=== PATIENT | female | born 1940 | race Caucasian/White ===

== ENCOUNTER → 2017-11-23 13:00 | Outpatient (CLI) | payer MEDICARE, SELFPAY ==
[2017-11-23 12:45] VITALS: BP 120/86; BMI 35.2
--- NOTE | 2017-11-23 13:03 | RAD_ITS ---
STUDY: X-RAY CHEST REASON FOR EXAM: Female, 77 years old. Cough TECHNIQUE: PA and lateral views of the chest. COMPARISON: Chest x-ray on November 05, 2015. FINDINGS: The lungs are clear and expanded. There is no demonstrated pleural abnormality. There is mild cardiac enlargement. Normal mediastinum and twila. Normal visualized pulmonary arteries. There is atherosclerotic calcification of the aortic arch with tortuosity. Normal visualized thoracic spine. Normal visualized ribs, clavicles, and shoulders. There is no demonstrated abnormality of the visualized soft tissue structures of the upper abdomen. RAD/Chest PA and Lateral IMPRESSION: Mild cardiomegaly. No signs of acute disease. Improved pulmonary vascular congestion since the last examination Electronically Signed: Jonh Vidales MD, FACR at 13:24 EST , Service support ,
== END ==
PROVIDERS: Family Provider Family Medicine Geriatric Medicine; PCP Family Medicine Geriatric Medicine; Visit Provider Physician Assistant
DX: R05 Cough (principal)
CPT/HCPCS: 71046

== ENCOUNTER → 2017-12-17 12:31 | Outpatient (CLI) | payer MEDICARE, SELFPAY ==
--- NOTE | 2017-12-17 12:33 | RAD_ITS ---
STUDY: X-RAY - ACUTE ABDOMINAL SERIES REASON FOR EXAM: Female, 77 years old. Lower abdominal pelvic pain and diarrhea. TECHNIQUE: Single view of the chest. Supine, and erect view(s) of the abdomen were obtained. COMPARISON: None. FINDINGS: Elevation of the right hemidiaphragm. There is an abundance of fecal material throughout the colon. Calcified splenic artery. Normal visualized osseous structures. Atherosclerotic calcification. RAD/Abd Inc Decub and/or Erect IMPRESSION: Large amount of fecal material is seen in the colon. Electronically Signed: Crow Avalos MD at 13:21 EST Tel [phone], Service support ,
== END ==
PROVIDERS: Family Provider Family Medicine Geriatric Medicine; PCP Family Medicine Geriatric Medicine; Visit Provider Family Medicine Geriatric Medicine
DX: R10.9 Unspecified abdominal pain (principal); R19.7 Diarrhea, unspecified
CPT/HCPCS: 74019

== ENCOUNTER → 2017-12-17 13:35 | Outpatient (CLI) | payer MEDICARE, SELFPAY ==
[2017-12-17 15:27] LABS: Absolute Lymphocyte Count 2.29 X10^3/ul (0.83-4.51); Absolute Neutrophil Count 5.5 X10^3/uL (2.0-7.7); Basophil# 0.04 X10^3/uL; Basophil% 0.4 % (0-1); Eosinophil# 0.74 X10^3/uL; Eosinophils% 7.9 % (0-5); Hematocrit 29.4 % (37-47); Hemoglobin 8.7 g/dl (12.0-15.0); Lymphocyte # 2.29 X10^3/ul (4.0); Lymphocyte % 24.4 % (19-41); Mean Corp Hgb Conc 29.6 g/gl (32-36); Mean Corpuscular Hgb 24.6 pg (27.0-32.0); Mean Corpuscular Volume 83.3 fL (81-99); Mean Platelet Vol. 12.4 fl (6.2-12.0); Monocyte# 0.84 X10^3/uL; Monocyte% 8.9 % (0-10); Neutrophil # 5.46 X10^3/uL (2.7-7.7); Neutrophil % 58.1 % (47-70); POSITIVE COUNT NO; POSITIVE DIFFERENTIAL NO; POSITIVE MORPHOLOGY NO; Platelet Count 214 K/mm3 (150-450); RBC Distribution Width CV 17.2 % (11.6-14.6); RBC Distribution Width SD 49.7 fl (35.1-43.9); Red Blood Count 3.53 M/mm3 (4.2-5.4); White Blood Count 9.4 K/mm3 (4.4-11.0)
[2017-12-17 15:48] LABS: ALB/GLOB Ratio 0.9 RATIO (0.9-2.4); AST(SGOT) 14 U/L (15-37); Alanine Aminotransfer ALT/SGPT 21 U/L (13-56); Albumin, Serum 2.9 g/dL (3.2-5.0); Alkaline Phosphatase 84 U/L (45-117); Anion Gap 12 (5-15); BUN 12 mg/dL (7-18); BUN/Creat Ratio 13.8 RATIO (10-20); Calcium,Total 7.9 mg/dL (8.5-10.1); Chloride 101 mmol/L (98-107); Creatinine, Serum 0.87 mg/dL (0.55-1.02); EST Glomerular Filtration Rate 67 mL/min (>60); Est Glom Filt Rate - Afr Amer 81 mL/min (>60); Globulin 3.3 g/dL (2.2-4.2); Glucose 388 mg/dL (74-106); Potassium 3.6 mmol/L (3.5-5.1); Protein, Total 6.2 g/dL (6.4-8.2); Sodium Level 137 mmol/L (136-145); Thyroid Stim Hormone (TSH) 0.36 uIU/mL (0.358-3.74)
== END ==
PROVIDERS: Family Provider Family Medicine Geriatric Medicine; PCP Family Medicine Geriatric Medicine; Visit Provider Family Medicine Geriatric Medicine
DX: R19.7 Diarrhea, unspecified (principal); R53.83 Other fatigue
CPT/HCPCS: 36415; 74019; 80053; 84443; 85025; 87086; 87088

== ENCOUNTER → 2017-12-18 09:51 | Outpatient (CLI) | payer MEDICARE, SELFPAY | PROVIDERS: Family Provider Family Medicine Geriatric Medicine; PCP Family Medicine Geriatric Medicine; Visit Provider Family Medicine Geriatric Medicine | DX: R19.7 Diarrhea, unspecified (principal); R53.83 Other fatigue | CPT/HCPCS: 82274; 83630; 87177; 87209; 87493; 87506 ==

== ENCOUNTER → 2018-01-07 12:18 | Outpatient (CLI) | payer MEDICARE, SELFPAY ==
[2018-01-07 13:22] LABS: Absolute Lymphocyte Count 2.15 X10^3/ul (0.83-4.51); Absolute Neutrophil Count 7.1 X10^3/uL (2.0-7.7); Basophil# 0.04 X10^3/uL; Basophil% 0.4 % (0-1); Hematocrit 33.4 % (37-47); Hemoglobin 10.1 g/dl (12.0-15.0); Lymphocyte # 2.15 X10^3/ul (4.0); Mean Corp Hgb Conc 30.2 g/gl (32-36); Mean Corpuscular Hgb 24.4 pg (27.0-32.0); Mean Corpuscular Volume 80.7 fL (81-99); Mean Platelet Vol. 12.1 fl (6.2-12.0); Monocyte% 6.8 % (0-10); Neutrophil # 7.13 X10^3/uL (2.7-7.7); Neutrophil % 69.5 % (47-70); Platelet Count 271 K/mm3 (150-450); RBC Distribution Width CV 16.9 % (11.6-14.6); RBC Distribution Width SD 49.5 fl (35.1-43.9); Red Blood Count 4.14 M/mm3 (4.2-5.4); White Blood Count 10.3 K/mm3 (4.4-11.0)
[2018-01-07 13:23] LABS: POSITIVE COUNT NO; POSITIVE DIFFERENTIAL NO; POSITIVE MORPHOLOGY NO
[2018-01-07 13:41] LABS: ALB/GLOB Ratio 1.1 RATIO (0.9-2.4); AST(SGOT) 12 U/L (15-37); Alanine Aminotransfer ALT/SGPT 20 U/L (13-56); Albumin, Serum 3.5 g/dL (3.2-5.0); Alkaline Phosphatase 102 U/L (45-117); Anion Gap 9 (5-15); BUN 19 mg/dL (7-18); BUN/Creat Ratio 22.7 RATIO (10-20); Calcium,Total 8.7 mg/dL (8.5-10.1); Chloride 99 mmol/L (98-107); Creatinine, Serum 0.84 mg/dL (0.55-1.02); EST Glomerular Filtration Rate 70 mL/min (>60); Est Glom Filt Rate - Afr Amer 85 mL/min (>60); Globulin 3.2 g/dL (2.2-4.2); Glucose 311 mg/dL (74-106); Potassium 4.3 mmol/L (3.5-5.1); Protein, Total 6.7 g/dL (6.4-8.2); Sodium Level 135 mmol/L (136-145)
[2018-01-08 09:40] LABS: Vitamin D,25 Hydroxy 12.1 ng/mL (29.95-100.01)
== END ==
PROVIDERS: Family Provider Family Medicine Geriatric Medicine; PCP Family Medicine Geriatric Medicine; Visit Provider Family Medicine Geriatric Medicine
DX: E11.9 Type 2 diabetes mellitus without complications (principal); I10 Essential (primary) hypertension; E55.9 Vitamin D deficiency, unspecified
CPT/HCPCS: 36415; 80053; 82306; 84443; 85025

== ENCOUNTER → 2018-01-20 16:19 | Outpatient (CLI) | payer MEDICARE, SELFPAY ==
--- NOTE | 2018-01-20 16:21 | RAD_ITS ---
STUDY: X-RAY - ABDOMEN/PELVIS REASON FOR EXAM: Female, 78 years old. Abdominal pain and diarrhea TECHNIQUE: Supine and upright views of the abdomen and pelvis were obtained. COMPARISON: December 17, 2017 FINDINGS: The lung bases were not imaged. There is an unremarkable bowel gas pattern. There is no demonstrated free abdominal air. There is no demonstrated abnormality of the major organs. There are diffuse vascular calcifications. The soft tissues are unremarkable. There are mild degenerative changes in the visualized spine. RAD/Abd Inc Decub and/or Erect IMPRESSION: No acute abnormalities are seen in the abdomen or pelvis. There is moderate stool in the colon. Electronically Signed: Nighat Del Rio MD at 16:08 EDT Tel Direct: [phone], Service support ,
== END ==
PROVIDERS: Family Provider Family Medicine Geriatric Medicine; PCP Family Medicine Geriatric Medicine; Visit Provider Family Medicine Geriatric Medicine
DX: R10.9 Unspecified abdominal pain (principal); R19.7 Diarrhea, unspecified
CPT/HCPCS: 74019

== ENCOUNTER → 2018-03-10 09:40 | Outpatient (CLI) | payer MEDICARE, SELFPAY ==
[2018-03-10 12:41] LABS: Absolute Neutrophil Count 9.2 X10^3/uL (2.0-7.7); Basophil# 0.05 X10^3/uL; Basophil% 0.4 % (0-1); Eosinophil# 0.31 X10^3/uL; Eosinophils% 2.4 % (0-5); Hematocrit 31.3 % (37-47); Lymphocyte % 18.1 % (19-41); Mean Corp Hgb Conc 28.8 g/gl (32-36); Mean Corpuscular Volume 80.1 fL (81-99); Monocyte# 0.77 X10^3/uL; Neutrophil # 9.24 X10^3/uL (2.7-7.7); Neutrophil % 72.6 % (47-70); Platelet Count 267 K/mm3 (150-450); RBC Distribution Width CV 17.6 % (11.6-14.6); RBC Distribution Width SD 49.3 fl (35.1-43.9); Red Blood Count 3.91 M/mm3 (4.2-5.4); White Blood Count 12.7 K/mm3 (4.4-11.0)
[2018-03-10 12:47] LABS: POSITIVE COUNT NO; POSITIVE DIFFERENTIAL NO; POSITIVE MORPHOLOGY NO
[2018-03-10 13:00] LABS: ALB/GLOB Ratio 0.8 RATIO (0.9-2.4); AST(SGOT) 14 U/L (15-37); Alanine Aminotransfer ALT/SGPT 23 U/L (13-56); Albumin, Serum 3.1 g/dL (3.2-5.0); Alkaline Phosphatase 95 U/L (45-117); Anion Gap 9 (5-15); BUN 15 mg/dL (7-18); BUN/Creat Ratio 18.9 RATIO (10-20); Calcium,Total 8.5 mg/dL (8.5-10.1); Chloride 102 mmol/L (98-107); Creatinine, Serum 0.79 mg/dL (0.55-1.02); EST Glomerular Filtration Rate 74 mL/min (>60); Est Glom Filt Rate - Afr Amer 90 mL/min (>60); Globulin 3.8 g/dL (2.2-4.2); Glucose 272 mg/dL (74-106); Potassium 4.7 mmol/L (3.5-5.1); Protein, Total 6.9 g/dL (6.4-8.2); Sodium Level 138 mmol/L (136-145); Thyroid Stim Hormone (TSH) 0.13 uIU/mL (0.358-3.74)
[2018-03-10 13:01] LABS: Vitamin D,25 Hydroxy 36.5 ng/mL (29.95-100.01)
[2018-03-12 09:22] LABS: T3 Uptake 38 % (30-39); T4 Free Direct 1.05 ng/dL (0.76-1.46)
== END ==
PROVIDERS: Family Provider Family Medicine Geriatric Medicine; PCP Family Medicine Geriatric Medicine; Visit Provider Family Medicine Geriatric Medicine
DX: E05.90 Thyrotoxicosis, unspecified without thyrotoxic crisis or storm (principal); I10 Essential (primary) hypertension; E11.9 Type 2 diabetes mellitus without complications; E55.9 Vitamin D deficiency, unspecified
CPT/HCPCS: 36415; 80053; 82306; 84439; 84443; 84479; 85025

== ENCOUNTER → 2018-04-09 12:50 | Outpatient (CLI) | payer MEDICARE, SELFPAY ==
--- NOTE | 2018-04-09 12:51 | ECHOD_ITS ---
Reason For Study: dyspnea/SOB Procedure This was a 2D Doppler, Color Flow transthoracic echocardiogram. The exam was of poor technical quality due to body habitus. The study was technically difficult. Exam performed in department. Left Ventricle Normal LV size. Segmental dysfunction with preserved ejection fraction (see wall motion). The estimated ejection fraction is 55 %. There is evidence of diastolic dysfunction. Basal inferoseptal: Hypokinetic. Basal anteroseptal: Hypokinetic. Mid-inferoseptal : Hypokinetic. Mid- anteroseptal : Hypokinetic. Septal [place] : Hypokinetic. Right Ventricle Normal RV size. Normal systolic function. Atria The left atrium is moderately enlarged. Normal right atrium. No doppler evidence for ASD. Mitral Valve There is mild mitral annular calcification. Mild focal mitral valve calcification of the anterior leaflet. Mild (1+) mitral valve insufficiency. Tricuspid Valve Normal tricuspid valve. Mild tricuspid valve insufficiency. Right ventricular systolic pressure estimated to be 35 mmHg. Aortic Valve Trisinus/trileaflet aortic valve. Mild focal aortic valve calcification. Pulmonic Valve The pulmonic valve is not well visualized. Trivial pulmonic valve insufficiency. Great Vessels Normal sized aortic root. Pericardium/Pleural No pericardial effusion. MMode/2D Measurements & Calculations LVIDd: 4.7 cm IVSd: 1.3 cm Ao root diam: 3.1 cm LVIDs: 3.6 cm LVPWd: 1.2 cm LA dimension: 4.6 cm RVDd: 3.1 cm FS: 23.1 % LAV(MOD-bp): 80.9 ml LA A4 area: 22.5 cm2 RA A4 area: 10.0 cm2 LAV(MOD-bp) Indexed: 45.6 ml/m2 LAV(MOD-sp2): 77.1 ml LAV(MOD-sp4): 77.2 ml Doppler Measurements & Calculations MV E max robel: 105.1 cm/sec Lat Peak E' Robel: 6.8 cm/sec Med Peak E' Robel: 3.8 cm/sec MV A max robel: 110.2 cm/sec E/E' lat: 15.5 E/E' med: 27.5 MV E/A: 0.95 Ao V2 max: 144.3 cm/sec LV V1 max: 91.4 cm/sec MR max robel: 607.0 cm/sec Ao max P.3 mmHg LV V1 max P.3 mmHg MR max P.4 mmHg PA V2 max: 80.6 cm/sec TR max robel: 280.8 cm/sec TR max P.9 mmHg Interpretation Summary The study was technically difficult. Segmental dysfunction with preserved ejection fraction (see wall motion). The estimated ejection fraction is 55 %. The left atrium is moderately enlarged. There is mild mitral annular calcification. Mild focal mitral valve calcification of the anterior leaflet. Mild (1+) mitral valve insufficiency. Mild tricuspid valve insufficiency. Mild focal aortic valve calcification. Trivial pulmonic valve insufficiency. Right ventricular systolic pressure estimated to be 35 mmHg. There is evidence of diastolic dysfunction. Ordering Physician: Alejandro Lanza Referring Physician: Riley Roca Chi Performed By: Mariah Mcconnell RDCS, RVT
--- NOTE | 2018-04-09 12:51 | CDU_ITS ---
Reason For Study: Carotid stenosis Rt. Velocities/BP Lt. Velocities/BP Prox CCA 70.9/11.7 cm/sec. Prox CCA 93.2/16.4 cm/sec. Mid CCA 69.8/12.3 cm/sec. Mid CCA 75.6/16.4 cm/sec. Dist CCA 58.6/11.1 cm/sec. Dist CCA 80.3/11.7 cm/sec. Prox ICA 137.0/23.6 cm/sec. Prox ICA 171.0/36.3 cm/sec. Mid ICA 115.0/21.7 cm/sec. Mid ICA 96.2/23.5 cm/sec. Dist ICA 102.0/21.9 cm/sec. Dist ICA 83.6/23.3 cm/sec. Rt. ICA/CCA = 2.0. Lt. ICA/CCA = 2.3. Prox ECA 150.0/0.0 cm/sec. Prox ECA 137.0/0.0 cm/sec. Rt. Vert. 56.9/15.2 cm/sec. Lt. Vert. 41.6/7.6 cm/sec. Right Extracranial There is intimal thickening but no significant atherosclerotic plaque noted in the right common carotid artery. There is heterogeneous, irregular atherosclerotic plaque noted in the right internal carotid artery. There is heterogeneous, irregular atherosclerotic plaque noted in the right external carotid artery. Antegrade flow is noted in the right vertebral artery. Left Extracranial There is heterogeneous, irregular atherosclerotic plaque noted in the left common carotid artery. There is heterogeneous, irregular atherosclerotic plaque noted in the left internal carotid artery. There is heterogeneous, irregular atherosclerotic plaque noted in the left external carotid artery. Antegrade flow is noted in the left vertebral artery. Procedure Carotid Duplex 24414. Exam performed in department. Interpretation Summary Moderate (50-69%) stenosis right extracranial internal carotid. Moderate (50-69%) stenosis left extracranial internal carotid. Flow within the vertebral arteries is antegrade bilaterally. Ordering Physician: Alejandro Lanza Referring Physician: Guicho Billy Chi Performed By: Alda Sigala RVT
--- NOTE | 2018-04-14 11:37 | LEAS ---
Arterial Study - Arterial Study Arterial Study: Date of scan 04/09/[address] House History patient presents with claudication Interpretation: Right lower extremity duplex showing a probable biphasic but a decreased waveform flow of the posterior tibial with an ALESSANDRO 0.92 in more of a biphasic peak waveform in the dorsalis pedis with an ALESSANDRO 1.40. Digit brachial index 0.42. Next Left lower extremity with a almost a triphasic waveform in the PT with an ALESSANDRO 1.1 and a more of a peak biphasic to almost triphasic of the dorsalis pedis with an ALESSANDRO of its noncompressible. Digit brachial index 0.59. Impression: 1. Right lower extremity with some evidence of occlusive disease with the ALESSANDRO 1.4 appears probably falsely elevated and not sure the accuracy of the 0.92. May wish further means with a further imaging of the leg. 2. Appears more of a better waveform noted on the left slightly but again has noncompressibility of the DP and ALESSANDRO may be false at the 1.1. Further imaging is needed next #3. Bilateral small vessel disease with TBI 0.42 on the right 0.59 on the left
--- NOTE | 2018-04-14 11:40 | LEAS_ITS ---
Arterial Study - Arterial Study Arterial Study: Date of scan 04/09/[address] House History patient presents with claudication Interpretation: Right lower extremity duplex showing a probable biphasic but a decreased waveform flow of the posterior tibial with an ALESSANDRO 0.92 in more of a biphasic peak waveform in the dorsalis pedis with an ALESSANDRO 1.40. Digit brachial index 0.42. Next Left lower extremity with a almost a triphasic waveform in the PT with an ALESSANDRO 1.1 and a more of a peak biphasic to almost triphasic of the dorsalis pedis with an ALESSANDRO of its noncompressible. Digit brachial index 0.59. Impression: 1. Right lower extremity with some evidence of occlusive disease with the ALESSANDRO 1.4 appears probably falsely elevated and not sure the accuracy of the 0.92. May wish further means with a further imaging of the leg. 2. Appears more of a better waveform noted on the left slightly but again has noncompressibility of the DP and ALESSANDRO may be false at the 1.1. Further imaging is needed next #3. Bilateral small vessel disease with TBI 0.42 on the right 0.59 on the left
== END ==
PROVIDERS: Family Provider Family Medicine Geriatric Medicine; PCP Family Medicine Geriatric Medicine; Visit Provider Internal Medicine Cardiovascular Disease
DX: R06.09 Other forms of dyspnea (principal); I44.7 Left bundle-branch block, unspecified; E78.5 Hyperlipidemia, unspecified; I25.10 Atherosclerotic heart disease of native coronary artery without angina pectoris; I73.9 Peripheral vascular disease, unspecified; I25.5 Ischemic cardiomyopathy; I65.23 Occlusion and stenosis of bilateral carotid arteries
CPT/HCPCS: 93306; 93880; 93922

== ENCOUNTER → 2018-05-03 16:44 | Outpatient (CLI) | payer MEDICARE, SELFPAY ==
[2018-05-03 17:43] LABS: Absolute Neutrophil Count 6.9 X10^3/uL (2.0-7.7); Basophil# 0.04 X10^3/uL; Basophil% 0.4 % (0-1); Eosinophil# 0.22 X10^3/uL; Hematocrit 29.1 % (37-47); Hemoglobin 8.5 g/dl (12.0-15.0); Lymphocyte % 25.9 % (19-41); Mean Corp Hgb Conc 29.2 g/gl (32-36); Mean Corpuscular Hgb 22.5 pg (27.0-32.0); Mean Corpuscular Volume 77.2 fL (81-99); Mean Platelet Vol. 11.6 fl (6.2-12.0); Monocyte# 0.85 X10^3/uL; Monocyte% 7.9 % (0-10); Neutrophil # 6.86 X10^3/uL (2.7-7.7); Neutrophil % 63.5 % (47-70); Platelet Count 268 K/mm3 (150-450); RBC Distribution Width CV 17.7 % (11.6-14.6); Red Blood Count 3.77 M/mm3 (4.2-5.4); White Blood Count 10.8 K/mm3 (4.4-11.0)
[2018-05-03 17:52] LABS: POSITIVE COUNT NO; POSITIVE DIFFERENTIAL NO; POSITIVE MORPHOLOGY NO
[2018-05-03 18:13] LABS: ALB/GLOB Ratio 0.8 RATIO (0.9-2.4); AST(SGOT) 13 U/L (15-37); Alanine Aminotransfer ALT/SGPT 19 U/L (13-56); Albumin, Serum 3.2 g/dL (3.2-5.0); Alkaline Phosphatase 93 U/L (45-117); Anion Gap 7 (5-15); BUN 13 mg/dL (7-18); Calcium,Total 8.7 mg/dL (8.5-10.1); Chloride 101 mmol/L (98-107); Creatinine, Serum 0.72 mg/dL (0.55-1.02); EST Glomerular Filtration Rate 83 mL/min (>60); Est Glom Filt Rate - Afr Amer 100 mL/min (>60); Ferritin 13 ng/mL (8-252); Glucose 181 mg/dL (74-106); Iron Binding Capacity,Total 393 ug/dL (250-450); Potassium 4.1 mmol/L (3.5-5.1); Protein, Total 7.2 g/dL (6.4-8.2); Sodium Level 135 mmol/L (136-145)
[2018-05-04 09:56] LABS: Iron 18 ug/dL (50-170)
== END ==
PROVIDERS: Family Provider Family Medicine Geriatric Medicine; PCP Family Medicine Geriatric Medicine; Visit Provider Family Medicine Geriatric Medicine
DX: D50.9 Iron deficiency anemia, unspecified (principal); I10 Essential (primary) hypertension
CPT/HCPCS: 36415; 80053; 82728; 83540; 83550; 83880; 84443; 85025

== ENCOUNTER → 2018-05-21 15:22 | Outpatient (CLI) | payer MEDICARE, SELFPAY ==
[2018-05-21 16:56] LABS: Absolute Lymphocyte Count 2.26 X10^3/ul (0.83-4.51); Absolute Neutrophil Count 8.3 X10^3/uL (2.0-7.7); Basophil# 0.03 X10^3/uL; Basophil% 0.3 % (0-1); Eosinophil# 0.13 X10^3/uL; Eosinophils% 1.1 % (0-5); Hematocrit 34.5 % (37-47); Hemoglobin 9.8 g/dl (12.0-15.0); Lymphocyte # 2.26 X10^3/ul (4.0); Lymphocyte % 19.8 % (19-41); Mean Corp Hgb Conc 28.4 g/gl (32-36); Mean Corpuscular Hgb 23.8 pg (27.0-32.0); Mean Corpuscular Volume 83.7 fL (81-99); Mean Platelet Vol. 11.5 fl (6.2-12.0); Monocyte# 0.65 X10^3/uL; Monocyte% 5.7 % (0-10); Neutrophil # 8.33 X10^3/uL (2.7-7.7); Neutrophil % 72.8 % (47-70); Platelet Count 312 K/mm3 (150-450); RBC Distribution Width CV 22.6 % (11.6-14.6); RBC Distribution Width SD 68.8 fl (35.1-43.9); Red Blood Count 4.12 M/mm3 (4.2-5.4); White Blood Count 11.4 K/mm3 (4.4-11.0)
[2018-05-21 17:09] LABS: ALB/GLOB Ratio 0.9 RATIO (0.9-2.4); AST(SGOT) 13 U/L (15-37); Alanine Aminotransfer ALT/SGPT 20 U/L (13-56); Albumin, Serum 3.3 g/dL (3.2-5.0); Alkaline Phosphatase 84 U/L (45-117); Anion Gap 8 (5-15); BUN 15 mg/dL (7-18); BUN/Creat Ratio 19.9 RATIO (10-20); Calcium,Total 9.2 mg/dL (8.5-10.1); Chloride 104 mmol/L (98-107); Creatinine, Serum 0.75 mg/dL (0.55-1.02); Differential Indicated SCAN CRITERIA MET; EST Glomerular Filtration Rate 79 mL/min (>60); Est Glom Filt Rate - Afr Amer 96 mL/min (>60); Ferritin 271 ng/mL (8-252); Globulin 3.6 g/dL (2.2-4.2); Glucose 159 mg/dL (74-106); Iron 39 ug/dL (50-170); Iron Binding Capacity,Total 314 ug/dL (250-450); PERCENT IRON SATURATION 12.4 % (15.0-55.0); POSITIVE COUNT NO; POSITIVE DIFFERENTIAL NO; POSITIVE MORPHOLOGY YES; Potassium 4.2 mmol/L (3.5-5.1); Protein, Total 6.9 g/dL (6.4-8.2); Sodium Level 141 mmol/L (136-145); Thyroid Stim Hormone (TSH) 0.13 uIU/mL (0.358-3.74)
[2018-05-21 17:35] LABS: Anisocytosis 1+; Differential Comment SCANNED; Microcytosis RARE; Ovalocyte RARE; Platelet Morphology LARGE
[2018-05-24 17:06] LABS: T3 Uptake 33 % (30-39); T4 Free Direct 0.93 ng/dL (0.76-1.46)
[2018-05-24 17:12] LABS: T7 / Free Thyroxin Index 0.3 (1.4-4.5)
== END ==
PROVIDERS: Family Provider Family Medicine Geriatric Medicine; PCP Family Medicine Geriatric Medicine; Visit Provider Family Medicine Geriatric Medicine
DX: D50.9 Iron deficiency anemia, unspecified (principal); E05.90 Thyrotoxicosis, unspecified without thyrotoxic crisis or storm
CPT/HCPCS: 36415; 80053; 82728; 83540; 83550; 84439; 84443; 84479; 85025

== ENCOUNTER → 2018-06-17 15:44 | Outpatient (CLI) | payer MEDICARE, SELFPAY ==
[2018-06-17 17:51] LABS: ALB/GLOB Ratio 0.9 RATIO (0.9-2.4); AST(SGOT) 17 U/L (15-37); Alanine Aminotransfer ALT/SGPT 23 U/L (13-56); Albumin, Serum 3.3 g/dL (3.2-5.0); Alkaline Phosphatase 90 U/L (45-117); Anion Gap 10 (5-15); BUN 17 mg/dL (7-18); BUN/Creat Ratio 20.7 RATIO (10-20); Calcium,Total 8.9 mg/dL (8.5-10.1); Chloride 102 mmol/L (98-107); Creatinine, Serum 0.82 mg/dL (0.55-1.02); EST Glomerular Filtration Rate 71 mL/min (>60); Est Glom Filt Rate - Afr Amer 86 mL/min (>60); Globulin 3.8 g/dL (2.2-4.2); Glucose 115 mg/dL (74-106); Potassium 4.3 mmol/L (3.5-5.1); Protein, Total 7.1 g/dL (6.4-8.2); Sodium Level 138 mmol/L (136-145)
[2018-06-17 18:00] LABS: Absolute Lymphocyte Count 2.78 X10^3/ul (0.83-4.51); Absolute Neutrophil Count 7.6 X10^3/uL (2.0-7.7); Basophil# 0.04 X10^3/uL; Basophil% 0.3 % (0-1); Eosinophil# 0.36 X10^3/uL; Eosinophils% 3.1 % (0-5); Hematocrit 36.5 % (37-47); Hemoglobin 10.7 g/dl (12.0-15.0); Lymphocyte # 2.78 X10^3/ul (4.0); Lymphocyte % 23.9 % (19-41); Mean Corp Hgb Conc 29.3 g/gl (32-36); Mean Corpuscular Hgb 24.8 pg (27.0-32.0); Mean Corpuscular Volume 84.7 fL (81-99); Mean Platelet Vol. 10.7 fl (6.2-12.0); Monocyte# 0.79 X10^3/uL; Monocyte% 6.8 % (0-10); Neutrophil # 7.63 X10^3/uL (2.7-7.7); Neutrophil % 65.6 % (47-70); Platelet Count 309 K/mm3 (150-450); RBC Distribution Width CV 20.1 % (11.6-14.6); RBC Distribution Width SD 62.8 fl (35.1-43.9); Red Blood Count 4.31 M/mm3 (4.2-5.4); White Blood Count 11.6 K/mm3 (4.4-11.0)
[2018-06-17 18:01] LABS: Differential Indicated SCAN CRITERIA MET; POSITIVE COUNT NO; POSITIVE DIFFERENTIAL NO; POSITIVE MORPHOLOGY YES
[2018-06-17 18:17] LABS: Anisocytosis RARE; Macrocytosis RARE; Ovalocyte RARE; Platelet Estimate ADEQUATE (ADEQ)
[2018-06-18 09:08] LABS: Vitamin D,25 Hydroxy 27.6 ng/mL (29.95-100.01)
== END ==
PROVIDERS: Family Provider Family Medicine Geriatric Medicine; PCP Family Medicine Geriatric Medicine; Visit Provider Family Medicine Geriatric Medicine
DX: E11.9 Type 2 diabetes mellitus without complications (principal); I10 Essential (primary) hypertension; E55.9 Vitamin D deficiency, unspecified
CPT/HCPCS: 36415; 80053; 82306; 84443; 85025

== ENCOUNTER → 2018-07-12 12:34 | Outpatient (CLI) | payer MEDICARE, SELFPAY ==
[2018-07-12 12:53] VITALS: BP 138/72; PULSE 66; RESP 18; TEMP 36.3; O2SAT 94; BMI 33.2
== END ==
PROVIDERS: Family Provider Family Medicine Geriatric Medicine; PCP Family Medicine Geriatric Medicine; Visit Provider Family Medicine Geriatric Medicine
DX: D50.9 Iron deficiency anemia, unspecified (principal); T45.4X5A Adverse effect of iron and its compounds, initial encounter
CPT/HCPCS: 96365; J1756; J7050; A4216

== ENCOUNTER → 2018-07-14 12:51 | Outpatient (CLI) | payer MEDICARE, SELFPAY ==
[2018-07-14 13:20] VITALS: BP 164/67; PULSE 73; RESP 16; TEMP 36.5; O2SAT 95; BMI 33.2
== END ==
PROVIDERS: Family Provider Family Medicine Geriatric Medicine; PCP Family Medicine Geriatric Medicine; Visit Provider Family Medicine Geriatric Medicine
DX: D50.9 Iron deficiency anemia, unspecified (principal); T45.4X5A Adverse effect of iron and its compounds, initial encounter
CPT/HCPCS: 96365; J1756; J7050; A4216

== ENCOUNTER → 2018-07-16 10:27 | Outpatient (CLI) | payer MEDICARE, SELFPAY ==
[2018-07-16 12:55] VITALS: BP 151/74; PULSE 59; RESP 16; TEMP 37.1; O2SAT 95; BMI 33.2
== END ==
PROVIDERS: Family Provider Family Medicine Geriatric Medicine; PCP Family Medicine Geriatric Medicine; Visit Provider Family Medicine Geriatric Medicine
DX: D50.9 Iron deficiency anemia, unspecified (principal); T45.4X5A Adverse effect of iron and its compounds, initial encounter
CPT/HCPCS: 96365; J1756; J7050; A4216

== ENCOUNTER → 2018-07-19 13:06 | Outpatient (CLI) | payer MEDICARE, SELFPAY ==
[2018-07-19 13:17] VITALS: BP 149/72; PULSE 75; RESP 18; TEMP 36.8; O2SAT 96; BMI 33.2
== END ==
PROVIDERS: Family Provider Family Medicine Geriatric Medicine; PCP Family Medicine Geriatric Medicine; Visit Provider Family Medicine Geriatric Medicine
DX: D50.9 Iron deficiency anemia, unspecified (principal); T45.4X5A Adverse effect of iron and its compounds, initial encounter
CPT/HCPCS: 96365; J1756; J7050; A4216

== ENCOUNTER → 2018-07-21 13:00 | Outpatient (CLI) | payer MEDICARE, SELFPAY ==
[2018-07-21 13:10] VITALS: BP 157/79; PULSE 62; RESP 16; TEMP 36.9; O2SAT 97; BMI 33.2
== END ==
PROVIDERS: Family Provider Family Medicine Geriatric Medicine; PCP Family Medicine Geriatric Medicine; Visit Provider Family Medicine Geriatric Medicine
DX: D50.9 Iron deficiency anemia, unspecified (principal); T45.4X5A Adverse effect of iron and its compounds, initial encounter
CPT/HCPCS: 96365; J1756; J7050; A4216

== ENCOUNTER → 2018-07-28 15:59 | Outpatient (CLI) | payer MEDICARE, SELFPAY ==
[2018-07-28 17:43] LABS: Iron 63 ug/dL (50-170); Iron Binding Capacity,Total 270 ug/dL (250-450)
[2018-07-28 17:44] LABS: Absolute Neutrophil Count 6.6 X10^3/uL (2.0-7.7); Basophil# 0.03 X10^3/uL; Basophil% 0.3 % (0-1); Eosinophil# 0.16 X10^3/uL; Eosinophils% 1.7 % (0-5); Hematocrit 38.3 % (37-47); Hemoglobin 11.3 g/dl (12.0-15.0); Lymphocyte % 18.3 % (19-41); Mean Corp Hgb Conc 29.5 g/gl (32-36); Mean Corpuscular Hgb 26.3 pg (27.0-32.0); Mean Corpuscular Volume 89.1 fL (81-99); Mean Platelet Vol. 11.7 fl (6.2-12.0); Monocyte# 0.72 X10^3/uL; Monocyte% 7.8 % (0-10); Neutrophil # 6.64 X10^3/uL (2.7-7.7); Neutrophil % 71.6 % (47-70); Platelet Count 268 K/mm3 (150-450); RBC Distribution Width CV 19.4 % (11.6-14.6); RBC Distribution Width SD 63.6 fl (35.1-43.9); White Blood Count 9.3 K/mm3 (4.4-11.0)
[2018-07-28 17:45] LABS: POSITIVE COUNT NO; POSITIVE DIFFERENTIAL NO; POSITIVE MORPHOLOGY NO
== END ==
PROVIDERS: Family Provider Family Medicine Geriatric Medicine; PCP Family Medicine Geriatric Medicine; Visit Provider Family Medicine Geriatric Medicine
DX: T45.4X5A Adverse effect of iron and its compounds, initial encounter (principal)
CPT/HCPCS: 36415; 83540; 83550; 85025

== ENCOUNTER 2018-07-31 17:01 | Emergency (ER) | payer MEDICARE, SELFPAY ==
[2018-07-31 17:02] VITALS: BP 122/88; PULSE 70; RESP 18; TEMP 36.9; O2SAT 99; BMI 33.3
[2018-07-31 18:03] LABS: D-Dimer Quantitative (DVT/PE) 0.43 FEU/ug/m (0.27-0.49)
--- NOTE | 2018-07-31 18:24 | ED.DCSUM_ITS ---
- ER Visit Summary Date of Service: 07/31/18 Chief Complaint: [Right leg pain] History of Present Illness: The patient is a 78 F [presents the emergency department with complaint of right-sided leg pain that started yesterday. Patient denies any trauma. She initially thought it might be a little bit swoll en or hot. Patient denies any chest pain or increasing shortness of breath. Patient states she always has a little bit of shortness of breath. Patient denies recent travel or surgery. Patient denies any pain in her back.] Physical Examination: [HEENT-PERRLA, EOMI. Cranial nerves II through XII grossly intact. TMs clear. Mucous membranes moist. No adenopathy. Cardiovascular-regular rate and rhythm without murmur or ectopy Lungs-clear to auscultation, chest wall stable without crepitus or subcu emphysema Abdomen-normoactive bowel sounds, soft, nontender, no rebound or rigidity, no peritoneal signs. Back exam-patient has no tenderness over the thoracic or lumbar spine. Deep tendon reflexes are plus out of 4 bilaterally at the patella and Achilles. Patient has normal L5 extension. Patient has normal sensation to light touch. Extremities-intact ?4, normal range of motion, normal pulses, atraumatic]. Right leg-patient has tenderness palpation over the lateral right calf. Patient has normal pulses dorsal pedal, posterior tibial, popliteal. No ropes or cords palpated. Negative Homans sign. Test Results: [D-dimer performed was normal at 0.43. Emergency Department Course and Treatment: [She was given 1 [place] p.o.] Treatment Plan: [Follow-up with primary care physician in 3-5 days.] Disposition: [Discharged home in stable condition Impression: [Right calf pain suspect strain] This note was generated with [employer] dictation software. It may contain incorrect words, spelling, and punctuation that were not noted in review of the chart prior to signing ED Disposition - Plan for ED Patient: Chief Complaint: Cellulitis Referrals: Riley Roca Chi, MD [Primary Care Provider] -
--- NOTE | 2018-07-31 18:25 | DCINST.ED_ITS ---
ED Disposition - Plan for ED Patient: Chief Complaint: Cellulitis Instructions: ED Strain Muscle Ext Prescriptions: Hydrocodone Bitart/Apap 5-325 [[place] 5MG-325MG] 1 tab PO Q4H PRN PRN 2 Days #10 tab PRN Reason: Pain Referrals: Riley Roca Chi, MD [Primary Care Provider] - 3-5 Days
[2018-07-31 18:31] VITALS: BP 127/83; PULSE 82; RESP 16; O2SAT 98
== END 2018-07-31 18:32 | disposition home or self-care (01) ==
LOC: ED 17:36
PROVIDERS: Emergency Provider Emergency Medicine; Family Provider Family Medicine Geriatric Medicine; PCP Family Medicine Geriatric Medicine
DX: M79.604 Pain in right leg (principal); R06.00 Dyspnea, unspecified; E78.00 Pure hypercholesterolemia, unspecified; I25.10 Atherosclerotic heart disease of native coronary artery without angina pectoris; E11.9 Type 2 diabetes mellitus without complications; I10 Essential (primary) hypertension; Z95.5 Presence of coronary angioplasty implant and graft; Z79.4 Long term (current) use of insulin
CPT/HCPCS: 85379; 99282

== ENCOUNTER → 2018-08-23 14:11 | Outpatient (CLI) | payer MEDICARE, SELFPAY ==
--- NOTE | 2018-08-23 14:15 | RAD_ITS ---
STUDY: X-RAY - UNILATERAL RIBS ( RIGHT ) WITH CHEST REASON FOR EXAM: Female, 78 years old. Continued right sided mid-level lateral rib pain status post fall 2 weeks ago TECHNIQUE - RIBS: 4 view(s) of the ribs. TECHNIQUE - CHEST: Single PA view of the chest. COMPARISON: 11/23/2017 chest x-ray FINDINGS - RIBS: There are recent appearing rib fractures right rib 4, 5 , 6 and 7. FINDINGS - CHEST: There is no visualized pneumothorax. There is slight elevation of the right hemidiaphragm which is similar to the prior study. There is still trace thickening of the right minor fissure also stable since prior study. There is no demonstrated pleural abnormality. There is mild cardiac enlargement. Normal mediastinum and twila. Normal visualized pulmonary arteries. There is atherosclerotic calcification of the aortic arch with tortuosity. There are diffuse degenerative changes of the visualized thoracic spine. Normal visualized ribs, clavicles, and shoulders. There is no demonstrated abnormality of the visualized soft tissue structures of the upper abdomen. RAD/Ribs Uni Min 3V w/PA Chest IMPRESSION: RIBS: Subacute fractures of right rib 4, 5, 6, and 7. No visualized pneumothorax. CHEST: No evidence of acute focal infiltrate. Mild cardiomegaly. Electronically Signed: Lauren Linder MD at 15:23 EST Tel , Service support ,
--- NOTE | 2018-08-23 14:30 | RAD_ITS ---
STUDY: X-RAY - ABDOMEN/PELVIS REASON FOR EXAM: Female, 78 years old. Diarrhea TECHNIQUE: Single AP view of the abdomen / pelvis. COMPARISON: January 20, 2018 KUB FINDINGS: Lung bases roughly the [id number]. There are nondistended appearing loops of large bowel with air-fluid levels. There are vascular calcifications in the left upper quadrant. There is no demonstrated free abdominal air. The liver splenic kidneys are mostly obscured. Normal soft tissue structures. There are diffuse degenerative changes of the visualized lumbar spine. RAD/Abdomen Single View IMPRESSION: Nondistended fluid-filled loops of large bowel compatible with the clinical history of diarrhea. This can be seen in gastroenteritis. Electronically Signed: Lauren Linder MD at 22:15 EST Tel , Service support ,
== END ==
PROVIDERS: Family Provider Family Medicine Geriatric Medicine; PCP Family Medicine Geriatric Medicine; Referring Provider Family Medicine Geriatric Medicine; Visit Provider Family Medicine Geriatric Medicine
DX: R07.89 Other chest pain (principal); R19.7 Diarrhea, unspecified
CPT/HCPCS: 71101; 74018

== ENCOUNTER → 2018-09-21 14:56 | Outpatient (CLI) | payer MEDICARE, SELFPAY ==
[2018-09-21 14:56] VITALS: BMI 35.2
[2018-09-21 16:44] LABS: Absolute Lymphocyte Count 1.58 X10^3/ul (0.83-4.51); Absolute Neutrophil Count 7.4 X10^3/uL (2.0-7.7); Basophil# 0.03 X10^3/uL; Basophil% 0.3 % (0-1); Eosinophil# 0.25 X10^3/uL; Eosinophils% 2.5 % (0-5); Hemoglobin 11.4 g/dl (12.0-15.0); Lymphocyte # 1.58 X10^3/ul (4.0); Lymphocyte % 15.7 % (19-41); Mean Corp Hgb Conc 30.8 g/gl (32-36); Mean Corpuscular Hgb 27.3 pg (27.0-32.0); Mean Corpuscular Volume 88.7 fL (81-99); Monocyte# 0.77 X10^3/uL; Monocyte% 7.7 % (0-10); Neutrophil # 7.37 X10^3/uL (2.7-7.7); Neutrophil % 73.4 % (47-70); Platelet Count 240 K/mm3 (150-450); RBC Distribution Width CV 15.9 % (11.6-14.6); RBC Distribution Width SD 51.3 fl (35.1-43.9); Red Blood Count 4.17 M/mm3 (4.2-5.4)
[2018-09-21 16:59] LABS: POSITIVE COUNT NO; POSITIVE DIFFERENTIAL NO; POSITIVE MORPHOLOGY NO
[2018-09-21 17:12] LABS: Vitamin D,25 Hydroxy 30.2 ng/mL (29.95-100.01)
[2018-09-21 17:17] LABS: AST(SGOT) 16 U/L (15-37); Alanine Aminotransfer ALT/SGPT 25 U/L (13-56); Albumin, Serum 3.4 g/dL (3.2-5.0); Alkaline Phosphatase 97 U/L (45-117); Anion Gap 9 (5-15); BUN 12 mg/dL (7-18); BUN/Creat Ratio 15.1 RATIO (10-20); Calcium,Total 8.6 mg/dL (8.5-10.1); Chloride 101 mmol/L (98-107); Creatinine, Serum 0.79 mg/dL (0.55-1.02); EST Glomerular Filtration Rate 74 mL/min (>60); Est Glom Filt Rate - Afr Amer 90 mL/min (>60); Globulin 3.4 g/dL (2.2-4.2); Glucose 200 mg/dL (74-106); Potassium 4.5 mmol/L (3.5-5.1); Protein, Total 6.8 g/dL (6.4-8.2); Sodium Level 138 mmol/L (136-145); Thyroid Stim Hormone (TSH) 0.17 uIU/mL (0.358-3.74); Uric Acid 5.1 mg/dL (2.6-6.0)
[2018-09-22 10:12] LABS: T3 Uptake 34 % (30-39); T4 Free Direct 0.97 ng/dL (0.76-1.46)
== END ==
PROVIDERS: Family Provider Family Medicine Geriatric Medicine; PCP Family Medicine Geriatric Medicine; Visit Provider Family Medicine Geriatric Medicine
DX: E11.9 Type 2 diabetes mellitus without complications (principal); E55.9 Vitamin D deficiency, unspecified; M10.9 Gout, unspecified; I10 Essential (primary) hypertension
CPT/HCPCS: 36415; 80053; 82306; 84439; 84443; 84479; 84550; 85025

== ENCOUNTER → 2018-10-13 16:07 | Outpatient (CLI) | payer MEDICARE, SELFPAY ==
[2018-09-21 14:56] VITALS: BMI 35.2
== END ==
PROVIDERS: Family Provider Family Medicine Geriatric Medicine; PCP Family Medicine Geriatric Medicine; Visit Provider Family Medicine Geriatric Medicine
DX: N39.0 Urinary tract infection, site not specified (principal)
CPT/HCPCS: 87086

== ENCOUNTER → 2018-10-13 16:10 | Outpatient (CLI) | payer MEDICARE, SELFPAY ==
[2018-09-21 14:56] VITALS: BMI 35.2
--- NOTE | 2018-10-13 16:22 | RAD_ITS ---
STUDY: X-RAY - UNILATERAL RIBS ( RIGHT ) WITH CHEST REASON FOR EXAM: Female, 78 years old. Anterior right rib pain after falling. TECHNIQUE - RIBS: 4 view(s) of the ribs. TECHNIQUE - CHEST: 1 view COMPARISON: Prior exam of August 23, 2018 FINDINGS - RIBS: Healed prior fractures of the fourth, fifth, sixth and seventh ribs. Negative for acute rib fracture. FINDINGS - CHEST: The lungs are clear and expanded. There is no demonstrated pleural abnormality. Normal size heart. Normal mediastinum and twila. Normal visualized pulmonary arteries. Normal visualized aortic arch and descending thoracic aorta. Normal visualized thoracic spine. Normal visualized ribs, clavicles, and shoulders. There is no demonstrated abnormality of the visualized soft tissue structures of the upper abdomen. RAD/Ribs Uni Min 3V w/PA Chest IMPRESSION: RIBS: Negative for acute rib fracture. CHEST: No acute cardiopulmonary findings or changes. Electronically Signed: Aurelia Oswald MD at 17:00 EST , Service support ,
--- NOTE | 2018-10-13 16:23 | CT_ITS ---
STUDY: CT BRAIN WITHOUT CONTRAST REASON FOR EXAM: Female, 78 years old. Fall. Altered mental status RADIATION DOSAGE (If Supplied By Facility): CTDIvol = ( 44.99 ) mGy, DLP = ( 796.11 ) mGycm TECHNIQUE: Transaxial CT imaging of the brain was performed without administration of intravenous contrast material. Individualized dose optimization techniques were used for this CT. COMPARISON: None. FINDINGS: Normal soft tissue structures. There is hyperostosis frontalis internus. Normal size ventricles and extra-axial spaces for the patient's age. There are mild areas of decreased attenuation within the white matter tracts of the supratentorial brain, consistent with microvascular disease changes. Normal basal ganglia and thalami. Normal brainstem. Normal cerebellum. There is no intracranial hemorrhage. There are no findings of an acute ischemic infarction. There are atherosclerotic calcifications. Normal visualized paranasal sinuses. CT/Brain/Head without Contrast IMPRESSION: Chronic involutional changes of the brain. No hemorrhage. Electronically Signed: Caleb Verde MD at 17:22 EST , Service support ,
[2018-10-13 17:55] LABS: Absolute Lymphocyte Count 2.97 X10^3/ul (0.83-4.51); Absolute Neutrophil Count 8.2 X10^3/uL (2.0-7.7); Basophil# 0.05 X10^3/uL; Basophil% 0.4 % (0-1); Eosinophil# 0.38 X10^3/uL; Eosinophils% 3.1 % (0-5); Hematocrit 39.7 % (37-47); Lymphocyte # 2.97 X10^3/ul (4.0); Mean Corp Hgb Conc 30.2 g/gl (32-36); Mean Corpuscular Volume 89.2 fL (81-99); Mean Platelet Vol. 11.6 fl (6.2-12.0); Monocyte# 0.72 X10^3/uL; Monocyte% 5.8 % (0-10); Neutrophil # 8.19 X10^3/uL (2.7-7.7); Neutrophil % 66.4 % (47-70); Platelet Count 343 K/mm3 (150-450); RBC Distribution Width CV 15.1 % (11.6-14.6); Red Blood Count 4.45 M/mm3 (4.2-5.4); White Blood Count 12.4 K/mm3 (4.4-11.0)
[2018-10-13 17:58] LABS: POSITIVE COUNT NO; POSITIVE DIFFERENTIAL NO; POSITIVE MORPHOLOGY NO
[2018-10-13 18:08] LABS: Anion Gap 8 (5-15); BUN 15 mg/dL (7-18); BUN/Creat Ratio 20.6 RATIO (10-20); Calcium,Total 9.4 mg/dL (8.5-10.1); Chloride 100 mmol/L (98-107); Creatinine, Serum 0.73 mg/dL (0.55-1.02); EST Glomerular Filtration Rate 82 mL/min (>60); Est Glom Filt Rate - Afr Amer 99 mL/min (>60); Glucose 172 mg/dL (74-106); Potassium 4.6 mmol/L (3.5-5.1); Sodium Level 139 mmol/L (136-145)
[2018-10-13 18:45] LABS: Erythrocyte Sedimentation Rate 45 mm/hr (0-30)
== END ==
PROVIDERS: Family Provider Family Medicine Geriatric Medicine; PCP Family Medicine Geriatric Medicine; Referring Provider Family Medicine Geriatric Medicine; Visit Provider Family Medicine Geriatric Medicine
DX: M31.6 Other giant cell arteritis (principal); R41.82 Altered mental status, unspecified
CPT/HCPCS: 36415; 70450; 71101; 80048; 85025; 85652; 86140; 87086; 87088

== ENCOUNTER → 2018-10-27 08:06 | Outpatient (CLI) | payer MEDICARE, SELFPAY ==
[2018-09-21 14:56] VITALS: BMI 35.2
--- NOTE | 2018-10-27 08:12 | NM_ITS ---
CLINICAL: 78 year old female with history of subclinical hypothyroidism. I-123 THYROID UPTAKE and SCAN COMPARISON: Thyroid scan and uptake report 05/12/2011 FINDINGS: The patient was administered a 306 uCi I-123 capsule by mouth. The 4-hour I-123 radioactive iodine thyroidal uptake was calculated to be 7.0 % (normal 5 to 25 %). The 24-hour I-123 radioactive iodine thyroidal uptake was calculated to be 16.7 % (normal 5 to 40 %). The I-123 thyroid scan demonstrates homogeneous radiopharmaceutical concentration throughout both lobes of a U-shaped thyroid gland. There are no colloidal parenchymal hypofunctioning cold nodules noted in either lobe of the thyroid gland. NM/Thyroid Uptake Single or Mult IMPRESSION: 1. NORMAL 4- and 24-hour I-123 radioactive iodine thyroidal uptakes. 2. 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 (Lilliana et al, J Nucl Med 32: 1455, 1990). 3. No hypofunctioning-cold nodules are identified. Electronically Signed: Yann Obando DO at 22:30 EST Tel , Service support ,
== END ==
PROVIDERS: Family Provider Family Medicine Geriatric Medicine; PCP Family Medicine Geriatric Medicine; Referring Provider Family Medicine Geriatric Medicine; Visit Provider Family Medicine Geriatric Medicine
DX: E03.9 Hypothyroidism, unspecified (principal)
CPT/HCPCS: 78012; A9516

== ENCOUNTER → 2018-11-05 11:56 | Outpatient (CLI) | payer MEDICARE, SELFPAY ==
[2018-09-21 14:56] VITALS: BMI 35.2
--- OUTSIDE RECORDS SUMMARY | 2019-01-09 23:48 | XMS RPT_ITS ---
:1940 Author Organization [place] Support Name Relationship Address Phone SHANIA, DEWAYNE Unavailable [address] + [place] [address] R Unavailable Unavailable Unavailable STACK, MARCIA Unavailable [address] [place] [address] STACK, MARCIA Unavailable Unavailable + SHANIA, DEWAYNE Unavailable [address] + [place] [address] R Unavailable Unavailable Unavailable STACK, MARCIA Unavailable [address] + [address] [place] [address] SHANIA, DEWAYNE Unavailable [address] + [place] [address] R Unavailable Unavailable Unavailable STACK, MARCIA Unavailable [address] + [address] [place] [address] SHANIA, DEWAYNE Unavailable [address] + [place] [address] R Unavailable Unavailable Unavailable STACK, MARCIA Unavailable [address] + [address] [place] [address] SHANIA, DEWAYNE Unavailable [address] + [place] [address] R Unavailable Unavailable Unavailable STACK, MARCIA Unavailable [address] + [address] [place] [address] SHANIA, DEWAYNE Unavailable [address] + [place] [address] R Unavailable Unavailable Unavailable STACK, MARCIA Unavailable [address] + [address] [place] [address] SHANIA, DEWAYNE Unavailable [address] + [place] [address] R Unavailable Unavailable Unavailable STACK, MARCIA Unavailable [address] [place] [address] SHANIA, DEWAYNE Unavailable [address] + [place] [address] R Unavailable Unavailable Unavailable STACK, MARCIA Unavailable [address] [place] [address] SHANIA, DEWAYNE Unavailable [address] + [place] [address] R Unavailable Unavailable Unavailable STACK, MARCIA Unavailable [address] + [address] [place] [address] SHANIA, DEWAYNE Unavailable [address] + [place] [address] R Unavailable Unavailable Unavailable STACK, MARCIA Unavailable [address] + [address] [place] [address] SHANIA, DEWAYNE Unavailable [address] + [place] [address] R Unavailable Unavailable Unavailable STACK, MARCIA Unavailable [address] [place] [address] SHANIA, DEWAYNE Unavailable [address] + [place] [address] R Unavailable Unavailable Unavailable STACK, MARCIA Unavailable [address] + [address] [place] [address] SHANIA, DEWAYNE Unavailable [address] + [place] [address] R Unavailable Unavailable Unavailable STACK, MARCIA Unavailable [address] + [address] [place] [address] SHANIA, DEWAYNE Unavailable [address] + [place] [address] R Unavailable Unavailable Unavailable STACK, MARCIA Unavailable [address] + [address] [place] [address] SHANIA, DEWAYNE Unavailable [address] + [place] [address] R Unavailable Unavailable Unavailable STACK, MARCIA Unavailable [address] [place] [address] SHANIA, DEWAYNE Unavailable [address] + [facility] [place] [address] R Unavailable Unavailable Unavailable STACK, MARCIA Unavailable [address] [place] [address] SHANIA, DEWAYNE Unavailable [address] [phone] [place] [address] R Unavailable Unavailable Unavailable STACK, MARCIA Unavailable [address] [phone] [address] [place] [address] SHANIA, DEWAYNE Unavailable [address] + [place] [address] R Unavailable Unavailable Unavailable STACK, MARCIA Unavailable [address] + [address] [place] [address] SHANIA, DEWAYNE Unavailable [address] + [place] [address] R Unavailable Unavailable Unavailable STACK, MARCIA Unavailable [address] [place] [address] SHANIA, DEWAYNE Unavailable [address] + [facility] [place] [place] [address] R Unavailable Unavailable Unavailable STACK, MARCIA Unavailable [address] [place] [address] SHANIA, DEWAYNE Unavailable [address] + [place] [address] R Unavailable Unavailable Unavailable STACK, MARCIA Unavailable [address] + [address] [place] [address] SHANIA, DEWAYNE Unavailable [address] [phone] [place] [address] R Unavailable Unavailable Unavailable STACK, MARCIA Unavailable [address] [phone] [address] [place] [address] SHANIA, DEWAYNE Unavailable [address] [phone] [place] [address] R Unavailable Unavailable Unavailable STACK, MARCIA Unavailable [address] [phone] [address] [place] [address] SHANIA, DEWAYNE Unavailable [address] [phone] [address] R Unavailable Unavailable Unavailable STACK, MARCIA Unavailable [address] [phone] [address] [place] [address] SHANIA, DEWAYNE Unavailable [address] [phone] [place] [address] R Unavailable Unavailable Unavailable STACK, MARCIA Unavailable [address] [phone] [address] [place] [address] SHANIA, DEWAYNE Unavailable [address] [phone] [place] [address] R Unavailable Unavailable Unavailable STACK, MARCIA Unavailable [address] [phone] [address] [place] [address] SHANIA, DEWAYNE Unavailable [address] [phone] [place] [address] R Unavailable Unavailable Unavailable STACK, MARCIA Unavailable [address] [phone] [address] [place] [address] SHANIA, DEWAYNE Unavailable [address] [phone] [place] [address] R Unavailable Unavailable Unavailable STACK, MARCIA Unavailable [address] [phone] [address] [place] [address] SHANIA, DEWAYNE Unavailable [address] [phone] [place] [address] R Unavailable Unavailable Unavailable STACK, MARCIA Unavailable [address] [phone] [address] [place] [address] SHANIA, DEWAYNE Unavailable [address] [phone] [place] [address] R Unavailable Unavailable Unavailable STACK, MARCIA Unavailable [address] [phone] [address] [place] [address] SHANIA, DEWAYNE Unavailable [address] [phone] [place] [address] R Unavailable Unavailable Unavailable STACK, MARCIA Unavailable [address] [phone] [address] [place] [address] SHANIA, DEWAYNE Unavailable [address] [phone] [place] [address] R Unavailable Unavailable Unavailable STACK, MARCIA Unavailable [address] [phone] [address] [place] [address] SHANIA, DEWAYNE Unavailable [address] [phone] [place] [address] R Unavailable Unavailable Unavailable STACK, MARCIA Unavailable [address] [phone] [address] [place] [address] SHANIA, DEWAYNE Unavailable [address] [phone] [place] [address] R Unavailable Unavailable Unavailable STACK, MARCIA Unavailable [address] [phone] [address] [place] [address] Care Team Providers Name Role Phone Wu House Attending Unavailable Abelino, Riley-Chi Primary Care Unavailable Abelino, Riley Chi Attending Unavailable Abelino, Riley Chi Referring Unavailable Abelino, Riley Chi Primary Care Unavailable Abelino, Riley Chi Attending Unavailable Abelino, Riley Chi Primary Care Unavailable Neto Roman Attending Unavailable Abelino, Riley Chi Referring Unavailable Abelino, Riley Chi Primary Care Unavailable Abelino, Riley Chi Attending Unavailable Abelino, Riley Chi Primary Care Unavailable Abelino, Riley Chi Attending Unavailable Abelino, Riley Chi Primary Care Unavailable Alejandro Lanza Attending Unavailable Abelino, Riley Chi Attending Unavailable Abelino, Riley Chi Primary Care Unavailable Tricia Rodríguez Attending Unavailable Abelino, Riley Chi Attending Unavailable Abelino, Riley Chi Primary Care Unavailable Abelino, Irley Chi Attending Unavailable Abelino, Riley Chi Referring Unavailable Abelino, Riley Chi Primary Care Unavailable Abelino, Riley Chi Attending Unavailable Abelino, Riley Chi Primary Care Unavailable Neto Roman Attending Unavailable Abelino, Riley Chi Primary Care Unavailable Guicho Billy Attending Unavailable Abelino, Riley Chi Referring Unavailable Abelino, Riley Chi Attending Unavailable Abelino, Riley Chi Referring Unavailable Abelino, Riley Chi Primary Care Unavailable Abelino, Riley Chi Attending Unavailable Abelino, Riley Chi Primary Care Unavailable Abelino, Riely Chi Referring Unavailable Abelino, Riley Chi Attending Unavailable Abelino, Riley Chi Primary Care Unavailable Alejandro Lanza Attending Unavailable Abelino, Riley Chi Referring Unavailable Abelino, Riley Chi Attending Unavailable Abelino, Riley Chi Referring Unavailable Abelino, Riley Chi Primary Care Unavailable Bibi Carlos Attending Unavailable Abelino, Riley Chi Attending Unavailable Abelino, Riley Chi Primary Care Unavailable Guciho Billy Attending Unavailable Moodispaw, Guicho Referring Unavailable Abelino, Riley Chi Primary Care Unavailable Roof, Alejandro H Attending Unavailable Abelino, Riley Chi Referring Unavailable Abelino, Riley Chi Attending Unavailable Abelino, Riley Chi Primary Care Unavailable Abelino, Riley Chi Attending Unavailable Abelino, Riley Chi Primary Care Unavailable Abelino, Riley Chi Attending Unavailable Abelino, Riley Chi Referring Unavailable Abelino, Riley Chi Primary Care Unavailable Abelino, Riley Chi Primary Care Unavailable Ungur, Remus Attending Unavailable Abelino, Riley Chi Attending Unavailable Abelino, Riley Chi Referring Unavailable Abelino, Riley Chi Primary Care Unavailable Abelino, Riley Chi Attending Unavailable Abelino, Riley Chi Referring Unavailable Abelino, Riley Chi Primary Care Unavailable Abelino, Riley Chi Attending Unavailable Abelino, Riley Chi Referring Unavailable Abelino, Riley Chi Primary Care Unavailable Abelino, Riley Chi Attending Unavailable Abelino, Riley Chi Referring Unavailable Abelino, Riley Chi Primary Care Unavailable Roof, Alejandro H Attending Unavailable Abelino, Riley Chi Referring Unavailable Abelino, Riley Chi Primary Care Unavailable Abelino, Riley Chi Attending Unavailable Abelino, Riley Chi Referring Unavailable Ableino, Riley Chi Primary Care Unavailable [place]ich[place] Billy Attending Unavailable Abelino, Riley Chi Attending Unavailable Abelino, Riley Chi Primary Care Unavailable PROBLEMS PROBLEMS DATE TYPE CONDITION / CODE ATTENDING STATUS SOURCE 11/05/2018 Unknown N39.0 - Urinary Abelino, Riley Chi Active [facility] tract infection, Community site not specified / Hospital N39.0(ICD-10) Repository 10/29/2018 Admitting Unknown / Wu House Active [facility] Medical diagnosis UNK(Unknown) A. 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 / Community M31.6(ICD-10) Hospital Repository 08/23/2018 Unknown R19.7 - Diarrhea, Abelino, Riley Chi Active [facility] unspecified / Community R19.7(ICD-10) Hospital Repository 08/23/2018 Unknown R07.89 - Other chest Abelino, Riley Chi Active [facility] pain / Community R07.89(ICD-10) Hospital Repository 07/31/2018 Unknown M79.606 - Pain in Ungur, Remus Active [place] leg, unspecified / Community M79.606(ICD-10) Hospital Repository 07/28/2018 Unknown D64.9 - Anemia, Abelino, Riley Chi Active [place] unspecified / Community D64.9(ICD-10) Hospital Repository 07/19/2018 Unknown D50.9 - Iron Abelino, Riley Chi Active [place] deficiency anemia, Community unspecified / Hospital D50.9(ICD-10) Repository 04/20/2018 Unknown R06.09 - Other forms Moodispaw, Active [place] of dyspnea / [facility] R06.09(ICD-10) Hospital Repository 04/20/2018 Unknown I73.9 - Peripheral Mood[place], Active [place] vascular disease, [facility] unspecified / Hospital I73.9(ICD-10) Repository 03/31/2018 Unknown I44.7 - Left Roof, Alejandro H Active [facility] bundle-branch block, Community unspecified / Hospital I44.7(ICD-10) Repository 03/31/2018 Unknown R06.00 - Dyspnea, Roof, Alejandro Lacy Active [facility] unspecified / Community R06.00(ICD-10) Hospital Repository 03/31/2018 Unknown E78.5 - Roof, Alejandro Lacy Active [facility] Hyperlipidemia, Community unspecified / Hospital E78.5(ICD-10) Repository 03/31/2018 Unknown 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, 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 / Community I25.5(ICD-10) Hospital Repository 03/31/2018 Unknown 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, 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 / I25.10(ICD-10) 03/31/2018 Unknown I65.23 - Occlusion Roof, Alejandro Lacy Active [facility] and stenosis of [facility] bilateral carotid Hospital arteries / Repository I65.23(ICD-10) 01/07/2018 Unknown E11.9 - Type 2 Abelino, Riley Chi Active [place] diabetes mellitus Community without Hospital complications / Repository E11.9(ICD-10) 01/07/2018 Unknown E55.9 - Vitamin D Abelino, Riley Chi Active [place] deficiency, Community unspecified / Hospital E55.9(ICD-10) Repository 01/07/2018 Unknown I10 - Essential Abelino, Riley Chi Active [facility] (primary) Community hypertension / Hospital I10(ICD-10) Repository 12/17/2017 Unknown R53.83 - Other Abelino, Riley Chi Active [place] fatigue / Community R53.83(ICD-10) Hospital Repository 12/17/2017 Unknown R10.9 - Unspecified Riley iLang Chi Active [facility] abdominal pain / Community R10.9(ICD-10) Hospital Repository 11/23/2017 Unknown R05 - Cough / Neto Roman Active [place] R05(ICD-10) [facility] Hospital Repository 11/23/2017 Unknown J40 - Bronchitis, Neto Roman Active [place] not specified as Community acute or chronic / Hospital J40(ICD-10) Repository PROCEDURES PROCEDURES No Procedure Records FoundRESULTS RESULTS Observed: 11/05/2018 Status: F Source: [place] CULTURE, UR[place] 11:57 [place] [facility] [place] U[place] Culture Below infection level. ORGANISM 1: Mixed Gram Positive Organisms Holt Count 1000-10,000 Performed By: #### M100.0650 #### [facility] [address] [place], [address] SURG Observed: 10/29/2018 Status: F Source: [facility] 12:34 PM [facility] REPOSITORY Patient: LARRY MALDONADO SPECIMEN: [id number] Collection Date: 10/29/181233 Received: 10/29/18 Status: ISSAC Zeng Dr.: Wu House MD Ph# Othr. : Mulu Liang Material for Examination: A RIGHT TEMPORAL ARTERY BIOPSY, R/O GIANT CELL ARTERITIS B LEFT TEMPORAL ARTERY BIOPSY, R/O GIANT CELL ARTERITIS PRE-OP DIAGNOSIS: HEADACHES POST-OP DIAGNOSIS: SAME SURGICAL PROCEDURE: BILATERAL TEMPORAL ARTERY BIOPSIES DIAGNOSIS A. Right temporal artery biopsy (rule out giant cell arteritis): Segment of artery with atherosclerosis and medial calcification. No significant inflammation or giant cells identified. B. Left temporal artery biopsy (rule out giant cell arteritis): Segment of artery with atherosclerosis and medial calcification. No significant inflammation or giant cells identified. COMMENT Multiple sections of the arteries have been examined. A total of 50 sections of specimen A and 60 sections of specimen B have been examined. No significant inflammation or giant cells are identified in the sections. Due to focal nature of the disease negative biopsy does not rule out the disease. Clinical correlation is recommended. GROSS DESCRIPTION A. The specimen is received in formalin and labeled with the patient's name, ID and designated right temporal artery biopsy, rule out giant cell arteritis. The specimen consists of a lassiter-red thin portion of tissue, 1.6 x 0.1 x 0.1 cm. Due to the thin nature of the specimen, a definite lumen cannot be grossly identified. Entirely submitted in cassette A1. A VVG stain is ordered. B. The specimen is received in formalin and labeled with the patient's name, ID and designated left temporal artery biopsy, rule out giant cell arteritis, is a lassiter-red thin portion of tissue, 2.0 x 0.1 x 0.1 cm. Due to the thin nature of the specimen, a definite lumen cannot be identified. Entirely submitted in cassette B1. A VVG stain is ordered. MICROSCOPIC DESCRIPTION 10 Neo and 2 elastic stained sections examined. Elastic stained sections show intact internal elastic lamina. [facility] NAME: LARRY MALDONADO Pathology and Laboratory Medicine UNIT#: [id number] LOC: [facility] Garbage Worker: Lorenza Cross M.D. [facility]#: [id number] [facility]ED[facility] : 40 AGE/SEX: 78/F ORD.Wu Bhardwaj MD CONTINUED ON NEXT PAGE Patient: LARRY MALDONADO Unit#: [id number] (continued) SPECIMEN: [id number] COPIES TO: Wu House MD, Tai-Chi Signed Verified/Reviewed by JUDY BAHENA M.D. 11/01/18 This dictation was created using voice recognition software. Phonetic and/or minor grammatical errors may exist. [facility] NAME: LARRY MALDONADO Pathology and Laboratory Medicine UNIT#: [id number] LOC: [facility] Garbage Worker: Lorenza Cross M.D. [facility] [id number] ROOM/BED: [facility] : 40 AGE/SEX: 78/F ORD.Wu Bhardwaj MD END OF REPORT GLUCOSE METER Collected: 10/29/2018 Status: F Source: [facility] 11:12 AM [facility] REPOSITORY TYPE CODE TESTS RESULT OUT OF RANGE REFERENCE UNITS LAB L500.43090 85-125 MG/DL Normal GLUCOSE METER 96 OR Observed: 10/29/2018 Status: UNK Source: [facility] 9:50 AM [facility] REPOSITORY DATE OF SERVICE: 10/29/2018 PREOPERATIVE DIAGNOSIS: Headaches with elevated CRP and sed rate with concern for giant cell arteritis. POSTOPERATIVE DIAGNOSIS: Headaches with elevated CRP and sed rate with concern for giant cell arteritis. OPERATION: Bilateral temporal artery biopsy. SURGEON: Wu House MD INDICATIONS: The patient with some increasing headaches and workup for this found sed rate and CRP were elevated, was given some steroids and improved with this, was referred for temporal artery biopsy and comes in for this. The risks, benefits, alternatives discussed. She agreed to proceed. OPERATION IN DETAIL: The patient brought to the operating room, underwent the appropriate time-out consent, underwent sedation. Was prepped and draped in a sterile fashion and we first on the right side, you could feel the temporal artery through there. We anesthetized at the skin. We then dissected down and through the layer of the fascia, then down onto the temporal artery. We freed this up over the appropriate length, we ligated branches between either the Bovie, the smaller ones, or between a 3-0 silk tie. When we had a good segment, we ligated distally and proximally with 3-0 silk ties, divided out the vein, sent it for pathology. There was good hemostasis. We closed with interrupted 3-0 Vicryl, 4-0 Monocryl and Dermabond. We then went to the left side again, you could feel the strong pulse throughout there, we marked out the skin and then anesthetized there. We then made an incision, dissected down, again through that outer fascia, and then onto the temporal artery. We again freed it up over, a little over a 2 cm length, ligated branches between 3-0 silk ties. We then ligated proximally distally and we then removed out the specimen again, sent that for pathology. There was good hemostasis. We closed with interrupted 3-0 Vicryl, 4-0 Monocryl. Dermabond was placed. She was brought to recovery in stable condition. SEDATION: This 78-year-old female underwent moderate sedation given by Dr. Wu House. She was monitored with EKG, blood pressure and pulse oximetry for over the 30 minutes of the procedure. She was given fentanyl and Versed. She tolerated this well. She was monitored with EKG, blood pressure, and pulse oximetry. See the EMR for the complete record. [facility] PATIENT NAME: LARRY MALDONADO Dr. Angelo MEDICAL REC #: [id number] [place] [address] ADMIT DATE: DISCHARGE DATE: OPERATIVE REPORT ATTENDING PHY: Wu House MD Wu House MD [id number] SSI File#: [id number] Verified/Reviewed by 11/01/[address] [facility] PATIENT NAME: LARRY MALDONADO Dr. Angelo MEDICAL REC #: [id number] [place] [address] ADMIT DATE: DISCHARGE DATE: OPERATIVE REPORT ATTENDING PHY: Wu House MD THYROID UPTAKE Observed: 10/27/2018 Status: F Source: [place] SINGLE OR MULT 8:13 AM [facility] [place] [facility] Imaging Services [address] [place] [address] Thyroid Uptake Single or Mult MR#: [id number] Acct: [id number] Name: LARRY MALDONADO Rep #: [id number] : 1940 F 78 From: Yann Obando DO PCP: Abelino PEARSON,Riley Stevenson Status: REG CLI Study: Thyroid Uptake Single or Mult Date of Exam: 10/27/18 Exam# [id number] Ordering Dr: Riley Liang MD CLINICAL: 78 year old female with history of subclinical hypothyroidism. I-123 THYROID UPTAKE and SCAN COMPARISON: Thyroid scan and uptake report 05/12/2011 FINDINGS: The patient was administered a 306 uCi I-123 capsule by mouth. The 4-hour I-123 radioactive iodine thyroidal uptake was calculated to be 7.0 % (normal 5 to 25 %). The 24-hour I-123 radioactive iodine thyroidal uptake was calculated to be 16.7 % (normal 5 to 40 %). The I-123 thyroid scan demonstrates homogeneous radiopharmaceutical concentration throughout both lobes of a U-shaped thyroid gland. There are no colloidal parenchymal hypofunctioning cold nodules noted in either lobe of the thyroid gland. NM/Thyroid Uptake Single or Mult IMPRESSION: 1. NORMAL 4- and 24-hour I-123 radioactive iodine thyroidal uptakes. 2. 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 (Lilliana et al, J Nucl Med 32: 1455, 1990). 3. No hypofunctioning-cold nodules are identified. Electronically Signed: Yann Obando DO at 22:30 EST Tel , Service support , CC: Riley Liang MD Judicial Reporter: Signed Observed: 10/13/2018 Status: F Source: [place] CULTURE, URINE 4:48 PM [facility] [place] Urine Culture ORGANISM 1: Mixed Gram Positive Organisms Holt Count >100,000 MIX CULTURE Mixed contaminants. Submit a new specimen if indicated. Performed By: #### M100.0650 #### [facility] [address] [facility] [place], [address] BRAIN/HEAD WITHOUT Observed: 10/13/2018 Status: F Source: [place] CONTRAST 4:24 PM [facility] REPOSITORY [facility] Imaging Services [address] [place] [address] Brain/Head without Contrast MR#: [id number] Acct: [id number] Name: LARRY MALDONADO Rep #: [id number] : 1940 F 78 From: Caleb Verde MD PCP: Riley Liang MD, Chi Status: REG CLI Study: Brain/Head without Contrast Date of Exam: 10/13/18 Exam# [id number] Ordering Dr: Riley Liang MD STUDY: CT BRAIN WITHOUT CONTRAST REASON FOR EXAM: Female, 78 years old. Fall. Altered mental status RADIATION DOSAGE (If Supplied By Facility): CTDIvol = ( 44.99 ) mGy, DLP = ( 796.11 ) mGycm TECHNIQUE: Transaxial CT imaging of the brain was performed without administration of intravenous contrast material. Individualized dose optimization techniques were used for this CT. COMPARISON: None. FINDINGS: Normal soft tissue structures. There is hyperostosis frontalis internus. Normal size ventricles and extra-axial spaces for the patient's age. There are mild areas of decreased attenuation within the white matter tracts of the supratentorial brain, consistent with microvascular disease changes. Normal basal ganglia and thalami. Normal brainstem. Normal cerebellum. There is no intracranial hemorrhage. There are no findings of an acute ischemic infarction. There are atherosclerotic calcifications. Normal visualized paranasal sinuses. CT/Brain/Head without Contrast IMPRESSION: Chronic involutional changes of the brain. No hemorrhage. Electronically Signed: Caleb Verde MD at 17:22 EST , Service support , CC: Riley Liang MD Judicial Reporter: Signed RIBS UNI MIN 3V Observed: 10/13/2018 Status: F Source: [place] W/PA CHEST 4:22 PM [facility] [place] [facility] Imaging Services [address] [place] [address] Ribs Uni Min 3V w/PA Chest MR#: [id number] Acct: [id number] Name: LARRY MALDONADO Rep #: [id number] : 1940 F 78 From: Aurelia Oswald MD PCP: Riley Liang MD, Chi Status: REG CLI Study: Ribs Uni Min 3V w/PA Chest Date of Exam: 10/13/18 Exam# [id number] Ordering Dr: Riley Liang MD STUDY: X-RAY - UNILATERAL RIBS ( RIGHT ) WITH CHEST REASON FOR EXAM: Female, 78 years old. Anterior right rib pain after falling. TECHNIQUE - RIBS: 4 view(s) of the ribs. TECHNIQUE - CHEST: 1 view COMPARISON: Prior exam of August 23, 2018 FINDINGS - RIBS: Healed prior fractures of the fourth, fifth, sixth and seventh ribs. Negative for acute rib fracture. FINDINGS - CHEST: The lungs are clear and expanded. There is no demonstrated pleural abnormality. Normal size heart. Normal mediastinum and twila. Normal visualized pulmonary arteries. Normal visualized aortic arch and descending thoracic aorta. Normal visualized thoracic spine. Normal visualized ribs, clavicles, and shoulders. There is no demonstrated abnormality of the visualized soft tissue structures of the upper abdomen. RAD/Ribs Uni Min 3V w/PA Chest IMPRESSION: RIBS: Negative for acute rib fracture. CHEST: No acute cardiopulmonary findings or changes. Electronically Signed: Aurelia Oswald MD at 17:00 EST , Service support , CC: Riley Liang MD Judicial Reporter: Signed CBC W/DIFF, AUTOMATED Collected: 10/13/2018 Status: F Source: [place] 4:11 PM [facility] [place] TYPE CODE TESTS RESULT OUT OF RANGE REFERENCE UNITS LAB L100.1000 4.4-11.0 K/mm3 High WBC 12.4 LAB L100.1200 4.2-5.4 M/mm3 Normal RBC 4.45 LAB L100.1300 12.0-15.0 g/dl Normal HGB 12.0 LAB L100.1400 37-47 % Normal HCT 39.7 LAB L100.1500 81-99 fL Normal MCV 89.2 LAB L100.1600 27.0-32.0 pg Normal MCH 27.0 LAB L100.1700 32-36 g/gl Low MCHC 30.2 LAB L100.1810 11.6-14.6 % High RDW CV 15.1 LAB L100.1820 35.1-43.9 fl High RDW SD 49.0 LAB L100.1900 150-450 K/mm3 Normal PLT 343 LAB L100.2000 6.2-12.0 fl Normal MPV 11.6 LAB L100.2100 47-70 % Normal NEUT% 66.4 LAB L100.2200 19-41 % Normal LY% 24.0 LAB L100.2300 0-10 % Normal MONO% 5.8 LAB L100.2400 0-5 % Normal EO% 3.1 LAB L100.2500 0-1 % Normal BASO% 0.4 LAB L100.2550 0.0-0.9 % Normal IM GRAN % 0.300 Result Comment: IG% - Immature Granulocytes (promyelocytes, myelocytes and metamyelocytes) > 1% indicates that a LEFT SHIFT is Present. LAB L100.2620 2.0-7.7 X10 3/uL High Absolute Neut 8.2 LAB L100.2720 0.83-4.51 X10 3/ul Normal Absolute Lymph 2.97 Performed By: #### L100.0100, L101.9900 #### [facility] [address] [place], [place], [id number] ERYTHROCYTE SED RATE Collected: 10/13/2018 Status: F Source: [place] 4:11 PM [facility] [place] TYPE CODE TESTS RESULT OUT OF RANGE REFERENCE UNITS LAB L102.0000 0-30 mm/hr High SED RATE 45 Performed By: #### L100.0100, L101.9900 #### [facility] [address] [place], [place], [id number] BASIC METABOLIC Collected: 10/13/2018 Status: F Source: CHAVO PROFILE (BMP) 4:11 PM [facility] [place] TYPE CODE TESTS RESULT OUT OF RANGE REFERENCE UNITS LAB L501.0100 74-106 mg/dL High GLU 172 Result Comment: Fasting Glucose result greater than or equal to 126 mg/dL suggests DIABETES MELLITUS per A.D.A. criteria. Please note revised GLUCOSE reference range effective 2017. LAB L501.1000 7-18 mg/dL Normal BUN 15 LAB L501.1100 0.55-1.02 mg/dL Normal CREAT,SERUM 0.73 Result Comment: The validity of the calculated GFR AND GFRAA in patients over 70 years has not been determined. Clinical correlation is essential. LAB L501.1110 >60 mL/min Normal EST GFR 82 Result Comment: Non- GFR Calc LAB L501.1115 >60 mL/min Normal EST GFR - AA 99 Result Comment: GFR Calc LAB L501.1300 10-20 RATIO High BUN/CRE 20.6 LAB L501.2200 8.5-10.1 mg/dL CA Normal 9.4 LAB L501.5300 136-145 mmol/L NA Normal 139 LAB L501.5600 3.5-5.1 mmol/L K Normal 4.6 LAB L501.5900 98-107 mmol/L CL Normal 100 LAB L501.6100 21.0-32.0 mmol/L Normal CO2 31.0 LAB L501.6200 5-15 Normal GAP 8 Performed By: #### L500.2500, L501.6710 #### [facility] [address] [place], [place], [id number] CRP Collected: 10/13/2018 Status: F Source: [place] 4:11 PM [facility] [place] CODE TESTS RESULT OUT OF RANGE REFERENCE UNITS LAB L501.6710 0.0-3.0 mg/L High 13.20 C-REACTIVE PROT Result Comment: C-Reactive Protein (CRP) provides useful information for the diagnosis, therapy and monitoring of inflammatory processes and associated diseases. For the evaluation of Relative Risk for Cardiovascular Disease, a High Sensitivity CRP (HSCRP) should be ordered. Performed By: #### L500.2500, L501.6710 #### [facility] [address] [place], [address] CBC W/DIFF, AUTOMATED Collected: 09/21/2018 Status: F Source: [place] 2:57 PM [facility] [place] TYPE CODE TESTS RESULT OUT OF RANGE REFERENCE UNITS LAB L100.1000 4.4-11.0 K/mm3 Normal WBC 10.0 LAB L100.1200 4.2-5.4 M/mm3 Low RBC 4.17 LAB L100.1300 12.0-15.0 g/dl Low HGB 11.4 LAB L100.1400 37-47 % Normal HCT 37.0 LAB L100.1500 81-99 fL Normal MCV 88.7 LAB L100.1600 27.0-32.0 pg Normal MCH 27.3 LAB L100.1700 32-36 g/gl Low MCHC 30.8 LAB L100.1810 11.6-14.6 % High RDW CV 15.9 LAB L100.1820 35.1-43.9 fl High RDW SD 51.3 LAB L100.1900 150-450 K/mm3 Normal PLT 240 LAB L100.2000 6.2-12.0 fl Normal MPV 11.0 LAB L100.2100 47-70 % High NEUT% 73.4 LAB L100.2200 19-41 % Low LY% 15.7 LAB L100.2300 0-10 % Normal MONO% 7.7 LAB L100.2400 0-5 % Normal EO% 2.5 LAB L100.2500 0-1 % Normal BASO% 0.3 LAB L100.2550 0.0-0.9 % Normal IM GRAN % 0.400 Result Comment: IG% - Immature Granulocytes (promyelocytes, myelocytes and metamyelocytes) > 1% indicates that a LEFT SHIFT is Present. LAB L100.2620 2.0-7.7 X10 3/uL Normal Absolute Neut 7.4 LAB L100.2720 0.83-4.51 X10 3/ul Normal Absolute Lymph 1.58 Performed By: #### L100.0100 #### [facility] [address] [place], [place], [id number] VITAMIN D,25 HYDROXY Collected: 09/21/2018 Status: F Source: [place]O 2:57 PM [facility] [place] CODE TESTS RESULT OUT OF RANGE REFERENCE UNITS LAB L506.1000 29.95-100.01 ng/mL Normal Vitamin D 30.2 25-OH Result Comment: Vitamin D 25(OH) Status Range Deficiency <20 ng/mL (50nmol/L) Insuffciency 20 - 30 ng/mL (50 - 75 nmol/L) Sufficiency 30 - 100 ng/mL (75 - 250 nmol/L) Toxicity >100 ng/mL (>250 nmol/L) Performed By: #### L506.1000 #### [facility] [address] [place], [address] COMPREHENSIVE METABOLIC Collected: 09/21/2018 Status: F Source: [place]O PROFIL 2:57 PM [facility] [place] Order Comment: DR LIANG ADDED [id number] FT4 TYPE CODE TESTS RESULT OUT OF RANGE REFERENCE UNITS LAB L501.0100 74-106 mg/dL High GLU 200 Result Comment: Glucose result greater than or equal to 200 mg/dL suggests DIABETES MELLITUS per A.D.A. criteria. Please note revised GLUCOSE reference range effective 2017. LAB L501.1000 7-18 mg/dL Normal BUN 12 LAB L501.1100 0.55-1.02 mg/dL Normal CREAT,SERUM 0.79 Result Comment: The validity of the calculated GFR AND GFRAA in patients over 70 years has not been determined. Clinical correlation is essential. LAB L501.1110 >60 mL/min Normal EST GFR 74 Result Comment: Non- GFR Calc LAB L501.1115 >60 mL/min Normal EST GFR - AA 90 Result Comment: GFR Calc LAB L501.1300 10-20 RATIO Normal BUN/CRE 15.1 LAB L501.1500 6.4-8.2 g/dL T Normal PROT 6.8 LAB L501.1800 3.2-5.0 g/dL Normal ALB 3.4 LAB L501.1950 2.2-4.2 g/dL Normal GLOB 3.4 LAB L501.2000 0.9-2.4 RATIO Normal A/G 1.0 LAB L501.2200 8.5-10.1 mg/dL CA Normal 8.6 LAB L501.4100 15-37 U/L Normal AST 16 LAB L501.4305 45-117 U/L Normal ALK P 97 LAB L501.4405 13-56 U/L Normal ALT 25 LAB L501.4600 0.20-1.00 mg/dL High T BILI 1.20 LAB L501.5300 136-145 mmol/L NA Normal 138 LAB L501.5600 3.5-5.1 mmol/L K Normal 4.5 LAB L501.5900 98-107 mmol/L CL Normal 101 LAB L501.6100 21.0-32.0 mmol/L Normal CO2 28.0 LAB L501.6200 5-15 Normal GAP 9 Performed By: #### L500.4050, L501.1400, L501.9520, L501.9195, L506.0400 #### [facility] [address] [place], [address] URIC ACID Collected: 09/21/2018 Status: F Source: [place] 2:57 PM [facility] [place] Order Comment: DR LIANG ADDED [id number] FT4 TYPE CODE TESTS RESULT OUT OF RANGE REFERENCE UNITS LAB L501.1400 2.6-6.0 mg/dL Normal URIC 5.1 Result Comment: The drugs N-Acetylcysteine and Metamizole may falsely depress this assay. Performed By: #### L500.4050, L501.1400, L501.9520, L501.9195, L506.0400 #### [facility] [address] [facility] [place], [place], [address] THYROID STIM HORMONE Collected: 09/21/2018 Status: F Source: [place] (TSH) 2:57 PM [facility] [place] Order Comment: DR LIANG ADDED [id number] FT4 TYPE CODE TESTS RESULT OUT OF RANGE REFERENCE UNITS LAB L501.9520 0.358-3.74 uIU/mL Low TSH 0.17 Performed By: #### L500.4050, L501.1400, L501.9520, L501.9195, L506.0400 #### [facility] [address] [place], [place], [id number] T3 UPTAKE Collected: 09/21/2018 Status: F Source: [place] 2:57 PM [facility] [place] Order Comment: DR LIANG ADDED [id number] FT4 TYPE CODE TESTS RESULT OUT OF RANGE REFERENCE UNITS LAB L501.9410 1.4-4.5 Test Normal T7 (FTI) not performed LAB L501.9210 30-39 % 34 Normal T3 UPTAKE Performed By: #### L500.4050, L501.1400, L501.9520, L501.9195, L506.0400 #### [facility] [address] [facility] [place], [address] T4 FREE DIRECT Collected: 09/21/2018 Status: F Source: [place] 2:57 PM [facility] [place] Order Comment: DR LIANG ADDED [id number] FT4 TYPE CODE TESTS RESULT OUT OF RANGE REFERENCE UNITS LAB L506.0400 0.76-1.46 ng/dL Normal T4 FREE 0.97 DIRECT Performed By: #### L500.4050, L501.1400, L501.9520, L501.9195, L506.0400 #### [facility] [address] [facility] [place], [address] RIBS UNI MIN 3V Observed: 08/23/2018 Status: F Source: [place]RE[place]S W/PA CHEST 2:14 PM [facility] [place] [facility] Imaging Services [address] [place] [address] Ribs Uni Min 3V w/PA Chest MR#: [id number] Acct: [id number] Name: LARRY MALDONADO Rep #: [id number] : 1940 F 78 From: Lauren Linder MD PCP: Abelino PEARSON,Riley [place] Status: REG CLI Study: Ribs Uni Min 3V w/PA Chest Date of Exam: 08/23/18 Exam# [id number] Ordering Dr: Riley Liang MD STUDY: X-RAY - UNILATERAL RIBS ( RIGHT ) WITH CHEST REASON FOR EXAM: Female, 78 years old. Continued right sided mid-level lateral rib pain status post fall 2 weeks ago TECHNIQUE - RIBS: 4 view(s) of the ribs. TECHNIQUE - CHEST: Single PA view of the chest. COMPARISON: 11/23/2017 chest x-ray FINDINGS - RIBS: There are recent appearing rib fractures right rib 4, 5 , 6 and 7. FINDINGS - CHEST: There is no visualized pneumothorax. There is slight elevation of the right hemidiaphragm which is similar to the prior study. There is still trace thickening of the right minor fissure also stable since prior study. There is no demonstrated pleural abnormality. There is mild cardiac enlargement. Normal mediastinum and twila. Normal visualized pulmonary arteries. There is atherosclerotic calcification of the aortic arch with tortuosity. There are diffuse degenerative changes of the visualized thoracic spine. Normal visualized ribs, clavicles, and shoulders. There is no demonstrated abnormality of the visualized soft tissue structures of the upper abdomen. RAD/Ribs Uni Min 3V w/PA Chest IMPRESSION: RIBS: Subacute fractures of right rib 4, 5, 6, and 7. No visualized pneumothorax. CHEST: No evidence of acute focal infiltrate. Mild cardiomegaly. Electronically Signed: Lauren Linder MD at 15:23 EST Tel , Service support , CC: Riley Liang MD Judicial Reporter: Signed ABDOMEN SINGLE VIEW Observed: 08/23/2018 Status: F Source: [place] 2:14 PM [facility] [place] [facility] Imaging Services [address] [place] [address] Abdomen Single View MR#: [id number] Acct: [id number] Name: LARRY MALDONADO Rep #: [id number] : 1940 F 78 From: Lauren Linder MD PCP: Riley Liang MD, Chi Status: REG CLI Study: Abdomen Single View Date of Exam: 08/23/18 Exam# [id number] Ordering Dr: Riley Liang MD STUDY: X-RAY - ABDOMEN/PELVIS REASON FOR EXAM: Female, 78 years old. Diarrhea TECHNIQUE: Single AP view of the abdomen / pelvis. COMPARISON: January 20, 2018 KUB FINDINGS: Lung bases roughly the [id number]. There are nondistended appearing loops of large bowel with air-fluid levels. There are vascular calcifications in the left upper quadrant. There is no demonstrated free abdominal air. The liver splenic kidneys are mostly obscured. Normal soft tissue structures. There are diffuse degenerative changes of the visualized lumbar spine. RAD/Abdomen Single View IMPRESSION: Nondistended fluid-filled loops of large bowel compatible with the clinical history of diarrhea. This can be seen in gastroenteritis. Electronically Signed: Lauren Linder MD at 22:15 EST Tel , Service support , CC: Riley Liang MD Judicial Reporter: Signed DISCHARGE INSTRUCTION Observed: 07/31/2018 Status: F Source: [place] 6:25 PM [facility] [place] [facility] Medical Records Department [address] [place] [address] Discharge Instruction 07/31/181823 MR#: [id number] Acct: [id number] Name: LARRY MALDONADO Rep #: [id number] : 1940 78 From: Duncan Bustamante DO PCP: Riley Liang MD, Chi Status: REG ER ED Disposition - Plan for ED Patient: Chief Complaint: Cellulitis Instructions: ED Strain Muscle Ext Prescriptions: Hydrocodone Bitart/Apap 5-325 [[place] 5MG-325MG] 1 tab PO Q4H PRN PRN 2 Days #10 tab PRN Reason: Pain Referrals: Riley Liang Chi, MD [Primary Care Provider] - 3-5 Days What to do if you have Problems For any increased pain, shortness of breath, bleeding, nausea or vomiting, chest pain, or any unexpected problems, contact your Primary Care Provider. Call [facility] ([phone]) or report to the closest Emergency Room. Call 911 if necessary. 07/31/181824 <Electronically signed by Duncan Bustamante DO> Date Duncan Bustamante Cosigner Signature (If Indicated): Date CC: Riley Liang MD EMERGENCY DEPARTMENT Observed: 07/31/2018 Status: F Source: [place] SUMMARY 6:24 PM [facility] [place] [facility] Medical Records Department [address] [place] [address] Emergency Department Summary 07/31/18 1821 MR#: [id number] Acct: [id number] Name: LARRY MALDONADO Rep #: [id number] : 1940 78 From: Duncan Bustamante DO PCP: Riley Liang MD, Chi Status: REG ER - ER Visit Summary Date of Service: 07/31/18 Chief Complaint: [Right leg pain] History of Present Illness: The patient is a 78 F [presents the emergency department with complaint of right-sided leg pain that started yesterday. Patient denies any trauma. She initially thought it might be a little bit swollen or hot. Patient denies any chest pain or increasing shortness of breath. Patient states she always has a little bit of shortness of breath. Patient denies recent travel or surgery. Patient denies any pain in her back.] Physical Examination: [HEENT-PERRLA, EOMI. Cranial nerves II through XII grossly intact. TMs clear. Mucous membranes moist. No adenopathy. Cardiovascular-regular rate and rhythm without murmur or ectopy Lungs-clear to auscultation, chest wall stable without crepitus or subcu emphysema Abdomen-normoactive bowel sounds, soft, nontender, no rebound or rigidity, no peritoneal signs. Back exam-patient has no tenderness over the thoracic or lumbar spine. Deep tendon reflexes are plus out of 4 bilaterally at the patella and Achilles. Patient has normal L5 extension. Patient has normal sensation to light touch. Extremities-intact 4, normal range of motion, normal pulses, atraumatic]. Right leg-patient has tenderness palpation over the lateral right calf. Patient has normal pulses dorsal pedal, posterior tibial, popliteal. No ropes or cords palpated. Negative Homans sign. Test Results: [D-dimer performed was normal at 0.43. Emergency Department Course and Treatment: [She was given 1 [place] p.o.] Treatment Plan: [Follow-up with primary care physician in 3-5 days.] Disposition: [Discharged home in stable condition Impression: [Right calf pain suspect strain] This note was generated with [employer] software. It may contain incorrect words, spelling, and punctuation that were not noted in review of the chart prior to signing ED Disposition - Plan for ED Patient: Chief Complaint: Cellulitis Referrals: Riley Liang Chi, MD [Primary Care Provider] - What to do if you have Problems For any increased pain, shortness of breath, bleeding, nausea or vomiting, chest pain, or any unexpected problems, contact your Primary Care Provider. Call [facility] ([phone]) or report to the closest Emergency Room. Call 911 if necessary. 07/31/18 1824 <Electronically signed by Duncan Bustamante DO> Date Duncan Bustamante DO Cosigner Signature (If Indicated): Date CC: Riley Liang MD D-DIMER QUANTITATIVE Collected: 07/31/2018 Status: F Source: CHAVO (DVT/PE) 5:30 PM [facility] [place] TYPE CODE TESTS RESULT OUT OF RANGE REFERENCE UNITS LAB L300.8000 0.27-0.49 FEU/ug/m Normal D-DIMER 0.43 QUANT Result Comment: NORMAL D-Dimer level (<0.50) indicates no DVT or PE. Performed By: #### L300.8000 #### [facility] [place], [address] IRON BINDING Collected: 07/28/2018 Status: F Source: CHAVO [facility] 4:00 PM [facility] [place] TYPE CODE TESTS RESULT OUT OF RANGE REFERENCE UNITS LAB L503.6075 250-450 ug/dL Normal TIBC 270 Performed By: #### L503.6075, L503.6150 #### [facility] [address] [place], [place], [address] IRON Collected: 07/28/2018 Status: F Source: [place] 4:00 PM [facility] [place] TYPE CODE TESTS RESULT OUT OF RANGE REFERENCE UNITS LAB L503.6150 50-170 ug/dL Normal IRON 63 Performed By: #### L503.6075, L503.6150 #### [facility] [address] [place], [place], [address] CBC W/DIFF, AUTOMATED Collected: 07/28/2018 Status: F Source: [place] 4:00 PM [facility] [place] TYPE CODE TESTS RESULT OUT OF RANGE REFERENCE UNITS LAB L100.1000 4.4-11.0 K/mm3 Normal WBC 9.3 LAB L100.1200 4.2-5.4 M/mm3 Normal RBC 4.30 LAB L100.1300 12.0-15.0 g/dl Low HGB 11.3 LAB L100.1400 37-47 % Normal HCT 38.3 LAB L100.1500 81-99 fL Normal MCV 89.1 LAB L100.1600 27.0-32.0 pg Low MCH 26.3 LAB L100.1700 32-36 g/gl Low MCHC 29.5 LAB L100.1810 11.6-14.6 % High RDW CV 19.4 LAB L100.1820 35.1-43.9 fl High RDW SD 63.6 LAB L100.1900 150-450 K/mm3 Normal PLT 268 LAB L100.2000 6.2-12.0 fl Normal MPV 11.7 LAB L100.2100 47-70 % High NEUT% 71.6 LAB L100.2200 19-41 % Low LY% 18.3 LAB L100.2300 0-10 % Normal MONO% 7.8 LAB L100.2400 0-5 % Normal EO% 1.7 LAB L100.2500 0-1 % Normal BASO% 0.3 LAB L100.2550 0.0-0.9 % Normal IM GRAN % 0.300 Result Comment: IG% - Immature Granulocytes (promyelocytes, myelocytes and metamyelocytes) > 1% indicates that a LEFT SHIFT is Present. LAB L100.2620 2.0-7.7 X10 3/uL Normal Absolute Neut 6.6 LAB L100.2720 0.83-4.51 X10 3/ul Normal Absolute Lymph 1.70 Performed By: #### L100.0100 #### [facility] [place], [address] COMPREHENSIVE METABOLIC Collected: 06/17/2018 Status: F Source: CHAVO BARROS 3:46 PM [facility] [place] TYPE CODE TESTS RESULT OUT OF RANGE REFERENCE UNITS LAB L501.0100 74-106 mg/dL High GLU 115 Result Comment: Fasting Glucose result from 100 to 125 mg/dL suggests IMPAIRED HOMEOSTASIS per A.D.A. criteria. Please note revised GLUCOSE reference range effective 2017. LAB L501.1000 7-18 mg/dL Normal BUN 17 LAB L501.1100 0.55-1.02 mg/dL Normal CREAT,SERUM 0.82 Result Comment: The validity of the calculated GFR AND GFRAA in patients over 70 years has not been determined. Clinical correlation is essential. LAB L501.1110 >60 mL/min Normal EST GFR 71 Result Comment: Non- GFR Calc LAB L501.1115 >60 mL/min Normal EST GFR - AA 86 Result Comment: GFR Calc LAB L501.1300 10-20 RATIO High BUN/CRE 20.7 LAB L501.1500 6.4-8.2 g/dL T Normal PROT 7.1 LAB L501.1800 3.2-5.0 g/dL Normal ALB 3.3 LAB L501.1950 2.2-4.2 g/dL Normal GLOB 3.8 LAB L501.2000 0.9-2.4 RATIO Normal A/G 0.9 LAB L501.2200 8.5-10.1 mg/dL CA Normal 8.9 LAB L501.4100 15-37 U/L Normal AST 17 LAB L501.4305 45-117 U/L Normal ALK P 90 LAB L501.4405 13-56 U/L Normal ALT 23 LAB L501.4600 0.20-1.00 mg/dL T Normal BILI 0.50 LAB L501.5300 136-145 mmol/L NA Normal 138 LAB L501.5600 3.5-5.1 mmol/L K Normal 4.3 LAB L501.5900 98-107 mmol/L CL Normal 102 LAB L501.6100 21.0-32.0 mmol/L Normal CO2 26.0 LAB L501.6200 5-15 Normal GAP 10 Performed By: #### L500.4050, L501.9520 #### [facility] [address] [place], [place], [address] THYROID STIM HORMONE Collected: 06/17/2018 Status: F Source: [place] (TSH) 3:46 PM [facility] [place] TYPE CODE TESTS RESULT OUT OF RANGE REFERENCE UNITS LAB L501.9520 0.358-3.74 uIU/mL Low TSH 0.10 Performed By: #### L500.4050, L501.9520 #### [facility] [address] [place], [address] CBC W/DIFF, AUTOMATED Collected: 06/17/2018 Status: F Source: [place] 3:46 PM [facility] [place] TYPE CODE TESTS RESULT OUT OF RANGE REFERENCE UNITS LAB L100.1000 4.4-11.0 K/mm3 High WBC 11.6 LAB L100.1200 4.2-5.4 M/mm3 Normal RBC 4.31 LAB L100.1300 12.0-15.0 g/dl Low HGB 10.7 LAB L100.1400 37-47 % Low HCT 36.5 LAB L100.1500 81-99 fL Normal MCV 84.7 LAB L100.1600 27.0-32.0 pg Low MCH 24.8 LAB L100.1700 32-36 g/gl Low MCHC 29.3 LAB L100.1810 11.6-14.6 % High RDW CV 20.1 LAB L100.1820 35.1-43.9 fl High RDW SD 62.8 LAB L100.1900 150-450 K/mm3 Normal PLT 309 LAB L100.2000 6.2-12.0 fl Normal MPV 10.7 LAB L100.2100 47-70 % Normal NEUT% 65.6 LAB L100.2200 19-41 % Normal LY% 23.9 LAB L100.2300 0-10 % Normal MONO% 6.8 LAB L100.2400 0-5 % Normal EO% 3.1 LAB L100.2500 0-1 % Normal BASO% 0.3 LAB L100.2550 0.0-0.9 % Normal IM GRAN % 0.300 Result Comment: IG% - Immature Granulocytes (promyelocytes, myelocytes and metamyelocytes) > 1% indicates that a LEFT SHIFT is Present. LAB L100.2620 2.0-7.7 X10 3/uL Normal Absolute Neut 7.6 LAB L100.2720 0.83-4.51 X10 3/ul Normal Absolute Lymph 2.78 LAB L100.5500 ADEQ PLT Normal EST ADEQUATE LAB L100.7300 ANISO Normal RARE LAB L100.7800 Normal MACROCYTE RARE LAB L100.8200 Normal OVALOCYTE RARE Performed By: #### L100.0100 #### [facility] [address] [place], [address] VITAMIN D,25 HYDROXY Collected: 06/17/2018 Status: F Source: HCAVO 3:46 PM [facility] [place] TYPE CODE TESTS RESULT OUT OF REFERENCE UNITS RANGE LAB L506.1000 29.95-100.01 ng/mL Low Vitamin D 27.6 25-OH Result Comment: Vitamin D 25(OH) Status Range Deficiency <20 ng/mL (50nmol/L) Insuffciency 20 - 30 ng/mL (50 - 75 nmol/L) Sufficiency 30 - 100 ng/mL (75 - 250 nmol/L) Toxicity >100 ng/mL (>250 nmol/L) Performed By: #### L506.1000 #### [facility] [address] [place], [place], [address] CARDIOLOGY VISIT Observed: 06/09/2018 Status: F Source: CHAVO REPORT 3:16 PM [facility] [place] [facility] [place] [address] OFFICE VISIT Date of Service: 06/09/18 MR#: [id number] Acct: [id number] Name: LARRY MALDONADO Rep #: [id number] : 1940 Provider: UCHE Lanza Age/Sex: 78/F Location: [facility] Status: Signed HPI HPI Details: LARRY MALDONADO, is a 78 F who presents to the office today for a cardiovascular outpatient follow-up. She has history of coronary artery disease status post angioplasty and stenting, ischemic cardiomyopathy, hypertension, hyperlipidemia, and peripheral arterial disease. Pt. denies chest, arm, jaw, or neck discomfort. Her exercise tolerance is stable via walking, but limited on distance d/t leg pain. Pt. denies symptoms of palpitations, lightheadedness, dizziness, near syncope, or syncopal episodes. Pt. denies PND, fever, chills, blood in urine, blood in stool, or myalgia. She states a loss of balance at times. She states bilateral lower extremity edema with left greater than right. She continues to have claudication symptoms. She states sleeping with 2 pillows nightly. She continues to have low energy, but this has not worsened since last office visit. She continues to have dyspnea on exertion. Intake Vital Signs06/09/18 Height 5 ft 06/09/18 Weight: 181 lb 06/09/18 Body Mass Index (BMI) 35.3 06/09/18 Blood Pressure 132/78 06/09/18 Blood Pressure Location Lt brachial Intake Visit Reasons: 2 M FU (pt missed 8-) Senior Account Manager Required: No Accompanied by: none Is patient in pain?: No Allergies rosuvastatin [From Crestor] Adverse Reaction (Severe, Verified 06/09/18 14:00) Myalgias Medications Albuterol Sulfate [Proair Hfa] 2 puff INHALATION BID 12/23/13 [History Confirmed 06/09/18] Insulin Lispro [Humalog KwikPen] 30 unit SC TIDCM 12/23/13 [History Confirmed 06/09/18] Acetaminophen [Tylenol] 325 mg PO PRN PRN 01/25/15 [History Confirmed 06/09/18] Loperamide [Imodium] 2 mg PO Q2H PRN PRN 01/25/15 [History Confirmed 06/09/18] Nitroglycerin [Nitrostat] 0.4 mg SUBLINGUAL PRN PRN 01/25/15 [History Confirmed 06/09/18] Insulin Glargine,Hum.rec.anlog [Hernandocosmo Aritajamie] 80 unit SQ DAILY 11/05/15 [History Confirmed 06/09/18] Isosorbide Mononitrate [Imdur] 30 mg PO DAILY #30 tab 11/07/15 [Rx Confirmed 06/09/18] Duloxetine Hcl [Cymbalta] 30 mg PO DAILY 10/01/16 [History Confirmed 06/09/18] Iron Carbonyl [Feosol] 65 mg PO QODAY 05/07/17 [History Confirmed 06/09/18] Iron Carbonyl [Feosol] 130 mg PO QODAY 05/07/17 [History Confirmed 06/09/18] aspirin 81 mg tablet,delayed release 162 mg PO QDAY tab 03/31/18 [History Confirmed 06/09/18] atenolol 50 mg tablet 50 mg PO QDAY 03/31/18 [History Confirmed 06/09/18] atorvastatin 20 mg tablet 20 mg PO QDAY 03/31/18 [History Confirmed 06/09/18] ergocalciferol (vitamin D2) 50,000 unit capsule 50,000 unit PO QMONTH cap 03/31/18 [History Confirmed 06/09/18] gabapentin 300 mg capsule 300 mg PO QHS cap 03/31/18 [History Confirmed 06/09/18] lisinopril 40 mg tablet 40 mg PO QDAY #30 tab 03/31/18 [Rx Confirmed 06/09/18] furosemide 20 mg tablet 20 mg PO .every other day tab 06/09/18 [History] PFS Medical History PAD (peripheral artery disease) (Acute) Atherosclerotic heart disease of tangirnaq coronary artery without angina pectoris (Chronic) Left bundle branch block (Chronic) nursing home use of drug (Acute) Ischemic cardiomyopathy (Chronic) Old myocardial infarction (Acute) Acute on chronic combined systolic and diastolic CHF (congestive heart failure) (Acute) Bronchitis (Acute) Cough (Acute) Anemia due to chronic blood loss (Chronic) Benign hypertension (Chronic) CAD (coronary artery disease) (Chronic) History of depression (Chronic) Type II diabetes mellitus (Chronic) Dyspnea (Chronic) HLD (hyperlipidemia) (Chronic) History of pulmonary embolus (PE) (Chronic) NSTEMI (non-ST elevated myocardial infarction) (Acute) Acute on chronic diastolic heart failure (Chronic) Anemia (Acute) Arthritis (Acute) Cancer (Acute) Chest pain (Acute) Diabetes (Acute) Edema (Acute) Heart disease (Acute) Intermittent claudication (Acute) Migraine (Acute) SOB (shortness of breath) (Acute) HTN (hypertension) (Chronic) Surgical History History of carpal tunnel release (Resolved) Hx of knee surgery (Resolved) H/O: hysterectomy (Resolved) Hx of cholecystectomy (Resolved) Presence of other cardiac implants and grafts (Resolved) History of coronary artery stent placement (Chronic) Family History Father CVA (cerebral vascular accident) Mother Heart disease CAD (coronary artery disease) Sister CAD (coronary artery disease) Daughter CAD (coronary artery disease) Myocardial infarction Daughter Diabetes Social History Smoking Status: Never smoker alcohol intake: never ROS Const Const: Positive for fatigue; negative for weakness, body ache, fever(s) or chills ENT ENT: Negative for dizziness Cardio Chest Pain: No Palpitations: No Edema: None Muscle aches with walking: None Resp Respiratory: Positive for SOB with activity; negative for SOB at rest, SOB orthopnea\SOB lying down or paroxysmal nocturnal dyspnea GI GI: Negative nausea, black,tarry stools, bright, red blood in stools or vomiting blood/hematemesis : Negative for hematuria or frequent nighttime urination/ nocturia Musc Musc: Positive for muscle aches/ myalgia Skin Skin: Negative non-healing lesions or rash Neuro Neuro: Negative for weakness or dizziness Endo Endo: Positive for fatigue Allergy Allergy/Immunology: Negative for rash Cardiology Exam Const Appearance: cooperative, healthy appearing, comfortable and no acute distress Orientation: alert, awake and oriented x3 Head Head: normal to inspection Ears: hearing grossly normal bilaterally Nose: external nose normal Face and Sinus: face symmetric Mouth: oral mucosae normal Eyes General: appearance normal, both eyes and all related structures Eyelids: eyelids normal Neck Neck: no JVD and normal visual inspection Carotids: normal carotid upstroke Chest Chest inspection: normal inspection of the chest and normal respiratory effort; negative cough Auscultation: Bilateral: Clear to Auscultation Cardio Rate: regular rate Rhythm: regular rhythm Heart sounds: S1 normal and S2 normal; negative rub, gallop or murmur GI GI: normal to inspection Neuro General: alert, awake, oriented x3 and CN's II-XI intact bilaterally Skin Skin: no rashes or lesions noted Extremities Pulses: Normal: Right Posterior Tibial Pulse, Left Posterior Tibial Pulse, Right Radial Pulse, Left Radial Pulse Lower Extremity Edema: None: Bilateral Psych Psychological: normal affect Supplemental Info Heart catheterization from October 2015 showed an ejection fraction 45%, left main coronary artery angiographically normal, LAD with proximal mild calcification, post diagonal branch and post septal physician's aide with 25% concentric appearing stenosis with minimal luminal irregularities, diagonal branch stent as patent, LCx with 10-25% proximal stenosis, angiographically normal RCA, and moderate mitral valve regurgitation. Stress test from November 2016 showed peak abnormal EKG with left bundle branch block with no obvious ECG changes and nuclear images revelead previous myocardial injury/infarction in portions of the distal anteroseptal segment cannot necessarily be excluded, there is no myocardial perfusions changes considered diagnostic for associated stress-induced myocardial ischemia and ejection fraction was 67%. Echocardiogram from March 2018 showed ejection fraction 55%, moderately enlarged left atrium, mild mitral annular calcification, mild focal mitral valve calcification of the anterior leaflet, mild mitral valve insufficiency, mild tricuspid valve deficiency, mild focal aortic valve complication, trivial pulmonic valve insufficiency, RVSP of 35 mmHg, and evidence of diastolic dysfunction. Carotid duplex ultrasound from March 2018 showed moderate, 50 69%, stenosis of both right and left extracranial internal carotids. Flow within the vertebral arteries is antegrade bilaterally. ALESSANDRO from March 2018 showed possibly elevated ALESSANDRO values. Further testing was recommended. Because of this, she is referred to vascular surgeon, Dr. House. Assessment AND Plan 1. Atherosclerosis of tangirnaq coronary artery of tangirnaq heart without angina pectoris I25.10 PTCA/stent to mid first Diagonal 12/21/03; PTCA/stent to mid Diagonal 07/02/07 Plan Heart catheterization from October 2015 showed ejection fraction 45% and minimal, non-obstructive coronary artery disease. Stress test in November 2016 was negative for stress-induced myocardial ischemia. Echocardiogram in March 2018 showed ejection fraction 55%. Patient denies any chest pain, arm pain, jaw pain, neck pain, shortness of breath, or fatigue suggestive of angina at this time. We will continue to monitor this. We will not make any medication regimen changes and will continue risk factor modification. 2. History of coronary artery stent placement Z95.5 PTCA/stent to mid first Diagonal 12/21/03; PTCA/stent to mid Diagonal 07/02/07 Plan She will continue current treatment plan as outlined above. 3. Ischemic cardiomyopathy I25.5 Plan Her most recent echocardiogram showed ejection fraction 55%. She does continue to have shortness of breath on exertion. This may be related to her chronic anemia and/or decreased overall functional capacity. At this time she will continue current medications which include beta-natividad, CEDRICK inhibitor, and diuretic. We will continue to monitor through history, exam, and repeat echocardiogram. 4. PAD (peripheral artery disease) I73.9 Plan Her most recent ALESSANDRO in March 2018 showed possibly elevated ABIs. She was referred to Dr. House for further testing/evaluation. She states waiting for a phone call from Dr. House's office to schedule. Dr. House's office was contacted after office visit and patient missed appointment on June 02. A voicemail was left with patient to contact [facility] to reschedule this appointment. Hopefully her claudication/leg pain can improved and then she may be able to better increase her overall activity. 5. Pure hypercholesterolemia E78.00 Plan Patient's most recent lipid panel from October 2015 showed cholesterol: 106, HDL: 45, LDL: 44, and triglycerides: 83. She will continue with current statin medication and follow-up with primary care physician. 6. Benign hypertension I10 Plan Patient's blood pressure is well-controlled today in the office. We will continue to monitor this. We will not make any medication regimen changes. Plan Detail Additional Comments Thank you for allowing us to participate in the patient's plan of care, if you have any questions please do not hesitate to call. This note was generated using a voice recognition system and there may be incorrect words, spelling, or punctuation that were not noted upon reviewing the office note prior to saving. Coding Level of Care Code Off vis,est,level 3 Diagnoses Atherosclerosis of tangirnaq coronary artery of tangirnaq heart without angina pectoris I25.10 Lime vs. transplanted heart: tangirnaq heart History of coronary artery stent placement Z95.5 Ischemic cardiomyopathy I25.5 PAD (peripheral artery disease) I73.9 Pure hypercholesterolemia E78.00 Hyperlipidemia type: pure hypercholesterolemia Benign hypertension I10 Coding Level of Care Code Off vis,est,level 3 Diagnoses Atherosclerosis of tangirnaq coronary artery of tangirnaq heart without angina pectoris I25.10 Lime vs. transplanted heart: tangirnaq heart History of coronary artery stent placement Z95.5 Ischemic cardiomyopathy I25.5 PAD (peripheral artery disease) I73.9 Pure hypercholesterolemia E78.00 Hyperlipidemia type: pure hypercholesterolemia Benign hypertension I10 06/09/18 1516 <Electronically signed by Alejandro Lanza FERTILIZER PROCESSING SUPERVISOR-C> Date Alejandro Lanza FERTILIZER PROCESSING SUPERVISOR-C Cosigner Signature: Date (if applicable) CC: Riley Liang MD CBC W/DIFF, AUTOMATED Collected: 05/21/2018 Status: F Source: [facility] 3:[place] [facility] [place] CODE TESTS RESULT OUT OF RANGE REFERENCE UNITS LAB L100.1000 4.4-11.0 K/mm3 High WBC 11.4 LAB L100.1200 4.2-5.4 M/mm3 Low RBC 4.12 LAB L100.1300 12.0-15.0 g/dl Low HGB 9.8 LAB L100.1400 37-47 % Low HCT 34.5 LAB L100.1500 81-99 fL Normal MCV 83.7 LAB L100.1600 27.0-32.0 pg Low MCH 23.8 LAB L100.1700 32-36 g/gl Low MCHC 28.4 LAB L100.1810 11.6-14.6 % High RDW CV 22.6 LAB L100.1820 35.1-43.9 fl High RDW SD 68.8 LAB L100.1900 150-450 K/mm3 Normal PLT 312 LAB L100.2000 6.2-12.0 fl Normal MPV 11.5 LAB L100.2100 47-70 % High NEUT% 72.8 LAB L100.2200 19-41 % Normal LY% 19.8 LAB L100.2300 0-10 % Normal MONO% 5.7 LAB L100.2400 0-5 % Normal EO% 1.1 LAB L100.2500 0-1 % Normal BASO% 0.3 LAB L100.2550 0.0-0.9 % Normal IM GRAN % 0.300 Result Comment: IG% - Immature Granulocytes (promyelocytes, myelocytes and metamyelocytes) > 1% indicates that a LEFT SHIFT is Present. LAB L100.2620 2.0-7.7 X10 3/uL Absolute High Neut 8.3 LAB L100.2720 0.83-4.51 X10 3/ul Absolute Normal Lymph 2.26 LAB L100.4500 SMEAR Normal COMMENT SCANNED LAB L100.5650 PLT Normal MORPH LARGE LAB L100.7300 ANISO Normal 1+ LAB L100.7700 Normal MICROCYTES RARE LAB L100.8200 Normal OVALOCYTE RARE Performed By: #### L100.0100 #### [facility] [address] [place], [address] COMPREHENSIVE METABOLIC Collected: 05/21/2018 Status: F Source: [facility] 3:36 PM [facility] [place] TYPE CODE TESTS RESULT OUT OF RANGE REFERENCE UNITS LAB L501.0100 74-106 mg/dL High GLU 159 Result Comment: Fasting Glucose result greater than or equal to 126 mg/dL suggests DIABETES MELLITUS per A.D.A. criteria. Please note revised GLUCOSE reference range effective 2017. LAB L501.1000 7-18 mg/dL Normal BUN 15 LAB L501.1100 0.55-1.02 mg/dL Normal CREAT,SERUM 0.75 Result Comment: The validity of the calculated GFR AND GFRAA in patients over 70 years has not been determined. Clinical correlation is essential. LAB L501.1110 >60 mL/min Normal EST GFR 79 Result Comment: Non- GFR Calc LAB L501.1115 >60 mL/min Normal EST GFR - AA 96 Result Comment: GFR Calc LAB L501.1300 10-20 RATIO Normal BUN/CRE 19.9 LAB L501.1500 6.4-8.2 g/dL T Normal PROT 6.9 LAB L501.1800 3.2-5.0 g/dL Normal ALB 3.3 LAB L501.1950 2.2-4.2 g/dL Normal GLOB 3.6 LAB L501.2000 0.9-2.4 RATIO Normal A/G 0.9 LAB L501.2200 8.5-10.1 mg/dL CA Normal 9.2 LAB L501.4100 15-37 U/L Low AST 13 LAB L501.4305 45-117 U/L Normal ALK P 84 LAB L501.4405 13-56 U/L Normal ALT 20 LAB L501.4600 0.20-1.00 mg/dL T Normal BILI 0.70 LAB L501.5300 136-145 mmol/L NA Normal 141 LAB L501.5600 3.5-5.1 mmol/L K Normal 4.2 LAB L501.5900 98-107 mmol/L CL Normal 104 LAB L501.6100 21.0-32.0 mmol/L Normal CO2 29.0 LAB L501.6200 5-15 Normal GAP 8 Performed By: #### L500.4050, L501.9520, L503.6030, L503.6550 #### [facility] [address] [facility] [place], [place], [id number] THYROID STIM HORMONE Collected: 05/21/2018 Status: F Source: [facility] (T[facility]) 3:36 PM [facility] [place] TYPE CODE TESTS RESULT OUT OF RANGE REFERENCE UNITS LAB L501.9520 0.358-3.74 uIU/mL Low TSH 0.13 Performed By: #### L500.4050, L501.9520, L503.6030, L503.6550 #### [facility] [address] [facility] [place], [place], [id number] IRON+IRON BINDING Collected: 05/21/2018 Status: F Source: [facility] CAPACITY 3:36 PM [facility] [place] TYPE CODE TESTS RESULT OUT OF RANGE REFERENCE UNITS LAB L503.6075 250-450 ug/dL TIBC Normal 314 LAB L503.6150 50-170 ug/dL Low IRON 39 LAB L503.6250 15.0-55.0 % Low IRON SATURATION 12.4 Performed By: #### L500.4050, L501.9520, L503.6030, L503.6550 #### [facility] [address] [facility] [place], [place], [id number] FERRITIN Collected: 05/21/2018 Status: F Source: [facility] 3:36 PM [facility] [place] TYPE CODE TESTS RESULT OUT OF REFERENCE UNITS RANGE LAB L503.6550 8-252 ng/mL High FERRITIN 271 Performed By: #### L500.4050, L501.9520, L503.6030, L503.6550 #### [facility] [address] [facility] [place], [address] T3 UPTAKE Collected: 05/21/2018 Status: F Source: [facility] 3:36 PM [facility] [place] Order Comment: NO VRO CHARGE. ADD ON TO SPECIMEN IN LAB. LOCATION: F TYPE CODE TESTS RESULT OUT OF RANGE REFERENCE UNITS LAB L501.9210 30-39 % Normal T3 UPTAKE 33 LAB L501.9410 1.4-4.5 Low T7 (FTI) 0.3 Performed By: #### L501.9195, L506.0400 #### [facility] [place], [address] T4 FREE DIRECT Collected: 05/21/2018 Status: F Source: [facility] 3:36 PM [facility] [place] Order Comment: NO VRO CHARGE. ADD ON TO SPECIMEN IN LAB. LOCATION: F TYPE CODE TESTS RESULT OUT OF RANGE REFERENCE UNITS LAB L506.0400 0.76-1.46 ng/dL Normal T4 FREE 0.93 DIRECT Performed By: #### L501.9195, L506.0400 #### [facility] [address] [place] [address], [address] CBC W/DIFF, AUTOMATED Collected: 05/03/2018 Status: F Source: [facility] 4:46 PM [facility] [place] TYPE CODE TESTS RESULT OUT OF RANGE REFERENCE UNITS LAB L100.1000 4.4-11.0 K/mm3 Normal WBC 10.8 LAB L100.1200 4.2-5.4 M/mm3 Low RBC 3.77 LAB L100.1300 12.0-15.0 g/dl Low HGB 8.5 LAB L100.1400 37-47 % Low HCT 29.1 LAB L100.1500 81-99 fL Low MCV 77.2 LAB L100.1600 27.0-32.0 pg Low MCH 22.5 LAB L100.1700 32-36 g/gl Low MCHC 29.2 LAB L100.1810 11.6-14.6 % High RDW CV 17.7 LAB L100.1820 35.1-43.9 fl High RDW SD 48.0 LAB L100.1900 150-450 K/mm3 Normal PLT 268 LAB L100.2000 6.2-12.0 fl Normal MPV 11.6 LAB L100.2100 47-70 % Normal NEUT% 63.5 LAB L100.2200 19-41 % Normal LY% 25.9 LAB L100.2300 0-10 % Normal MONO% 7.9 LAB L100.2400 0-5 % Normal EO% 2.0 LAB L100.2500 0-1 % Normal BASO% 0.4 LAB L100.2550 0.0-0.9 % Normal IM GRAN % 0.300 Result Comment: IG% - Immature Granulocytes (promyelocytes, myelocytes and metamyelocytes) > 1% indicates that a LEFT SHIFT is Present. LAB L100.2620 2.0-7.7 X10 3/uL Normal Absolute Neut 6.9 LAB L100.2720 0.83-4.51 X10 3/ul Normal Absolute Lymph 2.80 Performed By: #### L100.0100 #### [facility] [address] [facility]. [place], [place], [address] BNP,B-TYPE NATRIURETIC Collected: 05/03/2018 Status: F Source: [facility] PEPT[place] 4:46 PM [facility] [place] TYPE CODE TESTS RESULT OUT OF RANGE REFERENCE UNITS LAB L503.6620 0-100 pg/mL Normal B-TYPE 97.0 JANINA PEP Performed By: #### L503.6620 #### [facility] [address] [place], [address] COMPREHENSIVE METABOLIC Collected: 05/03/2018 Status: F Source: [facility] [place]IL 4:46 PM [facility] [place] Order Comment: ADD STAT FE BY DR LIANG TYPE CODE TESTS RESULT OUT OF RANGE REFERENCE UNITS LAB L501.0100 74-106 mg/dL High GLU 181 Result Comment: Fasting Glucose result greater than or equal to 126 mg/dL suggests DIABETES MELLITUS per A.D.A. criteria. Please note revised GLUCOSE reference range effective 2017. LAB L501.1000 7-18 mg/dL Normal BUN 13 LAB L501.1100 0.55-1.02 mg/dL Normal CREAT,SERUM 0.72 Result Comment: The validity of the calculated GFR AND GFRAA in patients over 70 years has not been determined. Clinical correlation is essential. LAB L501.1110 >60 mL/min Normal EST GFR 83 Result Comment: Non- GFR Calc LAB L501.1115 >60 mL/min Normal EST GFR - AA 100 Result Comment: GFR Calc LAB L501.1300 10-20 RATIO Normal BUN/CRE 18.0 LAB L501.1500 6.4-8.2 g/dL T Normal PROT 7.2 LAB L501.1800 3.2-5.0 g/dL Normal ALB 3.2 LAB L501.1950 2.2-4.2 g/dL Normal GLOB 4.0 LAB L501.2000 0.9-2.4 RATIO Low A/G 0.8 LAB L501.2200 8.5-10.1 mg/dL CA Normal 8.7 LAB L501.4100 15-37 U/L Low AST 13 LAB L501.4305 45-117 U/L Normal ALK P 93 LAB L501.4405 13-56 U/L Normal ALT 19 LAB L501.4600 0.20-1.00 mg/dL T Normal BILI 0.70 LAB L501.5300 136-145 mmol/L Low NA 135 LAB L501.5600 3.5-5.1 mmol/L K Normal 4.1 LAB L501.5900 98-107 mmol/L CL Normal 101 LAB L501.6100 21.0-32.0 mmol/L Normal CO2 27.0 LAB L501.6200 5-15 Normal GAP 7 Performed By: #### L500.4050, L501.9520, L503.6075, L503.6550, L503.6150 #### [facility] [address] [place], [place], [address] THYROID STIM HORMONE Collected: 05/03/2018 Status: F Source: [facility] ([facility]) 4:46 PM [facility] [place] Order Comment: ADD STAT FE BY DR LIANG TYPE CODE TESTS RESULT OUT OF RANGE REFERENCE UNITS LAB L501.9520 0.358-3.74 uIU/mL Low TSH 0.30 Performed By: #### L500.4050, L501.9520, L503.6075, L503.6550, L503.6150 #### [facility] [address] [place], [place], [address] IRON BINDING Collected: 05/03/2018 Status: F Source: [facility] CAPACITY,TOTAL 4:46 PM [facility] [place] Order Comment: ADD STAT FE BY DR LIANG TYPE CODE TESTS RESULT OUT OF RANGE REFERENCE UNITS LAB L503.6075 250-450 ug/dL Normal TIBC 393 Performed By: #### L500.4050, L501.9520, L503.6075, L503.6550, L503.6150 #### [facility] [facility] [address] [place], [place], [address] FERRITIN Collected: 05/03/2018 Status: F Source: [facility] 4:46 PM [facility] [place] Order Comment: ADD STAT FE BY DR LIANG TYPE CODE TESTS RESULT OUT OF RANGE REFERENCE UNITS LAB L503.6550 8-252 ng/mL Normal FERRITIN 13 Performed By: #### L500.4050, L501.9520, L503.6075, L503.6550, L503.6150 #### [facility] [facility] [address] [place], [place], [id number] (175) IRON Collected: 05/03/2018 Status: F Source: [facility] 4:46 PM [facility] [place] Order Comment: ADD STAT FE BY DR LIANG TYPE CODE TESTS RESULT OUT OF RANGE REFERENCE UNITS LAB L503.6150 50-170 ug/dL Low IRON 18 Performed By: #### L500.4050, L501.9520, L503.6075, L503.6550, L503.6150 #### [facility] [facility] [address] [place], [place], [address] CAROTID DUPLEX Observed: 04/14/2018 Status: F Source: [facility] ULTRASOUND 11:46 AM [facility] [place] [facility] [address] [place] [address] Carotid Duplex Ultrasound 04/09/18 1253 MR#: [id number] Acct: [id number] Name: LARRY MALDONADO Rep #: [id number] : 1940 78 From: Wu House MD Attending Dr: Guicho Billy MD Status: REG CLI Ordering Dr: Alejandro Lanza Date: 04/09/18 Location: [facility] Sex: F C Admitted: Reason For Study: Carotid stenosis Rt. Velocities/BP Lt. Velocities/BP Prox CCA 70.9/11.7 cm/sec. Prox CCA 93.2/16.4 cm/sec. Mid CCA 69.8/12.3 cm/sec. Mid CCA 75.6/16.4 cm/sec. Dist CCA 58.6/11.1 cm/sec. Dist CCA 80.3/11.7 cm/sec. Prox ICA 137.0/23.6 cm/sec. Prox ICA 171.0/36.3 cm/sec. Mid ICA 115.0/21.7 cm/sec. Mid ICA 96.2/23.5 cm/sec. Dist ICA 102.0/21.9 cm/sec. Dist ICA 83.6/23.3 cm/sec. Rt. ICA/CCA = 2.0. Lt. ICA/CCA = 2.3. Prox ECA 150.0/0.0 cm/sec. Prox ECA 137.0/0.0 cm/sec. Rt. Vert. 56.9/15.2 cm/sec. Lt. Vert. 41.6/7.6 cm/sec. Right Extracranial There is intimal thickening but no significant atherosclerotic plaque noted in the right common carotid artery. There is heterogeneous, irregular atherosclerotic plaque noted in the right internal carotid artery. There is heterogeneous, irregular atherosclerotic plaque noted in the right external carotid artery. Antegrade flow is noted in the right vertebral artery. Left Extracranial There is heterogeneous, irregular atherosclerotic plaque noted in the left common carotid artery. There is heterogeneous, irregular atherosclerotic plaque noted in the left internal carotid artery. There is heterogeneous, irregular atherosclerotic plaque noted in the left external carotid artery. Antegrade flow is noted in the left vertebral artery. Procedure Carotid Duplex [id number]. Exam performed in department. Interpretation Summary Moderate (50-69%) stenosis right extracranial internal carotid. Moderate (50-69%) stenosis left extracranial internal carotid. Flow within the vertebral arteries is antegrade bilaterally. Ordering Physician: Alejandro Lanza Referring Physician: Guicho Billy Chi Performed By: Alda Sigala RVT 04/14/18 1146 Date Wu House MD CC: UCHE Lanza; Guicho Billy MD; Riley Liang MD Date Dictated: 04/09/18 1253 Date Transcribed: 04/14/18 1146 Judicial Reporter: Signed LOWER EXT ARTERIAL Observed: 04/14/2018 Status: F Source: [place] [facility] 11:40 AM [facility] [place] [facility] Cardiovascular Services [facility] [place] [address] 04/14/18 1137 MR#: [id number] Acct: [id number] Name: LARRY MALDONADO Rep #: [id number] : 1940 78 From: Wu House MD Attending Dr: Guicho Billy MD Status: REG CLI Ordering Dr: Date: 04/14/18 Location: [facility] Sex: F C Admitted: Arterial Study - Arterial Study Arterial Study: Date of scan 04/09/[address] House History patient presents with claudication Interpretation: Right lower extremity duplex showing a probable biphasic but a decreased waveform flow of the posterior tibial with an ALESSANDRO 0.92 in more of a biphasic peak waveform in the dorsalis pedis with an ALESSANDRO 1.40. Digit brachial index 0.42. Next Left lower extremity with a almost a triphasic waveform in the PT with an ALESSANDRO 1.1 and a more of a peak biphasic to almost triphasic of the dorsalis pedis with an ALESSANDRO of its noncompressible. Digit brachial index 0.59. Impression: 1. Right lower extremity with some evidence of occlusive disease with the ALESSANDRO 1.4 appears probably falsely elevated and not sure the accuracy of the 0.92. May wish further means with a further imaging of the leg. 2. Appears more of a better waveform noted on the left slightly but again has noncompressibility of the DP and ALESSANDRO may be false at the 1.1. Further imaging is needed next #3. Bilateral small vessel disease with TBI 0.42 on the right 0.59 on the left 04/14/18 1140 <Electronically signed by Wu House MD> Date Wu House MD CC: Guicho Billy MD; Riley Liang MD Date Dictated: 04/14/18 1137 Date Transcribed: 04/14/18 113 Judicial Reporter: DIMITRI Signed ECHOCARDIOGRAM COMPLETE Observed: 04/12/2018 Status: F Source: [place] 10:06 AM [facility] [place] [facility] Cardiovascular Services [address] [place] [id number] Echo Complete 04/09/18 1359 MR#: [id number] Acct: [id number] Name: LARRY MALDONADO Rep #: [id number] : 1940 78 From: Guicho Billy MD Attending Dr: Guicho Billy MD Status: REG CLI Ordering Dr: Alejandro Lanza FERTILIZER PROCESSING SUPERVISOR-C Date: 04/09/18 Location: [facility] Sex: F C Admitted: Reason For Study: dyspnea/SOB Procedure This was a 2D Doppler, Color Flow transthoracic echocardiogram. The exam was of poor technical quality due to body habitus. The study was technically difficult. Exam performed in department. Left Ventricle Normal LV size. Segmental dysfunction with preserved ejection fraction (see wall motion). The estimated ejection fraction is 55 %. There is evidence of diastolic dysfunction. Basal inferoseptal: Hypokinetic. Basal anteroseptal: Hypokinetic. Mid-inferoseptal : Hypokinetic. Mid- anteroseptal : Hypokinetic. Septal [place] : Hypokinetic. Right Ventricle Normal RV size. Normal systolic function. Atria The left atrium is moderately enlarged. Normal right atrium. No doppler evidence for ASD. Mitral Valve There is mild mitral annular calcification. Mild focal mitral valve calcification of the anterior leaflet. Mild (1+) mitral valve insufficiency. Tricuspid Valve Normal tricuspid valve. Mild tricuspid valve insufficiency. Right ventricular systolic pressure estimated to be 35 mmHg. Aortic Valve Trisinus/trileaflet aortic valve. Mild focal aortic valve calcification. Pulmonic Valve The pulmonic valve is not well visualized. Trivial pulmonic valve insufficiency. Great Vessels Normal sized aortic root. Pericardium/Pleural No pericardial effusion. MMode/2D Measurements AND Calculations LVIDd: 4.7 cm IVSd: 1.3 cm Ao root diam: 3.1 cm LVIDs: 3.6 cm LVPWd: 1.2 cm LA dimension: 4.6 cm RVDd: 3.1 cm FS: 23.1 % LAV(MOD-bp): 80.9 ml LA A4 area: 22.5 cm2 RA A4 area: 10.0 cm2 LAV(MOD-bp) Indexed: 45.6 ml/m2 LAV(MOD-sp2): 77.1 ml LAV(MOD-sp4): 77.2 ml Doppler Measurements AND Calculations MV E max robel: 105.1 cm/sec Lat Peak E' Robel: 6.8 cm/sec Med Peak E' Robel: 3.8 cm/sec MV A max robel: 110.2 cm/sec E/E' lat: 15.5 E/E' med: 27.5 MV E/A: 0.95 Ao V2 max: 144.3 cm/sec LV V1 max: 91.4 cm/sec MR max robel: 607.0 cm/sec Ao max P.3 mmHg LV V1 max P.3 mmHg MR max P.4 mmHg PA V2 max: 80.6 cm/sec TR max robel: 280.8 cm/sec TR max P.9 mmHg Interpretation Summary The study was technically difficult. Segmental dysfunction with preserved ejection fraction (see wall motion). The estimated ejection fraction is 55 %. The left atrium is moderately enlarged. There is mild mitral annular calcification. Mild focal mitral valve calcification of the anterior leaflet. Mild (1+) mitral valve insufficiency. Mild tricuspid valve insufficiency. Mild focal aortic valve calcification. Trivial pulmonic valve insufficiency. Right ventricular systolic pressure estimated to be 35 mmHg. There is evidence of diastolic dysfunction. Ordering Physician: Alejandro Lanza Referring Physician: Riley Liang Chi Performed By: Mariah Mcconnell, SAULCS, RVT 04/12/18 1005 Date Guicho Billy MD CC: UCHE Lanza; Guicho Billy MD; Riley Liang MD Date Dictated: 04/09/18 1359 Date Transcribed: 04/12/18 1005 Judicial Reporter: Signed CARDIOLOGY VISIT Observed: 03/31/2018 Status: F Source: [place] RE[place] 5:26 PM [facility] [place] [facility] [address] [place] [address] OFFICE VISIT Date of Service: 03/31/18 MR#: [id number] Acct: [id number] Name: LARRY MALDNOADO Rep #: [id number] : 1940 Provider: UCHE Lanza Age/Sex: 78/F Location: [facility] Status: Signed HPI HPI Details: LARRY MALDONADO, is a 78 F who presents to the office today for a cardiovascular outpatient follow-up. She has history of coronary artery disease status post angioplasty and ischemic cardiomyopathy. Pt. denies chest, arm, jaw, or neck discomfort. Her exercise tolerance is stable. Pt. denies symptoms of palpitations, lightheadedness, dizziness, near syncope, or syncopal episodes. Pt. denies PND, fever, chills, blood in urine, blood in stool, or myalgia. She states a loss of balance at times. She states bilateral lower extremity edema. She continues to have claudication symptoms. She states sleeping with 2 pillows nightly. She states having zero energy. She states potentially worsening dyspnea on exertion. 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 Is patient in pain?: No Allergies rosuvastatin [From Crestor] Adverse Reaction (Severe, Verified 03/31/18 15:31) Myalgias Medications Albuterol Sulfate [Proair Hfa] 2 puff INHALATION BID 12/23/13 [History Confirmed 03/31/18] Insulin Lispro [Humalog KwikPen] 30 unit SC TIDCM 12/23/13 [History Confirmed 03/31/18] Acetaminophen [Tylenol] 325 mg PO PRN PRN 01/25/15 [History Confirmed 03/31/18] Loperamide [Imodium] 2 mg PO Q2H PRN PRN 01/25/15 [History Confirmed 03/31/18] Nitroglycerin [Nitrostat] 0.4 mg SUBLINGUAL PRN PRN 01/25/15 [History Confirmed 03/31/18] Insulin Glargine,Hum.rec.anlog [Lonnie Aritajamie] 80 unit SQ DAILY 11/05/15 [History Confirmed 03/31/18] Isosorbide Mononitrate [Imdur] 30 mg PO DAILY #30 tab 11/07/15 [Rx Confirmed 03/31/18] Duloxetine Hcl [Cymbalta] 30 mg PO DAILY 10/01/16 [History Confirmed 03/31/18] Iron Carbonyl [Feosol] 65 mg PO QODAY 05/07/17 [History Confirmed 03/31/18] Iron Carbonyl [Feosol] 130 mg PO QODAY 05/07/17 [History Confirmed 03/31/18] aspirin 81 mg tablet,delayed release 162 mg PO QDAY tab 03/31/18 [History Confirmed 03/31/18] atenolol 50 mg tablet 50 mg PO QDAY 03/31/18 [History Confirmed 03/31/18] atorvastatin 20 mg tablet 20 mg PO QDAY 03/31/18 [History Confirmed 03/31/18] ergocalciferol (vitamin D2) 50,000 unit capsule 50,000 unit PO QMONTH cap 03/31/18 [History Confirmed 03/31/18] furosemide 20 mg tablet 20 mg PO BID #60 tab 03/31/18 [Rx Confirmed 03/31/18] gabapentin 300 mg capsule 300 mg PO QHS cap 03/31/18 [History Confirmed 03/31/18] lisinopril 40 mg tablet 40 mg PO QDAY #30 tab 03/31/18 [Rx Confirmed 03/31/18] PFSH Medical History Atherosclerotic heart disease of tangirnaq coronary artery without angina pectoris (Chronic) Left bundle branch block (Chronic) 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) Ischemic cardiomyopathy (Chronic) Old myocardial infarction (Acute) Acute on chronic combined systolic and diastolic CHF (congestive heart failure) (Acute) Bronchitis (Acute) Cough (Acute) Anemia due to chronic blood loss (Chronic) Benign hypertension (Chronic) CAD (coronary artery disease) (Chronic) History of depression (Chronic) Type II diabetes mellitus (Chronic) Dyspnea (Chronic) HLD (hyperlipidemia) (Chronic) History of pulmonary embolus (PE) (Chronic) NSTEMI (non-ST elevated myocardial infarction) (Acute) Acute on chronic diastolic heart failure (Chronic) Anemia (Acute) Arthritis (Acute) Cancer (Acute) Chest pain (Acute) Diabetes (Acute) Edema (Acute) Heart disease (Acute) Intermittent claudication (Acute) Migraine (Acute) SOB (shortness of breath) (Acute) HTN (hypertension) (Chronic) Surgical History History of carpal tunnel release (Resolved) Hx of knee surgery (Resolved) H/O: hysterectomy (Resolved) Hx of cholecystectomy (Resolved) Presence of other cardiac implants and grafts (Resolved) History of coronary artery stent placement (Chronic) Family History Father CVA (cerebral vascular accident) Mother Heart disease CAD (coronary artery disease) Sister CAD (coronary artery disease) Daughter CAD (coronary artery disease) Myocardial infarction Daughter Diabetes Social History Smoking Status: Never smoker alcohol intake: never ROS Const Const: Negative for fatigue, weakness, body ache, fever(s) or chills ENT ENT: Negative for dizziness Cardio Chest Pain: No Palpitations: No Edema: None Muscle aches with walking: None Resp Respiratory: Negative for SOB with activity, SOB at rest, SOB orthopnea\SOB lying down or paroxysmal nocturnal dyspnea GI GI: Negative nausea, black,tarry stools, bright, red blood in stools or vomiting blood/hematemesis : Negative for hematuria or frequent nighttime urination/ nocturia Musc Musc: Negative for muscle aches/ myalgia Skin Skin: Negative non-healing lesions or rash Neuro Neuro: Negative for weakness, dizziness, lightheadedness, near syncope, syncope or orthostatic symptoms Endo Endo: Negative for fatigue Allergy Allergy/Immunology: Negative for rash Cardiology Exam Const Appearance: cooperative, healthy appearing, comfortable and no acute distress Orientation: alert, awake and oriented x3 Head Head: normal to inspection Ears: hearing grossly normal bilaterally Nose: external nose normal Face and Sinus: face symmetric Mouth: oral mucosae normal Eyes General: appearance normal, both eyes and all related structures Eyelids: eyelids normal Neck Neck: no JVD and normal visual inspection Carotids: normal carotid upstroke Chest Chest inspection: normal inspection of the chest and normal respiratory effort; negative cough Auscultation: Bilateral: Clear to Auscultation Cardio Rate: regular rate Rhythm: regular rhythm Heart sounds: S1 normal and S2 normal; negative rub or gallop GI GI: normal to inspection Neuro General: alert, awake, oriented x3 and CN's II-XI intact bilaterally Skin Skin: no rashes or lesions noted Extremities Pulses: Normal: Right Posterior Tibial Pulse, Left Posterior Tibial Pulse, Right Radial Pulse, Left Radial Pulse Lower Extremity Edema: None: Bilateral Psych Psychological: normal affect Supplemental Info Heart catheterization from October 2015 showed an ejection fraction 45%, left main coronary artery angiographically normal, LAD with proximal mild calcification, post diagonal branch and post septal physician's aide with 25% concentric appearing stenosis with minimal luminal irregularities, diagonal branch stent as patent, LCx with 10-25% proximal stenosis, angiographically normal RCA, and moderate mitral valve regurgitation. Stress test from November 2016 showed peak abnormal EKG with left bundle branch block with no obvious ECG changes and nuclear images revelead previous myocardial injury/infarction in portions of the distal anteroseptal segment cannot necessarily be excluded, there is no myocardial perfusions changes considered diagnostic for associated stress-induced myocardial ischemia and ejection fraction was 67%. Echocardiogram from September 2015 showed an estimated ejection fraction of 55%, mildly enlarged left atrium, mild mitral calcification, mild to moderate eccentric mitral valve insufficiency, trivial mitral valve insufficiency, mild focal aortic valve calcification, trivial pulmonic valve insufficiency, and an RVSP of 30 mmHg. Assessment AND Plan 1. Atherosclerosis of tangirnaq coronary artery of tangirnaq heart without angina pectoris I25.10 S/P remote diagonal branch stenting; Plan Patient denies any chest pain, arm pain, jaw pain, neck pain, or fatigue suggestive of angina at this time. We will continue to monitor this. We will not make any medication regimen changes and will continue risk factor modification. Orders Orders: 2. Ischemic cardiomyopathy I25.5 Plan Patient does state dyspnea on exertion that may be worse since last office visit. She does acknowledge periods of worsening lower extremity bilateral pedal edema. She also mentions having sleep on 2 pillows each night. She will undergo repeat echocardiogram for further evaluation. She will continue current medications which beta- natividad, CEDRICK inhibitor, and diuretic. Depending on results further recommendation will be made. Her previous echocardiogram in September 2015 showed ejection fraction 55%. Her heart catheterization in October 2015 showed ejection fraction 45% and her stress test in November 2016 showed preserved ejection fraction. Orders Orders: 3. Bilateral carotid artery stenosis I65.23 Plan Patient's carotid duplex ultrasound from December 2016 showed moderate, 50-69%, stenosis of right extracranial internal carotid and moderate, 50-69%, stenosis of left extracranial internal carotid. She no longer desires to follow-up with vascular surgeon. A yearly carotid duplex ultrasound will be done for further evaluation. She will continue lifestyle modification and cholesterol control. Depending on results further recommendation will be made. Orders Orders: 4. 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 Her last ALESSANDRO was in February 2017 which showed no stenosis. She continues to have claudication bilaterally and states that this is very limiting and is unable to walk any length. She was able to go from parking lot to our office without discomfort. She states multiple times not able to shop with family due to the pain. She will undergo repeat ALESSANDRO for evaluation and comparison. Pain results further recommendation will be made. She does describe extensive back pain/back issues that may be contributing to this. She was asked to follow-up with primary care physician regarding back concerns. Orders Orders: 5. Benign hypertension I10 Plan Patient's blood pressure is well-controlled today in the office. We will continue to monitor this. We will not make any medication regimen changes. 6. Pure hypercholesterolemia E78.00; E78.0 Plan Patient's most recent lipid panel from October 2015 showed cholesterol: 106, HDL: 45, LDL: 44, and triglycerides: 83. She will continue with current statin medication and follow-up with primary care physician. Plan Detail Other Orders Orders: Other Medications New: Discontinued: Additional Comments Thank you for allowing us to participate in the patients plan of care, if you have any questions please do not hesitate to call. This note was generated using a voice recognition system and there may be incorrect words, spelling or punctuation that were not noted when reviewing the office note prior to saving. Follow Up 2 Months (JHR) 12 Months (PFM) Coding Level of Care Code Off vis,est,level 4 Diagnoses Atherosclerosis of tangirnaq coronary artery of tangirnaq heart without angina pectoris I25.10 Lime vs. transplanted heart: tangirnaq heart Ischemic cardiomyopathy I25.5 Bilateral carotid artery stenosis I65.23 Claudication of both lower extremities I73.9 Benign hypertension I10 Pure hypercholesterolemia E78.00; E78.0 Hyperlipidemia type: pure hypercholesterolemia Coding Level of Care Code Off vis,est,level 4 Diagnoses Atherosclerosis of tangirnaq coronary artery of tangirnaq heart without angina pectoris I25.10 Lime vs. transplanted heart: tangirnaq heart Ischemic cardiomyopathy I25.5 Bilateral carotid artery stenosis I65.23 Claudication of both lower extremities I73.9 Benign hypertension I10 Pure hypercholesterolemia E78.00; E78.0 Hyperlipidemia type: pure hypercholesterolemia 03/31/18 1726 <Electronically signed by Alejandro RECINOSC> Date Alejandro Lanza FERTILIZER PROCESSING SUPERVISOR-C Cosigner Signature: Date (if applicable) CC: Riley Liang MD CBC W/DIFF, AUTOMATED Collected: 03/10/2018 Status: F Source: [place] 9:42 AM [facility] [place] TYPE CODE TESTS RESULT OUT OF RANGE REFERENCE UNITS LAB L100.1000 4.4-11.0 K/mm3 High WBC 12.7 LAB L100.1200 4.2-5.4 M/mm3 Low RBC 3.91 LAB L100.1300 12.0-15.0 g/dl Low HGB 9.0 LAB L100.1400 37-47 % Low HCT 31.3 LAB L100.1500 81-99 fL Low MCV 80.1 LAB L100.1600 27.0-32.0 pg Low MCH 23.0 LAB L100.1700 32-36 g/gl Low MCHC 28.8 LAB L100.1810 11.6-14.6 % High RDW CV 17.6 LAB L100.1820 35.1-43.9 fl High RDW SD 49.3 LAB L100.1900 150-450 K/mm3 Normal PLT 267 LAB L100.2000 6.2-12.0 fl Normal MPV 12.0 LAB L100.2100 47-70 % High NEUT% 72.6 LAB L100.2200 19-41 % Low LY% 18.1 LAB L100.2300 0-10 % Normal MONO% 6.0 LAB L100.2400 0-5 % Normal EO% 2.4 LAB L100.2500 0-1 % Normal BASO% 0.4 LAB L100.2550 0.0-0.9 % Normal IM GRAN % 0.500 Result Comment: IG% - Immature Granulocytes (promyelocytes, myelocytes and metamyelocytes) > 1% indicates that a LEFT SHIFT is Present. LAB L100.2620 2.0-7.7 X10 3/uL High Absolute Neut 9.2 LAB L100.2720 0.83-4.51 X10 3/ul Normal Absolute Lymph 2.30 Performed By: #### L100.0100 #### [facility] [address] [place], [address] COMPREHENSIVE METABOLIC Collected: 03/10/2018 Status: F Source: [facility] 9:42 AM [facility] [place] TYPE CODE TESTS RESULT OUT OF RANGE REFERENCE UNITS LAB L501.0100 74-106 mg/dL High GLU 272 Result Comment: Glucose result greater than or equal to 200 mg/dL suggests DIABETES MELLITUS per A.D.A. criteria. Please note revised GLUCOSE reference range effective 2017. LAB L501.1000 7-18 mg/dL Normal BUN 15 LAB L501.1100 0.55-1.02 mg/dL Normal CREAT,SERUM 0.79 Result Comment: The validity of the calculated GFR AND GFRAA in patients over 70 years has not been determined. Clinical correlation is essential. LAB L501.1110 >60 mL/min Normal EST GFR 74 Result Comment: Non- GFR Calc LAB L501.1115 >60 mL/min Normal EST GFR - AA 90 Result Comment: GFR Calc LAB L501.1300 10-20 RATIO Normal BUN/CRE 18.9 LAB L501.1500 6.4-8.2 g/dL T Normal PROT 6.9 LAB L501.1800 3.2-5.0 g/dL Low ALB 3.1 LAB L501.1950 2.2-4.2 g/dL Normal GLOB 3.8 LAB L501.2000 0.9-2.4 RATIO Low A/G 0.8 LAB L501.2200 8.5-10.1 mg/dL CA Normal 8.5 LAB L501.4100 15-37 U/L Low AST 14 Result Comment: Slight Hemolysis, Result may be falsely increased. LAB L501.4305 45-117 U/L Normal ALK P 95 LAB L501.4405 13-56 U/L Normal ALT 23 LAB L501.4600 0.20-1.00 mg/dL Normal T BILI 0.70 LAB L501.5300 136-145 mmol/L Normal NA 138 LAB L501.5600 3.5-5.1 mmol/L Normal K 4.7 Result Comment: Slight Hemolysis, Result may be falsely increased. LAB L501.5900 98-107 mmol/L Normal CL 102 LAB L501.6100 21.0-32.0 mmol/L Normal CO2 27.0 LAB L501.6200 5-15 Normal 9 GAP Performed By: #### L500.4050, L501.9520 #### [facility] [address] [place], [place], [address] THYROID STIM HORMONE Collected: 03/10/2018 Status: F Source: [place] (T[facility]) 9:42 AM [facility] [place] TYPE CODE TESTS RESULT OUT OF RANGE REFERENCE UNITS LAB L501.9520 0.358-3.74 uIU/mL Low TSH 0.13 Performed By: #### L500.4050, L501.9520 #### [facility] [address] [place], [place], [address] VITAMIN D,25 HYDROXY Collected: 03/10/2018 Status: F Source: [place] 9:42 AM [facility] [place] TYPE CODE TESTS RESULT OUT OF RANGE REFERENCE UNITS LAB L506.1000 29.95-100.01 ng/mL Normal Vitamin D 36.5 25-OH Result Comment: Vitamin D 25(OH) Status Range Deficiency <20 ng/mL (50nmol/L) Insuffciency 20 - 30 ng/mL (50 - 75 nmol/L) Sufficiency 30 - 100 ng/mL (75 - 250 nmol/L) Toxicity >100 ng/mL (>250 nmol/L) Performed By: #### L506.1000 #### [facility] [address] [place], [place], [address] T3 UPTAKE Collected: 03/10/2018 Status: F Source: [place] 9:23 AM [facility] [place] TYPE CODE TESTS RESULT OUT OF RANGE REFERENCE UNITS LAB L501.9210 30-39 % 38 Normal T3 UPTAKE LAB L501.9410 1.4-4.5 Test Normal T7 (FTI) not performed Performed By: #### L501.9195, L506.0400 #### [facility] [address] [place], [address] T4 FREE DIRECT Collected: 03/10/2018 Status: F Source: [place] 9:23 AM [facility] [place] TYPE CODE TESTS RESULT OUT OF RANGE REFERENCE UNITS LAB L506.0400 0.76-1.46 ng/dL Normal T4 FREE 1.05 DIRECT Performed By: #### L501.9195, L506.0400 #### [facility] [address] [place], [address] ABD INC DECUB Observed: 01/20/2018 Status: F Source: [place] AND/OR ERECT 4:21 PM [facility] [place] [facility] Imaging Services [address] [place] [address] Abd Inc Decub and/or Erect MR#: [id number] Acct: [id number] Name: LARRY MALDONADO Rep #: [id number] : 1940 F 78 From: Nighat Del Rio MD PCP: Riley Liang MD, Chi Status: REG CLI Study: Abd Inc Decub and/or Erect Date of Exam: 01/20/18 Exam# [id number] Ordering Dr: Riley Liang MD STUDY: X-RAY - ABDOMEN/PELVIS REASON FOR EXAM: Female, 78 years old. Abdominal pain and diarrhea TECHNIQUE: Supine and upright views of the abdomen and pelvis were obtained. COMPARISON: December 17, 2017 FINDINGS: The lung bases were not imaged. There is an unremarkable bowel gas pattern. There is no demonstrated free abdominal air. There is no demonstrated abnormality of the major organs. There are diffuse vascular calcifications. The soft tissues are unremarkable. There are mild degenerative changes in the visualized spine. RAD/Abd Inc Decub and/or Erect IMPRESSION: No acute abnormalities are seen in the abdomen or pelvis. There is moderate stool in the colon. Electronically Signed: Nighat Del Rio MD at 16:08 EDT Tel Direct: [phone], Service support , CC: Riley Liang MD Judicial Reporter: Signed CBC W/DIFF, AUTOMATED Collected: 01/07/2018 Status: F Source: [place] 12:19 PM [facility] [place] TYPE CODE TESTS RESULT OUT OF RANGE REFERENCE UNITS LAB L100.1000 4.4-11.0 K/mm3 Normal WBC 10.3 LAB L100.1200 4.2-5.4 M/mm3 Low RBC 4.14 LAB L100.1300 12.0-15.0 g/dl Low HGB 10.1 LAB L100.1400 37-47 % Low HCT 33.4 LAB L100.1500 81-99 fL Low MCV 80.7 LAB L100.1600 27.0-32.0 pg Low MCH 24.4 LAB L100.1700 32-36 g/gl Low MCHC 30.2 LAB L100.1810 11.6-14.6 % High RDW CV 16.9 LAB L100.1820 35.1-43.9 fl High RDW SD 49.5 LAB L100.1900 150-450 K/mm3 Normal PLT 271 LAB L100.2000 6.2-12.0 fl High MPV 12.1 LAB L100.2100 47-70 % Normal NEUT% 69.5 LAB L100.2200 19-41 % Normal LY% 21.0 LAB L100.2300 0-10 % Normal MONO% 6.8 LAB L100.2400 0-5 % Normal EO% 2.0 LAB L100.2500 0-1 % Normal BASO% 0.4 LAB L100.2550 0.0-0.9 % Normal IM GRAN % 0.300 Result Comment: IG% - Immature Granulocytes (promyelocytes, myelocytes and metamyelocytes) > 1% indicates that a LEFT SHIFT is Present. LAB L100.2620 2.0-7.7 X10 3/uL Normal Absolute Neut 7.1 LAB L100.2720 0.83-4.51 X10 3/ul Normal Absolute Lymph 2.15 Performed By: #### L100.0100 #### [facility] [address] [place], [address] COMPREHENSIVE METABOLIC Collected: 01/07/2018 Status: F Source: [place] 12:19 PM [facility] [place] TYPE CODE TESTS RESULT OUT OF RANGE REFERENCE UNITS LAB L501.0100 74-106 mg/dL High GLU 311 Result Comment: Glucose result greater than or equal to 200 mg/dL suggests DIABETES MELLITUS per A.D.A. criteria. Please note revised GLUCOSE reference range effective 2017. LAB L501.1000 7-18 mg/dL High BUN 19 LAB L501.1100 0.55-1.02 mg/dL Normal CREAT,SERUM 0.84 Result Comment: The validity of the calculated GFR AND GFRAA in patients over 70 years has not been determined. Clinical correlation is essential. LAB L501.1110 >60 mL/min Normal EST GFR 70 Result Comment: Non- GFR Calc LAB L501.1115 >60 mL/min Normal EST GFR - AA 85 Result Comment: GFR Calc LAB L501.1300 10-20 RATIO High BUN/CRE 22.7 LAB L501.1500 6.4-8.2 g/dL T Normal PROT 6.7 LAB L501.1800 3.2-5.0 g/dL Normal ALB 3.5 LAB L501.1950 2.2-4.2 g/dL Normal GLOB 3.2 LAB L501.2000 0.9-2.4 RATIO Normal A/G 1.1 LAB L501.2200 8.5-10.1 mg/dL CA Normal 8.7 LAB L501.4100 15-37 U/L Low AST 12 LAB L501.4305 45-117 U/L Normal ALK P 102 LAB L501.4405 13-56 U/L Normal ALT 20 Result Comment: Please note revised ALT reference range effective 2017. LAB L501.4600 0.20-1.00 mg/dL Normal T BILI 0.70 LAB L501.5300 136-145 mmol/L Low NA 135 LAB L501.5600 3.5-5.1 mmol/L Normal K 4.3 LAB L501.5900 98-107 mmol/L Normal CL 99 LAB L501.6100 21.0-32.0 mmol/L Normal CO2 27.0 LAB L501.6200 5-15 Normal GAP 9 Performed By: #### L500.4050, L501.9520 #### [facility] [address] [place], [address] THYROID STIM HORMONE Collected: 01/07/2018 Status: F Source: [place] (TSH) 12:19 PM [facility] [place] TYPE CODE TESTS RESULT OUT OF RANGE REFERENCE UNITS LAB L501.9520 0.358-3.74 uIU/mL Low TSH 0.30 Performed By: #### L500.4050, L501.9520 #### [facility] [address] [place], [address] VITAMIN D,25 HYDROXY Collected: 01/07/2018 Status: F Source: [place] 12:19 PM [facility] TYPE CODE TESTS RESULT OUT OF REFERENCE UNITS RANGE LAB L506.1000 29.95-100.01 ng/mL Low Vitamin D 12.1 25-OH Result Comment: Vitamin D 25(OH) Status Range Deficiency <20 ng/mL (50nmol/L) Insuffciency 20 - 30 ng/mL (50 - 75 nmol/L) Sufficiency 30 - 100 ng/mL (75 - 250 nmol/L) Toxicity >100 ng/mL (>250 nmol/L) Performed By: #### L506.1000 #### [facility] [address] [place], [address] STOOL Observed: 12/18/2017 Status: F Source: [place] LACTOFERRIN/WBC 7:00 AM [facility] [place] Stool Lacto/WBC Normal Reference Range = Negative Fecal WBC Lactoferrin Negative: No Fecal WBC Lactoferrin present Performed By: #### M100.0605, M100.7900, M100.6796, M100.637 #### [facility] [address] [place], [address] Observed: 12/18/2017 Status: F Source: [facility] STOOL OCCULT BLOOD 7:00 AM [facility] [place] STOB iFOB Occult Blood Negative Performed By: #### M100.0605, M100.7900, M100.6796, M100.637 #### [facility] [address] [place], [address] Observed: 12/18/2017 Status: F Source: [place] CDIFF (MOLECULAR) 7:00 AM [facility] [place] Cdiff-Molecular Normal Reference Range = Negative C. Diff DNA Negative- No toxigenic C. Diff DNA Detected NAAT METHOD Testing was performed using nucleic acid amplification Performed By: #### M100.0605, M100.7900, M100.6796, M100.637 #### [facility] [address] [place], [address] Observed: 12/18/2017 Status: F Source: [place] ENTERIC PATHOGEN 7:00 AM [facility] PANEL STO[place] REPOSITORY EP PANEL STOOL Normal Reference Range = Not Detected Not detected for Campylobacter group, Salmonella species, Shigella species, Vibrio Group, Yersinia enterocolitica, EHEC (Shiga Toxin 1, Shiga Toxin 2), Norovirus Gl/Gll, and Rotavirus A. Other common stool pathogens are not detected on this panel include: Aeromonas/Plesiomonas or parasites. Order testing for these organisms separately if suspected. This is an amplified DNA test which makes it both specific and sensitive. CAMPYLOBACTER Not Detected Salmonella Not Detected Shigella sp. Not Detected Shiga Toxin Not Detected Yersinia Not Detected VIBRIO Not Detected Norovirus Not Detected Rotavirus Not Detected Performed By: #### M100.0605, M100.7900, M100.6796, M100.637 #### [facility] [address] [place], [address] Observed: 12/18/2017 Status: F Source: [place] OVA AND PARASITES 8623 7:00 AM [facility] O + P 8623 OVA AND PARASITES EXAM, ROUTINE These results were obtained using wet preparation(s) and trichrome stained smear. This test does not include testing for Crytosporidium parvum, Cyclospora, or Microsporidia. TESTING PERFORMED AT [facility]. ORIGINAL REPORT ON FILE IN LAB CONTAINS ADDITIONAL TEST SITE INFORMATION. Ova/Parasite Exam NO OVA, CYSTS, OR PARASITES FOUND. Performed By: #### M600.5000 #### [facility] [address] [place], [address] Observed: 12/17/2017 Status: F Source: [place] CULTURE, URINE 2:59 PM [facility] [place] Urine Culture Probable skin contaminants. ORGANISM 1: Mixed Gram Positive Organisms Holt Count 80,000-100,000 Performed By: #### M100.0650 #### [facility] [address] [place], [address] CBC W/DIFF, AUTOMATED Collected: 12/17/2017 Status: F Source: [place] 1:37 PM [facility] [place] TYPE CODE TESTS RESULT OUT OF RANGE REFERENCE UNITS LAB L100.1000 4.4-11.0 K/mm3 Normal WBC 9.4 LAB L100.1200 4.2-5.4 M/mm3 Low RBC 3.53 LAB L100.1300 12.0-15.0 g/dl Low HGB 8.7 LAB L100.1400 37-47 % Low HCT 29.4 LAB L100.1500 81-99 fL Normal MCV 83.3 LAB L100.1600 27.0-32.0 pg Low MCH 24.6 LAB L100.1700 32-36 g/gl Low MCHC 29.6 LAB L100.1810 11.6-14.6 % High RDW CV 17.2 LAB L100.1820 35.1-43.9 fl High RDW SD 49.7 LAB L100.1900 150-450 K/mm3 Normal PLT 214 LAB L100.2000 6.2-12.0 fl High MPV 12.4 LAB L100.2100 47-70 % Normal NEUT% 58.1 LAB L100.2200 19-41 % Normal LY% 24.4 LAB L100.2300 0-10 % Normal MONO% 8.9 LAB L100.2400 0-5 % High EO% 7.9 LAB L100.2500 0-1 % Normal BASO% 0.4 LAB L100.2550 0.0-0.9 % Normal IM GRAN % 0.300 Result Comment: IG% - Immature Granulocytes (promyelocytes, myelocytes and metamyelocytes) > 1% indicates that a LEFT SHIFT is Present. LAB L100.2620 2.0-7.7 X10 3/uL Normal Absolute Neut 5.5 LAB L100.2720 0.83-4.51 X10 3/ul Normal Absolute Lymph 2.29 Performed By: #### L100.0100 #### [facility] [address] [place], [address] COMPREHENSIVE METABOLIC Collected: 12/17/2017 Status: F Source: [facility] 1:37 PM [facility] [place] TYPE CODE TESTS RESULT OUT OF RANGE REFERENCE UNITS LAB L501.0100 74-106 mg/dL High GLU 388 Result Comment: Glucose result greater than or equal to 200 mg/dL suggests DIABETES MELLITUS per A.D.A. criteria. Please note revised GLUCOSE reference range effective 2017. LAB L501.1000 7-18 mg/dL Normal BUN 12 LAB L501.1100 0.55-1.02 mg/dL Normal CREAT,SERUM 0.87 Result Comment: The validity of the calculated GFR AND GFRAA in patients over 70 years has not been determined. Clinical correlation is essential. LAB L501.1110 >60 mL/min Normal EST GFR 67 Result Comment: Non- GFR Calc LAB L501.1115 >60 mL/min Normal EST GFR - AA 81 Result Comment: GFR Calc LAB L501.1300 10-20 RATIO Normal BUN/CRE 13.8 LAB L501.1500 6.4-8.2 g/dL Low T PROT 6.2 LAB L501.1800 3.2-5.0 g/dL Low ALB 2.9 LAB L501.1950 2.2-4.2 g/dL Normal GLOB 3.3 LAB L501.2000 0.9-2.4 RATIO Normal A/G 0.9 LAB L501.2200 8.5-10.1 mg/dL Low CA 7.9 LAB L501.4100 15-37 U/L Low AST 14 LAB L501.4305 45-117 U/L Normal ALK P 84 LAB L501.4405 13-56 U/L Normal ALT 21 Result Comment: Please note revised ALT reference range effective 2017. LAB L501.4600 0.20-1.00 mg/dL Normal T BILI 0.40 LAB L501.5300 136-145 mmol/L Normal NA 137 LAB L501.5600 3.5-5.1 mmol/L Normal K 3.6 LAB L501.5900 98-107 mmol/L Normal CL 101 LAB L501.6100 21.0-32.0 mmol/L Normal CO2 24.0 LAB L501.6200 5-15 Normal GAP 12 Performed By: #### L500.4050, L501.9520 #### [facility] [address] [place], [address] THYROID STIM HORMONE Collected: 12/17/2017 Status: F Source: [place] (TSH) 1:37 PM [facility] [place] TYPE CODE TESTS RESULT OUT OF RANGE REFERENCE UNITS LAB L501.9520 0.358-3.74 uIU/mL Normal TSH 0.36 Performed By: #### L500.4050, L501.9520 #### [facility] [address] [place], [address] ABD INC DECUB Observed: 12/17/2017 Status: F Source: [place] AND/OR ERECT 12:33 PM [facility] [place] [facility] Imaging Services [address] [place] [address] Abd Inc Decub and/or Erect MR#: [id number] Acct: [id number] Name: LARRY MALDONADO Rep #: [id number] : 1940 F 77 From: Crow Avalos MD PCP: Riley Liang MD, Chi Status: REG CLI Study: Abd Inc Decub and/or Erect Date of Exam: 12/17/17 Exam# [id number] Ordering Dr: Riley Liang MD STUDY: X-RAY - ACUTE ABDOMINAL SERIES REASON FOR EXAM: Female, 77 years old. Lower abdominal pelvic pain and diarrhea. TECHNIQUE: Single view of the chest. Supine, and erect view(s) of the abdomen were obtained. COMPARISON: None. FINDINGS: Elevation of the right hemidiaphragm. There is an abundance of fecal material throughout the colon. Calcified splenic artery. Normal visualized osseous structures. Atherosclerotic calcification. RAD/Abd Inc Decub and/or Erect IMPRESSION: Large amount of fecal material is seen in the colon. Electronically Signed: Crow Avalos MD at 13:21 EST Tel [phone], Service support , CC: Riley Liang MD Judicial Reporter: Signed URGENT CARE VISIT Observed: 11/23/2017 Status: F Source: [place] REPORT 2:09 PM [facility] [address] [place] [address] OFFICE VISIT Date of Service: 11/23/17 MR#: [id number] Acct: [id number] Name: LARRY MALDONADO Rep #: [id number] : 1940 Provider: Neto WADDELL Age/Sex: 77/F Location[facility] Status: Signed Intake Vital Signs11/23/17 Height 5 ft Intake Visit Reasons: COLD, COUGH, CONGESTION Chief Complaint: cough Allergies No Known Allergies Allergy (Verified 11/23/17 12:45) Medications Albuterol Sulfate [Proair Hfa] 2 puff INHALATION BID 12/23/13 [History Confirmed 05/07/17] Gabapentin 600 cap PO QHS 12/23/13 [History Confirmed 05/07/17] Insulin Lispro [Humalog KwikPen] 30 unit SC TIDCM 12/23/13 [History Confirmed 05/14/17] Aspirin [Ecotrin] 2 tab PO DAILY 12/29/13 [History Confirmed 05/07/17] Acetaminophen [Tylenol] 325 mg PO PRN PRN 01/25/15 [History Confirmed 05/07/17] Loperamide [Imodium] 2 mg PO Q2H PRN PRN 01/25/15 [History Confirmed 05/07/17] Nitroglycerin [Nitrostat] 0.4 mg SUBLINGUAL PRN PRN 01/25/15 [History Confirmed 05/07/17] Atorvastatin Calcium [Lipitor] 40 mg PO QHS 11/05/15 [History Confirmed 05/07/17] Insulin Glargine,Hum.rec.anlog [Toujeo Solostar] 80 unit SQ DAILY 11/05/15 [History Confirmed 05/07/17] Atenolol [Tenormin (beta natividad)] 25 mg PO BID #60 tab 11/07/15 [Rx Confirmed 05/07/17] Isosorbide Mononitrate [Imdur] 30 mg PO DAILY #30 tab 11/07/15 [Rx Confirmed 05/07/17] Lisinopril [Zestril] 20 mg PO BID #60 tab 11/07/15 [Rx Confirmed 05/07/17] Duloxetine Hcl [Cymbalta] 30 mg PO DAILY 10/01/16 [History Confirmed 05/07/17] Furosemide [Lasix] 20 mg PO BIDLX 02/10/17 [History Confirmed 05/07/17] Iron Carbonyl [Feosol] 65 mg PO QODAY 05/07/17 [History Confirmed 05/07/17] Iron Carbonyl [Feosol] 130 mg PO QODAY 05/07/17 [History Confirmed 05/07/17] levofloxacin 500 mg tablet 500 mg PO Q24H 7 Days #7 tab 11/23/17 [Rx Confirmed 11/23/17] PFSH Medical History Anemia (Acute) Arthritis (Acute) Cancer (Acute) Chest pain (Acute) Diabetes (Acute) Heart disease (Acute) Migraine (Acute) SOB (shortness of breath) (Acute) HTN (hypertension) (Chronic) Social History Smoking Status: Never smoker alcohol intake: never HPI HPI Chief Complaint: cough Details: LARRY MALDONADO, is a 77 F who presents to the office today for initial evaluation approximately 2 week history of progressively worsening cough and fatigue. Patient notes her cough and fatigue and progressively worsened steadily over the course of the last 2 weeks, stating she is sleeping anywhere from 16-20 hours a day. She notes prior to getting sick that she notes that sleep on average 6-7 hours a night. She also was having had chest pressure over the last 2 days using [id number] nitroglycerin to assist with her symptoms; she has noted no complaints of chest pressure or shortness of breath today and has not utilized sublingual nitroglycerin today. Initially she notes occasional chills cough is productive purulent. She notes no other complaints at this time. ROS Const Constitutional: Positive for chills; no excessive sweating, abnormal sleep pattern, fever(s), night sweats or body ache Eyes Eyes: No change in vision ENT ENT: No abnormal hearing, ear pain, ear discharge, ear pressure, hearing loss, post nasal drip or sinus pressure Resp Respiratory: Positive for cough; no chest congestion Cardio Cardiology: No excessive sweating, chest pain at rest, chest pain with exertion, shortness of breath, dyspnea on exertion, irregular heart rhythm, generalized swelling or leg pain with exertion Gastro GI: No abdominal pain, change in stool character or change in bowel habits Musc Musculoskeletal: No joint pain, back pain or limited range of motion Skin Skin: No change in hair or sores Neuro Neurology: No abnormal hearing, abnormal speech or abnormal movements Psych Psychiatric: No abnormal sleep pattern Endo Endocrine: No excessive sweating, change in body appearance, cold intolerance or heat intolerance Aller/Imm Allergy/Immunologic: No food intolerance Alan/Lymp Hematologic/Lymphatic: No easy bruising Exam Const General: cooperative, healthy appearing, no acute distress Nutritional Appearance: average body habitus, overweight Orientation: alert, awake, oriented x3 HENMT Head: normal to inspection Ears: hearing grossly normal bilaterally, external ears normal, TM's normal bilaterally, EAC's normal Nose: external nose normal, nares normal, septum normal, no nasal discharge Eyes General: appearance normal, both eyes and all related structures Neck Neck: normal visual inspection, full ROM, no lymphadenopathy, no meningeal signs, supple Neck mass: No Thyroid: thyroid normal Lymphatic: no lymphadenopathy noted Chest Chest palpation AND inspection: normal inspection of the chest Resp Effort AND Inspection: normal respiratory effort, able to speak in complete sentences, symmetric chest movement, cough Quality of cough: wet, other (2v CXR today = No acute changes per radiologist) Auscultation: Bilateral: Clear to Auscultation Cardio Palpation: normal PMI Rate: regular rate Rhythm: regular rhythm Heart Sounds: S1 normal, S2 normal, no gallops, no murmurs, no rubs Pulses: radial pulses present GI Inspection: normal to inspection Palpation: soft, no hepatosplenomegaly Skin General: no rashes or lesions noted Neuro General: alert, awake, oriented x3, gait normal Cognition: normal cognition Speech: speech normal Gait: normal gait Motor: muscle tone normal throughout Sensory Exam: no sensory deficits noted Extrem General: normal to inspection Psych Appearance: grossly normal Mental Status: mental status grossly normal Mood: congruent mood Affect: normal affect Speech and Movement: speech and movement normal Attitude: cooperative Thought Process: normal Thought Content: normal Judgment: judgment good Assessment AND Plan Problems 1. Bronchitis J40 Plan Levaquin as prescribed today. Clear fluids, rest, Tylenol as needed for symptomatic relief. Patient informed that she must notify her protective officer today regarding her recent chest pressure symptoms as noted in HPI above. Follow-up with PCP in the next 3-5 days should symptoms not improve, emergency room sooner should symptoms worsen or other concerns develop. Patient and daughter state acknowledging understanding all the above. This note was generated with [employer] dictation software. It may contain incorrect words, spelling, and punctuation that were not noted in checking the note before signing. Orders Orders: Medications New: Coding Level of Care Code Off vis,est,level 4 Diagnoses Bronchitis J40 11/23/17 1409 <Electronically signed by Neto WADDELL> Date Neto WADDELL Cosigner Signature: Date (if applicable) CC: CHEST PA AND LATERAL Observed: 11/23/2017 Status: F Source: [facility] 1:03 PM [facility] REPOSITORY [facility] Imaging Services [address] [place] [address] Chest PA and Lateral MR#: [id number] Acct: [id number] Name: LARRY MALDONADO Rep #: [id number] : 1940 F 77 From: John Vidales MD PCP: Riley Liang MD, Chi Status: REG CLI Study: Chest PA and Lateral Date of Exam: 11/23/17 Exam# [id number] Ordering Dr: Neto Roman STUDY: X-RAY CHEST REASON FOR EXAM: Female, 77 years old. Cough TECHNIQUE: PA and lateral views of the chest. COMPARISON: Chest x-ray on November 05, 2015. FINDINGS: The lungs are clear and expanded. There is no demonstrated pleural abnormality. There is mild cardiac enlargement. Normal mediastinum and twila. Normal visualized pulmonary arteries. There is atherosclerotic calcification of the aortic arch with tortuosity. Normal visualized thoracic spine. Normal visualized ribs, clavicles, and shoulders. There is no demonstrated abnormality of the visualized soft tissue structures of the upper abdomen. RAD/Chest PA and Lateral IMPRESSION: Mild cardiomegaly. No signs of acute disease. Improved pulmonary vascular congestion since the last examination Electronically Signed: John Vidales MD, FACR at 13:24 EST , Service support , CC: Neto WADDELL; Riley Liang MD Judicial Reporter: Signed ALLERGIES ALLERGIES DATE TYPE / CODE NAME / CODE REACTION SEVERITY SOURCE 07/31/2018 Drug rosuvastatin/ MYALGIAS MO [facility] Allergy/4160 [id number](RX Hospital 56079(SNOMED NORM) Repository CT) 11/23/2017 Drug No Known Unknown [facility] Allergy/4160 Allergies/F00 Hospital 32827(SNOMED 9388058(RXNOR Repository CT) M) ENCOUNTERS ENCOUNTERS ADMIT/DISCHARGE ACCOUNT ADMITTING ENCOUNTER LOCATION SOURCE NUMBER CLASS 11/05/2018 [id number] Ambulatory [place] [facility] ing:POLAB3 Repository 10/29/[id number] [facility] 7 Encounter [facility] [place] g:H.SD Repository 10/27/2018 [id number] Ambulatory [place] [facility] 6 [facility] Hospital ing:NM Repository 10/25/2018 [id number] Ambulatory [place] [facility] 8 [facility] ing:NM Repository 10/13/2018 [id number] Ambulatory [place] 9 [facility] ing:CT Repository 10/13/2018 [id number] Ambulatory [place] 2 [facility] ing:POLAB3 Repository 09/21/2018 [id number] Ambulatory [place] 2 [facility] ing:POLAB3 Repository 08/23/2018 [id number] Ambulatory [place] 7 [facility] ing:RAD Repository 07/31/2018/ [id number] Emergency [facility] 7 [facility] ing:ED Repository 07/28/2018 [id number] Ambulatory [place] 1 [facility] ing:POLAB3 Repository 07/21/2018 [id number] Ambulatory [place] [facility] Repository 07/19/2018 [id number] Ambulatory [place] [facility] ing:MED[facility] Repository 07/16/2018 [id number] Ambulatory [place] [facility] 0 [facility] ing:MED[facility]P Repository 07/14/2018 [id number] Ambulatory [place] [facility] 9 [facility] ing:MED[facility]P Repository 07/12/2018 [id number] Ambulatory [place] 7 [facility] ing:MED[facility]P Repository 06/17/2018 [id number] [facility] [place] [facility] ing:POLAB3 Repository 06/09/2018/ [id number] Ambulatory [facility]:B [facility] Repository 06/07/2018 [id number] Ambulatory [facility]:B [place] [facility] Repository 05/21/2018 [id number] [facility]ulatory [place] [facility] ing:LAB Repository 05/03/2018 [id number] [facility] [place] [facility] ing:POLAB3 Repository 04/09/2018 [id number] Ambulatory [place] [facility] ing[facility] Repository 04/09/2018 [id number] Ambulatory BMSBuilding:W [place] 8 [facility] Repository 03/31/2018/ [id number] Ambulatory BMSBuilding:B [place] 8 5 [facility] Repository 03/11/2018 [id number] Ambulatory BMSBuilding:B [place] 2 [facility] Repository 03/10/2018 [id number] Ambulatory [facility] [place] [facility] ing:POLAB3 Repository 03/02/2018 [id number] Ambulatory [facility] 5 [facility] Repository 01/20/2018 [id number] Ambulatory [place] [facility] ing:RAD Repository 01/07/2018 [id number] Ambulatory [facility] ing:POLAB3 Repository 12/28/2017 [id number] Ambulatory BMSBuilding:B [place] 9 [facility] Repository 12/23/2017 [id number] Ambulatory BMSBuilding:B [place] [facility] Repository 12/18/2017 [id number] Ambulatory [place] [facility] ing:[facility] Repository 12/17/2017 [id number] Ambulatory [facility] ing:POLAB3 Repository 12/17/2017 [id number] Ambulatory [facility] [place] 9 [facility] ing:RAD Repository 11/23/2017 [id number] Ambulatory [facility] ing:HPRAD Repository 11/23/2017/ [id number] Ambulatory BMSBuilding:B [place] [address] [facility] Repository PAYERS PAYERS ENCOUNTER GUARANTOR PAYER SUBSCRIBER SOURCE 11/05/2018 LARRY Mayorga [id number] Primary LARRY L CROFTDOB: [place] [address] Insurance:[facility] [id number] [place] [address] [facility] [id number]: [phone] ADVANTAPolicy Number: Repository [phone] () [id number] Date:6630-83-08CM [id number] [place] [address]DT: 11/05/2018 Secondary NOT GIVENUNK [place] Insurance:SELF PAY [facility] Number: Effective Repository Date:2018-11-05 10/29/2018 LARRY Mayorga [id number] Primary [facility]K [facility] [address] Insurance:[facility] [place] [address] ALL ADV Repository [address]Cnq: [phone] PLANSPolicy Number: [id number] () [id number] Date:4615-99-76VR [id number] [place] [address]LN: 10/27/2018 LARRY L [id number] Primary LARRY L CROFTDOB: [place] [address] Insurance:[facility] [id number] [place] [address] [facility] [address]Qln: [phone] ADVANTAPolicy Number: Repository [phone] () [id number] Date:2656-47-99GO [id number] [place] [address]QD: 10/27/2018 Secondary NOT GIVENUNK [facility] Insurance:SELF PAY [facility] Number: Effective Repository Date:2018-10-25 10/25/2018 LARRY L [id number] Primary LARRY L CROFTDOB: Chavo [address] Insurance:[facility] [id number] [place] [address] [facility] [address]: (234) ADVANTAPolicy Number: Repository [phone] () [id number] Date:4096-75-14GQ [address] [place] [address] 80655RS: 10/25/2018 Secondary NOT GIVENUNK Gem Insurance:SELF PAY [facility] Number: Effective Repository Date:2018-10-13 10/13/2018 LARRY L [id number] Primary LARRY L CROFTDOB: Chavo [address] Insurance:[employer] [id number] [place] [address] [facility] [address]Tel: (234) ADVANTAPolicy Number: Repository [phone] () [id number] Date:9110-88-36JE [address] [place] [address] 83960CK: 10/13/2018 Secondary NOT GIVENUNK Gem Insurance:SELF PAY [facility] Number: Effective Repository Date:2018-10-13 10/13/2018 LARRY L [id number] Primary LARRY L CROFTDOB: Chavo [address] Insurance:[employer] [id number] [place] [address] [facility] [address]Obc: (234) [employer]ANTAPolicy Number: Repository [phone] () [id number] Date:0161-43-21AG [address] [place] [address] 40582MH: 10/13/2018 Secondary NOT GIVENUNK Chavo Insurance:SELF PAY [facility] Number: Effective Repository Date:2018-10-13 09/21/2018 LARRY L [id number] Primary LARRY L CROFTDOB: Chavo [address] Insurance:[employer] [id number] [place] [address] [facility] [address]Gwb: (234) [employer]ANT[employer]olicy Number: Repository [phone] () [id number] Date:9380-79-06GI [address] [place] [address] 23080SW: 09/21/2018 Secondary NOT GIVENUNK Chavo Insurance:SELF PAY [facility] Number: Effective Repository Date:2018-09-21 08/23/2018 LARRY L [id number] Primary LARRY L CROFTDOB: Gem [address] Insurance:ANTH [id number] [place] [address] [facility] [address]Tel: (234) [employer]ANT[facility]olicy Number: Repository [phone] () [id number] Date:2720-43-97CM [address] [place] [address] 61252IU: 08/23/2018 Secondary NOT GIVENUNK Gem Insurance:SELF PAY [facility] Number: Effective Repository Date:2018-08-23 07/31/2018 LARRY L [id number] Primary LARRY L CROFTDOB: Gem [address] Insurance:[facility] [id number] [place] [address] [facility] [address]Tel: (234) [employer]ANT[facility]olicy Number: Repository [phone] () [id number] Date:8618-13-47XM [address] [place] [address] 94208WB: 07/31/2018 Secondary NOT GIVENUNK Chavo Insurance:SELF PAY [facility] Number: Effective Repository Date:2018-07-31 07/28/2018 LARRY L [id number] Primary LARRY L CROFTDOB: Gem [address] Insurance:[facility] [id number] [place] [address] [facility] [address]Tel: (234) [employer]ANT[employer]olicy Number: Repository [phone] () [id number] Date:9160-28-50YS [address] [place] [address] 95278DP: 07/28/2018 Secondary NOT GIVENUNK Gem Insurance:SELF PAY [facility] Number: Effective Repository Date:2018-07-22 07/21/2018 LARRY L [id number] Primary LARRY L CROFTDOB: Chavo [address] Insurance:[facility] [id number] [place] [address] [facility] [address]Tel: (234) ADVANTAPolicy Number: Repository [phone] () [id number] Date:9783-95-13DB [address] [place] [address] 65092AP: 07/21/2018 Secondary NOT GIVENUNK Chavo Insurance:SELF PAY [facility] Number: Effective Repository Date:2018-07-09 07/19/2018 LARRY L [id number] Primary LARRY L CROFTDOB: Chavo [address] Insurance:[employer] [id number] [place] [address] [facility] [address]Tel: (234) ADVANTAPolicy Number: Repository [phone] () [id number] Date:9129-48-31GB [address] [place] [address] 78533PM: 07/19/2018 Secondary NOT GIVENUNK Chavo Insurance:SELF PAY [facility] Number: Effective Repository Date:2018-07-09 07/16/2018 LARRY L [id number] Primary LARRY L CROFTDOB: Chavo [address] Insurance:[employer] [id number] [place] [address] [facility] [address]Tel: (234) ADVANTAPolicy Number: Repository [phone] () [id number] Date:7410-15-22YH [address] [place] [address] 92086XE: 07/16/2018 Secondary NOT GIVENUNK Chavo Insurance:SELF PAY [facility] Number: Effective Repository Date:2018-07-09 07/14/2018 LARRY L [id number] Primary LARRY L CROFTDOB: Chavo [address] Insurance:[employer] [id number] [place] [address] [facility] [address]Tel: (234) ADVANTAPolicy Number: Repository [phone] () [id number] Date:3196-66-83LX [address] [place] [address] 96221UH: 07/14/2018 Secondary NOT GIVENUNK Gem Insurance:SELF PAY [facility] Number: Effective Repository Date:2018-07-09 07/12/2018 LARRY L [id number] Primary LARRY L CROFTDOB: Chavo [address] Insurance:[employer] [id number] [place] [address] [facility] [address]Tel: (234) ADVANTAPolicy Number: Repository [phone] () [id number] Date:6593-05-00YO [address] [place] [address] 24514AR: 07/12/2018 Secondary NOT GIVENUNK Gem Insurance:SELF PAY [facility] Number: Effective Repository Date:2018-07-09 06/17/2018 LARRY L [id number] Primary LARRY L CROFTDOB: Chavo [address] Insurance:ANTH [id number] [place] [address] [facility] [address]Tel: (234) ADVANTAPolicy Number: Repository [phone] () [id number] Date:3325-62-12LI [address] [place] [address] 46199OA: 06/17/2018 Secondary NOT GIVENUNK Chavo Insurance:SELF PAY [facility] Number: Effective Repository Date:2018-06-17 06/09/2018 LARRY L [id number] Primary LARRY L CROFTDOB: Gem [address] Insurance:ANTH [id number] [place] [address] [facility] [address]Tel: (234) ADVANTAPolicy Number: Repository [phone] () [id number] Date:3174-08-26ZV [address] [place] [address] 70942SL: 06/09/2018 Secondary NOT GIVENUNK Gem Insurance:SELF PAY [facility] Number: Effective Repository Date:2018-06-09 06/07/2018 LARRY L [id number] Primary LARRY L CROFTDOB: Chavo [address] Insurance:ANTH [id number] [place] [address] [facility] [address]Tel: (234) ADVANTAPolicy Number: Repository [phone] () [id number] Date:6955-01-45KL [address] [place] [address] 77157VK: 06/07/2018 Secondary NOT GIVENUNK Gem Insurance:SELF PAY [facility] Number: Effective Repository Date:2017-12-24 05/21/2018 LARRY L [id number] Primary LARRY L CROFTDOB: Chavo [address] Insurance:[employer] [id number] [place] [address] [facility] [address]Tel: (234) ADVANTAPolicy Number: Repository [phone] () [id number] Date:8958-41-38KC [address] [place] [address] 10345AZ: 05/21/2018 Secondary NOT GIVENUNK Chavo Insurance:SELF PAY [facility] Number: Effective Repository Date:2018-05-21 05/03/2018 LARRY L [id number] Primary LARRY L CROFTDOB: Chavo [address] Insurance:[employer] [id number] [place] [address] [facility] [address]Tel: (234) ADVANTAPolicy Number: Repository [phone] () [id number] Date:0014-30-76YH [address] [place] [address] 83279LU: 05/03/2018 Secondary NOT GIVENUNK Gem Insurance:SELF PAY [facility] Number: Effective Repository Date:2018-03-19 04/09/2018 LARRY L [id number] Primary LARRY L CROFTDOB: Chavo [address] Insurance:[employer] [id number] [place] [address] [facility] [address]Tel: (234) ADVANTAPolicy Number: Repository [phone] () [id number] Date:4230-93-68BW [address] [place] [address] 56075JB: 04/09/2018 Secondary NOT GIVENUNK Chavo Insurance:SELF PAY [facility] Number: Effective Repository Date:2018-03-31 04/09/2018 LARRY L [id number] Primary LARRY L CROFTDOB: Chavo [address] Insurance:[employer] [id number] [place] [address] [facility] [address]Tel: (234) ADVANTAPolicy Number: Repository [phone] () [id number] Date:7052-34-16IO[address] 68319LY: 04/09/2018 Secondary NOT GIVENUNK Gem Insurance:SELF PAY [facility] Number: Effective Repository Date:2018-04-09 03/31/2018 LARRY L [id number] Primary LARRY L CROFTDOB: Chavo [address] Insurance:[employer] [id number] [place] [address] [facility] [address]Tel: (234) ADVANTAPolicy Number: Repository [phone] () [id number] Date:5941-80-71GQ [address] [place] [address] 73370EZ: 03/31/2018 Secondary NOT GIVENUNK Chavo Insurance:SELF PAY [facility] Number: Effective Repository Date:2018-03-31 03/11/2018 LARRY L [id number] Primary LARRY L CROFTDOB: Gem [address] Insurance:[employer] [id number] [place] [address] [facility] [address]Tel: (234) ADVANTAPolicy Number: Repository [phone] () [id number] Date:1081-56-63TO [address] [place] [address] 12893EU: 03/11/2018 Secondary NOT GIVENUNK Gem Insurance:SELF PAY [facility] Number: Effective Repository Date:2018-03-11 03/10/2018 LARRY L [id number] Primary LARRY L CROFTDOB: Chavo [address] Insurance:[employer] [id number] [place] [address] [facility] [address]Tel: (234) ADVANTAPolicy Number: Repository [phone] () [id number] Date:5144-54-16MC [address] [place] [address]SH: 03/10/2018 Secondary NOT GIVENUNK Chavo Insurance:SELF PAY [facility] Number: Effective Repository Date:2018-01-26 03/02/2018 LARRY L [id number] Primary LARRY L CROFTDOB: Gem [address] Insurance:ANTH [id number] [place] [address] [facility] [address]Tel: (234) ADVANTAPolicy Number: Repository [phone] () [id number] Date:5315-64-33LW [address] [place] [address] 08275TJ: 03/02/2018 Secondary NOT GIVENUNK Gem Insurance:SELF PAY [facility] Number: Effective Repository Date:2018-03-02 01/20/2018 LARRY L [id number] Primary LARRY L CROFTDOB: Chavo [address] Insurance:ANTH [id number] [place] [address] [facility] [address]Tel: (234) ADVANTAPolicy Number: Repository [phone] () [id number] Date:2120-63-13AW [address] [place] [address] 54306YJ: 01/20/2018 Secondary NOT GIVENUNK Gem Insurance:SELF PAY [facility] Number: Effective Repository Date:2018-01-20 01/07/2018 LARRY L [id number] Primary LARRY L CROFTDOB: Chavo [address] Insurance:ANTH [id number] [place] [address] [facility] [address]Tel: (234) ADVANTAPolicy Number: Repository [phone] () [id number] Date:6685-97-97RL [address] [place] [address]YH: 01/07/2018 Secondary NOT GIVENUNK Gem Insurance:SELF PAY [facility] Number: Effective Repository Date:2018-01-07 12/28/2017 LARRY L [id number] Primary LARRY L CROFTDOB: Gem [address] Insurance:[employer] [id number] [place] [address] [facility] [address]Dsp: (408) ADVANTAPolicy Number: Repository [phone] () [id number] Date:9741-06-79BT [id number] [place] [address] 17509JK: 12/28/2017 Secondary NOT GIVENUNK Gem Insurance:SELF PAY [facility] Number: Effective Repository Date:2017-11-16 12/23/2017 LARRY L [id number] Primary Insurance:MMO LARRY L CROFTDOB: Chavo [address] MEDICAREPolicy [id number] Number: Hospital [address]Hlr: (073) [id number] Repository [phone] () Date:1236-05-06QM [address] [place] [address]SX: 12/23/2017 Secondary NOT GIVENUNK Gem Insurance:SELF PAY [facility] Number: Effective Repository Date:2017-09-30 12/18/2017 LARRY L [id number] Primary LARRY L CROFTDOB: Chavo [address] Insurance:[employer] [id number] [place] [address] [facility] 15[address]Vbp: (041) ADVANTAPolicy Number: Repository [phone] () [id number] Date:0649-35-86BE [id number] [place] [address] 06496CV: 12/18/2017 Secondary NOT GIVENUNK Chavo Insurance:SELF PAY [facility] Number: Effective Repository Date:2017-12-18 12/17/2017 LARRY L [id number] Primary LARRY L CROFTDOB: Gem [address] Insurance:[employer]M [id number] [place] [address] [facility] [address]Gmo: (031) ADVANTAPolicy Number: Repository [phone] () [id number] Date:8665-35-28YC [address] [place] [address] 51275KS: 12/17/2017 Secondary NOT GIVENUNK Chavo Insurance:SELF PAY [facility] Number: Effective Repository Date:2017-12-17 12/17/2017 LARRY L [id number] Primary LARRY L CROFTDOB: Gem [address] Insurance:ANTH [id number] [place] [address] [facility] [address]Tel: (234) ADVANTAPolicy Number: Repository [phone] () [id number] Date:9770-35-33IV [address] [place] [address] 98398GQ: 12/17/2017 Secondary NOT GIVENUNK Gem Insurance:SELF PAY [facility] Number: Effective Repository Date:2017-12-17 11/23/2017 LARRY L [id number] Primary LARRY L CROFTDOB: Gem [address] Insurance:[facility] [id number] [place] [address] [facility] [address]Tel: (234) ADVANTAPolicy Number: Repository [phone] () [id number] Date:5763-19-35OS [address] [place] [address] 48081KF: 11/23/2017 Secondary NOT GIVENUNK Gem Insurance:SELF PAY [facility] Number: Effective Repository Date:2017-11-23 11/23/2017 LARRY L [id number] Primary LARRY L CROFTDOB: Gem [address] Insurance:[facility] [id number] [place] [address] [facility] [address]Tel: (234) ADVANTAPolicy Number: Repository [phone] () [id number] Date:9598-25-21UF [address] [place] [address] 74939GL: 11/23/2017 Secondary NOT GIVENUNK Chavo Insurance:SELF PAY [facility] Number: Effective Repository Date:2017-11-23
== END ==
PROVIDERS: Family Provider Family Medicine Geriatric Medicine; PCP Family Medicine Geriatric Medicine; Visit Provider Family Medicine Geriatric Medicine
DX: N39.0 Urinary tract infection, site not specified (principal)
CPT/HCPCS: 87086; 87088

== ENCOUNTER → 2019-02-09 15:47 | Outpatient (CLI) | payer MEDICARE, SELFPAY ==
[2018-09-21 14:56] VITALS: BMI 35.2
[2019-02-09 16:42] LABS: Absolute Lymphocyte Count 2.27 X10^3/ul (0.83-4.51); Absolute Neutrophil Count 9.1 X10^3/uL (2.0-7.7); Basophil# 0.04 X10^3/uL; Basophil% 0.3 % (0-1); Eosinophil# 0.33 X10^3/uL; Eosinophils% 2.6 % (0-5); Hemoglobin 10.5 g/dl (12.0-15.0); Lymphocyte # 2.27 X10^3/ul (4.0); Lymphocyte % 17.9 % (19-41); Mean Corpuscular Hgb 26.5 pg (27.0-32.0); Mean Corpuscular Volume 88.4 fL (81-99); Mean Platelet Vol. 11.1 fl (6.2-12.0); Monocyte# 0.88 X10^3/uL; Platelet Count 318 K/mm3 (150-450); RBC Distribution Width CV 15.5 % (11.6-14.6); RBC Distribution Width SD 50.3 fl (35.1-43.9); Red Blood Count 3.96 M/mm3 (4.2-5.4); White Blood Count 12.7 K/mm3 (4.4-11.0)
[2019-02-09 16:43] LABS: POSITIVE COUNT NO; POSITIVE DIFFERENTIAL NO; POSITIVE MORPHOLOGY NO
[2019-02-09 17:00] LABS: Vitamin D,25 Hydroxy 10.5 ng/mL (29.95-100.01)
[2019-02-09 17:12] LABS: AST(SGOT) 15 U/L (15-37); Alanine Aminotransfer ALT/SGPT 24 U/L (13-56); Albumin, Serum 3.5 g/dL (3.2-5.0); Alkaline Phosphatase 70 U/L (45-117); Anion Gap 10 (5-15); BUN 13 mg/dL (7-18); BUN/Creat Ratio 14.8 RATIO (10-20); Chloride 104 mmol/L (98-107); Creatinine, Serum 0.88 mg/dL (0.55-1.02); EST Glomerular Filtration Rate 66 mL/min (>60); Est Glom Filt Rate - Afr Amer 80 mL/min (>60); Globulin 3.6 g/dL (2.2-4.2); Glucose 218 mg/dL (74-106); Potassium 4.7 mmol/L (3.5-5.1); Protein, Total 7.1 g/dL (6.4-8.2); Sodium Level 139 mmol/L (136-145); Thyroid Stim Hormone (TSH) 0.65 uIU/mL (0.358-3.74); Uric Acid 5.9 mg/dL (2.6-6.0)
== END ==
PROVIDERS: Family Provider Family Medicine Geriatric Medicine; PCP Family Medicine Geriatric Medicine; Visit Provider Family Medicine Geriatric Medicine
DX: E55.9 Vitamin D deficiency, unspecified (principal); I10 Essential (primary) hypertension; E11.9 Type 2 diabetes mellitus without complications; M10.9 Gout, unspecified
CPT/HCPCS: 36415; 80053; 82306; 84443; 84550; 85025

== ENCOUNTER 2019-02-26 11:15 | Emergency (ER) | payer MEDICARE, SELFPAY ==
[2018-09-21 14:56] VITALS: BMI 35.2
[2019-02-26 11:16] VITALS: BP 124/63; PULSE 57; RESP 18; TEMP 36.4; O2SAT 99; BMI 33.2
--- NOTE | 2019-02-26 11:31 | CT_ITS ---
STUDY: CT BRAIN WITHOUT CONTRAST REASON FOR EXAM: Female, 79 years old. Patient fell 2 days ago. Bilateral eye swelling. RADIATION DOSAGE (If Supplied By Facility): CTDIvol = ( 44.99 ) mGy, DLP = ( 812.98 ) mGycm TECHNIQUE: Transaxial CT imaging of the brain was performed without administration of intravenous contrast material. Individualized dose optimization techniques were used for this CT. COMPARISON: 10/13/2018. FINDINGS: There is bilateral frontal scalp and periorbital soft tissue swelling. There is hyperostosis frontalis internus. There is no evidence of calvarial fracture. Normal size ventricles and extra-axial spaces for the patient's age. There are areas of decreased attenuation within the white matter tracts of the supratentorial brain, consistent with microvascular disease changes. There may be an old infarct in the posterior right parietal region. Normal basal ganglia and thalami. Normal brainstem. Normal cerebellum. There is no intracranial hemorrhage. There are no findings of an acute ischemic infarction. Normal visualized paranasal sinuses. CT/Brain/Head without Contrast IMPRESSION: 1. No acute intracranial process. 2. Frontal scalp and periorbital soft tissue swelling and edema. Electronically Signed: Elliott Mcgregor MD at 12:08 EDT Tel , Service support ,
--- NOTE | 2019-02-26 11:33 | ED.VIS.GEN ---
History of Present Illness Chief Complaint: Fall Informant: Patient, Family Onset: Days - Patient fell evening getting into the bathtub. Context: Sudden Onset Timing: Waxes and wanes Quality: Pain left side of head and nausea Location: Left forehead and bilateral caryn-orbital ecchymosis Current Severity: Mild Maximum Severity: Moderate Worsened by: Nothing Relieved by: Nothing Associated Symptoms: LOC of unknown duration, head pain and nausea Narrative: Patient is an elderly woman who slipped getting into the bathtub. She hit her head on the bathtub. There was reported loss of conscious. Patient does complain of head pain that she localizes over the left forehead. She does report nausea without vomiting. She denies neck pain presently. She believes her neck was stiff time of injury. She denies paresthesia, anesthesia motor weakness presently or time of injury. She denies cardiac or respiratory symptoms. She denies urologic symptoms. She is on no anticoagulant. Only platelet medication is aspirin. There is no prior history of traumatic intracranial bleed or skull fracture. - Past Medical History (1) Acute on chronic combined systolic and diastolic CHF (congestive heart failure) Status: Acute (2) NSTEMI (non-ST elevated myocardial infarction) Status: Acute (3) PAD (peripheral artery disease) Status: Acute (4) Anemia due to chronic blood loss Status: Chronic (5) Benign hypertension Status: Chronic (6) HLD (hyperlipidemia) Status: Chronic (7) History of depression Status: Chronic (8) History of pulmonary embolus (PE) Status: Chronic (9) Ischemic cardiomyopathy Status: Chronic (10) Type II diabetes mellitus Status: Chronic Past Medical History - Allergies and Home Meds Allergies/Adverse Reactions: Allergies rosuvastatin [From Crestor] Adverse Reaction (Intermediate, Verified 02/26/19 11:19) Myalgias Primary Care Physician: Riley Roca Chi, MD [Primary Care Provider] - Prior records reviewed: Yes Surgical History: no surgical history, noncontributory Lives: Alone Smoking Status: Never smoker Alcohol: None Drugs: None - Family History Maternal Family History: Family History (Last Reviewed 03/31/18 @ 15:28 by Mary Jo Ashby) Father CVA (cerebral vascular accident) Mother Heart disease CAD (coronary artery disease) Sister CAD (coronary artery disease) Daughter CAD (coronary artery disease) Myocardial infarction Daughter Diabetes Family History: Reports: No pertinent history Review of Systems General: Denies: Chills, Fever, Malaise, Sweats Eyes: Denies: Visual changes - bilaterally, Blurred Vision - bilaterally, Diplopia ENT: Reports: - - Negative suresh sign.. Denies: Bilateral ear pain, Rhinorrhea, Sore throat Cardiovascular: Denies: Chest pain, Palpitations Respiratory: Denies: Dyspnea, Cough, Dyspnea on exertion Gastrointestinal: Denies: Abdominal pain, Nausea, Vomiting, Diarrhea, Melena, Hematochezia Genitourinary: Denies: Dysuria, Hematuria, Frequency Musculoskeletal: Denies: Back pain, Extremity Pain Skin: Reports: Abrasions, - - Periorbital ecchymosis bilaterally. Denies: Rash, Wounds Neurological: Reports: Headache. Denies: Weakness, Parasthesia, Numbness Hematologic: Denies: Easy bruising, Easy bleeding Allergy: Denies: Uticaria Physical Exam Vital Signs/Narrative: Vital Signs Temp Pulse Resp BP Pulse Ox 02/26/19 11:16 97.6 F L 57 L 18 124/63 H 99 Inital Vital Signs reviewed: Yes General: Well nourished, Well developed, No Acute Distress Head: Normocephalic, Trauma, Tenderness - Left forehead. Healing incision secondary to temporal artery biopsy. No palpable depression. Negative suresh sign. Eyes: Perrl, EOMI, Pale conjunctiva, Scleral icterus, - - No subconjunctival hemorrhage. No entrapment or diplopia. No hyperesthesia the infra orbital nerve. No step-off with palpation the infra orbital rim. ENT: Moist mucous membranes, No rhinorrhea, TM's clear, - - No septal deviation hematoma. Neck: Supple, Nontender, No lymphadenopathy, No JVD, - - C-spine cleared per Nexus criteria Cardiovascular: Regular rate, Regular rhythm, No murmurs Respiratory: No distress, CTA bilaterally, Chest nontender Abdomen: Soft, Nontender, Nondistended, Normal bowel sounds, No masses Back: Nontender, Normal Inspection. Negative for: CVA tenderness, Spinal tenderness Extremities: Nontender, No edema, - - Bruise noted mid lateral right arm, which occurred prior to most recent fall. Skin: Normal color, No rash Neurological: Alert, Oriented x3, Cranial nerves II-XII grossly intact, Normal Strength, Normal Sensation, Normal DTR - No clonus or Babinski sign., - - Cerebellar testing is normal. Psychological: Normal affect, Normal Mood Diagnostic/Tx/Re-eval CT of the head was reviewed by me at 1156. There is no evidence of traumatic subarachnoid hemorrhage, subdural, epidural or intraparenchymal bleed. There is no evidence of fracture. Awaiting formal read by radiologist. Impressions Brain CT 02/26/19 11:31 IMPRESSION: 1. No acute intracranial process. 2. Frontal scalp and periorbital soft tissue swelling and edema. Electronically Signed: Elliott Mcgregor MD at 12:08 EDT Tel , Service support , 02/26/19 11:31 Brain/Head without Contrast [CT] Stat - Medical Decision Making With complaint of headache, loss of conscious, nausea and bilateral periorbital ecchymosis will obtain CT of the head to rule out epidural, subdural, traumatic subarachnoid, intraparenchymal bleed and basilar skull fracture. Patient was made n.p.o. ED Disposition - Plan for ED Patient: Disposition: Home or Assisted Living Diagnosis: Concussion with brief LOC Instructions: ED Concussion Referrals: Riley Roca Chi, MD [Primary Care Provider] - As Needed
== END 2019-02-26 12:58 | disposition home or self-care (01) ==
PROVIDERS: Emergency Provider Emergency Medicine; Family Provider Family Medicine Geriatric Medicine; PCP Family Medicine Geriatric Medicine
DX: S06.0X1A Concussion with loss of consciousness of 30 minutes or less, initial encounter (principal); W18.2XXA Fall in (into) shower or empty bathtub, initial encounter; Y93.9 Activity, unspecified; Y92.89 Other specified places as the place of occurrence of the external cause; Y99.9 Unspecified external cause status; E11.9 Type 2 diabetes mellitus without complications; E78.5 Hyperlipidemia, unspecified; F32.9 Major depressive disorder, single episode, unspecified; I11.0 Hypertensive heart disease with heart failure; I25.2 Old myocardial infarction; I25.5 Ischemic cardiomyopathy; I50.42 Chronic combined systolic (congestive) and diastolic (congestive) heart failure; Z82.3 Family history of stroke; Z86.711 Personal history of pulmonary embolism
CPT/HCPCS: 70450; 99282

== ENCOUNTER 2019-02-27 23:35 | Inpatient (IN) | payer MEDICARE, SELFPAY ==
[2019-02-26 11:16] VITALS: BMI 33.2
[2019-02-27 23:38] VITALS: BP 206/79; PULSE 90; RESP 32; TEMP 37.6; O2SAT 91; BMI 38.1
--- NOTE | 2019-02-27 23:40 | ED.RN ---
CALLED FOR EKG PER RN REQUEST, PULLED OLD EKGS FOR
--- NOTE | 2019-02-27 23:50 | RAD_ITS ---
HISTORY: SHORTNESS OF BREATH EXAM:XR Chest 1 View COMPARISON: PA chest 10/13/2018 FINDINGS: EKG leads in place. Interval worsening. Mild cardiomegaly with vascular congestion and interstitial pulmonary edema, worse within the right lung. No pleural effusion. No pneumothorax. Atherosclerotic thoracic aorta. RAD/Chest 1 View (Portable) IMPRESSION: Mild CHF with interstitial pulmonary edema, worse on the right. at 0038 Reported and signed by: Louie Carrasquillo MD Electronically Signed: Louie Carrasquillo, at 0:37 EDT Tel , Service support ,
--- NOTE | 2019-02-27 23:50 | EKG12_ITS ---
Test Reason : SHORTNESS OF BREATH Blood Pressure : / mmHG Vent. Rate : 090 BPM Atrial Rate : 090 BPM P-R Int : 168 ms QRS Dur : 140 ms QT Int : 400 ms P-R-T Axes : 055 -23 124 degrees QTc Int : 489 ms Normal sinus rhythm Left bundle branch block Abnormal ECG Confirmed by JOSSY PEARSON, SADIE ([id number]), food expeditor JENIFER WALLACE ([id number]) on 03/02/2019 1:39:42 PM Referred By: JERMAIN Confirmed By:SADIE FENTON MD
[2019-02-27 23:51] VITALS: BP 209/82; PULSE 107; RESP 23; O2SAT 98
[2019-02-27 23:54] VITALS: O2SAT 98
[2019-02-28] VITALS (18 sets, daily range): BP systolic 136–205; BP diastolic 42–90; PULSE 56–90; RESP 16–30; TEMP 36.4–37.7; O2SAT 94–100; BMI 37.3
[2019-02-28] MEDS: Ipratropium/Albuterol Sulfate 3 ML AMPUL.NEB INHALATION ×4 (00:03→20:20)
[2019-02-28 00:06] LABS: Absolute Lymphocyte Count 2.05 X10^3/ul (0.83-4.51); Absolute Neutrophil Count 13.8 X10^3/uL (2.0-7.7); Basophil# 0.04 X10^3/uL; Basophil% 0.2 % (0-1); Eosinophil# 0.15 X10^3/uL; Eosinophils% 0.9 % (0-5); Hematocrit 35.5 % (37-47); Lymphocyte # 2.05 X10^3/ul (4.0); Lymphocyte % 11.9 % (19-41); Mean Corpuscular Hgb 27.1 pg (27.0-32.0); Mean Corpuscular Volume 87.4 fL (81-99); Monocyte% 6.4 % (0-10); Neutrophil # 13.77 X10^3/uL (2.7-7.7); Neutrophil % 80.2 % (47-70); Platelet Count 268 K/mm3 (150-450); RBC Distribution Width CV 15.5 % (11.6-14.6); RBC Distribution Width SD 48.9 fl (35.1-43.9); Red Blood Count 4.06 M/mm3 (4.2-5.4); White Blood Count 17.2 K/mm3 (4.4-11.0)
[2019-02-28 00:08] LABS: POSITIVE COUNT NO; POSITIVE DIFFERENTIAL NO; POSITIVE MORPHOLOGY NO
[2019-02-28 00:20] LABS: Anion Gap 7 (5-15); BUN 14 mg/dL (7-18); BUN/Creat Ratio 17.3 RATIO (10-20); Calcium,Total 8.9 mg/dL (8.5-10.1); Chloride 101 mmol/L (98-107); Creatinine, Serum 0.81 mg/dL (0.55-1.02); EST Glomerular Filtration Rate 73 mL/min (>60); Est Glom Filt Rate - Afr Amer 88 mL/min (>60); Estimated Creatinine Clearance 40.45 ml/min; Glucose 229 mg/dL (74-106); Potassium 3.9 mmol/L (3.5-5.1); Sodium Level 137 mmol/L (136-145)
[2019-02-28 00:21] LABS: Allen Test POS; Base Excess 0 mmol/L (-2 to +2); Bicarbonate 24.5 mmol/L (22-26); Blood Gas Specimen Type ART; O2 Delivery Device Nasal Can; PO2 84 mmHG (75-100); SITE L Radial; SO2 97 % (95-99); Time Given 8; Total Carbon Dioxide 26 mmol/L; pCO2 35.6 mmHg (35-45); pH 7.45 (7.35-7.45)
--- NOTE | 2019-02-28 00:53 | ED.VISSUMM ---
- ER Visit Summary Date of Service: 02/28/19 Chief Complaint: Shortness of breath History of Present Illness: The patient is a 79 F who presents with shortness of breath. This began about 5 hours ago acutely. She has had some rhinorrhea but is a chronic issue and not new. She denies any chest pain fevers nausea vomiting. She did have a mechanical fall 2 days ago when she slipped getting off of the commode and fell into the bathtub. She had a normal head CT at that time. She does not believe she hit her chest. Physical Examination: Blood pressure 206/79, temperature 99.7, respiratory rate 32, pulse ox 91% on room air Patient has facial bruising, raccoon eyes Moist mucous membranes Heart regular rate and rhythm Patient is tachypneic with increased work of breathing she has some scattered wheezes but good air exchange I do not appreciate rales or rhonchi Abdomen soft Alert Test Results: EKG shows sinus rhythm at a rate of 90 with a left bundle branch block unchanged from prior. Chest x-ray showed is consistent with CHF. Labs are notable for white count of 17.2, glucose 229, troponin is negative, BNP 509. ABG normal. Emergency Department Course and Treatment: Work-up as above is most consistent with congestive heart failure exacerbation. Her chest x-ray has more of a pulmonary edema pattern and her BNP is elevated. Although she does have a leukocytosis she is not febrile or tachycardic she does not have infectious symptoms such as cough or congestion. I do not believe this is pneumonia. She was given IV Lasix. She was discussed with hospitalist and will be admitted. Treatment Plan: [] Disposition: Admit Impression: Congestive heart failure exacerbation This note was generated with [employer] dictation software. It may contain incorrect words, spelling, and punctuation that were not noted in review of the chart prior to signing ED Disposition - Plan for ED Patient: Referrals: Riley Roca Chi, MD [Primary Care Provider] -
--- NOTE | 2019-02-28 00:55 | PCM.HP.STD ---
Problem List (1) Acute on chronic diastolic heart failure Status: Acute (2) Pneumonia Status: Acute Qualifiers: Pneumonia type: due to unspecified organism Laterality: unspecified laterality Lung location: unspecified part of lung Qualified Code(s): J18.9 - Pneumonia, unspecified organism (3) Obesity (BMI 30-39.9) Status: Chronic (4) Anxiety and depression Status: Chronic (5) PAD (peripheral artery disease) Status: Chronic (6) Ischemic cardiomyopathy Status: Chronic (7) Benign hypertension Status: Chronic (8) CAD (coronary artery disease) Status: Chronic Qualifiers: Coronary Disease-Associated Artery/Lesion type: unspecified vessel or lesion type [place] vs. 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 Diabetes mellitus complication status: with unspecified complications Qualified Code(s): E11.8 - Type 2 diabetes mellitus with unspecified complications; Z79.4 - terminal worker (current) use of insulin (10) HLD (hyperlipidemia) Status: Chronic Qualifiers: Hyperlipidemia type: pure hypercholesterolemia Qualified Code(s): E78.00 - Pure hypercholesterolemia, unspecified (11) History of pulmonary embolus (PE) Status: Chronic (12) History of coronary artery stent placement Status: Chronic Comment: PTCA/stent to mid first Diagonal 12/21/03; PTCA/stent to mid Diagonal 07/02/07 (13) NSTEMI (non-ST elevated myocardial infarction) Status: Chronic History of Present Illness Date of Admission: 02/28/19 Chief Complaint: Dyspnea The patient is a 79 y/o F w/ PMHx: Obesity, CAD, Ischemic Cardiomyopathy, Chronic Systolic and Diastolic CHF, Hx PE, PAD, Diabetes mellitus type II, Chronic Anemia, Anxiety and Depression who presents to the [facility] ED on with history of recent fall ~ 2-3 days ago, fell after getting off the toilet, landed in the tub with ED visit at that time unremarkable w/ CT head unremarkable, who now re-presents with sudden onset dyspnea, ~ 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 Patient does not regularly check her weight but denies any market worsened edema and thinks she has been at a stable weight. Work-up in the ED included T 99.7, heart rate 107, BP initially 206/79, respiratory rate 32, 91% on room air, CBC with WBC 7.2, hemoglobin 11, platelet 268 with left shift, ABG not severe or marked appearing, BMP notable only for glucose 229, troponin less than 0.015, BNP 509, chest x-ray with mild CHF with interstitial pulmonary edema, greater on the right. In the ED patient ministered Lasix 40 mg IV x1 as well as DuoNeb. Past Medical History Past Medical History (Chronic Problems): Chronic Problems (Last Updated 04/19/18 @ 16:25 by Penelope Hughes) Obesity (BMI 30-39.9) (Chronic) Anxiety and depression (Chronic) PAD (peripheral artery disease) (Chronic) Atherosclerotic heart disease of [place] coronary artery without angina pectoris (Chronic) PTCA/stent to mid first Diagonal 12/21/03; PTCA/stent to mid Diagonal 07/02/07 Left bundle branch block (Chronic) Ischemic cardiomyopathy (Chronic) Anemia due to chronic blood loss (Chronic) Benign hypertension (Chronic) CAD (coronary artery disease) (Chronic) History of depression (Chronic) Type II diabetes mellitus (Chronic) Dyspnea (Chronic) HLD (hyperlipidemia) (Chronic) History of pulmonary embolus (PE) (Chronic) History of coronary artery stent placement (Chronic) PTCA/stent to mid first Diagonal 12/21/03; PTCA/stent to mid Diagonal 07/02/07 NSTEMI (non-ST elevated myocardial infarction) (Chronic) Medical History: Medical History (Last Updated 04/19/18 @ 16:25 by Penelope Hughes) PAD (peripheral artery disease) (Chronic) I73.9 H/O: hysterectomy (Resolved) Z90.710 Atherosclerotic heart disease of [place] coronary artery without angina pectoris (Chronic) I25.10 PTCA/stent to mid first Diagonal 12/21/03; PTCA/stent to mid Diagonal 07/02/07 Left bundle branch block (Chronic) I44.7 USP use of drug (Acute) Z79.899 Ischemic cardiomyopathy (Chronic) I25.5 Old myocardial infarction (Acute) I25.2 Acute on chronic combined systolic and diastolic CHF (congestive heart failure) (Acute) I50.43 Bronchitis (Acute) J40 Cough (Acute) R05 Anemia due to chronic blood loss (Chronic) D50.0 Benign hypertension (Chronic) I10 CAD (coronary artery disease) (Chronic) I25.10 History of depression (Chronic) Z86.59 Type II diabetes mellitus (Chronic) E11.9 Dyspnea (Chronic) R06.00 HLD (hyperlipidemia) (Chronic) E78.5 History of pulmonary embolus (PE) (Chronic) Z86.711 NSTEMI (non-ST elevated myocardial infarction) (Chronic) I21.4 Acute on chronic diastolic heart failure (Acute) I50.33 Anemia D64.9 Arthritis M19.90 Cancer C80.1 Chest pain R07.9 Diabetes E11.9 Edema R60.9 Heart disease I51.9 Intermittent claudication I73.9 Migraine G43.909 SOB (shortness of breath) R06.02 HTN (hypertension) I10 Allergies latex Allergy (Verified 02/27/19 23:37) Rash Home Medications: Ambulatory Orders Medication Instructions Recorded Albuterol Sulfate [Proair Hfa] 2 puff INHALATION BID 12/23/13 Insulin Lispro [Humalog KwikPen] 10 unit SC TIDCM 12/23/13 Acetaminophen [Tylenol] 325 mg PO PRN PRN 01/25/15 Nitroglycerin (INPATIENT USE) 0.4 mg SUBLINGUAL PRN PRN 01/25/15 [Nitrostat] Insulin Glargine,Hum.rec.anlog 80 unit SQ DAILY 11/05/15 [Lonnie Knutson] aspirin 81 mg tablet,delayed 162 mg PO QDAY tab 03/31/18 release atenolol 50 mg tablet 50 mg PO QDAY 03/31/18 ergocalciferol (vitamin D2) 50,000 1,000 unit PO QWEEK cap 03/31/18 unit capsule lisinopril 40 mg tablet 40 mg PO QDAY #90 tab 07/26/18 atorvastatin 20 mg tablet 20 mg PO QDAY #30 tab 09/22/18 Furosemide [Lasix] 20 mg PO DAILY PRN PRN 02/26/19 Sertraline HCl 100 mg PO DAILY 02/26/19 Surgical History: Surgical History (Last Reviewed 03/31/18 @ 15:28 by Mary Jo Ashby) History of carpal tunnel release (Resolved) Z98.890 Hx of knee surgery (Resolved) Z98.890 Hx of cholecystectomy (Resolved) Z90.49 Presence of other cardiac implants and grafts (Resolved) Z95.818 PTCA/stent to mid first Diagonal 12/21/03; PTCA/stent to mid Diagonal 07/02/07 History of coronary artery stent placement (Chronic) Z95.5 PTCA/stent to mid first Diagonal 12/21/03; PTCA/stent to mid Diagonal 07/02/07 Surgical History: - - Carpal tunnel surgery, PCI, cholecystectomy, knee surgery, hysterectomy. 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 Lives: Alone Smoking Status: Never smoker Tobacco Use: Non-smoker Alcohol: Rare Drugs: None - *Family History Maternal Family History: Family History (Last Reviewed 03/31/18 @ 15:28 by Mary Jo Ashby) Father CVA (cerebral vascular accident) Mother Heart disease CAD (coronary artery disease) Sister CAD (coronary artery disease) Daughter CAD (coronary artery disease) Myocardial infarction Daughter Diabetes History Items: High Cholesterol, Heart Disease, Hypertension Paternal Family History: Family History (Last Reviewed 03/31/18 @ 15:28 by Mary Jo Ashby) Father CVA (cerebral vascular accident) Mother Heart disease CAD (coronary artery disease) Sister CAD (coronary artery disease) Daughter CAD (coronary artery disease) Myocardial infarction Daughter Diabetes History Items: Stroke Review of Systems Constitutional: Reports: Malaise, Weakness, Fatigue. Denies: Chills, Fever, Weight Change HEENT: Reports: Head Aches, Nasal Congestion, Post Nasal Drip, Sinus Congestion, Sinus Drainage Cardiovascular: Denies: Chest Pain, Palpitations Respiratory: Reports: Shortness of Breath, Shortness of breath at rest, Shortness of breath upon exertion. Denies: Cough, Sputum production Gastrointestinal: Denies: Abdominal Pain, Nausea, Vomiting Genitourinary: Denies: Dysuria Musculoskeletal: Reports: Joint Pain. Denies: Joint Tenderness Skin: Reports: Skin Changes. Denies: Rash, Wounds Neurological: Denies: Numbness, Tingling, Focal weakness Psychiatric: Reports: Anxiety, Depression. Denies: Homicidal Ideations, Suicidal Ideations Hematologic/ Lymphatic: Reports: Anemia, Easy Bruising, Easy Bleeding VTE Information - Inpt Only VTE Present on Admission: No VTE Mechan Device Prophylaxis: SCD's VTE Pharm Prophylaxis ordered?: Yes Patient Problems: Active and Suspected Problems (Last Updated 04/19/18 @ 16:25 by Penelope Hughes) Pneumonia (Acute) Subjective: Seated upright in the bed, fatigued appearance, notes feeling mildly improved since initial presentation, IV Lasix currently being administered and does not appear in overt respiratory distress. Objective: Physical Examination: General: awake, alert, oriented x 3 and cooperative, seated upright in the ED bed, no acute distress, notes less dyspnea with supplementation, IV Lasix currently being administered. Skin: normal color, turgor, no icterus, cyanosis except notable staged ecchymoses to the face, status post recent fall.. HEENT: AT/NC, EOMI, PERRLA, MMM, no carotid bruits or JVD noted; her, thickened neck makes examination difficult. Lungs: Diminished breath sounds bilaterally, greater right base than left, rales bilaterally at bases, right greater than left, no wheezing or rhonchi. Heart: Regular rate and rhythm; no gallop, rub audible. Abdomen: soft, obese, NTTP, ND, normal BS, no HSM. Extremities: no cyanosis, clubbing, or edema. Neurological: patient awake, alert, oriented x 3; cognitive function intact; pupils equally reactive to light and accomodation; cranial nerves II-XII grossly normal, moving all 4 extremities, no focal deficits, strength moderately to severely global decrease secondary to acute presentation. Psychiatric: affect appears mildly fatigued, no acute evidence of depressive or anxiety feelings. - Physical Exam Vital Signs Temp Pulse Resp BP Pulse Ox 99.7 F H 85 30 H 209/82 H 98 02/27/19 23:38 02/28/19 00:04 02/28/19 00:04 02/27/19 23:51 02/27/19 23:51 Oxygen Flow Rate (L/min) 2 Oxygen Delivery Method Nasal Cannula Weight: 195 lb 5.273 oz Body Mass Index (BMI) 38.1 Laboratory Tests Past 24 Hrs 02/27/19 02/27/19 02/27/19 23:36 23:36 23:36 WBC 17.2 H RBC 4.06 L Hgb 11.0 L Hct 35.5 L MCV 87.4 MCH 27.1 MCHC 31.0 L RDW 15.5 H RDW Differential 48.9 H Plt Count 268 MPV 11.0 Immature Gran % (Auto) 0.400 Neut % (Auto) 80.2 H Lymph % (Auto) 11.9 L [place] % (Auto) 6.4 Eos % (Auto) 0.9 Baso % (Auto) 0.2 Absolute Neuts (auto) 13.8 H Absolute Lymphs (auto) 2.05 Total Counted Not Reportable Specimen Type Sample Site pH Bicarbonate Actual POC Total CO2 Base Excess O2 Saturation ABG pCO2 ABG pO2 Harshad Test O2 Delivery Device Liter Flow Blood Gas Notified Whom Blood Gas Notified Time Sodium 137 Potassium 3.9 Chloride 101 Carbon Dioxide 29.0 Anion Gap 7 BUN 14 Creatinine 0.81 Estim Creat Clear Calc 40.45 Est GFR (MDRD) Af Amer 88 Est GFR (MDRD) Non-Af 73 BUN/Creatinine Ratio 17.3 Glucose 229 H Calcium 8.9 Troponin I < 0.015 B-Natriuretic Peptide 509.0 H 02/28/19 00:16 WBC RBC Hgb Hct MCV MCH MCHC RDW RDW Differential Plt Count MPV Immature Gran % (Auto) Neut % (Auto) Lymph % (Auto) [place] % (Auto) Eos % (Auto) Baso % (Auto) Absolute Neuts (auto) Absolute Lymphs (auto) Total Counted Specimen Type ART Sample Site L Radial pH 7.45 Bicarbonate Actual 24.5 POC Total CO2 26 Base Excess 0 O2 Saturation 97 ABG pCO2 35.6 ABG pO2 84 Harshad Test POS O2 Delivery Device Nasal Can Liter Flow 2.0 Blood Gas Notified Whom ED MD Blood Gas Notified Time 8 Sodium Potassium Chloride Carbon Dioxide Anion Gap BUN Creatinine Estim Creat Clear Calc Est GFR (MDRD) Af Amer Est GFR (MDRD) Non-Af BUN/Creatinine Ratio Glucose Calcium Troponin I B-Natriuretic Peptide Assessment/Plan All Active Problems (Last Updated 04/19/18 @ 16:25 by Penelope Hughes) Pneumonia (Acute) History of carpal tunnel release (Resolved) Hx of knee surgery (Resolved) H/O: hysterectomy (Resolved) Hx of cholecystectomy (Resolved) Presence of other cardiac implants and grafts (Resolved) terminal worker use of drug (Acute) Old myocardial infarction (Acute) Acute on chronic combined systolic and diastolic CHF (congestive heart failure) (Acute) Bronchitis (Acute) Cough (Acute) Acute on chronic diastolic heart failure (Acute) The patient is a 79 y/o F w/ PMHx: Obesity, CAD, Ischemic Cardiomyopathy, Chronic Systolic and Diastolic CHF, Hx PE, PAD, Diabetes mellitus type II, Chronic Anemia, Anxiety and Depression who presents to the [facility] ED on with history of recent fall ~ 2-3 days ago, fell after getting off the toilet, landed in the tub with ED visit at that time unremarkable w/ CT head unremarkable, who now re-presents with sudden onset dyspnea, ~ 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 (1) Acute Decompensated ? Diastolic CHF, Prior Hx noted Systolic CHF, concurrent Hx Ischemic Cardiomyopathy: Work-up in the ED included T 99.7, heart rate 107, BP initially 206/79, respiratory rate 32, 91% on room air, CBC with WBC 7.2, hemoglobin 11, platelet 268 with left shift, ABG not severe or marked appearing, BMP notable only for glucose 229, troponin less than 0.015, BNP 509, chest x-ray with mild CHF with interstitial pulmonary edema, greater on the right. Patient administered IV lasix in the ED, will admit to PCU, maintain on cardiac telemetry obtain cardiac enzyme series, obtain serial EKGs, continue IV lasix diuresis, monitor I/Os, maintain on intake restriction, continue medical therapy w/ asa, statin, BB, ACEI, aldosterone antagonists. Will obtain TSH and magnesium level. Most recent ECHO noted 04/09/18 w/ segmental dysfunction with preserved EF, EF 55%, mild MVI, mild TVI, trivial PVI, RVSP 35 mmHg, evidence of diastolic dysfunction. Cardiology consulted, pending. PRN morphine to decrease afterload, continue oxygen supplementation, if necessary will position w/ upright position with legs off bed to decrease preload. (2) ? Community Acquired Pneumonia: Given presentation with low-grade temperature, WBC elevation with left shift as well as worsened right-sided appearance on chest x-ray must consider also possible pneumonia despite no marked symptoms prior, but to be cautious will treat pending repeat CXR in AM PA and Lateral following diuresis, maintain on oxygen with wean as tolerated to room air, continue ATC duonebs, PRN albuterol, maintained on IV Rocephin and Azithromycin, HOB, IS parameters w/ pending sputum cultures and urine antigens. If unremarkable repeat CXR may consider discontinuation of antibiotic therapy. (3) CAD, PAD: Status post PCI, continue home regimen aspirin, statin, beta-natividad, CEDRICK inhibitor. (4) Diabetes mellitus type II: Hold oral home regimen, continue home insulin regimen, ADA diet, accu checks w/ ISS. (5) Chronic normocytic anemia: Patient hemoglobin 11, baseline appears 9-11, stable, trend. (6) Hypertension: Continue home regimen including IV Lasix, atenolol, lisinopril, PRN hydralazine. (7) Hyperlipidemia: Continue home statin regimen. AM FLP. (8) Obesity: Weight loss and lifestyle changes encouraged. (9) Anxiety and depression: Continue home sertraline regimen. (10) DVT prophylaxis: SCDs, Lovenox. Code Visit Inpatient E&M: 07916 Init Hosp L3
--- NOTE | 2019-02-28 01:06 | HP.PCM_ITS ---
Problem List (1) Acute on chronic diastolic heart failure Status: Acute (2) Pneumonia Status: Acute Qualifiers: Pneumonia type: due to unspecified organism Laterality: unspecified laterality Lung location: unspecified part of lung Qualified Code(s): J18.9 - Pneumonia, unspecified organism (3) Obesity (BMI 30-39.9) Status: Chronic (4) Anxiety and depression Status: Chronic (5) PAD (peripheral artery disease) Status: Chronic (6) Ischemic cardiomyopathy Status: Chronic (7) Benign hypertension Status: Chronic (8) CAD (coronary artery disease) Status: Chronic Qualifiers: Coronary Disease-Associated Artery/Lesion type: unspecified vessel or lesion type [place] vs. transplanted heart: unspecified whether [place] or transplanted heart Associated angina: angina presence unspecified Qualified Code(s): I25.10 - Atherosclerotic heart disease of [place] coronary artery without angina pectoris (9) Type II diabetes mellitus Status: Chronic Qualifiers: Diabetes mellitus intermediate insulin use: with watermelon inspector use Diabetes mellitus complication status: with unspecified complications Qualified Code(s): E11.8 - Type 2 diabetes mellitus with unspecified complications; Z79.4 - termite treater helper (current) use of insulin (10) HLD (hyperlipidemia) Status: Chronic Qualifiers: Hyperlipidemia type: pure hypercholesterolemia Qualified Code(s): E78.00 - Pure hypercholesterolemia, unspecified (11) History of pulmonary embolus (PE) Status: Chronic (12) History of coronary artery stent placement Status: Chronic Comment: PTCA/stent to mid first Diagonal 12/21/03; PTCA/stent to mid Diagonal 07/02/07 (13) NSTEMI (non-ST elevated myocardial infarction) Status: Chronic History of Present Illness Date of Admission: 02/28/19 Chief Complaint: Dyspnea The patient is a 79 y/o F w/ PMHx: Obesity, CAD, Ischemic Cardiomyopathy, Chronic Systolic and Diastolic CHF, Hx PE, PAD, Diabetes mellitus type II, Chronic Anemia, Anxiety and Depression who presents to the 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 Patient does not regularly check her weight but denies any market worsened edema and thinks she has been at a stable weight. Work-up in the ED included T 99.7, heart rate 107, BP initially 206/79, respiratory rate 32, 91% on room air, CBC with WBC 7.2, hemoglobin 11, platelet 268 with left shift, ABG not severe or marked appearing, BMP notable only for glucose 229, troponin less than 0.015, BNP 509, chest x-ray with mild CHF with interstitial pulmonary edema, greater on the right. In the ED patient ministered Lasix 40 mg IV x1 as well as DuoNeb. Past Medical History Past Medical History (Chronic Problems): Chronic Problems (Last Updated 04/19/18 @ 16:25 by Penelope Hughes) Obesity (BMI 30-39.9) (Chronic) Anxiety and depression (Chronic) PAD (peripheral artery disease) (Chronic) Atherosclerotic heart disease of [place] coronary artery without angina pectoris (Chronic) PTCA/stent to mid first Diagonal 12/21/03; PTCA/stent to mid Diagonal 07/02/07 Left bundle branch block (Chronic) Ischemic cardiomyopathy (Chronic) Anemia due to chronic blood loss (Chronic) Benign hypertension (Chronic) CAD (coronary artery disease) (Chronic) History of depression (Chronic) Type II diabetes mellitus (Chronic) Dyspnea (Chronic) HLD (hyperlipidemia) (Chronic) History of pulmonary embolus (PE) (Chronic) History of coronary artery stent placement (Chronic) PTCA/stent to mid first Diagonal 12/21/03; PTCA/stent to mid Diagonal 07/02/07 NSTEMI (non-ST elevated myocardial infarction) (Chronic) Medical History: Medical History (Last Updated 04/19/18 @ 16:25 by Penelope Hughes) PAD (peripheral artery disease) (Chronic) I73.9 H/O: hysterectomy (Resolved) Z90.710 Atherosclerotic heart disease of [place] coronary artery without angina pectoris (Chronic) I25.10 PTCA/stent to mid first Diagonal 12/21/03; PTCA/stent to mid Diagonal 07/02/07 Left bundle branch block (Chronic) I44.7 longterm use of drug (Acute) Z79.899 Ischemic cardiomyopathy (Chronic) I25.5 Old myocardial infarction (Acute) I25.2 Acute on chronic combined systolic and diastolic CHF (congestive heart failure) (Acute) I50.43 Bronchitis (Acute) J40 Cough (Acute) R05 Anemia due to chronic blood loss (Chronic) D50.0 Benign hypertension (Chronic) I10 CAD (coronary artery disease) (Chronic) I25.10 History of depression (Chronic) Z86.59 Type II diabetes mellitus (Chronic) E11.9 Dyspnea (Chronic) R06.00 HLD (hyperlipidemia) (Chronic) E78.5 History of pulmonary embolus (PE) (Chronic) Z86.711 NSTEMI (non-ST elevated myocardial infarction) (Chronic) I21.4 Acute on chronic diastolic heart failure (Acute) I50.33 Anemia D64.9 Arthritis M19.90 Cancer C80.1 Chest pain R07.9 Diabetes E11.9 Edema R60.9 Heart disease I51.9 Intermittent claudication I73.9 Migraine G43.909 SOB (shortness of breath) R06.02 HTN (hypertension) I10 Allergies latex Allergy (Verified 02/27/19 23:37) Rash Home Medications: Ambulatory Orders Medication Instructions Recorded Albuterol Sulfate [Proair Hfa] 2 puff INHALATION BID 12/23/13 Insulin Lispro [Humalog KwikPen] 10 unit SC TIDCM 12/23/13 Acetaminophen [Tylenol] 325 mg PO PRN PRN 01/25/15 Nitroglycerin (INPATIENT USE) 0.4 mg SUBLINGUAL PRN PRN 01/25/15 [Nitrostat] Insulin Glargine,Hum.rec.anlog 80 unit SQ DAILY 11/05/15 [Lonnie Knutson] aspirin 81 mg tablet,delayed 162 mg PO QDAY tab 03/31/18 release atenolol 50 mg tablet 50 mg PO QDAY 03/31/18 ergocalciferol (vitamin D2) 50,000 1,000 unit PO QWEEK cap 03/31/18 unit capsule lisinopril 40 mg tablet 40 mg PO QDAY #90 tab 07/26/18 atorvastatin 20 mg tablet 20 mg PO QDAY #30 tab 09/22/18 Furosemide [Lasix] 20 mg PO DAILY PRN PRN 02/26/19 Sertraline HCl 100 mg PO DAILY 02/26/19 Surgical History: Surgical History (Last Reviewed 03/31/18 @ 15:28 by Mary Jo Ashby) History of carpal tunnel release (Resolved) Z98.890 Hx of knee surgery (Resolved) Z98.890 Hx of cholecystectomy (Resolved) Z90.49 Presence of other cardiac implants and grafts (Resolved) Z95.818 PTCA/stent to mid first Diagonal 12/21/03; PTCA/stent to mid Diagonal 07/02/07 History of coronary artery stent placement (Chronic) Z95.5 PTCA/stent to mid first Diagonal 12/21/03; PTCA/stent to mid Diagonal 07/02/07 Surgical History: - - Carpal tunnel surgery, PCI, cholecystectomy, knee surgery, hysterectomy. 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 Lives: Alone Smoking Status: Never smoker Tobacco Use: Non-smoker Alcohol: Rare Drugs: None - *Family History Maternal Family History: Family History (Last Reviewed 03/31/18 @ 15:28 by Mary Jo Ashby) Father CVA (cerebral vascular accident) Mother Heart disease CAD (coronary artery disease) Sister CAD (coronary artery disease) Daughter CAD (coronary artery disease) Myocardial infarction Daughter Diabetes History Items: High Cholesterol, Heart Disease, Hypertension Paternal Family History: Family History (Last Reviewed 03/31/18 @ 15:28 by Mary Jo Ashby) Father CVA (cerebral vascular accident) Mother Heart disease CAD (coronary artery disease) Sister CAD (coronary artery disease) Daughter CAD (coronary artery disease) Myocardial infarction Daughter Diabetes History Items: Stroke Review of Systems Constitutional: Reports: Malaise, Weakness, Fatigue. Denies: Chills, Fever, Weight Change HEENT: Reports: Head Aches, Nasal Congestion, Post Nasal Drip, Sinus Congestion, Sinus Drainage Cardiovascular: Denies: Chest Pain, Palpitations Respiratory: Reports: Shortness of Breath, Shortness of breath at rest, Shortness of breath upon exertion. Denies: Cough, Sputum production Gastrointestinal: Denies: Abdominal Pain, Nausea, Vomiting Genitourinary: Denies: Dysuria Musculoskeletal: Reports: Joint Pain. Denies: Joint Tenderness Skin: Reports: Skin Changes. Denies: Rash, Wounds Neurological: Denies: Numbness, Tingling, Focal weakness Psychiatric: Reports: Anxiety, Depression. Denies: Homicidal Ideations, Suicidal Ideations Hematologic/ Lymphatic: Reports: Anemia, Easy Bruising, Easy Bleeding VTE Information - Inpt Only VTE Present on Admission: No VTE Mechan Device Prophylaxis: SCD's VTE Pharm Prophylaxis ordered?: Yes Patient Problems: Active and Suspected Problems (Last Updated 04/19/18 @ 16:25 by Penelope Hughes) Pneumonia (Acute) Subjective: Seated upright in the bed, fatigued appearance, notes feeling mildly improved since initial presentation, IV Lasix currently being administered and does not appear in overt respiratory distress. Objective: Physical Examination: General: awake, alert, oriented x 3 and cooperative, seated upright in the ED bed, no acute distress, notes less dyspnea with supplementation, IV Lasix currently being administered. Skin: normal color, turgor, no icterus, cyanosis except notable staged ecchymoses to the face, status post recent fall.. HEENT: AT/NC, EOMI, PERRLA, MMM, no carotid bruits or JVD noted; her, thickened neck makes examination difficult. Lungs: Diminished breath sounds bilaterally, greater right base than left, rales bilaterally at bases, right greater than left, no wheezing or rhonchi. Heart: Regular rate and rhythm; no gallop, rub audible. Abdomen: soft, obese, NTTP, ND, normal BS, no HSM. Extremities: no cyanosis, clubbing, or edema. Neurological: patient awake, alert, oriented x 3; cognitive function intact; pupils equally reactive to light and accomodation; cranial nerves II-XII grossly normal, moving all 4 extremities, no focal deficits, strength moderately to severely global decrease secondary to acute presentation. Psychiatric: affect appears mildly fatigued, no acute evidence of depressive or anxiety feelings. - Physical Exam Vital Signs Temp Pulse Resp BP Pulse Ox 99.7 F H 85 30 H 209/82 H 98 02/27/19 23:38 02/28/19 00:04 02/28/19 00:04 02/27/19 23:51 02/27/19 23:51 Oxygen Flow Rate (L/min) 2 Oxygen Delivery Method Nasal Cannula Weight: 195 lb 5.273 oz Body Mass Index (BMI) 38.1 Laboratory Tests Past 24 Hrs 02/27/19 02/27/19 02/27/19 23:36 23:36 23:36 WBC 17.2 H RBC 4.06 L Hgb 11.0 L Hct 35.5 L MCV 87.4 MCH 27.1 MCHC 31.0 L RDW 15.5 H RDW Differential 48.9 H Plt Count 268 MPV 11.0 Immature Gran % (Auto) 0.400 Neut % (Auto) 80.2 H Lymph % (Auto) 11.9 L Mcduffie % (Auto) 6.4 Eos % (Auto) 0.9 Baso % (Auto) 0.2 Absolute Neuts (auto) 13.8 H Absolute Lymphs (auto) 2.05 Total Counted Not Reportable Specimen Type Sample Site pH Bicarbonate Actual POC Total CO2 Base Excess O2 Saturation ABG pCO2 ABG pO2 Harshad Test O2 Delivery Device Liter Flow Blood Gas Notified Whom Blood Gas Notified Time Sodium 137 Potassium 3.9 Chloride 101 Carbon Dioxide 29.0 Anion Gap 7 BUN 14 Creatinine 0.81 Estim Creat Clear Calc 40.45 Est GFR (MDRD) Af Amer 88 Est GFR (MDRD) Non-Af 73 BUN/Creatinine Ratio 17.3 Glucose 229 H Calcium 8.9 Troponin I < 0.015 B-Natriuretic Peptide 509.0 H 02/28/19 00:16 WBC RBC Hgb Hct MCV MCH MCHC RDW RDW Differential Plt Count MPV Immature Gran % (Auto) Neut % (Auto) Lymph % (Auto) Mcduffie % (Auto) Eos % (Auto) Baso % (Auto) Absolute Neuts (auto) Absolute Lymphs (auto) Total Counted Specimen Type ART Sample Site L Radial pH 7.45 Bicarbonate Actual 24.5 POC Total CO2 26 Base Excess 0 O2 Saturation 97 ABG pCO2 35.6 ABG pO2 84 Harshad Test POS O2 Delivery Device Nasal Can Liter Flow 2.0 Blood Gas Notified Whom ED MD Blood Gas Notified Time 8 Sodium Potassium Chloride Carbon Dioxide Anion Gap BUN Creatinine Estim Creat Clear Calc Est GFR (MDRD) Af Amer Est GFR (MDRD) Non-Af BUN/Creatinine Ratio Glucose Calcium Troponin I B-Natriuretic Peptide Assessment/Plan All Active Problems (Last Updated 04/19/18 @ 16:25 by Penelope Hughes) Pneumonia (Acute) History of carpal tunnel release (Resolved) Hx of knee surgery (Resolved) H/O: hysterectomy (Resolved) Hx of cholecystectomy (Resolved) Presence of other cardiac implants and grafts (Resolved) termite treater helper use of drug (Acute) Old myocardial infarction (Acute) Acute on chronic combined systolic and diastolic CHF (congestive heart failure) (Acute) Bronchitis (Acute) Cough (Acute) Acute on chronic diastolic heart failure (Acute) The patient is a 79 y/o F w/ PMHx: Obesity, CAD, Ischemic Cardiomyopathy, Chronic Systolic and Diastolic CHF, Hx PE, PAD, Diabetes mellitus type II, Chronic Anemia, Anxiety and Depression who presents to the 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 (1) Acute Decompensated ? Diastolic CHF, Prior Hx noted Systolic CHF, concurrent Hx Ischemic Cardiomyopathy: Work-up in the ED included T 99.7, heart rate 107, BP initially 206/79, respiratory rate 32, 91% on room air, CBC with WBC 7.2, hemoglobin 11, platelet 268 with left shift, ABG not severe or marked appearing, BMP notable only for glucose 229, troponin less than 0.015, BNP 509, chest x- ray with mild CHF with interstitial pulmonary edema, greater on the right. Patient administered IV lasix in the ED, will admit to PCU, maintain on cardiac telemetry obtain cardiac enzyme series, obtain serial EKGs, continue IV lasix diuresis, monitor I/Os, maintain on intake restriction, continue medical therapy w/ asa, statin, BB, ACEI, aldosterone antagonists. Will obtain TSH and magnesium level. Most recent ECHO noted 04/09/18 w/ segmental dysfunction with preserved EF, EF 55%, mild MVI, mild TVI, trivial PVI, RVSP 35 mmHg, evidence of diastolic dysfunction. Cardiology consulted, pending. PRN morphine to decrease afterload, continue oxygen supplementation, if necessary will position w/ upright position with legs off bed to decrease preload. (2) ? Community Acquired Pneumonia: Given presentation with low-grade temperature, WBC elevation with left shift as well as worsened right-sided appearance on chest x-ray must consider also possible pneumonia despite no marked symptoms prior, but to be cautious will treat pending repeat CXR in AM PA and Lateral following diuresis, maintain on oxygen with wean as tolerated to room air, continue ATC duonebs, PRN albuterol, maintained on IV Rocephin and Azithromycin, HOB, IS parameters w/ pending sputum cultures and urine antigens. If unremarkable repeat CXR may consider discontinuation of antibiotic therapy. (3) CAD, PAD: Status post PCI, continue home regimen aspirin, statin, beta-natividad, CEDRICK inhibitor. (4) Diabetes mellitus type II: Hold oral home regimen, continue home insulin regimen, ADA diet, accu checks w/ ISS. (5) Chronic normocytic anemia: Patient hemoglobin 11, baseline appears 9-11, stable, trend. (6) Hypertension: Continue home regimen including IV Lasix, atenolol, lisinopril, PRN hydralazine. (7) Hyperlipidemia: Continue home statin regimen. AM FLP. (8) Obesity: Weight loss and lifestyle changes encouraged. (9) Anxiety and depression: Continue home sertraline regimen. (10) DVT prophylaxis: SCDs, Lovenox. Code Visit Inpatient E&M: 88352 Init Hosp L3
[2019-02-28] MEDS: Furosemide 40 MG/4 ML Vial IV ×3 (01:18→17:34)
[2019-02-28 03:03] LABS: Magnesium 1.7 mg/dL (1.6-2.6); Thyroid Stim Hormone (TSH) 0.28 uIU/mL (0.358-3.74)
[2019-02-28] MEDS: Acetaminophen 325 MG Tablet 650 MG PO (03:18)
[2019-02-28] MEDS: Ceftriaxone 1 GM/50 ML BAG IV (03:18)
[2019-02-28] MEDS: 0.9% NaCl Peripheral Flush Adult/Peds IV ×2 (03:18→12:08)
--- NOTE | 2019-02-28 05:55 | EKG12_ITS ---
Test Reason : AM EKG Blood Pressure : / mmHG Vent. Rate : 070 BPM Atrial Rate : 070 BPM P-R Int : 172 ms QRS Dur : 146 ms QT Int : 456 ms P-R-T Axes : 057 -36 137 degrees QTc Int : 492 ms Normal sinus rhythm Left axis deviation Left bundle branch block Abnormal ECG Confirmed by JOSSY PEARSON, SADIE ([id number]), fan mail editor JENIFER WALLACE ([id number]) on 03/02/2019 1:56:22 PM Referred By: RADHA Confirmed By:SADIE FENTON MD
--- NOTE | 2019-02-28 05:55 | ECHOD_ITS ---
Reason For Study: CHF Procedure This was a 2D Doppler, Color Flow transthoracic echocardiogram. Exam performed portable in patient room. Left Ventricle Normal LV size. Mild concentric left ventricular hypertrophy. The estimated ejection fraction is 55 %. Stage 2 diastolic dysfunction. Septal motion consistent with IVCD. No regional wall motion abnormalities noted. Right Ventricle Normal RV size. Normal systolic function. Atria The left atrium is mildly enlarged. Normal right atrium. Mitral Valve There is mild mitral annular calcification. Mild (1+) eccentric mitral valve insufficiency. Tricuspid Valve Normal tricuspid valve. Mild (1+) tricuspid valve insufficiency. Aortic Valve Trisinus/trileaflet aortic valve. Pulmonic Valve Normal pulmonic valve. Great Vessels Normal aortic root. The pulmonary artery is normal size. Normal inferior vena cava. Pericardium/Pleural No pericardial effusion. MMode/2D Measurements & Calculations LVIDd: 4.9 cm IVSd: 1.2 cm Ao root diam: 3.1 cm LVIDs: 3.2 cm LVPWd: 1.2 cm RVDd: 3.7 cm FS: 35.7 % LAV(MOD-bp): 70.2 ml LA A4 area: 21.7 cm2 LA dimension(2D): 4.0 cm LAV(MOD-bp) Indexed: 39.0 ml/m2 LAV(MOD-sp2): 72.3 ml LAV(MOD-sp4): 66.7 ml RA A4 area: 12.4 cm2 Time Measurements MV dec time: 0.21 sec Doppler Measurements & Calculations MV E max robel: 107.9 cm/sec Lat Peak E' Robel: 7.2 cm/sec Med Peak E' Robel: 4.5 cm/sec MV A max robel: 119.6 cm/sec E/E' lat: 15.1 E/E' med: 24.2 MV E/A: 0.90 Ao V2 max: 148.6 cm/sec LV V1 max: 111.1 cm/sec PA V2 max: 110.0 cm/sec Ao max P.8 mmHg LV V1 max P.9 mmHg TR max robel: 319.3 cm/sec TR max P.0 mmHg Interpretation Summary Normal LV size. Mild concentric left ventricular hypertrophy. The estimated ejection fraction is 55 %. Stage 2 diastolic dysfunction. No regional wall motion abnormalities noted. The left atrium is mildly enlarged. Mild (1+) eccentric mitral valve insufficiency. Septal motion consistent with IVCD. Mild (1+) tricuspid valve insufficiency. Ordering Physician: Ysabel Ruiz Referring Physician: Riley Roca Chi Performed By: Mariah Mcconnell RDCS, RVT
[2019-02-28 06:23] LABS: Absolute Lymphocyte Count 1.25 X10^3/ul (0.83-4.51); Absolute Neutrophil Count 14.4 X10^3/uL (2.0-7.7); Basophil# 0.03 X10^3/uL; Basophil% 0.2 % (0-1); Eosinophil# 0.03 X10^3/uL; Eosinophils% 0.2 % (0-5); Hematocrit 32.5 % (37-47); Hemoglobin 10.2 g/dl (12.0-15.0); Lymphocyte # 1.25 X10^3/ul (4.0); Lymphocyte % 7.3 % (19-41); Mean Corp Hgb Conc 31.4 g/gl (32-36); Mean Corpuscular Hgb 26.8 pg (27.0-32.0); Mean Corpuscular Volume 85.5 fL (81-99); Mean Platelet Vol. 10.7 fl (6.2-12.0); Monocyte% 8.1 % (0-10); Neutrophil # 14.43 X10^3/uL (2.7-7.7); Neutrophil % 83.8 % (47-70); Platelet Count 222 K/mm3 (150-450); RBC Distribution Width CV 15.7 % (11.6-14.6); RBC Distribution Width SD 49.4 fl (35.1-43.9); White Blood Count 17.2 K/mm3 (4.4-11.0)
[2019-02-28 06:44] LABS: POSITIVE COUNT NO; POSITIVE DIFFERENTIAL NO; POSITIVE MORPHOLOGY NO
[2019-02-28 06:49] LABS: Anion Gap 9 (5-15); BUN 13 mg/dL (7-18); BUN/Creat Ratio 15.5 RATIO (10-20); Chloride 98 mmol/L (98-107); Cholesterol 121 mg/dL (200); Creatinine, Serum 0.84 mg/dL (0.55-1.02); EST Glomerular Filtration Rate 70 mL/min (>60); Est Glom Filt Rate - Afr Amer 84 mL/min (>60); Estimated Creatinine Clearance 71.76 ml/min; Glucose 214 mg/dL (74-106); High Density Lipoprotein 51 mg/dL; Potassium 3.8 mmol/L (3.5-5.1); Sodium Level 135 mmol/L (136-145); Triglycerides 59 mg/dL; Very Low Density Lipoprotein 12 mg/dL (5-40)
--- NOTE | 2019-02-28 07:00 | RAD_ITS ---
STUDY: X-RAY CHEST REASON FOR EXAM: Female, 79 years old. Dyspnea and shortness of breath. TECHNIQUE: PA and lateral views of the chest. COMPARISON: Comparison is made with prior study dated February 27, 2019. FINDINGS: EKG electrodes are seen. The vascular congestion has improved. Minimal changes persist. There is no demonstrated pleural abnormality. There is borderline cardiomegaly. Normal mediastinum and twila. Normal visualized pulmonary arteries. There is atherosclerotic calcification of the aortic arch with tortuosity. Normal visualized thoracic spine. Normal visualized ribs, clavicles, and shoulders. There is no demonstrated abnormality of the visualized soft tissue structures of the upper abdomen. RAD/Chest PA and Lateral IMPRESSION: The CHF has improved as compared to prior study. Minimal residual changes persist. Electronically Signed: Crow Avalos, at 8:59 EDT , Service support ,
[2019-02-28 07:11] LABS: Bedside Glucose 181 mg/dL (70-110)
--- NOTE | 2019-02-28 08:16 | PCM.CONS.C ---
Reason for Consult Date of Consultation: 02/28/19 Reason for Consultation: Shortness of breath and evaluation of cardiac status. History of Present Illness: The patient is a 79 year old F with a history of coronary artery disease, ischemic cardiomyopathy with resolved ejection fraction, history of pulmonary embolism, peripheral vascular disease, diabetes mellitus, chronic anemia who presented to the emergency room because of a recent fall. She slipped and fell hitting her head and now presents with dyspnea. It was noted at rest. She was seen in the emergency room her blood pressure was noted to be markedly elevated and her natruretic peptide was also elevated. She had minimally elevated troponin enzymes. Her chest x-ray was suggestive of interstitial pulmonary edema. She was administered Lasix with some improvement. Cardiology was asked to see her today because of her overall cardiac status. She has no cardiac complaints at the moment. She denies any chest pain or shortness of breath or paroxysmal nocturnal dyspnea or pedal edema. [] Past Medical History Allergies/Adverse Reactions: Allergies latex Allergy (Verified 02/27/19 23:37) Rash Home Medications: Ambulatory Orders Medication Instructions Recorded Albuterol Sulfate [Proair Hfa] 2 puff INHALATION BID 12/23/13 Insulin Lispro [Humalog KwikPen] 10 unit SC TIDCM 12/23/13 Acetaminophen [Tylenol] 325 mg PO PRN PRN 01/25/15 Nitroglycerin (INPATIENT USE) 0.4 mg SUBLINGUAL PRN PRN 01/25/15 [Nitrostat] Insulin Glargine,Hum.rec.anlog 80 unit SQ DAILY 11/05/15 [Lonnie Knutson] aspirin 81 mg tablet,delayed 162 mg PO QDAY tab 03/31/18 release atenolol 50 mg tablet 50 mg PO QDAY 03/31/18 ergocalciferol (vitamin D2) 50,000 1,000 unit PO QWEEK cap 03/31/18 unit capsule lisinopril 40 mg tablet 40 mg PO QDAY #90 tab 07/26/18 atorvastatin 20 mg tablet 20 mg PO QDAY #30 tab 09/22/18 Furosemide [Lasix] 20 mg PO DAILY PRN PRN 02/26/19 Sertraline HCl 100 mg PO DAILY 02/26/19 Past Medical History (Chronic Problems): Chronic Problems (Last Updated 04/19/18 @ 16:25 by Penelope Hughes) Obesity (BMI 30-39.9) (Chronic) Anxiety and depression (Chronic) PAD (peripheral artery disease) (Chronic) Atherosclerotic heart disease of [place] coronary artery without angina pectoris (Chronic) PTCA/stent to mid first Diagonal 12/21/03; PTCA/stent to mid Diagonal 07/02/07 Left bundle branch block (Chronic) Ischemic cardiomyopathy (Chronic) Anemia due to chronic blood loss (Chronic) Benign hypertension (Chronic) CAD (coronary artery disease) (Chronic) History of depression (Chronic) Type II diabetes mellitus (Chronic) Dyspnea (Chronic) HLD (hyperlipidemia) (Chronic) History of pulmonary embolus (PE) (Chronic) History of coronary artery stent placement (Chronic) PTCA/stent to mid first Diagonal 12/21/03; PTCA/stent to mid Diagonal 07/02/07 NSTEMI (non-ST elevated myocardial infarction) (Chronic) Surgical History: - - Carpal tunnel surgery, PCI, cholecystectomy, knee surgery, hysterectomy. 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 - *Family History Maternal Family History: Family History (Last Reviewed 03/31/18 @ 15:28 by Mary Jo Ashby) Father CVA (cerebral vascular accident) Mother Heart disease CAD (coronary artery disease) Sister CAD (coronary artery disease) Daughter CAD (coronary artery disease) Myocardial infarction Daughter Diabetes History Items: High Cholesterol, Heart Disease, Hypertension Paternal Family History: Family History (Last Reviewed 03/31/18 @ 15:28 by Mary Jo Ashby) Father CVA (cerebral vascular accident) Mother Heart disease CAD (coronary artery disease) Sister CAD (coronary artery disease) Daughter CAD (coronary artery disease) Myocardial infarction Daughter Diabetes History Items: Stroke Lives: Alone Smoking Status: Never smoker Tobacco Use: Non-smoker Alcohol: Rare Drugs: None Review of Systems - Review of Systems General: Denies: Fever, Night Sweats, Fatigue HEENT: Denies: Vision Change Cardiovascular: Denies: Chest Discomfort, Shortness of Breath, Orthopnea, PND, Peripheral Edema, Palpitations, Lightheadedness, Dizziness, Near Syncope, Syncope Respiratory: Denies: Cough, Sputum Production, Hemoptysis Gastrointestinal: Denies: Hematemesis, Hematochezia, Melena Genitourinary: Denies: Dysuria, Hematuria Muscoloskeletal: Denies: Myalgias Skin: Denies: Rash Neurological: Denies: Dizziness Psychiatric: Reports: Anxiety Endocrine: Denies: Unexplained Weight Loss Hematologic/ Lymphatic: Reports: Anemia Subjectve: Pleasant lady in no apparent distress Objective: Vital Signs Temp Pulse Resp BP Pulse Ox 99.3 F H 60 16 136/42 H 98 02/28/19 03:24 02/28/19 07:37 02/28/19 07:37 02/28/19 03:24 02/28/19 07:37 Oxygen Flow Rate (L/min) 2.5 Oxygen Delivery Method Nasal Cannula Weight: 184 lb 8.43 oz Body Mass Index (BMI) 37.3 Intake and Output for Last 24 Hours 02/26/19 02/27/19 02/28/19 23:59 23:59 23:59 Intake Total 295 / 295 Output Total 900 / 900 Balance -605 / -605 General: Awake, Alert, Oriented x 3 HEENT: PERRL, EOMI, Sclera Non Icteric, - - Raccoon eyes. Neck: Supple, Good ROM, No Lymph Node Enlargement Lungs: Clear to auscultation Cardiovascular: Regular Rhythm, Normal S1, Normal S2, No Murmurs, No Rubs, No Gallops Vascular: No Carotid Bruits, Normal Femoral Pulses, Normal Radial Pulses, Normal Dorsalis Pedal Pulse, Normal Posterior Tibial Pulses Abdomen: Bowel Sounds Present, Soft, Non Tender, No HSM, No Organomegaly Extremities: No Cyanosis, No Clubbing, No edema Musculoskeletal: No Erythema Skin: No Rashes Lymphatic: No Lymph Node Enlargement Neurological: No Focal Motor or Sensory Deficit Psych/Mental Status: Appropriate 02/27/19 23:36: WBC 17.2 H, RBC 4.06 L, Hgb 11.0 L, Hct 35.5 L, MCV 87.4, MCH 27.1, MCHC 31.0 L, RDW 15.5 H, RDW Differential 48.9 H, Plt Count 268, MPV 11.0, Immature Gran % (Auto) 0.400, Neut % (Auto) 80.2 H, Lymph % (Auto) 11.9 L, [place] % (Auto) 6.4, Eos % (Auto) 0.9, Baso % (Auto) 0.2, Absolute Neuts (auto) 13.8 H, Total Counted Not Reportable 02/27/19 23:36: Sodium 137, Potassium 3.9, Chloride 101, Carbon Dioxide 29.0, Anion Gap 7, BUN 14, Creatinine 0.81, Est GFR (MDRD) Af Amer 88, Est GFR (MDRD) Non-Af 73, BUN/Creatinine Ratio 17.3, Glucose 229 H, Calcium 8.9, Troponin I < 0.015 02/27/19 23:36: B-Natriuretic Peptide 509.0 H 02/27/19 23:36: Magnesium 1.7 02/28/19 00:16: pH 7.45, Bicarbonate Actual 24.5, POC Total CO2 26, Base Excess 0, O2 Saturation 97, ABG pCO2 35.6, ABG pO2 84, Harshad Test POS 02/28/19 02:25: Troponin I 0.053 H 02/28/19 05:55: WBC 17.2 H, RBC 3.80 L, Hgb 10.2 L, Hct 32.5 L, MCV 85.5, MCH 26.8 L, MCHC 31.4 L, RDW 15.7 H, RDW Differential 49.4 H, Plt Count 222, MPV 10.7, Immature Gran % (Auto) 0.400, Neut % (Auto) 83.8 H, Lymph % (Auto) 7.3 L, [place] % (Auto) 8.1, Eos % (Auto) 0.2, Baso % (Auto) 0.2, Absolute Neuts (auto) 14.4 H, Total Counted Not Reportable 02/28/19 05:55: Sodium 135 L, Potassium 3.8, Chloride 98, Carbon Dioxide 28.0, Anion Gap 9, BUN 13, Creatinine 0.84, Est GFR (MDRD) Af Amer 84, Est GFR (MDRD) Non-Af 70, BUN/Creatinine Ratio 15.5, Glucose 214 H, Calcium 9.0, Troponin I 0.087 H, Triglycerides 59, Cholesterol 121, LDL Cholesterol 58, VLDL Cholesterol 12, HDL Cholesterol 51 : Heart catheterization from October 2015 showed an ejection fraction 45%, left main coronary artery angiographically normal, LAD with proximal mild calcification, 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 Stress test from November 2016 showed peak abnormal EKG with left bundle branch block with no obvious ECG changes and nuclear images revelead previous myocardial injury/infarction in portions of the distal anteroseptal segment cannot necessarily be excluded, there is no myocardial perfusions changes considered diagnostic for associated stress-induced myocardial ischemia and ejection fraction was 67%. Echocardiogram from March 2018 showed ejection fraction 55%, moderately enlarged left atrium, mild mitral annular calcification, mild focal mitral valve calcification of the anterior leaflet, mild mitral valve insufficiency, mild tricuspid valve deficiency, mild focal aortic valve complication, trivial pulmonic valve insufficiency, RVSP of 35 mmHg, and evidence of diastolic dysfunction. 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 Flow within the vertebral arteries is antegrade bilaterally. ALESSANDRO from March 2018 showed possibly elevated ALESSANDRO values. Further testing was recommended. CXR: Today is unremarkable EKG done today demonstrates normal sinus rhythm with a left bundle branch block and no acute changes Assessment/Plan 1. Mildly abnormal cardiac enzymes. Heart catheterization from October 2015 showed ejection fraction 45% and minimal, non-obstructive coronary artery disease. Stress test in November 2016 was negative for stress-induced myocardial ischemia. Echocardiogram in March 2018 showed ejection fraction 55%. Patient denies any chest pain, arm pain, jaw pain, neck pain, shortness of breath, or fatigue suggestive of angina at this time. We will continue to monitor this. We will not make any medication regimen changes and will continue risk factor modification. May recommend a pharmacologic myocardial perfusion stress test. 2. History of coronary artery stent placement Z95.5 PTCA/stent to mid first Diagonal 12/21/03; PTCA/stent to mid Diagonal 07/02/07 She will continue current treatment plan as outlined above. 3. Ischemic cardiomyopathy I25.5 Plan Her most recent echocardiogram showed ejection fraction 55%. She does continue to have shortness of breath on exertion. This may be related to her chronic anemia and/or decreased overall functional capacity. She appears to have mild congestive heart failure based on her natruretic peptide levels. At this time she will continue current medications which include beta-natividad, CEDRICK inhibitor, and diuretic. 4. PAD (peripheral artery disease) I73.9 Plan Her most recent ALESSANDRO in March 2018 showed possibly elevated ABIs. She was referred to Dr. House for further testing/evaluation. 5. Pure hypercholesterolemia E78.00 Plan Patient's most recent lipid panel from this admission demonstrated a total cholesterol 121, LDL of 58, and HDL of 51. Patient will continue current lipid-lowering medications. 6. Benign hypertension I10 Plan Patient's blood pressure is elevated. I suspect this was the cause of the elevated natruretic peptide level as well as the mild elevation in cardiac enzymes from diastolic dysfunction. We will continue to aggressively treat her blood pressures.. I do not think that her fall was related to any cardiac issues. As noted from the history she did trip and fall. We will continue to monitor this.
--- NOTE | 2019-02-28 08:21 | CON.PCM_ITS ---
Reason for Consult Date of Consultation: 02/28/19 Reason for Consultation: Shortness of breath and evaluation of cardiac status. History of Present Illness: The patient is a 79 year old F with a history of coronary artery disease, ischemic cardiomyopathy with resolved ejection fraction, history of pulmonary embolism, peripheral vascular disease, diabetes mellitus, chronic anemia who presented to the emergency room because of a recent fall. She slipped and fell hitting her head and now presents with dyspnea. It was noted at rest. She was seen in the emergency room her blood pressure was noted to be markedly elevated and her natruretic peptide was also elevated. She had minimally elevated troponin enzymes. Her chest x-ray was suggestive of interstitial pulmonary edema. She was administered Lasix with some improvement. Cardiology was asked to see her today because of her overall cardiac status. She has no cardiac complaints at the moment. She denies any chest pain or shortness of breath or paroxysmal nocturnal dyspnea or pedal edema. [] Past Medical History Allergies/Adverse Reactions: Allergies latex Allergy (Verified 02/27/19 23:37) Rash Home Medications: Ambulatory Orders Medication Instructions Recorded Albuterol Sulfate [Proair Hfa] 2 puff INHALATION BID 12/23/13 Insulin Lispro [Humalog KwikPen] 10 unit SC TIDCM 12/23/13 Acetaminophen [Tylenol] 325 mg PO PRN PRN 01/25/15 Nitroglycerin (INPATIENT USE) 0.4 mg SUBLINGUAL PRN PRN 01/25/15 [Nitrostat] Insulin Glargine,Hum.rec.anlog 80 unit SQ DAILY 11/05/15 [Lonnie Knutson] aspirin 81 mg tablet,delayed 162 mg PO QDAY tab 03/31/18 release atenolol 50 mg tablet 50 mg PO QDAY 03/31/18 ergocalciferol (vitamin D2) 50,000 1,000 unit PO QWEEK cap 03/31/18 unit capsule lisinopril 40 mg tablet 40 mg PO QDAY #90 tab 07/26/18 atorvastatin 20 mg tablet 20 mg PO QDAY #30 tab 09/22/18 Furosemide [Lasix] 20 mg PO DAILY PRN PRN 02/26/19 Sertraline HCl 100 mg PO DAILY 02/26/19 Past Medical History (Chronic Problems): Chronic Problems (Last Updated 04/19/18 @ 16:25 by Penelope Hughes) Obesity (BMI 30-39.9) (Chronic) Anxiety and depression (Chronic) PAD (peripheral artery disease) (Chronic) Atherosclerotic heart disease of [place] coronary artery without angina pectoris (Chronic) PTCA/stent to mid first Diagonal 12/21/03; PTCA/stent to mid Diagonal 07/02/07 Left bundle branch block (Chronic) Ischemic cardiomyopathy (Chronic) Anemia due to chronic blood loss (Chronic) Benign hypertension (Chronic) CAD (coronary artery disease) (Chronic) History of depression (Chronic) Type II diabetes mellitus (Chronic) Dyspnea (Chronic) HLD (hyperlipidemia) (Chronic) History of pulmonary embolus (PE) (Chronic) History of coronary artery stent placement (Chronic) PTCA/stent to mid first Diagonal 12/21/03; PTCA/stent to mid Diagonal 07/02/07 NSTEMI (non-ST elevated myocardial infarction) (Chronic) Surgical History: - - Carpal tunnel surgery, PCI, cholecystectomy, knee surgery, hysterectomy. 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 - *Family History Maternal Family History: Family History (Last Reviewed 03/31/18 @ 15:28 by Mary Jo Ashby) Father CVA (cerebral vascular accident) Mother Heart disease CAD (coronary artery disease) Sister CAD (coronary artery disease) Daughter CAD (coronary artery disease) Myocardial infarction Daughter Diabetes History Items: High Cholesterol, Heart Disease, Hypertension Paternal Family History: Family History (Last Reviewed 03/31/18 @ 15:28 by Mary Jo Ashby) Father CVA (cerebral vascular accident) Mother Heart disease CAD (coronary artery disease) Sister CAD (coronary artery disease) Daughter CAD (coronary artery disease) Myocardial infarction Daughter Diabetes History Items: Stroke Lives: Alone Smoking Status: Never smoker Tobacco Use: Non-smoker Alcohol: Rare Drugs: None Review of Systems - Review of Systems General: Denies: Fever, Night Sweats, Fatigue HEENT: Denies: Vision Change Cardiovascular: Denies: Chest Discomfort, Shortness of Breath, Orthopnea, PND, Peripheral Edema, Palpitations, Lightheadedness, Dizziness, Near Syncope, Syncope Respiratory: Denies: Cough, Sputum Production, Hemoptysis Gastrointestinal: Denies: Hematemesis, Hematochezia, Melena Genitourinary: Denies: Dysuria, Hematuria Muscoloskeletal: Denies: Myalgias Skin: Denies: Rash Neurological: Denies: Dizziness Psychiatric: Reports: Anxiety Endocrine: Denies: Unexplained Weight Loss Hematologic/ Lymphatic: Reports: Anemia Subjectve: Pleasant lady in no apparent distress Objective: Vital Signs Temp Pulse Resp BP Pulse Ox 99.3 F H 60 16 136/42 H 98 02/28/19 03:24 02/28/19 07:37 02/28/19 07:37 02/28/19 03:24 02/28/19 07:37 Oxygen Flow Rate (L/min) 2.5 Oxygen Delivery Method Nasal Cannula Weight: 184 lb 8.43 oz Body Mass Index (BMI) 37.3 Intake and Output for Last 24 Hours 02/26/19 02/27/19 02/28/19 23:59 23:59 23:59 Intake Total 295 / 295 Output Total 900 / 900 Balance -605 / -605 General: Awake, Alert, Oriented x 3 HEENT: PERRL, EOMI, Sclera Non Icteric, - - Raccoon eyes. Neck: Supple, Good ROM, No Lymph Node Enlargement Lungs: Clear to auscultation Cardiovascular: Regular Rhythm, Normal S1, Normal S2, No Murmurs, No Rubs, No Gallops Vascular: No Carotid Bruits, Normal Femoral Pulses, Normal Radial Pulses, Normal Dorsalis Pedal Pulse, Normal Posterior Tibial Pulses Abdomen: Bowel Sounds Present, Soft, Non Tender, No HSM, No Organomegaly Extremities: No Cyanosis, No Clubbing, No edema Musculoskeletal: No Erythema Skin: No Rashes Lymphatic: No Lymph Node Enlargement Neurological: No Focal Motor or Sensory Deficit Psych/Mental Status: Appropriate 02/27/19 23:36: WBC 17.2 H, RBC 4.06 L, Hgb 11.0 L, Hct 35.5 L, MCV 87.4, MCH 27.1, MCHC 31.0 L, RDW 15.5 H, RDW Differential 48.9 H, Plt Count 268, MPV 11.0, Immature Gran % (Auto) 0.400, Neut % (Auto) 80.2 H, Lymph % (Auto) 11.9 L, [place] % (Auto) 6.4, Eos % (Auto) 0.9, Baso % (Auto) 0.2, Absolute Neuts (auto) 13.8 H , Total Counted Not Reportable 02/27/19 23:36: Sodium 137, Potassium 3.9, Chloride 101, Carbon Dioxide 29.0, Anion Gap 7, BUN 14, Creatinine 0.81, Est GFR (MDRD) Af Amer 88, Est GFR (MDRD) Non-Af 73, BUN/Creatinine Ratio 17.3, Glucose 229 H, Calcium 8.9, Troponin I < 0.015 02/27/19 23:36: B-Natriuretic Peptide 509.0 H 02/27/19 23:36: Magnesium 1.7 02/28/19 00:16: pH 7.45, Bicarbonate Actual 24.5, POC Total CO2 26, Base Excess 0, O2 Saturation 97, ABG pCO2 35.6, ABG pO2 84, Harshad Test POS 02/28/19 02:25: Troponin I 0.053 H 02/28/19 05:55: WBC 17.2 H, RBC 3.80 L, Hgb 10.2 L, Hct 32.5 L, MCV 85.5, MCH 26.8 L, MCHC 31.4 L, RDW 15.7 H, RDW Differential 49.4 H, Plt Count 222, MPV 10.7, Immature Gran % (Auto) 0.400, Neut % (Auto) 83.8 H, Lymph % (Auto) 7.3 L, [place] % (Auto) 8.1, Eos % (Auto) 0.2, Baso % (Auto) 0.2, Absolute Neuts (auto) 14.4 H, Total Counted Not Reportable 02/28/19 05:55: Sodium 135 L, Potassium 3.8, Chloride 98, Carbon Dioxide 28.0, Anion Gap 9, BUN 13, Creatinine 0.84, Est GFR (MDRD) Af Amer 84, Est GFR (MDRD) Non-Af 70, BUN/Creatinine Ratio 15.5, Glucose 214 H, Calcium 9.0, Troponin I 0.087 H, Triglycerides 59, Cholesterol 121, LDL Cholesterol 58, VLDL Cholesterol 12, HDL Cholesterol 51 : Heart catheterization from October 2015 showed an ejection fraction 45%, left main coronary artery angiographically normal, LAD with proximal mild calcification, 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 Stress test from November 2016 showed peak abnormal EKG with left bundle branch block with no obvious ECG changes and nuclear images revelead previous myocardial injury/infarction in portions of the distal anteroseptal segment cannot necessarily be excluded, there is no myocardial perfusions changes considered diagnostic for associated stress-induced myocardial ischemia and ejection fraction was 67%. Echocardiogram from March 2018 showed ejection fraction 55%, moderately enlarged left atrium, mild mitral annular calcification, mild focal mitral valve calcification of the anterior leaflet, mild mitral valve insufficiency, mild tricuspid valve deficiency, mild focal aortic valve complication, trivial pulmonic valve insufficiency, RVSP of 35 mmHg, and evidence of diastolic dysfunction. 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 Flow within the vertebral arteries is antegrade bilaterally. ALESSANDRO from March 2018 showed possibly elevated ALESSANDRO values. Further testing was recommended. CXR: Today is unremarkable EKG done today demonstrates normal sinus rhythm with a left bundle branch block and no acute changes Assessment/Plan 1. Mildly abnormal cardiac enzymes. Heart catheterization from October 2015 showed ejection fraction 45% and minimal, non-obstructive coronary artery disease. Stress test in November 2016 was negative for stress-induced myocardial ischemia. Echocardiogram in March 20 showed ejection fraction 55%. Patient denies any chest pain, arm pain, jaw pain, neck pain, shortness of breath, or fatigue suggestive of angina at this time. We will continue to monitor this. We will not make any medication regimen changes and will continue risk factor modification. May recommend a pharmacologic myocardial perfusion stress test. 2. History of coronary artery stent placement Z95.5 PTCA/stent to mid first Diagonal 12/21/03; PTCA/stent to mid Diagonal 07/02/07 She will continue current treatment plan as outlined above. 3. Ischemic cardiomyopathy I25.5 Plan Her most recent echocardiogram showed ejection fraction 55%. She does continue to have shortness of breath on exertion. This may be related to her chronic anemia and/or decreased overall functional capacity. She appears to have mild congestive heart failure based on her natruretic peptide levels. At this time she will continue current medications which include beta-natividad, CEDRICK inhibitor, and diuretic. 4. PAD (peripheral artery disease) I73.9 Plan Her most recent ALESSANDRO in March 2018 showed possibly elevated ABIs. She was referred to Dr. House for further testing/evaluation. 5. Pure hypercholesterolemia E78.00 Plan Patient's most recent lipid panel from this admission demonstrated a total cholesterol 121, LDL of 58, and HDL of 51. Patient will continue current lipid- lowering medications. 6. Benign hypertension I10 Plan Patient's blood pressure is elevated. I suspect this was the cause of the elevated natruretic peptide level as well as the mild elevation in cardiac enzymes from diastolic dysfunction. We will continue to aggressively treat her blood pressures.. I do not think that her fall was related to any cardiac issues. As noted from the history she did trip and fall. We will continue to monitor this.
[2019-02-28] MEDS: Aspirin E.C. 81 MG Tablet 162 MG PO (08:51)
[2019-02-28] MEDS: Lisinopril 40 MG Tablet PO (08:52)
--- NOTE | 2019-02-28 09:58 | CASEMGMT ---
Patient has a Healthcare POA and Healthcare LW on file at [facility]. Shirlene RAMIREZ EDUCATIONAL PSYCHOLOGY PROFESSOR
--- NOTE | 2019-02-28 11:13 | STRESSREP ---
Stress Test Report Pharmacologic myocardial perfusion stress test. 79-year-old lady with a history of abnormal troponin. Stress protocol: Resting EKG demonstrates sinus rhythm with a rate of 62 bpm normal intervals are noted resting blood pressures 142/70 mmHg. The patient has a left bundle branch block pattern. 0.4 mg of regadenoson was infused per usual protocol followed by rapid intravenous saline flush injection continuous EKG monitoring was performed. The patient maintained sinus rhythm throughout the recording. At rest there were no ST or T wave changes noted suggest abnormal flow reserve the patient maintained left bundle branch block throughout. The resting blood pressure was 142/70 mmHg final blood pressure was 132/62 mmHg. Myocardial perfusion protocol: 14.0 mCi of technetium 99m sestamibi was injected at rest. 0.4 mg of regadenoson was infused per usual protocol peak infusion 43.8 mCi of technetium 99m sestamibi was injected stress images were obtained stress and rest images were reconstructed and compared in the short axis vertical and horizontal long axis. Gated images were also obtained next Perfusion SPECT analysis: Review of the stress images demonstrate a normal cardiac silhouettes. There is mildly reduced perfusion noted in the anterior septal wall which is present on the stress and resting images to a similar extent. The above appears to be suggestive of the left bundle branch block perfusion abnormalities that are noted. No obvious reversible changes are noted to suggest ischemia. Gated SPECT analysis: The gated ejection fraction is noted to be 43% with dyssynchrony noted. Conclusion: Myocardial perfusion stress test with evidence of left ventricular dyssynchrony No obvious ischemia noted Mild reduction of left ventricular function
[2019-02-28 12:01] LABS: Bedside Glucose 203 mg/dL (70-110)
[2019-02-28] MEDS: Enoxaparin 40 MG/0.4 ML Syringe SC (12:08)
[2019-02-28] MEDS: Sertraline 100 MG Tablet PO (12:08)
[2019-02-28] MEDS: Atenolol 50 MG Tablet PO (12:08)
--- NOTE | 2019-02-28 12:30 | PN_ITS ---
<Brianna Mckeon - Last Filed: 02/28/19 12:30> Patient Problems: Active and Suspected Problems (Last Updated 04/19/18 @ 16:25 by Penelope Hughes) Pneumonia (Acute) Subjective: Patient seen and examined. Shortness of breath improved. Underwent stress test this morning which was negative for ischemia. - Physical Exam General: Alert, Oriented x3, Cooperative HEENT: Atraumatic, PERRLA, EOMI, Normocephalic Neck: Supple, No JVD, Negative Carotid Bruits Lungs: Diminished, Rales Cardiovascular: Regular rate, Regular Rhythm, Normal S1, Normal S2, No murmurs Abdomen: Bowel Sounds Present, Soft, Non Tender, Non-Distended Extremities: No clubbing, No cyanosis, No edema, Capillary Refill Less than 3 Seconds Skin: No rashes, No breakdown, - - Extensive ecchymosis face secondary to recent fall. Musculoskeletal: No Tenderness to Palpation of Joints or Extremities Neurological: Cranial nerves II-XII grossly intact, Neuro grossly intact Psych/Mental Status: Normal Affect, Appropriate Vital Signs Temp Pulse Resp BP Pulse Ox 98.3 F 66 18 138/49 H 99 02/28/19 09:00 02/28/19 09:00 02/28/19 09:00 02/28/19 09:00 02/28/19 09:00 Oxygen Flow Rate (L/min) 2 Oxygen Delivery Method Nasal Cannula Weight: 184 lb 8.43 oz Body Mass Index (BMI) 37.3 Intake and Output for Last 24 Hours 02/26/19 02/27/19 02/28/19 23:59 23:59 23:59 Intake Total 295 / 295 Output Total 900 / 900 Balance -605 / -605 Microbiology Past 72 Hours 02/28/19 02:22 Streptococcus pneumoniae Antigen (M - Final Urine, Clean Catch 02/28/19 02:22 Legionella Antigen - Final Urine, Clean Catch Laboratory Tests Past 24 Hrs 02/27/19 02/27/19 02/27/19 23:36 23:36 23:36 WBC 17.2 H RBC 4.06 L Hgb 11.0 L Hct 35.5 L MCV 87.4 MCH 27.1 MCHC 31.0 L RDW 15.5 H RDW Differential 48.9 H Plt Count 268 MPV 11.0 Immature Gran % (Auto) 0.400 Neut % (Auto) 80.2 H Lymph % (Auto) 11.9 L [place] % (Auto) 6.4 Eos % (Auto) 0.9 Baso % (Auto) 0.2 Absolute Neuts (auto) 13.8 H Absolute Lymphs (auto) 2.05 Total Counted Not Reportable Specimen Type Sample Site pH Bicarbonate Actual POC Total CO2 Base Excess O2 Saturation ABG pCO2 ABG pO2 Harshad Test O2 Delivery Device Liter Flow Blood Gas Notified Whom Blood Gas Notified Time Sodium 137 Potassium 3.9 Chloride 101 Carbon Dioxide 29.0 Anion Gap 7 BUN 14 Creatinine 0.81 Estim Creat Clear Calc 40.45 Est GFR (MDRD) Af Amer 88 Est GFR (MDRD) Non-Af 73 BUN/Creatinine Ratio 17.3 Glucose 229 H Calcium 8.9 Magnesium Troponin I < 0.015 B-Natriuretic Peptide 509.0 H Triglycerides Cholesterol LDL Cholesterol VLDL Cholesterol HDL Cholesterol TSH 02/27/19 02/28/19 02/28/19 23:36 00:16 02:25 WBC RBC Hgb Hct MCV MCH MCHC RDW RDW Differential Plt Count MPV Immature Gran % (Auto) Neut % (Auto) Lymph % (Auto) [place] % (Auto) Eos % (Auto) Baso % (Auto) Absolute Neuts (auto) Absolute Lymphs (auto) Total Counted Specimen Type ART Sample Site L Radial pH 7.45 Bicarbonate Actual 24.5 POC Total CO2 26 Base Excess 0 O2 Saturation 97 ABG pCO2 35.6 ABG pO2 84 Harshad Test POS O2 Delivery Device Nasal Can Liter Flow 2.0 Blood Gas Notified Whom ED MD Blood Gas Notified Time 8 Sodium Potassium Chloride Carbon Dioxide Anion Gap BUN Creatinine Estim Creat Clear Calc Est GFR (MDRD) Af Amer Est GFR (MDRD) Non-Af BUN/Creatinine Ratio Glucose Calcium Magnesium 1.7 Troponin I 0.053 H B-Natriuretic Peptide Triglycerides Cholesterol LDL Cholesterol VLDL Cholesterol HDL Cholesterol TSH 0.28 L 02/28/19 02/28/19 05:55 05:55 WBC 17.2 H RBC 3.80 L Hgb 10.2 L Hct 32.5 L MCV 85.5 MCH 26.8 L MCHC 31.4 L RDW 15.7 H RDW Differential 49.4 H Plt Count 222 MPV 10.7 Immature Gran % (Auto) 0.400 Neut % (Auto) 83.8 H Lymph % (Auto) 7.3 L [place] % (Auto) 8.1 Eos % (Auto) 0.2 Baso % (Auto) 0.2 Absolute Neuts (auto) 14.4 H Absolute Lymphs (auto) 1.25 Total Counted Not Reportable Specimen Type Sample Site pH Bicarbonate Actual POC Total CO2 Base Excess O2 Saturation ABG pCO2 ABG pO2 Harshad Test O2 Delivery Device Liter Flow Blood Gas Notified Whom Blood Gas Notified Time Sodium 135 L Potassium 3.8 Chloride 98 Carbon Dioxide 28.0 Anion Gap 9 BUN 13 Creatinine 0.84 Estim Creat Clear Calc 71.76 Est GFR (MDRD) Af Amer 84 Est GFR (MDRD) Non-Af 70 BUN/Creatinine Ratio 15.5 Glucose 214 H Calcium 9.0 Magnesium Troponin I 0.087 H B-Natriuretic Peptide Triglycerides 59 Cholesterol 121 LDL Cholesterol 58 VLDL Cholesterol 12 HDL Cholesterol 51 TSH POC Glucose 02/28/19 02/28/19 11:54 06:53 POC Glucose 203 H 181 H Medical Necessity - Tobacco Use Smoking Status: Never smoker Tobacco Use: Non-smoker Assessment/Plan All Active Problems (Last Updated 04/19/18 @ 16:25 by Penelope Hughes) Pneumonia (Acute) History of carpal tunnel release (Resolved) Hx of knee surgery (Resolved) H/O: hysterectomy (Resolved) Hx of cholecystectomy (Resolved) Presence of other cardiac implants and grafts (Resolved) 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 Acute diastolic CHF/prior history of systolic CHF/ischemic cardiomyopathy- echocardiogram March 2018 with EF 55%. Repeat echocardiogram pending. Cardiology following. Patient follows with Dr. Billy as outpatient. BNP 509. Chest x-ray on admission with interstitial pulmonary edema. Repeat chest x-ray shows improvement of CHF. No documented hypoxia. Wean oxygen as tolerated to maintain O2 at or above 90%. Continue IV Lasix. Pneumonia initially suspected on admission given leukocytosis and low-grade temp however repeat chest x-ray without infiltrate. Urine negative for strep and Legionella. DC antibiotics. Check urinalysis. 2. CAD with history of stent placement-patient underwent stress test which was negative for ischemia. Continue aspirin, statin, beta-natividad. 3. PAD-follows with Dr. House. Continue aspirin, statin. 4. Hypertension-stable, continue home atenolol, lisinopril regimen. 5. Hyperlipidemia-continue statin. 6. Type 2 diabetes mellitus-hold oral regimen. Accu-Cheks AC at bedtime with sliding scale insulin. 7. Anxiety/depression-continue home sertraline regimen. 8. Obesity-encouraged diet and lifestyle modifications. 9. Recent fall with facial ecchymosis-reports she was seen following this at urgent care. PT/OT. 10. Chronic normocytic anemia-stable. DVT prophylaxis-Lovenox subcu This patient was seen by DAINA Gamble under the supervision of Dr. Aragon. <Quinton Aragon - Last Filed: 02/28/19 12:45> Subjective: Breathing better. - Physical Exam General: Alert, Cooperative HEENT: Normocephalic Neck: No Nodes, Thyroid Normal Size and Texture Lungs: Diminished, Rales Cardiovascular: Regular rate, Regular Rhythm, Normal S1, Normal S2, No murmurs Abdomen: Bowel Sounds Present, Soft, Non Tender, Non-Distended Extremities: No edema, No Calf Tenderness Skin: No rashes, No breakdown, - - Extensive ecchymosis face secondary to recent fall. Brusing on face over eyes bilaterally. Musculoskeletal: No Tenderness to Palpation of Joints or Extremities, No Muscle Wasting Psych/Mental Status: Normal Affect, Appropriate Vital Signs Temp Pulse Resp BP Pulse Ox 36.8 C 66 18 138/49 H 99 02/28/19 09:00 02/28/19 09:00 02/28/19 09:00 02/28/19 09:00 02/28/19 09:00 Oxygen Flow Rate (L/min) 2 Oxygen Delivery Method Nasal Cannula Weight: 83.7 kg Body Mass Index (BMI) 37.3 Intake and Output for Last 24 Hours 02/26/19 02/27/19 02/28/19 23:59 23:59 23:59 Intake Total 535 / 535 Output Total 1400 / 1400 Balance -865 / -865 Microbiology Past 72 Hours 02/28/19 02:22 Streptococcus pneumoniae Antigen (M - Final Urine, Clean Catch 02/28/19 02:22 Legionella Antigen - Final Urine, Clean Catch Laboratory Tests Past 24 Hrs 02/27/19 02/27/19 02/27/19 23:36 23:36 23:36 WBC 17.2 H RBC 4.06 L Hgb 11.0 L Hct 35.5 L MCV 87.4 MCH 27.1 MCHC 31.0 L RDW 15.5 H RDW Differential 48.9 H Plt Count 268 MPV 11.0 Immature Gran % (Auto) 0.400 Neut % (Auto) 80.2 H Lymph % (Auto) 11.9 L [place] % (Auto) 6.4 Eos % (Auto) 0.9 Baso % (Auto) 0.2 Absolute Neuts (auto) 13.8 H Absolute Lymphs (auto) 2.05 Total Counted Not Reportable Specimen Type Sample Site pH Bicarbonate Actual POC Total CO2 Base Excess O2 Saturation ABG pCO2 ABG pO2 Harshad Test O2 Delivery Device Liter Flow Blood Gas Notified Whom Blood Gas Notified Time Sodium 137 Potassium 3.9 Chloride 101 Carbon Dioxide 29.0 Anion Gap 7 BUN 14 Creatinine 0.81 Estim Creat Clear Calc 40.45 Est GFR (MDRD) Af Amer 88 Est GFR (MDRD) Non-Af 73 BUN/Creatinine Ratio 17.3 Glucose 229 H Calcium 8.9 Magnesium Troponin I < 0.015 B-Natriuretic Peptide 509.0 H Triglycerides Cholesterol LDL Cholesterol VLDL Cholesterol HDL Cholesterol TSH 02/27/19 02/28/19 02/28/19 23:36 00:16 02:25 WBC RBC Hgb Hct MCV MCH MCHC RDW RDW Differential Plt Count MPV Immature Gran % (Auto) Neut % (Auto) Lymph % (Auto) [place] % (Auto) Eos % (Auto) Baso % (Auto) Absolute Neuts (auto) Absolute Lymphs (auto) Total Counted Specimen Type ART Sample Site L Radial pH 7.45 Bicarbonate Actual 24.5 POC Total CO2 26 Base Excess 0 O2 Saturation 97 ABG pCO2 35.6 ABG pO2 84 Harshad Test POS O2 Delivery Device Nasal Can Liter Flow 2.0 Blood Gas Notified Whom ED MD Blood Gas Notified Time 8 Sodium Potassium Chloride Carbon Dioxide Anion Gap BUN Creatinine Estim Creat Clear Calc Est GFR (MDRD) Af Amer Est GFR (MDRD) Non-Af BUN/Creatinine Ratio Glucose Calcium Magnesium 1.7 Troponin I 0.053 H B-Natriuretic Peptide Triglycerides Cholesterol LDL Cholesterol VLDL Cholesterol HDL Cholesterol TSH 0.28 L 02/28/19 02/28/19 05:55 05:55 WBC 17.2 H RBC 3.80 L Hgb 10.2 L Hct 32.5 L MCV 85.5 MCH 26.8 L MCHC 31.4 L RDW 15.7 H RDW Differential 49.4 H Plt Count 222 MPV 10.7 Immature Gran % (Auto) 0.400 Neut % (Auto) 83.8 H Lymph % (Auto) 7.3 L [place] % (Auto) 8.1 Eos % (Auto) 0.2 Baso % (Auto) 0.2 Absolute Neuts (auto) 14.4 H Absolute Lymphs (auto) 1.25 Total Counted Not Reportable Specimen Type Sample Site pH Bicarbonate Actual POC Total CO2 Base Excess O2 Saturation ABG pCO2 ABG pO2 Harshad Test O2 Delivery Device Liter Flow Blood Gas Notified Whom Blood Gas Notified Time Sodium 135 L Potassium 3.8 Chloride 98 Carbon Dioxide 28.0 Anion Gap 9 BUN 13 Creatinine 0.84 Estim Creat Clear Calc 71.76 Est GFR (MDRD) Af Amer 84 Est GFR (MDRD) Non-Af 70 BUN/Creatinine Ratio 15.5 Glucose 214 H Calcium 9.0 Magnesium Troponin I 0.087 H B-Natriuretic Peptide Triglycerides 59 Cholesterol 121 LDL Cholesterol 58 VLDL Cholesterol 12 HDL Cholesterol 51 TSH POC Glucose 02/28/19 02/28/19 11:54 06:53 POC Glucose 203 H 181 H Assessment/Plan Patient seen and examined independently. Data reviewed. I agree with the above note by the nurse practitioner. 1. Acute HFpEF * EF 55% from March 2018. * Continue IV lasix. 2. CAD: stress negative. Continue ASA, statin and BB. Code Visit Inpatient E&M: 68259 Subs Hosp L2
[2019-02-28] MEDS: Insulin Lispro 100 UNIT/ML INSULN.PEN SQ (12:43)
[2019-02-28] MEDS: Insulin Lispro 100 UNIT/ML INSULN.PEN 10 UNIT SC (12:44)
--- NOTE | 2019-02-28 14:02 | CASEMGMT ---
Addendum entered by Mina Rosales 02/28/19 14:20: Request for 4 prong cane. Script faxed to [facility] [employer]. If this is not covered by insurance, cost is $20. Original Note: RN CM Assessment Presentation: CHF, Pneumonia, Hx of recent fall with bilateral orbital ecchymosis. Intro role of CM and purpose of RN CM assessment to patient and family in room. Pt is awake, alert and able to participate in assessment. Demographics, PCP and Pharmacy verified. Pt states prior to this past fall, she was independent living at home and plans to return home on dc. PCP: Dr. Roca Specialists: Dr. Lu Preferred Pharmacy: [facility] Insurance: [employer]. Prescription Benefit: yes LNOK: Daughter Living Arrangements: apartment. Pt lives alone, states she is independent in ADL. Uses cane or walker around home intermittently. Has medical alert, but admits to not wearing consistently. Pt does own cooking, shopping. Recent fall in tub and hx of recent falls. Pt attributes to not paying attention and not using my cane or walker. Pt states she is having a walk in tub being placed in near future. Transportation: drives, but family can assist DME: walker, cane. Medical Alert, No oxygen use. Blood glucose monitor- pt states she uses once a day if I remember. Encouraged to speak with her physician re: recommended BG monitoring for home. HHC: Pt states has had [facility] in past and is agreeable to have on dc. [place]. If PT/OT is recommended @ home, can be added. JUDSON ANDERSON called to Penelope with [facility] and they are able to accept pt. Patient DC goals: Home DC PLAN: Home with [facility] for R[place]. Can add PT/OT if recommended. Yessica TERESA RN ACM
[2019-02-28 16:55] LABS: Bedside Glucose 60 mg/dL (70-110)
[2019-02-28 17:03] LABS: Mucous, Urine 0 SEEN /hpf (<or=2+)
[2019-02-28 17:09] LABS: Color, Urine Yellow (Yellow); Glucose, Dipstick Normal (Normal); Ketone-Dipstick Negative (Negative); Leukocyte Esterase-Dipstick 500 /ul (Negative); Nitrite-Dipstick Negative (Negative); Occult Blood-Urine 10 /ul (Negative); Protein-Dipstick Negative (Negative); Specific Gravity, Urine 1.005 (1.002-1.030); Urine Bilirubin Dipstick Negative (Negative); Urine Clarity Sl. Cloudy (Clear); Urine Urobilinogen Normal (Normal)
[2019-02-28 17:23] LABS: Bacteria RARE /hpf (None Seen); Red Blood Cells-Urine 0-5 SEEN /hpf (0-5); Squamous Epithelial Cells - UA 5-10 SEEN /hpf (5-10); White Blood Cells 10-25 SEEN /hpf (0-5)
[2019-02-28 17:40] LABS: Bedside Glucose 127 mg/dL (70-110)
[2019-02-28] MEDS: Atorvastatin Calcium 20 MG Tablet PO (21:32)
[2019-02-28 22:10] LABS: Bedside Glucose 68 mg/dL (70-110)
[2019-02-28 22:10] LABS: Bedside Glucose 106 mg/dL (70-110)
[2019-03-01] VITALS (8 sets, daily range): BP systolic 143–161; BP diastolic 52–57; PULSE 54–67; RESP 16–18; TEMP 36.3–37.1; O2SAT 91–99
[2019-03-01 02:56] LABS: Bedside Glucose 71 mg/dL (70-110)
[2019-03-01 06:39] LABS: Hematocrit 34.9 % (37-47); Hemoglobin 10.5 g/dl (12.0-15.0); Mean Corp Hgb Conc 30.1 g/gl (32-36); Mean Corpuscular Hgb 25.9 pg (27.0-32.0); Mean Corpuscular Volume 86.2 fL (81-99); Mean Platelet Vol. 11.3 fl (6.2-12.0); Platelet Count 240 K/mm3 (150-450); RBC Distribution Width CV 15.9 % (11.6-14.6); RBC Distribution Width SD 49.3 fl (35.1-43.9); Red Blood Count 4.05 M/mm3 (4.2-5.4); White Blood Count 11.5 K/mm3 (4.4-11.0)
[2019-03-01 06:44] LABS: Scan Indicated on CBC? Y/N NO
[2019-03-01 06:45] LABS: Bedside Glucose 111 mg/dL (70-110)
[2019-03-01 06:55] LABS: Anion Gap 9 (5-15); BUN 17 mg/dL (7-18); BUN/Creat Ratio 22.1 RATIO (10-20); Calcium,Total 9.2 mg/dL (8.5-10.1); Chloride 102 mmol/L (98-107); Creatinine, Serum 0.77 mg/dL (0.55-1.02); EST Glomerular Filtration Rate 77 mL/min (>60); Est Glom Filt Rate - Afr Amer 93 mL/min (>60); Estimated Creatinine Clearance 58.48 ml/min; Glucose 118 mg/dL (74-106); Potassium 3.3 mmol/L (3.5-5.1); Sodium Level 141 mmol/L (136-145)
[2019-03-01] MEDS: Ipratropium/Albuterol Sulfate 3 ML AMPUL.NEB INHALATION ×2 (07:00→13:34)
[2019-03-01] MEDS: Furosemide 40 MG/4 ML Vial IV (09:05)
[2019-03-01] MEDS: Aspirin E.C. 81 MG Tablet 162 MG PO (09:05)
[2019-03-01] MEDS: 0.9% NaCl Peripheral Flush Adult/Peds IV (09:05)
[2019-03-01] MEDS: Atenolol 50 MG Tablet PO (09:06)
[2019-03-01] MEDS: Enoxaparin 40 MG/0.4 ML Syringe SC (09:06)
[2019-03-01] MEDS: Lisinopril 40 MG Tablet PO (09:06)
[2019-03-01] MEDS: Sertraline 100 MG Tablet PO (09:06)
[2019-03-01 11:30] LABS: Bedside Glucose 186 mg/dL (70-110)
[2019-03-01] MEDS: Isosorbide Mononitrate 30 MG Tablet PO (11:32)
--- NOTE | 2019-03-01 11:37 | PN.CARD_ITS ---
Subjectve: She states she feels better today. She believes her breathing is better today. She denies any ongoing chest discomfort. Objective: Vital Signs Temp Pulse Resp BP Pulse Ox 98.8 F 63 18 161/54 H 92 03/01/19 08:45 03/01/19 08:45 03/01/19 08:45 03/01/19 08:45 03/01/19 08:45 Oxygen Flow Rate (L/min) 2 Oxygen Delivery Method Room Air Weight: 179 lb 0.246 oz Body Mass Index (BMI) 37.3 Intake and Output for Last 24 Hours 02/27/19 02/28/19 03/01/19 23:59 23:59 23:59 Intake Total 1195 / 1195 600 / 600 Output Total 2450 / 2450 220 / 220 Balance -1255 / -1255 380 / 380 General: Awake, Alert, Oriented x 3, Cooperative, No Acute Distress HEENT: - - Positive diffuse ecchymoses Oral: Moist Mucosa Neck: Supple, Good ROM, No JVD Lungs: Diminished Fernando Bases - Minimal Cardiovascular: Regular Rhythm, Normal S1, Normal S2 Abdomen: Bowel Sounds Present, Soft, Non Tender Extremities: No edema Skin: - - Face: Positive ecchymoses Psych/Mental Status: Appropriate 02/28/19 : Urine Color Yellow, Urine Clarity Sl. Cloudy, Urine pH 7.0, Ur Specific [place] 1.005, Urine Protein Negative, Urine Glucose (UA) Normal, Urine Ketones Negative, Urine Occult Blood 10 H, Urine Nitrite Negative, Urine Bilirubin Negative, Urine Urobilinogen Normal, Ur Leukocyte Esterase 500 H, Urine RBC 0-5 SEEN, Urine WBC 10-25 SEEN 03/01/19 06:10: WBC 11.5 H, RBC 4.05 L, Hgb 10.5 L, Hct 34.9 L, MCV 86.2, MCH 25.9 L, MCHC 30.1 L, RDW 15.9 H, RDW Differential 49.3 H, Plt Count 240, MPV 11.3 03/01/19 06:10: Sodium 141, Potassium 3.3 L, Chloride 102, Carbon Dioxide 30.0, Anion Gap 9, BUN 17, Creatinine 0.77, Est GFR (MDRD) Af Amer 93, Est GFR (MDRD) Non-Af 77, BUN/Creatinine Ratio 22.1 H, Glucose 118 H, Calcium 9.2 Rhythm: Sinus rhythm ECHO: Interpretation Summary Normal LV size. Mild concentric left ventricular hypertrophy. The estimated ejection fraction is 55 %. Stage 2 diastolic dysfunction. No regional wall motion abnormalities noted. The left atrium is mildly enlarged. Mild (1+) eccentric mitral valve insufficiency. Septal motion consistent with IVCD. Mild (1+) tricuspid valve insufficiency. Stress Test: Pharmacologic myocardial perfusion stress test. 79-year-old lady with a history of abnormal troponin. Stress protocol: Resting EKG demonstrates sinus rhythm with a rate of 62 bpm normal intervals are noted resting blood pressures 142/70 mmHg. The patient has a left bundle branch block pattern. 0.4 mg of regadenoson was infused per usual protocol followed by rapid intravenous saline flush injection continuous EKG monitoring was performed. The patient maintained sinus rhythm throughout the recording. At rest there were no ST or T wave changes noted suggest abnormal flow reserve the patient maintained left bundle branch block throughout. The resting blood pressure was 142/70 mmHg final blood pressure was 132/62 mmHg. Myocardial perfusion protocol: 14.0 mCi of technetium 99m sestamibi was injected at rest. 0.4 mg of regadenoson was infused per usual protocol peak infusion 43.8 mCi of technetium 99m sestamibi was injected stress images were obtained stress and rest images were reconstructed and compared in the short axis vertical and horizontal long axis. Gated images were also obtained next Perfusion SPECT analysis: Review of the stress images demonstrate a normal cardiac silhouettes. There is mildly reduced perfusion noted in the anterior septal wall which is present on the stress and resting images to a similar extent. The above appears to be suggestive of the left bundle branch block perfusion abnormalities that are noted. No obvious reversible changes are noted to suggest ischemia. Gated SPECT analysis: The gated ejection fraction is noted to be 43% with dyssynchrony noted. Conclusion: Myocardial perfusion stress test with evidence of left ventricular dyssynchrony No obvious ischemia noted Mild reduction of left ventricular function Medical Necessity - Tobacco Use Smoking Status: Never smoker Tobacco Use: Non-smoker Assessment/Plan 1. Abnormal cardiac enzymes The patient did have abnormal cardiac enzymes. She has gone through noninvasive evaluation with the results as noted above. At the present time her enzymes may be secondary to a type II supply demand mismatch event. She will continue medical management. There are no immediate plans for further catheter based evaluation at this time. 2. CAD status post PCI-remote Again the patient has undergone noninvasive evaluation as described above. At the present time she will continue medical management. 3. Ischemic mediated cardiomyopathy Her overall LV systolic function has been reassessed. Findings are as noted above. She will continue medical management at this time. 4. CHF: Acute diastolic She did have findings compatible with volume overload. She has been treated medically. She has had symptomatic improvement. Her medications will be optimized. She will continue with inpatient and outpatient follow-up. 5. Hyperlipidemia She will continue medical management as deemed appropriate. 6. Hypertension Her blood pressures will be followed. Her medications will be adjusted as needed. 7. Fall She had an accidental fall per her report and the [facility] medical staff report. This resulted in facial ecchymoses. She is recuperating from her injuries. Overall, from a cardiac standpoint, she will continue medical management. Her medications will be optimized. She will need continued follow-up as an inpatient as well as an outpatient with respect to her cardiovascular course. There are no immediate plans for further invasive evaluation or care at this time. Comment: The above was discussed with the [facility] staff. This note was generated using a voice recognition system and there may be incorrect words, spelling or punctuation that were not noted when reviewing the office note prior to saving.
--- NOTE | 2019-03-01 11:37 | PCM.DC ---
- Discharge Diagnoses Current Active Problems: Current Active and Chronic Problems (Last Updated 04/19/18 @ 16:25 by Penelope Hughes) CHF You will use the following diet at home:: Calorie/Carbohydrate Controlled (specify 1200, 1400, etc), Cardiac Discharge Activity: Return to Normal Activity Call your doctor if you observe: Shortness of breath, Dizziness, Fainting spells, Chest pain Allergies/Adverse Reactions: Allergies latex Allergy (Verified 02/27/19 23:37) Rash Medications to take at Discharge Albuterol Sulfate [Proair Hfa] 2 puff INHALATION BID 12/23/13 Insulin Lispro [Humalog KwikPen] 10 unit SC TIDCM 12/23/13 Acetaminophen [Tylenol] 325 mg PO PRN PRN 01/25/15 Nitroglycerin (INPATIENT USE) [Nitrostat] 0.4 mg SUBLINGUAL PRN PRN 01/25/15 Insulin Glargine,Hum.rec.anlog [Toujeo Solostar] 80 unit SQ DAILY 11/05/15 aspirin 81 mg tablet,delayed release 162 mg PO QDAY tab 03/31/18 atenolol 50 mg tablet 50 mg PO QDAY 03/31/18 ergocalciferol (vitamin D2) 50,000 unit capsule 1,000 unit PO QWEEK cap 03/31/18 lisinopril 40 mg tablet 40 mg PO QDAY #90 tab 07/26/18 atorvastatin 20 mg tablet 20 mg PO QDAY #30 tab 09/22/18 Sertraline HCl 100 mg PO DAILY 02/26/19 Furosemide [Lasix] 40 mg PO BID@1000,1800 #60 tablet 03/01/19 Isosorbide Mononitrate [Imdur] 30 mg PO DAILY #30 tablet 03/01/19 The following prescriptions were given: Furosemide [Lasix] 40 mg PO BID@1000,1800 #60 tablet Isosorbide Mononitrate [Imdur] 30 mg PO DAILY #30 tablet Primary Care Physician: Riley Roca Chi, MD [Primary Care Provider] - Please follow up with your Primary Care Physician in: 1 Week Test Results: Test results from this visit will be discussed in further detail at your follow-up appointment, if applicable. Please Follow Up With: Guicho Billy MD - May see ARCHIVAL RECORDS CLERK/PA When: 1-2 Weeks Proposed Discharge Date: 03/01/19
--- NOTE | 2019-03-01 11:40 | PCM.DC.SUM ---
<Brianna Mckeon - Last Filed: 03/01/19 11:57> Discharge Date and Diagnosis Date of Admission: 02/28/19 Date of Discharge: 03/01/19 - Primary Discharge Diagnosis Active and Suspected Problems (Last Updated 04/19/18 @ 16:25 by Penelope Hughes) 1. Acute diastolic CHF/prior history of systolic CHF/ischemic cardiomyopathy 2. CAD with history of stent placement, ACS ruled out 3. PAD 4. Hypertension 5. Hyperlipidemia 6. Type 2 diabetes mellitus 7. Anxiety/depression 8. Obesity 9. Recent fall with facial ecchymosis 10. Chronic normocytic anemia - Secondary Discharge Diagnosis Chronic Problems (Last Updated 04/19/18 @ 16:25 by Penelope Hughes) Obesity (BMI 30-39.9) (Chronic) Anxiety and depression (Chronic) PAD (peripheral artery disease) (Chronic) Atherosclerotic heart disease of [place] coronary artery without angina pectoris (Chronic) PTCA/stent to mid first Diagonal 12/21/03; PTCA/stent to mid Diagonal 07/02/07 Left bundle branch block (Chronic) Ischemic cardiomyopathy (Chronic) Anemia due to chronic blood loss (Chronic) Benign hypertension (Chronic) CAD (coronary artery disease) (Chronic) History of depression (Chronic) Type II diabetes mellitus (Chronic) Dyspnea (Chronic) HLD (hyperlipidemia) (Chronic) History of pulmonary embolus (PE) (Chronic) History of coronary artery stent placement (Chronic) PTCA/stent to mid first Diagonal 12/21/03; PTCA/stent to mid Diagonal 07/02/07 NSTEMI (non-ST elevated myocardial infarction) (Chronic) Hospital Course and Treatment Imaging Results: Diagnostic Data Chest X-Ray 02/28/19 07:00 IMPRESSION: The CHF has improved as compared to prior study. Minimal residual changes persist. Electronically Signed: Crow Avalos, at 8:59 EDT , Service support , Dr. Billy/Dr. Lu- Cardiology Operations: None Procedures: 2-D Echocardiogram, Stress test Summary of Care Provided: The patient is a 79 year old F admitted 02/28/2019 due to dyspnea. 1. Acute diastolic CHF/prior history of systolic CHF/ischemic cardiomyopathy-echocardiogram March 2018 with EF 55%. Repeat echocardiogram showed an EF of 55%, stage II diastolic dysfunction, mild mitral valve insufficiency, septal motion consistent with IVCD, mild tricuspid valve insufficiency. Cardiology following. Patient follows with Dr. Billy as outpatient. BNP 509. Chest x-ray on admission with interstitial pulmonary edema. Repeat chest x-ray shows improvement of CHF. Oxygen now stable on room air. Patient received IV Lasix during admission, discharged on oral Lasix 40 mg twice daily. Additionally started on Imdur 30 mg daily per cardiology. Pneumonia initially suspected on admission given leukocytosis and low-grade temp however repeat chest x-ray without infiltrate. Urine negative for strep and Legionella. Further antibiotics discontinued. Urinalysis with 10-25 WBC, 500 leukocyte. Patient asymptomatic. Culture was sent and will follow. Follow-up with primary care physician in 1 week. Follow-up with cardiology in 1 to 2 weeks. 2. CAD with history of stent placement-patient underwent stress test which was negative for ischemia. Continue aspirin, statin, beta-natividad, Imdur added. 3. PAD-follows with Dr. House. Continue aspirin, statin. 4. Hypertension-stable, continue home atenolol, lisinopril regimen. 5. Hyperlipidemia-continue statin. 6. Type 2 diabetes mellitus-continue home oral/insulin regimen. 7. Anxiety/depression-continue home sertraline regimen. 8. Obesity-encouraged diet and lifestyle modifications. 9. Recent fall with facial ecchymosis-reports she was seen following this at urgent care. Home health services at discharge. 10. Chronic normocytic anemia-stable. General: Alert, Oriented x3, Cooperative HEENT: Atraumatic, PERRLA, EOMI, Normocephalic Neck: Supple, No JVD, Negative Carotid Bruits Lungs: Diminished, clear to auscultation Cardiovascular: Regular rate, Regular Rhythm, Normal S1, Normal S2, No murmurs Abdomen: Bowel Sounds Present, Soft, Non Tender, Non-Distended Extremities: No clubbing, No cyanosis, No edema, Capillary Refill Less than 3 Seconds Skin: No rashes, No breakdown, - - Extensive ecchymosis face secondary to recent fall. Musculoskeletal: No Tenderness to Palpation of Joints or Extremities Neurological: Cranial nerves II-XII grossly intact, Neuro grossly intact Psych/Mental Status: Normal Affect, Appropriate Patient seen and examined prior to discharge. Physical assessment as noted above. Patient is stable for discharge with follow up recommendations as noted above. This patient was seen by DAINA Gamble under the supervision of Dr. Aragon. - Physical Exam Vital Signs Temp Pulse Resp BP Pulse Ox 98.8 F 63 18 161/54 H 92 03/01/19 08:45 03/01/19 08:45 03/01/19 08:45 03/01/19 08:45 03/01/19 08:45 Oxygen Flow Rate (L/min) 2 Oxygen Delivery Method Room Air Weight: 179 lb 0.246 oz Body Mass Index (BMI) 37.3 Intake and Output for Last 24 Hours 02/27/19 02/28/19 03/01/19 23:59 23:59 23:59 Intake Total 1195 / 1195 600 / 600 Output Total 2450 / 2450 220 / 220 Balance -1255 / -1255 380 / 380 Microbiology Past 72 Hours 02/28/19 02:22 Streptococcus pneumoniae Antigen (M - Final Urine, Clean Catch 02/28/19 02:22 Legionella Antigen - Final Urine, Clean Catch Laboratory Tests Past 24 Hrs 02/28/19 03/01/19 03/01/19 Unknown 06:10 06:10 WBC 11.5 H RBC 4.05 L Hgb 10.5 L Hct 34.9 L MCV 86.2 MCH 25.9 L MCHC 30.1 L RDW 15.9 H RDW Differential 49.3 H Plt Count 240 MPV 11.3 Sodium 141 Potassium 3.3 L Chloride 102 Carbon Dioxide 30.0 Anion Gap 9 BUN 17 Creatinine 0.77 Estim Creat Clear Calc 58.48 Est GFR (MDRD) Af Amer 93 Est GFR (MDRD) Non-Af 77 BUN/Creatinine Ratio 22.1 H Glucose 118 H Calcium 9.2 Urine Color Yellow Urine Clarity Sl. Cloudy Urine pH 7.0 Ur Specific [place] 1.005 Urine Protein Negative Urine Glucose (UA) Normal Urine Ketones Negative Urine Occult Blood 10 H Urine Nitrite Negative Urine Bilirubin Negative Urine Urobilinogen Normal Ur Leukocyte Esterase 500 H Urine RBC 0-5 SEEN Urine WBC 10-25 SEEN Ur Squamous Epith Cells 5-10 SEEN Urine Bacteria RARE Urine Mucus 0 SEEN POC Glucose 03/01/19 03/01/19 03/01/19 11:25 06:39 02:40 POC Glucose 186 H 111 H 71 02/28/19 02/28/19 02/28/19 22:06 21:30 17:32 POC Glucose 106 68 L 127 H 02/28/19 02/28/19 16:50 11:54 POC Glucose 60 L 203 H Discharge Diet: Low fat/ Low Cholesterol, Carb Control Diet Discharge Activity: Return to Normal Activity Call your doctor if you observe: Shortness of breath, Dizziness, Fainting spells, Chest pain Home Medications: Medications to take at Discharge Albuterol Sulfate [Proair Hfa] 2 puff INHALATION BID 12/23/13 Insulin Lispro [Humalog KwikPen] 10 unit SC TIDCM 12/23/13 Acetaminophen [Tylenol] 325 mg PO PRN PRN 01/25/15 Nitroglycerin (INPATIENT USE) [Nitrostat] 0.4 mg SUBLINGUAL PRN PRN 01/25/15 Insulin Glargine,Hum.rec.anlog [T[place]jeo Solostar] 80 unit SQ DAILY 11/05/15 aspirin 81 mg tablet,delayed release 162 mg PO QDAY tab 03/31/18 atenolol 50 mg tablet 50 mg PO QDAY 03/31/18 ergocalciferol (vitamin D2) 50,000 unit capsule 1,000 unit PO QWEEK cap 03/31/18 lisinopril 40 mg tablet 40 mg PO QDAY #90 tab 07/26/18 atorvastatin 20 mg tablet 20 mg PO QDAY #30 tab 09/22/18 Sertraline HCl 100 mg PO DAILY 02/26/19 Furosemide [Lasix] 40 mg PO BID@1000,1800 #60 tablet 03/01/19 Isosorbide Mononitrate [Imdur] 30 mg PO DAILY #30 tablet 03/01/19 Potassium Chloride [K-Dur] 40 meq PO DAILY #60 tablet 03/01/19 Following Prescrptions Were Given to Patient: Furosemide [Lasix] 40 mg PO BID@1000,1800 #60 tablet Isosorbide Mononitrate [Imdur] 30 mg PO DAILY #30 tablet Potassium Chloride [K-Dur] 40 meq PO DAILY #60 tablet Primary Care Physician: Riley Roca Chi, MD [Primary Care Provider] - Please follow up with your Primary Care Physician in: 1 Week Please Follow Up With: Guicho Billy MD - May see ACCOUNTANT COST/PA When: 1-2 Weeks Disposition: Home with Home Health Minutes spent on discharge:: 35 Patient Condition:: Stable Medical Necessity - Tobacco Use Smoking Status: Never smoker Tobacco Use: Non-smoker Meaningful Use Info Meaningful Use Diagnoses (Choose all that apply): CHF - CHF CEDRICK/ARB ordered at discharge?: Yes Documented LVEF (%): 55 <Quinton Aragon - Last Filed: 03/01/19 15:25> Discharge Date and Diagnosis - Secondary Discharge Diagnosis Chronic Problems (Last Updated 04/19/18 @ 16:25 by Penelope Hughes) Obesity (BMI 30-39.9) (Chronic) Anxiety and depression (Chronic) PAD (peripheral artery disease) (Chronic) Atherosclerotic heart disease of [place] coronary artery without angina pectoris (Chronic) PTCA/stent to mid first Diagonal 12/21/03; PTCA/stent to mid Diagonal 07/02/07 Left bundle branch block (Chronic) Ischemic cardiomyopathy (Chronic) Anemia due to chronic blood loss (Chronic) Benign hypertension (Chronic) CAD (coronary artery disease) (Chronic) History of depression (Chronic) Type II diabetes mellitus (Chronic) Dyspnea (Chronic) HLD (hyperlipidemia) (Chronic) History of pulmonary embolus (PE) (Chronic) History of coronary artery stent placement (Chronic) PTCA/stent to mid first Diagonal 12/21/03; PTCA/stent to mid Diagonal 07/02/07 NSTEMI (non-ST elevated myocardial infarction) (Chronic) Hospital Course and Treatment Operations: None Procedures: 2-D Echocardiogram, Stress test Summary of Care Provided: Patient seen and examined independently. Data reviewed. I agree with the above note by the nurse practitioner. The patient is a 79 year old F presents with dyspnea. Patient was found to be in acute heart failure with a BNP of 501 and CHF noted on chest x-ray. Patient received IV Lasix is also transition over to oral Lasix and has done well. Patient did receive Imdur as well. Patient follow-up with cardiology as outpatient. Patient did undergo stress testing because of chest pain and that was unremarkable. [] - Physical Exam General: Alert, No apparent distress Neck: No Nodes, Thyroid Normal Size and Texture Lungs: Clear to auscultation, Normal air movement, No rhonchi, No wheeze Cardiovascular: Regular rate, Regular Rhythm, Normal S1, Normal S2, No murmurs Abdomen: Bowel Sounds Present, Soft, Non Tender, Non-Distended, No Hepato-splenomegaly Extremities: No edema, No Calf Tenderness Skin: No rashes, No breakdown Vital Signs Temp Pulse Resp BP Pulse Ox 37.1 C 67 16 161/54 H 91 03/01/19 08:45 03/01/19 13:34 03/01/19 13:34 03/01/19 08:45 03/01/19 12:23 Oxygen Flow Rate (L/min) 2 Oxygen Delivery Method Room Air Weight: 81.2 kg Body Mass Index (BMI) 37.3 Intake and Output for Last 24 Hours 02/27/19 02/28/19 03/01/19 23:59 23:59 23:59 Intake Total 1195 / 1195 600 / 600 Output Total 2450 / 2450 220 / 220 Balance -1255 / -1255 380 / 380 Microbiology Past 72 Hours 02/28/19 02:22 Streptococcus pneumoniae Antigen (M - Final Urine, Clean Catch 02/28/19 02:22 Legionella Antigen - Final Urine, Clean Catch Laboratory Tests Past 24 Hrs 02/28/19 03/01/19 03/01/19 Unknown 06:10 06:10 WBC 11.5 H RBC 4.05 L Hgb 10.5 L Hct 34.9 L MCV 86.2 MCH 25.9 L MCHC 30.1 L RDW 15.9 H RDW Differential 49.3 H Plt Count 240 MPV 11.3 Sodium 141 Potassium 3.3 L Chloride 102 Carbon Dioxide 30.0 Anion Gap 9 BUN 17 Creatinine 0.77 Estim Creat Clear Calc 58.48 Est GFR (MDRD) Af Amer 93 Est GFR (MDRD) Non-Af 77 BUN/Creatinine Ratio 22.1 H Glucose 118 H Calcium 9.2 Urine Color Yellow Urine Clarity Sl. Cloudy Urine pH 7.0 Ur Specific [place] 1.005 Urine Protein Negative Urine Glucose (UA) Normal Urine Ketones Negative Urine Occult Blood 10 H Urine Nitrite Negative Urine Bilirubin Negative Urine Urobilinogen Normal Ur Leukocyte Esterase 500 H Urine RBC 0-5 SEEN Urine WBC 10-25 SEEN Ur Squamous Epith Cells 5-10 SEEN Urine Bacteria RARE Urine Mucus 0 SEEN POC Glucose 03/01/19 03/01/19 03/01/19 11:25 06:39 02:40 POC Glucose 186 H 111 H 71 0502/28/19 02/28/19 22:06 21:30 17:32 POC Glucose 106 68 L 127 H 02/28/19 16:50 POC Glucose 60 L Discharge Diet: Low fat/ Low Cholesterol, Carb Control Diet Discharge Activity: Return to Normal Activity Call your doctor if you observe: Shortness of breath, Dizziness, Fainting spells, Chest pain Disposition: Home with Home Health Patient Condition:: Stable Medical Necessity - Tobacco Use Smoking Status: Never smoker Tobacco Use: Non-smoker Meaningful Use Info Meaningful Use Diagnoses (Choose all that apply): CHF - CHF CEDRICK/ARB ordered at discharge?: Yes Documented LVEF (%): 55 Code Visit Inpatient E&M: 80942 Disch Hosp
--- NOTE | 2019-03-01 11:46 | DS.PCM_ITS ---
Addendum entered and electronically signed by DAINA Gamble 03/01/19 11:59: Code Visit Patient had episode of hypoglycemia in the 60s X1. Patient reports she ate poorly yesterday following administration of long-acting insulin. Discharged on prior home insulin regimen, recommend patient continue close monitoring of glucose at home. Her insulin regimen may need adjusted by primary care provider if she has further episodes of hypoglycemia. Blood glucose at discharge 186. Original Note: <Brianna Mckeon - Last Filed: 03/01/19 11:57> Discharge Date and Diagnosis Date of Admission: 02/28/19 Date of Discharge: 03/01/19 - Primary Discharge Diagnosis Active and Suspected Problems (Last Updated 04/19/18 @ 16:25 by Penelope Hughes) 1. Acute diastolic CHF/prior history of systolic CHF/ischemic cardiomyopathy 2. CAD with history of stent placement, ACS ruled out 3. PAD 4. Hypertension 5. Hyperlipidemia 6. Type 2 diabetes mellitus 7. Anxiety/depression 8. Obesity 9. Recent fall with facial ecchymosis 10. Chronic normocytic anemia - Secondary Discharge Diagnosis Chronic Problems (Last Updated 04/19/18 @ 16:25 by Penelope Hughes) Obesity (BMI 30-39.9) (Chronic) Anxiety and depression (Chronic) PAD (peripheral artery disease) (Chronic) Atherosclerotic heart disease of [place] coronary artery without angina pectoris (Chronic) PTCA/stent to mid first Diagonal 12/21/03; PTCA/stent to mid Diagonal 07/02/07 Left bundle branch block (Chronic) Ischemic cardiomyopathy (Chronic) Anemia due to chronic blood loss (Chronic) Benign hypertension (Chronic) CAD (coronary artery disease) (Chronic) History of depression (Chronic) Type II diabetes mellitus (Chronic) Dyspnea (Chronic) HLD (hyperlipidemia) (Chronic) History of pulmonary embolus (PE) (Chronic) History of coronary artery stent placement (Chronic) PTCA/stent to mid first Diagonal 12/21/03; PTCA/stent to mid Diagonal 07/02/07 NSTEMI (non-ST elevated myocardial infarction) (Chronic) Hospital Course and Treatment Imaging Results: Diagnostic Data Chest X-Ray 02/28/19 07:00 IMPRESSION: The CHF has improved as compared to prior study. Minimal residual changes persist. Electronically Signed: Crow Avalos, at 8:59 EDT , Service support , Dr. Billy/Dr. Lu- Cardiology Operations: None Procedures: 2-D Echocardiogram, Stress test Summary of Care Provided: The patient is a 79 year old F admitted 02/28/2019 due to dyspnea. 1. Acute diastolic CHF/prior history of systolic CHF/ischemic cardiomyopathy- echocardiogram March 2018 with EF 55%. Repeat echocardiogram showed an EF of 55%, stage II diastolic dysfunction, mild mitral valve insufficiency, septal motion consistent with IVCD, mild tricuspid valve insufficiency. Cardiology following. Patient follows with Dr. Billy as outpatient. BNP 509. Chest x-ray on admission with interstitial pulmonary edema. Repeat chest x-ray shows improvement of CHF. Oxygen now stable on room air. Patient received IV Lasix during admission, discharged on oral Lasix 40 mg twice daily. Additionally started on Imdur 30 mg daily per cardiology. Pneumonia initially suspected on admission given leukocytosis and low-grade temp however repeat chest x-ray without infiltrate. Urine negative for strep and Legionella. Further antibiotics discontinued. Urinalysis with 10-25 WBC, 500 leukocyte. Patient asymptomatic. Culture was sent and will follow. Follow-up with primary care physician in 1 week. Follow-up with cardiology in 1 to 2 weeks. 2. CAD with history of stent placement-patient underwent stress test which was negative for ischemia. Continue aspirin, statin, beta-natividad, Imdur added. 3. PAD-follows with Dr. House. Continue aspirin, statin. 4. Hypertension-stable, continue home atenolol, lisinopril regimen. 5. Hyperlipidemia-continue statin. 6. Type 2 diabetes mellitus-continue home oral/insulin regimen. 7. Anxiety/depression-continue home sertraline regimen. 8. Obesity-encouraged diet and lifestyle modifications. 9. Recent fall with facial ecchymosis-reports she was seen following this at urgent care. Home health services at discharge. 10. Chronic normocytic anemia-stable. General: Alert, Oriented x3, Cooperative HEENT: Atraumatic, PERRLA, EOMI, Normocephalic Neck: Supple, No JVD, Negative Carotid Bruits Lungs: Diminished, clear to auscultation Cardiovascular: Regular rate, Regular Rhythm, Normal S1, Normal S2, No murmurs Abdomen: Bowel Sounds Present, Soft, Non Tender, Non-Distended Extremities: No clubbing, No cyanosis, No edema, Capillary Refill Less than 3 Seconds Skin: No rashes, No breakdown, - - Extensive ecchymosis face secondary to recent fall. Musculoskeletal: No Tenderness to Palpation of Joints or Extremities Neurological: Cranial nerves II-XII grossly intact, Neuro grossly intact Psych/Mental Status: Normal Affect, Appropriate Patient seen and examined prior to discharge. Physical assessment as noted above. Patient is stable for discharge with follow up recommendations as noted above. This patient was seen by DAINA Gamble under the supervision of Dr. Aragon. - Physical Exam Vital Signs Temp Pulse Resp BP Pulse Ox 98.8 F 63 18 161/54 H 92 03/01/19 08:45 03/01/19 08:45 03/01/19 08:45 03/01/19 08:45 03/01/19 08:45 Oxygen Flow Rate (L/min) 2 Oxygen Delivery Method Room Air Weight: 179 lb 0.246 oz Body Mass Index (BMI) 37.3 Intake and Output for Last 24 Hours 02/27/19 02/28/19 03/01/19 23:59 23:59 23:59 Intake Total 1195 / 1195 600 / 600 Output Total 2450 / 2450 220 / 220 Balance -1255 / -1255 380 / 380 Microbiology Past 72 Hours 02/28/19 02:22 Streptococcus pneumoniae Antigen (M - Final Urine, Clean Catch 02/28/19 02:22 Legionella Antigen - Final Urine, Clean Catch Laboratory Tests Past 24 Hrs 02/28/19 03/01/19 03/01/19 Unknown 06:10 06:10 WBC 11.5 H RBC 4.05 L Hgb 10.5 L Hct 34.9 L MCV 86.2 MCH 25.9 L MCHC 30.1 L RDW 15.9 H RDW Differential 49.3 H Plt Count 240 MPV 11.3 Sodium 141 Potassium 3.3 L Chloride 102 Carbon Dioxide 30.0 Anion Gap 9 BUN 17 Creatinine 0.77 Estim Creat Clear Calc 58.48 Est GFR (MDRD) Af Amer 93 Est GFR (MDRD) Non-Af 77 BUN/Creatinine Ratio 22.1 H Glucose 118 H Calcium 9.2 Urine Color Yellow Urine Clarity Sl. Cloudy Urine pH 7.0 Ur Specific [place] 1.005 Urine Protein Negative Urine Glucose (UA) Normal Urine Ketones Negative Urine Occult Blood 10 H Urine Nitrite Negative Urine Bilirubin Negative Urine Urobilinogen Normal Ur Leukocyte Esterase 500 H Urine RBC 0-5 SEEN Urine WBC 10-25 SEEN Ur Squamous Epith Cells 5-10 SEEN Urine Bacteria RARE Urine Mucus 0 SEEN POC Glucose 03/01/19 03/01/19 03/01/19 11:25 06:39 02:40 POC Glucose 186 H 111 H 71 02/28/19 02/28/19 02/28/19 22:06 21:30 17:32 POC Glucose 106 68 L 127 H 02/28/19 02/28/19 16:50 11:54 POC Glucose 60 L 203 H Discharge Diet: Low fat/ Low Cholesterol, Carb Control Diet Discharge Activity: Return to Normal Activity Call your doctor if you observe: Shortness of breath, Dizziness, Fainting spells, Chest pain Home Medications: Medications to take at Discharge Albuterol Sulfate [Proair Hfa] 2 puff INHALATION BID 12/23/13 Insulin Lispro [Humalog KwikPen] 10 unit SC TIDCM 12/23/13 Acetaminophen [Tylenol] 325 mg PO PRN PRN 01/25/15 Nitroglycerin (INPATIENT USE) [Nitrostat] 0.4 mg SUBLINGUAL PRN PRN 01/25/15 Insulin Glargine,Hum.rec.anlog [Toujeo Solostar] 80 unit SQ DAILY 11/05/15 aspirin 81 mg tablet,delayed release 162 mg PO QDAY tab 03/31/18 atenolol 50 mg tablet 50 mg PO QDAY 03/31/18 ergocalciferol (vitamin D2) 50,000 unit capsule 1,000 unit PO QWEEK cap 03/31/18 lisinopril 40 mg tablet 40 mg PO QDAY #90 tab 07/26/18 atorvastatin 20 mg tablet 20 mg PO QDAY #30 tab 09/22/18 Sertraline HCl 100 mg PO DAILY 02/26/19 Furosemide [Lasix] 40 mg PO BID@1000,1800 #60 tablet 03/01/19 Isosorbide Mononitrate [Imdur] 30 mg PO DAILY #30 tablet 03/01/19 Potassium Chloride [K-Dur] 40 meq PO DAILY #60 tablet 03/01/19 Following Prescrptions Were Given to Patient: Furosemide [Lasix] 40 mg PO BID@1000,1800 #60 tablet Isosorbide Mononitrate [Imdur] 30 mg PO DAILY #30 tablet Potassium Chloride [K-Dur] 40 meq PO DAILY #60 tablet Primary Care Physician: Riley Roca Chi, MD [Primary Care Provider] - Please follow up with your Primary Care Physician in: 1 Week Please Follow Up With: Guicho Billy MD - May see [employer]/PA When: 1-2 Weeks Disposition: Home with Home Health Minutes spent on discharge:: 35 Patient Condition:: Stable Medical Necessity - Tobacco Use Smoking Status: Never smoker Tobacco Use: Non-smoker Meaningful Use Info Meaningful Use Diagnoses (Choose all that apply): CHF - CHF CEDRICK/ARB ordered at discharge?: Yes Documented LVEF (%): 55 <Quinton Aragon - Last Filed: 03/01/19 15:25> Discharge Date and Diagnosis - Secondary Discharge Diagnosis Chronic Problems (Last Updated 04/19/18 @ 16:25 by Penelope Hughes) Obesity (BMI 30-39.9) (Chronic) Anxiety and depression (Chronic) PAD (peripheral artery disease) (Chronic) Atherosclerotic heart disease of [place] coronary artery without angina pectoris (Chronic) PTCA/stent to mid first Diagonal 12/21/03; PTCA/stent to mid Diagonal 07/02/07 Left bundle branch block (Chronic) Ischemic cardiomyopathy (Chronic) Anemia due to chronic blood loss (Chronic) Benign hypertension (Chronic) CAD (coronary artery disease) (Chronic) History of depression (Chronic) Type II diabetes mellitus (Chronic) Dyspnea (Chronic) HLD (hyperlipidemia) (Chronic) History of pulmonary embolus (PE) (Chronic) History of coronary artery stent placement (Chronic) PTCA/stent to mid first Diagonal 12/21/03; PTCA/stent to mid Diagonal 07/02/07 NSTEMI (non-ST elevated myocardial infarction) (Chronic) Hospital Course and Treatment Operations: None Procedures: 2-D Echocardiogram, Stress test Summary of Care Provided: Patient seen and examined independently. Data reviewed. I agree with the above note by the nurse practitioner. The patient is a 79 year old F presents with dyspnea. Patient was found to be in acute heart failure with a BNP of 501 and CHF noted on chest x-ray. Patient received IV Lasix is also transition over to oral Lasix and has done well. Patient did receive Imdur as well. Patient follow-up with cardiology as outpatient. Patient did undergo stress testing because of chest pain and that was unremarkable. [] - Physical Exam General: Alert, No apparent distress Neck: No Nodes, Thyroid Normal Size and Texture Lungs: Clear to auscultation, Normal air movement, No rhonchi, No wheeze Cardiovascular: Regular rate, Regular Rhythm, Normal S1, Normal S2, No murmurs Abdomen: Bowel Sounds Present, Soft, Non Tender, Non-Distended, No Hepato- splenomegaly Extremities: No edema, No Calf Tenderness Skin: No rashes, No breakdown Vital Signs Temp Pulse Resp BP Pulse Ox 37.1 C 67 16 161/54 H 91 03/01/19 08:45 03/01/19 13:34 03/01/19 13:34 03/01/19 08:45 03/01/19 12:23 Oxygen Flow Rate (L/min) 2 Oxygen Delivery Method Room Air Weight: 81.2 kg Body Mass Index (BMI) 37.3 Intake and Output for Last 24 Hours 02/27/19 02/28/19 03/01/19 23:59 23:59 23:59 Intake Total 1195 / 1195 600 / 600 Output Total 2450 / 2450 220 / 220 Balance -1255 / -1255 380 / 380 Microbiology Past 72 Hours 02/28/19 02:22 Streptococcus pneumoniae Antigen (M - Final Urine, Clean Catch 02/28/19 02:22 Legionella Antigen - Final Urine, Clean Catch Laboratory Tests Past 24 Hrs 02/28/19 03/01/19 03/01/19 Unknown 06:10 06:10 WBC 11.5 H RBC 4.05 L Hgb 10.5 L Hct 34.9 L MCV 86.2 MCH 25.9 L MCHC 30.1 L RDW 15.9 H RDW Differential 49.3 H Plt Count 240 MPV 11.3 Sodium 141 Potassium 3.3 L Chloride 102 Carbon Dioxide 30.0 Anion Gap 9 BUN 17 Creatinine 0.77 Estim Creat Clear Calc 58.48 Est GFR (MDRD) Af Amer 93 Est GFR (MDRD) Non-Af 77 BUN/Creatinine Ratio 22.1 H Glucose 118 H Calcium 9.2 Urine Color Yellow Urine Clarity Sl. Cloudy Urine pH 7.0 Ur Specific [place] 1.005 Urine Protein Negative Urine Glucose (UA) Normal Urine Ketones Negative Urine Occult Blood 10 H Urine Nitrite Negative Urine Bilirubin Negative Urine Urobilinogen Normal Ur Leukocyte Esterase 500 H Urine RBC 0-5 SEEN Urine WBC 10-25 SEEN Ur Squamous Epith Cells 5-10 SEEN Urine Bacteria RARE Urine Mucus 0 SEEN POC Glucose 03/01/19 03/01/19 03/01/19 11:25 06:39 02:40 POC Glucose 186 H 111 H 71 02/28/19 02/28/19 02/28/19 22:06 21:30 17:32 POC Glucose 106 68 L 127 H 02/28/19 16:50 POC Glucose 60 L Discharge Diet: Low fat/ Low Cholesterol, Carb Control Diet Discharge Activity: Return to Normal Activity Call your doctor if you observe: Shortness of breath, Dizziness, Fainting spells, Chest pain Disposition: Home with Home Health Patient Condition:: Stable Medical Necessity - Tobacco Use Smoking Status: Never smoker Tobacco Use: Non-smoker Meaningful Use Info Meaningful Use Diagnoses (Choose all that apply): CHF - CHF CEDRICK/ARB ordered at discharge?: Yes Documented LVEF (%): 55 Code Visit Inpatient E&M: [id number] Disch Hosp
--- NOTE | 2019-03-02 12:46 | CASEMGMT ---
JUDSON ANDERSON DC PHONE CALL DC DATE: 02/28/19 DC Disposition: Home LACE/STRATA: 07/21 Call to patient at home. Pt remembered speaking with CM in hospital on 02/28/19. Pt states she is doing well, has her medical alert button on and her cell phone in her pocket. Pt also states she had her daughter pick up attendant the 4 prong cane from [employer] and it was covered under her insurance. Pt states she does not have questions re: prescriptions or instructions. Family will provide transportation to f/u appointments. No care improvement suggestions given. Yessica JORDANN RN ACM
== END 2019-03-01 16:40 | disposition home or self-care (01) | DRG 291 ==
LOC: ED 02-28 00:47 → PCU 02-28 01:29
PROVIDERS: Nurse Practitioner Family; Admitting Provider Family Medicine; Emergency Provider Emergency Medicine; Family Provider Family Medicine Geriatric Medicine; PCP Family Medicine Geriatric Medicine
DX: I11.0 Hypertensive heart disease with heart failure (principal); I50.31 Acute diastolic (congestive) heart failure; E78.5 Hyperlipidemia, unspecified; I25.10 Atherosclerotic heart disease of native coronary artery without angina pectoris; E66.9 Obesity, unspecified; E11.51 Type 2 diabetes mellitus with diabetic peripheral angiopathy without gangrene; Z68.37 Body mass index [BMI] 37.0-37.9, adult; I25.5 Ischemic cardiomyopathy; F32.9 Major depressive disorder, single episode, unspecified; F41.9 Anxiety disorder, unspecified; W19.XXXD Unspecified fall, subsequent encounter; Z79.4 Long term (current) use of insulin; Z86.711 Personal history of pulmonary embolism; I25.2 Old myocardial infarction; Z95.5 Presence of coronary angioplasty implant and graft; S00.83XD Contusion of other part of head, subsequent encounter; I44.7 Left bundle-branch block, unspecified; Z79.899 Other long term (current) drug therapy; D64.9 Anemia, unspecified
CPT/HCPCS: 36415; 36600; 70450; 71045; 71046; 78452; 80048; 80061; 81001; 82803; 82962; 83735; 83880; 84443; 84484; 85025; 85027; 87086; 87449; 93005; 93017; 93306; 94640; 94667; 97161; 97166; 97530; 97535; 99282; 99285; A9500; J7040; Q9957; A4216; J1940; J2785

== ENCOUNTER → 2019-03-02 17:04 | Outpatient (CLI) | payer MEDICARE, SELFPAY ==
[2019-02-28 02:10] VITALS: BMI 37.3
[2019-03-02 17:47] LABS: Absolute Lymphocyte Count 1.91 X10^3/ul (0.83-4.51); Absolute Neutrophil Count 10.5 X10^3/uL (2.0-7.7); Basophil# 0.04 X10^3/uL; Basophil% 0.3 % (0-1); Eosinophil# 0.33 X10^3/uL; Eosinophils% 2.4 % (0-5); Hematocrit 34.3 % (37-47); Hemoglobin 10.5 g/dl (12.0-15.0); Lymphocyte # 1.91 X10^3/ul (4.0); Mean Corp Hgb Conc 30.6 g/gl (32-36); Mean Corpuscular Hgb 26.6 pg (27.0-32.0); Mean Corpuscular Volume 86.8 fL (81-99); Mean Platelet Vol. 11.2 fl (6.2-12.0); Monocyte# 0.84 X10^3/uL; Monocyte% 6.2 % (0-10); Neutrophil # 10.49 X10^3/uL (2.7-7.7); Neutrophil % 76.8 % (47-70); Platelet Count 319 K/mm3 (150-450); RBC Distribution Width CV 15.8 % (11.6-14.6); RBC Distribution Width SD 50.8 fl (35.1-43.9); Red Blood Count 3.95 M/mm3 (4.2-5.4); White Blood Count 13.7 K/mm3 (4.4-11.0)
[2019-03-02 17:48] LABS: POSITIVE COUNT NO; POSITIVE DIFFERENTIAL NO; POSITIVE MORPHOLOGY NO
[2019-03-02 18:05] LABS: BNP,B-Type NATRIURETIC PEPTIDE 129.7 pg/mL (0-100)
[2019-03-02 18:08] LABS: ALB/GLOB Ratio 0.9 RATIO (0.9-2.4); AST(SGOT) 14 U/L (15-37); Alanine Aminotransfer ALT/SGPT 16 U/L (13-56); Albumin, Serum 3.4 g/dL (3.2-5.0); Alkaline Phosphatase 67 U/L (45-117); Anion Gap 7 (5-15); BUN 29 mg/dL (7-18); BUN/Creat Ratio 28.2 RATIO (10-20); Calcium,Total 8.7 mg/dL (8.5-10.1); Chloride 102 mmol/L (98-107); Creatinine, Serum 1.03 mg/dL (0.55-1.02); EST Glomerular Filtration Rate 55 mL/min (>60); Est Glom Filt Rate - Afr Amer 66 mL/min (>60); Globulin 3.7 g/dL (2.2-4.2); Glucose 326 mg/dL (74-106); Potassium 4.7 mmol/L (3.5-5.1); Protein, Total 7.1 g/dL (6.4-8.2); Sodium Level 135 mmol/L (136-145)
== END ==
PROVIDERS: Family Provider Family Medicine Geriatric Medicine; PCP Family Medicine Geriatric Medicine; Referring Provider Family Medicine Geriatric Medicine; Visit Provider Family Medicine Geriatric Medicine
DX: R06.02 Shortness of breath (principal)
CPT/HCPCS: 36415; 80053; 83880; 85025

== ENCOUNTER → 2019-03-15 13:40 | Outpatient (CLI) | payer MEDICARE, SELFPAY ==
[2019-03-11 09:46] VITALS: BMI 35.5
[2019-03-15 17:23] LABS: Absolute Lymphocyte Count 1.85 X10^3/ul (0.83-4.51); Absolute Neutrophil Count 7.6 X10^3/uL (2.0-7.7); Basophil# 0.03 X10^3/uL; Basophil% 0.3 % (0-1); Eosinophil# 0.27 X10^3/uL; Eosinophils% 2.6 % (0-5); Hemoglobin 9.9 g/dl (12.0-15.0); Lymphocyte # 1.85 X10^3/ul (4.0); Lymphocyte % 17.8 % (19-41); Mean Corpuscular Volume 86.6 fL (81-99); Mean Platelet Vol. 11.5 fl (6.2-12.0); Monocyte# 0.63 X10^3/uL; Monocyte% 6.1 % (0-10); Neutrophil # 7.56 X10^3/uL (2.7-7.7); Neutrophil % 72.7 % (47-70); Platelet Count 281 K/mm3 (150-450); RBC Distribution Width CV 15.8 % (11.6-14.6); RBC Distribution Width SD 48.8 fl (35.1-43.9); Red Blood Count 3.81 M/mm3 (4.2-5.4); White Blood Count 10.4 K/mm3 (4.4-11.0)
[2019-03-15 17:29] LABS: POSITIVE COUNT NO; POSITIVE DIFFERENTIAL NO; POSITIVE MORPHOLOGY NO
[2019-03-15 17:59] LABS: AST(SGOT) 19 U/L (15-37); Alanine Aminotransfer ALT/SGPT 24 U/L (13-56); Albumin, Serum 3.4 g/dL (3.2-5.0); Alkaline Phosphatase 67 U/L (45-117); Anion Gap 8 (5-15); BUN 14 mg/dL (7-18); BUN/Creat Ratio 18.7 RATIO (10-20); Calcium,Total 8.7 mg/dL (8.5-10.1); Chloride 106 mmol/L (98-107); Creatinine, Serum 0.75 mg/dL (0.55-1.02); EST Glomerular Filtration Rate 80 mL/min (>60); Est Glom Filt Rate - Afr Amer 96 mL/min (>60); Globulin 3.4 g/dL (2.2-4.2); Glucose 112 mg/dL (74-106); Potassium 4.3 mmol/L (3.5-5.1); Protein, Total 6.8 g/dL (6.4-8.2); Sodium Level 140 mmol/L (136-145); Uric Acid 7.9 mg/dL (2.6-6.0)
[2019-03-15 21:44] LABS: Vitamin D,25 Hydroxy 21.1 ng/mL (29.95-100.01)
== END ==
PROVIDERS: Family Provider Family Medicine Geriatric Medicine; PCP Family Medicine Geriatric Medicine; Visit Provider Family Medicine Geriatric Medicine
DX: E55.9 Vitamin D deficiency, unspecified (principal); E11.9 Type 2 diabetes mellitus without complications; I10 Essential (primary) hypertension; M10.9 Gout, unspecified
CPT/HCPCS: 36415; 80053; 82306; 84443; 84550; 85025

== ENCOUNTER 2019-04-19 05:55 | Inpatient (IN) | payer MEDICARE, SELFPAY ==
[2019-03-11 09:46] VITALS: BMI 35.5
[2019-04-19] VITALS (12 sets, daily range): BP systolic 133–200; BP diastolic 40–76; PULSE 50–122; RESP 12–20; TEMP 36.1–36.6; O2SAT 96–98; BMI 38.2; BMI 35.6
--- NOTE | 2019-04-19 06:22 | EKG12_ITS ---
Test Reason : SOB Blood Pressure : / mmHG Vent. Rate : 064 BPM Atrial Rate : 064 BPM P-R Int : 176 ms QRS Dur : 142 ms QT Int : 488 ms P-R-T Axes : 064 -36 113 degrees QTc Int : 503 ms Normal sinus rhythm Left axis deviation Left bundle branch block Abnormal ECG Confirmed by JOSSY PEARSON, SADIE ([id number]), editor book MANUELA DORADO ([id number]) on 04/20/2019 12:26:23 PM Referred By: GIA Confirmed By:SADIE FENTON MD
--- NOTE | 2019-04-19 06:22 | RAD_ITS ---
STUDY: X-RAY CHEST REASON FOR EXAM: Female, 79 years old. Shortness of breath. History of hypertension, DE, and placement of 2 stents. TECHNIQUE: Frontal and lateral views of the chest. COMPARISON: 02/28/2019. FINDINGS: There is interstitial prominence in the lung dawson, suggesting mild CHF. There is no demonstrated pleural abnormality. There is mild cardiac enlargement. Normal mediastinum and twila. Normal visualized pulmonary arteries. There is atherosclerotic calcification of the aortic arch with tortuosity. There are degenerative changes of the visualized thoracic spine. There are no visualized acute osseous abnormalities. There is no demonstrated abnormality of the visualized soft tissue structures of the upper abdomen. RAD/Chest PA and Lateral IMPRESSION: Mild cardiomegaly, with mild CHF. Electronically Signed: John Costa MD at 7:39 EDT , Service support ,
[2019-04-19] MEDS: hydrALAZINE 20 MG/ML Vial IV (06:29)
[2019-04-19] MEDS: Acetaminophen 325 MG Tablet 650 MG PO ×2 (06:29→17:54)
[2019-04-19 07:02] LABS: Absolute Lymphocyte Count 2.05 X10^3/ul (0.83-4.51); Absolute Neutrophil Count 5.8 X10^3/uL (2.0-7.7); Basophil# 0.03 X10^3/uL; Basophil% 0.3 % (0-1); Eosinophil# 0.51 X10^3/uL; Eosinophils% 5.6 % (0-5); Hematocrit 32.1 % (37-47); Hemoglobin 9.7 g/dl (12.0-15.0); Lymphocyte # 2.05 X10^3/ul (4.0); Lymphocyte % 22.4 % (19-41); Mean Corp Hgb Conc 30.2 g/gl (32-36); Mean Corpuscular Hgb 25.8 pg (27.0-32.0); Mean Corpuscular Volume 85.4 fL (81-99); Mean Platelet Vol. 11.4 fl (6.2-12.0); Monocyte# 0.69 X10^3/uL; Monocyte% 7.5 % (0-10); Neutrophil # 5.84 X10^3/uL (2.7-7.7); Neutrophil % 63.8 % (47-70); Platelet Count 240 K/mm3 (150-450); RBC Distribution Width CV 16.5 % (11.6-14.6); RBC Distribution Width SD 50.1 fl (35.1-43.9); Red Blood Count 3.76 M/mm3 (4.2-5.4); White Blood Count 9.2 K/mm3 (4.4-11.0)
[2019-04-19 07:06] LABS: POSITIVE COUNT NO; POSITIVE DIFFERENTIAL NO; POSITIVE MORPHOLOGY NO
[2019-04-19 07:10] LABS: Anion Gap 7 (5-15); BUN 19 mg/dL (7-18); BUN/Creat Ratio 25.4 RATIO (10-20); Calcium,Total 8.8 mg/dL (8.5-10.1); Chloride 105 mmol/L (98-107); Creatinine, Serum 0.75 mg/dL (0.55-1.02); EST Glomerular Filtration Rate 80 mL/min (>60); Est Glom Filt Rate - Afr Amer 96 mL/min (>60); Estimated Creatinine Clearance 32.77 ml/min; Glucose 152 mg/dL (74-106); Sodium Level 141 mmol/L (136-145)
[2019-04-19 07:51] LABS: Bedside Glucose 181 mg/dL (70-110)
--- NOTE | 2019-04-19 07:53 | ED.DCSUM_ITS ---
- ER Visit Summary Date of Service: 04/19/19 Chief Complaint: Headache and shortness of breath History of Present Illness: The patient is a 79 F who went to bed last night feeling short of breath and dizzy. She woke this morning with a headache worsening shortness of breath and more dizzy. States she took a nitroglycerin without relief. Previous medical history includes diabetes hypertension high cholesterol coronary artery disease prior pulmonary embolism and peripheral artery disease. Has not had any of her morning medications. She has a history of diastolic heart failure. Physical Examination: Blood pressure 206/73 otherwise vital signs are stable Gen: Well-nourished well-developed Head: Normocephalic atraumatic Eyes: Perrl EOMI ENT: TMs clear no rhinorrhea moist mucous membranes Neck: Supple no lymphadenopathy no JVD nontender CVS: Regular rate rhythm no murmurs normal S1-S2 Respiratory: No distress clear to auscultation bilaterally chest nontender Abdomen: Soft nontender nondistended normal bowel sounds no masses Back: Nontender Extremity: Nontender no edema Skin: Normal color no rash Neuro: alert orientated ?3 CN II-XII intact normal strength sensation Psych: Normal affect normal mood Test Results: EKG is a sinus rhythm with a left bundle branch block that is old. Basic labs are negative. Chest x-ray shows mild heart failure. Emergency Department Course and Treatment: Patient received hydralazine and her blood pressure is decreasing I am going to order her morning medications of atenolol isosorbide and lisinopril as well as Lasix. Formal head CT will be obtained and will be checked by daytime physician. Our plan is admission to the hospital. Hospitalist has been contacted. Impression: 1. Hypertensive urgency 2. Congestive heart failure This note was generated with [employer] dictation software. It may contain incorrect words, spelling, and punctuation that were not noted in review of the chart prior to signing ED Disposition - Plan for ED Patient: Referrals: Riley Roca Chi, MD [Primary Care Provider] -
--- NOTE | 2019-04-19 07:53 | CT_ITS ---
STUDY: CT BRAIN WITHOUT CONTRAST REASON FOR EXAM: Female, 79 years old. Headaches. Dizziness. Weakness. RADIATION DOSAGE (If Supplied By Facility): CTDIvol = ( 44.99 ) mGy, DLP = ( 796.11 ) mGycm TECHNIQUE: Transaxial CT imaging of the brain was performed without administration of intravenous contrast material. Individualized dose optimization techniques were used for this CT. COMPARISON: Comparison is made with prior study dated February 26, 2019. FINDINGS: Normal soft tissue structures. There is hyperostosis frontalis internus. Normal size ventricles and extra-axial spaces for the patient's age. Normal white matter tracts of the cerebral hemispheres. Normal basal ganglia and thalami. Normal brainstem. Normal cerebellum. There is no intracranial hemorrhage. There are no findings of an acute ischemic infarction. Atherosclerotic calcification of the vertebral arteries and cavernous portions of the internal carotid arteries bilaterally. Normal visualized paranasal sinuses. CT/Brain/Head without Contrast IMPRESSION: No acute abnormality is seen. Stable examination. Electronically Signed: Crow Avalos, at 8:24 EDT , Service support ,
[2019-04-19 08:37] LABS: BNP,B-Type NATRIURETIC PEPTIDE 282.3 pg/mL (0-100)
[2019-04-19] MEDS: Atenolol 50 MG Tablet PO ×2 (09:13→12:41)
[2019-04-19] MEDS: Lisinopril 40 MG Tablet PO ×2 (09:13→12:41)
[2019-04-19] MEDS: Isosorbide Mononitrate 30 MG Tablet PO ×2 (09:13→12:38)
[2019-04-19] MEDS: Furosemide 100 MG/10 ML Vial 60 MG IV (09:13)
--- NOTE | 2019-04-19 10:05 | HP.PCM_ITS ---
Problem List (1) Acute CHF (congestive heart failure) Status: Acute Qualifiers: Heart failure type: diastolic Qualified Code(s): I50.31 - Acute diastolic (congestive) heart failure (2) Obesity (BMI 30-39.9) Status: Chronic (3) Anxiety and depression Status: Chronic (4) Pneumonia Status: Resolved Qualifiers: (5) PAD (peripheral artery disease) Status: Chronic (6) History of carpal tunnel release Status: Resolved (7) Hx of knee surgery Status: Resolved (8) H/O: hysterectomy Status: Resolved (9) Hx of cholecystectomy Status: Resolved (10) Atherosclerotic heart disease of [place] coronary artery without angina pectoris Status: Chronic Qualifiers: Comment: PTCA/stent to mid first Diagonal 12/21/03; PTCA/stent to mid Diagonal 07/02/07 (11) Left bundle branch block Status: Chronic (12) care home use of drug Status: Chronic (13) Ischemic cardiomyopathy Status: Chronic Comment: EF in February 2019 is 55% with stage II diastolic dysfunction. (14) Anemia due to chronic blood loss Status: Chronic (15) CAD (coronary artery disease) Status: Chronic Qualifiers: Coronary Disease-Associated Artery/Lesion type: [place] artery (16) Type II diabetes mellitus Status: Chronic (17) HLD (hyperlipidemia) Status: Chronic Qualifiers: (18) History of pulmonary embolus (PE) Status: Chronic (19) History of coronary artery stent placement Status: Chronic Comment: PTCA/stent to mid first Diagonal 12/21/03; PTCA/stent to mid Diagonal 07/02/07 (20) NSTEMI (non-ST elevated myocardial infarction) Status: Chronic (21) Hypertensive emergency Status: Acute Comment: With acute diastolic congestive heart failure (22) Grade II diastolic dysfunction Status: Chronic History of Present Illness Date of Admission: 04/19/19 Chief Complaint: SOB, STATON and lightheadedness The patient is a 79 year old F with a past medical history of hypertension, hyperlipidemia, diabetes mellitus type 2, coronary artery disease with history of PTCA/CASA in the past, chronic renal failure stage II, chronic anemia, obesity, stage II diastolic dysfunction, peripheral vascular disease, left bundle branch block and history of pulmonary embolus who presented to the ED at [facility] on 04/19/2019 complaining of sudden onset of shortness of breath, headache and lightheadedness when going to bed the preceding evening. She denied chest pain, pressure or heaviness. She denied palpitations. She denied missing any of her medications recently and stated there have been no recent additions to her drug formulary. She is complaining of swelling in her right leg recently and pain in the calf. Vital signs at presentation to the emergency department are temperature 97, pulse rate 72, blood pressure 200/70, respiratory rate 20 and she was 96 to 97% saturated on room air. White blood cell count and differential are unremarkable. Hemoglobin is 9.7 which is within her baseline. MCV is 85.4 and the RDW is increased at 16.5. Platelets are within normal limits. BMP was unremarkable with the exception of an elevated BUN at 19 with a creatinine of 0.75 and a BUN/creatinine ratio of 25.4. Random blood sugar was 152. LFTs are unremarkable. Troponin was less than 0.015. TSH is normal at 0.45. Chest x-ray was consistent with pulmonary edema. A noncontrasted CT brain was negative. EKG shows normal sinus rhythm with left bundle branch block. She was admitted to [facility] in February of 2019 for acute diastolic CHF and at that time admitted to not taking Lasix as instructed. She was admitted to a monitored bed on PCU and restarted on her home medications. PRN hydralazine was ordered for blood pressure control. She was started on intravenous Lasix 40 mg IV twice daily. Serial cardiac enzymes were ordered. Stress test in February 2019 was negative. Echocardiogram in February 2019 showed stage I I diastolic dysfunction with a left ventricular ejection fraction of 55%. The left atrium was mildly enlarged. Septal motion was consistent with intraventricular conduction delay. There was no significant valvular heart disease. There was mild left ventricular hypertrophy. Past Medical History Past Medical History (Chronic Problems): Chronic Problems (Last Updated 03/11/19 @ 11:25 by NADIRA Daniels) Grade II diastolic dysfunction (Chronic) Obesity (BMI 30-39.9) (Chronic) Anxiety and depression (Chronic) PAD (peripheral artery disease) (Chronic) Atherosclerotic heart disease of [place] coronary artery without angina pectoris (Chronic) PTCA/stent to mid first Diagonal 12/21/03; PTCA/stent to mid Diagonal 07/02/07 Left bundle branch block (Chronic) community midwife use of drug (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 Anemia due to chronic blood loss (Chronic) CAD (coronary artery disease) (Chronic) Type II diabetes mellitus (Chronic) HLD (hyperlipidemia) (Chronic) History of pulmonary embolus (PE) (Chronic) History of coronary artery stent placement (Chronic) PTCA/stent to mid first Diagonal 12/21/03; PTCA/stent to mid Diagonal 07/02/07 NSTEMI (non-ST elevated myocardial infarction) (Chronic) Medical History: Medical History (Last Reviewed 04/19/19 @ 10:27 by Bharati Eldridge DO) PAD (peripheral artery disease) (Chronic) I73.9 Atherosclerotic heart disease of [place] coronary artery without angina pectoris (Chronic) I25.10 PTCA/stent to mid first Diagonal 12/21/03; PTCA/stent to mid Diagonal 07/02/07 Left bundle branch block (Chronic) I44.7 community midwife use of drug (Chronic) Z79.899 Ischemic cardiomyopathy (Chronic) I25.5 EF in February 2019 is 55% with stage II diastolic dysfunction. Anemia due to chronic blood loss (Chronic) D50.0 CAD (coronary artery disease) (Chronic) I25.10 Type II diabetes mellitus (Chronic) E11.9 HLD (hyperlipidemia) (Chronic) E78.5 History of pulmonary embolus (PE) (Chronic) Z86.711 NSTEMI (non-ST elevated myocardial infarction) (Chronic) I21.4 Anemia D64.9 Arthritis M19.90 Cancer C80.1 Diabetes E11.9 Intermittent claudication I73.9 Migraine G43.909 HTN (hypertension) I10 Acute on chronic combined systolic and diastolic CHF (congestive heart failure) (Resolved) I50.43 Acute on chronic diastolic heart failure (Resolved) I50.33 Bronchitis (Resolved) J40 Chest pain R07.9 Cough (Resolved) R05 Edema R60.9 H/O: hysterectomy (Resolved) Z90.710 SOB (shortness of breath) R06.02 Heart disease I51.9 Allergies latex Allergy (Verified 04/19/19 05:57) Rash Home Medications: Ambulatory Orders Medication Instructions Recorded Albuterol Sulfate [Proair Hfa] 2 puff INHALATION BID 12/23/13 Insulin Lispro [Humalog KwikPen] 10 unit SC TIDCM 12/23/13 Nitroglycerin (INPATIENT USE) 0.4 mg SUBLINGUAL PRN PRN 01/25/15 [Nitrostat] Insulin Glargine,Hum.rec.anlog 80 unit SQ DAILY 11/05/15 [Toivanna Knutson] aspirin 81 mg tablet,delayed 162 mg PO QDAY tab 03/31/18 release lisinopril 40 mg tablet 40 mg PO QDAY #90 tab 07/26/18 atorvastatin 20 mg tablet 20 mg PO QDAY #30 tab 09/22/18 Sertraline HCl 100 mg PO DAILY 02/26/19 Potassium Chloride [K-Dur] 40 meq PO DAILY #60 tab 03/01/19 atenolol 50 mg tablet 50 mg PO QDAY #90 tab 03/11/19 furosemide 40 mg tablet 40 mg PO DAILY #90 tab 03/11/19 isosorbide mononitrate ER 30 mg 30 mg PO DAILY #90 tab 03/11/19 tablet,extended release 24 hr Surgical History: Surgical History (Last Reviewed 04/19/19 @ 10:27 by Bharati Eldridge DO) History of coronary artery stent placement (Chronic) Z95.5 PTCA/stent to mid first Diagonal 12/21/03; PTCA/stent to mid Diagonal 07/02/07 History of carpal tunnel release (Resolved) Z98.890 Hx of cholecystectomy (Resolved) Z90.49 Hx of knee surgery (Resolved) Z98.890 Surgical History: - - Carpal tunnel surgery, PCI, cholecystectomy, knee surgery, hysterectomy. 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 Lives: Alone Smoking Status: Never smoker Tobacco Use: Non-smoker Alcohol: None Drugs: None - *Family History Maternal Family History: Family History (Last Reviewed 04/19/19 @ 10:27 by Bharati Eldridge DO) Father CVA (cerebral vascular accident) Mother Heart disease CAD (coronary artery disease) Sister CAD (coronary artery disease) Daughter CAD (coronary artery disease) Myocardial infarction Daughter Diabetes History Items: High Cholesterol, Heart Disease, Hypertension Paternal Family History: Family History (Last Reviewed 04/19/19 @ 10:27 by Bharati Eldridge DO) Father CVA (cerebral vascular accident) Mother Heart disease CAD (coronary artery disease) Sister CAD (coronary artery disease) Daughter CAD (coronary artery disease) Myocardial infarction Daughter Diabetes History Items: Stroke Review of Systems Constitutional: Denies: Chills, Fever, Weight Change HEENT: Denies: Head Aches, Sinus Congestion, Sinus Drainage Cardiovascular: Reports: Light Headedness, Orthopnea. Denies: Chest Pain, Palpitations Respiratory: Reports: Shortness of Breath, Shortness of breath upon exertion, Wheezing. Denies: Cough, Shortness of breath at rest, Sputum production Gastrointestinal: Denies: Abdominal Pain, Nausea, Vomiting Genitourinary: Denies: Dysuria Musculoskeletal: Reports: Leg Pain - Right calf. Denies: Joint Pain, Joint Tenderness Skin: Denies: Rash, Wounds Neurological: Reports: Headaches. Denies: Focal weakness, Numbness, Tingling Psychiatric: Denies: Anxiety, Depression, Homicidal Ideations, Suicidal Ideations Hematologic/ Lymphatic: Reports: Hx of blood clot. Denies: Easy Bruising, Easy Bleeding VTE Information - Inpt Only VTE Present on Admission: No VTE Mechan Device Prophylaxis: SCD's, Knee High KARL Hose VTE Pharm Prophylaxis ordered?: Yes Patient Problems: Active and Suspected Problems (Last Updated 03/11/19 @ 11:25 by NADIRA Daniels) Acute CHF (congestive heart failure) (Acute) Hypertensive emergency (Acute) With acute diastolic congestive heart failure - Physical Exam General: Alert, Oriented x3, Cooperative, No apparent distress, Well developed, Well nourished HEENT: PERRLA, EOMI, Normocephalic, - - She has ptosis of the left upper lid Oral: No Gingival or Mucosal Lesions/ Ulcerations, Dry Mucosa Neck: No JVD, Negative Carotid Bruits, No Nodes, Trachea Midline Lungs: Rales, - - No conversational dyspnea, no accessory muscle use, not tachypneic at rest Cardiovascular: Regular rate, Regular Rhythm, Normal S1, Normal S2, Murmur - 2/6 second right intercostal space systolic, No rub noted, No Gallop Abdomen: Bowel Sounds Present, Soft, Non Tender, Non-Distended, Obese Extremities: No clubbing, No cyanosis, Edema - Of the ankles bilaterally, Peripheral Pulses Normal, - - Positive Homans sign and Rafi sign on the right distal lower extremity Skin: No rashes, No breakdown Musculoskeletal: No Muscle Wasting Neurological: Cranial nerves II-XII grossly intact, Neuro grossly intact Psych/Mental Status: Normal Affect, Appropriate Vital Signs Temp Pulse Resp BP Pulse Ox 97.0 F L 61 12 198/76 H 97 04/19/19 05:58 04/19/19 09:49 04/19/19 09:18 04/19/19 09:18 04/19/19 09:18 Oxygen Delivery Method Room Air Weight: 195 lb 8.8 oz Body Mass Index (BMI) 38.2 Finger Stick Blood Glucose 181 Laboratory Tests Past 24 Hrs 04/19/19 04/19/19 04/19/19 06:10 06:10 06:10 WBC 9.2 RBC 3.76 L Hgb 9.7 L Hct 32.1 L MCV 85.4 MCH 25.8 L MCHC 30.2 L RDW 16.5 H RDW Differential 50.1 H Plt Count 240 MPV 11.4 Immature Gran % (Auto) 0.400 Neut % (Auto) 63.8 Lymph % (Auto) 22.4 [place] % (Auto) 7.5 Eos % (Auto) 5.6 H Baso % (Auto) 0.3 Absolute Neuts (auto) 5.8 Absolute Lymphs (auto) 2.05 Total Counted Not Reportable Sodium 141 Potassium 4.0 Chloride 105 Carbon Dioxide 29.0 Anion Gap 7 BUN 19 H Creatinine 0.75 Estim Creat Clear Calc 32.77 Est GFR (MDRD) Af Amer 96 Est GFR (MDRD) Non-Af 80 BUN/Creatinine Ratio 25.4 H Glucose 152 H Calcium 8.8 Phosphorus Magnesium Total Bilirubin Direct Bilirubin AST ALT Alkaline Phosphatase Troponin I < 0.015 B-Natriuretic Peptide 282.3 H Total Protein Albumin [facility] 04/19/19 06:10 WBC RBC Hgb Hct MCV MCH MCHC RDW RDW Differential Plt Count MPV Immature Gran % (Auto) Neut % (Auto) Lymph % (Auto) [place] % (Auto) Eos % (Auto) Baso % (Auto) Absolute Neuts (auto) Absolute Lymphs (auto) Total Counted Sodium Potassium Chloride Carbon Dioxide Anion Gap BUN Creatinine Estim Creat Clear Calc Est GFR (MDRD) Af Amer Est GFR (MDRD) Non-Af BUN/Creatinine Ratio Glucose Calcium Phosphorus Pending Magnesium Pending Total Bilirubin Pending Direct Bilirubin Pending AST Pending ALT Pending Alkaline Phosphatase Pending Troponin I B-Natriuretic Peptide Total Protein Pending Albumin Pending TSH Pending POC Glucose 04/19/19 07:43 POC Glucose 181 H Assessment/Plan All Active Problems (Last Updated 03/11/19 @ 11:25 by NADIRA Daniels) Acute CHF (congestive heart failure) (Acute) Hypertensive emergency (Acute) Acute on chronic combined systolic and diastolic CHF (congestive heart failure) (Resolved) Acute on chronic diastolic heart failure (Resolved) Bronchitis (Resolved) Cough (Resolved) H/O: hysterectomy (Resolved) History of carpal tunnel release (Resolved) Hx of cholecystectomy (Resolved) Hx of knee surgery (Resolved) Pneumonia (Resolved) Impressions 1. Acute on chronic diastolic congestive heart failure 2. Hypertensive emergency with acute congestive heart failure 3. Coronary artery disease with history of PTCA/CASA in the past 4. Stage II diastolic dysfunction 5. 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 Hypertension 7. Diabetes mellitus type 2 8. Hyperlipidemia 9. Left bundle branch block - having tachycardia on tele on PCU - episodic 10. Anxiety/depression 11. Morbid obesity 12. History of pulmonary embolus Admit to a monitored bed on PCU Weigh at admission to the floor and then daily Acccurate I&O's Chest XRAY BNP Diurese with Lasix 40 mg IV twice daily No echo is indicated at this time as she had an echocardiogram in February 2019. Recheck lab in the AM Salt restriction Fluid restriction Dietary consult for education regarding low sodium diet Hydralazine as needed for systolic greater than 150 or diastolic greater than 85 I suspect she has probably not been complaint with the Lasix Check a HGBA1C Code Visit Inpatient E&M: 00122 Init Hosp L3
[2019-04-19 10:06] LABS: AST(SGOT) 14 U/L (15-37); Alanine Aminotransfer ALT/SGPT 16 U/L (13-56); Albumin, Serum 3.6 g/dL (3.2-5.0); Alkaline Phosphatase 68 U/L (45-117); Bilirubin, Direct 0.15 mg/dL (0.00-0.30); Globulin 3.2 g/dL (2.2-4.2); Magnesium 1.9 mg/dL (1.6-2.6); Phosphorus 3.2 mg/dL (2.5-4.9); Protein, Total 6.8 g/dL (6.4-8.2); Thyroid Stim Hormone (TSH) 0.45 uIU/mL (0.358-3.74)
--- NOTE | 2019-04-19 10:16 | VDLE_ITS ---
Reason For Study: pain RIGHT LEFT GSV is normal. CFV is compressible, spontaneous, phasic, CFV is compressible, spontaneous, phasic, competent, and demonstrates normal competent and demonstrates normal augmentation. augmentation. FV is compressible, spontaneous, phasic, competent and demonstrates normal augmentation. POP V is compressible, spontaneous, phasic, competent and demonstrates normal augmentation. T/P Trunk is compressible. PTV is compressible. RT PerV is compressible. Procedure Exam performed portable in patient room. The exam was diagnostic. A preliminary report was called and/or faxed to the pt's RN. Interpretation Summary Deep veins of the right lower extremity are patent and compressible segmentally. There is no evidence of right lower extremity deep vein thrombosis. Valvular competence appears intact within the proximal deep venous system on the right . The right greater saphenous vein appears patent and compressible segmentally. Ordering Physician: Bharati Eldridge Performed By: Ezequiel Jerry RVT
[2019-04-19 10:33] LABS: Hemoglobin A1c 7.5 % (4.2-6.3)
[2019-04-19 11:40] LABS: Bedside Glucose 155 mg/dL (70-110)
[2019-04-19] MEDS: Aspirin E.C. 81 MG Tablet 162 MG PO (12:35)
[2019-04-19] MEDS: Insulin Lispro 100 UNIT/ML INSULN.PEN 10 UNIT SC ×2 (12:38→17:53)
[2019-04-19] MEDS: Furosemide 40 MG/4 ML Vial IV ×2 (12:41→17:54)
[2019-04-19] MEDS: Sertraline 100 MG Tablet PO (12:41)
[2019-04-19] MEDS: 0.9% NaCl Peripheral Flush Adult/Peds IV ×2 (12:41→17:54)
--- NOTE | 2019-04-19 15:05 | CASEMGMT ---
Patient has a Healthcare POA and Healthcare LW on file at [facility]. Shirlene RAMIREZ SHIPPING INSPECTOR
[2019-04-19] MEDS: Heparin Injection (Vial) 5,000 UNIT/ML VIAL 5000 UNIT SC (15:20)
[2019-04-19 17:15] LABS: Bedside Glucose 126 mg/dL (70-110)
[2019-04-19] MEDS: Atorvastatin Calcium 20 MG Tablet PO (22:03)
[2019-04-19 22:16] LABS: Bedside Glucose 88 mg/dL (70-110)
[2019-04-19 22:16] LABS: Bedside Glucose 65 mg/dL (70-110)
[2019-04-19 22:48] LABS: Hematocrit 33.2 % (37-47); Hemoglobin 10.1 g/dl (12.0-15.0)
[2019-04-19] MEDS: hydrALAZINE 20 MG/ML Vial 10 MG IV (23:04)
[2019-04-20] VITALS (12 sets, daily range): BP systolic 124–155; BP diastolic 30–61; PULSE 51–66; RESP 16–18; TEMP 36.4–37.1; O2SAT 95–99
[2019-04-20 06:17] LABS: Anion Gap 10 (5-15); BUN 19 mg/dL (7-18); BUN/Creat Ratio 23.7 RATIO (10-20); Calcium,Total 8.9 mg/dL (8.5-10.1); Chloride 104 mmol/L (98-107); Cholesterol 121 mg/dL (200); EST Glomerular Filtration Rate 73 mL/min (>60); Est Glom Filt Rate - Afr Amer 89 mL/min (>60); Estimated Creatinine Clearance 40.96 ml/min; Glucose 102 mg/dL (74-106); High Density Lipoprotein 43 mg/dL; Potassium 4.1 mmol/L (3.5-5.1); Sodium Level 140 mmol/L (136-145); Triglycerides 157 mg/dL; Very Low Density Lipoprotein 31 mg/dL (5-40)
[2019-04-20 06:45] LABS: Bedside Glucose 124 mg/dL (70-110)
[2019-04-20] MEDS: Isosorbide Mononitrate 30 MG Tablet PO (08:10)
[2019-04-20] MEDS: Sertraline 100 MG Tablet PO (08:10)
[2019-04-20] MEDS: Atenolol 50 MG Tablet PO (08:10)
[2019-04-20] MEDS: Insulin Lispro 100 UNIT/ML INSULN.PEN 10 UNIT SC ×3 (08:10→16:40)
[2019-04-20] MEDS: Furosemide 40 MG/4 ML Vial IV ×2 (08:10→16:40)
[2019-04-20] MEDS: Lisinopril 40 MG Tablet PO (08:17)
[2019-04-20 11:20] LABS: Bedside Glucose 281 mg/dL (70-110)
[2019-04-20] MEDS: Acetaminophen 325 MG Tablet 650 MG PO (13:36)
--- NOTE | 2019-04-20 15:48 | PCM.PROGNOTE ---
Patient Problems: Active and Suspected Problems (Last Reviewed 04/19/19 @ 10:27 by Bharati Eldridge DO) Acute CHF (congestive heart failure) (Acute) Hypertensive emergency (Acute) With acute diastolic congestive heart failure Subjective: States her breathing is much better today. She denies cough. She denies chest pain. Hemoccult stool is positive. She has a chronic anemia. Pt endorses to me that she has faithfully been taking her Lasix and has not missed a dose. - Physical Exam General: Alert, Oriented x3, Cooperative, No apparent distress Oral: Moist Mucosa Neck: Supple Lungs: Clear to auscultation Cardiovascular: Regular rate, Regular Rhythm, Normal S1, Normal S2, Murmur - Unchanged, No Gallop Abdomen: Bowel Sounds Present, Soft, Non Tender, Non-Distended, Obese Extremities: No edema Skin: No rashes Neurological: Cranial nerves II-XII grossly intact, Neuro grossly intact Psych/Mental Status: Normal Affect, Appropriate Vital Signs Temp Pulse Resp BP Pulse Ox 98.7 F 55 L 16 124/33 H 96 04/20/19 14:58 04/20/19 14:58 04/20/19 14:58 04/20/19 14:58 04/20/19 14:58 Oxygen Delivery Method Room Air Weight: 179 lb 7.3 oz Body Mass Index (BMI) 35.6 Finger Stick Blood Glucose 181 Intake and Output for Last 24 Hours 04/18/19 04/19/19 04/20/19 23:59 23:59 23:59 Intake Total 240 / 469 479 / 479 Output Total 550 / 550 Balance 240 / 119 -71 / -71 Microbiology Past 72 Hours 04/19/19 18:25 Stool Occult Blood (JEFFERY) - Final Stool Occult Blood Positive Laboratory Tests Past 24 Hrs 04/19/19 04/20/19 22:27 05:02 Hgb 10.1 L Hct 33.2 L Sodium 140 Potassium 4.1 Chloride 104 Carbon Dioxide 26.0 Anion Gap 10 BUN 19 H Creatinine 0.80 Estim Creat Clear Calc 40.96 Est GFR (MDRD) Af Amer 89 Est GFR (MDRD) Non-Af 73 BUN/Creatinine Ratio 23.7 H Glucose 102 Calcium 8.9 Triglycerides 157 Cholesterol 121 LDL Cholesterol 47 VLDL Cholesterol 31 HDL Cholesterol 43 POC Glucose 04/20/19 04/20/19 04/19/19 11:12 06:33 22:12 POC Glucose 281 H 124 H 88 04/19/19 04/19/19 21:55 17:10 POC Glucose 65 L 126 H Medical Necessity - Tobacco Use Smoking Status: Never smoker Tobacco Use: Non-smoker Assessment/Plan All Active Problems (Last Reviewed 04/19/19 @ 10:27 by Bharati Eldridge DO) Acute CHF (congestive heart failure) (Acute) Hypertensive emergency (Acute) Acute on chronic combined systolic and diastolic CHF (congestive heart failure) (Resolved) Acute on chronic diastolic heart failure (Resolved) Bronchitis (Resolved) Cough (Resolved) H/O: hysterectomy (Resolved) History of carpal tunnel release (Resolved) Hx of cholecystectomy (Resolved) Hx of knee surgery (Resolved) Pneumonia (Resolved) Impressions 1. Acute on chronic diastolic congestive heart failure 2. Hypertensive emergency with acute congestive heart failure 3. Coronary artery disease with history of PTCA/CASA in the past 4. Stage II diastolic dysfunction 5. 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 Hypertension 7. Diabetes mellitus type 2 8. Hyperlipidemia 9. Left bundle branch block - having tachycardia on tele on PCU - episodic 10. Anxiety/depression 11. Morbid obesity 12. History of pulmonary embolus Transition to p.o. Lasix 40 mg twice daily Repeat PA and lateral chest x-ray in the a.m. BMP and magnesium in the a.m. Amlodipine 2.5 mg daily to help better control the blood pressure Probable discharge in the a.m. Code Visit Inpatient E&M: 33595 Subs Hosp L2
--- NOTE | 2019-04-20 15:50 | CASEMGMT ---
Addendum entered by Kelechi Anna 04/21/19 07:46: 04/20/19: 1550: LW/HCPOA: Has both LW and HCPOA, who are her daughters Laury Garcia and Ailyn Vazquez. Original Note: RN CM SWIMMING POOL PLASTERER HELPER CM to room to meet with patient for initial transition planning/care coordination assessment. RN JUSTIN introduced self and role at [facility].? Pt voices understanding and consents to assessment at this time.? Pt resting in bed in no distress at this time.? Pt is A/O at this time and answers all questions appropriately.?? Care providers, pharmacy, and demographics verified at this time. PCP: Abelino Specialists: Wenceslao, cardiology Preferred Pharmacy: [facility] Insurance: [employer] [facility] Prescription Benefit: Yes Living Arrangements: Lives alone. Independent w/ADL's. Daughter does laundry and some housework. Transportation: Pt states drives self and states no transportation concerns at this time.?Daughter or granddaughter will drive her home @ discharge. DME: ?States has the following DME: rails/grab bars, cane, medical alert button, and glucometer. Has a walker but does not use. ??States would like to get another linux systems administrator. HHC/SNF: No history of SNF. Has used [facility]HC. Denies needs for HHC or OP therapy. Pt wishes to return home and states has no concerns with going home at time of discharge.? Discussed CCN with patient and she is agreeable to to CCN referral. Call placed to Alvaro @ [facility] and referral made. CM to follow for any further discharge planning/needs.? Pt voices no further concerns/needs at this time.? Advised pt to ask for CM if she has any further questions/concerns/needs arise.? Voices understanding. PLAN: ?Home. CCN referral has been made. Minh TERESA RN, CM
[2019-04-20] MEDS: amLODIPine 2.5 MG Tablet PO (16:40)
[2019-04-20 16:46] LABS: Bedside Glucose 70 mg/dL (70-110)
[2019-04-20] MEDS: Heparin Injection (Vial) 5,000 UNIT/ML VIAL 5000 UNIT SC (21:06)
[2019-04-20] MEDS: 0.9% NaCl Peripheral Flush Adult/Peds IV (21:07)
[2019-04-20] MEDS: hydrALAZINE 20 MG/ML Vial 10 MG IV (21:07)
[2019-04-20] MEDS: Atorvastatin Calcium 20 MG Tablet PO (21:07)
[2019-04-20] MEDS: Pantoprazole Sodium 40 MG Tablet PO (21:13)
[2019-04-20 21:26] LABS: Bedside Glucose 131 mg/dL (70-110)
[2019-04-21 02:57] VITALS: BP 137/43; PULSE 68; RESP 16; TEMP 36.8; O2SAT 94
[2019-04-21 03:03] VITALS: PULSE 60
[2019-04-21] MEDS: Heparin Injection (Vial) 5,000 UNIT/ML VIAL 5000 UNIT SC (06:01)
[2019-04-21 06:51] LABS: Anion Gap 11 (5-15); BUN 24 mg/dL (7-18); BUN/Creat Ratio 26.8 RATIO (10-20); Calcium,Total 9.5 mg/dL (8.5-10.1); Chloride 104 mmol/L (98-107); EST Glomerular Filtration Rate 64 mL/min (>60); Est Glom Filt Rate - Afr Amer 78 mL/min (>60); Estimated Creatinine Clearance 36.41 ml/min; Glucose 99 mg/dL (74-106); Magnesium 2.1 mg/dL (1.6-2.6); Sodium Level 143 mmol/L (136-145)
[2019-04-21 07:16] VITALS: PULSE 58
--- NOTE | 2019-04-21 08:20 | RAD_ITS ---
STUDY: X-RAY CHEST REASON FOR EXAM: Female, 79 years old. Congestive heart failure TECHNIQUE: PA and lateral chest COMPARISON: 04/19/2019 FINDINGS: Clear lungs. Borderline cardiomegaly. LAD stent, coronary calcifications. No acute osseous or upper abdominal process. RAD/Chest PA and Lateral IMPRESSION: No acute cardiopulmonary process. Electronically Signed: Yann Singh MD at 14:07 EDT Tel , Service support ,
[2019-04-21] MEDS: Insulin Lispro 100 UNIT/ML INSULN.PEN 10 UNIT SC ×2 (08:37→11:53)
[2019-04-21] MEDS: Isosorbide Mononitrate 30 MG Tablet PO (08:38)
[2019-04-21] MEDS: Pantoprazole Sodium 40 MG Tablet PO (08:39)
[2019-04-21] MEDS: Lisinopril 40 MG Tablet PO (08:39)
[2019-04-21] MEDS: Sertraline 100 MG Tablet PO (08:39)
[2019-04-21] MEDS: Atenolol 50 MG Tablet PO (08:39)
[2019-04-21] MEDS: Furosemide 40 MG Tablet PO (08:41)
[2019-04-21] MEDS: amLODIPine 2.5 MG Tablet PO (08:41)
[2019-04-21 08:42] VITALS: BP 138/50; PULSE 60; RESP 16; TEMP 36.8; O2SAT 99
[2019-04-21 11:20] LABS: Bedside Glucose 97 mg/dL (70-110)
[2019-04-21 12:00] LABS: Bedside Glucose 281 mg/dL (70-110)
--- NOTE | 2019-04-21 13:26 | DCINST_ITS ---
- Discharge Diagnoses Current Active Problems: Current Active and Chronic Problems (Last Reviewed 04/19/19 @ 10:27 by Bharati Eldridge DO) Acute CHF (congestive heart failure) (Acute) Hypertensive emergency (Acute) With acute diastolic congestive heart failure Grade II diastolic dysfunction (Chronic) You will use the following diet at home:: Calorie/Carbohydrate Controlled (specify 1200, 1400, etc), Cardiac Your food should be the consistency of: Regular Your liquids should be the consistency of: Regular/Thin Discharge Activity: Return to Normal Activity Call your doctor if you observe: Fever of 101 or Higher, Shortness of breath, Dizziness, Fainting spells, Swelling in the ankles, Chest pain Additional Instructions: 1. I added a new BP pill to your drug regimen to better control the BP. It is called amlodipine and you will take it once a day. Your BP today is well controlled. 2. I think the heart failure happened because the BP was WAY TOO HIGH. Watch that you don't eat too much salt. 3. The HGBA1C was 7.5 and that is pretty good......you are doing a good job controlling your blood sugars. 4. You do have some blood in the stool and I think this may be coming from hemorrhoids BUT I can not be sure. I think you should talk to Dr. Roca about whether or not you should have a colonoscopy. Allergies/Adverse Reactions: Allergies latex Allergy (Verified 04/19/19 05:57) Rash Medications to take at Discharge Albuterol Sulfate [Proair Hfa] 2 puff INHALATION BID 12/23/13 Insulin Lispro [Humalog KwikPen] 10 unit SC TIDCM 12/23/13 Nitroglycerin (INPATIENT USE) [Nitrostat] 0.4 mg SUBLINGUAL PRN PRN 01/25/15 Insulin Glargine,Hum.rec.anlog [Toivanna Solostsudarshan] 80 unit SQ DAILY 11/05/15 lisinopril 40 mg tablet 40 mg PO QDAY #90 tab 07/26/18 atorvastatin 20 mg tablet 20 mg PO QDAY #30 tab 09/22/18 Sertraline HCl 100 mg PO DAILY 02/26/19 Potassium Chloride [K-Dur] 40 meq PO DAILY #60 tab 03/01/19 atenolol 50 mg tablet 50 mg PO QDAY #90 tab 03/11/19 isosorbide mononitrate ER 30 mg tablet,extended release 24 hr 30 mg PO DAILY #90 tab 03/11/19 Aspirin [Aspir-Low] 162 mg PO DAILY 04/19/19 Ferrous Sulfate 325 mg PO DAILY 04/19/19 Amlodipine [Norvasc] 2.5 mg PO DAILY #30 tab 04/21/19 Furosemide [Lasix] 40 mg PO BID@1000,1800 tablet 04/21/19 The following prescriptions were given: Amlodipine [Norvasc] 2.5 mg PO DAILY #30 tab Transmission Status: Pending to [id number] Primary Care Physician: Riley Roca Chi, MD [Primary Care Provider] - Please follow up with your Primary Care Physician in: 1 week Test Results: Test results from this visit will be discussed in further detail at your follow- up appointment, if applicable. Proposed Discharge Date: 04/21/19
--- NOTE | 2019-04-21 13:38 | PCM.DC.SUM ---
Discharge Date and Diagnosis Date of Admission: 04/19/19 Date of Discharge: 04/21/19 - Primary Discharge Diagnosis Active and Suspected Problems (Last Reviewed 04/19/19 @ 10:27 by Bharati Eldridge DO) Acute on chronic diastolic (congestive) heart failure (Acute) secondary to Hypertensive emergency Hypertensive emergency (Acute) Heme positive stool (Acute) - Secondary Discharge Diagnosis Chronic Problems (Last Reviewed 04/19/19 @ 10:27 by Bharati Eldridge DO) Hematochezia (Chronic) History of hemorrhoids (Chronic) Normocytic anemia (Chronic) Grade II diastolic dysfunction (Chronic) Obesity (BMI 30-39.9) (Chronic) Anxiety and depression (Chronic) PAD (peripheral artery disease) (Chronic) Atherosclerotic heart disease of [place] coronary artery without angina pectoris (Chronic) PTCA/stent to mid first Diagonal 12/21/03; PTCA/stent to mid Diagonal 07/02/07 Left bundle branch block (Chronic) 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 Anemia due to chronic blood loss (Chronic) CAD (coronary artery disease) (Chronic) Type II diabetes mellitus (Chronic) HLD (hyperlipidemia) (Chronic) History of pulmonary embolus (PE) (Chronic) History of coronary artery stent placement (Chronic) PTCA/stent to mid first Diagonal 12/21/03; PTCA/stent to mid Diagonal 07/02/07 NSTEMI (non-ST elevated myocardial infarction) (Chronic) Hospital Course and Treatment Imaging Results: 04/21/19 08:20 Chest PA and Lateral [RAD] AM (NON MEDS) Clinical Impression(s) from Imaging Studies Chest X-Ray 04/19/19 06:22 IMPRESSION: Mild cardiomegaly, with mild CHF. Electronically Signed: John Cotsa MD at 7:39 EDT , Service support , Brain CT 04/19/19 07:53 IMPRESSION: No acute abnormality is seen. Stable examination. Electronically Signed: Crow Avalos, at 8:24 EDT , Service support , none Operations: None Procedures: - - Right lower extremity venous ultrasound-negative for DVT Summary of Care Provided: The patient is a 79 year old F with a past medical history of hypertension, hyperlipidemia, diabetes mellitus type 2, coronary artery disease with history of PTCA/CASA in the past, chronic renal failure stage II, chronic anemia, obesity, stage II diastolic dysfunction, peripheral vascular disease, left bundle branch block and history of pulmonary embolus who presented to the ED at [facility] on 04/19/2019 complaining of sudden onset of shortness of breath, headache and lightheadedness when going to bed the preceding evening. She denied chest pain, pressure or heaviness. She denied palpitations. She denied missing any of her medications recently and stated there have been no recent additions to her drug formulary. She complained of swelling in her right leg and pain in the calf. Venous US was negative for DVT. Vital signs at presentation to the emergency department were temperature 97, pulse rate 72, blood pressure 200/70, respiratory rate 20 and she was 96 to 97% saturated on room air. White blood cell count and differential were unremarkable. Hemoglobin was 9.7 which is within her baseline. MCV was 85.4 and the RDW was increased at 16.5. Platelets were within normal limits. BMP was unremarkable with the exception of an elevated BUN at 19 with a creatinine of 0.75 and a BUN/creatinine ratio of 25.4. Random blood sugar was 152. LFTs were unremarkable. Troponin was less than 0.015. TSH was normal at 0.45. Chest x-ray was consistent with pulmonary edema. A noncontrasted CT brain was negative. EKG showed normal sinus rhythm with left bundle branch block. She was admitted to [facility] in February of 2019 for acute diastolic CHF and at that time admitted to not taking Lasix as instructed. She was admitted to a monitored bed on PCU and restarted on her home medications. PRN hydralazine was ordered for blood pressure control. She was started on intravenous Lasix 40 mg IV twice daily. Serial cardiac enzymes were ordered and were negative. The following day her lungs were clear to auscultation and her breathing was much improved. She was transitioned to p.o. Lasix 40 mg twice daily. She was started on amlodipine 2.5 mg daily to better control the blood pressure. On 04/21/2019 she was afebrile with a blood pressure of 138/50. She was 99% saturated on room air. Chest x-ray showed no pulmonary vascular congestion and no pleural effusions. She was discharged home on furosemide 40 mg p.o. twice daily. She was given a prescription for amlodipine 2.5 mg and instructed to take 1 p.o. daily. She will follow-up with Dr. Kwan in the office in 1 week. PHYSICAL EXAM: GENERAL: alert, oriented X 3, Cooperative, NAD ORAL: moist mucosa, no mucosal lesions NECK: No JVD, supple, trachea midline LUNGS: CTA, symmetric chest expansion HEART: RRR, Normal S1 and S2, no rub, no gallop, murmur ABDOMEN: soft, NT, ND, BS present, no guarding with palpation EXTREMITIES: no edema, no cyanosis, no calf tenderness SKIN: No rashes, no breakdown NEUROLOGIC: no focal neurologic deficits PSYCH: appropriate, normal affect, pleasant This note was generated with [employer] dictation software. It may contain incorrect words, spelling, and punctuation that were not noted in checking the note before signing. - Physical Exam Vital Signs Temp Pulse Resp BP Pulse Ox 98.2 F 60 16 138/50 H 99 04/21/19 08:42 04/21/19 08:42 04/21/19 08:42 04/21/19 08:42 04/21/19 08:42 Oxygen Delivery Method Room Air Weight: 176 lb 12.972 oz Body Mass Index (BMI) 35.6 Finger Stick Blood Glucose 181 Intake and Output for Last 24 Hours 04/19/19 04/20/19 04/21/19 23:59 23:59 23:59 Intake Total 240 / 469 899 / 899 240 / 240 Output Total 950 / 950 Balance 240 / 119 -51 / -51 240 / 240 Microbiology Past 72 Hours 04/19/19 18:25 Stool Occult Blood (JEFFERY) - Final Stool Occult Blood Positive Laboratory Tests Past 24 Hrs 04/21/19 05:50 Sodium 143 Potassium 4.0 Chloride 104 Carbon Dioxide 28.0 Anion Gap 11 BUN 24 H Creatinine 0.90 Estim Creat Clear Calc 36.41 Est GFR (MDRD) Af Amer 78 Est GFR (MDRD) Non-Af 64 BUN/Creatinine Ratio 26.8 H Glucose 99 Calcium 9.5 Magnesium 2.1 POC Glucose 04/21/19 04/21/19 04/20/19 11:51 06:40 21:04 POC Glucose 281 H 97 131 H 04/20/19 16:37 POC Glucose 70 Discharge Activity: Return to Normal Activity Call your doctor if you observe: Fever of 101 or Higher, Shortness of breath, Dizziness, Fainting spells, Swelling in the ankles, Chest pain Home Medications: Medications to take at Discharge Albuterol Sulfate [Proair Hfa] 2 puff INHALATION BID 12/23/13 Insulin Lispro [Humalog KwikPen] 10 unit SC TIDCM 12/23/13 Nitroglycerin (INPATIENT USE) [Nitrostat] 0.4 mg SUBLINGUAL PRN PRN 01/25/15 Insulin Glargine,Hum.rec.anlog [Toujeo Solostar] 80 unit SQ DAILY 11/05/15 lisinopril 40 mg tablet 40 mg PO QDAY #90 tab 07/26/18 atorvastatin 20 mg tablet 20 mg PO QDAY #30 tab 09/22/18 Sertraline HCl 100 mg PO DAILY 02/26/19 Potassium Chloride [K-Dur] 40 meq PO DAILY #60 tab 03/01/19 atenolol 50 mg tablet 50 mg PO QDAY #90 tab 03/11/19 isosorbide mononitrate ER 30 mg tablet,extended release 24 hr 30 mg PO DAILY #90 tab 03/11/19 Aspirin [Aspir-Low] 162 mg PO DAILY 04/19/19 Ferrous Sulfate 325 mg PO DAILY 04/19/19 Amlodipine [Norvasc] 2.5 mg PO DAILY #30 tab 04/21/19 Furosemide [Lasix] 40 mg PO BID@1000,1800 tab 04/21/19 Following Prescrptions Were Given to Patient: Amlodipine [Norvasc] 2.5 mg PO DAILY #30 tab Transmission Status: Received by [id number] Primary Care Physician: Riley Roca Chi, MD [Primary Care Provider] - Please follow up with your Primary Care Physician in: 1 week Disposition: Home Minutes spent on discharge:: 30 Patient Condition:: Good Medical Necessity - Tobacco Use Smoking Status: Never smoker Tobacco Use: Non-smoker Meaningful Use Info Meaningful Use Diagnoses (Choose all that apply): CHF - CHF CEDRICK/ARB ordered at discharge?: Yes Documented LVEF (%): 55 Code Visit Inpatient E&M: 36496 Disch Hosp
--- NOTE | 2019-04-22 14:41 | CASEMGMT ---
JUDSON ANDERSON DC PHONE CALL DC DATE: 04/21/19 DC Disposition: Home Diagnosis on Discharge: CHF LACE/STRATA: 09/21 Attempted all to home phone. No answer.
== END 2019-04-21 14:08 | disposition home or self-care (01) | DRG 291 ==
LOC: ED 06:42 → PCU 08:25
PROVIDERS: Hospitalist; Admitting Provider Internal Medicine; Emergency Provider Emergency Medicine; Family Provider Family Medicine Geriatric Medicine; PCP Family Medicine Geriatric Medicine; Visit Provider Internal Medicine
DX: I13.0 Hypertensive heart and chronic kidney disease with heart failure and stage 1 through stage 4 chronic kidney disease, or unspecified chronic kidney disease (principal); I50.33 Acute on chronic diastolic (congestive) heart failure; I16.1 Hypertensive emergency; F32.9 Major depressive disorder, single episode, unspecified; F41.9 Anxiety disorder, unspecified; E66.01 Morbid (severe) obesity due to excess calories; I44.7 Left bundle-branch block, unspecified; R00.0 Tachycardia, unspecified; E78.5 Hyperlipidemia, unspecified; I25.10 Atherosclerotic heart disease of native coronary artery without angina pectoris; E11.22 Type 2 diabetes mellitus with diabetic chronic kidney disease; R19.5 Other fecal abnormalities; I73.9 Peripheral vascular disease, unspecified; Z95.5 Presence of coronary angioplasty implant and graft; Z86.711 Personal history of pulmonary embolism; Z68.35 Body mass index [BMI] 35.0-35.9, adult; Z79.4 Long term (current) use of insulin
CPT/HCPCS: 36415; 70450; 71046; 80048; 80061; 80076; 82274; 82962; 83036; 83735; 83880; 84100; 84443; 84484; 85014; 85018; 85025; 93005; 93971; 97162; 97166; 97530; 97535; 99285; J7050; A4216; J1940

== ENCOUNTER → 2019-04-27 17:18 | Outpatient (CLI) | payer MEDICARE, SELFPAY ==
[2019-04-19 09:59] VITALS: BMI 35.6
[2019-04-27 18:26] LABS: Anion Gap 8 (5-15); BUN 43 mg/dL (7-18); BUN/Creat Ratio 41.7 RATIO (10-20); Calcium,Total 9.5 mg/dL (8.5-10.1); Chloride 103 mmol/L (98-107); Creatinine, Serum 1.03 mg/dL (0.55-1.02); EST Glomerular Filtration Rate 55 mL/min (>60); Est Glom Filt Rate - Afr Amer 66 mL/min (>60); Glucose 60 mg/dL (74-106); Potassium 4.6 mmol/L (3.5-5.1); Sodium Level 137 mmol/L (136-145)
== END ==
PROVIDERS: Family Provider Family Medicine Geriatric Medicine; PCP Family Medicine Geriatric Medicine; Visit Provider Family Medicine Geriatric Medicine
DX: J81.1 Chronic pulmonary edema (principal)
CPT/HCPCS: 36415; 80048

== ENCOUNTER → 2019-05-26 16:31 | Outpatient (CLI) | payer MEDICARE, SELFPAY ==
[2019-04-19 09:59] VITALS: BMI 35.6
== END ==
PROVIDERS: Family Provider Family Medicine Geriatric Medicine; PCP Family Medicine Geriatric Medicine; Visit Provider Family Medicine Geriatric Medicine
DX: N39.0 Urinary tract infection, site not specified (principal)
CPT/HCPCS: 87086; 87088; 87186

== ENCOUNTER → 2019-08-17 15:04 | Outpatient (CLI) | payer MEDICARE, SELFPAY ==
[2019-04-19 09:59] VITALS: BMI 35.6
--- NOTE | 2019-08-17 15:28 | CT_ITS ---
STUDY: CT BRAIN WITHOUT CONTRAST REASON FOR EXAM: Female, 79 years old. Closed head injury, fall, headache RADIATION DOSAGE (If Supplied By Facility): CTDIvol = ( 60.81 ) mGy, DLP = ( 1044.28 ) mGycm TECHNIQUE: Transaxial CT imaging of the brain was performed without administration of intravenous contrast material. Individualized dose optimization techniques were used for this CT. COMPARISON: 04/19/2019 FINDINGS: Normal soft tissue structures. There is hyperostosis frontalis internus. Normal size ventricles and extra-axial spaces for the patient's age. Normal white matter tracts of the cerebral hemispheres. Normal basal ganglia and thalami. Normal brainstem. Normal cerebellum. There is no intracranial hemorrhage. There are no findings of an acute ischemic infarction. Normal visualized paranasal sinuses. CT/Brain/Head without Contrast IMPRESSION: Normal unenhanced CT scan of the brain. Electronically Signed: Yann Kaur MD at 16:19 EDT Tel , Service support ,
--- NOTE | 2019-08-17 15:28 | RAD_ITS ---
STUDY: X-RAY - UNILATERAL RIBS ( LEFT ) WITH CHEST REASON FOR EXAM: Female, 79 years old. Trauma TECHNIQUE - RIBS: 5 view(s) of the ribs. TECHNIQUE - CHEST: 1 frontal view COMPARISON: April 21, 2019 FINDINGS - RIBS: Acute nondisplaced fracture of the lateral left sixth rib. FINDINGS - CHEST: Clear lungs. Normal cardiac mediastinal silhouette. Atherosclerosis of the aortic knob. The soft tissues are unremarkable. RAD/Ribs Uni Min 3V w/PA Chest IMPRESSION: RIBS: Acute nondisplaced fracture of the lateral left sixth rib. CHEST: Normal x-ray examination of the chest. Electronically Signed: Lemuel Luna, at 17:39 EDT Tel , Service support ,
--- NOTE | 2019-08-17 15:40 | RAD_ITS ---
STUDY: X-RAY - PELVIS AND LEFT HIP REASON FOR EXAM: Female, 79 years old. Trauma TECHNIQUE: 3 views of the pelvis and left hip. COMPARISON: None. FINDINGS: No acute fracture is pelvis or left hip. Mineralization is within normal limits. There is moderate bilateral hip arthrosis. Extensive vascular calcifications are noted. The soft tissues are unremarkable. RAD/HIP, UNI W/ Pelvis 2-3 Views IMPRESSION: No acute fracture or dislocation pelvis or left hip. Electronically Signed: Lemuel Luna, at 16:34 EDT Tel , Service support ,
[2019-08-17 17:18] LABS: Absolute Lymphocyte Count 1.92 X10^3/uL (0.83-4.51); Absolute Neutrophil Count 10.3 X10^3/uL (2.0-7.7); Basophil# 0.06 X10^3/uL; Basophil% 0.4 % (0-1); Eosinophil# 0.16 X10^3/uL; Eosinophils% 1.2 % (0-5); Hemoglobin 10.4 g/dL (12.0-15.0); Lymphocyte # 1.92 X10^3/ul (4.0); Lymphocyte % 14.3 % (19-41); Mean Corp Hgb Conc 29.7 g/dL (32-36); Mean Corpuscular Hgb 25.4 pg (27.0-32.0); Mean Corpuscular Volume 85.4 fL (81-99); Mean Platelet Vol. 12.1 fl (6.2-12.0); Monocyte# 0.88 X10^3/uL; Monocyte% 6.6 % (0-10); NRBC Flagged by Analyzer 0 % (0-5); Neutrophil # 10.32 X10^3/uL (2.7-7.7); Neutrophil % 76.9 % (47-70); Platelet Count 238 K/mm3 (150-450); RBC Distribution Width CV 14.8 % (11.6-14.6); RBC Distribution Width SD 45.7 fl (35.1-43.9); White Blood Count 13.4 K/mm3 (4.4-11.0)
[2019-08-17 17:40] LABS: Anion Gap 8 (5-15); BUN 13 mg/dL (7-18); BUN/Creat Ratio 16.6 RATIO (10-20); Calcium,Total 9.4 mg/dL (8.5-10.1); Chloride 102 mmol/L (98-107); Creatinine, Serum 0.78 mg/dL (0.55-1.02); EST Glomerular Filtration Rate 75 mL/min (>60); Est Glom Filt Rate - Afr Amer 91 mL/min (>60); Glucose 210 mg/dL (74-106); Potassium 4.2 mmol/L (3.5-5.1); Sodium Level 138 mmol/L (136-145)
== END ==
PROVIDERS: Family Provider Family Medicine Geriatric Medicine; PCP Family Medicine Geriatric Medicine; Referring Provider Family Medicine Geriatric Medicine; Visit Provider Family Medicine Geriatric Medicine
DX: I10 Essential (primary) hypertension (principal); S09.90XA Unspecified injury of head, initial encounter; R07.89 Other chest pain
CPT/HCPCS: 36415; 70450; 71101; 73502; 80048; 85025

== ENCOUNTER → 2019-09-20 15:09 | Outpatient (CLI) | payer MEDICARE, SELFPAY ==
[2019-04-19 09:59] VITALS: BMI 35.6
[2019-09-20 17:20] LABS: Absolute Lymphocyte Count 1.95 X10^3/uL (0.83-4.51); Absolute Neutrophil Count 8.4 X10^3/uL (2.0-7.7); Basophil# 0.05 X10^3/uL; Basophil% 0.4 % (0-1); Eosinophil# 0.22 X10^3/uL; Eosinophils% 1.9 % (0-5); Hematocrit 29.2 % (37-47); Hemoglobin 8.5 g/dL (12.0-15.0); Lymphocyte # 1.95 X10^3/ul (4.0); Lymphocyte % 17.1 % (19-41); Mean Corp Hgb Conc 29.1 g/dL (32-36); Mean Corpuscular Hgb 24.4 pg (27.0-32.0); Mean Corpuscular Volume 83.7 fL (81-99); Mean Platelet Vol. 12.3 fl (6.2-12.0); Monocyte# 0.72 X10^3/uL; Monocyte% 6.3 % (0-10); NRBC Flagged by Analyzer 0 % (0-5); Neutrophil # 8.35 X10^3/uL (2.7-7.7); Neutrophil % 73.5 % (47-70); Platelet Count 234 K/mm3 (150-450); RBC Distribution Width CV 16.5 % (11.6-14.6); RBC Distribution Width SD 50.2 fl (35.1-43.9); Red Blood Count 3.49 M/mm3 (4.2-5.4); White Blood Count 11.4 K/mm3 (4.4-11.0)
[2019-09-20 17:40] LABS: Vitamin D,25 Hydroxy 30.8 ng/mL (29.95-100.01)
[2019-09-20 17:41] LABS: ALB/GLOB Ratio 1.1 RATIO (0.9-2.4); AST(SGOT) 14 U/L (15-37); Alanine Aminotransfer ALT/SGPT 24 U/L (13-56); Albumin, Serum 3.5 g/dL (3.2-5.0); Alkaline Phosphatase 92 U/L (45-117); Anion Gap 8 (5-15); BUN 20 mg/dL (7-18); BUN/Creat Ratio 18.5 RATIO (10-20); Calcium,Total 8.8 mg/dL (8.5-10.1); Chloride 102 mmol/L (98-107); Creatinine, Serum 1.08 mg/dL (0.55-1.02); EST Glomerular Filtration Rate 52 mL/min (>60); Est Glom Filt Rate - Afr Amer 63 mL/min (>60); Globulin 3.2 g/dL (2.2-4.2); Glucose 228 mg/dL (74-106); Potassium 5.2 mmol/L (3.5-5.1); Protein, Total 6.7 g/dL (6.4-8.2); Sodium Level 136 mmol/L (136-145); Thyroid Stim Hormone (TSH) 0.35 uIU/mL (0.358-3.74); Uric Acid 7.8 mg/dL (2.6-6.0)
[2019-09-21 13:32] LABS: T3 Uptake 32 % (30-39); T4 Free Direct 0.95 ng/dL (0.76-1.46)
== END ==
PROVIDERS: Family Provider Family Medicine Geriatric Medicine; PCP Family Medicine Geriatric Medicine; Visit Provider Family Medicine Geriatric Medicine
DX: E11.9 Type 2 diabetes mellitus without complications (principal); E55.9 Vitamin D deficiency, unspecified; I10 Essential (primary) hypertension; M10.9 Gout, unspecified; E05.90 Thyrotoxicosis, unspecified without thyrotoxic crisis or storm
CPT/HCPCS: 36415; 80053; 82306; 84439; 84443; 84479; 84550; 85025

== ENCOUNTER → 2019-11-25 | Outpatient (CLI) | payer MEDICARE, SELFPAY ==
[2019-09-21 13:18] VITALS: BMI 36.3
== END | disposition home or self-care (01) ==
LOC: PSN 11:37
PROVIDERS: PCP Family Medicine Geriatric Medicine; Referring Provider Family Medicine Geriatric Medicine; Visit Provider Family Medicine Geriatric Medicine
DX: R68.83 Chills (without fever) (principal)
CPT/HCPCS: 87633

== ENCOUNTER → 2020-01-09 | Outpatient (CLI) | payer MEDICARE, SELFPAY ==
[2019-09-21 13:18] VITALS: BMI 36.3
--- NOTE | 2020-01-09 16:55 | RAD_ITS ---
STUDY: X-RAY CHEST REASON FOR EXAM: Female, 80 years old. CHEST PAIN TECHNIQUE: PA and lateral views of the chest. COMPARISON: 04/21/2019. FINDINGS: The lungs are clear and expanded. There is no demonstrated pleural abnormality. Normal size heart. Normal mediastinum and twila. Normal visualized pulmonary arteries. There is atherosclerotic calcification of the aortic arch with tortuosity. There is demineralization of the osseous structures. There is degenerative osteoarthritis of the bilateral shoulders and spine. There is no demonstrated abnormality of the visualized soft tissue structures of the upper abdomen. RAD/Chest PA and Lateral IMPRESSION: No acute cardiopulmonary disease. Electronically Signed: Linn Gay MD at 0:13 EDT , Service support ,
[2020-01-09 17:08] LABS: Absolute Lymphocyte Count 1.58 X10^3/uL (0.83-4.51); Absolute Neutrophil Count 10.4 X10^3/uL (2.0-7.7); Basophil# 0.04 X10^3/uL; Basophil% 0.3 % (0-1); Eosinophil# 0.18 X10^3/uL; Eosinophils% 1.4 % (0-5); Hematocrit 23.5 % (37-47); Hemoglobin 6.5 g/dL (12.0-15.0); Lymphocyte # 1.58 X10^3/ul (4.0); Lymphocyte % 11.9 % (19-41); Mean Corp Hgb Conc 27.7 g/dL (32-36); Mean Corpuscular Hgb 20.4 pg (27.0-32.0); Mean Corpuscular Volume 73.7 fL (81-99); Mean Platelet Vol. 11.3 fl (6.2-12.0); Monocyte# 0.98 X10^3/uL; Monocyte% 7.4 % (0-10); NRBC Flagged by Analyzer 0 % (0-5); Neutrophil # 10.38 X10^3/uL (2.7-7.7); Neutrophil % 77.9 % (47-70); Platelet Count 239 K/mm3 (150-450); RBC Distribution Width CV 18.2 % (11.6-14.6); RBC Distribution Width SD 48.1 fl (35.1-43.9); Red Blood Count 3.19 M/mm3 (4.2-5.4); White Blood Count 13.3 K/mm3 (4.4-11.0)
[2020-01-09 17:49] LABS: ALB/GLOB Ratio 0.9 RATIO (0.9-2.4); AST(SGOT) 12 U/L (15-37); Alanine Aminotransfer ALT/SGPT 19 U/L (13-56); Albumin, Serum 3.1 g/dL (3.2-5.0); Alkaline Phosphatase 80 U/L (45-117); Anion Gap 6 (5-15); BUN 17 mg/dL (7-18); BUN/Creat Ratio 18.1 RATIO (10-20); CPK Total, Creatine Kinase 41 U/L (26-192); Calcium,Total 9.2 mg/dL (8.5-10.1); Chloride 101 mmol/L (98-107); Creatinine, Serum 0.94 mg/dL (0.55-1.02); EST Glomerular Filtration Rate 61 mL/min (>60); Est Glom Filt Rate - Afr Amer 74 mL/min (>60); Globulin 3.4 g/dL (2.2-4.2); Glucose 252 mg/dL (74-106); Potassium 4.9 mmol/L (3.5-5.1); Protein, Total 6.5 g/dL (6.4-8.2); Sodium Level 136 mmol/L (136-145); Thyroid Stim Hormone (TSH) 0.12 uIU/mL (0.358-3.74)
[2020-01-09 18:16] LABS: BNP,B-Type NATRIURETIC PEPTIDE 502.9 pg/mL (0-100)
[2020-01-10 10:31] LABS: T3 Uptake 34 % (30-39)
[2020-01-11 14:28] LABS: Myoglobin, Serum 29 ng/mL (25-58)
== END | disposition home or self-care (01) ==
PROVIDERS: PCP Family Medicine Geriatric Medicine; Referring Provider Family Medicine Geriatric Medicine; Visit Provider Family Medicine Geriatric Medicine
DX: R06.89 Other abnormalities of breathing (principal); R06.09 Other forms of dyspnea; R07.9 Chest pain, unspecified; R53.83 Other fatigue
CPT/HCPCS: 36415; 71046; 80053; 82550; 83874; 83880; 84439; 84443; 84479; 84484; 85025

== ENCOUNTER → 2020-01-10 | Outpatient (CLI) | payer MEDICARE, SELFPAY ==
[2019-09-21 13:18] VITALS: BMI 36.3
== END | disposition home or self-care (01) ==
LOC: POLAB3 15:13
PROVIDERS: PCP Family Medicine Geriatric Medicine; Visit Provider Family Medicine Geriatric Medicine
DX: D64.9 Anemia, unspecified (principal)
CPT/HCPCS: 36415; 82550; 83874; 84484; 85025; 86850; 86900; 86901; 86920; 86922

== ENCOUNTER → 2020-01-11 08:19 | Outpatient (CLI) | payer MEDICARE, SELFPAY ==
[2019-09-21 13:18] VITALS: BMI 36.3
[2020-01-10 16:26] LABS: Absolute Lymphocyte Count 1.81 X10^3/uL (0.83-4.51); Absolute Neutrophil Count 8.2 X10^3/uL (2.0-7.7); Basophil# 0.05 X10^3/uL; Basophil% 0.5 % (0-1); Eosinophil# 0.17 X10^3/uL; Eosinophils% 1.5 % (0-5); Hematocrit 25.3 % (37-47); Lymphocyte # 1.81 X10^3/ul (4.0); Lymphocyte % 16.4 % (19-41); Mean Corp Hgb Conc 27.7 g/dL (32-36); Mean Corpuscular Hgb 20.1 pg (27.0-32.0); Mean Corpuscular Volume 72.5 fL (81-99); Mean Platelet Vol. 11.9 fl (6.2-12.0); Monocyte# 0.75 X10^3/uL; Monocyte% 6.8 % (0-10); NRBC Flagged by Analyzer 0.2 % (0-5); Neutrophil # 8.17 X10^3/uL (2.7-7.7); Neutrophil % 73.8 % (47-70); Platelet Count 269 K/mm3 (150-450); RBC Distribution Width CV 18.3 % (11.6-14.6); RBC Distribution Width SD 47.6 fl (35.1-43.9); Red Blood Count 3.49 M/mm3 (4.2-5.4); White Blood Count 11.1 K/mm3 (4.4-11.0)
[2020-01-10 16:50] LABS: CPK Total, Creatine Kinase 36 U/L (26-192)
[2020-01-11] VITALS (7 sets, daily range): BP systolic 125–166; BP diastolic 42–63; PULSE 64–74; RESP 16–20; TEMP 35.6–36.8; O2SAT 97–99; BMI 34.9
[2020-01-11] MEDS: Furosemide 40 MG/4 ML Vial IV (12:19)
[2020-01-12 10:35] LABS: Myoglobin, Serum 32 ng/mL (25-58)
== END ==
PROVIDERS: PCP Family Medicine Geriatric Medicine; Referring Provider Family Medicine Geriatric Medicine; Visit Provider Family Medicine Geriatric Medicine
DX: D64.9 Anemia, unspecified (principal); R07.9 Chest pain, unspecified
CPT/HCPCS: 36415; 36430; 82550; 83874; 84484; 85025; 86850; 86900; 86901; 86920; 86922; J7040; P9016; A4216; J1940

== ENCOUNTER → 2020-01-12 14:58 | Outpatient (CLI) | payer MEDICARE, SELFPAY ==
[2019-09-21 13:18] VITALS: BMI 36.3
[2020-01-11 08:47] VITALS: BMI 34.9
[2020-01-12 16:07] LABS: Hematocrit 32.4 % (37-47); Hemoglobin 9.3 g/dL (12.0-15.0)
== END ==
PROVIDERS: PCP Family Medicine Geriatric Medicine; Visit Provider Family Medicine Geriatric Medicine
DX: D64.9 Anemia, unspecified (principal)
CPT/HCPCS: 36415; 85014; 85018

== ENCOUNTER → 2020-02-01 13:47 | Outpatient (CLI) | payer MEDICARE, SELFPAY ==
[2020-01-11 08:47] VITALS: BMI 34.9
[2020-02-01 13:58] VITALS: BP 171/64; PULSE 68; RESP 16; TEMP 36.3; O2SAT 100; BMI 34.7
[2020-02-01] MEDS: 0.9% NaCl IVPB Med Flush (250 mL) 15 ML IV (14:01)
[2020-02-01] MEDS: 0.9% NaCl Peripheral Flush Adult/Peds IV (14:01)
== END ==
PROVIDERS: PCP Family Medicine Geriatric Medicine; Referring Provider Family Medicine Geriatric Medicine; Visit Provider Family Medicine Geriatric Medicine
DX: D50.9 Iron deficiency anemia, unspecified (principal); K90.9 Intestinal malabsorption, unspecified
CPT/HCPCS: 96365; J1756; J7050; A4216

== ENCOUNTER → 2020-02-03 | Outpatient (CLI) | payer MEDICARE, SELFPAY ==
[2020-01-11 08:47] VITALS: BMI 34.9
[2020-02-01 13:58] VITALS: BMI 34.7
[2020-02-03 14:12] VITALS: BP 144/52; PULSE 68; RESP 16; TEMP 35.8; O2SAT 93
[2020-02-03] MEDS: 0.9% NaCl IVPB Med Flush (250 mL) 15 ML IV (14:12)
[2020-02-03] MEDS: 0.9% NaCl Peripheral Flush Adult/Peds IV (14:12)
[2020-02-03 14:51] VITALS: BP 151/53; PULSE 60; RESP 16
== END | disposition home or self-care (01) ==
LOC: MEDOUTP 13:43
PROVIDERS: PCP Family Medicine Geriatric Medicine; Referring Provider Family Medicine Geriatric Medicine; Visit Provider Family Medicine Geriatric Medicine
DX: D50.9 Iron deficiency anemia, unspecified (principal); K90.9 Intestinal malabsorption, unspecified
CPT/HCPCS: 96365; J1756; J7050; A4216

== ENCOUNTER → 2020-02-06 | Outpatient (CLI) | payer MEDICARE, SELFPAY ==
[2020-01-11 08:47] VITALS: BMI 34.9
[2020-02-01 13:58] VITALS: BMI 34.7
[2020-02-06 13:45] VITALS: BP 124/47; PULSE 62; RESP 16; TEMP 36.1; BMI 34.9
[2020-02-06] MEDS: 0.9% NaCl IVPB Med Flush (250 mL) 15 ML IV (14:00)
[2020-02-06 14:50] VITALS: BP 134/43; PULSE 59; TEMP 36.9
== END | disposition home or self-care (01) ==
LOC: MEDOUTP 13:33
PROVIDERS: PCP Family Medicine Geriatric Medicine; Referring Provider Family Medicine Geriatric Medicine; Visit Provider Family Medicine Geriatric Medicine
DX: D50.9 Iron deficiency anemia, unspecified (principal); K90.9 Intestinal malabsorption, unspecified
CPT/HCPCS: 96365; J1756; J7050; A4216

== ENCOUNTER → 2020-02-08 13:43 | Outpatient (CLI) | payer MEDICARE, SELFPAY ==
[2020-01-11 08:47] VITALS: BMI 34.9
[2020-02-07 15:59] VITALS: BMI 34.7
[2020-02-08 13:57] VITALS: BP 168/56; PULSE 59; RESP 18; TEMP 35.9; O2SAT 100; BMI 34.7
[2020-02-08] MEDS: 0.9% NaCl Peripheral Flush Adult/Peds IV (14:21)
[2020-02-08] MEDS: 0.9% NaCl IVPB Med Flush (250 mL) 15 ML IV (14:22)
== END ==
PROVIDERS: PCP Family Medicine Geriatric Medicine; Referring Provider Family Medicine Geriatric Medicine; Visit Provider Family Medicine Geriatric Medicine
DX: D50.9 Iron deficiency anemia, unspecified (principal); K90.9 Intestinal malabsorption, unspecified
CPT/HCPCS: 96365; J1756; J7050; A4216

== ENCOUNTER → 2020-02-10 | Outpatient (CLI) | payer MEDICARE, SELFPAY ==
[2020-01-11 08:47] VITALS: BMI 34.9
[2020-02-08 13:57] VITALS: BMI 34.7
[2020-02-10 14:16] VITALS: BP 144/42; PULSE 62; RESP 16; TEMP 36.1; O2SAT 97; BMI 34.7
[2020-02-10] MEDS: 0.9% NaCl Peripheral Flush Adult/Peds IV (14:30)
[2020-02-10] MEDS: 0.9% NaCl IVPB Med Flush (250 mL) 15 ML IV (14:31)
== END | disposition home or self-care (01) ==
LOC: MEDOUTP 13:48
PROVIDERS: PCP Family Medicine Geriatric Medicine; Referring Provider Family Medicine Geriatric Medicine; Visit Provider Family Medicine Geriatric Medicine
DX: D50.9 Iron deficiency anemia, unspecified (principal)
CPT/HCPCS: 96365; J1756; J7050; A4216

== ENCOUNTER → 2020-05-01 | Outpatient (CLI) | payer MEDICARE, SELFPAY ==
[2019-09-21 13:18] VITALS: BMI 36.3
[2020-02-10 14:16] VITALS: BMI 34.7
[2020-05-01 16:55] LABS: Absolute Lymphocyte Count 2.13 X10^3/uL (0.83-4.51); Absolute Neutrophil Count 8.5 X10^3/uL (2.0-7.7); Basophil# 0.06 X10^3/uL; Basophil% 0.5 % (0-1); Eosinophil# 0.34 X10^3/uL; Eosinophils% 2.9 % (0-5); Hematocrit 35.1 % (37-47); Hemoglobin 10.5 g/dL (12.0-15.0); Lymphocyte # 2.13 X10^3/ul (4.0); Mean Corp Hgb Conc 29.9 g/dL (32-36); Mean Corpuscular Hgb 25.4 pg (27.0-32.0); Mean Corpuscular Volume 84.8 fL (81-99); Mean Platelet Vol. 11.9 fl (6.2-12.0); Monocyte# 0.78 X10^3/uL; Monocyte% 6.6 % (0-10); NRBC Flagged by Analyzer 0 % (0-5); Neutrophil % 71.6 % (47-70); Platelet Count 289 K/mm3 (150-450); RBC Distribution Width CV 16.1 % (11.6-14.6); RBC Distribution Width SD 49.6 fl (35.1-43.9); Red Blood Count 4.14 M/mm3 (4.2-5.4); White Blood Count 11.9 K/mm3 (4.4-11.0)
[2020-05-01 17:12] LABS: Vitamin D,25 Hydroxy 30.4 ng/mL
[2020-05-01 17:26] LABS: ALB/GLOB Ratio 0.9 RATIO (0.9-2.4); AST(SGOT) 15 U/L (15-37); Alanine Aminotransfer ALT/SGPT 24 U/L (13-56); Albumin, Serum 3.4 g/dL (3.2-5.0); Alkaline Phosphatase 87 U/L (45-117); Anion Gap 8 (5-15); BUN 13 mg/dL (7-18); Calcium,Total 8.8 mg/dL (8.5-10.1); Chloride 102 mmol/L (98-107); Creatinine, Serum 0.93 mg/dL (0.55-1.02); EST Glomerular Filtration Rate 62 mL/min (>60); Est Glom Filt Rate - Afr Amer 75 mL/min (>60); Globulin 3.7 g/dL (2.2-4.2); Glucose 227 mg/dL (74-106); Potassium 3.9 mmol/L (3.5-5.1); Protein, Total 7.1 g/dL (6.4-8.2); Sodium Level 139 mmol/L (136-145); Thyroid Stim Hormone (TSH) 0.04 uIU/mL (0.358-3.74)
[2020-05-07 10:27] LABS: T3 Uptake 31 % (30-39); T4 Free Direct 1.02 ng/dL (0.76-1.46)
== END | disposition home or self-care (01) ==
LOC: POLAB3 15:41
PROVIDERS: Family Provider Family Medicine Geriatric Medicine; PCP Family Medicine Geriatric Medicine; Visit Provider Family Medicine Geriatric Medicine
DX: E11.9 Type 2 diabetes mellitus without complications (principal); E55.9 Vitamin D deficiency, unspecified; I10 Essential (primary) hypertension
CPT/HCPCS: 36415; 80053; 82306; 84439; 84443; 84479; 85025

== ENCOUNTER → 2020-05-23 14:56 | Outpatient (CLI) | payer MEDICARE, SELFPAY ==
[2020-05-23 13:33] VITALS: BMI 33.5
[2020-05-23 18:28] LABS: T3 Uptake 33 % (30-39)
== END ==
PROVIDERS: PCP Family Medicine Geriatric Medicine; Visit Provider Family Medicine Geriatric Medicine
DX: E03.9 Hypothyroidism, unspecified (principal)
CPT/HCPCS: 36415; 84439; 84479

== ENCOUNTER 2020-06-11 12:43 | Inpatient (IN) | payer MEDICARE, SELFPAY ==
[2020-05-23 13:33] VITALS: BMI 33.5
[2020-06-11] VITALS (17 sets, daily range): BP systolic 130–183; BP diastolic 59–90; PULSE 51–67; RESP 14–19; TEMP 36.3–36.9; O2SAT 95–99; BMI 33.2; BMI 33.0
--- NOTE | 2020-06-11 13:23 | EKG12_ITS ---
Test Reason : Blood Pressure : / mmHG Vent. Rate : 055 BPM Atrial Rate : 055 BPM P-R Int : 176 ms QRS Dur : 140 ms QT Int : 512 ms P-R-T Axes : 048 -37 108 degrees QTc Int : 489 ms Sinus bradycardia Left axis deviation Left bundle branch block Abnormal ECG Confirmed by JIMMY PEARSON, VALERIA ([id number]), editorial writer JENIFER WALLACE ([id number]) on 06/12/2020 9:27:14 AM Referred By: LAVELLE Confirmed By:VALERIA MARQUEZ MD
--- NOTE | 2020-06-11 13:23 | RAD_ITS ---
STUDY: X-RAY CHEST REASON FOR EXAM: Female, 80 years old. CP x 1 week, SOB TECHNIQUE: Single AP portable view of the chest. COMPARISON: Comparison is made with prior examination dated 01/09/2020. FINDINGS: EKG electrodes are seen. There is evidence of vascular congestion and mild degree of CHF. There is no demonstrated pleural abnormality. There is borderline cardiomegaly. Normal mediastinum and twila. Normal visualized pulmonary arteries. There is atherosclerotic calcification of the aortic arch with tortuosity. Normal visualized thoracic spine. There is degenerative osteoarthritis of the bilateral shoulders. There is no demonstrated abnormality of the visualized soft tissue structures of the upper abdomen. RAD/Chest 1 View (Portable) IMPRESSION: Findings in keeping with a mild degree of CHF. Electronically Signed: Crow Avalos, at 14:00 EDT , Service support ,
--- NOTE | 2020-06-11 13:24 | ED.DCSUM_ITS ---
History of Present Illness Chief Complaint: Chest Pain Informant: Patient Onset: Weeks - 1 Activity at onset: Rest Timing: Continuous Quality: Tightness Location: Substernal Current Severity: Mild, Moderate Maximum Severity: Moderate Worsened By: Nothing. Not Worsened By: Movement of Arm, Movement of Torso, Breathing, Coughing Relieved By: NTG Associated Symptoms: Dyspnea. Negative for: Nausea, Vomiting, Diaphoresis, Cough, Fever, Lightheadedness, Palpitations Narrative: Patient states she has been having exertional dyspnea along with chest tightness for the last week or so. It has become worse over the last couple days. She found herself taking nitroglycerin and making everything improved temporarily. She has chronic swelling in her legs that is unchanged. She has chronic orthopnea that is unchanged. No cough, fevers, chills. She does feel achy all over at times. The chest discomfort radiates into her upper back. She states that she had a routine cardiology follow-up visit a couple weeks ago, she had a murmur that was not heard before, they scheduled her for some tests and another appointment that she is supposed to have tomorrow. History of 2 stents, the last one was placed over 10 years ago. - Past Medical History (1) Anxiety and depression Status: Chronic (2) Atherosclerotic heart disease of [place] coronary artery without angina pectoris Status: Chronic Comment: PTCA/stent to mid first Diagonal 12/21/03; PTCA/stent to mid Diagonal 07/02/07 (3) Grade II diastolic dysfunction Status: Chronic (4) HLD (hyperlipidemia) Status: Chronic (5) Ischemic cardiomyopathy Status: Chronic Comment: EF in February 2019 is 55% with stage II diastolic dysfunction. (6) Left bundle branch block Status: Chronic (7) Normocytic anemia Status: Chronic (8) PAD (peripheral artery disease) Status: Chronic (9) Type II diabetes mellitus Status: Chronic Past Medical History - Allergies and Home Meds Allergies/Adverse Reactions: Allergies latex Allergy (Verified 06/11/20 12:44) Rash Primary Care Physician: Riley Roca Chi, MD [Primary Care Provider] - Surgical History: - - Carpal tunnel surgery, PCI, cholecystectomy, knee surgery, hysterectomy. Smoking Status: Never smoker - Family History Maternal Family History: Family History (Last Reviewed 05/23/20 @ 13:35 by Penelope Hughes) Father CVA (cerebral vascular accident) Mother Heart disease CAD (coronary artery disease) Sister CAD (coronary artery disease) Daughter CAD (coronary artery disease) Myocardial infarction Daughter Diabetes Family History: Reports: High Cholesterol, Heart Disease, Hypertension Paternal Family History: Family History (Last Reviewed 05/23/20 @ 13:35 by Penelope Hughes) Father CVA (cerebral vascular accident) Mother Heart disease CAD (coronary artery disease) Sister CAD (coronary artery disease) Daughter CAD (coronary artery disease) Myocardial infarction Daughter Diabetes Family History: Reports: Stroke Review of Systems General: Denies: Chills, Fever, Sweats Eyes: Denies: Visual changes - bilaterally, Diplopia ENT: Denies: Rhinorrhea, Sore throat Cardiovascular: Reports: Chest pain. Denies: Palpitations, Heart racing Respiratory: Reports: Dyspnea, Dyspnea on exertion, Orthopnea. Denies: Cough Gastrointestinal: Reports: Melena - Chronic black stool, not necessarily melanotic/loose, but not hard. Denies: Abdominal pain, Nausea, Vomiting, Diarrhea, Hematochezia Genitourinary: Denies: Dysuria, Hematuria, Frequency Musculoskeletal: Reports: Swelling. Denies: Neck pain, Back pain, Extremity Pain Skin: Denies: Rash, Wounds Neurological: Denies: Headache, Weakness, Numbness Physical Exam Vital Signs/Narrative: Vital Signs Temp Pulse Resp BP Pulse Ox 06/11/20 12:44 97.4 F L 60 18 148/66 H 98 Inital Vital Signs reviewed: Yes General: Well nourished, Well developed, No Acute Distress Head: Normocephalic, Atraumatic Eyes: Perrl, EOMI ENT: Moist mucous membranes, No rhinorrhea Neck: Supple, Nontender, No lymphadenopathy, No JVD Cardiovascular: Regular rate, Regular rhythm, Murmur - Soft systolic, - - Equal bilateral 2+/4 radial pulses Respiratory: No distress, CTA bilaterally, Chest nontender Abdomen: Soft, Nontender, Nondistended, Normal bowel sounds Rectal: Nontender - Nonbloody non-melanotic stool present. Back: Nontender, Normal Inspection. Negative for: CVA tenderness Extremities: Nontender, Edema - Nonpitting 1+ both lower extremities midshin, symmetric. Negative for: Calf Tenderness Skin: Normal color, No rash, No Trauma Neurological: Alert, Oriented x3, Cranial nerves II-XII grossly intact, Normal Strength, Normal Sensation Psychological: Normal affect, Normal Mood Diagnostic/Tx/Re-eval Impressions Chest X-Ray 06/11/20 13:23 IMPRESSION: Findings in keeping with a mild degree of CHF. Electronically Signed: Crow Avalos, at 14:00 EDT , Service support , 06/11/20 13:23 Chest 1 View (Portable) [RAD] Stat Laboratory Results 06/11/20 06/11/20 06/11/20 13:35 13:35 13:35 WBC 9.5 RBC 3.25 L Hgb 7.9 L Hct 26.8 L MCV 82.5 MCH 24.3 L MCHC 29.5 L RDW Std Deviation 49.7 H RDW Coeff of Aubrie 16.7 H Plt Count 233 MPV 11.6 Immature Gran % (Auto) 0.600 Neut % (Auto) 72.5 H Lymph % (Auto) 16.3 L Lea % (Auto) 7.4 Eos % (Auto) 2.6 Baso % (Auto) 0.6 Absolute Neuts (auto) 6.9 Absolute Lymphs (auto) 1.55 Nucleated RBC % 0 Sodium 140 Potassium 4.1 Chloride 108 H Carbon Dioxide 28.0 Anion Gap 4 L BUN 11 Creatinine 0.75 Estim Creat Clear Calc 32.23 Est GFR (MDRD) Af Amer 96 Est GFR (MDRD) Non-Af 79 BUN/Creatinine Ratio 14.7 Glucose 203 H Calcium 9.0 Troponin I 0.027 B-Natriuretic Peptide 430.8 H - Rhythm Strip Rhythm Strip: Sinus Rhythm Rate: 55 Ectopy: None - EKG Initial EKG Interpretation: Sinus Rhythm, No Acute Injury Pattern, LBBB Prior: Unchanged Treatment: Aspirin, NTG SL Repeat Eval: 10/28 - improved DAO Risk: Age >/= 65, H/O CAD, ASA within 7 days Score: 3 - Medical Decision Making Her EKG shows a stable left bundle branch block. Cardiac enzymes are negative. Her chest discomfort almost completely resolved after nitroglycerin. She was given a dose of Lasix after seeing signs of congestive heart failure on her x- ray and symptoms of this as well. She ambulated and did not become hypoxic. Her hemoglobin is very low, my concern is that this could be contributing to her congestive heart failure and her symptoms. She states her stools are always black but not necessarily melanotic. I sent a Hemoccult that is pending at this time. Her last echocardiogram showed stage II diastolic function with an ejection fraction of 55%. That was planned on being repeated here I think tomorrow. Discussed with her security incident response engineer who agrees with admitting her, getting the echo tomorrow, ruling her out for acute coronary syndrome, and transfusing her with blood which may help her symptoms. Patient is amenable to the plan, discussed with hospitalist for PCU admission. Of note, the patient takes aspirin, no anticoagulants. ED Disposition - Plan for ED Patient: Disposition: Acute Care Hospital [facility] Diagnosis: Chest pain, unspecified, Acute on chronic diastolic (congestive) heart failure, Anemia Referrals: Riley Roca Chi, MD [Primary Care Provider] -
[2020-06-11] MEDS: Aspirin 81 MG TAB.CHEW 324 MG PO (13:43)
[2020-06-11 14:02] LABS: Anion Gap 4 (5-15); BUN 11 mg/dL (7-18); BUN/Creat Ratio 14.7 RATIO (10-20); Chloride 108 mmol/L (98-107); Creatinine, Serum 0.75 mg/dL (0.55-1.02); EST Glomerular Filtration Rate 79 mL/min (>60); Est Glom Filt Rate - Afr Amer 96 mL/min (>60); Estimated Creatinine Clearance 32.23 ml/min; Glucose 203 mg/dL (74-106); Potassium 4.1 mmol/L (3.5-5.1); Sodium Level 140 mmol/L (136-145)
[2020-06-11] MEDS: Nitroglycerin SL (ED/IMG/CATH) 0.4 MG TABLET SUBLINGUAL (14:13)
[2020-06-11 14:14] LABS: Absolute Lymphocyte Count 1.55 X10^3/uL (0.83-4.51); Absolute Neutrophil Count 6.9 X10^3/uL (2.0-7.7); Basophil# 0.06 X10^3/uL; Basophil% 0.6 % (0-1); Eosinophil# 0.25 X10^3/uL; Eosinophils% 2.6 % (0-5); Hematocrit 26.8 % (37-47); Hemoglobin 7.9 g/dL (12.0-15.0); Lymphocyte # 1.55 X10^3/ul (4.0); Lymphocyte % 16.3 % (19-41); Mean Corp Hgb Conc 29.5 g/dL (32-36); Mean Corpuscular Hgb 24.3 pg (27.0-32.0); Mean Corpuscular Volume 82.5 fL (81-99); Mean Platelet Vol. 11.6 fl (6.2-12.0); Monocyte% 7.4 % (0-10); NRBC Flagged by Analyzer 0 % (0-5); Neutrophil % 72.5 % (47-70); Platelet Count 233 K/mm3 (150-450); RBC Distribution Width CV 16.7 % (11.6-14.6); RBC Distribution Width SD 49.7 fl (35.1-43.9); Red Blood Count 3.25 M/mm3 (4.2-5.4); White Blood Count 9.5 K/mm3 (4.4-11.0)
[2020-06-11] MEDS: Furosemide 40 MG/4 ML Vial IV (15:34)
[2020-06-11 16:06] LABS: BNP,B-Type NATRIURETIC PEPTIDE 430.8 pg/mL (0-100)
--- NOTE | 2020-06-11 17:15 | NURSING ---
DR ORTIZ FOR DR VALDERRAMA
--- NOTE | 2020-06-11 17:21 | NURSING ---
PCU WHITE CP, ACUTE ON CHRONIC DIASTOLIC CHF, ANEMIA
--- NOTE | 2020-06-11 17:37 | HP.PCM_ITS ---
Problem List (1) Anemia due to chronic blood loss Status: Acute (2) Acute on chronic diastolic (congestive) heart failure Status: Acute (3) Obesity (BMI 30-39.9) Status: Chronic (4) Anxiety and depression Status: Chronic (5) Ischemic cardiomyopathy Status: Chronic Comment: EF in February 2019 is 55% with stage II diastolic dysfunction. (6) CAD (coronary artery disease) Status: Chronic Qualifiers: Coronary Disease-Associated Artery/Lesion type: [place] artery (7) Type II diabetes mellitus Status: Chronic (8) HLD (hyperlipidemia) Status: Chronic Qualifiers: Hyperlipidemia type: unspecified Qualified Code(s): E78.5 - Hyperlipidemia, unspecified (9) History of pulmonary embolus (PE) Status: Chronic (10) History of coronary artery stent placement Status: Chronic Comment: PTCA/stent to mid first Diagonal 12/21/03; PTCA/stent to mid Diagonal 07/02/07 History of Present Illness Date of Admission: 06/11/20 Chief Complaint: CP, SOB The patient is a 80 year old F with pmhx of diastolic CHF, ischemic CM, CAD, pt of Dr. Billy, chronic blood loss anemia with unclear GI source x 10 years, who presented to the ER with c/o CP and SOB. The patient has been having chest pain she describes as tightness like a too tight bra across both sides of her chest worse on the left. She has been taking nitro every day for it with relief. She has been progressively more SOB this week as well, worse with exertion, and worse lying flat. She has had intermittent LE edema. She however does not think she has gained any weight recently. Her blood counts are low today with a Hgb of 7.9 however she is chronically low due to a slow GI bleed that she has had for at least ten years. She states this has had extensive workup in the past with no clear source and periodically requires iron infusions as she is a poor absorber of oral. She was seen by Dr. Billy 05/23 and a new murmur was detected with plans for an echo tomorrow as an outpatient. 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 CAD (coronary artery disease) (Chronic) Type II diabetes mellitus (Chronic) HLD (hyperlipidemia) (Chronic) History of pulmonary embolus (PE) (Chronic) History of coronary artery stent placement (Chronic) PTCA/stent to mid first Diagonal 12/21/03; PTCA/stent to mid Diagonal 07/02/07 NSTEMI (non-ST elevated myocardial infarction) (Chronic) Medical History: Medical History (Last Reviewed 05/23/20 @ 13:35 by Penelope Hughes) PAD (peripheral artery disease) (Chronic) I73.9 Atherosclerotic heart disease of [place] coronary artery without angina pectoris (Chronic) I25.10 PTCA/stent to mid first Diagonal 12/21/03; PTCA/stent to mid Diagonal 07/02/07 Left bundle branch block (Chronic) I44.7 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 Anemia due to chronic blood loss (Chronic) D50.0 CAD (coronary artery disease) (Chronic) I25.10 Type II diabetes mellitus (Chronic) E11.9 HLD (hyperlipidemia) (Chronic) E78.5 History of pulmonary embolus (PE) (Chronic) Z86.711 NSTEMI (non-ST elevated myocardial infarction) (Chronic) I21.4 Anemia D64.9 Arthritis M19.90 Cancer C80.1 Diabetes E11.9 Intermittent claudication I73.9 Migraine G43.909 HTN (hypertension) I10 Acute on chronic combined systolic and diastolic CHF (congestive heart failure) (Resolved) I50.43 Acute on chronic diastolic heart failure (Resolved) I50.33 Bronchitis (Resolved) J40 Chest pain R07.9 Cough (Resolved) R05 Edema R60.9 SOB (shortness of breath) R06.02 Heart disease I51.9 Allergies latex Allergy (Verified 06/11/20 12:44) Rash Home Medications: Ambulatory Orders Medication Instructions Recorded Nitroglycerin (INPATIENT USE) 0.4 mg SUBLINGUAL Q5M PRN 01/25/15 [Nitrostat] Insulin Glargine,Hum.rec.anlog 80 unit SQ DAILY 11/05/15 [Toujeo Solostar] Sertraline HCl 100 mg PO DAILY 02/26/19 insulin lispro 100 unit/mL 10 unit SC TIDCM PRN 02/07/20 subcutaneous pen Albuterol Sulfate [Albuterol 2 puff INHALATION BID 06/11/20 Sulfate HFA] Aspirin E.C. [Ecotrin] 162 mg PO DAILY@0800 06/11/20 Atenolol 50 mg PO DAILY 06/11/20 Atorvastatin Calcium [Lipitor] 20 mg PO DAILY 06/11/20 Furosemide 40 mg PO BID 06/11/20 Isosorbide Mononitrate [Isosorbide 30 mg PO DAILY 06/11/20 Mononitrate ER] Lisinopril [Zestril] 40 mg PO DAILY 06/11/20 Multivitamin 1 tab PO DAILY 06/11/20 Surgical History: Surgical History (Last Reviewed 05/23/20 @ 13:35 by Penelope Hughes) History of coronary artery stent placement (Chronic) Z95.5 PTCA/stent to mid first Diagonal 12/21/03; PTCA/stent to mid Diagonal 07/02/07 H/O: hysterectomy (Resolved) Z90.710 History of carpal tunnel release (Resolved) Z98.890 Hx of cholecystectomy (Resolved) Z90.49 Hx of knee surgery (Resolved) Z98.890 Surgical History: - - Carpal tunnel surgery, PCI, cholecystectomy, knee surgery, hysterectomy. 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 history Lives: Alone Smoking Status: Never smoker Tobacco Use: Non-smoker Alcohol: None Drugs: None - *Family History Maternal Family History: Family History (Last Reviewed 05/23/20 @ 13:35 by Penelope Hughes) Father CVA (cerebral vascular accident) Mother Heart disease CAD (coronary artery disease) Sister CAD (coronary artery disease) Daughter CAD (coronary artery disease) Myocardial infarction Daughter Diabetes History Items: High Cholesterol, Heart Disease, Hypertension Paternal Family History: Family History (Last Reviewed 05/23/20 @ 13:35 by Penelope Hughes) Father CVA (cerebral vascular accident) Mother Heart disease CAD (coronary artery disease) Sister CAD (coronary artery disease) Daughter CAD (coronary artery disease) Myocardial infarction Daughter Diabetes History Items: Stroke Review of Systems Constitutional: Denies: Chills, Fever, Weight Change HEENT: Denies: Head Aches, Sinus Congestion, Sinus Drainage Cardiovascular: Reports: Chest Pain, Chest Tightness, Edema, Orthopnea. Denies: Heaviness, Light Headedness, Palpitations Respiratory: Reports: Shortness of Breath, Shortness of breath at rest, Shortness of breath upon exertion. Denies: Cough, Sputum production, Wheezing Gastrointestinal: Denies: Abdominal Pain, Nausea, Vomiting Genitourinary: Denies: Dysuria, Frequency, Urgency Musculoskeletal: Denies: Joint Pain, Joint Tenderness Skin: Denies: Lesions, Rash, Wounds Neurological: Denies: Numbness, Tingling, Focal weakness Psychiatric: Denies: Anxiety, Depression, Homicidal Ideations, Suicidal Ideations Hematologic/ Lymphatic: Denies: Easy Bruising, Easy Bleeding VTE Information - Inpt Only VTE Present on Admission: No VTE Mechan Device Prophylaxis: SCD's VTE Pharm Prophylaxis ordered?: No Patient Problems: Active and Suspected Problems (Last Reviewed 05/23/20 @ 13:35 by Penelope Hughes) Chest pain, unspecified (Acute) Anemia (Acute) Acute on chronic diastolic (congestive) heart failure (Acute) - Physical Exam Vitals/I&O's: Vital Signs Temp Pulse Resp BP Pulse Ox 97.4 F L 59 L 14 176/65 H 99 06/11/20 12:44 06/11/20 17:10 06/11/20 17:10 06/11/20 17:10 06/11/20 17:10 Oxygen Delivery Method Room Air Weight: 170 lb Body Mass Index (BMI) 33.2 Finger Stick Blood Glucose 181 General: Alert, Oriented x3, Cooperative HEENT: Atraumatic, PERRLA, EOMI, Normocephalic Neck: Supple, No JVD, Negative Carotid Bruits Lungs: Diminished, Rales - L base Cardiovascular: Regular rate, Murmur - 3/6 systolic murmur LSB with s3 audible Abdomen: Bowel Sounds Present, Soft, Non Tender Extremities: Edema - 1+ pitting edema BLE Skin: No rashes, No breakdown, - - generalized pallor Musculoskeletal: No Tenderness to Palpation of Joints or Extremities Neurological: Cranial nerves II-XII grossly intact Psych/Mental Status: Normal Affect, Appropriate, Alert and oriented to time, place, person, mood and affect Laboratory Results 06/11/20 13:35: WBC 9.5, RBC 3.25 L, Hgb 7.9 L, Hct 26.8 L, MCV 82.5, MCH 24.3 L , MCHC 29.5 L, RDW Std Deviation 49.7 H, RDW Coeff of Aubrie 16.7 H, Plt Count 233, MPV 11.6, Immature Gran % (Auto) 0.600, Neut % (Auto) 72.5 H, Lymph % (Auto) 16.3 L, Monona % (Auto) 7.4, Eos % (Auto) 2.6, Baso % (Auto) 0.6, Absolute Neuts (auto) 6.9, Absolute Lymphs (auto) 1.55, Nucleated RBC % 0 06/11/20 13:35: Sodium 140, Potassium 4.1, Chloride 108 H, Carbon Dioxide 28.0, Anion Gap 4 L, BUN 11, Creatinine 0.75, Estim Creat Clear Calc 32.23, Est GFR (MDRD) Af Amer 96, Est GFR (MDRD) Non-Af 79, BUN/Creatinine Ratio 14.7, Glucose 203 H, Calcium 9.0, Troponin I 0.027 06/11/20 13:35: B-Natriuretic Peptide 430.8 H Current Medications Nitroglycerin (Nitrostat) 0.4 mg SUBLINGUAL Q5M PRN PRN Reason: Chest pain Last Admin: 06/11/20 14:13 Dose: 0.4 mg Documented by: Assessment/Plan All Active Problems (Last Reviewed 05/23/20 @ 13:35 by Penelope Hughes) Chest pain, unspecified (Acute) Anemia (Acute) Heme positive stool (Acute) Acute on chronic diastolic (congestive) heart failure (Acute) Hypertensive emergency (Acute) Anemia due to chronic blood loss (Acute) Acute on chronic combined systolic and diastolic CHF (congestive heart failure) (Resolved) Acute on chronic diastolic heart failure (Resolved) Bronchitis (Resolved) Cough (Resolved) H/O: hysterectomy (Resolved) History of carpal tunnel release (Resolved) Hx of cholecystectomy (Resolved) Hx of knee surgery (Resolved) Pneumonia (Resolved) 1. Acute on chronic diastolic CHF - complicated by significant anemia. Continue IV lasix. Trend I/O. Obtain Echo. T/C 1 unit prbc. This may be anemia and not true CHF. 2. CP in the setting of CAD and ischemic CM - EKG with LBBB and small ST elevation in V1/V2 however these are similar to prior EKG, no new acute changes. Negative troponin. Will cycle. Repeat AM EKG. Cardiology consult. Continue aspirin, atenolol, imdur, lisinopril, statin 3. Acute on chronic blood loss anemia with iron deficiency - 2/2 GI bleed unclear. This has been present for ten years with extensive workup. No plan for workup. ER plans to type and cross 1 unit prbc. Check iron studies and replete if necessary. 4. HTN - markedly elevated, add hydralazine prn 5. Hx PE - complicated by #2, not on full anticoagulation. 6. DMt2 - continue long acting insulin + SSI 7. Depression/Anxiety - sertraline. DVT ppx: SCDs This patient was seen by Kaleb Kwok PA-C under the supervision of Dr. Ruiz.
--- NOTE | 2020-06-11 18:13 | ECHOD_ITS ---
Reason For Study: ARRHYTHMIA Procedure This was a 2D Doppler, Color Flow transthoracic echocardiogram. The exam was of adequate technical quality. Exam performed portable in patient room. Left Ventricle Normal LV size. Left ventricular systolic function is normal. The estimated ejection fraction is 55 %. Septal motion consistent with IVCD. There is evidence of diastolic dysfunction. No regional wall motion abnormalities noted. Right Ventricle Normal RV size. Normal systolic function. Atria The left atrium is mildly enlarged. Normal right atrium. No doppler evidence for ASD. Mitral Valve There is mild to moderate mitral annular calcification. Mild focal mitral valve calcification of the anterior leaflet. The mitral valve chordae are thickened and/or calcified. Mild mitral valve stenosis. Moderate (2+) mitral valve insufficiency. Tricuspid Valve Normal tricuspid valve. Mild tricuspid valve insufficiency. Right ventricular systolic pressure estimated to be 41 mmHg. Aortic Valve Trisinus/trileaflet aortic valve. Moderate focal aortic valve thickening. Mild focal aortic valve calcification. Aortic sclerosis, no stenosis. Pulmonic Valve The pulmonic valve is not well visualized. Trivial pulmonic valve insufficiency. Great Vessels Normal sized aortic root. Pericardium/Pleural No pericardial effusion. MMode/2D Measurements & Calculations LVIDd: 4.9 cm IVSd: 1.2 cm LVOT diam: 2.0 cm LVIDs: 3.5 cm LVPWd: 1.1 cm LVOT area: 3.2 cm2 RVDd: 3.5 cm FS: 29.6 % Ao root diam: 3.3 cm LAV(MOD-bp): 79.3 ml LVAd ap4: 32.4 cm2 LAV(MOD-bp) Indexed: 45.6 ml/m2 EDV(MOD-sp4): 111.0 ml LAV(MOD-sp2): 97.9 ml EDV(sp4-el): 112.5 ml LAV(MOD-sp4): 65.4 ml LVAs ap4: 20.7 cm2 ESV(MOD-sp4): 52.8 ml ESV(sp4-el): 52.8 ml EF(MOD-sp4): 52.4 % EF(sp4-el): 53.0 % SV(MOD-sp4): 58.2 ml SV(sp4-el): 59.6 ml LA A4 area: 20.9 cm2 LA dimension(2D): 4.5 cm RA A4 area: 12.8 cm2 Time Measurements MV dec time: 0.15 sec Doppler Measurements & Calculations MV E max robel: 121.4 cm/sec Lat Peak E' Robel: 6.2 cm/sec Med Peak E' Robel: 3.5 cm/sec MV A max robel: 166.7 cm/sec E/E' lat: 19.6 E/E' med: 34.8 MV E/A: 0.73 MV V2 max: 150.9 cm/sec Ao V2 max: 148.2 cm/sec LV V1 max: 99.0 cm/sec MV max P.1 mmHg Ao max P.8 mmHg LV V1 max P.9 mmHg MV V2 mean: 102.9 cm/sec Ao V2 mean: 113.3 cm/sec LV V1 mean P.5 mmHg MV mean P.6 mmHg Ao mean P.5 mmHg LV V1 mean: 76.0 cm/sec MV V2 VTI: 42.5 cm Ao V2 VTI: 35.6 cm LV V1 VTI: 25.4 cm MVA(VTI): 1.9 cm2 FABRIZIO(I,D): 2.3 cm2 FABRIZIO(V,D): 2.1 cm2 SV(LVOT): 80.6 ml PA V2 max: 112.5 cm/sec TR max robel: 308.5 cm/sec TR max P.3 mmHg MV P1/2t-pr_phl: 85.0 msec Interpretation Summary Left ventricular systolic function is normal. The estimated ejection fraction is 55 %. Septal motion consistent with IVCD. The left atrium is mildly enlarged. There is mild to moderate mitral annular calcification. Mild focal mitral valve calcification of the anterior leaflet. The mitral valve chordae are thickened and/or calcified. Mild mitral valve stenosis. Moderate (2+) mitral valve insufficiency. Mild tricuspid valve insufficiency. Aortic sclerosis, no stenosis. Trivial pulmonic valve insufficiency. Right ventricular systolic pressure estimated to be 41 mmHg. There is evidence of diastolic dysfunction. Ordering Physician: Ysabel Ruiz Referring Physician: JACQUELIN LIANG Performed By: Isidra Cuenca, FELIPE, RVT
--- NOTE | 2020-06-11 18:51 | EKG12_ITS ---
Test Reason : CP ADMIIT Blood Pressure : / mmHG Vent. Rate : 062 BPM Atrial Rate : 062 BPM P-R Int : 182 ms QRS Dur : 142 ms QT Int : 504 ms P-R-T Axes : 054 -31 137 degrees QTc Int : 511 ms Normal sinus rhythm Left axis deviation Left bundle branch block Abnormal ECG When compared with ECG of 11-JUN-2020 12:50, MANUAL COMPARISON REQUIRED, DATA IS UNCONFIRMED Confirmed by ILANA CROOK ([id number]), photographic editor MANUELA DORADO ([id number]) on 06/14/2020 9:06:13 AM Referred By: DR ORTIZ Confirmed By:ILANA CROOK
[2020-06-11] MEDS: Albuterol 2.5 MG/3 ML VIAL.NEB. INHALATION (19:40)
[2020-06-11 20:09] LABS: Ferritin 39 ng/mL (8-252); Iron 54 ug/dL (50-170); Iron Binding Capacity,Total 597 ug/dL (250-450); Magnesium 2.2 mg/dL (1.6-2.6)
[2020-06-11 22:35] LABS: Bedside Glucose 237 mg/dL (70-110)
[2020-06-11] MEDS: 0.9% Saline Lock 10 ML Syringe IV (22:55)
[2020-06-11] MEDS: Insulin Lispro 100 UNIT/ML INSULN.PEN SC (22:55)
[2020-06-12] VITALS (13 sets, daily range): BP systolic 149–185; BP diastolic 46–84; PULSE 58–69; RESP 14–18; TEMP 36.7–36.8; O2SAT 94–100
[2020-06-12] MEDS: 0.9% Saline Lock 10 ML Syringe IV ×2 (01:22→06:52)
[2020-06-12 04:36] LABS: AST(SGOT) 14 U/L (15-37); Alanine Aminotransfer ALT/SGPT 21 U/L (13-56); Albumin, Serum 3.2 g/dL (3.2-5.0); Alkaline Phosphatase 81 U/L (45-117); Anion Gap 7 (5-15); BUN 13 mg/dL (7-18); BUN/Creat Ratio 18.9 RATIO (10-20); Calcium,Total 8.7 mg/dL (8.5-10.1); Chloride 103 mmol/L (98-107); Cholesterol 89 mg/dL (200); Creatinine, Serum 0.69 mg/dL (0.55-1.02); EST Glomerular Filtration Rate 87 mL/min (>60); Est Glom Filt Rate - Afr Amer 106 mL/min (>60); Estimated Creatinine Clearance 32.23 ml/min; Globulin 3.3 g/dL (2.2-4.2); Glucose 175 mg/dL (74-106); High Density Lipoprotein 29 mg/dL; Potassium 3.7 mmol/L (3.5-5.1); Protein, Total 6.5 g/dL (6.4-8.2); Sodium Level 140 mmol/L (136-145); Thyroid Stim Hormone (TSH) 0.07 uIU/mL (0.358-3.74); Triglycerides 154 mg/dL; Very Low Density Lipoprotein 31 mg/dL (5-40)
--- NOTE | 2020-06-12 05:55 | EKG12_ITS ---
Test Reason : AM EKG Blood Pressure : / mmHG Vent. Rate : 061 BPM Atrial Rate : 061 BPM P-R Int : 128 ms QRS Dur : 144 ms QT Int : 508 ms P-R-T Axes : 028 -39 112 degrees QTc Int : 511 ms Normal sinus rhythm Left axis deviation Left bundle branch block Abnormal ECG When compared with ECG of 11-JUN-2020 19:54, MANUAL COMPARISON REQUIRED, DATA IS UNCONFIRMED Confirmed by ILANA CROOK ([id number]), loan expeditor MANUELA DORADO ([id number]) on 06/14/2020 9:14:07 AM Referred By: DIANA Confirmed By:ILANA CROOK
[2020-06-12] MEDS: Insulin Lispro 100 UNIT/ML INSULN.PEN SC ×4 (06:36→21:07)
[2020-06-12] MEDS: Albuterol 2.5 MG/3 ML VIAL.NEB. INHALATION ×2 (06:49→13:10)
[2020-06-12] MEDS: hydrALAZINE 20 MG/ML Vial 10 MG IV (06:52)
[2020-06-12] MEDS: Aspirin E.C. 81 MG Tablet 162 MG PO (09:00)
[2020-06-12] MEDS: Atenolol 50 MG Tablet PO (09:01)
[2020-06-12] MEDS: Sertraline 100 MG Tablet PO (09:01)
[2020-06-12] MEDS: Lisinopril 40 MG Tablet PO (09:01)
[2020-06-12] MEDS: Atorvastatin Calcium 20 MG Tablet PO (09:01)
[2020-06-12] MEDS: Isosorbide Mononitrate 30 MG Tablet PO (09:01)
[2020-06-12 09:10] LABS: Bedside Glucose 150 mg/dL (70-110)
[2020-06-12 09:14] LABS: Absolute Lymphocyte Count 1.98 X10^3/uL (0.83-4.51); Absolute Neutrophil Count 7.6 X10^3/uL (2.0-7.7); Basophil# 0.06 X10^3/uL; Basophil% 0.6 % (0-1); Eosinophil# 0.23 X10^3/uL; Eosinophils% 2.2 % (0-5); Hematocrit 31.3 % (37-47); Hemoglobin 9.4 g/dL (12.0-15.0); Lymphocyte # 1.98 X10^3/ul (4.0); Lymphocyte % 18.7 % (19-41); Mean Corpuscular Volume 83.2 fL (81-99); Mean Platelet Vol. 11.2 fl (6.2-12.0); Monocyte# 0.69 X10^3/uL; Monocyte% 6.5 % (0-10); NRBC Flagged by Analyzer 0 % (0-5); Neutrophil # 7.58 X10^3/uL (2.7-7.7); Neutrophil % 71.5 % (47-70); Platelet Count 232 K/mm3 (150-450); RBC Distribution Width CV 17.3 % (11.6-14.6); Red Blood Count 3.76 M/mm3 (4.2-5.4); White Blood Count 10.6 K/mm3 (4.4-11.0)
[2020-06-12] MEDS: Furosemide 40 MG/4 ML Vial IV ×2 (10:30→17:58)
--- NOTE | 2020-06-12 11:02 | CASEMGMT ---
JUDSON ANDERSON assessment: Face to Face with patient for initial transition planning/care coordination assessment. JUDSON ANDERSON introduced self and role at [facility], pt voices understanding and consents to assessment at this time. Pt is sitting up in chair in no distress at this time. Pt is A/Ox4 at this time and answers all questions appropriately at this time. Care providers, pharmacy, and demographics verified at this time. Presentation: CP started last week with SOB Admitting dx: Acute CHF exac PCP: Abelino Specialists: Wenceslao cardio Preferred [facility]acy: [facility] Insurance: [facility] Prescription Benefit: [facility] Living Will/HPOA: Pt has LW/HPOA and they are on file at [facility] at this time. Pt states that her daughter, Ailyn Vazquez, is HPOA. LNOK: Ailyn Vazquez, daughter/HPOA; Laury Garcia, daughter Living Arrangements: Pt states lives alone in 1 story apartment and states no concerns at home at this time. Pt states is independent with ADL's. Transportation: Pt states drives self or daughters drive and states no transportation concerns at this time. DME/HHC: Pt states has the following DME: cane, walker, and grab bars. Pt states no need for any further DME at this time. Pt states no hx of HHC or SNF in the past. Pt states no concerns with going home at time of discharge. Pt is retired. Pt states does not smoke or drink ETOH. Pt states no further concerns/needs at this time. CM to follow for any further discharge planning/needs. Advised pt to ask for CM if any further questions/concerns/needs arise, voices understanding. Pt Goal: Home Plan: [place] JUDSON ANDERSON
--- NOTE | 2020-06-12 11:13 | PN_ITS ---
Patient Problems: Active and Suspected Problems (Last Reviewed 05/23/20 @ 13:35 by Penelope Hughes) Chest pain, unspecified (Acute) Anemia (Acute) Acute on chronic diastolic (congestive) heart failure (Acute) Reason for Visit: Chest pain resolved. Patient's breathing has improved overnight. She has had increased urinary output as expected. No fevers or chills. No lightheadedness or dizziness, no palpitations. Minimal lower extremity edema. No increased oxygen demand. No headache or vision changes. Vitals/I&O's: Vital Signs Temp Pulse Resp BP Pulse Ox 98.2 F 69 18 154/65 H 97 06/12/20 08:57 06/12/20 08:57 06/12/20 08:57 06/12/20 08:57 06/12/20 08:57 Oxygen Delivery Method Room Air Weight: 165 lb 2.02 oz Body Mass Index (BMI) 33.2 Finger Stick Blood Glucose 181 Intake and Output for Last 24 Hours 06/10/20 06/11/20 06/12/20 23:59 23:59 23:59 Intake Total 240 / 240 520 / 520 Output Total 200 / 200 600 / 600 Balance 40 / 40 -80 / -80 General: Alert, Oriented x3, Cooperative HEENT: Atraumatic, PERRLA, EOMI, Normocephalic Neck: Supple, No JVD, Negative Carotid Bruits Lungs: Normal air movement, Rales - BL bases Cardiovascular: Regular rate, Murmur - no change Abdomen: Bowel Sounds Present, Soft, Non Tender Extremities: Capillary Refill Less than 3 Seconds, Edema - 1+ pitting edema BLE Skin: No rashes, No breakdown Musculoskeletal: No Tenderness to Palpation of Joints or Extremities Neurological: Cranial nerves II-XII grossly intact Psych/Mental Status: Normal Affect, Appropriate, Alert and oriented to time, place, person, mood and affect Microbiology Past 72 Hours 06/11/20 16:40 Stool Stool Occult Blood (JEFFERY) - Final Occult Blood Positive Laboratory Results 06/11/20 13:35: WBC 9.5, RBC 3.25 L, Hgb 7.9 L, Hct 26.8 L, MCV 82.5, MCH 24.3 L , MCHC 29.5 L, RDW Std Deviation 49.7 H, RDW Coeff of Aubrie 16.7 H, Plt Count 233, MPV 11.6, Immature Gran % (Auto) 0.600, Neut % (Auto) 72.5 H, Lymph % (Auto) 16.3 L, [place] % (Auto) 7.4, Eos % (Auto) 2.6, Baso % (Auto) 0.6, Absolute Neuts (auto) 6.9, Absolute Lymphs (auto) 1.55, Nucleated RBC % 0 06/11/20 13:35: Sodium 140, Potassium 4.1, Chloride 108 H, Carbon Dioxide 28.0, Anion Gap 4 L, BUN 11, Creatinine 0.75, Estim Creat Clear Calc 32.23, Est GFR (MDRD) Af Amer 96, Est GFR (MDRD) Non-Af 79, BUN/Creatinine Ratio 14.7, Glucose 203 H, Calcium 9.0, Troponin I 0.027 06/11/20 13:35: B-Natriuretic Peptide 430.8 H 06/11/20 18:02: Blood Type O POSITIVE, Antibody Screen NEGATIVE, Crossmatch See Detail 06/11/20 18:02: Magnesium 2.2, Iron 54, TIBC 597 H, Iron Saturation 9.0 L, Ferritin 39, Troponin I < 0.015 06/11/20 21:22: Troponin I < 0.015 06/11/20 22:17: POC Glucose 237 H 06/12/20 03:20: WBC Cancelled, Corrected WBC Cancelled, RBC Cancelled, Hgb Cancelled, Hct Cancelled, MCV Cancelled, MCH Cancelled, MCHC Cancelled, RDW Std Deviation Cancelled, RDW Coeff of Aubrie Cancelled, Plt Count Cancelled, MPV Cancelled, Immature Gran % (Auto) Cancelled, Neut % (Auto) Cancelled, Lymph % (Auto) Cancelled, [place] % (Auto) Cancelled, Eos % (Auto) Cancelled, Baso % (Auto) Cancelled, Absolute Neuts (auto) Cancelled, Absolute Lymphs (auto) Cancelled, Total Counted Cancelled, Neutrophils % (Manual) Cancelled, Band Neutrophils % Cancelled, Lymphocytes % (Manual) Cancelled, Monocytes % (Manual) Cancelled, Eosinophils % (Manual) Cancelled, Basophils % (Manual) Cancelled, Metamyelocytes % Cancelled, Myelocytes % Cancelled, Promyelocytes % Cancelled, Blast Cells % Cancelled, Plasma Cell % (Manual) Cancelled, Other Cells % Cancelled, Nucleated RBC % Cancelled, Nucleated RBCs/100 WBC Cancelled, Differential Comment Cancelled, Diff Path Review Cancelled, Hypersegmented Neuts Cancelled, Atypical Lymphocytes Cancelled, Reactive Lymphocytes Cancelled, Smudge Cells Cancelled, Toxic Granulation Cancelled, Toxic Vacuolation Cancelled, Dohle Bodies Cancelled, Gala Rods Cancelled, Platelet Estimate Cancelled, Plt Morphology Comment Cancelled, RBC Morphology Cancelled, Polychromasia Cancelled, Hypochromasia Cancelled, Poikilocytosis Cancelled, Basophilic Stippling Cancelled, Anisocytosis Cancelled, Microcytosis Cancelled, Macrocytosis Cancelled, Spherocytes Cancelled, Sickle Cells Cancelled, Target Cells Cancelled, Tear Drop Cells Cancelled, Ovalocytes Cancelled, Stomatocytes Cancelled, [place] Bodies Cancelled, [place] Cells Cancelled, Bite Cells Cancelled, Crenated Cell Cancelled, Acanthocytes (Spur) Cancelled, Rouleaux Cancelled, Schistocytes Cancelled 06/12/20 03:20: Sodium 140, Potassium 3.7, Chloride 103, Carbon Dioxide 30.0, Anion Gap 7, BUN 13, Creatinine 0.69, Estim Creat Clear Calc 32.23, Est GFR (M DRD) Af Amer 106, Est GFR (MDRD) Non-Af 87, BUN/Creatinine Ratio 18.9, Glucose 175 H, Calcium 8.7, Total Bilirubin 1.10 H, AST 14 L, ALT 21, Alkaline Phosphatase 81, Total Protein 6.5, Albumin 3.2, Globulin 3.3, Albumin/Globulin Ratio 1.0, Triglycerides 154, Cholesterol 89, LDL Cholesterol 29, VLDL Cholesterol 31, HDL Cholesterol 29 L, TSH 0.07 L 06/12/20 03:20: Hgb Cancelled, Hct Cancelled 06/12/20 03:20: WBC 10.6, RBC 3.76 L, Hgb 9.4 L, Hct 31.3 L, MCV 83.2, MCH 25.0 L, MCHC 30.0 L, RDW Std Deviation 52.0 H, RDW Coeff of Aubrie 17.3 H, Plt Count 232, MPV 11.2, Immature Gran % (Auto) 0.500, Neut % (Auto) 71.5 H, Lymph % (Auto) 18.7 L, [place] % (Auto) 6.5, Eos % (Auto) 2.2, Baso % (Auto) 0.6, Absolute Neuts (auto) 7.6, Absolute Lymphs (auto) 1.98, Nucleated RBC % 0 06/12/20 06:34: POC Glucose 150 H Current Medications Acetaminophen (Tylenol) 650 mg PO Q6H PRN PRN PRN Reason: Pain Score 1-10/Temp > 100.7 F Al Hydroxide/Mg Hydroxide (Mylanta Ii) 30 ml PO Q6H PRN PRN PRN Reason: Gastric Burning Albuterol Sulfate (Ventolin Aerosols) 2.5 mg INHALATION Q6HWA.RT [facility] Last Admin: 06/12/20 06:49 Dose: 2.5 mg Documented by: Albuterol Sulfate (Ventolin Aerosols) 2.5 mg INHALATION Q2H PRN PRN PRN Reason: Dyspnea, wheezing Aspirin (Ecotrin) 162 mg PO DAILY@0800 [facility] Last Admin: 06/12/20 09:00 Dose: 162 mg Documented by: Atenolol (Tenormin (Beta Antoni)) 50 mg PO DAILY [facility] Last Admin: 06/12/20 09:01 Dose: 50 mg Documented by: Atorvastatin Calcium (Lipitor) 20 mg PO DAILY [facility] Last Admin: 06/12/20 09:01 Dose: 20 mg Documented by: Furosemide (Lasix) 40 mg IV BID@1000,1800 [facility] Last Admin: 06/12/20 10:30 Dose: 40 mg Documented by: Guaifenesin (Robitussin) 20 ml PO Q4H PRN PRN PRN Reason: COUGH Hydralazine HCl (Apresoline Iv) 10 mg IV Q4H PRN PRN PRN Reason: SBP > 160 Last Admin: 06/12/20 06:52 Dose: 10 mg Documented by: Insulin Glargine (Lantus (Bkc)) 80 units SC DAILY [facility] Last Admin: 06/12/20 09:01 Dose: 80 units Documented by: Insulin Human Lispro (Humalog Kwikpen (Bkc)) 10 unit SC TIDCM PRN PRN Reason: hyperglycemia Insulin Human Lispro (Humalog Kwikpen (Bkc)) 0 unit SC ACHS [facility]; Protocol Last Admin: 06/12/20 06:36 Dose: 1 units Documented by: Isosorbide Mononitrate (Imdur) 30 mg PO DAILY [facility] Last Admin: 06/12/20 09:01 Dose: 30 mg Documented by: Lisinopril (Zestril) 40 mg PO DAILY [facility] Last Admin: 06/12/20 09:01 Dose: 40 mg Documented by: Magnesium Hydroxide (Milk Of Magnesia) 30 ml PO DAILY PRN PRN PRN Reason: Constipation Melatonin (Melatonin) 3 mg PO QHS PRN PRN PRN Reason: INSOMNIA Morphine Sulfate () 2 mg IV Q3H PRN PRN PRN Reason: Pain Score 6-10/10 Nitroglycerin (Nitrostat) 0.4 mg SUBLINGUAL Q5M PRN PRN Reason: CARDIAC/CHEST PAIN Ondansetron HCl (Zofran) 4 mg IV Q8H PRN PRN PRN Reason: NAUSEA/VOMITING Oxycodone HCl (Oxyir) 5 mg PO Q4H PRN PRN PRN Reason: Pain Score 4-5/10 Prochlorperazine Edisylate (Compazine Iv) 5 mg IV Q4H PRN PRN PRN Reason: Breakthrough Nausea/Vomiting Psyllium Hydrophilic Mucilloid (Metamucil) 1 packet PO DAILY PRN PRN PRN Reason: Constipation Senna/Docusate Sodium (Senokot-S, Karen-Colace) 2 tablet PO BID PRN PRN PRN Reason: Constipation Sertraline HCl (Zoloft) 100 mg PO DAILY [facility] Last Admin: 06/12/20 09:01 Dose: 100 mg Documented by: Sodium Chloride () 10 - 40 ml IV UD PRN PRN Reason: SALINE FLUSH Last Admin: 06/12/20 06:52 Dose: 10 ml Documented by: Throat Lozenges (Cepacol Sore Throat Lozenge) 1 lozenge MUCOUS MEM Q2H PRN PRN PRN Reason: SORE THROAT STROKE Vital Signs/Narrative: Vital Signs Temp Pulse Resp BP Pulse Ox 06/12/20 08:57 98.2 F 69 18 154/65 H 97 Medical Necessity - Tobacco Use Smoking Status: Never smoker Tobacco Use: Non-smoker Assessment/Plan All Active Problems (Last Reviewed 05/23/20 @ 13:35 by Penelope Hughes) Chest pain, unspecified (Acute) Anemia (Acute) Heme positive stool (Acute) Acute on chronic diastolic (congestive) heart failure (Acute) Hypertensive emergency (Acute) Anemia due to chronic blood loss (Acute) Acute on chronic combined systolic and diastolic CHF (congestive heart failure) (Resolved) Acute on chronic diastolic heart failure (Resolved) Bronchitis (Resolved) Cough (Resolved) H/O: hysterectomy (Resolved) History of carpal tunnel release (Resolved) Hx of cholecystectomy (Resolved) Hx of knee surgery (Resolved) Pneumonia (Resolved) 1. Acute on chronic diastolic CHF - improved with lasix and blood transfusion 2. CP in the setting of CAD and ischemic CM - EKG with LBBB and small ST elevation in V1/V2 however these are similar to prior EKG, no new acute changes. Negative troponin. Troponin negx3. Repeat AM EKG. Cardiology considering further workup. Continue aspirin, atenolol, imdur, lisinopril, statin 3. Acute on chronic blood loss anemia with iron deficiency - improved. again, long hx of GI bleed with extensive workup which will not be repeated at this time. She has low sat otherwise normal iron studies. 4. HTN - poorly controlled, defer to cardiology. continue prn hydralazine. 5. Hx PE - complicated by #2, not on full anticoagulation. 6. DMt2 - continue long acting insulin + SSI 7. Depression/Anxiety - sertraline. DVT ppx: SCDs DC planning : pending further cardiac workup. ambulatory pulse ox prior to dc. This patient was seen by Kaleb Kwok PA-C under the supervision of Dr. Castaneda
[2020-06-12 11:57] LABS: Free T3 2.1 pg/mL (2.18-3.98); T4 Free Direct 0.95 ng/dL (0.76-1.46)
--- NOTE | 2020-06-12 12:33 | PCM.CONS.C ---
Problem List (1) CAD (coronary artery disease) Status: Chronic Qualifiers: Coronary Disease-Associated Artery/Lesion type: [place] artery [place] vs. transplanted heart: [place] heart (2) History of coronary artery stent placement Status: Chronic Comment: PTCA/stent to mid first Diagonal 12/21/03; PTCA/stent to mid Diagonal 07/02/07 (3) Ischemic cardiomyopathy Status: Chronic Comment: EF in February 2019 is 55% with stage II diastolic dysfunction. (4) Acute on chronic diastolic (congestive) heart failure Status: Acute (5) HLD (hyperlipidemia) Status: Chronic Qualifiers: Hyperlipidemia type: unspecified Qualified Code(s): E78.5 - Hyperlipidemia, unspecified (6) HTN (hypertension) Status: Chronic (7) Anemia Status: Acute Qualifiers: Iron deficiency anemia type: chronic blood loss Reason for Consult Date of Consultation: 06/12/20 History of Present Illness: The patient is a 80 year [id number]-kcf white female with a history of underlying hyperlipidemia, hypertension, CAD, PCI, ischemic mediated cardiomyopathy, acute on chronic diastolic mediated CHF, who presents for concerns of chest discomfort, shortness of breath/dyspnea, in the setting of marked anemia. The patient stated that for the last several days she has noted concerns of feeling as if her undergarments were tight around her chest and abdomen. She noted feeling somewhat more short of breath and dyspneic than usual. She states she has chronically been sleeping in a recliner for at least 1 year plus. She noted some increase in lower extremity peripheral pitting edema. She did use nitroglycerin sublingual at home and felt that she may have gained some improvement. She elected to present to the hospital for further evaluation. She has had negative troponin I levels. Her ECG demonstrated sinus rhythm with left axis deviation and a left bundle branch block pattern. Her chest x-ray per radiology suggested an element of CHF. She was found to be anemic with a hemoglobin of 7.9. It is noted that she has a history of anemia and in December of this year had a hemoglobin as low as 6.5. She required PRBCs. Her hemoglobin has increased. She states overall she does feel somewhat better is receiving PRBCs and IV diuretics. [] Past Medical History Allergies/Adverse Reactions: Allergies latex Allergy (Verified 06/11/20 12:44) Rash Home Medications: Ambulatory Orders Medication Instructions Recorded Nitroglycerin (INPATIENT USE) 0.4 mg SUBLINGUAL Q5M PRN 01/25/15 [Nitrostat] Insulin Glargine,Hum.rec.anlog 80 unit SQ DAILY 11/05/15 [Toutae Solostar] Sertraline HCl 100 mg PO DAILY 02/26/19 insulin lispro 100 unit/mL 10 unit SC TIDCM PRN 02/07/20 subcutaneous pen Albuterol Sulfate [Albuterol 2 puff INHALATION BID 06/11/20 Sulfate HFA] Aspirin E.C. [Ecotrin] 162 mg PO DAILY@0800 06/11/20 Atenolol 50 mg PO DAILY 06/11/20 Atorvastatin Calcium [Lipitor] 20 mg PO DAILY 06/11/20 Furosemide 40 mg PO BID 06/11/20 Isosorbide Mononitrate [Isosorbide 30 mg PO DAILY 06/11/20 Mononitrate ER] Lisinopril [Zestril] 40 mg PO DAILY 06/11/20 Multivitamin 1 tab PO DAILY 06/11/20 Past Medical History (Chronic Problems): Chronic Problems (Last Reviewed 05/23/20 @ 13:35 by Penelope Hughes) CAD (coronary artery disease) (Chronic) HTN (hypertension) (Chronic) Hematochezia (Chronic) History of hemorrhoids (Chronic) Normocytic anemia (Chronic) Grade II diastolic dysfunction (Chronic) Obesity (BMI 30-39.9) (Chronic) Anxiety and depression (Chronic) PAD (peripheral artery disease) (Chronic) Atherosclerotic heart disease of [place] coronary artery without angina pectoris (Chronic) PTCA/stent to mid first Diagonal 12/21/03; PTCA/stent to mid Diagonal 07/02/07 Left bundle branch block (Chronic) 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 CAD (coronary artery disease) (Chronic) Type II diabetes mellitus (Chronic) HLD (hyperlipidemia) (Chronic) History of pulmonary embolus (PE) (Chronic) History of coronary artery stent placement (Chronic) PTCA/stent to mid first Diagonal 12/21/03; PTCA/stent to mid Diagonal 07/02/07 NSTEMI (non-ST elevated myocardial infarction) (Chronic) Surgical History: - - Carpal tunnel surgery, PCI, cholecystectomy, knee surgery, hysterectomy. 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: No pertinent REFINING SUPERVISOR history - *Family History Maternal Family History: Family History (Last Reviewed 05/23/20 @ 13:35 by Penelope Hughes) Father CVA (cerebral vascular accident) Mother Heart disease CAD (coronary artery disease) Sister CAD (coronary artery disease) Daughter CAD (coronary artery disease) Myocardial infarction Daughter Diabetes History Items: High Cholesterol, Heart Disease, Hypertension Paternal Family History: Family History (Last Reviewed 05/23/20 @ 13:35 by Penelope Hughes) Father CVA (cerebral vascular accident) Mother Heart disease CAD (coronary artery disease) Sister CAD (coronary artery disease) Daughter CAD (coronary artery disease) Myocardial infarction Daughter Diabetes History Items: Stroke Lives: Alone Smoking Status: Never smoker Tobacco Use: Non-smoker Alcohol: None Drugs: None Review of Systems - Review of Systems General: Denies: Fever, Night Sweats, Fatigue Cardiovascular: Reports: Chest Discomfort, Peripheral Edema. Denies: Shortness of Breath, Orthopnea, PND, Palpitations, Lightheadedness, Dizziness, Near Syncope, Syncope Respiratory: Denies: Cough, Sputum Production, Hemoptysis Gastrointestinal: Denies: Hematemesis, Hematochezia, Melena Genitourinary: Denies: Dysuria, Hematuria Skin: Denies: Rash Subjectve: This is an 80-year-old white female who appears to be resting comfortably at the moment in no acute distress. Objective: Vital Signs Temp Pulse Resp BP Pulse Ox 98.2 F 69 18 154/65 H 97 06/12/20 08:57 06/12/20 08:57 06/12/20 08:57 06/12/20 08:57 06/12/20 08:57 Oxygen Delivery Method Room Air Weight: 165 lb 2.02 oz Body Mass Index (BMI) 33.2 Finger Stick Blood Glucose 181 Intake and Output for Last 24 Hours 06/10/20 06/11/20 06/12/20 23:59 23:59 23:59 Intake Total 240 / 240 520 / 520 Output Total 200 / 200 600 / 600 Balance 40 / 40 -80 / -80 General: Awake, Alert, Oriented x 3, Cooperative, No Acute Distress HEENT: Atraumatic, Normocephalic, PERRL, EOMI, Sclera Non Icteric Neck: Supple, Good ROM, No JVD Lungs: Rales - Fernando Bases Cardiovascular: Regular Rhythm, Normal S1, Normal S2 Murmur Murmur: Grade 2/6, Harsh, Mid Systolic, LLSB, LVOT, Sternal Notch Abdomen: Bowel Sounds Present, Soft, Non Tender Extremities: Trace RLE Edema, Mild LLE Edema Neurological: No Focal Motor or Sensory Deficit Psych/Mental Status: Appropriate 06/11/20 13:35: WBC 9.5, RBC 3.25 L, Hgb 7.9 L, Hct 26.8 L, MCV 82.5, MCH 24.3 L, MCHC 29.5 L, Plt Count 233, MPV 11.6, Immature Gran % (Auto) 0.600, Neut % (Auto) 72.5 H, Lymph % (Auto) 16.3 L, [place] % (Auto) 7.4, Eos % (Auto) 2.6, Baso % (Auto) 0.6, Absolute Neuts (auto) 6.9, Nucleated RBC % 0 06/11/20 13:35: Sodium 140, Potassium 4.1, Chloride 108 H, Carbon Dioxide 28.0, Anion Gap 4 L, BUN 11, Creatinine 0.75, Est GFR (MDRD) Af Amer 96, Est GFR (MDRD) Non-Af 79, BUN/Creatinine Ratio 14.7, Glucose 203 H, Calcium 9.0, Troponin I 0.027 06/11/20 13:35: B-Natriuretic Peptide 430.8 H 06/11/20 18:02: Magnesium 2.2, Iron 54, TIBC 597 H, Iron Saturation 9.0 L, Ferritin 39, Troponin I < 0.015 06/11/20 21:22: Troponin I < 0.015 06/12/20 03:20: WBC Cancelled, Corrected WBC Cancelled, RBC Cancelled, Hgb Cancelled, Hct Cancelled, MCV Cancelled, MCH Cancelled, MCHC Cancelled, Plt Count Cancelled, MPV Cancelled, Immature Gran % (Auto) Cancelled, Neut % (Auto) Cancelled, Lymph % (Auto) Cancelled, [place] % (Auto) Cancelled, Eos % (Auto) Cancelled, Baso % (Auto) Cancelled, Absolute Neuts (auto) Cancelled, Total Counted Cancelled, Neutrophils % (Manual) Cancelled, Band Neutrophils % Cancelled, Lymphocytes % (Manual) Cancelled, Monocytes % (Manual) Cancelled, Eosinophils % (Manual) Cancelled, Basophils % (Manual) Cancelled, Metamyelocytes % Cancelled, Myelocytes % Cancelled, Promyelocytes % Cancelled, Blast Cells % Cancelled, Plasma Cell % (Manual) Cancelled, Other Cells % Cancelled, Nucleated RBC % Cancelled 06/12/20 03:20: Sodium 140, Potassium 3.7, Chloride 103, Carbon Dioxide 30.0, Anion Gap 7, BUN 13, Creatinine 0.69, Est GFR (MDRD) Af Amer 106, Est GFR (MDRD) Non-Af 87, BUN/Creatinine Ratio 18.9, Glucose 175 H, Calcium 8.7, Total Bilirubin 1.10 H, Triglycerides 154, Cholesterol 89, LDL Cholesterol 29, VLDL Cholesterol 31, HDL Cholesterol 29 L 06/12/20 03:20: Hgb Cancelled, Hct Cancelled 06/12/20 03:20: WBC 10.6, RBC 3.76 L, Hgb 9.4 L, Hct 31.3 L, MCV 83.2, MCH 25.0 L, MCHC 30.0 L, Plt Count 232, MPV 11.2, Immature Gran % (Auto) 0.500, Neut % (Auto) 71.5 H, Lymph % (Auto) 18.7 L, [place] % (Auto) 6.5, Eos % (Auto) 2.2, Baso % (Auto) 0.6, Absolute Neuts (auto) 7.6, Nucleated RBC % 0 Rhythm: Sinus rhythm EKG: As noted above ECHO: 02-28-19 Interpretation Summary Normal LV size. Mild concentric left ventricular hypertrophy. The estimated ejection fraction is 55 %. Stage 2 diastolic dysfunction. No regional wall motion abnormalities noted. The left atrium is mildly enlarged. Mild (1+) eccentric mitral valve insufficiency. Septal motion consistent with IVCD. Mild (1+) tricuspid valve insufficiency. Stress Test: 02-28-19 Stress Test Report Pharmacologic myocardial perfusion stress test. 79-year-old lady with a history of abnormal troponin. Stress protocol: Resting EKG demonstrates sinus rhythm with a rate of 62 bpm normal intervals are noted resting blood pressures 142/70 mmHg. The patient has a left bundle branch block pattern. 0.4 mg of regadenoson was infused per usual protocol followed by rapid intravenous saline flush injection continuous EKG monitoring was performed. The patient maintained sinus rhythm throughout the recording. At rest there were no ST or T wave changes noted suggest abnormal flow reserve the patient maintained left bundle branch block throughout. The resting blood pressure was 142/70 mmHg final blood pressure was 132/62 mmHg. Myocardial perfusion protocol: 14.0 mCi of technetium 99m sestamibi was injected at rest. 0.4 mg of regadenoson was infused per usual protocol peak infusion 43.8 mCi of technetium 99m sestamibi was injected stress images were obtained stress and rest images were reconstructed and compared in the short axis vertical and horizontal long axis. Gated images were also obtained next Perfusion SPECT analysis: Review of the stress images demonstrate a normal cardiac silhouettes. There is mildly reduced perfusion noted in the anterior septal wall which is present on the stress and resting images to a similar extent. The above appears to be suggestive of the left bundle branch block perfusion abnormalities that are noted. No obvious reversible changes are noted to suggest ischemia. Gated SPECT analysis: The gated ejection fraction is noted to be 43% with dyssynchrony noted. Conclusion: Myocardial perfusion stress test with evidence of left ventricular dyssynchrony No obvious ischemia noted Mild reduction of left ventricular function Cardiac Cath: 11-06-15 Final impression: 1. Elevated left ventricular end diastolic pressure compatible decreased LV systolic function 2. Left ventricle: A. Hypokinesis of the mid anterior and distal anterior segments B. Hypokinesis of the mid inferior and distal inferior segments C. Estimated LVEF of 45% 3. Left main coronary artery: A. Angiographically normal 4. Left anterior descending coronary artery: A. Proximal mild calcification B. 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 Diagonal branch: Stented: Patent: With minimal luminal irregularities 5. Left circumflex coronary artery: A. Proximal 10-25% eccentric appearing stenosis B. OM 1: Proximal minimal luminal irregularities followed by 25-50% eccentric appearing stenosis 6. Right coronary artery: A. Moderate size dominant vessel B. Angiographically normal 7. Mitral valve: A. Moderate mitral valve regurgitation PCI: 2003 and 01/2007 Diagonal branch CXR: As noted above: Please see official report Assessment/Plan 1. CAD status post PCI The patient has a history of CAD status post PCI. She presents with symptoms of chest discomfort. It is unclear whether these symptoms are cardiac in nature being exacerbated by her anemia versus noncardiac in etiology. The present time her cardiac enzymes have been negative. Her ECG is as noted and with no new acute changes. She is pending further evaluation with an echocardiogram to reassess her left ventricular wall motion and systolic function. In the interim she is continuing medical therapy with adjustment as deemed appropriate. She is also received PRBCs which will help her oxygen carrying capacity. She does note she feels better since receiving PRBCs. She is not an ideal candidate for additional evaluation in the cardiac catheterization laboratory at this time secondary to her recurrent marked anemia requiring recurrent PRBCs which would make it challenging for her to be on advanced antiplatelet and/or anticoagulant therapy. Thus it appears reasonable to attempt continued conservative medical management at this time. 2. Cardiomyopathy The patient has been previously diagnosed with an ischemic mediated cardiomyopathy. Her most recent noninvasive studies are as noted. She is pending a follow-up echocardiogram to reassess her overall left ventricular wall motion and systolic function. This should help guide further evaluation and care. 3. Acute on chronic diastolic mediated CHF She is also had a diagnosis of acute on chronic diastolic mediated CHF. At the present time she has been treated medically including IV diuretics. She does feel better. She will need to continue medical management and follow-up. 4. Hyperlipidemia She will continue medical management. 5. Hypertension Her blood pressure is been elevated which may also contribute to exacerbation of her underlying symptoms and findings. Her medications are being augmented to try and bring her blood pressure under better control. 6. Anemia She has had recurrent marked anemia requiring recurrent PRBCs. Again this makes it more challenging to provide her with antiplatelet therapy and her anticoagulant therapy. At the moment from a cardiovascular standpoint she will continue conservative medical management. She may need additional evaluation from a noncardiac standpoint with respect to her anemia to assist in diagnosis and care. Of note the patient was also previously scheduled for an outpatient transthoracic echocardiogram to reassess her cardiac murmur and her underlying valvular anatomy and physiology. Comment: The above has been discussed and reviewed with the patient and the [facility] staff and the [facility] ED staff. This note was generated using a voice recognition system and there may be incorrect words, spelling or punctuation that were not noted when reviewing the office note prior to saving.
[2020-06-12] MEDS: amLODIPine 5 MG Tablet PO (13:08)
[2020-06-12 13:26] LABS: Bedside Glucose 227 mg/dL (70-110)
--- NOTE | 2020-06-12 15:41 | CASEMGMT ---
LW/POA forms in summary tab of echart. TEMO Kent
[2020-06-12 18:11] LABS: Bedside Glucose 248 mg/dL (70-110)
[2020-06-12 21:16] LABS: Bedside Glucose 214 mg/dL (70-110)
[2020-06-13] VITALS (7 sets, daily range): BP systolic 144–170; BP diastolic 30–60; PULSE 58–66; RESP 14–20; TEMP 36.9; O2SAT 92–97
[2020-06-13] MEDS: hydrALAZINE 20 MG/ML Vial 10 MG IV (03:34)
[2020-06-13] MEDS: 0.9% Saline Lock 10 ML Syringe IV (03:36)
[2020-06-13 05:50] LABS: Absolute Neutrophil Count 9.5 X10^3/uL (2.0-7.7); Basophil# 0.05 X10^3/uL; Basophil% 0.4 % (0-1); Eosinophil# 0.29 X10^3/uL; Eosinophils% 2.2 % (0-5); Hematocrit 33.2 % (37-47); Hemoglobin 9.9 g/dL (12.0-15.0); Lymphocyte % 18.2 % (19-41); Mean Corp Hgb Conc 29.8 g/dL (32-36); Mean Corpuscular Hgb 24.4 pg (27.0-32.0); Mean Corpuscular Volume 81.8 fL (81-99); Mean Platelet Vol. 11.4 fl (6.2-12.0); Monocyte# 0.86 X10^3/uL; Monocyte% 6.5 % (0-10); NRBC Flagged by Analyzer 0 % (0-5); Platelet Count 265 K/mm3 (150-450); RBC Distribution Width CV 17.6 % (11.6-14.6); Red Blood Count 4.06 M/mm3 (4.2-5.4); White Blood Count 13.2 K/mm3 (4.4-11.0)
[2020-06-13 06:29] LABS: ALB/GLOB Ratio 0.9 RATIO (0.9-2.4); AST(SGOT) 20 U/L (15-37); Alanine Aminotransfer ALT/SGPT 20 U/L (13-56); Albumin, Serum 3.3 g/dL (3.2-5.0); Alkaline Phosphatase 81 U/L (45-117); Anion Gap 8 (5-15); BUN 18 mg/dL (7-18); BUN/Creat Ratio 23.5 RATIO (10-20); Calcium,Total 9.2 mg/dL (8.5-10.1); Chloride 104 mmol/L (98-107); Creatinine, Serum 0.76 mg/dL (0.55-1.02); EST Glomerular Filtration Rate 77 mL/min (>60); Est Glom Filt Rate - Afr Amer 93 mL/min (>60); Estimated Creatinine Clearance 32.23 ml/min; Globulin 3.5 g/dL (2.2-4.2); Glucose 122 mg/dL (74-106); Potassium 3.4 mmol/L (3.5-5.1); Protein, Total 6.8 g/dL (6.4-8.2); Sodium Level 139 mmol/L (136-145)
[2020-06-13] MEDS: Albuterol 2.5 MG/3 ML VIAL.NEB. INHALATION (06:53)
[2020-06-13 06:55] LABS: Bedside Glucose 126 mg/dL (70-110)
[2020-06-13] MEDS: Lisinopril 40 MG Tablet PO (09:05)
[2020-06-13] MEDS: Sertraline 100 MG Tablet PO (09:06)
[2020-06-13] MEDS: Atorvastatin Calcium 20 MG Tablet PO (09:06)
[2020-06-13] MEDS: Aspirin E.C. 81 MG Tablet PO (09:06)
[2020-06-13] MEDS: Isosorbide Mononitrate 60 MG Tablet PO (09:06)
[2020-06-13] MEDS: Atenolol 50 MG Tablet PO (09:06)
[2020-06-13] MEDS: amLODIPine 10 MG Tablet PO (09:10)
--- NOTE | 2020-06-13 09:32 | DCINST_ITS ---
- Discharge Diagnoses Current Active Problems: Current Active and Chronic Problems (Last Reviewed 05/23/20 @ 13:35 by Penelope Hughes) Chest pain, unspecified (Acute) Anemia (Acute) CAD (coronary artery disease) (Chronic) HTN (hypertension) (Chronic) Acute on chronic diastolic (congestive) heart failure (Acute) You will use the following diet at home:: Calorie/Carbohydrate Controlled (specify 1200, 1400, etc) - 1800 kirstin Your food should be the consistency of: Regular Your liquids should be the consistency of: Regular/Thin Discharge Activity: Return to Normal Activity Weight Bearing Status: Full weight bearing Allergies/Adverse Reactions: Allergies latex Allergy (Verified 06/11/20 12:44) Rash Medications to take at Discharge Nitroglycerin (INPATIENT USE) [Nitrostat] 0.4 mg SUBLINGUAL Q5M PRN 01/25/15 Insulin Glargine,Hum.rec.anlog [Toujeo Solostar] 80 unit SQ DAILY 11/05/15 Sertraline HCl 100 mg PO DAILY 02/26/19 insulin lispro 100 unit/mL subcutaneous pen 10 unit SC TIDCM PRN 02/07/20 Albuterol Sulfate [Albuterol Sulfate HFA] 2 puff INHALATION BID 06/11/20 Aspirin E.C. [Ecotrin] 162 mg PO DAILY@0800 06/11/20 Atenolol 50 mg PO DAILY 06/11/20 Atorvastatin Calcium [Lipitor] 20 mg PO DAILY 06/11/20 Furosemide 40 mg PO BID 06/11/20 Lisinopril [Zestril] 40 mg PO DAILY 06/11/20 Multivitamin 1 tab PO DAILY 06/11/20 Amlodipine [Norvasc] 5 mg PO DAILY #30 tab 06/13/20 Isosorbide Mononitrate [Imdur] 60 mg PO DAILY #30 tab 06/13/20 Potassium Chloride 20 meq PO DAILY #60 tablet.er 06/13/20 The following prescriptions were given: Isosorbide Mononitrate [Imdur] 60 mg PO DAILY #30 tab Transmission Status: Pending to [id number] Amlodipine [Norvasc] 5 mg PO DAILY #30 tab Transmission Status: Pending to [id number] Potassium Chloride 20 meq PO DAILY #60 tablet.er Transmission Status: Pending to [id number] Primary Care Physician: Riley Roca Chi, MD [Primary Care Provider] - Please follow up with your Primary Care Physician in: next week-get BMP done Test Results: Test results from this visit will be discussed in further detail at your follow- up appointment, if applicable. Please Follow Up With: Guicho Billy MD When: in 3 weeks
--- NOTE | 2020-06-13 09:42 | PN.CARD_ITS ---
Subjectve: The patient states she feels better today. This is been status post her medication adjustment, diuretic therapy, and her PRBCs. Objective: Vital Signs Temp Pulse Resp BP Pulse Ox 98.4 F 66 14 144/30 H 96 06/13/20 09:03 06/13/20 09:03 06/13/20 09:03 06/13/20 09:03 06/13/20 09:03 Oxygen Delivery Method Room Air Weight: 163 lb 9.328 oz Body Mass Index (BMI) 33.2 Finger Stick Blood Glucose 181 Intake and Output for Last 24 Hours 06/11/20 06/12/20 06/13/20 23:59 23:59 23:59 Intake Total 240 / 240 520 / 640 370 / 370 Output Total 200 / 200 600 / 600 Balance 40 / 40 -80 / 40 370 / 370 General: Awake, Alert, Oriented x 3, Cooperative, No Acute Distress HEENT: Atraumatic, Normocephalic, PERRL, EOMI, Sclera Non Icteric Neck: Supple, Good ROM, No JVD Lungs: Clear to auscultation Cardiovascular: Regular Rhythm, Normal S1, Normal S2 Murmur Murmur: Grade 2/6, Harsh, Mid Systolic, LLSB, LVOT, Sternal Notch Abdomen: Bowel Sounds Present, Soft Extremities: Trace LLE Edema Psych/Mental Status: Appropriate 06/13/20 04:42: WBC 13.2 H, RBC 4.06 L, Hgb 9.9 L, Hct 33.2 L, MCV 81.8, MCH 24.4 L, MCHC 29.8 L, Plt Count 265, MPV 11.4, Immature Gran % (Auto) 0.700, Neut % (Auto) 72.0 H, Lymph % (Auto) 18.2 L, [place] % (Auto) 6.5, Eos % (Auto) 2.2, Baso % (Auto) 0.4, Absolute Neuts (auto) 9.5 H, Nucleated RBC % 0 06/13/20 04:42: Sodium 139, Potassium 3.4 L, Chloride 104, Carbon Dioxide 27.0, Anion Gap 8, BUN 18, Creatinine 0.76, Est GFR (MDRD) Af Amer 93, Est GFR (MDRD) Non-Af 77, BUN/Creatinine Ratio 23.5 H, Glucose 122 H, Calcium 9.2, Total Bilirubin 1.20 H Rhythm: Sinus rhythm ECHO: Interpretation Summary Left ventricular systolic function is normal. The estimated ejection fraction is 55 %. Septal motion consistent with IVCD. The left atrium is mildly enlarged. There is mild to moderate mitral annular calcification. Mild focal mitral valve calcification of the anterior leaflet. The mitral valve chordae are thickened and/or calcified. Mild mitral valve stenosis. Moderate (2+) mitral valve insufficiency. Mild tricuspid valve insufficiency. Aortic sclerosis, no stenosis. Trivial pulmonic valve insufficiency. Right ventricular systolic pressure estimated to be 41 mmHg. There is evidence of diastolic dysfunction. Medical Necessity - Tobacco Use Smoking Status: Never smoker Tobacco Use: Non-smoker Assessment/Plan 1. CAD status post PCI The patient has a history of CAD status post PCI. She presents with symptoms of chest discomfort. It is unclear whether these symptoms are cardiac in nature being exacerbated by her anemia versus noncardiac in etiology. The present time her cardiac enzymes have been negative. Her ECG is as noted and with no new acute changes. Her echocardiogram has been completed. The results are as noted. She does note she feels better since receiving PRBCs. She is not an ideal candidate for additional evaluation in the cardiac catheterization laboratory at this time secondary to her recurrent marked anemia requiring recurrent PRBCs which would make it challenging for her to be on advanced antiplatelet and/or anticoagulant therapy. Thus it appears reasonable to attempt continued conservative medical management at this time. 2. Cardiomyopathy The patient has been previously diagnosed with an ischemic mediated cardiomyopathy. Her most recent noninvasive studies are as noted. She is going to continue medical management. 3. Acute on chronic diastolic mediated CHF She is also had a diagnosis of acute on chronic diastolic mediated CHF. At the present time she has been treated medically including IV diuretics. She does feel better. She will need to continue medical management transition to oral medications and follow-up. 4. Hyperlipidemia She will continue medical management. 5. Hypertension Her blood pressure is been elevated which may also contribute to exacerbation of her underlying symptoms and findings. Her medications have been adjusted to try and bring her blood pressure under better control which hopefully will help her overall condition. 6. Anemia She has had recurrent marked anemia requiring recurrent PRBCs. Again this makes it more challenging to provide her with antiplatelet therapy and her anticoagulant therapy. At the moment from a cardiovascular standpoint she will continue conservative medical management. She may need additional evaluation from a noncardiac standpoint with respect to her anemia to assist in diagnosis and care. Comment: The above has been discussed and reviewed with the patient and Dr. Gloria gupta. This note was generated using a voice recognition system and there may be incorrect words, spelling or punctuation that were not noted when reviewing the office note prior to saving.
--- NOTE | 2020-06-13 11:19 | PHA.DC.MC ---
Pharmacy Service has performed discharge medication reconciliation and counseling for this patient. 1. AMLODIPINE 5MG PO DAILY 2. POTASSIUM CHLORIDE 20MEQ PO DAILY The patient's discharge medication list was reviewed for discrepancies and discrepancies were resolved. Home Medications Nitroglycerin (INPATIENT USE) [Nitrostat] 0.4 mg SUBLINGUAL Q5M PRN 01/25/15 Insulin Glargine,Hum.rec.anlog [Toujeo Solostar] 80 unit SQ DAILY 11/05/15 Sertraline HCl 100 mg PO DAILY 02/26/19 insulin lispro 100 unit/mL subcutaneous pen 10 unit SC TIDCM PRN 02/07/20 Albuterol Sulfate [Albuterol Sulfate HFA] 2 puff INHALATION BID 06/11/20 Aspirin E.C. [Ecotrin] 162 mg PO DAILY@0800 06/11/20 Atenolol 50 mg PO DAILY 06/11/20 Atorvastatin Calcium [Lipitor] 20 mg PO DAILY 06/11/20 Furosemide 40 mg PO BID 06/11/20 Lisinopril [Zestril] 40 mg PO DAILY 06/11/20 Multivitamin 1 tab PO DAILY 06/11/20 Amlodipine [Norvasc] 5 mg PO DAILY #30 tab 06/13/20 Isosorbide Mononitrate [Imdur] 60 mg PO DAILY #30 tab 06/13/20 Potassium Chloride 20 meq PO DAILY #60 tablet.er 06/13/20 The patient was counseled on the following discharge medications and changes in medications for homegoing were reviewed. The Reason for Use, instructions for use, and potential side effects were reviewed for all new medications. The patient's questions regarding all of their medications were answered. The patient was able to verbally demonstrate an understanding of their discharge medications. Patient counseled by pharmacy technician instructor, Kelsy.
--- NOTE | 2020-06-13 14:59 | PCM.DC.SUM ---
Discharge Date and Diagnosis Date of Admission: 06/11/20 Date of Discharge: 06/13/20 - Primary Discharge Diagnosis Acute Problems: Acute on chronic diastolic CHF Acute on chronic blood loss anemia Iron deficiency HTN poorly controlled Hx chronic GI bleed Hx PE - Secondary Discharge Diagnosis Chronic Problems: Chronic Problems (Last Reviewed 05/23/20 @ 13:35 by Penelope Hughes) CAD (coronary artery disease) (Chronic) HTN (hypertension) (Chronic) Hematochezia (Chronic) History of hemorrhoids (Chronic) Normocytic anemia (Chronic) Grade II diastolic dysfunction (Chronic) Obesity (BMI 30-39.9) (Chronic) Anxiety and depression (Chronic) PAD (peripheral artery disease) (Chronic) Atherosclerotic heart disease of [place] coronary artery without angina pectoris (Chronic) PTCA/stent to mid first Diagonal 12/21/03; PTCA/stent to mid Diagonal 07/02/07 Left bundle branch block (Chronic) 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 CAD (coronary artery disease) (Chronic) Type II diabetes mellitus (Chronic) HLD (hyperlipidemia) (Chronic) History of pulmonary embolus (PE) (Chronic) History of coronary artery stent placement (Chronic) PTCA/stent to mid first Diagonal 12/21/03; PTCA/stent to mid Diagonal 07/02/07 NSTEMI (non-ST elevated myocardial infarction) (Chronic) Hospital Course and Treatment Imaging Results: IMAGING: RAD/Chest 1 View (Portable) IMPRESSION: Findings in keeping with a mild degree of CHF. Echo: Interpretation Summary Left ventricular systolic function is normal. The estimated ejection fraction is 55 %. Septal motion consistent with IVCD. The left atrium is mildly enlarged. There is mild to moderate mitral annular calcification. Mild focal mitral valve calcification of the anterior leaflet. The mitral valve chordae are thickened and/or calcified. Mild mitral valve stenosis. Moderate (2+) mitral valve insufficiency. Mild tricuspid valve insufficiency. Aortic sclerosis, no stenosis. Trivial pulmonic valve insufficiency. Right ventricular systolic pressure estimated to be 41 mmHg. There is evidence of diastolic dysfunction. [facility] Procedures: 2-D Echocardiogram Summary of Care Provided: Hospital course: The patient is a 80 year old F with pmhx notable for diastolic CHF, CAD with prior stents, chronic anemia due to fpc 10 year GI bleed of unclear etiology requiring iron infusions periodically, who presented to the ER with SOB. The patient was SOB with exertion and had significant orthopnea as well as chest tightness. She was taking nitro daily for chest tightness with relief for a week. She was found to have CXR with mild CHF, elevated BNP, and LE edema. EKG had no acute changes and troponin was negative. She was also significantly anemic with Hgb of 7.9. She was admitted to PCU and placed on tele. She was transfused with 1 unit PRBC with good response. She was diuresed with IV lasix. CP resolved. She was seen by cardiology. Echo was obtained which showed EF 55% RVSP 41 mmHg. She had no further chest pain. BP was intermittently elevated. Imdur was increased, norvasc was added. She will return to her prior lasix oral dose with potassium supplementation. Cardiology felt conservative care with medical management was ideal at this time. Further aggressive workup and possible intervention will be complicated by her chronic GI bleeding. She has had extensive workup for this over the last ten years so further workup deferred at this time. Hemoccult is positive. She will be discharged home in stable condition. Follow up with PCP in 1-2 weeks, cardiology as directed. This patient was seen by Kaleb Kwok PA-C under the supervision of Doctor Castaneda. [] - Physical Exam Vitals/I&O's: Vital Signs Temp Pulse Resp BP Pulse Ox 98.4 F 66 14 144/30 H 96 06/13/20 09:03 06/13/20 09:03 06/13/20 09:03 06/13/20 09:03 06/13/20 10:58 Oxygen Flow Rate (L/min) [ 0 AMBULATING on Room Air] Oxygen Flow Rate (L/min) [At 0 REST on Room Air] Oxygen Delivery Method Room Air Weight: 163 lb 9.328 oz Body Mass Index (BMI) 33.2 Finger Stick Blood Glucose 181 Intake and Output for Last 24 Hours 06/11/20 06/12/20 06/13/20 23:59 23:59 23:59 Intake Total 240 / 240 520 / 640 370 / 370 Output Total 200 / 200 600 / 600 Balance 40 / 40 -80 / 40 370 / 370 General: Alert, Oriented x3, Cooperative HEENT: Atraumatic, PERRLA, EOMI, Normocephalic Neck: Supple, No JVD, Negative Carotid Bruits Lungs: Clear to auscultation, Normal air movement Cardiovascular: Regular rate, No murmurs Abdomen: Bowel Sounds Present, Soft, Non Tender Extremities: No edema, Capillary Refill Less than 3 Seconds Skin: No rashes, No breakdown Musculoskeletal: No Tenderness to Palpation of Joints or Extremities Neurological: Cranial nerves II-XII grossly intact Psych/Mental Status: Normal Affect, Appropriate Microbiology Past 72 Hours 06/11/20 16:40 Stool Stool Occult Blood (JEFFERY) - Final Occult Blood Positive Laboratory Results 06/12/20 17:55: POC Glucose 248 H 06/12/20 21:07: POC Glucose 214 H 06/13/20 04:42: WBC 13.2 H, RBC 4.06 L, Hgb 9.9 L, Hct 33.2 L, MCV 81.8, MCH 24.4 L, MCHC 29.8 L, RDW Std Deviation 51.0 H, RDW Coeff of Aubrie 17.6 H, Plt Count 265, MPV 11.4, Immature Gran % (Auto) 0.700, Neut % (Auto) 72.0 H, Lymph % (Auto) 18.2 L, [place] % (Auto) 6.5, Eos % (Auto) 2.2, Baso % (Auto) 0.4, Absolute Neuts (auto) 9.5 H, Absolute Lymphs (auto) 2.40, Nucleated RBC % 0 06/13/20 04:42: Sodium 139, Potassium 3.4 L, Chloride 104, Carbon Dioxide 27.0, Anion Gap 8, BUN 18, Creatinine 0.76, Estim Creat Clear Calc 32.23, Est GFR (MDRD) Af Amer 93, Est GFR (MDRD) Non-Af 77, BUN/Creatinine Ratio 23.5 H, Glucose 122 H, Calcium 9.2, Total Bilirubin 1.20 H, AST 20, ALT 20, Alkaline Phosphatase 81, Total Protein 6.8, Albumin 3.3, Globulin 3.5, Albumin/Globulin Ratio 0.9 06/13/20 06:39: POC Glucose 126 H Discharge Diet: Low fat/ Low Cholesterol, 2000 mg Sodium Diet Discharge Activity: Return to Normal Activity Weight Bearing Status: Full weight bearing Call your doctor if you observe: Shortness of breath, Swelling in the ankles, Chest pain Home Medications: Medications to take at Discharge Nitroglycerin (INPATIENT USE) [Nitrostat] 0.4 mg SUBLINGUAL Q5M PRN 01/25/15 Insulin Glargine,Hum.rec.anlog [Toujeo Solostar] 80 unit SQ DAILY 11/05/15 Sertraline HCl 100 mg PO DAILY 02/26/19 insulin lispro 100 unit/mL subcutaneous pen 10 unit SC TIDCM PRN 02/07/20 Albuterol Sulfate [Albuterol Sulfate HFA] 2 puff INHALATION BID 06/11/20 Aspirin E.C. [Ecotrin] 162 mg PO DAILY@0800 06/11/20 Atenolol 50 mg PO DAILY 06/11/20 Atorvastatin Calcium [Lipitor] 20 mg PO DAILY 06/11/20 Furosemide 40 mg PO BID 06/11/20 Lisinopril [Zestril] 40 mg PO DAILY 06/11/20 Multivitamin 1 tab PO DAILY 06/11/20 Amlodipine [Norvasc] 5 mg PO DAILY #30 tab 06/13/20 Isosorbide Mononitrate [Imdur] 60 mg PO DAILY #30 tab 06/13/20 Potassium Chloride 20 meq PO DAILY #60 tablet.er 06/13/20 Following Prescriptions Were Given to Patient: Isosorbide Mononitrate [Imdur] 60 mg PO DAILY #30 tab Transmission Status: Received by [id number] Amlodipine [Norvasc] 5 mg PO DAILY #30 tab Transmission Status: Received by [facility] Potassium Chloride 20 meq PO DAILY #60 tablet.er Transmission Status: Received by [id number] Primary Care Physician: Riley Roca Chi, MD [Primary Care Provider] - Please follow up with your Primary Care Physician in: next week-get BMP done Please Follow Up With: Guicho Billy MD When: in 3 weeks Please Follow Up With: Riley Roca Chi, MD When: next week-get BMP done Disposition: Home Minutes spent on discharge:: 35 Patient Condition:: Stable Medical Necessity - Tobacco Use Smoking Status: Never smoker Tobacco Use: Non-smoker Meaningful Use Info Meaningful Use Diagnoses (Choose all that apply): CHF - CHF CEDRICK/ARB ordered at discharge?: Yes Documented LVEF (%): 55
--- NOTE | 2020-06-14 14:23 | CASEMGMT ---
JUDSON ANDERSON Discharge F/U Phone Call LACE: 10 Strata: 3 Discharge date: 06/13/2020 Call date: 06/14/2020 Call time: [id number] Admission dx: Acute CHF exacerbation Pt states she has been doing 'okay' since discharge. Pt speaks in full sentences with no distress/SOB. Pt states no questions regarding discharge instructions/medications at this time. Pt states she has f/u appts scheduled and plans to keep. Pt states no suggestions for [facility] at this time and states 'I enjoyed the floor and all the nurses/aides.' Pt voices no further questions/concerns/needs at this time. SStaten JUDSON ANDERSON
== END 2020-06-13 11:52 | disposition home or self-care (01) | DRG 291 ==
LOC: ED 17:20 → PCU 17:36
PROVIDERS: Physician Assistant; Admitting Provider Family Medicine; Emergency Provider Emergency Medicine; PCP Family Medicine Geriatric Medicine; Visit Provider Internal Medicine
DX: I13.0 Hypertensive heart and chronic kidney disease with heart failure and stage 1 through stage 4 chronic kidney disease, or unspecified chronic kidney disease (principal); I50.33 Acute on chronic diastolic (congestive) heart failure; K92.1 Melena; K92.0 Hematemesis; I16.1 Hypertensive emergency; D62 Acute posthemorrhagic anemia; E11.22 Type 2 diabetes mellitus with diabetic chronic kidney disease; E11.51 Type 2 diabetes mellitus with diabetic peripheral angiopathy without gangrene; N18.3 Chronic kidney disease, stage 3 (moderate); E78.5 Hyperlipidemia, unspecified; F32.9 Major depressive disorder, single episode, unspecified; F41.9 Anxiety disorder, unspecified; I25.10 Atherosclerotic heart disease of native coronary artery without angina pectoris; I25.5 Ischemic cardiomyopathy; D50.9 Iron deficiency anemia, unspecified; E66.9 Obesity, unspecified; I44.7 Left bundle-branch block, unspecified; M19.90 Unspecified osteoarthritis, unspecified site; I25.2 Old myocardial infarction; Z68.33 Body mass index [BMI] 33.0-33.9, adult; Z79.899 Other long term (current) drug therapy; Z79.4 Long term (current) use of insulin; Z79.82 Long term (current) use of aspirin; Z86.711 Personal history of pulmonary embolism; Z95.5 Presence of coronary angioplasty implant and graft
CPT/HCPCS: 36415; 71045; 80048; 80053; 80061; 82274; 82728; 82962; 83540; 83550; 83735; 83880; 84439; 84443; 84481; 84484; 85025; 86850; 86900; 86901; 86920; 86922; 93005; 93306; 94640; 99251; 99285; J7040; P9016; A4216; G0463; J1940

== ENCOUNTER → 2020-06-14 | Outpatient (CLI) | payer MEDICARE, SELFPAY ==
[2020-06-11 12:44] VITALS: BMI 33.2
[2020-06-14 16:52] LABS: Absolute Lymphocyte Count 2.27 X10^3/uL (0.83-4.51); Absolute Neutrophil Count 9.1 X10^3/uL (2.0-7.7); Basophil# 0.06 X10^3/uL; Basophil% 0.5 % (0-1); Eosinophil# 0.39 X10^3/uL; Hematocrit 34.9 % (37-47); Hemoglobin 10.5 g/dL (12.0-15.0); Lymphocyte # 2.27 X10^3/ul (4.0); Lymphocyte % 17.7 % (19-41); Mean Corp Hgb Conc 30.1 g/dL (32-36); Mean Corpuscular Hgb 24.8 pg (27.0-32.0); Mean Corpuscular Volume 82.5 fL (81-99); Mean Platelet Vol. 11.8 fl (6.2-12.0); Monocyte# 0.92 X10^3/uL; Monocyte% 7.2 % (0-10); NRBC Flagged by Analyzer 0 % (0-5); Neutrophil # 9.06 X10^3/uL (2.7-7.7); Neutrophil % 70.6 % (47-70); Platelet Count 343 K/mm3 (150-450); RBC Distribution Width CV 18.3 % (11.6-14.6); RBC Distribution Width SD 53.9 fl (35.1-43.9); Red Blood Count 4.23 M/mm3 (4.2-5.4); White Blood Count 12.8 K/mm3 (4.4-11.0)
[2020-06-14 17:31] LABS: Anion Gap 5 (5-15); BUN 26 mg/dL (7-18); BUN/Creat Ratio 23.9 RATIO (10-20); Calcium,Total 9.4 mg/dL (8.5-10.1); Chloride 108 mmol/L (98-107); Creatinine, Serum 1.09 mg/dL (0.55-1.02); EST Glomerular Filtration Rate 51 mL/min (>60); Est Glom Filt Rate - Afr Amer 62 mL/min (>60); Glucose 106 mg/dL (74-106); Potassium 4.6 mmol/L (3.5-5.1); Sodium Level 139 mmol/L (136-145)
== END | disposition home or self-care (01) ==
LOC: POLAB3 16:11
PROVIDERS: PCP Family Medicine Geriatric Medicine; Visit Provider Family Medicine Geriatric Medicine
DX: D50.9 Iron deficiency anemia, unspecified (principal)
CPT/HCPCS: 36415; 80048; 85025

== ENCOUNTER → 2020-07-30 | Outpatient (CLI) | payer MEDICARE, SELFPAY ==
[2020-07-04 10:35] VITALS: BMI 33.6
--- NOTE | 2020-07-30 15:16 | RAD_ITS ---
STUDY: X-RAY - LUMBAR SPINE REASON FOR EXAM: Female, 80 years old. Lower back pain for months. TECHNIQUE: 3 view(s) of the lumbar spine were obtained. COMPARISON: 02/15/2015 FINDINGS: Normal lumbar lordosis. There is no substantial scoliosis. There is a normal alignment of the vertebrae. Diffuse mild spondylosis. Degenerative disc disease at the L5-S1 level. Diffuse facet disease. Vascular calcifications. RAD/Lumbar Spine 2 or 3 Views IMPRESSION: Degenerative disc disease at the L5-S1 level. Diffuse facet disease. Electronically Signed: Jacques De La Rosa MD at 22:49 EDT Tel , Service support ,
--- NOTE | 2020-07-30 15:16 | RAD_ITS ---
STUDY: X-RAY - THORACIC SPINE REASON FOR EXAM: Female, 80 years old. Mid back pain for months. TECHNIQUE: 3 view(s) of the thoracic spine were obtained. COMPARISON: None. FINDINGS: Normal alignment. Diffuse spondylosis and degenerative disc disease. No compression deformities are seen. Vascular calcifications. Coronary artery stent. RAD/Thoracic Spine 2 Views IMPRESSION: Normal alignment. Diffuse spondylosis and degenerative disc disease. No compression deformities are seen. Electronically Signed: Jacques De La Rosa MD at 23:19 EDT Tel , Service support ,
[2020-07-30 16:07] LABS: Absolute Lymphocyte Count 1.49 X10^3/uL (0.83-4.51); Absolute Neutrophil Count 4.9 X10^3/uL (2.0-7.7); Basophil# 0.04 X10^3/uL; Basophil% 0.5 % (0-1); Eosinophil# 0.61 X10^3/uL; Eosinophils% 7.9 % (0-5); Hematocrit 28.1 % (37-47); Hemoglobin 7.9 g/dL (12.0-15.0); Lymphocyte # 1.49 X10^3/ul (4.0); Lymphocyte % 19.4 % (19-41); Mean Corp Hgb Conc 28.1 g/dL (32-36); Mean Corpuscular Hgb 23.1 pg (27.0-32.0); Mean Corpuscular Volume 82.2 fL (81-99); Mean Platelet Vol. 12.3 fl (6.2-12.0); Monocyte# 0.63 X10^3/uL; Monocyte% 8.2 % (0-10); NRBC Flagged by Analyzer 0 % (0-5); Neutrophil % 63.7 % (47-70); Platelet Count 269 K/mm3 (150-450); RBC Distribution Width CV 17.4 % (11.6-14.6); RBC Distribution Width SD 52.5 fl (35.1-43.9); Red Blood Count 3.42 M/mm3 (4.2-5.4); White Blood Count 7.7 K/mm3 (4.4-11.0)
[2020-07-30 16:35] LABS: ALB/GLOB Ratio 1.2 RATIO (0.9-2.4); AST(SGOT) 16 U/L (15-37); Alanine Aminotransfer ALT/SGPT 29 U/L (13-56); Albumin, Serum 3.6 g/dL (3.2-5.0); Alkaline Phosphatase 76 U/L (45-117); Anion Gap 6 (5-15); BUN 29 mg/dL (7-18); BUN/Creat Ratio 27.9 RATIO (10-20); Calcium,Total 8.9 mg/dL (8.5-10.1); Chloride 106 mmol/L (98-107); Creatinine, Serum 1.04 mg/dL (0.55-1.02); EST Glomerular Filtration Rate 54 mL/min (>60); Est Glom Filt Rate - Afr Amer 66 mL/min (>60); Globulin 3.1 g/dL (2.2-4.2); Glucose 177 mg/dL (74-106); Protein, Total 6.7 g/dL (6.4-8.2); Sodium Level 140 mmol/L (136-145); Thyroid Stim Hormone (TSH) 0.14 uIU/mL (0.358-3.74)
== END | disposition home or self-care (01) ==
LOC: POLAB3 14:25
PROVIDERS: PCP Family Medicine Geriatric Medicine; Visit Provider Family Medicine Geriatric Medicine
DX: E11.9 Type 2 diabetes mellitus without complications (principal); E55.9 Vitamin D deficiency, unspecified; M10.9 Gout, unspecified; I10 Essential (primary) hypertension; M54.5 Low back pain; M54.6 Pain in thoracic spine
CPT/HCPCS: 36415; 72070; 72100; 80053; 82306; 84443; 84550; 85025

== ENCOUNTER → 2020-08-13 | Outpatient (CLI) | payer MEDICARE, SELFPAY ==
[2020-07-04 10:35] VITALS: BMI 33.6
[2020-08-13 14:01] LABS: Hematocrit 27.7 % (37-47); Hemoglobin 7.8 g/dL (12.0-15.0)
[2020-08-14 14:48] LABS: T3 Uptake 40 % (30-39); T4 Free Direct 1.08 ng/dL (0.76-1.46); Thyroid Stim Hormone (TSH) 0.07 uIU/mL (0.358-3.74)
== END | disposition home or self-care (01) ==
LOC: POLAB3 13:44
PROVIDERS: PCP Family Medicine Geriatric Medicine; Visit Provider Family Medicine Geriatric Medicine
DX: D64.9 Anemia, unspecified (principal); E05.90 Thyrotoxicosis, unspecified without thyrotoxic crisis or storm
CPT/HCPCS: 36415; 84439; 84443; 84479; 85014; 85018

== ENCOUNTER 2020-10-08 06:54 | Day surgery (SDC) | payer MEDICARE, SELFPAY ==
[2020-09-11 08:43] VITALS: BMI 34.2
[2020-10-04 13:27] VITALS: BMI 33.5
--- NOTE | 2020-10-08 05:00 | HP_ITS ---
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 [Ecotrin] 162 mg PO DAILY@0800 06/11/20 [History Confirmed 09/11/20] Atenolol 50 mg PO DAILY 06/11/20 [History Confirmed 09/11/20] Atorvastatin Calcium [Lipitor] 20 mg PO DAILY 06/11/20 [History Confirmed 09/11/20] Furosemide 40 mg PO BID 06/11/20 [History Confirmed 09/11/20] Lisinopril [Zestril] 40 mg PO DAILY 06/11/20 [History Confirmed 09/11/20] Multivitamin 1 tab PO DAILY 06/11/20 [History Confirmed 09/11/20] amlodipine 5 mg tablet 5 mg PO DAILY #90 tab 07/04/20 [Rx Confirmed 09/11/20] isosorbide mononitrate 60 mg tablet,extended release 24 hr 60 mg PO DAILY #90 tab 07/04/20 [Rx Confirmed 09/11/20] potassium chloride 10 mEq tablet,extended release 20 meq PO DAILY #60 tablet.er 07/04/20 [Rx Confirmed 09/11/20] [facility] Medical History PAD (peripheral artery disease) (Chronic) Atherosclerotic heart disease of [place] coronary artery without angina pectoris (Chronic) Left bundle branch block (Chronic) 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) Ischemic cardiomyopathy (Chronic) Anemia due to chronic blood loss (Acute) CAD (coronary artery disease) (Chronic) Type II diabetes mellitus (Chronic) HLD (hyperlipidemia) (Chronic) History of pulmonary embolus (PE) (Chronic) NSTEMI (non-ST elevated myocardial infarction) (Chronic) Anemia (Acute) Arthritis (Acute) Diabetes (Acute) Intermittent claudication (Acute) Migraine (Acute) HTN (hypertension) (Chronic) Acute on chronic combined systolic and diastolic CHF (congestive heart failure) (Resolved) Acute on chronic diastolic heart failure (Resolved) Bronchitis (Resolved) Chest pain (Resolved) Cough (Resolved) Edema (Resolved) SOB (shortness of breath) (Resolved) Heart disease (Inactive) Surgical History History of coronary artery stent placement (Chronic) History of cholecystectomy (Acute) S/P complete hysterectomy (Acute) H/O: hysterectomy (Resolved) History of carpal tunnel release (Resolved) Hx of cholecystectomy (Resolved) Hx of knee surgery (Resolved) Family History Father CVA (cerebral vascular accident) Mother Heart disease CAD (coronary artery disease) Sister CAD (coronary artery disease) Daughter CAD (coronary artery disease) Myocardial infarction Daughter Diabetes Social History (Updated 09/11/20 @ 09:[address] Trung Holloway MD) Smoking Status: Never smoker alcohol intake: never HPI HPI Chief Complaint: F/U for anemia evaluation and +IFOBT Details: Patient was informed that this visit will be billed to patient. This visit was conducted during COVID-19 pandemic. LARRY MALDONADO, is a 80 F who presents to the office today for Evaluation of anemia and heme positive stools. Patient has been having black stools for several years she has been on iron off and on but she states that even when she has been off of her iron her stools have been dark blackish in nature. Patient is also been experiencing some lower abdominal discomfort in addition she has had diarrhea for what her family would stay would be approximately 20 years over the last several months it has been significantly worse essentially keeping her almost hostage to her living quarters. She has not noticed any bright red rectal bleeding. ROS Const Constitutional: No anorexia, body ache, chills, excessive sweating, fatigue, fever(s), frequent falls, headache(s), decreased energy, malaise, night sweats, snoring, weakness, weight change, sleep problems, abnormal sleep pattern, change in appetite or other Eyes Eyes: No blurry vision, change in vision, double vision, discharge, dry eyes, bulging eyes, floaters, visual disturbances, eye pain, light sensitivity, spots in vision, tunnel vision or other ENT ENT: Positive for difficulty swallowing; no abnormal hearing, ear pain, ear discharge, ear pressure, hearing loss, tinnitus, dizziness/vertigo, balance problems, nosebleed/epistaxis, nasal congestion, nasal obstruction, nose pain, sinus pressure, sinus pain, nasal discharge, post nasal drip, headache(s), facial pain, dental pain, dry mouth, bad breath, hoarseness, lip swelling, mouth lesions, mouth pain, neck pain, sore throat, tongue swelling, throat swelling or other Resp Respiratory: Positive for cough; no change in phlegm color, chest congestion, excessive phlegm production, hemoptysis, pain on inspiration, shortness of breath, pain with cough, snoring, stridor, wheezing or other Cardio Cardiology: Positive for shortness of breath and dyspnea on exertion; no chest pain at rest, chest pain with exertion, leg pain with exertion, excessive sweating, generalized swelling, irregular heart rhythm, lightheadedness, orthopnea, radiating jaw, neck or arm pain, fast heart rate, slow heart rate, palpitations or other Gastro GI: Positive for abdominal pain, constipation, diarrhea, difficulty swallowing, blood in stool and Black,tarry stools; no belching, bloating, change in bowel habits, change in stool character, coffee ground emesis, cramping, heartburn, feeling full early, excessive flatus, incontinent of stools, Vomiting blood/hematemesis, loose stools, nausea/dyspepsia, pain with swallowing, vomiting or other Genitourinary-Female: No difficulty urinating, burning urination, painful urination, urinary incontinence, urinary frequency, urinary urgency, urinary hesitancy, urinary retention, blood in urine, Frequent nighttime urination/ nocturia, post void dribbling, suprapubic fullness, side pain, sexual problems, genital lesions, genital itching, hot flashes, abnormal periods, abnormal vaginal bleeding, absent period, painful periods, light periods, heavy periods, difficulty getting , painful intercourse, pelvic pain, vaginal dryness, vaginal odor, Vaginal Itching or other Musc Musculoskeletal: Positive for back pain; no abnormal walking, joint pain, deformity, joint swelling, limited range of motion, loss of height, muscle cramps, muscle weakness, decreased muscle mass, body aches, neck pain, numbness, radiating pain into limb, stiffness, tingling or other Skin Skin: No acne, hair loss, change in hair, nail changes, boil, change in skin color, dry skin, redness, excessive hair growth, yellowing of the skin, lesions, itching, rash, skin pain, skin ulcer, sores, skin swelling, wounds or other Breast Breast: No change in breast shape, breast lump, breast pain, breast skin changes, breast swelling, nipple discharge or other Neuro Neurology: No abnormal walking, abnormal hearing, abnormal movements, abnormal speech, behavioral changes, confusion, unsteady gait/balance, dizziness, weakness, frequent falls, headache(s), lack of coordination, loss of vision, memory loss, numbness, tingling, visual disturbances, restless legs, fainting, tremor(s) or other Psych Psychiatric: No abnormal sleep pattern, No lack of enjoyment, No anxiety, No behavioral changes, No change in appetite, No confusion, No depression, No difficulty concentrating, No hopelessness, No irritability, No memory loss, No mood swings, No panic attacks, No paranoia, No Thoughts of harming yourself/Others, No hallucinations, No other Endo Endocrine: No change in body appearance, cold intolerance, excessive sweating, fatigue, flushing, heat intolerance, increased thirst/drinking, increased hunger, increased urination or other Aller/Imm Allergy/Immunologic: No food intolerance, itchy eyes, lip swelling, seasonal allergy symptoms, throat swelling, tongue swelling, hives, wheezing or other Alan/Lymp Hematologic/Lymphatic: No easy bleeding, easy bruising, enlarged lymph nodes or other Exam Musc Musculoskeletal: No muscle weakness Details: Details:: Exam was limited due to phone visit with no video. Quality Reporting Tobacco Screening ([facility] 138) Smoking Status: Never smoker Assessment & Plan Problems 1. Iron deficiency anemia due to chronic blood loss D50.0 2. Heme positive stool R19.5 Plan I have discussed the above with the patient. I have offered the patient colonoscopy As well as an EGD for evaluation. I have explained the risks/benefits of the procedure and described the procedure. I have discussed the risks with the patient, including but not limited to: infection, bleeding, perforation of the GI tract requiring emergency surgery, inability to complete the procedure, injury to any internal organs, complications of anesthesia, etc. - the patient understands and agrees to proceed. I have answered all the patient's questions to the patient's satisfaction and the patient has no further questions. The patient has been given instructions for the colon cleansing preparation. We will be doing biopsies of the stomach duodenum as well as random colon biopsies. Coding Level of Care Code Diagnoses Iron deficiency anemia due to chronic blood loss D50.0 ??Anemia type: iron deficiency ??Iron deficiency anemia type: chronic blood loss Heme positive stool R19.5 Time Spent (min) I have re-examined the patient. There are no clinical changes since date of exam.
[2020-10-08 07:20] VITALS: BP 134/65; PULSE 59; RESP 16; TEMP 36.6; O2SAT 97; BMI 33.7
[2020-10-08] MEDS: Lactated Ringers 1,000 ML 100 ML IV (07:20)
--- NOTE | 2020-10-08 08:00 | EGD_PTH ---
PATIENT: LARRY MALDONADO LOC: EN U#:[id number] AGE/SX: 80/F ROOM: RE10/08/[address]: Dr. Trung Holloway MD : 1940 BED: DIS: 10/08/2020 SPEC #: [id number] RECD: 10/08/20 10:25 STATUS: ISSAC PRABHA #: [id number] JODIE: 10/08/20 08:[address]: Trung Holloway DEPT: SURGICAL PATHOLOGY RECD BY: Sana Weber ENTERED: 10/08/20 10:58 SP TYPE: EGD BIOPSY OTHR DR: Dr. Riley Roca MD Tissues: A - Duodenum, NOS B - Gastric mucous membrane C - COLON BIOPSY Procedures: Surgery Specimen Level IV HEADER OPERATION: Colonoscopy, EGD ([facility]) PRE-OP DIAGNOSIS: Iron deficiency anemia; chronic blood loss; heme-positive stool TISSUE SUBMITTED: A - Duodenum biopsy, B - Antrum biopsy for histo and H. pylori, C - Random colonic biopsy MICROSCOPIC DIAGNOSIS A. Duodenum, biopsy: Fragments of duodenal mucosa, no pathologic diagnosis. B. Antrum, biopsy: Mild gastritis. See microscopic description and comment. C. Colon, random biopsy: Fragments of colonic mucosa, no pathologic diagnosis. SJ:rg 10/09/20 COMMENT B. The results of immunohistochemistry for Helicobacter pylori will be reported separately ([id number]). MICROSCOPIC DESCRIPTION Slides are reviewed. B. The specimen shows fragments of gastric mucosa with chronic inflammatory cell infiltrates in the lamina propria consisting of lymphocytes and plasma cells, consistent with mild chronic gastritis. GROSS DESCRIPTION A - Received in fixative is one container labeled with the patient's name and designated duodenum biopsy. The specimen consists of multiple irregular fragments of light lassiter soft tissue that in aggregate measure 0.5 x 0.3 x 0.1 cm. The specimen is totally submitted in one cassette. B - Received in fixative is one container labeled with the patient's name and designated antrum biopsy. The specimen consists of one irregular fragment of light lassiter soft tissue that measures 0.5 x 0.3 x 0.1 cm. The specimen is totally submitted in one cassette. C - Received in fixative is one container labeled with the patient's name and designated random colonic biopsy. The specimen consists of multiple irregular fragments of light lassiter soft tissue that in aggregate measure 2.4 x 0.6 x 0.1 cm. The specimen is totally submitted in one cassette. / SJ:rg 10/08/20 TC:3 CPT: 11296 x3
--- NOTE | 2020-10-08 08:00 | IMM_PTH ---
PATIENT: LARRY MALDONADO LOC: EN U#:[id number] AGE/SX: 80/F ROOM: RE10/08/[address]: Dr. Trung Holloway MD : 1940 BED: DIS: 10/08/2020 SPEC #: [id number] RECD: 10/08/20 12:57 STATUS: SOUGloria REQ #: [id number] JODIE: 10/08/20 08:[address]: Trung Holloway DEPT: IMMUNOHISTOCHEMISTRY RECD BY: Katherine Temple ENTERED: 10/08/20 12:57 SP TYPE: IMMUNO OTHR DR: Dr. Riley Roca MD Tissues: B - Stomach, NOS Procedures: H Pylori (initial) PHYSICIAN & INSTITUTION [address] [address] SPECIMEN INFORMATION: Tissue Source: B - Antrum biopsy Clinical Info: Iron deficiency anemia; chronic blood loss; Heme-positive stool Specimen Number: [id number] CPT code: 91675 METHODOLOGY: Deparaffinized sections of prefer/formalin-fixed tissue or PAP/DQ stained slides are incubated with monoclonal/polyclonal antibodies/oligonucleotide probes. Localization is made via biotin free immunoperoxidase method. Appropriate controls are performed and reacted as expected. Results on target cell population are indicated in the following table: RESULTS: ANTIBODY / CLONE RESULT Block B H Pylori (polyclonal) negative These tests were developed and their performance characteristics determined by [facility]. They may not have been cleared or approved by the U.S. Food and Drug Administration. The FDA has determined that such clearance or approval is not necessary. The above immunohistochemical/dualISH markers are ordered and reviewed by the Pathologist. INTERPRETATION: B. Antrum, biopsy: Negative for Helicobacter pylori organisms. SJ:gay 10/09/20
[2020-10-08 08:30] VITALS: BP 118/46; BP 134/65; PULSE 56; RESP 16; TEMP 36.1; O2SAT 93
--- NOTE | 2020-10-08 08:31 | OP.EGD_ITS ---
Patient Name: Ashlee Boateng Procedure Date: 10/08/2020 7:55 AM Date of : 1940 Age: 80 Procedure: Upper GI endoscopy Indications: Iron deficiency anemia due to suspected upper gastrointestinal bleeding, Heme positive stool Providers: Trung Holloway MD Referring MD: Riley Roca MD Medicines: See the Anesthesia note for documentation of the administered medications Patient Profile: This is an 80 year old female. Refer to note in patient chart for documentation of history and physical. Complications: No immediate complications. Procedure: Pre-Anesthesia Assessment: - Prior to the procedure, a History and Physical was performed, and patient medications and allergies were reviewed. The patient's tolerance of previous anesthesia was also reviewed. The risks and benefits of the procedure and the sedation options and risks were discussed with the patient. All questions were answered, and informed consent was obtained. Prior Anticoagulants: The patient has taken no previous anticoagulant or antiplatelet agents. ASA Grade Assessment: III - A patient with severe systemic disease. After reviewing the risks and benefits, the patient was deemed in satisfactory condition to undergo the procedure. After obtaining informed consent, the endoscope was passed under direct vision. Throughout the procedure, the patient's blood pressure, pulse, and oxygen saturations were monitored continuously. The gastroscope was introduced through the mouth, and advanced to the second part of duodenum. The upper GI endoscopy was accomplished without difficulty. The patient tolerated the procedure well. Scope In: 8:08:38 AM Scope Out: 8:10:55 AM Total Procedure Duration Time 0 hours 2 minutes 17 seconds Findings: The examined esophagus was normal. Localized mild inflammation characterized by congestion (edema), erythema and granularity was found in the prepyloric region of the stomach. Biopsies were taken with a cold forceps for Helicobacter pylori testing. The examined duodenum was normal. Biopsies for histology were taken with a cold forceps for evaluation of celiac disease. Impression: - Normal esophagus. - Gastritis. Biopsied. - Normal examined duodenum. Biopsied. Recommendation: - Await pathology results. - Repeat upper endoscopy PRN for surveillance. - Telephone my office for pathology results in 1 week. - Continue present medications. Procedure Code(s): --- Professional --- 61578, Esophagogastroduodenoscopy, flexible, transoral; with biopsy, single or multiple Diagnosis Code(s): --- Professional --- K29.70, Gastritis, unspecified, without bleeding D50.9, Iron deficiency anemia, unspecified R19.5, Other fecal abnormalities CPT copyright 2017 [employer]. All rights reserved. The codes documented in this report are preliminary and upon shellfish sorter review may be revised to meet current compliance requirements. MD Trung Huertas MD 10/08/2020 8:30:41 AM This report has been signed electronically. Number of Addenda: 0 Note Initiated On: 10/08/2020 7:55 AM
--- NOTE | 2020-10-08 08:31 | OP.CCLET_ITS ---
10/08/2020 iRley Roca MD [address] [place] [address] Re : Upper GI endoscopy procedure for Ashlee Boateng Dear Dr. Roca This procedure was performed on Thursday, October 08, 2020. My impressions and recommendations are as follows: Impressions : - Normal esophagus. - Gastritis. Biopsied. - Normal examined duodenum. Biopsied. Recommendations : - Await pathology results. - Repeat upper endoscopy PRN for surveillance. - Telephone my office for pathology results in 1 week. - Continue present medications. My findings are described in the full procedure note, which is enclosed. If I can be of further assistance, please feel free to contact me at Doctor phone number(s): , Fax: [phone], Work: . Sincerely, MD Trung Huertas MD 10/08/2020 8:30:41 AM This report has been signed electronically.
--- NOTE | 2020-10-08 08:34 | OP.CCLET_ITS ---
10/08/2020 Riley Roca MD [address] [place] [address] Re : Colonoscopy procedure for Ashlee Boateng Dear Dr. Roca This procedure was performed on Thursday, October 08, 2020. My impressions and recommendations are as follows: Impressions : - Diverticulosis in the sigmoid colon. - The entire examined colon is normal. Biopsied. - Non-bleeding external and internal hemorrhoids. - The examination was otherwise normal. Recommendations : - Discharge patient to home. - Resume previous diet. - Continue present medications. - Await pathology results. - Repeat colonoscopy in 5-10 years for surveillance. - Telephone my office for pathology results in 1 week. My findings are described in the full procedure note, which is enclosed. If I can be of further assistance, please feel free to contact me at Doctor phone number(s): , Fax: [phone], Work: . Sincerely, MD Trung Huertas MD 10/08/2020 8:33:25 AM This report has been signed electronically.
--- NOTE | 2020-10-08 08:34 | OP.COLON_ITS ---
Patient Name: Ashlee Boateng Procedure Date: 10/08/2020 8:11 AM Date of : 1940 Age: 80 Procedure: Colonoscopy Indications: Heme positive stool, Iron deficiency anemia Providers: Trung Holloway MD Referring MD: Riley Roca MD Medicines: See the Anesthesia note for documentation of the administered medications Patient Profile: This is an 80 year old female. Refer to note in patient chart for documentation of history and physical. Last Colonoscopy: more than 10 years ago. Complications: No immediate complications. Procedure: Pre-Anesthesia Assessment: - Prior to the procedure, a History and Physical was performed, and patient medications and allergies were reviewed. The patient's tolerance of previous anesthesia was also reviewed. The risks and benefits of the procedure and the sedation options and risks were discussed with the patient. All questions were answered, and informed consent was obtained. Prior Anticoagulants: The patient has taken no previous anticoagulant or antiplatelet agents. ASA Grade Assessment: III - A patient with severe systemic disease. After reviewing the risks and benefits, the patient was deemed in satisfactory condition to undergo the procedure. After I obtained informed consent, the scope was passed under direct vision. Throughout the procedure, the patient's blood pressure, pulse, and oxygen saturations were monitored continuously. The adult colonoscope was introduced through the anus and advanced to the cecum, identified by appendiceal orifice and ileocecal valve. The colonoscopy was performed without difficulty. The patient tolerated the procedure well. The quality of the bowel preparation was adequate to identify polyps 6 mm and larger in size. Scope In: 8:12:49 AM Scope Withdrawal Time 0 hours 6 minutes 12 seconds Scope Out: 8:25:26 AM Total Procedure Duration Time 0 hours 12 minutes 37 seconds Findings: A few small-mouthed diverticula were found in the sigmoid colon. The colon (entire examined portion) appeared normal. Biopsies for histology were taken with a cold forceps from the entire colon for evaluation of microscopic colitis. Non-bleeding external and internal hemorrhoids were found during retroflexion. The hemorrhoids were mild and small. The exam was otherwise without abnormality. Impression: - Diverticulosis in the sigmoid colon. - The entire examined colon is normal. Biopsied. - Non-bleeding external and internal hemorrhoids. - The examination was otherwise normal. Recommendation: - Discharge patient to home. - Resume previous diet. - Continue present medications. - Await pathology results. - Repeat colonoscopy in 5-10 years for surveillance. - Telephone my office for pathology results in 1 week. Procedure Code(s): --- Professional --- 26573, Colonoscopy, flexible; with biopsy, single or multiple Diagnosis Code(s): --- Professional --- K64.8, Other hemorrhoids R19.5, Other fecal abnormalities D50.9, Iron deficiency anemia, unspecified K57.30, Diverticulosis of large intestine without perforation or abscess without bleeding CPT copyright 2017 [employer]. All rights reserved. The codes documented in this report are preliminary and upon automatic maintainer review may be revised to meet current compliance requirements. MD Trung Huertas MD 10/08/2020 8:33:25 AM This report has been signed electronically. Number of Addenda: 0 Note Initiated On: 10/08/2020 8:11 AM
[2020-10-08 08:35] VITALS: BP 106/48; BP 134/65; PULSE 59; RESP 16; O2SAT 94
[2020-10-08 08:40] VITALS: BP 114/46; BP 134/65; PULSE 59; RESP 16; O2SAT 93
[2020-10-08 08:45] VITALS: BP 107/43; BP 134/65; PULSE 60; RESP 16; TEMP 36.9; O2SAT 93
[2020-10-08 10:15] VITALS: BP 134/65
[2020-10-08 11:11] LABS: Bedside Glucose 116 mg/dL (70-110)
== END 2020-10-08 10:15 | disposition home or self-care (01) ==
LOC: EN 06:54 → AC 06:55
PROVIDERS: PCP Family Medicine Geriatric Medicine; Referring Provider Family Medicine Geriatric Medicine; Visit Provider Surgery
PROC: 0DJD8ZZ Inspection of Lower Intestinal Tract, Via Natural or Artificial Opening Endoscopic (ICD-10-PCS; CPT 45378; principal; 2020-10-08 07:55)
DX: K29.70 Gastritis, unspecified, without bleeding (principal); K57.30 Diverticulosis of large intestine without perforation or abscess without bleeding; K64.4 Residual hemorrhoidal skin tags; K64.8 Other hemorrhoids; D50.9 Iron deficiency anemia, unspecified; I25.10 Atherosclerotic heart disease of native coronary artery without angina pectoris; E11.51 Type 2 diabetes mellitus with diabetic peripheral angiopathy without gangrene; E78.5 Hyperlipidemia, unspecified; M19.90 Unspecified osteoarthritis, unspecified site; I10 Essential (primary) hypertension; J44.9 Chronic obstructive pulmonary disease, unspecified; F41.9 Anxiety disorder, unspecified; Z20.828 Contact with and (suspected) exposure to other viral communicable diseases; Z79.4 Long term (current) use of insulin; Z79.51 Long term (current) use of inhaled steroids; Z79.899 Other long term (current) drug therapy
CPT/HCPCS: 43239; 45380; 82962; 87426; 88305; 88342; C9803; J7120; J1610; J2405

== ENCOUNTER → 2020-10-15 13:23 | Outpatient (CLI) | payer MEDICARE, SELFPAY ==
[2020-10-08 07:20] VITALS: BMI 33.7
[2020-10-15 17:08] LABS: Absolute Lymphocyte Count 1.56 X10^3/uL (0.83-4.51); Absolute Neutrophil Count 6.5 X10^3/uL (2.0-7.7); Basophil# 0.05 X10^3/uL; Basophil% 0.5 % (0-1); Eosinophil# 0.25 X10^3/uL; Eosinophils% 2.7 % (0-5); Hematocrit 36.5 % (37-47); Hemoglobin 10.6 g/dL (12.0-15.0); Lymphocyte # 1.56 X10^3/ul (4.0); Lymphocyte % 17.1 % (19-41); Mean Corpuscular Hgb 25.6 pg (27.0-32.0); Mean Corpuscular Volume 88.2 fL (81-99); Mean Platelet Vol. 11.9 fl (6.2-12.0); Monocyte# 0.68 X10^3/uL; Monocyte% 7.5 % (0-10); NRBC Flagged by Analyzer 0 % (0-5); Neutrophil # 6.51 X10^3/uL (2.7-7.7); Neutrophil % 71.4 % (47-70); POSITIVE MORPHOLOGY YES; Platelet Count 256 K/mm3 (150-450); RBC Distribution Width CV 22.7 % (11.6-14.6); RBC Distribution Width SD 71.7 fl (35.1-43.9); Red Blood Count 4.14 M/mm3 (4.2-5.4); White Blood Count 9.1 K/mm3 (4.4-11.0)
[2020-10-15 17:10] LABS: Differential Indicated SCAN CRITERIA MET
[2020-10-15 18:08] LABS: Anisocytosis 1+; Platelet Estimate ADEQUATE (ADEQ); Red Cell Morphology N CHROM NORMAL (NORM C&C)
== END ==
PROVIDERS: PCP Family Medicine Geriatric Medicine; Visit Provider Family Medicine Geriatric Medicine
DX: D64.9 Anemia, unspecified (principal)
CPT/HCPCS: 36415; 85025

== ENCOUNTER → 2020-10-30 10:40 | Outpatient (CLI) | payer MEDICARE, SELFPAY ==
[2020-10-08 07:20] VITALS: BMI 33.7
[2020-10-30 12:20] LABS: Absolute Lymphocyte Count 2.13 X10^3/uL (0.83-4.51); Absolute Neutrophil Count 5.8 X10^3/uL (2.0-7.7); Basophil# 0.04 X10^3/uL; Basophil% 0.4 % (0-1); Eosinophil# 0.29 X10^3/uL; Eosinophils% 3.2 % (0-5); Hemoglobin 11.2 g/dL (12.0-15.0); Lymphocyte # 2.13 X10^3/ul (4.0); Lymphocyte % 23.6 % (19-41); Mean Corp Hgb Conc 30.3 g/dL (32-36); Mean Corpuscular Hgb 26.3 pg (27.0-32.0); Mean Corpuscular Volume 86.9 fL (81-99); Mean Platelet Vol. 11.8 fl (6.2-12.0); Monocyte# 0.74 X10^3/uL; Monocyte% 8.2 % (0-10); NRBC Flagged by Analyzer 0 % (0-5); Neutrophil # 5.78 X10^3/uL (2.7-7.7); Neutrophil % 64.2 % (47-70); POSITIVE MORPHOLOGY YES; Platelet Count 263 K/mm3 (150-450); RBC Distribution Width CV 20.3 % (11.6-14.6); RBC Distribution Width SD 64.1 fl (35.1-43.9); Red Blood Count 4.26 M/mm3 (4.2-5.4)
[2020-10-30 12:25] LABS: Differential Indicated SCAN CRITERIA MET
[2020-10-30 12:36] LABS: AST(SGOT) 18 U/L (15-37); Alanine Aminotransfer ALT/SGPT 27 U/L (13-56); Albumin, Serum 3.5 g/dL (3.2-5.0); Alkaline Phosphatase 91 U/L (45-117); Anion Gap 3 (5-15); BUN 22 mg/dL (7-18); Chloride 105 mmol/L (98-107); Creatinine, Serum 0.84 mg/dL (0.55-1.02); EST Glomerular Filtration Rate 69 mL/min (>60); Est Glom Filt Rate - Afr Amer 83 mL/min (>60); Globulin 3.4 g/dL (2.2-4.2); Glucose 132 mg/dL (74-106); Potassium 4.8 mmol/L (3.5-5.1); Protein, Total 6.9 g/dL (6.4-8.2); Sodium Level 139 mmol/L (136-145); Thyroid Stim Hormone (TSH) 0.09 uIU/mL (0.358-3.74)
[2020-10-30 12:41] LABS: Vitamin D,25 Hydroxy 19.1 ng/mL
[2020-10-30 12:56] LABS: Anisocytosis 1+
[2020-10-31 09:38] LABS: T3 Uptake 33 % (30-39); T4 Free Direct 0.95 ng/dL (0.76-1.46)
== END ==
LOC: LAB.FUTURE 10-29 14:33 → POLAB3 10:40
PROVIDERS: PCP Family Medicine Geriatric Medicine; Visit Provider Family Medicine Geriatric Medicine
DX: E11.9 Type 2 diabetes mellitus without complications (principal); E55.9 Vitamin D deficiency, unspecified; I10 Essential (primary) hypertension; E03.9 Hypothyroidism, unspecified
CPT/HCPCS: 36415; 80053; 82306; 84439; 84443; 84479; 85025

== ENCOUNTER → 2020-11-09 | Outpatient (CLI) | payer MEDICARE, SELFPAY ==
[2020-11-01 11:13] VITALS: BMI 34.0
== END | disposition home or self-care (01) ==
LOC: LABSPEC 17:35
PROVIDERS: PCP Family Medicine Geriatric Medicine; Referring Provider Family Medicine Geriatric Medicine; Visit Provider Family Medicine Geriatric Medicine
DX: R68.83 Chills (without fever) (principal)
CPT/HCPCS: 87633; 87635; C9803; U0003

== ENCOUNTER → 2021-01-16 15:25 | Outpatient (CLI) | payer MEDICARE, SELFPAY ==
[2020-11-01 11:13] VITALS: BMI 34.0
[2021-01-16 16:40] LABS: Absolute Lymphocyte Count 1.48 X10^3/uL (0.83-4.51); Absolute Neutrophil Count 5.9 X10^3/uL (2.0-7.7); Basophil# 0.05 X10^3/uL; Basophil% 0.6 % (0-1); Eosinophil# 0.32 X10^3/uL; Eosinophils% 3.8 % (0-5); Hematocrit 32.5 % (37-47); Hemoglobin 9.4 g/dL (12.0-15.0); Lymphocyte # 1.48 X10^3/ul (4.0); Lymphocyte % 17.5 % (19-41); Mean Corp Hgb Conc 28.9 g/dL (32-36); Mean Corpuscular Hgb 25.5 pg (27.0-32.0); Mean Corpuscular Volume 88.3 fL (81-99); Mean Platelet Vol. 12.1 fl (6.2-12.0); Monocyte# 0.63 X10^3/uL; Monocyte% 7.5 % (0-10); NRBC Flagged by Analyzer 0 % (0-5); Neutrophil # 5.92 X10^3/uL (2.7-7.7); Neutrophil % 70.1 % (47-70); Platelet Count 277 K/mm3 (150-450); RBC Distribution Width CV 15.4 % (11.6-14.6); RBC Distribution Width SD 49.8 fl (35.1-43.9); Red Blood Count 3.68 M/mm3 (4.2-5.4); White Blood Count 8.4 K/mm3 (4.4-11.0)
[2021-01-16 17:08] LABS: BNP,B-Type NATRIURETIC PEPTIDE 214.1 pg/mL (0-100)
[2021-01-16 17:26] LABS: ALB/GLOB Ratio 1.1 RATIO (0.9-2.4); AST(SGOT) 15 U/L (15-37); Alanine Aminotransfer ALT/SGPT 17 U/L (13-56); Albumin, Serum 3.5 g/dL (3.2-5.0); Alkaline Phosphatase 85 U/L (45-117); Anion Gap 7 (5-15); BUN 17 mg/dL (7-18); BUN/Creat Ratio 18.6 RATIO (10-20); Calcium,Total 8.8 mg/dL (8.5-10.1); Chloride 105 mmol/L (98-107); Creatinine, Serum 0.92 mg/dL (0.55-1.02); EST Glomerular Filtration Rate 63 mL/min (>60); Est Glom Filt Rate - Afr Amer 76 mL/min (>60); Globulin 3.2 g/dL (2.2-4.2); Glucose 215 mg/dL (74-106); Protein, Total 6.7 g/dL (6.4-8.2); Sodium Level 139 mmol/L (136-145); Thyroid Stim Hormone (TSH) 0.05 uIU/mL (0.358-3.74)
== END ==
PROVIDERS: PCP Family Medicine Geriatric Medicine; Visit Provider Family Medicine Geriatric Medicine
DX: D64.9 Anemia, unspecified (principal); R53.83 Other fatigue
CPT/HCPCS: 36415; 80053; 83880; 84443; 85025; 87077; 87086; 87088; 87186

== ENCOUNTER → 2021-02-07 13:16 | Outpatient (CLI) | payer MEDICARE, SELFPAY ==
[2021-02-05 13:23] VITALS: BMI 34.3
--- NOTE | 2021-02-07 14:20 | RAD_ITS ---
STUDY: X-RAY - ABDOMEN/PELVIS REASON FOR EXAM: Female, 81 years old. ABD PAIN TECHNIQUE: AP supine and upright views of the abdomen and pelvis. COMPARISON: None. FINDINGS: Normal visualized lung bases. There is an unremarkable bowel gas pattern. There is no demonstrated free abdominal air. The visualized liver, spleen and kidneys are grossly normal in size and morphology. Normal soft tissue structures. Normal visualized osseous structures. RAD/Abd Decub and/or Erect(Portabl IMPRESSION: Normal x-ray examination of the abdomen and pelvis. Electronically Signed: Yann Kaur MD at 17:12 EDT Tel , Service support ,
[2021-02-07 15:10] LABS: Absolute Lymphocyte Count 2.09 X10^3/uL (0.83-4.51); Absolute Neutrophil Count 9.2 X10^3/uL (2.0-7.7); Basophil# 0.06 X10^3/uL; Basophil% 0.5 % (0-1); Eosinophil# 0.52 X10^3/uL; Hematocrit 29.7 % (37-47); Hemoglobin 8.4 g/dL (12.0-15.0); Lymphocyte # 2.09 X10^3/ul (0.83-4.51); Lymphocyte % 16.1 % (19-41); Mean Corp Hgb Conc 28.3 g/dL (32-36); Mean Corpuscular Hgb 24.1 pg (27.0-32.0); Mean Corpuscular Volume 85.1 fL (81-99); Mean Platelet Vol. 11.8 fl (6.2-12.0); Monocyte# 1.01 X10^3/uL; Monocyte% 7.8 % (0-10); NRBC Flagged by Analyzer 0 % (0-5); Neutrophil # 9.24 X10^3/uL (2.7-7.7); Neutrophil % 71.1 % (47-70); Platelet Count 310 K/mm3 (150-450); RBC Distribution Width CV 16.2 % (11.6-14.6); RBC Distribution Width SD 50.3 fl (35.1-43.9); Red Blood Count 3.49 M/mm3 (4.2-5.4)
[2021-02-07 15:23] LABS: Vitamin D,25 Hydroxy 24.1 ng/mL
[2021-02-07 15:28] LABS: AST(SGOT) 11 U/L (15-37); Alanine Aminotransfer ALT/SGPT 16 U/L (13-56); Albumin, Serum 3.5 g/dL (3.2-5.0); Alkaline Phosphatase 85 U/L (45-117); Anion Gap 6 (5-15); BUN 19 mg/dL (7-18); BUN/Creat Ratio 19.3 RATIO (10-20); Chloride 104 mmol/L (98-107); Creatinine, Serum 0.98 mg/dL (0.55-1.02); EST Glomerular Filtration Rate 58 mL/min (>60); Est Glom Filt Rate - Afr Amer 70 mL/min (>60); Globulin 3.4 g/dL (2.2-4.2); Glucose 101 mg/dL (74-106); Potassium 4.3 mmol/L (3.5-5.1); Protein, Total 6.9 g/dL (6.4-8.2); Sodium Level 140 mmol/L (136-145); Thyroid Stim Hormone (TSH) 0.26 uIU/mL (0.358-3.74)
[2021-02-08 10:12] LABS: T3 Uptake 34 % (30-39); T4 Free Direct 1.03 ng/dL (0.76-1.46)
== END ==
PROVIDERS: PCP Family Medicine Geriatric Medicine; Visit Provider Family Medicine Geriatric Medicine
DX: E11.9 Type 2 diabetes mellitus without complications (principal); E55.9 Vitamin D deficiency, unspecified; I10 Essential (primary) hypertension; E05.90 Thyrotoxicosis, unspecified without thyrotoxic crisis or storm; R10.9 Unspecified abdominal pain
CPT/HCPCS: 36415; 74018; 74019; 80053; 82306; 84439; 84443; 84479; 85025

== ENCOUNTER 2021-03-15 19:24 | Emergency (ER) | payer MEDICARE, SELFPAY ==
[2021-02-26 12:57] VITALS: BMI 32.2
[2021-03-15 19:25] VITALS: BP 165/84; PULSE 56; RESP 16; TEMP 36.6; O2SAT 100; BMI 31.2
[2021-03-15 20:24] LABS: Bacteria 0 SEEN /hpf (None Seen); Mucous, Urine 0 SEEN /hpf (<or=2+)
[2021-03-15 20:27] LABS: Absolute Lymphocyte Count 1.91 X10^3/uL (0.83-4.51); Absolute Neutrophil Count 7.6 X10^3/uL (2.0-7.7); Basophil# 0.07 X10^3/uL; Basophil% 0.7 % (0-1); Eosinophil# 0.31 X10^3/uL; Eosinophils% 2.9 % (0-5); Hematocrit 38.1 % (37-47); Hemoglobin 11.3 g/dL (12.0-15.0); Lymphocyte # 1.91 X10^3/ul (0.83-4.51); Lymphocyte % 18.1 % (19-41); Mean Corp Hgb Conc 29.7 g/dL (32-36); Mean Corpuscular Hgb 25.7 pg (27.0-32.0); Mean Corpuscular Volume 86.6 fL (81-99); Mean Platelet Vol. 11.5 fl (6.2-12.0); Monocyte# 0.65 X10^3/uL; Monocyte% 6.1 % (0-10); NRBC Flagged by Analyzer 0 % (0-5); Neutrophil # 7.58 X10^3/uL (2.7-7.7); Neutrophil % 71.6 % (47-70); Platelet Count 251 K/mm3 (150-450); RBC Distribution Width CV 18.6 % (11.6-14.6); RBC Distribution Width SD 58.7 fl (35.1-43.9); White Blood Count 10.6 K/mm3 (4.4-11.0)
[2021-03-15 20:30] LABS: Color, Urine Yellow (Yellow); Glucose, Dipstick Normal (Normal); Ketone-Dipstick Negative (Negative); Leukocyte Esterase-Dipstick 500 /ul (Negative); Nitrite-Dipstick Negative (Negative); Occult Blood-Urine 25 /ul (Negative); Protein-Dipstick 15 mg/dl (Negative); Specific Gravity, Urine 1.015 (1.002-1.030); Urine Bilirubin Dipstick Negative (Negative); Urine Clarity Sl. Cloudy (Clear); Urine Urobilinogen Normal (Normal)
[2021-03-15 20:42] LABS: Anion Gap 7 (5-15); BUN 17 mg/dL (7-18); BUN/Creat Ratio 18.2 RATIO (10-20); Calcium,Total 9.4 mg/dL (8.5-10.1); Chloride 102 mmol/L (98-107); Creatinine, Serum 0.93 mg/dL (0.55-1.02); EST Glomerular Filtration Rate 61 mL/min (>60); Est Glom Filt Rate - Afr Amer 74 mL/min (>60); Estimated Creatinine Clearance 34.08 ml/min; Glucose 196 mg/dL (74-106); Potassium 4.1 mmol/L (3.5-5.1); Sodium Level 139 mmol/L (136-145)
[2021-03-15 20:44] LABS: Amorphous Sediment 1+ URATE; Red Blood Cells-Urine 0-5 SEEN /hpf (0-5); Renal Epithelial Cells 0-5 SEEN /hpf (0-5); Squamous Epithelial Cells - UA 5-10 SEEN /hpf (5-10); White Blood Cells 25-50 SEEN /hpf (0-5)
--- NOTE | 2021-03-15 21:23 | CT_ITS ---
HISTORY: abdominal pain TECHNIQUE: Helically acquired images were obtained of the abdomen and pelvis following the intravenous administration of 100 ML of Isovue-370 Iodinated contrast. 2D reformats. No oral contrast was administered. A radiation dose optimization technique was used for this scan. COMPARISON: CT scans of the chest from July 22, 2012 and May 31, 2012 both imaged down slightly into the abdomen. The most recent study does go down below the adrenal glands, lower than the original May 2012 study. FINDINGS: # of images incl. paperwork: [id number] LUNG BASES: Not all of the bases of the lungs are imaged. Not all of the liver as imaged. Some of the liver is more cranial than the cranial most image. Calcification within the region of the mitral valve. No significant cardiomegaly CT abdomen: Anterior listhesis of L5 on S1 without perceived spondylolysis. Facet arthropathy. Preservation of vertebral body height. Multilevel degenerative disc disease greatest at the L5-S1 level with the anterior subluxation of L5 on S1 with facet arthropathy, ligamentum thickening, enthesophytes, and disc bulge contributing to moderate spinal canal stenosis. This is likely chronic The gallbladder has been resected. Within the pancreatic head there is some biliary ductal dilatation. I measured the diameter of the common bile duct within the pancreatic head at 7 mm. This is well within the realm of normal for a 81-year-old patient postcholecystectomy. Liver, spleen, pancreas, and adrenal glands, are normal. Renal scarring. Hypodense areas may represent some renal cysts. No hydronephrosis. No hydroureter. The aorta is diseased with atherosclerosis but without aneurysm or dissection. CT pelvis: No ascites is present. The appendix is normal. Series 2 image 59. The uterus is not identified, and likely has been resected. The bladder is normal. Bowel-gas pattern is normal. CT/Abdomen/Pelvis W IV Cont ONLY IMPRESSION: Minimal induration in the anterior abdominal wall in the subcutaneous fat possibly related to subcutaneous injection such as heparin, insulin, for an antiemetic. Gluteal calcifications consistent with injection granulomas. Renal scarring without hydronephrosis. Atherosclerosis. Cholecystectomy with biliary ductal dilatation well within the realm of normal in an 81-year-old patient postcholecystectomy. No acute intra-abdominal process perceived Individualized dose optimization techniques were used for this CT. at 2254 Reported and signed by: Gregorio Barton MD Electronically Signed: Gregorio Barton MD at 22:53 EDT Tel , Service support ,
--- NOTE | 2021-03-15 21:24 | EDS_ITS ---
HPI HPI - GI History of Present Illness Chief Complaint: Abd Pain Narrative Narrative: 81-year-old female presenting with abdominal pain. She describes it is in the right upper quadrant/epigastrium. She states has had a cholecystectomy before and is not her gallbladder. It does not appear to correlate with eating. She states a couple of days ago it woke her up in the middle the night. Pain has been intermittent. He states it is worse when she stands up or twists her trunk. She denies nausea or vomiting. She denies constipation or diarrhea. She denies fever or chills. 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 Migraine NSTEMI (non-ST elevated myocardial infarction) PAD (peripheral artery disease) SOB (shortness of breath) Type II diabetes mellitus Home Medications insulin glargine U-300 conc 80 unit SQ DAILY 11/05/15 [History Last Taken 06/09/20] sertraline 100 mg PO DAILY 02/26/19 [History Last Taken 06/11/20] insulin lispro 100 unit/mL subcutaneous pen 0 unit SC TIDCM PRN 02/07/20 [History Last Taken 06/10/20] albuterol sulfate 2 puff INHALATION BID 06/11/20 [History Last Taken 06/10/20] aspirin 162 mg PO DAILY@0800 06/11/20 [History Last Taken 06/11/20] atenolol 50 mg PO DAILY 06/11/20 [History Last Taken 06/11/20] atorvastatin 20 mg PO DAILY 06/11/20 [History Last Taken 06/11/20] furosemide 40 mg PO BID 06/11/20 [History Last Taken 06/11/20] lisinopril 40 mg PO DAILY 06/11/20 [History Last Taken 06/11/20] multivitamin 1 tab PO DAILY 06/11/20 [History Last Taken 06/11/20] amlodipine 5 mg tablet 5 mg PO DAILY #90 tab 07/04/20 [Rx Last Taken Unknown] potassium chloride 10 mEq tablet,extended release 20 meq PO DAILY #60 tablet.er 07/04/20 [Rx Last Taken Unknown] nitroglycerin 0.4 mg sublingual tablet 0.4 mg SUBLINGUAL Q5M PRN #25 tab 10/04/20 [Rx Last Taken Unknown] polysaccharide iron complex 150 mg PO DAILYCM #90 cap 11/01/20 [Rx Last Taken Unknown] sucralfate 1 gm PO 4X/DAY #120 tab 11/01/20 [Rx Last Taken Unknown] isosorbide mononitrate 60 mg tablet,extended release 24 hr See Rx Instructions .ROUTE .COMPLEX #90 tablet 02/01/21 [Rx Last Taken Unknown] Allergy/AdvReac Type Severity Reaction Status Date / Time latex Allergy Rash Verified 02/26/21 13:02 Family History Father CVA (cerebral vascular accident) Mother Heart disease CAD (coronary artery disease) Sister CAD (coronary artery disease) Daughter CAD (coronary artery disease) Myocardial infarction Daughter Diabetes Surgical History H/O: hysterectomy History of carpal tunnel release History of cholecystectomy History of coronary artery stent placement Hx of cholecystectomy Hx of knee surgery S/P complete hysterectomy Social History Smoking Status: Never smoker alcohol intake: never ROS ROS ED Constitutional Constitutional ED: Denies chills, fever(s) or sweats Eyes Eyes: Denies blurry vision or change in vision ENT ENT ED: Denies ear pain, rhinorrhea or sore throat Cardiovascular Cardiovascular: Denies chest pain, palpitations or racing heartbeat Respiratory/Chest Respiratory/Chest: Denies cough, dyspnea or sputum Gastrointestinal Gastrointestinal: Reports abdominal pain; Denies constipation, diarrhea or vomiting Genitourinary Genitourinary ED: Denies dysuria, hematuria or urinary frequency Musculoskeletal Musculoskeletal: Denies arthralgias, myalgias or neck pain Integumentary Denies abscess, Abrasions or rash Neurologic Neurologic: Denies headache(s), paresthesias or weakness Psychiatric Psychiatric: Denies anxiety, depression, suicidal ideation or suicidal thoughts Endocrine Endocrinology: Denies polydipsia or polyuria EXAM Physical Exam Const Vital Signs: 03/15/21 19:25 03/15/21 22:09 Temperature 97.8 F Temperature Source Temporal Pulse Rate 56 L Respiratory Rate 16 16 Blood Pressure 165/84 H Blood Pressure Mean 111 Pulse Ox 100 Oxygen Delivery Method Room Air General Appearance ED: Negative for pallor HEENT Reports normocephalic, head/scalp atraumatic and moist mucous membranes normocephalic Eyes PERRL and EOMs intact bilaterally Chest Wall inspection of chest normal and palpation of chest normal Resp normal respiratory effort and clear to auscultation bilaterally Auscultation: Negative for rales, rhonchi or wheezes Cardio regular rate and regular rhythm GI normal to inspection, nondistended, normoactive bowel sounds and non-distended GI Narrative: Tenderness to palpation in the right upper quadrant and epigastrium. Auscultation: normoactive bowel sounds Palpation: soft Narrative: Deferred Back/Spine Negative for no CVA tenderness Extremity normal to inspection General Extremety ED: Negative for edema or tenderness General Extremity: Negative for edema Neuro oriented x3 and CN's II-XII intact bilaterally Sensorium / Orientation: alert Motor Exam: strength 5/5 throughout Psych mental status grossly normal Attitude: No agitated Skin no rashes or lesions noted and no wounds General Skin Exam: Negative for jaundice or pallor MDM MDM MDM Narrative Medical decision making narrative: Patient presents with right upper abdominal pain. She denies any trauma. She not having any other GI complaints. She had a CBC drawn today which shows a white blood cell count of 10.6, hemoglobin hematocrit are stable, platelets are normal. Renal function and electrolytes are normal. Urinalysis shows 500 leukocyte esterase without nitrites however it is slightly contaminated. Patient does not have any urinary symptoms. I will hold off on treatment for now. Patient had CT of the abdomen pelvis with IV contrast which shows a small area of induration in the area where she is complaining of pain however on exam there is no signs of cellulitis or crepitance. Patient counseled to use Tylenol and ice to the area at home. If it starts to appear red or inflamed she should return for repeat evaluation. Impression: 1. Abdominal pain Lab Data Attestation: I reviewed the patient's lab results. Labs: Laboratory Results - last 24 hr 03/15/21 03/15/21 03/15/21 20:15 20:20 20:20 WBC 10.6 RBC 4.40 Hgb 11.3 L Hct 38.1 MCV 86.6 MCH 25.7 L MCHC 29.7 L RDW Std Deviation 58.7 H RDW Coeff of Aubrie 18.6 H Plt Count 251 MPV 11.5 Immature Gran % (Auto) 0.600 Neut % (Auto) 71.6 H Lymph % (Auto) 18.1 L [place] % (Auto) 6.1 Eos % (Auto) 2.9 Baso % (Auto) 0.7 Absolute Neuts (auto) 7.6 Absolute Lymphs (auto) 1.91 Nucleated RBC % 0 Sodium 139 Potassium 4.1 Chloride 102 Carbon Dioxide 30.0 Anion Gap 7 BUN 17 Creatinine 0.93 Estim Creat Clear Calc 34.08 Est GFR (MDRD) Af Amer 74 Est GFR (MDRD) Non-Af 61 BUN/Creatinine Ratio 18.2 Glucose 196 H Calcium 9.4 Total Bilirubin Direct Bilirubin AST ALT Alkaline Phosphatase Total Protein Albumin Globulin Lipase Urine Color Yellow Urine Clarity Sl. Cloudy Urine pH 5.0 Ur Specific [place] 1.015 Urine Protein 15 H Urine Glucose (UA) Normal Urine Ketones Negative Urine Occult Blood 25 H Urine Nitrite Negative Urine Bilirubin Negative Urine Urobilinogen Normal Ur Leukocyte Esterase 500 H Urine RBC 0-5 SEEN Urine WBC 25-50 SEEN Ur Squamous Epith Cells 5-10 SEEN Ur Renal Epithelial Cell 0-5 SEEN Amorphous Sediment 1+ URATE Urine Bacteria 0 SEEN Urine Mucus 0 SEEN 03/15/21 20:20 WBC RBC Hgb Hct MCV MCH MCHC RDW Std Deviation RDW Coeff of Aubrie Plt Count MPV Immature Gran % (Auto) Neut % (Auto) Lymph % (Auto) [place] % (Auto) Eos % (Auto) Baso % (Auto) Absolute Neuts (auto) Absolute Lymphs (auto) Nucleated RBC % Sodium Potassium Chloride Carbon Dioxide Anion Gap BUN Creatinine Estim Creat Clear Calc Est GFR (MDRD) Af Amer Est GFR (MDRD) Non-Af BUN/Creatinine Ratio Glucose Calcium Total Bilirubin 0.70 Direct Bilirubin 0.18 AST 17 ALT 21 Alkaline Phosphatase 96 Total Protein 7.4 Albumin 3.9 Globulin 3.5 Lipase 53 L Urine Color Urine Clarity Urine pH Ur Specific [place] Urine Protein Urine Glucose (UA) Urine Ketones Urine Occult Blood Urine Nitrite Urine Bilirubin Urine Urobilinogen Ur Leukocyte Esterase Urine RBC Urine WBC Ur Squamous Epith Cells Ur Renal Epithelial Cell Amorphous Sediment Urine Bacteria Urine Mucus Radiography Diagnostic Testing: Radiology Impression Abdomen/Pelvis CT 03/15/21 21:23 IMPRESSION: Minimal induration in the anterior abdominal wall in the subcutaneous fat possibly related to subcutaneous injection such as heparin, insulin, for an antiemetic. Gluteal calcifications consistent with injection granulomas. Renal scarring without hydronephrosis. Atherosclerosis. Cholecystectomy with biliary ductal dilatation well within the realm of normal in an 81-year-old patient postcholecystectomy. No acute intra-abdominal process perceived Individualized dose optimization techniques were used for this CT. at 2254 Reported and signed by: Gregorio Barton MD Electronically Signed: Gregorio Barton MD at 22:53 EDT Tel , Service support , Discharge Plan Triage Chief Complaint: Abd Pain ED Provider: Hiren Pickett Dx/Rx/DC Orders Instructions: ED Abdominal Pain Unkn Cause Fem Prescriptions: No Action potassium chloride 10 mEq tablet extended release 20 meq PO DAILY Qty: 60 RF: 12 amlodipine 5 mg tablet 5 mg PO DAILY Qty: 90 RF: 4 insulin lispro 100 unit/mL insulin pen 0 unit SC TIDCM PRN (Reason: hyperglycemia) RF: 0 insulin glargine U-300 conc 300 UNIT/ML insulin pen 80 unit SQ DAILY RF: 0 sertraline 100 MG tablet 100 mg PO DAILY RF: 0 multivitamin 1 EACH tablet 1 tab PO DAILY RF: 0 aspirin 81 MG tablet 162 mg PO DAILY@0800 RF: 0 albuterol sulfate 90 mcg/actuation HFA aerosol inhaler 2 puff INHALATION BID RF: 0 furosemide 40 MG tablet 40 mg PO BID RF: 0 atorvastatin 20 MG tablet 20 mg PO DAILY RF: 0 lisinopril 40 MG tablet 40 mg PO DAILY RF: 0 atenolol 50 MG tablet 50 mg PO DAILY RF: 0 sucralfate 1 GM tablet 1 gm PO 4X/DAY Qty: 120 RF: 1 polysaccharide iron complex 150 MG capsule 150 mg PO DAILYCM Qty: 90 RF: 3 nitroglycerin 0.4 mg tablet, sublingual 0.4 mg SUBLINGUAL Q5M PRN (Reason: Chest Pain) Qty: 25 RF: 3 isosorbide mononitrate 60 mg tablet extended release 24 hr See Rx Instructions .ROUTE .COMPLEX Qty: 90 RF: 3 Primary Care Provider: Riley Roca Chi Referrals: Riley Roca Chi, MD [Primary Care Provider] - Disposition Disposition: Home, self care
[2021-03-15 22:09] VITALS: RESP 16
[2021-03-15 22:13] LABS: AST(SGOT) 17 U/L (15-37); Alanine Aminotransfer ALT/SGPT 21 U/L (13-56); Albumin, Serum 3.9 g/dL (3.2-5.0); Alkaline Phosphatase 96 U/L (45-117); Bilirubin, Direct 0.18 mg/dL (0.00-0.30); Globulin 3.5 g/dL (2.2-4.2); Lipase 53 U/L (73-393); Protein, Total 7.4 g/dL (6.4-8.2)
[2021-03-15] MEDS: Morphine 4 MG/ML Syringe IV (23:01)
[2021-03-15 23:23] VITALS: RESP 18
== END 2021-03-15 23:24 | disposition home or self-care (01) ==
PROVIDERS: Emergency Provider Student in an Organized Health Care Education/Training Program; PCP Family Medicine Geriatric Medicine
DX: R10.13 Epigastric pain (principal); R10.11 Right upper quadrant pain; M19.90 Unspecified osteoarthritis, unspecified site; I25.10 Atherosclerotic heart disease of native coronary artery without angina pectoris; E11.9 Type 2 diabetes mellitus without complications; E78.5 Hyperlipidemia, unspecified; I11.0 Hypertensive heart disease with heart failure; I50.32 Chronic diastolic (congestive) heart failure; Z79.4 Long term (current) use of insulin; Z79.51 Long term (current) use of inhaled steroids; Z79.899 Other long term (current) drug therapy
CPT/HCPCS: 74177; 80048; 80076; 81001; 83690; 85025; 96374; 99282; Q9967; A4216

== ENCOUNTER 2021-04-12 13:13 | Inpatient (IN) | payer MEDICARE, SELFPAY ==
[2021-04-11 14:11] VITALS: BMI 31.8
[2021-04-12 13:13] VITALS: BP 146/60; PULSE 50; RESP 16; TEMP 35.8; O2SAT 98; BMI 31.6
[2021-04-12] MEDS: Diphth,Pertuss(Acell),Tet Vac 0.5 ML Vial IM (13:51)
[2021-04-12] MEDS: Morphine 4 MG/ML Syringe IV (13:52)
--- NOTE | 2021-04-12 13:59 | EDS_ITS ---
HPI History of Present Illness Chief Complaint: Back Informant: patient Onset/Context/Timing Onset: Today Narrative Narrative: Patient is an 81-year-old female presenting after mechanical fall. She was attempting to plant pearson when she stood up from bed he lost her balance and fell backwards. She landed on her back and hit her head. No loss of consciousness. She does take 81 mg of aspirin daily. She took Tylenol after the fall with no relief of her pain. She is having significant back pain and so she came to emergency room to be evaluated further. The fall was 1 to 2 hours prior to arrival. She denies any numbness in her extremities. She is complain of pain in her lower abdomen rating from her back. Seems to be worse on the right side. No associated nausea or vomiting. No chest pain. States she is otherwise been feeling well. No other complaints at this time. Patient lives home alone. She occasionally uses a cane to help with ambulation. Tetanus Immunization: Unknown [facility] Medical History (Updated 04/12/21 @ 16:42 by Alejandro WADDELL) History of hemorrhoids PAD (peripheral artery disease) Home Medications insulin glargine U-300 conc 80 unit SQ DAILY 11/05/15 [History Last Taken 04/11/21] sertraline 100 mg PO DAILY 02/26/19 [History Last Taken 04/12/21] albuterol sulfate 2 puff INHALATION BID 06/11/20 [History Last Taken 04/11/21] aspirin 162 mg PO DAILY@0800 06/11/20 [History Last Taken 04/12/21] atenolol 50 mg PO DAILY 06/11/20 [History Last Taken 04/12/21] atorvastatin 20 mg PO DAILY 06/11/20 [History Last Taken 04/12/21] furosemide 40 mg PO BID 06/11/20 [History Last Taken 04/12/21] lisinopril 40 mg PO DAILY 06/11/20 [History Last Taken 04/12/21] amlodipine 5 mg tablet 5 mg PO DAILY #90 tab 07/04/20 [Rx Last Taken 04/12/21] nitroglycerin 0.4 mg sublingual tablet 0.4 mg SUBLINGUAL Q5M PRN #25 tab 10/04/20 [Rx Last Taken 04/10/21] sucralfate 1 gm PO 4X/DAY #120 tab 11/01/20 [Rx Last Taken 04/12/21] isosorbide mononitrate 60 mg PO DAILY 04/12/21 [History Last Taken 04/12/21] pantoprazole 40 mg PO DAILY 04/12/21 [History Last Taken 04/12/21] Allergy/AdvReac Type Severity Reaction Status Date / Time latex Allergy Rash Verified 04/12/21 13:15 Family History Father CVA (cerebral vascular accident) Mother Heart disease CAD (coronary artery disease) Sister CAD (coronary artery disease) Daughter CAD (coronary artery disease) Myocardial infarction Daughter Diabetes Surgical History (Updated 04/12/21 @ 16:[address] Leilani Lewis MD) H/O: hysterectomy History of carpal tunnel release History of coronary artery stent placement Hx of cholecystectomy Hx of knee surgery Social History Smoking Status: Never smoker alcohol intake: never ROS ROS ED Constitutional Constitutional ED: Denies chills or fever(s) Eyes Eyes: Denies change in vision ENT ENT ED: Denies ear pain or sore throat Cardiovascular Cardiovascular: Denies chest pain Respiratory/Chest Respiratory/Chest: Denies cough or dyspnea Gastrointestinal Gastrointestinal: Denies abdominal pain, nausea or vomiting Musculoskeletal Musculoskeletal: Reports arthralgias, back pain and myalgias; Denies neck pain Integumentary Reports Abrasions Neurologic Neurologic: Denies headache(s) or weakness Psychiatric Psychiatric: Denies anxiety or depression EXAM Physical Exam Const Vital Signs: 04/12/21 13:13 Temperature 96.5 F L Temperature Source Temporal Pulse Rate 50 L Respiratory Rate 16 Blood Pressure 146/60 H Blood Pressure Mean 88 Pulse Ox 98 Oxygen Delivery Method Room Air Positive well nourished, well developed and obese General Appearance ED: well developed Nutritional Appearance: obese HEENT Reports TM's clear atraumatic Nose: Negative for septum abnormal Tympanic Membrane ED: Yes TM's clear Eyes PERRL and EOMs intact bilaterally Neck full ROM Neck Narrative: No step-off sign General: Negative for tenderness Chest Wall inspection of chest normal and palpation of chest normal Resp normal respiratory effort and clear to auscultation bilaterally Cardio regular rhythm and no murmurs Rate: regular rate GI normal to inspection, nondistended, normoactive bowel sounds Back/Spine Back/Spine Narrative: Significant pain diffusely in the thoracic and lumbar spine. Difficult to pinpoint area of pain. No obvious deformity. Extremity normal to inspection and full ROM Extremity Narrative: Tenderness palpation with range of motion of the right hip and palpation of the pelvis. No pain with logroll of the bilateral lower extremities. No bony abnormalities deformity noted. Neuro oriented x3, moves all extremities and no sensory deficits noted Sensorium / Orientation: alert Skin Skin Narrative: Superficial abrasion to the right forearm. Small ecchymosis to the left forearm noted. No active bleeding. MDM MDM MDM Narrative Medical decision making narrative: Patient evaluated after mechanical fall. She appears very uncomfortable and is difficult to examine because of her significant back pain. She did hit her head. CT of the head and C-spine are obtained which not show any acute process. Given the amount of pain she is I did obtain CT of the chest abdomen pelvis without contrast to further evaluate for any bony injury or other is signs of trauma as well as an x-ray of her pelvis and right hip. X-ray interpreted by myself as well as radiology. She does not have any focal neurologic deficits. CT does show acute T12 compression fracture with 2 mm retropulsion into the spinal canal. Patient is given morphine for pain control in the ER. She does have improvement of her pain but has significant pain when she attempts to move. As she lives home alone I do not think she is safe to go home. Should be admitted for pain control, PT and OT evaluation. Patient is agreeable with this plan of care. Tetanus is updated in the emergency room. Baseline screening labs are obtained prior to admission which are unremarkable. Lab Data Attestation: I reviewed the patient's lab results. Labs: Laboratory Results - last 24 hr 04/12/21 04/12/21 16:05 16:05 WBC 11.7 H RBC 3.97 L Hgb 10.4 L Hct 33.5 L MCV 84.4 MCH 26.2 L MCHC 31.0 L RDW Std Deviation 53.6 H RDW Coeff of Aubrie 17.2 H Plt Count 195 MPV 11.7 Immature Gran % (Auto) 1.000 H Neut % (Auto) 80.7 H Lymph % (Auto) 11.8 L [place] % (Auto) 5.1 Eos % (Auto) 1.1 Baso % (Auto) 0.3 Absolute Neuts (auto) 9.5 H Absolute Lymphs (auto) 1.38 Nucleated RBC % 0 Sodium 143 Potassium 3.7 Chloride 106 Carbon Dioxide 29.0 Anion Gap 8 BUN 13 Creatinine 0.80 Estim Creat Clear Calc 39.62 Est GFR (MDRD) Af Amer 89 Est GFR (MDRD) Non-Af 73 BUN/Creatinine Ratio 16.3 Glucose 139 H Calcium 8.7 Radiography Diagnostic Testing: Radiology Impression Brain CT 04/12/21 14:00 IMPRESSION: Normal unenhanced CT scan of the brain. Electronically Signed: Yann Kaur MD at 14:51 EDT Tel , Service support , Cervical Spine CT 04/12/21 14:00 IMPRESSION: No acute fracture or subluxation. Electronically Signed: Yann Kaur MD at 14:49 EDT Tel , Service support , Chest/Abdomen/Pelvis CT 04/12/21 14:00 IMPRESSION: 1. No CT evidence of acute traumatic aortic injury. 2. No solid organ or bowel injury. 3. Suspect mild compression fracture of T12 with 2 mm retropulsion into the spinal canal. Clinical correlation and MRI would be useful. Electronically Signed: Yann Kaur MD at 15:00 EDT Tel , Service support , Hip/Pelvis X-Ray 04/12/21 14:11 IMPRESSION: Normal x-ray examination of the pelvis and hip. Electronically Signed: Yann Kaur MD at 14:40 EDT Tel , Service support , Discharge Plan Triage Chief Complaint: Back ED Provider: Melany Enciso Dx/Rx/DC Orders Clinical Impression: T12 compression fracture, Fall, Back pain Prescriptions: No Action amlodipine 5 mg tablet 5 mg PO DAILY Qty: 90 RF: 4 insulin glargine U-300 conc 300 UNIT/ML insulin pen 80 unit SQ DAILY RF: 0 sertraline 100 MG tablet 100 mg PO DAILY RF: 0 aspirin 81 MG tablet 162 mg PO DAILY@0800 RF: 0 albuterol sulfate 90 mcg/actuation HFA aerosol inhaler 2 puff INHALATION BID RF: 0 furosemide 40 MG tablet 40 mg PO BID RF: 0 atorvastatin 20 MG tablet 20 mg PO DAILY RF: 0 lisinopril 40 MG tablet 40 mg PO DAILY RF: 0 atenolol 50 MG tablet 50 mg PO DAILY RF: 0 sucralfate 1 GM tablet 1 gm PO 4X/DAY Qty: 120 RF: 1 pantoprazole 40 mg tablet,delayed release (DR/EC) 40 mg PO DAILY RF: 0 isosorbide mononitrate 60 mg tablet extended release 24 hr 60 mg PO DAILY RF: 0 nitroglycerin 0.4 mg tablet, sublingual 0.4 mg SUBLINGUAL Q5M PRN (Reason: Chest Pain) Qty: 25 RF: 3 Primary Care Provider: Riley Roca Chi Referrals: Riley Roca Chi, MD [Primary Care Provider] -
--- NOTE | 2021-04-12 14:00 | CT_ITS ---
STUDY: CT CHEST, ABDOMEN T PELVIS WITHOUT CONTRAST REASON FOR EXAM: Female, 81 years old. trauma, back pain, rib pain, Hx neisha, hysterectomy, CHF, heart stents, MD CAD, COPD RADIATION DOSAGE (If Supplied By Facility): CTDIvol = ( 22.92 ) mGy, DLP = ( 1912.79 ) mGycm TECHNIQUE: Transaxial imaging was performed without the administration of intravenous contrast material. Individualized dose optimization techniques were used for this CT. COMPARISON: No relevant priors. FINDINGS: CHEST The lungs are normal. There is no demonstrated pleural abnormality. There is moderate cardiac enlargement. There are calcifications of the coronary arteries. Normal mediastinum. Normal hilar regions. Normal unenhanced pulmonary arteries. There is atherosclerotic calcification of the aortic arch with tortuosity and elongation of the aortic arch and descending thoracic aorta. Normal osseous structures. There is no demonstrated abnormality of the visualized upper abdomen. ABDOMEN The visualized lung bases are unremarkable. The visualized portions of the heart are within normal limits. Normal liver. There is non-visualization of the gallbladder, which may be secondary to either contraction or a prior cholecystectomy. Normal spleen. Normal pancreas. Normal bilateral adrenal glands. Normal right kidney. Normal left kidney. Normal visualized stomach. Normal small intestine. Normal colon. The appendix is visualized and appears normal. Normal abdominal aorta. Normal inferior vena cava. Normal retroperitoneum. Normal abdominal wall. Suspect mild compression fracture of T12 with 2 mm retropulsion into the spinal canal. Clinical correlation and MRI may be useful. PELVIS Normal urinary bladder. Normal visualized small intestine. Normal visualized colon. There is no pelvic fluid. There is no pelvic lymphadenopathy or mass lesion. Normal visualized pelvic arteries. Normal abdominal wall. Normal osseous structures. CT/CT Chest, Abd, Pelvis WO Cont IMPRESSION: 1. No CT evidence of acute traumatic aortic injury. 2. No solid organ or bowel injury. 3. Suspect mild compression fracture of T12 with 2 mm retropulsion into the spinal canal. Clinical correlation and MRI would be useful. Electronically Signed: Yann Kaur MD at 15:00 EDT Tel , Service support ,
--- NOTE | 2021-04-12 14:00 | CT_ITS ---
STUDY: CT CERVICAL SPINE WITHOUT CONTRAST REASON FOR EXAM: Female, 81 years old. Injury/Pain RADIATION DOSAGE (If Supplied By Facility): CTDIvol = ( 21.47 ) mGy, DLP = ( 433.03 ) mGycm TECHNIQUE: High resolution transaxial imaging was performed without contrast material. Sagittal and coronal images were reconstructed. Individualized dose optimization techniques were used for this CT. COMPARISON: None FINDINGS: Normal craniovertebral junction. Normal anterior atlantoaxial articulation. Normal odontoid process. Normal cervical lordosis. Normal vertebral bodies and posterior osseous elements. C2-3: Small central disc protrusion produces mild spinal stenosis. No neural foraminal stenosis. C3-4: Mild broad disc protrusion produces mild spinal stenosis. No neural foraminal stenosis. C4-5: Moderate sized central disc protrusion produces moderate spinal stenosis. No neural foraminal stenosis. C5-6: Mild broad disc osteophyte complex produces mild spinal stenosis. No neural foraminal stenosis. C6-7: Normal endplates. Normal disc height and morphology. Normal central canal and intervertebral neuroforamina. C7-T1: Normal endplates. Normal disc height and morphology. Normal central canal and intervertebral neuroforamina. Normal visualized soft tissue structures. CT/Spine Cervical without Contras IMPRESSION: No acute fracture or subluxation. Electronically Signed: Yann Kaur MD at 14:49 EDT Tel , Service support ,
--- NOTE | 2021-04-12 14:00 | CT_ITS ---
STUDY: CT BRAIN WITHOUT CONTRAST REASON FOR EXAM: Female, 81 years old. Injury/Pain RADIATION DOSAGE (If Supplied By Facility): CTDIvol = ( 44.99 ) mGy, DLP = ( 812.98 ) mGycm TECHNIQUE: Transaxial CT imaging of the brain was performed without administration of intravenous contrast material. Individualized dose optimization techniques were used for this CT. COMPARISON: 08/17/2019 FINDINGS: Normal soft tissue structures. There is hyperostosis frontalis internus. Normal size ventricles and extra-axial spaces for the patient''s age. Normal white matter tracts of the cerebral hemispheres. Normal basal ganglia and thalami. Normal brainstem. Normal cerebellum. There is no intracranial hemorrhage. There are no findings of an acute ischemic infarction. Normal visualized paranasal sinuses. CT/Brain/Head without Contrast IMPRESSION: Normal unenhanced CT scan of the brain. Electronically Signed: Yann Kaur MD at 14:51 EDT Tel , Service support ,
--- NOTE | 2021-04-12 14:11 | RAD_ITS ---
STUDY: X-RAY - PELVIS AND RIGHT HIP REASON FOR EXAM: Female, 81 years old. Injury/Pain TECHNIQUE: 3 views of the pelvis and hip. COMPARISON: 10/15/2016 FINDINGS: There is a non-specific bowel gas pattern. Normal visualized soft tissue structures. Normal bilateral iliac wings, sacroiliac joints and visualized sacrum. Normal bilateral superior and inferior pubic rami. Normal pubic symphysis. Normal bilateral ischial tuberosities. Normal visualized femoral head. Normal acetabulum. Normal hip joint. RAD/HIP, UNI W/ Pelvis 2-3 Views IMPRESSION: Normal x-ray examination of the pelvis and hip. Electronically Signed: Yann Kaur MD at 14:40 EDT Tel , Service support ,
--- NOTE | 2021-04-12 16:22 | HP.PCM.HOS_ITS ---
Documented by User: Alejandro WADDELL 04/12/21 16:53 HPI - General HPI Narrative Patient is an 81-year-old female presents to the ED at [facility] on 04/12/2021 with a chief complaint of back pain secondary to fall. Patient reports that earlier's afternoon she was doing some gardening around her house when she lost her balance and fell backwards landing on her back and simultaneously hitting her head. Patient denies any loss of consciousness surrounding event. Currently patient reports back pain with movement, however reports that pain is controlled on current pain regimen if she stands still. Patient rates her pain at a 9 out of 10 when she moves and about a 2 out of 10 while lying still. Review of systems was negative for headache, vision changes, numbness/tingling, upper or lower extremity weakness, chest pain, shortness of breath, sputum production, hemoptysis, fever, chills, N/V/D. CT of the chest/abdomen/pelvis demonstrates mild compression fracture of T12 with 2 mm re tropulsion into the spinal canal. X-ray of the hip and pelvis were normal. Cervical spine CT demonstrated no acute fracture or subluxation. CT of the brain was normal and did not demonstrate any evidence of ischemia or hemorrhage. Vital signs demonstrate mild bradycardia at 50 bpm. WBC is mildly elevated at 11.7. Hemoglobin at 10.4 (baseline appears between 9 and 11). In the ED patient was given morphine for pain and DTaP vaccine was updated. [facility] Medical History (Updated 04/12/21 @ 16:42 by Alejandro WADDELL) History of hemorrhoids PAD (peripheral artery disease) Home Medications insulin glargine U-300 conc 80 unit SQ DAILY 11/05/15 [History Last Taken 04/11/21] sertraline 100 mg PO DAILY 02/26/19 [History Last Taken 04/12/21] albuterol sulfate 2 puff INHALATION BID 06/11/20 [History Last Taken 04/11/21] aspirin 162 mg PO DAILY@0800 06/11/20 [History Last Taken 04/12/21] atenolol 50 mg PO DAILY 06/11/20 [History Last Taken 04/12/21] atorvastatin 20 mg PO DAILY 06/11/20 [History Last Taken 04/12/21] furosemide 40 mg PO BID 06/11/20 [History Last Taken 04/12/21] lisinopril 40 mg PO DAILY 06/11/20 [History Last Taken 04/12/21] amlodipine 5 mg tablet 5 mg PO DAILY #90 tab 07/04/20 [Rx Last Taken 04/12/21] nitroglycerin 0.4 mg sublingual tablet 0.4 mg SUBLINGUAL Q5M PRN #25 tab 10/04/20 [Rx Last Taken 04/10/21] sucralfate 1 gm PO 4X/DAY #120 tab 11/01/20 [Rx Last Taken 04/12/21] isosorbide mononitrate 60 mg PO DAILY 04/12/21 [History Last Taken 04/12/21] pantoprazole 40 mg PO DAILY 04/12/21 [History Last Taken 04/12/21] Allergy/AdvReac Type Severity Reaction Status Date / Time latex Allergy Rash Verified 04/12/21 13:15 Family History Father CVA (cerebral vascular accident) Mother Heart disease CAD (coronary artery disease) Sister CAD (coronary artery disease) Daughter CAD (coronary artery disease) Myocardial infarction Daughter Diabetes Surgical History (Updated 04/12/21 @ 16:[address] Leilani Lewis MD) H/O: hysterectomy History of carpal tunnel release History of coronary artery stent placement Hx of cholecystectomy Hx of knee surgery Social History Smoking Status: Never smoker alcohol intake: never ROS Constitutional Constitutional: Denies anorexia, change in weight, chills, fatigue, fever(s), malaise, night sweats, weakness or other Eyes Eyes: Denies blurry vision, change in eye color, change in vision, discharge from eye(s), double vision, erythema, eye pain, loss of vision or other ENT HEENT: Denies abnormal hearing, dysphagia, ear pain, epistaxis, headache(s), hearing loss, nasal congestion, nasal discharge, post nasal drip, sinus pressure, sore throat or other Cardiovascular Cardiovascular: Denies chest pain, claudication, dyspnea on exertion, edema, lightheadedness, orthopnea, palpitations, paroxysmal nocturnal dyspnea, rapid heart rate, syncope or other Respiratory/Chest Respiratory/Chest: Denies cough, dyspnea, excessive phlegm production, hemoptysis, productive cough, shortness of breath at rest, shortness of breath with exertion, wheezing or other Gastrointestinal Gastrointestinal: Denies abdominal pain, coffee ground emesis, constipation, diarrhea, dyspepsia, hematemesis, hematochezia, loose stools, melena, nausea, vomiting or other Genitourinary Genitourinary: Denies burning urination, difficulty urinating, dysuria, hematuria, nocturia, urinary frequency, urinary hesitancy, urinary incontinence, urinary urgency or other Musculoskeletal Musculoskeletal: Reports back pain; Denies arthralgias, joint pain, joint stiffness, joint swelling, myalgias, neck pain or other Neurologic Neurologic: Denies abnormal gait, abnormal speech, confusion, disequilibrium, dizziness, focal weakness, headache(s), numbness, paresthesias, seizure-like activity, seizures, syncope, tingling, tremor(s) or other Psychiatric Psychiatric: Denies anxiety, depression, homicidal ideation, suicidal ideation or other Endocrine Endocrinology: Denies change in body appearance, cold intolerance, excessive sweating, heat intolerance, polydipsia, polyuria or other Hematologic/Lymphatic Hematologic/Lymphatic: Denies anemia, easy bleeding, easy bruising, lymphadenopathy or other Allergic/Immunologic Allergic/Immunologic: Denies rhinitis, hives, eczemia, asthma or other Vital Signs Vital Signs Vital Signs: 04/12/21 13:13 Temperature 96.5 F L Temperature Source Temporal Pulse Rate 50 L Respiratory Rate 16 Blood Pressure 146/60 H Blood Pressure Mean 88 Pulse Ox 98 Oxygen Delivery Method Room Air Weight Weight: 162 lb Body Mass Index (BMI) 31.6 Physical Exam Const alert and oriented x3 Constitutional Narrative: Pain only exacerbated with movement. General Appearance: cooperative HEENT normocephalic, head/scalp atraumatic and hearing grossly normal bilaterally Eyes EOMs intact bilaterally and conjunctivae normal Neck no lymphadenopathy, supple and no JVD Resp normal respiratory effort, no retractions and no use of accessory muscles Cardio regular rate, regular rhythm, no murmurs and no JVD GI normal to inspection, nondistended, normoactive bowel sounds, soft to palpation and non-tender Extremity normal to inspection, full ROM and no clubbing, cyanosis or edema Skin no rashes or lesions noted, no wounds, skin turgor normal and no jaundice Neuro CN's II-XII intact bilaterally Psych affect normal Results Lab / Micro Data Result Diagrams: 04/12/21 16:05 04/12/21 16:[address] 04/12/21 14:00 IMPRESSION: Normal unenhanced CT scan of the brain. Electronically Signed: Yann Kaur MD at 14:51 EDT Tel , Service support , Cervical Spine CT 04/12/21 14:00 IMPRESSION: No acute fracture or subluxation. Electronically Signed: Yann Kaur MD at 14:49 EDT Tel , Service support , Chest/Abdomen/Pelvis CT 04/12/21 14:00 IMPRESSION: 1. No CT evidence of acute traumatic aortic injury. 2. No solid organ or bowel injury. 3. Suspect mild compression fracture of T12 with 2 mm retropulsion into the spinal canal. Clinical correlation and MRI would be useful. Electronically Signed: Yann Kaur MD at 15:00 EDT Tel , Service support , Hip/Pelvis X-Ray 04/12/21 14:11 IMPRESSION: Normal x-ray examination of the pelvis and hip. Electronically Signed: Yann Kaur MD at 14:40 EDT Tel , Service support , Assessment & Plan Assessment/Plan (1) Fall: (2) Back pain: (3) T12 compression fracture: (4) Obesity (BMI 30-39.9): (5) Anxiety and depression: (6) CAD (coronary artery disease): QUALIFIERS: Coronary Disease-Associated Artery/Lesion type: [place] artery [place] vs. transplanted heart: [place]nee heart (7) HTN (hypertension): QUALIFIERS: Hypertension type: unspecified Qualified Code(s): I10 - Essential (primary) hypertension (8) History of coronary artery stent placement: (9) Diabetes mellitus: PLAN: Patient is an 81-year-old female who presents to the ED at [facility] on 04/12/2021 with a chief complaint of back pain secondary to mechanical fall. Patient will be placed on MedSurg 3 for medical observation a nd stabilization of pain. 1) T12 compression fracture secondary to mechanical fall. CT of the chest/abdomen/pelvis demonstrates a T12 compression fracture. Brain CT unremarkable. X-ray of the abdomen and pelvis were unremarkable. Cervical spine CT unremarkable. Patient's history is consistent with a mechanical fall while gardening, patient denies loss of consciousness. No focal neuro deficits observed on exam. Patient reports pain is controlled while resting, but is exacerbated with movement at about an 9/10. Plan; placed on MedSurg 3 for medical observation, Tylenol as needed, morphine as needed, Zofran as needed, oxycodone as needed, Senokot as needed, PT/OT eval ordered, if pain is not improved by tomorrow recommend getting MRI of the spine to further assess T12 compression fracture. 2) back pain As above. 3) CAD status post stent PTCA/stent in and . Echocardiogram from 2019 demonstrated an estimated ejection fraction of 55%. Plan; continue amlodipine, isosorbide, aspirin, atenolol, statin. Hold home nitroglycerin. 4) HTN Stable, continue amlodipine, Lasix, atenolol and lisinopril. 5) DM2 Continue home insulin regimen, bedside glucose testing ordered, calorie controlled diet ordered 6) obesity Patient weight 162, BMI 31.6. Weight loss advised. 7) anxiety and depression Continue sertraline. 8) GERD Continue PPI. DVT prophylaxis - Lovenox Patient seen by Alejandro Hutton PA-C, under the supervision of Dr. Lewis. Documented by User: Dr. Leilani Lewis MD 04/12/21 17:17 HPI - General General Date of Admission: 04/12/21 [facility] Medical History (Updated 04/12/21 @ 16:42 by Alejandro WADDELL) History of hemorrhoids PAD (peripheral artery disease) Home Medications insulin glargine U-300 conc 80 unit SQ DAILY 11/05/15 [History Last Taken 04/11/21] sertraline 100 mg PO DAILY 02/26/19 [History Last Taken 04/12/21] albuterol sulfate 2 puff INHALATION BID 06/11/20 [History Last Taken 04/11/21] aspirin 162 mg PO DAILY@0800 06/11/20 [History Last Taken 04/12/21] atenolol 50 mg PO DAILY 06/11/20 [History Last Taken 04/12/21] atorvastatin 20 mg PO DAILY 06/11/20 [History Last Taken 04/12/21] furosemide 40 mg PO BID 06/11/20 [History Last Taken 04/12/21] lisinopril 40 mg PO DAILY 06/11/20 [History Last Taken 04/12/21] amlodipine 5 mg tablet 5 mg PO DAILY #90 tab 07/04/20 [Rx Last Taken 04/12/21] nitroglycerin 0.4 mg sublingual tablet 0.4 mg SUBLINGUAL Q5M PRN #25 tab 10/04/20 [Rx Last Taken 04/10/21] sucralfate 1 gm PO 4X/DAY #120 tab 11/01/20 [Rx Last Taken 04/12/21] isosorbide mononitrate 60 mg PO DAILY 04/12/21 [History Last Taken 04/12/21] pantoprazole 40 mg PO DAILY 04/12/21 [History Last Taken 04/12/21] Allergy/AdvReac Type Severity Reaction Status Date / Time latex Allergy Rash Verified 04/12/21 13:15 Family History Father CVA (cerebral vascular accident) Mother Heart disease CAD (coronary artery disease) Sister CAD (coronary artery disease) Daughter CAD (coronary artery disease) Myocardial infarction Daughter Diabetes Surgical History (Updated 04/12/21 @ 16:[address] Leilani Lewis MD) H/O: hysterectomy History of carpal tunnel release History of coronary artery stent placement Hx of cholecystectomy Hx of knee surgery Social History Smoking Status: Never smoker alcohol intake: never Results Lab / Micro Data Result Diagrams: 04/12/21 16:05 04/12/21 16:05 Charges/Coding Addendum Addendum: Hospitalist note: I am seeing this patient in conjunction with Alejandro Hutton. I independently seen and examined the patient. History and physical, laboratory data and imaging studies reviewed and I concur with above admission and treatment plan. Patient presented to the emergency room because of back pain after she had a mechanical fall. She was planting [place], lost her balance and fell backward on her back and she hit her head. She denied any prodromal symptoms. She stated that at rest, she had no back pain but her pain comes on with any type of activity or movement. She denied focal leg weakness. Denied numbness or tingling. In the emergency department, blood pressure was slightly repeated, other vital signs were stable. Routine blood work was remarkable for minimal leukocytosis, otherwise normal and at baseline. Imaging studies including CT scan brain, CT scan cervical spine and pelvic x-ray showed no acute fractures. CT scan abdomen revealed suspected mild compression fracture of T12 with 2 mm retropulsion into spinal cord. Patient is being admitted for suspected mild compression fracture of T12 and back pain due to mechanical fall. - Physical Exam General: Alert, Oriented x3, Cooperative, No apparent distress. HEENT: Atraumatic, PERRLA, EOMI. Neck: Supple, No JVD, Negative Carotid Bruits, Trachea Midline, Thyroid Normal. Lungs: Clear to auscultation, Normal air movement, No rhonchi, No wheeze, No rales. Cardiovascular: Regular rate, Regular Rhythm, Normal S1, Normal S2, PMI Normal. Abdomen: Bowel Sounds Present, Soft, Non Tender, Non-Distended, No Hepato- splenomegaly. Extremities: No clubbing, No cyanosis, No edema Skin: No rashes, No breakdown Neurological: Cranial nerves are intact, neuro grossly intact. Assessment and plan: #1 acute back pain/suspected mild compression fracture of T12: With 2 mm retropu lsion into the spinal cord. No evidence of nerve compression, no focal deficit. Plan: Admit to [facility] floor for observation, IV morphine as needed for pain, OxyIR as needed for pain, gentle IV fluids for hydration, Zofran as needed, Tylenol as needed, urinalysis, PT OT evaluation and treatment. May consider MRI thoracic spine if pain got worse or she develops new symptoms. #2 other chronic medical problems: Stable, continue current medications as above. This note was generated with [employer] dictation software. It may contain incorrect words, spelling, and punctuation that were not noted in checking the note before signing. Visit Charges OBSV E&M: 67062 Initial observation care L3
[2021-04-12 16:24] LABS: Absolute Lymphocyte Count 1.38 X10^3/uL (0.83-4.51); Absolute Neutrophil Count 9.5 X10^3/uL (2.0-7.7); Basophil# 0.04 X10^3/uL; Basophil% 0.3 % (0-1); Eosinophil# 0.13 X10^3/uL; Eosinophils% 1.1 % (0-5); Hematocrit 33.5 % (37-47); Hemoglobin 10.4 g/dL (12.0-15.0); Lymphocyte # 1.38 X10^3/ul (0.83-4.51); Lymphocyte % 11.8 % (19-41); Mean Corpuscular Hgb 26.2 pg (27.0-32.0); Mean Corpuscular Volume 84.4 fL (81-99); Mean Platelet Vol. 11.7 fl (6.2-12.0); Monocyte% 5.1 % (0-10); NRBC Flagged by Analyzer 0 % (0-5); Neutrophil # 9.45 X10^3/uL (2.7-7.7); Neutrophil % 80.7 % (47-70); Platelet Count 195 K/mm3 (150-450); RBC Distribution Width CV 17.2 % (11.6-14.6); RBC Distribution Width SD 53.6 fl (35.1-43.9); Red Blood Count 3.97 M/mm3 (4.2-5.4); White Blood Count 11.7 K/mm3 (4.4-11.0)
[2021-04-12 16:38] LABS: Anion Gap 8 (5-15); BUN 13 mg/dL (7-18); BUN/Creat Ratio 16.3 RATIO (10-20); Calcium,Total 8.7 mg/dL (8.5-10.1); Chloride 106 mmol/L (98-107); EST Glomerular Filtration Rate 73 mL/min (>60); Est Glom Filt Rate - Afr Amer 89 mL/min (>60); Estimated Creatinine Clearance 39.62 ml/min; Glucose 139 mg/dL (74-106); Potassium 3.7 mmol/L (3.5-5.1); Sodium Level 143 mmol/L (136-145)
[2021-04-12 16:56] VITALS: BP 167/60; PULSE 60; RESP 17; TEMP 36.6; O2SAT 99
[2021-04-12 17:21] VITALS: BMI 31.2
[2021-04-12 17:22] VITALS: PULSE 56
[2021-04-12 17:24] VITALS: BP 164/78; PULSE 68; RESP 18; TEMP 36.5; O2SAT 99
[2021-04-12 18:00] LABS: Bedside Glucose 128 mg/dL (70-110)
[2021-04-12] MEDS: 0.9% Saline Lock 10 ML Syringe IV ×3 (18:06→22:06)
[2021-04-12] MEDS: Morphine 2 MG/ML Syringe IV ×2 (18:07→22:06)
[2021-04-12] MEDS: Sucralfate 1 GM Tablet PO ×2 (18:10→22:06)
[2021-04-12] MEDS: Furosemide 40 MG Tablet PO (18:10)
[2021-04-12] MEDS: Glucerna Shake 120 ML LIQUID PO ×2 (18:18→22:11)
[2021-04-12 19:00] VITALS: PULSE 61
[2021-04-12 20:33] VITALS: BP 145/54; PULSE 61; RESP 18; TEMP 36.8; O2SAT 95
[2021-04-12] MEDS: Ondansetron 4 MG/2 ML Vial IV (20:37)
[2021-04-12] MEDS: oxyCODONE 5 MG Tablet PO (20:37)
[2021-04-12] MEDS: Atorvastatin Calcium 20 MG Tablet PO (22:06)
[2021-04-12 22:10] LABS: Bedside Glucose 142 mg/dL (70-110)
[2021-04-12 22:18] LABS: Mucous, Urine 0 SEEN /hpf (<or=2+)
[2021-04-12 22:20] LABS: Color, Urine Yellow (Yellow); Glucose, Dipstick Normal (Normal); Ketone-Dipstick Negative (Negative); Leukocyte Esterase-Dipstick 500 /ul (Negative); Nitrite-Dipstick Positive (Negative); Occult Blood-Urine 10 /ul (Negative); Protein-Dipstick 15 mg/dl (Negative); Urine Bilirubin Dipstick Negative (Negative); Urine Clarity Sl. Cloudy (Clear); Urine Urobilinogen Normal (Normal); Urine pH 6.5 (5.0 - 8.0)
[2021-04-12 22:35] LABS: Amorphous Sediment 1+ URATE; Bacteria 3+ /hpf (None Seen); Red Blood Cells-Urine 0-5 SEEN /hpf (0-5); Squamous Epithelial Cells - UA 0-5 SEEN /hpf (5-10); Transitional Epithelial - Ur 0-5 SEEN /hpf (0-5); White Blood Cells 25-50 SEEN /hpf (0-5)
[2021-04-13] VITALS (12 sets, daily range): BP systolic 126–168; BP diastolic 32–86; PULSE 58–71; RESP 16–18; TEMP 36.7–37.1; O2SAT 87–100
[2021-04-13] MEDS: oxyCODONE 5 MG Tablet PO ×3 (03:28→21:33)
[2021-04-13] MEDS: Sucralfate 1 GM Tablet PO ×4 (06:31→21:34)
[2021-04-13 06:46] LABS: Bedside Glucose 140 mg/dL (70-110)
[2021-04-13] MEDS: Aspirin E.C. 81 MG Tablet 162 MG PO (09:32)
[2021-04-13] MEDS: Sertraline 100 MG Tablet PO (09:33)
[2021-04-13] MEDS: Iron Polysaccharide Complex 150 MG CAPSULE PO (09:33)
[2021-04-13] MEDS: Acetaminophen 325 MG Tablet 650 MG PO (09:36)
--- NOTE | 2021-04-13 10:24 | PCM.PN.HOSP ---
Subjective Subjective No issues overnight, did have some low oxygen sats while sleeping was placed on 1 to 2 L of oxygen for comfort. Objective Data Objective Data Vital Signs: Vital Signs Temp Pulse Resp BP Pulse Ox 98.7 F 64 18 130/39 H 98 04/13/21 03:21 04/13/21 07:56 04/13/21 03:21 04/13/21 03:21 04/13/21 07:20 Oxygen Flow Rate (L/min) 2 Oxygen Delivery Method Nasal Cannula Weight: 160 lb 0.889 oz Body Mass Index (BMI) 31.2 Intake & Output: Intake and Output for Last 24 Hours 04/12/21 04/13/21 04/14/21 03:59 03:59 03:59 Intake Total 650 / 650 300 / 300 Output Total 700 / 700 Balance 650 / 650 -400 / -400 Lab / Micro Data Result Diagrams: 04/12/21 16:05 04/12/21 16:05 Labs: Laboratory Results - last 24 hr 04/12/21 04/12/21 04/12/21 16:05 16:05 17:55 WBC 11.7 H RBC 3.97 L Hgb 10.4 L Hct 33.5 L MCV 84.4 MCH 26.2 L MCHC 31.0 L RDW Std Deviation 53.6 H RDW Coeff of Aubrie 17.2 H Plt Count 195 MPV 11.7 Immature Gran % (Auto) 1.000 H Neut % (Auto) 80.7 H Lymph % (Auto) 11.8 L Edwards % (Auto) 5.1 Eos % (Auto) 1.1 Baso % (Auto) 0.3 Absolute Neuts (auto) 9.5 H Absolute Lymphs (auto) 1.38 Nucleated RBC % 0 Sodium 143 Potassium 3.7 Chloride 106 Carbon Dioxide 29.0 Anion Gap 8 BUN 13 Creatinine 0.80 Estim Creat Clear Calc 39.62 Est GFR (MDRD) Af Amer 89 Est GFR (MDRD) Non-Af 73 BUN/Creatinine Ratio 16.3 Glucose 139 H Calcium 8.7 Urine Color Urine Clarity Urine pH Ur Specific [place] Urine Protein Urine Glucose (UA) Urine Ketones Urine Occult Blood Urine Nitrite Urine Bilirubin Urine Urobilinogen Ur Leukocyte Esterase Urine RBC Urine WBC Ur Squamous Epith Cells Ur Transition Epith Cell Amorphous Sediment Urine Bacteria Urine Mucus POC Glucose 128 H 04/12/21 04/12/2121 18:45 22:05 06:31 WBC RBC Hgb Hct MCV MCH MCHC RDW Std Deviation RDW Coeff of Aubrie Plt Count MPV Immature Gran % (Auto) Neut % (Auto) Lymph % (Auto) Edwards % (Auto) Eos % (Auto) Baso % (Auto) Absolute Neuts (auto) Absolute Lymphs (auto) Nucleated RBC % Sodium Potassium Chloride Carbon Dioxide Anion Gap BUN Creatinine Estim Creat Clear Calc Est GFR (MDRD) Af Amer Est GFR (MDRD) Non-Af BUN/Creatinine Ratio Glucose Calcium Urine Color Yellow Urine Clarity Sl. Cloudy Urine pH 6.5 Ur Specific [place] 1.010 Urine Protein 15 H Urine Glucose (UA) Normal Urine Ketones Negative Urine Occult Blood 10 H Urine Nitrite Positive H Urine Bilirubin Negative Urine Urobilinogen Normal Ur Leukocyte Esterase 500 H Urine RBC 0-5 SEEN Urine WBC 25-50 SEEN Ur Squamous Epith Cells 0-5 SEEN Ur Transition Epith Cell 0-5 SEEN Amorphous Sediment 1+ URATE Urine Bacteria 3+ Urine Mucus 0 SEEN POC Glucose 142 H 140 H Radiography Diagnostic Testing: Radiology Impression Brain CT 04/12/21 14:00 IMPRESSION: Normal unenhanced CT scan of the brain. Electronically Signed: Yann Kaur MD at 14:51 EDT Tel , Service support , Cervical Spine CT 04/12/21 14:00 IMPRESSION: No acute fracture or subluxation. Electronically Signed: Yann Kaur MD at 14:49 EDT Tel , Service support , Chest/Abdomen/Pelvis CT 04/12/21 14:00 IMPRESSION: 1. No CT evidence of acute traumatic aortic injury. 2. No solid organ or bowel injury. 3. Suspect mild compression fracture of T12 with 2 mm retropulsion into the spinal canal. Clinical correlation and MRI would be useful. Electronically Signed: Yann Kaur MD at 15:00 EDT Tel , Service support , Hip/Pelvis X-Ray 04/12/21 14:11 IMPRESSION: Normal x-ray examination of the pelvis and hip. Electronically Signed: Yann Kaur MD at 14:40 EDT Tel , Service support , Physical Exam Const alert, oriented x3 and no apparent distress General Appearance: cooperative HEENT normocephalic and moist oral mucous membranes Eyes PERRL, EOMs intact bilaterally and conjunctivae normal Neck supple and no JVD Resp normal respiratory effort, no retractions, no use of accessory muscles and clear to auscultation bilaterally Auscultation: Negative for crackles, rales, rhonchi or wheezes Cardio regular rate, regular rhythm, S1 normal heart sound, S2 normal heart sound and no murmurs GI soft to palpation, non-tender and non-distended; Negative for hepatosplenomegaly Back/Spine thoracic and lumbar spine normal to inspection and straight leg raise negative bilaterally Thoracic Spine / Upper Back: thoracic spinal tenderness T12 (Very minimal and did not react when distracted) Extremity no clubbing, cyanosis or edema Skin no rashes or lesions noted Neuro no focal motor deficits and no sensory deficits noted Psych affect normal Appearance: appropriate Assessment & Plan Assessment/Plan (1) T12 compression fracture: QUALIFIERS: Encounter type: initial encounter Qualified Code(s): S22.080A - Wedge compression fracture of T11-T12 vertebra, initial encounter for closed fracture (2) Diabetes mellitus: QUALIFIERS: Diabetes mellitus type: type 2 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 T12 compression fracture status post fall -Has some tenderness though does not complain of any pain when distracted with palpation. -We will have her evaluated by PT/OT for ability to ambulate and and possible need for retirement facility -If unable to walk we will proceed with an MRI and potentially discussed the case with spine surgery for potential kyphoplasty 2. CAD status post stent/HTN/HLD/obesity -Blood pressures are stable, she had stents in nose for no 7 -Can continue with her home blood pressure medications -Continue with statin -BMI 31.6, discussed lifestyle modifications 3. DM2 -Hold home medications -Continue with insulin as well as sliding scale insulin -Accu-Cheks AC at bedtime 4. Anxiety/depression -Stable -Continue with Zoloft 5. GERD -Stable -Continue with GERD DVT: Lovenox Charges/Coding Visit Charges OBSV E&M: 70746 Subsequent observation care L2
[2021-04-13] MEDS: Furosemide 40 MG Tablet PO ×2 (10:32→18:26)
[2021-04-13] MEDS: Isosorbide Mononitrate 60 MG Tablet PO (10:33)
[2021-04-13] MEDS: Potassium Chloride Oral Tablet 10 MEQ 20 MEQ PO (10:35)
[2021-04-13] MEDS: Enoxaparin 40 MG/0.4 ML Syringe SC (10:35)
[2021-04-13] MEDS: Atenolol 50 MG Tablet PO (10:36)
[2021-04-13] MEDS: Lisinopril 40 MG Tablet PO (10:36)
[2021-04-13] MEDS: amLODIPine 5 MG Tablet PO (10:36)
--- NOTE | 2021-04-13 11:50 | CASEMGMT ---
Addendum entered by Lyn Dela Cruz 04/13/21 12:55: Spoke with PT Glendy who states pt would not be safe to return home. Notified Leonarda THEODORE that pt would like to go to TCU per vm message. Original Note: JUDSON ANDERSON Assessment: Face to Face with pt for initial transition planning/care coordination assessment. JUDSON ANDERSON introduced self and role at [facility], pt voices understanding and consents to assessment. Pt is A/O x4 and answers all questions appropriately at this time. Dtr Ailyn is at bedside. Care providers, pharmacy, and demographics verified/updated. Admitting Dx: fall, back pain, mild T12 compression fracture PCP: Abelino Specialists: Nhi for iron infusions, [place], cardio Preferred Pharmacy: [facility] Insurance: [facility] Prescription Benefit: yes LW/HPOA: Pt has LW/DPOA that is on file at [facility]. DPOA is dtr Ailyn Vazquez. LNOK: Ailyn Vazquez, dtr; Laury Garcia, dtr Living Arrangements: [place]. Pt states normally she is I in ADL's and denies concerns at home. Transportation: Pt normally drives self and denies concerns with transportation. DME/HHC/SNF: Pt has a cane, walker, handicapped accessible bathroom and tub bench. Pt has had [facility] for HHC and denies SNF stays. Discussed with pt how she will care for self at home. She states she has good support with all of her neighbors (who are all seniors). 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 Pt would be open to HHC if recommended. Therapy has not eval'd pt yet. Pt states no further concerns/needs. CM to follow. Advised pt to ask CM if any further question/concerns/needs arise, voices understanding. Pt Goal: Home with neighbor and family support Plan: TBD pending therapy evals.
[2021-04-13 12:41] LABS: Bedside Glucose 178 mg/dL (70-110)
--- NOTE | 2021-04-13 13:05 | CASEMGMT ---
JUDSON CM in to discuss [place] form with patient. RN CM explained [place] form, patient voiced understanding. Pt signed form and filed in chart. Pt provided with a copy of signed [place] form. Patient had no further questions or concerns at this time.
[2021-04-13] MEDS: Glucerna Shake 120 ML LIQUID PO (15:17)
--- NOTE | 2021-04-13 16:08 | CASEMGMT ---
Patient was provided a list of [facility] providers including quality and resource use data and consistent with the patient?s preferred geographic region, medical needs, and insurance network although pt stated she wanted TCU per request of Leonarda JAIMES.
[2021-04-13 16:36] LABS: Bedside Glucose 213 mg/dL (70-110)
[2021-04-13] MEDS: Insulin Lispro 100 UNIT/ML INSULN.PEN SC ×2 (18:25→21:35)
[2021-04-13] MEDS: Atorvastatin Calcium 20 MG Tablet PO (21:34)
[2021-04-13 21:45] LABS: Bedside Glucose 157 mg/dL (70-110)
[2021-04-14] VITALS (14 sets, daily range): BP systolic 126–184; BP diastolic 45–76; PULSE 53–67; RESP 16–18; TEMP 36.3–37.2; O2SAT 94–100
[2021-04-14] MEDS: Morphine 2 MG/ML Syringe IV ×2 (00:29→09:44)
[2021-04-14] MEDS: 0.9% Saline Lock 10 ML Syringe IV ×2 (00:29→09:44)
[2021-04-14] MEDS: Sucralfate 1 GM Tablet PO ×4 (06:48→21:27)
[2021-04-14 06:55] LABS: Bedside Glucose 147 mg/dL (70-110)
[2021-04-14] MEDS: amLODIPine 5 MG Tablet PO (08:06)
[2021-04-14] MEDS: Aspirin E.C. 81 MG Tablet 162 MG PO (08:06)
[2021-04-14] MEDS: Atenolol 50 MG Tablet PO (08:07)
--- NOTE | 2021-04-14 09:23 | PN.HOSP_ITS ---
Subjective Subjective Doing well, no issues overnight. Continues to have midline back pain though it is difficult to assess how severe it is as she is extremely sensitive and reactionary to pain. No incontinence or numbness. And no pain going down her legs. Objective Data Objective Data Vital Signs: Vital Signs Temp Pulse Resp BP Pulse Ox 98.0 F 61 18 169/64 H 95 04/14/21 08:04 04/14/21 08:04 04/14/21 08:04 04/14/21 08:04 04/14/21 08:27 Oxygen Flow Rate (L/min) 1 Oxygen Delivery Method Nasal Cannula Weight: 160 lb 0.889 oz Body Mass Index (BMI) 31.2 Intake & Output: Intake and Output for Last 24 Hours 04/13/21 04/14/21 04/15/21 03:59 03:59 03:59 Intake Total 650 / 650 1250 / 1250 Output Total 2725 / 2725 225 / 225 Balance 650 / 650 -1475 / -1475 -225 / -225 Lab / Micro Data Result Diagrams: 04/12/21 16:05 04/12/21 16:05 Labs: Laboratory Results - last 24 hr 04/13/21 04/13/21 04/13/21 12:32 16:26 21:32 POC Glucose 178 H 213 H 157 H 04/14/21 06:47 POC Glucose 147 H Physical Exam Const alert, oriented x3 and no apparent distress General Appearance: cooperative HEENT normocephalic and moist oral mucous membranes Eyes PERRL, EOMs intact bilaterally and conjunctivae normal Neck supple and no JVD Resp normal respiratory effort, no retractions, no use of accessory muscles and clear to auscultation bilaterally Auscultation: Negative for crackles, rales, rhonchi or wheezes Cardio regular rate, regular rhythm, S1 normal heart sound, S2 normal heart sound and no murmurs GI soft to palpation, non-tender and non-distended; Negative for hepatosplenomegaly Back/Spine thoracic and lumbar spine normal to inspection and straight leg raise negative bilaterally Thoracic Spine / Upper Back: thoracic spinal tenderness T12 (Very minimal and did not react when distracted) Extremity no clubbing, cyanosis or edema Skin no rashes or lesions noted Neuro no focal motor deficits and no sensory deficits noted Psych affect normal Appearance: appropriate Assessment & Plan Assessment/Plan (1) T12 compression fracture: QUALIFIERS: Encounter type: initial encounter Qualified Code(s): S22.080A - Wedge compression fracture of T11-T12 vertebra, initial encounter for closed fracture (2) Diabetes mellitus: QUALIFIERS: Diabetes mellitus type: type 2 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 T12 compression fracture status post fall -Has some tenderness though does not complain of any pain when distracted with palpation. -We will have her evaluated by PT/OT for ability to ambulate and and possible need for group home facility -Only able to walk 15 feet yesterday with physical therapy secondary to pain -MRI pending for tomorrow -We will likely need SNF placement 2. CAD status post stent/HTN/HLD/obesity -Blood pressures are stable, she had stents in nose for no 7 -Can continue with her home blood pressure medications -Continue with statin -BMI 31.6, discussed lifestyle modifications 3. DM2 -Hold home medications -Continue with insulin as well as sliding scale insulin -Accu-Cheks AC at bedtime 4. Anxiety/depression -Stable -Continue with Zoloft 5. GERD -Stable -Continue with GERD DVT: Lovenox Charges/Coding Visit Charges OBSV E&M: 34945 Subsequent observation care L2
--- NOTE | 2021-04-14 10:00 | MRI_ITS ---
STUDY: MRI LUMBAR SPINE WITHOUT CONTRAST REASON FOR EXAM: Female, 81 years old. T12 compression fracture with 2 mm retropulsion, fall, back pain TECHNIQUE: Standardized fat and water weighted pulse sequences were obtained in the sagittal and axial planes. COMPARISON: MRI lumbar spine without contrast 06/28/2013. CT abdomen and pelvis without contrast 04/12/2021. FINDINGS: T10-T11: (Sagittal only). Normal endplates. Normal disc height, hydration and morphology. Normal central canal and bilateral intervertebral neural foramina. T11-T12: Normal T11 inferior endplate. Acute anterior wedge compression fracture of the upper T12 vertebral body. Normal disc height, hydration and morphology. Normal central canal and bilateral lateral recesses. Normal facet joints. Normal bilateral intervertebral neural foramina. T12-L1: Normal endplates. Normal disc height, hydration and morphology. Normal bilateral facet joints. Normal central canal and bilateral lateral recesses. Normal bilateral intervertebral neural foramina. Normal lumbar lordosis. There is no substantial scoliosis. Normal conus medullaris that terminates at the L1-L2 disc level. L1-2: Normal endplates. Normal disc height, hydration and morphology. Normal bilateral facet joints. Normal central canal and bilateral lateral recesses. Normal bilateral intervertebral neural foramina. Small bilateral renal cysts are visible at this level. L2-3: Normal endplates. Normal disc height. Small posterior bulging disc is unchanged. Normal central canal and bilateral lateral recesses. Normal facet joints. Normal bilateral intervertebral neural foramina. L3-4: Normal endplates. Mild disc space height narrowing. Prominent posterior annular bulging disc. Pronounced central canal stenosis with an AP canal diameter of 4.7 mm. Normal bilateral lateral recesses. Mild degenerative facet arthropathy. Normal bilateral intervertebral neural foramina. Right-sided L4 benign vertebral body hemangioma. L4-5: Normal endplates. Mild disc space height narrowing. Prominent posterior annular bulging disc. Pronounced central canal stenosis with an AP canal diameter of 5.3 mm. Prominent posterior ligamenta flava hypertrophy. Normal bilateral lateral recesses. Mild bilateral degenerative facet arthropathy. Normal bilateral intervertebral neural foramina. L5-S1: MODIC type I degenerative vertebral marrow edema underneath the vertebral endplates. Grade 1 degenerative anterolisthesis of L5 on S1. Mild central canal stenosis with an AP canal diameter of 10 mm. Normal bilateral lateral recesses. Pronounced bilateral degenerative facet hypertrophy. Moderately pronounced stenosis of the bilateral intervertebral neural foramina with impingement/entrapment of both L5 nerves. Normal visualized sacral ala. Normal visualized paraspinous soft tissue structures. MRI/Spine Lumbar (Routine) IMPRESSION: 1. Mild acute anterior wedge compression fracture across the upper T12 vertebral body. This is feasible for kyphoplasty if patient has debilitating back pain. This is unchanged when compared to CT abdomen and pelvis dated 04/12/2021. 2. Worsening of central canal stenosis at L3-L4 disc space level, now pronounced with an AP canal diameter of 4.7 mm and more prominent posterior annular bulging disc when compared to MRI lumbar spine of 06/28/2013. 3. Worsening of central canal stenosis at L4-L5 disc space level with an AP canal diameter of 5.3 mm and more prominent posterior annular bulging disc height compared to MRI lumbar spine of 06/28/2013. 4. Moderately pronounced stenosis of the bilateral L5-S1 intervertebral neural foramina with impingement/entrapment of both L5 nerves, grade 1 degenerative anterolisthesis of L5 on S1 with MODIC type I degenerative vertebral marrow edema underneath the vertebral endplates and mild central canal stenosis. This is unchanged when compared to CT abdomen and pelvis of 04/12/2021. 5. No MRI evidence of lumbar extruded disc fragment. Electronically Signed: Puneet Wheeler MD at 13:46 EDT , Service support ,
[2021-04-14] MEDS: Furosemide 40 MG Tablet PO ×2 (11:11→17:12)
[2021-04-14] MEDS: Potassium Chloride Oral Tablet 10 MEQ 20 MEQ PO (11:11)
[2021-04-14] MEDS: Lisinopril 40 MG Tablet PO (11:11)
[2021-04-14] MEDS: Iron Polysaccharide Complex 150 MG CAPSULE PO (11:11)
[2021-04-14] MEDS: Sertraline 100 MG Tablet PO (11:12)
[2021-04-14] MEDS: Enoxaparin 40 MG/0.4 ML Syringe SC (11:12)
[2021-04-14] MEDS: Isosorbide Mononitrate 60 MG Tablet PO (11:14)
[2021-04-14] MEDS: Glucerna Shake 120 ML LIQUID PO ×2 (11:15→21:29)
[2021-04-14 11:46] LABS: Bedside Glucose 203 mg/dL (70-110)
[2021-04-14] MEDS: Acetaminophen 325 MG Tablet 650 MG PO (11:48)
[2021-04-14] MEDS: oxyCODONE 5 MG Tablet PO (11:48)
[2021-04-14] MEDS: Insulin Lispro 100 UNIT/ML INSULN.PEN SC ×3 (13:19→21:27)
[2021-04-14 16:56] LABS: Bedside Glucose 173 mg/dL (70-110)
[2021-04-14] MEDS: Atorvastatin Calcium 20 MG Tablet PO (21:27)
[2021-04-14 21:41] LABS: Bedside Glucose 158 mg/dL (70-110)
[2021-04-15] VITALS (10 sets, daily range): BP systolic 128–172; BP diastolic 37–69; PULSE 53–65; RESP 14–18; TEMP 36.5–36.9; O2SAT 94–99
[2021-04-15] MEDS: oxyCODONE 5 MG Tablet PO ×3 (01:40→21:15)
[2021-04-15] MEDS: Acetaminophen 325 MG Tablet 650 MG PO ×2 (01:40→15:44)
[2021-04-15] MEDS: Insulin Lispro 100 UNIT/ML INSULN.PEN SC ×4 (06:35→21:10)
[2021-04-15] MEDS: Sucralfate 1 GM Tablet PO ×4 (06:35→21:10)
[2021-04-15 06:40] LABS: Bedside Glucose 165 mg/dL (70-110)
[2021-04-15 06:51] LABS: Absolute Lymphocyte Count 1.47 X10^3/uL (0.83-4.51); Absolute Neutrophil Count 8.3 X10^3/uL (2.0-7.7); Basophil# 0.03 X10^3/uL; Basophil% 0.3 % (0-1); Eosinophil# 0.34 X10^3/uL; Eosinophils% 3.1 % (0-5); Hematocrit 36.6 % (37-47); Hemoglobin 11.5 g/dL (12.0-15.0); Lymphocyte # 1.47 X10^3/ul (0.83-4.51); Lymphocyte % 13.5 % (19-41); Mean Corp Hgb Conc 31.4 g/dL (32-36); Mean Corpuscular Hgb 26.3 pg (27.0-32.0); Mean Corpuscular Volume 83.8 fL (81-99); Mean Platelet Vol. 11.6 fl (6.2-12.0); Monocyte# 0.72 X10^3/uL; Monocyte% 6.6 % (0-10); NRBC Flagged by Analyzer 0 % (0-5); Neutrophil # 8.27 X10^3/uL (2.7-7.7); Platelet Count 193 K/mm3 (150-450); RBC Distribution Width CV 17.1 % (11.6-14.6); RBC Distribution Width SD 52.5 fl (35.1-43.9); Red Blood Count 4.37 M/mm3 (4.2-5.4); White Blood Count 10.9 K/mm3 (4.4-11.0)
[2021-04-15 06:59] LABS: Anion Gap 8 (5-15); BUN 16 mg/dL (7-18); BUN/Creat Ratio 21.1 RATIO (10-20); Calcium,Total 9.3 mg/dL (8.5-10.1); Chloride 96 mmol/L (98-107); Creatinine, Serum 0.76 mg/dL (0.55-1.02); EST Glomerular Filtration Rate 78 mL/min (>60); Est Glom Filt Rate - Afr Amer 94 mL/min (>60); Estimated Creatinine Clearance 31.69 ml/min; Glucose 173 mg/dL (74-106); Potassium 3.8 mmol/L (3.5-5.1); Sodium Level 135 mmol/L (136-145)
[2021-04-15] MEDS: Sertraline 100 MG Tablet PO (09:03)
[2021-04-15] MEDS: Aspirin E.C. 81 MG Tablet 162 MG PO (09:03)
[2021-04-15] MEDS: Iron Polysaccharide Complex 150 MG CAPSULE PO (09:03)
[2021-04-15] MEDS: Lisinopril 40 MG Tablet PO (09:03)
[2021-04-15] MEDS: Potassium Chloride Oral Tablet 10 MEQ 20 MEQ PO (09:04)
[2021-04-15] MEDS: Enoxaparin 40 MG/0.4 ML Syringe SC (09:05)
[2021-04-15] MEDS: Furosemide 40 MG Tablet PO ×2 (09:05→18:10)
[2021-04-15] MEDS: amLODIPine 5 MG Tablet PO (09:07)
--- NOTE | 2021-04-15 10:01 | CASEMGMT ---
Social Work Note SW placed a call to Amy with [facility], TCU Is able to accept pt. SW in to speak with pt. SW introduced self and role at [facility]. SW updated pt that TCU is able to accept pt, will await recommendations from Dr. Hernandez. Plan: TCU pending pre-cert Sharyn Hernández METALSMITH HELPER, APPLICATION SPEC
--- NOTE | 2021-04-15 11:48 | PN.HOSP_ITS ---
Subjective Subjective Patient seen and examined. She still complains of back pain. Review of systems otherwise negative. Objective Data Objective Data Vital Signs: Vital Signs Temp Pulse Resp BP Pulse Ox 97.9 F 65 16 153/46 H 94 04/15/21 10:00 04/15/21 10:00 04/15/21 10:00 04/15/21 10:00 04/15/21 10:00 Oxygen Flow Rate (L/min) 2 Oxygen Delivery Method Nasal Cannula Weight: 160 lb 0.889 oz Body Mass Index (BMI) 31.2 Intake & Output: Intake and Output for Last 24 Hours 04/13/21 04/14/21 04/15/21 23:59 23:59 23:59 Intake Total 1250 / 1250 1000 / 1000 Output Total 1900 / 2725 1550 / 2250 1300 / 1300 Balance -650 / -1475 -550 / -1250 -1300 / -1300 Lab / Micro Data Result Diagrams: 04/15/21 06:05 04/15/21 06:05 Labs: Laboratory Results - last 24 hr 04/14/21 04/14/21 04/15/21 16:48 21:25 06:05 WBC 10.9 RBC 4.37 Hgb 11.5 L Hct 36.6 L MCV 83.8 MCH 26.3 L MCHC 31.4 L RDW Std Deviation 52.5 H RDW Coeff of Aubrie 17.1 H Plt Count 193 MPV 11.6 Immature Gran % (Auto) 0.500 Neut % (Auto) 76.0 H Lymph % (Auto) 13.5 L [place] % (Auto) 6.6 Eos % (Auto) 3.1 Baso % (Auto) 0.3 Absolute Neuts (auto) 8.3 H Absolute Lymphs (auto) 1.47 Nucleated RBC % 0 Sodium Potassium Chloride Carbon Dioxide Anion Gap BUN Creatinine Estim Creat Clear Calc Est GFR (MDRD) Af Amer Est GFR (MDRD) Non-Af BUN/Creatinine Ratio Glucose Calcium POC Glucose 173 H 158 H 04/15/21 04/15/21 06:05 06:32 WBC RBC Hgb Hct MCV MCH MCHC RDW Std Deviation RDW Coeff of Aubrie Plt Count MPV Immature Gran % (Auto) Neut % (Auto) Lymph % (Auto) [place] % (Auto) Eos % (Auto) Baso % (Auto) Absolute Neuts (auto) Absolute Lymphs (auto) Nucleated RBC % Sodium 135 L Potassium 3.8 Chloride 96 L Carbon Dioxide 31.0 Anion Gap 8 BUN 16 Creatinine 0.76 Estim Creat Clear Calc 31.69 Est GFR (MDRD) Af Amer 94 Est GFR (MDRD) Non-Af 78 BUN/Creatinine Ratio 21.1 H Glucose 173 H Calcium 9.3 POC Glucose 165 H Radiography Diagnostic Testing: Radiology Impression Lumbar Spine MRI 04/14/21 10:00 IMPRESSION: 1. Mild acute anterior wedge compression fracture across the upper T12 vertebral body. This is feasible for kyphoplasty if patient has debilitating back pain. This is unchanged when compared to CT abdomen and pelvis dated 04/12/2021. 2. Worsening of central canal stenosis at L3-L4 disc space level, now pronounced with an AP canal diameter of 4.7 mm and more prominent posterior annular bulging disc when compared to MRI lumbar spine of 06/28/2013. 3. Worsening of central canal stenosis at L4-L5 disc space level with an AP canal diameter of 5.3 mm and more prominent posterior annular bulging disc height compared to MRI lumbar spine of 06/28/2013. 4. Moderately pronounced stenosis of the bilateral L5-S1 intervertebral neural foramina with impingement/entrapment of both L5 nerves, grade 1 degenerative anterolisthesis of L5 on S1 with MODIC type I degenerative vertebral marrow edema underneath the vertebral endplates and mild central canal stenosis. This is unchanged when compared to CT abdomen and pelvis of 04/12/2021. 5. No MRI evidence of lumbar extruded disc fragment. Electronically Signed: Puneet Wheeler MD at 13:46 EDT , Service support , Physical Exam Const alert, oriented x3 and no apparent distress Exam Limitations: no limitations HEENT head/scalp atraumatic and moist oral mucous membranes Head and Scalp: normocephalic Eyes PERRL, EOMs intact bilaterally and conjunctivae normal Neck no lymphadenopathy and supple Resp normal respiratory effort, no retractions, no use of accessory muscles and clear to auscultation bilaterally Cardio regular rate, regular rhythm, S1 normal heart sound, S2 normal heart sound and no murmurs GI normal to inspection, nondistended, normoactive bowel sounds, soft to palpation, non-tender, non-distended and hepatosplenomegaly Extremity normal to inspection, full ROM and no clubbing, cyanosis or edema Peripheral Pulses: Yes pulses 2+ throughout Skin no rashes or lesions noted Neuro oriented x3 Sensorium / Orientation: awake and alert Psych affect normal Assessment & Plan Assessment/Plan (1) T12 compression fracture: QUALIFIERS: Encounter type: initial encounter Qualified Code(s): S22.080A - Wedge compression fracture of T11-T12 vertebra, initial encounter for closed fracture PLAN: #T12 compression fracture due to mechanical fall * MRI of the spine showed mild acute anterior wedge compression fracture of T12 * PT/OT on board * fall precautions * consult pain management for kyphoplasty * on IV morphine prn and PO oxycodone. * #CAD s/p stents * on statin and aspirin as well as atenolol * #Hypertension: on atenolol and furosemide as well as lisinopril #Type 2 diabetes mellitus * on lantus 80 units qhs. ISS. Accuchecks ACHS. * #Anxiety and depression; on zoloft #GERD: on PPI DVT prophylaxis: lovenox Charges/Coding Visit Charges Inpatient E&M: 15387 Subs Hosp L2
[2021-04-15] MEDS: Atenolol 50 MG Tablet PO (12:00)
[2021-04-15] MEDS: Isosorbide Mononitrate 60 MG Tablet PO (12:00)
[2021-04-15 12:16] LABS: Bedside Glucose 274 mg/dL (70-110)
--- NOTE | 2021-04-15 12:47 | CASEMGMT ---
Social Work Note Per hand quilter questions, pt has completed HCPOA and LW and provided documents to [facility]. SW reviewed chart, both HCPOA and LW are on file. SW printed off documents and placed on pt's chart. Sharyn Hernández SURGERY NURSE, SPANISH INTERPRETER
[2021-04-15] MEDS: Glucerna Shake 120 ML LIQUID PO ×2 (15:42→21:16)
[2021-04-15] MEDS: Senna/Docusate Sodium 1 Tablet 2 TABLET PO (15:45)
[2021-04-15] MEDS: BENZOCAINE/MENTHOL 1 LOZENGE MUCOUS MEM (15:54)
[2021-04-15 16:05] LABS: Bedside Glucose 185 mg/dL (70-110)
[2021-04-15] MEDS: Atorvastatin Calcium 20 MG Tablet PO (21:10)
[2021-04-16] VITALS (8 sets, daily range): BP systolic 128–155; BP diastolic 33–81; PULSE 51–60; RESP 16–18; TEMP 36.6; O2SAT 96–100
[2021-04-16 00:46] LABS: Bedside Glucose 211 mg/dL (70-110)
[2021-04-16] MEDS: oxyCODONE 5 MG Tablet PO ×4 (03:35→22:08)
[2021-04-16] MEDS: Insulin Lispro 100 UNIT/ML INSULN.PEN SC ×3 (06:28→16:54)
[2021-04-16] MEDS: Sucralfate 1 GM Tablet PO ×4 (06:29→22:08)
[2021-04-16 06:40] LABS: Bedside Glucose 195 mg/dL (70-110)
[2021-04-16 06:43] LABS: Absolute Lymphocyte Count 1.51 X10^3/uL (0.83-4.51); Absolute Neutrophil Count 7.2 X10^3/uL (2.0-7.7); Basophil# 0.05 X10^3/uL; Basophil% 0.5 % (0-1); Eosinophil# 0.27 X10^3/uL; Eosinophils% 2.7 % (0-5); Hemoglobin 11.6 g/dL (12.0-15.0); Lymphocyte # 1.51 X10^3/ul (0.83-4.51); Lymphocyte % 15.3 % (19-41); Mean Corp Hgb Conc 31.4 g/dL (32-36); Mean Corpuscular Hgb 26.2 pg (27.0-32.0); Mean Corpuscular Volume 83.7 fL (81-99); Mean Platelet Vol. 11.6 fl (6.2-12.0); Monocyte# 0.76 X10^3/uL; Monocyte% 7.7 % (0-10); NRBC Flagged by Analyzer 0 % (0-5); Neutrophil # 7.21 X10^3/uL (2.7-7.7); Neutrophil % 73.4 % (47-70); Platelet Count 215 K/mm3 (150-450); RBC Distribution Width CV 17.1 % (11.6-14.6); RBC Distribution Width SD 52.6 fl (35.1-43.9); Red Blood Count 4.42 M/mm3 (4.2-5.4); White Blood Count 9.8 K/mm3 (4.4-11.0)
[2021-04-16 07:15] LABS: Anion Gap 8 (5-15); BUN 25 mg/dL (7-18); Calcium,Total 9.4 mg/dL (8.5-10.1); Chloride 95 mmol/L (98-107); Creatinine, Serum 0.71 mg/dL (0.55-1.02); EST Glomerular Filtration Rate 83 mL/min (>60); Est Glom Filt Rate - Afr Amer 101 mL/min (>60); Estimated Creatinine Clearance 31.69 ml/min; Glucose 196 mg/dL (74-106); Potassium 3.9 mmol/L (3.5-5.1); Sodium Level 136 mmol/L (136-145)
--- NOTE | 2021-04-16 07:46 | PN.HOSP_ITS ---
Subjective Subjective Patient seen and examined. She still complains of back pain but has no other new complaints. Review of systems is otherwise negative. She is awaiting pain management evaluation. Objective Data Objective Data Vital Signs: Vital Signs Temp Pulse Resp BP Pulse Ox 97.9 F 51 L 18 143/33 H 100 04/16/21 03:28 04/16/21 03:28 04/16/21 03:28 04/16/21 03:28 04/16/21 03:28 Oxygen Flow Rate (L/min) 1 Oxygen Delivery Method Nasal Cannula Weight: 160 lb 0.889 oz Body Mass Index (BMI) 31.2 Intake & Output: Intake and Output for Last 24 Hours 04/14/21 04/15/21 04/16/21 23:59 23:59 23:59 Intake Total 1000 / 1000 640 / 640 240 / 240 Output Total 1550 / 2250 2400 / 2400 Balance -550 / -1250 -1760 / -1760 240 / 240 Lab / Micro Data Result Diagrams: 04/16/21 06:00 04/16/21 06:00 Labs: Laboratory Results - last 24 hr 04/15/21 04/15/21 04/15/21 12:03 15:54 21:09 WBC RBC Hgb Hct MCV MCH MCHC RDW Std Deviation RDW Coeff of Aubrie Plt Count MPV Immature Gran % (Auto) Neut % (Auto) Lymph % (Auto) [place] % (Auto) Eos % (Auto) Baso % (Auto) Absolute Neuts (auto) Absolute Lymphs (auto) Nucleated RBC % Sodium Potassium Chloride Carbon Dioxide Anion Gap BUN Creatinine Estim Creat Clear Calc Est GFR (MDRD) Af Amer Est GFR (MDRD) Non-Af BUN/Creatinine Ratio Glucose Calcium POC Glucose 274 H 185 H 211 H 04/16/21 04/16/21 04/16/21 06:00 06:00 06:27 WBC 9.8 RBC 4.42 Hgb 11.6 L Hct 37.0 MCV 83.7 MCH 26.2 L MCHC 31.4 L RDW Std Deviation 52.6 H RDW Coeff of Aubrie 17.1 H Plt Count 215 MPV 11.6 Immature Gran % (Auto) 0.400 Neut % (Auto) 73.4 H Lymph % (Auto) 15.3 L [place] % (Auto) 7.7 Eos % (Auto) 2.7 Baso % (Auto) 0.5 Absolute Neuts (auto) 7.2 Absolute Lymphs (auto) 1.51 Nucleated RBC % 0 Sodium 136 Potassium 3.9 Chloride 95 L Carbon Dioxide 33.0 H Anion Gap 8 BUN 25 H Creatinine 0.71 Estim Creat Clear Calc 31.69 Est GFR (MDRD) Af Amer 101 Est GFR (MDRD) Non-Af 83 BUN/Creatinine Ratio 35.0 H Glucose 196 H Calcium 9.4 POC Glucose 195 H Physical Exam Const alert, oriented x3 and no apparent distress General Appearance: cooperative Exam Limitations: no limitations HEENT normocephalic, head/scalp atraumatic and moist oral mucous membranes Head and Scalp: normocephalic Eyes PERRL, EOMs intact bilaterally and conjunctivae normal Neck no lymphadenopathy, supple and no JVD Resp normal respiratory effort, no retractions, no use of accessory muscles and clear to auscultation bilaterally Auscultation: Negative for crackles, rales, rhonchi or wheezes Cardio regular rate, regular rhythm, S1 normal heart sound, S2 normal heart sound and no murmurs GI normal to inspection, nondistended, normoactive bowel sounds, soft to palpation, non-tender and non-distended Back/Spine thoracic and lumbar spine normal to inspection and straight leg raise negative bilaterally Thoracic Spine / Upper Back: thoracic spinal tenderness T12 (Very minimal and did not react when distracted) Extremity normal to inspection, full ROM and no clubbing, cyanosis or edema Peripheral Pulses: Yes pulses 2+ throughout Skin no rashes or lesions noted Neuro oriented x3, no focal motor deficits and no sensory deficits noted Sensorium / Orientation: awake and alert Psych affect normal Appearance: appropriate Assessment & Plan Assessment/Plan (1) T12 compression fracture: QUALIFIERS: Encounter type: initial encounter Qualified Code(s): S22.080A - Wedge compression fracture of T11-T12 vertebra, initial encounter for closed fracture PLAN: #T12 compression fracture due to mechanical fall * MRI of the spine showed mild acute anterior wedge compression fracture of T12 * PT/OT on board * fall precautions * awaiting pain management evaluation * on IV morphine prn and PO oxycodone. * #CAD s/p stents * on statin and aspirin as well as atenolol * #Hypertension: on atenolol and furosemide as well as lisinopril #Type 2 diabetes mellitus * on lantus 80 units qhs. ISS. Accuchecks ACHS. * #Anxiety and depression; on zoloft #GERD: on PPI DVT prophylaxis: lovenox Charges/Coding Visit Charges Inpatient E&M: 90684 Subs Hosp L2
[2021-04-16] MEDS: Morphine 2 MG/ML Syringe IV (08:58)
[2021-04-16] MEDS: 0.9% Saline Lock 10 ML Syringe IV ×2 (08:59→10:02)
[2021-04-16] MEDS: Iron Polysaccharide Complex 150 MG CAPSULE PO (09:03)
[2021-04-16] MEDS: Aspirin E.C. 81 MG Tablet 162 MG PO (09:03)
[2021-04-16] MEDS: Lisinopril 40 MG Tablet PO (09:04)
[2021-04-16] MEDS: amLODIPine 5 MG Tablet PO (09:04)
[2021-04-16] MEDS: Potassium Chloride Oral Tablet 10 MEQ 20 MEQ PO (09:04)
[2021-04-16] MEDS: Enoxaparin 40 MG/0.4 ML Syringe SC (09:04)
[2021-04-16] MEDS: Furosemide 40 MG Tablet PO ×2 (09:04→16:53)
[2021-04-16] MEDS: Sertraline 100 MG Tablet PO (09:05)
[2021-04-16] MEDS: Isosorbide Mononitrate 60 MG Tablet PO (09:09)
--- NOTE | 2021-04-16 10:58 | CASEMGMT ---
Social Work Note Pt to be seen by physician for possible Kyphoplasty. THEODORE spoke with Amy with TCU, recommendation is to wait to see if pt will have Kyphoplasty, pt's insurance will likely want updated clinicals after pt has Kyphoplasty. SW to continue to follow. Plan: TCU pending pre-cert Sharyn Hernández FIBER TECHNICIAN, SONOGRAM TECHNICIAN
[2021-04-16] MEDS: Polyethylene Glycol 3350 17 GM PACKET PO (12:19)
[2021-04-16] MEDS: Senna/Docusate Sodium 1 Tablet 2 TABLET PO (12:22)
[2021-04-16 12:36] LABS: Bedside Glucose 226 mg/dL (70-110)
[2021-04-16 13:12] LABS: Mucous, Urine 0 SEEN /hpf (<or=2+); Red Blood Cells-Urine 0 SEEN /hpf (0-5); Squamous Epithelial Cells - UA 0 SEEN /hpf (5-10)
[2021-04-16 13:15] LABS: Color, Urine Yellow (Yellow); Glucose, Dipstick Normal (Normal); Ketone-Dipstick 5 mg/dl (Negative); Leukocyte Esterase-Dipstick 500 /ul (Negative); Nitrite-Dipstick Negative (Negative); Occult Blood-Urine Negative /ul (Negative); Protein-Dipstick Negative (Negative); Urine Bilirubin Dipstick Negative (Negative); Urine Clarity Clear (Clear); Urine Urobilinogen Normal (Normal)
[2021-04-16 13:21] LABS: Bacteria 2+ /hpf (None Seen); White Blood Cells 0-5 SEEN /hpf (0-5)
[2021-04-16] MEDS: Acetaminophen 325 MG Tablet 650 MG PO (17:39)
[2021-04-16 18:16] LABS: Bedside Glucose 164 mg/dL (70-110)
[2021-04-16] MEDS: Glucerna Shake 120 ML LIQUID PO (22:08)
[2021-04-16] MEDS: Atorvastatin Calcium 20 MG Tablet PO (22:09)
[2021-04-16 22:16] LABS: Bedside Glucose 148 mg/dL (70-110)
[2021-04-17] VITALS (21 sets, daily range): BP systolic 98–204; BP diastolic 38–118; PULSE 53–73; RESP 16–20; TEMP 36.2–36.8; O2SAT 92–100; BMI 31.2
[2021-04-17] MEDS: 0.9% Saline Lock 10 ML Syringe IV ×4 (05:51→23:35)
[2021-04-17] MEDS: Sucralfate 1 GM Tablet PO ×4 (05:51→21:33)
[2021-04-17] MEDS: Morphine 2 MG/ML Syringe IV ×2 (05:51→23:36)
--- NOTE | 2021-04-17 06:00 | EKG12_ITS ---
Test Reason : AM EKG Blood Pressure : / mmHG Vent. Rate : 060 BPM Atrial Rate : 060 BPM P-R Int : 178 ms QRS Dur : 152 ms QT Int : 510 ms P-R-T Axes : 047 -44 107 degrees QTc Int : 510 ms Normal sinus rhythm Left axis deviation Left bundle branch block Abnormal ECG Confirmed by JOSSY PEARSON, SADIE ([id number]), assistant editor JENIFER WALLACE ([id number]) on 04/18/2021 8:32:28 AM Referred By: EVA Confirmed By:SADIE FENTON MD
[2021-04-17 06:06] LABS: Absolute Lymphocyte Count 1.54 X10^3/uL (0.83-4.51); Absolute Neutrophil Count 6.7 X10^3/uL (2.0-7.7); Basophil# 0.04 X10^3/uL; Basophil% 0.4 % (0-1); Eosinophils% 3.2 % (0-5); Hematocrit 38.6 % (37-47); Hemoglobin 11.9 g/dL (12.0-15.0); Lymphocyte # 1.54 X10^3/ul (0.83-4.51); Lymphocyte % 16.3 % (19-41); Mean Corp Hgb Conc 30.8 g/dL (32-36); Mean Corpuscular Hgb 25.9 pg (27.0-32.0); Mean Corpuscular Volume 84.1 fL (81-99); Monocyte% 8.5 % (0-10); NRBC Flagged by Analyzer 0 % (0-5); Neutrophil # 6.73 X10^3/uL (2.7-7.7); Neutrophil % 71.1 % (47-70); Platelet Count 230 K/mm3 (150-450); RBC Distribution Width SD 52.7 fl (35.1-43.9); Red Blood Count 4.59 M/mm3 (4.2-5.4); White Blood Count 9.5 K/mm3 (4.4-11.0)
[2021-04-17 06:27] LABS: Anion Gap 6 (5-15); BUN 30 mg/dL (7-18); BUN/Creat Ratio 37.9 RATIO (10-20); Calcium,Total 9.6 mg/dL (8.5-10.1); Chloride 96 mmol/L (98-107); Creatinine, Serum 0.79 mg/dL (0.55-1.02); EST Glomerular Filtration Rate 74 mL/min (>60); Est Glom Filt Rate - Afr Amer 90 mL/min (>60); Estimated Creatinine Clearance 31.69 ml/min; Glucose 194 mg/dL (74-106); Potassium 3.9 mmol/L (3.5-5.1); Sodium Level 133 mmol/L (136-145)
[2021-04-17] MEDS: Insulin Lispro 100 UNIT/ML INSULN.PEN SC ×3 (06:44→21:33)
[2021-04-17 06:51] LABS: Bedside Glucose 231 mg/dL (70-110)
[2021-04-17 07:13] LABS: Hemoglobin A1c 6.4 % (3.8-5.6)
--- NOTE | 2021-04-17 09:34 | CASEMGMT ---
Social Work Note Pt is getting Kyphoplasty today. SW placed a call to Amy with TCU, TCU to submit for pre-cert. Plan: TCU pending pre-cert Sharyn Hernández MSW, SOFTWARE TEST ANALYST
--- NOTE | 2021-04-17 09:50 | NURSING ---
pt left for surgery
[2021-04-17] MEDS: 0.9% Normal Saline 1,000 ML 100 ML IV (10:09)
--- NOTE | 2021-04-17 11:25 | RAD_ITS ---
CLINICAL HISTORY: Female, 81 years old. Back pain. PROCEDURE: KYPHOPLASTY - T12 vertebrae. FLUOROSCOPY TIME (if supplied): (144 seconds) minutes/seconds. 6 intraoperative views were obtained. RAD/Thoracic Spine 2 Views IMPRESSION: Fluoroscopic imaging provided for kyphoplasty of the T12 vertebrae. Electronically Signed: Crow Avalos MD at 12:38 EDT , Service support ,
--- NOTE | 2021-04-17 11:34 | PCM.PN.HOSP ---
Subjective Subjective Patient seen and examined. She had no complaints today and pain was well controlled. Review of systems otherwise negative. She is scheduled for kyphoplasty today by pain management. She has otherwise remained hemodynamically stable. Objective Data Objective Data Vital Signs: Vital Signs Temp Pulse Resp BP Pulse Ox 97.7 F L 64 16 174/63 H 94 04/17/21 08:25 04/17/21 09:33 04/17/21 08:25 04/17/21 08:25 04/17/21 08:25 Oxygen Flow Rate (L/min) 1 Oxygen Delivery Method Room Air Weight: 160 lb 0.889 oz Body Mass Index (BMI) 31.2 Intake & Output: Intake and Output for Last 24 Hours 04/15/21 04/16/21 04/17/21 23:59 23:59 23:59 Intake Total 640 / 640 240 / 240 Output Total 2400 / 2400 600 / 1000 700 / 700 Balance -1760 / -1760 -360 / -760 -700 / -700 Lab / Micro Data Result Diagrams: 04/17/21 05:32 04/17/21 05:32 Labs: Laboratory Results - last 24 hr 04/16/21 04/16/21 04/16/21 12:17 13:05 16:51 WBC RBC Hgb Hct MCV MCH MCHC RDW Std Deviation RDW Coeff of Aubrie Plt Count MPV Immature Gran % (Auto) Neut % (Auto) Lymph % (Auto) [place] % (Auto) Eos % (Auto) Baso % (Auto) Absolute Neuts (auto) Absolute Lymphs (auto) Nucleated RBC % Sodium Potassium Chloride Carbon Dioxide Anion Gap BUN Creatinine Estim Creat Clear Calc Est GFR (MDRD) Af Amer Est GFR (MDRD) Non-Af BUN/Creatinine Ratio Glucose Hemoglobin A1c Calcium Urine Color Yellow Urine Clarity Clear Urine pH 6.0 Ur Specific [place] 1.010 Urine Protein Negative Urine Glucose (UA) Normal Urine Ketones 5 H Urine Occult Blood Negative Urine Nitrite Negative Urine Bilirubin Negative Urine Urobilinogen Normal Ur Leukocyte Esterase 500 H Urine RBC 0 SEEN Urine WBC 0-5 SEEN Ur Squamous Epith Cells 0 SEEN Urine Bacteria 2+ Urine Mucus 0 SEEN POC Glucose 226 H 164 H 04/16/21 04/17/21 04/17/21 22:05 05:32 05:32 WBC 9.5 RBC 4.59 Hgb 11.9 L Hct 38.6 MCV 84.1 MCH 25.9 L MCHC 30.8 L RDW Std Deviation 52.7 H RDW Coeff of Aubrie 17.0 H Plt Count 230 MPV 12.0 Immature Gran % (Auto) 0.500 Neut % (Auto) 71.1 H Lymph % (Auto) 16.3 L [place] % (Auto) 8.5 Eos % (Auto) 3.2 Baso % (Auto) 0.4 Absolute Neuts (auto) 6.7 Absolute Lymphs (auto) 1.54 Nucleated RBC % 0 Sodium 133 L Potassium 3.9 Chloride 96 L Carbon Dioxide 31.0 Anion Gap 6 BUN 30 H Creatinine 0.79 Estim Creat Clear Calc 31.69 Est GFR (MDRD) Af Amer 90 Est GFR (MDRD) Non-Af 74 BUN/Creatinine Ratio 37.9 H Glucose 194 H Hemoglobin A1c Calcium 9.6 Urine Color Urine Clarity Urine pH Ur Specific [place] Urine Protein Urine Glucose (UA) Urine Ketones Urine Occult Blood Urine Nitrite Urine Bilirubin Urine Urobilinogen Ur Leukocyte Esterase Urine RBC Urine WBC Ur Squamous Epith Cells Urine Bacteria Urine Mucus POC Glucose 148 H 04/17/21 04/17/21 05:32 06:43 WBC RBC Hgb Hct MCV MCH MCHC RDW Std Deviation RDW Coeff of Aubrie Plt Count MPV Immature Gran % (Auto) Neut % (Auto) Lymph % (Auto) [place] % (Auto) Eos % (Auto) Baso % (Auto) Absolute Neuts (auto) Absolute Lymphs (auto) Nucleated RBC % Sodium Potassium Chloride Carbon Dioxide Anion Gap BUN Creatinine Estim Creat Clear Calc Est GFR (MDRD) Af Amer Est GFR (MDRD) Non-Af BUN/Creatinine Ratio Glucose Hemoglobin A1c 6.4 H Calcium Urine Color Urine Clarity Urine pH Ur Specific [place] Urine Protein Urine Glucose (UA) Urine Ketones Urine Occult Blood Urine Nitrite Urine Bilirubin Urine Urobilinogen Ur Leukocyte Esterase Urine RBC Urine WBC Ur Squamous Epith Cells Urine Bacteria Urine Mucus POC Glucose 231 H Physical Exam Const alert, oriented x3 and no apparent distress General Appearance: cooperative Exam Limitations: no limitations HEENT normocephalic, head/scalp atraumatic and moist oral mucous membranes Head and Scalp: normocephalic Eyes PERRL, EOMs intact bilaterally and conjunctivae normal Neck no lymphadenopathy, supple and no JVD Resp normal respiratory effort, no retractions, no use of accessory muscles and clear to auscultation bilaterally Auscultation: Negative for crackles, rales, rhonchi or wheezes Cardio regular rate, regular rhythm, S1 normal heart sound, S2 normal heart sound and no murmurs GI normal to inspection, nondistended, normoactive bowel sounds, soft to palpation, non-tender and non-distended Back/Spine thoracic and lumbar spine normal to inspection and straight leg raise negative bilaterally Thoracic Spine / Upper Back: thoracic spinal tenderness T12 (Very minimal and did not react when distracted) Extremity normal to inspection, full ROM and no clubbing, cyanosis or edema Peripheral Pulses: Yes pulses 2+ throughout Skin no rashes or lesions noted Neuro oriented x3, no focal motor deficits and no sensory deficits noted Sensorium / Orientation: awake and alert Psych affect normal Appearance: appropriate Assessment & Plan Assessment/Plan (1) T12 compression fracture: QUALIFIERS: Encounter type: initial encounter Qualified Code(s): S22.080A - Wedge compression fracture of T11-T12 vertebra, initial encounter for closed fracture PLAN: #T12 compression fracture due to mechanical fall MRI of the spine showed mild acute anterior wedge compression fracture of T12 PT/OT on board fall precautions for kyphoplasty today by pain management on IV morphine prn and PO oxycodone. #CAD s/p stents on statin and aspirin as well as atenolol #Hypertension: on atenolol and furosemide as well as lisinopril #Type 2 diabetes mellitus on lantus 80 units qhs. ISS. Accuchecks ACHS. #Anxiety and depression; on zoloft #GERD: on PPI DVT prophylaxis: lovenox Charges/Coding Visit Charges Inpatient E&M: 42601 Subs Hosp L2
[2021-04-17] MEDS: Bupivacaine Mpf 0.5% 30 ML VIAL (11:56)
[2021-04-17] MEDS: Acetaminophen 325 MG Tablet 650 MG PO (12:51)
[2021-04-17 13:01] LABS: Bedside Glucose 230 mg/dL (70-110)
[2021-04-17] MEDS: Lisinopril 40 MG Tablet PO (14:24)
[2021-04-17] MEDS: Iron Polysaccharide Complex 150 MG CAPSULE PO (14:24)
[2021-04-17] MEDS: Isosorbide Mononitrate 60 MG Tablet PO (14:25)
[2021-04-17] MEDS: amLODIPine 5 MG Tablet PO (14:25)
[2021-04-17] MEDS: Sertraline 100 MG Tablet PO (14:25)
[2021-04-17] MEDS: Furosemide 40 MG Tablet PO ×2 (14:25→16:55)
[2021-04-17] MEDS: Potassium Chloride Oral Tablet 10 MEQ 20 MEQ PO (14:26)
[2021-04-17] MEDS: Atenolol 50 MG Tablet PO (14:27)
--- NOTE | 2021-04-17 15:14 | CASEMGMT ---
Pt screened with [facility] Palliative Care Screening Tool due to strata 3, pt did not meet criteria.
--- NOTE | 2021-04-17 16:48 | CASEMGMT ---
Social Work Note SW in to speak with pt and pt's daughter Ailyn present in room. SW introduced self and role at [facility] to Ailyn. Pt gave this worker permission to speak to her in front of her daughter. SW informed pt and Ailyn that pre-cert was submitted for TCU today, will await pre-cert. SW explained visitation to pt and Ailyn on TCU. Pt and Ailyn state understanding. Plan: TCU pending pre-cert Sharyn Hernández [employer], ELECTRICAL SOFTWARE ENGINEER
[2021-04-17 17:06] LABS: Bedside Glucose 200 mg/dL (70-110)
[2021-04-17] MEDS: oxyCODONE 5 MG Tablet PO (19:55)
[2021-04-17] MEDS: Glucerna Shake 120 ML LIQUID PO (21:33)
[2021-04-17] MEDS: Atorvastatin Calcium 20 MG Tablet PO (21:33)
[2021-04-17 22:10] LABS: Bedside Glucose 203 mg/dL (70-110)
[2021-04-18] VITALS (9 sets, daily range): BP systolic 103–154; BP diastolic 39–61; PULSE 50–59; RESP 16; TEMP 36.4–36.6; O2SAT 94–100
[2021-04-18] MEDS: Insulin Lispro 100 UNIT/ML INSULN.PEN SC ×2 (06:39→12:14)
[2021-04-18] MEDS: Sucralfate 1 GM Tablet PO ×3 (06:39→16:45)
[2021-04-18 06:45] LABS: Bedside Glucose 184 mg/dL (70-110)
[2021-04-18] MEDS: Aspirin E.C. 81 MG Tablet 162 MG PO (09:50)
[2021-04-18] MEDS: amLODIPine 5 MG Tablet PO (09:51)
[2021-04-18] MEDS: Atenolol 50 MG Tablet PO (09:51)
[2021-04-18] MEDS: Furosemide 40 MG Tablet PO ×2 (09:51→18:28)
[2021-04-18] MEDS: Iron Polysaccharide Complex 150 MG CAPSULE PO (09:51)
[2021-04-18] MEDS: Sertraline 100 MG Tablet PO (09:51)
[2021-04-18] MEDS: Isosorbide Mononitrate 60 MG Tablet PO (09:51)
[2021-04-18] MEDS: Lisinopril 40 MG Tablet PO (09:51)
[2021-04-18] MEDS: Enoxaparin 40 MG/0.4 ML Syringe SC (09:51)
[2021-04-18] MEDS: Potassium Chloride Oral Tablet 10 MEQ 20 MEQ PO (09:51)
[2021-04-18] MEDS: Glucerna Shake 120 ML LIQUID PO ×2 (09:59→14:37)
--- NOTE | 2021-04-18 10:22 | CASEMGMT ---
Addendum entered by Sharyn Hernández 04/18/21 15:58: RN was also present in pt's room when this worker updated pt that pt can discharge to TCU today. Addendum entered by Sharyn Hernández 04/18/21 15:57: THEODORE placed a call to [employer] cup trimming machine operator and updated her that pt can discharge to TCU today. Addendum entered by Sharyn Hernández 04/18/21 14:32: THEODORE received call from Amy with TCU stating a bed will be available for pt today on TCU, pt can discharge to TCU. Pt will need COVID test, THEODORE updated customer advocate. SW in to speak with pt. SW updated pt that pre-cert was obtained for TCU, pt will discharge to TCU today. THEODORE asked pt if this worker could call her daughter to update and pt gave this worker permission to call her daughter Ailyn. THEODORE placed a call to pt's daughter Ailyn and left message that pre-cert was obtained for TCU and pt will be discharged to TCU today. Plan: TCU today Original Note: Social Work Note THEODORE received message from Amy with [facility] stating pre-cert was obtained. Amy states she will need to confirm if a bed will be available today or tomorrow and will let this worker know. THEODORE updated physician. THEODORE waiting for call back from Amy with [facility]. Plan: TCU Sharyn Hernández MSW, STRATEGIC PARTNERSHIP REPRESENTATIVE
[2021-04-18] MEDS: oxyCODONE 5 MG Tablet PO (11:02)
[2021-04-18 11:11] LABS: Bedside Glucose 251 mg/dL (70-110)
--- NOTE | 2021-04-18 15:26 | DS.PCM_ITS ---
Providers Date of Admission: 04/16/21 Primary Care Physician: Dr. Riley Roca MD Consultations 04/15/21 09:40 Consult: Pain Management Routine Consulting Provider: Ritu Hernandez Reason for Consult: compression fracture EMERGENT Consult: No MD Notified: Yes Date Notified: 04/15/21 Time Notified: 09:40 Method of Notification: spoke with office Reason For Visit: FALL,BACK PAIN,MILD T12 COMPRESSION FRACTURE Diagnosis Discharge Diagnosis (1) T12 compression fracture: Status: Acute Code(s): S22.080A - Wedge compression fracture of T11-T12 vertebra, initial encounter for closed fracture Qualifiers: Encounter type: initial encounter Qualified Code(s): S22.080A - Wedge compression fracture of T11-T12 vertebra, initial encounter for closed fracture (2) Back pain: Status: Acute Code(s): M54.9 - Dorsalgia, unspecified Medications at Discharge Home Medications insulin glargine U-300 conc 80 unit SQ DAILY 11/05/15 sertraline 100 mg PO DAILY 02/26/19 albuterol sulfate 2 puff INHALATION BID 06/11/20 aspirin 162 mg PO DAILY@0800 06/11/20 atenolol 50 mg PO DAILY 06/11/20 atorvastatin 20 mg PO DAILY 06/11/20 furosemide 40 mg PO BID 06/11/20 lisinopril 40 mg PO DAILY 06/11/20 amlodipine 5 mg tablet 5 mg PO DAILY #90 tab 07/04/20 nitroglycerin 0.4 mg sublingual tablet 0.4 mg SUBLINGUAL Q5M PRN #25 tab 10/04/20 sucralfate 1 gm PO 4X/DAY #120 tab 11/01/20 isosorbide mononitrate 60 mg PO DAILY 04/12/21 pantoprazole 40 mg PO DAILY 04/12/21 oxycodone 5 mg PO Q4H PRN 3 Days #18 tab 04/18/21 Hospital Course Procedures - (Kyphoplasty) Summary of Care Provided Minutes Spent on Discharge: 45 Hospital Course: Patient is an 81 y/o female with a PMH as outlined who was admitted via the ED on 04/12/2021 with a complaint of back pain due to mechanical fall. She was doing some diving at home on the day of admission and lost her balance and fell backwards landing on her back and hitting her head. She denied any loss of consciousness but complained of back pain especially with movement. She denied any headache, numbness or tingling, upper or lower extremity weakness, chest pain, shortness of breath, or any other symptoms. CT of the abdomen pelvis showed mild compression fracture of T12 and x-ray of the hip and pelvis were within normal limits. CT of the cervical spine showed no acute fracture or subluxation and CT of the brain was normal and no show any evidence of ischemia or hemorrhage. She was admitted and managed for intractable back pain due to mechanical fall. She was started on pain medication and PT OT was consulted. Patient's pain was not improving, so pain management was consulted and she had kyphoplasty on 04/17/2021. Patient was still unable to ambulate very well without pain so she was skilled for SNF. She was discharged to TCU on 04/18/2021. She is to follow-up with her primary care doctor in 1 to 2 weeks. Patient was seen and examined prior to discharge. She still complained of back pain. Review of systems was otherwise negative. Labs and vitals reviewed. Home medications reviewed and reconciled. Physical Exam Const alert, oriented x3 and no apparent distress General Appearance: cooperative Exam Limitations: no limitations HEENT normocephalic, head/scalp atraumatic and moist oral mucous membranes Eyes PERRL, EOMs intact bilaterally and conjunctivae normal Neck no lymphadenopathy, supple and no JVD Resp normal respiratory effort, no retractions, no use of accessory muscles and clear to auscultation bilaterally Auscultation: Negative for crackles, rales, rhonchi or wheezes Cardio regular rate, regular rhythm, S1 normal heart sound, S2 normal heart sound and no murmurs GI normal to inspection, nondistended, normoactive bowel sounds, soft to palpation, non-tender and non-distended Back/Spine thoracic and lumbar spine normal to inspection and straight leg raise negative bilaterally Thoracic Spine / Upper Back: thoracic spinal tenderness T12 (Very minimal and did not react when distracted) Extremity normal to inspection, full ROM and no clubbing, cyanosis or edema Skin no rashes or lesions noted Neuro oriented x3, no focal motor deficits and no sensory deficits noted Sensorium / Orientation: awake and alert Psych affect normal Appearance: appropriate Weight / BMI Weight Weight: 160 lb 0.889 oz Body Mass Index (BMI) 31.2 ABG / Lab / Microbiology Data Result Diagrams: 04/17/21 05:32 04/17/21 05:32 Laboratory: Laboratory Results - last 24 hr 04/17/21 04/17/21 04/18/21 16:49 21:32 06:39 POC Glucose 200 H 203 H 184 H 04/18/21 11:06 POC Glucose 251 H D/C Instructions Discharge Diet: 2000 mg Sodium Diet Discharge Activity: Return to Normal Activity Weight Bearing Status: Weight bearing as tolerated Call your doctor if you observe: Uncontrolled pain Meaningful Use Info Meaningful Use Diagnoses (Choose all that apply): None applicable Discharge Plan Admission Admit Date/Time: 04/16/21 12:21 Primary Reason for Your Visit: acute compression fracture; intractable back pain Attending Provider: Ene Villa Primary Care Provider: Riley Roca Chi Consulting Providers: Ritu Hernandez Instructions Patient Instructions: Kyphoplasty, Back Basics: A Healthy Spine, ED Fracture, Vertebral Compression Discharge Orders/Prescriptions Prescriptions: New oxycodone 5 mg tablet 5 mg PO Q4H PRN (Reason: pain) 3 Days Qty: 18 RF: 0 Continued amlodipine 5 mg tablet 5 mg PO DAILY Qty: 90 RF: 4 insulin glargine U-300 conc 300 UNIT/ML insulin pen 80 unit SQ DAILY RF: 0 sertraline 100 MG tablet 100 mg PO DAILY RF: 0 aspirin 81 MG tablet 162 mg PO DAILY@0800 RF: 0 albuterol sulfate 90 mcg/actuation HFA aerosol inhaler 2 puff INHALATION BID RF: 0 furosemide 40 MG tablet 40 mg PO BID RF: 0 atorvastatin 20 MG tablet 20 mg PO DAILY RF: 0 lisinopril 40 MG tablet 40 mg PO DAILY RF: 0 atenolol 50 MG tablet 50 mg PO DAILY RF: 0 sucralfate 1 GM tablet 1 gm PO 4X/DAY Qty: 120 RF: 1 pantoprazole 40 mg tablet,delayed release (DR/EC) 40 mg PO DAILY RF: 0 isosorbide mononitrate 60 mg tablet extended release 24 hr 60 mg PO DAILY RF: 0 nitroglycerin 0.4 mg tablet, sublingual 0.4 mg SUBLINGUAL Q5M PRN (Reason: Chest Pain) Qty: 25 RF: 3 Referrals / Follow Up: Riley Roca Chi, MD [Primary Care Provider] - In 1 Week Disposition Disposition (needs filled in before D/C Order can be placed): [facility] Facility Charges/Coding Visit Charges Inpatient E&M: 82033 Disch Hosp
--- NOTE | 2021-04-18 16:02 | PCM.TXEXTCAR ---
Diet 04/13/21 09:53 Diet: Carbohydrate Controlled Food consistency:: Regular Liquid Consistency:: Regular/Thin Dietary Modifications:: No Added Salt Is pt able to select menu?: Yes Wound(s) RFA: Wound Type: Abrasion mid back: Wound Type: Surgical Incision Problem/Diagnosis (1) T12 compression fracture: Status: Acute (2) Back pain: Status: Acute Allergies/Procedures Done in Hospital Allergies latex Allergy (Verified 04/12/21 13:15) Rash Type of Care/Length of Stay Estimated LOS: Convalescent Care Less Than 30 days Type of Care Needed: Skilled Rehab Potential: Good Prognosis: Good Additional Orders/Day of Discharge Day of Discharge: 04/18/21 Dietary and Speech Recommendations Dietitian Recommendations/Changes: Will continue CHO controlled diet; change from cardiac to no added salt d/t decreased PO; continue Glucerna 120mL 4x/day w/ medpass. Discharge Plan Admission Admit Date/Time: 04/16/21 12:21 Primary Reason for Your Visit: acute compression fracture; intractable back pain Attending Provider: Ene Villa Primary Care Provider: Riley Roca Chi Consulting Providers: Ritu Hernandez Instructions Patient Instructions: Kyphoplasty, Back Basics: A Healthy Spine, ED Fracture, Vertebral Compression Discharge Orders/Prescriptions Prescriptions: New oxycodone 5 mg tablet 5 mg PO Q4H PRN (Reason: pain) 3 Days Qty: 18 RF: 0 Continued amlodipine 5 mg tablet 5 mg PO DAILY Qty: 90 RF: 4 insulin glargine U-300 conc 300 UNIT/ML insulin pen 80 unit SQ DAILY RF: 0 sertraline 100 MG tablet 100 mg PO DAILY RF: 0 aspirin 81 MG tablet 162 mg PO DAILY@0800 RF: 0 albuterol sulfate 90 mcg/actuation HFA aerosol inhaler 2 puff INHALATION BID RF: 0 furosemide 40 MG tablet 40 mg PO BID RF: 0 atorvastatin 20 MG tablet 20 mg PO DAILY RF: 0 lisinopril 40 MG tablet 40 mg PO DAILY RF: 0 atenolol 50 MG tablet 50 mg PO DAILY RF: 0 sucralfate 1 GM tablet 1 gm PO 4X/DAY Qty: 120 RF: 1 pantoprazole 40 mg tablet,delayed release (DR/EC) 40 mg PO DAILY RF: 0 isosorbide mononitrate 60 mg tablet extended release 24 hr 60 mg PO DAILY RF: 0 nitroglycerin 0.4 mg tablet, sublingual 0.4 mg SUBLINGUAL Q5M PRN (Reason: Chest Pain) Qty: 25 RF: 3 Referrals / Follow Up: Riley Roca Chi, MD [Primary Care Provider] - In 1 Week Disposition Disposition (needs filled in before D/C Order can be placed): Assisted Facility
[2021-04-18 17:15] LABS: Bedside Glucose 99 mg/dL (70-110)
[2021-04-18] MEDS: Senna/Docusate Sodium 1 Tablet 2 TABLET PO (18:37)
== END 2021-04-18 19:35 | disposition skilled nursing facility (03) | DRG 516 ==
LOC: ED 13:42 → MS3 16:56
PROVIDERS: Anesthesiology; Anesthesiology Pain Medicine; Family Medicine; Admitting Provider Hospitalist; Emergency Provider Emergency Medicine; PCP Family Medicine Geriatric Medicine; Visit Provider Student in an Organized Health Care Education/Training Program
PROC: 0PS43ZZ Reposition Thoracic Vertebra, Percutaneous Approach (ICD-10-PCS; principal; 2021-04-17 10:30)
DX: S22.080A Wedge compression fracture of T11-T12 vertebra, initial encounter for closed fracture (principal); I50.32 Chronic diastolic (congestive) heart failure; W18.30XA Fall on same level, unspecified, initial encounter; Y93.H2 Activity, gardening and landscaping; Y92.007 Garden or yard of unspecified non-institutional (private) residence as the place of occurrence of the external cause; Y99.8 Other external cause status; E66.9 Obesity, unspecified; Z68.31 Body mass index [BMI] 31.0-31.9, adult; I25.10 Atherosclerotic heart disease of native coronary artery without angina pectoris; E11.9 Type 2 diabetes mellitus without complications; F41.9 Anxiety disorder, unspecified; F32.9 Major depressive disorder, single episode, unspecified; K21.9 Gastro-esophageal reflux disease without esophagitis; Z95.5 Presence of coronary angioplasty implant and graft; Z79.4 Long term (current) use of insulin; Z79.899 Other long term (current) drug therapy; E78.5 Hyperlipidemia, unspecified; I11.0 Hypertensive heart disease with heart failure
CPT/HCPCS: 36415; 70450; 71250; 72070; 72125; 72148; 73502; 74176; 76000; 80048; 81001; 82962; 83036; 85025; 87426; 90715; 93005; 97110; 97161; 97166; 97530; 97535; 97802; 97803; 99251; 99284; J7030; A4216; G0463; J2405

== ENCOUNTER 2021-04-18 19:40 | Inpatient (IN) | payer MEDICARE, SELFPAY ==
[2021-04-17 09:35] VITALS: BMI 31.2
[2021-04-18 19:56] VITALS: BP 125/31; PULSE 57; RESP 18; TEMP 36.3; O2SAT 98
--- NOTE | 2021-04-18 21:14 | PCM.HP.STD ---
HPI - General General Date of Admission: 04/18/21 HPI Narrative 04/12/2021 LARRY MALDONADO, is a 81 Female who presents to [facility] Emergency Department with back pain. Fall, landed on back, hit head, no loss of consciousness. Failed Tylenol, significant back pain. Lower abdominal pain radiating to back. Baseline occasional cane with ambulation. CT head negative, CT cervical spine negative. CT abdomen/pelvis showed T12 compression fracture. Pain severe, unable to go home, lives alone. 04/12/2021 Admit to Hospital. Tylenol, Morphine, Zofran, Oxycodone for T12 compression fracture pain. 04/13/2021 Oxygen 1-2 Liters per nasal cannula for hypoxia. PT/OT for Care Home Facility. 04/14/2021 Able to walk on 15 feet. 04/14/2021 MRI lumbar spine showed T12 compression fracture, lumbar spinal stenosis. 04/15/2021 Consult pain management. 04/16/2021 Dr. Hernandez recommended T12 kyphoplasty. 04/17/2021 Dr. Hernandez performed T12 kyphoplastly. 04/18/2021 Admit to TCU with debility, here for rehabilitation, strengthening, prior to discharge home alone. [facility] Medical History (Updated 04/18/21 @ 21:[address] Riley Roca MD) Congestive heart failure (CHF) Depression History of hemorrhoids Non-smoker PAD (peripheral artery disease) Home Medications insulin glargine U-300 conc 80 unit SQ DAILY 11/05/15 [History Last Taken 04/11/21] sertraline 100 mg PO DAILY 02/26/19 [History Last Taken 04/12/21] albuterol sulfate 2 puff INHALATION BID 06/11/20 [History Last Taken 04/11/21] aspirin 162 mg PO DAILY@0800 06/11/20 [History Last Taken 04/12/21] atenolol 50 mg PO DAILY 06/11/20 [History Last Taken 04/12/21] atorvastatin 20 mg PO DAILY 06/11/20 [History Last Taken 04/12/21] furosemide 40 mg PO BID 06/11/20 [History Last Taken 04/12/21] lisinopril 40 mg PO DAILY 06/11/20 [History Last Taken 04/12/21] amlodipine 5 mg tablet 5 mg PO DAILY #90 tab 07/04/20 [Rx Last Taken 04/12/21] nitroglycerin 0.4 mg sublingual tablet 0.4 mg SUBLINGUAL Q5M PRN #25 tab 10/04/20 [Rx Last Taken 04/10/21] sucralfate 1 gm PO 4X/DAY #120 tab 11/01/20 [Rx Last Taken 04/12/21] isosorbide mononitrate 60 mg PO DAILY 04/12/21 [History Last Taken 04/12/21] pantoprazole 40 mg PO DAILY 04/12/21 [History Last Taken 04/12/21] oxycodone 5 mg PO Q4H PRN 3 Days #18 tab 04/18/21 [Rx Last Taken Unknown] Allergy/AdvReac Type Severity Reaction Status Date / Time latex Allergy Rash Verified 04/12/21 13:15 Family History Father CVA (cerebral vascular accident) Mother Heart disease CAD (coronary artery disease) Sister CAD (coronary artery disease) Daughter CAD (coronary artery disease) Myocardial infarction Daughter Diabetes Surgical History (Updated 04/18/21 @ 21:[address] Riley Roca MD) H/O: hysterectomy History of carpal tunnel release History of cholecystectomy History of coronary artery stent placement History of kyphoplasty Hx of cholecystectomy Hx of knee surgery Social History (Updated 04/18/21 @ 21:[address] Riley Roca MD) household members: none Smoking Status: Never smoker alcohol intake: never ROS Constitutional Constitutional: Denies chills, fever(s) or weight gain ENT HEENT: Denies headache(s), nasal congestion or nasal discharge Cardiovascular Cardiovascular: Denies chest pain or palpitations Respiratory/Chest Respiratory/Chest: Denies cough, excessive phlegm production or shortness of breath with exertion Gastrointestinal Gastrointestinal: Denies abdominal pain, nausea or vomiting Genitourinary Genitourinary: Denies dysuria Musculoskeletal Musculoskeletal: Denies joint pain or joint swelling Integumentary Integumentary: Denies rash or wounds Neurologic Neurologic: Denies focal weakness, numbness or tingling Psychiatric Psychiatric: Reports auditory hallucinations; Denies anxiety, depression, homicidal ideation or suicidal ideation Vital Signs Vital Signs Vital Signs: 04/18/21 19:56 Temperature 97.3 F L Temperature Source Temporal Pulse Rate 57 L Respiratory Rate 18 Blood Pressure 125/31 H Blood Pressure Mean 62 Blood Pressure Source Monitor Blood Pressure Position Supine Blood Pressure Location Right Arm Pulse Ox 98 Oxygen Delivery Method Nasal Cannula Oxygen Flow Rate (L/min) 2 Weight Body Mass Index (BMI) 31.2 Physical Exam Const alert and oriented x3 General Appearance: cooperative HEENT normocephalic Eyes PERRL and EOMs intact bilaterally Neck supple, no JVD and no carotid bruits Resp normal respiratory effort, normal air movement and clear to auscultation bilaterally Cardio regular rate and regular rhythm GI normal to inspection, nondistended, normoactive bowel sounds, non-tender and non-distended Extremity normal capillary refill General Extremity: Negative for edema Skin no rashes or lesions noted General Skin Exam: no breakdown Psych affect normal Appearance: appropriate Results Lab / Micro Data Result Diagrams: 04/19/21 05:10 04/19/21 05:10 Assessment & Plan Assessment/Plan (1) Debility: (2) T12 compression fracture: QUALIFIERS: Encounter type: initial encounter Qualified Code(s): S22.080A - Wedge compression fracture of T11-T12 vertebra, initial encounter for closed fracture (3) Lumbar spinal stenosis: (4) Diabetes mellitus: (5) Depression: (6) Hyperlipidemia: (7) Gastroesophageal reflux disease: (8) Coronary artery disease: PLAN: 81 year old female with below past medical history hospitalized for T12 compression fracture, underwent T12 kyphoplasty 04/17/[address] Hernandez, admitted to TCU with debility, here for rehabilitation, strengthening, prior to discharge home alone. Debility - PT/OT. Pain - Tylenol 1000MG Q6H PRN pain (1-5), Oxycodone 5MG Q4H PRN pain (6-10). Bowel - Miralax 17GM daily, Senna/colace 2 tablets twice daily, Dulcolax 10MG daily PRN. Adult immunization - Administer Prevnar 13, Pneumovax 23, Fluzone, COVID19 vaccine as appropriate. DVT prophylaxis - Hold, history gastritis. Diabetes Mellitus II - Lantus 80 units daily. Hypertension - Atenolol 50MG daily, Lisinopril 40MG daily, Amlodipine 5MG daily. 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 Coronary Artery Disease - Atenolol 50MG daily, Lisinopril 40MG daily, Isosorbide [place] 60MG daily, Aspirin 81MG daily, NTG 0.4MG Q5M PRN chest pain. Shortness of breath - Albuterol MDI 2 puffs twice daily. Edema - Lasix 40MG daily. Hyperlipidemia - Atorvastatin 20MG QHS. GERD - Pantoprazole 40MG daily, Sucralfate 1GM 4x/day.
[2021-04-18 21:41] LABS: Bedside Glucose 72 mg/dL (70-110)
[2021-04-18] MEDS: Atorvastatin Calcium 20 MG Tablet PO (22:01)
[2021-04-18] MEDS: Sucralfate 1 GM Tablet PO (22:01)
--- NOTE | 2021-04-18 22:28 | NURSING ---
Spoke w/ Dr. Roca via phone to update on UA results. Allergies verified. New order received and read back for Cipro 500 mg po x1 now, then 500 mg po BID x7 days.
[2021-04-18] MEDS: oxyCODONE 5 MG Tablet PO (22:36)
[2021-04-18] MEDS: Acetaminophen 500 MG Tablet 1000 MG PO (22:36)
[2021-04-18 23:52] VITALS: BMI 31.2
[2021-04-19 02:57] VITALS: BP 130/50; PULSE 54; RESP 18; O2SAT 95
--- NOTE | 2021-04-19 04:05 | NURSING ---
Pt. venus containing 2 credit cards locked in med box per pt. request, second RN present. Pt. states daughter to arrive to pick-up kush and venus possibly 04/19/21.
[2021-04-19 05:45] LABS: Absolute Lymphocyte Count 2.02 X10^3/uL (0.83-4.51); Absolute Neutrophil Count 6.4 X10^3/uL (2.0-7.7); Basophil# 0.04 X10^3/uL; Basophil% 0.4 % (0-1); Eosinophils% 4.1 % (0-5); Hematocrit 30.9 % (37-47); Hemoglobin 9.4 g/dL (12.0-15.0); Lymphocyte # 2.02 X10^3/ul (0.83-4.51); Lymphocyte % 20.6 % (19-41); Mean Corp Hgb Conc 30.4 g/dL (32-36); Mean Corpuscular Volume 85.4 fL (81-99); Mean Platelet Vol. 11.9 fl (6.2-12.0); Monocyte# 0.86 X10^3/uL; Monocyte% 8.8 % (0-10); NRBC Flagged by Analyzer 0 % (0-5); Neutrophil # 6.41 X10^3/uL (2.7-7.7); Neutrophil % 65.5 % (47-70); Platelet Count 199 K/mm3 (150-450); RBC Distribution Width CV 17.1 % (11.6-14.6); RBC Distribution Width SD 53.7 fl (35.1-43.9); Red Blood Count 3.62 M/mm3 (4.2-5.4); White Blood Count 9.8 K/mm3 (4.4-11.0)
[2021-04-19 06:26] LABS: Bedside Glucose 159 mg/dL (70-110)
[2021-04-19] MEDS: Glucerna Shake 120 ML LIQUID PO ×2 (06:35→22:30)
[2021-04-19] MEDS: Menthol/Lanolin/Calamine/Znox 113 GM Tube 1 APPLIC TOPICAL ×2 (06:35→17:06)
[2021-04-19] MEDS: Polyethylene Glycol 3350 17 GM PACKET PO (06:36)
[2021-04-19] MEDS: Atenolol 50 MG Tablet PO (06:38)
[2021-04-19] MEDS: amLODIPine 5 MG Tablet PO (06:38)
[2021-04-19] MEDS: Sertraline 100 MG Tablet PO (06:38)
[2021-04-19] MEDS: Senna/Docusate Sodium 1 Tablet 2 TABLET PO (06:38)
[2021-04-19] MEDS: Furosemide 40 MG Tablet PO ×2 (06:38→17:05)
[2021-04-19] MEDS: Pantoprazole Sodium 40 MG Tablet PO (06:38)
[2021-04-19] MEDS: Sucralfate 1 GM Tablet PO ×4 (06:38→22:30)
[2021-04-19] MEDS: Isosorbide Mononitrate 60 MG Tablet PO (06:38)
[2021-04-19] MEDS: Lisinopril 40 MG Tablet PO (06:38)
[2021-04-19] MEDS: Aspirin E.C. 81 MG Tablet PO (06:39)
[2021-04-19 07:12] LABS: Anion Gap 8 (5-15); BUN 42 mg/dL (7-18); BUN/Creat Ratio 34.7 RATIO (10-20); Calcium,Total 9.1 mg/dL (8.5-10.1); Chloride 97 mmol/L (98-107); Creatinine, Serum 1.21 mg/dL (0.55-1.02); EST Glomerular Filtration Rate 45 mL/min (>60); Est Glom Filt Rate - Afr Amer 55 mL/min (>60); Estimated Creatinine Clearance 26.19 ml/min; Glucose 138 mg/dL (74-106); Potassium 3.7 mmol/L (3.5-5.1); Sodium Level 135 mmol/L (136-145)
[2021-04-19] MEDS: Iron Polysaccharide Complex 150 MG CAPSULE PO (08:39)
--- NOTE | 2021-04-19 10:05 | EX.NTREPO ---
Medical Nutrition Therapy - History Nutrition Services has been consulted to:: Manage nutrient details of diet order Current diet/nutrition support order:: Regular Consistent CHO, No Added Salt - Anthropometric Measurements Height:: 5 ft Weight:: 72.6 kg Body Mass Index (BMI):: 31.2 - Relevant Labs Relevant Labs:: RBC 3.62 M/mm3 (4.2-5.4) L 04/19/21 05:10 Hgb 9.4 g/dL (12.0-15.0) L 04/19/21 05:10 Hct 30.9 % (37-47) L 04/19/21 05:10 MCH 26.0 pg (27.0-32.0) L 04/19/21 05:10 MCHC 30.4 g/dL (32-36) L 04/19/21 05:10 RDW Std Deviation 53.7 fl (35.1-43.9) H 04/19/21 05:10 RDW Coeff of Aubrie 17.1 % (11.6-14.6) H 04/19/21 05:10 Sodium 135 mmol/L (136-145) L 04/19/21 05:10 Chloride 97 mmol/L (98-107) L 04/19/21 05:10 BUN 42 mg/dL (7-18) H 04/19/21 05:10 Creatinine 1.21 mg/dL (0.55-1.02) H 04/19/21 05:10 Est GFR (MDRD) Af Amer 55 mL/min (>60) L 04/19/21 05:10 Est GFR (MDRD) Non-Af 45 mL/min (>60) L 04/19/21 05:10 BUN/Creatinine Ratio 34.7 RATIO (10-20) H 04/19/21 05:10 Glucose 138 mg/dL (74-106) H 04/19/21 05:10 - Assessment Food and Nutrient Intake: Good po intake at breakfast (only cereal and coffee) - res states this is the best she ate since adm to hospital after falling. States nothing tastes good. Is accepting and agreeable to drinking of ONS w/ medpass. No issues eating/swallowing (despite edentulous w/ dentures at home - declines mech altered consistencies w/ food). UBW: 77.11 kg - decrease of 5.9% x 1 mo ago - res states that at first she was cutting back on portions w/ intent to lose wt (and is happy that she has lost wt), but po intake poor x 1 wk d/t nothing tastes good and issues w/ pain control. - Nutrition Diagnosis: Clinical Problem Acute Disease or Injury Related Malnutrition Clinical Problem - Etiology: related to recent fall and subsequent back surgery Clinical Problem - Signs/Symptoms: as evidenced by >2% wt loss x 1 wk and <50% po intake of estimated nutrition needs x >5 days Status: Active Problem - Protein Calorie Malnutrition Evidence of Malnutrition Exists: Yes Severe Protein Calorie Malnutrition:: Acute Illness/Injury - Nutrition Intervention Nutrition Prescription: [id number] kirstin /day (RMR x 1.2-1.3). 72-86 gm pro/day (1-1.2 gm/kg). 2040 ml fluid/day (per ASPEN guidelines) - Food / Nutrient Delivery Interventions Nutrition support ordered as / adjusted to:: Will continue diet/ONS as ordered - MNT Monitoring Active Nutrition Patient: Yes Nutrition Status: Requires Follow Up 7-9 Days - please call RD/LD if questions/concerns at [id number]
[2021-04-19 10:06] VITALS: BMI 31.2
--- NOTE | 2021-04-19 10:24 | CASEMGMT ---
Addendum entered by Leandra West 04/19/21 11:34: Social Work SW did let pt know the next review date for insurance is 04/23/21, and we will let her know if insurance authorizes additional time for pt to be in TCU. Pt states understanding. TEMO Kent Original Note: Social Work SW met w/pt for initial assessment, educated pt to role of SW in TCU. SW discussed code status w/pt, at this time opts for DNRCC-A, RN notified. MOLST deferred at this time as pt wants to discuss code status and end of life care options w/family. SW reviewed w/pt that insurance indicate how long she is authorized to be here, and we will keep her informed. Pt states understanding. Pt's goal from here is to return home, open to home health vs outpt PT as needed. Also, pt is on O2 at present but does not use it at home. SW will continue to follow for homegoing needs. TEMO Kent
--- NOTE | 2021-04-19 10:25 | NURSING ---
Pt reports poor appetite, BS last night 72 with snack, pt c/o abdominal/pelvic pain no BM 04/12/21. Dr Roca updated and Lantus decreased to 60units SC QD, and CHACHA
--- NOTE | 2021-04-19 10:35 | RAD_ITS ---
STUDY: X-RAY - ABDOMEN/PELVIS REASON FOR EXAM: Female, 81 years old. Constipation TECHNIQUE: Single AP view of the abdomen / pelvis. COMPARISON: Comparison is made with prior examination dated 02/07/2021. FINDINGS: There is a moderate amount of colonic fecal material. The visualized liver, spleen and kidneys are grossly normal in size and morphology. Vascular calcification Prior vertebroplasty of the T12 vertebrae. RAD/Abdomen Single View IMPRESSION: Moderate amount of fecal material is seen in the colon. Electronically Signed: Crow Avalos MD at 11:00 EDT , Service support ,
[2021-04-19 11:16] VITALS: PULSE 54; O2SAT 98
[2021-04-19 11:20] LABS: Bedside Glucose 180 mg/dL (70-110)
[2021-04-19] MEDS: Bisacodyl 5 MG Tablet 10 MG PO (11:28)
[2021-04-19] MEDS: 0.9% Saline Lock 10 ML Syringe IV (11:31)
--- NOTE | 2021-04-19 11:40 | NURSING ---
spoke with daughter Ailyn on phone. She will be in to visit, asked her to bring in pts dentures and vaccine card.
[2021-04-19] MEDS: oxyCODONE 5 MG Tablet PO (14:02)
[2021-04-19] MEDS: Magnesium Citrate 300 ML PO (14:03)
--- NOTE | 2021-04-19 15:05 | NURSING ---
pt last BM was on 04/12 according to pt, kub done, dr burk reviewed, new order for mag citrate.
[2021-04-19 16:56] LABS: Bedside Glucose 114 mg/dL (70-110)
[2021-04-19 17:34] VITALS: BP 137/39; PULSE 54; RESP 16; TEMP 36.3; O2SAT 98
[2021-04-19 22:05] LABS: Bedside Glucose 100 mg/dL (70-110)
[2021-04-19] MEDS: Atorvastatin Calcium 20 MG Tablet PO (22:30)
[2021-04-20] MEDS: oxyCODONE 5 MG Tablet PO ×3 (03:03→21:40)
[2021-04-20 05:00] VITALS: BP 139/59; PULSE 60; RESP 18; TEMP 36.5; O2SAT 95
[2021-04-20] MEDS: Sertraline 100 MG Tablet PO (05:46)
[2021-04-20] MEDS: Glucerna Shake 120 ML LIQUID PO ×3 (05:46→21:40)
[2021-04-20] MEDS: Sucralfate 1 GM Tablet PO ×4 (05:46→21:41)
[2021-04-20] MEDS: Menthol/Lanolin/Calamine/Znox 113 GM Tube 1 APPLIC TOPICAL ×2 (05:46→17:15)
[2021-04-20] MEDS: Senna/Docusate Sodium 1 Tablet 2 TABLET PO (05:47)
[2021-04-20] MEDS: Lisinopril 40 MG Tablet PO (05:47)
[2021-04-20] MEDS: Furosemide 40 MG Tablet PO ×2 (05:47→17:14)
[2021-04-20] MEDS: amLODIPine 5 MG Tablet PO (05:47)
[2021-04-20] MEDS: Atenolol 50 MG Tablet PO (05:47)
[2021-04-20] MEDS: Pantoprazole Sodium 40 MG Tablet PO (05:47)
[2021-04-20] MEDS: Isosorbide Mononitrate 60 MG Tablet PO (05:47)
[2021-04-20 06:26] LABS: Bedside Glucose 91 mg/dL (70-110)
[2021-04-20] MEDS: Iron Polysaccharide Complex 150 MG CAPSULE PO (08:27)
[2021-04-20] MEDS: Aspirin E.C. 81 MG Tablet PO (08:27)
[2021-04-20] MEDS: Tuberculin,Purif.prot.deriv. 50 TU/ML Vial 0.1 ML ID (09:56)
[2021-04-20 10:41] LABS: Bedside Glucose 171 mg/dL (70-110)
[2021-04-20 11:05] VITALS: O2SAT 97
[2021-04-20 15:51] VITALS: BP 136/68; PULSE 56; RESP 16; TEMP 36.5; O2SAT 96
[2021-04-20 16:36] LABS: Bedside Glucose 136 mg/dL (70-110)
[2021-04-20 21:30] LABS: Bedside Glucose 145 mg/dL (70-110)
[2021-04-20] MEDS: Atorvastatin Calcium 20 MG Tablet PO (21:41)
[2021-04-21 05:25] LABS: Hematocrit 33.9 % (37-47); Hemoglobin 10.4 g/dL (12.0-15.0)
[2021-04-21 06:18] VITALS: BP 138/82; RESP 16; TEMP 36.3
[2021-04-21 06:19] VITALS: PULSE 54
[2021-04-21] MEDS: Glucerna Shake 120 ML LIQUID PO ×2 (06:25→16:23)
[2021-04-21 06:26] LABS: Bedside Glucose 112 mg/dL (70-110)
[2021-04-21] MEDS: Menthol/Lanolin/Calamine/Znox 113 GM Tube 1 APPLIC TOPICAL ×2 (06:26→16:22)
[2021-04-21] MEDS: Furosemide 40 MG Tablet PO ×2 (06:27→16:22)
[2021-04-21] MEDS: Sucralfate 1 GM Tablet PO ×4 (06:27→20:00)
[2021-04-21] MEDS: Senna/Docusate Sodium 1 Tablet 2 TABLET PO ×2 (06:27→16:22)
[2021-04-21] MEDS: Pantoprazole Sodium 40 MG Tablet PO (06:28)
[2021-04-21] MEDS: Sertraline 100 MG Tablet PO (06:28)
[2021-04-21] MEDS: Lisinopril 40 MG Tablet PO (06:32)
[2021-04-21] MEDS: Atenolol 50 MG Tablet PO (06:32)
[2021-04-21] MEDS: amLODIPine 5 MG Tablet PO (06:32)
[2021-04-21] MEDS: Isosorbide Mononitrate 60 MG Tablet PO (06:32)
[2021-04-21 06:34] VITALS: BP 140/34
--- NOTE | 2021-04-21 07:00 | NURSING ---
Nahun held at this time d/t pt being drowsy w/ am med pass, blood sugar reading of 112, and uncertain how much food and fluid pt will consume at breakfast. Did not administer MDI at this time d/t drowsiness. Oncoming nurses updated.
[2021-04-21 07:36] VITALS: O2SAT 99
[2021-04-21] MEDS: Aspirin E.C. 81 MG Tablet PO (07:54)
[2021-04-21] MEDS: Iron Polysaccharide Complex 150 MG CAPSULE PO (07:54)
[2021-04-21 09:34] VITALS: PULSE 60; RESP 18; O2SAT 95
[2021-04-21 11:16] LABS: Bedside Glucose 177 mg/dL (70-110)
[2021-04-21 15:52] VITALS: BP 152/51; PULSE 59; RESP 18; TEMP 35.9; O2SAT 97
[2021-04-21 17:00] LABS: Bedside Glucose 89 mg/dL (70-110)
[2021-04-21] MEDS: Atorvastatin Calcium 20 MG Tablet PO (20:00)
[2021-04-21 21:21] LABS: Bedside Glucose 97 mg/dL (70-110)
[2021-04-22] MEDS: oxyCODONE 5 MG Tablet PO ×2 (03:01→09:20)
[2021-04-22 06:20] VITALS: BP 101/31; PULSE 54; RESP 16; TEMP 35.7; O2SAT 99
[2021-04-22] MEDS: Menthol/Lanolin/Calamine/Znox 113 GM Tube 1 APPLIC TOPICAL ×2 (06:21→17:10)
[2021-04-22] MEDS: Isosorbide Mononitrate 60 MG Tablet PO (06:22)
[2021-04-22] MEDS: Furosemide 40 MG Tablet PO ×2 (06:22→17:09)
[2021-04-22] MEDS: Sertraline 100 MG Tablet PO (06:23)
[2021-04-22] MEDS: Pantoprazole Sodium 40 MG Tablet PO (06:23)
[2021-04-22] MEDS: amLODIPine 5 MG Tablet PO (06:23)
[2021-04-22] MEDS: Lisinopril 40 MG Tablet PO (06:23)
[2021-04-22] MEDS: Sucralfate 1 GM Tablet PO ×4 (06:23→21:56)
[2021-04-22] MEDS: Glucerna Shake 120 ML LIQUID PO ×3 (06:28→17:09)
[2021-04-22 06:31] LABS: Bedside Glucose 89 mg/dL (70-110)
[2021-04-22 06:55] VITALS: O2SAT 97
[2021-04-22] MEDS: Iron Polysaccharide Complex 150 MG CAPSULE PO (09:15)
[2021-04-22] MEDS: Aspirin E.C. 81 MG Tablet PO (09:15)
--- NOTE | 2021-04-22 10:05 | PCM.PN.RX ---
Progress Note - Pharmacy Subjective: TCU Admission Objective: Allergies latex Allergy (Verified 04/12/21 13:15) Rash Current Medications Generic Name Dose Route Start Last Admin Trade Name Artemq PRN Reason Stop Dose Admin Acetaminophen 1,000 mg 04/18/21 21:35 04/18/21 22:36 Acetaminophen 500 Mg Tablet PO 1,000 mg Q6H PRN PRN Administration Pain Score 1-5 Albuterol Sulfate 2 puff 04/19/21 06:00 04/22/21 06:25 Albuterol Sulfate Hfa 6.7 Gm Inhaler (200 Puffs) INHALATION 2 puff BID DISHA Administration Amlodipine Besylate 5 mg 04/19/21 06:00 04/22/21 06:23 Amlodipine 5 Mg Tablet PO 5 mg DAILY DISHA Administration Aspirin 81 mg 04/19/21 08:00 04/22/21 09:15 Aspirin E.C. 81 Mg Tablet PO 81 mg DAILY@0800 DISHA Administration Atenolol 50 mg 04/19/21 06:00 04/22/21 06:24 Atenolol 50 Mg Tablet PO Not Given DAILY [facility] Atorvastatin Calcium 20 mg 04/18/21 22:00 04/21/21 20:00 Atorvastatin Calcium 20 Mg Tablet PO 20 mg QHS DISHA Administration Bisacodyl 10 mg 04/18/21 21:35 04/19/21 11:28 Bisacodyl 5 Mg Tablet PO 10 mg DAILY PRN PRN Administration Constipation Calamine/Phenol 1 applic 04/19/21 06:00 04/22/21 06:21 Menthol/Lanolin/Calamine/Znox 113 Gm Tube TOPICAL 1 applic BID DISHA Administration Protocol Furosemide 40 mg 04/19/21 06:00 04/22/21 06:22 Furosemide 40 Mg Tablet PO 40 mg BID DISHA Administration Insulin Glargine 60 units 04/20/21 06:00 04/22/21 09:15 Insulin Glargine 100 Units/Ml Pen SC 60 u DAILY DISHA Administration Isosorbide Mononitrate 60 mg 04/19/21 06:00 04/22/21 06:22 Isosorbide Mononitrate 60 Mg Tablet PO 60 mg DAILY DISHA Administration Lisinopril 40 mg 04/19/21 06:00 04/22/21 06:23 Lisinopril 40 Mg Tablet PO 40 mg DAILY DISHA Administration Nitroglycerin 0.4 mg 04/18/21 20:40 Nitroglycerin (Inpatient Use) 0.4 Mg Tab.Subl SL Q5M PRN CARDIAC/CHEST PAIN Nutritional Formula (Lactose Free) 120 ml 04/19/21 06:00 04/22/21 06:28 Glucerna Shake 120 Ml Liquid PO 120 ml 4X/DAY DISHA Administration Oxycodone HCl 5 mg 04/18/21 20:31 04/22/21 09:20 Oxycodone 5 Mg Tablet PO 5 mg Q4H PRN PRN Administration Pain Score 6-10 Pantoprazole Sodium 40 mg 04/19/21 06:00 04/22/21 06:23 Pantoprazole Sodium 40 Mg Tablet PO 40 mg DAILY DISHA Administration Polyethylene Glycol 17 gm 04/19/21 06:00 04/22/21 06:24 Polyethylene Glycol 3350 17 Gm Packet PO Not Given DAILY DISHA Polysaccharide Iron Complex 150 mg 04/19/21 08:00 04/22/21 09:15 Iron Polysaccharide Complex 150 Mg Capsule PO 150 mg DAILYCM DISHA Administration Senna/Docusate Sodium 2 tablet 04/19/21 06:00 04/22/21 06:24 Senna/Docusate Sodium 1 Tablet PO Not Given BID DISHA Sertraline HCl 100 mg 04/19/21 06:00 04/22/21 06:23 Sertraline 100 Mg Tablet PO 100 mg DAILY DISHA Administration Sodium Chloride 10 - 40 ml 04/19/21 00:57 04/19/21 11:31 0.9% Saline Lock 10 Ml Syringe IV 10 ml UD PRN Administration SALINE FLUSH Sucralfate 1 gm 04/18/21 22:00 04/22/21 06:23 Sucralfate 1 Gm Tablet PO 1 gm 1HR_ACHS DISHA Administration Tuberculin PPD 0.1 ml 04/27/21 10:00 Tuberculin,Purif.Prot.Deriv. 50 Tu/Ml Vial ID 04/27/21 10:01 X1 ONE Problem List (Last Reviewed 04/18/21 @ 21:[address] Riley Roca MD) Coronary artery disease (Acute) Gastroesophageal reflux disease (Acute) Hyperlipidemia (Acute) Depression (Acute) Diabetes mellitus (Acute) Lumbar spinal stenosis (Acute) Debility (Acute) T12 compression fracture (Acute) Vital Signs Temp Pulse Resp BP Pulse Ox 96.2 F L 54 L 16 101/31 L 97 04/22/21 06:20 04/22/21 06:20 04/22/21 06:20 04/22/21 06:20 04/22/21 06:55 Oxygen Flow Rate (L/min) 1 Oxygen Delivery Method Nasal Cannula Weight: 72.6 kg Body Mass Index (BMI) 31.2 Sodium 135 mmol/L (136-145) L 04/19/21 05:10 Potassium 3.7 mmol/L (3.5-5.1) 04/19/21 05:10 Chloride 97 mmol/L (98-107) L 04/19/21 05:10 Carbon Dioxide 30.0 mmol/L (21.0-32.0) 04/19/21 05:10 Anion Gap 8 (5-15) 04/19/21 05:10 BUN 42 mg/dL (7-18) H 04/19/21 05:10 Creatinine 1.21 mg/dL (0.55-1.02) H 04/19/21 05:10 Est GFR (MDRD) Af Amer 55 mL/min (>60) L 04/19/21 05:10 Est GFR (MDRD) Non-Af 45 mL/min (>60) L 04/19/21 05:10 BUN/Creatinine Ratio 34.7 RATIO (10-20) H 04/19/21 05:10 Glucose 138 mg/dL (74-106) H 04/19/21 05:10 Assessment/Plan: 1. Pain: acetaminophen 1000mg PO Q6H PRN pain 1-5 and oxycodone 5mg PO Q4H PRN pain 6-10. Please continue to monitor for increased pain, PRN usage, constipation and respiratory depression. 2. CAD/hypertension: atenolol 50mg PO daily, lisinopril 40mg PO daily, amlodipine 5mg PO daily, isosorbide mononitrate 60mg PO daily, aspirin 81mg PO DAILYCM, and nitroglycerin 0.4mg SL Q5M PRN chest pain. Please continue to monitor HR (last 54), BP (last 101/31), potassium (last 3.7mmol/L), chest pain, S/S of bleeding and renal function. 3. Diabetes mellitus II: insulin glargine 60units SC daily. Please continue to monitor for S/S hypoglycemia, hemoglobin A1c (last 6.7%) and blood glucose (last 89mg/dL). 4. Shortness of breath: albuterol inhaler 2puffs BID. Please continue to monitor for shortness of breath and HR. 5. Edema: furosemide 40mg PO daily. Please continue to monitor for edema and potassium. 6. Hyperlipidemia: atorvastatin 20mg PO QHS. Please continue to monitor lipid panel (last 05/2020) and for muscle pain. 7. GERD: pantoprazole 40mg PO daily and sucralfate 1gm PO 4x/day. Please continue to monitor for S/S of GERD and diarrhea. 8. Iron deficiency (hemoglobin 10.4gdL): Ferrex 150mg PO daily. Please continue to monitor hemoglobin, dark stools and constipation. Psychotropic Medications: 1. Depression: sertraline 100mg PO daily. Please see physician note regarding GDR. Unnecessary Medications: None *Bowel Regimen: Miralax 17gm PO daily, senna/docusate 2T PO BID and bisacodyl 10mg PO daily PRN constipation. Please consider changing Miralax to PRN constipation. Patient has refused 3/4 doses. Thanks. Please continue to monitor for constipation and PRN usage. Date of Note:: 04/22/21
[2021-04-22 10:41] LABS: Bedside Glucose 200 mg/dL (70-110)
[2021-04-22 14:19] VITALS: BP 112/46; PULSE 58; RESP 17; TEMP 37.1; O2SAT 94
[2021-04-22 17:11] LABS: Bedside Glucose 105 mg/dL (70-110)
[2021-04-22 21:55] LABS: Bedside Glucose 128 mg/dL (70-110)
[2021-04-22] MEDS: Atorvastatin Calcium 20 MG Tablet PO (21:56)
[2021-04-23 06:00] VITALS: BP 158/71; PULSE 69; RESP 16; TEMP 36.9; O2SAT 95
[2021-04-23 06:25] LABS: Bedside Glucose 114 mg/dL (70-110)
[2021-04-23] MEDS: Lisinopril 40 MG Tablet PO (06:39)
[2021-04-23] MEDS: Sertraline 100 MG Tablet PO (06:39)
[2021-04-23] MEDS: Atenolol 50 MG Tablet PO (06:40)
[2021-04-23] MEDS: Isosorbide Mononitrate 60 MG Tablet PO (06:40)
[2021-04-23] MEDS: amLODIPine 5 MG Tablet PO (06:40)
[2021-04-23] MEDS: Pantoprazole Sodium 40 MG Tablet PO (06:40)
[2021-04-23] MEDS: Sucralfate 1 GM Tablet PO ×4 (06:40→20:40)
[2021-04-23] MEDS: Furosemide 40 MG Tablet PO ×2 (06:40→18:29)
[2021-04-23] MEDS: Senna/Docusate Sodium 1 Tablet 2 TABLET PO (06:40)
[2021-04-23] MEDS: Menthol/Lanolin/Calamine/Znox 113 GM Tube 1 APPLIC TOPICAL ×2 (06:41→18:30)
[2021-04-23] MEDS: Aspirin E.C. 81 MG Tablet PO (08:34)
[2021-04-23] MEDS: Iron Polysaccharide Complex 150 MG CAPSULE PO (08:34)
[2021-04-23 10:52] VITALS: PULSE 58; O2SAT 97
[2021-04-23 11:01] LABS: Bedside Glucose 179 mg/dL (70-110)
[2021-04-23 14:23] VITALS: BP 104/56; PULSE 53; RESP 17; TEMP 35.9; O2SAT 98
--- NOTE | 2021-04-23 16:43 | NURSING ---
Addendum entered by Nat Fowler 04/23/21 17:24: Rechecked Blood Sugar 77 encouraged pt to eat her dinner and drink the orange Juice still having no symptoms of low blood sugar at this time will recheck. Original Note: Pt's Blood Sugar 73 no symptoms of low blood sugar noted pt given orange juice and crackers will recheck.
[2021-04-23 16:51] LABS: Bedside Glucose 73 mg/dL (70-110)
--- NOTE | 2021-04-23 16:57 | CHAPLAIN ---
Type of Pastoral Visit _x__ Initial Visit ___ Follow-up Visit ___ On-call Visit ___ General Patient Visit ___ Spiritual Assessment ___ Family Conference ___ Bereavement ___ Rapid Response ___ Code Blue ___ Other (describe below) Pastoral Care Referral From _x__ Patient ___ Family ___ Nurse ___ Physician ___ Allergist/Md ___ Firestopper Technician ___ Other (describe below) Sacrament/Intervention _x__ Active listening ___ Anointing ___ Pentecostalism ___ Bereavement ___ Communion ___ Maria C exploration ___ ___ Life review _x__ Prayer ___ Reconciliation ___ Sacrament of Sick _x__ Supportive presence ___ Wedding ___ Other (describe below) Pastoral Comments
[2021-04-23 17:20] LABS: Bedside Glucose 77 mg/dL (70-110)
[2021-04-23 18:40] LABS: Bedside Glucose 100 mg/dL (70-110)
[2021-04-23] MEDS: Glucerna Shake 120 ML LIQUID PO (20:39)
[2021-04-23] MEDS: Atorvastatin Calcium 20 MG Tablet PO (20:41)
[2021-04-23] MEDS: oxyCODONE 5 MG Tablet PO (20:57)
[2021-04-23 21:16] LABS: Bedside Glucose 132 mg/dL (70-110)
[2021-04-24 05:42] VITALS: BP 133/56; PULSE 54; RESP 16; TEMP 36.9; O2SAT 96
[2021-04-24] MEDS: amLODIPine 5 MG Tablet PO (05:45)
[2021-04-24] MEDS: Isosorbide Mononitrate 60 MG Tablet PO (05:45)
[2021-04-24] MEDS: Menthol/Lanolin/Calamine/Znox 113 GM Tube 1 APPLIC TOPICAL ×2 (05:45→16:55)
[2021-04-24] MEDS: Furosemide 40 MG Tablet PO ×2 (05:45→16:55)
[2021-04-24] MEDS: Pantoprazole Sodium 40 MG Tablet PO (05:46)
[2021-04-24] MEDS: Lisinopril 40 MG Tablet PO (05:46)
[2021-04-24] MEDS: Atenolol 50 MG Tablet PO (05:46)
[2021-04-24] MEDS: Sertraline 100 MG Tablet PO (05:46)
[2021-04-24] MEDS: Sucralfate 1 GM Tablet PO ×4 (05:46→21:58)
[2021-04-24 06:31] LABS: Bedside Glucose 106 mg/dL (70-110)
--- NOTE | 2021-04-24 06:45 | NURSING ---
Blood sugar only 106 this am, pt hesitant to take all 60units of Lantus at this time, will update dayshift to give with breakfast.
[2021-04-24 06:56] VITALS: O2SAT 95
--- NOTE | 2021-04-24 07:37 | NURSING ---
Pt Blood Sugar 106 pt to receive [address] Roca updated new order for 50 units of Lantus and hold till after breakfast to assess intake.
[2021-04-24] MEDS: Acetaminophen 500 MG Tablet 1000 MG PO (08:36)
[2021-04-24] MEDS: Aspirin E.C. 81 MG Tablet PO (08:37)
[2021-04-24] MEDS: Iron Polysaccharide Complex 150 MG CAPSULE PO (08:37)
--- NOTE | 2021-04-24 09:00 | CASEMGMT ---
Social Work Plan of care meeting held. Patient present. Patient daughter present via speaker phone. Patient with next insurance update due on 05/01/2021. Patient plans to discharge to home alone at time of discharge with patient daughter to check in. No discharge date set at this time. Patient to continue with further care and treatment on the Transitional Care Unit. Will continue to follow. Parker MANCERA, ASHLEY-S
--- NOTE | 2021-04-24 09:37 | CASEMGMT ---
Social Work Brief interview for mental status (BIMS) and resident mood assessment (PHQ-9) completed on this day. Parker MANCERA, JYOTIS
[2021-04-24 10:55] LABS: Bedside Glucose 156 mg/dL (70-110)
[2021-04-24 15:32] VITALS: BP 103/60; PULSE 54; RESP 16; TEMP 36.7; O2SAT 95
[2021-04-24] MEDS: Glucerna Shake 120 ML LIQUID PO (16:55)
[2021-04-24 16:56] LABS: Bedside Glucose 195 mg/dL (70-110)
[2021-04-24 21:20] LABS: Bedside Glucose 152 mg/dL (70-110)
[2021-04-24] MEDS: Atorvastatin Calcium 20 MG Tablet PO (21:58)
[2021-04-24 22:00] VITALS: O2SAT 94
[2021-04-25 06:33] VITALS: BP 136/45; PULSE 58; RESP 16; TEMP 36.8; O2SAT 96
[2021-04-25] MEDS: amLODIPine 5 MG Tablet PO (06:36)
[2021-04-25] MEDS: Sertraline 100 MG Tablet PO (06:36)
[2021-04-25] MEDS: Pantoprazole Sodium 40 MG Tablet PO (06:36)
[2021-04-25] MEDS: Furosemide 40 MG Tablet PO ×2 (06:36→17:45)
[2021-04-25] MEDS: Lisinopril 40 MG Tablet PO (06:36)
[2021-04-25] MEDS: Atenolol 50 MG Tablet PO (06:36)
[2021-04-25] MEDS: Sucralfate 1 GM Tablet PO ×4 (06:36→21:28)
[2021-04-25] MEDS: Isosorbide Mononitrate 60 MG Tablet PO (06:37)
[2021-04-25] MEDS: Senna/Docusate Sodium 1 Tablet 2 TABLET PO (06:37)
[2021-04-25] MEDS: oxyCODONE 5 MG Tablet PO ×2 (06:40→21:32)
[2021-04-25 06:41] LABS: Bedside Glucose 141 mg/dL (70-110)
[2021-04-25] MEDS: Menthol/Lanolin/Calamine/Znox 113 GM Tube 1 APPLIC TOPICAL ×2 (06:44→17:47)
[2021-04-25 08:00] VITALS: O2SAT 95
[2021-04-25] MEDS: Iron Polysaccharide Complex 150 MG CAPSULE PO (08:08)
[2021-04-25] MEDS: Glucerna Shake 120 ML LIQUID PO ×3 (08:09→17:44)
[2021-04-25] MEDS: Aspirin E.C. 81 MG Tablet PO (08:09)
[2021-04-25 10:00] VITALS: PULSE 55; RESP 16; O2SAT 98
[2021-04-25 10:51] LABS: Bedside Glucose 281 mg/dL (70-110)
[2021-04-25 13:39] VITALS: BP 124/60; PULSE 69; RESP 16; TEMP 36.4; O2SAT 96
[2021-04-25 16:25] LABS: Bedside Glucose 148 mg/dL (70-110)
[2021-04-25 21:25] LABS: Bedside Glucose 154 mg/dL (70-110)
[2021-04-25] MEDS: Atorvastatin Calcium 20 MG Tablet PO (21:28)
[2021-04-26] MEDS: Menthol/Lanolin/Calamine/Znox 113 GM Tube 1 APPLIC TOPICAL ×2 (04:41→17:18)
[2021-04-26] MEDS: Furosemide 40 MG Tablet PO ×2 (04:42→17:18)
[2021-04-26] MEDS: Polyethylene Glycol 3350 17 GM PACKET PO (04:42)
[2021-04-26] MEDS: Isosorbide Mononitrate 60 MG Tablet PO (04:42)
[2021-04-26] MEDS: amLODIPine 5 MG Tablet PO (04:43)
[2021-04-26] MEDS: Pantoprazole Sodium 40 MG Tablet PO (04:43)
[2021-04-26 04:44] VITALS: BP 129/63; PULSE 53; RESP 14; TEMP 36.8; O2SAT 94
[2021-04-26] MEDS: Atenolol 50 MG Tablet PO (04:44)
[2021-04-26] MEDS: Lisinopril 40 MG Tablet PO (04:45)
[2021-04-26] MEDS: Sertraline 100 MG Tablet PO (04:45)
[2021-04-26 05:32] LABS: Absolute Lymphocyte Count 2.04 X10^3/uL (0.83-4.51); Absolute Neutrophil Count 6.2 X10^3/uL (2.0-7.7); Basophil# 0.05 X10^3/uL; Basophil% 0.5 % (0-1); Eosinophil# 0.36 X10^3/uL; Eosinophils% 3.8 % (0-5); Hematocrit 31.5 % (37-47); Hemoglobin 9.6 g/dL (12.0-15.0); Lymphocyte # 2.04 X10^3/ul (0.83-4.51); Lymphocyte % 21.6 % (19-41); Mean Corp Hgb Conc 30.5 g/dL (32-36); Mean Corpuscular Volume 85.4 fL (81-99); Mean Platelet Vol. 11.6 fl (6.2-12.0); Monocyte# 0.76 X10^3/uL; Monocyte% 8.1 % (0-10); NRBC Flagged by Analyzer 0 % (0-5); Neutrophil # 6.16 X10^3/uL (2.7-7.7); Neutrophil % 65.3 % (47-70); Platelet Count 257 K/mm3 (150-450); RBC Distribution Width CV 16.3 % (11.6-14.6); RBC Distribution Width SD 51.3 fl (35.1-43.9); Red Blood Count 3.69 M/mm3 (4.2-5.4); White Blood Count 9.4 K/mm3 (4.4-11.0)
[2021-04-26 05:45] LABS: Anion Gap 9 (5-15); BUN 50 mg/dL (7-18); BUN/Creat Ratio 43.5 RATIO (10-20); Calcium,Total 9.2 mg/dL (8.5-10.1); Chloride 99 mmol/L (98-107); Creatinine, Serum 1.15 mg/dL (0.55-1.02); EST Glomerular Filtration Rate 48 mL/min (>60); Est Glom Filt Rate - Afr Amer 58 mL/min (>60); Estimated Creatinine Clearance 27.56 ml/min; Glucose 111 mg/dL (74-106); Potassium 3.3 mmol/L (3.5-5.1); Sodium Level 137 mmol/L (136-145)
[2021-04-26 06:25] LABS: Bedside Glucose 118 mg/dL (70-110)
[2021-04-26] MEDS: Sucralfate 1 GM Tablet PO ×4 (06:52→22:07)
[2021-04-26 07:16] VITALS: O2SAT 95
[2021-04-26] MEDS: Aspirin E.C. 81 MG Tablet PO (07:53)
[2021-04-26] MEDS: Iron Polysaccharide Complex 150 MG CAPSULE PO (07:53)
[2021-04-26] MEDS: Glucerna Shake 120 ML LIQUID PO ×3 (07:57→22:01)
[2021-04-26] MEDS: Potassium Chloride Oral Tablet 20 MEQ PO ×2 (08:12→17:18)
[2021-04-26 10:50] LABS: Bedside Glucose 203 mg/dL (70-110)
[2021-04-26] MEDS: oxyCODONE 5 MG Tablet PO (12:15)
[2021-04-26 16:00] VITALS: BP 113/40; PULSE 55; RESP 18; TEMP 35.8; O2SAT 98
[2021-04-26 16:41] LABS: Bedside Glucose 109 mg/dL (70-110)
[2021-04-26 21:26] LABS: Bedside Glucose 93 mg/dL (70-110)
[2021-04-26] MEDS: Atorvastatin Calcium 20 MG Tablet PO (22:08)
[2021-04-26] MEDS: Acetaminophen 500 MG Tablet 1000 MG PO (22:08)
--- NOTE | 2021-04-26 22:10 | NURSING ---
Glucerna given per dr order and vanilla pudding per pt request. HS blood sugar 93. Incontinent of lg amount of urine in depend. Purewock not working. Complete bed change done. Pericare completed per this nurse and applied calmoseptine to gluteal folds. Positioned in bed for comfort. Pt thought she was wet but was unsure.
[2021-04-27 05:39] VITALS: BP 145/50; PULSE 55; RESP 16; TEMP 35.8
[2021-04-27] MEDS: Isosorbide Mononitrate 60 MG Tablet PO (05:42)
[2021-04-27] MEDS: Sucralfate 1 GM Tablet PO ×4 (05:42→20:57)
[2021-04-27] MEDS: Furosemide 40 MG Tablet PO (05:42)
[2021-04-27] MEDS: Pantoprazole Sodium 40 MG Tablet PO (05:42)
[2021-04-27] MEDS: Sertraline 100 MG Tablet PO (05:42)
[2021-04-27] MEDS: amLODIPine 5 MG Tablet PO (05:43)
[2021-04-27] MEDS: Lisinopril 40 MG Tablet PO (05:43)
[2021-04-27] MEDS: Menthol/Lanolin/Calamine/Znox 113 GM Tube 1 APPLIC TOPICAL ×2 (05:43→16:57)
[2021-04-27 06:31] LABS: Bedside Glucose 113 mg/dL (70-110)
[2021-04-27] MEDS: Aspirin E.C. 81 MG Tablet PO (08:51)
[2021-04-27] MEDS: Potassium Chloride Oral Tablet 20 MEQ PO ×2 (08:51→16:57)
[2021-04-27] MEDS: Iron Polysaccharide Complex 150 MG CAPSULE PO (08:52)
[2021-04-27] MEDS: Tuberculin,Purif.prot.deriv. 50 TU/ML Vial 0.1 ML ID (09:59)
[2021-04-27 10:53] VITALS: PULSE 54; RESP 16; O2SAT 99
[2021-04-27 11:06] LABS: Bedside Glucose 183 mg/dL (70-110)
[2021-04-27] MEDS: Glucerna Shake 120 ML LIQUID PO ×3 (11:48→20:55)
[2021-04-27 15:04] VITALS: BP 133/51; PULSE 60; RESP 17; TEMP 35.8; O2SAT 97
--- NOTE | 2021-04-27 15:09 | NURSING ---
dr burk notified of pt elevated BUN, no edema, lungs clear. new order to decrease lasix to daily and recheck BMP on thursday
[2021-04-27 16:06] LABS: Bedside Glucose 187 mg/dL (70-110)
[2021-04-27 17:05] LABS: Anion Gap 9 (5-15); BUN 43 mg/dL (7-18); BUN/Creat Ratio 40.2 RATIO (10-20); Calcium,Total 9.4 mg/dL (8.5-10.1); Chloride 101 mmol/L (98-107); Creatinine, Serum 1.07 mg/dL (0.55-1.02); EST Glomerular Filtration Rate 52 mL/min (>60); Est Glom Filt Rate - Afr Amer 63 mL/min (>60); Estimated Creatinine Clearance 29.62 ml/min; Glucose 143 mg/dL (74-106); Potassium 4.2 mmol/L (3.5-5.1); Sodium Level 137 mmol/L (136-145)
[2021-04-27] MEDS: Atorvastatin Calcium 20 MG Tablet PO (20:58)
[2021-04-27 21:25] LABS: Bedside Glucose 141 mg/dL (70-110)
[2021-04-28] MEDS: oxyCODONE 5 MG Tablet PO (00:58)
[2021-04-28 06:08] VITALS: BP 159/50; PULSE 60; RESP 16; TEMP 36.4; O2SAT 93
[2021-04-28] MEDS: Pantoprazole Sodium 40 MG Tablet PO (06:15)
[2021-04-28] MEDS: Sucralfate 1 GM Tablet PO ×4 (06:15→21:19)
[2021-04-28] MEDS: Atenolol 50 MG Tablet PO (06:15)
[2021-04-28] MEDS: Lisinopril 40 MG Tablet PO (06:15)
[2021-04-28] MEDS: Sertraline 100 MG Tablet PO (06:15)
[2021-04-28] MEDS: amLODIPine 5 MG Tablet PO (06:15)
[2021-04-28] MEDS: Furosemide 40 MG Tablet PO (06:16)
[2021-04-28] MEDS: Isosorbide Mononitrate 60 MG Tablet PO (06:16)
[2021-04-28] MEDS: Menthol/Lanolin/Calamine/Znox 113 GM Tube 1 APPLIC TOPICAL ×2 (06:20→16:46)
[2021-04-28 06:25] LABS: Bedside Glucose 89 mg/dL (70-110)
[2021-04-28] MEDS: Potassium Chloride Oral Tablet 20 MEQ PO ×2 (08:46→16:45)
[2021-04-28] MEDS: Aspirin E.C. 81 MG Tablet PO (08:46)
[2021-04-28] MEDS: Iron Polysaccharide Complex 150 MG CAPSULE PO (08:46)
[2021-04-28] MEDS: Glucerna Shake 120 ML LIQUID PO ×3 (08:51→16:49)
[2021-04-28 11:05] LABS: Bedside Glucose 150 mg/dL (70-110)
[2021-04-28 11:28] VITALS: PULSE 54; RESP 16; O2SAT 99
[2021-04-28 14:49] VITALS: BP 157/89; PULSE 56; RESP 20; TEMP 36.4; O2SAT 99
[2021-04-28 17:00] LABS: Bedside Glucose 164 mg/dL (70-110)
[2021-04-28] MEDS: Atorvastatin Calcium 20 MG Tablet PO (21:19)
[2021-04-28 21:45] LABS: Bedside Glucose 133 mg/dL (70-110)
[2021-04-29 05:55] VITALS: BP 117/73; PULSE 60; RESP 16; TEMP 36.6; O2SAT 95
[2021-04-29] MEDS: Furosemide 40 MG Tablet PO (05:57)
[2021-04-29] MEDS: Lisinopril 40 MG Tablet PO (05:57)
[2021-04-29] MEDS: Sucralfate 1 GM Tablet PO ×4 (05:57→22:08)
[2021-04-29] MEDS: Pantoprazole Sodium 40 MG Tablet PO (05:57)
[2021-04-29] MEDS: amLODIPine 5 MG Tablet PO (05:57)
[2021-04-29] MEDS: Isosorbide Mononitrate 60 MG Tablet PO (05:57)
[2021-04-29] MEDS: Atenolol 50 MG Tablet PO (05:57)
[2021-04-29] MEDS: Sertraline 100 MG Tablet PO (05:57)
[2021-04-29] MEDS: Menthol/Lanolin/Calamine/Znox 113 GM Tube 1 APPLIC TOPICAL ×2 (05:59→17:30)
[2021-04-29 06:16] LABS: Bedside Glucose 79 mg/dL (70-110)
[2021-04-29 06:30] LABS: Anion Gap 7 (5-15); BUN 28 mg/dL (7-18); BUN/Creat Ratio 36.7 RATIO (10-20); Calcium,Total 9.4 mg/dL (8.5-10.1); Chloride 107 mmol/L (98-107); Creatinine, Serum 0.76 mg/dL (0.55-1.02); EST Glomerular Filtration Rate 77 mL/min (>60); Est Glom Filt Rate - Afr Amer 93 mL/min (>60); Estimated Creatinine Clearance 31.69 ml/min; Glucose 76 mg/dL (74-106); Potassium 4.4 mmol/L (3.5-5.1); Sodium Level 141 mmol/L (136-145)
[2021-04-29] MEDS: Glucerna Shake 120 ML LIQUID PO ×3 (08:06→17:29)
[2021-04-29] MEDS: Potassium Chloride Oral Tablet 20 MEQ PO ×2 (08:06→17:30)
[2021-04-29] MEDS: Iron Polysaccharide Complex 150 MG CAPSULE PO (08:06)
[2021-04-29] MEDS: Aspirin E.C. 81 MG Tablet PO (08:07)
[2021-04-29 10:00] VITALS: PULSE 59; RESP 18; O2SAT 97
[2021-04-29 10:51] LABS: Bedside Glucose 106 mg/dL (70-110)
[2021-04-29] MEDS: Acetaminophen 500 MG Tablet 1000 MG PO (13:06)
[2021-04-29 13:57] VITALS: BP 129/40; PULSE 61; RESP 16; TEMP 35.9; O2SAT 92
[2021-04-29 16:36] LABS: Bedside Glucose 66 mg/dL (70-110)
[2021-04-29 16:51] LABS: Bedside Glucose 76 mg/dL (70-110)
[2021-04-29 17:25] LABS: Bedside Glucose 110 mg/dL (70-110)
[2021-04-29 21:25] LABS: Bedside Glucose 123 mg/dL (70-110)
[2021-04-29] MEDS: Atorvastatin Calcium 20 MG Tablet PO (22:08)
[2021-04-30 05:00] VITALS: BP 127/31; PULSE 56; RESP 18; TEMP 36.6; O2SAT 96
[2021-04-30] MEDS: Pantoprazole Sodium 40 MG Tablet PO (05:40)
[2021-04-30] MEDS: Sertraline 100 MG Tablet PO (05:40)
[2021-04-30] MEDS: Menthol/Lanolin/Calamine/Znox 113 GM Tube 1 APPLIC TOPICAL ×2 (05:40→16:42)
[2021-04-30] MEDS: Lisinopril 20 MG Tablet PO (05:40)
[2021-04-30] MEDS: Atenolol 50 MG Tablet PO (05:40)
[2021-04-30] MEDS: Isosorbide Mononitrate 60 MG Tablet PO (05:41)
[2021-04-30] MEDS: Sucralfate 1 GM Tablet PO ×4 (05:41→21:25)
[2021-04-30] MEDS: Furosemide 40 MG Tablet PO (05:41)
[2021-04-30 06:26] LABS: Bedside Glucose 85 mg/dL (70-110)
[2021-04-30] MEDS: Potassium Chloride Oral Tablet 20 MEQ PO ×2 (08:00→16:41)
[2021-04-30] MEDS: Iron Polysaccharide Complex 150 MG CAPSULE PO (08:00)
[2021-04-30] MEDS: Glucerna Shake 120 ML LIQUID PO ×4 (08:00→21:29)
[2021-04-30] MEDS: Aspirin E.C. 81 MG Tablet PO (08:01)
--- NOTE | 2021-04-30 08:36 | MDS.RN ---
Information for the mds was obtained from review of the clinical record, interview of resident, staff, and direct observation of resident's care.
[2021-04-30] MEDS: Acetaminophen 500 MG Tablet 1000 MG PO (09:59)
[2021-04-30 10:51] LABS: Bedside Glucose 157 mg/dL (70-110)
[2021-04-30 13:47] VITALS: BP 114/52; PULSE 68; RESP 18; TEMP 36.2; O2SAT 96
[2021-04-30 16:11] LABS: Bedside Glucose 107 mg/dL (70-110)
[2021-04-30 21:21] LABS: Bedside Glucose 138 mg/dL (70-110)
[2021-04-30] MEDS: Atorvastatin Calcium 20 MG Tablet PO (21:24)
[2021-05-01 05:28] VITALS: BP 146/58; PULSE 57; RESP 16; TEMP 36.6; O2SAT 95
[2021-05-01] MEDS: Sertraline 100 MG Tablet PO (06:07)
[2021-05-01] MEDS: Furosemide 40 MG Tablet PO (06:07)
[2021-05-01] MEDS: Sucralfate 1 GM Tablet PO ×4 (06:08→21:20)
[2021-05-01] MEDS: Atenolol 50 MG Tablet PO (06:08)
[2021-05-01] MEDS: Lisinopril 20 MG Tablet PO (06:08)
[2021-05-01] MEDS: Isosorbide Mononitrate 60 MG Tablet PO (06:08)
[2021-05-01] MEDS: Pantoprazole Sodium 40 MG Tablet PO (06:08)
[2021-05-01] MEDS: Menthol/Lanolin/Calamine/Znox 113 GM Tube 1 APPLIC TOPICAL ×2 (06:10→17:22)
--- NOTE | 2021-05-01 06:23 | NURSING ---
Addendum entered by Nighat Mosqueda 05/01/21 06:44: Patient blood glucose is now 75 mg\dL. Patient asymptomatic at this time. Original Note: Patient blood glucose 63 mg/dL. [place] Juice given per patient request. Will recheck patient in 15 minutes.
[2021-05-01 06:25] LABS: Bedside Glucose 63 mg/dL (70-110)
[2021-05-01 06:46] LABS: Bedside Glucose 75 mg/dL (70-110)
--- NOTE | 2021-05-01 06:58 | NURSING ---
Moderate amount of loose, dark brown stool. Grainy texture. Calmoseptine applied to buttocks. Transfers to w/c, locked. Call light w/ in reach.
[2021-05-01] MEDS: Potassium Chloride Oral Tablet 20 MEQ PO ×2 (07:52→17:20)
[2021-05-01] MEDS: Aspirin E.C. 81 MG Tablet PO (07:52)
[2021-05-01] MEDS: Iron Polysaccharide Complex 150 MG CAPSULE PO (07:52)
[2021-05-01] MEDS: Glucerna Shake 120 ML LIQUID PO ×3 (07:57→17:20)
[2021-05-01 11:06] LABS: Bedside Glucose 111 mg/dL (70-110)
--- NOTE | 2021-05-01 12:47 | CASEMGMT ---
Social Work Met with patient in room. Patient request for discharge date to be set for 05/03/2021. Collaborating with team, team agreeable to discharge date. This long term care social worker communicating that physical, occupational and speech therapy are recommending for patient to have continued services through home health care. Patient is agreeable to recommendation for patient to continue with services through home health care. Patient provided with list of home health companies local to patient geographical region. Patient request for home health care to be set up through [facility]. Patient reports to have needed DME, including a walker already set up in the home. Patient requests for this long term care social worker to contact patient daughter, Ailyn in regards to discharge plan/date. Patient believes that patient daughter will provide transportation to home for patient at time of discharge. Telephone call to Ailyn, no answer. voicemail left. Telephone call to Uz[facility] Brown. [facility] is not in network with patient insurance. Patient second choice for home health care is [facility]. Proposed discharge date: 05/03/2021. Will continue to follow. Parker MANCERA, TEMO
--- NOTE | 2021-05-01 12:57 | CASEMGMT ---
Social Work Brief interview for mental status (BIMS) and resident mood assessment (PHQ-9) completed on this day. Parker MANCERA, JYOTIS
--- NOTE | 2021-05-01 13:22 | CASEMGMT ---
Social Work Telephone call to [facility] Patrica EASTON. At capacity and unable to accept patient. Will continue to follow up with patient on home health preference. Parker Rai MSW, TEMO
[2021-05-01 14:44] VITALS: BP 124/64; PULSE 55; RESP 17; TEMP 36.8; O2SAT 98
--- NOTE | 2021-05-01 15:50 | CASEMGMT ---
Social Work Met with patient in room. Updated patient on home health status. Patient request for home health care to be set up through [facility]. Telephone call to Beth. Leonarda Russ to call this director of social services back in regards to being able to accept patient insurance. Proposed discharge date: 05/03/2021 Will continue to follow. Parker MANCERA, JYOTIS
--- NOTE | 2021-05-01 16:04 | CASEMGMT ---
Social Work Telephone call from [facility]. [facility] is able to accept patient. Patient updated on above information. Proposed discharge date: 05/03/2021. Parker MANCERA, TEMO
[2021-05-01 16:21] LABS: Bedside Glucose 149 mg/dL (70-110)
--- NOTE | 2021-05-01 20:27 | PCM.DC.SUM ---
Providers Date of Admission: 04/18/21 Primary Care Physician: Dr. Riley Roca MD Reason For Visit: FALL, BACK PAIN, COMPRESSION FRACTURE Diagnosis Discharge Diagnosis (1) Debility: Status: Acute Code(s): R53.81 - Other malaise (2) T12 compression fracture: Status: Acute Code(s): S22.080A - Wedge compression fracture of T11-T12 vertebra, initial encounter for closed fracture Qualifiers: Encounter type: initial encounter Qualified Code(s): S22.080A - Wedge compression fracture of T11-T12 vertebra, initial encounter for closed fracture (3) Lumbar spinal stenosis: Status: Acute Code(s): M48.061 - Spinal stenosis, lumbar region without neurogenic claudication (4) Diabetes mellitus: Status: Acute Code(s): E11.9 - Type 2 diabetes mellitus without complications (5) Depression: Status: Acute Code(s): F32.9 - Major depressive disorder, single episode, unspecified (6) Hyperlipidemia: Status: Acute Code(s): E78.5 - Hyperlipidemia, unspecified (7) Gastroesophageal reflux disease: Status: Acute Code(s): K21.9 - Gastro-esophageal reflux disease without esophagitis (8) Coronary artery disease: Status: Acute Code(s): I25.10 - Atherosclerotic heart disease of [place] coronary artery without angina pectoris Medications at Discharge Home Medications sertraline 100 mg PO DAILY 02/26/19 albuterol sulfate 2 puff INHALATION BID 06/11/20 atenolol 50 mg PO DAILY 06/11/20 atorvastatin 20 mg PO DAILY 06/11/20 nitroglycerin 0.4 mg sublingual tablet 0.4 mg SUBLINGUAL Q5M PRN #25 tab 10/04/20 sucralfate 1 gm PO 4X/DAY #120 tab 11/01/20 isosorbide mononitrate 60 mg PO DAILY 04/12/21 pantoprazole 40 mg PO DAILY 04/12/21 acetaminophen 1,000 mg PO Q6H PRN PRN #0 tab 05/01/21 aspirin 81 mg PO DAILY@0800 #0 tab 05/01/21 furosemide 40 mg PO DAILY #0 tab 05/01/21 insulin glargine [Lantus Solostar U-100 Insulin] 40 unit SUBCUT DAILY #0 ml 05/01/21 lisinopril 20 mg PO DAILY 30 Days #30 tab 05/01/21 nitroglycerin 0.4 mg SUBLINGUAL Q5M PRN #0 tab 05/01/21 polysaccharide iron complex [Ferrex 150] 150 mg PO DAILYCM 30 Days #30 cap 05/01/21 potassium chloride [Klor-Con M20] 20 meq PO BIDCM 30 Days #60 tab 05/01/21 Hospital Course Operations None Procedures - (T12 kyphoplasty.) Summary of Care Provided Minutes Spent on Discharge: 35 Hospital Course: 81 year old female with below past medical history hospitalized for T12 compression fracture, underwent T12 kyphoplasty 04/17/[address] Hernandez, admitted to TCU with debility, here for rehabilitation, strengthening, prior to discharge home alone. Discharge home alone, [facility] PT/OT/ST. Physical Exam Const alert and oriented x3 General Appearance: cooperative HEENT normocephalic Eyes PERRL and EOMs intact bilaterally Neck supple, no JVD and no carotid bruits Resp normal respiratory effort, normal air movement and clear to auscultation bilaterally Cardio regular rate and regular rhythm GI normal to inspection, nondistended, normoactive bowel sounds, non-tender and non-distended Extremity normal capillary refill General Extremity: Negative for edema Skin no rashes or lesions noted General Skin Exam: no breakdown Psych affect normal Appearance: appropriate Weight / BMI Weight Weight: 69.717 kg Body Mass Index (BMI) 31.2 ABG / Lab / Microbiology Data Result Diagrams: 04/26/21 05:13 04/29/21 05:20 Laboratory: Laboratory Results - last 24 hr 04/30/21 21:14: POC Glucose 138 H 05/01/21 06:14: POC Glucose 63 L 05/01/21 06:42: POC Glucose 75 05/01/21 10:59: POC Glucose 111 H 05/01/21 16:12: POC Glucose 149 H D/C Instructions Discharge Diet: No restrictions Discharge Activity: Return to Normal Activity, May Shower and Use Walker Weight Bearing Status: Weight bearing as tolerated Call your doctor if you observe: Fever of 101 or Higher, Inability to urinate, Inability to have a bowel movement, Shortness of breath, Dizziness, Fainting spells, Swelling in the ankles, Chest pain, Increased palpitations (irregular heartbeat) and Uncontrolled pain Additional Instructions: Discharge home alone, [facility] PT/OT/ST. Please Follow Up With: Riley Roca Chi, MD When: 1 week. Meaningful Use Info Meaningful Use Diagnoses (Choose all that apply): None applicable Discharge Plan Admission Admit Date/Time: 04/18/21 19:40 Primary Reason for Your Visit: Debility Attending Provider: Riley Roca Chi Primary Care Provider: Riley Roca Chi Instructions Additional Instructions / Restrictions: Discharge home alone, [facility] PT/OT/ST. Discharge Orders/Prescriptions Prescriptions: New lisinopril 20 mg Tablet 20 mg PO DAILY 30 Days Qty: 30 RF: 0 aspirin 81 mg Tablet,Delayed Release (Dr/Ec) 81 mg PO DAILY@0800 Qty: 0 RF: 0 furosemide 40 mg Tablet 40 mg PO DAILY Qty: 0 RF: 0 acetaminophen 500 mg Tablet 1,000 mg PO Q6H PRN PRN (Reason: Pain Score 1-5) Qty: 0 RF: 0 Lantus Solostar U-100 Insulin 100 unit/mL (3 mL) Insulin Pen 40 unit subcut DAILY Qty: 0 RF: 0 polysaccharide iron complex [Ferrex 150] 150 mg iron Capsule 150 mg PO DAILYCM 30 Days Qty: 30 RF: 0 potassium chloride [Klor-Con M20] 20 mEq Tablet,Er Particles/Crystals 20 meq PO BIDCM 30 Days Qty: 60 RF: 0 nitroglycerin 0.4 mg Tablet, Sublingual 0.4 mg sublingual Q5M PRN (Reason: Cardiac/Chest Pain) Qty: 0 RF: 0 Continued sertraline 100 MG tablet 100 mg PO DAILY RF: 0 albuterol sulfate 90 mcg/actuation HFA aerosol inhaler 2 puff INHALATION BID RF: 0 atorvastatin 20 MG tablet 20 mg PO DAILY RF: 0 atenolol 50 MG tablet 50 mg PO DAILY RF: 0 sucralfate 1 GM tablet 1 gm PO 4X/DAY Qty: 120 RF: 1 pantoprazole 40 mg tablet,delayed release (DR/EC) 40 mg PO DAILY RF: 0 isosorbide mononitrate 60 mg tablet extended release 24 hr 60 mg PO DAILY RF: 0 nitroglycerin 0.4 mg tablet, sublingual 0.4 mg SUBLINGUAL Q5M PRN (Reason: Chest Pain) Qty: 25 RF: 3 Discontinued amlodipine 5 mg tablet 5 mg PO DAILY Qty: 90 RF: 4 insulin glargine U-300 conc 300 UNIT/ML insulin pen 80 unit SQ DAILY RF: 0 aspirin 81 MG tablet 162 mg PO DAILY@0800 RF: 0 furosemide 40 MG tablet 40 mg PO BID RF: 0 lisinopril 40 MG tablet 40 mg PO DAILY RF: 0 oxycodone 5 mg tablet 5 mg PO Q4H PRN (Reason: pain) 3 Days Qty: 18 RF: 0 Referrals / Follow Up: Riley Roca Chi, MD [Primary Care Provider] - In 1 Week Disposition Disposition (needs filled in before D/C Order can be placed): Home, Self Care
[2021-05-01 21:00] VITALS: PULSE 57; O2SAT 98
[2021-05-01] MEDS: Atorvastatin Calcium 20 MG Tablet PO (21:23)
[2021-05-01 21:25] LABS: Bedside Glucose 125 mg/dL (70-110)
[2021-05-02 05:00] VITALS: BP 146/54; PULSE 60; RESP 18; O2SAT 93
[2021-05-02] MEDS: Sucralfate 1 GM Tablet PO ×4 (05:52→20:18)
[2021-05-02] MEDS: Atenolol 50 MG Tablet PO (05:52)
[2021-05-02] MEDS: Isosorbide Mononitrate 60 MG Tablet PO (05:52)
[2021-05-02] MEDS: Furosemide 40 MG Tablet PO (05:52)
[2021-05-02] MEDS: Sertraline 100 MG Tablet PO (05:52)
[2021-05-02] MEDS: Menthol/Lanolin/Calamine/Znox 113 GM Tube 1 APPLIC TOPICAL ×2 (05:52→16:54)
[2021-05-02] MEDS: Lisinopril 20 MG Tablet PO (05:52)
[2021-05-02] MEDS: Pantoprazole Sodium 40 MG Tablet PO (05:52)
[2021-05-02 06:16] LABS: Bedside Glucose 83 mg/dL (70-110)
--- NOTE | 2021-05-02 07:46 | CASEMGMT ---
Social Work Discharge instructions faxed to [facility]. Proposed discharge date: 05/03/2021. Parker MANCERA, JYOTIS
[2021-05-02] MEDS: Aspirin E.C. 81 MG Tablet PO (08:21)
[2021-05-02] MEDS: Iron Polysaccharide Complex 150 MG CAPSULE PO (08:21)
[2021-05-02] MEDS: Potassium Chloride Oral Tablet 20 MEQ PO ×2 (08:21→16:55)
--- NOTE | 2021-05-02 10:21 | CASEMGMT ---
Social Work SW spoke with pt daughter and updated on discharge plan. Family agreeable and will provide transportation home. ANGELICA Yates
[2021-05-02 10:40] LABS: Bedside Glucose 123 mg/dL (70-110)
[2021-05-02 11:15] VITALS: PULSE 61; RESP 18; O2SAT 98
--- NOTE | 2021-05-02 13:22 | MDS.RN ---
Completed pain interview for EDGARD 05/03/21.
[2021-05-02 14:38] VITALS: BP 120/31; PULSE 60; RESP 17; TEMP 36.2; O2SAT 100
[2021-05-02 16:26] LABS: Bedside Glucose 111 mg/dL (70-110)
[2021-05-02 17:05] VITALS: BP 169/68; PULSE 59
--- NOTE | 2021-05-02 17:39 | RAD_ITS ---
STUDY: X-RAY - ABDOMEN/PELVIS REASON FOR EXAM: Female, 81 years old. Diarrhea. TECHNIQUE: Single AP view of the abdomen / pelvis. COMPARISON: 04/19/2021 FINDINGS: No change or definite acute abnormality. There is an unremarkable bowel gas pattern. There is no demonstrated free abdominal air. The visualized liver, spleen and kidneys are grossly normal in size and morphology. Normal soft tissue structures. There are diffuse degenerative changes of the visualized lumbar spine. Stable appearance of kyphoplasty at T12. RAD/Abdomen Single View IMPRESSION: No definite acute abnormality. Electronically Signed: Antwan Lopez MD at 22:49 EDT , Service support ,
[2021-05-02] MEDS: Atorvastatin Calcium 20 MG Tablet PO (20:18)
[2021-05-03 05:13] VITALS: BP 150/43; PULSE 62; RESP 14; TEMP 35.9; O2SAT 95
[2021-05-03] MEDS: Furosemide 40 MG Tablet PO (05:16)
[2021-05-03] MEDS: Atenolol 50 MG Tablet PO (05:17)
[2021-05-03] MEDS: Lisinopril 20 MG Tablet PO (05:17)
[2021-05-03] MEDS: Pantoprazole Sodium 40 MG Tablet PO (05:17)
[2021-05-03] MEDS: Sucralfate 1 GM Tablet PO ×2 (05:17→11:06)
[2021-05-03] MEDS: Sertraline 100 MG Tablet PO (05:17)
[2021-05-03] MEDS: Isosorbide Mononitrate 60 MG Tablet PO (05:17)
[2021-05-03] MEDS: Menthol/Lanolin/Calamine/Znox 113 GM Tube 1 APPLIC TOPICAL (05:21)
[2021-05-03 05:48] LABS: Absolute Lymphocyte Count 1.74 X10^3/uL (0.83-4.51); Absolute Neutrophil Count 7.3 X10^3/uL (2.0-7.7); Basophil# 0.05 X10^3/uL; Basophil% 0.5 % (0-1); Hemoglobin 9.8 g/dL (12.0-15.0); Lymphocyte # 1.74 X10^3/ul (0.83-4.51); Lymphocyte % 17.2 % (19-41); Mean Corp Hgb Conc 30.6 g/dL (32-36); Mean Corpuscular Hgb 26.4 pg (27.0-32.0); Mean Corpuscular Volume 86.3 fL (81-99); Mean Platelet Vol. 11.6 fl (6.2-12.0); Monocyte# 0.69 X10^3/uL; Monocyte% 6.8 % (0-10); NRBC Flagged by Analyzer 0 % (0-5); Neutrophil # 7.31 X10^3/uL (2.7-7.7); Platelet Count 281 K/mm3 (150-450); RBC Distribution Width CV 16.4 % (11.6-14.6); RBC Distribution Width SD 51.8 fl (35.1-43.9); Red Blood Count 3.71 M/mm3 (4.2-5.4); White Blood Count 10.1 K/mm3 (4.4-11.0)
[2021-05-03 06:09] LABS: Anion Gap 6 (5-15); BUN 20 mg/dL (7-18); BUN/Creat Ratio 27.2 RATIO (10-20); Calcium,Total 9.3 mg/dL (8.5-10.1); Chloride 109 mmol/L (98-107); Creatinine, Serum 0.74 mg/dL (0.55-1.02); EST Glomerular Filtration Rate 81 mL/min (>60); Est Glom Filt Rate - Afr Amer 98 mL/min (>60); Estimated Creatinine Clearance 31.69 ml/min; Glucose 90 mg/dL (74-106); Potassium 4.5 mmol/L (3.5-5.1); Sodium Level 140 mmol/L (136-145)
[2021-05-03 06:31] LABS: Bedside Glucose 102 mg/dL (70-110)
[2021-05-03] MEDS: Aspirin E.C. 81 MG Tablet PO (08:27)
[2021-05-03] MEDS: Potassium Chloride Oral Tablet 20 MEQ PO (08:27)
[2021-05-03] MEDS: Iron Polysaccharide Complex 150 MG CAPSULE PO (08:27)
[2021-05-03 09:09] VITALS: PULSE 52; RESP 18; O2SAT 99
[2021-05-03 11:10] LABS: Bedside Glucose 198 mg/dL (70-110)
[2021-05-03 11:13] VITALS: BP 123/51; PULSE 50; RESP 18; TEMP 36.7; O2SAT 99
== END 2021-05-03 12:03 | disposition home health service (06) | DRG 561 ==
PROVIDERS: Admitting Provider Family Medicine Geriatric Medicine; PCP Family Medicine Geriatric Medicine; Visit Provider Family Medicine Geriatric Medicine
DX: S22.080D Wedge compression fracture of T11-T12 vertebra, subsequent encounter for fracture with routine healing (principal); W19.XXXD Unspecified fall, subsequent encounter; M48.061 Spinal stenosis, lumbar region without neurogenic claudication; F32.9 Major depressive disorder, single episode, unspecified; I50.9 Heart failure, unspecified; I11.0 Hypertensive heart disease with heart failure; E78.5 Hyperlipidemia, unspecified; E11.51 Type 2 diabetes mellitus with diabetic peripheral angiopathy without gangrene; K21.9 Gastro-esophageal reflux disease without esophagitis; I25.10 Atherosclerotic heart disease of native coronary artery without angina pectoris; Z79.899 Other long term (current) drug therapy; Z79.4 Long term (current) use of insulin; Z79.82 Long term (current) use of aspirin
CPT/HCPCS: 36415; 74018; 80048; 82962; 85014; 85018; 85025; 92507; 92523; 92526; 92610; 97110; 97116; 97162; 97166; 97530; 97535; 97802; A4216

== ENCOUNTER → 2021-05-09 11:51 | Outpatient (CLI) | payer MEDICARE, SELFPAY ==
[2021-04-19 10:06] VITALS: BMI 31.2
[2021-05-09 17:24] LABS: Absolute Lymphocyte Count 1.71 X10^3/uL (0.83-4.51); Absolute Neutrophil Count 5.9 X10^3/uL (2.0-7.7); Basophil# 0.05 X10^3/uL; Basophil% 0.6 % (0-1); Eosinophil# 0.33 X10^3/uL; Eosinophils% 3.8 % (0-5); Hematocrit 30.8 % (37-47); Hemoglobin 9.3 g/dL (12.0-15.0); Lymphocyte # 1.71 X10^3/ul (0.83-4.51); Lymphocyte % 19.9 % (19-41); Mean Corp Hgb Conc 30.2 g/dL (32-36); Mean Corpuscular Hgb 26.5 pg (27.0-32.0); Mean Corpuscular Volume 87.7 fL (81-99); Mean Platelet Vol. 11.9 fl (6.2-12.0); Monocyte# 0.58 X10^3/uL; Monocyte% 6.7 % (0-10); NRBC Flagged by Analyzer 0 % (0-5); Neutrophil # 5.91 X10^3/uL (2.7-7.7); Neutrophil % 68.7 % (47-70); Platelet Count 243 K/mm3 (150-450); RBC Distribution Width CV 16.7 % (11.6-14.6); RBC Distribution Width SD 52.8 fl (35.1-43.9); Red Blood Count 3.51 M/mm3 (4.2-5.4); White Blood Count 8.6 K/mm3 (4.4-11.0)
[2021-05-09 18:25] LABS: AST(SGOT) 14 U/L (15-37); Alanine Aminotransfer ALT/SGPT 22 U/L (13-56); Albumin, Serum 3.3 g/dL (3.2-5.0); Alkaline Phosphatase 114 U/L (45-117); Anion Gap 8 (5-15); BUN 17 mg/dL (7-18); BUN/Creat Ratio 19.1 RATIO (10-20); Calcium,Total 8.7 mg/dL (8.5-10.1); Chloride 105 mmol/L (98-107); Creatinine, Serum 0.89 mg/dL (0.55-1.02); EST Glomerular Filtration Rate 65 mL/min (>60); Est Glom Filt Rate - Afr Amer 78 mL/min (>60); Globulin 3.3 g/dL (2.2-4.2); Glucose 143 mg/dL (74-106); Potassium 4.3 mmol/L (3.5-5.1); Protein, Total 6.6 g/dL (6.4-8.2); Sodium Level 137 mmol/L (136-145); Thyroid Stim Hormone (TSH) < 0.01 uIU/mL (0.358-3.74)
[2021-05-09 21:33] LABS: Vitamin D,25 Hydroxy 28.4 ng/mL
== END ==
PROVIDERS: PCP Family Medicine Geriatric Medicine; Visit Provider Family Medicine Geriatric Medicine
DX: E11.9 Type 2 diabetes mellitus without complications (principal); E55.9 Vitamin D deficiency, unspecified; I10 Essential (primary) hypertension
CPT/HCPCS: 36415; 80053; 82306; 84443; 85025

== ENCOUNTER 2021-06-11 20:41 | Inpatient (IN) | payer MEDICARE, SELFPAY ==
[2021-06-11 20:42] VITALS: TEMP 36.8; BMI 29.2
[2021-06-11 20:51] VITALS: BMI 30.5
[2021-06-11 20:52] VITALS: PULSE 61; RESP 18; O2SAT 100
[2021-06-11 20:56] VITALS: BP 110/58
[2021-06-11] MEDS: Morphine 4 MG/ML Syringe IV (21:48)
[2021-06-11] MEDS: Ondansetron 4 MG/2 ML Vial IV (21:48)
--- NOTE | 2021-06-11 22:06 | RAD_ITS ---
EXAM: XR LEFT FEMUR, 2 VIEWS : 1940 CLINICAL INDICATION: Injury/Pain TECHNIQUE: Frontal and lateral views of the left femur. This report was created using [employer] report generation technology. COMPARISON: None. FINDINGS: BONES/JOINTS: Comminuted intertrochanteric, impacted left hip fracture. Preservation of the joint space. No sclerotic or destructive changes observed. SOFT TISSUES: Unremarkable. No soft tissue swelling or gas. No radiopaque foreign body. VASCULATURE: Arterial calcifications. RAD/Femur Min 2 Views IMPRESSION: Comminuted intertrochanteric, impacted left hip fracture. at 2254 Reported and signed by: Raghav Gould MD Electronically Signed: Raghav Gould MD at 22:53 EDT Tel , Service support ,
--- NOTE | 2021-06-11 22:19 | EKG12_ITS ---
Test Reason : FALL Blood Pressure : / mmHG Vent. Rate : 076 BPM Atrial Rate : 076 BPM P-R Int : 160 ms QRS Dur : 148 ms QT Int : 460 ms P-R-T Axes : 036 -40 121 degrees QTc Int : 517 ms Normal sinus rhythm Left axis deviation Left bundle branch block Abnormal ECG Confirmed by JOSSY PEARSON, SADIE ([id number]), editor dictionary JENIFER WALLACE ([id number]) on 06/13/2021 10:07:20 AM Referred By: RAY Confirmed By:SADIE FENTON MD
--- NOTE | 2021-06-11 22:20 | RAD_ITS ---
EXAM: XR CHEST, 1 VIEW : 1940 CLINICAL INDICATION: FALL TECHNIQUE: Frontal view of the chest. This report was created using [employer] report generation technology. COMPARISON: 06/11/20 FINDINGS: LUNGS AND PLEURAL SPACES: Unremarkable. No consolidation or edema. No pneumothorax. No effusion. HEART: Mild enlargement of the cardiac silhouette. MEDIASTINUM: Central airways and mediastinal contour are unremarkable. BONES/JOINTS: Unremarkable. SOFT TISSUES: Unremarkable. RAD/Chest 1 View IMPRESSION: No acute findings in the chest. at 2256 Reported and signed by: Raghav Gould MD Electronically Signed: Raghav Gould MD at 22:55 EDT Tel , Service support ,
--- NOTE | 2021-06-11 22:20 | RAD_ITS ---
EXAM: XR PELVIS, 1 OR 2 VIEWS : 1940 CLINICAL INDICATION: FALL TECHNIQUE: Frontal view of the pelvis. This report was created using [employer] report generation technology. COMPARISON: None. FINDINGS: BONES/JOINTS: Comminuted, impacted intertrochanteric left hip fracture. No destructive or sclerotic lesions. Note that overlapping bowel shadows may however obscure fine detail. Sacroiliac joints are unremarkable. No widening of the pubic symphisis. SOFT TISSUES: Unremarkable. No soft tissue swelling or gas. VASCULATURE: Arterial calcifications. RAD/Pelvis 1 or 2 Views IMPRESSION: Comminuted, impacted intertrochanteric left hip fracture. at 2253 Reported and signed by: Raghav Gould MD Electronically Signed: Raghav Gould MD at 22:53 EDT Tel , Service support ,
--- NOTE | 2021-06-11 22:43 | EDS_ITS ---
HPI History of Present Illness Chief Complaint: Fall Informant: patient Onset/Context/Timing Onset: Hours Mechanism/Context: Blunt Injury and Fall Quality of Pain: Dull and Aching Current Severity: Mild Maximum Severity: Severe Worsened by: Any attempt to move her right lower extremity Relieved by: Position that patient was found Associated Symptoms Associated Symptoms: Positive for Loss of function and Inability to ambulate; Negative for Parasthesias, Weakness, Loss of consciousness and Amnesia Narrative Narrative: Patient is an elderly woman with history of hypertension, dyslipidemia, coronary disease 1 diabetes who presents with left hip/thigh pain after fall. She was unable to ambulate. Her hip is in approximately 90 degrees flexion. Her knee is in as well. Attempt to straighten the leg causes her significant discomfort. She denies head trauma. Denies headache. She is not on anticoagulant. Denies neck pain. Denies paresthesia, anesthesia motors. Denies cardiac respiratory symptoms. Denies black or maroon-colored stool. She denies urologic symptoms. [facility] Medical History (Updated 06/11/21 @ 23:[address] Ysabel Ruiz MD) Anxiety and depression CAD (coronary artery disease) Congestive heart failure (CHF) Gastroesophageal reflux disease History of hemorrhoids HLD (hyperlipidemia) HTN (hypertension) Non-smoker Type II diabetes mellitus Home Medications sertraline 100 mg PO DAILY 02/26/19 [History Last Taken 04/12/21] albuterol sulfate 2 puff INHALATION BID 06/11/20 [History Last Taken 04/11/21] atenolol 50 mg PO DAILY 06/11/20 [History Last Taken 04/12/21] atorvastatin 20 mg PO DAILY 06/11/20 [History Last Taken 04/12/21] nitroglycerin 0.4 mg sublingual tablet 0.4 mg SUBLINGUAL Q5M PRN #25 tab 10/04/20 [Rx Last Taken 04/10/21] sucralfate 1 gm PO 4X/DAY #120 tab 11/01/20 [Rx Last Taken 04/12/21] isosorbide mononitrate 60 mg PO DAILY 04/12/21 [History Last Taken 04/12/21] pantoprazole 40 mg PO DAILY 04/12/21 [History Last Taken 04/12/21] acetaminophen 1,000 mg PO Q6H PRN PRN #0 tab 05/01/21 [Rx Last Taken Unknown] aspirin 81 mg PO DAILY@0800 #0 tab 05/01/21 [Rx Last Taken Unknown] insulin glargine [Lantus Solostar U-100 Insulin] 40 unit SUBCUT DAILY #0 ml 05/01/21 [Rx Last Taken Unknown] lisinopril 20 mg PO DAILY 30 Days #30 tab 05/01/21 [Rx Last Taken Unknown] nitroglycerin 0.4 mg SUBLINGUAL Q5M PRN #0 tab 05/01/21 [Rx Last Taken Unknown] polysaccharide iron complex [Ferrex 150] 150 mg PO DAILYCM 30 Days #30 cap 05/01/21 [Rx Last Taken Unknown] potassium chloride [Klor-Con M20] 20 meq PO BIDCM 30 Days #60 tab 05/01/21 [Rx Last Taken Unknown] furosemide 40 mg tablet 40 mg PO DAILY #90 tab 05/30/21 [Rx Last Taken Unknown] Allergy/AdvReac Type Severity Reaction Status Date / Time latex Allergy Rash Verified 04/12/21 13:15 Family History Father CVA (cerebral vascular accident) Mother Heart disease CAD (coronary artery disease) Sister CAD (coronary artery disease) Daughter CAD (coronary artery disease) Myocardial infarction Daughter Diabetes Surgical History H/O: hysterectomy History of carpal tunnel release History of cholecystectomy History of coronary artery stent placement History of kyphoplasty Hx of cholecystectomy Hx of knee surgery Social History (Updated 06/11/21 @ 22:[address] Gage Mckeon MD) household members: none Smoking Status: Never smoker alcohol intake: never substance use type: does not use ROS ROS ED Constitutional Constitutional ED: Denies chills, fever(s) or subjective Eyes Eyes: Denies blurry vision or change in vision ENT ENT ED: Denies ear pain, rhinorrhea or sore throat Cardiovascular Cardiovascular: Denies chest pain, palpitations, paroxysmal nocturnal dyspnea or racing heartbeat Respiratory/Chest Respiratory/Chest: Denies cough, dyspnea, dyspnea on exertion, paroxysmal nocturnal dyspnea or sputum Gastrointestinal Gastrointestinal: Denies abdominal pain, diarrhea, nausea or vomiting Genitourinary Genitourinary ED: Denies dysuria, hematuria or urinary frequency Musculoskeletal Musculoskeletal: Reports other Details: Left thigh/hip pain ; Denies arthralgias, back pain, myalgias or neck pain Integumentary Reports rash Neurologic Neurologic: Denies headache(s) or weakness Endocrine Endocrinology: Denies polydipsia, polyphagia or polyuria Hematologic/Lymphatic Hematologic/Lymphatic: Denies easy bruising EXAM Physical Exam Const Vital Signs: 06/11/21 20:42 06/11/21 20:52 06/11/21 20:56 Temperature 98.3 F Temperature Source Temporal Pulse Rate 61 Respiratory Rate 18 Respiratory Effort Normal Blood Pressure 110/58 L Blood Pressure Mean 75 Pulse Ox 100 Oxygen Delivery Method Room Air Positive well nourished and well developed General Appearance ED: well developed and other HEENT Reports TM's clear HEENT Narrative: There is no deviation hematoma. There is no clinical finding of basal skull fracture. There is no evidence of head trauma. atraumatic Nose: septum abnormal Tympanic Membrane ED: Yes TM's clear Eyes PERRL and EOMs intact bilaterally General Eye ED: Yes other Other Details: There is no subconjunctival hemorrhage. Sclerae anicteric. Conjunctive is pink. Neck full ROM General: tenderness Chest Wall inspection of chest normal and palpation of chest normal Resp normal respiratory effort and clear to auscultation bilaterally Cardio regular rhythm, S1 normal heart sound, S2 normal heart sound and no murmurs Rate: regular rate GI normal to inspection, nondistended, normoactive bowel sounds and non-tender GI Narrative: There is no pain the patient of the pelvis. Palpation: soft Back/Spine no thoracic nor lumbar tenderness Thoracic Spine / Upper Back: Negative for thoracic spinal tenderness Extremity Negative for normal to inspection or full ROM General Extremety ED: Yes deformity and tenderness General Extremity: deformity Neuro oriented x3, CN's II-XII intact bilaterally and no sensory deficits noted [place]verse Coma Scale: document GCS findings Spontaneous Obeys Commands Oriented 15 Sensorium / Orientation: alert Motor Exam: strength 5/5 throughout Psych mental status grossly normal and thought process normal Skin no rashes or lesions noted and no wounds MDM MDM MDM Narrative Medical decision making narrative: Patient with obvious deformity of the hip/femur. X-rays were obtained. Preoperative labs were obtained. Orthopedics was consulted. Hospitalist was consulted. Patient will be an admission for intertrochanteric fracture. Lab Data Attestation: I reviewed the patient's lab results. Labs: Laboratory Results - last 24 hr 06/11/21 06/11/21 20:43 20:45 WBC 8.2 RBC 3.83 L Hgb 10.4 L Hct 34.1 L MCV 89.0 MCH 27.2 MCHC 30.5 L RDW Std Deviation 53.1 H RDW Coeff of Aubrie 16.3 H Plt Count 291 MPV 11.9 Immature Gran % (Auto) 1.000 H Neut % (Auto) 63.6 Lymph % (Auto) 25.6 Jenkins % (Auto) 6.7 Eos % (Auto) 2.6 Baso % (Auto) 0.5 Absolute Neuts (auto) 5.2 Absolute Lymphs (auto) 2.10 Nucleated RBC % 0 Sodium 141 Potassium 4.9 Chloride 112 H Carbon Dioxide 24.0 Anion Gap 5 BUN 21 H Creatinine 0.97 Estim Creat Clear Calc 32.67 Est GFR (MDRD) Af Amer 71 Est GFR (MDRD) Non-Af 59 L BUN/Creatinine Ratio 21.7 H Glucose 118 H Calcium 9.3 Radiography Diagnostic Testing: Radiology Impression Femur X-Ray 06/11/21 22:06 IMPRESSION: Comminuted intertrochanteric, impacted left hip fracture. at 2254 Reported and signed by: Raghav Gould MD Electronically Signed: Raghav Gould MD at 22:53 EDT Tel , Service support , Chest X-Ray 06/11/21 22:20 IMPRESSION: No acute findings in the chest. at 2256 Reported and signed by: Raghav Gould MD Electronically Signed: Raghav Gould MD at 22:55 EDT Tel , Service support , Pelvis X-Ray 06/11/21 22:20 IMPRESSION: Comminuted, impacted intertrochanteric left hip fracture. at 2253 Reported and signed by: Raghav Gould MD Electronically Signed: Raghav Gould MD at 22:53 EDT Tel , Service support , Chest x-ray reveals chronic changes with no acute process. Single view was obtained. Entire femur was obtained and negative other than the intertrochanteric fracture that was noted on the 3 view hip x-ray. EKG Initial EKG: Attestation: I personally reviewed and interpreted this EKG as follows: Interpretation: Sinus Rhythm (Ventricular rate is 76. DC interval 260 ms. Cures duration 148 ms and has morphology left bundle branch block. [place] the left. QT intervals 460 ms.) Discharge Plan Triage Chief Complaint: Fall ED Provider: Gage Mckeon Dx/Rx/DC Orders Clinical Impression: Intertrochanteric fracture of left hip Prescriptions: No Action sertraline 100 MG tablet 100 mg PO DAILY RF: 0 albuterol sulfate 90 mcg/actuation HFA aerosol inhaler 2 puff INHALATION BID RF: 0 atorvastatin 20 MG tablet 20 mg PO DAILY RF: 0 atenolol 50 MG tablet 50 mg PO DAILY RF: 0 sucralfate 1 GM tablet 1 gm PO 4X/DAY Qty: 120 RF: 1 pantoprazole 40 mg tablet,delayed release (DR/EC) 40 mg PO DAILY RF: 0 isosorbide mononitrate 60 mg tablet extended release 24 hr 60 mg PO DAILY RF: 0 lisinopril 20 mg Tablet 20 mg PO DAILY 30 Days Qty: 30 RF: 0 aspirin 81 mg Tablet,Delayed Release (Dr/Ec) 81 mg PO DAILY@0800 Qty: 0 RF: 0 acetaminophen 500 mg Tablet 1,000 mg PO Q6H PRN PRN (Reason: Pain Score 1-5) Qty: 0 RF: 0 Lantus Solostar U-100 Insulin 100 unit/mL (3 mL) Insulin Pen 40 unit subcut DAILY Qty: 0 RF: 0 polysaccharide iron complex [Ferrex 150] 150 mg iron Capsule 150 mg PO DAILYCM 30 Days Qty: 30 RF: 0 potassium chloride [Klor-Con M20] 20 mEq Tablet,Er Particles/Crystals 20 meq PO BIDCM 30 Days Qty: 60 RF: 0 nitroglycerin 0.4 mg Tablet, Sublingual 0.4 mg sublingual Q5M PRN (Reason: Cardiac/Chest Pain) Qty: 0 RF: 0 nitroglycerin 0.4 mg tablet, sublingual 0.4 mg SUBLINGUAL Q5M PRN (Reason: Chest Pain) Qty: 25 RF: 3 furosemide 40 mg tablet 40 mg PO DAILY Qty: 90 RF: 3 Primary Care Provider: Riley Roca Chi Referrals: Riley Roca Chi, MD [Primary Care Provider] -
[2021-06-11] MEDS: Morphine 4 MG/ML Syringe IM (22:47)
[2021-06-11] MEDS: 0.9% Normal Saline 1,000 ML 150 ML IV (22:48)
[2021-06-11 22:56] LABS: Anion Gap 5 (5-15); BUN 21 mg/dL (7-18); BUN/Creat Ratio 21.7 RATIO (10-20); Calcium,Total 9.3 mg/dL (8.5-10.1); Chloride 112 mmol/L (98-107); Creatinine, Serum 0.97 mg/dL (0.55-1.02); EST Glomerular Filtration Rate 59 mL/min (>60); Est Glom Filt Rate - Afr Amer 71 mL/min (>60); Estimated Creatinine Clearance 32.67 ml/min; Glucose 118 mg/dL (74-106); Potassium 4.9 mmol/L (3.5-5.1); Sodium Level 141 mmol/L (136-145)
--- NOTE | 2021-06-11 22:59 | HP.PCM.HOS_ITS ---
HPI - General General Date of Admission: 06/11/21 Date of Service: 06/11/21 Chief Complaint: Fall, L hip pain HPI Narrative The patient is an 81 y/o F w/ PMHx: Chronic Diastolic CHF, Depression and Anxiety, CAD s/p PCI, Obesity, HTN, HLD, GERD/Gastritis, Fe Deficiency anemia who presents to the [facility] ED on 06/11/21 with history of unfortunately leaning over to tile picker something in her laundry room, falling secondary to losing her balance and landing onto her left hip on cement with immediate intractable pain, debility and evident malformation prompting ED evaluation. Patient currently rating her pain sharp, 10 out of 10. Patient lives alone and takes care of all her own ADLs per discussion with her and family. Work-up the ED included plain film with a comminuted impacted intertrochanteric left hip fracture, plain film of the femur with comminuted intertrochanteric impacted left hip fracture confirmed chest x-ray with no acute cardiopulmonary findings, pending CBC upon evaluation, BMP with chloride 112, BUN/creatinine 21/0.97, glucose 118 otherwise not marked appearing, EKG also pending upon evaluation of patient. ED physician also requested type and screen and rapid Covid given admission status. In the ED patient ministered Zofran, normal saline as well as morphine. [facility] Medical History (Updated 06/11/21 @ 23:[address] Ysabel Ruiz MD) Anxiety and depression CAD (coronary artery disease) Congestive heart failure (CHF) Gastroesophageal reflux disease History of hemorrhoids HLD (hyperlipidemia) HTN (hypertension) Non-smoker Type II diabetes mellitus Home Medications sertraline 100 mg PO DAILY 02/26/19 [History Last Taken 04/12/21] albuterol sulfate 2 puff INHALATION BID 06/11/20 [History Last Taken 04/11/21] atenolol 50 mg PO DAILY 06/11/20 [History Last Taken 04/12/21] atorvastatin 20 mg PO DAILY 06/11/20 [History Last Taken 04/12/21] nitroglycerin 0.4 mg sublingual tablet 0.4 mg SUBLINGUAL Q5M PRN #25 tab 10/04/20 [Rx Last Taken 04/10/21] sucralfate 1 gm PO 4X/DAY #120 tab 11/01/20 [Rx Last Taken 04/12/21] isosorbide mononitrate 60 mg PO DAILY 04/12/21 [History Last Taken 04/12/21] pantoprazole 40 mg PO DAILY 04/12/21 [History Last Taken 04/12/21] acetaminophen 1,000 mg PO Q6H PRN PRN #0 tab 05/01/21 [Rx Last Taken Unknown] aspirin 81 mg PO DAILY@0800 #0 tab 05/01/21 [Rx Last Taken Unknown] insulin glargine [Lantus Solostar U-100 Insulin] 40 unit SUBCUT DAILY #0 ml 05/01/21 [Rx Last Taken Unknown] lisinopril 20 mg PO DAILY 30 Days #30 tab 05/01/21 [Rx Last Taken Unknown] nitroglycerin 0.4 mg SUBLINGUAL Q5M PRN #0 tab 05/01/21 [Rx Last Taken Unknown] polysaccharide iron complex [Ferrex 150] 150 mg PO DAILYCM 30 Days #30 cap 05/01/21 [Rx Last Taken Unknown] potassium chloride [Klor-Con M20] 20 meq PO BIDCM 30 Days #60 tab 05/01/21 [Rx Last Taken Unknown] furosemide 40 mg tablet 40 mg PO DAILY #90 tab 05/30/21 [Rx Last Taken Unknown] Allergy/AdvReac Type Severity Reaction Status Date / Time latex Allergy Rash Verified 04/12/21 13:15 Family History Father CVA (cerebral vascular accident) Mother Heart disease CAD (coronary artery disease) Sister CAD (coronary artery disease) Daughter CAD (coronary artery disease) Myocardial infarction Daughter Diabetes Surgical History H/O: hysterectomy History of carpal tunnel release History of cholecystectomy History of coronary artery stent placement History of kyphoplasty Hx of cholecystectomy Hx of knee surgery Social History (Updated 06/11/21 @ 22:[address] Gage Mckeon MD) household members: none Smoking Status: Never smoker alcohol intake: never substance use type: does not use ROS ROS Narrative Admission Review of Systems: CONSTITUTIONAL: No weight loss, fever, chills, + weakness or fatigue. HEENT: Eyes: No visual loss, blurred vision, double vision or yellow sclerae. Ears, Nose, Throat: No hearing loss, sneezing, congestion, runny nose or sore throat. SKIN: No rash or itching, lesions, wounds. CARDIOVASCULAR: No chest pain, chest pressure or chest discomfort, palpitations, edema, orthopnea, syncopal events. RESPIRATORY: No shortness of breath, cough or sputum, wheezing, hemoptysis. GASTROINTESTINAL: No anorexia, nausea, vomiting or diarrhea, abdominal pain, melena, BRBPR. GENITOURINARY: No dysuria, frequency, urgency or retention. NEUROLOGICAL: No headache, dizziness, syncope, paralysis, ataxia, numbness or tingling in the extremities, focal weakness, change in bowel or bladder control, seizure. MUSCULOSKELETAL: + muscle, back pain, joint pain or stiffness. HEMATOLOGIC: + anemia, bleeding or bruising. LYMPHATICS: No enlarged nodes. No history of splenectomy. PSYCHIATRIC: + history of depression or anxiety. ENDOCRINOLOGIC: No reports of sweating, cold or heat intolerance. No polyuria or polydipsia. ALLERGIES: No history of asthma, hives, eczema or rhinitis. Vital Signs Vital Signs Vital Signs: 06/11/21 20:42 06/11/21 20:52 06/11/21 20:56 Temperature 98.3 F Temperature Source Temporal Pulse Rate 61 Respiratory Rate 18 Respiratory Effort Normal Blood Pressure 110/58 L Blood Pressure Mean 75 Pulse Ox 100 Oxygen Delivery Method Room Air Weight Weight: 156 lb 8.451 oz Body Mass Index (BMI) 30.5 Physical Exam Narrative Physical Examination: General: Awake, alert, oriented x 3 and cooperative, laying in the ED bed, obvious distress, notes pain 10 out of 10 in her left hip. Skin: Normal color, normal turgor, no icterus, no cyanosis. HEENT: AT/NC, EOMI, PERRLA, dry MM, no carotid bruits or JVD noted. Lungs: Diminished breath sounds, greater bases, mildly increased respiratory rate likely secondary to pain, no rales, ronchi or wheezing. Heart: Mildly tachycardic with regular rhythm; no gallop, rub audible. Abdomen: Soft, obese, NTTP, ND, normal BS, no HSM. Extremities: No cyanosis, clubbing, or marked edema, abnormally rotated left hip, peripheral pulses intact. Neurological: Patient awake, alert, oriented as noted, cognitive function intact; pupils equally reactive to light and accommodation, cranial nerves II- XII grossly normal, moving all 4 extremities except expected significant limitation left lower extremity given left hip fracture, strength accordingly s everely global decreased. Psychiatric: Affect appears uncomfortable, no acute evidence of depressive or anxiety feelings. Results Lab / Micro Data Result Diagrams: 06/11/21 20:43 06/11/21 20:43 Labs: Laboratory Results - last 24 hr 06/11/21 20:43: Sodium 141, Potassium 4.9, Chloride 112 H, Carbon Dioxide 24.0, Anion Gap 5, BUN 21 H, Creatinine 0.97, Estim Creat Clear Calc 32.67, Est GFR (MDRD) Af Amer 71, Est GFR (MDRD) Non-Af 59 L, BUN/Creatinine Ratio 21.7 H, Glucose 118 H, Calcium 9.3 Radiology Impression Femur X-Ray 06/11/21 22:06 IMPRESSION: Comminuted intertrochanteric, impacted left hip fracture. at 2254 Reported and signed by: Raghav Gould MD Electronically Signed: Raghav Gould MD at 22:53 EDT Tel , Service support , Chest X-Ray 06/11/21 22:20 IMPRESSION: No acute findings in the chest. at 2256 Reported and signed by: Raghav Gould MD Electronically Signed: Raghav Gould MD at 22:55 EDT Tel , Service support , Pelvis X-Ray 06/11/21 22:20 IMPRESSION: Comminuted, impacted intertrochanteric left hip fracture. at 2253 Reported and signed by: Raghav Gould MD Electronically Signed: Raghav Gould MD at 22:53 EDT Tel , Service support , Assessment & Plan Assessment/Plan (1) Intertrochanteric fracture of left hip: QUALIFIERS: Encounter type: initial encounter Fracture type: closed Fracture alignment: nondisplaced Qualified Code(s): S72.145A - Nondisplaced intertrochanteric fracture of left femur, initial encounter for closed fracture PLAN: The patient is an 81 y/o F w/ PMHx: Chronic Diastolic CHF, Depression and Anxiety, CAD s/p PCI, Obesity, HTN, HLD, GERD/Gastritis, Fe Deficiency anemia who presents to the [facility] ED on 06/11/21 with history of unf ortunately leaning over to tile picker something in her laundry room, falling secondary to losing her balance and landing onto her left hip on cement with immediate intractable pain, debility and evident malformation prompting ED evaluation. 1. General debility, L hip pain s/p mechanical fall w/ comminuted impacted intertrochanteric left hip fracture: Plain film noting comminuted impacted intertrochanteric left hip fracture. Orthopedic surgery consulted from ED, Dr. Tavarez. Will admit to [facility], maintain NPO after midnight, continue gentle IVFs given history, obtain TSH, Mag level, UA, UCx, patrick placement, monitor I/Os, frequent positioning, fall precautions, Pain, anti-emetic regimen. PT/OT following operative intervention. CM consulted for discharge planning. NSQIP given patient underlying history with average risk of serious outcome, any complication, pneumonia although mild above average cardiac complication given underlying history, mild above average UTI possibility and mild above average readmission possibility with below average . Pending EKG, recent 06/12/2020 echocardiogram. Patient with no significant chest discomfort or dyspnea/exertional dyspnea per her report functioning well alone at home. Given notable underlying cardiac history will request a.m. cardiac evaluation for clearance for operative intervention. 2. Chronic Diastolic CHF/HFpEF: Most recent echocardiogram 06/12/2020 with normal LV systolic function, EF 55%, septal motion consistent with IVCD, mildly enlarged left atrium, mild MV stenosis, moderate MVI, mild TVI, aortic sclerosis with no stenosis, trivial pulmonic valve insufficiency, RVSP 41 mmHg with evidence of diastolic dysfunction, we will continue patient aspirin, statin, atenolol Toprol, Lasix regimen. 3. CAD: s/p PCI w/ PTCA/stent to mid first Diagonal 12/21/03 and PTCA/stent to mid Diagonal 07/02/07, echocardiogram 2019 with a EF 55%, will continue aspirin, statin, atenolol, lisinopril regimen. 4. Diabetes mellitus type II: Hold oral home regimen, continue home insulin regimen, ADA diet until n.p.o. status, accu checks w/ ISS. 5. Hypertension: Continue home regimen including atenolol, Lasix, isosorbide, lisinopril with hold parameters as needed, PRN hydralazine. 6. Hyperlipidemia: We will continue patient on statin therapy. 7. Anxiety and depression: We will continue patient home sertraline regimen. 8. GERD, suspected history of gastritis: We will continue patient home sucralfate and PPI. 9. Chronic anemia, iron deficiency: Admission hemoglobin pending upon requested evaluation of patient, continue iron supplementation, trend CBC. 10. DVT prophylaxis: SCDs, hold chemoprophylaxis for planned 06/12/2021 operative intervention. 11. CODE status: Patient BILLIE is her daughter who is present and living will is currently in place. Discussed CODE status at length including difference between FULL code, DNR-CCA and DNR-CC status. Following discussions about the differences in these status, requested Full Code status. Advanced Care Planning Face to Face Time: 16 minutes. Charges/Coding Visit Charges Inpatient E&M: 70196 Init Hosp L3 Procedures Hospitalists Procedures: 94792 Advncd Care Plan 30 Min
[2021-06-11 23:08] LABS: Absolute Neutrophil Count 5.2 X10^3/uL (2.0-7.7); Basophil# 0.04 X10^3/uL; Basophil% 0.5 % (0-1); Eosinophil# 0.21 X10^3/uL; Eosinophils% 2.6 % (0-5); Hematocrit 34.1 % (37-47); Hemoglobin 10.4 g/dL (12.0-15.0); Lymphocyte % 25.6 % (19-41); Mean Corp Hgb Conc 30.5 g/dL (32-36); Mean Corpuscular Hgb 27.2 pg (27.0-32.0); Mean Platelet Vol. 11.9 fl (6.2-12.0); Monocyte# 0.55 X10^3/uL; Monocyte% 6.7 % (0-10); NRBC Flagged by Analyzer 0 % (0-5); Neutrophil # 5.21 X10^3/uL (2.7-7.7); Neutrophil % 63.6 % (47-70); Platelet Count 291 K/mm3 (150-450); RBC Distribution Width CV 16.3 % (11.6-14.6); RBC Distribution Width SD 53.1 fl (35.1-43.9); Red Blood Count 3.83 M/mm3 (4.2-5.4); White Blood Count 8.2 K/mm3 (4.4-11.0)
[2021-06-11 23:09] LABS: POSITIVE COUNT NO; POSITIVE DIFFERENTIAL NO; POSITIVE MORPHOLOGY NO
[2021-06-11 23:20] VITALS: BP 173/74; PULSE 65; RESP 18; O2SAT 93
[2021-06-11 23:25] VITALS: BP 173/74; PULSE 65; RESP 18; TEMP 36.8; O2SAT 93
[2021-06-11 23:40] LABS: Magnesium 2.1 mg/dL (1.6-2.6)
[2021-06-11 23:52] LABS: BNP,B-Type NATRIURETIC PEPTIDE 168.9 pg/mL (0-100)
[2021-06-12] VITALS (18 sets, daily range): BP systolic 103–175; BP diastolic 29–87; PULSE 60–81; RESP 16–20; TEMP 36.6–37.2; O2SAT 90–100; BMI 30.2; BMI 30.1
--- NOTE | 2021-06-12 00:38 | RAD_ITS ---
EXAM: XR LEFT HIP WITH PELVIS WHEN PERFORMED, 2 OR 3 VIEWS : 1940 CLINICAL INDICATION: Jaime's Traction TECHNIQUE: Two or three views of the left hip with pelvis when performed. This report was created using [employer] management report generation technology. COMPARISON: 06/11/21 FINDINGS: BONES/JOINTS: Intertrochanteric left hip fracture is again noted, with decrease in the impaction and angulation status post traction. No destructive or sclerotic lesions. Note that overlapping bowel shadows may however obscure fine detail. Sacroiliac joint is unremarkable. No widening of the pubic symphisis. SOFT TISSUES: Unremarkable. No soft tissue swelling or gas. RAD/Hip Min 2 Views (Portable) IMPRESSION: Intertrochanteric left hip fracture is again noted, with decrease in the impaction and angulation status post traction. at 0200 Reported and signed by: Raghav Gould MD Electronically Signed: Raghav Gould MD at 1:59 EDT Tel , Service support ,
[2021-06-12] MEDS: MELATONIN 3 MG TABLET PO (01:09)
[2021-06-12] MEDS: hydrALAZINE 20 MG/ML Vial 10 MG IV (01:09)
[2021-06-12] MEDS: oxyCODONE 5 MG Tablet PO (01:09)
[2021-06-12] MEDS: Acetaminophen 325 MG Tablet 650 MG PO (01:10)
[2021-06-12 01:47] LABS: Color, Urine Yellow (Yellow); Glucose, Dipstick Normal (Normal); Ketone-Dipstick Negative (Negative); Leukocyte Esterase-Dipstick 100 /ul (Negative); Nitrite-Dipstick Positive (Negative); Occult Blood-Urine Negative /ul (Negative); Protein-Dipstick 15 mg/dl (Negative); Urine Bilirubin Dipstick Negative (Negative); Urine Clarity Clear (Clear); Urine Urobilinogen Normal (Normal)
[2021-06-12] MEDS: Morphine 2 MG/ML Syringe IV (05:51)
[2021-06-12] MEDS: Ondansetron 4 MG/2 ML Vial IV (05:51)
[2021-06-12] MEDS: 0.9% Normal Saline 1,000 ML 100 ML IV ×3 (05:52→16:55)
[2021-06-12 06:34] LABS: Absolute Lymphocyte Count 1.55 X10^3/uL (0.83-4.51); Absolute Neutrophil Count 11.6 X10^3/uL (2.0-7.7); Basophil# 0.04 X10^3/uL; Basophil% 0.3 % (0-1); Eosinophil# 0.26 X10^3/uL; Eosinophils% 1.8 % (0-5); Hematocrit 32.1 % (37-47); Hemoglobin 9.5 g/dL (12.0-15.0); Lymphocyte # 1.55 X10^3/ul (0.83-4.51); Lymphocyte % 10.8 % (19-41); Mean Corp Hgb Conc 29.6 g/dL (32-36); Mean Corpuscular Hgb 27.2 pg (27.0-32.0); Mean Platelet Vol. 11.3 fl (6.2-12.0); Monocyte% 5.6 % (0-10); NRBC Flagged by Analyzer 0 % (0-5); Neutrophil # 11.62 X10^3/uL (2.7-7.7); Neutrophil % 80.9 % (47-70); Platelet Count 249 K/mm3 (150-450); RBC Distribution Width CV 16.2 % (11.6-14.6); RBC Distribution Width SD 54.8 fl (35.1-43.9); Red Blood Count 3.49 M/mm3 (4.2-5.4); White Blood Count 14.4 K/mm3 (4.4-11.0)
[2021-06-12 06:42] LABS: International Normalized Ratio 1.2; Prothrombin Time (Protime)PT. 14.1 SECONDS (11.7-14.9)
[2021-06-12 06:43] LABS: Partial Thromboplast Time 31.6 Seconds (24.1-36.2)
[2021-06-12] MEDS: Albuterol 2.5 MG/3 ML VIAL.NEB. INHALATION (06:57)
[2021-06-12 07:01] LABS: Bedside Glucose 105 mg/dL (70-110)
[2021-06-12 07:05] LABS: AST(SGOT) 21 U/L (15-37); Alanine Aminotransfer ALT/SGPT 18 U/L (13-56); Albumin, Serum 3.2 g/dL (3.2-5.0); Alkaline Phosphatase 97 U/L (45-117); Anion Gap 5 (5-15); BUN 18 mg/dL (7-18); BUN/Creat Ratio 28.1 RATIO (10-20); Calcium,Total 8.6 mg/dL (8.5-10.1); Chloride 111 mmol/L (98-107); Creatinine, Serum 0.64 mg/dL (0.55-1.02); EST Glomerular Filtration Rate 94 mL/min (>60); Est Glom Filt Rate - Afr Amer 114 mL/min (>60); Estimated Creatinine Clearance 48.69 ml/min; Globulin 3.2 g/dL (2.2-4.2); Glucose 107 mg/dL (74-106); Potassium 4.3 mmol/L (3.5-5.1); Protein, Total 6.4 g/dL (6.4-8.2); Sodium Level 138 mmol/L (136-145); Thyroid Stim Hormone (TSH) 0.01 uIU/mL (0.358-3.74)
[2021-06-12 07:59] LABS: Hemoglobin A1c 6.2 % (3.8-5.6)
--- NOTE | 2021-06-12 08:23 | CON.PCM.CA_ITS ---
Assessment & Plan Assessment/Plan (1) CAD (coronary artery disease): QUALIFIERS: Associated angina: without angina Coronary Disease- Associated Artery/Lesion type: [place] artery [place] vs. transplanted heart: [place] heart Qualified Code(s): I25.10 - Atherosclerotic heart disease of [place] coronary artery without angina pectoris PLAN: At the present time she appears to doing well with no acute symptoms or adverse events. She should continue medical management and follow-up. (2) History of coronary artery stent placement: PLAN: She has a history of previous PCI. Again she appears to be doing well at this time with no acute symptoms or adverse events. She will continue medical therapy. (3) Ischemic cardiomyopathy: PLAN: She has undergone noninvasive and invasive valuation as noted in the past. Appears to be stable with no acute symptoms. She will continue medical therapy. (4) Congestive heart failure (CHF): QUALIFIERS: Heart failure chronicity: chronic Heart failure type: diastolic Qualified Code(s): I50.32 - Chronic diastolic (congestive) heart f ailure PLAN: She does not appear to have any ongoing acute on chronic diastolic mediated CHF issues at this time. She will continue medical therapy and follow-up. (5) Hyperlipidemia: QUALIFIERS: Hyperlipidemia type: unspecified Qualified Code(s): E78.5 - Hyperlipidemia, unspecified PLAN: She should continue risk factor evaluation care as tolerated. (6) HTN (hypertension): QUALIFIERS: Hypertension type: unspecified Qualified Code(s): I10 - Essential (primary) hypertension PLAN: Her blood pressure will need to be followed and her medications can be adjusted accordingly. (7) Intertrochanteric fracture of left hip: QUALIFIERS: Encounter type: initial encounter Fracture alignment: nondisplaced Fracture type: closed Qualified Code(s): S72.145A - Nondisplaced intertrochanteric fracture of left femur, initial encounter for closed fracture PLAN: From a cardiac standpoint she appears to be stable. It does not appear she requires additional cardiac diagnostic studies or therapeutic intervention at this time. She should continue her medical therapy and and around the time of her surgery as best as possible. An attempt should be made to avoid significant fluctuations in her vital signs and her volume status in a nd around the time of surgery. Hopefully based upon a stable clinical course with close monitoring and continued medical therapy her risk for adverse cardiovascular events from noncardiac surgery will be kept at a minimum. HPI Consult Data Date of Consult: 06/12/21 HPI Narrative HPI Narrative: LARRY MALDONADO, is a 81 year old white female who presents for cardiovascular consultation in anticipation of upcoming left hip ORIF based upon a history of underlying CAD, PCI, superimposed upon chronic diastolic mediated CHF, hyperlipidemia, and hypertension. She states from a cardiac standpoint she had been doing well. She has denied any ongoing issues of angina pectoris and there is been no overt issues of acute on chronic CHF or pulmonary edema. She has not had ongoing orthopnea or PND or peripheral pitting edema. She states she has not had any near-syncope or syncope. She states her main concern at the moment is that she had an accidental fall at home. This resulted in a left hip fracture. She is now pending left hip ORIF. She has undergone previous noninvasive and invasive studies as noted below. [facility] Medical History (Updated 06/12/21 @ 08:[address] Guicho Billy MD) Anemia Anxiety and depression Back pain due to injury CAD (coronary artery disease) CAD (coronary artery disease) Chest pain Congestive heart failure (CHF) Congestive heart failure (CHF) Current use of insulin Depression Diabetes Gastroesophageal reflux disease High cholesterol History of hemorrhoids History of stress test HLD (hyperlipidemia) HTN (hypertension) HTN (hypertension) Irritable bowel Myocardial infarct Non-smoker Non-smoker Post-menopausal Sleep apnea Type II diabetes mellitus Home Medications sertraline 100 mg PO DAILY 02/26/19 [History Last Taken 04/12/21] albuterol sulfate 2 puff INHALATION BID 06/11/20 [History Last Taken 04/11/21] atenolol 50 mg PO DAILY 06/11/20 [History Last Taken 04/12/21] atorvastatin 20 mg PO QHS 06/11/20 [History Last Taken 04/12/21] nitroglycerin 0.4 mg sublingual tablet 0.4 mg SUBLINGUAL Q5M PRN #25 tab 10/04/20 [Rx Last Taken 04/10/21] sucralfate 1 gm PO 4X/DAY #120 tab 11/01/20 [Rx Last Taken 04/12/21] isosorbide mononitrate 60 mg PO DAILY 04/12/21 [History Last Taken 04/12/21] pantoprazole 40 mg PO DAILY 04/12/21 [History Last Taken 04/12/21] acetaminophen 1,000 mg PO Q6H PRN PRN #0 tab 05/01/21 [Rx Last Taken Unknown] aspirin 81 mg PO DAILY@0800 #0 tab 05/01/21 [Rx Last Taken Unknown] lisinopril 20 mg PO DAILY 30 Days #30 tab 05/01/21 [Rx Last Taken Unknown] nitroglycerin 0.4 mg SUBLINGUAL Q5M PRN #0 tab 05/01/21 [Rx Last Taken Unknown] polysaccharide iron complex [Ferrex 150] 150 mg PO DAILYCM 30 Days #30 cap 05/01/21 [Rx Last Taken Unknown] potassium chloride [Klor-Con M20] 20 meq PO BIDCM 30 Days #60 tab 05/01/21 [Rx Last Taken Unknown] furosemide 40 mg tablet 40 mg PO DAILY #90 tab 05/30/21 [Rx Last Taken Unknown] insulin glargine U-300 conc [Toujeo SoloStar U-300 Insulin] 50 unit SUBCUT DAILY 06/12/21 [History Last Taken Unknown] Allergy/AdvReac Type Severity Reaction Status Date / Time latex Allergy Other Verified 06/12/21 01:26 Family History Father CVA (cerebral vascular accident) Mother Heart disease CAD (coronary artery disease) Sister CAD (coronary artery disease) Daughter CAD (coronary artery disease) Myocardial infarction Daughter Diabetes Surgical History (Updated 06/12/21 @ 00:46 by Roro Lopes) H/O: hysterectomy History of carpal tunnel release History of cholecystectomy History of cholecystectomy History of coronary artery stent placement History of heart artery stent History of kyphoplasty Hx of cholecystectomy Hx of knee surgery S/P hysterectomy Social History (Updated 06/11/21 @ 22:[address] Gage Mckeon MD) household members: none Smoking Status: Never smoker alcohol intake: never substance use type: does not use ROS Constitutional Constitutional: Reports as per HPI Eyes Eyes: Reports as per HPI ENT HEENT: Reports as per HPI Cardiovascular Cardiovascular: Reports as per HPI Respiratory/Chest Respiratory/Chest: Reports as per HPI Gastrointestinal Gastrointestinal: Reports as per HPI Genitourinary Genitourinary: Reports as per HPI Musculoskeletal Musculoskeletal: Reports joint pain Integumentary Integumentary: Reports as per HPI Neurologic Neurologic: Reports as per HPI Physical Exam Const alert, oriented x3 and no apparent distress Orientation / Consciousness: awake HEENT normocephalic, head/scalp atraumatic and hearing grossly normal bilaterally Eyes PERRL and EOMs intact bilaterally Neck supple and no JVD Resp clear to auscultation bilaterally Cardio regular rate, regular rhythm, S1 normal heart sound and S2 normal heart sound GI normal to inspection, nondistended, normoactive bowel sounds Extremity no pedal edema Skin no rashes or lesions noted Neuro oriented x3 Psych mental status grossly normal Procedure Criteria Type of Procedure Procedure Type: Elective Elective Risks - COVID COVID Risk Discussion: The surgeon/proceduralist and patient have discussed in detail the risk of exposure to and/or potential harm posed by the COVID-19 virus with having a surgery/procedure at this time versus the risk of delaying the surgery/procedure. It is not possible to know either the risk of delaying the surgery or procedure or chance of getting an infection with perfect accuracy, but a joint decision was made between the patient and the surgeon/proceduralist to proceed at this time with the scheduled surgery/procedure as indicated on the consent form. Objective Data Vital Signs: Vital Signs Temp Pulse Resp BP Pulse Ox 99 F 68 18 162/74 H 98 06/12/21 01:02 06/12/21 06:58 06/12/21 06:58 06/12/21 01:02 06/12/21 06:58 Oxygen Delivery Method Room Air Weight: 154 lb 1.65 oz Body Mass Index (BMI) 30.2 Intake & Output: Intake and Output for Last 24 Hours 06/10/21 06/11/21 06/12/21 23:59 23:59 23:59 Intake Total 816.67 / 816.67 Output Total 900 / 900 Balance -83.33 / -83.33 Lab / Micro Data Result Diagrams: 06/12/21 06:06 06/12/21 06:06 Labs: Laboratory Results - last 24 hr 06/11/21 20:43: Sodium 141, Potassium 4.9, Chloride 112 H, Carbon Dioxide 24.0, Anion Gap 5, BUN 21 H, Creatinine 0.97, Estim Creat Clear Calc 32.67, Est GFR (MDRD) Af Amer 71, Est GFR (MDRD) Non-Af 59 L, BUN/Creatinine Ratio 21.7 H, Glucose 118 H, Calcium 9.3 08/24/21 20:45: WBC 8.2, RBC 3.83 L, Hgb 10.4 L, Hct 34.1 L, MCV 89.0, MCH 27.2, MCHC 30.5 L, RDW Std Deviation 53.1 H, RDW Coeff of Aubrie 16.3 H, Plt Count 291, MPV 11.9, Immature Gran % (Auto) 1.000 H, Neut % (Auto) 63.6, Lymph % (Auto) 25.6, [place] % (Auto) 6.7, Eos % (Auto) 2.6, Baso % (Auto) 0.5, Absolute Neuts (a uto) 5.2, Absolute Lymphs (auto) 2.10, Nucleated RBC % 0 06/11/21 20:45: Magnesium 2.1 06/11/21 20:45: B-Natriuretic Peptide 168.9 H 06/11/21 22:37: Blood Type O POSITIVE, Antibody Screen NEGATIVE 06/12/21 01:30: Urine Color Yellow, Urine Clarity Clear, Urine pH 5.0, Ur Specific [place] 1.010, Urine Protein 15 H, Urine Glucose (UA) Normal, Urine Ketones Negative, Urine Occult Blood Negative, Urine Nitrite Positive H, Urine Bilirubin Negative, Urine Urobilinogen Normal, Ur Leukocyte Esterase 100 H 06/12/21 06:06: WBC 14.4 H, RBC 3.49 L, Hgb 9.5 L, Hct 32.1 L, MCV 92.0, MCH 27.2, MCHC 29.6 L, RDW Std Deviation 54.8 H, RDW Coeff of [place] 16.2 H, Plt Count 249, MPV 11.3, Immature Gran % (Auto) 0.600, Neut % (Auto) 80.9 H, Lymph % (Auto) 10.8 L, [place] % (Auto) 5.6, Eos % (Auto) 1.8, Baso % (Auto) 0.3, Absolute Neuts (auto) 11.6 H, Absolute Lymphs (auto) 1.55, Nucleated RBC % 0 06/12/21 06:06: PT 14.1, INR 1.2, APTT 31.6 06/12/21 06:06: Sodium 138, Potassium 4.3, Chloride 111 H, Carbon Dioxide 22.0, Anion Gap 5, BUN 18, Creatinine 0.64, Estim Creat Clear Calc 48.69, Est GFR (MDRD) Af Amer 114, Est GFR (MDRD) Non-Af 94, BUN/Creatinine Ratio 28.1 H, Gl ucose 107 H, Calcium 8.6, Total Bilirubin 0.60, AST 21, ALT 18, Alkaline Phosphatase 97, Total Protein 6.4, Albumin 3.2, Globulin 3.2, Albumin/Globulin Ratio 1.0, TSH 0.01 L 06/12/21 06:06: Hemoglobin A1c 6.2 H 06/12/21 06:50: POC Glucose 105 Micro: Microbiology 06/11/21 22:51 Mucosa - Nose SARS-CoV-2 Antigen (Rapid) - Final Cardiology Labs/Tests 06/11/21 20:43: Sodium 141, Potassium 4.9, Chloride 112 H, Carbon Dioxide 24.0, Anion Gap 5, BUN 21 H, Creatinine 0.97, Est GFR (MDRD) Af Amer 71, Est GFR (MDRD) Non-Af 59 L, BUN/Creatinine Ratio 21.7 H, Glucose 118 H, Calcium 9.3 06/11/21 20:45: WBC 8.2, RBC 3.83 L, Hgb 10.4 L, Hct 34.1 L, MCV 89.0, MCH 27.2, MCHC 30.5 L, Plt Count 291, MPV 11.9, Immature Gran % (Auto) 1.000 H, Neut % (Auto) 63.6, Lymph % (Auto) 25.6, [place] % (Auto) 6.7, Eos % (Auto) 2.6, Baso % (Auto) 0.5, Absolute Neuts (auto) 5.2, Nucleated RBC % 0 06/11/21 20:45: Magnesium 2.1 06/11/21 20:45: B-Natriuretic Peptide 168.9 H 06/12/21 01:30: Urine Color Yellow, Urine Clarity Clear, Urine pH 5.0, Ur Specific [place] 1.010, Urine Protein 15 H, Urine Glucose (UA) Normal, Urine Ketones Negative, Urine Occult Blood Negative, Urine Nitrite Positive H, Urine Bilirubin Negative, Urine Urobilinogen Normal, Ur Leukocyte Esterase 100 H 06/12/21 06:06: WBC 14.4 H, RBC 3.49 L, Hgb 9.5 L, Hct 32.1 L, MCV 92.0, MCH 27.2, MCHC 29.6 L, Plt Count 249, MPV 11.3, Immature Gran % (Auto) 0.600, Neut % (Auto) 80.9 H, Lymph % (Auto) 10.8 L, [place] % (Auto) 5.6, Eos % (Auto) 1.8, Baso % (Auto) 0.3, Absolute Neuts (auto) 11.6 H, Nucleated RBC % 0 06/12/21 06:06: PT 14.1, INR 1.2, APTT 31.6 06/12/21 06:06: Sodium 138, Potassium 4.3, Chloride 111 H, Carbon Dioxide 22.0, Anion Gap 5, BUN 18, Creatinine 0.64, Est GFR (MDRD) Af Amer 114, Est GFR (MDRD) Non-Af 94, BUN/Creatinine Ratio 28.1 H, Glucose 107 H, Calcium 8.6, Total Bilirubin 0.60 06/12/21 06:06: Hemoglobin A1c 6.2 H Rhythm: Sinus rhythm EKG: Sinus rhythm; left bundle branch block Carotid Duplex 2018: Moderate (50-69%) stenosis right extracranial internal carotid. Moderate (50- 69%) stenosis left extracranial internal carotid. Flow within the vertebral arteries is antegrade bilaterally. Echocardiogram in 2019 demonstrated: Normal LV size. Mild concentric left ventricular hypertrophy. The estimated ejection fraction is 55 %. Stage 2 diastolic dysfunction. No regional wall motion abnormalities noted. The left atrium is mildly enlarged. Mild (1+) eccentric mitral valve insufficiency. Septal motion consistent with IVCD. Mild (1+) tricuspid valve insufficiency. Echocardiogram: 06/12/2020 Interpretation Summary Left ventricular systolic function is normal. The estimated ejection fraction is 55 %. Septal motion consistent with IVCD. The left atrium is mildly enlarged. There is mild to moderate mitral annular calcification. Mild focal mitral valve calcification of the anterior leaflet. The mitral valve chordae are thickened and/or calcified. Mild mitral valve stenosis. Moderate (2+) mitral valve insufficiency. Mild tricuspid valve insufficiency. Aortic sclerosis, no stenosis. Trivial pulmonic valve insufficiency. Right ventricular systolic pressure estimated to be 41 mmHg. There is evidence of diastolic dysfunction. Stress test 2019 demonstrated: Conclusion: Myocardial perfusion stress test with evidence of left ventricular dyssynchrony No obvious ischemia noted Mild reduction of left ventricular function Cardiac cath: 11/06/2015 Final impression: 1. Elevated left ventricular end diastolic pressure compatible decreased LV sys tolic function 2. Left ventricle: A. Hypokinesis of the mid anterior and distal anterior segments B. Hypokinesis of the mid inferior and distal inferior segments C. Estimated LVEF of 45% 3. Left main coronary artery: A. Angiographically normal 4. Left anterior descending coronary artery: A. Proximal mild calcification B. 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 Diagonal branch: Stented: Patent: With minimal luminal irregularities 5. Left circumflex coronary artery: A. Proximal 10-25% eccentric appearing stenosis B. OM 1: Proximal minimal luminal irregularities followed by 25-50% eccentric appearing stenosis 6. Right coronary artery: A. Moderate size dominant vessel B. Angiographically normal 7. Mitral valve: A. Moderate mitral valve regurgitation Radiography Diagnostic Testing: Radiology Impression Femur X-Ray 06/11/21 22:06 IMPRESSION: Comminuted intertrochanteric, impacted left hip fracture. at 2254 Reported and signed by: Raghav Gould MD Electronically Signed: Raghav Gould MD at 22:53 EDT Tel , Service support , Chest X-Ray 06/11/21 22:20 IMPRESSION: No acute findings in the chest. at 2256 Reported and signed by: Raghav Gould MD Electronically Signed: Raghav Gould MD at 22:55 EDT Tel , Service support , Pelvis X-Ray 06/11/21 22:20 IMPRESSION: Comminuted, impacted intertrochanteric left hip fracture. at 2253 Reported and signed by: Raghav Gould MD Electronically Signed: Raghav Gould MD at 22:53 EDT Tel , Service support , Hip X-Ray 06/12/21 00:38 IMPRESSION: Intertrochanteric left hip fracture is again noted, with decrease in the impaction and angulation status post traction. at 0200 Reported and signed by: Raghav Gould MD Electronically Signed: Raghav Gould MD at 1:59 EDT Tel , Service support ,
[2021-06-12] MEDS: Atenolol 50 MG Tablet PO (09:58)
--- NOTE | 2021-06-12 10:00 | CASEMGMT ---
Pt screened with [facility] Palliative Care Screening Tool due to strata 3, pt did not meet criteria.
--- NOTE | 2021-06-12 10:45 | CASEMGMT ---
Social Work Note Per cashier courtesy booth questions, pt has completed HCPOA and LW and provided copies to [facility]. SW reviewed chart, copies found on pt's chart. SW printed off copies and placed on pt's chart. Sharyn Hernández CAN FILLING MACHINE OPERATOR, BUS OPERATOR
--- NOTE | 2021-06-12 11:00 | PN.HOSP_ITS ---
Subjective Subjective Patient seen and examined. She complains of left hip pain as well as left foot pain. She was admitted with complaint of fall and found to have a left hip fracture. She is due for surgery today. Cardiology has been consulted for cardiac clearance. Review of sounds otherwise negative. She has remained hemodynamically stable. Objective Data Objective Data Vital Signs: Vital Signs Temp Pulse Resp BP Pulse Ox 98.2 F 68 16 126/69 H 96 06/12/21 09:41 06/12/21 09:41 06/12/21 09:41 06/12/21 09:41 06/12/21 09:41 Oxygen Delivery Method Room Air Weight: 154 lb 1.65 oz Body Mass Index (BMI) 30.2 Intake & Output: Intake and Output for Last 24 Hours 06/10/21 06/11/21 06/12/21 23:59 23:59 23:59 Intake Total 816.67 / 816.67 Output Total 900 / 900 Balance -83.33 / -83.33 Lab / Micro Data Result Diagrams: 06/12/21 06:06 06/12/21 06:06 Labs: Laboratory Results - last 24 hr 06/11/21 20:43: Sodium 141, Potassium 4.9, Chloride 112 H, Carbon Dioxide 24.0, Anion Gap 5, BUN 21 H, Creatinine 0.97, Estim Creat Clear Calc 32.67, Est GFR (MDRD) Af Amer 71, Est GFR (MDRD) Non-Af 59 L, BUN/Creatinine Ratio 21.7 H, Glucose 118 H, Calcium 9.3 06/11/21 20:45: WBC 8.2, RBC 3.83 L, Hgb 10.4 L, Hct 34.1 L, MCV 89.0, MCH 27.2, MCHC 30.5 L, RDW Std Deviation 53.1 H, RDW Coeff of Aubrie 16.3 H, Plt Count 291, MPV 11.9, Immature Gran % (Auto) 1.000 H, Neut % (Auto) 63.6, Lymph % (Auto) 25.6, [place] % (Auto) 6.7, Eos % (Auto) 2.6, Baso % (Auto) 0.5, Absolute Neuts (auto) 5.2, Absolute Lymphs (auto) 2.10, Nucleated RBC % 0 08/24/21 20:45: Magnesium 2.1 06/11/21 20:45: B-Natriuretic Peptide 168.9 H 06/11/21 22:37: Blood Type O POSITIVE, Antibody Screen NEGATIVE 06/12/21 01:30: Urine Color Yellow, Urine Clarity Clear, Urine pH 5.0, Ur Specific [place] 1.010, Urine Protein 15 H, Urine Glucose (UA) Normal, Urine Ketones Negative, Urine Occult Blood Negative, Urine Nitrite Positive H, Urine Bilirubin Negative, Urine Urobilinogen Normal, Ur Leukocyte Esterase 100 H 06/12/21 06:06: WBC 14.4 H, RBC 3.49 L, Hgb 9.5 L, Hct 32.1 L, MCV 92.0, MCH 27.2, MCHC 29.6 L, RDW Std Deviation 54.8 H, RDW Coeff of [place]rie 16.2 H, Plt Count 249, MPV 11.3, Immature Gran % (Auto) 0.600, Neut % (Auto) 80.9 H, Lymph % (Auto) 10.8 L, [place] % (Auto) 5.6, Eos % (Auto) 1.8, Baso % (Auto) 0.3, Absolute Neuts (auto) 11.6 H, Absolute Lymphs (auto) 1.55, Nucleated RBC % 0 06/12/21 06:06: PT 14.1, INR 1.2, APTT 31.6 06/12/21 06:06: Sodium 138, Potassium 4.3, Chloride 111 H, Carbon Dioxide 22.0, Anion Gap 5, BUN 18, Creatinine 0.64, Estim Creat Clear Calc 48.69, Est GFR (MDRD) Af Amer 114, Est GFR (MDRD) Non-Af 94, BUN/Creatinine Ratio 28.1 H, Glucose 107 H, Calcium 8.6, Total Bilirubin 0.60, AST 21, ALT 18, Alkaline Phosphatase 97, Total Protein 6.4, Albumin 3.2, Globulin 3.2, Albumin/Globulin Ratio 1.0, TSH 0.01 L 06/12/21 06:06: Hemoglobin A1c 6.2 H 06/12/21 06:50: POC Glucose 105 Micro: Microbiology 06/11/21 22:51 Mucosa - Nose SARS-CoV-2 Antigen (Rapid) - Final Radiography Diagnostic Testing: Radiology Impression Femur X-Ray 06/11/21 22:06 IMPRESSION: Comminuted intertrochanteric, impacted left hip fracture. at 2254 Reported and signed by: Raghav Gould MD Electronically Signed: Raghav Gould MD at 22:53 EDT Tel , Service support , Chest X-Ray 06/11/21 22:20 IMPRESSION: No acute findings in the chest. at 2256 Reported and signed by: Raghav Gould MD Electronically Signed: Raghav Gould MD at 22:55 EDT Tel , Service support , Pelvis X-Ray 06/11/21 22:20 IMPRESSION: Comminuted, impacted intertrochanteric left hip fracture. at 2253 Reported and signed by: Raghav Golud MD Electronically Signed: Raghav Gould MD at 22:53 EDT Tel , Service support , Hip X-Ray 06/12/21 00:38 IMPRESSION: Intertrochanteric left hip fracture is again noted, with decrease in the impaction and angulation status post traction. at 0200 Reported and signed by: Raghav Gould MD Electronically Signed: Raghav Gould MD at 1:59 EDT Tel , Service support , Physical Exam Const alert, oriented x3 and no apparent distress Exam Limitations: no limitations HEENT head/scalp atraumatic and moist oral mucous membranes Head and Scalp: normocephalic Eyes PERRL, EOMs intact bilaterally and conjunctivae normal Neck no lymphadenopathy Resp normal respiratory effort, no retractions, no use of accessory muscles and clear to auscultation bilaterally Cardio regular rate, regular rhythm, S1 normal heart sound, S2 normal heart sound and no murmurs GI normal to inspection, nondistended, normoactive bowel sounds, soft to palpation, non-tender and non-distended Extremity Extremity Narrative: LLE in traction. Peripheral Pulses: Yes pulses 2+ throughout Skin no rashes or lesions noted Neuro oriented x3 and CN's II-XII intact bilaterally Sensorium / Orientation: awake and alert Psych affect normal Assessment & Plan Assessment/Plan (1) Intertrochanteric fracture of left hip: QUALIFIERS: Encounter type: initial encounter Fracture type: closed Fracture alignment: nondisplaced Qualified Code(s): S72.145A - Nondisplaced intertrochanteric fracture of left femur, initial encounter for closed fracture PLAN: #Left hip intertrochanteric fracture * due to mechanical fall * orthopedics on board. LLE in traction * on IV oxycodone, PO tylenol and IV morphine prn for pain * PT/OT on board. Fall precautions * cardiology consulted for cardiac clearance * #History of CHF * not in exacerbation. * on PO lasix 40mg daily. * #CAD s/p stents; on aspirin, atenolol, imdur and lisinopril * #Diabetes mellitus * on lantus 40 units daily. * ISS. accuchecks ACHS * #Hypertension: on atenolol and lisinopril #Depression; on sertraline #Chronic iron deficiency anemia: on oral iron supplements #GERD: on PPI and sucralfate. DVT prophylaxis: SCDs Charges/Coding Visit Charges Inpatient E&M: 28014 Subs Hosp L3
--- NOTE | 2021-06-12 11:38 | CASEMGMT ---
JUDSON ANDERSON Assessment: Face to Face with pt for initial transition planning/care coordination assessment. JUDSON ANDERSON introduced self and role at [facility], pt voices understanding and consents to assessment. Pt is A/O x4 and answers all questions appropriately at this time. Pt lying in bed in no distress with dtr at bedside. Care providers, pharmacy, and demographics verified/updated. Admitting Dx: Left hip fracture, fall PCP: [facility] Specialists: [place], cardio; Prah for iron infusions Preferred Pharmacy: [facility] while inpatient Insurance: [place] [employer] Prescription Benefit: yes LW/HPOA: Pt has a LW/DPOA and it is on file at [facility]. DPOA is dtr Ailyn Vazquez. LNOK:Ailyn Vazquez, dtr; Laury Garcia, mariam Living Arrangements: Pt lives alone in a ground level apartment with no steps to enter. Pt reports being I in ADL's prior to fall and denies concerns at home. Transportation: Pt reports she drives self and denies concerns with transportation. DME/HHC/SNF: Pt has a shower chair, 3 walkers, cane and grab bars in the bathroom. Pt states she has had [facility] and [facility] Pt has been in [facility] TCU. Pt states she is being told that she will need a SNF once dc'd from the hospital. She prefers to go back to TCU. Notified Jem JAIMES of this request. Pt states no further concerns/needs. CM to follow. Advised pt to ask CM if any further question/concerns/needs arise, voices understanding. Pt Goal: [facility] T[facility] Plan: TBD post surgery, possible [facility] TCU.
[2021-06-12 12:01] LABS: Bedside Glucose 71 mg/dL (70-110)
--- NOTE | 2021-06-12 13:50 | RAD_ITS ---
STUDY: X-RAY - PELVIS AND LEFT HIP REASON FOR EXAM: Female, 81 years old. FX TECHNIQUE: 2 views of the pelvis and hip. COMPARISON: 06/12/2021 FINDINGS: 116 seconds of fluoroscopy of the left hip is utilized trim master operator during open reduction internal fixation and 6 images are similar for interpretation.. RAD/HIP, UNI W/ Pelvis 2-3 Views IMPRESSION: Fluoroscopy during open reduction internal fixation. Electronically Signed: Yann Kaur MD at 15:31 EDT Tel , Service support ,
[2021-06-12] MEDS: Cefazolin 2 GM in 0.9% Normal Saline 100 ML IV (13:51)
--- NOTE | 2021-06-12 13:55 | PCM.CONS.GEN ---
Assessment & Plan Assessment/Plan (1) Intertrochanteric fracture of left hip: QUALIFIERS: Encounter type: initial encounter Fracture type: closed Fracture alignment: nondisplaced Qualified Code(s): S72.145A - Nondisplaced intertrochanteric fracture of left femur, initial encounter for closed fracture PLAN: Discussed with patient risk benefits alternatives of surgery patient wished to proceed with left trochanteric femoral nail long secondary to subtrochanteric nature of injury. Medically cleared. HPI Consult Data Date of Consult: 06/12/21 HPI Narrative HPI Narrative: LARRY MALDONADO, is a 81 F who presents after ground-level fall 06/11/2021 injuring left hip [facility] Medical History (Updated 06/12/21 @ 08:[address] Guicho Billy MD) Anemia Anxiety and depression Back pain due to injury CAD (coronary artery disease) CAD (coronary artery disease) Chest pain Congestive heart failure (CHF) Congestive heart failure (CHF) Current use of insulin Depression Diabetes Gastroesophageal reflux disease High cholesterol History of hemorrhoids History of stress test HLD (hyperlipidemia) HTN (hypertension) HTN (hypertension) Irritable bowel Myocardial infarct Non-smoker Non-smoker Post-menopausal Sleep apnea Type II diabetes mellitus Home Medications sertraline 100 mg PO DAILY 02/26/19 [History Last Taken 04/12/21] albuterol sulfate 2 puff INHALATION BID 06/11/20 [History Last Taken 04/11/21] atenolol 50 mg PO DAILY 06/11/20 [History Last Taken 04/12/21] atorvastatin 20 mg PO QHS 06/11/20 [History Last Taken 04/12/21] nitroglycerin 0.4 mg sublingual tablet 0.4 mg SUBLINGUAL Q5M PRN #25 tab 10/04/20 [Rx Last Taken 04/10/21] sucralfate 1 gm PO 4X/DAY #120 tab 11/01/20 [Rx Last Taken 04/12/21] isosorbide mononitrate 60 mg PO DAILY 04/12/21 [History Last Taken 04/12/21] pantoprazole 40 mg PO DAILY 04/12/21 [History Last Taken 04/12/21] acetaminophen 1,000 mg PO Q6H PRN PRN #0 tab 05/01/21 [Rx Last Taken Unknown] aspirin 81 mg PO DAILY@0800 #0 tab 05/01/21 [Rx Last Taken Unknown] lisinopril 20 mg PO DAILY 30 Days #30 tab 05/01/21 [Rx Last Taken Unknown] nitroglycerin 0.4 mg SUBLINGUAL Q5M PRN #0 tab 05/01/21 [Rx Last Taken Unknown] polysaccharide iron complex [Ferrex 150] 150 mg PO DAILYCM 30 Days #30 cap 05/01/21 [Rx Last Taken Unknown] potassium chloride [Klor-Con M20] 20 meq PO BIDCM 30 Days #60 tab 05/01/21 [Rx Last Taken Unknown] furosemide 40 mg tablet 40 mg PO DAILY #90 tab 05/30/21 [Rx Last Taken Unknown] insulin glargine U-300 conc [Toujeo SoloStar U-300 Insulin] 50 unit SUBCUT DAILY 06/12/21 [History Last Taken Unknown] Allergy/AdvReac Type Severity Reaction Status Date / Time latex Allergy Other Verified 06/12/21 01:26 Family History Father CVA (cerebral vascular accident) Mother Heart disease CAD (coronary artery disease) Sister CAD (coronary artery disease) Daughter CAD (coronary artery disease) Myocardial infarction Daughter Diabetes Surgical History (Updated 06/12/21 @ 00:46 by Roro Lopes) H/O: hysterectomy History of carpal tunnel release History of cholecystectomy History of cholecystectomy History of coronary artery stent placement History of heart artery stent History of kyphoplasty Hx of cholecystectomy Hx of knee surgery S/P hysterectomy Social History (Updated 06/11/21 @ 22:[address] Gage Mckeon MD) household members: none Smoking Status: Never smoker alcohol intake: never substance use type: does not use Physical Exam Narrative Left lower extremity without open wound there is swelling throughout her left thigh she is unable to dorsiflex her ankle or toes however she is in Jaime's traction palpable pedal pulses Const no apparent distress Lab / Micro Data Result Diagrams: 06/12/21 06:06 06/12/21 06:06 Labs: Laboratory Results - last 24 hr 06/11/21 20:43: Sodium 141, Potassium 4.9, Chloride 112 H, Carbon Dioxide 24.0, Anion Gap 5, BUN 21 H, Creatinine 0.97, Estim Creat Clear Calc 32.67, Est GFR (MDRD) Af Amer 71, Est GFR (MDRD) Non-Af 59 L, BUN/Creatinine Ratio 21.7 H, Glucose 118 H, Calcium 9.3 06/11/21 20:45: WBC 8.2, RBC 3.83 L, Hgb 10.4 L, Hct 34.1 L, MCV 89.0, MCH 27.2, MCHC 30.5 L, RDW Std Deviation 53.1 H, RDW Coeff of Aubrie 16.3 H, Plt Count 291, MPV 11.9, Immature Gran % (Auto) 1.000 H, Neut % (Auto) 63.6, Lymph % (Auto) 25.6, Weber % (Auto) 6.7, Eos % (Auto) 2.6, Baso % (Auto) 0.5, Absolute Neuts (auto) 5.2, Absolute Lymphs (auto) 2.10, Nucleated RBC % 0 06/11/21 20:45: Magnesium 2.1 06/11/21 20:45: B-Natriuretic Peptide 168.9 H 06/11/21 22:37: Blood Type O POSITIVE, Antibody Screen NEGATIVE 06/12/21 01:30: Urine Color Yellow, Urine Clarity Clear, Urine pH 5.0, Ur Specific [place] 1.010, Urine Protein 15 H, Urine Glucose (UA) Normal, Urine Ketones Negative, Urine Occult Blood Negative, Urine Nitrite Positive H, Urine Bilirubin Negative, Urine Urobilinogen Normal, Ur Leukocyte Esterase 100 H 06/12/21 06:06: WBC 14.4 H, RBC 3.49 L, Hgb 9.5 L, Hct 32.1 L, MCV 92.0, MCH 27.2, MCHC 29.6 L, RDW Std Deviation 54.8 H, RDW Coeff of Aubrie 16.2 H, Plt Count 249, MPV 11.3, Immature Gran % (Auto) 0.600, Neut % (Auto) 80.9 H, Lymph % (Auto) 10.8 L, Weber % (Auto) 5.6, Eos % (Auto) 1.8, Baso % (Auto) 0.3, Absolute Neuts (auto) 11.6 H, Absolute Lymphs (auto) 1.55, Nucleated RBC % 0 06/12/21 06:06: PT 14.1, INR 1.2, APTT 31.6 06/12/21 06:06: Sodium 138, Potassium 4.3, Chloride 111 H, Carbon Dioxide 22.0, Anion Gap 5, BUN 18, Creatinine 0.64, Estim Creat Clear Calc 48.69, Est GFR (MDRD) Af Amer 114, Est GFR (MDRD) Non-Af 94, BUN/Creatinine Ratio 28.1 H, Glucose 107 H, Calcium 8.6, Total Bilirubin 0.60, AST 21, ALT 18, Alkaline Phosphatase 97, Total Protein 6.4, Albumin 3.2, Globulin 3.2, Albumin/Globulin Ratio 1.0, TSH 0.01 L 06/12/21 06:06: Hemoglobin A1c 6.2 H 06/12/21 06:50: POC Glucose 105 06/12/21 11:51: POC Glucose 71 Micro: Microbiology 06/11/21 22:51 Mucosa - Nose SARS-CoV-2 Antigen (Rapid) - Final Radiology Impression Femur X-Ray 06/11/21 22:06 IMPRESSION: Comminuted intertrochanteric, impacted left hip fracture. at 8284 Reported and signed by: Raghav Gould MD Electronically Signed: Raghav Gould MD at 22:53 EDT Tel , Service support , Chest X-Ray 06/11/21 22:20 IMPRESSION: No acute findings in the chest. at 9476 Reported and signed by: Raghav Gould MD Electronically Signed: Raghav Gould MD at 22:55 EDT Tel , Service support , Pelvis X-Ray 06/11/21 22:20 IMPRESSION: Comminuted, impacted intertrochanteric left hip fracture. at 2253 Reported and signed by: Raghav Gould MD Electronically Signed: Raghav Gould MD at 22:53 EDT Tel , Service support , Hip X-Ray 06/12/21 00:38 IMPRESSION: Intertrochanteric left hip fracture is again noted, with decrease in the impaction and angulation status post traction. at 0200 Reported and signed by: Raghav Gould MD Electronically Signed: Raghav Gould MD at 1:59 EDT Tel , Service support ,
[2021-06-12] MEDS: Lidocaine 1% /Epi 1:100 (20ml) 20 ML Vial (15:15)
--- NOTE | 2021-06-12 15:35 | OP.PCM_ITS ---
Report of Operation Date of Procedure: 06/12/21 Description of Surgical Findings:: Preoperative diagnosis: Left hip subtrochanteric femur fracture Postoperative diagnosis: Same Procedure: Cephalo-medullary fixation left hip Implants: Synthes nail 300mm 10 mm diameter 90 mm helical blade 32 mm screw Anesthesia: General EBL: 20 Complications: None Condition: Stable to PACU Indication for procedure: 81-year-old female patient status post ground-level fall sustaining injury to hip. Fracture demonstrated subtrochanteric femur fracture pattern risk benefits and alternatives were reviewed including risk of bleeding infection nerve, artery, bone, tissue damage, blood clot need for further surgery and continued pain. Procedure: Patient met in the preoperative holding area once again the operative extremity was identified by both patient and physician and was marked. Patient was met by anesthesia and IV was started . patient was brought back to the to the operating room anesthesia was started. Patient was then positioned on the fracture table all bony prominences were well-padded. patient was then positioned with abduction internal rotation and traction and fluoroscopy was brought in to ensure that an adequate reduction could be performed. Patient was then prepped and draped in usual sterile fashion and timeout was called to ensure the proper patient procedure and extremity were being contemplated. Fluoroscopy was used to cheryl the tip of the greater trochanter and a 3 fingerbreadth incision was made 2 finger breaths proximal to the tip of the greater trochanter. Was carried carried down through the skin and subcutaneous tissue as well as the gluteal fascia. Guidepin was then inserted through the tip of the greater trochanter directed towards the level of lesser trochanter there was significant comminution this was checked in both AP and lateral projections. An opening reamer was performed. Following this was the insertion of the bent guidewire, this was placed to the level of the superior pole of the patella this was measured as a size 300 mm in length, the nail was inserted appropriate height jig was used and a triple trocar sleeve was advanced to the skin and a stab incision was made at the trocar was inserted to the level of the bone with elevation of the jig and the use of a ball spike pusher from anterior to posterior fracture was further reduced and a guidepin was placed into the femoral neck and head checked on both AP and lateral projections. This was then measured and appropriately sized helical blade was inserted the nail was locked proximally the fracture was compressed and a locking screw was placed distally in the nail using a perfect [place] techniqueThis was then drilled and measured under fluoroscopy and the appropriate size screw was inserted. Final AP and lateral projections were saved to the PACS system of the entire construct the wo unds were thoroughly irrigated the fascia was closed with #1 [id number] Vicryls followed by 2-0 Vicryl in the subcutaneous tissues followed by ramakrishna in the skin. 0.5% Marcaine with epinephrine was injected into the subcutaneous tissues dressing was applied form of Xeroform 4 x 4 ABD and Ioban tape. Patient tolerated procedure well there is no intraoperative complications and was brought back to the PACU in stable condition.
--- NOTE | 2021-06-12 15:52 | CHAPLAIN ---
Type of Pastoral Visit _x__ Initial Visit ___ Follow-up Visit ___ On-call Visit ___ General Patient Visit ___ Spiritual Assessment ___ Family Conference ___ Bereavement ___ Rapid Response ___ Code Blue ___ Other (describe below) Pastoral Care Referral From _x__ Patient ___ Family ___ Nurse ___ Physician ___ Mainframe Systems Administrator ___ Aircraft Assembler ___ Other (describe below) Sacrament/Intervention _x__ Active listening ___ Anointing ___ Lutheran ___ Bereavement ___ Communion _x__ Marai C exploration ___ _x__ Life review _x__ Prayer ___ Reconciliation ___ Sacrament of Sick _x__ Supportive presence ___ Wedding ___ Other (describe below) Pastoral Comments pre surgery conversation and prayer time; daughter is also with her
[2021-06-12] MEDS: Cefazolin 1 GM/50 ML BAG IV (15:54)
[2021-06-12 16:41] LABS: Bedside Glucose 92 mg/dL (70-110)
[2021-06-12 21:41] LABS: Bedside Glucose 128 mg/dL (70-110)
[2021-06-13] VITALS (19 sets, daily range): BP systolic 123–155; BP diastolic 34–60; PULSE 63–90; RESP 16–18; TEMP 36.4–37.3; O2SAT 94–97
[2021-06-13] MEDS: Cefazolin 1 GM/50 ML BAG IV ×2 (00:29→07:51)
[2021-06-13] MEDS: 0.9% Normal Saline 1,000 ML 100 ML IV ×2 (02:44→18:55)
[2021-06-13] MEDS: Acetaminophen 325 MG Tablet 650 MG PO ×4 (03:02→22:01)
[2021-06-13] MEDS: APIXABAN 2.5 MG TABLET PO ×2 (06:43→21:56)
[2021-06-13] MEDS: Sucralfate 1 GM Tablet PO ×4 (06:43→21:56)
[2021-06-13 06:46] LABS: Bedside Glucose 134 mg/dL (70-110)
[2021-06-13 06:50] LABS: Absolute Lymphocyte Count 1.16 X10^3/uL (0.83-4.51); Absolute Neutrophil Count 8.6 X10^3/uL (2.0-7.7); Basophil# 0.04 X10^3/uL; Basophil% 0.4 % (0-1); Eosinophil# 0.63 X10^3/uL; Eosinophils% 5.6 % (0-5); Hematocrit 23.9 % (37-47); Hemoglobin 7.2 g/dL (12.0-15.0); Lymphocyte # 1.16 X10^3/ul (0.83-4.51); Lymphocyte % 10.3 % (19-41); Mean Corp Hgb Conc 30.1 g/dL (32-36); Mean Corpuscular Hgb 27.9 pg (27.0-32.0); Mean Corpuscular Volume 92.6 fL (81-99); Mean Platelet Vol. 11.6 fl (6.2-12.0); Monocyte# 0.75 X10^3/uL; Monocyte% 6.7 % (0-10); NRBC Flagged by Analyzer 0 % (0-5); Neutrophil % 76.5 % (47-70); Platelet Count 189 K/mm3 (150-450); RBC Distribution Width CV 16.4 % (11.6-14.6); RBC Distribution Width SD 56.4 fl (35.1-43.9); Red Blood Count 2.58 M/mm3 (4.2-5.4); White Blood Count 11.2 K/mm3 (4.4-11.0)
[2021-06-13] MEDS: Albuterol 2.5 MG/3 ML VIAL.NEB. INHALATION (07:11)
[2021-06-13 07:15] LABS: Anion Gap 6 (5-15); BUN 13 mg/dL (7-18); Calcium,Total 7.9 mg/dL (8.5-10.1); Chloride 112 mmol/L (98-107); Creatinine, Serum 0.59 mg/dL (0.55-1.02); EST Glomerular Filtration Rate 104 mL/min (>60); Est Glom Filt Rate - Afr Amer 126 mL/min (>60); Estimated Creatinine Clearance 31.69 ml/min; Glucose 135 mg/dL (74-106); Sodium Level 141 mmol/L (136-145)
[2021-06-13] MEDS: Isosorbide Mononitrate 60 MG Tablet PO (08:19)
[2021-06-13] MEDS: Lisinopril 20 MG Tablet PO (08:19)
[2021-06-13] MEDS: Aspirin E.C. 81 MG Tablet PO (08:19)
[2021-06-13] MEDS: Potassium Chloride Oral Tablet 20 MEQ PO ×2 (08:20→18:17)
[2021-06-13] MEDS: Furosemide 40 MG Tablet PO (08:20)
[2021-06-13] MEDS: Atenolol 50 MG Tablet PO (08:20)
[2021-06-13] MEDS: Pantoprazole Sodium 40 MG Tablet PO (08:20)
[2021-06-13] MEDS: Sertraline 100 MG Tablet PO (08:21)
--- NOTE | 2021-06-13 10:05 | CASEMGMT ---
Social Work Note SW updated that pt is requesting [facility] at discharge. SW placed a call to Amy with TCU and provided referral. TCU is able to accept pt pending pre-cert. SW in to speak with pt. SW informed pt that [facility] T[facility] is able to accept pt pending pre-cert. Patient was provided a list of SNF providers including quality and resource use data and consistent with the patient?s preferred geographic region, medical needs, and insurance network. Plan: TCU pending pre-cert Sharyn Hernández MSW, FINE UNHAIRER
[2021-06-13] MEDS: Iron Polysaccharide Complex 150 MG CAPSULE PO (10:35)
[2021-06-13 10:36] LABS: Bedside Glucose 161 mg/dL (70-110)
[2021-06-13] MEDS: Insulin Lispro 100 UNIT/ML INSULN.PEN SC (10:42)
--- NOTE | 2021-06-13 13:06 | PN.HOSP_ITS ---
Subjective Subjective Patient seen and examined. She complained of pain at the site of surgery. Review of systems otherwise negative. Hemoglobin has dropped to 7.2 today. She has otherwise remained hemodynamically stable. Objective Data Objective Data Vital Signs: Vital Signs Temp Pulse Resp BP Pulse Ox 98.1 F 64 18 130/50 H 95 06/13/21 13:00 06/13/21 13:00 06/13/21 13:00 06/13/21 13:00 06/13/21 11:01 Oxygen Flow Rate (L/min) 1 Oxygen Delivery Method Nasal Cannula Weight: 158 lb 1.143 oz Body Mass Index (BMI) 30.1 Intake & Output: Intake and Output for Last 24 Hours 06/11/21 06/12/21 06/13/21 23:59 23:59 23:59 Intake Total 2961.67 / 2961.67 2131.67 / 2131.67 Output Total 1175 / 1525 625 / 625 Balance 1786.67 / 1436.67 1506.67 / 1506.67 Lab / Micro Data Result Diagrams: 06/13/21 06:24 06/13/21 06:24 Labs: Laboratory Results - last 24 hr 06/11/21 22:37: Crossmatch See Detail 06/12/21 16:38: POC Glucose 92 06/12/21 21:27: POC Glucose 128 H 06/13/21 06:24: WBC 11.2 H, RBC 2.58 L, Hgb 7.2 L, Hct 23.9 L, MCV 92.6, MCH 27.9, MCHC 30.1 L, RDW Std Deviation 56.4 H, RDW Coeff of Aubire 16.4 H, Plt Count 189, MPV 11.6, Immature Gran % (Auto) 0.500, Neut % (Auto) 76.5 H, Lymph % (Auto) 10.3 L, [place] % (Auto) 6.7, Eos % (Auto) 5.6 H, Baso % (Auto) 0.4, Absolute Neuts (auto) 8.6 H, Absolute Lymphs (auto) 1.16, Nucleated RBC % 0 06/13/21 06:24: Sodium 141, Potassium 4.0, Chloride 112 H, Carbon Dioxide 23.0, Anion Gap 6, BUN 13, Creatinine 0.59, Estim Creat Clear Calc 31.69, Est GFR (MDRD) Af Amer 126, Est GFR (MDRD) Non-Af 104, BUN/Creatinine Ratio 22.0 H, Glucose 135 H, Calcium 7.9 L 06/13/21 06:39: POC Glucose 134 H 06/13/21 10:32: POC Glucose 161 H Micro: Microbiology 06/12/21 01:30 Urine Catheter - Frausto Urine Culture - Preliminary GNR 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 Electronically Signed: Yann Kaur MD at 15:31 EDT Tel , Service support , Physical Exam Const alert, oriented x3 and no apparent distress Exam Limitations: no limitations HEENT head/scalp atraumatic and moist oral mucous membranes Head and Scalp: normocephalic Eyes PERRL, EOMs intact bilaterally and conjunctivae normal Neck no lymphadenopathy Resp normal respiratory effort, no retractions, no use of accessory muscles and clear to auscultation bilaterally Cardio regular rate, regular rhythm, S1 normal heart sound, S2 normal heart sound and no murmurs GI normal to inspection, nondistended, normoactive bowel sounds, soft to palpation, non-tender and non-distended Extremity Extremity Narrative: intact dressing over left hip at surgical site Peripheral Pulses: Yes pulses 2+ throughout Skin no rashes or lesions noted Neuro oriented x3 and CN's II-XII intact bilaterally Sensorium / Orientation: awake and alert Psych affect normal Assessment & Plan Assessment/Plan (1) Intertrochanteric fracture of left hip: QUALIFIERS: Encounter type: initial encounter Fracture type: closed Fracture alignment: nondisplaced Qualified Code(s): S72.145A - Nondisplaced intertrochanteric fracture of left femur, initial encounter for closed fracture PLAN: #Left hip intertrochanteric fracture * due to mechanical fall * s/p left cephalomedullary nailing * today is POD 1 * on IV oxycodone, PO tylenol and IV morphine prn for pain * PT/OT on board. Fall precautions * incentive spirometry * #History of CHF * not in exacerbation. * on PO lasix 40mg daily. * #CAD s/p stents; on aspirin, atenolol, imdur and lisinopril * #Diabetes mellitus * on lantus 40 units daily. * ISS. accuchecks ACHS * #Hypertension: on atenolol and lisinopril #Depression; on sertraline #Chronic iron deficiency anemia: on oral iron supplements #GERD: on PPI and sucralfate. DVT prophylaxis:on eliquis 2.5mg bid. Disposition: will need placement. Charges/Coding Visit Charges Inpatient E&M: 39521 Subs Hosp L2
[2021-06-13 15:50] LABS: Bedside Glucose 147 mg/dL (70-110)
--- NOTE | 2021-06-13 16:29 | NURSING ---
Alisha TOLENTINO applied knee high hose on.
--- NOTE | 2021-06-13 16:52 | PCM.PN.ORT ---
Subjective Subjective Seen and examined family at bedside was in unable to improve form ambulation with therapy secondary to weakness and pain. No fever chills nausea vomiting shortness of breath or chest pain she is currently being transfused packed red blood cells Objective Data Objective Data Vital Signs: Vital Signs Temp Pulse Resp BP Pulse Ox 98.1 F 70 18 140/40 H 95 06/13/21 16:22 06/13/21 16:22 06/13/21 16:22 06/13/21 16:22 06/13/21 14:15 Oxygen Flow Rate (L/min) 1 Oxygen Delivery Method Nasal Cannula Weight: 158 lb 1.143 oz Body Mass Index (BMI) 30.1 Intake & Output: Intake and Output for Last 24 Hours 06/11/21 06/12/21 06/13/21 23:59 23:59 23:59 Intake Total 2961.67 / 2961.67 2431.67 / 2431.67 Output Total 1175 / 1525 800 / 800 Balance 1786.67 / 1436.67 1631.67 / 1631.67 Lab / Micro Data Result Diagrams: 06/13/21 06:24 06/13/21 06:24 Labs: Laboratory Results - last 24 hr 06/11/21 22:37: Crossmatch See Detail 06/12/21 21:27: POC Glucose 128 H 06/13/21 06:24: WBC 11.2 H, RBC 2.58 L, Hgb 7.2 L, Hct 23.9 L, MCV 92.6, MCH 27.9, MCHC 30.1 L, RDW Std Deviation 56.4 H, RDW Coeff of Aubrie 16.4 H, Plt Count 189, MPV 11.6, Immature Gran % (Auto) 0.500, Neut % (Auto) 76.5 H, Lymph % (Auto) 10.3 L, [place] % (Auto) 6.7, Eos % (Auto) 5.6 H, Baso % (Auto) 0.4, Absolute Neuts (auto) 8.6 H, Absolute Lymphs (auto) 1.16, Nucleated RBC % 0 06/13/21 06:24: Sodium 141, Potassium 4.0, Chloride 112 H, Carbon Dioxide 23.0, Anion Gap 6, BUN 13, Creatinine 0.59, Estim Creat Clear Calc 31.69, Est GFR (MDRD) Af Amer 126, Est GFR (MDRD) Non-Af 104, BUN/Creatinine Ratio 22.0 H, Glucose 135 H, Calcium 7.9 L 06/13/21 06:39: POC Glucose 134 H 06/13/21 10:32: POC Glucose 161 H 06/13/21 15:44: POC Glucose 147 H Micro: Microbiology 06/12/21 01:30 Urine Catheter - Frausto Urine Culture - Preliminary GNR 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 06/11/21 22:51 Mucosa - Nose SARS-CoV-2 Antigen (Rapid) - Final Physical Exam Extremity Extremity Narrative: Dressing clean dry intact compartment soft palpable pedal pulses today able to wiggle toes and slightly dorsiflex Assessment & Plan Assessment/Plan (1) Intertrochanteric fracture of left hip: QUALIFIERS: Encounter type: initial encounter Fracture type: closed Fracture alignment: nondisplaced Qualified Code(s): S72.145A - Nondisplaced intertrochanteric fracture of left femur, initial encounter for closed fracture PLAN: PT OT weightbearing as tolerated Pain control Eliquis 2.5 mg twice daily for 21 days postoperatively [place] to be removed 14 to 17 days postop May follow-up in office in 2 weeks for wound check and staple removal Patient needs rehab she is frail and weak and lives alone Dressing to remain undisturbed for 72 hours postoperatively then should be removed before for shower and change daily at that point.
[2021-06-13] MEDS: Atorvastatin Calcium 20 MG Tablet PO (21:56)
[2021-06-13] MEDS: MELATONIN 3 MG TABLET PO (22:01)
[2021-06-13 22:06] LABS: Bedside Glucose 112 mg/dL (70-110)
[2021-06-14] VITALS (12 sets, daily range): BP systolic 126–155; BP diastolic 31–48; PULSE 60–87; RESP 16–19; TEMP 36.4–37.3; O2SAT 93–97
[2021-06-14] MEDS: 0.9% Normal Saline 1,000 ML 100 ML IV (05:30)
[2021-06-14] MEDS: Sucralfate 1 GM Tablet PO ×3 (06:49→15:36)
[2021-06-14 07:25] LABS: Bedside Glucose 67 mg/dL (70-110)
[2021-06-14 07:25] LABS: Bedside Glucose 64 mg/dL (70-110)
[2021-06-14 07:25] LABS: Bedside Glucose 76 mg/dL (70-110)
[2021-06-14] MEDS: Albuterol 2.5 MG/3 ML VIAL.NEB. INHALATION (08:15)
[2021-06-14] MEDS: Potassium Chloride Oral Tablet 20 MEQ PO ×2 (08:16→17:17)
[2021-06-14] MEDS: Aspirin E.C. 81 MG Tablet PO (08:16)
[2021-06-14] MEDS: Iron Polysaccharide Complex 150 MG CAPSULE PO (08:16)
[2021-06-14] MEDS: oxyCODONE 5 MG Tablet PO ×2 (08:18→13:39)
[2021-06-14 08:20] LABS: Absolute Lymphocyte Count 1.21 X10^3/uL (0.83-4.51); Absolute Neutrophil Count 7.9 X10^3/uL (2.0-7.7); Basophil# 0.03 X10^3/uL; Basophil% 0.3 % (0-1); Eosinophil# 0.61 X10^3/uL; Eosinophils% 5.8 % (0-5); Hematocrit 30.3 % (37-47); Hemoglobin 9.6 g/dL (12.0-15.0); Lymphocyte # 1.21 X10^3/ul (0.83-4.51); Lymphocyte % 11.4 % (19-41); Mean Corp Hgb Conc 31.7 g/dL (32-36); Mean Corpuscular Hgb 28.2 pg (27.0-32.0); Mean Corpuscular Volume 88.9 fL (81-99); Mean Platelet Vol. 11.4 fl (6.2-12.0); Monocyte# 0.69 X10^3/uL; Monocyte% 6.5 % (0-10); NRBC Flagged by Analyzer 0 % (0-5); Neutrophil # 7.93 X10^3/uL (2.7-7.7); Neutrophil % 75.1 % (47-70); Platelet Count 166 K/mm3 (150-450); RBC Distribution Width CV 15.8 % (11.6-14.6); RBC Distribution Width SD 51.7 fl (35.1-43.9); Red Blood Count 3.41 M/mm3 (4.2-5.4); White Blood Count 10.6 K/mm3 (4.4-11.0)
[2021-06-14 08:48] LABS: Anion Gap 5 (5-15); BUN 9 mg/dL (7-18); BUN/Creat Ratio 19.9 RATIO (10-20); Chloride 110 mmol/L (98-107); Creatinine, Serum 0.45 mg/dL (0.55-1.02); EST Glomerular Filtration Rate 141 mL/min (>60); Est Glom Filt Rate - Afr Amer 171 mL/min (>60); Estimated Creatinine Clearance 31.69 ml/min; Glucose 123 mg/dL (74-106); Potassium 3.2 mmol/L (3.5-5.1); Sodium Level 139 mmol/L (136-145)
[2021-06-14] MEDS: Acetaminophen 325 MG Tablet 650 MG PO ×2 (10:29→15:53)
[2021-06-14] MEDS: Lisinopril 20 MG Tablet PO (10:29)
[2021-06-14] MEDS: Atenolol 50 MG Tablet PO (10:29)
[2021-06-14] MEDS: APIXABAN 2.5 MG TABLET PO (10:29)
[2021-06-14] MEDS: Sertraline 100 MG Tablet PO (10:29)
[2021-06-14] MEDS: Isosorbide Mononitrate 60 MG Tablet PO (10:29)
[2021-06-14] MEDS: Pantoprazole Sodium 40 MG Tablet PO (10:29)
[2021-06-14] MEDS: Furosemide 40 MG Tablet PO (10:29)
--- NOTE | 2021-06-14 11:43 | PN.HOSP_ITS ---
Subjective Subjective Patient seen and examined. She complains of pain in her left hip, at surgical site, especially with moving. Review of systems is otherwise negative. She has remained hemodynamically stable. Objective Data Objective Data Vital Signs: Vital Signs Temp Pulse Resp BP Pulse Ox 99.1 F 71 19 H 143/46 H 97 06/14/21 08:03 06/14/21 08:14 06/14/21 08:14 06/14/21 08:03 06/14/21 09:43 Oxygen Flow Rate (L/min) 1 Oxygen Delivery Method Room Air Weight: 160 lb 14.999 oz Body Mass Index (BMI) 30.1 Intake & Output: Intake and Output for Last 24 Hours 06/12/21 06/13/21 06/14/21 23:59 23:59 23:59 Intake Total 2961.67 / 2961.67 2431.67 / 2431.67 1000 / 1000 Output Total 1175 / 1525 1180 / 1580 700 / 700 Balance 1786.67 / 1436.67 1251.67 / 851.67 300 / 300 Lab / Micro Data Result Diagrams: 06/14/21 08:10 06/14/21 08:10 Labs: Laboratory Results - last 24 hr 06/11/21 22:37: Crossmatch See Detail 06/13/21 15:44: POC Glucose 147 H 06/13/21 21:57: POC Glucose 112 H 06/14/21 06:52: POC Glucose 67 L 06/14/21 07:02: POC Glucose 64 L 06/14/21 07:10: POC Glucose 76 06/14/21 08:10: WBC 10.6, RBC 3.41 L, Hgb 9.6 L, Hct 30.3 L, MCV 88.9, MCH 28.2, MCHC 31.7 L D, RDW Std Deviation 51.7 H, RDW Coeff of [place]rie 15.8 H, Plt Count 166, MPV 11.4, Immature Gran % (Auto) 0.900, Neut % (Auto) 75.1 H, Lymph % (Auto) 11 .4 L, [place] % (Auto) 6.5, Eos % (Auto) 5.8 H, Baso % (Auto) 0.3, Absolute Neuts (auto) 7.9 H, Absolute Lymphs (auto) 1.21, Nucleated RBC % 0 06/14/21 08:10: Sodium 139, Potassium 3.2 L, Chloride 110 H, Carbon Dioxide 24.0, Anion Gap 5, BUN 9, Creatinine 0.45 L, Estim Creat Clear Calc 31.69, Est GFR (MDRD) Af Amer 171, Est GFR (MDRD) Non-Af 141, BUN/Creatinine Ratio 19.9, Glucose 123 H, Calcium 8.0 L Micro: Microbiology 06/12/21 01:30 Urine Catheter - Frausto Urine Culture - Final Klebsiella pneumoniae sp pneum 06/11/21 22:51 Mucosa - Nose SARS-CoV-2 Antigen (Rapid) - Final Physical Exam Const alert, oriented x3 and no apparent distress Exam Limitations: no limitations HEENT head/scalp atraumatic and moist oral mucous membranes Head and Scalp: normocephalic Eyes PERRL, EOMs intact bilaterally and conjunctivae normal Neck no lymphadenopathy Resp normal respiratory effort, no retractions, no use of accessory muscles and clear to auscultation bilaterally Cardio regular rate, regular rhythm, S1 normal heart sound, S2 normal heart sound and no murmurs GI normal to inspection, nondistended, normoactive bowel sounds, soft to palpation, non-tender and non-distended Extremity Extremity Narrative: intact dressing over left hip at surgical site Peripheral Pulses: Yes pulses 2+ throughout Skin no rashes or lesions noted Neuro oriented x3 and CN's II-XII intact bilaterally Sensorium / Orientation: awake and alert Psych affect normal Assessment & Plan Assessment/Plan (1) Intertrochanteric fracture of left hip: QUALIFIERS: Encounter type: initial encounter Fracture alignment: nondisplaced Fracture type: closed Qualified Code(s): S72.145A - Nondisplaced intertrochanteric fracture of left femur, initial encounter for closed fracture PLAN: #Left hip intertrochanteric fracture * due to mechanical fall * s/p left cephalomedullary nailing * today is POD 2 * on IV oxycodone, PO tylenol and IV morphine prn for pain * PT/OT on board. Fall precautions * incentive spirometry * * #Acute on chronic anemia * likely due to acute blood loss from surgery * Hb dropped to 7.2 today, from 9.6 the day before * s/p transfusion of 2 units of PRBCs * Hb today is 9.6 * will trend and monitor * #History of CHF * not in exacerbation. * on PO lasix 40mg daily. * #CAD s/p stents; on aspirin, atenolol, imdur and lisinopril * #Diabetes mellitus * on lantus 40 units daily. * ISS. accuchecks ACHS * #Hypertension: on atenolol and lisinopril #Depression; on sertraline #Chronic iron deficiency anemia: on oral iron supplements #GERD: on PPI and sucralfate. DVT prophylaxis:on eliquis 2.5mg bid. Disposition: awaiting placement. Charges/Coding Visit Charges Inpatient E&M: 54789 Subs Hosp L2
[2021-06-14] MEDS: Insulin Lispro 100 UNIT/ML INSULN.PEN SC (11:53)
[2021-06-14 12:05] LABS: Bedside Glucose 157 mg/dL (70-110)
--- NOTE | 2021-06-14 13:12 | PCM.PN.CARD ---
Subjective Subjective The awake and alert. Her main concern is her surgical site discomfort and being able to be up and ambulating. She has no other new acute cardiovascular concerns. Objective Data Vital Signs: Vital Signs Temp Pulse Resp BP Pulse Ox 99.1 F 71 19 H 143/46 H 97 06/14/21 08:03 06/14/21 08:14 06/14/21 08:14 06/14/21 08:03 06/14/21 09:43 Oxygen Flow Rate (L/min) 1 Oxygen Delivery Method Room Air Weight: 160 lb 14.999 oz Body Mass Index (BMI) 30.1 Intake & Output: Intake and Output for Last 24 Hours 06/12/21 06/13/21 06/14/21 23:59 23:59 23:59 Intake Total 2961.67 / 2961.67 2431.67 / 2431.67 1800 / 1800 Output Total 1175 / 1525 1180 / 1580 1300 / 1300 Balance 1786.67 / 1436.67 1251.67 / 851.67 500 / 500 Lab / Micro Data Result Diagrams: 06/14/21 08:10 06/14/21 08:10 Labs: Laboratory Results - last 24 hr 06/11/21 22:37: Crossmatch See Detail 06/13/21 15:44: POC Glucose 147 H 06/13/21 21:57: POC Glucose 112 H 06/14/21 06:52: POC Glucose 67 L 06/14/21 07:02: POC Glucose 64 L 06/14/21 07:10: POC Glucose 76 06/14/21 08:10: WBC 10.6, RBC 3.41 L, Hgb 9.6 L, Hct 30.3 L, MCV 88.9, MCH 28.2, MCHC 31.7 L D, RDW Std Deviation 51.7 H, RDW Coeff of [place] 15.8 H, Plt Count 166, MPV 11.4, Immature Gran % (Auto) 0.900, Neut % (Auto) 75.1 H, Lymph % (Auto) 11.4 L, [place] % (Auto) 6.5, Eos % (Auto) 5.8 H, Baso % (Auto) 0.3, Absolute Neuts (auto) 7.9 H, Absolute Lymphs (auto) 1.21, Nucleated RBC % 0 06/14/21 08:10: Sodium 139, Potassium 3.2 L, Chloride 110 H, Carbon Dioxide 24.0, Anion Gap 5, BUN 9, Creatinine 0.45 L, Estim Creat Clear Calc 31.69, Est GFR (MDRD) Af Amer 171, Est GFR (MDRD) Non-Af 141, BUN/Creatinine Ratio 19.9, Glucose 123 H, Calcium 8.0 L 06/14/21 11:50: POC Glucose 157 H Micro: Microbiology 06/12/21 01:30 Urine Catheter - Frausto Urine Culture - Final Klebsiella pneumoniae sp pneum Cardiology Labs/Tests 06/14/21 08:10: WBC 10.6, RBC 3.41 L, Hgb 9.6 L, Hct 30.3 L, MCV 88.9, MCH 28.2, MCHC 31.7 L D, Plt Count 166, MPV 11.4, Immature Gran % (Auto) 0.900, Neut % (Auto) 75.1 H, Lymph % (Auto) 11.4 L, [place] % (Auto) 6.5, Eos % (Auto) 5.8 H, Baso % (Auto) 0.3, Absolute Neuts (auto) 7.9 H, Nucleated RBC % 0 06/14/21 08:10: Sodium 139, Potassium 3.2 L, Chloride 110 H, Carbon Dioxide 24.0, Anion Gap 5, BUN 9, Creatinine 0.45 L, Est GFR (MDRD) Af Amer 171, Est GFR (MDRD) Non-Af 141, BUN/Creatinine Ratio 19.9, Glucose 123 H, Calcium 8.0 L Physical Exam Const alert, oriented x3 and no apparent distress Orientation / Consciousness: awake HEENT normocephalic, head/scalp atraumatic and hearing grossly normal bilaterally Eyes PERRL and EOMs intact bilaterally Neck supple and no JVD Resp clear to auscultation bilaterally Cardio regular rate, regular rhythm, S1 normal heart sound and S2 normal heart sound GI normal to inspection, nondistended, normoactive bowel sounds Extremity no pedal edema Skin no rashes or lesions noted Neuro oriented x3 Psych mental status grossly normal Assessment & Plan Assessment/Plan (1) CAD (coronary artery disease): QUALIFIERS: Coronary Disease-Associated Artery/Lesion type: [place] artery [place] vs. transplanted heart: [place] heart Associated angina: without angina Qualified Code(s): I25.10 - Atherosclerotic heart disease of [place] coronary artery without angina pectoris PLAN: At the present time she appears to doing well with no acute symptoms or adverse events. She should continue medical management and follow-up. (2) History of coronary artery stent placement: PLAN: She has a history of previous PCI. Again she appears to be doing well at this time with no acute symptoms or adverse events. She will continue medical therapy. (3) Ischemic cardiomyopathy: PLAN: She has undergone noninvasive and invasive valuation as noted in the past. She appears to be stable with no acute symptoms. She will continue medical therapy. (4) Congestive heart failure (CHF): QUALIFIERS: Heart failure type: diastolic Heart failure chronicity: chronic Qualified Code(s): I50.32 - Chronic diastolic (congestive) heart failure PLAN: She does not appear to have any ongoing acute on chronic diastolic mediated CHF issues at this time. She will continue medical therapy and follow-up. (5) Hyperlipidemia: QUALIFIERS: Hyperlipidemia type: unspecified Qualified Code(s): E78.5 - Hyperlipidemia, unspecified PLAN: She should continue risk factor evaluation care as tolerated. (6) HTN (hypertension): QUALIFIERS: Hypertension type: unspecified Qualified Code(s): I10 - Essential (primary) hypertension PLAN: Her blood pressure will need to be followed and her medications can be adjusted accordingly. (7) Intertrochanteric fracture of left hip: QUALIFIERS: Encounter type: initial encounter Fracture type: closed Fracture alignment: nondisplaced Qualified Code(s): S72.145A - Nondisplaced intertrochanteric fracture of left femur, initial encounter for closed fracture PLAN: From a cardiac standpoint she appears to be stable. It does not appear she has experienced any adverse cardiovascular events from her noncardiac surgical procedure. She will continue cardiovascular medical therapy as deemed appropriate. In the interim she will continue to follow with internal medicine and orthopedic surgery. Addt'l Comments At the present time she will continue cardiovascular medical therapy as deemed appropriate. She will be asked to have future outpatient cardiovascular follow-up as previously scheduled barring unforeseen change in her clinical course in the interim. In the meantime she will continue under the care of internal medicine and orthopedic surgery. This note was generated using a voice recognition system and there may be incorrect words, spelling or punctuation that were not noted when reviewing the office note prior to saving.
--- NOTE | 2021-06-14 15:15 | CASEMGMT ---
Social Work Note SW received call from Amy with TCU stating pt was approved for TCU, can discharge to TCU today. SW updated physician. Pt to discharge to TCU today. SW in to speak with pt. SW updated pt that approval was obtained for TCU and pt will discharge there today. Pt states her daughter will be getting off work soon and should be coming to [facility] to see pt. SW informed pt that this worker can also give pt's daughter a call, pt states understanding. THEODORE placed a call to pt's daughter Ailyn, who is HCPOA for pt, and updated her on approval and discharge to TCU. Ailyn states understanding. Plan: TCU today Sharyn Hernández SLICING MACHINE OPERATOR, PUBLIC WORKS TECHNICIAN
--- NOTE | 2021-06-14 15:49 | DS.PCM_ITS ---
Providers Date of Admission: 06/11/21 Primary Care Physician: Dr. Riley Roca MD Consultations 06/12/21 00:11 Consult: Cardiology Routine Consulting Provider: Guicho Billy Reason for Consult: Admit L hip fracture, CAD s/p PCI, CHF Hx, cardiac preop EMERGENT Consult: No Notified: Yes Date Notified: 06/11/21 Time Notified: 23:14 Method of Notification: cortext Consult: Orthopedics Routine Consulting Provider: Pratik Tavarez Reason for Consult: L hip fracture EMERGENT Consult: No Notified: Yes Date Notified: 06/11/21 Time Notified: 23:14 Method of Notification: ED called Reason For Visit: LEFT HIP FRACTURE, FALL Diagnosis Discharge Diagnosis (1) CAD (coronary artery disease): Status: Acute Code(s): I25.10 - Atherosclerotic heart disease of [place] coronary artery without angina pectoris Qualifiers: Associated angina: without angina Coronary Disease-Associated Artery/Lesion type: [place] artery [place] vs. transplanted heart: [place] heart Qualified Code(s): I25.10 - Atherosclerotic heart disease of [place] coronary artery without angina pectoris (2) History of coronary artery stent placement: Status: Chronic Code(s): Z95.5 - Presence of coronary angioplasty implant and graft (3) Ischemic cardiomyopathy: Status: Chronic Code(s): I25.5 - Ischemic cardiomyopathy (4) Congestive heart failure (CHF): Status: Acute Code(s): I50.9 - Heart failure, unspecified Qualifiers: Heart failure chronicity: chronic Heart failure type: diastolic Qualified Code(s): I50.32 - Chronic diastolic (congestive) heart failure (5) Hyperlipidemia: Status: Acute Code(s): E78.5 - Hyperlipidemia, unspecified Qualifiers: Hyperlipidemia type: unspecified Qualified Code(s): E78.5 - Hyperlipidemia, unspecified (6) HTN (hypertension): Status: Chronic Code(s): I10 - Essential (primary) hypertension Qualifiers: Hypertension type: unspecified Qualified Code(s): I10 - Essential (primary) hypertension (7) Intertrochanteric fracture of left hip: Status: Acute Code(s): S72.142A - Displaced intertrochanteric fracture of left femur, initial encounter for closed fracture Qualifiers: Encounter type: initial encounter Fracture alignment: nondisplaced Fr acture type: closed Qualified Code(s): S72.145A - Nondisplaced intertrochanteric fracture of left femur, initial encounter for closed fracture Medications at Discharge Home Medications sertraline 100 mg PO DAILY 02/26/19 albuterol sulfate 2 puff INHALATION BID 06/11/20 atenolol 50 mg PO DAILY 06/11/20 atorvastatin 20 mg PO QHS 06/11/20 nitroglycerin 0.4 mg sublingual tablet 0.4 mg SUBLINGUAL Q5M PRN #25 tab 10/04/20 sucralfate 1 gm PO 4X/DAY #120 tab 11/01/20 isosorbide mononitrate 60 mg PO DAILY 04/12/21 pantoprazole 40 mg PO DAILY 04/12/21 acetaminophen 1,000 mg PO Q6H PRN PRN #0 tab 05/01/21 aspirin 81 mg PO DAILY@0800 #0 tab 05/01/21 lisinopril 20 mg PO DAILY 30 Days #30 tab 05/01/21 nitroglycerin 0.4 mg SUBLINGUAL Q5M PRN #0 tab 05/01/21 polysaccharide iron complex [Ferrex 150] 150 mg PO DAILYCM 30 Days #30 cap 05/01/21 potassium chloride [Klor-Con M20] 20 meq PO BIDCM 30 Days #60 tab 05/01/21 furosemide 40 mg tablet 40 mg PO DAILY #90 tab 05/30/21 Toujeo SoloStar U-300 Insulin 50 unit SUBCUT DAILY 06/12/21 apixaban 2.5 mg PO BID #42 tab 06/14/21 oxycodone 5 mg PO Q6H PRN 5 Days #20 tab 06/14/21 Hospital Course Operations - (left hip cephalo-medullary fixation) Procedures None Summary of Care Provided Minutes Spent on Discharge: 40 Hospital Course: Patient is an 81 y/o with a PMH as outlined who was admitted via the ED on 06/11/2021 with a complaint of left hip pain after she landed on her left side, after she fell whilst trying to crab picker something in her laundry room. On admission, she was found to have a comminuted intertrochanteric impacted left hip fracture. CXR showed no acteu cardiopulmonary findings. EKG showed no acute ST changes. Rapid covid test was negative. She was admitted and managed for comminuted impacted left hip fracture due to mechanical fall. Orthopedic surgery was consulted. Cardiology was also consulted for medical clearance. Patient had left hip cephalomedullary fixation on 06/12/2021. She tolerated the procedure well. Postop course was complicated by acute on chronic anemia due to acute blood loss. Hemoglobin dropped to 7.2 from 9.6. She was therefore transfused with 2 units of packed red blood cells and hemoglobin came up to 9.6. She did work with physical and Occupational Therapy. She remained stable and was discharged to a care home facility on 06/14/2021. She was discharged on PO eliquis 2.5mg bid x 3 weeks, and also given a script of PO o xycodone 5mg every 6 hours as needed x 20 tabs, with zero refills. OARRS score was checked, but no red flags were seen. Patient seen and examined prior to discharge. She complained of some pain in the left hip due to working with physical therapy. Review of systems was otherwise negative. Labs and vitals reviewed and reconciled. Physical Exam Const alert, oriented x3 and no apparent distress General Appearance: cooperative and comfortable Exam Limitations: no limitations HEENT normocephalic, head/scalp atraumatic and moist oral mucous membranes Eyes PERRL, EOMs intact bilaterally and conjunctivae normal Neck no lymphadenopathy Resp normal respiratory effort, no retractions, no use of accessory muscles and clear to auscultation bilaterally Cardio regular rate, regular rhythm, S1 normal heart sound, S2 normal heart sound and no murmurs GI normal to inspection, nondistended, normoactive bowel sounds, soft to palpation, non-tender and non-distended Extremity Extremity Narrative: intact dressing over left hip at surgical site Skin no rashes or lesions noted Neuro oriented x3 and CN's II-XII intact bilaterally Sensorium / Orientation: awake and alert Psych affect normal Weight / BMI Weight Weight: 160 lb 14.999 oz Body Mass Index (BMI) 30.1 ABG / Lab / Microbiology Data Result Diagrams: 06/14/21 08:10 06/14/21 08:10 Laboratory: Laboratory Results - last 24 hr 06/11/21 22:37: Crossmatch See Detail 06/13/21 15:44: POC Glucose 147 H 06/13/21 21:57: POC Glucose 112 H 06/14/21 06:52: POC Glucose 67 L 06/14/21 07:02: POC Glucose 64 L 06/14/21 07:10: POC Glucose 76 06/14/21 08:10: WBC 10.6, RBC 3.41 L, Hgb 9.6 L, Hct 30.3 L, MCV 88.9, MCH 28.2, MCHC 31.7 L D, RDW Std Deviation 51.7 H, RDW Coeff of Aubrie 15.8 H, Plt Count 166, MPV 11.4, Immature Gran % (Auto) 0.900, Neut % (Auto) 75.1 H, Lymph % (Auto) 11.4 L, [place] % (Auto) 6.5, Eos % (Auto) 5.8 H, Baso % (Auto) 0.3, Absolute Neuts (auto) 7.9 H, Absolute Lymphs (auto) 1.21, Nucleated RBC % 0 06/14/21 08:10: Sodium 139, Potassium 3.2 L, Chloride 110 H, Carbon Dioxide 24.0, Anion Gap 5, BUN 9, Creatinine 0.45 L, Estim Creat Clear Calc 31.69, Est GFR (MDRD) Af Amer 171, Est GFR (MDRD) Non-Af 141, BUN/Creatinine Ratio 19.9, Glucose 123 H, Calcium 8.0 L 06/14/21 11:50: POC Glucose 157 H Microbiology: Microbiology 06/12/21 01:30 Urine Catheter - Frausto Urine Culture - Final Klebsiella pneumoniae sp pneum 06/11/21 22:51 Mucosa - Nose SARS-CoV-2 Antigen (Rapid) - Final D/C Instructions Discharge Diet: Low fat / Low cholesterol Discharge Activity: Return to Normal Activity Weight Bearing Status: Weight bearing as tolerated Call your doctor if you observe: Fever of 101 or Higher, Swelling in the ankles and Uncontrolled pain Meaningful Use Info Meaningful Use Diagnoses (Choose all that apply): None applicable Discharge Plan Admission Admit Date/Time: 06/11/21 23:17 Primary Reason for Your Visit: left hip fracture due to mechanical fall Attending Provider: Ene Villa Primary Care Provider: Riley Roca Chi Consulting Providers: Guicho Billy ; Pratik Tavarez Instructions Patient Instructions: Hip Safety: Mastering Daily Tasks, Understanding Hip Fractures, Hip Fracture Surgery: Types, Exercises to Prevent Falls Discharge Orders/Prescriptions Prescriptions: New apixaban 2.5 mg tablet 2.5 mg PO BID Qty: 42 RF: 0 oxycodone 5 mg tablet 5 mg PO Q6H PRN (Reason: pain) 5 Days Qty: 20 RF: 0 Continued sertraline 100 MG tablet 100 mg PO DAILY RF: 0 albuterol sulfate 90 mcg/actuation HFA aerosol inhaler 2 puff INHALATION BID RF: 0 atorvastatin 20 MG tablet 20 mg PO QHS RF: 0 atenolol 50 MG tablet 50 mg PO DAILY RF: 0 sucralfate 1 GM tablet 1 gm PO 4X/DAY Qty: 120 RF: 1 pantoprazole 40 mg tablet,delayed release (DR/EC) 40 mg PO DAILY RF: 0 isosorbide mononitrate 60 mg tablet extended release 24 hr 60 mg PO DAILY RF: 0 lisinopril 20 mg Tablet 20 mg PO DAILY 30 Days Qty: 30 RF: 0 aspirin 81 mg Tablet,Delayed Release (Dr/Ec) 81 mg PO DAILY@0800 Qty: 0 RF: 0 acetaminophen 500 mg Tablet 1,000 mg PO Q6H PRN PRN (Reason: Pain Score 1-5) Qty: 0 RF: 0 polysaccharide iron complex [Ferrex 150] 150 mg iron Capsule 150 mg PO DAILYCM 30 Days Qty: 30 RF: 0 potassium chloride [Klor-Con M20] 20 mEq Tablet,Er Particles/Crystals 20 meq PO BIDCM 30 Days Qty: 60 RF: 0 nitroglycerin 0.4 mg Tablet, Sublingual 0.4 mg sublingual Q5M PRN (Reason: Cardiac/Chest Pain) Qty: 0 RF: 0 Toujeo SoloStar U-300 Insulin 300 unit/mL (1.5 mL) insulin pen 50 unit SUBCUT DAILY RF: 0 nitroglycerin 0.4 mg tablet, sublingual 0.4 mg SUBLINGUAL Q5M PRN (Reason: Chest Pain) Qty: 25 RF: 3 furosemide 40 mg tablet 40 mg PO DAILY Qty: 90 RF: 3 Referrals / Follow Up: Pratik Tavarez DO [STAFF PHYSICIAN] - Within 2 Weeks Riley Roca Chi, MD [Primary Care Provider] - Within 2 Weeks Disposition Disposition (needs filled in before D/C Order can be placed): Half-Way Facility Charges/Coding Visit Charges Inpatient E&M: 38584 Disch Hosp
[2021-06-14 16:06] LABS: Bedside Glucose 135 mg/dL (70-110)
--- NOTE | 2021-06-14 16:16 | PCM.TXEXTCAR ---
Diet 06/13/21 04:51 Diet: Regular - General Is pt able to select menu?: Yes Diet Comments: for OR Wound(s) left outer eyebrow area: Wound Type: Abrasion left leg: Wound Type: Surgical Incision left groin: Wound Type: Surgical Incision Problem/Diagnosis (1) CAD (coronary artery disease): Status: Acute (2) History of coronary artery stent placement: Status: Chronic Comment: PTCA/stent to mid first Diagonal 12/21/03; PTCA/stent to mid Diagonal 07/02/07 (3) Ischemic cardiomyopathy: Status: Chronic Comment: EF in February 2019 is 55% with stage II diastolic dysfunction. (4) Congestive heart failure (CHF): Status: Acute Comment: Diastolic (5) Hyperlipidemia: Status: Acute (6) HTN (hypertension): Status: Chronic (7) Intertrochanteric fracture of left hip: Status: Acute Allergies/Procedures Done in Hospital Allergies latex Allergy (Verified 06/12/21 01:26) Other RASH ON HANDS WHEN SHE USED LATEX GLOVES WHEN WORKED AT ASSISTED 17 YRS AGO Type of Care/Length of Stay Estimated LOS: Convalescent Care Less Than 30 days Type of Care Needed: Skilled Rehab Potential: Fair Prognosis: Fair Additional Orders/Day of Discharge Day of Discharge: 06/14/21 Dietary and Speech Recommendations Dietitian Recommendations/Changes: Rec Carbohydrate-Controlled/Sodium-Restricted diet as medically able to advance diet after surgery; fluid restriction as needed given lasix/hx of CHF. ONS as needed when diet advanced post-op. Discharge Plan Admission Admit Date/Time: 06/11/21 23:17 Primary Reason for Your Visit: left hip fracture due to mechanical fall Attending Provider: Ene Villa Primary Care Provider: Riley Roca Chi Consulting Providers: Guicho Billy ; Pratik Tavarez Instructions Patient Instructions: Hip Safety: Mastering Daily Tasks, Understanding Hip Fractures, Hip Fracture Surgery: Types, Exercises to Prevent Falls Discharge Orders/Prescriptions Prescriptions: New apixaban 2.5 mg tablet 2.5 mg PO BID Qty: 42 RF: 0 oxycodone 5 mg tablet 5 mg PO Q6H PRN (Reason: pain) 5 Days Qty: 20 RF: 0 Continued sertraline 100 MG tablet 100 mg PO DAILY RF: 0 albuterol sulfate 90 mcg/actuation HFA aerosol inhaler 2 puff INHALATION BID RF: 0 atorvastatin 20 MG tablet 20 mg PO QHS RF: 0 atenolol 50 MG tablet 50 mg PO DAILY RF: 0 sucralfate 1 GM tablet 1 gm PO 4X/DAY Qty: 120 RF: 1 pantoprazole 40 mg tablet,delayed release (DR/EC) 40 mg PO DAILY RF: 0 isosorbide mononitrate 60 mg tablet extended release 24 hr 60 mg PO DAILY RF: 0 lisinopril 20 mg Tablet 20 mg PO DAILY 30 Days Qty: 30 RF: 0 aspirin 81 mg Tablet,Delayed Release (Dr/Ec) 81 mg PO DAILY@0800 Qty: 0 RF: 0 acetaminophen 500 mg Tablet 1,000 mg PO Q6H PRN PRN (Reason: Pain Score 1-5) Qty: 0 RF: 0 polysaccharide iron complex [Ferrex 150] 150 mg iron Capsule 150 mg PO DAILYCM 30 Days Qty: 30 RF: 0 potassium chloride [Klor-Con M20] 20 mEq Tablet,Er Particles/Crystals 20 meq PO BIDCM 30 Days Qty: 60 RF: 0 nitroglycerin 0.4 mg Tablet, Sublingual 0.4 mg sublingual Q5M PRN (Reason: Cardiac/Chest Pain) Qty: 0 RF: 0 Toujeo SoloStar U-300 Insulin 300 unit/mL (1.5 mL) insulin pen 50 unit SUBCUT DAILY RF: 0 nitroglycerin 0.4 mg tablet, sublingual 0.4 mg SUBLINGUAL Q5M PRN (Reason: Chest Pain) Qty: 25 RF: 3 furosemide 40 mg tablet 40 mg PO DAILY Qty: 90 RF: 3 Referrals / Follow Up: Pratik Tavarez DO [STAFF PHYSICIAN] - Within 2 Weeks Riley Roca Chi, MD [Primary Care Provider] - Within 2 Weeks Disposition Disposition (needs filled in before D/C Order can be placed): Assisted Facility
--- NOTE | 2021-06-14 16:56 | NURSING ---
report called to Maki JONES RN
--- NOTE | 2021-06-14 18:55 | NURSING ---
x2 max assist with gait belt and walker back to bed. pt transported to TCU
== END 2021-06-14 19:00 | disposition skilled nursing facility (03) | DRG 481 ==
LOC: ED 22:33 → MS3 06-12 00:37
PROVIDERS: Anesthesiology; Orthopaedic Surgery; Admitting Provider Family Medicine; Emergency Provider Emergency Medicine; PCP Family Medicine Geriatric Medicine; Visit Provider Student in an Organized Health Care Education/Training Program
PROC: 0QS706Z Reposition Left Upper Femur with Intramedullary Internal Fixation Device, Open Approach (ICD-10-PCS; principal; 2021-06-12 13:15)
DX: S72.22XA Displaced subtrochanteric fracture of left femur, initial encounter for closed fracture (principal); I50.32 Chronic diastolic (congestive) heart failure; D62 Acute posthemorrhagic anemia; E66.9 Obesity, unspecified; I11.0 Hypertensive heart disease with heart failure; I25.10 Atherosclerotic heart disease of native coronary artery without angina pectoris; Z95.5 Presence of coronary angioplasty implant and graft; E78.5 Hyperlipidemia, unspecified; F41.9 Anxiety disorder, unspecified; F32.9 Major depressive disorder, single episode, unspecified; K21.9 Gastro-esophageal reflux disease without esophagitis; D50.9 Iron deficiency anemia, unspecified; Z79.4 Long term (current) use of insulin; Z79.899 Other long term (current) drug therapy; E11.51 Type 2 diabetes mellitus with diabetic peripheral angiopathy without gangrene; G47.33 Obstructive sleep apnea (adult) (pediatric); I25.5 Ischemic cardiomyopathy; W18.30XA Fall on same level, unspecified, initial encounter; Y93.89 Activity, other specified; Y92.008 Other place in unspecified non-institutional (private) residence as the place of occurrence of the external cause; Y99.8 Other external cause status; Z68.30 Body mass index [BMI] 30.0-30.9, adult
CPT/HCPCS: 36415; 71045; 72170; 73502; 73552; 76000; 80048; 80053; 81002; 82962; 83036; 83735; 83880; 84443; 85025; 85610; 85730; 86850; 86900; 86901; 86920; 86922; 87077; 87086; 87088; 87186; 87426; 93005; 94640; 97110; 97162; 97166; 97530; 97535; 99251; 99285; C1713; J7030; J7040; P9016; A4216; G0463; J2405

== ENCOUNTER 2021-06-14 19:00 | Inpatient (IN) | payer MEDICARE, SELFPAY ==
[2021-06-14 20:14] VITALS: BP 147/56; PULSE 71; RESP 16; TEMP 36.5; O2SAT 96; BMI 32.8
[2021-06-14 23:15] LABS: Bedside Glucose 123 mg/dL (70-110)
[2021-06-14] MEDS: Sucralfate 1 GM Tablet PO (23:49)
[2021-06-14] MEDS: Acetaminophen 500 MG Tablet 1000 MG PO (23:49)
[2021-06-14] MEDS: Atorvastatin Calcium 20 MG Tablet PO (23:49)
[2021-06-14] MEDS: oxyCODONE 5 MG Tablet PO (23:50)
[2021-06-15 05:22] VITALS: BP 173/54; PULSE 63; RESP 16; TEMP 37.1; O2SAT 96
[2021-06-15] MEDS: Sertraline 100 MG Tablet PO (05:26)
[2021-06-15] MEDS: Isosorbide Mononitrate 60 MG Tablet PO (05:27)
[2021-06-15] MEDS: Lisinopril 20 MG Tablet PO (05:27)
[2021-06-15] MEDS: Sucralfate 1 GM Tablet PO (05:27)
[2021-06-15] MEDS: Pantoprazole Sodium 40 MG Tablet PO (05:27)
[2021-06-15] MEDS: APIXABAN 2.5 MG TABLET PO ×2 (05:27→16:43)
[2021-06-15] MEDS: Furosemide 40 MG Tablet PO (05:29)
[2021-06-15] MEDS: Atenolol 50 MG Tablet PO (05:29)
[2021-06-15] MEDS: Nystatin Powder 15gm Bottle 1 APPLIC TOPICAL ×2 (05:37→16:43)
[2021-06-15] MEDS: Menthol/Lanolin/Calamine/Znox 113 GM Tube 1 APPLIC TOPICAL ×2 (05:37→16:43)
[2021-06-15 08:31] LABS: Bedside Glucose 144 mg/dL (70-110)
[2021-06-15 08:32] LABS: Absolute Lymphocyte Count 1.21 X10^3/uL (0.83-4.51); Basophil# 0.02 X10^3/uL; Basophil% 0.2 % (0-1); Eosinophil# 0.59 X10^3/uL; Eosinophils% 6.2 % (0-5); Hematocrit 30.9 % (37-47); Hemoglobin 9.5 g/dL (12.0-15.0); Lymphocyte # 1.21 X10^3/ul (0.83-4.51); Lymphocyte % 12.6 % (19-41); Mean Corp Hgb Conc 30.7 g/dL (32-36); Mean Corpuscular Hgb 27.9 pg (27.0-32.0); Mean Corpuscular Volume 90.6 fL (81-99); Mean Platelet Vol. 11.4 fl (6.2-12.0); Monocyte# 0.73 X10^3/uL; Monocyte% 7.6 % (0-10); NRBC Flagged by Analyzer 0 % (0-5); Neutrophil # 6.96 X10^3/uL (2.7-7.7); Neutrophil % 72.6 % (47-70); Platelet Count 178 K/mm3 (150-450); RBC Distribution Width CV 15.7 % (11.6-14.6); RBC Distribution Width SD 51.5 fl (35.1-43.9); Red Blood Count 3.41 M/mm3 (4.2-5.4); White Blood Count 9.6 K/mm3 (4.4-11.0)
--- NOTE | 2021-06-15 08:37 | HP.PCM_ITS ---
HPI - General General Date of Admission: 06/14/21 HPI Narrative 06/11/2021 LARRY MALDONADO, is a 81 Female who presents to [facility] Emergency Department with fall. 06/11/2021 EKG normal sinus rhythm, left axis deviation, left bundle branch block. Left hip, left thigh pain after fall. Unable to walk. X-ray shows left hip fracture. 06/11/2021 Admit to Hospital. Consult Orthopedics for left hip fracture. Consult Cardiology for preop clearance. 06/12/2021 Dr. Billy recommended acceptable risk for surgery. 06/12/2021 Dr. Tavarez performed cephalo-medullary fixation left hip. 06/13/2021 Hemoglobin 7.2. Tylenol, Oxycodone, Morphine for pain. PT/OT for debility. Eliquis 2.5mg twice daily for DVT prophylaxis. 06/14/2021 Left hip pain. Incentive spirometry to prevent atelectasis. Hemoglobin 9.6 status post 2 unit PRBC transfusion. 06/14/2021 Admit to TCU with debility, here for rehabilitation, strengthening, prior to discharge home alone. [facility] Medical History Anemia Anxiety and depression Back pain due to injury CAD (coronary artery disease) CAD (coronary artery disease) Chest pain Congestive heart failure (CHF) Congestive heart failure (CHF) Current use of insulin Depression Diabetes Gastroesophageal reflux disease High cholesterol History of hemorrhoids History of stress test HLD (hyperlipidemia) HTN (hypertension) HTN (hypertension) Irritable bowel Myocardial infarct Non-smoker Non-smoker Post-menopausal Sleep apnea Type II diabetes mellitus Home Medications sertraline 100 mg PO DAILY 02/26/19 [History Last Taken 04/12/21] albuterol sulfate 2 puff INHALATION BID 06/11/20 [History Last Taken 04/11/21] atenolol 50 mg PO DAILY 06/11/20 [History Last Taken 04/12/21] atorvastatin 20 mg PO QHS 06/11/20 [History Last Taken 04/12/21] nitroglycerin 0.4 mg sublingual tablet 0.4 mg SUBLINGUAL Q5M PRN #25 tab 10/04/20 [Rx Last Taken 04/10/21] isosorbide mononitrate 60 mg PO DAILY 04/12/21 [History Last Taken 04/12/21] pantoprazole 40 mg PO DAILY 04/12/21 [History Last Taken 04/12/21] acetaminophen 1,000 mg PO Q6H PRN PRN #0 tab 05/01/21 [Rx Last Taken Unknown] nitroglycerin 0.4 mg SUBLINGUAL Q5M PRN #0 tab 05/01/21 [Rx Last Taken Unknown] Lonnie Glover U-300 Insulin 50 unit SUBCUT DAILY 06/12/21 [History Last Taken Unknown] apixaban 2.5 mg PO BID 06/14/21 [History Last Taken Unknown] aspirin 81 mg PO DAILY@0800 06/14/21 [History Last Taken Unknown] furosemide 40 mg PO DAILY 06/14/21 [History Last Taken Unknown] lisinopril 20 mg PO DAILY 06/14/21 [History Last Taken Unknown] oxycodone 5 mg PO Q6H PRN 5 Days #20 tab 06/14/21 [Rx Last Taken Unknown] polysaccharide iron complex [Ferrex 150] 150 mg PO DAILYCM 06/14/21 [History Last Taken Unknown] potassium chloride [Klor-Con M20] 20 meq PO BIDCM 06/14/21 [History Last Taken Unknown] sucralfate 1 gm PO 4X/DAY 06/14/21 [History Last Taken Unknown] Allergy/AdvReac Type Severity Reaction Status Date / Time latex Allergy Other Verified 06/12/21 01:26 Family History Father CVA (cerebral vascular accident) Mother Heart disease CAD (coronary artery disease) Sister CAD (coronary artery disease) Daughter CAD (coronary artery disease) Myocardial infarction Daughter Diabetes Surgical History H/O: hysterectomy History of carpal tunnel release History of cholecystectomy History of cholecystectomy History of coronary artery stent placement History of heart artery stent History of kyphoplasty Hx of cholecystectomy Hx of knee surgery S/P hysterectomy Social History household members: none Smoking Status: Never smoker alcohol intake: never substance use type: does not use ROS Constitutional Constitutional: Denies chills, fever(s) or weight gain ENT HEENT: Denies headache(s), nasal congestion or nasal discharge Cardiovascular Cardiovascular: Denies chest pain or palpitations Respiratory/Chest Respiratory/Chest: Denies cough, excessive phlegm production or shortness of breath with exertion Gastrointestinal Gastrointestinal: Denies abdominal pain, nausea or vomiting Genitourinary Genitourinary: Denies dysuria Musculoskeletal Musculoskeletal: Denies joint pain or joint swelling Integumentary Integumentary: Denies rash or wounds Neurologic Neurologic: Denies focal weakness, numbness or tingling Psychiatric Psychiatric: Reports auditory hallucinations; Denies anxiety, depression, homicidal ideation or suicidal ideation Vital Signs Vital Signs Vital Signs: 06/14/21 20:14 06/15/21 00:24 06/15/21 05:22 Temperature 97.7 F L 98.8 F Temperature Source Temporal Oral Pulse Rate 71 63 Pulse Rhythm Regular Pulse Strength Normal (2+) Respiratory Rate 16 16 Respiratory Effort Normal Respiratory Depth Normal Respiratory Pattern Normal Blood Pressure 147/56 H 173/54 H Blood Pressure Mean 86 93 Blood Pressure Source Monitor Monitor Blood Pressure Position Semi-Fowlers Semi-Fowlers Blood Pressure Location Left Arm Left Arm Pulse Ox 96 96 Oxygen Delivery Method Room Air Room Air Room Air Weight Weight: 76.3 kg Body Mass Index (BMI) 32.8 Physical Exam Const alert and oriented x3 General Appearance: cooperative HEENT normocephalic Eyes PERRL and EOMs intact bilaterally Neck supple, no JVD and no carotid bruits Resp normal respiratory effort, normal air movement and clear to auscultation bilaterally Cardio regular rate and regular rhythm GI normal to inspection, nondistended, normoactive bowel sounds, non-tender and non-distended Extremity normal capillary refill General Extremity: Negative for edema Skin no rashes or lesions noted General Skin Exam: no breakdown Psych affect normal Appearance: appropriate Results Lab / Micro Data Result Diagrams: 06/15/21 08:09 06/15/21 08:09 Labs: Laboratory Results - last 24 hr 06/14/21 23:13: POC Glucose 123 H 06/15/21 08:09: WBC 9.6, RBC 3.41 L, Hgb 9.5 L, Hct 30.9 L, MCV 90.6, MCH 27.9, MCHC 30.7 L, RDW Std Deviation 51.5 H, RDW Coeff of Aubrie 15.7 H, Plt Count 178, MPV 11.4, Immature Gran % (Auto) 0.800, Neut % (Auto) 72.6 H, Lymph % (Auto) 12.6 L, Warren % (Auto) 7.6, Eos % (Auto) 6.2 H, Baso % (Auto) 0.2, Absolute Neuts (auto) 7.0, Absolute Lymphs (auto) 1.21, Nucleated RBC % 0 06/15/21 08:24: POC Glucose 144 H Assessment & Plan Assessment/Plan (1) Debility: (2) Closed left hip fracture: (3) Postoperative anemia: (4) Hypertension: (5) Hyperlipidemia: (6) Coronary artery disease: (7) Diabetes mellitus: (8) Depression: (9) Chronic obstructive pulmonary disease: (10) Gastroesophageal reflux disease: (11) Iron deficiency anemia: (12) Chronic diastolic heart failure: PLAN: 81 year old female with below past medical history hospitalized for left hip fracture, underwent cephalo-medullary nail left hip fixation 06/12/[address] Tavarez, postoperative course complicated by anemia requiring transfusion, admitted to TCU with debility, here for rehabilitation, strengthening, prior to discharge home alone. * Debility - PT/OT. * Pain - Tylenol 1000mg Q6H prn pain (1-5), Oxycodone 5mg Q4H PRN pain (6-10). * Bowel - Miralax 17gm daily, Senna/colace 1 tablet twice daily, Dulcolax 10mg daily PRN. * Adult immunization - Administer prevnar 13, pneumovax 23, fluzone, covid19 vaccine as appropriate. * DVT prophylaxis - Eliquis 2.5mg twice daily thru 07/17/2021. * COPD - Albuterol 2 puffs twice daily. * Coronary Artery Disease - Atenolol 50mg daily, Lisinopril 20mg daily, Imdur 60mg daily, Eliquis 2.5mg twice daily thru 07/17/2021, Aspirin 81mg starting 07/18/2021, NTG 0.4mg SL Q5M PRN. * Chronic diastolic heart failure - Atenolol 50mg daily, Lisinopril 20mg daily, Imdur 60mg daily, Lasix 40mg daily. * Hyperlipidemia - Atorvastatin 20mg QHS. * Diabetes Mellitus II - Lantus 50 units QHS, monitor blood sugars. * Iron deficiency anemia - Ferrex 150mg daily. * Skin irritation - Calmoseptine topical twice daily. * Tinea Corporis - Nystatin powder topical twice daily. * GERD - Pantoprazole 40mg daily. * Hypokalemia - KCL ER 20meq twice daily. 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
[2021-06-15] MEDS: Potassium Chloride Oral Tablet 20 MEQ PO ×2 (08:39→16:43)
[2021-06-15] MEDS: Iron Polysaccharide Complex 150 MG CAPSULE PO (08:39)
[2021-06-15] MEDS: Aspirin E.C. 81 MG Tablet PO (08:39)
[2021-06-15 09:24] LABS: Anion Gap 7 (5-15); BUN 9 mg/dL (7-18); Calcium,Total 8.4 mg/dL (8.5-10.1); Chloride 107 mmol/L (98-107); Creatinine, Serum 0.45 mg/dL (0.55-1.02); EST Glomerular Filtration Rate 142 mL/min (>60); Est Glom Filt Rate - Afr Amer 171 mL/min (>60); Estimated Creatinine Clearance 31.69 ml/min; Glucose 106 mg/dL (74-106); Potassium 3.4 mmol/L (3.5-5.1); Sodium Level 140 mmol/L (136-145)
[2021-06-15] MEDS: Polyethylene Glycol 3350 17 GM PACKET PO (10:37)
[2021-06-15] MEDS: Senna/Docusate Sodium 1 Tablet PO (10:37)
[2021-06-15] MEDS: Tuberculin,Purif.prot.deriv. 50 TU/ML Vial 0.1 ML ID (10:39)
[2021-06-15 10:41] LABS: Bedside Glucose 152 mg/dL (70-110)
[2021-06-15] MEDS: Acetaminophen 500 MG Tablet 1000 MG PO ×2 (13:51→20:21)
[2021-06-15 14:18] VITALS: BP 179/47; PULSE 61; RESP 18; TEMP 35.9; O2SAT 99
[2021-06-15 17:05] LABS: Bedside Glucose 122 mg/dL (70-110)
[2021-06-15] MEDS: oxyCODONE 5 MG Tablet PO (17:45)
[2021-06-15] MEDS: Atorvastatin Calcium 20 MG Tablet PO (20:21)
[2021-06-15 21:31] LABS: Bedside Glucose 112 mg/dL (70-110)
[2021-06-16 06:34] VITALS: BP 147/50; PULSE 65
[2021-06-16] MEDS: Menthol/Lanolin/Calamine/Znox 113 GM Tube 1 APPLIC TOPICAL ×2 (06:35→16:50)
[2021-06-16] MEDS: Furosemide 40 MG Tablet PO (06:35)
[2021-06-16] MEDS: Pantoprazole Sodium 40 MG Tablet PO (06:35)
[2021-06-16] MEDS: Isosorbide Mononitrate 60 MG Tablet PO (06:35)
[2021-06-16] MEDS: Atenolol 50 MG Tablet PO (06:35)
[2021-06-16] MEDS: Sertraline 100 MG Tablet PO (06:35)
[2021-06-16] MEDS: APIXABAN 2.5 MG TABLET PO ×2 (06:35→16:50)
[2021-06-16] MEDS: Polyethylene Glycol 3350 17 GM PACKET PO (06:36)
[2021-06-16] MEDS: Nystatin Powder 15gm Bottle 1 APPLIC TOPICAL ×2 (06:37→16:51)
[2021-06-16] MEDS: Lisinopril 20 MG Tablet PO (06:39)
[2021-06-16] MEDS: Senna/Docusate Sodium 1 Tablet PO (06:39)
[2021-06-16 07:10] LABS: Bedside Glucose 72 mg/dL (70-110)
--- NOTE | 2021-06-16 07:33 | NURSING ---
Frausto removed at 0630 this AM. Patient tolerated well, tip intact.
[2021-06-16] MEDS: Potassium Chloride Oral Tablet 20 MEQ PO ×2 (09:15→16:50)
[2021-06-16] MEDS: Iron Polysaccharide Complex 150 MG CAPSULE PO (09:15)
[2021-06-16 09:20] LABS: Bedside Glucose 160 mg/dL (70-110)
[2021-06-16] MEDS: oxyCODONE 5 MG Tablet PO ×2 (09:36→19:48)
[2021-06-16 11:01] LABS: Bedside Glucose 151 mg/dL (70-110)
[2021-06-16] MEDS: 0.9% Saline Lock 10 ML Syringe IV (15:09)
[2021-06-16] MEDS: Acetaminophen 500 MG Tablet 1000 MG PO (15:09)
[2021-06-16 15:10] VITALS: BP 178/43; PULSE 73; RESP 14; TEMP 36.4; O2SAT 95
[2021-06-16 16:50] LABS: Bedside Glucose 91 mg/dL (70-110)
[2021-06-16] MEDS: Atorvastatin Calcium 20 MG Tablet PO (19:49)
[2021-06-16 20:02] VITALS: PULSE 65; RESP 16; O2SAT 92
[2021-06-16 21:21] LABS: Bedside Glucose 166 mg/dL (70-110)
--- NOTE | 2021-06-16 23:14 | NURSING ---
Dressing removed from left hip @1999, incision sites are well approximated, no drainage, ramakrishna intact. Cleansed gently and applied DSD to sites.
[2021-06-17 06:11] LABS: Bedside Glucose 85 mg/dL (70-110)
[2021-06-17] MEDS: Lisinopril 20 MG Tablet PO (06:29)
[2021-06-17] MEDS: Menthol/Lanolin/Calamine/Znox 113 GM Tube 1 APPLIC TOPICAL ×2 (06:29→17:21)
[2021-06-17] MEDS: Pantoprazole Sodium 40 MG Tablet PO (06:29)
[2021-06-17] MEDS: APIXABAN 2.5 MG TABLET PO ×2 (06:29→17:20)
[2021-06-17] MEDS: Atenolol 50 MG Tablet PO (06:29)
[2021-06-17] MEDS: Isosorbide Mononitrate 60 MG Tablet PO (06:29)
[2021-06-17] MEDS: Furosemide 40 MG Tablet PO (06:29)
[2021-06-17] MEDS: Nystatin Powder 15gm Bottle 1 APPLIC TOPICAL ×2 (06:30→17:21)
[2021-06-17] MEDS: Sertraline 100 MG Tablet PO (06:31)
[2021-06-17 06:34] VITALS: BP 122/56; PULSE 66
[2021-06-17] MEDS: Iron Polysaccharide Complex 150 MG CAPSULE PO (07:52)
[2021-06-17] MEDS: Potassium Chloride Oral Tablet 20 MEQ PO ×2 (07:53→17:20)
[2021-06-17] MEDS: oxyCODONE 5 MG Tablet PO ×2 (09:18→20:54)
[2021-06-17 09:22] VITALS: PULSE 55; RESP 16; O2SAT 98
[2021-06-17 10:51] LABS: Bedside Glucose 147 mg/dL (70-110)
--- NOTE | 2021-06-17 11:01 | CASEMGMT ---
Social Work MEt with pt for initaila assessment. SW discussed code status with pt and assisted pt in completing MOLST form. Pt wishes DNRCCA with no intubation. Nursing updated. MOLST form communicated to physician and placed on pt chart. SW explained [place] [facility] coverage with NRD 06/19 and continued stay not guaranteed. Pt plans to return home alone at time of discharge. Pt states her dgts can check in on her if needed. SW to continue to follow. ANGELICA Yates
--- NOTE | 2021-06-17 14:18 | NURSING ---
pt incont lg amt of urine, incont care provided, dry attends placed on pt. Bladder scan 111. pt very resistive to movement of any kind, even rolling or reaching for siderails in bed. drsg's changed to 4 incisions on LT hip/thigh. polar care placed. pt resting on back, call light in reach.
--- NOTE | 2021-06-17 14:40 | PCM.PN.RX ---
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 81 Mg Tablet PO BREAKFAST DISHA Atenolol 50 mg 06/15/21 06:00 06/17/21 06:29 Atenolol 50 Mg Tablet PO 50 mg DAILY DISHA Administration Atorvastatin Calcium 20 mg 06/14/21 23:07 06/16/21 19:49 Atorvastatin Calcium 20 Mg Tablet PO 20 mg QHS DISHA Administration Bisacodyl 10 mg 06/15/21 08:59 Bisacodyl 5 Mg Tablet PO DAILY PRN Constipation Calamine/Phenol 1 applic 06/15/21 06:00 06/17/21 06:29 Menthol/Lanolin/Calamine/Znox 113 Gm Tube TOPICAL 1 each BID DISHA Administration Protocol Furosemide 40 mg 06/15/21 06:00 06/17/21 06:29 Furosemide 40 Mg Tablet PO 40 mg DAILY DISHA Administration Insulin Glargine 35 units 06/16/21 07:45 06/17/21 06:27 Insulin Glargine 100 Units/Ml Pen SC 35 unit DAILY DISHA Administration Isosorbide Mononitrate 60 mg 06/15/21 06:00 06/17/21 06:29 Isosorbide Mononitrate 60 Mg Tablet PO 60 mg DAILY DISHA Administration Lisinopril 20 mg 06/15/21 06:00 06/17/21 06:29 Lisinopril 20 Mg Tablet PO 20 mg DAILY DISHA Administration Nitroglycerin 0.4 mg 06/14/21 23:05 Nitroglycerin (Inpatient Use) 0.4 Mg Tab.Subl SL Q5M PRN CARDIAC/CHEST PAIN Nystatin 1 applic 06/15/21 06:00 06/17/21 06:30 Nystatin Powder 15gm Bottle TOPICAL 1 each BID DISHA Administration Protocol Oxycodone HCl 5 mg 06/15/21 09:01 06/17/21 09:18 Oxycodone 5 Mg Tablet PO 5 mg Q4H PRN PRN Administration Pain Score 6-10 Pantoprazole Sodium 40 mg 06/15/21 06:00 06/17/21 06:29 Pantoprazole Sodium 40 Mg Tablet PO 40 mg DAILY DISHA Administration Polyethylene Glycol 17 gm 06/15/21 09:00 06/17/21 06:30 Polyethylene Glycol 3350 17 Gm Packet PO Not Given DAILY DISHA Polysaccharide Iron Complex 150 mg 06/15/21 08:00 06/17/21 07:52 Iron Polysaccharide Complex 150 Mg Capsule PO 150 mg DAILYCM DISHA Administration Potassium Chloride 20 meq 06/15/21 08:00 06/17/21 07:53 Potassium Chloride Oral Tablet 20 Meq PO 20 meq BIDCM DISHA Administration Senna/Docusate Sodium 1 tablet 06/15/21 09:00 06/17/21 06:30 Senna/Docusate Sodium 1 Tablet PO Not Given BID DISHA Sertraline HCl 100 mg 06/15/21 06:00 06/17/21 06:31 Sertraline 100 Mg Tablet PO 100 mg DAILY DISHA Administration Sodium Chloride 10 - 40 ml 06/15/21 01:29 06/16/21 15:09 0.9% Saline Lock 10 Ml Syringe IV 10 ml UD PRN Administration SALINE FLUSH Tuberculin PPD 0.1 ml 06/22/21 10:00 Tuberculin,Purif.Prot.Deriv. 50 Tu/Ml Vial ID 06/22/21 10:01 X1 ONE Problem List (Last Reviewed 06/15/21 @ 08:[address] Riley Roca MD) Chronic diastolic heart failure (Chronic) Iron deficiency anemia (Acute) Gastroesophageal reflux disease (Acute) Chronic obstructive pulmonary disease (Chronic) Depression (Acute) Diabetes mellitus (Acute) Coronary artery disease (Acute) Hyperlipidemia (Acute) Hypertension (Chronic) Postoperative anemia (Acute) Closed left hip fracture (Acute) Debility (Acute) Vital Signs Temp Pulse Resp BP Pulse Ox 97.5 F L 55 L 16 122/56 H 98 06/16/21 15:10 06/17/21 09:22 06/17/21 09:22 06/17/21 06:34 06/17/21 09:22 Oxygen Delivery Method Room Air Weight: 76.3 kg Body Mass Index (BMI) 32.8 Sodium 140 mmol/L (136-145) 06/15/21 08:09 Potassium 3.4 mmol/L (3.5-5.1) L 06/15/21 08:09 Chloride 107 mmol/L (98-107) 06/15/21 08:09 Carbon Dioxide 26.0 mmol/L (21.0-32.0) 06/15/21 08:09 Anion Gap 7 (5-15) 06/15/21 08:09 BUN 9 mg/dL (7-18) 06/15/21 08:09 Creatinine 0.45 mg/dL (0.55-1.02) L 06/15/21 08:09 Est GFR (MDRD) Af Amer 171 mL/min (>60) 06/15/21 08:09 Est GFR (MDRD) Non-Af 142 mL/min (>60) 06/15/21 08:09 BUN/Creatinine Ratio 20.0 RATIO (10-20) 06/15/21 08:09 Glucose 106 mg/dL (74-106) 06/15/21 08:09 Assessment/Plan: 1. Pain: acetaminophen 1000mg PO Q6H PRN pain 1-5 and oxycodone 5mg PO Q4H PRN pain 6-10. Please continue to monitor for increased pain, PRN usage, constipation and respiratory depression. 2. DVT prophylaxis: apixaban 2.5mg PO BID thru 07/17/21. Please continue to monitor for S/S of bleeding/DVT and hemoglobin (last 9.5g/dL). 3. CAD/CHF: atenolol 50mg PO daily, lisinopril 20mg PO daily, isosorbide mononitrate 60mg PO daily, aspirin 81mg PO breakfast (starting 07/18/21, after completion of Eliquis), nitroglycerin 0.4mg SL Q5M PRN chest pain, and furosemide 40mg PO daily. Please continue to monitor HR (last 55), BP (last 122/56), chest pain, potassium (last 3.4mmol/L), sodium (last 140mmol/L), edema, renal function, cough and S/S of bleeding. *4. Hyperlipidemia: atorvastatin 20mg PO QHS. Please consider ordering a lipid panel now and then annually as clinically appropriate. Last lipid panel from 06/12/2020. Thanks. Please continue to monitor for muscle pain. 5. Diabetes mellitus II: insulin glargine 35units SC daily. Please continue to monitor hemoglobin A1c (last 6.2% from 06/12/21), blood glucose (last 106mg/dL), weight gain and S/S of hypoglycemia. 6. COPD: albuterol inhaler 90mcg/actuation 2puffs inhalation BID. Please continue to monitor for S/S of COPD and HR. 7. Iron deficiency anemia: Ferrex 150mg PO DAILYCM. Please continue to monitor hemoglobin (last 9.5g/dL), constipation and dark stools. 8. GERD: pantoprazole 40mg PO daily. Please continue to monitor for S/S of GERD and diarrhea. 9. Hypokalemia: potassium chloride 20mEq PO BIDCM. Please continue to monitor potassium levels (last 3.4mmol/L). Psychotropic Medications: 1. Depression: sertraline 100mg PO daily. Please see physician note regarding GDR. Unnecessary Medications: None *Bowel Regimen: Miralax 17gm PO daily, senna/docusate 1T PO BID, and bisacodyl 10mg PO daily PRN constipation. Please consider changing senna/docusate to PRN. Patient has refused 3/5 doses due to diarrhea. Thanks. Please continue to monitor for constipation and PRN usage. Date of Note:: 06/17/21
[2021-06-17 16:00] VITALS: BP 181/52; PULSE 56; RESP 17; TEMP 37; O2SAT 96
[2021-06-17 16:01] LABS: Bedside Glucose 101 mg/dL (70-110)
[2021-06-17] MEDS: Senna/Docusate Sodium 1 Tablet PO (17:21)
[2021-06-17] MEDS: 0.9% Saline Lock 10 ML Syringe IV (17:24)
[2021-06-17] MEDS: Atorvastatin Calcium 20 MG Tablet PO (20:55)
[2021-06-17 21:27] LABS: Bedside Glucose 126 mg/dL (70-110)
[2021-06-18] MEDS: 0.9% Saline Lock 10 ML Syringe IV (04:47)
[2021-06-18] MEDS: Polyethylene Glycol 3350 17 GM PACKET PO (04:51)
[2021-06-18] MEDS: Atenolol 50 MG Tablet PO (04:52)
[2021-06-18] MEDS: Sertraline 100 MG Tablet PO (04:52)
[2021-06-18] MEDS: Pantoprazole Sodium 40 MG Tablet PO (04:52)
[2021-06-18] MEDS: APIXABAN 2.5 MG TABLET PO ×2 (04:52→17:50)
[2021-06-18] MEDS: Furosemide 40 MG Tablet PO (04:52)
[2021-06-18] MEDS: Isosorbide Mononitrate 60 MG Tablet PO (04:52)
[2021-06-18] MEDS: Lisinopril 20 MG Tablet PO ×2 (04:52→17:50)
[2021-06-18] MEDS: Senna/Docusate Sodium 1 Tablet PO (04:52)
[2021-06-18] MEDS: Nystatin Powder 15gm Bottle 1 APPLIC TOPICAL ×2 (04:53→17:50)
[2021-06-18] MEDS: Menthol/Lanolin/Calamine/Znox 113 GM Tube 1 APPLIC TOPICAL (04:53)
[2021-06-18 06:26] LABS: Bedside Glucose 131 mg/dL (70-110)
[2021-06-18] MEDS: Potassium Chloride Oral Tablet 20 MEQ PO ×2 (07:43→17:50)
[2021-06-18] MEDS: Iron Polysaccharide Complex 150 MG CAPSULE PO (07:43)
[2021-06-18 11:25] LABS: Bedside Glucose 144 mg/dL (70-110)
[2021-06-18] MEDS: Acetaminophen 500 MG Tablet 1000 MG PO ×3 (11:48→20:52)
--- NOTE | 2021-06-18 14:54 | NURSING ---
Resident and daughter, Ailyn, notified of COVID status on the unit.
[2021-06-18 16:33] VITALS: BP 113/59; PULSE 57; RESP 16; TEMP 36.4; O2SAT 93
--- NOTE | 2021-06-18 16:33 | PCA ---
Charge Nurse Alyx Notified of patients low B/P
[2021-06-18 17:26] LABS: Bedside Glucose 173 mg/dL (70-110)
[2021-06-18] MEDS: Atorvastatin Calcium 20 MG Tablet PO (20:53)
[2021-06-18 21:31] LABS: Bedside Glucose 161 mg/dL (70-110)
[2021-06-19 05:01] VITALS: BP 163/47; PULSE 65; RESP 16; TEMP 36.2; O2SAT 97
[2021-06-19] MEDS: APIXABAN 2.5 MG TABLET PO ×2 (05:03→17:16)
[2021-06-19] MEDS: Acetaminophen 500 MG Tablet 1000 MG PO ×3 (05:03→21:03)
[2021-06-19] MEDS: Isosorbide Mononitrate 60 MG Tablet PO (05:04)
[2021-06-19] MEDS: Sertraline 100 MG Tablet PO (05:04)
[2021-06-19] MEDS: Pantoprazole Sodium 40 MG Tablet PO (05:04)
[2021-06-19] MEDS: Atenolol 50 MG Tablet PO (05:04)
[2021-06-19] MEDS: Furosemide 40 MG Tablet PO (05:04)
[2021-06-19] MEDS: Senna/Docusate Sodium 1 Tablet PO (05:04)
[2021-06-19] MEDS: Lisinopril 20 MG Tablet PO ×2 (05:05→17:17)
[2021-06-19] MEDS: Polyethylene Glycol 3350 17 GM PACKET PO (05:05)
[2021-06-19] MEDS: Nystatin Powder 15gm Bottle 1 APPLIC TOPICAL ×2 (05:05→17:16)
[2021-06-19] MEDS: Menthol/Lanolin/Calamine/Znox 113 GM Tube 1 APPLIC TOPICAL ×2 (05:05→17:15)
[2021-06-19 06:25] LABS: Bedside Glucose 149 mg/dL (70-110)
[2021-06-19] MEDS: Potassium Chloride Oral Tablet 20 MEQ PO ×2 (08:40→17:15)
[2021-06-19] MEDS: Iron Polysaccharide Complex 150 MG CAPSULE PO (08:40)
--- NOTE | 2021-06-19 10:51 | CASEMGMT ---
Social Work Plan of care meeting held today with pt present and dgt Ailyn on conference call. Pt is currently receiving PT/OT/ST and participating well with therapy. At this time pt is Max A x2 for mobility and ADLs. Speech is working with pt for cognition and word finding. THEODORE explained to pt and dgt that insurance update is due today and continued stay is not guaranteed. Pt had previously been living at home alone and was independent with all care needs. Team spoke with pt and dgt regarding a secondary plan if pt does not regain independence prior to insurance issuance of non coverage. ECF placement was discussed as well as pt returning home with dgt. Dgt aware that pt currently is Max A x2 and aware return home with her would be very difficult. Family and pt requesting time to process information and consider options. THEODORE will place followup call to pt dgt Ailyn to continue conversation regarding possible ECF placement. ANGELICA Yates
[2021-06-19] MEDS: oxyCODONE 5 MG Tablet PO (11:07)
[2021-06-19 16:00] VITALS: BP 151/56; PULSE 59; RESP 20; TEMP 35.7; O2SAT 95
[2021-06-19 16:15] VITALS: BP 157/58; PULSE 59; RESP 20; TEMP 35.7; O2SAT 95
[2021-06-19] MEDS: Glucerna Shake 120 ML LIQUID PO (17:15)
[2021-06-19] MEDS: Atorvastatin Calcium 20 MG Tablet PO (21:02)
[2021-06-19 21:36] LABS: Bedside Glucose 128 mg/dL (70-110)
[2021-06-20 06:00] VITALS: BP 160/53; PULSE 61
[2021-06-20 06:20] LABS: Bedside Glucose 102 mg/dL (70-110)
[2021-06-20] MEDS: Polyethylene Glycol 3350 17 GM PACKET PO (06:26)
[2021-06-20] MEDS: Atenolol 50 MG Tablet PO (06:27)
[2021-06-20] MEDS: Sertraline 100 MG Tablet PO (06:27)
[2021-06-20] MEDS: Lisinopril 20 MG Tablet PO ×2 (06:27→17:13)
[2021-06-20] MEDS: Furosemide 40 MG Tablet PO (06:28)
[2021-06-20] MEDS: Isosorbide Mononitrate 60 MG Tablet PO (06:28)
[2021-06-20] MEDS: APIXABAN 2.5 MG TABLET PO ×2 (06:28→17:13)
[2021-06-20] MEDS: Acetaminophen 500 MG Tablet 1000 MG PO ×3 (06:28→21:01)
[2021-06-20] MEDS: Pantoprazole Sodium 40 MG Tablet PO (06:28)
[2021-06-20] MEDS: Senna/Docusate Sodium 1 Tablet PO (06:28)
[2021-06-20] MEDS: Menthol/Lanolin/Calamine/Znox 113 GM Tube 1 APPLIC TOPICAL ×2 (06:38→17:20)
[2021-06-20] MEDS: Nystatin Powder 15gm Bottle 1 APPLIC TOPICAL ×2 (06:38→17:30)
[2021-06-20] MEDS: Potassium Chloride Oral Tablet 20 MEQ PO ×2 (07:49→17:13)
[2021-06-20] MEDS: Iron Polysaccharide Complex 150 MG CAPSULE PO (07:49)
[2021-06-20] MEDS: Glucerna Shake 120 ML LIQUID PO ×3 (07:49→17:12)
[2021-06-20 11:00] LABS: Bedside Glucose 246 mg/dL (70-110)
[2021-06-20] MEDS: oxyCODONE 5 MG Tablet PO (11:33)
[2021-06-20 15:28] VITALS: BP 137/47; PULSE 55; RESP 16; TEMP 36.2; O2SAT 96
[2021-06-20 16:17] LABS: Bedside Glucose 156 mg/dL (70-110)
--- NOTE | 2021-06-20 16:51 | NURSING ---
Pt had appt with Dr. Tavarez on 06/26 talked with pt about transportation and pt unable to pay for transportation. Pt would like to do a trial run on getting in and out of the car. Therapy updated and will set up at time with pt.
[2021-06-20 17:25] VITALS: BP 151/45; PULSE 60
[2021-06-20] MEDS: Atorvastatin Calcium 20 MG Tablet PO (21:01)
[2021-06-20 21:16] LABS: Bedside Glucose 185 mg/dL (70-110)
[2021-06-21] MEDS: Polyethylene Glycol 3350 17 GM PACKET PO (04:45)
[2021-06-21] MEDS: Nystatin Powder 15gm Bottle 1 APPLIC TOPICAL ×2 (04:49→17:07)
[2021-06-21] MEDS: Menthol/Lanolin/Calamine/Znox 113 GM Tube 1 APPLIC TOPICAL ×2 (04:49→17:04)
[2021-06-21] MEDS: APIXABAN 2.5 MG TABLET PO ×2 (04:49→17:04)
[2021-06-21] MEDS: Isosorbide Mononitrate 60 MG Tablet PO (04:49)
[2021-06-21] MEDS: Furosemide 40 MG Tablet PO (04:49)
[2021-06-21] MEDS: Pantoprazole Sodium 40 MG Tablet PO (04:50)
[2021-06-21] MEDS: Sertraline 100 MG Tablet PO (04:50)
[2021-06-21] MEDS: Senna/Docusate Sodium 1 Tablet PO ×2 (04:50→17:04)
[2021-06-21] MEDS: Atenolol 50 MG Tablet PO (04:50)
[2021-06-21] MEDS: Acetaminophen 500 MG Tablet 1000 MG PO ×3 (04:50→21:52)
[2021-06-21] MEDS: Lisinopril 20 MG Tablet PO ×2 (04:50→17:04)
[2021-06-21 04:55] VITALS: BP 162/43; PULSE 58
[2021-06-21 06:20] LABS: Bedside Glucose 157 mg/dL (70-110)
[2021-06-21] MEDS: Iron Polysaccharide Complex 150 MG CAPSULE PO (09:18)
[2021-06-21] MEDS: Glucerna Shake 120 ML LIQUID PO ×3 (09:18→17:04)
[2021-06-21] MEDS: Potassium Chloride Oral Tablet 20 MEQ PO ×2 (09:18→17:04)
[2021-06-21] MEDS: oxyCODONE 5 MG Tablet PO ×2 (09:21→22:00)
--- NOTE | 2021-06-21 10:40 | CASEMGMT ---
Social Work Follow up conversation with pt regarding discharge plan. Pt lives alone and had been functioning independently prior to fall and hip fracture. SW explained to pt the insurance process and that continued stay is not guaranteed. SW and pt discussed discharge plan if pt is not ready to live independently when insurance issues letter of non coverage. Pt states that her dgts work and are unable to care for her. Pt stating that she will need to go to ECF. SW provided list of ECF providers including quality and resource use data. SW also explained financial liability at ECF. Pt stating this is not possible. SW explained medicaid and left an application with pt. With pt permission, phone call to pt Ailyn and explained the above. Ailyn agrees that family is unable to provide for care needs at home. Ailyn will visit pt this weekend and assist with completing Medicaid application and review ECF list. SW to follow up with pt next week. ANGELICA Yates
[2021-06-21 11:10] LABS: Bedside Glucose 199 mg/dL (70-110)
--- NOTE | 2021-06-21 12:33 | CASEMGMT ---
Social Work SW met with pt and completed PHQ9 depression screen. PT with score of 18. Pt is currently taking Zoloft and pt states she has taken this medication for a long time and it has been helpful. SW spent time with pt and offered support. Discussed pt frustration with fall and hip fracture and subsequent need for SNF. Pt able to express her feelings openly. Discusses ways to cope with changes and pt enjoyed talking about her family and states visits from them are helpful. SW will continue to follow. ANGELICA Yates
[2021-06-21 14:05] VITALS: BP 139/41; PULSE 59; RESP 14; TEMP 36.1; O2SAT 94
[2021-06-21 14:09] VITALS: PULSE 64; RESP 16; O2SAT 97
[2021-06-21 17:11] LABS: Bedside Glucose 116 mg/dL (70-110)
[2021-06-21] MEDS: Atorvastatin Calcium 20 MG Tablet PO (21:51)
[2021-06-21 22:20] LABS: Bedside Glucose 157 mg/dL (70-110)
--- NOTE | 2021-06-22 01:45 | NURSING ---
Pt still sitting up in bed reading a book. States she can't put her book down because it's too good, denies other needs.
[2021-06-22] MEDS: Polyethylene Glycol 3350 17 GM PACKET PO (05:25)
[2021-06-22] MEDS: Atenolol 50 MG Tablet PO (05:26)
[2021-06-22] MEDS: Lisinopril 20 MG Tablet PO ×2 (05:26→17:44)
[2021-06-22] MEDS: Sertraline 100 MG Tablet PO (05:26)
[2021-06-22] MEDS: Senna/Docusate Sodium 1 Tablet PO ×2 (05:26→17:44)
[2021-06-22] MEDS: Isosorbide Mononitrate 60 MG Tablet PO (05:27)
[2021-06-22] MEDS: Pantoprazole Sodium 40 MG Tablet PO (05:27)
[2021-06-22] MEDS: Furosemide 40 MG Tablet PO (05:27)
[2021-06-22] MEDS: Acetaminophen 500 MG Tablet 1000 MG PO ×3 (05:27→20:40)
[2021-06-22] MEDS: APIXABAN 2.5 MG TABLET PO ×2 (05:27→17:44)
[2021-06-22] MEDS: Menthol/Lanolin/Calamine/Znox 113 GM Tube 1 APPLIC TOPICAL ×2 (05:31→17:44)
[2021-06-22] MEDS: Nystatin Powder 15gm Bottle 1 APPLIC TOPICAL ×2 (05:31→17:48)
[2021-06-22 05:32] VITALS: BP 160/65; PULSE 63
[2021-06-22 06:41] LABS: Bedside Glucose 156 mg/dL (70-110)
[2021-06-22] MEDS: Glucerna Shake 120 ML LIQUID PO ×3 (08:30→17:45)
[2021-06-22] MEDS: Iron Polysaccharide Complex 150 MG CAPSULE PO (08:30)
[2021-06-22] MEDS: Potassium Chloride Oral Tablet 20 MEQ PO ×2 (08:30→17:45)
[2021-06-22 08:52] LABS: Absolute Lymphocyte Count 2.18 X10^3/uL (0.83-4.51); Absolute Neutrophil Count 8.7 X10^3/uL (2.0-7.7); Basophil# 0.09 X10^3/uL; Basophil% 0.7 % (0-1); Eosinophil# 0.57 X10^3/uL; Eosinophils% 4.4 % (0-5); Hematocrit 33.1 % (37-47); Lymphocyte # 2.18 X10^3/ul (0.83-4.51); Mean Corp Hgb Conc 30.2 g/dL (32-36); Mean Corpuscular Hgb 27.6 pg (27.0-32.0); Mean Corpuscular Volume 91.4 fL (81-99); Mean Platelet Vol. 11.5 fl (6.2-12.0); Monocyte# 0.83 X10^3/uL; Monocyte% 6.5 % (0-10); NRBC Flagged by Analyzer 0 % (0-5); Neutrophil # 8.72 X10^3/uL (2.7-7.7); Platelet Count 306 K/mm3 (150-450); RBC Distribution Width CV 15.9 % (11.6-14.6); RBC Distribution Width SD 53.5 fl (35.1-43.9); Red Blood Count 3.62 M/mm3 (4.2-5.4); White Blood Count 12.8 K/mm3 (4.4-11.0)
[2021-06-22 09:16] LABS: Anion Gap 6 (5-15); BUN 28 mg/dL (7-18); BUN/Creat Ratio 38.6 RATIO (10-20); Chloride 106 mmol/L (98-107); Creatinine, Serum 0.72 mg/dL (0.55-1.02); EST Glomerular Filtration Rate 82 mL/min (>60); Est Glom Filt Rate - Afr Amer 99 mL/min (>60); Estimated Creatinine Clearance 31.69 ml/min; Glucose 164 mg/dL (74-106); Potassium 4.5 mmol/L (3.5-5.1); Sodium Level 136 mmol/L (136-145)
[2021-06-22] MEDS: Tuberculin,Purif.prot.deriv. 50 TU/ML Vial 0.1 ML ID (13:22)
[2021-06-22 14:06] LABS: Bedside Glucose 258 mg/dL (70-110)
[2021-06-22 16:00] VITALS: BP 121/49; PULSE 56; RESP 14; TEMP 36.2; O2SAT 98
[2021-06-22 17:31] LABS: Bedside Glucose 98 mg/dL (70-110)
[2021-06-22] MEDS: oxyCODONE 5 MG Tablet PO (20:40)
[2021-06-22] MEDS: Atorvastatin Calcium 20 MG Tablet PO (20:41)
[2021-06-22 23:41] LABS: Bedside Glucose 195 mg/dL (70-110)
[2021-06-23] MEDS: Polyethylene Glycol 3350 17 GM PACKET PO ×2 (05:18→05:20)
[2021-06-23] MEDS: Acetaminophen 500 MG Tablet 1000 MG PO ×3 (05:18→21:02)
[2021-06-23] MEDS: Isosorbide Mononitrate 60 MG Tablet PO (05:19)
[2021-06-23] MEDS: APIXABAN 2.5 MG TABLET PO ×2 (05:19→17:39)
[2021-06-23] MEDS: Pantoprazole Sodium 40 MG Tablet PO (05:19)
[2021-06-23] MEDS: Lisinopril 20 MG Tablet PO (05:19)
[2021-06-23] MEDS: Senna/Docusate Sodium 1 Tablet PO ×2 (05:19→17:39)
[2021-06-23] MEDS: Furosemide 40 MG Tablet PO (05:20)
[2021-06-23] MEDS: Atenolol 50 MG Tablet PO (05:20)
[2021-06-23] MEDS: Sertraline 100 MG Tablet PO (05:20)
[2021-06-23] MEDS: Menthol/Lanolin/Calamine/Znox 113 GM Tube 1 APPLIC TOPICAL ×2 (05:25→17:40)
[2021-06-23] MEDS: Nystatin Powder 15gm Bottle 1 APPLIC TOPICAL ×2 (05:26→17:40)
[2021-06-23 05:28] VITALS: BP 155/44; PULSE 60; RESP 15; O2SAT 95
[2021-06-23 06:25] LABS: Bedside Glucose 145 mg/dL (70-110)
[2021-06-23] MEDS: Potassium Chloride Oral Tablet 20 MEQ PO ×2 (08:09→17:39)
[2021-06-23] MEDS: Iron Polysaccharide Complex 150 MG CAPSULE PO (08:09)
[2021-06-23] MEDS: Glucerna Shake 120 ML LIQUID PO ×3 (08:16→17:39)
[2021-06-23 10:00] VITALS: PULSE 61; RESP 16; O2SAT 98
[2021-06-23] MEDS: oxyCODONE 5 MG Tablet PO ×2 (12:18→16:32)
[2021-06-23 12:45] LABS: Bedside Glucose 203 mg/dL (70-110)
[2021-06-23 14:36] VITALS: BP 165/69; PULSE 67; RESP 16; TEMP 36; O2SAT 98
[2021-06-23] MEDS: amLODIPine 5 MG Tablet PO (16:21)
[2021-06-23 17:21] LABS: Bedside Glucose 164 mg/dL (70-110)
[2021-06-23 17:47] VITALS: BP 85/60; PULSE 61
[2021-06-23] MEDS: Atorvastatin Calcium 20 MG Tablet PO (21:02)
[2021-06-23 21:25] LABS: Bedside Glucose 199 mg/dL (70-110)
[2021-06-24 05:07] VITALS: BP 143/60; PULSE 64
[2021-06-24] MEDS: oxyCODONE 5 MG Tablet PO ×3 (05:07→21:03)
[2021-06-24] MEDS: Pantoprazole Sodium 40 MG Tablet PO (05:08)
[2021-06-24] MEDS: Lisinopril 20 MG Tablet PO ×2 (05:08→17:50)
[2021-06-24] MEDS: Acetaminophen 500 MG Tablet 1000 MG PO ×3 (05:08→21:04)
[2021-06-24] MEDS: Furosemide 40 MG Tablet PO (05:08)
[2021-06-24] MEDS: Isosorbide Mononitrate 60 MG Tablet PO (05:09)
[2021-06-24] MEDS: Atenolol 50 MG Tablet PO (05:09)
[2021-06-24] MEDS: Sertraline 100 MG Tablet PO (05:09)
[2021-06-24] MEDS: Senna/Docusate Sodium 1 Tablet PO ×2 (05:09→17:50)
[2021-06-24] MEDS: APIXABAN 2.5 MG TABLET PO ×2 (05:09→17:50)
[2021-06-24] MEDS: amLODIPine 5 MG Tablet PO (05:09)
[2021-06-24] MEDS: Menthol/Lanolin/Calamine/Znox 113 GM Tube 1 APPLIC TOPICAL ×2 (05:12→17:50)
[2021-06-24] MEDS: Nystatin Powder 15gm Bottle 1 APPLIC TOPICAL ×2 (05:13→17:51)
[2021-06-24 06:21] LABS: Bedside Glucose 162 mg/dL (70-110)
[2021-06-24] MEDS: Iron Polysaccharide Complex 150 MG CAPSULE PO (08:00)
[2021-06-24] MEDS: Potassium Chloride Oral Tablet 20 MEQ PO ×2 (08:00→17:50)
[2021-06-24] MEDS: Glucerna Shake 120 ML LIQUID PO ×3 (09:03→17:54)
[2021-06-24 11:21] LABS: Bedside Glucose 212 mg/dL (70-110)
[2021-06-24 15:07] VITALS: BP 133/59; PULSE 59; RESP 16; TEMP 36.4; O2SAT 96
[2021-06-24 16:26] LABS: Bedside Glucose 255 mg/dL (70-110)
[2021-06-24] MEDS: Atorvastatin Calcium 20 MG Tablet PO (21:04)
[2021-06-24 22:05] LABS: Bedside Glucose 146 mg/dL (70-110)
[2021-06-25 05:33] VITALS: BP 141/66; PULSE 61
[2021-06-25] MEDS: Pantoprazole Sodium 40 MG Tablet PO (05:34)
[2021-06-25] MEDS: Sertraline 100 MG Tablet PO (05:34)
[2021-06-25] MEDS: APIXABAN 2.5 MG TABLET PO ×2 (05:34→17:41)
[2021-06-25] MEDS: Lisinopril 20 MG Tablet PO ×2 (05:34→17:41)
[2021-06-25] MEDS: amLODIPine 5 MG Tablet PO (05:35)
[2021-06-25] MEDS: Furosemide 40 MG Tablet PO (05:35)
[2021-06-25] MEDS: Isosorbide Mononitrate 60 MG Tablet PO (05:35)
[2021-06-25] MEDS: Senna/Docusate Sodium 1 Tablet PO ×2 (05:35→17:41)
[2021-06-25] MEDS: Acetaminophen 500 MG Tablet 1000 MG PO ×3 (05:36→21:08)
[2021-06-25] MEDS: Atenolol 50 MG Tablet PO (05:36)
[2021-06-25] MEDS: Polyethylene Glycol 3350 17 GM PACKET PO (05:39)
[2021-06-25] MEDS: Nystatin Powder 15gm Bottle 1 APPLIC TOPICAL ×2 (05:43→17:43)
[2021-06-25] MEDS: Menthol/Lanolin/Calamine/Znox 113 GM Tube 1 APPLIC TOPICAL ×2 (05:44→17:42)
[2021-06-25 07:01] LABS: Bedside Glucose 132 mg/dL (70-110)
[2021-06-25] MEDS: Potassium Chloride Oral Tablet 20 MEQ PO ×2 (08:09→17:41)
[2021-06-25] MEDS: Iron Polysaccharide Complex 150 MG CAPSULE PO (08:10)
[2021-06-25] MEDS: Glucerna Shake 120 ML LIQUID PO ×3 (08:10→17:41)
[2021-06-25] MEDS: oxyCODONE 5 MG Tablet PO (08:13)
[2021-06-25 10:41] LABS: Bedside Glucose 198 mg/dL (70-110)
[2021-06-25 13:46] VITALS: PULSE 57; RESP 16; O2SAT 99
[2021-06-25 16:09] VITALS: BP 132/44; PULSE 53; RESP 18; TEMP 36; O2SAT 96
[2021-06-25 17:10] LABS: Bedside Glucose 118 mg/dL (70-110)
[2021-06-25] MEDS: Atorvastatin Calcium 20 MG Tablet PO (21:10)
[2021-06-25 21:25] LABS: Bedside Glucose 162 mg/dL (70-110)
--- NOTE | 2021-06-25 23:15 | NURSING ---
Attempt to obtain patient weight due to unable to be obtained earlier in the day per day nurse, pt. refused to stand for weight despite encouragement and education. States I will do it tomorrow.
[2021-06-26 06:31] LABS: Bedside Glucose 144 mg/dL (70-110)
[2021-06-26] MEDS: Menthol/Lanolin/Calamine/Znox 113 GM Tube 1 APPLIC TOPICAL ×2 (06:36→17:54)
[2021-06-26] MEDS: Acetaminophen 500 MG Tablet 1000 MG PO ×2 (06:37→13:19)
[2021-06-26] MEDS: Polyethylene Glycol 3350 17 GM PACKET PO (06:37)
[2021-06-26] MEDS: Pantoprazole Sodium 40 MG Tablet PO (06:38)
[2021-06-26] MEDS: APIXABAN 2.5 MG TABLET PO ×2 (06:38→17:56)
[2021-06-26] MEDS: Senna/Docusate Sodium 1 Tablet PO ×2 (06:38→17:56)
[2021-06-26] MEDS: Furosemide 40 MG Tablet PO (06:38)
[2021-06-26] MEDS: Sertraline 100 MG Tablet PO (06:38)
[2021-06-26] MEDS: Isosorbide Mononitrate 60 MG Tablet PO (06:38)
[2021-06-26] MEDS: Atenolol 50 MG Tablet PO (06:38)
[2021-06-26] MEDS: Lisinopril 20 MG Tablet PO ×2 (06:38→17:57)
[2021-06-26] MEDS: amLODIPine 5 MG Tablet PO (06:38)
[2021-06-26] MEDS: Nystatin Powder 15gm Bottle 1 APPLIC TOPICAL ×2 (06:39→17:55)
[2021-06-26 06:50] VITALS: BP 175/46; PULSE 60; RESP 16
--- NOTE | 2021-06-26 07:18 | MDS.RN ---
Information for the mds was obtained from review of the clinical record, interview of resident, staff, and direct observation of resident's care.
[2021-06-26] MEDS: Potassium Chloride Oral Tablet 20 MEQ PO ×2 (08:04→17:56)
[2021-06-26] MEDS: Glucerna Shake 120 ML LIQUID PO ×3 (08:04→17:54)
[2021-06-26] MEDS: oxyCODONE 5 MG Tablet PO ×3 (09:13→21:17)
[2021-06-26 10:00] VITALS: O2SAT 97
[2021-06-26 16:46] VITALS: BP 157/76; PULSE 58; RESP 15; TEMP 36.1; O2SAT 94
[2021-06-26 17:10] LABS: Bedside Glucose 204 mg/dL (70-110)
[2021-06-26] MEDS: Atorvastatin Calcium 20 MG Tablet PO (21:18)
[2021-06-26 21:26] LABS: Bedside Glucose 214 mg/dL (70-110)
[2021-06-27] MEDS: Polyethylene Glycol 3350 17 GM PACKET PO (05:35)
[2021-06-27] MEDS: Senna/Docusate Sodium 1 Tablet PO ×2 (05:36→17:54)
[2021-06-27] MEDS: Acetaminophen 500 MG Tablet 1000 MG PO ×3 (05:36→21:39)
[2021-06-27] MEDS: Sertraline 100 MG Tablet PO (05:36)
[2021-06-27] MEDS: Furosemide 40 MG Tablet PO (05:36)
[2021-06-27] MEDS: Pantoprazole Sodium 40 MG Tablet PO (05:36)
[2021-06-27] MEDS: APIXABAN 2.5 MG TABLET PO ×2 (05:37→17:54)
[2021-06-27] MEDS: Menthol/Lanolin/Calamine/Znox 113 GM Tube 1 APPLIC TOPICAL ×2 (05:38→17:54)
[2021-06-27] MEDS: Nystatin Powder 15gm Bottle 1 APPLIC TOPICAL ×2 (05:39→17:54)
[2021-06-27 07:05] LABS: Bedside Glucose 154 mg/dL (70-110)
[2021-06-27 07:11] VITALS: BP 146/31; PULSE 59
--- NOTE | 2021-06-27 07:45 | NURSING ---
Pt's Blood pressure 166/33 Pulse [address] Roca updated okay to give Blood pressure medications and recheck BP. Will continue to monitor pt.
[2021-06-27] MEDS: Atenolol 50 MG Tablet PO (07:55)
[2021-06-27] MEDS: amLODIPine 5 MG Tablet PO (07:55)
[2021-06-27] MEDS: Isosorbide Mononitrate 60 MG Tablet PO (07:55)
[2021-06-27] MEDS: Lisinopril 20 MG Tablet PO ×2 (07:55→17:53)
[2021-06-27] MEDS: Potassium Chloride Oral Tablet 20 MEQ PO ×2 (07:56→17:55)
[2021-06-27] MEDS: Iron Polysaccharide Complex 150 MG CAPSULE PO (07:56)
[2021-06-27] MEDS: Glucerna Shake 120 ML LIQUID PO ×3 (07:57→17:56)
[2021-06-27] MEDS: oxyCODONE 5 MG Tablet PO (10:03)
--- NOTE | 2021-06-27 10:05 | CASEMGMT ---
Social Work Met with patient in room to follow up on status of Medicaid application and SNF options. Patient reports to not be sure and would like this social welfare clerk to contact patient daughter, Ailyn in regards to above questions. This social welfare clerk checking in to how patient is doing. Patient states to be tired today and to be discouraged with the little progress. This social welfare clerk provided active listening, encouragement and support. Telephone call to Ailyn, Ailyn reports to have not had a chance to complete medicaid application. This social welfare clerk communicate that insurance approved another week with next update due on 07/04/2021, but that the Medicaid application process takes time and that this social welfare clerk highly recommends for Ailyn to have medicaid application completed CAROL. Ailyn voiced understanding and plans to start the application today or tomorrow. This social welfare clerk inquired if Ailyn is open to social welfare clerk continuing to follow up with Ailyn on status of application, Ailyn is agreeable to social welfare clerk following up with Ailyn. This social welfare clerk encouraged Ailyn to call with questions. Ailyn reports to understand where Ailyn needs to go to complete application. Will continue to follow. Parker MANCERA, TEMO
--- NOTE | 2021-06-27 10:06 | NURSING ---
Pt stated to this nurse, AUTOMATIC MACHINES SUPERVISOR'paloma Wong that at her Doctors appt yesterday they stated there were finger prints to her left hip. Assessed left hip and there was noted bursing to right hip that was initially charted on her admission date.
--- NOTE | 2021-06-27 10:12 | NURSING ---
Pt stated to this nurse, VALVING MACHINE OPERATOR's Marvin that at her Doctors appt yesterday they stated there were finger prints to her left hip. Assessed left hip and there was noted faint Ecchymosis to left hip by surgical incision that was initially charted on her admission date. When further asking pt what exactly they said at her Doctors appt she retracted her statement stating well maybe that's not what they said and was bruising from surgery. Pt incontinent of bowel and bladder at this time pt was cleaned and transferred to wheelchair. Pt medicated for pain with prn oxycodone.
[2021-06-27 10:46] LABS: Bedside Glucose 238 mg/dL (70-110)
--- NOTE | 2021-06-27 11:15 | PT ---
Pt reports physician stated bruising on her L leg looked like bruising from fingerprints. Spoke with Dr. Keith and per physician he did not say bruising was from fingerprints. He stated she would have bruising due to having a hip fracture and post surgery bruising. In physician's note it also stated pt stated she felt therapy was impatient with her. Reported to physician this was not the case and pt was unable to tolerate standing today and was unable to ambulate due to c/o pain. Physician ordered x-rays of pt's L hip and reported orders to JUDSON Johns.
[2021-06-27 14:11] VITALS: BP 128/40; PULSE 58; RESP 18; TEMP 36.6; O2SAT 98
--- NOTE | 2021-06-27 14:40 | RAD_ITS ---
STUDY: X-RAY - LEFT FEMUR REASON FOR STUDY: Female, 81 years old. Pain TECHNIQUE: 4 view(s) of the femur. COMPARISON: Comparison is made with prior study 06/12/2021. FINDINGS: The patient is status post intramedullary reina and screw fixation of the comminuted intertrochanteric fracture of the proximal left femur. There is good alignment. Soft tissue swelling. RAD/Femur Min 2 Views IMPRESSION: Status post open reduction and internal fixation of the comminuted left intertrochanteric fracture utilizing an intramedullary reina fixation device and compressive screw. Electronically Signed: Crow Avalos MD at 15:32 EDT , Service support ,
--- NOTE | 2021-06-27 15:57 | NURSING ---
CALLED AND STATED THAT HE LOOKED AT HER X RAYS ON HER HIP AND STATED THAT THERE WAS NO CONCERN AND SHE CAN CONTINUE WITH THERAPY. RN AWARE
[2021-06-27 16:50] LABS: Bedside Glucose 174 mg/dL (70-110)
[2021-06-27 17:59] VITALS: BP 145/63; PULSE 57
[2021-06-27 18:50] LABS: Mucous, Urine 0 SEEN /hpf (<or=2+); Red Blood Cells-Urine 0 SEEN /hpf (0-5); Squamous Epithelial Cells - UA 0 SEEN /hpf (5-10)
[2021-06-27 18:53] LABS: Color, Urine Yellow (Yellow); Glucose, Dipstick Normal (Normal); Ketone-Dipstick Negative (Negative); Leukocyte Esterase-Dipstick 500 /ul (Negative); Nitrite-Dipstick Positive (Negative); Occult Blood-Urine 50 /ul (Negative); Protein-Dipstick 30 mg/dl (Negative); Specific Gravity, Urine 1.015 (1.002-1.030); Urine Bilirubin Dipstick Negative (Negative); Urine Clarity Cloudy (Clear); Urine Urobilinogen Normal (Normal)
[2021-06-27 19:38] LABS: Bacteria 4+ /hpf (None Seen); White Blood Cells >100 SEEN /hpf (0-5)
--- NOTE | 2021-06-27 19:55 | NURSING ---
Addendum entered by Chelsie Hernandez 06/28/21 01:18: New order received for Cipro 250 bid through 07/04/21 Original Note: contacted via telephone to notify of urine lab results, states will enter orders.
[2021-06-27] MEDS: Atorvastatin Calcium 20 MG Tablet PO (21:39)
[2021-06-27] MEDS: Ciprofloxacin 250 MG Tablet PO (21:56)
[2021-06-27 22:16] LABS: Bedside Glucose 149 mg/dL (70-110)
[2021-06-28 05:10] VITALS: BP 149/60; PULSE 64; RESP 14; TEMP 36.3; O2SAT 98
[2021-06-28] MEDS: Menthol/Lanolin/Calamine/Znox 113 GM Tube 1 APPLIC TOPICAL ×2 (05:12→17:53)
[2021-06-28] MEDS: Polyethylene Glycol 3350 17 GM PACKET PO (05:13)
[2021-06-28] MEDS: Ciprofloxacin 250 MG Tablet PO ×2 (05:14→17:53)
[2021-06-28] MEDS: Lisinopril 20 MG Tablet PO ×2 (05:15→17:53)
[2021-06-28] MEDS: APIXABAN 2.5 MG TABLET PO ×2 (05:15→17:53)
[2021-06-28] MEDS: Acetaminophen 500 MG Tablet 1000 MG PO ×3 (05:15→22:22)
[2021-06-28] MEDS: Senna/Docusate Sodium 1 Tablet PO (05:16)
[2021-06-28] MEDS: Furosemide 40 MG Tablet PO (05:16)
[2021-06-28] MEDS: Isosorbide Mononitrate 60 MG Tablet PO (05:16)
[2021-06-28] MEDS: Sertraline 100 MG Tablet PO (05:16)
[2021-06-28] MEDS: Pantoprazole Sodium 40 MG Tablet PO (05:16)
[2021-06-28] MEDS: Nystatin Powder 15gm Bottle 1 APPLIC TOPICAL ×2 (05:16→17:53)
[2021-06-28] MEDS: amLODIPine 5 MG Tablet PO (05:16)
[2021-06-28] MEDS: Atenolol 50 MG Tablet PO (05:16)
[2021-06-28 06:21] LABS: Bedside Glucose 127 mg/dL (70-110)
[2021-06-28] MEDS: Potassium Chloride Oral Tablet 20 MEQ PO ×2 (08:02→17:53)
[2021-06-28] MEDS: Iron Polysaccharide Complex 150 MG CAPSULE PO (08:03)
[2021-06-28] MEDS: Glucerna Shake 120 ML LIQUID PO ×3 (08:03→17:55)
[2021-06-28] MEDS: oxyCODONE 5 MG Tablet PO (09:04)
[2021-06-28 11:04] LABS: Bedside Glucose 267 mg/dL (70-110)
[2021-06-28 11:53] VITALS: BP 136/69; PULSE 64; RESP 16; TEMP 35.7; O2SAT 96
--- NOTE | 2021-06-28 12:25 | PT ---
When this PRODUCTION CLOTH CUTTER entered room, pt stated she was not walking today. Pt also stated per nursing she was not able to put weight on LLE. JUDSON Wisdom called into room. Alyx informed pt she is able to put weight on LLE and she should participate with therapy.
[2021-06-28 17:15] LABS: Bedside Glucose 186 mg/dL (70-110)
[2021-06-28 19:22] VITALS: PULSE 65; RESP 16; O2SAT 98
[2021-06-28 21:35] LABS: Bedside Glucose 207 mg/dL (70-110)
[2021-06-28] MEDS: Atorvastatin Calcium 20 MG Tablet PO (22:22)
[2021-06-29 04:23] VITALS: BP 150/46; PULSE 65
[2021-06-29] MEDS: Lisinopril 20 MG Tablet PO ×2 (04:27→17:41)
[2021-06-29] MEDS: Polyethylene Glycol 3350 17 GM PACKET PO (04:27)
[2021-06-29] MEDS: Atenolol 50 MG Tablet PO (04:27)
[2021-06-29] MEDS: Sertraline 100 MG Tablet PO (04:27)
[2021-06-29] MEDS: Pantoprazole Sodium 40 MG Tablet PO (04:28)
[2021-06-29] MEDS: Furosemide 40 MG Tablet PO (04:28)
[2021-06-29] MEDS: APIXABAN 2.5 MG TABLET PO ×2 (04:28→17:41)
[2021-06-29] MEDS: amLODIPine 5 MG Tablet PO (04:28)
[2021-06-29] MEDS: Ciprofloxacin 250 MG Tablet PO ×2 (04:28→17:41)
[2021-06-29] MEDS: Senna/Docusate Sodium 1 Tablet PO (04:28)
[2021-06-29] MEDS: Nystatin Powder 15gm Bottle 1 APPLIC TOPICAL ×2 (04:29→17:41)
[2021-06-29] MEDS: Acetaminophen 500 MG Tablet 1000 MG PO ×3 (04:29→21:18)
[2021-06-29] MEDS: Isosorbide Mononitrate 60 MG Tablet PO (04:29)
[2021-06-29] MEDS: Menthol/Lanolin/Calamine/Znox 113 GM Tube 1 APPLIC TOPICAL ×2 (04:30→17:41)
[2021-06-29 06:36] LABS: Bedside Glucose 138 mg/dL (70-110)
[2021-06-29] MEDS: Glucerna Shake 120 ML LIQUID PO ×3 (08:06→17:42)
[2021-06-29] MEDS: Potassium Chloride Oral Tablet 20 MEQ PO ×2 (08:07→17:41)
[2021-06-29] MEDS: Iron Polysaccharide Complex 150 MG CAPSULE PO (08:07)
[2021-06-29] MEDS: oxyCODONE 5 MG Tablet PO (08:09)
[2021-06-29 08:36] LABS: Absolute Lymphocyte Count 1.98 X10^3/uL (0.83-4.51); Absolute Neutrophil Count 7.8 X10^3/uL (2.0-7.7); Basophil# 0.09 X10^3/uL; Basophil% 0.8 % (0-1); Eosinophil# 0.32 X10^3/uL; Eosinophils% 2.9 % (0-5); Hematocrit 30.1 % (37-47); Hemoglobin 9.2 g/dL (12.0-15.0); Lymphocyte # 1.98 X10^3/ul (0.83-4.51); Lymphocyte % 17.9 % (19-41); Mean Corp Hgb Conc 30.6 g/dL (32-36); Mean Corpuscular Hgb 28.4 pg (27.0-32.0); Mean Corpuscular Volume 92.9 fL (81-99); Monocyte# 0.79 X10^3/uL; Monocyte% 7.1 % (0-10); NRBC Flagged by Analyzer 0 % (0-5); Neutrophil # 7.78 X10^3/uL (2.7-7.7); Neutrophil % 70.3 % (47-70); Platelet Count 395 K/mm3 (150-450); RBC Distribution Width CV 16.7 % (11.6-14.6); RBC Distribution Width SD 56.9 fl (35.1-43.9); Red Blood Count 3.24 M/mm3 (4.2-5.4); White Blood Count 11.1 K/mm3 (4.4-11.0)
[2021-06-29 09:04] LABS: Anion Gap 5 (5-15); BUN 28 mg/dL (7-18); BUN/Creat Ratio 37.3 RATIO (10-20); Calcium,Total 9.4 mg/dL (8.5-10.1); Chloride 106 mmol/L (98-107); Creatinine, Serum 0.75 mg/dL (0.55-1.02); EST Glomerular Filtration Rate 79 mL/min (>60); Est Glom Filt Rate - Afr Amer 95 mL/min (>60); Estimated Creatinine Clearance 31.69 ml/min; Glucose 142 mg/dL (74-106); Potassium 4.3 mmol/L (3.5-5.1); Sodium Level 138 mmol/L (136-145)
[2021-06-29 09:50] VITALS: PULSE 53; RESP 16; O2SAT 98
[2021-06-29 11:21] LABS: Bedside Glucose 202 mg/dL (70-110)
[2021-06-29 16:00] VITALS: BP 131/72; PULSE 58; RESP 16; TEMP 36.6; O2SAT 95
[2021-06-29 16:11] LABS: Bedside Glucose 145 mg/dL (70-110)
[2021-06-29] MEDS: Atorvastatin Calcium 20 MG Tablet PO (21:18)
[2021-06-29 21:46] LABS: Bedside Glucose 220 mg/dL (70-110)
[2021-06-30] MEDS: Isosorbide Mononitrate 60 MG Tablet PO (04:50)
[2021-06-30] MEDS: Pantoprazole Sodium 40 MG Tablet PO (04:50)
[2021-06-30] MEDS: Lisinopril 20 MG Tablet PO ×2 (04:50→17:22)
[2021-06-30] MEDS: Atenolol 50 MG Tablet PO (04:50)
[2021-06-30] MEDS: Sertraline 100 MG Tablet PO (04:50)
[2021-06-30] MEDS: amLODIPine 5 MG Tablet PO (04:50)
[2021-06-30] MEDS: Furosemide 40 MG Tablet PO (04:50)
[2021-06-30] MEDS: Ciprofloxacin 250 MG Tablet PO ×2 (04:50→17:22)
[2021-06-30] MEDS: Senna/Docusate Sodium 1 Tablet PO ×2 (04:50→17:22)
[2021-06-30] MEDS: APIXABAN 2.5 MG TABLET PO ×2 (04:51→17:22)
[2021-06-30] MEDS: Acetaminophen 500 MG Tablet 1000 MG PO ×3 (04:51→21:46)
[2021-06-30] MEDS: Menthol/Lanolin/Calamine/Znox 113 GM Tube 1 APPLIC TOPICAL ×2 (04:52→17:22)
[2021-06-30] MEDS: Nystatin Powder 15gm Bottle 1 APPLIC TOPICAL ×2 (04:53→17:23)
[2021-06-30] MEDS: Polyethylene Glycol 3350 17 GM PACKET PO (04:53)
[2021-06-30 04:58] VITALS: BP 145/73; PULSE 79
[2021-06-30 06:36] LABS: Bedside Glucose 148 mg/dL (70-110)
[2021-06-30] MEDS: Potassium Chloride Oral Tablet 20 MEQ PO ×2 (08:01→17:22)
[2021-06-30] MEDS: Glucerna Shake 120 ML LIQUID PO ×3 (08:01→17:22)
[2021-06-30] MEDS: Iron Polysaccharide Complex 150 MG CAPSULE PO (08:01)
[2021-06-30 10:00] VITALS: RESP 18
[2021-06-30 11:11] LABS: Bedside Glucose 217 mg/dL (70-110)
[2021-06-30 14:19] VITALS: BP 122/59; PULSE 56; RESP 16; TEMP 36; O2SAT 98
[2021-06-30 16:20] LABS: Bedside Glucose 200 mg/dL (70-110)
[2021-06-30] MEDS: Atorvastatin Calcium 20 MG Tablet PO (21:46)
[2021-06-30 22:00] LABS: Bedside Glucose 194 mg/dL (70-110)
--- NOTE | 2021-06-30 22:36 | NURSING ---
Per Dr. Roca via telephone, ok to to change accuchecks to daily in AM.
[2021-07-01] MEDS: Menthol/Lanolin/Calamine/Znox 113 GM Tube 1 APPLIC TOPICAL ×3 (05:29→18:22)
[2021-07-01] MEDS: APIXABAN 2.5 MG TABLET PO ×2 (05:30→18:21)
[2021-07-01] MEDS: Ciprofloxacin 250 MG Tablet PO ×2 (05:30→18:21)
[2021-07-01] MEDS: Furosemide 40 MG Tablet PO (05:30)
[2021-07-01] MEDS: Pantoprazole Sodium 40 MG Tablet PO (05:31)
[2021-07-01] MEDS: Polyethylene Glycol 3350 17 GM PACKET PO (05:31)
[2021-07-01] MEDS: Senna/Docusate Sodium 1 Tablet PO ×2 (05:32→18:21)
[2021-07-01] MEDS: Sertraline 100 MG Tablet PO (05:32)
[2021-07-01] MEDS: Lisinopril 20 MG Tablet PO ×2 (05:37→18:21)
[2021-07-01] MEDS: Acetaminophen 500 MG Tablet 1000 MG PO ×3 (05:37→21:27)
[2021-07-01] MEDS: Atenolol 50 MG Tablet PO (05:38)
[2021-07-01] MEDS: amLODIPine 5 MG Tablet PO (05:38)
[2021-07-01] MEDS: Nystatin Powder 15gm Bottle 1 APPLIC TOPICAL ×2 (05:38→18:22)
[2021-07-01] MEDS: Isosorbide Mononitrate 60 MG Tablet PO (05:38)
[2021-07-01 06:51] LABS: Bedside Glucose 139 mg/dL (70-110)
[2021-07-01] MEDS: Glucerna Shake 120 ML LIQUID PO ×3 (06:56→18:24)
[2021-07-01] MEDS: Potassium Chloride Oral Tablet 20 MEQ PO ×2 (07:46→18:20)
[2021-07-01] MEDS: Iron Polysaccharide Complex 150 MG CAPSULE PO (07:47)
--- NOTE | 2021-07-01 10:41 | WOUNDNOTE ---
Pt is currently up in the chair. will assess buttocks later when patient is back in bed.
--- NOTE | 2021-07-01 10:46 | CASEMGMT ---
Social Work Telephone call to patient daughter, Ailyn. This social media coordinator inquiring about status of Medicaid application. Ailyn reports to have submitted application on via on-line. This social media coordinator inquiring if Ailyn has picked out which retirement. Ailyn reports to plan to look in to a few this week yet. This social media coordinator stressed the importance of having retirement choices CAROL as unsure of how long insurance will continue to approve and update is due on 07/04. Ailyn voicing understanding and agreeable to this social media coordinator calling Ailyn tomorrow or by the latest Thursday morning. Will continue to follow. Parker MANCERA, TEMO
--- NOTE | 2021-07-01 13:45 | WOUNDNOTE ---
In to reassess buttocks. Redness is much improved and less friction noted. patient states discomfort has improved as well.
[2021-07-01 14:18] VITALS: BP 108/32; PULSE 84; RESP 17; TEMP 36.9; O2SAT 96
[2021-07-01 18:26] VITALS: BP 139/84; PULSE 65
[2021-07-01] MEDS: Atorvastatin Calcium 20 MG Tablet PO (21:27)
[2021-07-02 06:25] VITALS: BP 169/42; PULSE 61
[2021-07-02] MEDS: Acetaminophen 500 MG Tablet 1000 MG PO ×3 (06:26→20:15)
[2021-07-02] MEDS: Lisinopril 20 MG Tablet PO ×2 (06:26→17:35)
[2021-07-02] MEDS: Furosemide 40 MG Tablet PO (06:27)
[2021-07-02] MEDS: Atenolol 50 MG Tablet PO (06:27)
[2021-07-02] MEDS: Ciprofloxacin 250 MG Tablet PO ×2 (06:27→17:35)
[2021-07-02] MEDS: Sertraline 100 MG Tablet PO (06:27)
[2021-07-02] MEDS: Isosorbide Mononitrate 60 MG Tablet PO (06:27)
[2021-07-02] MEDS: amLODIPine 5 MG Tablet PO (06:27)
[2021-07-02] MEDS: Pantoprazole Sodium 40 MG Tablet PO (06:27)
[2021-07-02] MEDS: Senna/Docusate Sodium 1 Tablet PO (06:27)
[2021-07-02] MEDS: APIXABAN 2.5 MG TABLET PO ×2 (06:28→17:35)
[2021-07-02] MEDS: Nystatin Powder 15gm Bottle 1 APPLIC TOPICAL ×2 (06:30→17:35)
[2021-07-02 06:36] LABS: Bedside Glucose 108 mg/dL (70-110)
[2021-07-02] MEDS: Iron Polysaccharide Complex 150 MG CAPSULE PO (07:42)
[2021-07-02] MEDS: Potassium Chloride Oral Tablet 20 MEQ PO ×2 (07:42→17:35)
[2021-07-02] MEDS: Glucerna Shake 120 ML LIQUID PO ×3 (07:43→17:36)
--- NOTE | 2021-07-02 08:56 | CASEMGMT ---
Social Work This director of social media marketing inquiring with [employer] about pending Medicaid Number. Per [employer] no application has been received. Telephone call to patient daughter, Ailyn. This director of social media marketing updated Ailyn on above. Ailyn voicing understanding and plans to bring hard copy of application for Medicaid to [employer] [facility] today. Will continue to follow. Parker MANCERA, ASHLEY-S
[2021-07-02] MEDS: oxyCODONE 5 MG Tablet PO (12:14)
[2021-07-02 14:26] VITALS: BP 127/78; PULSE 69; RESP 18; TEMP 36.4; O2SAT 96
[2021-07-02] MEDS: Menthol/Lanolin/Calamine/Znox 113 GM Tube 1 APPLIC TOPICAL ×2 (17:35→20:16)
[2021-07-02] MEDS: Atorvastatin Calcium 20 MG Tablet PO (20:15)
[2021-07-02 22:21] VITALS: PULSE 62; RESP 16
[2021-07-03] MEDS: Furosemide 40 MG Tablet PO (06:20)
[2021-07-03] MEDS: Isosorbide Mononitrate 60 MG Tablet PO (06:20)
[2021-07-03] MEDS: APIXABAN 2.5 MG TABLET PO ×2 (06:20→18:10)
[2021-07-03] MEDS: Acetaminophen 500 MG Tablet 1000 MG PO ×3 (06:20→20:37)
[2021-07-03] MEDS: Ciprofloxacin 250 MG Tablet PO ×2 (06:20→20:36)
[2021-07-03] MEDS: amLODIPine 5 MG Tablet PO (06:21)
[2021-07-03] MEDS: Sertraline 100 MG Tablet PO (06:21)
[2021-07-03] MEDS: Pantoprazole Sodium 40 MG Tablet PO (06:21)
[2021-07-03] MEDS: Senna/Docusate Sodium 1 Tablet PO (06:21)
[2021-07-03] MEDS: Nystatin Powder 15gm Bottle 1 APPLIC TOPICAL ×2 (06:21→18:10)
[2021-07-03] MEDS: Atenolol 50 MG Tablet PO (06:21)
[2021-07-03] MEDS: Lisinopril 20 MG Tablet PO ×2 (06:21→18:11)
[2021-07-03] MEDS: Glucerna Shake 120 ML LIQUID PO ×3 (06:30→18:13)
[2021-07-03 06:31] LABS: Bedside Glucose 135 mg/dL (70-110)
[2021-07-03] MEDS: Iron Polysaccharide Complex 150 MG CAPSULE PO (08:01)
[2021-07-03] MEDS: Potassium Chloride Oral Tablet 20 MEQ PO ×2 (08:01→18:12)
[2021-07-03] MEDS: oxyCODONE 5 MG Tablet PO (11:31)
--- NOTE | 2021-07-03 12:10 | CASEMGMT ---
Social Work Telephone call to patient daughter, Ailyn. No answer. Voicemail left requesting return phone call. Will continue to follow. Parker MANCERA, JYOTIS
--- NOTE | 2021-07-03 14:50 | CASEMGMT ---
Social Work Attempted to contact patient daughter, Ailyn for a second time. No answer. Will continue to follow. Parker Rai MSW, TEMO
[2021-07-03 16:00] VITALS: BP 116/67; PULSE 56; RESP 16; TEMP 36.2; O2SAT 98
[2021-07-03] MEDS: Menthol/Lanolin/Calamine/Znox 113 GM Tube 1 APPLIC TOPICAL (18:10)
[2021-07-03] MEDS: Atorvastatin Calcium 20 MG Tablet PO (20:37)
[2021-07-03 22:41] VITALS: PULSE 68; RESP 16; O2SAT 99
[2021-07-04 05:45] VITALS: BP 154/67; PULSE 69
[2021-07-04] MEDS: Polyethylene Glycol 3350 17 GM PACKET PO (05:45)
[2021-07-04] MEDS: Nystatin Powder 15gm Bottle 1 APPLIC TOPICAL ×2 (05:45→17:40)
[2021-07-04] MEDS: Sertraline 100 MG Tablet PO (05:45)
[2021-07-04] MEDS: Lisinopril 20 MG Tablet PO ×2 (05:45→17:40)
[2021-07-04] MEDS: Ciprofloxacin 250 MG Tablet PO ×2 (05:46→17:40)
[2021-07-04] MEDS: amLODIPine 5 MG Tablet PO (05:46)
[2021-07-04] MEDS: Furosemide 40 MG Tablet PO (05:46)
[2021-07-04] MEDS: Menthol/Lanolin/Calamine/Znox 113 GM Tube 1 APPLIC TOPICAL ×2 (05:46→17:41)
[2021-07-04] MEDS: Pantoprazole Sodium 40 MG Tablet PO (05:46)
[2021-07-04] MEDS: Senna/Docusate Sodium 1 Tablet PO (05:46)
[2021-07-04] MEDS: Atenolol 50 MG Tablet PO (05:46)
[2021-07-04] MEDS: Acetaminophen 500 MG Tablet 1000 MG PO ×3 (05:46→20:35)
[2021-07-04] MEDS: Isosorbide Mononitrate 60 MG Tablet PO (05:46)
[2021-07-04] MEDS: APIXABAN 2.5 MG TABLET PO ×2 (05:46→17:40)
[2021-07-04 06:31] LABS: Bedside Glucose 145 mg/dL (70-110)
[2021-07-04] MEDS: Potassium Chloride Oral Tablet 20 MEQ PO ×2 (07:38→17:40)
[2021-07-04] MEDS: Glucerna Shake 120 ML LIQUID PO ×3 (07:38→17:40)
[2021-07-04] MEDS: Iron Polysaccharide Complex 150 MG CAPSULE PO (07:39)
[2021-07-04 09:52] VITALS: PULSE 63; RESP 16; O2SAT 99
[2021-07-04] MEDS: oxyCODONE 5 MG Tablet PO (10:26)
--- NOTE | 2021-07-04 11:41 | CASEMGMT ---
Addendum entered by Wendy Mcpherson 07/04/21 16:32: Received KELBY ben from dtr and SNF choices. Faxed KELBY to S. Referred to [facility] and [facility] cannot accept M[facility]. [facility] reviewing. Pt approved with NRD 07/10. Will continue to follow. Original Note: Social Work Spoke with dtr to follow up on DC plans. Explained insurance update is this date and could issue NOMNC. Inquired about KELBY application and SNF choices. Dtr stated she can email this worker the KELBY ben to submit along with SNF choices. The pt would like to go home, but if insurance does not allow enough time for pt to feel ready, she would go to a SNF. SW expressed understanding and encouraged to still finalize KELBY and SNF option in case pt/insurance plan does not work. Dtr agreeable. Will continue to follow. Wendy Mcpherson, FIORDALIZA DOMINGUEZ
[2021-07-04 13:49] VITALS: BP 135/65; PULSE 70; RESP 18; TEMP 36.3; O2SAT 95
[2021-07-04] MEDS: Atorvastatin Calcium 20 MG Tablet PO (20:35)
[2021-07-05] MEDS: Nystatin Powder 15gm Bottle 1 APPLIC TOPICAL ×2 (04:56→16:49)
[2021-07-05] MEDS: Menthol/Lanolin/Calamine/Znox 113 GM Tube 1 APPLIC TOPICAL ×2 (04:56→16:48)
[2021-07-05] MEDS: Pantoprazole Sodium 40 MG Tablet PO (04:57)
[2021-07-05] MEDS: Atenolol 50 MG Tablet PO (04:57)
[2021-07-05] MEDS: Lisinopril 20 MG Tablet PO ×2 (04:57→16:47)
[2021-07-05] MEDS: Isosorbide Mononitrate 60 MG Tablet PO (04:57)
[2021-07-05] MEDS: amLODIPine 5 MG Tablet PO (04:57)
[2021-07-05] MEDS: Furosemide 40 MG Tablet PO (04:57)
[2021-07-05] MEDS: Sertraline 100 MG Tablet PO (04:57)
[2021-07-05] MEDS: Polyethylene Glycol 3350 17 GM PACKET PO (04:57)
[2021-07-05] MEDS: Acetaminophen 500 MG Tablet 1000 MG PO ×3 (04:57→20:42)
[2021-07-05] MEDS: APIXABAN 2.5 MG TABLET PO ×2 (04:57→16:47)
[2021-07-05 05:03] VITALS: BP 150/56; PULSE 62
[2021-07-05 06:40] LABS: Bedside Glucose 167 mg/dL (70-110)
[2021-07-05] MEDS: Glucerna Shake 120 ML LIQUID PO ×3 (08:45→16:47)
[2021-07-05] MEDS: Iron Polysaccharide Complex 150 MG CAPSULE PO (08:46)
[2021-07-05] MEDS: Potassium Chloride Oral Tablet 20 MEQ PO ×2 (08:46→16:47)
[2021-07-05 12:27] VITALS: PULSE 57; RESP 18; O2SAT 99
[2021-07-05 16:00] VITALS: BP 130/62; PULSE 56; RESP 18; TEMP 36.8; O2SAT 100
[2021-07-05] MEDS: Atorvastatin Calcium 20 MG Tablet PO (20:42)
[2021-07-06 06:26] LABS: Bedside Glucose 125 mg/dL (70-110)
[2021-07-06 06:56] LABS: Absolute Lymphocyte Count 1.36 X10^3/uL (0.83-4.51); Absolute Neutrophil Count 5.3 X10^3/uL (2.0-7.7); Basophil# 0.03 X10^3/uL; Basophil% 0.4 % (0-1); Eosinophil# 0.21 X10^3/uL; Eosinophils% 2.8 % (0-5); Hematocrit 30.8 % (37-47); Hemoglobin 9.3 g/dL (12.0-15.0); Lymphocyte # 1.36 X10^3/ul (0.83-4.51); Lymphocyte % 18.3 % (19-41); Mean Corp Hgb Conc 30.2 g/dL (32-36); Mean Corpuscular Hgb 28.3 pg (27.0-32.0); Mean Corpuscular Volume 93.6 fL (81-99); Monocyte# 0.53 X10^3/uL; Monocyte% 7.1 % (0-10); NRBC Flagged by Analyzer 0 % (0-5); Neutrophil # 5.28 X10^3/uL (2.7-7.7); Platelet Count 285 K/mm3 (150-450); RBC Distribution Width SD 55.3 fl (35.1-43.9); Red Blood Count 3.29 M/mm3 (4.2-5.4); White Blood Count 7.4 K/mm3 (4.4-11.0)
[2021-07-06] MEDS: APIXABAN 2.5 MG TABLET PO ×2 (07:02→16:46)
[2021-07-06] MEDS: Acetaminophen 500 MG Tablet 1000 MG PO ×3 (07:02→20:25)
[2021-07-06] MEDS: Menthol/Lanolin/Calamine/Znox 113 GM Tube 1 APPLIC TOPICAL ×2 (07:02→16:46)
[2021-07-06] MEDS: Pantoprazole Sodium 40 MG Tablet PO (07:03)
[2021-07-06] MEDS: Lisinopril 20 MG Tablet PO ×2 (07:03→16:46)
[2021-07-06] MEDS: Sertraline 100 MG Tablet PO (07:03)
[2021-07-06] MEDS: Furosemide 40 MG Tablet PO (07:04)
[2021-07-06] MEDS: amLODIPine 5 MG Tablet PO (07:04)
[2021-07-06] MEDS: Nystatin Powder 15gm Bottle 1 APPLIC TOPICAL ×2 (07:07→16:47)
[2021-07-06] MEDS: Polyethylene Glycol 3350 17 GM PACKET PO (07:08)
[2021-07-06 07:17] VITALS: BP 154/42; PULSE 61; RESP 16; O2SAT 93
[2021-07-06 07:23] LABS: Anion Gap 6 (5-15); BUN 20 mg/dL (7-18); BUN/Creat Ratio 32.1 RATIO (10-20); Calcium,Total 9.2 mg/dL (8.5-10.1); Chloride 108 mmol/L (98-107); Creatinine, Serum 0.62 mg/dL (0.55-1.02); EST Glomerular Filtration Rate 97 mL/min (>60); Est Glom Filt Rate - Afr Amer 118 mL/min (>60); Estimated Creatinine Clearance 31.69 ml/min; Glucose 129 mg/dL (74-106); Potassium 4.2 mmol/L (3.5-5.1); Sodium Level 139 mmol/L (136-145)
[2021-07-06] MEDS: Potassium Chloride Oral Tablet 20 MEQ PO ×2 (09:27→16:46)
[2021-07-06] MEDS: Iron Polysaccharide Complex 150 MG CAPSULE PO (09:27)
[2021-07-06] MEDS: Glucerna Shake 120 ML LIQUID PO ×3 (09:29→16:48)
--- NOTE | 2021-07-06 09:30 | NURSING ---
Pt's Blood Pressure 113/31 pt denied symptoms of low bp. Blood pressure Meds held will recheck. Call light within reach.
[2021-07-06 09:32] VITALS: BP 113/31; PULSE 59
[2021-07-06 11:31] LABS: Bedside Glucose 167 mg/dL (70-110)
[2021-07-06 16:00] VITALS: BP 162/52; PULSE 62; RESP 18; TEMP 36; O2SAT 99
[2021-07-06 16:45] LABS: Bedside Glucose 128 mg/dL (70-110)
[2021-07-06] MEDS: oxyCODONE 5 MG Tablet PO (20:24)
[2021-07-06] MEDS: Atorvastatin Calcium 20 MG Tablet PO (20:25)
[2021-07-06 20:28] VITALS: PULSE 16; RESP 16; O2SAT 98
[2021-07-07] MEDS: Nystatin Powder 15gm Bottle 1 APPLIC TOPICAL ×2 (06:15→17:00)
[2021-07-07] MEDS: Menthol/Lanolin/Calamine/Znox 113 GM Tube 1 APPLIC TOPICAL ×2 (06:15→16:59)
[2021-07-07] MEDS: Acetaminophen 500 MG Tablet 1000 MG PO ×3 (06:17→21:11)
[2021-07-07] MEDS: Sertraline 100 MG Tablet PO (06:18)
[2021-07-07] MEDS: APIXABAN 2.5 MG TABLET PO ×2 (06:19→17:00)
[2021-07-07] MEDS: Furosemide 40 MG Tablet PO (06:19)
[2021-07-07] MEDS: Pantoprazole Sodium 40 MG Tablet PO (06:21)
[2021-07-07 06:24] VITALS: BP 151/36; PULSE 60
[2021-07-07 06:25] LABS: Bedside Glucose 119 mg/dL (70-110)
[2021-07-07 07:13] VITALS: BP 157/58; PULSE 63
[2021-07-07] MEDS: Isosorbide Mononitrate 60 MG Tablet PO (07:15)
[2021-07-07] MEDS: Atenolol 50 MG Tablet PO (07:15)
[2021-07-07] MEDS: amLODIPine 5 MG Tablet PO (07:16)
[2021-07-07] MEDS: Lisinopril 20 MG Tablet PO ×2 (07:16)
[2021-07-07] MEDS: Iron Polysaccharide Complex 150 MG CAPSULE PO (08:22)
[2021-07-07] MEDS: Potassium Chloride Oral Tablet 20 MEQ PO ×2 (08:22→17:00)
[2021-07-07] MEDS: Glucerna Shake 120 ML LIQUID PO ×3 (08:24→17:00)
[2021-07-07 10:00] VITALS: RESP 18
[2021-07-07 15:38] VITALS: BP 137/57; PULSE 69; RESP 20; TEMP 36.7; O2SAT 96
[2021-07-07] MEDS: Atorvastatin Calcium 20 MG Tablet PO (21:10)
[2021-07-08 06:16] LABS: Bedside Glucose 101 mg/dL (70-110)
[2021-07-08] MEDS: Isosorbide Mononitrate 60 MG Tablet PO (06:30)
[2021-07-08] MEDS: amLODIPine 5 MG Tablet PO (06:30)
[2021-07-08] MEDS: Atenolol 50 MG Tablet PO (06:30)
[2021-07-08] MEDS: Menthol/Lanolin/Calamine/Znox 113 GM Tube 1 APPLIC TOPICAL ×2 (06:30→18:36)
[2021-07-08] MEDS: Sertraline 100 MG Tablet PO (06:30)
[2021-07-08] MEDS: Pantoprazole Sodium 40 MG Tablet PO (06:30)
[2021-07-08] MEDS: Lisinopril 20 MG Tablet PO ×2 (06:30→18:41)
[2021-07-08] MEDS: APIXABAN 2.5 MG TABLET PO ×2 (06:31→18:39)
[2021-07-08] MEDS: Acetaminophen 500 MG Tablet 1000 MG PO ×3 (06:31→21:45)
[2021-07-08] MEDS: Furosemide 40 MG Tablet PO (06:31)
[2021-07-08] MEDS: Polyethylene Glycol 3350 17 GM PACKET PO (06:31)
[2021-07-08] MEDS: Nystatin Powder 15gm Bottle 1 APPLIC TOPICAL ×2 (06:32→18:47)
[2021-07-08] MEDS: Glucerna Shake 120 ML LIQUID PO ×3 (08:48→18:34)
[2021-07-08] MEDS: Iron Polysaccharide Complex 150 MG CAPSULE PO (08:49)
[2021-07-08] MEDS: Potassium Chloride Oral Tablet 20 MEQ PO ×2 (08:49→18:39)
[2021-07-08] MEDS: oxyCODONE 5 MG Tablet PO (08:52)
--- NOTE | 2021-07-08 09:32 | CASEMGMT ---
Social Work Mina Pope C.M. assigned as pt's KELBY Vides Provided [facility]# [id number] and will send paperwork to dtr's address. Confirmed dtr is HCPOA - documents on file. Awaiting to hear from [facility] on this date if they have a bed for pt. If not, pt will DC to [facility]. Will continue to follow. FIORDALIZA LeeW
--- NOTE | 2021-07-08 09:44 | CASEMGMT ---
Social Work Mina Pope from [facility] contacted this worker as pt's C.M. and provided KELBY pending # [id number]. Confirmed dtr is HCPOA as documents are on file. Mina to send paperwork to dtr. Awaiting to hear acceptance/denial from [facility]. Will continue to follow. eWndy Mcpherson, FIORDALIZA BARRERAW
[2021-07-08 16:32] VITALS: BP 124/45; PULSE 57; RESP 20; TEMP 35.7; O2SAT 95
--- NOTE | 2021-07-08 16:42 | CASEMGMT ---
Social Work [facility] is able to accept pt. NRD 07/10 with anticipated DC date. Spoke with dtr and she wants to make sure pt is agreeable to transfer to SNF. Confirmed pt would be home alone, with occasionally having neighbors check in but would need to be independent with ADLs, tx, etc. Will follow up with pt. Wendy Mcpherson, SUBSTATION MANAGER BOOKBINDER CHIEF
--- NOTE | 2021-07-08 20:53 | PN.TCU_ITS ---
Subjective Subjective Resident seen, examined for regulatory visit. She is lying in bed, sleeping this afternoon, she awakens easily. She has no new problems, concerns, issues, complaints. She feels she is making progress in therapy every day. Objective Data Objective Data Vital Signs: Vital Signs Temp Pulse Resp BP Pulse Ox 96.2 F L 57 L 20 H 124/45 H 95 07/08/21 16:32 07/08/21 16:32 07/08/21 16:32 07/08/21 16:32 07/08/21 16:32 Oxygen Delivery Method Room Air Weight: 75.841 kg Body Mass Index (BMI) 32.8 Intake & Output: Intake and Output for Last 24 Hours 07/06/21 07/07/21 07/08/21 23:59 23:59 23:59 Intake Total 1060 / 1060 840 / 840 360 / 360 Output Total 700 / 700 600 / 600 500 / 500 Balance 360 / 360 240 / 240 -140 / -140 Lab / Micro Data Result Diagrams: 07/06/21 06:26 07/06/21 06:26 Labs: Laboratory Results - last 24 hr 07/08/21 06:05: POC Glucose 101 Micro: Microbiology 06/27/21 18:44 Urine, Catheterized Urine Culture - Final Klebsiella pneumoniae sp pneum Physical Exam Const alert and oriented x3 General Appearance: cooperative HEENT normocephalic Eyes PERRL and EOMs intact bilaterally Neck supple, no JVD and no carotid bruits Resp normal respiratory effort, normal air movement and clear to auscultation bilaterally Cardio regular rate and regular rhythm GI normal to inspection, nondistended, normoactive bowel sounds, non-tender and non-distended Extremity normal capillary refill General Extremity: Negative for edema Skin no rashes or lesions noted General Skin Exam: no breakdown Psych affect normal Appearance: appropriate Assessment & Plan Assessment/Plan (1) Debility: (2) Closed left hip fracture: (3) Postoperative anemia: (4) Hypertension: (5) Hyperlipidemia: (6) Coronary artery disease: (7) Diabetes mellitus: (8) Depression: (9) Chronic obstructive pulmonary disease: (10) Gastroesophageal reflux disease: (11) Iron deficiency anemia: (12) Chronic diastolic heart failure: PLAN: 81 year old female with below past medical history hospitalized for left hip fracture, underwent cephalo-medullary nail left hip fixation 06/12/[address] Tavarez, postoperative course complicated by anemia requiring tr ansfusion, admitted to TCU with debility, here for rehabilitation, strengthening, prior to discharge home alone. * Debility - PT/OT. * Cognition - ST. * Pain - Tylenol 1000mg Q8H, Oxycodone 5mg Q4H PRN pain (6-10). * Bowel - Miralax 17gm daily, Senna/colace 1 tablet twice daily, Dulcolax 10mg daily PRN. * Adult immunization - Administer prevnar 13, pneumovax 23, fluzone, covid19 vaccine as appropriate. * DVT prophylaxis - Eliquis 2.5mg twice daily thru 07/17/2021. * COPD - Albuterol 2 puffs twice daily. * Coronary Artery Disease - Atenolol 50mg daily, Lisinopril 20mg twice daily, Imdur 60mg daily, Eliquis 2.5mg twice daily thru 07/17/2021, Aspirin 81mg starting 07/18/2021, NTG 0.4mg SL Q5M PRN. * Chronic diastolic heart failure - Atenolol 50mg daily, Lisinopril 20mg twice daily, Imdur 60mg daily, Lasix 40mg daily. * Hypertension - Atenolol 50mg daily, Lisinopril 20mg twice daily, Amlodipine 5mg daily. * Hyperlipidemia - Atorvastatin 20mg QHS. * Diabetes Mellitus II - Lantus 35 units QHS, monitor blood sugars. * Iron deficiency anemia - Ferrex 150mg daily. * Skin irritation - Calmoseptine topical twice daily. * Tinea Corporis - Nystatin powder topical twice daily. * GERD - Pantoprazole 40mg daily. * Hypokalemia - KCL ER 20meq twice daily. 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 * Nutrition - Glucerna 120ml po tid. Capacity Capacity Assessment Tool Can the patient make a choice & communicate that choice?: Yes Can the patient understand benefits, risks and alternatives?: Yes Can the patient make a logical, rational choice?: Yes Is the choice the patient makes consistent w/ their values?: Yes Is there an impending, emergent risk to the patient?: No Does the patient have an Advance Directive?: Yes Is there a Surrogate Available?: Yes i.e. HCPOA: Yes i.e. close relative (spouse, child, parent, sibling)?: Yes
[2021-07-08] MEDS: Atorvastatin Calcium 20 MG Tablet PO (21:46)
[2021-07-09] MEDS: Isosorbide Mononitrate 60 MG Tablet PO (06:23)
[2021-07-09] MEDS: amLODIPine 5 MG Tablet PO (06:23)
[2021-07-09] MEDS: Pantoprazole Sodium 40 MG Tablet PO (06:23)
[2021-07-09] MEDS: Furosemide 40 MG Tablet PO (06:23)
[2021-07-09] MEDS: Acetaminophen 500 MG Tablet 1000 MG PO ×3 (06:23→20:45)
[2021-07-09] MEDS: APIXABAN 2.5 MG TABLET PO ×2 (06:23→17:04)
[2021-07-09] MEDS: Sertraline 100 MG Tablet PO (06:23)
[2021-07-09] MEDS: Menthol/Lanolin/Calamine/Znox 113 GM Tube 1 APPLIC TOPICAL ×2 (06:24→17:04)
[2021-07-09] MEDS: Nystatin Powder 15gm Bottle 1 APPLIC TOPICAL ×2 (06:24→17:04)
[2021-07-09] MEDS: Atenolol 50 MG Tablet PO (06:24)
[2021-07-09] MEDS: Lisinopril 20 MG Tablet PO ×2 (06:24→17:04)
[2021-07-09 06:26] LABS: Bedside Glucose 127 mg/dL (70-110)
[2021-07-09 06:29] VITALS: BP 175/46; PULSE 59
[2021-07-09] MEDS: Iron Polysaccharide Complex 150 MG CAPSULE PO (08:12)
[2021-07-09] MEDS: Glucerna Shake 120 ML LIQUID PO ×3 (08:12→17:04)
[2021-07-09] MEDS: Potassium Chloride Oral Tablet 20 MEQ PO ×2 (08:12→17:04)
[2021-07-09 10:00] VITALS: PULSE 52; RESP 18; O2SAT 99
[2021-07-09] MEDS: oxyCODONE 5 MG Tablet PO (10:52)
--- NOTE | 2021-07-09 12:01 | CASEMGMT ---
Addendum entered by Wendy Mcpherson 07/09/21 12:31: CORRECTION: DID NOT trigger for Level II evaluation. Original Note: Social Work Spoke with pt about DC to [facility] as they accepted pt. Pt agreeable to tx. Discussed DC date. Pt agreeable to DC 07/11. Spoke with dtr to inform of DC date. Dtr can transport pt after work. Updated [facility]. Completed PAS. Triggered for Level II evaluation. Updated [facility]. Will continue to follow. Plan: DC to [facility] 07/11 Wendy Mcpherson, FIORDALIZA BARRERAW
[2021-07-09 15:04] VITALS: BP 119/55; PULSE 55; RESP 17; TEMP 36.8; O2SAT 97
--- NOTE | 2021-07-09 20:15 | DS.PCM_ITS ---
Providers Date of Admission: 06/14/21 Primary Care Physician: Dr. Riley Roca MD Consultations 06/15/21 18:15 Consult: Onc/Wound/asset protection lead Routine Comment: Reason for Consult:: Buttocks bilateral pressure/moisture Reason For Visit: L HIP FRACTURE Diagnosis Discharge Diagnosis (1) Debility: Status: Acute Code(s): R53.81 - Other malaise (2) Closed left hip fracture: Status: Acute Code(s): S72.002A - Fracture of unspecified part of neck of left femur, initial encounter for closed fracture (3) Postoperative anemia: Status: Acute Code(s): D64.9 - Anemia, unspecified (4) Hypertension: Status: Chronic Code(s): I10 - Essential (primary) hypertension (5) Hyperlipidemia: Status: Acute Code(s): E78.5 - Hyperlipidemia, unspecified (6) Coronary artery disease: Status: Acute Code(s): I25.10 - Atherosclerotic heart disease of [place] coronary artery without angina pectoris (7) Diabetes mellitus: Status: Acute Code(s): E11.9 - Type 2 diabetes mellitus without complications (8) Depression: Status: Acute Code(s): F32.9 - Major depressive disorder, single episode, unspecified (9) Chronic obstructive pulmonary disease: Status: Chronic Code(s): J44.9 - Chronic obstructive pulmonary disease, unspecified (10) Gastroesophageal reflux disease: Status: Acute Code(s): K21.9 - Gastro-esophageal reflux disease without esophagitis (11) Iron deficiency anemia: Status: Acute Code(s): D50.9 - Iron deficiency anemia, unspecified (12) Chronic diastolic heart failure: Status: Chronic Code(s): I50.32 - Chronic diastolic (congestive) heart failure Medications at Discharge Home Medications sertraline 100 mg PO DAILY 02/26/19 albuterol sulfate 2 puff INHALATION BID 06/11/20 atenolol 50 mg PO DAILY 06/11/20 atorvastatin 20 mg PO QHS 06/11/20 isosorbide mononitrate 60 mg PO DAILY 04/12/21 pantoprazole 40 mg PO DAILY 04/12/21 acetaminophen 1,000 mg PO Q6H PRN PRN #0 tab 05/01/21 nitroglycerin 0.4 mg SUBLINGUAL Q5M PRN #0 tab 05/01/21 apixaban 2.5 mg PO BID 06/14/21 furosemide 40 mg PO DAILY 06/14/21 lisinopril 20 mg PO DAILY 06/14/21 polysaccharide iron complex [Ferrex 150] 150 mg PO DAILYCM 06/14/21 potassium chloride [Klor-Con M20] 20 meq PO BIDCM 06/14/21 amlodipine 5 mg PO DAILY #0 tab 07/09/21 insulin glargine [Lantus Solostar U-100 Insulin] 35 unit SUBCUT DAILY #0 ml 07/09/21 oxycodone 5 mg PO Q6H PRN 5 Days #20 tab 07/09/21 Hospital Course Operations - (Left hip cephalo-medullary nail fixation. ) Procedures None Summary of Care Provided Minutes Spent on Discharge: 35 Hospital Course: 81 year old female with below past medical history hospitalized for left hip fracture, underwent cephalo-medullary nail left hip fixation 06/12/[address] Tavarez, postoperative course complicated by anemia requiring transfusion, admitted to TCU with debility, here for rehabilitation, strengthening, prior to discharge home alone. Discharge to [facility] . Physical Exam Const alert and oriented x3 General Appearance: cooperative HEENT normocephalic Eyes PERRL and EOMs intact bilaterally Neck supple, no JVD and no carotid bruits Resp normal respiratory effort, normal air movement and clear to auscultation bilaterally Cardio regular rate and regular rhythm GI normal to inspection, nondistended, normoactive bowel sounds, non-tender and non-distended Extremity normal capillary refill General Extremity: Negative for edema Skin no rashes or lesions noted General Skin Exam: no breakdown Psych affect normal Appearance: appropriate Weight / BMI Weight Weight: 66.905 kg Body Mass Index (BMI) 32.8 ABG / Lab / Microbiology Data Result Diagrams: 07/06/21 06:26 07/06/21 06:26 Laboratory: Laboratory Results - last 24 hr 07/09/21 06:20: POC Glucose 127 H Microbiology: Microbiology 06/27/21 18:44 Urine, Catheterized Urine Culture - Final Klebsiella pneumoniae sp pneum D/C Instructions Discharge Diet: No restrictions Discharge Activity: Return to Normal Activity, May Shower and Use Walker Weight Bearing Status: Weight bearing as tolerated Call your doctor if you observe: Fever of 101 or Higher, Inability to urinate, Inability to have a bowel movement, Shortness of breath, Dizziness, Fainting spells, Swelling in the ankles, Chest pain and Uncontrolled pain Additional Instructions: Discharge to [facility] 07/11/2021, Skilled PT/OT. Please Follow Up With: Pratik Tavarez DO When: As scheduled. Meaningful Use Info Meaningful Use Diagnoses (Choose all that apply): None applicable Discharge Plan Admission Admit Date/Time: 06/14/21 19:00 Primary Reason for Your Visit: Debility. Attending Provider: Riley Roca Chi Primary Care Provider: Riley Roca Chi Instructions Additional Instructions / Restrictions: Discharge to [facility] 07/11/2021. Discharge Orders/Prescriptions Prescriptions: New Lantus Solostar U-100 Insulin 100 unit/mL (3 mL) Insulin Pen 35 unit subcut DAILY Qty: 0 RF: 0 amlodipine 5 mg Tablet 5 mg PO DAILY Qty: 0 RF: 0 Continued sertraline 100 MG tablet 100 mg PO DAILY RF: 0 albuterol sulfate 90 mcg/actuation HFA aerosol inhaler 2 puff INHALATION BID RF: 0 atorvastatin 20 MG tablet 20 mg PO QHS RF: 0 atenolol 50 MG tablet 50 mg PO DAILY RF: 0 pantoprazole 40 mg tablet,delayed release (DR/EC) 40 mg PO DAILY RF: 0 isosorbide mononitrate 60 mg tablet extended release 24 hr 60 mg PO DAILY RF: 0 acetaminophen 500 mg Tablet 1,000 mg PO Q6H PRN PRN (Reason: Pain Score 1-5) Qty: 0 RF: 0 nitroglycerin 0.4 mg Tablet, Sublingual 0.4 mg sublingual Q5M PRN (Reason: Cardiac/Chest Pain) Qty: 0 RF: 0 furosemide 40 mg tablet 40 mg PO DAILY RF: 0 polysaccharide iron complex [Ferrex 150] 150 mg iron capsule 150 mg PO DAILYCM RF: 0 lisinopril 20 mg tablet 20 mg PO DAILY RF: 0 potassium chloride [Klor-Con M20] 20 mEq tablet,ER particles/crystals 20 meq PO BIDCM RF: 0 apixaban 2.5 mg tablet 2.5 mg PO BID RF: 0 oxycodone 5 mg tablet 5 mg PO Q6H PRN (Reason: pain) 5 Days Qty: 20 RF: 0 Discontinued Toujeo SoloStar U-300 Insulin 300 unit/mL (1.5 mL) insulin pen 50 unit SUBCUT DAILY RF: 0 sucralfate 1 GM tablet 1 gm PO 4X/DAY RF: 0 aspirin 81 mg tablet,delayed release (DR/EC) 81 mg PO DAILY@0800 RF: 0 nitroglycerin 0.4 mg tablet, sublingual 0.4 mg SUBLINGUAL Q5M PRN (Reason: Chest Pain) Qty: 25 RF: 3 Referrals / Follow Up: Riley Roca Chi, MD [Primary Care Provider] - Disposition Disposition (needs filled in before D/C Order can be placed): NonSkilled NH/Intermed Care
--- NOTE | 2021-07-09 20:23 | PCM.TXEXTCAR ---
Diet 06/17/21 15:36 Diet: Cardiac - Heart Healthy Food consistency:: Regular Liquid Consistency:: Regular/Thin Dietary Modifications:: Sodium Restricted Is pt able to select menu?: No Diet Comments: small portions Routine Orders/Code Status Code Status: DNRCC-A (No intubation.) Wound(s) Left Hip Incision: Wound Type: Surgical Incision Dressing Change: Dry Sterile Dressing bilateral buttock: Wound Type: Moisture/Pressure Dressing Change: noel prox hip incision: Wound Type: Surgical Incision distal thigh incision: Wound Type: Surgical Incision Therapies Weight Bearing: Weight bearing as tolerated Problem/Diagnosis (1) Debility: Status: Acute (2) Closed left hip fracture: Status: Acute (3) Postoperative anemia: Status: Acute (4) Hypertension: Status: Chronic (5) Hyperlipidemia: Status: Acute (6) Coronary artery disease: Status: Acute (7) Diabetes mellitus: Status: Acute (8) Depression: Status: Acute (9) Chronic obstructive pulmonary disease: Status: Chronic (10) Gastroesophageal reflux disease: Status: Acute (11) Iron deficiency anemia: Status: Acute (12) Chronic diastolic heart failure: Status: Chronic Allergies/Procedures Done in Hospital Allergies latex Allergy (Verified 06/12/21 01:26) Other RASH ON HANDS WHEN 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 ) Type of Care/Length of Stay Estimated LOS: Convalescent Care Less Than 30 days Type of Care Needed: Intermediate Rehab Potential: Good Prognosis: Good Additional Orders/Day of Discharge Additional Orders: part B therapies Day of Discharge: 07/11/21 Dietary and Speech Recommendations Dietitian Recommendations/Changes: Will continue Cardiac/ Sodium restricted diet - consider fluid / carbohydrate restrictions as needed Will continue to provide small portions per res request. Will continue provide 120 ml glucerna shake 3x/day w/ medpass to help stabilize wt loss. Follow Up Care Please Follow Up With: Pratik Tavarez DO When: 4 weeks Discharge Plan Admission Admit Date/Time: 06/14/21 19:00 Primary Reason for Your Visit: Debility. Attending Provider: Riley Roca Chi Primary Care Provider: Riley Roca Chi Instructions Additional Instructions / Restrictions: Discharge to [facility] 07/11/2021. Discharge Orders/Prescriptions Prescriptions: New Lantus Solostar U-100 Insulin 100 unit/mL (3 mL) Insulin Pen 35 unit subcut DAILY Qty: 0 RF: 0 amlodipine 5 mg Tablet 5 mg PO DAILY Qty: 0 RF: 0 Continued sertraline 100 MG tablet 100 mg PO DAILY RF: 0 albuterol sulfate 90 mcg/actuation HFA aerosol inhaler 2 puff INHALATION BID RF: 0 atorvastatin 20 MG tablet 20 mg PO QHS RF: 0 atenolol 50 MG tablet 50 mg PO DAILY RF: 0 pantoprazole 40 mg tablet,delayed release (DR/EC) 40 mg PO DAILY RF: 0 isosorbide mononitrate 60 mg tablet extended release 24 hr 60 mg PO DAILY RF: 0 acetaminophen 500 mg Tablet 1,000 mg PO Q6H PRN PRN (Reason: Pain Score 1-5) Qty: 0 RF: 0 nitroglycerin 0.4 mg Tablet, Sublingual 0.4 mg sublingual Q5M PRN (Reason: Cardiac/Chest Pain) Qty: 0 RF: 0 furosemide 40 mg tablet 40 mg PO DAILY RF: 0 polysaccharide iron complex [Ferrex 150] 150 mg iron capsule 150 mg PO DAILYCM RF: 0 lisinopril 20 mg tablet 20 mg PO DAILY RF: 0 potassium chloride [Klor-Con M20] 20 mEq tablet,ER particles/crystals 20 meq PO BIDCM RF: 0 apixaban 2.5 mg tablet 2.5 mg PO BID RF: 0 oxycodone 5 mg tablet 5 mg PO Q6H PRN (Reason: pain) 5 Days Qty: 20 RF: 0 Discontinued Toutae SoloStar U-300 Insulin 300 unit/mL (1.5 mL) insulin pen 50 unit SUBCUT DAILY RF: 0 sucralfate 1 GM tablet 1 gm PO 4X/DAY RF: 0 aspirin 81 mg tablet,delayed release (DR/EC) 81 mg PO DAILY@0800 RF: 0 nitroglycerin 0.4 mg tablet, sublingual 0.4 mg SUBLINGUAL Q5M PRN (Reason: Chest Pain) Qty: 25 RF: 3 Referrals / Follow Up: Riley Roca Chi, MD [Primary Care Provider] - Disposition Disposition (needs filled in before D/C Order can be placed): NonSkilled NH/Intermed Care
[2021-07-09] MEDS: Atorvastatin Calcium 20 MG Tablet PO (20:44)
[2021-07-10 06:00] VITALS: BP 157/45; PULSE 60
[2021-07-10 06:16] LABS: Bedside Glucose 90 mg/dL (70-110)
[2021-07-10] MEDS: Furosemide 40 MG Tablet PO (06:25)
[2021-07-10] MEDS: APIXABAN 2.5 MG TABLET PO ×2 (06:25→17:54)
[2021-07-10] MEDS: Sertraline 100 MG Tablet PO (06:25)
[2021-07-10] MEDS: Pantoprazole Sodium 40 MG Tablet PO (06:25)
[2021-07-10] MEDS: Acetaminophen 500 MG Tablet 1000 MG PO ×3 (06:25→21:06)
[2021-07-10] MEDS: Lisinopril 20 MG Tablet PO ×2 (06:26→17:54)
[2021-07-10] MEDS: Atenolol 50 MG Tablet PO (06:26)
[2021-07-10] MEDS: Isosorbide Mononitrate 60 MG Tablet PO (06:26)
[2021-07-10] MEDS: Nystatin Powder 15gm Bottle 1 APPLIC TOPICAL ×2 (06:26→23:37)
[2021-07-10] MEDS: amLODIPine 5 MG Tablet PO (06:26)
[2021-07-10] MEDS: Menthol/Lanolin/Calamine/Znox 113 GM Tube 1 APPLIC TOPICAL ×3 (06:27→21:06)
--- NOTE | 2021-07-10 07:23 | NURSING ---
Lantus obtained from pharmacy, unable to administer at this time due to working with therapy, dayshift nurse notified.
[2021-07-10] MEDS: Potassium Chloride Oral Tablet 20 MEQ PO ×2 (09:09→17:54)
[2021-07-10] MEDS: Iron Polysaccharide Complex 150 MG CAPSULE PO (09:09)
[2021-07-10] MEDS: Glucerna Shake 120 ML LIQUID PO ×3 (09:11→17:55)
[2021-07-10 15:26] VITALS: BP 137/50; PULSE 54; RESP 16; TEMP 36.6; O2SAT 98
[2021-07-10 18:00] VITALS: BP 163/58; PULSE 60
[2021-07-10] MEDS: Atorvastatin Calcium 20 MG Tablet PO (21:07)
[2021-07-10 22:54] VITALS: PULSE 65; RESP 14
[2021-07-11] MEDS: Acetaminophen 500 MG Tablet 1000 MG PO ×2 (05:19→13:30)
[2021-07-11] MEDS: Furosemide 40 MG Tablet PO (05:20)
[2021-07-11] MEDS: Atenolol 50 MG Tablet PO (05:20)
[2021-07-11] MEDS: Nystatin Powder 15gm Bottle 1 APPLIC TOPICAL ×2 (05:20→16:11)
[2021-07-11] MEDS: Pantoprazole Sodium 40 MG Tablet PO (05:20)
[2021-07-11] MEDS: amLODIPine 5 MG Tablet PO (05:20)
[2021-07-11] MEDS: Lisinopril 20 MG Tablet PO ×2 (05:20→16:11)
[2021-07-11] MEDS: Sertraline 100 MG Tablet PO (05:20)
[2021-07-11] MEDS: APIXABAN 2.5 MG TABLET PO ×2 (05:20→16:10)
[2021-07-11] MEDS: Isosorbide Mononitrate 60 MG Tablet PO (05:20)
[2021-07-11 06:22] LABS: Bedside Glucose 107 mg/dL (70-110)
[2021-07-11] MEDS: Potassium Chloride Oral Tablet 20 MEQ PO ×2 (07:58→16:10)
[2021-07-11] MEDS: Iron Polysaccharide Complex 150 MG CAPSULE PO (07:59)
[2021-07-11] MEDS: Glucerna Shake 120 ML LIQUID PO ×2 (07:59→13:31)
[2021-07-11 09:54] VITALS: PULSE 49; RESP 16
[2021-07-11 10:23] VITALS: PULSE 49; RESP 16
[2021-07-11 12:37] VITALS: BP 145/59; PULSE 52; RESP 16; TEMP 36.2; O2SAT 98
--- NOTE | 2021-07-11 14:49 | NURSING ---
REPORT CALLED TO DARIO @ [facility]
[2021-07-11] MEDS: Menthol/Lanolin/Calamine/Znox 113 GM Tube 1 APPLIC TOPICAL (16:10)
== END 2021-07-11 16:33 | disposition intermediate care facility (04) | DRG 560 ==
PROVIDERS: Admitting Provider Family Medicine Geriatric Medicine; PCP Family Medicine Geriatric Medicine; Visit Provider Family Medicine Geriatric Medicine
DX: S72.002D Fracture of unspecified part of neck of left femur, subsequent encounter for closed fracture with routine healing (principal); I50.32 Chronic diastolic (congestive) heart failure; W19.XXXD Unspecified fall, subsequent encounter; I25.10 Atherosclerotic heart disease of native coronary artery without angina pectoris; K21.9 Gastro-esophageal reflux disease without esophagitis; Z23 Encounter for immunization; F41.9 Anxiety disorder, unspecified; F32.9 Major depressive disorder, single episode, unspecified; I11.0 Hypertensive heart disease with heart failure; E78.5 Hyperlipidemia, unspecified; E11.9 Type 2 diabetes mellitus without complications; G47.30 Sleep apnea, unspecified; I25.2 Old myocardial infarction; Z79.899 Other long term (current) drug therapy; Z79.4 Long term (current) use of insulin; Z79.01 Long term (current) use of anticoagulants; Z79.82 Long term (current) use of aspirin; J44.9 Chronic obstructive pulmonary disease, unspecified; D50.9 Iron deficiency anemia, unspecified; E87.6 Hypokalemia; B35.4 Tinea corporis
CPT/HCPCS: 36415; 73552; 80048; 81001; 82962; 85025; 87077; 87086; 87088; 87186; 87635; 92507; 92523; 97110; 97116; 97162; 97165; 97530; 97535; 97802; G0008; U0005; 90686; A4216; U0003

== ENCOUNTER → 2021-07-15 05:00 | Outpatient (REF) | payer MEDICARE, SELFPAY ==
[2021-07-15 06:53] LABS: Absolute Lymphocyte Count 1.61 X10^3/uL (0.83-4.51); Absolute Neutrophil Count 5.8 X10^3/uL (2.0-7.7); Basophil# 0.04 X10^3/uL; Basophil% 0.5 % (0-1); Eosinophil# 0.17 X10^3/uL; Hematocrit 32.1 % (37-47); Hemoglobin 9.7 g/dL (12.0-15.0); Lymphocyte # 1.61 X10^3/ul (0.83-4.51); Lymphocyte % 19.4 % (19-41); Mean Corp Hgb Conc 30.2 g/dL (32-36); Mean Corpuscular Volume 92.5 fL (81-99); Mean Platelet Vol. 11.7 fl (6.2-12.0); Monocyte# 0.67 X10^3/uL; Monocyte% 8.1 % (0-10); NRBC Flagged by Analyzer 0 % (0-5); Neutrophil # 5.78 X10^3/uL (2.7-7.7); Neutrophil % 69.5 % (47-70); Platelet Count 228 K/mm3 (150-450); RBC Distribution Width CV 15.4 % (11.6-14.6); RBC Distribution Width SD 52.7 fl (35.1-43.9); Red Blood Count 3.47 M/mm3 (4.2-5.4); White Blood Count 8.3 K/mm3 (4.4-11.0)
[2021-07-15 07:04] LABS: Anion Gap 9 (5-15); BUN 26 mg/dL (7-18); BUN/Creat Ratio 33.2 RATIO (10-20); Calcium,Total 9.4 mg/dL (8.5-10.1); Chloride 105 mmol/L (98-107); Creatinine, Serum 0.78 mg/dL (0.55-1.02); EST Glomerular Filtration Rate 75 mL/min (>60); Est Glom Filt Rate - Afr Amer 91 mL/min (>60); Glucose 110 mg/dL (74-106); Potassium 4.4 mmol/L (3.5-5.1); Sodium Level 140 mmol/L (136-145)
== END ==
LOC: OLS.WHLEAS 05:00
PROVIDERS: PCP Family Medicine Geriatric Medicine; Visit Provider Family Medicine
DX: S72.002D Fracture of unspecified part of neck of left femur, subsequent encounter for closed fracture with routine healing (principal); R54 Age-related physical debility; R26.2 Difficulty in walking, not elsewhere classified; Z47.89 Encounter for other orthopedic aftercare
CPT/HCPCS: 36415; 80048; 85025

== ENCOUNTER → 2021-07-22 05:00 | Outpatient (REF) | payer MEDICARE, SELFPAY ==
[2021-07-22 07:55] LABS: Absolute Lymphocyte Count 1.71 X10^3/uL (0.83-4.51); Absolute Neutrophil Count 5.9 X10^3/uL (2.0-7.7); Basophil# 0.03 X10^3/uL; Basophil% 0.4 % (0-1); Eosinophil# 0.13 X10^3/uL; Eosinophils% 1.5 % (0-5); Hematocrit 29.3 % (37-47); Hemoglobin 8.8 g/dL (12.0-15.0); Lymphocyte # 1.71 X10^3/ul (0.83-4.51); Mean Corpuscular Hgb 27.8 pg (27.0-32.0); Mean Corpuscular Volume 92.4 fL (81-99); Mean Platelet Vol. 11.9 fl (6.2-12.0); Monocyte# 0.72 X10^3/uL; Monocyte% 8.4 % (0-10); NRBC Flagged by Analyzer 0 % (0-5); Neutrophil # 5.93 X10^3/uL (2.7-7.7); Neutrophil % 69.2 % (47-70); Platelet Count 226 K/mm3 (150-450); Red Blood Count 3.17 M/mm3 (4.2-5.4); White Blood Count 8.6 K/mm3 (4.4-11.0)
[2021-07-22 08:08] LABS: Anion Gap 8 (5-15); BUN 22 mg/dL (7-18); BUN/Creat Ratio 26.3 RATIO (10-20); Calcium,Total 9.1 mg/dL (8.5-10.1); Chloride 106 mmol/L (98-107); Creatinine, Serum 0.84 mg/dL (0.55-1.02); EST Glomerular Filtration Rate 70 mL/min (>60); Est Glom Filt Rate - Afr Amer 84 mL/min (>60); Glucose 141 mg/dL (74-106); Potassium 4.4 mmol/L (3.5-5.1); Sodium Level 138 mmol/L (136-145)
== END ==
LOC: OLS.WHLEAS 05:00
PROVIDERS: PCP Family Medicine Geriatric Medicine; Visit Provider Family Medicine
DX: D50.9 Iron deficiency anemia, unspecified (principal); S72.002D Fracture of unspecified part of neck of left femur, subsequent encounter for closed fracture with routine healing; R54 Age-related physical debility; R26.2 Difficulty in walking, not elsewhere classified; Z47.89 Encounter for other orthopedic aftercare
CPT/HCPCS: 36415; 80048; 85025

== ENCOUNTER → 2021-07-29 05:00 | Outpatient (REF) | payer MEDICARE, SELFPAY ==
[2021-07-29 08:19] LABS: Absolute Lymphocyte Count 1.95 X10^3/uL (0.83-4.51); Absolute Neutrophil Count 5.6 X10^3/uL (2.0-7.7); Basophil# 0.03 X10^3/uL; Basophil% 0.4 % (0-1); Eosinophil# 0.24 X10^3/uL; Eosinophils% 2.8 % (0-5); Hematocrit 28.1 % (37-47); Hemoglobin 8.6 g/dL (12.0-15.0); Lymphocyte # 1.95 X10^3/ul (0.83-4.51); Mean Corp Hgb Conc 30.6 g/dL (32-36); Mean Corpuscular Hgb 27.6 pg (27.0-32.0); Mean Corpuscular Volume 90.1 fL (81-99); Mean Platelet Vol. 11.8 fl (6.2-12.0); Monocyte# 0.59 X10^3/uL; Monocyte% 6.9 % (0-10); NRBC Flagged by Analyzer 0 % (0-5); Neutrophil # 5.64 X10^3/uL (2.7-7.7); Neutrophil % 66.4 % (47-70); Platelet Count 204 K/mm3 (150-450); RBC Distribution Width CV 14.8 % (11.6-14.6); RBC Distribution Width SD 48.8 fl (35.1-43.9); Red Blood Count 3.12 M/mm3 (4.2-5.4); White Blood Count 8.5 K/mm3 (4.4-11.0)
[2021-07-29 08:42] LABS: Anion Gap 5 (5-15); BUN 21 mg/dL (7-18); BUN/Creat Ratio 29.2 RATIO (10-20); Calcium,Total 9.1 mg/dL (8.5-10.1); Chloride 108 mmol/L (98-107); Creatinine, Serum 0.72 mg/dL (0.55-1.02); EST Glomerular Filtration Rate 83 mL/min (>60); Est Glom Filt Rate - Afr Amer 100 mL/min (>60); Glucose 119 mg/dL (74-106); Potassium 4.1 mmol/L (3.5-5.1); Sodium Level 140 mmol/L (136-145)
== END ==
LOC: OLS.WHLEAS 05:00
PROVIDERS: PCP Family Medicine Geriatric Medicine; Visit Provider Family Medicine
DX: D50.9 Iron deficiency anemia, unspecified (principal); S72.002D Fracture of unspecified part of neck of left femur, subsequent encounter for closed fracture with routine healing; R54 Age-related physical debility; R26.2 Difficulty in walking, not elsewhere classified; Z47.89 Encounter for other orthopedic aftercare
CPT/HCPCS: 36415; 80048; 85025

== ENCOUNTER → 2021-08-05 05:00 | Outpatient (REF) | payer MEDICARE, SELFPAY ==
[2021-08-05 06:25] LABS: Absolute Lymphocyte Count 1.62 X10^3/uL (0.83-4.51); Absolute Neutrophil Count 5.6 X10^3/uL (2.0-7.7); Basophil# 0.03 X10^3/uL; Basophil% 0.4 % (0-1); Eosinophil# 0.24 X10^3/uL; Hematocrit 28.8 % (37-47); Hemoglobin 8.6 g/dL (12.0-15.0); Lymphocyte # 1.62 X10^3/ul (0.83-4.51); Lymphocyte % 19.9 % (19-41); Mean Corp Hgb Conc 29.9 g/dL (32-36); Mean Corpuscular Hgb 27.3 pg (27.0-32.0); Mean Corpuscular Volume 91.4 fL (81-99); Mean Platelet Vol. 11.8 fl (6.2-12.0); Monocyte% 7.4 % (0-10); NRBC Flagged by Analyzer 0 % (0-5); Neutrophil # 5.61 X10^3/uL (2.7-7.7); Neutrophil % 68.9 % (47-70); Platelet Count 188 K/mm3 (150-450); RBC Distribution Width SD 50.8 fl (35.1-43.9); Red Blood Count 3.15 M/mm3 (4.2-5.4); White Blood Count 8.1 K/mm3 (4.4-11.0)
[2021-08-05 06:45] LABS: Anion Gap 6 (5-15); BUN 15 mg/dL (7-18); BUN/Creat Ratio 25.6 RATIO (10-20); Calcium,Total 8.8 mg/dL (8.5-10.1); Chloride 110 mmol/L (98-107); Creatinine, Serum 0.58 mg/dL (0.55-1.02); EST Glomerular Filtration Rate 105 mL/min (>60); Est Glom Filt Rate - Afr Amer 127 mL/min (>60); Glucose 87 mg/dL (74-106); Potassium 3.9 mmol/L (3.5-5.1); Sodium Level 143 mmol/L (136-145)
== END ==
LOC: OLS.WHLEAS 05:00
PROVIDERS: PCP Family Medicine Geriatric Medicine; Visit Provider Family Medicine
DX: D50.9 Iron deficiency anemia, unspecified (principal); S72.002D Fracture of unspecified part of neck of left femur, subsequent encounter for closed fracture with routine healing; R54 Age-related physical debility; R26.2 Difficulty in walking, not elsewhere classified
CPT/HCPCS: 36415; 80048; 85025

== ENCOUNTER → 2021-08-12 05:00 | Outpatient (REF) | payer MEDICARE, SELFPAY ==
[2021-08-12 08:51] LABS: Absolute Lymphocyte Count 1.41 X10^3/uL (0.83-4.51); Absolute Neutrophil Count 5.8 X10^3/uL (2.0-7.7); Basophil# 0.04 X10^3/uL; Basophil% 0.5 % (0-1); Eosinophil# 0.25 X10^3/uL; Hematocrit 28.9 % (37-47); Hemoglobin 8.8 g/dL (12.0-15.0); Lymphocyte # 1.41 X10^3/ul (0.83-4.51); Lymphocyte % 17.2 % (19-41); Mean Corp Hgb Conc 30.4 g/dL (32-36); Mean Corpuscular Hgb 26.9 pg (27.0-32.0); Mean Corpuscular Volume 88.4 fL (81-99); Mean Platelet Vol. 11.4 fl (6.2-12.0); Monocyte# 0.61 X10^3/uL; Monocyte% 7.4 % (0-10); NRBC Flagged by Analyzer 0 % (0-5); Neutrophil # 5.84 X10^3/uL (2.7-7.7); Neutrophil % 71.2 % (47-70); Platelet Count 219 K/mm3 (150-450); RBC Distribution Width CV 14.9 % (11.6-14.6); RBC Distribution Width SD 48.8 fl (35.1-43.9); Red Blood Count 3.27 M/mm3 (4.2-5.4); White Blood Count 8.2 K/mm3 (4.4-11.0)
[2021-08-12 08:53] LABS: Anion Gap 6 (5-15); BUN 11 mg/dL (7-18); BUN/Creat Ratio 17.7 RATIO (10-20); Calcium,Total 8.9 mg/dL (8.5-10.1); Chloride 108 mmol/L (98-107); Creatinine, Serum 0.62 mg/dL (0.55-1.02); EST Glomerular Filtration Rate 98 mL/min (>60); Est Glom Filt Rate - Afr Amer 118 mL/min (>60); Glucose 80 mg/dL (74-106); Potassium 3.6 mmol/L (3.5-5.1); Sodium Level 142 mmol/L (136-145)
== END ==
LOC: OLS.WHLEAS 05:00
PROVIDERS: PCP Family Medicine Geriatric Medicine; Visit Provider Family Medicine
DX: D50.9 Iron deficiency anemia, unspecified (principal); R54 Age-related physical debility; R26.2 Difficulty in walking, not elsewhere classified; S72.002D Fracture of unspecified part of neck of left femur, subsequent encounter for closed fracture with routine healing; Z47.89 Encounter for other orthopedic aftercare
CPT/HCPCS: 36415; 80048; 85025

== ENCOUNTER → 2021-08-19 05:00 | Outpatient (REF) | payer MEDICARE, SELFPAY ==
[2021-08-19 07:45] LABS: Absolute Lymphocyte Count 2.03 X10^3/uL (0.83-4.51); Absolute Neutrophil Count 6.6 X10^3/uL (2.0-7.7); Basophil# 0.05 X10^3/uL; Basophil% 0.5 % (0-1); Eosinophil# 0.27 X10^3/uL; Eosinophils% 2.8 % (0-5); Hematocrit 32.7 % (37-47); Hemoglobin 9.9 g/dL (12.0-15.0); Lymphocyte # 2.03 X10^3/ul (0.83-4.51); Lymphocyte % 21.1 % (19-41); Mean Corp Hgb Conc 30.3 g/dL (32-36); Mean Corpuscular Hgb 26.5 pg (27.0-32.0); Mean Corpuscular Volume 87.7 fL (81-99); Mean Platelet Vol. 11.2 fl (6.2-12.0); Monocyte# 0.59 X10^3/uL; Monocyte% 6.1 % (0-10); NRBC Flagged by Analyzer 0 % (0-5); Neutrophil % 68.8 % (47-70); Platelet Count 283 K/mm3 (150-450); RBC Distribution Width CV 15.1 % (11.6-14.6); RBC Distribution Width SD 48.3 fl (35.1-43.9); Red Blood Count 3.73 M/mm3 (4.2-5.4); White Blood Count 9.6 K/mm3 (4.4-11.0)
[2021-08-19 08:25] LABS: Anion Gap 6 (5-15); BUN 11 mg/dL (7-18); BUN/Creat Ratio 17.7 RATIO (10-20); Chloride 106 mmol/L (98-107); Creatinine, Serum 0.62 mg/dL (0.55-1.02); EST Glomerular Filtration Rate 98 mL/min (>60); Est Glom Filt Rate - Afr Amer 118 mL/min (>60); Glucose 86 mg/dL (74-106); Potassium 3.6 mmol/L (3.5-5.1); Sodium Level 141 mmol/L (136-145)
== END ==
LOC: OLS.WHLEAS 05:00
PROVIDERS: PCP Family Medicine Geriatric Medicine; Visit Provider Family Medicine
DX: D50.9 Iron deficiency anemia, unspecified (principal); S72.002D Fracture of unspecified part of neck of left femur, subsequent encounter for closed fracture with routine healing; R54 Age-related physical debility; R26.2 Difficulty in walking, not elsewhere classified; Z47.89 Encounter for other orthopedic aftercare
CPT/HCPCS: 36415; 80048; 85025

== ENCOUNTER → 2021-08-22 13:17 | Outpatient (CLI) | payer MEDICARE, SELFPAY ==
[2021-08-22 17:38] LABS: Absolute Neutrophil Count 6.9 X10^3/uL (2.0-7.7); Basophil# 0.04 X10^3/uL; Basophil% 0.4 % (0-1); Eosinophil# 0.23 X10^3/uL; Eosinophils% 2.4 % (0-5); Hematocrit 31.7 % (37-47); Hemoglobin 9.5 g/dL (12.0-15.0); Lymphocyte % 15.9 % (19-41); Mean Corpuscular Hgb 26.5 pg (27.0-32.0); Mean Corpuscular Volume 88.5 fL (81-99); Mean Platelet Vol. 11.9 fl (6.2-12.0); Monocyte# 0.61 X10^3/uL; Monocyte% 6.5 % (0-10); NRBC Flagged by Analyzer 0 % (0-5); Neutrophil # 6.92 X10^3/uL (2.7-7.7); Neutrophil % 73.4 % (47-70); Platelet Count 308 K/mm3 (150-450); RBC Distribution Width CV 15.7 % (11.6-14.6); RBC Distribution Width SD 51.2 fl (35.1-43.9); Red Blood Count 3.58 M/mm3 (4.2-5.4); White Blood Count 9.4 K/mm3 (4.4-11.0)
[2021-08-22 18:04] LABS: ALB/GLOB Ratio 0.8 RATIO (0.9-2.4); AST(SGOT) 14 U/L (15-37); Alanine Aminotransfer ALT/SGPT 18 U/L (13-56); Alkaline Phosphatase 88 U/L (45-117); Anion Gap 8 (5-15); BUN 28 mg/dL (7-18); BUN/Creat Ratio 33.8 RATIO (10-20); Calcium,Total 9.2 mg/dL (8.5-10.1); Chloride 104 mmol/L (98-107); Creatinine, Serum 0.83 mg/dL (0.55-1.02); EST Glomerular Filtration Rate 70 mL/min (>60); Est Glom Filt Rate - Afr Amer 85 mL/min (>60); Globulin 3.9 g/dL (2.2-4.2); Glucose 205 mg/dL (74-106); Potassium 5.3 mmol/L (3.5-5.1); Protein, Total 6.9 g/dL (6.4-8.2); Sodium Level 139 mmol/L (136-145); Thyroid Stim Hormone (TSH) 0.09 uIU/mL (0.358-3.74); Uric Acid 6.4 mg/dL (2.6-6.0)
[2021-08-22 19:32] LABS: Vitamin D,25 Hydroxy 20.8 ng/mL
== END ==
PROVIDERS: PCP Family Medicine Geriatric Medicine; Visit Provider Family Medicine Geriatric Medicine
DX: E11.9 Type 2 diabetes mellitus without complications (principal); E55.9 Vitamin D deficiency, unspecified; I10 Essential (primary) hypertension; M10.9 Gout, unspecified
CPT/HCPCS: 36415; 80053; 82306; 84443; 84550; 85025

== ENCOUNTER → 2021-08-28 18:32 | Outpatient (CLI) | payer MEDICARE, SELFPAY ==
[2021-08-28 19:59] LABS: Anion Gap 8 (5-15); BUN 17 mg/dL (7-18); BUN/Creat Ratio 23.2 RATIO (10-20); Calcium,Total 8.9 mg/dL (8.5-10.1); Chloride 103 mmol/L (98-107); Creatinine, Serum 0.73 mg/dL (0.55-1.02); EST Glomerular Filtration Rate 81 mL/min (>60); Est Glom Filt Rate - Afr Amer 98 mL/min (>60); Glucose 127 mg/dL (74-106); Potassium 3.5 mmol/L (3.5-5.1); Sodium Level 138 mmol/L (136-145)
== END ==
PROVIDERS: PCP Family Medicine Geriatric Medicine; Visit Provider Family Medicine Geriatric Medicine
DX: R53.83 Other fatigue (principal)
CPT/HCPCS: 36415; 80048

== ENCOUNTER 2021-11-18 14:23 | Outpatient (CLI) | payer MEDICARE, SELFPAY ==
[2021-11-18 15:59] LABS: Absolute Lymphocyte Count 1.74 X10^3/uL (0.83-4.51); Absolute Neutrophil Count 4.6 X10^3/uL (2.0-7.7); Basophil# 0.05 X10^3/uL; Basophil% 0.7 % (0-1); Eosinophil# 0.26 X10^3/uL; Eosinophils% 3.6 % (0-5); Hematocrit 30.8 % (37-47); Hemoglobin 9.5 g/dL (12.0-15.0); Lymphocyte # 1.74 X10^3/ul (0.83-4.51); Lymphocyte % 23.8 % (19-41); Mean Corp Hgb Conc 30.8 g/dL (32-36); Mean Corpuscular Hgb 26.9 pg (27.0-32.0); Mean Corpuscular Volume 87.3 fL (81-99); Mean Platelet Vol. 11.4 fl (6.2-12.0); Monocyte# 0.63 X10^3/uL; Monocyte% 8.6 % (0-10); NRBC Flagged by Analyzer 0 % (0-5); Neutrophil % 62.8 % (47-70); Platelet Count 267 K/mm3 (150-450); RBC Distribution Width CV 16.4 % (11.6-14.6); RBC Distribution Width SD 52.5 fl (35.1-43.9); Red Blood Count 3.53 M/mm3 (4.2-5.4); White Blood Count 7.3 K/mm3 (4.4-11.0)
[2021-11-18 16:07] LABS: Vitamin D,25 Hydroxy 22.2 ng/mL
[2021-11-18 16:21] LABS: ALB/GLOB Ratio 0.9 RATIO (0.9-2.4); AST(SGOT) 13 U/L (15-37); Alanine Aminotransfer ALT/SGPT 19 U/L (13-56); Albumin, Serum 3.3 g/dL (3.2-5.0); Alkaline Phosphatase 99 U/L (45-117); Anion Gap 7 (5-15); BUN 14 mg/dL (7-18); BUN/Creat Ratio 20.1 RATIO (10-20); Calcium,Total 8.9 mg/dL (8.5-10.1); Chloride 107 mmol/L (98-107); EST Glomerular Filtration Rate 86 mL/min (>60); Est Glom Filt Rate - Afr Amer 104 mL/min (>60); Globulin 3.5 g/dL (2.2-4.2); Glucose 141 mg/dL (74-106); Potassium 3.8 mmol/L (3.5-5.1); Protein, Total 6.8 g/dL (6.4-8.2); Sodium Level 139 mmol/L (136-145); Thyroid Stim Hormone (TSH) 0.46 uIU/mL (0.358-3.74)
== END 2021-11-18 23:59 | disposition short-term general hospital (02) ==
LOC: POLAB3 14:27
PROVIDERS: PCP Family Medicine Geriatric Medicine; Visit Provider Family Medicine Geriatric Medicine
DX: E11.9 Type 2 diabetes mellitus without complications (principal); E55.9 Vitamin D deficiency, unspecified; I10 Essential (primary) hypertension
CPT/HCPCS: 36415; 80053; 82306; 84443; 85025

== ENCOUNTER 2021-12-23 11:52 | Outpatient (CLI) | payer MEDICARE, SELFPAY ==
[2021-12-23 15:38] LABS: T4 Free Direct 0.84 ng/dL (0.76-1.46); Thyroid Stim Hormone (TSH) 0.34 uIU/mL (0.358-3.74)
[2021-12-25 13:36] LABS: Thyroid Peroxidase AB < 8 IU/mL (0-34)
== END 2021-12-23 23:59 | disposition home or self-care (01) ==
LOC: BIMLAB 11:53
PROVIDERS: PCP Family Medicine Geriatric Medicine; Referring Provider Internal Medicine Endocrinology, Diabetes & Metabolism; Visit Provider Internal Medicine Endocrinology, Diabetes & Metabolism
DX: R94.6 Abnormal results of thyroid function studies (principal); E11.9 Type 2 diabetes mellitus without complications
CPT/HCPCS: 36415; 84439; 84443; 84481; 86376

== ENCOUNTER 2021-12-28 14:52 | Inpatient (IN) | payer MEDICARE, SELFPAY ==
[2021-12-28] VITALS (15 sets, daily range): BP systolic 107–164; BP diastolic 32–116; PULSE 72–133; RESP 16–23; TEMP 35.7–36.9; O2SAT 90–99; BMI 29.2; BMI 30.2
--- NOTE | 2021-12-28 15:10 | EKG12_ITS ---
Test Reason : Blood Pressure : / mmHG Vent. Rate : 133 BPM Atrial Rate : 108 BPM P-R Int : 000 ms QRS Dur : 136 ms QT Int : 354 ms P-R-T Axes : 000 -39 128 degrees QTc Int : 526 ms Atrial fibrillation Left axis deviation Left bundle branch block Abnormal ECG Confirmed by JIMMY PEARSON, VALERIA ([id number]), editor in chief JENIFER WALLACE ([id number]) on 12/30/2021 11:04:30 AM Referred By: NUVIA Confirmed By:VALERIA MARQUEZ MD
--- NOTE | 2021-12-28 15:15 | EX.ED.DYSGE1 ---
HPI History of Present Illness Chief Complaint: Syncope Informant: patient Onset/Context/Timing Onset: Today Narrative Narrative: Patient presents for evaluation secondary to possible syncopal episode. Patient states she went out for breakfast with her daughter this morning. She got home around noon and laid down to take a nap. She woke up around 1 PM and after standing became lightheaded and dizzy. She sat back down on the couch. She states she laid there to rest for short time and thinks that she may have passed out briefly. She continues to complain of a spinning sensation. She initially states this started at 1 PM today but on further questioning states has been ongoing for the last 3 weeks. She does report a mild headache. She denies chest pain or palpitations. [facility] Medical History Abnormal results of thyroid function studies Anemia Anxiety and depression Back pain due to injury CAD (coronary artery disease) Chest pain Congestive heart failure (CHF) Current use of insulin Depression Gastroesophageal reflux disease High cholesterol History of hemorrhoids History of stress test HLD (hyperlipidemia) HTN (hypertension) Hyperlipidemia Irritable bowel Ischemic cardiomyopathy Myocardial infarct Non-smoker Osteoporosis Post-menopausal Sleep apnea Type II diabetes mellitus Vitamin D deficiency Home Medications sertraline 100 mg PO DAILY 02/26/19 [History Last Taken 04/12/21] albuterol sulfate 2 puff INHALATION BID 06/11/20 [History Last Taken 04/11/21] atorvastatin 20 mg PO QHS 06/11/20 [History Last Taken 04/12/21] isosorbide mononitrate 60 mg PO DAILY 04/12/21 [History Last Taken 04/12/21] pantoprazole 40 mg PO DAILY 04/12/21 [History Last Taken 04/12/21] acetaminophen 1,000 mg PO Q6H PRN PRN #0 tab 05/01/21 [Rx Last Taken Unknown] apixaban 2.5 mg PO BID 06/14/21 [History Last Taken Unknown] furosemide 40 mg PO DAILY 06/14/21 [History Last Taken Unknown] lisinopril 20 mg PO DAILY 06/14/21 [History Last Taken Unknown] polysaccharide iron complex [Ferrex 150] 150 mg PO DAILYCM 06/14/21 [History Last Taken Unknown] potassium chloride [Klor-Con M20] 20 meq PO BIDCM 06/14/21 [History Last Taken Unknown] amlodipine 5 mg PO DAILY #0 tab 07/09/21 [Rx Last Taken Unknown] insulin glargine [Lantus Solostar U-100 Insulin] 35 unit SUBCUT DAILY #0 ml 07/09/21 [Rx Last Taken Unknown] oxycodone 5 mg PO Q6H PRN 5 Days #20 tab 07/09/21 [Rx Last Taken Unknown] Prolia 60 mg/mL subcutaneous syringe 60 mg SUBCUT [id number] #1 ml NS 12/23/21 [Rx Last Taken Unknown] blood sugar diagnostic #100 ea 12/23/21 [Rx Last Taken Unknown] blood-glucose meter #1 ea 12/23/21 [Rx Last Taken Unknown] cholecalciferol (vitamin D3) 1,250 mcg (50,000 unit) capsule 1,250 mcg PO QWEEK #12 cap 12/23/21 [Rx Last Taken Unknown] metformin 500 mg tablet 500 mg PO .daily at supper #30 tab 12/23/21 [Rx Last Taken Unknown] nitroglycerin 0.4 mg sublingual tablet 0.4 mg SUBLINGUAL Q5M PRN #25 tab 12/23/21 [Rx Last Taken Unknown] atenolol 25 mg tablet 25 mg PO DAILY #90 tab 12/24/21 [Rx Last Taken Unknown] Allergy/AdvReac Type Severity Reaction Status Date / Time latex Allergy Other Verified 12/18/21 13:51 Family History Father CVA (cerebral vascular accident) Mother Heart disease CAD (coronary artery disease) Sister CAD (coronary artery disease) Daughter CAD (coronary artery disease) Myocardial infarction Daughter Diabetes Surgical History H/O: hysterectomy History of carpal tunnel release History of cholecystectomy History of cholecystectomy History of coronary artery stent placement History of heart artery stent History of kyphoplasty Hx of cholecystectomy Hx of knee surgery S/P hysterectomy Social History household members: none housing: house Smoking Status: Never smoker alcohol intake: never substance use type: does not use what type of physical activity do you participate in: none do you feel safe at home: Yes ROS ROS ED Constitutional Constitutional ED: Denies chills or fever(s) Eyes Eyes: Denies change in vision ENT ENT ED: Denies sore throat Cardiovascular Cardiovascular: Denies chest pain or palpitations Respiratory/Chest Respiratory/Chest: Denies cough or dyspnea Gastrointestinal Gastrointestinal: Denies abdominal pain, nausea or vomiting Genitourinary Genitourinary ED: Denies dysuria Musculoskeletal Musculoskeletal: Denies back pain or neck pain Integumentary Denies rash Neurologic Neurologic: Reports headache(s); Denies weakness Allergic/Immunologic Allergic/Immunologic ED: Denies urticaria EXAM Physical Exam Const Vital Signs: 12/28/21 14:53 12/28/21 15:05 Temperature 97.2 F L Temperature Source Temporal Pulse Rate 121 H Respiratory Rate 16 Respiratory Effort Normal Respiratory Pattern Normal Blood Pressure 161/81 H Blood Pressure Mean 107 Pulse Ox 95 Oxygen Delivery Method Room Air Positive well nourished and well developed General Appearance ED: well developed HEENT Reports moist mucous membranes Eyes PERRL and EOMs intact bilaterally Neck supple Chest Wall inspection of chest normal and palpation of chest normal Resp normal respiratory effort and clear to auscultation bilaterally Cardio Rate: tachycardic GI non-tender Palpation: soft Extremity normal to inspection Neuro oriented x3 Sensorium / Orientation: alert Psych mental status grossly normal Skin no rashes or lesions noted MDM MDM MDM Narrative Medical decision making narrative: EKG and chest x-ray obtained. Lab work ordered. Lab Data Attestation: I reviewed the patient's lab results. Labs: Laboratory Results - last 24 hr 12/28/21 12/28/21 12/28/21 15:15 15:15 15:15 WBC 7.4 RBC 3.91 L Hgb 11.0 L Hct 34.7 L MCV 88.7 MCH 28.1 MCHC 31.7 L RDW Std Deviation 53.8 H RDW Coeff of Aubrie 16.7 H Plt Count 255 MPV 11.1 Immature Gran % (Auto) 0.500 Neut % (Auto) 66.8 Lymph % (Auto) 22.9 [place] % (Auto) 6.8 Eos % (Auto) 2.2 Baso % (Auto) 0.8 Absolute Neuts (auto) 4.9 Absolute Lymphs (auto) 1.69 Nucleated RBC % 0 D-Dimer Quant (PE/DVT) 0.82 H* Sodium 141 Potassium 3.4 L Chloride 105 Carbon Dioxide 28.0 Anion Gap 8 BUN 13 Creatinine 1.01 Estim Creat Clear Calc 31.38 Est GFR (MDRD) Af Amer 68 Est GFR (MDRD) Non-Af 56 L BUN/Creatinine Ratio 12.9 Glucose 222 H Calcium 9.0 Total Bilirubin 0.40 Direct Bilirubin 0.10 AST 15 ALT 17 Alkaline Phosphatase 103 Troponin I High Sens 50 Total Protein 6.7 Albumin 3.4 Globulin 3.3 TSH 0.46 Radiography Chest X-Ray - ED: 1 View, Read by ED Physician and Chronic Changes Diagnostic Testing: Clinical Impression(s) from Imaging Studies Chest X-Ray 12/28/21 15:22 IMPRESSION: No acute cardiopulmonary process. Electronically Signed: Izaiah Brand MD at 15:44 EST , EKG Initial EKG: Attestation: I personally reviewed and interpreted this EKG as follows: Interpretation: Sinus Tachycardia (Sinus tach at 133 with left bundle branch block. Morphology similar to prior study of May 2021.) Treatment and Re-Evaluation Narrative: Nursing staff did bring me some rhythm strips. Patient had a approximately 4-second pause followed by what appears to be junctional escape rhythm and then return to her baseline morphology and rhythm after approximately 11 seconds total. Patient had pacer pads placed and crash cart placed at bedside. In talking with the patient these are the same type of episodes that she has been experiencing at home with the last 3 weeks. Lab work is reviewed. Potassium is 3.4. D-dimer 0.82 which is appropriate with age adjustment. Initial troponin is 50. TSH is normal at 0.46. I sent photos of the EKGs to Dr. Swann, on-call for cardiology. The patient's most recent EF is 55%. In light of this he would like the patient admitted to the ICU for close monitoring. He will see the patient in consult. I will speak with the hospitalist. Discharge Plan Triage Chief Complaint: Syncope ED Provider: Nighat Velasco Dx/Rx/DC Orders Clinical Impression: Syncope, Cardiac dysrhythmia Prescriptions: No Action Prolia 60 mg/mL syringe 60 mg subcut [id number] Qty: 1 RF: 1 cholecalciferol (vitamin D3) 1,250 mcg (50,000 unit) capsule 1,250 mcg PO QWEEK Qty: 12 RF: 3 (DME) blood-glucose meter Kit See Rx Instructions .ROUTE .MEDSUPPLY Qty: 1 RF: 0 (DME) blood sugar diagnostic Strip See Rx Instructions .ROUTE .MEDSUPPLY Qty: 100 RF: 6 metformin 500 mg tablet 500 mg PO .daily at supper Qty: 30 RF: 5 atenolol 25 mg tablet 25 mg PO DAILY Qty: 90 RF: 3 sertraline 100 MG tablet 100 mg PO DAILY RF: 0 albuterol sulfate 90 mcg/actuation HFA aerosol inhaler 2 puff INHALATION BID RF: 0 atorvastatin 20 MG tablet 20 mg PO QHS RF: 0 pantoprazole 40 mg tablet,delayed release (DR/EC) 40 mg PO DAILY RF: 0 isosorbide mononitrate 60 mg tablet extended release 24 hr 60 mg PO DAILY RF: 0 acetaminophen 500 mg Tablet 1,000 mg PO Q6H PRN PRN (Reason: Pain Score 1-5) Qty: 0 RF: 0 furosemide 40 mg tablet 40 mg PO DAILY RF: 0 polysaccharide iron complex [Ferrex 150] 150 mg iron capsule 150 mg PO DAILYCM RF: 0 lisinopril 20 mg tablet 20 mg PO DAILY RF: 0 potassium chloride [Klor-Con M20] 20 mEq tablet,ER particles/crystals 20 meq PO BIDCM RF: 0 apixaban 2.5 mg tablet 2.5 mg PO BID RF: 0 Lantus Solostar U-100 Insulin 100 unit/mL (3 mL) Insulin Pen 35 unit subcut DAILY Qty: 0 RF: 0 amlodipine 5 mg Tablet 5 mg PO DAILY Qty: 0 RF: 0 oxycodone 5 mg tablet 5 mg PO Q6H PRN (Reason: pain) 5 Days Qty: 20 RF: 0 nitroglycerin 0.4 mg tablet, sublingual 0.4 mg sublingual Q5M PRN (Reason: Cardiac/Chest Pain) Qty: 25 RF: 3 Primary Care Provider: Edmund Wang Referrals: Edmund Wang MD [Primary Care Provider] - Disposition Disposition: Acute Care [facility]
[2021-12-28 15:21] LABS: Absolute Lymphocyte Count 1.69 X10^3/uL (0.83-4.51); Absolute Neutrophil Count 4.9 X10^3/uL (2.0-7.7); Basophil# 0.06 X10^3/uL; Basophil% 0.8 % (0-1); Eosinophil# 0.16 X10^3/uL; Eosinophils% 2.2 % (0-5); Hematocrit 34.7 % (37-47); Lymphocyte # 1.69 X10^3/ul (0.83-4.51); Lymphocyte % 22.9 % (19-41); Mean Corp Hgb Conc 31.7 g/dL (32-36); Mean Corpuscular Hgb 28.1 pg (27.0-32.0); Mean Corpuscular Volume 88.7 fL (81-99); Mean Platelet Vol. 11.1 fl (6.2-12.0); Monocyte% 6.8 % (0-10); NRBC Flagged by Analyzer 0 % (0-5); Neutrophil # 4.93 X10^3/uL (2.7-7.7); Neutrophil % 66.8 % (47-70); Platelet Count 255 K/mm3 (150-450); RBC Distribution Width CV 16.7 % (11.6-14.6); RBC Distribution Width SD 53.8 fl (35.1-43.9); Red Blood Count 3.91 M/mm3 (4.2-5.4); White Blood Count 7.4 K/mm3 (4.4-11.0)
--- NOTE | 2021-12-28 15:22 | RAD_ITS ---
STUDY: X-RAY CHEST REASON FOR EXAM: Female, 81 years old. cp TECHNIQUE: 1 view COMPARISON: 06/11/2021 FINDINGS: The cardiac silhouette is abnormal. Costophrenic angles are sharp. Lungs are clear. The trachea is midline. There is no pneumothorax. There has been prior T12 vertebroplasty. RAD/Chest 1 View (Portable) IMPRESSION: No acute cardiopulmonary process. Electronically Signed: Izaiah Brand MD at 15:44 EST ,
--- NOTE | 2021-12-28 15:33 | ED.RN ---
pt has appx 5 second asystole. converted to an escape rhythm and then returned to sinus tachycardia. placed defib/pacer pads. educated pt on care.
[2021-12-28 15:35] LABS: D-Dimer Quantitative (DVT/PE) 0.82 FEU/ug/m (0.27-0.49)
[2021-12-28 15:45] LABS: AST(SGOT) 15 U/L (15-37); Alanine Aminotransfer ALT/SGPT 17 U/L (13-56); Albumin, Serum 3.4 g/dL (3.2-5.0); Alkaline Phosphatase 103 U/L (45-117); Anion Gap 8 (5-15); BUN 13 mg/dL (7-18); BUN/Creat Ratio 12.9 RATIO (10-20); Chloride 105 mmol/L (98-107); Creatinine, Serum 1.01 mg/dL (0.55-1.02); EST Glomerular Filtration Rate 56 mL/min (>60); Est Glom Filt Rate - Afr Amer 68 mL/min (>60); Estimated Creatinine Clearance 31.38 ml/min; Globulin 3.3 g/dL (2.2-4.2); Glucose 222 mg/dL (74-106); Potassium 3.4 mmol/L (3.5-5.1); Protein, Total 6.7 g/dL (6.4-8.2); Sodium Level 141 mmol/L (136-145); Thyroid Stim Hormone (TSH) 0.46 uIU/mL (0.358-3.74); Troponin-I HS 50 pg/mL (3.0-54.0)
--- NOTE | 2021-12-28 16:13 | HP.PCM.HOS_ITS ---
HPI - General General Date of Admission: 12/28/21 Date of Service: 12/28/21 Chief Complaint: Past HPI Narrative LARRY MALDONADO, is a 81 F who presents with a syncopal episode. Patient reports a feeling of lightheadedness and head heaviness after taking a short nap on the afternoon of her presentation. Early start back in her chair and felt she had passed out briefly. In view of the persistent headache she was brought to the emergency department by her daughter. While has been evaluated in the ED patient was noted to have a 4-second pause with a subsequent junctional escape rhythm. Had 11 seconds pause. She was later found to have A. fib with aberrancy on the monitor. Cardiology was notified from the ED Dr. Swann who recommended for patient to be admitted to the intensive care unit for further management with the possibility of patient undergoing pacemaker placement on 12/30/2021 PENDING SALE TO [facility] Medical History Abnormal results of thyroid function studies Anemia Anxiety and depression Back pain due to injury CAD (coronary artery disease) Chest pain Congestive heart failure (CHF) Current use of insulin Depression Gastroesophageal reflux disease High cholesterol History of hemorrhoids History of stress test HLD (hyperlipidemia) HTN (hypertension) Hyperlipidemia Irritable bowel Ischemic cardiomyopathy Myocardial infarct Non-smoker Osteoporosis Post-menopausal Sleep apnea Type II diabetes mellitus Vitamin D deficiency Home Medications sertraline 100 mg PO DAILY 02/26/19 [History Last Taken 04/12/21] albuterol sulfate 2 puff INHALATION BID 06/11/20 [History Last Taken 04/11/21] atorvastatin 20 mg PO QHS 06/11/20 [History Last Taken 04/12/21] isosorbide mononitrate 60 mg PO DAILY 04/12/21 [History Last Taken 04/12/21] pantoprazole 40 mg PO DAILY 04/12/21 [History Last Taken 04/12/21] acetaminophen 1,000 mg PO Q6H PRN PRN #0 tab 05/01/21 [Rx Last Taken Unknown] apixaban 2.5 mg PO BID 06/14/21 [History Last Taken Unknown] furosemide 40 mg PO DAILY 06/14/21 [History Last Taken Unknown] lisinopril 20 mg PO DAILY 06/14/21 [History Last Taken Unknown] polysaccharide iron complex [Ferrex 150] 150 mg PO DAILYCM 06/14/21 [History Last Taken Unknown] potassium chloride [Klor-Con M20] 20 meq PO BIDCM 06/14/21 [History Last Taken Unknown] amlodipine 5 mg PO DAILY #0 tab 07/09/21 [Rx Last Taken Unknown] insulin glargine [Lantus Solostar U-100 Insulin] 35 unit SUBCUT DAILY #0 ml 07/09/21 [Rx Last Taken Unknown] oxycodone 5 mg PO Q6H PRN 5 Days #20 tab 07/09/21 [Rx Last Taken Unknown] Prolia 60 mg/mL subcutaneous syringe 60 mg SUBCUT [id number] #1 ml NS 12/23/21 [Rx Last Taken Unknown] blood sugar diagnostic #100 ea 12/23/21 [Rx Last Taken Unknown] blood-glucose meter #1 ea 12/23/21 [Rx Last Taken Unknown] cholecalciferol (vitamin D3) 1,250 mcg (50,000 unit) capsule 1,250 mcg PO QWEEK #12 cap 12/23/21 [Rx Last Taken Unknown] metformin 500 mg tablet 500 mg PO .daily at supper #30 tab 12/23/21 [Rx Last Taken Unknown] nitroglycerin 0.4 mg sublingual tablet 0.4 mg SUBLINGUAL Q5M PRN #25 tab 12/23/21 [Rx Last Taken Unknown] atenolol 25 mg tablet 25 mg PO DAILY #90 tab 12/24/21 [Rx Last Taken Unknown] Allergy/AdvReac Type Severity Reaction Status Date / Time latex Allergy Other Verified 12/18/21 13:51 Family History Father CVA (cerebral vascular accident) Mother Heart disease CAD (coronary artery disease) Sister CAD (coronary artery disease) Daughter CAD (coronary artery disease) Myocardial infarction Daughter Diabetes Surgical History H/O: hysterectomy History of carpal tunnel release History of cholecystectomy History of cholecystectomy History of coronary artery stent placement History of heart artery stent History of kyphoplasty Hx of cholecystectomy Hx of knee surgery S/P hysterectomy Social History household members: none housing: house Smoking Status: Never smoker alcohol intake: never substance use type: does not use what type of physical activity do you participate in: none do you feel safe at home: Yes ROS ROS Narrative GENERAL: denies fever, chills, night sweats, weight loss, anorexia HEENT: headache, but denies sinus congestion, or drainage, dysphagia RESPIRATORY: denies cough, sputum production, shortness of breath, CARDIAC: denies chest pain, palpitations, orthopnea, PND GASTROINTESTINAL: denies abdominal pain, nausea, vomiting, melena, GENITOURINARY: denies dysuria, urgency, frequency, heamaturia EXTREMITY: denies swelling MUSCULOSKELETAL: denies current joint pain or tenderness NEUROLOGIC: denies focal numbness, weakness, tingling HEMATOLOGIC: denies easy bruising and/or hemorrhage INTEGUMENT: denies rashes PSYCHIATRIC: denies suicidal or homicidal ideation Vital Signs Vital Signs Vital Signs: 12/28/21 14:53 12/28/21 15:05 Temperature 97.2 F L Temperature Source Temporal Pulse Rate 121 H Respiratory Rate 16 Respiratory Effort Normal Respiratory Pattern Normal Blood Pressure 161/81 H Blood Pressure Mean 107 Pulse Ox 95 Oxygen Delivery Method Room Air Weight Weight: 68.039 kg Body Mass Index (BMI) 29.2 Physical Exam Narrative GENERAL: cooperative HEENT: Atraumatic; EYES; Anicteric, Normal Conjunctiva NECK; supple, normal thyroid, RESPIRATORY: Diminished to auscultation CARDIOVASCULAR: Irregularly irregular, tachycardic GI: soft, normoactive bowel sounds, : No Renal angle tenderness; EXTREMITIES: No edema, no clubbing, MUSCULOSKELETAL: no muscle wasting NEURO: Awake; no lateralizing signs. SKIN: No Rash PSYCH; Flat affect Results Lab / Micro Data Result Diagrams: 12/28/21 15:15 12/28/21 15:15 Labs: Laboratory Results - last 24 hr 12/28/21 15:15: WBC 7.4, RBC 3.91 L, Hgb 11.0 L, Hct 34.7 L, MCV 88.7, MCH 28.1, MCHC 31.7 L, RDW Std Deviation 53.8 H, RDW Coeff of Aubrie 16.7 H, Plt Count 255, MPV 11.1, Immature Gran % (Auto) 0.500, Neut % (Auto) 66.8, Lymph % (Auto) 22.9, [place] % (Auto) 6.8, Eos % (Auto) 2.2, Baso % (Auto) 0.8, Absolute Neuts (auto) 4.9, Absolute Lymphs (auto) 1.69, Nucleated RBC % 0 12/28/21 15:15: D-Dimer Quant (PE/DVT) 0.82 H* 12/28/21 15:15: Sodium 141, Potassium 3.4 L, Chloride 105, Carbon Dioxide 28.0, Anion Gap 8, BUN 13, Creatinine 1.01, Estim Creat Clear Calc 31.38, Est GFR (MDRD) Af Amer 68, Est GFR (MDRD) Non-Af 56 L, BUN/Creatinine Ratio 12.9, Glucose 222 H, Calcium 9.0, Total Bilirubin 0.40, Direct Bilirubin 0.10, AST 15, ALT 17, Alkaline Phosphatase 103, Troponin I High Sens 50, Total Protein 6.7, Albumin 3.4, Globulin 3.3, TSH 0.46 Radiology Impression Chest X-Ray 12/28/21 15:22 IMPRESSION: No acute cardiopulmonary process. Electronically Signed: Izaiah Brand MD at 15:44 EST , Assessment & Plan Assessment/Plan (1) Syncope: (2) Cardiac dysrhythmia: PLAN: Patient is an 81-year-old lady presented with syncopal episode found to have significant cardiac dysrhythmia was being evaluated in the ED 1. Syncopal episode ?Secondary to cardiac dysrhythmia patient was found to have a 4-second pause later followed by a junctional escape rhythm. Patient has been admitted to the intensive care unit Case was discussed with Dr. Coleman cardiology on-call. Recommended obtaining a 2D echo patient to be started on heparin in view of concomitant A. fib with aberrancy with possible plans for pacemaker 14 2. A. fib with aberrancy ?? New onset. Patient was started on heparin drip. As part of a management ordered a 2D echo as well as CTA of the chest in view of elevated D-dimer and previous history of PE 3. Elevated D-dimer ?Patient has previous history of PE CTA ordered to rule out recurrent PE 4. Hypokalemia ?Corrected per protocol 5. Diabetes mellitus type 2 ?Patient is on long-acting insulin plan is to continue with home dose with Accu- Cheks before meals and at bedtime with sliding scale coverage as needed 6. Hypertension - Blood pressure controlled, home medications continued with dose adjustment as needed 7. Dyslipidemia -Patient is on statin therapy, continued at home dose 8. Coronary artery disease ?With previous PCI to mid first diagonal lesion 9. Peripheral arterial disease ?Stable 10. Chronic congestive heart failure ?With preserved ejection fraction 10. Chronic iron deficiency anemia ?Patient followed by heme-onc as outpatient on iron supplementation 11. Depression ?Patient is on sertraline discontinued 12. DVT prophylaxis ?Patient is on heparin Advance planning; did discuss with the patient and family regarding advanced directives as well as CODE STATUS. Did explain the various scenarios involved ( FULL CODE, DNR CCA, DNR CCA with no intubation, and DNR CC and what each meant) patient elected to full code with CPR and intubation if needed. Order was placed. Time spent on discussion 18 minutes. Charges/Coding Visit Charges Inpatient E&M: 13870 Init Hosp L3 Procedures Hospitalists Procedures: 07171 Advncd Care Plan 30 Min
--- NOTE | 2021-12-28 16:25 | CT_ITS ---
STUDY: CTA CHEST REASON FOR EXAM: Female, 81 years old. ELEVATED D DIMER RADIATION DOSAGE (If Supplied By Facility): CTDIvol = ( 10.28 ) mGy, DLP = ( 405.12 ) mGycm TECHNIQUE: The examination was performed with the intravenous administration of IV 100mL [id number]-[id number]. Post-processing of the angiographic images was performed, with multiplanar reformation and 3D reconstruction. Individualized dose optimization techniques were used for this CT. COMPARISON: 04/12/2021 FINDINGS: No filling defect in the pulmonary arteries to suggest pulmonary embolism. Atherosclerosis of the thoracic aorta and coronary arteries noted. Dense mitral valve calcification. Borderline cardiomegaly. No pericardial or pleural effusion. No adenopathy. Heterogeneous thyroid gland which may contain ill-defined nodules. No pneumothorax. No pulmonary consolidation, mass, or suspicious nodule. Sections through the upper abdomen demonstrate intact visualized abdominal viscera. Old compression fracture of T12, status post vertebroplasty. Multilevel thoracic spondylosis. Diffuse osteopenia. CT/CTA Chest W/WO Contrast IMPRESSION: No evidence of pulmonary embolism. Borderline cardiomegaly. No pneumonia. No pleural or pericardial effusion. Electronically Signed: Izaiah Brand MD at 17:51 EST ,
[2021-12-28 16:45] LABS: International Normalized Ratio 1.1; Prothrombin Time (Protime)PT. 13.8 SECONDS (11.7-14.9)
[2021-12-28 16:48] LABS: Magnesium 1.3 mg/dL (1.6-2.6)
--- NOTE | 2021-12-28 16:55 | CON.PCM.CA_ITS ---
Assessment & Plan Assessment/Plan (1) Cardiac dysrhythmia: (2) Diabetes mellitus: (3) Coronary artery disease: (4) Syncope: PLAN: Cardiac consultation requested for evaluation of syncope with long pause on traffic monitor specialist This is a 81-year-old patient with known history of CAD and PCI and stent of diagonal branch in December 14, 2003 using 2.5 x 18 mm Cypher stent. History of chronic diastolic heart failure/left hip fracture Hypertension, hyperlipidemia Evidently she called her daughter today as she had a history of syncope she noted she had dizzy spell lightheaded and she passed out while at home she read by herself and Daughter brought her over here at [facility] [place] [facility] where an EKG showed evidence of underlying left bundle branch block which is chronic, also noted long pause around 12-second. On review of her home medication noted atenolol, apixaban She has history of diabetes pulmonary believes him history of left hip fracture treated surgically Cardiac care plan recommendations; 1. To be admitted to ICU with bedside transcutaneous pacer and atropine. Will avoid AV blocking medication 2. A prior echocardiogram showed LV function was within normal To repeat an echo on Thursday and EKG. 3. Noted her serum potassium was low 3.4 correction of electrolyte serum pota ssium and magnesium. 4. Primary will call order clerk Dr. Billy will resume care on Thursday to discuss ne ed for permanent pacemaker based on her LV function and her traffic monitor specialist. We will continue to monitor and follow-up clinically HPI Consult Data Date of Consult: 12/28/21 HPI Narrative Reason for Consultation: Syncopal episode with long pause, 12 seconds HPI Narrative: LARRY MALDONADO, is a 81 F who presents [facility] Medical History Abnormal results of thyroid function studies Anemia Anxiety and depression Back pain due to injury CAD (coronary artery disease) Chest pain Congestive heart failure (CHF) Current use of insulin Depression Gastroesophageal reflux disease High cholesterol History of hemorrhoids History of stress test HLD (hyperlipidemia) HTN (hypertension) Hyperlipidemia Irritable bowel Ischemic cardiomyopathy Myocardial infarct Non-smoker Osteoporosis Post-menopausal Sleep apnea Type II diabetes mellitus Vitamin D deficiency Home Medications sertraline 100 mg PO DAILY 02/26/19 [History Last Taken 04/12/21] albuterol sulfate 2 puff INHALATION BID 06/11/20 [History Last Taken 04/11/21] atorvastatin 20 mg PO QHS 06/11/20 [History Last Taken 04/12/21] isosorbide mononitrate 60 mg PO DAILY 04/12/21 [History Last Taken 04/12/21] pantoprazole 40 mg PO DAILY 04/12/21 [History Last Taken 04/12/21] acetaminophen 1,000 mg PO Q6H PRN PRN #0 tab 05/01/21 [Rx Last Taken Unknown] apixaban 2.5 mg PO BID 06/14/21 [History Last Taken Unknown] furosemide 40 mg PO DAILY 06/14/21 [History Last Taken Unknown] lisinopril 20 mg PO DAILY 06/14/21 [History Last Taken Unknown] polysaccharide iron complex [Ferrex 150] 150 mg PO DAILYCM 06/14/21 [History Last Taken Unknown] potassium chloride [Klor-Con M20] 20 meq PO BIDCM 06/14/21 [History Last Taken Unknown] amlodipine 5 mg PO DAILY #0 tab 07/09/21 [Rx Last Taken Unknown] insulin glargine [Lantus Solostar U-100 Insulin] 35 unit SUBCUT DAILY #0 ml 07/09/21 [Rx Last Taken Unknown] oxycodone 5 mg PO Q6H PRN 5 Days #20 tab 07/09/21 [Rx Last Taken Unknown] Prolia 60 mg/mL subcutaneous syringe 60 mg SUBCUT [id number] #1 ml NS 12/23/21 [Rx Last Taken Unknown] blood sugar diagnostic #100 ea 12/23/21 [Rx Last Taken Unknown] blood-glucose meter #1 ea 12/23/21 [Rx Last Taken Unknown] cholecalciferol (vitamin D3) 1,250 mcg (50,000 unit) capsule 1,250 mcg PO QWEEK #12 cap 12/23/21 [Rx Last Taken Unknown] metformin 500 mg tablet 500 mg PO .daily at supper #30 tab 12/23/21 [Rx Last Taken Unknown] nitroglycerin 0.4 mg sublingual tablet 0.4 mg SUBLINGUAL Q5M PRN #25 tab 12/23/21 [Rx Last Taken Unknown] atenolol 25 mg tablet 25 mg PO DAILY #90 tab 12/24/21 [Rx Last Taken Unknown] Allergy/AdvReac Type Severity Reaction Status Date / Time latex Allergy Other Verified 12/18/21 13:51 Family History Father CVA (cerebral vascular accident) Mother Heart disease CAD (coronary artery disease) Sister CAD (coronary artery disease) Daughter CAD (coronary artery disease) Myocardial infarction Daughter Diabetes Surgical History H/O: hysterectomy History of carpal tunnel release History of cholecystectomy History of cholecystectomy History of coronary artery stent placement History of heart artery stent History of kyphoplasty Hx of cholecystectomy Hx of knee surgery S/P hysterectomy Social History household members: none housing: house Smoking Status: Never smoker alcohol intake: never substance use type: does not use what type of physical activity do you participate in: none do you feel safe at home: Yes Physical Exam Narrative Patient seen and evaluated bedside in the ER Along with the medical team and ER physician Daughter at bedside at time of evaluation she is alert orientated Not in acute distress On review of the traffic monitor specialist she had a long pause more than 12 seconds With tachy-bradycardia syndrome/A. fib with aberrancy Cardiovascular examination; S1-S2 regular, no systolic or diastolic murmur Chest examination; clear to auscultation bilateral Examination abdomen; soft. Examination lower extremity; she had mild bilateral lower extremity edema more prominent in the left side Central nervous system exam no focal neurological deficit Risk Stratification Risk Stratification Applicable: Yes Age >/= 65: Yes >/= 3 CAD Risk Factors (HTN, HLD, DM, family hx of CAD, or current smoker): No Aspirin Use in the Past 7 Days: Yes Severe Angina (>/= episodes in 24 hours): No EKG ST Changes >/= 0.5mm: No Positive Cardiac Marker: No DAO Risk Stratification Score: 2 DAO % Risk: 8% Risk Objective Data Vital Signs: Vital Signs Temp Pulse Resp BP Pulse Ox 97.2 F L 130 H 16 164/84 H 98 12/28/21 14:53 12/28/21 16:30 12/28/21 16:30 12/28/21 16:30 12/28/21 16:30 Oxygen Delivery Method Room Air Weight: 150 lb Body Mass Index (BMI) 29.2 Lab / Micro Data Result Diagrams: 12/28/21 15:15 12/28/21 15:15 Labs: Laboratory Results - last 24 hr 12/28/21 15:15: WBC 7.4, RBC 3.91 L, Hgb 11.0 L, Hct 34.7 L, MCV 88.7, MCH 28.1, MCHC 31.7 L, RDW Std Deviation 53.8 H, RDW Coeff of Aubrie 16.7 H, Plt Count 255, MPV 11.1, Immature Gran % (Auto) 0.500, Neut % (Auto) 66.8, Lymph % (Auto) 22.9, Swisher % (Auto) 6.8, Eos % (Auto) 2.2, Baso % (Auto) 0.8, Absolute Neuts (auto) 4.9, Absolute Lymphs (auto) 1.69, Nucleated RBC % 0 12/28/21 15:15: D-Dimer Quant (PE/DVT) 0.82 H* 12/28/21 15:15: Sodium 141, Potassium 3.4 L, Chloride 105, Carbon Dioxide 28.0, Anion Gap 8, BUN 13, Creatinine 1.01, Estim Creat Clear Calc 31.38, Est GFR (MDRD) Af Amer 68, Est GFR (MDRD) Non-Af 56 L, BUN/Creatinine Ratio 12.9, Glucose 222 H, Calcium 9.0, Total Bilirubin 0.40, Direct Bilirubin 0.10, AST 15, ALT 17, Alkaline Phosphatase 103, Troponin I High Sens 50, Total Protein 6.7, Albumin 3.4, Globulin 3.3, TSH 0.46 12/28/21 15:15: Magnesium 1.3 L 12/28/21 15:15: PT 13.8, INR 1.1, APTT 32.0 Cardiology Labs/Tests 12/28/21 15:15: WBC 7.4, RBC 3.91 L, Hgb 11.0 L, Hct 34.7 L, MCV 88.7, MCH 28.1, MCHC 31.7 L, Plt Count 255, MPV 11.1, Immature Gran % (Auto) 0.500, Neut % (Auto) 66.8, Lymph % (Auto) 22.9, Swisher % (Auto) 6.8, Eos % (Auto) 2.2, Baso % (Auto) 0.8, Absolute Neuts (auto) 4.9, Nucleated RBC % 0 12/28/21 15:15: D-Dimer Quant (PE/DVT) 0.82 H* 12/28/21 15:15: Sodium 141, Potassium 3.4 L, Chloride 105, Carbon Dioxide 28.0, Anion Gap 8, BUN 13, Creatinine 1.01, Est GFR (MDRD) Af Amer 68, Est GFR (MDRD) Non-Af 56 L, BUN/Creatinine Ratio 12.9, Glucose 222 H, Calcium 9.0, Total Bilirubin 0.40, Direct Bilirubin 0.10 12/28/21 15:15: Magnesium 1.3 L 12/28/21 15:15: PT 13.8, INR 1.1, APTT 32.0 Rhythm: EKG: ECHO: Stress Test: Cardiac Cath: PCI: CT Surgery: Holter monitor: EPS: PPM: CXR: Chest CT Scan: Radiography Diagnostic Testing: Radiology Impression Chest X-Ray 12/28/21 15:22 IMPRESSION: No acute cardiopulmonary process. Electronically Signed: Izaiah Brand MD at 15:44 EST ,
[2021-12-28] MEDS: 0.9% Normal Saline 1,000 ML 75 ML IV (17:52)
[2021-12-28] MEDS: Potassium Chloride Oral Tablet 20 MEQ PO (17:52)
[2021-12-28] MEDS: Potassium Chloride 10mEq/100mL 10 MEQ/100 ML IV.SOLN. 100 MEQ IV BOLUS ×4 (17:55→21:56)
[2021-12-28] MEDS: Heparin Injection (Vial) 5,000 UNIT/ML VIAL 4000 UNIT IV (17:56)
[2021-12-28] MEDS: Insulin Lispro 100 UNIT/ML INSULN.PEN SC (20:32)
[2021-12-28 20:45] LABS: Troponin-I HS 48 pg/mL (3.0-54.0)
[2021-12-28 21:21] LABS: Bedside Glucose 162 mg/dL (74-106)
--- NOTE | 2021-12-28 22:50 | EKG12_ITS ---
Test Reason : Blood Pressure : / mmHG Vent. Rate : 082 BPM Atrial Rate : 082 BPM P-R Int : 166 ms QRS Dur : 134 ms QT Int : 430 ms P-R-T Axes : 053 -38 127 degrees QTc Int : 502 ms Normal sinus rhythm Left axis deviation Left bundle branch block Abnormal ECG No previous ECGs available Confirmed by JIMMY PEARSON, VALERIA ([id number]), proposal editor JENIFER WALLACE ([id number]) on 12/30/2021 11:28:09 AM Referred By: DR. ORTIZ Confirmed By:VALERIA MARQUEZ MD
[2021-12-29] VITALS (37 sets, daily range): BP systolic 83–165; BP diastolic 39–103; PULSE 52–152; RESP 12–35; TEMP 36.1–36.8; O2SAT 73–100
[2021-12-29 01:04] LABS: Troponin-I HS 52 pg/mL (3.0-54.0)
[2021-12-29 05:04] LABS: Absolute Neutrophil Count 5.1 X10^3/uL (2.0-7.7); Basophil# 0.04 X10^3/uL; Basophil% 0.5 % (0-1); Eosinophil# 0.25 X10^3/uL; Eosinophils% 3.1 % (0-5); Hematocrit 32.3 % (37-47); Hemoglobin 10.5 g/dL (12.0-15.0); Lymphocyte % 23.9 % (19-41); Mean Corp Hgb Conc 32.5 g/dL (32-36); Mean Corpuscular Hgb 28.5 pg (27.0-32.0); Mean Corpuscular Volume 87.5 fL (81-99); Monocyte# 0.58 X10^3/uL; Monocyte% 7.3 % (0-10); NRBC Flagged by Analyzer 0 % (0-5); Neutrophil # 5.14 X10^3/uL (2.7-7.7); Neutrophil % 64.7 % (47-70); Platelet Count 237 K/mm3 (150-450); RBC Distribution Width CV 16.6 % (11.6-14.6); RBC Distribution Width SD 53.1 fl (35.1-43.9); Red Blood Count 3.69 M/mm3 (4.2-5.4)
[2021-12-29 05:16] LABS: Anion Gap 5 (5-15); BUN 9 mg/dL (7-18); BUN/Creat Ratio 15.3 RATIO (10-20); Calcium,Total 8.7 mg/dL (8.5-10.1); Chloride 106 mmol/L (98-107); Creatinine, Serum 0.59 mg/dL (0.55-1.02); EST Glomerular Filtration Rate 104 mL/min (>60); Est Glom Filt Rate - Afr Amer 126 mL/min (>60); Estimated Creatinine Clearance 47.39 ml/min; Glucose 121 mg/dL (74-106); Magnesium 2.6 mg/dL (1.6-2.6); Sodium Level 140 mmol/L (136-145)
[2021-12-29 06:56] LABS: Bedside Glucose 119 mg/dL (74-106)
--- NOTE | 2021-12-29 07:38 | PN.HOSP_ITS ---
Subjective Subjective Patient admitted to the intensive care unit overnight had a 6-second pause. CTA obtained was negative for PE. Objective Data Objective Data Vital Signs: Vital Signs Temp Pulse Resp BP Pulse Ox 97.9 F 76 18 157/45 H 96 12/29/21 04:00 12/29/21 07:00 12/29/21 07:00 12/29/21 07:00 12/29/21 07:00 Oxygen Delivery Method Room Air Weight: 68.04 kg Body Mass Index (BMI) 30.2 Intake & Output: Intake and Output for Last 24 Hours 12/27/21 12/28/21 12/30/21 23:59 23:59 00:59 Intake Total 500 / 500 104 / 104 Output Total 250 / 650 650 / 650 Balance 250 / -150 -546 / -546 Lab / Micro Data Result Diagrams: 12/29/21 04:45 12/29/21 04:45 Labs: Laboratory Results - last 24 hr 12/28/21 15:15: WBC 7.4, RBC 3.91 L, Hgb 11.0 L, Hct 34.7 L, MCV 88.7, MCH 28.1, MCHC 31.7 L, RDW Std Deviation 53.8 H, RDW Coeff of Aubrie 16.7 H, Plt Count 255, MPV 11.1, Immature Gran % (Auto) 0.500, Neut % (Auto) 66.8, Lymph % (Auto) 22.9, Marshall % (Auto) 6.8, Eos % (Auto) 2.2, Baso % (Auto) 0.8, Absolute Neuts (auto) 4.9, Absolute Lymphs (auto) 1.69, Nucleated RBC % 0 12/28/21 15:15: D-Dimer Quant (PE/DVT) 0.82 H* 12/28/21 15:15: Sodium 141, Potassium 3.4 L, Chloride 105, Carbon Dioxide 28.0, Anion Gap 8, BUN 13, Creatinine 1.01, Estim Creat Clear Calc 31.38, Est GFR (MDRD) Af Amer 68, Est GFR (MDRD) Non-Af 56 L, BUN/Creatinine Ratio 12.9, Glucose 222 H, Calcium 9.0, Total Bilirubin 0.40, Direct Bilirubin 0.10, AST 15, ALT 17, Alkaline Phosphatase 103, Troponin I High Sens 50, Total Protein 6.7, Albumin 3.4, Globulin 3.3, TSH 0.46 12/28/21 15:15: Magnesium 1.3 L 12/28/21 15:15: PT 13.8, INR 1.1, APTT 32.0 12/28/21 20:15: Troponin I High Sens 48 12/28/21 20:18: POC Glucose 162 H 12/29/21 00:15: APTT 57.0 H 12/29/21 00:15: Troponin I High Sens 52 12/29/21 04:45: WBC 8.0, RBC 3.69 L, Hgb 10.5 L, Hct 32.3 L, MCV 87.5, MCH 28.5, MCHC 32.5, RDW Std Deviation 53.1 H, RDW Coeff of Aubrie 16.6 H, Plt Count 237, MPV 11.0, Immature Gran % (Auto) 0.500, Neut % (Auto) 64.7, Lymph % (Auto) 23.9, Marshall % (Auto) 7.3, Eos % (Auto) 3.1, Baso % (Auto) 0.5, Absolute Neuts (auto) 5.1, Absolute Lymphs (auto) 1.90, Nucleated RBC % 0 12/29/21 04:45: Sodium 140, Potassium 4.0, Chloride 106, Carbon Dioxide 29.0, Anion Gap 5, BUN 9, Creatinine 0.59, Estim Creat Clear Calc 47.39, Est GFR (MDRD) Af Amer 126, Est GFR (MDRD) Non-Af 104, BUN/Creatinine Ratio 15.3, Glucose 121 H, Calcium 8.7, Magnesium 2.6 12/29/21 06:50: APTT 49.0 H 12/29/21 06:51: POC Glucose 119 H Radiography Diagnostic Testing: Radiology Impression Chest X-Ray 12/28/21 15:22 IMPRESSION: No acute cardiopulmonary process. Electronically Signed: Izaiah Brand MD at 15:44 EST , Chest CTA 12/28/21 16:25 IMPRESSION: No evidence of pulmonary embolism. Borderline cardiomegaly. No pneumonia. No pleural or pericardial effusion. Electronically Signed: Izaiah Brand MD at 17:51 EST , Physical Exam Narrative GENERAL: cooperative HEENT: Atraumatic; EYES; Anicteric, Normal Conjunctiva NECK; supple, normal thyroid, RESPIRATORY: Diminished to auscultation CARDIOVASCULAR: Irregularly irregular, GI: soft, normoactive bowel sounds, : No Renal angle tenderness; EXTREMITIES: No edema, no clubbing, MUSCULOSKELETAL: no muscle wasting NEURO: Awake; no lateralizing signs. SKIN: No Rash PSYCH; Flat affect Assessment & Plan Assessment/Plan (1) Syncope: (2) Cardiac dysrhythmia: PLAN: Patient is an 81-year-old lady presented with syncopal episode found to have significant cardiac dysrhythmia was being evaluated in the ED 1. Syncopal episode ?Secondary to cardiac dysrhythmia patient was found to have a 4-second pause later followed by a junctional escape rhythm. Patient has been admitted to the intensive care unit Case was discussed with Dr. Coleman cardiology on-call. Recommended obtaining a 2D echo patient to be started on heparin in view of concomitant A. fib with aberrancy with possible plans for pacemaker placement ?12/29/2021; admitted to the intensive care unit where patient was monitored overnight had a 6-second pause 2. A. fib with aberrancy ?? New onset. Patient was started on heparin drip. As part of a management ordered a 2D echo as well as CTA of the chest in view of elevated D-dimer and previous history of PE -12/29/2021; heart rate remains controlled as of this morning 3. Elevated D-dimer ?Patient has previous history of PE CTA ordered to rule out recurrent PE -12/29/2021. CTA was negative for PE 4. Hypokalemia ?Corrected per protocol ?12/29/2021; potassium 4.0 as of this a.m. 5. Diabetes mellitus type 2 ?Patient is on long-acting insulin plan is to continue with home dose with Accu- Cheks before meals and at bedtime with sliding scale coverage as needed 6. Hypertension - Blood pressure controlled, home medications continued with dose adjustment as needed 7. Dyslipidemia -Patient is on statin therapy, continued at home dose 8. Coronary artery disease ?With previous PCI to mid first diagonal lesion 9. Peripheral arterial disease ?Stable 10. Chronic congestive heart failure ?With preserved ejection fraction 10. Chronic iron deficiency anemia ?Patient followed by heme-onc as outpatient on iron supplementation 11. Depression ?Patient is on sertraline discontinued 12. DVT prophylaxis ?Patient is on heparin Charges/Coding Visit Charges Inpatient E&M: 26980 Subs Hosp L3
[2021-12-29] MEDS: Heparin Injection (Vial) 5,000 UNIT/ML VIAL IV ×2 (08:05→16:25)
[2021-12-29] MEDS: 0.9% Saline Lock 10 ML Syringe IV (08:07)
[2021-12-29] MEDS: Loperamide 2 MG Capsule PO (10:02)
[2021-12-29] MEDS: Potassium Chloride Oral Tablet 20 MEQ PO ×2 (10:03→17:40)
[2021-12-29 12:06] LABS: Bedside Glucose 228 mg/dL (74-106)
[2021-12-29] MEDS: Insulin Lispro 100 UNIT/ML INSULN.PEN SC (12:17)
--- NOTE | 2021-12-29 12:19 | PCM.PN.CARD ---
Subjective Subjective Patient seen and evaluated today at bedside and discussed with the nursing staff In intensive care unit. Events of last night noted long pause on cardiac telemetry with junctional escape rhythm Patient was symptomatic with lightheadedness and dizziness during this episode last night This morning no symptoms reported Objective Data Vital Signs: Vital Signs Temp Pulse Resp BP Pulse Ox 97.8 F 76 20 H 130/53 H 96 12/29/21 08:00 12/29/21 10:00 12/29/21 10:00 12/29/21 10:00 12/29/21 10:00 Oxygen Delivery Method Room Air Weight: 150 lb 0.04 oz Body Mass Index (BMI) 30.2 Intake & Output: Intake and Output for Last 24 Hours 12/27/21 12/28/21 12/30/21 23:59 23:59 00:59 Intake Total 500 / 500 760.13 / 760.13 Output Total 250 / 650 650 / 650 Balance 250 / -150 110.13 / 110.13 Lab / Micro Data Result Diagrams: 12/29/21 04:45 12/29/21 04:45 Labs: Laboratory Results - last 24 hr 12/28/21 15:15: WBC 7.4, RBC 3.91 L, Hgb 11.0 L, Hct 34.7 L, MCV 88.7, MCH 28.1, MCHC 31.7 L, RDW Std Deviation 53.8 H, RDW Coeff of Aubrie 16.7 H, Plt Count 255, MPV 11.1, Immature Gran % (Auto) 0.500, Neut % (Auto) 66.8, Lymph % (Auto) 22.9, Brook[place] % (Auto) 6.8, Eos % (Auto) 2.2, Baso % (Auto) 0.8, Absolute Neuts (auto) 4.9, Absolute Lymphs (auto) 1.69, Nucleated RBC % 0 12/28/21 15:15: D-Dimer Quant (PE/DVT) 0.82 H* 12/28/21 15:15: Sodium 141, Potassium 3.4 L, Chloride 105, Carbon Dioxide 28.0, Anion Gap 8, BUN 13, Creatinine 1.01, Estim Creat Clear Calc 31.38, Est GFR (MDRD) Af Amer 68, Est GFR (MDRD) Non-Af 56 L, BUN/Creatinine Ratio 12.9, Glucose 222 H, Calcium 9.0, Total Bilirubin 0.40, Direct Bilirubin 0.10, AST 15, ALT 17, Alkaline Phosphatase 103, Troponin I High Sens 50, Total Protein 6.7, Albumin 3.4, Globulin 3.3, TSH 0.46 12/28/21 15:15: Magnesium 1.3 L 12/28/21 15:15: PT 13.8, INR 1.1, APTT 32.0 12/28/21 20:15: Troponin I High Sens 48 12/28/21 20:18: POC Glucose 162 H 12/29/21 00:15: APTT 57.0 H 12/29/21 00:15: Troponin I High Sens 52 12/29/21 04:45: WBC 8.0, RBC 3.69 L, Hgb 10.5 L, Hct 32.3 L, MCV 87.5, MCH 28.5, MCHC 32.5, RDW Std Deviation 53.1 H, RDW Coeff of Aubrie 16.6 H, Plt Count 237, MPV 11.0, Immature Gran % (Auto) 0.500, Neut % (Auto) 64.7, Lymph % (Auto) 23.9, [place] % (Auto) 7.3, Eos % (Auto) 3.1, Baso % (Auto) 0.5, Absolute Neuts (auto) 5.1, Absolute Lymphs (auto) 1.90, Nucleated RBC % 0 12/29/21 04:45: Sodium 140, Potassium 4.0, Chloride 106, Carbon Dioxide 29.0, Anion Gap 5, BUN 9, Creatinine 0.59, Estim Creat Clear Calc 47.39, Est GFR (MDRD) Af Amer 126, Est GFR (MDRD) Non-Af 104, BUN/Creatinine Ratio 15.3, Glucose 121 H, Calcium 8.7, Magnesium 2.6 12/29/21 06:50: APTT 49.0 H 12/29/21 06:51: POC Glucose 119 H 12/29/21 12:02: POC Glucose 228 H Cardiology Labs/Tests 12/28/21 15:15: WBC 7.4, RBC 3.91 L, Hgb 11.0 L, Hct 34.7 L, MCV 88.7, MCH 28.1, MCHC 31.7 L, Plt Count 255, MPV 11.1, Immature Gran % (Auto) 0.500, Neut % (Auto) 66.8, Lymph % (Auto) 22.9, [place] % (Auto) 6.8, Eos % (Auto) 2.2, Baso % (Auto) 0.8, Absolute Neuts (auto) 4.9, Nucleated RBC % 0 12/28/21 15:15: D-Dimer Quant (PE/DVT) 0.82 H* 12/28/21 15:15: Sodium 141, Potassium 3.4 L, Chloride 105, Carbon Dioxide 28.0, Anion Gap 8, BUN 13, Creatinine 1.01, Est GFR (MDRD) Af Amer 68, Est GFR (MDRD) Non-Af 56 L, BUN/Creatinine Ratio 12.9, Glucose 222 H, Calcium 9.0, Total Bilirubin 0.40, Direct Bilirubin 0.10 12/28/21 15:15: Magnesium 1.3 L 12/28/21 15:15: PT 13.8, INR 1.1, APTT 32.0 12/29/21 00:15: APTT 57.0 H 12/29/21 04:45: WBC 8.0, RBC 3.69 L, Hgb 10.5 L, Hct 32.3 L, MCV 87.5, MCH 28.5, MCHC 32.5, Plt Count 237, MPV 11.0, Immature Gran % (Auto) 0.500, Neut % (Auto) 64.7, Lymph % (Auto) 23.9, [place] % (Auto) 7.3, Eos % (Auto) 3.1, Baso % (Auto) 0.5, Absolute Neuts (auto) 5.1, Nucleated RBC % 0 12/29/21 04:45: Sodium 140, Potassium 4.0, Chloride 106, Carbon Dioxide 29.0, Anion Gap 5, BUN 9, Creatinine 0.59, Est GFR (MDRD) Af Amer 126, Est GFR (MDRD) Non-Af 104, BUN/Creatinine Ratio 15.3, Glucose 121 H, Calcium 8.7, Magnesium 2.6 12/29/21 06:50: APTT 49.0 H Rhythm: EKG: ECHO: Stress Test: Cardiac Cath: PCI: CT Surgery: Holter monitor: EPS: PPM: CXR: Chest CT Scan: Radiography Diagnostic Testing: Radiology Impression Chest X-Ray 12/28/21 15:22 IMPRESSION: No acute cardiopulmonary process. Electronically Signed: Izaiah Brand MD at 15:44 EST , Chest CTA 12/28/21 16:25 IMPRESSION: No evidence of pulmonary embolism. Borderline cardiomegaly. No pneumonia. No pleural or pericardial effusion. Electronically Signed: Izaiah Brand MD at 17:51 EST , Physical Exam Narrative Patient hard of hearing however she is alert and orientated No symptoms reported quality assurance monitor body showed underlying normal sinus. Cardiac examination; S1-S2 regular, no systolic or diastolic murmur, no pericardial rub. Chest examination; clear to auscultation Abdomen; soft Central nervous system exam; no focal neurological deficit Assessment & Plan Assessment/Plan (1) Chronic diastolic heart failure: (2) Coronary artery disease: (3) Hip fracture requiring operative repair: (4) History of pulmonary embolus (PE): (5) Cardiac dysrhythmia: (6) Syncope: PLAN: This 81-year-old patient presented with a recurrent episode of syncope and noted she had significant cardiac dysrhythmia With the tachybradycardia syndrome and long pause range from 6 to 12 seconds She had a history of CAD with prior PCI and stent of diagonal. Patient had also history of paroxysmal A. fib and was on anticoagulation History of full embolism CTA is negative for PE on this admission Electrolyte has been corrected as an admission she had low serum potassium now normal Cardiac care plan recommendations; 1. Patient monitored in ICU/continue to keep bedside transcutaneous pacer and atropine as needed 2. N.p.o. from midnight, with echocardiogram in the morning. Prior echocardiogram LV function preserved 3. Primary fast food crew member is Dr. Billy will evaluate in the morning Patient based on her echocardiogram will be a candidate for a permanent pacemaker/PPM
[2021-12-29] MEDS: 0.9% Normal Saline 1,000 ML 75 ML IV (14:30)
[2021-12-29 15:35] LABS: Partial Thromboplast Time 42.4 Seconds (24.1-36.2)
[2021-12-29 17:46] LABS: Bedside Glucose 116 mg/dL (74-106)
[2021-12-29 21:56] LABS: Bedside Glucose 134 mg/dL (74-106)
[2021-12-29] MEDS: Albuterol 2.5 MG/3 ML VIAL.NEB. INHALATION (21:58)
--- NOTE | 2021-12-29 22:03 | PCM.HOSP.N ---
Hospitalist Note Patient with increased respiratory rate, tachycardia, crackles/wet on exam per discussion with ICU staff, will hold low dose MIVF and administer IV lasix now.
[2021-12-29] MEDS: Furosemide 40 MG/4 ML Vial IV (22:11)
[2021-12-29] MEDS: Atropine Sulfate 1 MG/10 ML Syringe IV ×2 (22:12→23:16)
--- NOTE | 2021-12-29 22:15 | EKG12_ITS ---
Test Reason : TACHY Blood Pressure : / mmHG Vent. Rate : 140 BPM Atrial Rate : 166 BPM P-R Int : 000 ms QRS Dur : 162 ms QT Int : 304 ms P-R-T Axes : 000 -57 117 degrees QTc Int : 464 ms Atrial fibrillation Left axis deviation Left bundle branch block Abnormal ECG No previous ECGs available Confirmed by JIMMY PEARSON, VALERIA ([id number]), writer editor JENIFER WALLACE ([id number]) on 12/30/2021 11:25:47 AM Referred By: Confirmed By:VALERIA MARQUEZ MD
--- NOTE | 2021-12-29 22:22 | CT_ITS ---
HISTORY: change in mental status TECHNIQUE: Multiple axial images were obtained of the brain without intravenous contrast. A radiation dose optimization technique was used for this scan. IV Contrast dosage and agent: None. COMPARISON: 04/12/21 FINDINGS: # of images incl. paperwork: 255 PARANASAL SINUSES AND MASTOID AIR CELLS: Clear. INTRACRANIAL HEMORRHAGE: None. BRAIN PARENCHYMA: No CT evidence of stroke. No intracranial masses. There is preservation of the dodson/white matter interface. Posterior fossa structures are unremarkable. CSF SPACES: Appropriate for age. There is no hydrocephalus. MASS EFFECT: None. CALVARIUM: Stable hyperostosis, no acute bony abnormality. CT/Brain/Head without Contrast IMPRESSION: No acute intracranial findings. Individualized dose optimization techniques were used for this CT. at 0014 Reported and signed by: Jacoby Gallardo MD Electronically Signed: Jacoby Gallardo MD at 0:13 EDT ,
[2021-12-29] MEDS: Metoprolol Tartrate 5 MG/5 ML Vial 2.5 MG IV ×2 (22:32→23:23)
[2021-12-29 22:34] LABS: Absolute Lymphocyte Count 7.93 X10^3/uL (0.83-4.51); Absolute Neutrophil Count 11.4 X10^3/uL (2.0-7.7); Basophil# 0.13 X10^3/uL; Basophil% 0.6 % (0-1); Eosinophil# 0.47 X10^3/uL; Eosinophils% 2.2 % (0-5); Hematocrit 42.4 % (37-47); Hemoglobin 12.5 g/dL (12.0-15.0); Lymphocyte # 7.93 X10^3/ul (0.83-4.51); Lymphocyte % 37.7 % (19-41); Mean Corp Hgb Conc 29.5 g/dL (32-36); Mean Corpuscular Hgb 27.9 pg (27.0-32.0); Mean Corpuscular Volume 94.6 fL (81-99); Mean Platelet Vol. 11.4 fl (6.2-12.0); Monocyte# 1.05 X10^3/uL; NRBC Flagged by Analyzer 0 % (0-5); Neutrophil # 11.35 X10^3/uL (2.7-7.7); Neutrophil % 53.9 % (47-70); POSITIVE DIFFERENTIAL YES; Platelet Count 421 K/mm3 (150-450); RBC Distribution Width CV 17.1 % (11.6-14.6); RBC Distribution Width SD 58.9 fl (35.1-43.9); Red Blood Count 4.48 M/mm3 (4.2-5.4); White Blood Count 21.1 K/mm3 (4.4-11.0)
[2021-12-29 22:37] LABS: Differential Indicated SCAN CRITERIA MET
[2021-12-29 23:00] LABS: AST(SGOT) 39 U/L (15-37); Alanine Aminotransfer ALT/SGPT 26 U/L (13-56); Albumin, Serum 3.5 g/dL (3.2-5.0); Alkaline Phosphatase 121 U/L (45-117); Anion Gap 10 (5-15); BUN 9 mg/dL (7-18); BUN/Creat Ratio 9.5 RATIO (10-20); Calcium,Total 9.1 mg/dL (8.5-10.1); Chloride 104 mmol/L (98-107); Creatinine, Serum 0.95 mg/dL (0.55-1.02); Differential Comment SCANNED; EST Glomerular Filtration Rate 60 mL/min (>60); Est Glom Filt Rate - Afr Amer 73 mL/min (>60); Estimated Creatinine Clearance 49.89 ml/min; Globulin 3.6 g/dL (2.2-4.2); Glucose 246 mg/dL (74-106); Magnesium 2.5 mg/dL (1.6-2.6); Phosphorus 4.9 mg/dL (2.5-4.9); Potassium 4.7 mmol/L (3.5-5.1); Protein, Total 7.1 g/dL (6.4-8.2); Sodium Level 138 mmol/L (136-145)
--- NOTE | 2021-12-29 23:00 | RAD_ITS ---
HISTORY: Dyspnea, hypoxia EXAMINATION/TECHNIQUE: XR Chest 1 View: Portable upright AP chest x-ray COMPARISON: 12/28/21 FINDINGS: LINES/DEVICES: None. LUNGS: Interval development of hazy bilateral airspace opacities without consolidation or pleural effusion. Visualized vascularity noncongested. MEDIASTINUM AND CARDIOVASCULAR STRUCTURES: Stable mild cardiomegaly. Central airways and mediastinal contour are unremarkable. BONES AND SOFT TISSUES: No acute bony abnormalities. RAD/Chest 1 View (Portable) IMPRESSION: Cardiomegaly with bilateral airspace disease suspicious for multifocal pneumonia including atypical or viral pneumonia. Pulmonary edema considered less likely. at 0036 Reported and signed by: Jacoby Gallardo MD Electronically Signed: Jacoby Gallardo MD at 0:35 EDT ,
[2021-12-29] MEDS: Amiodarone 360 MG in Dextrose 5% Viaflo Bag 192.8 ML 33.3 MG CONT INF (23:30)
[2021-12-29 23:36] LABS: Blood Gas Specimen Type VEN; O2 Delivery Device BiPAP; RR 12; SITE L Radial; VBG BASE EXCESS -8 mmol/L (-1.0-3.5); VBG Bicarbonate 20 mmol/L (22-26); VBG PO2 43 mmHg (25-40); VBG SO2 70 % (50-70); VBG TCO2 21 mmol/L (23-33); VBG pCO2 45.7 mmHg (41-51); VBG pH 7.25 (7.32-7.42)
[2021-12-30] VITALS (37 sets, daily range): BP systolic 79–149; BP diastolic 43–109; PULSE 60–75; RESP 12–34; TEMP 35.9–37.9; O2SAT 95–100
[2021-12-30] MEDS: Piperacil/Tazobactam 3.375 GM/50 ML ML IV ×4 (00:28→22:52)
--- NOTE | 2021-12-30 01:18 | NURSING ---
2200: At bedside assessing pt, HR increased from 60s to 140s with agitation, RR 24, 96% on 2L NC. Pt c/o difficulty breathing, lung sounds clear and diminished but pt sounds gurgly with respirations. Cortext to Dr Ruiz re: same, NS held and orders obtained for 40mg Lasix IV, see MAR. Placed on NRB per RT. 2211: Elijah to 40s, 1 Atropine given, HR to 120s. Pt unresponsive, agonal breathing, MANAGER [employer] called, team to bedside. 2220: RT places pt on BiPAP 16/6 100%, sats 100% 223: Heparin gtt hold per Dr Ruiz. 2232: HR 140s appears A-fib on monitor. 2.5mg Lopressor given IV per Dr Ruiz VO. Dr Ruiz call family with update. 2236: Remains A-fib 150s, 150mg Amiodarone given IVP per Dr Ruiz VO. 2240: To CT accompanied by Dr Ruiz, RN x2, RT. Returns to ICU2. 2323: HR 130s, 2.5mg Lopressor IV per Dr Ruiz VO. 2330: Family at bedside, updated on POC, questions answered.
--- NOTE | 2021-12-30 01:39 | NURSING ---
Addendum entered by Gregorio Schmid 12/30/21 01:40: 12/29 @ 2315: Original Note: 12/30 2314: Amiodarone gtt initiated at 0.5mg per Dr Ruiz VO, pt librado to 40s, VO to hold amio gtt. Verbal order to resume at 0.1mg if tachycardic to 120s.
[2021-12-30 01:59] LABS: Troponin-I HS 715 pg/mL (3.0-54.0)
[2021-12-30] MEDS: Aspirin 300 MG Suppository RC (02:32)
[2021-12-30 03:15] LABS: Absolute Lymphocyte Count 0.93 X10^3/uL (0.83-4.51); Basophil# 0.04 X10^3/uL; Basophil% 0.2 % (0-1); Eosinophil# 0.01 X10^3/uL; Eosinophils% 0.1 % (0-5); Hematocrit 34.6 % (37-47); Hemoglobin 10.7 g/dL (12.0-15.0); Lymphocyte # 0.93 X10^3/ul (0.83-4.51); Lymphocyte % 5.7 % (19-41); Mean Corp Hgb Conc 30.9 g/dL (32-36); Mean Corpuscular Hgb 27.6 pg (27.0-32.0); Mean Corpuscular Volume 89.2 fL (81-99); Mean Platelet Vol. 11.1 fl (6.2-12.0); Monocyte# 1.17 X10^3/uL; Monocyte% 7.2 % (0-10); NRBC Flagged by Analyzer 0 % (0-5); Neutrophil # 14.02 X10^3/uL (2.7-7.7); Neutrophil % 86.1 % (47-70); Platelet Count 276 K/mm3 (150-450); RBC Distribution Width SD 55.6 fl (35.1-43.9); Red Blood Count 3.88 M/mm3 (4.2-5.4); White Blood Count 16.3 K/mm3 (4.4-11.0)
[2021-12-30 03:28] LABS: Anion Gap 7 (5-15); BUN 13 mg/dL (7-18); Calcium,Total 8.4 mg/dL (8.5-10.1); Chloride 106 mmol/L (98-107); EST Glomerular Filtration Rate 57 mL/min (>60); Est Glom Filt Rate - Afr Amer 68 mL/min (>60); Estimated Creatinine Clearance 47.39 ml/min; Glucose 229 mg/dL (74-106); Potassium 4.9 mmol/L (3.5-5.1); Sodium Level 138 mmol/L (136-145)
[2021-12-30 03:38] LABS: Troponin-I HS 1800 pg/mL (3.0-54.0)
--- NOTE | 2021-12-30 05:10 | RAD_ITS ---
STUDY: X-RAY CHEST REASON FOR EXAM: Female, 81 years old. Dyspnea, cough TECHNIQUE: Single AP portable view of the chest. COMPARISON: December 29, 2021 chest x-ray FINDINGS: Since prior study there is lesser groundglass opacity. There is no demonstrated pleural abnormality. There is mild cardiac enlargement. There is visualized coronary stent. There is visualized vertebral plasty at the level of L1. Normal mediastinum and twila. Normal visualized pulmonary arteries. Normal visualized aortic arch and descending thoracic aorta. Normal visualized thoracic spine. Normal visualized ribs, clavicles, and shoulders. There is no demonstrated abnormality of the visualized soft tissue structures of the upper abdomen. RAD/Chest 1 View (Portable) IMPRESSION: Mild cardiac enlargement. Coronary stent. Improved aeration of the lungs since prior study. Electronically Signed: Lauren Linder MD at 6:02 EDT ,
--- NOTE | 2021-12-30 06:14 | NURSING ---
0420: Cortext to Dr Swann: CT head neg, back in NSR since C[employer]IST earlier; trending troponins, 700 then 1800; gave 300mg ASA; do you want me to still hold heparin gtt at 0600? 0615: No response, heparin gtt held per current orders; see MAR.
[2021-12-30] MEDS: Insulin Lispro 100 UNIT/ML INSULN.PEN SC ×2 (06:38→17:53)
[2021-12-30 06:46] LABS: Bedside Glucose 175 mg/dL (74-106)
[2021-12-30 07:19] LABS: Troponin-I HS 4184 pg/mL (3.0-54.0)
--- NOTE | 2021-12-30 08:43 | PCM.PN.HOSP ---
Subjective Subjective Follow-up on syncope/arrhythmia: Patient was seen and examined. Overnight issues noted with episode of unresponsiveness, tachycardia and bradycardia. Found to be in A. fib with RVR. Started on amiodarone bolus and drip. Patient denies any chest pain or dizziness. She is going for pacemaker placement. She has been off heparin drip. Objective Data Objective Data Vital Signs: Vital Signs Temp Pulse Resp BP Pulse Ox 99.7 F H 67 20 H 122/46 H 100 12/30/21 08:00 12/30/21 08:00 12/30/21 08:00 12/30/21 08:00 12/30/21 08:00 Oxygen Flow Rate (L/min) 2 Oxygen Delivery Method Nasal Cannula Weight: 68.04 kg Body Mass Index (BMI) 30.2 Intake & Output: Intake and Output for Last 24 Hours 12/28/21 12/29/21 12/30/21 22:59 23:59 23:59 Intake Total 225.26 / 225.26 Output Total 250 / 250 Balance -24.74 / -24.74 Lab / Micro Data Result Diagrams: 12/30/21 03:00 12/30/21 03:00 Labs: Laboratory Results - last 24 hr 12/29/21 12:02: POC Glucose 228 H 12/29/21 15:15: APTT 42.4 H 12/29/21 17:34: POC Glucose 116 H 12/29/21 21:48: APTT 53.0 H 12/29/21 21:49: POC Glucose 134 H 12/29/21 22:30: WBC 21.1 H, RBC 4.48, Hgb 12.5, Hct 42.4, MCV 94.6 D, MCH 27.9, MCHC 29.5 L D, RDW Std Deviation 58.9 H, RDW Coeff of Aubrie 17.1 H, Plt Count 421, MPV 11.4, Immature Gran % (Auto) 0.600, Neut % (Auto) 53.9, Lymph % (Auto) 37.7, [place] % (Auto) 5.0, Eos % (Auto) 2.2, Baso % (Auto) 0.6, Absolute Neuts (auto) 11.4 H, Absolute Lymphs (auto) 7.93 H, Nucleated RBC % 0, Differential Comment SCANNED 12/29/21 22:30: Sodium 138, Potassium 4.7, Chloride 104, Carbon Dioxide 24.0, Anion Gap 10, BUN 9, Creatinine 0.95, Estim Creat Clear Calc 49.89, Est GFR (MDRD) Af Amer 73, Est GFR (MDRD) Non-Af 60, BUN/Creatinine Ratio 9.5 L, Glucose 246 H, Calcium 9.1, Phosphorus 4.9, Magnesium 2.5, Total Bilirubin 0.40, AST 39 H, ALT 26, Alkaline Phosphatase 121 H, Total Protein 7.1, Albumin 3.5, Globulin 3.6, Albumin/Globulin Ratio 1.0 12/30/21 01:00: Troponin I High Sens 715 H* 12/30/21 03:00: WBC 16.3 H, RBC 3.88 L, Hgb 10.7 L, Hct 34.6 L, MCV 89.2 D, MCH 27.6, MCHC 30.9 L, RDW Std Deviation 55.6 H, RDW Coeff of [place]rie 17.0 H, Plt Count 276, MPV 11.1, Immature Gran % (Auto) 0.700, Neut % (Auto) 86.1 H, Lymph % (Auto) 5.7 L, [place] % (Auto) 7.2, Eos % (Auto) 0.1, Baso % (Auto) 0.2, Absolute Neuts (auto) 14.0 H, Absolute Lymphs (auto) 0.93, Nucleated RBC % 0 12/30/21 03:00: Sodium 138, Potassium 4.9, Chloride 106, Carbon Dioxide 25.0, Anion Gap 7, BUN 13, Creatinine 1.00, Estim Creat Clear Calc 47.39, Est GFR (MDRD) Af Amer 68, Est GFR (MDRD) Non-Af 57 L, BUN/Creatinine Ratio 13.0, Glucose 229 H, Calcium 8.4 L 12/30/21 03:00: Troponin I High Sens 1800 H* 12/30/21 06:36: POC Glucose 175 H 12/30/21 06:40: Troponin I High Sens 4184 H* ABG Data ABG results: ABG 12/29/21 22:27 Specimen Type TAMEKA Sample Site L Radial VBG pH 7.25 L VBG pO2 43 H VBG HCO3 20 L VBG Total CO2 21 L VBG O2 Sat (Calc) 70 VBG Base Excess -8 L POC Mix VBG pCO2 Pt Tmp 45.7 Respiration Rate 12 O2 Delivery Device BiPAP Radiography Diagnostic Testing: Radiology Impression Brain CT 12/29/21 22:22 IMPRESSION: No acute intracranial findings. Individualized dose optimization techniques were used for this CT. at 0014 Reported and signed by: Jacoby Gallardo MD Electronically Signed: Jacoby Gallardo MD at 0:13 EDT , Chest X-Ray 12/29/21 23:00 IMPRESSION: Cardiomegaly with bilateral airspace disease suspicious for multifocal pneumonia including atypical or viral pneumonia. Pulmonary edema considered less likely. at 0036 Reported and signed by: Jacoby Gallardo MD Electronically Signed: Jacoby Gallardo MD at 0:35 EDT , Chest X-Ray 12/30/21 05:10 IMPRESSION: Mild cardiac enlargement. Coronary stent. Improved aeration of the lungs since prior study. Electronically Signed: Lauren Linder MD at 6:02 EDT , Physical Exam Narrative Physical exam: General: Alert, Oriented x3, Cooperative, No apparent distress, on 2 L of oxygen HEENT: Atraumatic Oral: Moist Mucosa Neck: Supple Lungs: Diminished to auscultation Cardiovascular: HS I+II, regular, no murmurs Abdomen: Bowel Sounds Present, Soft, Non Tender Extremities: No edema Assessment & Plan Assessment/Plan (1) Syncope: QUALIFIERS: Syncope type: unspecified Qualified Code(s): R55 - Syncope and collapse (2) Cardiac dysrhythmia: QUALIFIERS: Arrhythmia type: unspecified cardiac arrhythmia Qualified Code(s): I49.9 - Cardiac arrhythmia, unspecified PLAN: 1. Syncope secondary to cardiac dysrhythmia Patient with pauses and junctional escape rhythm on admission, subsequently been in A. fib with RVR, new-onset with bradycardia Off Heparin drip CTA chest is negative for PE, 2D-ECHO pending Cardiology following; pacemaker placement pending 2. Acute hypoxic respiratory failure, patient hypoxic overnight, requiring use of BiPAP Aspiration pneumonitis/pneumonia suspected; patient running low-grade temperature Chest x-ray on 12/30 negative for acute cardiopulmonary infiltrate Patient currently on 2 L of oxygen Started on IV Zosyn; will continue same Encourage use of incentive spirometer 3. Hypokalemia, replaced 4. Type II DM, blood sugars are fairly controlled, off long-acting insulin for now on account of n.p.o. status and planned procedure Continue on the current insulin sliding scale 5. Hypertension, patient with episodes of hypotension requiring use of Levophed Etiology of hypotension likely secondary to medication side effect versus cardiac dysrhythmia Patient currently ofF Levophed drip 6. Rest of her chronic medical conditions including dyslipidemia, CAD status post PCI, PAD, heart failure with preserved EF, chronic iron deficiency anemia, depression all remained stable 7. DVT PPx - Heparin on hold for now. Charges/Coding Visit Charges Inpatient E&M: 24781 Subs Hosp L2
[2021-12-30] MEDS: Menthol/Lanolin/Calamine/Znox 113 GM Tube 1 APPLIC TOPICAL ×2 (10:57→22:30)
[2021-12-30] MEDS: 0.9% Saline Lock 10 ML Syringe IV (10:58)
[2021-12-30] MEDS: Furosemide 40 MG/4 ML Vial IV (10:58)
[2021-12-30 12:06] LABS: Bedside Glucose 142 mg/dL (74-106)
--- NOTE | 2021-12-30 13:49 | CASEMGMT ---
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 Caleb ROPER CM Original Note: This RN CM to room to complete CM assessment and they are wheeling pt out of room to go down for pacer placement. CM to attempt again later. Caleb ROPER CM
--- NOTE | 2021-12-30 15:57 | PCM.PN.CARD ---
Subjective Subjective The patient was seen and evaluated. Appears to be stable. Underwent permanent pacemaker implantation today. Objective Data Vital Signs: Vital Signs Temp Pulse Resp BP Pulse Ox 99.4 F H 64 21 H 126/47 H 100 12/30/21 13:00 12/30/21 13:00 12/30/21 13:00 12/30/21 13:00 12/30/21 13:00 Oxygen Flow Rate (L/min) 2 Oxygen Delivery Method Nasal Cannula Weight: 151 lb 14.376 oz Body Mass Index (BMI) 30.2 Intake & Output: Intake and Output for Last 24 Hours 12/28/21 12/29/21 12/30/21 22:59 23:59 23:59 Intake Total 385.26 / 385.26 Output Total 950 / 950 Balance -564.74 / -564.74 Lab / Micro Data Result Diagrams: 12/30/21 03:00 12/30/21 03:00 Labs: Laboratory Results - last 24 hr 12/29/21 17:34: POC Glucose 116 H 12/29/21 21:48: APTT 53.0 H 12/29/21 21:49: POC Glucose 134 H 12/29/21 22:30: WBC 21.1 H, RBC 4.48, Hgb 12.5, Hct 42.4, MCV 94.6 D, MCH 27.9, MCHC 29.5 L D, RDW Std Deviation 58.9 H, RDW Coeff of Aubrie 17.1 H, Plt Count 421, MPV 11.4, Immature Gran % (Auto) 0.600, Neut % (Auto) 53.9, Lymph % (Auto) 37.7, [place] % (Auto) 5.0, Eos % (Auto) 2.2, Baso % (Auto) 0.6, Absolute Neuts (auto) 11.4 H, Absolute Lymphs (auto) 7.93 H, Nucleated RBC % 0, Differential Comment SCANNED 12/29/21 22:30: Sodium 138, Potassium 4.7, Chloride 104, Carbon Dioxide 24.0, Anion Gap 10, BUN 9, Creatinine 0.95, Estim Creat Clear Calc 49.89, Est GFR (MDRD) Af Amer 73, Est GFR (MDRD) Non-Af 60, BUN/Creatinine Ratio 9.5 L, Glucose 246 H, Calcium 9.1, Phosphorus 4.9, Magnesium 2.5, Total Bilirubin 0.40, AST 39 H, ALT 26, Alkaline Phosphatase 121 H, Total Protein 7.1, Albumin 3.5, Globulin 3.6, Albumin/Globulin Ratio 1.0 12/30/21 01:00: Troponin I High Sens 715 H* 12/30/21 03:00: WBC 16.3 H, RBC 3.88 L, Hgb 10.7 L, Hct 34.6 L, MCV 89.2 D, MCH 27.6, MCHC 30.9 L, RDW Std Deviation 55.6 H, RDW Coeff of [place]rie 17.0 H, Plt Count 276, MPV 11.1, Immature Gran % (Auto) 0.700, Neut % (Auto) 86.1 H, Lymph % (Auto) 5.7 L, [place] % (Auto) 7.2, Eos % (Auto) 0.1, Baso % (Auto) 0.2, Absolute Neuts (auto) 14.0 H, Absolute Lymphs (auto) 0.93, Nucleated RBC % 0 12/30/21 03:00: Sodium 138, Potassium 4.9, Chloride 106, Carbon Dioxide 25.0, Anion Gap 7, BUN 13, Creatinine 1.00, Estim Creat Clear Calc 47.39, Est GFR (MDRD) Af Amer 68, Est GFR (MDRD) Non-Af 57 L, BUN/Creatinine Ratio 13.0, Glucose 229 H, Calcium 8.4 L 12/30/21 03:00: Troponin I High Sens 1800 H* 12/30/21 06:36: POC Glucose 175 H 12/30/21 06:40: Troponin I High Sens 4184 H* 12/30/21 12:00: POC Glucose 142 H ABG Data ABG results: ABG 12/29/21 22:27 Specimen Type TAMEKA Sample Site L Radial VBG pH 7.25 L VBG pO2 43 H VBG HCO3 20 L VBG Total CO2 21 L VBG O2 Sat (Calc) 70 VBG Base Excess -8 L POC Mix VBG pCO2 Pt Tmp 45.7 Respiration Rate 12 O2 Delivery Device BiPAP Cardiology Labs/Tests 12/29/21 21:48: APTT 53.0 H 12/29/21 22:27: VBG pH 7.25 L, VBG pO2 43 H, VBG HCO3 20 L, VBG O2 Sat (Calc) 70, VBG Base Excess -8 L 12/29/21 22:30: WBC 21.1 H, RBC 4.48, Hgb 12.5, Hct 42.4, MCV 94.6 D, MCH 27.9, MCHC 29.5 L D, Plt Count 421, MPV 11.4, Immature Gran % (Auto) 0.600, Neut % (Auto) 53.9, Lymph % (Auto) 37.7, [place] % (Auto) 5.0, Eos % (Auto) 2.2, Baso % (Auto) 0.6, Absolute Neuts (auto) 11.4 H, Nucleated RBC % 0 12/29/21 22:30: Sodium 138, Potassium 4.7, Chloride 104, Carbon Dioxide 24.0, Anion Gap 10, BUN 9, Creatinine 0.95, Est GFR (MDRD) Af Amer 73, Est GFR (MDRD) Non-Af 60, BUN/Creatinine Ratio 9.5 L, Glucose 246 H, Calcium 9.1, Phosphorus 4.9, Magnesium 2.5, Total Bilirubin 0.40 12/30/21 03:00: WBC 16.3 H, RBC 3.88 L, Hgb 10.7 L, Hct 34.6 L, MCV 89.2 D, MCH 27.6, MCHC 30.9 L, Plt Count 276, MPV 11.1, Immature Gran % (Auto) 0.700, Neut % (Auto) 86.1 H, Lymph % (Auto) 5.7 L, [place] % (Auto) 7.2, Eos % (Auto) 0.1, Baso % (Auto) 0.2, Absolute Neuts (auto) 14.0 H, Nucleated RBC % 0 12/30/21 03:00: Sodium 138, Potassium 4.9, Chloride 106, Carbon Dioxide 25.0, Anion Gap 7, BUN 13, Creatinine 1.00, Est GFR (MDRD) Af Amer 68, Est GFR (MDRD) Non-Af 57 L, BUN/Creatinine Ratio 13.0, Glucose 229 H, Calcium 8.4 L Rhythm: EKG: ECHO: Stress Test: Cardiac Cath: PCI: CT Surgery: Holter monitor: EPS: PPM: CXR: Chest CT Scan: Radiography Diagnostic Testing: Radiology Impression Brain CT 12/29/21 22:22 IMPRESSION: No acute intracranial findings. Individualized dose optimization techniques were used for this CT. at 0014 Reported and signed by: Jacoby Gallardo MD Electronically Signed: Jacoby Gallardo MD at 0:13 EDT , Chest X-Ray 12/29/21 23:00 IMPRESSION: Cardiomegaly with bilateral airspace disease suspicious for multifocal pneumonia including atypical or viral pneumonia. Pulmonary edema considered less likely. at 0036 Reported and signed by: Jacoby Gallardo MD Electronically Signed: Jacoby Gallardo MD at 0:35 EDT , Chest X-Ray 12/30/21 05:10 IMPRESSION: Mild cardiac enlargement. Coronary stent. Improved aeration of the lungs since prior study. Electronically Signed: Lauren Linder MD at 6:02 EDT , Physical Exam Const alert, oriented x3 and no apparent distress General Appearance: cooperative HEENT hearing grossly normal bilaterally Head and Scalp: atraumatic Eyes EOMs intact bilaterally Neck General: normal visual inspection Chest inspection of chest normal and palpation of chest normal Resp normal respiratory effort Auscultation: clear to auscultation bilaterally Cardio regular rate, regular rhythm, S1 normal heart sound and S2 normal heart sound Jugular Venous Distention: JVD GI normal to inspection, nondistended, normoactive bowel sounds Extremity normal capillary refill and no pedal edema Peripheral Pulses: Yes pulses 2+ throughout and femoral pulses present Skin no rashes or lesions noted Neuro oriented x3 and CN's II-XII intact bilaterally Psych Appearance: grossly normal and appropriate Assessment & Plan Assessment/Plan (1) Chronic diastolic heart failure: PLAN: Patient appears to be stable. My recommendation to be to continue daily Lasix I would not recommend any changes at this time. (2) Coronary artery disease: PLAN: Patient has mild coronary artery disease from previous coronary evaluation. She had a diagonal vessel previously stented. She did have troponin elevation during this admission. However she did have a syncopal episode with a significant sinus pause. At some point this would need to be reevaluated. 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 My recommendation at this time was for her to undergo permanent pacemaker implantation. She underwent this today with no apparent complications. She will be reevaluated in the morning. (4) Syncope: QUALIFIERS: Syncope type: unspecified Qualified Code(s): R55 - Syncope and collapse PLAN: She presented with syncope which was likely secondary to her extended pauses. My recommendation at this time was for her to have undergone to permanent pacemaker implantation. She will have this interrogated and will continue to follow with her. Thank you for allowing me to participate in the care of your patient. Please don't hesitate to call if any issues arise.
--- NOTE | 2021-12-30 16:04 | CL.IE_ITS ---
Patient: LARRY MALDONADO Study Date: 12/30/2021 Performing: Jovanny Lu MD : 1940 Age: 81 Gender: female PROCEDURES PERFORMED LP04-(15099)INITIAL PACER INSERT+DUAL LEADS INDICATIONS Syncope PROCEDURE DETAILS The patient was brought to the Catheterization Lab in the postabsorptive nonsedated state. Infor med consent was obtained prior to the procedure. Local anesthetic was given subcutaneously to the le ft subclavian region with Lidocaine 2%. Access was achieved and a guidewire was advanced into the lef t subclavian vein. Incision was made to the left subclavicular area. PPM ventricular lead was inserte d / positioned to right ventricular septal wall. PPM ventricular lead testing performed. PPM ventricu lar lead testing performed. PPM atrial lead was inserted / positioned to the right atrial appendage. PPM atrial lead testing performed. The Atrial lead sutured in place with 2-0 Silk. The Ventricular PM lead sutured in place with 2-0 Silk. PPM generator was attached to the lead(s) and inserted into the pocket. PPM generator was then interrogated by the contract programmer. Device pocket was irrigated with anti biotic. Subcutaneous closure was completed with 3-0 Vicryl. Skin closure was completed with 4-0 Vicryl. Steri-strips applied to left subclavicular incision. Instrument, sponge, and needle counts were noted to be normal. The patient tolerated the procedure well. Estimated Blood Loss: 20 ml's IMPLANTED / EX-PLANTED DEVICES IMPLANTED DEVICE(S): PPM Ventricular lead - Supervisor Paste Plant: [employer], Model # 7841 , Serial # [id number] PPM Generator - Supervisor P[employer] Plant: [employer], Model # L111 , Serial # [id number] DEVICE PARAMETERS DEVICE PARAMETERS: Mode - DDD lower rate - 60 upper rate - 130 rate response off Mode- DDD Lower rate- 60 Upper rate- 130 CONCLUSIONS / RECOMMENDATIONS Device Conclusions: Successful implantation of a dual chamber pacemaker Device Recommendations: Follow up with Primary Care Physician PROCEDURE MEDICATIONS Fentanyl 50 mcg IV Versed 1 mg IV Versed 1 mg IV Fentanyl 25 mcg IV Versed 1 mg IV Oxygen: 2 L/min via nasal cannula Antibiotic given in appropriate timeframe. Ancef 2 Gm IV @ 12/30/2021 14:04:09 Signed By Jovanny Lu MD On 12/30/2021 16:03:45 Jovanny Lu MD
[2021-12-30 17:50] LABS: Bedside Glucose 150 mg/dL (74-106)
[2021-12-30 23:11] LABS: Bedside Glucose 121 mg/dL (74-106)
[2021-12-31] VITALS (9 sets, daily range): BP systolic 125–166; BP diastolic 55–66; PULSE 61–80; RESP 16–18; TEMP 36.4–37.1; O2SAT 93–100
[2021-12-31] MEDS: Loperamide 2 MG Capsule PO ×2 (02:20→10:40)
--- NOTE | 2021-12-31 05:55 | RAD_ITS ---
STUDY: X-RAY CHEST REASON FOR EXAM: Female, 81 years old. POST PERMANENT ICD/PACEMAKER TECHNIQUE: Frontal views of the chest. Upright with inspiratory and expiratory phase. COMPARISON: 12/30/2021. FINDINGS: There is a multilead permanent pacemaker and left subclavian approach with catheter tips over the right atrium and right ventricle. There is no kink or disks ruptured off leads. There is no demonstrated pneumothorax. The lungs are clear and expanded. There is no demonstrated pleural abnormality. There is mild cardiac enlargement. Coronary artery calcification/stent placement. Normal mediastinum and twila. Normal visualized pulmonary arteries. There is atherosclerotic calcification of the aortic arch with tortuosity. Degenerative changes of shoulder joints. There is demineralization of osseous structures. The spine and upper abdominal soft tissues are obscured. RAD/Chest 3 View IMPRESSION: There is a multilead permanent pacemaker without kinking or disruption of leads. There is no demonstrated pneumothorax. Cardiomegaly, arteriosclerosis and coronary artery disease. Electronically Signed: Aida Mera MD at 6:57 EDT Reading Location ID and State: , Service support ,
[2021-12-31] MEDS: Piperacil/Tazobactam 3.375 GM/50 ML ML IV (06:22)
[2021-12-31 06:26] LABS: Absolute Lymphocyte Count 1.53 X10^3/uL (0.83-4.51); Absolute Neutrophil Count 5.7 X10^3/uL (2.0-7.7); Basophil# 0.04 X10^3/uL; Basophil% 0.5 % (0-1); Eosinophil# 0.28 X10^3/uL; Eosinophils% 3.4 % (0-5); Hemoglobin 10.2 g/dL (12.0-15.0); Lymphocyte # 1.53 X10^3/ul (0.83-4.51); Lymphocyte % 18.7 % (19-41); Mean Corp Hgb Conc 30.9 g/dL (32-36); Mean Corpuscular Hgb 27.5 pg (27.0-32.0); Mean Corpuscular Volume 88.9 fL (81-99); Mean Platelet Vol. 11.5 fl (6.2-12.0); Monocyte# 0.59 X10^3/uL; Monocyte% 7.2 % (0-10); NRBC Flagged by Analyzer 0 % (0-5); Neutrophil # 5.68 X10^3/uL (2.7-7.7); Neutrophil % 69.6 % (47-70); Platelet Count 216 K/mm3 (150-450); RBC Distribution Width CV 17.2 % (11.6-14.6); RBC Distribution Width SD 55.6 fl (35.1-43.9); Red Blood Count 3.71 M/mm3 (4.2-5.4); White Blood Count 8.2 K/mm3 (4.4-11.0)
[2021-12-31] MEDS: Insulin Lispro 100 UNIT/ML INSULN.PEN SC (06:59)
[2021-12-31 07:02] LABS: ALB/GLOB Ratio 0.9 RATIO (0.9-2.4); AST(SGOT) 58 U/L (15-37); Alanine Aminotransfer ALT/SGPT 44 U/L (13-56); Albumin, Serum 3.2 g/dL (3.2-5.0); Alkaline Phosphatase 91 U/L (45-117); Anion Gap 6 (5-15); BUN 14 mg/dL (7-18); Calcium,Total 9.2 mg/dL (8.5-10.1); Chloride 105 mmol/L (98-107); Creatinine, Serum 0.88 mg/dL (0.55-1.02); EST Glomerular Filtration Rate 66 mL/min (>60); Est Glom Filt Rate - Afr Amer 80 mL/min (>60); Estimated Creatinine Clearance 53.11 ml/min; Globulin 3.4 g/dL (2.2-4.2); Glucose 117 mg/dL (74-106); Potassium 3.6 mmol/L (3.5-5.1); Protein, Total 6.6 g/dL (6.4-8.2); Sodium Level 139 mmol/L (136-145)
[2021-12-31] MEDS: Sertraline 100 MG Tablet PO (07:51)
[2021-12-31] MEDS: Isosorbide Mononitrate 60 MG Tablet PO (07:51)
[2021-12-31] MEDS: Lisinopril 40 MG Tablet PO (07:51)
[2021-12-31] MEDS: Atenolol 50 MG Tablet PO (07:51)
[2021-12-31] MEDS: amLODIPine 5 MG Tablet PO (07:51)
[2021-12-31] MEDS: Furosemide 40 MG Tablet PO (07:52)
[2021-12-31] MEDS: Menthol/Lanolin/Calamine/Znox 113 GM Tube 1 APPLIC TOPICAL (07:52)
[2021-12-31 08:02] LABS: Bedside Glucose 157 mg/dL (74-106)
--- NOTE | 2021-12-31 08:44 | PN.CARD_ITS ---
Subjective Subjective Patient seen and evaluated. Objective Data Vital Signs: Vital Signs Temp Pulse Resp BP Pulse Ox 98.7 F 67 16 166/66 H 98 12/31/21 07:43 12/31/21 08:00 12/31/21 07:43 12/31/21 07:43 12/31/21 07:43 Oxygen Flow Rate (L/min) 2 Oxygen Delivery Method Room Air Weight: 147 lb 14.883 oz Body Mass Index (BMI) 30.2 Intake & Output: Intake and Output for Last 24 Hours 12/29/21 12/30/21 12/31/21 23:59 23:59 23:59 Intake Total 545.26 / 545.26 50 / 50 Output Total 2700 / 2700 1000 / 1000 Balance -2154.74 / -2154.74 -950 / -950 Lab / Micro Data Result Diagrams: 12/31/21 05:10 12/31/21 05:10 Labs: Laboratory Results - last 24 hr 12/30/21 12:00: POC Glucose 142 H 12/30/21 17:46: POC Glucose 150 H 12/30/21 22:14: POC Glucose 121 H 12/31/21 05:10: WBC 8.2, RBC 3.71 L, Hgb 10.2 L, Hct 33.0 L, MCV 88.9, MCH 27.5, MCHC 30.9 L, RDW Std Deviation 55.6 H, RDW Coeff of Aubrie 17.2 H, Plt Count 216, MPV 11.5, Immature Gran % (Auto) 0.600, Neut % (Auto) 69.6, Lymph % (Auto) 18.7 L, [place] % (Auto) 7.2, Eos % (Auto) 3.4, Baso % (Auto) 0.5, Absolute Neuts (auto) 5.7, Absolute Lymphs (auto) 1.53, Nucleated RBC % 0 12/31/21 05:10: Sodium 139, Potassium 3.6, Chloride 105, Carbon Dioxide 28.0, Anion Gap 6, BUN 14, Creatinine 0.88, Estim Creat Clear Calc 53.11, Est GFR (MDRD) Af Amer 80, Est GFR (MDRD) Non-Af 66, BUN/Creatinine Ratio 16.0, Glucose 117 H, Calcium 9.2, Total Bilirubin 0.90, AST 58 H, ALT 44, Alkaline Phosphatase 91, Total Protein 6.6, Albumin 3.2, Globulin 3.4, Albumin/Globulin Ratio 0.9 12/31/21 06:57: POC Glucose 157 H Cardiology Labs/Tests 12/31/21 05:10: WBC 8.2, RBC 3.71 L, Hgb 10.2 L, Hct 33.0 L, MCV 88.9, MCH 27.5, MCHC 30.9 L, Plt Count 216, MPV 11.5, Immature Gran % (Auto) 0.600, Neut % (Auto) 69.6, Lymph % (Auto) 18.7 L, [place] % (Auto) 7.2, Eos % (Auto) 3.4, Baso % (Auto) 0.5, Absolute Neuts (auto) 5.7, Nucleated RBC % 0 12/31/21 05:10: Sodium 139, Potassium 3.6, Chloride 105, Carbon Dioxide 28.0, Anion Gap 6, BUN 14, Creatinine 0.88, Est GFR (MDRD) Af Amer 80, Est GFR (MDRD) Non-Af 66, BUN/Creatinine Ratio 16.0, Glucose 117 H, Calcium 9.2, Total Bilirubin 0.90 Rhythm: EKG: ECHO: Stress Test: Cardiac Cath: PCI: CT Surgery: Holter monitor: EPS: PPM: CXR: Chest CT Scan: Radiography Diagnostic Testing: Radiology Impression Chest X-Ray 12/31/21 05:55 IMPRESSION: There is a multilead permanent pacemaker without kinking or disruption of leads. There is no demonstrated pneumothorax. Cardiomegaly, arteriosclerosis and coronary artery disease. Electronically Signed: Aida Mera MD at 6:57 EDT Reading Location ID and State: , Service support , Physical Exam Const alert, oriented x3 and no apparent distress General Appearance: cooperative HEENT hearing grossly normal bilaterally Head and Scalp: atraumatic Eyes EOMs intact bilaterally Neck General: normal visual inspection Chest inspection of chest normal and palpation of chest normal Resp normal respiratory effort Auscultation: clear to auscultation bilaterally Cardio regular rate, regular rhythm, S1 normal heart sound and S2 normal heart sound Jugular Venous Distention: JVD GI normal to inspection, nondistended, normoactive bowel sounds Extremity normal capillary refill and no pedal edema Peripheral Pulses: Yes pulses 2+ throughout and femoral pulses present Skin no rashes or lesions noted Neuro oriented x3 and CN's II-XII intact bilaterally Psych Appearance: grossly normal and appropriate Assessment & Plan Assessment/Plan (1) Chronic diastolic heart failure: PLAN: Patient appears to be stable. My recommendation to be to continue daily Lasix I would not recommend any changes at this time. (2) Coronary artery disease: PLAN: Patient has mild coronary artery disease from previous coronary evaluation. She had a diagonal vessel previously stented. She did have troponin elevation during this admission. However she did have a syncopal episode with a significant sinus pause. At some point this would need to be reevaluated. 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 She did undergo permanent pacemaker implantation uneventfully. Chest x-ray demonstrates no abnormalities. Pacemaker check appears to be within normal limits. (4) Syncope: QUALIFIERS: Syncope type: unspecified Qualified Code(s): R55 - Syncope and collapse PLAN: She presented with syncope which was likely secondary to her extended pauses. I think this was secondary to her extended pauses and she has had a permanent pacemaker implantation. She will be discharged for outpatient follow-up. Thank you for allowing me to participate in the care of your patient. Please don't hesitate to call if any issues arise.
--- NOTE | 2021-12-31 08:51 | PCM.DC ---
Discharge Instructions Diet Discharge Diet: No restrictions (as you feel able. No excessive stretching. No lifting your arm over your head (keep elbow below shoulder level) until seen for your pacemaker check. Do not lift your elbow away from your side until you are seen for your first visit. Keep the arm sling on if it helps remind you not to lift your arm.) Activity May shower in (days): 3 Dressing / Incision Call your doctor if your incision/area has: Continuous Slow Oozing, Sudden Increased Bleeding, Increased Pain/ Swelling, Increased Redness, Foul Smelling Discharge and Swelling at the incision site Call your doctor if you observe: Fever of 101 or Higher, Shortness of breath, Dizziness, Fainting spells, Swelling in the ankles, Chest pain, Prolonged hiccupping and Increased palpitations (irregular heartbeat) Additional Dressing/Incision Instructions:: When dressing is removed, wash and dry incision. Keep covered with a light bandage if it is rubbing against your clothing. Do not cover the incision with an airtight bandage. Change the bandage daily. Do not remove steri strips. The strips will fall off on their own. Follow Up Care Please Follow Up With: Jovanny Lu MD When: .Call [phone] for follow up. Follow-up in pacemaker clinic on January 09 at 1 PM Test Results: Test results from this visit will be discussed in further detail at your follow-up appointment, if applicable. Discharge Plan Admission Admit Date/Time: 12/28/21 16:31 Attending Provider: Madhavi Lee Primary Care Provider: Edmund Wang Consulting Providers: Ed Swann Discharge Orders/Prescriptions Prescriptions: No Action sertraline 100 MG tablet 100 mg PO DAILY RF: 0 isosorbide mononitrate 60 mg tablet extended release 24 hr 60 mg PO DAILY RF: 0 furosemide 40 mg tablet 40 mg PO DAILY RF: 0 lisinopril 20 mg tablet 40 mg PO DAILY RF: 0 metformin 500 mg tablet 500 mg PO .daily at supper RF: 0 atenolol 25 mg tablet 50 mg PO DAILY RF: 0 (DME) blood sugar diagnostic Strip See Rx Instructions .ROUTE .MEDSUPPLY RF: 0 amlodipine 5 mg tablet 5 mg PO DAILY RF: 0 (DME) blood-glucose meter Kit See Rx Instructions .ROUTE .MEDSUPPLY RF: 0 cholecalciferol (vitamin D3) 1,250 mcg (50,000 unit) capsule 1,250 mcg PO QWEEK RF: 0 Toujeo SoloStar U-300 Insulin 300 unit/mL (1.5 mL) Insulin Pen 15 unit SUBCUT DAILY RF: 0 nitroglycerin 0.4 mg tablet, sublingual 0.4 mg sublingual Q5M PRN (Reason: Cardiac/Chest Pain) Qty: 25 RF: 3 Referrals / Follow Up: Edmund Wang MD [Primary Care Provider] - Disposition Disposition (needs filled in before D/C Order can be placed): Home, Self Care
--- NOTE | 2021-12-31 09:19 | PCM.DC ---
Discharge Instructions Diet Discharge Diet: No restrictions (as you feel able. No excessive stretching. No lifting your arm over your head (keep elbow below shoulder level) until seen for your pacemaker check. Do not lift your elbow away from your side until you are seen for your first visit. Keep the arm sling on if it helps remind you not to lift your arm.) Activity May shower in (days): 3 Dressing / Incision Call your doctor if your incision/area has: Continuous Slow Oozing, Sudden Increased Bleeding, Increased Pain/ Swelling, Increased Redness, Foul Smelling Discharge and Swelling at the incision site Call your doctor if you observe: Fever of 101 or Higher, Shortness of breath, Dizziness, Fainting spells, Swelling in the ankles, Chest pain, Prolonged hiccupping and Increased palpitations (irregular heartbeat) Additional Dressing/Incision Instructions:: When dressing is removed, wash and dry incision. Keep covered with a light bandage if it is rubbing against your clothing. Do not cover the incision with an airtight bandage. Change the bandage daily. Do not remove steri strips. The strips will fall off on their own. Follow Up Care Please Follow Up With: Jovanny Lu MD Test Results: Test results from this visit will be discussed in further detail at your follow-up appointment, if applicable. Discharge Plan Admission Admit Date/Time: 12/28/21 16:31 Primary Reason for Your Visit: Syncope secondary to arrhythmia Attending Provider: Madhavi Lee Primary Care Provider: Edmund Wang Consulting Providers: Ed Swann Instructions Additional Instructions / Restrictions: Take note of your post-pacemaker instructions. Follow-up with cardiology within 2 weeks Discharge Orders/Prescriptions Prescriptions: Continued sertraline 100 MG tablet 100 mg PO DAILY RF: 0 isosorbide mononitrate 60 mg tablet extended release 24 hr 60 mg PO DAILY RF: 0 furosemide 40 mg tablet 40 mg PO DAILY RF: 0 lisinopril 20 mg tablet 40 mg PO DAILY RF: 0 metformin 500 mg tablet 500 mg PO .daily at supper RF: 0 atenolol 25 mg tablet 50 mg PO DAILY RF: 0 (DME) blood sugar diagnostic Strip See Rx Instructions .ROUTE .MEDSUPPLY RF: 0 amlodipine 5 mg tablet 5 mg PO DAILY RF: 0 (DME) blood-glucose meter Kit See Rx Instructions .ROUTE .MEDSUPPLY RF: 0 cholecalciferol (vitamin D3) 1,250 mcg (50,000 unit) capsule 1,250 mcg PO QWEEK RF: 0 Toujeo SoloStar U-300 Insulin 300 unit/mL (1.5 mL) Insulin Pen 15 unit SUBCUT DAILY RF: 0 nitroglycerin 0.4 mg tablet, sublingual 0.4 mg sublingual Q5M PRN (Reason: Cardiac/Chest Pain) Qty: 25 RF: 3 Referrals / Follow Up: Edmund Wang MD [Primary Care Provider] - See Referral Note (as scheduled) Jovanny Lu MD [STAFF PHYSICIAN] - Within 2 Weeks Disposition Disposition (needs filled in before D/C Order can be placed): Home, Self Care
--- NOTE | 2021-12-31 09:20 | CASEMGMT ---
JUDSON ANDERSON assessment: Face to Face with patient for initial transition planning/care coordination assessment. JUDSON ANDERSON introduced self and role at [facility], pt voices understanding and consents to assessment. Pt is sitting up on side of bed in no distress on room air. Pt is A/Ox4 and answers all questions appropriately. Care providers, pharmacy, and demographics verified. Presentation: Pt thinks she may have passed out after she took a nap. She also states she woke up w/ a STATON-pt thinks she is reacting to her PCP taking away her insulin Admitting dx: Syncope, dysrhythmia PCP: Roberto Carlos-pt states no PCP but was referred to Roberto Carlos and would like this JUDSON ANDERSON to make appt with Dr. 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 Pt's daughter, Ailyn Vazquez, is HPOA. LNOK: Ailyn Vazquez, daughter/HPOA; Laury Garcia, daughter Living Arrangements: Pt lives alone in apt with no steps and states no concerns at home. Pt is independent with ADL's. Transportation: Pt's kids drive and states no transportation concerns. DME/HHC: Pt has the following DME: canes, walker, w/c, and shower chair. Pt states no need for any further DME. Pt states has had [facility] in the past and has been to [facility]. Pt states no concerns with going home a time of discharge. Pt is retired. Pt states does not smoke cigarettes or drink ETOH. Pt states no further concerns/needs. CM to follow for any further discharge planning/needs. Advised pt to ask for CM if any further questions/concerns/needs arise, voices understanding. Pt Goal: Home Plan: [place] JUDSON ANDERSON
[2021-12-31 09:25] LABS: Bedside Glucose 141 mg/dL (74-106)
--- NOTE | 2021-12-31 09:25 | DS.PCM_ITS ---
Providers Date of Admission: 12/28/21 Date of Discharge: 12/31/21 Primary Care Physician: Dr. Edmund Wang MD Consultations 12/28/21 16:25 Consult: Cardiology Routine Consulting Provider: Ed Swann Reason for Consult: ASYSTOLE EMERGENT Consult: Yes MD Notified: Yes Date Notified: 12/28/21 Time Notified: 16:25 Method of Notification: Verbal Method of Consult:: In-Person Reason For Visit: SYNCOPE, CARDIAC DYSRHYTHMIA Diagnosis Discharge Diagnosis (1) Chronic diastolic heart failure: Status: Chronic Code(s): I50.32 - Chronic diastolic (congestive) heart failure (2) Coronary artery disease: Status: Deleted Code(s): I25.10 - Atherosclerotic heart disease of [place] coronary artery without angina pectoris (3) Cardiac dysrhythmia: Status: Acute Code(s): I49.9 - Cardiac arrhythmia, unspecified Qualifiers: Arrhythmia type: unspecified cardiac arrhythmia Qualified Code(s): I49.9 - Cardiac arrhythmia, unspecified (4) Syncope: Status: Acute Code(s): R55 - Syncope and collapse Qualifiers: Syncope type: unspecified Qualified Code(s): R55 - Syncope and collapse (5) Elevated troponin: Status: Acute Code(s): R77.8 - Other specified abnormalities of plasma proteins Medications at Discharge Home Medications sertraline 100 mg PO DAILY 02/26/19 isosorbide mononitrate 60 mg PO DAILY 04/12/21 furosemide 40 mg PO DAILY 06/14/21 lisinopril 40 mg PO DAILY 06/14/21 nitroglycerin 0.4 mg sublingual tablet 0.4 mg SUBLINGUAL Q5M PRN #25 tab 12/23/21 Lonnie Glover U-300 Insulin 15 unit SUBCUT DAILY 12/30/21 amlodipine 5 mg PO DAILY 12/30/21 atenolol 50 mg PO DAILY 12/30/21 blood sugar diagnostic 12/30/21 blood-glucose meter 12/30/21 cholecalciferol (vitamin D3) 1,250 mcg PO QWEEK 12/30/21 metformin 500 mg PO .daily at supper 12/30/21 Hospital Course Operations None Procedures - (s/p pacemaker placement on 12/30/21) Summary of Care Provided Minutes Spent on Discharge: 35 Hospital Course: 81-year-old female with multiple comorbidities who presented with a syncopal episode. Patient had complained of feeling lightheaded and taking a short nap. She woke up and sat back in her chair and passed out briefly. She was brought to the ED by her daughter and found to have a 4-second pause with subsequent junctional escape rhythm. CTA of the chest was negative for acute PE. Cardiology was consulted from the ED Patient was admitted to the ICU and had episodes of A. fib with RVR. This appeared to be newly diagnosed. Patient was managed on Cardizem drip. She had relative hypotension. She had hypokalemia that was replaced. Patient had elevated troponins that peaked at more 4000- this was believed to be secondary to arrhythmia. Patient had an episode of unresponsiveness, was hypoxic requ iring use of BiPAP, and she then went into RVR again and was started on amiodarone bolus and drip. She was started on IV Zosyn for possible aspiration pneumonitis/pneumonia. Chest x-ray showed no infiltrate. She had pacemaker placed on 12/30/21. Patient continued to do well. She was evaluated for home oxygen and did not require oxygen. Was not discharged on oxygen. Should follow-up with cardiology in the outpatient within 2 weeks and also with her primary care doctor. Physical Exam Narrative Physical exam: General: Alert, Oriented x3, Cooperative, No apparent distress, on 2 L of oxygen HEENT: Atraumatic Oral: Moist Mucosa Neck: Supple Lungs: Diminished to auscultation Cardiovascular: HS I+II, regular, no murmurs Abdomen: Bowel Sounds Present, Soft, Non Tender Extremities: No edema Weight / BMI Weight Weight: 67.1 kg Body Mass Index (BMI) 30.2 ABG / Lab / Microbiology Data Result Diagrams: 12/31/21 05:10 12/31/21 05:10 Laboratory: Laboratory Results - last 24 hr 12/30/21 12:00: POC Glucose 142 H 12/30/21 17:46: POC Glucose 150 H 12/30/21 22:14: POC Glucose 121 H 12/31/21 05:10: WBC 8.2, RBC 3.71 L, Hgb 10.2 L, Hct 33.0 L, MCV 88.9, MCH 27.5, MCHC 30.9 L, RDW Std Deviation 55.6 H, RDW Coeff of Aubrie 17.2 H, Plt Count 216, MPV 11.5, Immature Gran % (Auto) 0.600, Neut % (Auto) 69.6, Lymph % (Auto) 18.7 L, [place] % (Auto) 7.2, Eos % (Auto) 3.4, Baso % (Auto) 0.5, Absolute Neuts (auto) 5.7, Absolute Lymphs (auto) 1.53, Nucleated RBC % 0 12/31/21 05:10: Sodium 139, Potassium 3.6, Chloride 105, Carbon Dioxide 28.0, Anion Gap 6, BUN 14, Creatinine 0.88, Estim Creat Clear Calc 53.11, Est GFR (MDRD) Af Amer 80, Est GFR (MDRD) Non-Af 66, BUN/Creatinine Ratio 16.0, Glucose 117 H, Calcium 9.2, Total Bilirubin 0.90, AST 58 H, ALT 44, Alkaline Phosphatase 91, Total Protein 6.6, Albumin 3.2, Globulin 3.4, Albumin/Globulin Ratio 0.9 12/31/21 06:57: POC Glucose 157 H Radiography Diagnostic Testing: Radiology Impression Chest X-Ray 12/31/21 05:55 IMPRESSION: There is a multilead permanent pacemaker without kinking or disruption of leads. There is no demonstrated pneumothorax. Cardiomegaly, arteriosclerosis and coronary artery disease. Electronically Signed: Aida Mera MD at 6:57 EDT Reading Location ID and State: , Service support , D/C Instructions Discharge Diet: No restrictions (as you feel able. No excessive stretching. No lifting your arm over your head (keep elbow below shoulder level) until seen for your pacemaker check. Do not lift your elbow away from your side until you are seen for your first visit. Keep the arm sling on if it helps remind you not to lift your arm.) May shower in (days): 3 Call your doctor if your incision/area has: Continuous Slow Oozing, Sudden Increased Bleeding, Increased Pain/ Swelling, Increased Redness, Foul Smelling Discharge and Swelling at the incision site Call your doctor if you observe: Fever of 101 or Higher, Shortness of breath, Dizziness, Fainting spells, Swelling in the ankles, Chest pain, Prolonged hiccupping and Increased palpitations (irregular heartbeat) Additional Dressing/Incision Instructions: When dressing is removed, wash and dry incision. Keep covered with a light bandage if it is rubbing against your clothing. Do not cover the incision with an airtight bandage. Change the bandage daily. Do not remove steri strips. The strips will fall off on their own. Please Follow Up With: Jovanny Lu MD When: .Call [phone] for follow up. Follow-up in pacemaker clinic on January 09 at 1 PM Meaningful Use Info Meaningful Use Diagnoses (Choose all that apply): None applicable Discharge Plan Admission Admit Date/Time: 12/28/21 16:31 Primary Reason for Your Visit: Syncope secondary to arrhythmia Attending Provider: Madhavi Lee Primary Care Provider: Mary Azevedo Consulting Providers: Ed Swann Instructions Additional Instructions / Restrictions: Take note of your post-pacemaker instructions. Follow-up with cardiology within 2 weeks Discharge Orders/Prescriptions Prescriptions: Continued sertraline 100 MG tablet 100 mg PO DAILY RF: 0 isosorbide mononitrate 60 mg tablet extended release 24 hr 60 mg PO DAILY RF: 0 furosemide 40 mg tablet 40 mg PO DAILY RF: 0 lisinopril 20 mg tablet 40 mg PO DAILY RF: 0 metformin 500 mg tablet 500 mg PO .daily at supper RF: 0 atenolol 25 mg tablet 50 mg PO DAILY RF: 0 (DME) blood sugar diagnostic Strip See Rx Instructions .ROUTE .MEDSUPPLY RF: 0 amlodipine 5 mg tablet 5 mg PO DAILY RF: 0 (DME) blood-glucose meter Kit See Rx Instructions .ROUTE .MEDSUPPLY RF: 0 cholecalciferol (vitamin D3) 1,250 mcg (50,000 unit) capsule 1,250 mcg PO QWEEK RF: 0 Toujeo SoloStar U-300 Insulin 300 unit/mL (1.5 mL) Insulin Pen 15 unit SUBCUT DAILY RF: 0 nitroglycerin 0.4 mg tablet, sublingual 0.4 mg sublingual Q5M PRN (Reason: Cardiac/Chest Pain) Qty: 25 RF: 3 Referrals / Follow Up: Jovanny Lu MD [STAFF PHYSICIAN] - Within 2 Weeks Mary Azevedo MD [Primary Care Provider] - 03/07/22 1:30 pm Edmund aWng MD [STAFF PHYSICIAN] - See Referral Note (as scheduled) Disposition Disposition (needs filled in before D/C Order can be placed): Home, Self Care Charges/Coding Visit Charges Inpatient E&M: 79115 Disch Hosp
--- NOTE | 2021-12-31 11:49 | CASEMGMT ---
Per Jeaneth ROPER, pt does not qualify for home oxygen. Caleb ROPER CM
== END 2021-12-31 12:06 | disposition home or self-care (01) | DRG 242 ==
LOC: ED 16:01 → ICU 16:33 → PCU 12-30 20:19
PROVIDERS: Family Medicine; Admitting Provider Internal Medicine; Emergency Provider Emergency Medicine; PCP Internal Medicine; Visit Provider Internal Medicine
DX: I49.5 Sick sinus syndrome (principal); J96.01 Acute respiratory failure with hypoxia; J69.0 Pneumonitis due to inhalation of food and vomit; I50.32 Chronic diastolic (congestive) heart failure; I11.0 Hypertensive heart disease with heart failure; E11.51 Type 2 diabetes mellitus with diabetic peripheral angiopathy without gangrene; D50.9 Iron deficiency anemia, unspecified; E55.9 Vitamin D deficiency, unspecified; E78.5 Hyperlipidemia, unspecified; I48.91 Unspecified atrial fibrillation; R55 Syncope and collapse; Z79.4 Long term (current) use of insulin; E87.6 Hypokalemia; I25.10 Atherosclerotic heart disease of native coronary artery without angina pectoris; I25.5 Ischemic cardiomyopathy; K21.9 Gastro-esophageal reflux disease without esophagitis; F32.A Depression, unspecified; Z95.0 Presence of cardiac pacemaker; R77.8 Other specified abnormalities of plasma proteins; Z79.899 Other long term (current) drug therapy; Z86.711 Personal history of pulmonary embolism
CPT/HCPCS: 33208; 36415; 70450; 71045; 71047; 71275; 80048; 80053; 80076; 82803; 82962; 83735; 84100; 84443; 84484; 85025; 85379; 85610; 85730; 92610; 93005; 94002; 94003; 94640; 94762; 99152; 99153; 99251; 99285; J1756; J7030; J7050; Q9967; A4216; C1894; G0463; J1940

== ENCOUNTER → 2022-03-26 | Outpatient (CLI) | payer MEDICARE, SELFPAY ==
[2022-03-26 15:13] LABS: Absolute Lymphocyte Count 1.89 X10^3/uL (0.83-4.51); Absolute Neutrophil Count 6.4 X10^3/uL (2.0-7.7); Basophil# 0.06 X10^3/uL; Basophil% 0.6 % (0-1); Eosinophils% 2.1 % (0-5); Hematocrit 34.1 % (37-47); Hemoglobin 10.4 g/dL (12.0-15.0); Lymphocyte # 1.89 X10^3/ul (0.83-4.51); Lymphocyte % 20.3 % (19-41); Mean Corp Hgb Conc 30.5 g/dL (32-36); Mean Corpuscular Hgb 27.7 pg (27.0-32.0); Mean Corpuscular Volume 90.9 fL (81-99); Mean Platelet Vol. 11.1 fl (6.2-12.0); Monocyte# 0.66 X10^3/uL; Monocyte% 7.1 % (0-10); NRBC Flagged by Analyzer 0 % (0-5); Neutrophil # 6.43 X10^3/uL (2.7-7.7); Platelet Count 322 K/mm3 (150-450); RBC Distribution Width CV 15.3 % (11.6-14.6); RBC Distribution Width SD 51.3 fl (35.1-43.9); Red Blood Count 3.75 M/mm3 (4.2-5.4); White Blood Count 9.3 K/mm3 (4.4-11.0)
[2022-03-26 16:25] LABS: AST(SGOT) 9 U/L (15-37); Alanine Aminotransfer ALT/SGPT 14 U/L (13-56); Albumin, Serum 3.4 g/dL (3.2-5.0); Alkaline Phosphatase 78 U/L (45-117); Anion Gap 7 (5-15); BUN 9 mg/dL (7-18); BUN/Creat Ratio 15.9 RATIO (10-20); Calcium,Total 9.5 mg/dL (8.5-10.1); Chloride 107 mmol/L (98-107); Creatinine, Serum 0.56 mg/dL (0.55-1.02); EST Glomerular Filtration Rate 109 mL/min (>60); Est Glom Filt Rate - Afr Amer 132 mL/min (>60); Globulin 3.3 g/dL (2.2-4.2); Glucose 113 mg/dL (74-106); Potassium 3.7 mmol/L (3.5-5.1); Protein, Total 6.7 g/dL (6.4-8.2); Sodium Level 140 mmol/L (136-145)
== END | disposition home or self-care (01) ==
PROVIDERS: PCP Internal Medicine; Referring Provider Internal Medicine; Visit Provider Internal Medicine
DX: K58.9 Irritable bowel syndrome, unspecified (principal); R19.7 Diarrhea, unspecified; R19.5 Other fecal abnormalities
CPT/HCPCS: 36415; 80053; 85025

== ENCOUNTER → 2022-04-04 | Outpatient (CLI) | payer MEDICARE, SELFPAY | END | disposition home or self-care (01) | LOC: MEDOUTP 10:07 | PROVIDERS: PCP Internal Medicine; Referring Provider Internal Medicine Endocrinology, Diabetes & Metabolism; Visit Provider Internal Medicine Endocrinology, Diabetes & Metabolism | DX: M81.0 Age-related osteoporosis without current pathological fracture (principal) ==

== ENCOUNTER → 2022-04-07 | Outpatient (CLI) | payer MEDICARE, SELFPAY ==
--- NOTE | 2022-04-07 15:55 | CT_ITS ---
STUDY: CT Abdomen And Pelvis W/ Contrast Injection 04/07/2022 5:05 PM REASON FOR EXAM: Female, 82 years old. 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 COMPARISON: 04.12.21. TECHNIQUE: CT Abdomen And Pelvis W/ Contrast Injection Oral IV Readi-CAT and amp; 100mL Isovue-300 FINDINGS: There are atherosclerotic calcifications of visualized coronary arteries. The visualized portions of the heart are within normal limits. Normal liver. Normal gallbladder and extrahepatic biliary system. Normal spleen. Normal pancreas. Normal bilateral adrenal glands. Non obstructive 2 mm right renal parenchymal stones. Cortical scarring of the right kidney. There are hypodensities in the right kidney. These are consistent for cysts. No follow up required. These are stable. There are hypodensities in the left kidney. ACR White Paper guidelines (Herstephanie, et al. JACR 2018; 15(2):264-273) suggest no follow-up is necessary. Focal wall thickening of the antrum of stomach. This can suggest a gastritis. Normal small intestine. Stool throughout the colon. The appendix is visualized and appears normal. There are calcifications of the abdominal aorta. This is consistent for atherosclerotic disease. There is NO abdominal aortic aneurysm. Vascular workup can be obtained based on clinical correlation. Normal inferior vena cava. Subcentimeter mesenteric lymph nodes. Normal urinary bladder. There is absence of the uterus consistent with a prior hysterectomy. There is metallic hardware noted in the left hip. There is an umbilical hernia containing fat. There are diffuse degenerative changes of the visualized lumbar spine. There is bilateral neural foraminal stenosis at L4-5 and L5-S1. T12 kyphoplasty. Calcified injection granulomas. Since the prior study, there is no development of a new L1 compression deformity. CT/Abdomen/Pelvis WITH Contrast IMPRESSION: (NOT LISTED IN ORDER OF SIGNIFICANCE) Gastritis. Since the prior study, there is no development of a new L1 compression deformity. Other findings as above. Electronically Signed: Raghav Omalley MD at 18:06 EDT ,
== END | disposition home or self-care (01) ==
LOC: CT 15:54
PROVIDERS: PCP Internal Medicine; Referring Provider Internal Medicine; Visit Provider Internal Medicine
DX: R10.9 Unspecified abdominal pain (principal); R19.7 Diarrhea, unspecified; R19.5 Other fecal abnormalities
CPT/HCPCS: 74177; Q9967

== ENCOUNTER → 2022-04-10 | Outpatient (CLI) | payer MEDICARE, SELFPAY | END | disposition home or self-care (01) | LOC: LAB 15:36 | PROVIDERS: PCP Internal Medicine; Visit Provider Internal Medicine | DX: R19.7 Diarrhea, unspecified (principal); R19.5 Other fecal abnormalities; K58.9 Irritable bowel syndrome, unspecified | CPT/HCPCS: 82274; 83630; 87493; 87506 ==

== ENCOUNTER 2022-04-29 17:28 | Emergency (ER) | payer MEDICARE, SELFPAY ==
[2022-04-29 17:28] VITALS: BP 148/87; PULSE 77; RESP 16; TEMP 36.3; O2SAT 97; BMI 27.0
--- NOTE | 2022-04-29 17:57 | RAD_ITS ---
STUDY: X-RAY - THORACIC SPINE REASON FOR EXAM: Female, 82 years old. fall TECHNIQUE: 3 view(s) of the thoracic spine were obtained. COMPARISON: None. FINDINGS: Normal kyphosis of the thoracic spine. There is no substantial scoliosis. Old compression fracture of T12 status post kyphoplasty.. Normal disc space heights. There is mild acute compression fracture of L1 The soft tissue structures are unremarkable. RAD/Thoracic Spine 2 Views IMPRESSION: Old compression fracture of T12 status post kyphoplasty. Acute compression fracture of L1 Electronically Signed: Master Ocasio MD at 19:07 EDT ,
--- NOTE | 2022-04-29 17:59 | EDS_ITS ---
HPI HPI - Fall History of Present Illness Chief Complaint: Fall Informant: patient and family Occured/Mechanism Occurred: Today Usually ambulates: Without assistance Pain/Injury Pain Location: back Quality of Pain: Sharp Current Severity: Mild Maximum Severity: Mild Associated Symptoms Associated Symptoms: Negative for Parasthesias, Weakness, Loss of function, Inability to ambulate, Loss of consciousness or Amnesia Narrative Narrative: 82-year-old female was at home in her bathroom when she lost her balance fell backwards striking her head on the door and her mid back on the wall she thinks. No LOC. She is on no blood thinners. She denies being ill the last couple days. She denies any nausea vomiting or diarrhea. Recently was on antibiotics for C. difficile which is now resolved. She does have a history of diabetes, coronary disease with a cardiac stent and a pacemaker. Family is with her and says she has frequent falls. Prior similar symptoms: Yes Recent Illness/Hospitalization: No PFSH PFSH Medical History Abdominal pain Abnormal results of thyroid function studies Anemia Anxiety and depression Back pain Back pain due to injury CAD (coronary artery disease) Chest pain Closed left hip fracture Compression fracture Current use of insulin Dark stools Depression Depression Depression Diarrhea Essential hypertension Fall Gastroesophageal reflux disease Gastroesophageal reflux disease History of hemorrhoids History of pulmonary embolus (PE) Hyperlipidemia Iron deficiency anemia Irritable bowel Ischemic cardiomyopathy Low back pain Lumbar compression fracture Lumbar spinal stenosis Myocardial infarct Non-smoker Orthopedic aftercare Osteoporosis Post-menopausal Sleep apnea 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) Type II diabetes mellitus Vitamin D deficiency Home Medications sertraline 100 mg tablet 100 mg PO DAILY depression 02/26/19 [History Last Taken 04/12/21] furosemide 40 mg tablet 40 mg PO DAILY edema 06/14/21 [History Last Taken Un known] lisinopril 20 mg tablet 40 mg PO DAILY blood pressure 06/14/21 [History Last Taken Unknown] nitroglycerin 0.4 mg sublingual tablet 0.4 mg sublingual Q5M PRN Cardiac/Chest Pain #25 tabs 12/23/21 [Rx Last Taken Unknown] amlodipine 5 mg tablet 5 mg PO DAILY blood pressure 12/30/21 [History Last Taken Unknown] atenolol 25 mg tablet 50 mg PO DAILY blood pressure 12/30/21 [History Last Taken Unknown] blood sugar diagnostic 12/30/21 [History Last Taken Unknown] blood-glucose meter 12/30/21 [History Last Taken Unknown] cholecalciferol (vitamin D3) 1,250 mcg (50,000 unit) capsule 1,250 mcg PO QWEEK vitamin 12/30/21 [History Last Taken Unknown] metformin 500 mg tablet 500 mg PO .daily at supper diabetes 12/30/21 [History Last Taken Unknown] isosorbide mononitrate 60 mg tablet,extended release 24 hr 60 mg PO DAILY heart #90 tabs 02/07/22 [Rx Last Taken Unknown] acetaminophen 500 mg tablet (Tylenol Extra Strength) 1,000 mg PO Q6H PRN Pain 02/21/22 [History Last Taken Unknown] potassium chloride 20 mEq tablet,extended release See Rx Instructions .Route .COMPLEX #30 tabs 03/14/22 [Rx Last Taken Unknown] Allergy/AdvReac Type Severity Reaction Status Date / Time latex Allergy Other Verified 03/11/22 10:02 Family History Father CVA (cerebral vascular accident) Mother Heart disease CAD (coronary artery disease) Sister CAD (coronary artery disease) Daughter CAD (coronary artery disease) Myocardial infarction Daughter Diabetes Surgical History H/O: hysterectomy History of carpal tunnel release History of cholecystectomy History of cholecystectomy History of coronary artery stent placement History of heart artery stent History of kyphoplasty History of permanent cardiac pacemaker placement (12/30/21) Hx of cholecystectomy Hx of knee surgery S/P hysterectomy Social History household members: none housing: house Smoking Status: Never smoker alcohol intake: never substance use type: does not use what type of physical activity do you participate in: none do you feel safe at home: Yes ROS ROS ED ROS Narrative Denies. Review of Systems ROS Unobtainable: Denies due to encephalopathy Constitutional Constitutional ED: Denies chills Eyes Eyes: Denies blurry vision ENT ENT ED: Denies ear pain Cardiovascular Cardiovascular: Denies chest pain Respiratory/Chest Respiratory/Chest: Denies cough Gastrointestinal Gastrointestinal: Denies abdominal pain Genitourinary Genitourinary ED: Denies dysuria Musculoskeletal Musculoskeletal: Reports back pain; Denies arthralgias Integumentary Denies abscess Neurologic Neurologic: Denies headache(s) Psychiatric Psychiatric: Denies anxiety Endocrine Endocrinology: Denies polydipsia Hematologic/Lymphatic Hematologic/Lymphatic: Denies easy bleeding Allergic/Immunologic Allergic/Immunologic ED: Denies mouth swelling or tongue swelling EXAM Physical Exam Narrative Exam Narrative: 82-year-old female no acute distress. Vital signs stable afebrile. H EENT exam pupils round react light. No facial or scalp trauma. No lacerations or hematomas. C-spine nontender. Trachea midline. Lungs clear to auscultation. Heart regular rhythm rate about 80 no murmur. Chest wall nontender. Abdomen soft nontender. Pelvic girdle intact. Moving all 4 extremities. Nontender no deformity. 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 Dorsi plantarflexion intact. Back she is tender in mid to lower thoracic upper lumbar spine region. Neurologically she is awake and alert with no focal motor deficits. Answers questions and follows commands. Const Vital Signs: 04/29/22 17:28 04/29/22 18:03 04/29/22 18:56 Temperature 97.3 F L Temperature Source Temporal Pulse Rate 77 86 Respiratory Rate 16 16 Respiratory Effort Normal Non-Labored Respiratory Depth Normal Respiratory Pattern Normal Blood Pressure 148/87 H 163/86 H Blood Pressure Mean 107 111 Pulse Ox 97 91 Oxygen Delivery Method Room Air Room Air Room Air Positive well nourished and well developed; Negative for cachectic, contractures or unkempt General Appearance ED: well developed; Negative for unkempt, cachectic or contractures Nutritional Appearance: Negative for cachectic HEENT Reports normocephalic atraumatic; Negative for trauma, contusion, hematoma or tenderness Eyes PERRL and EOMs intact bilaterally General Eye ED: Negative for pale conjunctiva or scleral icterus Neck full ROM, no lymphadenopathy and supple General: Negative for tenderness or other Chest Wall inspection of chest normal and palpation of chest normal Resp normal respiratory effort, no retractions and clear to auscultation bilaterally Effort and Inspection: Negative for pain with movement Auscultation: Negative for rales, rhonchi or wheezes Cardio regular rate, regular rhythm, S1 normal heart sound, S2 normal heart sound and no murmurs Rate: Negative for bradycardia Rhythm: Negative for abnormal rhythm Bruits: Negative for other GI non-tender, non-distended and no masses Inspection: Negative for abdominal distention Auscultation: normoactive bowel sounds Palpation: soft; Negative for guarding or rebound tenderness present Back/Spine no CVA tenderness Back/Spine Narrative: Tenderness mid to lower thoracic and upper lumbar spine. General Back: Negative for CVA tenderness Cervical Spine: Negative for cervical spine tenderness Extremity Extremity Narrative: Nontender no deformity. Normal range of motion. Normal strength. Neuro oriented x3, moves all extremities and no focal motor deficits [place] Coma Scale: document GCS findings Spontaneous Obeys Commands Oriented 15 Sensorium / Orientation: alert, oriented to person, oriented to place and oriented to time; Negative for orientation impaired, confused, lethargic or stuporous Motor Exam: strength 5/5 throughout Psych mental status grossly normal and thought process normal Appearance: Negative for unkempt Attitude: No agitated Mood & Affect: Negative for depressed Skin Lesions: no lesions Rashes: no rashes Trauma: Negative for abrasion or laceration MDM MDM MDM Narrative Medical decision making narrative: Older female frequent falls. X-ray of her thoracic and lumbar spine being obtained. She is awake alert. She had no LOC. She is on no blood thinners. She has no neck pain I do not think her head or neck need to image. She will be given 1 Twining for pain. Repeat exam patient doing well at 7:45 PM. We discussed her x-ray results with patient and her family member at bedside. They are comfortable with her being discharged to home. She has pain medication at home. Radiography Diagnostic Testing: Clinical Impression(s) from Imaging Studies Thoracic Spine X-Ray 04/29/22 17:57 IMPRESSION: Old compression fracture of T12 status post kyphoplasty. Acute compression fracture of L1 Electronically Signed: Master Ocasio MD at 19:07 EDT , Lumbar Spine X-Ray 04/29/22 18:30 IMPRESSION: Interval worsening of anterior compression fracture of L1 compared with January 29, 2022 with a total of 25% anterior height loss. MRI could better assess for acute intraosseous edema as indicated. Prior vertebroplasty changes at T12. Spondylosis, most prominent at L5-S1. Electronically Signed: Louie Mora MD at 19:18 EDT , Lumbar spine x-ray interpreted by myself shows shows no acute process. Old compression fracture of T12 and L1. Interpreted by myself and the radiologist. Thoracic spine x-ray 2 views interpreted by myself shows old compression fractures of T12 and L1. No new injury noted. Interpreted both by myself and radiologist. Discharge Plan Triage Chief Complaint: Fall ED Provider: Grzegorz Last Dx/Rx/DC Orders Clinical Impression: Fall, Back contusion, History of diabetes mellitus, History of compression fracture of spine Instructions: ED Back Contusion Prescriptions: No Action acetaminophen [Tylenol Extra Strength] 500 mg tablet 1,000 mg PO Q6H PRN (Reason: Pain) sertraline 100 MG tablet 100 mg PO DAILY Label Comments: TAKE 1 TABLET BY MOUTH DAILY furosemide 40 mg tablet 40 mg PO DAILY lisinopril 20 mg tablet 40 mg PO DAILY metformin 500 mg tablet 500 mg PO .daily at supper atenolol 25 mg tablet 50 mg PO DAILY (DME) blood sugar diagnostic Strip See Rx Instructions .ROUTE .MEDSUPPLY Rx Instructions: test three times a day amlodipine 5 mg tablet 5 mg PO DAILY (DME) blood-glucose meter Kit See Rx Instructions .ROUTE .MEDSUPPLY Rx Instructions: As directed cholecalciferol (vitamin D3) 1,250 mcg (50,000 unit) capsule 1,250 mcg PO QWEEK nitroglycerin 0.4 mg tablet, sublingual 0.4 mg sublingual Q5M PRN (Reason: Cardiac/Chest Pain) Qty: 25 3RF isosorbide mononitrate 60 mg tablet extended release 24 hr 60 mg PO DAILY Qty: 90 3RF Rx Instructions: Take 1 tablet by mouth once daily potassium chloride 20 mEq tablet extended release See Rx Instructions .ROUTE .COMPLEX Qty: 30 1RF Dose Instruction: Take 1 tablet by mouth once daily Rx Instructions: Take 1 tablet by mouth once daily Primary Care Provider: Mary Azevedo Referrals: Mary Azevedo MD [Primary Care Provider] - As Needed Activity Restrictions/Additional Instructions: Ice to all sore areas. Your home pain medications Follow-up with your doctor as needed. Strongly encourage you to use your walker when getting around your home. Disposition Disposition: Home, Self Care
--- NOTE | 2022-04-29 18:30 | RAD_ITS ---
INDICATION: fall EXAMINATION/TECHNIQUE: X-RAY - XR Spine Lumbar 2 or 3 Views COMPARISON: January 29, 2022. FINDINGS: VERTEBRAE : Vertebroplasty changes at T12. Anterior vertebral height loss at L1 which is increased along the inferior endplate compare with January 29, 2022. Chronic grade 2 anterolisthesis L5 on S1 with severe L4-5 and L5-S1 facet arthropathy. Preservation of the normal lumbar lordosis. DISCS: Severe disc height loss L5-S1. Mild disc height loss at L2-L3 and L3-4 INCLUDED ABDOMEN: Diffuse aortic and peripheral atherosclerosis. RAD/Lumbar Spine 2 or 3 Views IMPRESSION: Interval worsening of anterior compression fracture of L1 compared with January 29, 2022 with a total of 25% anterior height loss. MRI could better assess for acute intraosseous edema as indicated. Prior vertebroplasty changes at T12. Spondylosis, most prominent at L5-S1. Electronically Signed: Louie Mora MD at 19:18 EDT ,
[2022-04-29] MEDS: HYDROcodone Bitartrate/Apap 5/325 Tablet PO (18:41)
[2022-04-29 18:56] VITALS: BP 163/86; PULSE 86; RESP 16; O2SAT 91
[2022-04-29 20:02] VITALS: BP 163/86; PULSE 86; RESP 16; O2SAT 91
== END 2022-04-29 20:02 | disposition home or self-care (01) ==
PROVIDERS: Emergency Provider Emergency Medicine; PCP Internal Medicine; Visit Provider Emergency Medicine
DX: S20.229A Contusion of unspecified back wall of thorax, initial encounter (principal); E11.9 Type 2 diabetes mellitus without complications; I25.5 Ischemic cardiomyopathy; I25.10 Atherosclerotic heart disease of native coronary artery without angina pectoris; I10 Essential (primary) hypertension; E55.9 Vitamin D deficiency, unspecified; F41.9 Anxiety disorder, unspecified; F32.A Depression, unspecified; Z79.899 Other long term (current) drug therapy; Z79.84 Long term (current) use of oral hypoglycemic drugs; Z95.0 Presence of cardiac pacemaker; Z86.711 Personal history of pulmonary embolism; Z95.5 Presence of coronary angioplasty implant and graft; W19.XXXA Unspecified fall, initial encounter
CPT/HCPCS: 72070; 72100; 99283

== ENCOUNTER 2022-05-08 12:09 | Inpatient (IN) | payer MEDICARE, SELFPAY ==
[2022-05-08] VITALS (11 sets, daily range): BP systolic 110–193; BP diastolic 42–114; PULSE 60–124; RESP 16–18; TEMP 36.2–36.7; O2SAT 92–100; BMI 27.3; BMI 27.1
[2022-05-08] MEDS: Morphine 4 MG/ML Syringe IV (12:58)
[2022-05-08] MEDS: Ondansetron 4 MG/2 ML Vial IV (12:58)
[2022-05-08 12:59] LABS: Hematocrit 38.8 % (37-47); Hemoglobin 12.4 g/dL (12.0-15.0); Mean Corpuscular Hgb 27.8 pg (27.0-32.0); Mean Platelet Vol. 10.8 fl (6.2-12.0); Platelet Count 294 K/mm3 (150-450); RBC Distribution Width CV 15.7 % (11.6-14.6); RBC Distribution Width SD 49.5 fl (35.1-43.9); Red Blood Count 4.46 M/mm3 (4.2-5.4); White Blood Count 11.6 K/mm3 (4.4-11.0)
--- NOTE | 2022-05-08 13:02 | ED.VIS.BACK ---
HPI History of Present Illness Chief Complaint: Back Narrative Narrative: 82-year-old female with history of compression fractures presenting with back pain. She states her last fall was prior to her last visit to the ER. She had a worsening L1 compression fracture at that time. She states that she lives in independent living and she is not getting much help. She states that nursing staff will help her get up and move around. She states that her children do not come and help her as much as she needs. She states that she tried to call them today but they did not call back or show up. She thinks they are tired of caring for her. She states that she does not want to live anymore because she is tired of all her pain. Patient does report that she is supposed to have surgery tomorrow but does not know the name of the surgeon. She does not know what facility she supposed to be yet. She states its not at [facility]. Patient denies any new falls since her previous visit but is having trouble getting around. She was able to walk yesterday with her walker which is her baseline. She does report pain with ambulation which is worse. She states she sits most of the time. Denies loss of bladder bowel control. Denies saddle anesthesia or paresthesia. [facility] Medical History Abdominal pain Abnormal results of thyroid function studies Anemia Anxiety and depression Back pain Back pain due to injury CAD (coronary artery disease) Chest pain Closed left hip fracture Compression fracture Current use of insulin Dark stools Depression Depression Depression Diarrhea Essential hypertension Fall Gastroesophageal reflux disease Gastroesophageal reflux disease History of hemorrhoids History of pulmonary embolus (PE) Hyperlipidemia Iron deficiency anemia Irritable bowel Ischemic cardiomyopathy Low back pain Lumbar compression fracture Lumbar spinal stenosis Myocardial infarct Non-smoker Orthopedic aftercare Osteoporosis Post-menopausal Sleep apnea 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) Type II diabetes mellitus Vitamin D deficiency Home Medications sertraline 100 mg tablet 100 mg PO DAILY depression 02/26/19 [History Last Taken 04/12/21] furosemide 40 mg tablet 40 mg PO DAILY edema 06/14/21 [History Last Taken Unknown] lisinopril 20 mg tablet 40 mg PO DAILY blood pressure 06/14/21 [History Last Taken Unknown] nitroglycerin 0.4 mg sublingual tablet 0.4 mg sublingual Q5M PRN Cardiac/Chest Pain #25 tabs 12/23/21 [Rx Last Taken Unknown] amlodipine 5 mg tablet 5 mg PO DAILY blood pressure 12/30/21 [History Last Taken Unknown] atenolol 25 mg tablet 50 mg PO DAILY blood pressure 12/30/21 [History Last Taken Unknown] blood sugar diagnostic 12/30/21 [History Last Taken Unknown] blood-glucose meter 12/30/21 [History Last Taken Unknown] cholecalciferol (vitamin D3) 1,250 mcg (50,000 unit) capsule 1,250 mcg PO QWEEK vitamin 12/30/21 [History Last Taken Unknown] metformin 500 mg tablet 500 mg PO .daily at supper diabetes 12/30/21 [History Last Taken Unknown] isosorbide mononitrate 60 mg tablet,extended release 24 hr 60 mg PO DAILY heart #90 tabs 02/07/22 [Rx Last Taken Unknown] acetaminophen 500 mg tablet (Tylenol Extra Strength) 1,000 mg PO Q6H PRN Pain 02/21/22 [History Last Taken Unknown] potassium chloride 20 mEq tablet,extended release See Rx Instructions .Route .COMPLEX #30 tabs 03/14/22 [Rx Last Taken Unknown] Allergy/AdvReac Type Severity Reaction Status Date / Time latex Allergy Other Verified 03/11/22 10:02 Family History Father CVA (cerebral vascular accident) Mother Heart disease CAD (coronary artery disease) Sister CAD (coronary artery disease) Daughter CAD (coronary artery disease) Myocardial infarction Daughter Diabetes Surgical History H/O: hysterectomy History of carpal tunnel release History of cholecystectomy History of cholecystectomy History of coronary artery stent placement History of heart artery stent History of kyphoplasty History of permanent cardiac pacemaker placement (12/30/21) Hx of cholecystectomy Hx of knee surgery S/P hysterectomy Social History household members: none housing: house Smoking Status: Never smoker alcohol intake: never substance use type: does not use what type of physical activity do you participate in: none do you feel safe at home: Yes ROS ROS ED Constitutional Constitutional ED: Denies chills or fever(s) Eyes Eyes: Denies change in vision or diplopia ENT ENT ED: Denies rhinorrhea or sore throat Cardiovascular Cardiovascular: Denies chest pain or palpitations Respiratory/Chest Respiratory/Chest: Denies dyspnea or dyspnea on exertion Gastrointestinal Gastrointestinal: Denies abdominal pain, constipation or diarrhea Genitourinary Genitourinary ED: Denies dysuria or hematuria Musculoskeletal Musculoskeletal: Reports back pain Integumentary Denies abscess Neurologic Neurologic: Denies paresthesias Psychiatric Psychiatric: Denies anxiety or depression EXAM Physical Exam Const Vital Signs: 05/08/22 12:10 05/08/22 12:13 Temperature 98.1 F Temperature Source Oral Pulse Rate 82 Respiratory Rate 18 Blood Pressure 193/72 H Blood Pressure Mean 112 Pulse Ox 92 Oxygen Delivery Method Room Air Positive well nourished General Appearance ED: NAD HEENT Reports moist mucous membranes Cardio regular rate and regular rhythm GI normal to inspection, nondistended, normoactive bowel sounds Back/Spine Back/Spine Narrative: Generalized tenderness of the lumbar paraspinal musculature region. There is also tenderness in the midline. No obvious step-offs. Extremity normal to inspection and no clubbing, cyanosis or edema Neuro oriented x3 Sensorium / Orientation: alert Motor Exam: strength 5/5 throughout Psych mental status grossly normal Skin no rashes or lesions noted MDM MDM MDM Narrative Medical decision making narrative: Patient presenting with continued back pain and difficulty getting around the independent living facility. She states she does not want to live like this anymore. She request long-term placement. Blood work is obtained and her CBC shows a slight leukocytosis of 11.6. Renal function normal. Potassium slight low at 2.4. Patient was given 40 mill equivalents p.o. potassium. on my interpretatio X-ray of the lumbar spine shows L1 vertebral fracture without significant interval change. There is also previous T12 kyphoplastyn. Urinalysis consistent with UTI. She given Rocephin and urine culture was sent. Patient was seen by social work and she needed to be admitted in order to be placed. Magnesium was sent and will be followed upstairs. Patient stable on transfer. Impression: 1. Back pain 2. UTI 3. Hypokalemia 4. Failure to thrive Lab Data Attestation: I reviewed the patient's lab results. Labs: Laboratory Results - last 24 hr 07/21/22 07/21/22 07/21/22 12:50 12:50 13:40 WBC 11.6 H RBC 4.46 Hgb 12.4 Hct 38.8 MCV 87.0 MCH 27.8 MCHC 32.0 RDW Std Deviation 49.5 H RDW Coeff of Aubrie 15.7 H Plt Count 294 MPV 10.8 Sodium 141 Potassium 2.4 L* Chloride 106 Carbon Dioxide 26.0 Anion Gap 9 BUN 11 Creatinine 0.43 L Estim Creat Clear Calc 39.17 Est GFR (MDRD) Af Amer 180 Est GFR (MDRD) Non-Af 149 BUN/Creatinine Ratio 25.5 H Glucose 120 H Calcium 9.1 Urine Color Yellow Urine Clarity Clear Urine pH 6.0 Ur Specific [place] 1.020 Urine Protein 30 H Urine Glucose (UA) Normal Urine Ketones 15 H Urine Occult Blood 10 H Urine Nitrite Positive H Urine Bilirubin Negative Urine Urobilinogen Normal Ur Leukocyte Esterase 25 H Radiography Diagnostic Testing: Clinical Impression(s) from Imaging Studies Lumbar Spine X-Ray 05/08/22 13:45 IMPRESSION: Degenerative changes of the spine, as detailed above. Stable loss of height of the L1 vertebrae as well as the T12 vertebrae and prior vertebroplasty of the T12 vertebrae. Electronically Signed: Crow Avalos MD at 14:10 EDT , Discharge Plan Triage Chief Complaint: Back ED Provider: Hiren Pickett Dx/Rx/DC Orders Prescriptions: No Action acetaminophen [Tylenol Extra Strength] 500 mg tablet 1,000 mg PO Q6H PRN (Reason: Pain) sertraline 100 MG tablet 100 mg PO DAILY Label Comments: TAKE 1 TABLET BY MOUTH DAILY furosemide 40 mg tablet 40 mg PO DAILY lisinopril 20 mg tablet 40 mg PO DAILY metformin 500 mg tablet 500 mg PO .daily at supper atenolol 25 mg tablet 50 mg PO DAILY (DME) blood sugar diagnostic Strip See Rx Instructions .ROUTE .MEDSUPPLY Rx Instructions: test three times a day amlodipine 5 mg tablet 5 mg PO DAILY (DME) blood-glucose meter Kit See Rx Instructions .ROUTE .MEDSUPPLY Rx Instructions: As directed cholecalciferol (vitamin D3) 1,250 mcg (50,000 unit) capsule 1,250 mcg PO QWEEK nitroglycerin 0.4 mg tablet, sublingual 0.4 mg sublingual Q5M PRN (Reason: Cardiac/Chest Pain) Qty: 25 3RF isosorbide mononitrate 60 mg tablet extended release 24 hr 60 mg PO DAILY Qty: 90 3RF Rx Instructions: Take 1 tablet by mouth once daily potassium chloride 20 mEq tablet extended release See Rx Instructions .ROUTE .COMPLEX Qty: 30 1RF Dose Instruction: Take 1 tablet by mouth once daily Rx Instructions: Take 1 tablet by mouth once daily Primary Care Provider: Mary Azevedo Referrals: Mary Azevedo MD [Primary Care Provider] -
[2022-05-08 13:19] LABS: Anion Gap 9 (5-15); BUN 11 mg/dL (7-18); BUN/Creat Ratio 25.5 RATIO (10-20); Calcium,Total 9.1 mg/dL (8.5-10.1); Chloride 106 mmol/L (98-107); Creatinine, Serum 0.43 mg/dL (0.55-1.02); EST Glomerular Filtration Rate 149 mL/min (>60); Est Glom Filt Rate - Afr Amer 180 mL/min (>60); Estimated Creatinine Clearance 39.17 ml/min; Glucose 120 mg/dL (74-106); Potassium 2.4 mmol/L (3.5-5.1); Sodium Level 141 mmol/L (136-145)
--- NOTE | 2022-05-08 13:27 | CM.ED ---
Addendum entered by Sharyn Hernández 05/08/22 15:01: SW did provide pt with additional community resources including a list of Assisted Livings, HHC, Private Duty Aides and [facility] information. Addendum entered by Sharyn Hernández 05/08/22 14:45: Pt to be admitted. SW in to speak with pt and updated her that she will be admitted and SW on the floor will assist her in getting to SNF. Pt states understanding. Pt denied any current thoughts or plans to harm her self or others. Plan: Admit, pt agreeable to SNF placement. Original Note: Social Work Note Reason for Referral: Limited support, recent falls, pt made comment about not wanting to live anymore SW in to speak with pt. Pt is alert and orientated, engages appropriately in conversation. Pt states that she lives alone in an apartment with no steps. Pt states that she has had falls recently. Pt states that she has a walker and wheelchair and uses the walker. Pt states she was told to not walk outside. Pt states that her back is destroyed and her back is sore. Pt states that it hurts to touch it. Pt states that she broke her hip last year. Pt states that she see's pain management at [facility] but unable to recall the name. Pt states before her children would come to her apartment and take her out to dinner but they do not do that anymore. Pt states that her daughter Ailyn Vazquez lives close to her and does the best she can to help pt. Pt states that Ailyn is currently in [place] visiting her granddaughter. Pt states that Ailyn will visit her every night and bring her food. Pt states Ailyn left yesterday so that was the last time she saw Ailyn. Pt states that she has not ate in two days. Pt states that she has a house full of food, but it hurts to stand and it takes her very long to make food. Pt states that when Ailyn brings over the food she will eat. Pt states that she has five children and Ailyn is the oldest and her HCPOA. HCPOA is on file at [facility] and does name Ailyn to be HCPOA. 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 Pt states that she has been to [facility] before for rehab and didn't like it. Pt states that her granddaughter currently works at [employer]. Pt states that she was in [facility] in October of this year. Pt states that she currently has no help in the home. Pt states that she called her insurance to get help and they told her that she was not signed up for it. Pt states you better get me signed up for it or I am going to go shoot them. (Pt saying this about her insurance company). SW spoke with pt about Assisted Living. Pt states that she has thought about it, but has not been able to go out and visit the Assisted Livings. Pt states that she knows she needs help. SW spoke with pt about the option of going to a SNF and then transitioning to Assisted Living and that the SNF will be able to assist pt with the transition. Pt agreeable to going to SNF. SW informed pt that approval through her insurance will be needed and that cannot be done through the ED, so she would need to be admitted. Pt states understanding. Patient was provided a list of SNF providers including quality and resource use data and consistent with the patient?s preferred geographic region, medical needs, and insurance network. SW informed pt that the three SNF that are in [place] are [facility] and [facility]. Pt states that she has a friend that has been to [facility] before and did not have a good experience. SW informed pt to review SNF list. SW asked pt about her comment of not wanting to live anymore. Pt states I don't. Pt states that she is in her Mid 80's. Before this worker could ask her if she was planning on harming herself pt stated and No I am not going to do anything to harm myself. Pt states that she is just ready whenever the good lord calls her home. Pt denied any current plans to kill self. At this time, pt is agreeable to going to SNF and then transitioning to [facility]. THEODORE updated MD Pickett that pt is agreeable to SNF. SW to continue to follow. Sharyn Hernández [employer], SAFETY PIN ASSEMBLING MACHINE OPERATOR
--- NOTE | 2022-05-08 13:45 | RAD_ITS ---
STUDY: X-RAY - LUMBAR SPINE REASON FOR EXAM: Female, 82 years old. Back pain TECHNIQUE: 2 view(s) of the lumbar spine were obtained. COMPARISON: Comparison is made with prior examination dated 04/29/2022. FINDINGS: Normal lumbar lordosis. There is no substantial scoliosis. There is a normal alignment of the vertebrae. There is generalized demineralization of the vertebral bodies. Stable vertebroplasty of the T12 vertebrae with loss of height. Stable loss of height of the L1. Moderate degree of disc space narrowing at the L5-S1 level. Facet joint osteoarthritis. Again, there is pinning of the left femoral neck. There is atherosclerotic calcification of the abdominal aorta without a demonstrated aneurysm. RAD/Lumbar Spine 2 or 3 Views IMPRESSION: Degenerative changes of the spine, as detailed above. Stable loss of height of the L1 vertebrae as well as the T12 vertebrae and prior vertebroplasty of the T12 vertebrae. Electronically Signed: Crow Avalos MD at 14:10 EDT ,
[2022-05-08 14:08] LABS: Color, Urine Yellow (Yellow); Glucose, Dipstick Normal (Normal); Ketone-Dipstick 15 mg/dl (Negative); Leukocyte Esterase-Dipstick 25 /ul (Negative); Nitrite-Dipstick Positive (Negative); Occult Blood-Urine 10 /ul (Negative); Protein-Dipstick 30 mg/dl (Negative); Urine Bilirubin Dipstick Negative (Negative); Urine Clarity Clear (Clear); Urine Urobilinogen Normal (Normal)
[2022-05-08] MEDS: Potassium Chloride Oral Tablet 20 MEQ 40 MEQ PO (14:16)
--- NOTE | 2022-05-08 14:16 | EKG12_ITS ---
Test Reason : Blood Pressure : / mmHG Vent. Rate : 116 BPM Atrial Rate : 000 BPM P-R Int : 000 ms QRS Dur : 150 ms QT Int : 390 ms P-R-T Axes : 000 -41 132 degrees QTc Int : 542 ms Atrial fibrillation with rapid ventricular response with premature ventricular or aberrantly conducte d complexes Left axis deviation Left bundle branch block Abnormal ECG Confirmed by JOSSY PEARSON, SADIE ([id number]), supervising film or videotape editor PITA BLEDSOE ([id number]) on 05/09/2022 8:24:44 AM Referred By: KERRIE Confirmed By:SADIE FENTON MD
--- NOTE | 2022-05-08 14:33 | HP.PCM_ITS ---
Documented by User: DAINA Jimenes 05/08/22 14:57 HPI - General General Date of Admission: 05/08/22 Date of Service: 05/08/22 Chief Complaint: Back Pain HPI Narrative LARRY MALDONADO, is a 82 F who presents following multiple falls at her independent living over the past couple months. Patient states that she has a history of compression fractures. Patient states that she is tired of being in pain. Staff states that they think that she is post to go to pain management tomorrow. Patient states that she is was to have surgery tomorrow but does not know where or with who. Patient intermittently confused that she does not know where she is at currently. Patient complains of urinary frequency however denies dysuria. [facility] Medical History Abdominal pain Abnormal results of thyroid function studies Anemia Anxiety and depression Back pain Back pain due to injury CAD (coronary artery disease) Chest pain Closed left hip fracture Compression fracture Current use of insulin Dark stools Depression Depression Depression Diarrhea Essential hypertension Fall Gastroesophageal reflux disease Gastroesophageal reflux disease History of hemorrhoids History of pulmonary embolus (PE) Hyperlipidemia Iron deficiency anemia Irritable bowel Ischemic cardiomyopathy Low back pain Lumbar compression fracture Lumbar spinal stenosis Myocardial infarct Non-smoker Orthopedic aftercare Osteoporosis Post-menopausal Sleep apnea 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) Type II diabetes mellitus Vitamin D deficiency Home Medications lisinopril 20 mg tablet 40 mg PO DAILY blood pressure 06/14/21 [History Last Taken Unknown] nitroglycerin 0.4 mg sublingual tablet 0.4 mg sublingual Q5M PRN Cardiac/Chest Pain #25 tabs 12/23/21 [Rx Last Taken Unknown] amlodipine 5 mg tablet 5 mg PO DAILY blood pressure 12/30/21 [History Last Taken Unknown] atenolol 25 mg tablet 50 mg PO DAILY blood pressure 12/30/21 [History Last Taken Unknown] blood sugar diagnostic 12/30/21 [History Last Taken Unknown] blood-glucose meter 12/30/21 [History Last Taken Unknown] cholecalciferol (vitamin D3) 1,250 mcg (50,000 unit) capsule 1,250 mcg PO QWEEK vitamin 12/30/21 [History Last Taken Unknown] metformin 500 mg tablet 500 mg PO .daily at supper diabetes 12/30/21 [History Last Taken Unknown] isosorbide mononitrate 60 mg tablet,extended release 24 hr 60 mg PO DAILY heart #90 tabs 02/07/22 [Rx Last Taken Unknown] acetaminophen 500 mg tablet (Tylenol Extra Strength) 1,000 mg PO Q6H PRN Pain 02/21/22 [History Last Taken Unknown] Allergy/AdvReac Type Severity Reaction Status Date / Time latex Allergy Other Verified 03/11/22 10:02 Family History Father CVA (cerebral vascular accident) Mother Heart disease CAD (coronary artery disease) Sister CAD (coronary artery disease) Daughter CAD (coronary artery disease) Myocardial infarction Daughter Diabetes Surgical History H/O: hysterectomy History of carpal tunnel release History of cholecystectomy History of cholecystectomy History of coronary artery stent placement History of heart artery stent History of kyphoplasty History of permanent cardiac pacemaker placement (12/30/21) Hx of cholecystectomy Hx of knee surgery S/P hysterectomy Social History household members: none housing: house Smoking Status: Never smoker alcohol intake: never substance use type: does not use what type of physical activity do you participate in: none do you feel safe at home: Yes ROS Constitutional Constitutional: Denies anorexia, change in weight, chills, fatigue or fever(s) Cardiovascular Cardiovascular: Denies chest pain, edema or palpitations Respiratory/Chest Respiratory/Chest: Denies cough, shortness of breath at rest or shortness of breath with exertion Gastrointestinal Gastrointestinal: Denies abdominal pain, constipation, diarrhea, nausea or vomiting Genitourinary Genitourinary: Reports urinary frequency and urinary urgency; Denies dysuria Musculoskeletal Musculoskeletal: Reports back pain; Denies extremity pain, joint pain, joint stiffness or joint swelling Integumentary Integumentary: Denies dry skin Neurologic Neurologic: Denies abnormal gait, abnormal speech, confusion or dizziness Psychiatric Psychiatric: Denies anxiety or depression Endocrine Endocrinology: Denies change in body appearance Hematologic/Lymphatic Hematologic/Lymphatic: Denies anemia Vital Signs Vital Signs Vital Signs: 05/08/22 12:10 05/08/22 12:13 05/08/22 14:18 Temperature 98.1 F 97.7 F L Temperature Source Oral Temporal Pulse Rate 82 116 H Respiratory Rate 18 18 Blood Pressure 193/72 H 115/94 H Blood Pressure Mean 112 101 Pulse Ox 92 98 Oxygen Delivery Method Room Air Room Air 05/08/22 14:19 Temperature 97.7 F L Temperature Source Temporal Pulse Rate 116 H Respiratory Rate 18 Blood Pressure 115/94 H Blood Pressure Mean Pulse Ox 98 Oxygen Delivery Method Room Air Weight Weight: 126 lb 1.671 oz Body Mass Index (BMI) 27.3 Physical Exam Const alert General Appearance: cooperative Orientation / Consciousness: oriented to person, oriented to place and confused HEENT normocephalic and head/scalp atraumatic Eyes conjunctivae normal and no scleral icterus Neck no lymphadenopathy and supple General: trachea midline Resp normal respiratory effort, normal air movement and clear to auscultation bilaterally Cardio regular rate, regular rhythm, S1 normal heart sound, S2 normal heart sound and peripheral pulses 2+ throughout GI normal to inspection, nondistended, normoactive bowel sounds, soft to palpation and non-tender Extremity normal capillary refill and no clubbing, cyanosis or edema Skin General Skin Exam: no breakdown Lesions: no lesions Rashes: no rashes Neuro moves all extremities, no focal motor deficits and no sensory deficits noted Psych thought process normal, cooperative and affect normal Results Lab / Micro Data Result Diagrams: 05/08/22 12:50 05/08/22 12:50 Labs: Laboratory Results - last 24 hr 05/08/22 12:50: WBC 11.6 H, RBC 4.46, Hgb 12.4, Hct 38.8, MCV 87.0, MCH 27.8, MCHC 32.0, RDW Std Deviation 49.5 H, RDW Coeff of Aubrie 15.7 H, Plt Count 294, MPV 10.8 05/08/22 12:50: Sodium 141, Potassium 2.4 L*, Chloride 106, Carbon Dioxide 26.0, Anion Gap 9, BUN 11, Creatinine 0.43 L, Estim Creat Clear Calc 39.17, Est GFR (MDRD) Af Amer 180, Est GFR (MDRD) Non-Af 149, BUN/Creatinine Ratio 25.5 H, Glucose 120 H, Calcium 9.1 05/08/22 13:40: Urine Color Yellow, Urine Clarity Clear, Urine pH 6.0, Ur Specific [place] 1.020, Urine Protein 30 H, Urine Glucose (UA) Normal, Urine Ketones 15 H, Urine Occult Blood 10 H, Urine Nitrite Positive H, Urine Bilirubin Negative, Urine Urobilinogen Normal, Ur Leukocyte Esterase 25 H Radiology Impression Lumbar Spine X-Ray 05/08/22 13:45 IMPRESSION: Degenerative changes of the spine, as detailed above. Stable loss of height of the L1 vertebrae as well as the T12 vertebrae and prior vertebroplasty of the T12 vertebrae. Electronically Signed: Crow Avalos MD at 14:10 EDT , Assessment & Plan Assessment/Plan (1) Lumbar compression fracture: (2) UTI (urinary tract infection): PLAN: Plan 1. Back pain secondary to lumbar compression fracture -Admit to PCU -PT and OT to eval and treat -Pain management regimen ordered -Case management consulted as patient is requesting to go to a SNF on discharge 2. Hypokalemia and hypomagnesemia -Potassium 2.4, magnesium 1.5 -Potassium chloride 40 mEq p.o. x1 given in ER, patient ordered potassium chloride 60 mEq p.o. x1 -Magnesium sulfate 2 g ordered -BMP ordered daily 3. Urinary tract infection -Urinalysis positive for protein, ketones, blood, nitrate, WBC 11.6 -Patient reports urinary frequency and urgency -Ceftriaxone initiated in the ER, will to continue -Urine culture pending 4. Hypertension -Vital signs per protocol, currently stable -Continue amlodipine, atenolol, isosorbide, lisinopril 5. Diabetes mellitus type 2 -Hold metformin -ACH S blood sugars are sliding scale insulin ordered DVT prophylaxis-subcu Lovenox This patient was seen by JORJE JimenesC under the supervision of Dr. Kimbrough. 29 minutes spent in clinical coordination of patient's plan of care. Documented by User: Dr. Saida Kimbrough DO 05/08/22 15:51 HPI - General General Date of Admission: 05/08/22 HPI Narrative This patient was seen in conjunction with Trang Zimmerman NP. The following represents my independent history and physical examination. Please see below for addendum the above. LARRY MALDONADO, is a 82 F who presented to the emergency department was [facility] on 05/08/2022 complaining of back pain. She currently is residing in independent living for the past several months and unfortunately has had multiple falls during that time period. The patient has a known history of lumbar compression fractures with previous kyphoplasty and is to be undergoing what sounds to be like another kyphoplasty tomorrow but she is unsure of the physician who was supposed to be doing this. She indicates she is tired of being in pain. She states the nursing staff will help her get up and move around but indicated that her children do not come and help as much as she needs. She reported to the emergency department staff that she tried to call them today but they did not answer or call back and did not show up to help her. She indicated that she thinks are tired of caring for her. She did indicate to the ER physician that she was tired of living in pain. She reports that she does have some intermittent shortness of breath however not having any in the last several days and that she had previous chest pain about a week ago but this is since resolved. She denies dysuria but is complaining of some urinary frequency. Denies any tingling numbness or weakness that is focal. Vital signs on presentation showed a temperature of 97.4, blood pressure of 150/114, heart rate was 83, respiratory rate was 16, oxygen saturations 100% on room air. Patient's heart rate did sound irregular on exam and her EKG showed atrial fibrillation. 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 CBC shows a mild leukocytosis with a white count of 11.6. Her chemistry panel showed marked hypokalemia with a potassium of 2.4 but was otherwise overall unremarkable. A magnesium level was obtained given her hypokalemia and she was found to have magnesium of 1.5. Her UA was positive for nitrites and leuk esterase as well as blood but differential is still pending. Given her back pain an x-ray of the lumbar spine was performed and showed degenerative changes of the spine with stable loss of height at the L1 vertebrae as well as the T12 vertebrae and prior vertebroplasty at the T12 vertebrae. Patient was admitted to PCU as observation for placement needs, electrolyte replacement. I do anticipate as long as insurance approves we will be able to obtain discharge in the next 24 hours. [facility] Medical History Abdominal pain Abnormal results of thyroid function studies Anemia Anxiety and depression Back pain Back pain due to injury CAD (coronary artery disease) Chest pain Closed left hip fracture Compression fracture Current use of insulin Dark stools Depression Depression Depression Diarrhea Essential hypertension Fall Gastroesophageal reflux disease Gastroesophageal reflux disease History of hemorrhoids History of pulmonary embolus (PE) Hyperlipidemia Iron deficiency anemia Irritable bowel Ischemic cardiomyopathy Low back pain Lumbar compression fracture Lumbar spinal stenosis Myocardial infarct Non-smoker Orthopedic aftercare Osteoporosis Post-menopausal Sleep apnea 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) Type II diabetes mellitus Vitamin D deficiency Home Medications lisinopril 20 mg tablet 40 mg PO DAILY blood pressure 06/14/21 [History Last Taken Unknown] nitroglycerin 0.4 mg sublingual tablet 0.4 mg sublingual Q5M PRN Cardiac/Chest Pain #25 tabs 12/23/21 [Rx Last Taken Unknown] amlodipine 5 mg tablet 5 mg PO DAILY blood pressure 12/30/21 [History Last Taken Unknown] atenolol 25 mg tablet 50 mg PO DAILY blood pressure 12/30/21 [History Last Taken Unknown] blood sugar diagnostic 12/30/21 [History Last Taken Unknown] blood-glucose meter 12/30/21 [History Last Taken Unknown] cholecalciferol (vitamin D3) 1,250 mcg (50,000 unit) capsule 1,250 mcg PO QWEEK vitamin 12/30/21 [History Last Taken Unknown] metformin 500 mg tablet 500 mg PO .daily at supper diabetes 12/30/21 [History Last Taken Unknown] isosorbide mononitrate 60 mg tablet,extended release 24 hr 60 mg PO DAILY heart #90 tabs 02/07/22 [Rx Last Taken Unknown] acetaminophen 500 mg tablet (Tylenol Extra Strength) 1,000 mg PO Q6H PRN Pain 02/21/22 [History Last Taken Unknown] Allergy/AdvReac Type Severity Reaction Status Date / Time latex Allergy Other Verified 03/11/22 10:02 Family History Father CVA (cerebral vascular accident) Mother Heart disease CAD (coronary artery disease) Sister CAD (coronary artery disease) Daughter CAD (coronary artery disease) Myocardial infarction Daughter Diabetes Surgical History H/O: hysterectomy History of carpal tunnel release History of cholecystectomy History of cholecystectomy History of coronary artery stent placement History of heart artery stent History of kyphoplasty History of permanent cardiac pacemaker placement (12/30/21) Hx of cholecystectomy Hx of knee surgery S/P hysterectomy Social History household members: none housing: house Smoking Status: Never smoker alcohol intake: never substance use type: does not use what type of physical activity do you participate in: none do you feel safe at home: Yes ROS Constitutional Constitutional: Reports fatigue and weakness; Denies anorexia, change in weight, chills, fever(s), malaise, night sweats, weight gain or weight loss Eyes Eyes: Denies blurry vision, change in vision, discharge from eye(s), double vision, erythema, eye pain, irritation or itchy eyes ENT HEENT: Denies abnormal hearing, dysphagia, ear pain, epistaxis, headache(s), hearing loss, loss taste/smell, nasal congestion, nasal discharge, post nasal drip, sinus pain, sinus pressure, sore throat or throat swelling Cardiovascular Cardiovascular: Reports chest pain; Denies claudication, edema, orthopnea, palpitations, paroxysmal nocturnal dyspnea or syncope Respiratory/Chest Respiratory/Chest: Reports shortness of breath at rest; Denies cough, hemoptysi s, shortness of breath with exertion or wheezing Gastrointestinal Gastrointestinal: Denies abdominal pain, constipation, diarrhea, dyspepsia, hematemesis, hematochezia, melena, nausea or vomiting Genitourinary Genitourinary: Reports urinary incontinence and urinary urgency; Denies dysuria, hematuria, nocturia, oliguria, polyuria, urinary frequency or urinary hesitancy Musculoskeletal Musculoskeletal: Reports back pain, joint pain, joint stiffness, limited range of motion, muscle weakness and stiffness; Denies extremity pain, joint swelling or neck pain Integumentary Integumentary: Denies dry skin, jaundice, lesions, pruritus, rash or wounds Neurologic Neurologic: Denies abnormal gait, abnormal speech, confusion, dizziness, focal weakness, headache(s), lack of coordination, numbness, seizures, sensory deficit, tingling, tremor(s) or weakness Psychiatric Psychiatric: Denies anxiety, depression, homicidal ideation or suicidal ideation Endocrine Endocrinology: Denies change in body appearance, cold intolerance, heat intolerance, polydipsia or polyuria Hematologic/Lymphatic Hematologic/Lymphatic: Denies anemia, easy bleeding, easy bruising or lymphadenopathy Physical Exam Const alert, oriented x3 and well nourished Constitutional Narrative: Elderly white female sitting up in bed trying to call her family on the phone, nursing at bedside, patient appears comfortable nontoxic at this time General Appearance: cooperative HEENT normocephalic, head/scalp atraumatic, moist oral mucous membranes and oropharynx normal HEENT Narrative: Edentulous, Mallampati 2, no thrush Eyes PERRL and EOMs intact bilaterally Eyes Narrative: Conjunctiva are normal, no scleral icterus Neck No no lymphadenopathy, No no JVD, thyroid normal and No no carotid bruits General: trachea midline Resp normal respiratory effort, normal air movement and clear to auscultation bilaterally Cardio regular rate, S1 normal heart sound, S2 normal heart sound, no murmurs, no rub, no gallops and peripheral pulses 2+ throughout Cardio Narrative: Irregular rhythm-currently rate controlled Rhythm: abnormal rhythm GI normal to inspection, nondistended, normoactive bowel sounds, soft to palpation, non-tender and non-distended Extremity normal capillary refill and no clubbing, cyanosis or edema Skin no rashes or lesions noted, no wounds, skin turgor normal, no jaundice, no petechiae and no mottling Neuro CN's II-XII intact bilaterally, no focal motor deficits and no sensory deficits noted Psych thought process normal, cooperative and affect normal Psych Narrative: Very pleasant Appearance: appropriate Results Lab / Micro Data Result Diagrams: 05/08/22 12:50 05/08/22 12:50 Assessment & Plan Assessment/Plan (1) Lumbar compression fracture: (2) UTI (urinary tract infection): PLAN: Plan Assessment: Back pain secondary to L1 compression fracture Debility/falls Suspected urinary tract infection Hypokalemia Hypomagnesemia Hypertension History of tachybradycardia syndrome status post pacemaker DM-2 Osteoporosis Vitamin D deficiency Plan: -With marked hypokalemia we will admit patient to TCU -Total replacement of 120 mEq -Replace magnesium -Repeat electrolytes in a.m. -Patient having some mild tachycardia with her tachybradycardia syndrome--> continue home atenolol and as needed metoprolol for heart rate greater than 110 -We will cycle cardiac enzymes -Urine culture pending -UA was consistent with infection--> start ceftriaxone -PT/OT consultation--> patient needs to discharge from independent living to likely SNF for higher level of care -Continue home medications -Low-dose Oxy, gabapentin, lidocaine patch for back pain -Probable discharge in the next 24 hours as long as pre-CERT is obtained for placement--> patient with commercial Medicare Charges/Coding Visit Charges Inpatient E&M: 78709 Init Hosp L3
[2022-05-08 14:37] LABS: Magnesium 1.5 mg/dL (1.6-2.6)
[2022-05-08] MEDS: Ceftriaxone 1 GM/50 ML BAG IV (14:39)
--- NOTE | 2022-05-08 15:25 | EKG12_ITS ---
Test Reason : repeat Blood Pressure : / mmHG Vent. Rate : 108 BPM Atrial Rate : 000 BPM P-R Int : 000 ms QRS Dur : 150 ms QT Int : 338 ms P-R-T Axes : 000 -39 136 degrees QTc Int : 452 ms Atrial fibrillation with rapid ventricular response with premature ventricular or aberrantly conducte d complexes Left axis deviation Left bundle branch block Abnormal ECG No previous ECGs available Confirmed by JIMMY PEARSON, VALERIA ([id number]), editorial intern JENIFER WALLACE ([id number]) on 05/14/2022 1:09:27 PM Referred By: Luis E Confirmed By:VALERIA MARQUEZ MD
--- NOTE | 2022-05-08 15:39 | NURSING ---
Ailyn and Laury called and messages left to call in with a home med list.
[2022-05-08] MEDS: Potassium Chloride Oral Tablet 20 MEQ 60 MEQ PO (16:07)
[2022-05-08] MEDS: 0.9% Saline Lock 10 ML Syringe IV (16:08)
[2022-05-08] MEDS: Metoprolol Tartrate 5 MG/5 ML Vial IV (16:08)
[2022-05-08] MEDS: Gabapentin 100 MG Capsule PO (16:08)
[2022-05-08 16:35] LABS: Bedside Glucose 102 mg/dL (74-106)
[2022-05-08] MEDS: Lidocaine 5% Patch 1 PATCH TOPICAL (17:28)
[2022-05-08] MEDS: Atenolol 50 MG Tablet PO (17:28)
[2022-05-08] MEDS: Menthol/Lanolin/Calamine/Znox 113 GM Tube 1 APPLIC TOPICAL (17:28)
[2022-05-08 17:29] LABS: Troponin-I HS 117 pg/mL (3.0-54.0)
--- NOTE | 2022-05-08 17:40 | NURSING ---
hr again 130's 140 after turning and repositioning. ok to give po atentolol. pt unsure but didnt think took very many meds today unsure of if took any past few days
[2022-05-08 19:18] LABS: Troponin-I HS 223 pg/mL (3.0-54.0)
--- NOTE | 2022-05-08 19:54 | ECHOD_ITS ---
Reason For Study: OTHER Procedure This was a 2D Doppler, Color Flow transthoracic echocardiogram. Exam performed portable in patient room. Left Ventricle Moderately dilated left ventricle. The 3D full volume ejection fraction is 20-25 %. The estimated ejection fraction is 20-25 %. Right Ventricle Normal right ventricle. Mild segmental dysfunction of right ventricle. Atria The left atrium is moderately enlarged. Normal right atrium. Mitral Valve There is moderate to severe mitral annular calcification. Moderately severe (3+) mitral valve insufficiency. Tricuspid Valve Normal tricuspid valve. Mild tricuspid valve insufficiency. Aortic Valve Aortic sclerosis, no stenosis. Pulmonic Valve The pulmonic valve is not well visualized. Great Vessels Normal aortic root. Pericardium/Pleural No pericardial effusion. MMode/2D Measurements & Calculations LVIDd: 5.3 cm IVSd: 0.80 cm LVOT diam: 1.9 cm LVIDs: 4.6 cm LVPWd: 0.86 cm LVOT area: 2.9 cm2 RVDd: 3.3 cm FS: 13.6 % Ao root diam: 2.8 cm LAV(MOD-bp): 72.5 ml LVAd ap4: 28.5 cm2 LAV(MOD-bp) Indexed: 49.2 ml/m2 LVLd ap4: 7.4 cm LAV(MOD-sp2): 99.7 ml EDV(MOD-sp4): 88.9 ml LAV(MOD-sp4): 52.3 ml EDV(sp4-el): 92.7 ml LVAs ap4: 24.2 cm2 LVLs ap4: 7.0 cm ESV(MOD-sp4): 68.5 ml ESV(sp4-el): 70.7 ml EF(MOD-sp4): 22.9 % EF(sp4-el): 23.7 % LVAd ap2: 29.4 cm2 SV(MOD-sp4): 20.4 ml SV(MOD-sp2): 23.6 ml LVLd ap2: 8.0 cm EDV(MOD-sp2): 89.4 ml EDV(sp2-el): 91.7 ml LVAs ap2: 23.6 cm2 LVLs ap2: 7.2 cm ESV(MOD-sp2): 65.8 ml ESV(sp2-el): 65.3 ml EF(MOD-sp2): 26.4 % SV(sp4-el): 22.0 ml LA dimension(2D): 4.4 cm LA A4 area: 19.0 cm2 RA A4 area: 12.9 cm2 Time Measurements MV dec time: 0.26 sec Doppler Measurements & Calculations MV E max robel: 118.8 cm/sec Lat Peak E' Robel: 5.6 cm/sec Med Peak E' Robel: 2.8 cm/sec MV A max robel: 109.5 cm/sec E/E' lat: 21.3 E/E' med: 42.1 MV E/A: 1.1 MV V2 max: 128.4 cm/sec Ao V2 max: 108.9 cm/sec MV max P.6 mmHg MV dec slope: 466.0 cm/sec2 Ao max P.8 mmHg MV V2 mean: 80.7 cm/sec Ao V2 mean: 78.6 cm/sec MV mean P.9 mmHg Ao mean P.8 mmHg MV V2 VTI: 45.4 cm Ao V2 VTI: 26.3 cm MVA(VTI): 1.2 cm2 FABRIZIO(I,D): 2.1 cm2 FABRIZIO(V,D): 2.1 cm2 LV V1 max: 78.6 cm/sec SV(LVOT): 56.1 ml PA V2 max: 65.5 cm/sec LV V1 max P.5 mmHg PA V2 mean: 48.5 cm/sec LV V1 mean P.3 mmHg LV V1 mean: 53.6 cm/sec LV V1 VTI: 19.6 cm TR max robel: 266.1 cm/sec TR max P.3 mmHg ECHO/Echo Complete Interpretation Summary The estimated ejection fraction is 20-25 %. Severe LV systolic dysfunction with global LV Hypokinesia Significant change in LV systolic function from previous Echo in 06/12/2020 Ordering Physician: Saida Kimbrough Referring Physician: Mary Azevedo Performed By: Geneva Pearce RCS
[2022-05-08] MEDS: Acetaminophen 500 MG Tablet 1000 MG PO (21:00)
[2022-05-08] MEDS: oxyCODONE 5 MG Tablet 2.5 MG PO (21:00)
[2022-05-08 22:05] LABS: Bedside Glucose 154 mg/dL (74-106)
[2022-05-08 23:39] LABS: Troponin-I HS 498 pg/mL (3.0-54.0)
[2022-05-09] VITALS (9 sets, daily range): BP systolic 101–149; BP diastolic 45–64; PULSE 59–64; RESP 16–20; TEMP 36.1–36.9; O2SAT 94–98
[2022-05-09 05:28] LABS: Absolute Lymphocyte Count 2.08 X10^3/uL (0.83-4.51); Absolute Neutrophil Count 5.3 X10^3/uL (2.0-7.7); Basophil# 0.05 X10^3/uL; Basophil% 0.6 % (0-1); Eosinophil# 0.62 X10^3/uL; Eosinophils% 7.1 % (0-5); Hematocrit 32.8 % (37-47); Hemoglobin 10.5 g/dL (12.0-15.0); Lymphocyte # 2.08 X10^3/ul (0.83-4.51); Lymphocyte % 23.8 % (19-41); Mean Corpuscular Hgb 27.9 pg (27.0-32.0); Mean Corpuscular Volume 87.2 fL (81-99); Mean Platelet Vol. 10.9 fl (6.2-12.0); Monocyte# 0.62 X10^3/uL; Monocyte% 7.1 % (0-10); NRBC Flagged by Analyzer 0 % (0-5); Neutrophil # 5.33 X10^3/uL (2.7-7.7); Neutrophil % 60.8 % (47-70); Platelet Count 302 K/mm3 (150-450); RBC Distribution Width CV 15.7 % (11.6-14.6); RBC Distribution Width SD 50.1 fl (35.1-43.9); Red Blood Count 3.76 M/mm3 (4.2-5.4); White Blood Count 8.8 K/mm3 (4.4-11.0)
[2022-05-09 06:17] LABS: ALB/GLOB Ratio 1.1 RATIO (0.9-2.4); AST(SGOT) 11 U/L (15-37); Alanine Aminotransfer ALT/SGPT 10 U/L (13-56); Albumin, Serum 2.8 g/dL (3.2-5.0); Alkaline Phosphatase 77 U/L (45-117); Anion Gap 6 (5-15); BUN 11 mg/dL (7-18); BUN/Creat Ratio 25.8 RATIO (10-20); Calcium,Total 8.8 mg/dL (8.5-10.1); Chloride 110 mmol/L (98-107); Creatinine, Serum 0.43 mg/dL (0.55-1.02); EST Glomerular Filtration Rate 151 mL/min (>60); Est Glom Filt Rate - Afr Amer 183 mL/min (>60); Estimated Creatinine Clearance 38.92 ml/min; Globulin 2.6 g/dL (2.2-4.2); Glucose 113 mg/dL (74-106); Magnesium 1.9 mg/dL (1.6-2.6); Phosphorus 2.9 mg/dL (2.5-4.9); Potassium 3.5 mmol/L (3.5-5.1); Protein, Total 5.4 g/dL (6.4-8.2); Sodium Level 141 mmol/L (136-145); Thyroid Stim Hormone (TSH) < 0.01 uIU/mL (0.358-3.74); Troponin-I HS 507 pg/mL (3.0-54.0)
--- NOTE | 2022-05-09 06:22 | PCM.PN.BLA ---
Progress Note Elevated troponin which trended up but less than previous. No chest pain. Aspirin 324 mg x 1 and then 81 mg daily ordered
[2022-05-09] MEDS: Menthol/Lanolin/Calamine/Znox 113 GM Tube 1 APPLIC TOPICAL ×3 (06:31→21:34)
[2022-05-09] MEDS: Aspirin 325 MG Tablet PO (06:34)
[2022-05-09] MEDS: Acetaminophen 500 MG Tablet 1000 MG PO ×3 (06:35→21:36)
[2022-05-09] MEDS: oxyCODONE 5 MG Tablet 2.5 MG PO ×3 (06:35→21:36)
[2022-05-09 07:15] LABS: Bedside Glucose 115 mg/dL (74-106)
[2022-05-09] MEDS: Enoxaparin 40 MG/0.4 ML Syringe SC (09:28)
[2022-05-09] MEDS: Isosorbide Mononitrate 60 MG Tablet PO (09:28)
[2022-05-09] MEDS: Lidocaine 5% Patch 1 PATCH TOPICAL (09:29)
[2022-05-09] MEDS: Lisinopril 40 MG Tablet PO (09:29)
[2022-05-09] MEDS: amLODIPine 5 MG Tablet PO (09:29)
[2022-05-09] MEDS: Ceftriaxone 1 GM/50 ML BAG IV (09:31)
[2022-05-09] MEDS: Atenolol 50 MG Tablet PO (09:31)
[2022-05-09] MEDS: 0.9% Saline Lock 10 ML Syringe IV (09:32)
--- NOTE | 2022-05-09 09:40 | CASEMGMT ---
SW met with patient this am to discuss SNF placement. Patient has a list of SNF's that was given to her by the ED SW. Patient was not sure about where she would want to go at d/c. She was in agreement with SW contacting her daughter Ailyn regarding where patient should go at discharge. Patient did mention [facility]. SW will call Ailyn. Shirlene Bruno MSW ASHLEY
[2022-05-09] MEDS: Gabapentin 100 MG Capsule PO ×3 (09:55→18:20)
--- NOTE | 2022-05-09 10:14 | CASEMGMT ---
THEODORE called patient's daughter Ailyn and left her a voice mail requesting a return call. Shirlene Bruno MILLING PLANER OPERATORPedro RAMIREZ
--- NOTE | 2022-05-09 10:40 | NURSING ---
pt asking to get back in bed d/t sitting up hurting back more. therapy to come and see pt and eval while gets up from chair to bed. oxycodone given for pain
--- NOTE | 2022-05-09 11:20 | PN.HOSP_ITS ---
Documented by User: Trang Chou NP-C 05/09/22 11:26 Subjective Subjective Patient seen and examined. Patient lying in bed no distress noted. Patient alert and oriented x3 this morning however still confused about some details. Objective Data Objective Data Vital Signs: Vital Signs Temp Pulse Resp BP Pulse Ox O2 Del Method 98.0 F 61 16 149/64 H 98 Room Air 05/09/22 10:00 05/09/22 10:00 05/09/22 10:00 05/09/22 10:00 05/09/22 10:00 05/09/22 10:00 Oxygen Delivery Method Room Air Weight: 125 lb 4.8 oz Body Mass Index (BMI) 27.1 Intake & Output: Intake and Output for Last 24 Hours 05/07/22 05/08/22 05/09/22 23:59 23:59 23:59 Intake Total 1074 / 1074 50 / 50 Balance 1074 / 1074 50 / 50 Lab / Micro Data Result Diagrams: 05/09/22 04:52 05/09/22 04:52 Labs: Laboratory Results - last 24 hr 05/08/22 12:50: WBC 11.6 H, RBC 4.46, Hgb 12.4, Hct 38.8, MCV 87.0, MCH 27.8, MCHC 32.0, RDW Std Deviation 49.5 H, RDW Coeff of Aubrie 15.7 H, Plt Count 294, MPV 10.8 05/08/22 12:50: Sodium 141, Potassium 2.4 L*, Chloride 106, Carbon Dioxide 26.0, Anion Gap 9, BUN 11, Creatinine 0.43 L, Estim Creat Clear Calc 39.17, Est GFR (MDRD) Af Amer 180, Est GFR (MDRD) Non-Af 149, BUN/Creatinine Ratio 25.5 H, Glucose 120 H, Calcium 9.1 05/08/22 12:50: Magnesium 1.5 L 05/08/22 13:40: Urine Color Yellow, Urine Clarity Clear, Urine pH 6.0, Ur Specific [place] 1.020, Urine Protein 30 H, Urine Glucose (UA) Normal, Urine Ketones 15 H, Urine Occult Blood 10 H, Urine Nitrite Positive H, Urine Bilirubin Negative, Urine Urobilinogen Normal, Ur Leukocyte Esterase 25 H 05/08/22 16:04: POC Glucose 102 05/08/22 16:40: Troponin I High Sens 117 H 05/08/22 18:30: Troponin I High Sens 223 H* 05/08/22 21:07: POC Glucose 154 H 05/08/22 22:40: Troponin I High Sens 498 H* 05/09/22 04:52: WBC 8.8, RBC 3.76 L, Hgb 10.5 L, Hct 32.8 L, MCV 87.2, MCH 27.9, MCHC 32.0, RDW Std Deviation 50.1 H, RDW Coeff of Aubrie 15.7 H, Plt Count 302, MPV 10.9, Immature Gran % (Auto) 0.600, Neut % (Auto) 60.8, Lymph % (Auto) 23.8, Hendricks % (Auto) 7.1, Eos % (Auto) 7.1 H, Baso % (Auto) 0.6, Absolute Neuts (auto) 5.3, Absolute Lymphs (auto) 2.08, Nucleated RBC % 0 05/09/22 04:52: Sodium 141, Potassium 3.5, Chloride 110 H, Carbon Dioxide 25.0, Anion Gap 6, BUN 11, Creatinine 0.43 L, Estim Creat Clear Calc 38.92, Est GFR (MDRD) Af Amer 183, Est GFR (MDRD) Non-Af 151, BUN/Creatinine Ratio 25.8 H, Glucose 113 H, Calcium 8.8, Phosphorus 2.9, Magnesium 1.9, Total Bilirubin 0.60, AST 11 L, ALT 10 L, Alkaline Phosphatase 77, Troponin I High Sens 507 H*, Total Protein 5.4 L, Albumin 2.8 L, Globulin 2.6, Albumin/Globulin Ratio 1.1, TSH < 0.01 L 05/09/22 06:32: POC Glucose 115 H Radiography Diagnostic Testing: Radiology Impression Lumbar Spine X-Ray 05/08/22 13:45 IMPRESSION: Degenerative changes of the spine, as detailed above. Stable loss of height of the L1 vertebrae as well as the T12 vertebrae and prior vertebroplasty of the T12 vertebrae. Electronically Signed: Crow Avalos MD at 14:10 EDT , Physical Exam Const alert, oriented x3 and no apparent distress HEENT head/scalp atraumatic and moist oral mucous membranes Head and Scalp: normocephalic Eyes conjunctivae normal and no scleral icterus Neck no lymphadenopathy and supple Resp normal respiratory effort and clear to auscultation bilaterally Cardio regular rate, regular rhythm, S1 normal heart sound and S2 normal heart sound GI normal to inspection, nondistended, normoactive bowel sounds, soft to palpation and non-tender Extremity normal to inspection, full ROM and no clubbing, cyanosis or edema Skin no rashes or lesions noted, no wounds and skin turgor normal Neuro oriented x3, moves all extremities, no focal motor deficits and no sensory deficits noted Assessment & Plan Assessment/Plan (1) UTI (urinary tract infection): PLAN: Plan 1.? Back pain secondary to lumbar compression fracture -PT and OT following -Pain management regimen ordered -Case management consulted as patient is requesting to go to a SNF on discharge -Left a message with Dr. Hernandez as patient was supposed to have a procedure in his office today 2.? Hypokalemia and hypomagnesemia -Potassium 3.5, magnesium 1.9 -Patient received potassium and magnesium replaced yesterday -BMP ordered daily 3.? Urinary tract infection -Urinalysis positive for protein, ketones, blood, nitrate, WBC improved -Patient reports urinary frequency and urgency -continue ceftriaxone -Urine culture pending 4.? Hypertension -Vital signs per protocol, currently stable -Continue amlodipine, atenolol, isosorbide, lisinopril 5.? Diabetes mellitus type 2 -Hold metformin -ACH S blood sugars are sliding scale insulin ordered DVT prophylaxis-subcu Lovenox This patient was seen by Trang Chou NP-C under the supervision of Dr. Villa. 13 minutes spent in clinical coordination of patient's plan of care. Documented by User: Dr. Ene Villa MD 05/09/22 17:17 Objective Data Lab / Micro Data Result Diagrams: 05/09/22 04:52 05/09/22 04:52 Assessment & Plan Assessment/Plan (1) UTI (urinary tract infection): Charges/Coding Addendum Addendum: Patient seen by Trang RECINOSC under my supervision Patient seen and examined. She was admitted via the ED with a complaitn of mechanical falls over the past few months at her independent living facility. She had a history of compression fractures was due to follow-up with pain manag emjones. She still complains of back pain today. She denies any fever, chills, nausea, vomiting, diarrhea, or any urinary symptoms. Review of systems is otherwise negative. O/E: Const alert, oriented x3 and no apparent distress, frail General Appearance: cooperative HEENT normocephalic, head/scalp atraumatic, hearing grossly normal bilaterally and moist oral mucous membranes Eyes PERRL, EOMs intact bilaterally and conjunctivae normal Neck no lymphadenopathy, supple and no JVD Resp normal respiratory effort and clear to auscultation bilaterally Cardio regular rate, regular rhythm, S1 normal heart sound, S2 normal heart sound and no murmurs GI normal to inspection, nondistended, normoactive bowel sounds and soft to palpation Extremity normal to inspection, full ROM and no clubbing, cyanosis or edema Skin no rashes or lesions noted Neuro oriented x3, CN's II-XII intact bilaterally and moves all extremities Sensorium / Orientation: awake and alert Psych affect normal Assessment and plan #Intractable back pain due to lumbar compression fracture * PT/OT on board. Fall precautions * case management on board * on pain medication * has had kyphoplasty in the past * #Hypokalemia and hypomagnesemia * replete as per protocol and trend,. #UTI * on IV ceftriaxone. * urine culture pending * #Hypertension * on amlodipine, atenolol, imdur and lisinopril * #History of tachybrady syndrome * s/p pacemaker placement * #TYpe 2 diabetes mellitus: metformin held. ISS. Accuchecks ACHS DVT prophylaxis: lovenox Rest as per Trang Chou NP-C's note, which I have reviewed, and endorsed. Time spent on care of patient today: 20 mins, with Trang Chou spending 13 mins, making a total of 33 mins. Visit Charges Inpatient E&M: 74780 Subs Hosp L2
[2022-05-09] MEDS: Insulin Lispro 100 UNIT/ML INSULN.PEN SC (11:25)
[2022-05-09 11:45] LABS: Bedside Glucose 156 mg/dL (74-106)
--- NOTE | 2022-05-09 12:49 | CASEMGMT ---
SW spoke with patient and let her know SW cannot get a hold of her daughter Ailyn. SW did try 2 different times and it went straight to her voice mail. SW asked patient if she wants to go to TCU or if she wants SW to wait and talk with her daughter. Patient said TCU is fine. THEODORE spoke with Amy in TCU and they are able to accept patient. Amy will start the pre-cert. Plan: d/c to [facility]
--- NOTE | 2022-05-09 15:34 | CASEMGMT ---
THEODORE saw a note on patient's chart that indicated patient's daughter Ailyn is out of town until Thursday and to call patient's granddaughter Gregorio. THEODORE called this number and spoke with Gregorio. THEODORE let Gregorio know that patient has chosen to go to [facility] for her short term rehab. THEODORE let Gregorio know that patient will wait in the hospital until insurance approves her. Plan: [facility] pending pre-cert. Shirlene RAMIREZ
[2022-05-09 17:05] LABS: Bedside Glucose 146 mg/dL (74-106)
[2022-05-09] MEDS: Glucerna Shake 120 ML LIQUID PO (21:35)
[2022-05-10] VITALS (10 sets, daily range): BP systolic 123–140; BP diastolic 39–59; PULSE 59–65; RESP 18–20; TEMP 36.4–36.6; O2SAT 95–99
[2022-05-10 01:16] LABS: Bedside Glucose 130 mg/dL (74-106)
[2022-05-10] MEDS: Menthol/Lanolin/Calamine/Znox 113 GM Tube 1 APPLIC TOPICAL ×3 (05:29→21:33)
[2022-05-10 06:35] LABS: Bedside Glucose 122 mg/dL (74-106)
[2022-05-10 07:18] LABS: Absolute Lymphocyte Count 1.68 X10^3/uL (0.83-4.51); Absolute Neutrophil Count 5.5 X10^3/uL (2.0-7.7); Basophil# 0.02 X10^3/uL; Basophil% 0.2 % (0-1); Eosinophil# 0.37 X10^3/uL; Eosinophils% 4.5 % (0-5); Hematocrit 29.7 % (37-47); Hemoglobin 9.3 g/dL (12.0-15.0); Lymphocyte # 1.68 X10^3/ul (0.83-4.51); Lymphocyte % 20.5 % (19-41); Mean Corp Hgb Conc 31.3 g/dL (32-36); Mean Corpuscular Hgb 27.4 pg (27.0-32.0); Mean Corpuscular Volume 87.4 fL (81-99); Mean Platelet Vol. 11.5 fl (6.2-12.0); Monocyte# 0.59 X10^3/uL; Monocyte% 7.2 % (0-10); NRBC Flagged by Analyzer 0 % (0-5); Neutrophil # 5.49 X10^3/uL (2.7-7.7); Neutrophil % 67.2 % (47-70); Platelet Count 229 K/mm3 (150-450); RBC Distribution Width CV 15.9 % (11.6-14.6); RBC Distribution Width SD 51.2 fl (35.1-43.9); White Blood Count 8.2 K/mm3 (4.4-11.0)
[2022-05-10 07:34] LABS: AST(SGOT) 11 U/L (15-37); Alanine Aminotransfer ALT/SGPT 10 U/L (13-56); Albumin, Serum 2.6 g/dL (3.2-5.0); Alkaline Phosphatase 71 U/L (45-117); Anion Gap 5 (5-15); BUN 13 mg/dL (7-18); BUN/Creat Ratio 31.7 RATIO (10-20); Calcium,Total 8.8 mg/dL (8.5-10.1); Chloride 110 mmol/L (98-107); Creatinine, Serum 0.41 mg/dL (0.55-1.02); EST Glomerular Filtration Rate 158 mL/min (>60); Est Glom Filt Rate - Afr Amer 191 mL/min (>60); Estimated Creatinine Clearance 38.92 ml/min; Globulin 2.7 g/dL (2.2-4.2); Glucose 119 mg/dL (74-106); Potassium 3.4 mmol/L (3.5-5.1); Protein, Total 5.3 g/dL (6.4-8.2); Sodium Level 141 mmol/L (136-145)
[2022-05-10] MEDS: Gabapentin 100 MG Capsule PO ×3 (08:45→16:31)
[2022-05-10] MEDS: Glucerna Shake 120 ML LIQUID PO ×2 (08:45→21:33)
[2022-05-10] MEDS: oxyCODONE 5 MG Tablet 2.5 MG PO ×2 (08:45→16:33)
[2022-05-10] MEDS: Enoxaparin 40 MG/0.4 ML Syringe SC (08:46)
[2022-05-10] MEDS: amLODIPine 5 MG Tablet PO (08:46)
[2022-05-10] MEDS: Lidocaine 5% Patch 1 PATCH TOPICAL (08:46)
[2022-05-10] MEDS: Acetaminophen 500 MG Tablet 1000 MG PO ×2 (08:46→16:33)
[2022-05-10] MEDS: Aspirin 81 MG TAB.CHEW PO (08:47)
[2022-05-10] MEDS: Lisinopril 40 MG Tablet PO (08:47)
[2022-05-10] MEDS: Atenolol 50 MG Tablet PO (08:47)
[2022-05-10] MEDS: Isosorbide Mononitrate 60 MG Tablet PO (08:47)
[2022-05-10] MEDS: Potassium Chloride Oral Tablet 20 MEQ 40 MEQ PO (08:48)
[2022-05-10] MEDS: Ceftriaxone 1 GM/50 ML BAG IV (08:58)
--- NOTE | 2022-05-10 10:40 | PN.HOSP_ITS ---
Documented by User: Trang Chou NP-C 05/10/22 10:45 Subjective Subjective Patient seen and examined. Patient lying in bed eating breakfast, no distress noted. Objective Data Objective Data Vital Signs: Vital Signs Temp Pulse Resp BP Pulse Ox O2 Del Method 97.7 F L 65 18 131/41 H 96 Room Air 05/10/22 08:30 05/10/22 08:30 05/10/22 08:30 05/10/22 08:30 05/10/22 08:30 05/10/22 08:30 Oxygen Delivery Method Room Air Weight: 125 lb 4.796 oz Body Mass Index (BMI) 27.1 Intake & Output: Intake and Output for Last 24 Hours 05/08/22 05/09/22 05/10/22 23:59 23:59 23:59 Intake Total 1074 / 1074 1230 / 1230 150 / 150 Output Total 300 / 300 Balance 1074 / 1074 930 / 930 150 / 150 Medical Nutrition Assessment Dietitian: Malnutrition Criteria Met Start: 05/09/22 15:08 Freq: Status: Active Protocol: Document 05/09/22 15:08 AG (Rec: 05/09/22 15:08 [id number]) Nutrition Malnutrition Evidence of Malnutrition Exists Yes Malnutrition (severe): Chronic Evidenced By Suboptimal Energy Intake ( Severe),Weight Loss (Severe) Clinical Problem Chronic Disease or Condition Related Malnutrition Etiology severe, chronic malnutrition related to inadequate energy intake d/t decreased appetite Signs/Symptoms as evidenced by unintentional wt loss of 22.6#/15% wt loss x 4 months, estimated PO intake meeting <75% of estimated energy needs >3 months Status Active Problem Recommendation Dietitian Recommendations/Changes will liberalize diet to consistent CHO, no added salt diet; glucerna 120mL 4x/day w/ medpass for additional calories/protein if consumed. Soft/cut up foods d/t dentition- recommend speech therapy consult if issues chewing persist. Lab / Micro Data Result Diagrams: 05/10/22 06:20 05/10/22 06:20 Labs: Laboratory Results - last 24 hr 05/09/22 11:23: POC Glucose 156 H 05/09/22 16:47: POC Glucose 146 H 05/09/22 21:34: POC Glucose 130 H 05/10/22 06:16: POC Glucose 122 H 05/10/22 06:20: WBC 8.2, RBC 3.40 L, Hgb 9.3 L, Hct 29.7 L, MCV 87.4, MCH 27.4, MCHC 31.3 L, RDW Std Deviation 51.2 H, RDW Coeff of Aubrie 15.9 H, Plt Count 229, MPV 11.5, Immature Gran % (Auto) 0.400, Neut % (Auto) 67.2, Lymph % (Auto) 20.5, Elk % (Auto) 7.2, Eos % (Auto) 4.5, Baso % (Auto) 0.2, Absolute Neuts (auto) 5.5, Absolute Lymphs (auto) 1.68, Nucleated RBC % 0 05/10/22 06:20: Sodium 141, Potassium 3.4 L, Chloride 110 H, Carbon Dioxide 26.0, Anion Gap 5, BUN 13, Creatinine 0.41 L, Estim Creat Clear Calc 38.92, Est GFR (MDRD) Af Amer 191, Est GFR (MDRD) Non-Af 158, BUN/Creatinine Ratio 31.7 H, Glucose 119 H, Calcium 8.8, Total Bilirubin 0.50, AST 11 L, ALT 10 L, Alkaline Phosphatase 71, Total Protein 5.3 L, Albumin 2.6 L, Globulin 2.7, Albumin /Globulin Ratio 1.0 Micro: Microbiology 05/08/22 13:40 Urine, Catheterized Urine Culture - Final Klebsiella oxytoca Radiography Diagnostic Testing: Radiology Impression Echocardiogram 05/08/22 19:54 Interpretation Summary The estimated ejection fraction is 20-25 %. Severe LV systolic dysfunction with global LV Hypokinesia Significant change in LV systolic function from previous Echo in 06/12/2020 Ordering Physician: Saida Kimbrough Referring Physician: Mary Azevedo Performed By: Geneva Pearce RCS Physical Exam Const alert and no apparent distress Orientation / Consciousness: oriented to person, oriented to place and confused HEENT head/scalp atraumatic and moist oral mucous membranes Eyes conjunctivae normal and no scleral icterus Neck no lymphadenopathy and supple General: trachea midline Resp normal respiratory effort, normal air movement and clear to auscultation bilaterally Cardio regular rate, S1 normal heart sound, S2 normal heart sound and peripheral pulses 2+ throughout Cardio Narrative: Irregular rhythm-currently rate controlled Rhythm: abnormal rhythm GI normal to inspection, nondistended, normoactive bowel sounds, soft to palpation and non-tender Extremity normal to inspection, full ROM and no clubbing, cyanosis or edema Skin no rashes or lesions noted, no wounds and skin turgor normal General Skin Exam: no breakdown Lesions: no lesions Rashes: no rashes Neuro oriented x3, moves all extremities, no focal motor deficits and no sensory deficits noted Psych cooperative and affect normal Psych Narrative: Very pleasant Appearance: appropriate Assessment & Plan Assessment/Plan (1) UTI (urinary tract infection): PLAN: Plan 1.? Back pain secondary to lumbar compression fracture -PT and OT following -Pain management regimen ordered -Case management consulted as patient is requesting to go to a SNF on discharge -With Dr. Hernandez on 05/09/2022, will reevaluate patient's condition on Thursday as patient was post to have kyphoplasty on day of admission 2.? Hypokalemia and hypomagnesemia -Potassium 3.4, magnesium 1.9 -Potassium chloride 40 meq p.o. x1 -BMP ordered daily 3.? Urinary tract infection -Urinalysis positive for protein, ketones, blood, nitrate, WBC improved -Patient reports urinary frequency and urgency -continue ceftriaxone -Urine culture pending -Patient having loose stools this morning, likely secondary to antibiotics however send for C. difficile and enteric panel 4.? Hypertension -Vital signs per protocol, currently stable -Continue amlodipine, atenolol, isosorbide, lisinopril 5.? Diabetes mellitus type 2 -Hold metformin -ACH S blood sugars are sliding scale insulin ordered DVT prophylaxis-subcu Lovenox This patient was seen by JORJE JimenesC under the supervision of Dr. Villa. 13 minutes spent in clinical coordination of patient's plan of care. Documented by User: Dr. Ene Villa MD 05/10/22 14:39 Objective Data Lab / Micro Data Result Diagrams: 05/10/22 06:20 05/10/22 06:20 Assessment & Plan Assessment/Plan (1) UTI (urinary tract infection): Charges/Coding Addendum Addendum: Patient seen by Trang RECINOSC under my supervision Patient seen and examined. She has no active complaints today and had an uneve ntful night. Review of systems is otherwise negative. O/E: Const alert, oriented x3 and no apparent distress, frail General Appearance: cooperative HEENT normocephalic, head/scalp atraumatic, hearing grossly normal bilaterally and moist oral mucous membranes Eyes PERRL, EOMs intact bilaterally and conjunctivae normal Neck no lymphadenopathy, supple and no JVD Resp normal respiratory effort and clear to auscultation bilaterally Cardio regular rate, regular rhythm, S1 normal heart sound, S2 normal heart sound and no murmurs GI normal to inspection, nondistended, normoactive bowel sounds and soft to palpation Extremity normal to inspection, full ROM and no clubbing, cyanosis or edema Skin no rashes or lesions noted Neuro oriented x3, CN's II-XII intact bilaterally and moves all extremities Sensorium / Orientation: awake and alert Psych affect normal Assessment and plan #Intractable back pain due to lumbar compression fracture * PT/OT on board. Fall precautions * case management on board * on pain medication * has had kyphoplasty in the past #Hypokalemia and hypomagnesemia * replete as per protocol and trend,. * #UTI * on IV ceftriaxone. * urine culture pending #Hypertension * on amlodipine, atenolol, imdur and lisinopril #History of tachybrady syndrome * s/p pacemaker placement * #TYpe 2 diabetes mellitus: metformin held. ISS. Accuchecks ACHS DVT prophylaxis: lovenox Rest as per Trang RECINOSC's note, which I have reviewed, and endorsed. Time spent on care of patient today: 17 mins, with Trang Chou spending 13 mins, making a total of 30 mins. Visit Charges Inpatient E&M: 86965 Subs Hosp L2
[2022-05-10] MEDS: Insulin Lispro 100 UNIT/ML INSULN.PEN SC (11:34)
[2022-05-10 12:10] LABS: Bedside Glucose 167 mg/dL (74-106)
[2022-05-10 17:40] LABS: Bedside Glucose 120 mg/dL (74-106)
--- NOTE | 2022-05-10 18:51 | CM.ED ---
THEODORE called [facility] and spoke to Olga. No precert for patient's received. THEODORE called TCU and spoke to Edmund. No precerts received. Per RN CM patient is ready Thursday if precert is received. Leonarda HANSON
[2022-05-10] MEDS: 0.9% Saline Lock 10 ML Syringe IV (20:17)
[2022-05-10 23:45] LABS: Bedside Glucose 162 mg/dL (74-106)
[2022-05-11] VITALS (16 sets, daily range): BP systolic 114–155; BP diastolic 60–78; PULSE 60–128; RESP 12–36; TEMP 36.5–36.6; O2SAT 95–100
[2022-05-11] MEDS: Acetaminophen 500 MG Tablet 1000 MG PO ×2 (00:39→08:36)
[2022-05-11 06:16] LABS: Absolute Lymphocyte Count 1.68 X10^3/uL (0.83-4.51); Absolute Neutrophil Count 3.6 X10^3/uL (2.0-7.7); Basophil# 0.03 X10^3/uL; Basophil% 0.5 % (0-1); Eosinophil# 0.29 X10^3/uL; Eosinophils% 4.8 % (0-5); Hematocrit 28.7 % (37-47); Hemoglobin 9.3 g/dL (12.0-15.0); Lymphocyte # 1.68 X10^3/ul (0.83-4.51); Lymphocyte % 27.6 % (19-41); Mean Corp Hgb Conc 32.4 g/dL (32-36); Mean Corpuscular Hgb 28.4 pg (27.0-32.0); Mean Corpuscular Volume 87.8 fL (81-99); Mean Platelet Vol. 11.3 fl (6.2-12.0); Monocyte# 0.43 X10^3/uL; Monocyte% 7.1 % (0-10); NRBC Flagged by Analyzer 0 % (0-5); Neutrophil # 3.63 X10^3/uL (2.7-7.7); Neutrophil % 59.7 % (47-70); Platelet Count 210 K/mm3 (150-450); RBC Distribution Width CV 15.7 % (11.6-14.6); RBC Distribution Width SD 50.4 fl (35.1-43.9); Red Blood Count 3.27 M/mm3 (4.2-5.4); White Blood Count 6.1 K/mm3 (4.4-11.0)
[2022-05-11] MEDS: Menthol/Lanolin/Calamine/Znox 113 GM Tube 1 APPLIC TOPICAL ×3 (06:45→21:56)
[2022-05-11 06:55] LABS: ALB/GLOB Ratio 0.9 RATIO (0.9-2.4); AST(SGOT) 10 U/L (15-37); Alanine Aminotransfer ALT/SGPT 9 U/L (13-56); Albumin, Serum 2.7 g/dL (3.2-5.0); Alkaline Phosphatase 73 U/L (45-117); Anion Gap 5 (5-15); BUN 11 mg/dL (7-18); BUN/Creat Ratio 24.6 RATIO (10-20); Calcium,Total 8.9 mg/dL (8.5-10.1); Chloride 109 mmol/L (98-107); Creatinine, Serum 0.45 mg/dL (0.55-1.02); EST Glomerular Filtration Rate 142 mL/min (>60); Est Glom Filt Rate - Afr Amer 172 mL/min (>60); Estimated Creatinine Clearance 38.92 ml/min; Globulin 2.9 g/dL (2.2-4.2); Glucose 120 mg/dL (74-106); Potassium 3.8 mmol/L (3.5-5.1); Protein, Total 5.6 g/dL (6.4-8.2); Sodium Level 140 mmol/L (136-145)
[2022-05-11 07:11] LABS: Bedside Glucose 133 mg/dL (74-106)
[2022-05-11] MEDS: Gabapentin 100 MG Capsule PO ×3 (08:28→16:38)
[2022-05-11] MEDS: Enoxaparin 40 MG/0.4 ML Syringe SC (08:29)
[2022-05-11] MEDS: amLODIPine 5 MG Tablet PO (08:29)
[2022-05-11] MEDS: Lisinopril 40 MG Tablet PO (08:29)
[2022-05-11] MEDS: Aspirin 81 MG TAB.CHEW PO (08:29)
[2022-05-11] MEDS: Atenolol 50 MG Tablet PO (08:29)
[2022-05-11] MEDS: Isosorbide Mononitrate 60 MG Tablet PO (08:29)
[2022-05-11] MEDS: Lidocaine 5% Patch 1 PATCH TOPICAL (08:30)
[2022-05-11] MEDS: Glucerna Shake 120 ML LIQUID PO ×2 (08:36→21:58)
[2022-05-11] MEDS: Ceftriaxone 1 GM/50 ML BAG IV (09:27)
[2022-05-11] MEDS: 0.9% Saline Lock 10 ML Syringe IV ×3 (09:27→20:39)
[2022-05-11] MEDS: Albuterol 2.5 MG/3 ML VIAL.NEB. INHALATION (10:09)
--- NOTE | 2022-05-11 10:15 | RAD_ITS ---
EXAM: XR CHEST, 1 VIEW CLINICAL INDICATION: shortness of breath TECHNIQUE: Frontal view of the chest. This report was created using [employer] report generation technology. COMPARISON: XR Chest dated 12/31/2021 FINDINGS: LUNGS AND PLEURAL SPACES: Diffuse interstitial lung densities consistent with pulmonary edema or pneumonia. No pneumothorax. No effusion. HEART: Heart is mildly enlarged. MEDIASTINUM: Central airways and mediastinal contour are unremarkable. BONES/JOINTS: Vertebroplasty changes again noted. SOFT TISSUES: Normal. TUBES, LINES AND DEVICES: Atrial lead ventricular pacemaker wires in place. RAD/Chest 1 View (Portable) IMPRESSION: 1. Bilateral interstitial edema/pneumonia. 2. Mild cardiomegaly. Electronically Signed: Chuckie Grey MD at 11:31 EDT ,
--- NOTE | 2022-05-11 10:16 | PN.HOSP_ITS ---
Documented by User: Trang Chou NP-C 05/11/22 10:30 Subjective Subjective Patient seen and examined. Patient lying in bed states she is short of breath, audibly wheezing. Stat chest x-ray, albuterol breathing treatment and ST eval ordered as I suspect patient has aspirated. RT at bedside, BiPAP ordered due to increased work of breathing. Objective Data Objective Data Vital Signs: Vital Signs Temp Pulse Resp BP Pulse Ox O2 Del Method 97.8 F 128 H 24 H 141/60 H 95 Room Air 05/11/22 03:00 05/11/22 10:10 05/11/22 10:10 05/11/22 03:00 05/11/22 08:27 05/11/22 08:27 Oxygen Delivery Method Room Air Weight: 125 lb 4.796 oz Body Mass Index (BMI) 27.1 Intake & Output: Intake and Output for Last 24 Hours 05/09/22 05/10/22 05/11/22 23:59 23:59 23:59 Intake Total 1230 / 1230 630 / 630 Output Total 300 / 300 200 / 200 Balance 930 / 930 430 / 430 Medical Nutrition Assessment Dietitian: Malnutrition Criteria Met Start: 05/09/22 15:08 Freq: Status: Active Protocol: Document 05/09/22 15:08 AG (Rec: 05/09/22 15:08 [id number]) Nutrition Malnutrition Evidence of Malnutrition Exists Yes Malnutrition (severe): Chronic Evidenced By Suboptimal Energy Intake ( Severe),Weight Loss (Severe) Clinical Problem Chronic Disease or Condition Related Malnutrition Etiology severe, chronic malnutrition related to inadequate energy intake d/t decreased appetite Signs/Symptoms as evidenced by unintentional wt loss of 22.6#/15% wt loss x 4 months, estimated PO intake meeting <75% of estimated energy needs >3 months Status Active Problem Recommendation Dietitian Recommendations/Changes will liberalize diet to consistent CHO, no added salt diet; glucerna 120mL 4x/day w/ medpass for additional calories/protein if consumed. Soft/cut up foods d/t dentition- recommend speech therapy consult if issues chewing persist. Lab / Micro Data Result Diagrams: 05/11/22 05:45 05/11/22 05:45 Labs: Laboratory Results - last 24 hr 05/10/22 11:28: POC Glucose 167 H 05/10/22 16:27: POC Glucose 120 H 05/10/22 23:26: POC Glucose 162 H 05/11/22 05:45: WBC 6.1, RBC 3.27 L, Hgb 9.3 L, Hct 28.7 L, MCV 87.8, MCH 28.4, MCHC 32.4, RDW Std Deviation 50.4 H, RDW Coeff of Aubrie 15.7 H, Plt Count 210, MPV 11.3, Immature Gran % (Auto) 0.300, Neut % (Auto) 59.7, Lymph % (Auto) 27.6, Drew % (Auto) 7.1, Eos % (Auto) 4.8, Baso % (Auto) 0.5, Absolute Neuts (auto) 3.6, Absolute Lymphs (auto) 1.68, Nucleated RBC % 0 05/11/22 05:45: Sodium 140, Potassium 3.8, Chloride 109 H, Carbon Dioxide 26.0, Anion Gap 5, BUN 11, Creatinine 0.45 L, Estim Creat Clear Calc 38.92, Est GFR (MDRD) Af Amer 172, Est GFR (MDRD) Non-Af 142, BUN/Creatinine Ratio 24.6 H, Glucose 120 H, Calcium 8.9, Total Bilirubin 0.50, AST 10 L, ALT 9 L, Alkaline Phosphatase 73, Total Protein 5.6 L, Albumin 2.7 L, Globulin 2.9, Albumin/Globulin Ratio 0.9 05/11/22 06:43: POC Glucose 133 H Micro: Microbiology 05/10/22 10:06 Stool C. difficile GDH Antigen & Toxins - Final 05/10/22 10:06 Stool C. difficile DNA Amplification - Final 05/10/22 10:06 Stool Enteric Bacteriology - Final 05/08/22 13:40 Urine, Catheterized Urine Culture - Final Klebsiella oxytoca Physical Exam Const alert and oriented x3 General Appearance: in distress Positive for moderate HEENT head/scalp atraumatic and moist oral mucous membranes Head and Scalp: normocephalic Eyes conjunctivae normal and no scleral icterus Resp Effort and Inspection: symmetric chest movement, tachypneic and labored Auscultation: wheezes expiratory wheezes, scattered wheezes, anterior, posterior and throughout Cardio regular rate, regular rhythm, S1 normal heart sound and S2 normal heart sound GI normal to inspection, nondistended, normoactive bowel sounds, soft to palpation and non-tender Extremity normal to inspection and full ROM Neuro moves all extremities, no focal motor deficits and no sensory deficits noted Sensorium / Orientation: awake, alert, oriented to person and oriented to place Psych Mood & Affect: anxious Assessment & Plan Assessment/Plan (1) UTI (urinary tract infection): PLAN: Plan 1.?Urinary tract infection -Urinalysis positive for protein, ketones, blood, nitrate, WBC improved -Patient reports urinary frequency and urgency -continue ceftriaxone -Urine culture positive for Klebsiella, susceptible to ceftriaxone, will continue -C. difficile and enteric pathogen panel negative 2.? Pneumonia, suspected aspiration -Patient was noted to be stable upon first rounds this morning by RN however following breakfast patient was noted to be audibly wheezing and complains of shortness of breath. -Patient placed on 2 L nasal cannula oxygen, -Chest x-ray, BiPAP, albuterol nebulizer treatments as needed and ST evaluation ordered -As is happened following breakfast and patient was noted to be lying down I suspect that this is aspiration in nature 3. Hypokalemia -Potassium 3.8, resolved -BMP ordered daily 4.? Chronic back pain -Dr. Hernandez to follow-up on Thursday for this and determination of when kyphoplasty can be done. 5.? Hypertension -Vital signs per protocol, currently stable -Continue amlodipine, atenolol, isosorbide, lisinopril 6.? Diabetes mellitus type 2 -Hold metformin -ACH S blood sugars are sliding scale insulin ordered DVT prophylaxis-subcu Lovenox This patient was seen by Trang Chou NP-C under the supervision of Dr. Yovana salmon 14 minutes spent in clinical coordination of patient's plan of care. Documented by User: Dr. Ene Villa MD 05/11/22 16:08 Objective Data Lab / Micro Data Result Diagrams: 05/11/22 05:45 05/11/22 05:45 Assessment & Plan Assessment/Plan (1) UTI (urinary tract infection): Charges/Coding Addendum Addendum: Patient seen by Trang LAMA under my supervision Patient seen and examined. She was well and had no active complaints at the time I reviewed her. However, she subsequently started complaining of shortness of breath, and there were concerns she might have aspirated, as she was found essentially lying in bed whilst eating her breakfast. She was placed on BIPAP O/E: Const alert, oriented x3 and no apparent distress, frail General Appearance: cooperative HEENT normocephalic, head/scalp atraumatic, hearing grossly normal bilaterally and moist oral mucous membranes Eyes PERRL, EOMs intact bilaterally and conjunctivae normal Neck no lymphadenopathy, supple and no JVD Resp mildly diminished breath sounds at time I reviewed her. Cardio regular rate, regular rhythm, S1 normal heart sound, S2 normal heart sound and no murmurs GI normal to inspection, nondistended, normoactive bowel sounds and soft to palpation Extremity normal to inspection, full ROM and no clubbing, cyanosis or edema Skin no rashes or lesions noted Neuro oriented x3, CN's II-XII intact bilaterally and moves all extremities Sensorium / Orientation: awake and alert Psych affect normal Assessment and plan #Hypoxia * thought to be due to possible aspiration vs fluid overload * also wheezing. * placed on breathing treatment with bronchodilators. * CXR showed bilateral insterstitial edema/pneumonia * she has already been weaned off BIPAP and is now on room air. * titrate oxygen to maintain sats >90%; will hold off on boradening antibiotics * 2D echo showed known EF of 20-25%, with moderately dilated LV and severe LV sy stolic dysfunction * will therefore also check BNP as she may be fluid overloaded #Intractable back pain due to lumbar compression fracture * PT/OT on board. Fall precautions * case management on board * on pain medication * has had kyphoplasty in the past. Pain management to see tomorrow to evaluate for back pain * #Hypokalemia and hypomagnesemia * resolved. * #UTI * on IV ceftriaxone. * urine culture growing Klebsiella which is sensitive to ceftriaxone. * #Hypertension * on amlodipine, atenolol, imdur and lisinopril * #History of tachybrady syndrome * s/p pacemaker placement #TYpe 2 diabetes mellitus: metformin held. ISS. Accuchecks ACHS DVT prophylaxis: lovenox Rest as per Trang Chou MEDICAL IMAGING SPECIALIST-C's note, which I have reviewed, and endorsed. Time spent on care of patient today: 19 mins, with Trang Chou spending 14 mins, making a total of 33 mins. Visit Charges Inpatient E&M: 31479 Subs Hosp L2
[2022-05-11] MEDS: Insulin Lispro 100 UNIT/ML INSULN.PEN SC (11:40)
[2022-05-11 12:10] LABS: Bedside Glucose 205 mg/dL (74-106)
[2022-05-11] MEDS: Ipratropium/Albuterol Sulfate 3 ML AMPUL.NEB INHALATION (13:21)
[2022-05-11 17:07] LABS: BNP,B-Type NATRIURETIC PEPTIDE 747.2 pg/mL (0-100)
[2022-05-11 17:30] LABS: Bedside Glucose 116 mg/dL (74-106)
[2022-05-11] MEDS: Furosemide 40 MG/4 ML Vial IV (17:55)
[2022-05-11 22:51] LABS: Bedside Glucose 132 mg/dL (74-106)
[2022-05-12] VITALS (8 sets, daily range): BP systolic 122–132; BP diastolic 61–84; PULSE 60–89; RESP 16; TEMP 36.6–36.8; O2SAT 95–96
[2022-05-12] MEDS: Menthol/Lanolin/Calamine/Znox 113 GM Tube 1 APPLIC TOPICAL ×2 (06:09→13:58)
[2022-05-12 06:26] LABS: Absolute Neutrophil Count 8.9 X10^3/uL (2.0-7.7); Basophil# 0.06 X10^3/uL; Basophil% 0.6 % (0-1); Eosinophil# 0.13 X10^3/uL; Eosinophils% 1.2 % (0-5); Hematocrit 34.9 % (37-47); Hemoglobin 11.1 g/dL (12.0-15.0); Lymphocyte % 10.1 % (19-41); Mean Corp Hgb Conc 31.8 g/dL (32-36); Mean Corpuscular Volume 88.1 fL (81-99); Mean Platelet Vol. 11.6 fl (6.2-12.0); Monocyte# 0.64 X10^3/uL; Monocyte% 5.9 % (0-10); NRBC Flagged by Analyzer 0 % (0-5); Neutrophil # 8.86 X10^3/uL (2.7-7.7); Neutrophil % 81.7 % (47-70); Platelet Count 268 K/mm3 (150-450); RBC Distribution Width CV 15.8 % (11.6-14.6); RBC Distribution Width SD 51.4 fl (35.1-43.9); Red Blood Count 3.96 M/mm3 (4.2-5.4); White Blood Count 10.8 K/mm3 (4.4-11.0)
[2022-05-12 06:40] LABS: Bedside Glucose 143 mg/dL (74-106)
[2022-05-12 06:52] LABS: Anion Gap 6 (5-15); BUN 9 mg/dL (7-18); BUN/Creat Ratio 18.7 RATIO (10-20); Calcium,Total 9.5 mg/dL (8.5-10.1); Chloride 101 mmol/L (98-107); Creatinine, Serum 0.48 mg/dL (0.55-1.02); EST Glomerular Filtration Rate 131 mL/min (>60); Est Glom Filt Rate - Afr Amer 158 mL/min (>60); Estimated Creatinine Clearance 38.92 ml/min; Glucose 134 mg/dL (74-106); Potassium 3.5 mmol/L (3.5-5.1); Sodium Level 136 mmol/L (136-145)
--- NOTE | 2022-05-12 07:21 | NURSING ---
Documentation by Geneva ROPER reviewed. This nurse agrees with information as documented
[2022-05-12] MEDS: Gabapentin 100 MG Capsule PO ×2 (08:50→11:33)
[2022-05-12] MEDS: Aspirin 81 MG TAB.CHEW PO (08:50)
[2022-05-12] MEDS: amLODIPine 5 MG Tablet PO (09:11)
[2022-05-12] MEDS: Isosorbide Mononitrate 60 MG Tablet PO (09:11)
[2022-05-12] MEDS: Atenolol 50 MG Tablet PO (09:11)
[2022-05-12] MEDS: Enoxaparin 40 MG/0.4 ML Syringe SC (09:11)
[2022-05-12] MEDS: Lisinopril 40 MG Tablet PO (09:11)
[2022-05-12] MEDS: Lidocaine 5% Patch 1 PATCH TOPICAL (09:12)
[2022-05-12] MEDS: Acetaminophen 500 MG Tablet 1000 MG PO (09:17)
[2022-05-12] MEDS: 0.9% Saline Lock 10 ML Syringe IV (09:27)
[2022-05-12] MEDS: Furosemide 40 MG/4 ML Vial IV (09:27)
[2022-05-12] MEDS: Glucerna Shake 120 ML LIQUID PO ×2 (09:58→13:58)
[2022-05-12] MEDS: Ceftriaxone 1 GM/50 ML BAG IV (09:58)
--- NOTE | 2022-05-12 10:48 | PCM.TXEXTCAR ---
Diet Diet Order/Speech Therapy: 05/09/22 14:49 Diet: Carbohydrate Controlled Food consistency:: N/A - Liquid only Liquid Consistency:: Regular/Thin Dietary Modifications:: No Added Salt Is pt able to select menu?: Yes Diet Comments: Water only with FFWP in place given frequent oral care Routine Orders/Code Status Enema Type: Fleetz Enema Frequency: Daily PRN Suppository Type: Dulcolax 10mg Suppository Frequency: Daily PRN Routine Lab Work: CBC (1 week) and BMP (1 week) Code Status: DNRCC-A Suggestions for Active Care Change Position every (hours): 2 Times a day to sit in chair: 3 Therapies Weight Bearing: Full weight bearing Physical Therapy: Eval and Treat Occupational Therapy: Eval and Treat Speech Therapy: Eval and Treat Problem/Diagnosis (1) UTI (urinary tract infection): Status: Acute Code(s): N39.0 - Urinary tract infection, site not specified Plan 1.?Urinary tract infection -Urinalysis positive for protein, ketones, blood, nitrate, WBC improved -Patient reports urinary frequency and urgency -continue ceftriaxone -Urine culture positive for Klebsiella, susceptible to ceftriaxone, will continue -C. difficile and enteric pathogen panel negative 2.? Pneumonia vs pulmonary edema -After episode yesterday morning patient was given breathing treatments and IV Lasix as x-ray was indeterminate whether findings were pneumonia versus pulmonary edema. -Patient quickly recovered so is likely that this was related to pulmonary edema versus pneumonia. However patient has continued to have coughing with eating and so patient will go for modified barium swallow at 130 today with speech therapy to ensure that she is not aspirating. -Session patient from IV to p.o. Lasix 3. Hypokalemia -Potassium 3.5, resolved -BMP ordered daily 4.? Chronic back pain -Dr. Hernandez planning for kyphoplasty on 05/16/2022 5.? Hypertension -Vital signs per protocol, currently stable -Continue amlodipine, atenolol, isosorbide, lisinopril 6.? Diabetes mellitus type 2 -Hold metformin -ACH S blood sugars are sliding scale insulin ordered DVT prophylaxis-subcu Lovenox This patient was seen by DAINA Jimenes under the supervision of Dr. Villa. 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 Soft/cut up foods d/t dentition- recommend speech therapy consult if issues chewing persist. Speech Linguistic Eval Summary: Pt had difficult time understanding therapist directions upon arrival to session. Pt was often asking for clarification when asked to perform a task. Pt was oriented to name, , age, current location, room number, month, and year. Pt was unable to provide current day of week. Pt was able to repeat words lemon, Ayala, and ball given cues but was unable to recall words given time delay. Pt was un able to perform problem solving task of taking 7 from 100. Discharge Plan Admission Admit Date/Time: 05/08/22 18:03 Primary Reason for Your Visit: AMS, UTI Attending Provider: Ene Villa Primary Care Provider: Mary Azevedo Consulting Providers: Saida Kimbrough Discharge Orders/Prescriptions Prescriptions: New aspirin 81 mg Tablet,Chewable 81 mg PO DAILY@0800 Qty: 0 0RF lidocaine 5 % Adhesive Patch,Medicated 1 patch topical DAILY Qty: 0 0RF Protocol: *Topical Application Instructions APPLICATION INSTRUCTIONS: back gabapentin 100 mg Capsule 100 mg PO TIDCM Qty: 90 0RF Glucerna 1.2 Norman 0.06-1.2 gram-kcal/mL Liquid 120 ml PO 4X/DAY Qty: 0 0RF menthol-zinc oxide [Calmoseptine] 0.44-20.6 % Ointment 1 applic topical TID Qty: 0 0RF Protocol: *Topical Application Instructions APPLICATION INSTRUCTIONS: apply to groin and perineal tid cefdinir 300 mg capsule 300 mg PO BID Qty: 6 0RF furosemide [Lasix] 40 mg tablet 40 mg PO DAILY Qty: 30 0RF Continued acetaminophen [Tylenol Extra Strength] 500 mg tablet 1,000 mg PO Q6H PRN (Reason: Pain) lisinopril 20 mg tablet 40 mg PO DAILY atenolol 25 mg tablet 50 mg PO DAILY (DME) blood sugar diagnostic Strip See Rx Instructions .ROUTE .MEDSUPPLY Rx Instructions: test three times a day amlodipine 5 mg tablet 5 mg PO DAILY (DME) blood-glucose meter Kit See Rx Instructions .ROUTE .MEDSUPPLY Rx Instructions: As directed cholecalciferol (vitamin D3) 1,250 mcg (50,000 unit) capsule 1,250 mcg PO QWEEK nitroglycerin 0.4 mg tablet, sublingual 0.4 mg sublingual Q5M PRN (Reason: Cardiac/Chest Pain) Qty: 25 3RF isosorbide mononitrate 60 mg tablet extended release 24 hr 60 mg PO DAILY Qty: 90 3RF Rx Instructions: Take 1 tablet by mouth once daily Referrals / Follow Up: Mary Azevedo MD [Primary Care Provider] - Disposition Disposition (needs filled in before D/C Order can be placed): [facility]
--- NOTE | 2022-05-12 11:17 | PCM.DC.SUM ---
Documented by User: DAINA Jimenes 05/12/22 11:22 Providers Date of Admission: 05/08/22 Date of Discharge: 05/12/22 Primary Care Physician: Dr. Mary Azevedo MD Reason For Visit: BACK, HYPOKALEMIA, UTI Diagnosis Discharge Diagnosis (1) UTI (urinary tract infection): Status: Acute Code(s): N39.0 - Urinary tract infection, site not specified Plan 1.?Urinary tract infection -Urinalysis positive for protein, ketones, blood, nitrate, WBC improved -Patient reports urinary frequency and urgency -continue ceftriaxone -Urine culture positive for Klebsiella, susceptible to ceftriaxone, will continue -C. difficile and enteric pathogen panel negative 2.? Pneumonia vs pulmonary edema -After episode yesterday morning patient was given breathing treatments and IV Lasix as x-ray was indeterminate whether findings were pneumonia versus pulmonary edema. -Patient quickly recovered so is likely that this was related to pulmonary edema versus pneumonia. However patient has continued to have coughing with eating and so patient will go for modified barium swallow at 130 today with speech therapy to ensure that she is not aspirating. -Session patient from IV to p.o. Lasix 3. Hypokalemia -Potassium 3.5, resolved -BMP ordered daily 4.? Chronic back pain -Dr. Hernandez planning for kyphoplasty on 05/16/2022 5.? Hypertension -Vital signs per protocol, currently stable -Continue amlodipine, atenolol, isosorbide, lisinopril 6.? Diabetes mellitus type 2 -Hold metformin -ACH S blood sugars are sliding scale insulin ordered DVT prophylaxis-subcu Lovenox This patient was seen by DAINA Jimenes under the supervision of Dr. Villa. Medications at Discharge Home Medications lisinopril 20 mg tablet 40 mg PO DAILY blood pressure 06/14/21 nitroglycerin 0.4 mg sublingual tablet 0.4 mg sublingual Q5M PRN Cardiac/Chest Pain #25 tabs 12/23/21 amlodipine 5 mg tablet 5 mg PO DAILY blood pressure 12/30/21 atenolol 25 mg tablet 50 mg PO DAILY blood pressure 12/30/21 blood sugar diagnostic 12/30/21 blood-glucose meter 12/30/21 cholecalciferol (vitamin D3) 1,250 mcg (50,000 unit) capsule 1,250 mcg PO QWEEK vitamin 12/30/21 isosorbide mononitrate 60 mg tablet,extended release 24 hr 60 mg PO DAILY heart #90 tabs 02/07/22 acetaminophen 500 mg tablet (Tylenol Extra Strength) 1,000 mg PO Q6H PRN Pain 02/21/22 aspirin 81 mg chewable tablet 81 mg PO DAILY@0800 #0 tabs 05/12/22 cefdinir 300 mg capsule 300 mg PO BID #6 caps 05/12/22 furosemide 40 mg tablet (Lasix) 40 mg PO DAILY #30 tabs 05/12/22 gabapentin 100 mg capsule 100 mg PO TIDCM #90 caps 05/12/22 lidocaine 5 % topical patch 1 patch topical DAILY #0 ea 05/12/22 menthol 0.44 %-zinc oxide 20.6 % topical ointment (Calmoseptine) 1 applic topical TID #0 grams 05/12/22 nutrition tx glu intol,lac-free,soy-fiber 0.06 gram-1.2 kcal/mL liquid (Glucerna 1.2 Norman) 120 ml PO 4X/DAY #0 mL 05/12/22 Hospital Course Operations None Procedures 2-D Echocardiogram Summary of Care Provided Minutes Spent on Discharge: 35 Hospital Course: Patient is an 82-year-old female who initially presented with altered mental status and back pain. Patient was noted to have a urinary tract infection and was subsequently treated with ceftriaxone IV and IV fluid resuscitation. Patient also noted to have compression fractures in her lumbar spine which she was supposed to see Dr. Hernandez for outpatient the day of presentation to ER. Discussed patient with Dr. Hernandez who stated that she he would get her on the schedule for 05/16/2022 for her kyphoplasty. On 05/11/2020 2 in the morning patient began to become very short of breath and was further evaluated with a chest x-ray and put on BiPAP for a short period of time. Patient was also given breathing treatments as well as an IV dose of Lasix as chest x-ray was indeterminate for pulmonary edema versus pneumonia. Patient improved rapidly with IV Lasix and was noted to have an elevated BNP. Patient currently on room air oxygenating well no respiratory distress noted. Patient states that she is feeling much better at this time. Patient will be discharged with Lasix and will need a CBC and a BMP within a week to monitor blood counts and kidney function. Patient underwent echocardiogram on 05/09/2022 which demonstrated a EF of 20 to 25%. Patient will undergo modified barium swallow today with speech therapy to rule out aspiration risk and will subsequently be transferred to TCU for rehab with PT OT and ST Physical Exam Const alert and no apparent distress General Appearance: in distress Positive for moderate Orientation / Consciousness: oriented to person, oriented to place and confused HEENT head/scalp atraumatic, moist oral mucous membranes and oropharynx normal Eyes PERRL, conjunctivae normal and no scleral icterus Neck no lymphadenopathy and supple General: trachea midline Resp normal respiratory effort, normal air movement and clear to auscultation bilaterally Effort and Inspection: symmetric chest movement, tachypneic and labored Auscultation: wheezes expiratory wheezes, scattered wheezes, anterior, posterior and throughout Cardio regular rate, regular rhythm, S1 normal heart sound, S2 normal heart sound and peripheral pulses 2+ throughout Cardio Narrative: Irregular rhythm-currently rate controlled Rhythm: abnormal rhythm GI normal to inspection, nondistended, normoactive bowel sounds, soft to palpation, non-tender and non-distended Extremity normal to inspection, full ROM and no clubbing, cyanosis or edema Skin no rashes or lesions noted, no wounds and skin turgor normal General Skin Exam: no breakdown Lesions: no lesions Rashes: no rashes Neuro oriented x3, moves all extremities, no focal motor deficits and no sensory deficits noted Sensorium / Orientation: awake, alert, oriented to person and oriented to place Psych cooperative and affect normal Psych Narrative: Very pleasant Appearance: appropriate Mood & Affect: anxious Medical Records Data Medical Nutrition Assessment Dietitian: Malnutrition Criteria Met Start: 05/09/22 15:08 Freq: Status: Active Protocol: Document 05/09/22 15:08 (Rec: 05/09/22 15:08 [id number]) Nutrition Malnutrition Evidence of Malnutrition Exists Yes Malnutrition (severe): Chronic Evidenced By Suboptimal Energy Intake ( Severe),Weight Loss (Severe) Clinical Problem Chronic Disease or Condition Related Malnutrition Etiology severe, chronic malnutrition related to inadequate energy intake d/t decreased appetite Signs/Symptoms as evidenced by unintentional wt loss of 22.6#/15% wt loss x 4 months, estimated PO intake meeting <75% of estimated energy needs >3 months Status Active Problem Recommendation Dietitian Recommendations/Changes will liberalize diet to consistent CHO, no added salt diet; glucerna 120mL 4x/day w/ medpass for additional calories/protein if consumed. Soft/cut up foods d/t dentition- recommend speech therapy consult if issues chewing persist. Weight / BMI Weight Weight: 125 lb 4.796 oz Body Mass Index (BMI) 27.1 ABG / Lab / Microbiology Data Result Diagrams: 05/12/22 05:55 05/12/22 05:55 Laboratory: Laboratory Results - last 24 hr 05/11/22 05:45: B-Natriuretic Peptide 747.2 H 05/11/22 11:39: POC Glucose 205 H 05/11/22 16:39: POC Glucose 116 H 05/11/22 21:55: POC Glucose 132 H 05/12/22 05:55: WBC 10.8, RBC 3.96 L, Hgb 11.1 L, Hct 34.9 L, MCV 88.1, MCH 28.0, MCHC 31.8 L, RDW Std Deviation 51.4 H, RDW Coeff of Aubrie 15.8 H, Plt Count 268, MPV 11.6, Immature Gran % (Auto) 0.500, Neut % (Auto) 81.7 H, Lymph % (Auto) 10.1 L, [place] % (Auto) 5.9, Eos % (Auto) 1.2, Baso % (Auto) 0.6, Absolute Neuts (auto) 8.9 H, Absolute Lymphs (auto) 1.10, Nucleated RBC % 0 05/12/22 05:55: Sodium 136, Potassium 3.5, Chloride 101, Carbon Dioxide 29.0, Anion Gap 6, BUN 9, Creatinine 0.48 L, Estim Creat Clear Calc 38.92, Est GFR (MDRD) Af Amer 158, Est GFR (MDRD) Non-Af 131, BUN/Creatinine Ratio 18.7, Glucose 134 H, Calcium 9.5 05/12/22 06:05: POC Glucose 143 H Microbiology: Microbiology 05/10/22 10:06 Stool C. difficile GDH Antigen & Toxins - Final 05/10/22 10:06 Stool C. difficile DNA Amplification - Final 05/10/22 10:06 Stool Enteric Bacteriology - Final 05/08/22 13:40 Urine, Catheterized Urine Culture - Final Klebsiella oxytoca Radiography Diagnostic Testing: Radiology Impression Chest X-Ray 05/11/22 10:15 IMPRESSION: 1. Bilateral interstitial edema/pneumonia. 2. Mild cardiomegaly. Electronically Signed: Chuckie Grey MD at 11:31 EDT , Meaningful Use Info Meaningful Use Diagnoses (Choose all that apply): None applicable Discharge Plan Admission Admit Date/Time: 05/08/22 18:03 Primary Reason for Your Visit: AMS, UTI Attending Provider: Ene Villa Primary Care Provider: Mary Azevedo Consulting Providers: Saida Kimbrough Discharge Orders/Prescriptions Prescriptions: New aspirin 81 mg Tablet,Chewable 81 mg PO DAILY@0800 Qty: 0 0RF lidocaine 5 % Adhesive Patch,Medicated 1 patch topical DAILY Qty: 0 0RF Protocol: *Topical Application Instructions APPLICATION INSTRUCTIONS: back gabapentin 100 mg Capsule 100 mg PO TIDCM Qty: 90 0RF Glucerna 1.2 Norman 0.06-1.2 gram-kcal/mL Liquid 120 ml PO 4X/DAY Qty: 0 0RF menthol-zinc oxide [Calmoseptine] 0.44-20.6 % Ointment 1 applic topical TID Qty: 0 0RF Protocol: *Topical Application Instructions APPLICATION INSTRUCTIONS: apply to groin and perineal tid cefdinir 300 mg capsule 300 mg PO BID Qty: 6 0RF furosemide [Lasix] 40 mg tablet 40 mg PO DAILY Qty: 30 0RF Continued acetaminophen [Tylenol Extra Strength] 500 mg tablet 1,000 mg PO Q6H PRN (Reason: Pain) lisinopril 20 mg tablet 40 mg PO DAILY atenolol 25 mg tablet 50 mg PO DAILY (DME) blood sugar diagnostic Strip See Rx Instructions .ROUTE .MEDSUPPLY Rx Instructions: test three times a day amlodipine 5 mg tablet 5 mg PO DAILY (DME) blood-glucose meter Kit See Rx Instructions .ROUTE .MEDSUPPLY Rx Instructions: As directed cholecalciferol (vitamin D3) 1,250 mcg (50,000 unit) capsule 1,250 mcg PO QWEEK nitroglycerin 0.4 mg tablet, sublingual 0.4 mg sublingual Q5M PRN (Reason: Cardiac/Chest Pain) Qty: 25 3RF isosorbide mononitrate 60 mg tablet extended release 24 hr 60 mg PO DAILY Qty: 90 3RF Rx Instructions: Take 1 tablet by mouth once daily Referrals / Follow Up: Mary Azevedo MD [Primary Care Provider] - Disposition Disposition (needs filled in before D/C Order can be placed): Residential Facility Documented by User: Dr. Ene Villa MD 05/12/22 12:50 Providers Date of Admission: 05/08/22 Reason For Visit: BACK, HYPOKALEMIA, UTI Diagnosis Discharge Diagnosis (1) UTI (urinary tract infection): Status: Acute Code(s): N39.0 - Urinary tract infection, site not specified Medications at Discharge Home Medications lisinopril 20 mg tablet 40 mg PO DAILY blood pressure 06/14/21 nitroglycerin 0.4 mg sublingual tablet 0.4 mg sublingual Q5M PRN Cardiac/Chest Pain #25 tabs 12/23/21 amlodipine 5 mg tablet 5 mg PO DAILY blood pressure 12/30/21 atenolol 25 mg tablet 50 mg PO DAILY blood pressure 12/30/21 blood sugar diagnostic 12/30/21 blood-glucose meter 12/30/21 cholecalciferol (vitamin D3) 1,250 mcg (50,000 unit) capsule 1,250 mcg PO QWEEK vitamin 12/30/21 isosorbide mononitrate 60 mg tablet,extended release 24 hr 60 mg PO DAILY heart #90 tabs 02/07/22 acetaminophen 500 mg tablet (Tylenol Extra Strength) 1,000 mg PO Q6H PRN Pain 02/21/22 aspirin 81 mg chewable tablet 81 mg PO DAILY@0800 #0 tabs 05/12/22 cefdinir 300 mg capsule 300 mg PO BID #6 caps 05/12/22 furosemide 40 mg tablet (Lasix) 40 mg PO DAILY #30 tabs 05/12/22 gabapentin 100 mg capsule 100 mg PO TIDCM #90 caps 05/12/22 lidocaine 5 % topical patch 1 patch topical DAILY #0 ea 05/12/22 menthol 0.44 %-zinc oxide 20.6 % topical ointment (Calmoseptine) 1 applic topical TID #0 grams 05/12/22 nutrition tx glu intol,lac-free,soy-fiber 0.06 gram-1.2 kcal/mL liquid (Glucerna 1.2 Norman) 120 ml PO 4X/DAY #0 mL 05/12/22 ABG / Lab / Microbiology Data Result Diagrams: 05/12/22 05:55 05/12/22 05:55 Discharge Plan Admission Admit Date/Time: 05/08/22 18:03 Primary Reason for Your Visit: AMS, UTI Attending Provider: Ene Villa Primary Care Provider: Mary Azevedo Consulting Providers: Saida Kimbrough Discharge Orders/Prescriptions Prescriptions: New aspirin 81 mg Tablet,Chewable 81 mg PO DAILY@0800 Qty: 0 0RF lidocaine 5 % Adhesive Patch,Medicated 1 patch topical DAILY Qty: 0 0RF Protocol: *Topical Application Instructions APPLICATION INSTRUCTIONS: back gabapentin 100 mg Capsule 100 mg PO TIDCM Qty: 90 0RF Glucerna 1.2 Norman 0.06-1.2 gram-kcal/mL Liquid 120 ml PO 4X/DAY Qty: 0 0RF menthol-zinc oxide [Calmoseptine] 0.44-20.6 % Ointment 1 applic topical TID Qty: 0 0RF Protocol: *Topical Application Instructions APPLICATION INSTRUCTIONS: apply to groin and perineal tid cefdinir 300 mg capsule 300 mg PO BID Qty: 6 0RF furosemide [Lasix] 40 mg tablet 40 mg PO DAILY Qty: 30 0RF Continued acetaminophen [Tylenol Extra Strength] 500 mg tablet 1,000 mg PO Q6H PRN (Reason: Pain) lisinopril 20 mg tablet 40 mg PO DAILY atenolol 25 mg tablet 50 mg PO DAILY (DME) blood sugar diagnostic Strip See Rx Instructions .ROUTE .MEDSUPPLY Rx Instructions: test three times a day amlodipine 5 mg tablet 5 mg PO DAILY (DME) blood-glucose meter Kit See Rx Instructions .ROUTE .MEDSUPPLY Rx Instructions: As directed cholecalciferol (vitamin D3) 1,250 mcg (50,000 unit) capsule 1,250 mcg PO QWEEK nitroglycerin 0.4 mg tablet, sublingual 0.4 mg sublingual Q5M PRN (Reason: Cardiac/Chest Pain) Qty: 25 3RF isosorbide mononitrate 60 mg tablet extended release 24 hr 60 mg PO DAILY Qty: 90 3RF Rx Instructions: Take 1 tablet by mouth once daily Referrals / Follow Up: Mary Azevedo MD [Primary Care Provider] - Disposition Disposition (needs filled in before D/C Order can be placed): Residential Facility Charges/Coding Addendum Addendum: Patient seen by Brianna LAMA under my supervision Patient is an 82 y/o female with a PMH as outlined who was admitted via the ED on 05/12/2022 with a complaint of back pain, hypokalemia and urinary symptoms as well as altered mental status. She had also been having multiple falls over the last few months. She also had a history of compression fractures and was due to follow up with pain management on outpatient basis. Urinalysis showed UTI. She was started on IV ceftriaxone. PT/OT worked with patient. Hospital course was also complicated by hypokalemia and hypomagnesemia, which resolved with replacement. Xray of the lumbar spine showed stable loss of height at L1 vertebrae and T12 vertebrae and prior vertebroplasty at the T12 vertebrae. Hospital course was complicated by hypoxia which was thought to be due to aspiration. BNP was also elevated, so patient was diuresed with IV lasix and hypoxia resolved. 2D echo done showed EF of 20-25%. She had modified barium swallow with speech therapy and was put on a modified diet. She was discharged to SNF on 05/12/2022, and is to follow up with pain management on outpatient basis. She completed a 5 day course of ceftriaxone. Patient seen and examined prior to discharge. She had no active complaints and had an uneventful night. Review of systems is otherwise negative. Labs and vitals reviewed. home meds reviewed and reconciled. O/E: Const alert, oriented x3 and no apparent distress, frail General Appearance: cooperative HEENT normocephalic, head/scalp atraumatic, hearing grossly normal bilaterally and moist oral mucous membranes Eyes PERRL, EOMs intact bilaterally and conjunctivae normal Neck no lymphadenopathy, supple and no JVD Resp mildly diminished breath sounds at time I reviewed her. Cardio regular rate, regular rhythm, S1 normal heart sound, S2 normal heart sound and no murmurs GI normal to inspection, nondistended, normoactive bowel sounds and soft to palpation Extremity normal to inspection, full ROM and no clubbing, cyanosis or edema Skin no rashes or lesions noted Neuro oriented x3, CN's II-XII intact bilaterally and moves all extremities Sensorium / Orientation: awake and alert Psych affect normal Plan is for DC to SNF today. Rest as per Trang Chou PER DIEM PHYSICAL THERAPIST ASSISTANT-C's note, which I have reviewed and endorsed. Time spent on discharge of patient today: 35 mins. Visit Charges Inpatient E&M: [id number] Disch Hosp
--- NOTE | 2022-05-12 11:26 | PHA.DC.MR ---
Pharmacy Service has performed discharge medication reconciliation for this patient. The patient's discharge medication list was reviewed for discrepancies and discrepancies were resolved. Home Medications lisinopril 20 mg tablet 40 mg PO DAILY blood pressure 06/14/21 nitroglycerin 0.4 mg sublingual tablet 0.4 mg sublingual Q5M PRN Cardiac/Chest Pain #25 tabs 12/23/21 amlodipine 5 mg tablet 5 mg PO DAILY blood pressure 12/30/21 atenolol 25 mg tablet 50 mg PO DAILY blood pressure 12/30/21 blood sugar diagnostic 12/30/21 blood-glucose meter 12/30/21 cholecalciferol (vitamin D3) 1,250 mcg (50,000 unit) capsule 1,250 mcg PO QWEEK vitamin 12/30/21 isosorbide mononitrate 60 mg tablet,extended release 24 hr 60 mg PO DAILY heart #90 tabs 02/07/22 acetaminophen 500 mg tablet (Tylenol Extra Strength) 1,000 mg PO Q6H PRN Pain 02/21/22 aspirin 81 mg chewable tablet 81 mg PO DAILY@0800 #0 tabs 05/12/22 cefdinir 300 mg capsule 300 mg PO BID #6 caps 05/12/22 furosemide 40 mg tablet (Lasix) 40 mg PO DAILY #30 tabs 05/12/22 gabapentin 100 mg capsule 100 mg PO TIDCM #90 caps 05/12/22 lidocaine 5 % topical patch 1 patch topical DAILY #0 ea 05/12/22 menthol 0.44 %-zinc oxide 20.6 % topical ointment (Calmoseptine) 1 applic topical TID #0 grams 05/12/22 nutrition tx glu intol,lac-free,soy-fiber 0.06 gram-1.2 kcal/mL liquid (Glucerna 1.2 Norman) 120 ml PO 4X/DAY #0 mL 05/12/22
[2022-05-12] MEDS: Insulin Lispro 100 UNIT/ML INSULN.PEN SC (11:44)
[2022-05-12 11:55] LABS: Bedside Glucose 233 mg/dL (74-106)
--- NOTE | 2022-05-12 11:55 | CASEMGMT ---
Patient was approved to go to TCU. SW notified Nurse Practitioner and physician. SW will talk with patient and her daughter. Shirlene RAMIREZ
--- NOTE | 2022-05-12 13:34 | CASEMGMT ---
THEODORE went to patient's room. Patient was sleeping, but her daughter Ailyn was present. THEODORE let Ailyn know that patient was approved and will go to [facility] today. She thanked THEODORE for the update. Plan: d/c to [facility] under skilled level of care. Shirlene RAMIREZ
--- NOTE | 2022-05-12 16:14 | ST.MBS ---
Modified Barium Swallow - Patient Information Study Date: 05/12/22 Study Time: 14:00 Direct Billable Minutes: 95 Total Minutes procedure & reportin Diagnosis: UTI (N39.0) Referring Physician: Ene Villa Reason for Referral: Objectively assess swallow function, risk for aspiration, and determine recommendations for least restrictive diet textures and compensatory strategies to improve safety of swallow. Medical History: Ashlee Boateng is a 82-year-old female with PMH including CAD, HTN, GERD, irritable bowel, TX, and DM type II who presented to [facility] ED 05/09/2022 following multiple falls at her independent living over the past couple months. She was admitted for management of UTI and pneumonia with suspected aspiration amongst other comorbidities. She was recommended NPO with FFWP by speech therapy upon 05/11/2022 and recommended for MBS study prior to diet advancement. Current Diet Ordered: Cuadra Free Water Protocol Dentition: Edentulous Mental Status: Impaired - Decreased alertness - required cues to remain alert for trials. Respiratory Status: Oxygenating on Room Air - Penetration-Aspiration Scale Penetration-Aspiration Scale: OBJECTIVE ASSESSMENT OF SWALLOW FUNCTION (QUANTITATIVE ? PER TRIAL): PENETRATION / ASPIRATION SCALE (REEDER): 1 = does not enter airway 2 = enters airway/above vocal folds/ejected 3 = enters airway/above vocal folds/not ejected 4 = enters airway/contacts vocal folds/ejected 5 = enters airway/contacts vocal folds/not ejected 6 = enters airway/below vocal folds/ejected 7 = enters airway/below vocal folds/not ejected despite effort 8 = enters airway/below vocal folds/no effort VIDEOFLOROSCOPIC SCALE SCORE (REEDER): Grade I = aspiration of material that has penetrated into the laryngeal vestibule, intact cough reflex Grade II = aspiration < 10 % of the bolus, intact cough reflex Grade III = aspiration of < 10 % of the bolus, reduced cough reflex or aspiration of > 10 % of the bolus, intact cough reflex Grade IV = aspiration of > 10 % of the bolus, reduced cough reflex - Penetration-Aspiration Scale Score Thin Liquid via teaspoon Result: 1= does not enter airway Comment: Pt nodded off during first trial and required verbal cues to become alert and complete swallow. Thin Liquid via teaspoon Trial 2 Result: 2= enter airway/above vocal folds/ejected Thin Liquid via small single sip from cup Result: 1= does not enter airway Thin Liquid via sequential sips from cup Result: 1= does not enter airway Honey Thick Liquid via small single sip from cup Result: 1= does not enter airway Honey Thick Liquid via teaspoon Comment: Could not score as the patient tucked her chin and rotated her head R during the swallow, but the laryngeal vestibule was clear after the swallow. Honey Thick Liquid via teaspoon Trial 2 Result: 1= does not enter airway Pudding via teaspoon with esophageal screen Result: 1= does not enter airway 1/4 Cookie Comment: Could not score. No efforts made at mastication. PATIENT RELATIONS REPRESENTATIVE removed cookie from the oral cavity. Thin Liquid via single sip from straw Result: 1= does not enter airway Barium Tablet with water Comment: Could not score. No oral clearance. Barium Tablet with pudding Result: 1= does not enter airway - Oral Phase Labial Seal: Escape progressing to mid-chin Tongue Control During Bolus Hold: Posterior escape of greater than half of bolus Bolus Preparation/Mastication: Minimal chewing/mashing with majority of bolus unchewed - No mastication efforts made with 1/4 cookie Bolus Transport/Lingual Motion: Slowed tongue motion Oral Residue: Minimal to no clearance - In cookie trial and barium tablet with water - Pharyngeal Phase Initiation of Pharyngeal Swallow: Bolus head in pyriforms Soft Palate Elevation: No bolus between soft palate and pharyngeal wall Laryngeal Elevation: Partial superior movement thyroid cart/partial apprx aryt-epig petiole Anterior Hyoid Excursion: Partial anterior movement Epiglottic Movement: Complete inversion Laryngeal Vestibule Closure at Height of Swallow: Incomplete; narrow column of air/contrast in laryngeal vestibule Pharyngeal Stripping Wave: Present - complete Pharyngoesophageal Segment Opening: Parital distension and partial duration; parital obstruction of flow Tongue Base Retraction: Narrow column of contrast between tongue base & post. pharyngeal wall Pharyngeal Residue: Collection of residue within or on pharyngeal structures - Esophageal Phase Esophageal Clearance: Esophageal retention - Min retention of pudding in mid esophagus slowly emptying during screen - Diagnosis/Impression Diagnosis: Mild-moderate oropharyngeal phase dysphagia (R13.12) Impression: The oral phase is marked by... -No efforts made at mastication of 1/4 cookie. PATIENT RELATIONS REPRESENTATIVE cleared the bite from the patient's oral cavity. -No oral clearance of barium tablet with water. The patient expectorated the bite. -Decreased bolus control, especially noted with posterior loss of >1/2 of thin by tsp to the pyriforms prior to swallow onset. She cleared tablet from oral cavity when placed in pudding. -Slowed tongue motion for A-P transport. The pharyngeal phase is marked by... -Mildly decreased airway closure during the swallow due to decreased laryngeal elevation and anterior hyoid excursion. -Mildly decreased tongue base retraction resulting in collection of pharyngeal residue in the vallecula after the swallow. -Laryngeal penetration of thin by tsp during the swallow with full ejection from the laryngeal vestibule. No aspiration observed during the study. - Recommendations Diet: Puree Textures, Thin Liquids Compensatory Strategies: Small Bites, Small Sips, Slow Rate, Feed only when alert, Sitting upright, Remain sitting upright for 30 minutes after PO intake Supervision: Assist as needed, 1:1 Close Supervision Recommend Repeat Modified Barium Swallow: No Need for Skilled Speech Therapy Services: Yes Comment: Will recommend the patient for skilled dysphagia therapy to address deficits in oropharyngeal swallow function. Would consider the patient for oropharyngeal strengthening to improve lingual coordination/strength, hyolaryngeal elevation/excursion, and tongue base retraction (CTAR, Ame, lingual resistance exercises). Will recommend treating PATIENT RELATIONS REPRESENTATIVE trial transitional snacks or ground textures to determine appropriateness for diet advancement of solid textures at bedside. The patient would benefit from thorough education regarding diet recommendations and recommended compensatory strategies. Education Completed: 1. Described result of evaluation., 7. Pt requires further education on strategies & risks. - Status Active ST Patient: Active - Contact Information [facility] Speech Therapy:: Shannan Andrea M.A. [facility]-PATIENT RELATIONS REPRESENTATIVE Speech-Language Pathologist [facility] [address] [place] [address] [email or web address] [phone] 05/12/22 16:37
== END 2022-05-12 15:47 | disposition skilled nursing facility (03) | DRG 542 ==
LOC: ED 14:23 → PCU 14:26
PROVIDERS: Nurse Practitioner Family; Admitting Provider Internal Medicine; Emergency Provider Student in an Organized Health Care Education/Training Program; PCP Internal Medicine; Visit Provider Student in an Organized Health Care Education/Training Program
DX: M80.08XA Age-related osteoporosis with current pathological fracture, vertebra(e), initial encounter for fracture (principal); J69.0 Pneumonitis due to inhalation of food and vomit; E43 Unspecified severe protein-calorie malnutrition; K52.1 Toxic gastroenteritis and colitis; N39.0 Urinary tract infection, site not specified; E11.9 Type 2 diabetes mellitus without complications; B96.1 Klebsiella pneumoniae [K. pneumoniae] as the cause of diseases classified elsewhere; I48.91 Unspecified atrial fibrillation; E87.6 Hypokalemia; E78.5 Hyperlipidemia, unspecified; I25.5 Ischemic cardiomyopathy; I10 Essential (primary) hypertension; I25.10 Atherosclerotic heart disease of native coronary artery without angina pectoris; E87.70 Fluid overload, unspecified; K21.9 Gastro-esophageal reflux disease without esophagitis; I25.2 Old myocardial infarction; E83.42 Hypomagnesemia; R19.7 Diarrhea, unspecified; R62.7 Adult failure to thrive; G89.29 Other chronic pain; Z20.822 Contact with and (suspected) exposure to COVID-19; R09.02 Hypoxemia; T36.95XA Adverse effect of unspecified systemic antibiotic, initial encounter; R29.6 Repeated falls; Z68.27 Body mass index [BMI] 27.0-27.9, adult; Z66 Do not resuscitate; Z78.0 Asymptomatic menopausal state; Z79.84 Long term (current) use of oral hypoglycemic drugs; Z95.0 Presence of cardiac pacemaker; Z95.5 Presence of coronary angioplasty implant and graft; Y92.239 Unspecified place in hospital as the place of occurrence of the external cause
CPT/HCPCS: 36415; 71045; 72100; 74230; 80048; 80053; 81002; 82962; 83735; 83880; 84100; 84443; 84484; 85025; 85027; 87077; 87086; 87088; 87186; 87426; 87493; 87506; 92523; 92610; 92611; 93005; 93306; 94002; 94640; 97110; 97162; 97165; 97530; 97535; 97802; 99285; J7040; J7050; P9612; A4216; J1940; J2405

== ENCOUNTER 2022-05-12 15:53 | Inpatient (IN) | payer MEDICARE, SELFPAY ==
[2022-05-12 15:57] VITALS: BP 133/62; PULSE 61; RESP 16; TEMP 36.4; O2SAT 97; BMI 27.1
[2022-05-12 16:00] VITALS: PULSE 61; RESP 16; TEMP 36.4; O2SAT 97
--- NOTE | 2022-05-12 16:39 | NURSING ---
Spoke with Norma Vazquez patient's POA, per her statement pt is to remain a DNRCCA-No intubation and she would also like the patient to receive her 2nd Covid19 booster.
[2022-05-12 16:46] LABS: Bedside Glucose 145 mg/dL (74-106)
[2022-05-12] MEDS: Cefdinir 300 MG Capsule PO (18:03)
[2022-05-12] MEDS: Gabapentin 100 MG Capsule PO (18:03)
[2022-05-12] MEDS: Ergocalciferol 1.25 MG (50, 000 UNIT) Capsule PO (18:03)
--- NOTE | 2022-05-12 18:55 | PCM.HP.STD ---
[facility] - General General Date of Admission: 05/12/22 Date of Service: 05/12/22 Chief Complaint: Back pain due to vertebral compression fx related to a fall, UTI and CHF. HPI Narrative ASHLEE MALDONADO, is a 82 F who presented to the ED at [facility] on 05/08/22 c/o severe back pain. She has known vertebral compression fractures and sees Dr. Hernandez for pain management. A vertebroplasty was planned for her but, she was confused about the date. UA in the ED revealed a UTI and she was started on Rocephin. Urine culture grew Klebsiella. She was transitioned to Cedinir prior to transfer to TCU. While in the hospital she developed acute on chronic congestive heart failure. An echocardiogram showed a 20 to 25% ejection fraction with 3+ mitral regurgitation. She was diuresed and improved quickly. While in the hospital she was seen by PT/OT and therapy was recommended. She was transferred to the transitional care unit on 05/12/2022 for ongoing PT/OT and is scheduled for at vertebroplasty by Dr. Dr. Hernandez on 05/08/2022. [facility] Medical History Abdominal pain Abnormal results of thyroid function studies Anemia Anxiety and depression Back pain Back pain due to injury CAD (coronary artery disease) Chest pain Closed left hip fracture Compression fracture Current use of insulin Dark stools Depression Depression Depression Diarrhea Essential hypertension Fall Gastroesophageal reflux disease Gastroesophageal reflux disease History of hemorrhoids History of pulmonary embolus (PE) Hyperlipidemia Iron deficiency anemia Irritable bowel Ischemic cardiomyopathy Low back pain Lumbar compression fracture Lumbar spinal stenosis Myocardial infarct Non-smoker Orthopedic aftercare Osteoporosis Post-menopausal Sleep apnea 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) Type II diabetes mellitus Vitamin D deficiency Home Medications lisinopril 20 mg tablet 40 mg PO DAILY blood pressure 06/14/21 [History Last Taken Unknown] nitroglycerin 0.4 mg sublingual tablet 0.4 mg sublingual Q5M PRN Cardiac/Chest Pain #25 tabs 12/23/21 [Rx Last Taken Unknown] amlodipine 5 mg tablet 5 mg PO DAILY blood pressure 12/30/21 [History Last Taken Unknown] atenolol 25 mg tablet 50 mg PO DAILY blood pressure 12/30/21 [History Last Taken Unknown] blood sugar diagnostic 12/30/21 [History Last Taken Unknown] blood-glucose meter 12/30/21 [History Last Taken Unknown] cholecalciferol (vitamin D3) 1,250 mcg (50,000 unit) capsule 1,250 mcg PO QWEEK vitamin 12/30/21 [History Last Taken Unknown] isosorbide mononitrate 60 mg tablet,extended release 24 hr 60 mg PO DAILY heart #90 tabs 02/07/22 [Rx Last Taken Unknown] acetaminophen 500 mg tablet (Tylenol Extra Strength) 1,000 mg PO Q6H PRN Pain 02/21/22 [History Last Taken Unknown] aspirin 81 mg chewable tablet 81 mg PO DAILY@0800 Heart health 05/12/22 [History Last Taken Unknown] cefdinir 300 mg capsule 300 mg PO BID Antibiotic 05/12/22 [History Last Taken Unknown] furosemide 40 mg tablet (Lasix) 40 mg PO DAILY Fluid retention 05/12/22 [History Last Taken Unknown] gabapentin 100 mg capsule 100 mg PO TIDCM Neuropathy 05/12/22 [History Last Taken Unknown] lidocaine 5 % topical patch 1 patch topical DAILY Pain 05/12/22 [History Last Taken Unknown] menthol 0.44 %-zinc oxide 20.6 % topical ointment (Calmoseptine) 1 applic topical TID Skin protection 05/12/22 [History Last Taken Unknown] nutrition tx glu intol,lac-free,soy-fiber 0.06 gram-1.2 kcal/mL liquid (Glucerna 1.2 Nomran) 120 ml PO 4X/DAY Supplement 05/12/22 [History Last Taken Unknown] Allergy/AdvReac Type Severity Reaction Status Date / Time latex Allergy Other Verified 03/11/22 10:02 Family History Father CVA (cerebral vascular accident) Mother Heart disease CAD (coronary artery disease) Sister CAD (coronary artery disease) Daughter CAD (coronary artery disease) Myocardial infarction Daughter Diabetes Surgical History H/O: hysterectomy History of carpal tunnel release History of cholecystectomy History of cholecystectomy History of coronary artery stent placement History of heart artery stent History of kyphoplasty History of permanent cardiac pacemaker placement (12/30/21) Hx of cholecystectomy Hx of knee surgery S/P hysterectomy Social History household members: none housing: house Smoking Status: Never smoker alcohol intake: never substance use type: does not use what type of physical activity do you participate in: none do you feel safe at home: Yes ROS Constitutional Constitutional: Reports fatigue and weakness; Denies anorexia, change in weight, chills, fever(s) or night sweats Eyes Eyes: Denies blurry vision, change in vision, eye pain or loss of vision ENT HEENT: Reports dysphagia; Denies abnormal hearing, headache(s), hearing loss, nasal congestion or sore throat Cardiovascular Cardiovascular: Reports dyspnea on exertion; Denies chest pain, edema, lightheadedness, orthopnea, palpitations, paroxysmal nocturnal dyspnea or syncope Respiratory/Chest Respiratory/Chest: Reports shortness of breath with exertion; Denies cough, dyspnea, shortness of breath at rest or wheezing Gastrointestinal Gastrointestinal: Reports abdominal pain, change in stool character and other Details: She tells me that the pain in her low back radiates around both flanks and into the abdomen at times. The pain medication helps but, the pain gets worse with movement. ; Denies constipation, diarrhea, dyspepsia, hematemesis, hematochezia, nausea or vomiting Genitourinary Genitourinary: Reports low back pain and urinary incontinence; Denies dysuria, hematuria, nocturia, urinary frequency, urinary hesitancy or urinary urgency Musculoskeletal Musculoskeletal: Reports back pain; Denies joint pain, joint swelling, neck pain or radiating pain into limb Integumentary Integumentary: Reports alopecia and dry skin; Denies jaundice or rash Neurologic Neurologic: Denies confusion, disequilibrium, dizziness, focal weakness, headache(s), paresthesias, seizures or tremor(s) Psychiatric Psychiatric: Denies anxiety, depression, homicidal ideation or suicidal ideation Endocrine Endocrinology: Denies change in body appearance, polydipsia or polyuria Hematologic/Lymphatic Hematologic/Lymphatic: Denies easy bleeding, easy bruising or lymphadenopathy Allergic/Immunologic Allergic/Immunologic: Denies rhinitis, eczemia or asthma Vital Signs Vital Signs Vital Signs: 05/12/22 16:00 05/12/22 15:57 05/12/22 16:00 Temperature 97.5 F L 97.5 F L Temperature Source Temporal Temporal Pulse Rate 61 61 Pulse Rhythm Irregular Pulse Strength Normal (2+) Respiratory Rate 16 16 Respiratory Effort Normal Non-Labored Respiratory Depth Normal Respiratory Pattern Normal Blood Pressure 133/62 H Blood Pressure Mean 85 Blood Pressure Source Monitor Monitor Blood Pressure Position Semi-Fowlers Semi-Fowlers Blood Pressure Location Right Arm Right Arm Pulse Ox 97 97 Oxygen Delivery Method Room Air Room Air Room Air Weight Weight: 125 lb 4 oz Body Mass Index (BMI) 27.1 Physical Exam Const alert, oriented x3 and no apparent distress Constitutional Narrative: She is sitting upright in bed. When she leaned forward for me to listen to the lungs posteriorly she had increased back pain. General Appearance: cooperative and well kempt HEENT normocephalic and moist oral mucous membranes Eyes PERRL and EOMs intact bilaterally General Eye: other Other Details: wears glassess ; Negative for normal appearance of both eyes Neck supple Lymph Lymphatic: no lymphadenopathy noted Chest Chest: symmetrical chest wall rise Resp normal respiratory effort Resp Narrative: Because she had increased back pain with attempting to lean forward in the bed I listened only anterior and lateral. The lungs were CTA. She is not tachypneic and she has no cnoversational dyspnea. No accessory muscle use. Breathing is not labored. Cardio regular rate, regular rhythm and no gallops Heart Sounds: murmur; Negative for rub GI normal to inspection, nondistended, normoactive bowel sounds, soft to palpation and non-tender Extremity Extremity Narrative: no ankle edema, no calf pain Skin no jaundice General Skin Exam: no breakdown Rashes: no rashes Trauma: no lacerations or abrasions Wounds: Negative for wounds noted Neuro Neuro Narrative: No focal neurologic deficits. CN's II through XII are grossly intact. Oreiented to person, place, and can tell me who the president is and where she lives. Speech is normal. She is appropriate and thought process seems intact. Gait (Neuro): unable to assess gait Psych mental status grossly normal, thought process normal, cooperative, affect normal, speech normal, denies hallucinations, denies homicidal ideation and denies suicidal ideation Psych Narrative: Makes good eye contact when I am talking to her and she is pleasant. Results Lab / Micro Data Result Diagrams: 05/13/22 05:16 05/13/22 05:16 Labs: Laboratory Results - last 24 hr 05/12/22 16:18: POC Glucose 145 H Assessment & Plan Assessment/Plan (1) UTI (urinary tract infection): PLAN: Will continue Cefdinir. (2) Lumbar compression fracture: PLAN: Continue the current pain regimen. Scheduled for a vertebroplasty with Dr. Hernandez on 05/16/22. Continue current pain regimen. (3) Low back pain: (4) Lumbar spondylosis: PLAN: Follows up with Dr. Dr. Hernandez on a regular basis and receives epidural injections. (5) Diarrhea: PLAN: Enteric pathogen panel and C. difficile are negative. Patient has a history of irritable bowel syndrome and diarrhea has improved. (6) Type II diabetes mellitus: QUALIFIERS: Qualified Code(s): Z79.4 - correction (current) use of insulin PLAN: Controlled (7) History of permanent cardiac pacemaker placement: (8) Essential hypertension: (9) Systolic and diastolic CHF, chronic: PLAN: Acute exacerbation in the hospital resolved quickly with diuresis. She is now at baseline. She had a visit with cardiology earlier today. (10) Osteoporosis: QUALIFIERS: Osteoporosis type: age-related Presence of current pathological fracture: without current pathological fracture Qualified Code(s): M81.0 - Age-related osteoporosis without current pathological fracture PLAN: Plan Plan is to continue PT/OT and have vertebroplasty on Thursday with Dr. Hernandez. Ashlee lives alone and must be safe and able to do her own ADL's prior to being discharged. for janina kirkpatrick and SCD's for DVT prophylaxis. Schedule Tylenol 1,000 mg every 8 hours. Continue Gabapentin Add Tramadol 25 mg for pain 4-6 and 50 mg for pain 7-10 K Pad to the low back PT/OT to maintain strength and mobility No NSAID's or pharmacologic DVT prophylaxis due to upcoming scheduled vertebroplasty Charges/Coding Visit Charges Inpatient E&M: 47326 SNF Init L1
[2022-05-12] MEDS: Acetaminophen 500 MG Tablet 1000 MG PO (20:59)
[2022-05-12] MEDS: Menthol/Lanolin/Calamine/Znox 113 GM Tube 1 APPLIC TOPICAL (21:00)
[2022-05-12 23:45] LABS: Bedside Glucose 142 mg/dL (74-106)
[2022-05-13 05:41] VITALS: BP 142/52; PULSE 62
[2022-05-13] MEDS: Lisinopril 40 MG Tablet PO (05:42)
[2022-05-13] MEDS: Cefdinir 300 MG Capsule PO ×2 (05:42→17:32)
[2022-05-13] MEDS: amLODIPine 5 MG Tablet PO (05:42)
[2022-05-13] MEDS: Isosorbide Mononitrate 60 MG Tablet PO (05:42)
[2022-05-13] MEDS: Menthol/Lanolin/Calamine/Znox 113 GM Tube 1 APPLIC TOPICAL ×3 (05:42→21:22)
[2022-05-13] MEDS: Furosemide 40 MG Tablet PO (05:42)
[2022-05-13] MEDS: Atenolol 50 MG Tablet PO (05:42)
[2022-05-13 05:44] LABS: Absolute Lymphocyte Count 1.77 X10^3/uL (0.83-4.51); Absolute Neutrophil Count 3.7 X10^3/uL (2.0-7.7); Basophil# 0.05 X10^3/uL; Basophil% 0.8 % (0-1); Eosinophil# 0.27 X10^3/uL; Eosinophils% 4.2 % (0-5); Hematocrit 33.5 % (37-47); Hemoglobin 10.6 g/dL (12.0-15.0); Lymphocyte # 1.77 X10^3/ul (0.83-4.51); Lymphocyte % 27.8 % (19-41); Mean Corp Hgb Conc 31.6 g/dL (32-36); Mean Corpuscular Hgb 27.8 pg (27.0-32.0); Mean Corpuscular Volume 87.9 fL (81-99); Mean Platelet Vol. 11.1 fl (6.2-12.0); Monocyte# 0.55 X10^3/uL; Monocyte% 8.6 % (0-10); NRBC Flagged by Analyzer 0 % (0-5); Neutrophil % 58.1 % (47-70); Platelet Count 242 K/mm3 (150-450); RBC Distribution Width SD 51.6 fl (35.1-43.9); Red Blood Count 3.81 M/mm3 (4.2-5.4); White Blood Count 6.4 K/mm3 (4.4-11.0)
[2022-05-13 06:20] LABS: Anion Gap 6 (5-15); BUN 13 mg/dL (7-18); Calcium,Total 9.5 mg/dL (8.5-10.1); Chloride 101 mmol/L (98-107); Creatinine, Serum 0.43 mg/dL (0.55-1.02); EST Glomerular Filtration Rate 148 mL/min (>60); Est Glom Filt Rate - Afr Amer 179 mL/min (>60); Glucose 139 mg/dL (74-106); Potassium 3.2 mmol/L (3.5-5.1); Sodium Level 138 mmol/L (136-145)
[2022-05-13 06:30] LABS: Bedside Glucose 159 mg/dL (74-106)
[2022-05-13] MEDS: Aspirin 81 MG TAB.CHEW PO (07:48)
[2022-05-13] MEDS: Gabapentin 100 MG Capsule PO ×3 (07:48→17:31)
[2022-05-13] MEDS: Acetaminophen 500 MG Tablet 1000 MG PO ×3 (07:53→21:22)
[2022-05-13] MEDS: Lidocaine 5% Patch 2 PATCH TOPICAL (10:59)
[2022-05-13] MEDS: Tuberculin,Purif.prot.deriv. 50 TU/ML Vial 0.1 ML ID (11:00)
[2022-05-13 11:11] LABS: Bedside Glucose 191 mg/dL (74-106)
[2022-05-13 15:20] VITALS: BP 121/68; PULSE 60; RESP 16; TEMP 36.1; O2SAT 90
[2022-05-13 16:25] LABS: Bedside Glucose 151 mg/dL (74-106)
[2022-05-13 21:41] LABS: Bedside Glucose 168 mg/dL (74-106)
[2022-05-14] MEDS: Acetaminophen 500 MG Tablet 1000 MG PO ×3 (04:14→22:34)
[2022-05-14] MEDS: Menthol/Lanolin/Calamine/Znox 113 GM Tube 1 APPLIC TOPICAL ×3 (04:15→22:32)
[2022-05-14 05:54] VITALS: BP 139/68; PULSE 61
[2022-05-14] MEDS: Isosorbide Mononitrate 60 MG Tablet PO (05:58)
[2022-05-14] MEDS: Lisinopril 40 MG Tablet PO (05:58)
[2022-05-14] MEDS: Furosemide 40 MG Tablet PO (05:58)
[2022-05-14] MEDS: Cefdinir 300 MG Capsule PO ×2 (05:58→17:45)
[2022-05-14] MEDS: Atenolol 50 MG Tablet PO (05:59)
[2022-05-14] MEDS: amLODIPine 5 MG Tablet PO (05:59)
[2022-05-14 06:36] LABS: Bedside Glucose 164 mg/dL (74-106)
[2022-05-14] MEDS: Gabapentin 100 MG Capsule PO ×3 (08:57→17:47)
[2022-05-14] MEDS: Aspirin 81 MG TAB.CHEW PO (08:57)
[2022-05-14] MEDS: Lidocaine 5% Patch 2 PATCH TOPICAL (08:58)
--- NOTE | 2022-05-14 11:20 | PHA.CONS_ITS ---
TCU RX Drug Regimen Review Subjective: TCU Admisison. 82 YOF presented to the ER with multiple falls over the last couple of months. Admitted to the hospital for management of back pain secondary to lumbar compression fracture, hypokalemia, hypomagnesemia, and UTI. Resident started on ceftriaxone, culture grew Klebsiella, transitioned to cefdinir. Admitted to TCU with debility for strengthening and rehabilitation. Objective: Allergies latex Allergy (Verified 03/11/22 10:02) Other RASH ON HANDS WHEN SHE USED LATEX GLOVES WHEN WORKED AT [facility] 17 YRS AGO Current Medications Generic Name Dose Route Start Last Admin Trade Name Freq PRN Reason Stop Dose Admin Acetaminophen 1,000 mg 05/13/22 07:15 05/14/22 04:14 Acetaminophen 500 Mg Tablet PO 1,000 mg Q8 DISHA Administration Amlodipine Besylate 5 mg 05/13/22 06:00 05/14/22 05:59 Amlodipine 5 Mg Tablet PO 5 mg DAILY DISHA Administration Aspirin 81 mg 05/13/22 08:00 05/14/22 08:57 Aspirin 81 Mg Tab.Chew PO 81 mg DAILYCM DISHA Administration Atenolol 50 mg 05/13/22 06:00 05/14/22 05:59 Atenolol 50 Mg Tablet PO 50 mg DAILY DISHA Administration Bisacodyl 10 mg 05/12/22 16:20 Bisacodyl 10 Mg Suppository RC DAILY PRN Constipation Calamine/Phenol 1 applic 05/12/22 22:00 05/14/22 04:15 Menthol/Lanolin/Calamine/Znox 113 Gm Tube TOPICAL 1 applic TID DISHA Administration Protocol Cefdinir 300 mg 05/12/22 18:00 05/14/22 05:58 Cefdinir 300 Mg Capsule PO 05/15/22 06:01 300 mg BID DISHA Administration Ergocalciferol 1.25 mg 05/12/22 18:00 05/12/22 18:03 Ergocalciferol 1.25 Mg (50, 000 Unit) Capsule PO 1.25 mg QWEEK@1000 DISHA Administration Furosemide 40 mg 05/13/22 06:00 05/14/22 05:58 Furosemide 40 Mg Tablet PO 06/11/22 06:01 40 mg DAILY DISHA Administration Gabapentin 100 mg 05/12/22 17:45 05/14/22 08:57 Gabapentin 100 Mg Capsule PO 06/11/22 12:46 100 mg TIDCM DISHA Administration Isosorbide Mononitrate 60 mg 05/13/22 06:00 05/14/22 05:58 Isosorbide Mononitrate 60 Mg Tablet PO 08/10/22 06:01 60 mg DAILY DIHSA Administration Lidocaine 2 patch 05/13/22 10:00 05/14/22 08:58 Lidocaine 5% Patch TOPICAL 2 patch DAILY@1000 DISHA Administration Protocol Lisinopril 40 mg 05/13/22 06:00 05/14/22 05:58 Lisinopril 40 Mg Tablet PO 40 mg DAILY DISHA Administration Nitroglycerin 0.4 mg 05/12/22 16:31 Nitroglycerin (Inpatient Use) 0.4 Mg Tab.Subl SL Q5M PRN CARDIAC/CHEST PAIN Nutritional Formula (Lactose Free) 120 ml 05/12/22 17:00 05/14/22 04:16 Glucerna Shake 120 Ml Liquid PO Not Given 4X/DAY [facility] Tramadol HCl 0 mg 05/13/22 07:08 Tramadol 50 Mg Tablet PO Q6H PRN PRN Pain Score 4-10 Tuberculin PPD 0.1 ml 05/20/22 10:00 Tuberculin,Purif.Prot.Deriv. 50 Tu/Ml Vial ID 05/20/22 10:01 X1 ONE Problem List (Last Reviewed 05/13/22 @ 06:[address] Bharati Eldridge, ) Systolic and diastolic CHF, chronic (Chronic) UTI (urinary tract infection) (Acute) Lumbar compression fracture (Acute) Diarrhea (Acute) Low back pain (Chronic) Lumbar spondylosis (Acute) Type II diabetes mellitus (Chronic) History of permanent cardiac pacemaker placement (Acute 12/30/21) Essential hypertension (Chronic) Osteoporosis (Acute) Vital Signs Temp Pulse Resp BP Pulse Ox O2 Del Method 96.9 F L 61 16 139/68 H 90 Room Air 05/13/22 15:20 05/14/22 05:54 05/13/22 15:20 05/14/22 05:54 05/13/22 15:20 05/13/22 15:20 Oxygen Delivery Method Room Air Weight: 56.835 kg Body Mass Index (BMI) 27.1 Sodium 138 mmol/L (136-145) 05/13/22 05:16 Potassium 3.2 mmol/L (3.5-5.1) L 05/13/22 05:16 Chloride 101 mmol/L (98-107) 05/13/22 05:16 Carbon Dioxide 31.0 mmol/L (21.0-32.0) 05/13/22 05:16 Anion Gap 6 (5-15) 05/13/22 05:16 BUN 13 mg/dL (7-18) 05/13/22 05:16 Creatinine 0.43 mg/dL (0.55-1.02) L 05/13/22 05:16 Est GFR (MDRD) Af Amer 179 mL/min (>60) 05/13/22 05:16 Est GFR (MDRD) Non-Af 148 mL/min (>60) 05/13/22 05:16 BUN/Creatinine Ratio 30.0 RATIO (10-20) H 05/13/22 05:16 Glucose 139 mg/dL (74-106) H 05/13/22 05:16 Assessment/Plan: 1. Pain: acetaminophen 1000mg PO Q8, tramadol 25mg (pain 4-5) or 50mg (pain 7- 10) PO Q6H PRN pain, lidocaine patch 5% 2 patches topically to the lower back once daily. Resident has not required any doses of tramadol. Please continue to monitor for increased pain, PRN usage, renal function and rash. 2. CAD/CHF/hypertension: amlodipine 5mg PO daily, atenolol 50mg PO daily, aspirin 81mg PO DAILYCM, furosemide 40mg PO daily, isosorbide mononitrate 60mg PO daily, lisinopril 40mg PO daily and nitroglycerin 0.4mg SL Q5M PRN chest pain. Please continue to monitor BP (last 139/68), HR (last 61), S/S of bleeding, hemoglobin (last 10.6g/dL), swelling, potassium (last 3.2mEq/L), sodium (last 138mmol/L), cough and renal function. Resident has not required any doses of nitroglycerin. 3. Klebsiella UTI: cefdinir 300mg PO BID thry 05/15/22. Please continue to monitor for S/S of infection, diarrhea and renal function. 4. Vitamin D deficiency: ergocalciferol 1.25mg PO weekly. Please continue to monitor vitamin D levels (last 11/18/21). 5. Bowel: bisacodyl 10mg RC daily PRN constipation. Please continue to monitor for constipation and PRN usage. Resident has not required doses. Had documented bowel movements today. Assessment/Plan for indications treated with psychotropic medications: 1. Back pain secondary to lumbar compression fracture: gabapentin 100mg PO TIDCM. Resident just started this medication and it is being used for pain. GDR not appropriate. Please continue to monitor for pain, confusion and renal function. This medication is on the BEERs list for falls which is why the resident came to the ER. Please continue to monitor for falls. Based on CrCl of 54.1 mL/min (using adjusted BW and rounded SCr of 0.6 mg/dL), dose of gabapentin should be 400-1400mg in 2 doses. Please consider changing dose to 200mg BID. Thanks. Medical chart and medication regimen reviewed. The following medication irregularities or issues were identified: *1. Gabapentin 100mg PO TIDCM. Based on CrCl of 54.1 mL/min (using adjusted BW and rounded SCr of 0.6 mg/dL), dose of gabapentin should be 400-1400mg in 2 divided doses. Please consider changing dose to 200mg BID. Thanks. Date of Note:: 05/14/22
[2022-05-14] MEDS: Glucerna Shake 120 ML LIQUID PO ×3 (12:58→22:32)
[2022-05-14 16:00] VITALS: BP 117/55; PULSE 62; RESP 14; TEMP 36.7; O2SAT 93
[2022-05-14 22:30] VITALS: PULSE 67; RESP 16; O2SAT 96
[2022-05-15] MEDS: Furosemide 40 MG Tablet PO (05:17)
[2022-05-15] MEDS: Isosorbide Mononitrate 60 MG Tablet PO (05:17)
[2022-05-15] MEDS: Lisinopril 40 MG Tablet PO (05:17)
[2022-05-15] MEDS: amLODIPine 5 MG Tablet PO (05:18)
[2022-05-15] MEDS: Glucerna Shake 120 ML LIQUID PO ×4 (05:18→20:47)
[2022-05-15] MEDS: Menthol/Lanolin/Calamine/Znox 113 GM Tube 1 APPLIC TOPICAL (05:18)
[2022-05-15] MEDS: Atenolol 50 MG Tablet PO (05:18)
[2022-05-15] MEDS: Cefdinir 300 MG Capsule PO (05:18)
[2022-05-15] MEDS: Acetaminophen 500 MG Tablet 1000 MG PO ×3 (05:18→20:47)
[2022-05-15 06:41] LABS: Bedside Glucose 171 mg/dL (74-106)
[2022-05-15] MEDS: Aspirin 81 MG TAB.CHEW PO (09:02)
[2022-05-15] MEDS: Lidocaine 5% Patch 2 PATCH TOPICAL (09:02)
[2022-05-15] MEDS: Gabapentin 100 MG Capsule PO ×3 (09:02→18:03)
--- NOTE | 2022-05-15 09:33 | CASEMGMT ---
Social Work SW met with pt to complete assessment; SW introduced self and role of SW. Contacts were verified and pt HCPOA and preferred contact is her dgt Ailyn Taylor. Pt confirms DNRCCA, no intubation. MOLST form previously completed. SW explained [facility] benefit and that next update is due 05/23 with expected discharge on 05/28. Pt plans to return home alone at time of discharge. Pt inquiring if insurance will pay for home health aids and SW informed that insurance will pay for a nurse or therapy if needed, but not an aid to help with bleach maker. Pt is frustrated by this. Pt states her family lives close and check on her daily, but family cannot assist a lot as they work and have families to care for. SW will continue to follow for support and d/c planning. ANGELICA Yates
[2022-05-15] MEDS: Vancomycin 125 MG/5 ML Susp PO.SYRINGE PO ×2 (11:00→18:03)
[2022-05-15 11:47] VITALS: PULSE 64; RESP 18; O2SAT 99
[2022-05-15 14:48] VITALS: BP 136/57; PULSE 64; RESP 16; TEMP 35.7; O2SAT 98
[2022-05-16] MEDS: Vancomycin 125 MG/5 ML Susp PO.SYRINGE PO ×2 (00:23→16:53)
[2022-05-16] MEDS: Menthol/Lanolin/Calamine/Znox 113 GM Tube 1 APPLIC TOPICAL ×3 (00:23→22:02)
[2022-05-16] MEDS: Lisinopril 40 MG Tablet PO (05:00)
[2022-05-16] MEDS: Atenolol 50 MG Tablet PO (05:00)
[2022-05-16] MEDS: Acetaminophen 500 MG Tablet 1000 MG PO ×2 (05:02→22:01)
[2022-05-16 06:30] LABS: Bedside Glucose 158 mg/dL (74-106)
[2022-05-16] MEDS: Gabapentin 100 MG Capsule PO ×2 (08:30→16:53)
[2022-05-16] MEDS: Lidocaine 5% Patch 2 PATCH TOPICAL (08:30)
--- NOTE | 2022-05-16 09:40 | NURSING ---
Patient transported via bed and assist of 2 staff members to go to kyphoplasty procedure at this time.
[2022-05-16 16:00] VITALS: BP 134/62; PULSE 62; RESP 18; TEMP 36.4; O2SAT 97
--- NOTE | 2022-05-16 16:10 | NURSING ---
Patient's daughter updated on COVID positive staff member. Appreciative of update.
[2022-05-16] MEDS: Glucerna Shake 120 ML LIQUID PO ×2 (16:53→22:00)
--- NOTE | 2022-05-16 16:58 | NURSING ---
Patient returned to floor from procedure at this time. Given evening medications and pharmacy to be made aware oral Vancomycin doses need adjusted. Patient in position of comfort. Call light in reach. Will continue to monitor.
--- NOTE | 2022-05-16 17:11 | NURSING ---
Patient given Ultram 50mg at 1610 with effect before returning to floor.
[2022-05-16 21:00] VITALS: PULSE 68; RESP 16; O2SAT 96
[2022-05-17] MEDS: Vancomycin 125 MG/5 ML Susp PO.SYRINGE PO ×4 (00:04→18:11)
[2022-05-17] MEDS: Acetaminophen 500 MG Tablet 1000 MG PO ×3 (05:57→21:44)
[2022-05-17] MEDS: Menthol/Lanolin/Calamine/Znox 113 GM Tube 1 APPLIC TOPICAL ×3 (05:57→21:44)
[2022-05-17] MEDS: Lisinopril 40 MG Tablet PO (05:57)
[2022-05-17] MEDS: Furosemide 40 MG Tablet PO (05:57)
[2022-05-17] MEDS: Glucerna Shake 120 ML LIQUID PO ×4 (05:57→21:44)
[2022-05-17] MEDS: amLODIPine 5 MG Tablet PO (05:57)
[2022-05-17 06:15] VITALS: BP 126/47; PULSE 73; RESP 16
[2022-05-17] MEDS: Aspirin 81 MG TAB.CHEW PO (07:41)
[2022-05-17] MEDS: Gabapentin 100 MG Capsule PO ×3 (07:41→18:10)
[2022-05-17] MEDS: Atenolol 50 MG Tablet PO (07:42)
[2022-05-17] MEDS: Isosorbide Mononitrate 60 MG Tablet PO (07:42)
[2022-05-17 10:00] VITALS: PULSE 65; O2SAT 99
[2022-05-17] MEDS: Lidocaine 5% Patch 2 PATCH TOPICAL (10:00)
[2022-05-17 16:00] VITALS: BP 116/68; PULSE 60; RESP 16; TEMP 36.9; O2SAT 99
[2022-05-17] MEDS: traMADol 50 MG Tablet PO (16:06)
[2022-05-18] MEDS: Vancomycin 125 MG/5 ML Susp PO.SYRINGE PO ×4 (00:44→17:00)
[2022-05-18] MEDS: Glucerna Shake 120 ML LIQUID PO ×4 (05:48→22:03)
[2022-05-18] MEDS: Furosemide 40 MG Tablet PO (05:48)
[2022-05-18] MEDS: Acetaminophen 500 MG Tablet 1000 MG PO ×3 (05:49→22:03)
[2022-05-18] MEDS: amLODIPine 5 MG Tablet PO (05:52)
[2022-05-18] MEDS: Menthol/Lanolin/Calamine/Znox 113 GM Tube 1 APPLIC TOPICAL ×3 (05:52→22:03)
[2022-05-18] MEDS: Lisinopril 40 MG Tablet PO (05:52)
[2022-05-18 06:46] LABS: Bedside Glucose 125 mg/dL (74-106)
[2022-05-18] MEDS: Lidocaine 5% Patch 2 PATCH TOPICAL (08:57)
[2022-05-18] MEDS: Isosorbide Mononitrate 60 MG Tablet PO (08:58)
[2022-05-18] MEDS: Gabapentin 100 MG Capsule PO ×3 (08:58→17:00)
[2022-05-18] MEDS: Aspirin 81 MG TAB.CHEW PO (08:58)
[2022-05-18] MEDS: Atenolol 50 MG Tablet PO (08:58)
[2022-05-18 15:19] VITALS: BP 127/55; PULSE 61; RESP 16; TEMP 36; O2SAT 96
[2022-05-18 22:08] VITALS: PULSE 67; RESP 16; O2SAT 97
[2022-05-19] MEDS: Vancomycin 125 MG/5 ML Susp PO.SYRINGE PO ×4 (02:09→17:46)
[2022-05-19 06:35] LABS: Bedside Glucose 147 mg/dL (74-106)
[2022-05-19] MEDS: amLODIPine 5 MG Tablet PO (06:38)
[2022-05-19] MEDS: Lisinopril 40 MG Tablet PO (06:38)
[2022-05-19] MEDS: Glucerna Shake 120 ML LIQUID PO ×4 (06:38→21:18)
[2022-05-19] MEDS: Acetaminophen 500 MG Tablet 1000 MG PO ×3 (06:39→21:18)
[2022-05-19] MEDS: Furosemide 40 MG Tablet PO (06:39)
[2022-05-19 06:42] VITALS: BP 153/60; PULSE 61
[2022-05-19] MEDS: Aspirin 81 MG TAB.CHEW PO (08:04)
[2022-05-19] MEDS: Isosorbide Mononitrate 60 MG Tablet PO (08:05)
[2022-05-19] MEDS: Ergocalciferol 1.25 MG (50, 000 UNIT) Capsule PO (08:05)
[2022-05-19] MEDS: Atenolol 50 MG Tablet PO (08:05)
[2022-05-19] MEDS: Lidocaine 5% Patch 2 PATCH TOPICAL (08:05)
[2022-05-19] MEDS: Gabapentin 100 MG Capsule PO ×3 (08:06→17:46)
--- NOTE | 2022-05-19 11:42 | CASEMGMT ---
Social Work Brief interview for mental status (BIMS) and resident mood interview (PHQ-9) completed on this day. Parker MANCERA, JYOTIS
--- NOTE | 2022-05-19 11:51 | CASEMGMT ---
Social Work This web content & social media manager met with patient in room to discuss alternative discharge plans if patient is unable to return to home alone. Patient agreeable to speak with this web content & social media manager. This web content & social media manager broached topic of senior care and assisted living. Patient reports to be unable to afford private pay in a facility. Patient states to be open to senior care placement if that is where I need to go. Patient request for this web content & social media manager to call patient daughter, Ailyn to discuss further. Patient reports she takes care of all my stuff. This web content & social media manager updated patient that currently insurance is anticipating discharge by 05/28/2022 but undetermined if insurance will continue to approve or not. This web content & social media manager encouraged patient to participate in therapy and working towards regaining independence. Patient plans to keep working with therapy. This web content & social media manager educated patient on Medicaid application process and ability for Medicaid to assist with coverage of senior care if patient is not able to afford a senior care. This web content & social media manager provided patient with list of nursing homes that are local to patient geographical region as well as a list of assisted livings and a Medicaid application. Active support and listening provided. Telephone call to patient daughter, Ailyn. This web content & social media manager introduced self and web content & social media manager role. Ailyn agreeable to speak with this web content & social media manager. This web content & social media manager updated Ailyn on above information. Ailyn voiced understanding and plans to come and visit patient after work today to look over senior care/assisted living options and work on Medicaid application. Ailyn voiced concerns of patient returning to home currently as well. Social Work to continue to follow. Parker MANCERA, TEMO
[2022-05-19 15:51] VITALS: BP 146/56; PULSE 67; RESP 18; TEMP 35.8; O2SAT 97
[2022-05-20] MEDS: Vancomycin 125 MG/5 ML Susp PO.SYRINGE PO ×4 (00:53→17:59)
[2022-05-20 05:39] VITALS: BP 165/70; PULSE 63
[2022-05-20 05:39] LABS: Absolute Lymphocyte Count 1.63 X10^3/uL (0.83-4.51); Absolute Neutrophil Count 3.7 X10^3/uL (2.0-7.7); Basophil# 0.05 X10^3/uL; Basophil% 0.8 % (0-1); Eosinophil# 0.38 X10^3/uL; Hematocrit 32.4 % (37-47); Hemoglobin 9.8 g/dL (12.0-15.0); Lymphocyte # 1.63 X10^3/ul (0.83-4.51); Lymphocyte % 25.9 % (19-41); Mean Corp Hgb Conc 30.2 g/dL (32-36); Mean Corpuscular Hgb 27.1 pg (27.0-32.0); Mean Corpuscular Volume 89.8 fL (81-99); Mean Platelet Vol. 11.2 fl (6.2-12.0); Monocyte# 0.47 X10^3/uL; Monocyte% 7.5 % (0-10); NRBC Flagged by Analyzer 0 % (0-5); Neutrophil # 3.73 X10^3/uL (2.7-7.7); Neutrophil % 59.2 % (47-70); Platelet Count 274 K/mm3 (150-450); RBC Distribution Width CV 15.3 % (11.6-14.6); RBC Distribution Width SD 50.7 fl (35.1-43.9); Red Blood Count 3.61 M/mm3 (4.2-5.4); White Blood Count 6.3 K/mm3 (4.4-11.0)
[2022-05-20] MEDS: Furosemide 40 MG Tablet PO (05:52)
[2022-05-20] MEDS: Acetaminophen 500 MG Tablet 1000 MG PO ×2 (05:52→20:04)
[2022-05-20] MEDS: amLODIPine 5 MG Tablet PO (05:52)
[2022-05-20 06:02] LABS: Anion Gap 6 (5-15); BUN 12 mg/dL (7-18); BUN/Creat Ratio 27.6 RATIO (10-20); Calcium,Total 9.6 mg/dL (8.5-10.1); Chloride 105 mmol/L (98-107); Creatinine, Serum 0.44 mg/dL (0.55-1.02); EST Glomerular Filtration Rate 147 mL/min (>60); Est Glom Filt Rate - Afr Amer 178 mL/min (>60); Estimated Creatinine Clearance 38.92 ml/min; Glucose 156 mg/dL (74-106); Potassium 4.1 mmol/L (3.5-5.1); Sodium Level 139 mmol/L (136-145)
[2022-05-20 07:36] VITALS: BP 137/59; PULSE 62
[2022-05-20] MEDS: Lisinopril 40 MG Tablet PO (07:37)
[2022-05-20 08:01] LABS: Bedside Glucose 164 mg/dL (74-106)
[2022-05-20 08:10] LABS: Bedside Glucose 143 mg/dL (74-106)
[2022-05-20] MEDS: Aspirin 81 MG TAB.CHEW PO (09:03)
[2022-05-20] MEDS: Gabapentin 100 MG Capsule PO ×3 (09:03→17:59)
[2022-05-20] MEDS: Isosorbide Mononitrate 60 MG Tablet PO (09:03)
[2022-05-20] MEDS: Lidocaine 5% Patch 2 PATCH TOPICAL (09:04)
[2022-05-20] MEDS: Atenolol 50 MG Tablet PO (09:04)
[2022-05-20] MEDS: Tuberculin,Purif.prot.deriv. 50 TU/ML Vial 0.1 ML ID (10:07)
[2022-05-20] MEDS: COVID-19 VACC, MRNA(PFIZER)/PF 30 MCG/0.3 ML SYRINGE IM (12:02)
[2022-05-20 16:00] VITALS: BP 115/60; PULSE 63; RESP 16; TEMP 35.9; O2SAT 100
[2022-05-20] MEDS: Glucerna Shake 120 ML LIQUID PO ×2 (17:59→20:05)
[2022-05-20 22:00] VITALS: PULSE 64; RESP 16; O2SAT 98
[2022-05-21] MEDS: Vancomycin 125 MG/5 ML Susp PO.SYRINGE PO ×5 (00:15→23:30)
[2022-05-21] MEDS: Menthol/Lanolin/Calamine/Znox 113 GM Tube 1 APPLIC TOPICAL ×3 (05:16→19:48)
[2022-05-21] MEDS: Acetaminophen 500 MG Tablet 1000 MG PO ×3 (05:17→19:58)
[2022-05-21] MEDS: amLODIPine 5 MG Tablet PO (05:17)
[2022-05-21] MEDS: Furosemide 40 MG Tablet PO (05:17)
[2022-05-21] MEDS: Lisinopril 40 MG Tablet PO (05:18)
[2022-05-21 06:31] LABS: Bedside Glucose 150 mg/dL (74-106)
[2022-05-21] MEDS: Isosorbide Mononitrate 60 MG Tablet PO (09:12)
[2022-05-21] MEDS: Lidocaine 5% Patch 2 PATCH TOPICAL (09:12)
[2022-05-21] MEDS: Aspirin 81 MG TAB.CHEW PO (09:13)
[2022-05-21] MEDS: Atenolol 50 MG Tablet PO (09:13)
[2022-05-21] MEDS: Gabapentin 100 MG Capsule PO ×3 (09:13→17:30)
--- NOTE | 2022-05-21 10:56 | CASEMGMT ---
Social Work Plan of care meeting held. Patient present as well as patient daughter, Ailyn. Ailyn present via speaker phone. This director of social services communicating that next insurance update is due on 05/23/2022 with expected discharge by 05/28/2022 per insurance. This director of social services communicating that there is no guarantee of continued stay approval by insurance. This director of social services following up with patient and Ailyn on previous conversations about halfway placement/help in the home. Team is recommending for patient to have 24/7 care in the home or halfway placement. Ailyn reports to be submitting medicaid application this afternoon to [employer] and to have been talking about halfway placement. Ailyn reports that first choice is the [facility] ([facility]), patient then states not sure about going to a halfway. Patient states they are working on things at home. Patient states goal to return to home. Ailyn reports plan to still turn in Medicaid application in the event that patient is not able to discharge to home. Patient is agreeable to this director of social services calling the [facility] to see if they will accept Medicaid pending. Team recommending for patient to continue with further care and treatment on the Transitional Care Unit. Social Work to continue to follow. Parker MANCERA, TEMO
[2022-05-21] MEDS: Glucerna Shake 120 ML LIQUID PO (11:27)
--- NOTE | 2022-05-21 14:59 | CASEMGMT ---
Social Work Telephone call to [facility] ([facility])Valeri. This social work faculty member inquired about Medicaid pending. Valeri reports to accept Medicaid pending on a case by case basis and to be able to review clinicals. Clinical information sent via secure e-mail to Valeri at [email or web address]. Telephone call to Ailyn, This social work faculty member updated Ailyn on above information. Ailyn thanked this social work faculty member. Will continue to follow. Parker MANCERA, TEMO
[2022-05-21 15:45] VITALS: BP 142/61; PULSE 64; RESP 16; TEMP 36.5; O2SAT 100
[2022-05-21 17:59] VITALS: PULSE 64; RESP 16; O2SAT 100
[2022-05-22] MEDS: Vancomycin 125 MG/5 ML Susp PO.SYRINGE PO ×3 (05:44→17:40)
[2022-05-22] MEDS: amLODIPine 5 MG Tablet PO (05:44)
[2022-05-22] MEDS: Acetaminophen 500 MG Tablet 1000 MG PO ×3 (05:44→22:29)
[2022-05-22] MEDS: Lisinopril 40 MG Tablet PO (05:44)
[2022-05-22] MEDS: Furosemide 40 MG Tablet PO (05:44)
[2022-05-22] MEDS: Menthol/Lanolin/Calamine/Znox 113 GM Tube 1 APPLIC TOPICAL ×3 (05:45→22:32)
[2022-05-22 06:35] LABS: Bedside Glucose 152 mg/dL (74-106)
[2022-05-22] MEDS: Isosorbide Mononitrate 60 MG Tablet PO (09:32)
[2022-05-22] MEDS: Aspirin 81 MG TAB.CHEW PO (09:32)
[2022-05-22] MEDS: Atenolol 50 MG Tablet PO (09:32)
[2022-05-22] MEDS: Lidocaine 5% Patch 2 PATCH TOPICAL (09:33)
--- NOTE | 2022-05-22 09:34 | MDS.RN ---
Information for the mds was obtained from review of the clinical record, interview of resident, staff, and direct observation of resident's care.
[2022-05-22] MEDS: Gabapentin 100 MG Capsule PO ×3 (09:36→17:40)
--- NOTE | 2022-05-22 09:40 | CASEMGMT ---
Social Work This social media content manager to patient room. This social media content manager updated patient that referral has been sent to the [facility]. Patient voiced understanding and more agreeable to this today. Patient states there is now way I can go home. This social media content manager provided support and active listening. This social media content manager [facility]. Will continue to follow. Parker MANCERA, TEMO
[2022-05-22] MEDS: traMADol 50 MG Tablet PO ×2 (10:20→22:33)
[2022-05-22] MEDS: Glucerna Shake 120 ML LIQUID PO ×3 (13:16→22:29)
[2022-05-22 14:58] VITALS: BP 123/48; PULSE 60; RESP 18; TEMP 36.2; O2SAT 96
[2022-05-22 23:47] VITALS: PULSE 60; RESP 16; O2SAT 98
[2022-05-23] MEDS: Vancomycin 125 MG/5 ML Susp PO.SYRINGE PO ×4 (00:41→17:33)
[2022-05-23] MEDS: Lisinopril 40 MG Tablet PO (06:26)
[2022-05-23] MEDS: amLODIPine 5 MG Tablet PO (06:26)
[2022-05-23] MEDS: Furosemide 40 MG Tablet PO (06:26)
[2022-05-23] MEDS: Acetaminophen 500 MG Tablet 1000 MG PO ×3 (06:26→21:46)
[2022-05-23] MEDS: Menthol/Lanolin/Calamine/Znox 113 GM Tube 1 APPLIC TOPICAL ×3 (06:35→21:59)
[2022-05-23 07:30] LABS: Bedside Glucose 123 mg/dL (74-106)
[2022-05-23] MEDS: Aspirin 81 MG TAB.CHEW PO (08:36)
[2022-05-23] MEDS: Atenolol 50 MG Tablet PO (08:36)
[2022-05-23] MEDS: Isosorbide Mononitrate 60 MG Tablet PO (08:36)
[2022-05-23] MEDS: Gabapentin 100 MG Capsule PO ×3 (08:36→17:33)
[2022-05-23] MEDS: Lidocaine 5% Patch 2 PATCH TOPICAL (08:36)
[2022-05-23] MEDS: traMADol 50 MG Tablet PO (12:17)
[2022-05-23 15:32] VITALS: BP 111/49; PULSE 60; RESP 16; TEMP 35.9; O2SAT 97
[2022-05-23] MEDS: Glucerna Shake 120 ML LIQUID PO ×2 (17:35→21:49)
[2022-05-24] MEDS: Vancomycin 125 MG/5 ML Susp PO.SYRINGE PO ×5 (00:15→23:52)
[2022-05-24] MEDS: amLODIPine 5 MG Tablet PO (04:59)
[2022-05-24] MEDS: Furosemide 40 MG Tablet PO (04:59)
[2022-05-24] MEDS: Acetaminophen 500 MG Tablet 1000 MG PO ×3 (04:59→19:52)
[2022-05-24 05:00] VITALS: BP 129/63; PULSE 62
[2022-05-24] MEDS: Lisinopril 40 MG Tablet PO (05:00)
[2022-05-24] MEDS: Glucerna Shake 120 ML LIQUID PO ×4 (05:01→19:50)
[2022-05-24] MEDS: Menthol/Lanolin/Calamine/Znox 113 GM Tube 1 APPLIC TOPICAL ×3 (05:03→19:51)
[2022-05-24 06:25] LABS: Bedside Glucose 158 mg/dL (74-106)
[2022-05-24] MEDS: Gabapentin 100 MG Capsule PO ×3 (07:59→17:23)
[2022-05-24] MEDS: Atenolol 50 MG Tablet PO (08:00)
[2022-05-24] MEDS: Aspirin 81 MG TAB.CHEW PO (08:00)
[2022-05-24] MEDS: Isosorbide Mononitrate 60 MG Tablet PO (08:00)
[2022-05-24] MEDS: Lidocaine 5% Patch 2 PATCH TOPICAL (09:10)
[2022-05-24 15:26] VITALS: BP 130/60; PULSE 60; RESP 16; TEMP 36.7; O2SAT 94
[2022-05-24 22:33] VITALS: PULSE 67; RESP 16; O2SAT 98
[2022-05-25] MEDS: traMADol 50 MG Tablet PO (00:51)
[2022-05-25] MEDS: Glucerna Shake 120 ML LIQUID PO ×4 (05:19→21:24)
[2022-05-25] MEDS: Furosemide 40 MG Tablet PO (05:20)
[2022-05-25] MEDS: Menthol/Lanolin/Calamine/Znox 113 GM Tube 1 APPLIC TOPICAL ×3 (05:20→21:26)
[2022-05-25] MEDS: Vancomycin 125 MG/5 ML Susp PO.SYRINGE PO ×2 (05:20→11:05)
[2022-05-25] MEDS: amLODIPine 5 MG Tablet PO (05:20)
[2022-05-25] MEDS: Lisinopril 40 MG Tablet PO (05:20)
[2022-05-25] MEDS: Acetaminophen 500 MG Tablet 1000 MG PO ×3 (05:21→21:25)
[2022-05-25] MEDS: Aspirin 81 MG TAB.CHEW PO (07:27)
[2022-05-25] MEDS: Gabapentin 100 MG Capsule PO ×3 (07:27→17:41)
[2022-05-25] MEDS: Isosorbide Mononitrate 60 MG Tablet PO (07:27)
[2022-05-25] MEDS: Atenolol 50 MG Tablet PO (07:28)
[2022-05-25] MEDS: Lidocaine 5% Patch 2 PATCH TOPICAL (10:19)
[2022-05-25 10:24] VITALS: PULSE 61; RESP 14; O2SAT 97
[2022-05-25 15:47] VITALS: BP 109/52; PULSE 61; RESP 14; TEMP 36.6; O2SAT 97
[2022-05-26] MEDS: Acetaminophen 500 MG Tablet 1000 MG PO ×3 (06:04→22:24)
[2022-05-26] MEDS: Glucerna Shake 120 ML LIQUID PO ×4 (06:04→22:22)
[2022-05-26] MEDS: Furosemide 40 MG Tablet PO (06:05)
[2022-05-26] MEDS: Lisinopril 40 MG Tablet PO (06:05)
[2022-05-26] MEDS: amLODIPine 5 MG Tablet PO (06:05)
[2022-05-26] MEDS: Menthol/Lanolin/Calamine/Znox 113 GM Tube 1 APPLIC TOPICAL ×3 (06:05→22:22)
[2022-05-26 06:07] VITALS: BP 131/57; PULSE 61
[2022-05-26 06:55] LABS: Bedside Glucose 164 mg/dL (74-106)
[2022-05-26] MEDS: Aspirin 81 MG TAB.CHEW PO (08:04)
[2022-05-26] MEDS: Gabapentin 100 MG Capsule PO ×3 (08:04→17:07)
[2022-05-26] MEDS: Isosorbide Mononitrate 60 MG Tablet PO (08:05)
[2022-05-26] MEDS: Lidocaine 5% Patch 2 PATCH TOPICAL (08:08)
[2022-05-26] MEDS: Atenolol 50 MG Tablet PO (08:08)
[2022-05-26] MEDS: Ergocalciferol 1.25 MG (50, 000 UNIT) Capsule PO (08:09)
--- NOTE | 2022-05-26 11:55 | CASEMGMT ---
Social Work Reached out to [facility] ([facility])Valeri. E-mail sent inquiring about status of referral. Will continue to follow. Parker MANCERA, TEMO
[2022-05-26 15:20] VITALS: BP 114/62; PULSE 64; RESP 14; TEMP 36.4; O2SAT 99
--- NOTE | 2022-05-26 15:30 | CASEMGMT ---
Social Work Continued stay denied by insurance with last cover day to be 05/28/2022 and patient to discharge or financial responsibility to begin on 05/29/2022. This long term care social worker met with patient in room. This long term care social worker updated patient on above information. Patient voiced understanding and signed notice of medicare non-coverage. Patient agreeable to long-term placement and aware of pending approval for [facility]. Patient requested for this long term care social worker to call patient daughter, Ailyn to updated on above information. Proposed discharge date: 05/29/2022 PLAN: [facility], pending acceptance. Parker MANCERA, TEMO
--- NOTE | 2022-05-26 15:50 | CASEMGMT ---
Social Work [facility]. This social studies teacher to patient room to communicate above information. Patient voiced understanding and request for this social studies teacher to send referral to the Delia at [facility] and [place]. Telephone call to the Bibi Lin. no answer. voicemail left. Secure e-mail sent to Kelsy at [place], they are able to review referral. Clinical information sent via secure e-mail. This social studies teacher updated patient and patient daughter, Ailyn on all above information. Proposed discharge date: 05/29/2022 PLAN: Extended Care Facility, pending acceptance. Parker MANCERA, JYOTIS
[2022-05-27 05:39] LABS: Absolute Lymphocyte Count 2.08 X10^3/uL (0.83-4.51); Absolute Neutrophil Count 3.2 X10^3/uL (2.0-7.7); Basophil# 0.05 X10^3/uL; Basophil% 0.8 % (0-1); Eosinophil# 0.32 X10^3/uL; Eosinophils% 5.1 % (0-5); Hematocrit 32.5 % (37-47); Hemoglobin 10.2 g/dL (12.0-15.0); Lymphocyte # 2.08 X10^3/ul (0.83-4.51); Lymphocyte % 33.4 % (19-41); Mean Corp Hgb Conc 31.4 g/dL (32-36); Mean Corpuscular Hgb 27.7 pg (27.0-32.0); Mean Corpuscular Volume 88.3 fL (81-99); Mean Platelet Vol. 11.1 fl (6.2-12.0); Monocyte# 0.54 X10^3/uL; Monocyte% 8.7 % (0-10); NRBC Flagged by Analyzer 0 % (0-5); Neutrophil # 3.19 X10^3/uL (2.7-7.7); Neutrophil % 51.4 % (47-70); Platelet Count 301 K/mm3 (150-450); RBC Distribution Width CV 15.2 % (11.6-14.6); RBC Distribution Width SD 49.2 fl (35.1-43.9); Red Blood Count 3.68 M/mm3 (4.2-5.4); White Blood Count 6.2 K/mm3 (4.4-11.0)
[2022-05-27 06:02] LABS: Anion Gap 5 (5-15); BUN 18 mg/dL (7-18); BUN/Creat Ratio 34.8 RATIO (10-20); Calcium,Total 9.6 mg/dL (8.5-10.1); Chloride 103 mmol/L (98-107); Creatinine, Serum 0.52 mg/dL (0.55-1.02); EST Glomerular Filtration Rate 121 mL/min (>60); Est Glom Filt Rate - Afr Amer 146 mL/min (>60); Estimated Creatinine Clearance 38.92 ml/min; Glucose 132 mg/dL (74-106); Potassium 4.4 mmol/L (3.5-5.1); Sodium Level 138 mmol/L (136-145)
[2022-05-27] MEDS: Menthol/Lanolin/Calamine/Znox 113 GM Tube 1 APPLIC TOPICAL ×3 (06:53→22:35)
[2022-05-27] MEDS: Furosemide 40 MG Tablet PO (06:53)
[2022-05-27] MEDS: amLODIPine 5 MG Tablet PO (06:53)
[2022-05-27] MEDS: Lisinopril 40 MG Tablet PO (06:53)
[2022-05-27] MEDS: Acetaminophen 500 MG Tablet 1000 MG PO ×3 (06:53→22:34)
[2022-05-27] MEDS: Glucerna Shake 120 ML LIQUID PO ×4 (06:54→22:35)
[2022-05-27 06:56] VITALS: BP 137/65; PULSE 61
[2022-05-27 07:20] LABS: Bedside Glucose 133 mg/dL (74-106)
[2022-05-27] MEDS: Lidocaine 5% Patch 2 PATCH TOPICAL (08:07)
[2022-05-27] MEDS: Aspirin 81 MG TAB.CHEW PO (08:08)
[2022-05-27] MEDS: Isosorbide Mononitrate 60 MG Tablet PO (08:08)
[2022-05-27] MEDS: Atenolol 50 MG Tablet PO (08:08)
[2022-05-27] MEDS: Gabapentin 100 MG Capsule PO ×3 (08:11→17:06)
--- NOTE | 2022-05-27 09:15 | CASEMGMT ---
Social Work Confirmed by JFS that Medicaid application was received. Case assigned to Tiffanie David, Pending #[id number]. FIORDALIZA LeeW
[2022-05-27 10:00] VITALS: PULSE 62; RESP 18; O2SAT 98
[2022-05-27] MEDS: traMADol 50 MG Tablet PO (10:45)
[2022-05-27 14:16] VITALS: BP 101/46; PULSE 59; RESP 15; TEMP 35.8; O2SAT 98
--- NOTE | 2022-05-27 16:47 | CASEMGMT ---
Social Work Followed up with both [facility] and [facility] - gautam referral. Both are reviewing. Will continue to follow. Wendy Mcpherson MSW LEAD ADVISOR
[2022-05-28 05:26] VITALS: BP 112/47; PULSE 60
[2022-05-28 06:35] LABS: Bedside Glucose 129 mg/dL (74-106)
[2022-05-28 06:41] VITALS: BP 124/61; PULSE 62
[2022-05-28] MEDS: Furosemide 40 MG Tablet PO (06:44)
[2022-05-28] MEDS: Acetaminophen 500 MG Tablet 1000 MG PO ×3 (06:44→21:33)
[2022-05-28] MEDS: amLODIPine 5 MG Tablet PO (06:44)
[2022-05-28] MEDS: Glucerna Shake 120 ML LIQUID PO ×4 (06:44→21:28)
[2022-05-28] MEDS: Lisinopril 40 MG Tablet PO (06:44)
[2022-05-28] MEDS: Aspirin 81 MG TAB.CHEW PO (07:48)
[2022-05-28] MEDS: Gabapentin 100 MG Capsule PO ×3 (07:48→18:14)
[2022-05-28] MEDS: Atenolol 50 MG Tablet PO (07:48)
[2022-05-28] MEDS: Isosorbide Mononitrate 60 MG Tablet PO (07:48)
--- NOTE | 2022-05-28 08:40 | DS.PCM_ITS ---
Providers Date of Admission: 05/12/22 Primary Care Physician: Dr. Mary Azevedo MD Reason For Visit: DIBILTY,HYPOKALEMIA Diagnosis Discharge Diagnosis (1) UTI (urinary tract infection): Status: Acute Code(s): N39.0 - Urinary tract infection, site not specified (2) Lumbar compression fracture: Status: Acute Code(s): S32.000A - Wedge compression fracture of unspecified lumbar vertebra, initial encounter for closed fracture (3) Low back pain: Status: Chronic Code(s): M54.50 - Low back pain, unspecified (4) Lumbar spondylosis: Status: Acute Code(s): M47.816 - Spondylosis without myelopathy or radiculopathy, lumbar region (5) Diarrhea: Status: Acute Code(s): R19.7 - Diarrhea, unspecified (6) Type II diabetes mellitus: Status: Chronic Code(s): E11.9 - Type 2 diabetes mellitus without complications Qualifiers: Qualified Code(s): Z79.4 - FCI (current) use of insulin (7) History of permanent cardiac pacemaker placement: Status: Acute Code(s): Z95.0 - Presence of cardiac pacemaker (8) Essential hypertension: Status: Chronic Code(s): I10 - Essential (primary) hypertension (9) Systolic and diastolic CHF, chronic: Status: Chronic Code(s): I50.42 - Chronic combined systolic (congestive) and diastolic (congestive) heart failure (10) Osteoporosis: Status: Acute Code(s): M81.0 - Age-related osteoporosis without current pathological fracture Qualifiers: Osteoporosis type: age-related Presence of current pathological fracture: without current pathological fracture Qualified Code(s): M81.0 - Age- related osteoporosis without current pathological fracture Medications at Discharge Home Medications lisinopril 20 mg tablet 40 mg PO DAILY blood pressure 06/14/21 nitroglycerin 0.4 mg sublingual tablet 0.4 mg sublingual Q5M PRN Cardiac/Chest Pain #25 tabs 12/23/21 amlodipine 5 mg tablet 5 mg PO DAILY blood pressure 12/30/21 atenolol 25 mg tablet 50 mg PO DAILY blood pressure 12/30/21 blood sugar diagnostic 12/30/21 blood-glucose meter 12/30/21 cholecalciferol (vitamin D3) 1,250 mcg (50,000 unit) capsule 1,250 mcg PO QWEEK vitamin 12/30/21 isosorbide mononitrate 60 mg tablet,extended release 24 hr 60 mg PO DAILY heart #90 tabs 02/07/22 acetaminophen 500 mg tablet (Tylenol Extra Strength) 1,000 mg PO Q6H PRN Pain 02/21/22 aspirin 81 mg chewable tablet 81 mg PO DAILY@0800 Heart health 05/12/22 furosemide 40 mg tablet (Lasix) 40 mg PO DAILY Fluid retention 05/12/22 gabapentin 100 mg capsule 100 mg PO TIDCM Neuropathy 05/12/22 lidocaine 5 % topical patch 1 patch topical DAILY Pain 05/12/22 menthol 0.44 %-zinc oxide 20.6 % topical ointment (Calmoseptine) 1 applic topical TID Skin protection 05/12/22 nutrition tx glu intol,lac-free,soy-fiber 0.06 gram-1.2 kcal/mL liquid (Glucerna 1.2 Norman) 120 ml PO 4X/DAY Supplement 05/12/22 tramadol 50 mg tablet 50 mg PO Q6H PRN PRN Pain Score 4-10 3 days #12 tabs 05/28/22 Hospital Course Operations None Procedures - (L1 kyphoplasty.) Summary of Care Provided Minutes Spent on Discharge: 35 Hospital Course: 82 year old female with below past medical history hospitalized for intractable back pain secondary to L1 compression fracture, admitted to TCU with debility, here for rehabilitation, strengthening, prior to discharge. 05/08/2022 Dr. Hernandez performed L1 kyphoplasty. Discharge to non-skilled facility ([facility] or [facility]), Part B therapies. Physical Exam Const alert General Appearance: cooperative HEENT normocephalic Eyes PERRL and EOMs intact bilaterally Neck supple, no JVD and no carotid bruits Resp normal respiratory effort, normal air movement and clear to auscultation bi laterally Cardio regular rate and regular rhythm GI normal to inspection, nondistended, normoactive bowel sounds, non-tender and non-distended Extremity normal capillary refill General Extremity: Negative for edema Skin no rashes or lesions noted General Skin Exam: no breakdown Psych affect normal Appearance: appropriate Medical Records Data Medical Nutrition Assessment Dietitian: Malnutrition Criteria Met Start: 05/14/22 11:58 Freq: Status: Active Protocol: Document 05/21/22 12:54 STEPHAN (Rec: 05/21/22 12:54 [facility] [id number]) Nutrition Malnutrition Evidence of Malnutrition Exists Yes Malnutrition (severe): Chronic Evidenced By Suboptimal Energy Intake ( Severe),Weight Loss (Severe), Physical Changes (Moderate) Clinical Problem Biting/Chewing Difficulty Etiology related to dysphagia Signs/Symptoms as evidenced by need for mech altered food consistency Status Active Problem Chronic Disease or Condition Related Malnutrition Etiology severe related to inadequate energy intake and issues with chronic diarrhea Signs/Symptoms as evidenced by <=50% average po intake and 21.8% wt loss x 1 year - also w/ fat/muscle wasting orbitals/temporals, triceps/upper body. Res describes herself as having skin on bones. Status Active Problem Recommendation Dietitian Recommendations/Changes Will continue liberalized diet of Regular No Added Salt - consistency per [employer] - and fortified foods to make foods consumed more nutrient dense if consumed d/t signs and symptoms of malnutrition. Will continue glucerna shake w / medpass 4x/day Rec consider appetite stimulant to help encourage increased po intake at meals Weight / BMI Weight Weight: 53.615 kg Body Mass Index (BMI) 27.1 ABG / Lab / Microbiology Data Result Diagrams: 05/27/22 05:23 05/27/22 05:23 Laboratory: Laboratory Results - last 24 hr 05/28/22 06:11: POC Glucose 129 H Microbiology: Microbiology 05/22/22 17:43 Nasal Secretion SARS-CoV-2 Antigen (Rapid) - Final 05/19/22 10:55 Nasal Secretion SARS-CoV-2 Antigen (Rapid) - Final D/C Instructions Discharge Diet: No restrictions Discharge Activity: Return to Normal Activity, May Shower and Use Walker Weight Bearing Status: Weight bearing as tolerated Call your doctor if you observe: Fever of 101 or Higher, Inability to urinate, Inability to have a bowel movement, Shortness of breath, Dizziness, Fainting spells, Swelling in the ankles, Chest pain and Uncontrolled pain Additional Instructions: Discharge to non-skilled facility ([place] or [facility]), Part B therapies. Meaningful Use Info Meaningful Use Diagnoses (Choose all that apply): None applicable Discharge Plan Admission Admit Date/Time: 05/12/22 15:53 Primary Reason for Your Visit: Debility. Attending Provider: Bharati Eldridge Primary Care Provider: Mary Azevedo Instructions Additional Instructions / Restrictions: Discharge to non-skilled facility ([place] or [facility]), Part B therapies. Discharge Orders/Prescriptions Prescriptions: New tramadol 50 mg Tablet 50 mg PO Q6H PRN PRN (Reason: Pain Score 4-10) 3 Days Qty: 12 0RF Continued acetaminophen [Tylenol Extra Strength] 500 mg tablet 1,000 mg PO Q6H PRN (Reason: Pain) lisinopril 20 mg tablet 40 mg PO DAILY atenolol 25 mg tablet 50 mg PO DAILY amlodipine 5 mg tablet 5 mg PO DAILY cholecalciferol (vitamin D3) 1,250 mcg (50,000 unit) capsule 1,250 mcg PO QWEEK furosemide [Lasix] 40 mg tablet 40 mg PO DAILY lidocaine 5 % adhesive patch,medicated 1 patch topical DAILY Protocol: *Topical Application Instructions APPLICATION INSTRUCTIONS: back aspirin 81 mg tablet,chewable 81 mg PO DAILY@0800 gabapentin 100 mg capsule 100 mg PO TIDCM Glucerna 1.2 Norman 0.06-1.2 gram-kcal/mL liquid 120 ml PO 4X/DAY menthol-zinc oxide [Calmoseptine] 0.44-20.6 % ointment 1 applic topical TID Protocol: *Topical Application Instructions APPLICATION INSTRUCTIONS: apply to groin and perineal tid nitroglycerin 0.4 mg tablet, sublingual 0.4 mg sublingual Q5M PRN (Reason: Cardiac/Chest Pain) Qty: 25 3RF isosorbide mononitrate 60 mg tablet extended release 24 hr 60 mg PO DAILY Qty: 90 3RF Rx Instructions: Take 1 tablet by mouth once daily Discontinued cefdinir 300 mg capsule 300 mg PO BID No Action (DME) blood sugar diagnostic Strip See Rx Instructions .ROUTE .MEDSUPPLY Rx Instructions: test three times a day (DME) blood-glucose meter Kit See Rx Instructions .ROUTE .MEDSUPPLY Rx Instructions: As directed Referrals / Follow Up: Mary Azevedo MD [Primary Care Provider] - Disposition Disposition (needs filled in before D/C Order can be placed): NonSkilled NH/Intermed Care
--- NOTE | 2022-05-28 08:48 | PCM.TXEXTCAR ---
Diet Diet Order/Speech Therapy: 05/17/22 07:57 Diet: Regular - No Added Salt Food consistency:: Soft & Bite Sized Liquid Consistency:: Regular/Thin Dietary Modifications:: No Added Salt Type of Dietary Supplement:: fortified foods tid Is pt able to select menu?: Yes Diet Comments: distant sup, aspiration precautions at bedside. Routine Orders/Code Status Code Status: DNRCC-A (No intubation.) Therapies Weight Bearing: Full weight bearing Problem/Diagnosis (1) UTI (urinary tract infection): Status: Acute Code(s): N39.0 - Urinary tract infection, site not specified (2) Lumbar compression fracture: Status: Acute Code(s): S32.000A - Wedge compression fracture of unspecified lumbar vertebra, initial encounter for closed fracture (3) Low back pain: Status: Chronic Code(s): M54.50 - Low back pain, unspecified (4) Lumbar spondylosis: Status: Acute Code(s): M47.816 - Spondylosis without myelopathy or radiculopathy, lumbar region (5) Diarrhea: Status: Acute Code(s): R19.7 - Diarrhea, unspecified (6) Type II diabetes mellitus: Status: Chronic Code(s): E11.9 - Type 2 diabetes mellitus without complications (7) History of permanent cardiac pacemaker placement: Status: Acute Code(s): Z95.0 - Presence of cardiac pacemaker (8) Essential hypertension: Status: Chronic Code(s): I10 - Essential (primary) hypertension (9) Systolic and diastolic CHF, chronic: Status: Chronic Code(s): I50.42 - Chronic combined systolic (congestive) and diastolic (congestive) heart failure (10) Osteoporosis: Status: Acute Code(s): M81.0 - Age-related osteoporosis without current pathological fracture Allergies/Procedures Done in Hospital Allergies latex Allergy (Verified 03/11/22 10:02) Other RASH ON HANDS WHEN SHE USED LATEX GLOVES WHEN WORKED AT RETIREMENT 17 YRS AGO Procedures: - (L1 kyphoplasty.) Type of Care/Length of Stay Estimated LOS: Convalescent Care Less Than 30 days Type of Care Needed: Intermediate Rehab Potential: Fair Prognosis: Fair Additional Orders/Day of Discharge Day of Discharge: 05/29/22 Dietary and Speech Recommendations Dietitian Recommendations/Changes: Will continue liberalized diet of Regular No Added Salt - consistency per TECHNOLOGY APPLICATIONS TEACHER - and fortified foods to make foods consumed more nutrient dense if consumed d/t signs and symptoms of malnutrition. Will continue glucerna shake w/ medpass 4x/day Rec consider appetite stimulant to help encourage increased po intake at meals Discharge Plan Admission Admit Date/Time: 05/12/22 15:53 Primary Reason for Your Visit: Debility. Attending Provider: Bharati Eldridge Primary Care Provider: Mary Azevedo Instructions Additional Instructions / Restrictions: Discharge to non-skilled facility ([place] or [facility]), Part B therapies. Discharge Orders/Prescriptions Prescriptions: New tramadol 50 mg Tablet 50 mg PO Q6H PRN PRN (Reason: Pain Score 4-10) 3 Days Qty: 12 0RF Continued acetaminophen [Tylenol Extra Strength] 500 mg tablet 1,000 mg PO Q6H PRN (Reason: Pain) lisinopril 20 mg tablet 40 mg PO DAILY atenolol 25 mg tablet 50 mg PO DAILY amlodipine 5 mg tablet 5 mg PO DAILY cholecalciferol (vitamin D3) 1,250 mcg (50,000 unit) capsule 1,250 mcg PO QWEEK furosemide [Lasix] 40 mg tablet 40 mg PO DAILY lidocaine 5 % adhesive patch,medicated 1 patch topical DAILY Protocol: *Topical Application Instructions APPLICATION INSTRUCTIONS: back aspirin 81 mg tablet,chewable 81 mg PO DAILY@0800 gabapentin 100 mg capsule 100 mg PO TIDCM Glucerna 1.2 Norman 0.06-1.2 gram-kcal/mL liquid 120 ml PO 4X/DAY menthol-zinc oxide [Calmoseptine] 0.44-20.6 % ointment 1 applic topical TID Protocol: *Topical Application Instructions APPLICATION INSTRUCTIONS: apply to groin and perineal tid nitroglycerin 0.4 mg tablet, sublingual 0.4 mg sublingual Q5M PRN (Reason: Cardiac/Chest Pain) Qty: 25 3RF isosorbide mononitrate 60 mg tablet extended release 24 hr 60 mg PO DAILY Qty: 90 3RF Rx Instructions: Take 1 tablet by mouth once daily Discontinued cefdinir 300 mg capsule 300 mg PO BID No Action (DME) blood sugar diagnostic Strip See Rx Instructions .ROUTE .MEDSUPPLY Rx Instructions: test three times a day (DME) blood-glucose meter Kit See Rx Instructions .ROUTE .MEDSUPPLY Rx Instructions: As directed Referrals / Follow Up: Mary Azevedo MD [Primary Care Provider] - Disposition Disposition (needs filled in before D/C Order can be placed): NonSkilled NH/Intermed Care (1) Type II diabetes mellitus Qualifiers: Qualified Code(s): Z79.4 - ad terminal 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
[2022-05-28] MEDS: Lidocaine 5% Patch 2 PATCH TOPICAL (09:50)
--- NOTE | 2022-05-28 12:56 | CASEMGMT ---
Addendum entered by Wendy Mcpherson 05/28/22 16:51: Left another message and sent another email to [facility] - no response. Spoke with pt in room - dtr and gddtr present. Updated pt on no response from [facility] at this time but [facility] can accept if pt needs to DC home. All expressed understanding. BIMS (10/02) and PHQ-9 (06/14 - mild depression) completed for MDS assessment. Addendum entered by Wendy Mcpherson 05/28/22 15:41: SW continues to have email correspondence with Blanca at [facility], unable to get a final response. Spoke to pt about Avenue denial and [facility] pending. Suggested to plan for DC home, if [facility] cannot accept. Pt agrees. Inquired about HHC preference. Pt prefers [facility]. SW to keep pt updated on DC plan. SW referred via phone to [facility] for PT/OT/SN/[place]/SW. [facility] can accept. SW still waiting on outcome from [facility] at this time. Original Note: Social Work Spoke with Elle at [facility]. Elle spoke with pt's dtrAilyn, to explain conditions for acceptance - needing required documents for Medicaid approval and patient liability of $1,483 up front. If those are not provided, [facility] cannot accept. Spoke with Blanca at [facility] whom is still unable to provide this worker an acceptance/denial. Reiterated pt will be discharging tomorrow under Medicaid pending. Blanca to notify this worker will a response shortly. Spoke with pt to update on above. Pt is adamant that does not want to give up her apartment and cannot pay the patient liability. Pt is open to going to [facility] if those restrictions do not apply, otherwise, pt will DC home. Spoke with dtrAilyn, to inquire about above plans. Dtr confirms pt does not have any additional funds to pay for patient liability and/or to pay for apartment. SW to continue to follow. FIORDALIZA Lee
[2022-05-28 15:06] VITALS: BP 111/64; PULSE 64; RESP 16; TEMP 36.9; O2SAT 94
[2022-05-28] MEDS: Menthol/Lanolin/Calamine/Znox 113 GM Tube 1 APPLIC TOPICAL (21:32)
[2022-05-28 22:00] VITALS: PULSE 67; RESP 16; O2SAT 97
[2022-05-29] MEDS: Furosemide 40 MG Tablet PO (06:13)
[2022-05-29] MEDS: Lisinopril 40 MG Tablet PO (06:13)
[2022-05-29] MEDS: Glucerna Shake 120 ML LIQUID PO ×3 (06:13→17:13)
[2022-05-29] MEDS: amLODIPine 5 MG Tablet PO (06:13)
[2022-05-29] MEDS: Acetaminophen 500 MG Tablet 1000 MG PO ×2 (06:14→13:34)
[2022-05-29] MEDS: Menthol/Lanolin/Calamine/Znox 113 GM Tube 1 APPLIC TOPICAL ×2 (06:16→13:34)
[2022-05-29 07:05] LABS: Bedside Glucose 120 mg/dL (74-106)
[2022-05-29] MEDS: Atenolol 50 MG Tablet PO (08:46)
[2022-05-29] MEDS: Aspirin 81 MG TAB.CHEW PO (08:46)
[2022-05-29] MEDS: Lidocaine 5% Patch 2 PATCH TOPICAL (08:46)
[2022-05-29] MEDS: Gabapentin 100 MG Capsule PO ×3 (08:46→17:13)
[2022-05-29] MEDS: Isosorbide Mononitrate 60 MG Tablet PO (08:46)
[2022-05-29 08:49] VITALS: BP 101/71; PULSE 60
--- NOTE | 2022-05-29 09:35 | CASEMGMT ---
Addendum entered by Wendy Mcpherson 05/29/22 16:54: Multiple correspondence over the course of the day with pt and dtr on placement. [facility] able to accept but requiring patient liability up front. [facility] was unresponsive to referral. [facility] remained unresponsive to referral. SW had multiple conversations with [facility] Admissions and [facility] on pt and they are are able to accept pt without needing to pay patient liability up front. IDT updated. Pt and dtr elected to eat dinner and then DC. Updated [facility] and sent DC orders and PASRR via email. Pt/dtr appreciative of SW assistance. Plan: DC 05/29 to [facility], intermediate Addendum entered by Wendy Mcpherson 05/29/22 09:39: Dtr, Ailyn, presented to office for update. SW explained below information. Dtr expressed understanding and appreciation for assistance. Original Note: Social Work Email sent to [facility] Arnaud LynnBlanca replied stating [facility] is not in network with [facility] and cannot override with Medicaid. SW replied reiterating [facility] issued NOMNC and no longer primary payor; Medicaid would come primary payor. Collaborated with [facility] SW whom suggested revisiting other SNFs for pt to DC to. SW spoke with pt and inquired about other SNF options. Listed the other SNFs that are in network with [employer]: [facility], [facility], [facility], [facility]. Pt denied [facility] and [facility] is last choice. Pt agreeable to referrals to [facility] and [facility] first. SW emailed and phoned referrals. Will continue to follow. Wendy Mcpherson, FIORDALIZA BARRERAW
[2022-05-29 10:00] VITALS: PULSE 60; RESP 18; O2SAT 99
[2022-05-29 16:15] VITALS: BP 119/62; PULSE 60; RESP 18; TEMP 36; O2SAT 99
--- NOTE | 2022-05-29 16:58 | NURSING ---
Report called to KELVIN Reed at [facility]
--- NOTE | 2022-06-05 11:14 | NURSING ---
Classification Officer Note: Initial activity assessment completed on paper by interim in service coordinator.
== END 2022-05-29 17:23 | disposition intermediate care facility (04) | DRG 560 ==
PROVIDERS: Admitting Provider Internal Medicine; PCP Internal Medicine; Visit Provider Internal Medicine
DX: S32.009D Unspecified fracture of unspecified lumbar vertebra, subsequent encounter for fracture with routine healing (principal); N39.0 Urinary tract infection, site not specified; I50.42 Chronic combined systolic (congestive) and diastolic (congestive) heart failure; I11.0 Hypertensive heart disease with heart failure; E11.9 Type 2 diabetes mellitus without complications; E78.5 Hyperlipidemia, unspecified; E55.9 Vitamin D deficiency, unspecified; B96.1 Klebsiella pneumoniae [K. pneumoniae] as the cause of diseases classified elsewhere; Z79.4 Long term (current) use of insulin; G47.30 Sleep apnea, unspecified; I25.10 Atherosclerotic heart disease of native coronary artery without angina pectoris; I25.5 Ischemic cardiomyopathy; W19.XXXD Unspecified fall, subsequent encounter; K21.9 Gastro-esophageal reflux disease without esophagitis; I25.2 Old myocardial infarction; E87.6 Hypokalemia; M47.816 Spondylosis without myelopathy or radiculopathy, lumbar region; Z79.82 Long term (current) use of aspirin; Z79.899 Other long term (current) drug therapy; Z86.711 Personal history of pulmonary embolism; Z95.0 Presence of cardiac pacemaker; M81.0 Age-related osteoporosis without current pathological fracture; Z23 Encounter for immunization
CPT/HCPCS: 0004A; 36415; 80048; 82962; 85025; 87811; 91300; 92507; 92523; 92526; 92610; 97110; 97116; 97162; 97166; 97530; 97535; 97802

== ENCOUNTER 2022-05-16 09:42 | Day surgery (SDC) | payer MEDICARE, SELFPAY ==
[2022-05-16] MEDS: Lactated Ringers 1,000 ML 15 ML IV (10:05)
[2022-05-16 10:21] VITALS: BP 148/60; PULSE 68; RESP 16; TEMP 36.3; O2SAT 100
[2022-05-16 11:21] LABS: Bedside Glucose 140 mg/dL (74-106)
[2022-05-16] MEDS: Cefazolin 2 GM in 0.9% Normal Saline 100 ML IV (13:53)
--- NOTE | 2022-05-16 14:00 | RAD_ITS ---
CLINICAL HISTORY: Female, 82 years old with L1 compression fracture. PROCEDURE: KYPHOPLASTY - FLUOROSCOPY TIME (if supplied): (1:26) minutes/seconds RADIATION DOSAGE (If Supplied By Facility): CTDIvol = ( 42.70 ) mGy, FINDINGS: 6 spot fluoroscopic images were obtained intraoperatively. Images demonstrate insertion of 2 cannulas into the L1 vertebral body followed by balloon insertion and inflammation and cement placement. No radiologist was present for the procedure, please refer to operative report for details. RAD/Spine 1 View Any Level IMPRESSION: Intraoperative fluoroscopy for L1 kyphoplasty. Electronically Signed: Kavon Santacruz MD at 7:56 EDT ,
[2022-05-16 14:39] VITALS: BP 148/60; BP 170/68; PULSE 80; RESP 16; TEMP 36.5; O2SAT 94
[2022-05-16 14:45] VITALS: BP 148/60; BP 161/93; PULSE 79; RESP 16; O2SAT 95
[2022-05-16 15:00] VITALS: BP 134/117; BP 148/60; PULSE 69; RESP 16; O2SAT 98
[2022-05-16 15:15] VITALS: BP 132/61; BP 148/60; PULSE 68; RESP 16; TEMP 36.1; O2SAT 99
[2022-05-16] MEDS: traMADol 50 MG Tablet PO (16:17)
[2022-05-16 16:24] VITALS: BP 148/60; BP 162/84; PULSE 66; RESP 18; TEMP 36.7; O2SAT 98
[2022-05-17 06:45] LABS: Bedside Glucose 132 mg/dL (74-106)
== END 2022-05-16 16:41 | disposition home or self-care (01) ==
LOC: SDC 09:43 → AC 09:43
PROVIDERS: PCP Internal Medicine; Referring Provider Anesthesiology Pain Medicine; Visit Provider Anesthesiology Pain Medicine
PROC: (CPT 22514; principal; 2022-05-16 10:45)
DX: M80.08XA Age-related osteoporosis with current pathological fracture, vertebra(e), initial encounter for fracture (principal); E11.51 Type 2 diabetes mellitus with diabetic peripheral angiopathy without gangrene; J44.9 Chronic obstructive pulmonary disease, unspecified; I11.0 Hypertensive heart disease with heart failure; I50.42 Chronic combined systolic (congestive) and diastolic (congestive) heart failure; I49.5 Sick sinus syndrome; I48.91 Unspecified atrial fibrillation; W19.XXXA Unspecified fall, initial encounter; M51.37 Other intervertebral disc degeneration, lumbosacral region; M51.36 Other intervertebral disc degeneration, lumbar region; I44.7 Left bundle-branch block, unspecified; I25.10 Atherosclerotic heart disease of native coronary artery without angina pectoris; M19.90 Unspecified osteoarthritis, unspecified site; E78.5 Hyperlipidemia, unspecified; I25.2 Old myocardial infarction; R29.6 Repeated falls; Z79.84 Long term (current) use of oral hypoglycemic drugs; Z95.0 Presence of cardiac pacemaker; Z95.5 Presence of coronary angioplasty implant and graft; Z79.82 Long term (current) use of aspirin; Z79.899 Other long term (current) drug therapy; F41.9 Anxiety disorder, unspecified; D64.9 Anemia, unspecified
CPT/HCPCS: 22514; 72020; 76000; 82962; J7120; J2405

== ENCOUNTER → 2022-06-09 | Outpatient (CLI) | payer MEDICARE, SELFPAY ==
[2022-06-09 16:52] LABS: Absolute Lymphocyte Count 1.82 X10^3/uL (0.83-4.51); Absolute Neutrophil Count 5.4 X10^3/uL (2.0-7.7); Basophil# 0.04 X10^3/uL; Basophil% 0.5 % (0-1); Eosinophil# 0.14 X10^3/uL; Eosinophils% 1.8 % (0-5); Hematocrit 33.7 % (37-47); Hemoglobin 10.7 g/dL (12.0-15.0); Lymphocyte # 1.82 X10^3/ul (0.83-4.51); Lymphocyte % 22.9 % (19-41); Mean Corp Hgb Conc 31.8 g/dL (32-36); Mean Corpuscular Hgb 28.3 pg (27.0-32.0); Mean Corpuscular Volume 89.2 fL (81-99); Monocyte# 0.53 X10^3/uL; Monocyte% 6.7 % (0-10); NRBC Flagged by Analyzer 0 % (0-5); Neutrophil % 67.8 % (47-70); Platelet Count 280 K/mm3 (150-450); RBC Distribution Width CV 14.7 % (11.6-14.6); RBC Distribution Width SD 47.6 fl (35.1-43.9); Red Blood Count 3.78 M/mm3 (4.2-5.4)
[2022-06-09 17:01] LABS: Anion Gap 6 (5-15); BUN 14 mg/dL (7-18); BUN/Creat Ratio 19.4 RATIO (10-20); Calcium,Total 9.6 mg/dL (8.5-10.1); Chloride 103 mmol/L (98-107); Creatinine, Serum 0.72 mg/dL (0.55-1.02); EST Glomerular Filtration Rate 82 mL/min (>60); Est Glom Filt Rate - Afr Amer 100 mL/min (>60); Follicle Stimulating Hormone 84.4 mIU/mL; Glucose 173 mg/dL (74-106); Luteinizing Hormone 37.8 mIU/mL; Potassium 4.2 mmol/L (3.5-5.1); Sodium Level 138 mmol/L (136-145)
[2022-06-10 17:22] LABS: Hemoglobin A1c 5.9 % (3.8-5.6)
== END | disposition home or self-care (01) ==
LOC: BIMLAB 14:58
PROVIDERS: Internal Medicine Endocrinology, Diabetes & Metabolism; PCP Internal Medicine; Referring Provider Internal Medicine; Visit Provider Internal Medicine
DX: I10 Essential (primary) hypertension (principal); E23.7 Disorder of pituitary gland, unspecified; E11.9 Type 2 diabetes mellitus without complications; E78.5 Hyperlipidemia, unspecified
CPT/HCPCS: 36415; 80048; 83001; 83002; 83036; 85025

== ENCOUNTER → 2022-06-11 | Outpatient (CLI) | payer MEDICARE, SELFPAY ==
[2022-06-11 11:59] LABS: Free T3 2.8 pg/mL (2.18-3.98); T4 Free Direct 0.95 ng/dL (0.76-1.46); Thyroid Stim Hormone (TSH) 0.01 uIU/mL (0.358-3.74)
[2022-06-11 12:04] LABS: Vitamin D,25 Hydroxy 83.2 ng/mL
== END | disposition home or self-care (01) ==
LOC: LAB 10:04
PROVIDERS: PCP Internal Medicine; Referring Provider Nurse Practitioner Family; Visit Provider Nurse Practitioner Family
DX: E05.90 Thyrotoxicosis, unspecified without thyrotoxic crisis or storm (principal); M81.0 Age-related osteoporosis without current pathological fracture
CPT/HCPCS: 36415; 82306; 84439; 84443; 84481

== ENCOUNTER → 2022-07-15 | Outpatient (CLI) | payer MEDICARE, SELFPAY ==
--- NOTE | 2022-07-15 14:02 | ECHOL_ITS ---
Reason For Study: CHF Procedure This was a limited 2D transthoracic echocardiogram. Myocardial strain analysis was performed in this exam to aid in the assessment of cardiac function. The study was technically difficult. Limited views were obtained. Patient had difficulty laying on left side due to broken hip and broken back. Exam performed in department. Left Ventricle Normal LV size. Severe global left ventricular systolic dysfunction. The estimated ejection fraction is 25 %. Septal bounce. Unable to assess diastolic dysfunction. Right Ventricle Normal RV size. ICD or pacer leads identified within the right ventricle. The right ventricle is normal in size, function, and thickness. Atria The left atrium is mildly enlarged. Normal right atrium. ICD or pacer leads identified within the right atrium. No doppler evidence for ASD. Mitral Valve There is mild mitral annular calcification. Extension of the mitral annular calcification onto the base of the posterior mitral valve leaflet. Mild diffuse mitral valve thickening. The mitral valve chordae are thickened and/or calcified. The mitral papillary muscle appears thickened and/or calcified. Moderate (2+) mitral valve insufficiency. Tricuspid Valve Normal tricuspid valve. Mild tricuspid valve insufficiency. Unable to estimate RV systolic pressure/pulmonary artery pressure due to technically difficult study. Aortic Valve Trisinus/trileaflet aortic valve. Mild focal aortic valve calcification. Pulmonic Valve The pulmonic valve is not well visualized. Great Vessels The aortic root is not well visualized. Pericardium/Pleural Trivial pericardial effusion. There are no echocardiographic indications of cardiac tamponade. MMode/2D Measurements & Calculations LVIDd: 4.5 cm IVSd: 1.5 cm LA dimension: 3.9 cm LVIDs: 3.9 cm LVPWd: 1.2 cm RVDd: 2.8 cm FS: 13.0 % LAV(MOD-sp4): 56.4 ml LVAd ap4: 28.0 cm2 SV(MOD-sp4): 22.1 ml LVLd ap4: 7.9 cm EDV(MOD-sp4): 82.4 ml EDV(sp4-el): 84.3 ml LVAs ap4: 22.9 cm2 LVLs ap4: 7.2 cm ESV(MOD-sp4): 60.4 ml ESV(sp4-el): 61.6 ml EF(MOD-sp4): 26.8 % EF(sp4-el): 26.9 % SV(sp4-el): 22.7 ml LA A4 area: 19.3 cm2 RA A4 area: 12.4 cm2 Doppler Measurements & Calculations Lat Peak E' Robel: 2.7 cm/sec Med Peak E' Robel: 2.7 cm/sec ECHO/Echo, Limited Study Interpretation Summary The study was technically difficult. Limited views were obtained. Severe global left ventricular systolic dysfunction. The estimated ejection fraction is 25 %. Septal bounce. The left atrium is mildly enlarged. There is mild mitral annular calcification. Extension of the mitral annular calcification onto the base of the posterior mi tral valve leaflet. Mild diffuse mitral valve thickening. The mitral valve chordae are thickened and/or calcified. The mitral papillary muscle appears thickened and/or calcified. Moderate (2+) mitral valve insufficiency. Mild tricuspid valve insufficiency. Mild focal aortic valve calcification. Trivial pericardial effusion. There are no echocardiographic indications of cardiac tamponade. Unable to estimate RV systolic pressure/pulmonary artery pressure due to techni sarah difficult study. Unable to assess diastolic dysfunction. ICD or pacer leads identified within the right atrium ICD or pacer leads identified within the right ventricle. Ordering Physician: Alejandro Lanza Referring Physician: Mary Azevedo Performed By: Bryan Brooks RCS
== END | disposition home or self-care (01) ==
PROVIDERS: PCP Internal Medicine; Referring Provider Nurse Practitioner Family; Visit Provider Nurse Practitioner Family
DX: I50.32 Chronic diastolic (congestive) heart failure (principal); I25.10 Atherosclerotic heart disease of native coronary artery without angina pectoris
CPT/HCPCS: 93308

== ENCOUNTER 2022-09-26 17:45 | Emergency (ER) | payer MEDICARE, SELFPAY ==
[2022-09-26 17:46] VITALS: BP 148/77; PULSE 70; RESP 16; TEMP 36.1; O2SAT 100; BMI 24.2
--- NOTE | 2022-09-26 18:05 | RAD_ITS ---
STUDY: X-RAY - LEFT WRIST REASON FOR EXAM: Female, 82 years old. FALL TECHNIQUE: 3 view(s) of the wrist were obtained. COMPARISON: None. FINDINGS: There is demineralization of the radius and ulna. Normal radiocarpal articulation. Normal distal radioulnar articulation. There is demineralization of the carpal bones. Normal carpal articulations. There is degenerative arthrosis of the carpometacarpal articulation of the thumb. Normal second through fifth carpometacarpal articulations. Normal visualized metacarpal bones. Extensive vascular calcifications. Distal radial metaphysis fracture with mild dorsal impaction. Nondisplaced ulnar styloid fracture. Mild circumferential soft tissue swelling. RAD/Wrist min 3 Views IMPRESSION: Distal radius and distal ulna fractures. Electronically Signed: Guicho Martinez MD at 18:17 EST ,
--- NOTE | 2022-09-26 18:57 | EDS_ITS ---
HPI HPI - Fall History of Present Illness Chief Complaint: Fall Informant: patient Occured/Mechanism Occurred: Today Pain/Injury Pain Location: upper extremity Quality of Pain: Aching Current Severity: Mild Maximum Severity: Mild Narrative Narrative: Patient presents after a fall at home. She apparently fell from the couch and injured her left wrist. She states that she does slipped and put her left hand out to catch her self. She is right-hand dominant. She states she recently broke her right wrist and was wearing a Velcro splint the past couple weeks. She denies striking her head or any other injury. [facility] Medical History Abdominal pain Abnormal results of thyroid function studies Anemia Anxiety and depression Atherosclerosis of coronary artery of tetlin heart without angina pectoris Back pain Back pain due to injury Bladder disease Cardiology follow-up encounter Chronic back pain Chronic diarrhea Closed left hip fracture Compression fracture Dark stools Depression Diabetes Diarrhea Dietary restriction Essential hypertension Fall Frequent falls Gastroesophageal reflux disease History of CHF (congestive heart failure) History of echocardiogram History of hemorrhoids History of pulmonary embolus (PE) History of stress test Hyperlipidemia Hypertension Iron deficiency anemia Irritable bowel Ischemic cardiomyopathy Low back pain Lumbar compression fracture Lumbar spinal stenosis Memory deficit Myocardial infarct Non-smoker Nursing assistance required Orthopedic aftercare Osteoporosis Post-menopausal Pulmonary embolism Shortness of breath on exertion 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) Type II diabetes mellitus Vitamin D deficiency Wears dentures Wears glasses Wears hearing aid Home Medications nitroglycerin 0.4 mg sublingual tablet 0.4 mg sublingual Q5M PRN Cardiac/Chest Pain #25 tabs 12/23/21 [Rx Last Taken Unknown] amlodipine 5 mg tablet 5 mg PO DAILY blood pressure 12/30/21 [History Last Taken Unknown] blood sugar diagnostic 12/30/21 [History Last Taken Unknown] blood-glucose meter 12/30/21 [History Last Taken Unknown] isosorbide mononitrate 60 mg tablet,extended release 24 hr 60 mg PO DAILY heart #90 tabs 02/07/22 [Rx Last Taken Unknown] acetaminophen 500 mg tablet (Tylenol Extra Strength) 1,000 mg PO Q6H PRN Pain 02/21/22 [History Last Taken Unknown] aspirin 81 mg chewable tablet 81 mg PO DAILY@0800 Heart health 05/12/22 [History Last Taken Unknown] furosemide 40 mg tablet (Lasix) 40 mg PO DAILY Fluid retention 05/12/22 [History Last Taken Unknown] gabapentin 100 mg capsule 100 mg PO TIDCM Neuropathy 05/12/22 [History Last Taken Unknown] lidocaine 5 % topical patch 1 patch topical DAILY Pain 05/12/22 [History Last Taken Unknown] menthol 0.44 %-zinc oxide 20.6 % topical ointment (Calmoseptine) 1 applic topical TID Skin protection 05/12/22 [History Last Taken Unknown] nutrition tx glu intol,lac-free,soy-fiber 0.06 gram-1.2 kcal/mL liquid (Glucerna 1.2 Norman) 120 ml PO 4X/DAY Supplement 05/12/22 [History Last Taken Unknown] tramadol 50 mg tablet 50 mg PO Q6H PRN PRN Pain Score 4-10 3 days #12 tabs 05/28/22 [Rx Last Taken Unknown] acetaminophen 300 mg-codeine 30 mg tablet 1 tab PO Q8H PRN 06/11/22 [History Last Taken Unknown] lidocaine 4 % topical patch (Aspercreme (lidocaine)) 1 patch topical DAILY PRN 06/11/22 [History Last Taken Unknown] lisinopril 40 mg tablet 40 mg PO 06/11/22 [History Last Taken Unknown] zinc oxide 20 % topical ointment 1 applic topical TID 06/11/22 [History Last Taken Unknown] cholecalciferol (vitamin D3) 1,250 mcg (50,000 unit) capsule 1,250 mcg PO .every other week 07/24/22 [History Last Taken Unknown] metformin 500 mg tablet 500 mg PO DAILY #30 tabs 07/24/22 [Rx Last Taken Unknown] methimazole 5 mg tablet 2.5 mg PO DAILY #15 tabs 07/24/22 [Rx Last Taken Unknown] sertraline 100 mg tablet mg PO 08/06/22 [History Last Taken Unknown] atenolol 50 mg tablet See Rx Instructions .Route .COMPLEX #90 TABLETS 08/25/22 [Rx Last Taken Unknown] potassium chloride 20 mEq tablet,extended release See Rx Instructions .Route .COMPLEX #30 TABLETS 08/25/22 [Rx Last Taken Unknown] colestipol 1 gram tablet 1 g PO BID 60 days #120 tabs 09/04/22 [Rx Last Taken Unknown] Allergy/AdvReac Type Severity Reaction Status Date / Time latex Allergy Other Verified 09/26/22 17:45 Family History Father CVA (cerebral vascular accident) Mother Heart disease CAD (coronary artery disease) Sister CAD (coronary artery disease) Daughter CAD (coronary artery disease) Myocardial infarction Daughter Diabetes Surgical History H/O: hysterectomy History of back surgery History of cardiac catheterization History of carpal tunnel release History of coronary artery stent placement History of kyphoplasty History of permanent cardiac pacemaker placement (12/30/21) Hx of cholecystectomy Hx of knee surgery S/P hysterectomy Social History household members: none housing: house Smoking Status: Never smoker alcohol intake: never substance use type: does not use caffeine: No what type of physical activity do you participate in: none do you feel safe at home: Yes ROS ROS ED Constitutional Constitutional ED: Denies chills or fever(s) Eyes Eyes: Denies change in vision or discharge from eye(s) ENT ENT ED: Denies discharge from eye(s), rhinorrhea or sore throat Cardiovascular Cardiovascular: Denies chest pain or palpitations Respiratory/Chest Respiratory/Chest: Denies cough or dyspnea Gastrointestinal Gastrointestinal: Denies abdominal pain, diarrhea, nausea or vomiting Genitourinary Genitourinary ED: Denies dysuria Musculoskeletal Musculoskeletal: Reports extremity pain; Denies back pain Integumentary Denies Abrasions or rash Neurologic Neurologic: Denies headache(s) or weakness Psychiatric Psychiatric: Denies anxiety or depression Allergic/Immunologic Allergic/Immunologic ED: Denies lip swelling or urticaria EXAM Physical Exam Const Vital Signs: 09/26/22 17:46 09/26/22 18:26 Temperature 96.9 F L Temperature Source Temporal Pulse Rate 70 Respiratory Rate 16 Respiratory Effort Normal Non-Labored Blood Pressure 148/77 H Blood Pressure Mean 100 Pulse Ox 100 Oxygen Delivery Method Room Air Room Air Positive well nourished and well developed General Appearance ED: well developed HEENT Reports normocephalic HEENT Narrative: Old appearing ecchymosis along the right cheek. Family states this is from a fall a week ago. Eyes PERRL and EOMs intact bilaterally Neck supple Neck Narrative: No C-spine tenderness. Chest Wall inspection of chest normal and palpation of chest normal Resp normal respiratory effort and clear to auscultation bilaterally Cardio regular rate and regular rhythm GI normal to inspection, nondistended, normoactive bowel sounds Palpation: soft Extremity Extremity Narrative: Mild edema and tenderness noted to the left wrist. Good cap refill distally and can wiggle fingers. No tenderness at the left elbow or left shoulder. Neuro oriented x3 and no sensory deficits noted Sensorium / Orientation: alert Psych mental status grossly normal MDM MDM MDM Narrative Medical decision making narrative: Left wrist x-rays were obtained per nursing protocol. Per my interpretation this reveals minimally to nondisplaced fractures of the distal radius and ulna. Radiology interpretation is reviewed. Patient declined anything for pain. Test results discussed with patient and family at bedside. She is placed in an AP Ortho-Glass splint. I did encourage family to stay with her at least this weekend as she may have more trouble getting around with her walker. I did offer admission for a intermediate or rehab placement but they declined. Patient is known to Dr. Tavarez and will follow-up in his office. Radiography Diagnostic Testing: Clinical Impression(s) from Imaging Studies Wrist X-Ray 09/26/22 18:05 IMPRESSION: Distal radius and distal ulna fractures. Electronically Signed: Guicho Martinez MD at 18:17 EST , Procedures Upper Extremity Splints Upper Extremity Splint: Orthoglass Splint Fabrication: Fabricated Location: Left Discharge Plan Triage Chief Complaint: Fall ED Provider: Nighat Velasco Dx/Rx/DC Orders Clinical Impression: Fall, Fx. left wrist Instructions: ED Mechanical Fall, ED Fracture, Wrist, General Prescriptions: No Action acetaminophen [Tylenol Extra Strength] 500 mg tablet 1,000 mg PO Q6H PRN (Reason: Pain) sertraline 100 mg tablet PO lidocaine [Aspercreme (lidocaine)] 4 % adhesive patch,medicated 1 patch topical DAILY PRN lisinopril 40 mg tablet 40 mg PO acetaminophen-codeine 300-30 mg tablet 1 tab PO Q8H PRN zinc oxide 20 % ointment 1 applic topical TID metformin 500 mg tablet 500 mg PO DAILY Qty: 30 6RF methimazole 5 mg tablet 2.5 mg PO DAILY Qty: 15 6RF cholecalciferol (vitamin D3) 1,250 mcg (50,000 unit) capsule 1,250 mcg PO .every other week colestipol 1 gram tablet 1 g PO BID 60 Days Qty: 120 1RF (DME) blood sugar diagnostic Strip See Rx Instructions .ROUTE .MEDSUPPLY Rx Instructions: test three times a day amlodipine 5 mg tablet 5 mg PO DAILY Hold Instructions: HYPOTENSION (DME) blood-glucose meter Kit See Rx Instructions .ROUTE .MEDSUPPLY Rx Instructions: As directed furosemide [Lasix] 40 mg tablet 40 mg PO DAILY lidocaine 5 % adhesive patch,medicated 1 patch topical DAILY Protocol: *Topical Application Instructions APPLICATION INSTRUCTIONS: back aspirin 81 mg tablet,chewable 81 mg PO DAILY@0800 gabapentin 100 mg capsule 100 mg PO TIDCM Glucerna 1.2 Norman 0.06-1.2 gram-kcal/mL liquid 120 ml PO 4X/DAY menthol-zinc oxide [Calmoseptine] 0.44-20.6 % ointment 1 applic topical TID Protocol: *Topical Application Instructions APPLICATION INSTRUCTIONS: apply to groin and perineal tid tramadol 50 mg Tablet 50 mg PO Q6H PRN PRN (Reason: Pain Score 4-10) 3 Days Qty: 12 0RF nitroglycerin 0.4 mg tablet, sublingual 0.4 mg sublingual Q5M PRN (Reason: Cardiac/Chest Pain) Qty: 25 3RF isosorbide mononitrate 60 mg tablet extended release 24 hr 60 mg PO DAILY Qty: 90 3RF Rx Instructions: Take 1 tablet by mouth once daily atenolol 50 mg tablet See Rx Instructions .ROUTE .COMPLEX Qty: 90 3RF Dose Instruction: Take 1 tablet by mouth once daily for blood pressure Rx Instructions: Take 1 tablet by mouth once daily for blood pressure potassium chloride 20 mEq tablet extended release See Rx Instructions .ROUTE .COMPLEX Qty: 30 1RF Dose Instruction: Take 1 tablet by mouth once daily Rx Instructions: Take 1 tablet by mouth once daily Primary Care Provider: Mary Azevedo Referrals: Mary Azevedo MD [Primary Care Provider] - Pratik Tavarez DO [Med Staff - Active Staff] - 5-7 Days Disposition Disposition: Home, Self Care
== END 2022-09-26 19:20 | disposition home or self-care (01) ==
PROVIDERS: Emergency Provider Emergency Medicine; PCP Internal Medicine; Visit Provider Emergency Medicine
DX: S62.102A Fracture of unspecified carpal bone, left wrist, initial encounter for closed fracture (principal); I11.0 Hypertensive heart disease with heart failure; I50.9 Heart failure, unspecified; E11.9 Type 2 diabetes mellitus without complications; I25.10 Atherosclerotic heart disease of native coronary artery without angina pectoris; E78.5 Hyperlipidemia, unspecified; W08.XXXA Fall from other furniture, initial encounter
CPT/HCPCS: 29125; 73110; 99283

== ENCOUNTER → 2022-11-05 | Outpatient (CLI) | payer MEDICARE, SELFPAY ==
[2022-11-05 16:49] LABS: Vitamin D,25 Hydroxy 35.5 ng/mL
[2022-11-05 16:53] LABS: Free T3 1.9 pg/mL (2.18-3.98); T4 Free Direct 0.79 ng/dL (0.76-1.46); Thyroid Stim Hormone (TSH) 0.62 uIU/mL (0.358-3.74)
== END | disposition home or self-care (01) ==
PROVIDERS: PCP Internal Medicine; Referring Provider Internal Medicine Endocrinology, Diabetes & Metabolism; Visit Provider Internal Medicine Endocrinology, Diabetes & Metabolism
DX: E05.90 Thyrotoxicosis, unspecified without thyrotoxic crisis or storm (principal); E11.9 Type 2 diabetes mellitus without complications; M81.0 Age-related osteoporosis without current pathological fracture; E78.5 Hyperlipidemia, unspecified; E55.9 Vitamin D deficiency, unspecified
CPT/HCPCS: 36415; 82306; 84439; 84443; 84481

== ENCOUNTER 2022-11-19 17:15 | Observation (INO) | payer MEDICARE, SELFPAY ==
[2022-11-19 17:18] VITALS: BP 147/49; PULSE 60; RESP 15; TEMP 35.7; O2SAT 100; BMI 23.8
--- NOTE | 2022-11-19 17:37 | EKG12_ITS ---
Test Reason : Blood Pressure : / mmHG Vent. Rate : 061 BPM Atrial Rate : 061 BPM P-R Int : 208 ms QRS Dur : 148 ms QT Int : 526 ms P-R-T Axes : 008 -36 135 degrees QTc Int : 529 ms Atrial-paced rhythm Left axis deviation Left bundle branch block Abnormal ECG Confirmed by TAYLOR PEARSON, DUNCAN ([id number]), technical writer and editor JENIFER WALLACE ([id number]) on 11/21/2022 8:54:06 AM Referred By: SARAH Confirmed By:KAYLA VAZQUEZ MD
--- NOTE | 2022-11-19 17:40 | EX.ED.DYSGE1 ---
HPI History of Present Illness Chief Complaint: Weakness Informant: patient Narrative Narrative: Patient presents with daughter for evaluation of generalized weakness and increased falls. Patient states has had increased falls for several weeks. She did recently break her left wrist and required surgery. Apparently patient was taken to her PCP today and they felt there were too many issues going on and she needed to come in for prison placement. Patient does complain of a wound to her buttocks. [facility] Medical History Abdominal pain Abnormal results of thyroid function studies Anemia Anxiety and depression Atherosclerosis of coronary artery of [place] heart without angina pectoris Back pain Back pain due to injury Bladder disease Cardiology follow-up encounter Chronic back pain Chronic diarrhea Closed left hip fracture Compression fracture Dark stools Depression Diabetes Diarrhea Dietary restriction Essential hypertension Fall Falls Fracture of left distal radius Frequent falls Gastroesophageal reflux disease History of CHF (congestive heart failure) History of echocardiogram History of hemorrhoids History of pulmonary embolus (PE) History of stress test Hyperlipidemia Hypertension Iron deficiency anemia Irritable bowel Ischemic cardiomyopathy Low back pain Lumbar compression fracture Lumbar spinal stenosis Memory deficit Myocardial infarct Non-smoker Nursing assistance required Orthopedic aftercare Osteoporosis Post-menopausal Pulmonary embolism Shortness of breath on exertion 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) Type II diabetes mellitus Vitamin D deficiency Wears dentures Wears glasses Wears hearing aid Home Medications nitroglycerin 0.4 mg sublingual tablet 0.4 mg sublingual Q5M PRN Cardiac/Chest Pain #25 tabs 12/23/21 [Rx Last Taken Unknown] blood sugar diagnostic 12/30/21 [History Last Taken Unknown] blood-glucose meter 12/30/21 [History Last Taken Unknown] isosorbide mononitrate 60 mg tablet,extended release 24 hr 60 mg PO DAILY heart #90 tabs 02/07/22 [Rx Last Taken Unknown] acetaminophen 500 mg tablet (Tylenol Extra Strength) 1,000 mg PO Q6H PRN Pain 02/21/22 [History Last Taken Unknown] aspirin 81 mg chewable tablet 81 mg PO DAILY@0800 Heart health 05/12/22 [History Last Taken Unknown] gabapentin 100 mg capsule 100 mg PO TIDCM Neuropathy 05/12/22 [History Last Taken Unknown] lidocaine 5 % topical patch 1 patch topical DAILY Pain 05/12/22 [History Last Taken Unknown] menthol 0.44 %-zinc oxide 20.6 % topical ointment (Calmoseptine) 1 applic topical TID Skin protection 05/12/22 [History Last Taken Unknown] nutrition tx glu intol,lac-free,soy-fiber 0.06 gram-1.2 kcal/mL liquid (Glucerna 1.2 [place]) 120 ml PO 4X/DAY Supplement 05/12/22 [History Last Taken Unknown] tramadol 50 mg tablet 50 mg PO Q6H PRN PRN Pain Score 4-10 3 days #12 tabs 05/28/22 [Rx Last Taken Unknown] lidocaine 4 % topical patch (Aspercreme (lidocaine)) 1 patch topical DAILY PRN 06/11/22 [History Last Taken Unknown] lisinopril 40 mg tablet 40 mg PO 06/11/22 [History Last Taken Unknown] zinc oxide 20 % topical ointment 1 applic topical TID 06/11/22 [History Last Taken Unknown] cholecalciferol (vitamin D3) 1,250 mcg (50,000 unit) capsule 1,250 mcg PO .every other week 07/24/22 [History Last Taken Unknown] sertraline 100 mg tablet mg PO 08/06/22 [History Last Taken Unknown] atenolol 50 mg tablet See Rx Instructions .Route .COMPLEX #90 TABLETS 08/25/22 [Rx Last Taken Unknown] colestipol 1 gram tablet 1 g PO BID 60 days #120 tabs 09/04/22 [Rx Last Taken Unknown] potassium chloride 20 mEq tablet,extended release See Rx Instructions .Route .COMPLEX #30 TABLETS 10/27/22 [Rx Last Taken Unknown] Prolia 60 mg/mL subcutaneous syringe (denosumab) 60 mg subcut [id number] #1 mL 11/06/22 [Rx Last Taken Unknown] metformin 500 mg tablet 500 mg PO DAILY #30 tabs 11/06/22 [Rx Last Taken Unknown] methimazole 5 mg tablet 2.5 mg PO DAILY #15 tabs 11/06/22 [Rx Last Taken Unknown] amlodipine 5 mg tablet 5 mg PO DAILY blood pressure #90 tabs 11/18/22 [Rx Last Taken Unknown] furosemide 40 mg tablet (Lasix) 40 mg PO BID Fluid retention- take 4 to 6 hours apart #180 tabs 11/18/22 [Rx Last Taken Unknown] Allergy/AdvReac Type Severity Reaction Status Date / Time latex Allergy Other Verified 11/19/22 17:18 Family History Father CVA (cerebral vascular accident) Mother Heart disease CAD (coronary artery disease) Sister CAD (coronary artery disease) Daughter CAD (coronary artery disease) Myocardial infarction Daughter Diabetes Surgical History H/O: hysterectomy History of back surgery History of cardiac catheterization History of carpal tunnel release History of coronary artery stent placement History of kyphoplasty History of permanent cardiac pacemaker placement (12/30/21) Hx of cholecystectomy Hx of knee surgery S/P hysterectomy Social History household members: none housing: house Smoking Status: Never smoker alcohol intake: never substance use type: does not use caffeine: No what type of physical activity do you participate in: none do you feel safe at home: Yes ROS ROS ED Constitutional Constitutional ED: Denies chills or fever(s) Eyes Eyes: Denies change in vision or discharge from eye(s) ENT ENT ED: Denies discharge from eye(s), rhinorrhea or sore throat Cardiovascular Cardiovascular: Denies chest pain or palpitations Respiratory/Chest Respiratory/Chest: Denies cough or dyspnea Gastrointestinal Gastrointestinal: Denies abdominal pain, diarrhea, nausea or vomiting Genitourinary Genitourinary ED: Denies dysuria Musculoskeletal Musculoskeletal: Denies back pain or extremity pain Integumentary Reports other Details: Wound to buttocks ; Denies Abrasions or rash Neurologic Neurologic: Reports weakness; Denies headache(s) Psychiatric Psychiatric: Denies anxiety or depression Allergic/Immunologic Allergic/Immunologic ED: Denies lip swelling or urticaria EXAM Physical Exam Const Vital Signs: 11/19/22 17:18 11/19/22 18:05 11/19/22 20:45 Temperature 96.3 F L Temperature Source Temporal Pulse Rate 60 63 Respiratory Rate 15 17 Respiratory Effort Normal Respiratory Pattern Normal Blood Pressure 147/49 H 128/50 H Blood Pressure Mean 81 76 Pulse Ox 100 97 Oxygen Delivery Method Room Air Positive well nourished and well developed General Appearance ED: well developed HEENT Reports normocephalic and head/scalp atraumatic Eyes PERRL and EOMs intact bilaterally Neck supple Chest Wall inspection of chest normal and palpation of chest normal Resp normal respiratory effort and clear to auscultation bilaterally Cardio regular rate and regular rhythm GI normal to inspection, nondistended, normoactive bowel sounds Palpation: soft Back/Spine Back/Spine Narrative: Erythema noted along the medial buttocks. No open wounds noted at this time. Extremity Extremity Narrative: Mild left wrist tenderness with patient. Surgical scars are healed with no sign infection. Neuro oriented x3 Neuro Narrative: No focal neurologic deficits. Sensorium / Orientation: alert Psych mental status grossly normal MDM MDM MDM Narrative Medical decision making narrative: Lab work and urinalysis obtained. X-ray of the left wrist obtained as this is still causing her pain. Lab Data Attestation: I reviewed the patient's lab results. Labs: Laboratory Results - last 24 hr 11/19/22 11/19/22 11/19/22 18:58 18:58 20:09 WBC 9.2 RBC 3.93 L Hgb 9.5 L Hct 32.8 L MCV 83.5 MCH 24.2 L MCHC 29.0 L RDW Std Deviation 47.8 H RDW Coeff of Aubrie 15.8 H Plt Count 272 MPV 12.3 H Immature Gran % (Auto) 0.500 Neut % (Auto) 76.5 H Lymph % (Auto) 16.9 L [place] % (Auto) 5.4 Eos % (Auto) 0.3 Baso % (Auto) 0.4 Absolute Neuts (auto) 7.1 Absolute Lymphs (auto) 1.56 Nucleated RBC % 0 Sodium 143 Potassium 4.5 Chloride 110 H Carbon Dioxide 24.0 Anion Gap 9 BUN 24 H Creatinine 0.92 Estim Creat Clear Calc 39.84 Est GFR (MDRD) Af Amer 75 Est GFR (MDRD) Non-Af 62 BUN/Creatinine Ratio 25.9 H Glucose 213 H Calcium 9.6 Urine Color Yellow Urine Clarity Clear Urine pH 5.0 Ur Specific [place] 1.015 Urine Protein Negative Urine Glucose (UA) Normal Urine Ketones Negative Urine Occult Blood 10 H Urine Nitrite Positive H Urine Bilirubin Negative Urine Urobilinogen Normal Ur Leukocyte Esterase 100 H Urine RBC 0 SEEN Urine WBC 0-5 SEEN Ur Squamous Epith Cells 0-5 SEEN Ur Renal Epithelial Cell 0-5 SEEN Urine Bacteria 1+ Hyaline Casts 0-5 SEEN Urine Mucus 0 SEEN Radiography Diagnostic Testing: Clinical Impression(s) from Imaging Studies Wrist X-Ray 11/19/22 19:22 IMPRESSION: Healing fractures of the distal radius and ulna. There has been no significant change from the reference exam. Electronically Signed: Jamar Zacarias MD at 19:48 EST , EKG Initial EKG: Attestation: I personally reviewed and interpreted this EKG as follows: Interpretation: - (Paced rhythm at 61 bpm. No acute ischemia.) Treatment and Re-Evaluation Narrative: CBC and chemistry studies are unremarkable. Urinalysis is positive for nitrites and 1+ bacteria, however 0-5 white cells. She will be given a dose of p.o. Keflex and urine culture will be sent. Left wrist x-ray per my interpretation reveals healing fractures. Radiology interpretations reviewed and agrees. Family has set away from the bedside at this time. Plan discussed with them prior to this was that the patient will require admission for prison/rehab placement. I will speak with the hospitalist. Discharge Plan Triage Chief Complaint: Weakness ED Provider: Nighat Velasco Dx/Rx/DC Orders Clinical Impression: Falls frequently, Weakness Prescriptions: No Action acetaminophen [Tylenol Extra Strength] 500 mg tablet 1,000 mg PO Q6H PRN (Reason: Pain) sertraline 100 mg tablet PO lidocaine [Aspercreme (lidocaine)] 4 % adhesive patch,medicated 1 patch topical DAILY PRN lisinopril 40 mg tablet 40 mg PO zinc oxide 20 % ointment 1 applic topical TID cholecalciferol (vitamin D3) 1,250 mcg (50,000 unit) capsule 1,250 mcg PO .every other week metformin 500 mg tablet 500 mg PO DAILY Qty: 30 6RF methimazole 5 mg tablet 2.5 mg PO DAILY Qty: 15 6RF Prolia 60 mg/mL syringe 60 mg subcut [id number] Qty: 1 1RF colestipol 1 gram tablet 1 g PO BID 60 Days Qty: 120 1RF (DME) blood sugar diagnostic Strip See Rx Instructions .ROUTE .MEDSUPPLY Rx Instructions: test three times a day (DME) blood-glucose meter Kit See Rx Instructions .ROUTE .MEDSUPPLY Rx Instructions: As directed lidocaine 5 % adhesive patch,medicated 1 patch topical DAILY Protocol: *Topical Application Instructions APPLICATION INSTRUCTIONS: back aspirin 81 mg tablet,chewable 81 mg PO DAILY@0800 gabapentin 100 mg capsule 100 mg PO TIDCM Glucerna 1.2 [place] 0.06-1.2 gram-kcal/mL liquid 120 ml PO 4X/DAY menthol-zinc oxide [Calmoseptine] 0.44-20.6 % ointment 1 applic topical TID Protocol: *Topical Application Instructions APPLICATION INSTRUCTIONS: apply to groin and perineal tid tramadol 50 mg Tablet 50 mg PO Q6H PRN PRN (Reason: Pain Score 4-10) 3 Days Qty: 12 0RF nitroglycerin 0.4 mg tablet, sublingual 0.4 mg sublingual Q5M PRN (Reason: Cardiac/Chest Pain) Qty: 25 3RF isosorbide mononitrate 60 mg tablet extended release 24 hr 60 mg PO DAILY Qty: 90 3RF Rx Instructions: Take 1 tablet by mouth once daily atenolol 50 mg tablet See Rx Instructions .ROUTE .COMPLEX Qty: 90 3RF Dose Instruction: Take 1 tablet by mouth once daily for blood pressure Rx Instructions: Take 1 tablet by mouth once daily for blood pressure potassium chloride 20 mEq tablet extended release See Rx Instructions .ROUTE .COMPLEX Qty: 30 1RF Dose Instruction: Take 1 tablet by mouth once daily Rx Instructions: Take 1 tablet by mouth once daily amlodipine 5 mg tablet 5 mg PO DAILY Qty: 90 3RF Hold Instructions: HYPOTENSION furosemide [Lasix] 40 mg tablet 40 mg PO BID Qty: 180 3RF Primary Care Provider: Mary Azevedo Referrals: Mary Azevedo MD [Primary Care Provider] - Disposition Disposition: Acute Care Hospital [facility]
[2022-11-19 19:17] LABS: Absolute Lymphocyte Count 1.56 X10^3/uL (0.83-4.51); Absolute Neutrophil Count 7.1 X10^3/uL (2.0-7.7); Basophil# 0.04 X10^3/uL; Basophil% 0.4 % (0-1); Eosinophil# 0.03 X10^3/uL; Eosinophils% 0.3 % (0-5); Hematocrit 32.8 % (37-47); Hemoglobin 9.5 g/dL (12.0-15.0); Lymphocyte # 1.56 X10^3/ul (0.83-4.51); Lymphocyte % 16.9 % (19-41); Mean Corpuscular Hgb 24.2 pg (27.0-32.0); Mean Corpuscular Volume 83.5 fL (81-99); Mean Platelet Vol. 12.3 fl (6.2-12.0); Monocyte% 5.4 % (0-10); NRBC Flagged by Analyzer 0 % (0-5); Neutrophil # 7.06 X10^3/uL (2.7-7.7); Neutrophil % 76.5 % (47-70); Platelet Count 272 K/mm3 (150-450); RBC Distribution Width CV 15.8 % (11.6-14.6); RBC Distribution Width SD 47.8 fl (35.1-43.9); Red Blood Count 3.93 M/mm3 (4.2-5.4); White Blood Count 9.2 K/mm3 (4.4-11.0)
--- NOTE | 2022-11-19 19:22 | RAD_ITS ---
EXAM: XR LEFT WRIST COMPLETE, 3 OR MORE VIEWS CLINICAL INDICATION: pain TECHNIQUE: Frontal, lateral and oblique views of the left wrist. This report was created using [employer] report generation technology. COMPARISON: 11/06/2022 FINDINGS: BONES/JOINTS: Again healing fractures of the distal radius and ulna which are not significantly changed. Carpal bones are intact. Preservation of the joint space. No sclerotic or destructive changes observed. SOFT TISSUES: Unremarkable. No soft tissue swelling or gas. No radiopaque foreign body. RAD/Wrist min 3 Views IMPRESSION: Healing fractures of the distal radius and ulna. There has been no significant change from the reference exam. Electronically Signed: Jamar Zacarias MD at 19:48 EST ,
[2022-11-19 19:28] LABS: Anion Gap 9 (5-15); BUN 24 mg/dL (7-18); BUN/Creat Ratio 25.9 RATIO (10-20); Calcium,Total 9.6 mg/dL (8.5-10.1); Chloride 110 mmol/L (98-107); Creatinine, Serum 0.92 mg/dL (0.55-1.02); EST Glomerular Filtration Rate 62 mL/min (>60); Est Glom Filt Rate - Afr Amer 75 mL/min (>60); Estimated Creatinine Clearance 39.84 ml/min; Glucose 213 mg/dL (74-106); Potassium 4.5 mmol/L (3.5-5.1); Sodium Level 143 mmol/L (136-145)
[2022-11-19 20:32] LABS: Mucous, Urine 0 SEEN /hpf (<or=2+); Red Blood Cells-Urine 0 SEEN /hpf (0-5)
[2022-11-19 20:35] LABS: Color, Urine Yellow (Yellow); Glucose, Dipstick Normal (Normal); Ketone-Dipstick Negative (Negative); Leukocyte Esterase-Dipstick 100 /ul (Negative); Nitrite-Dipstick Positive (Negative); Occult Blood-Urine 10 /ul (Negative); Protein-Dipstick Negative (Negative); Specific Gravity, Urine 1.015 (1.002-1.030); Urine Bilirubin Dipstick Negative (Negative); Urine Clarity Clear (Clear); Urine Urobilinogen Normal (Normal)
[2022-11-19 20:45] VITALS: BP 128/50; PULSE 63; RESP 17; O2SAT 97
[2022-11-19 20:49] LABS: Renal Epithelial Cells 0-5 SEEN /hpf (0-5); Squamous Epithelial Cells - UA 0-5 SEEN /hpf (5-10); White Blood Cells 0-5 SEEN /hpf (0-5)
[2022-11-19 20:50] LABS: Bacteria 1+ /hpf (None Seen); Hyaline Cast 0-5 SEEN /lpf (0-5)
--- NOTE | 2022-11-19 21:26 | PCM.HP.STD ---
[facility] - General General Date of Admission: 11/19/22 Date of Service: 11/19/22 Chief Complaint: Debility, request for skilled nursing placement HPI Narrative LARRY MALDONADO, is a 82 F who presents with the above. Patient has past medical history of hyperthyroidism, type II DM, chronic diarrhea, chronic back pain from vertebral fracture, chronic iron deficiency anemia. She stated that she has had chronic diarrhea ongoing for more than 2 months. She has frequent bowel movement more than 6 times a day. This is worse after eating. She has diarrhea soon after she eats. She has associated abdominal cramps. She denied any fever or chills or recent travel. She is lost a lot of weight -states that she used to weigh 170s and currently is weighing 117 pounds. She denies any night sweats or nausea. She has had 1 episode of vomiting this week. She has incontinence of urine also. She lives alone and typically ambulates with a walker and lately has been having trouble ambulating. Patient stated that her daughter wants her to be placed in the skilled nursing as she is unable to take care of herself. Her vitals in the ED showed blood pressure 147/49, heart rate 60, respiratory 15, temperature 96.3 F, oxygen sat 100% on room air. WBC 9.2, hemoglobin 9.5, platelet count 272, sodium 143, potassium 4.5, chloride 110, bicarbonate 24, BUN 24, creatinine 0.92. X-ray of the wrist shows healing fractures of the distal radius and ulna. [facility] Medical History Abdominal pain Abnormal results of thyroid function studies Anemia Anxiety and depression Atherosclerosis of coronary artery of [place] heart without angina pectoris Back pain Back pain due to injury Bladder disease Cardiology follow-up encounter Chronic back pain Chronic diarrhea Closed left hip fracture Compression fracture Dark stools Depression Diabetes Diarrhea Dietary restriction Essential hypertension [place] Fracture of left distal radius Frequent falls Gastroesophageal reflux disease History of CHF (congestive heart failure) History of echocardiogram History of hemorrhoids History of pulmonary embolus (PE) History of stress test Hyperlipidemia Hypertension Iron deficiency anemia Irritable bowel Ischemic cardiomyopathy Low back pain Lumbar compression fracture Lumbar spinal stenosis Memory deficit Myocardial infarct Non-smoker Nursing assistance required Orthopedic aftercare Osteoporosis Post-menopausal Pulmonary embolism Shortness of breath on exertion 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) Type II diabetes mellitus Vitamin D deficiency Wears dentures Wears glasses Wears hearing aid Home Medications nitroglycerin 0.4 mg sublingual tablet 0.4 mg sublingual Q5M PRN Cardiac/Chest Pain #25 tabs 12/23/21 [Rx Last Taken Unknown] blood sugar diagnostic 12/30/21 [History Last Taken Unknown] blood-glucose meter 12/30/21 [History Last Taken Unknown] isosorbide mononitrate 60 mg tablet,extended release 24 hr 60 mg PO DAILY heart #90 tabs 02/07/22 [Rx Last Taken Unknown] acetaminophen 500 mg tablet (Tylenol Extra Strength) 1,000 mg PO Q6H PRN Pain 02/21/22 [History Last Taken Unknown] aspirin 81 mg chewable tablet 81 mg PO DAILY@0800 Heart health 05/12/22 [History Last Taken Unknown] gabapentin 100 mg capsule 100 mg PO TIDCM Neuropathy 05/12/22 [History Last Taken Unknown] lidocaine 5 % topical patch 1 patch topical DAILY Pain 05/12/22 [History Last Taken Unknown] menthol 0.44 %-zinc oxide 20.6 % topical ointment (Calmoseptine) 1 applic topical TID Skin protection 05/12/22 [History Last Taken Unknown] nutrition tx glu intol,lac-free,soy-fiber 0.06 gram-1.2 kcal/mL liquid (Glucerna 1.2 [place]) 120 ml PO 4X/DAY Supplement 05/12/22 [History Last Taken Unknown] tramadol 50 mg tablet 50 mg PO Q6H PRN PRN Pain Score 4-10 3 days #12 tabs 05/28/22 [Rx Last Taken Unknown] lidocaine 4 % topical patch (Aspercreme (lidocaine)) 1 patch topical DAILY PRN 06/11/22 [History Last Taken Unknown] lisinopril 40 mg tablet 40 mg PO 06/11/22 [History Last Taken Unknown] zinc oxide 20 % topical ointment 1 applic topical TID 06/11/22 [History Last Taken Unknown] cholecalciferol (vitamin D3) 1,250 mcg (50,000 unit) capsule 1,250 mcg PO .every other week 07/24/22 [History Last Taken Unknown] sertraline 100 mg tablet mg PO 08/06/22 [History Last Taken Unknown] atenolol 50 mg tablet See Rx Instructions .Route .COMPLEX #90 TABLETS 08/25/22 [Rx Last Taken Unknown] colestipol 1 gram tablet 1 g PO BID 60 days #120 tabs 09/04/22 [Rx Last Taken Unknown] potassium chloride 20 mEq tablet,extended release See Rx Instructions .Route .COMPLEX #30 TABLETS 10/27/22 [Rx Last Taken Unknown] Prolia 60 mg/mL subcutaneous syringe (denosumab) 60 mg subcut [id number] #1 mL 11/06/22 [Rx Last Taken Unknown] metformin 500 mg tablet 500 mg PO DAILY #30 tabs 11/06/22 [Rx Last Taken Unknown] methimazole 5 mg tablet 2.5 mg PO DAILY #15 tabs 11/06/22 [Rx Last Taken Unknown] amlodipine 5 mg tablet 5 mg PO DAILY blood pressure #90 tabs 11/18/22 [Rx Last Taken Unknown] furosemide 40 mg tablet (Lasix) 40 mg PO BID Fluid retention- take 4 to 6 hours apart #180 tabs 11/18/22 [Rx Last Taken Unknown] Allergy/AdvReac Type Severity Reaction Status Date / Time latex Allergy Other Verified 11/19/22 17:18 Family History Father CVA (cerebral vascular accident) Mother Heart disease CAD (coronary artery disease) Sister CAD (coronary artery disease) Daughter CAD (coronary artery disease) Myocardial infarction Daughter Diabetes Surgical History H/O: hysterectomy History of back surgery History of cardiac catheterization History of carpal tunnel release History of coronary artery stent placement History of kyphoplasty History of permanent cardiac pacemaker placement (12/30/21) Hx of cholecystectomy Hx of knee surgery S/P hysterectomy Social History household members: none housing: house Smoking Status: Never smoker alcohol intake: never substance use type: does not use caffeine: No what type of physical activity do you participate in: none do you feel safe at home: Yes ROS ROS Narrative Constitutional: Reports: Malaise, Weakness, Fatigue, Anorexia, Chills Denies:Fever, Night Sweats, Weight Change Eyes: Denies: Blurred vision, Cataracts, Conjunctivae Inflammation, Pain, Redness, Vision Change HEENT: Denies: Difficulty Hearing, Difficulty Swallowing, Head Aches, Hearing Changes, Sinus Congestion, Sinus Drainage Cardiovascular: Denies: Chest Pain, Orthopnea, Palpitations Respiratory: Denies: Cough, Shortness of breath at rest, Sputum production Gastrointestinal: See HPI Genitourinary: Denies: Dysuria Musculoskeletal: Denies: Joint Pain, Joint stiffness, Joint swelling, Joint Tenderness Skin: Sacral/perineal wound Neurological: Denies: Numbness, Tingling, Focal weakness Vital Signs Vital Signs Vital Signs: 11/19/22 17:18 11/19/22 18:05 11/19/22 20:45 Temperature 96.3 F L Temperature Source Temporal Pulse Rate 60 63 Respiratory Rate 15 17 Respiratory Effort Normal Respiratory Pattern Normal Blood Pressure 147/49 H 128/50 H Blood Pressure Mean 81 76 Pulse Ox 100 97 Oxygen Delivery Method Room Air Weight Weight: 53.524 kg Body Mass Index (BMI) 23.8 Physical Exam Narrative Physical exam: General: Alert, Oriented x3, Cooperative, appears very frail, hard of hearing HEENT: Atraumatic Oral: Moist Mucosa Neck: Supple Lungs: Diminished to auscultation Cardiovascular: HS I+II, regular, no murmurs Abdomen: Bowel Sounds Present, Soft, Non Tender Extremities: No edema Skin: No rashes, No breakdown Neurological: Grossly intact Psych/Mental Status: Appropriate Results Lab / Micro Data Result Diagrams: 11/19/22 18:58 11/19/22 18:58 Labs: Laboratory Results - last 24 hr 11/19/22 18:58: WBC 9.2, RBC 3.93 L, Hgb 9.5 L, Hct 32.8 L, MCV 83.5, MCH 24.2 L, MCHC 29.0 L, RDW Std Deviation 47.8 H, RDW Coeff of Aubrie 15.8 H, Plt Count 272, MPV 12.3 H, Immature Gran % (Auto) 0.500, Neut % (Auto) 76.5 H, Lymph % (Auto) 16.9 L, [place] % (Auto) 5.4, Eos % (Auto) 0.3, Baso % (Auto) 0.4, Absolute Neuts (auto) 7.1, Absolute Lymphs (auto) 1.56, Nucleated RBC % 0 02/01/23 18:58: Sodium 143, Potassium 4.5, Chloride 110 H, Carbon Dioxide 24.0, Anion Gap 9, BUN 24 H, Creatinine 0.92, Estim Creat Clear Calc 39.84, Est GFR (MDRD) Af Amer 75, Est GFR (MDRD) Non-Af 62, BUN/Creatinine Ratio 25.9 H, Glucose 213 H, Calcium 9.6 11/19/22 20:09: Urine Color Yellow, Urine Clarity Clear, Urine pH 5.0, Ur Specific [place] 1.015, Urine Protein Negative, Urine Glucose (UA) Normal, Urine Ketones Negative, Urine Occult Blood 10 H, Urine Nitrite Positive H, Urine Bilirubin Negative, Urine Urobilinogen Normal, Ur Leukocyte Esterase 100 H, Urine RBC 0 SEEN, Urine WBC 0-5 SEEN, Ur Squamous Epith Cells 0-5 SEEN, Ur Renal Epithelial Cell 0-5 SEEN, Urine Bacteria 1+, Hyaline Casts 0-5 SEEN, Urine Mucus 0 SEEN Radiology Impression Wrist X-Ray 11/19/22 19:22 IMPRESSION: Healing fractures of the distal radius and ulna. There has been no significant change from the reference exam. Electronically Signed: Jamar Zacarias MD at 19:48 EST , Assessment & Plan Assessment/Plan (1) Chronic diarrhea: PLAN: Plan 1. Debility, acute on chronic, multifactorial Patient and family are looking forward to skilled nursing placement PT/OT to evaluate and treat Social work/case management consult 2. Chronic diarrhea, unclear etiology for now, Last TSH was 0.62 Will check magnesium and phosphorus Check Stool for enteric panel, ova and parasite Patient is scheduled to see GI on 12/05/21 -we will consult GI in this admission Hold metformin as that can give diarrhea too. 3. Hypothyroidism, last TSH on 11/07/2022 was 0.62 Continue methimazole 4. Type II DM, last HbA1c was 6.6 (goal is <8), on metformin Hold metformin, check HbA1c, Blood glucose checks with insulin sliding scale May need to go off metformin as she has lost a lot of weight already 5. Sacral decubitus ulcer/excoriations, reported, exacerbated by chronic diarrhea Wound RN consult, calmoseptine topical preparation 6. Recent left radial fracture, h/o osteoporosis X-rays of the wrist show healing fractures of the distal radius and ulna Follows with endocrinology in the outpatient, on Prolia 7. Rest of her chronic medical conditions including CAD status post stent/ischemic cardiomyopathy, EF 20 to 25%/chronic diastolic CHF/hyperlipidemia/PAD/status post pacemaker, remained stable but complicates overall care and management Continue amlodipine, aspirin, atenolol, isosorbide 8. DVT PPx- Heparin SC BID Total time spent: 60 minutes of which the majority was spent in reviewing patient's chart, laboratory investigations, imaging, talking to emergency physician, taking history and physically examining patient. Charges/Coding Visit Charges Inpatient E&M: 02471 Init Hosp L2
[2022-11-19] MEDS: Cephalexin 250 MG Capsule 500 MG PO (21:39)
[2022-11-19 21:58] VITALS: BP 120/89; PULSE 65; RESP 16; TEMP 36.8; O2SAT 98
[2022-11-19 23:01] LABS: AST(SGOT) 14 U/L (15-37); Alanine Aminotransfer ALT/SGPT 14 U/L (13-56); Alkaline Phosphatase 110 U/L (45-117); Bilirubin, Direct 0.14 mg/dL (0.00-0.30); Globulin 3.3 g/dL (2.2-4.2); Protein, Total 7.3 g/dL (6.4-8.2)
[2022-11-19 23:30] LABS: Hemoglobin A1c 6.4 % (3.8-5.6)
[2022-11-20 00:07] VITALS: BMI 24.0
--- NOTE | 2022-11-20 00:30 | NURSING ---
pt does not know her home meds. Will need to call family in am
[2022-11-20] MEDS: Menthol/Lanolin/Calamine/Znox 113 GM Tube 1 APPLIC TOPICAL ×4 (00:49→20:48)
[2022-11-20] MEDS: Lactated Ringers 1,000 ML 75 ML IV (00:49)
[2022-11-20] MEDS: Acetaminophen 500 MG Tablet 1000 MG PO ×4 (00:50→20:51)
[2022-11-20 00:54] LABS: Magnesium 1.6 mg/dL (1.6-2.6); Phosphorus 4.1 mg/dL (2.5-4.9)
[2022-11-20 06:36] LABS: Bedside Glucose 105 mg/dL (74-106)
[2022-11-20] MEDS: Heparin Injection (Vial) 5,000 UNIT/ML VIAL 5000 UNIT SC ×3 (06:53→20:44)
[2022-11-20 07:11] LABS: Absolute Neutrophil Count 3.5 X10^3/uL (2.0-7.7); Basophil# 0.06 X10^3/uL; Basophil% 0.9 % (0-1); Eosinophil# 0.11 X10^3/uL; Eosinophils% 1.7 % (0-5); Hematocrit 29.1 % (37-47); Hemoglobin 8.6 g/dL (12.0-15.0); Lymphocyte % 31.1 % (19-41); Mean Corp Hgb Conc 29.6 g/dL (32-36); Mean Corpuscular Hgb 24.6 pg (27.0-32.0); Mean Corpuscular Volume 83.1 fL (81-99); Mean Platelet Vol. 12.3 fl (6.2-12.0); Monocyte# 0.72 X10^3/uL; Monocyte% 11.2 % (0-10); NRBC Flagged by Analyzer 0 % (0-5); Neutrophil # 3.53 X10^3/uL (2.7-7.7); Neutrophil % 54.8 % (47-70); Platelet Count 225 K/mm3 (150-450); RBC Distribution Width SD 48.7 fl (35.1-43.9); White Blood Count 6.4 K/mm3 (4.4-11.0)
[2022-11-20 07:52] LABS: ALB/GLOB Ratio 1.1 RATIO (0.9-2.4); AST(SGOT) 10 U/L (15-37); Alanine Aminotransfer ALT/SGPT 12 U/L (13-56); Albumin, Serum 3.3 g/dL (3.2-5.0); Alkaline Phosphatase 94 U/L (45-117); Anion Gap 8 (5-15); BUN 25 mg/dL (7-18); BUN/Creat Ratio 32.1 RATIO (10-20); Chloride 108 mmol/L (98-107); Creatinine, Serum 0.78 mg/dL (0.55-1.02); EST Glomerular Filtration Rate 75 mL/min (>60); Est Glom Filt Rate - Afr Amer 91 mL/min (>60); Globulin 2.9 g/dL (2.2-4.2); Glucose 113 mg/dL (74-106); Potassium 3.5 mmol/L (3.5-5.1); Protein, Total 6.2 g/dL (6.4-8.2); Sodium Level 141 mmol/L (136-145)
[2022-11-20 08:28] LABS: Magnesium 2.3 mg/dL (1.6-2.6)
[2022-11-20 09:01] VITALS: BP 142/64; PULSE 65; RESP 16; TEMP 36.8; O2SAT 100
--- NOTE | 2022-11-20 09:48 | PCM.PN.HOSP ---
Subjective Subjective Doing well, no issues overnight, at home she was having chronic diarrhea though there have not been any further episodes while she has been here at least per documentation Objective Data Objective Data Vital Signs: Vital Signs Temp Pulse Resp BP Pulse Ox O2 Del Method 98.2 F 65 16 120/89 H 98 Room Air 11/19/22 21:58 11/19/22 21:58 11/19/22 21:58 11/19/22 21:58 11/19/22 21:58 11/20/22 07:10 Oxygen Delivery Method Room Air Weight: 118 lb 2.684 oz Body Mass Index (BMI) 24.0 Intake & Output: Intake and Output for Last 24 Hours 11/19/22 11/20/22 11/21/22 03:59 03:59 03:59 Intake Total 0 / 0 404 / 404 Output Total 0 / 0 Balance 0 / 0 404 / 404 Lab / Micro Data Result Diagrams: 11/20/22 06:57 11/20/22 06:57 Labs: Laboratory Results - last 24 hr 11/19/22 18:58: WBC 9.2, RBC 3.93 L, Hgb 9.5 L, Hct 32.8 L, MCV 83.5, MCH 24.2 L, MCHC 29.0 L, RDW Std Deviation 47.8 H, RDW Coeff of Aubrie 15.8 H, Plt Count 272, MPV 12.3 H, Immature Gran % (Auto) 0.500, Neut % (Auto) 76.5 H, Lymph % (Auto) 16.9 L, Ritchie % (Auto) 5.4, Eos % (Auto) 0.3, Baso % (Auto) 0.4, Absolute Neuts (auto) 7.1, Absolute Lymphs (auto) 1.56, Nucleated RBC % 0 11/19/22 18:58: Sodium 143, Potassium 4.5, Chloride 110 H, Carbon Dioxide 24.0, Anion Gap 9, BUN 24 H, Creatinine 0.92, Estim Creat Clear Calc 39.84, Est GFR (MDRD) Af Amer 75, Est GFR (MDRD) Non-Af 62, BUN/Creatinine Ratio 25.9 H, Glucose 213 H, Calcium 9.6 11/19/22 18:58: Total Bilirubin 0.50, Direct Bilirubin 0.14, AST 14 L, ALT 14, Alkaline Phosphatase 110, Total Protein 7.3, Albumin 4.0, Globulin 3.3 11/19/22 18:58: Hemoglobin A1c 6.4 H 11/19/22 18:58: Phosphorus 4.1, Magnesium 1.6 11/19/22 20:09: Urine Color Yellow, Urine Clarity Clear, Urine pH 5.0, Ur Specific [place] 1.015, Urine Protein Negative, Urine Glucose (UA) Normal, Urine Ketones Negative, Urine Occult Blood 10 H, Urine Nitrite Positive H, Urine Bilirubin Negative, Urine Urobilinogen Normal, Ur Leukocyte Esterase 100 H, Urine RBC 0 SEEN, Urine WBC 0-5 SEEN, Ur Squamous Epith Cells 0-5 SEEN, Ur Renal Epithelial Cell 0-5 SEEN, Urine Bacteria 1+, Hyaline Casts 0-5 SEEN, Urine Mucus 0 SEEN 11/20/22 06:14: POC Glucose 105 11/20/22 06:57: WBC 6.4, RBC 3.50 L, Hgb 8.6 L, Hct 29.1 L, MCV 83.1, MCH 24.6 L, MCHC 29.6 L, RDW Std Deviation 48.7 H, RDW Coeff of Aubrie 16.0 H, Plt Count 225, MPV 12.3 H, Immature Gran % (Auto) 0.300, Neut % (Auto) 54.8, Lymph % (Auto) 31.1, Ritchie % (Auto) 11.2 H, Eos % (Auto) 1.7, Baso % (Auto) 0.9, Absolute Neuts (auto) 3.5, Absolute Lymphs (auto) 2.00, Nucleated RBC % 0 11/20/22 06:57: Sodium 141, Potassium 3.5, Chloride 108 H, Carbon Dioxide 25.0, Anion Gap 8, BUN 25 H, Creatinine 0.78, Estim Creat Clear Calc 36.70, Est GFR (MDRD) Af Amer 91, Est GFR (MDRD) Non-Af 75, BUN/Creatinine Ratio 32.1 H, Glucose 113 H, Calcium 9.0, Total Bilirubin 0.70, AST 10 L, ALT 12 L, Alkaline Phosphatase 94, Total Protein 6.2 L, Albumin 3.3, Globulin 2.9, Albumin/Globulin Ratio 1.1 11/20/22 06:57: Magnesium 2.3 Radiography Diagnostic Testing: Radiology Impression Wrist X-Ray 11/19/22 19:22 IMPRESSION: Healing fractures of the distal radius and ulna. There has been no significant change from the reference exam. Electronically Signed: Jamar Zacarias MD at 19:48 EST , Physical Exam Narrative General: Alert, Oriented x3, Cooperative, No apparent distress HEENT: Atraumatic, PERRLA, EOMI, Normocephalic Oral: Moist Mucosa Neck: Supple, No JVD Lungs: The next, Normal air movement, No rhonchi, No wheeze, No rales Cardiovascular: Regular rate, Regular Rhythm, Normal S1, Normal S2, No murmurs Abdomen: Soft, Non Tender, Non-Distended, No Hepato-splenomegaly Extremities: No edema, Capillary Refill Less than 3 Seconds Skin: Sacral ulcer Musculoskeletal: No Tenderness to Palpation of Joints or Extremities Neurological: Cranial nerves II-XII grossly intact, Motor Exam 5/5 strength throughout, Sensory exam intact to light touch and pain Psych/Mental Status: Normal Affect, Appropriate Assessment & Plan Assessment/Plan (1) Chronic diarrhea: PLAN: Plan 1. Debility with inability to complete ADLs/chronic diarrhea which exacerbates her sacral decubitus ulcer ? We will obtain stool studies ? GI is consulted as she was supposed to see them in about 2 weeks ? PT/OT for discharge planning ? Magnesium was low and was replaced and is now 2.3 phosphorus was normal ? Consult wound care 2. DM 2 ? Last A1c was 6.6 we will hold her metformin ? Accu-Cheks ACHS ? We will adjust insulin as necessary 3. Hyperthyroidism ? Last TSH on the was 0.62 ? Continue with methimazole 4. Recent left radial fracture with a history of osteoporosis ? X-rays of the wrist show healing fractures in the distal radius and ulna ? She does follow with endocrinology and is currently on Prolia 5. Rest of her chronic medical conditions including CAD status post stent/ischemic cardiomyopathy, EF 20 to 25%/chronic diastolic CHF/hyperlipidemia/PAD/status post pacemaker, remained stable but complicates overall care and management Continue amlodipine, aspirin, atenolol, isosorbide DVT: Heparin Her orientation does wax and wane and so we will restart her home medications once they are verified Charges/Coding Visit Charges Inpatient E&M: 17988 Subs Hosp L2
[2022-11-20] MEDS: Insulin Lispro 100 UNIT/ML INSULN.PEN SC ×2 (11:25→20:45)
--- NOTE | 2022-11-20 11:29 | WOUNDNOTE ---
Was asked to see patient for redness to buttocks. assisted patient into the bathroom. patient ambulates well with walker. there is some blanchable redness noted to bilateral buttocks. no open areas noted. patient had small soft unformed stool. caryn care provided. applied calmoseptine. pt tolerated well. assisted patient back into the chair for lunch. there is no need for wound care at this time. nursing aware to notify wound nurse if issues arise.
[2022-11-20 11:41] LABS: Bedside Glucose 214 mg/dL (74-106)
--- NOTE | 2022-11-20 13:14 | CASEMGMT ---
Social Work SW met with pt and introduced self and role of SW. Pt states that she lives alone, denies having any falls recently and states main problem is diarrhea. Pt states she is able to care for herself with bathing and dressing and meals and her family assist with laundry and cleaning. Pt denies need for SNF but states her daughter feels like she needs to go. With pt permission, phone call to pt dgt/HCPOA Ailyn Vazquez and PAWEL left requesting return call to discuss discharge plan. SW will await return call and continue to follow for discharge planning. ANGELICA Yates
[2022-11-20 14:31] VITALS: BP 145/65; PULSE 61; RESP 16; TEMP 36.6; O2SAT 97
--- NOTE | 2022-11-20 15:49 | CHAPLAIN ---
Type of Pastoral Visit _x__ Initial Visit ___ Follow-up Visit ___ On-call Visit ___ General Patient Visit ___ Spiritual Assessment ___ Family Conference ___ Bereavement ___ Rapid Response ___ Code Blue ___ Other (describe below) Pastoral Care Referral From _x__ Patient ___ Family ___ Nurse ___ Physician ___ Dragger Out ___ Accounting Manager Controller ___ Other (describe below) Sacrament/Intervention ___ Active listening ___ Anointing ___ Orthodoxy ___ Bereavement ___ Communion ___ Maria C exploration ___ ___ Life review _x__ Prayer ___ Reconciliation ___ Sacrament of Sick _x__ Supportive presence ___ Wedding ___ Other (describe below) Pastoral Comments patient was sleeping in the chair but awoke to her name; introduced self and role to patient; pt stated I just want to sleep all the time; asked about needs or concerns the patient said she was fine and then she fell asleep; asked the patient if she lived alone and she said yes and then added but I sleep a lot; asked if she wanted a prayer and she said yes; after prayer the patient was sound asleep;
--- NOTE | 2022-11-20 16:01 | CASEMGMT ---
Addendum entered by Daisha Hoskins 11/20/22 16:09: A list of SNF providers including quality and resource use data and consistent with the patient?s preferred geographic region, medical needs, and insurance network were provided from the [facility] and left in pt room for family and pt review. ANGELICA Yates Original Note: Social Work Second call to pt dgt/HCPOA Ailyn with no answer. SW received phone call from pt Daughter in Law Naima who states Ailyn is out of town and unavailable. Naima states that pt has been falling at home. Family checks on her daily and assists but pt does need 24 hour supervision. Naima requesting referral be made to [place]. SW asked Naima to reach out to pt and to Ailyn regarding placement and requested Ailyn call this SW for confirmation of d/c plan. Naima agreeable. SW attempted to meet with pt to discuss family stated need for SNF. Pt sleeping soundly. SW will followup with pt tomorrow. [facility]. THEODORE will continue to follow. ANGELICA Garcia
--- NOTE | 2022-11-20 16:50 | CASEMGMT ---
Social Work SW met with pt, pt's son and dgt in law Hunter and Naima and dgt Ailyn on speaker phone. SW discussed discharge plan with all parties, and after much discussion, pt and family are all agreeable for short term placement at the [facility]. Family agreeable to bring in pt's Prolia medication from home per SNF request. Plan: [facility], pending ANGELICA Youngblood
[2022-11-20 17:00] LABS: Bedside Glucose 143 mg/dL (74-106)
[2022-11-20] MEDS: Furosemide 40 MG Tablet PO (18:02)
[2022-11-20 20:15] VITALS: O2SAT 97
[2022-11-20 20:33] VITALS: BP 151/61; PULSE 69; RESP 18; TEMP 36.6; O2SAT 99
[2022-11-20 21:15] LABS: Bedside Glucose 196 mg/dL (74-106)
[2022-11-21 03:22] VITALS: BP 135/53; PULSE 60; RESP 18; TEMP 36.9; O2SAT 97
[2022-11-21 06:50] LABS: Absolute Lymphocyte Count 1.88 X10^3/uL (0.83-4.51); Basophil# 0.04 X10^3/uL; Basophil% 0.7 % (0-1); Eosinophil# 0.17 X10^3/uL; Eosinophils% 3.1 % (0-5); Lymphocyte # 1.88 X10^3/ul (0.83-4.51); Lymphocyte % 33.8 % (19-41); Mean Corpuscular Hgb 24.6 pg (27.0-32.0); Mean Platelet Vol. 11.7 fl (6.2-12.0); NRBC Flagged by Analyzer 0 % (0-5); Neutrophil # 2.95 X10^3/uL (2.7-7.7); Platelet Count 226 K/mm3 (150-450); RBC Distribution Width CV 15.8 % (11.6-14.6); RBC Distribution Width SD 47.2 fl (35.1-43.9); Red Blood Count 3.66 M/mm3 (4.2-5.4); White Blood Count 5.6 K/mm3 (4.4-11.0)
[2022-11-21] MEDS: Heparin Injection (Vial) 5,000 UNIT/ML VIAL 5000 UNIT SC ×2 (06:55→15:53)
[2022-11-21] MEDS: Menthol/Lanolin/Calamine/Znox 113 GM Tube 1 APPLIC TOPICAL ×2 (06:55→15:52)
[2022-11-21] MEDS: Acetaminophen 500 MG Tablet 1000 MG PO ×2 (06:55→15:59)
[2022-11-21 07:08] VITALS: O2SAT 97
[2022-11-21 07:17] LABS: Anion Gap 9 (5-15); BUN 20 mg/dL (7-18); BUN/Creat Ratio 28.9 RATIO (10-20); Calcium,Total 8.9 mg/dL (8.5-10.1); Chloride 107 mmol/L (98-107); Creatinine, Serum 0.69 mg/dL (0.55-1.02); EST Glomerular Filtration Rate 86 mL/min (>60); Est Glom Filt Rate - Afr Amer 104 mL/min (>60); Estimated Creatinine Clearance 38.34 ml/min; Glucose 123 mg/dL (74-106); Potassium 3.6 mmol/L (3.5-5.1); Sodium Level 140 mmol/L (136-145)
[2022-11-21 07:20] LABS: Bedside Glucose 125 mg/dL (74-106)
[2022-11-21] MEDS: Potassium Chloride Oral Tablet 20 MEQ PO (08:55)
[2022-11-21] MEDS: Colestipol 1 GM TABLET PO ×2 (08:55→16:04)
[2022-11-21] MEDS: Aspirin 81 MG TAB.CHEW PO (08:55)
[2022-11-21] MEDS: amLODIPine 5 MG Tablet PO (08:56)
[2022-11-21] MEDS: Methimazole 5 MG Tablet 2.5 MG PO (08:56)
[2022-11-21] MEDS: Furosemide 40 MG Tablet PO (08:56)
[2022-11-21] MEDS: Isosorbide Mononitrate 60 MG Tablet PO (08:56)
[2022-11-21] MEDS: Lisinopril 40 MG Tablet PO (08:57)
[2022-11-21] MEDS: Sertraline 100 MG Tablet PO (08:57)
[2022-11-21] MEDS: Atenolol 50 MG Tablet PO (08:58)
[2022-11-21 09:08] VITALS: BP 144/64; PULSE 60; RESP 18; TEMP 37.6; O2SAT 95
--- NOTE | 2022-11-21 09:28 | CASEMGMT ---
Social Work [facility] reports precert has been obtained. Physician updated. Plan: [facility], when medically ready ANGELICA Yates
--- NOTE | 2022-11-21 11:05 | PCM.TXEXTCAR ---
Diet Diet Order/Speech Therapy: 11/20/22 00:19 Diet: Regular - General Food consistency:: Regular Liquid Consistency:: Regular/Thin Routine Orders/Code Status Routine Lab Work: CBC and BMP Code Status: DNRCC-A Therapies Physical Therapy: Eval and Treat Occupational Therapy: Eval and Treat Problem/Diagnosis (1) Chronic diarrhea: Status: Chronic Code(s): K52.9 - Noninfective gastroenteritis and colitis, unspecified Plan 1. Debility with inability to complete ADLs/chronic diarrhea which exacerbates her sacral decubitus ulcer ? We will obtain stool studies ? GI is consulted as she was supposed to see them in about 2 weeks ? PT/OT for discharge planning ? Magnesium was low and was replaced and is now 2.3 phosphorus was normal ? Consult wound care 2. DM 2 ? Last A1c was 6.6 we will hold her metformin ? Accu-Cheks ACHS ? We will adjust insulin as necessary 3. Hyperthyroidism ? Last TSH on the was 0.62 ? Continue with methimazole 4. Recent left radial fracture with a history of osteoporosis ? X-rays of the wrist show healing fractures in the distal radius and ulna ? She does follow with endocrinology and is currently on Prolia 5. Rest of her chronic medical conditions including CAD status post stent/ischemic cardiomyopathy, EF 20 to 25%/chronic diastolic CHF/hyperlipidemia/PAD/status post pacemaker, remained stable but complicates overall care and management Continue amlodipine, aspirin, atenolol, isosorbide DVT: Heparin Her orientation does wax and wane and so we will restart her home medications once they are verified Allergies/Procedures Done in Hospital Allergies latex Allergy (Verified 11/19/22 17:18) Other RASH ON HANDS WHEN SHE USED LATEX GLOVES WHEN WORKED AT [employer] 17 YRS AGO Procedures: None Type of Care/Length of Stay Estimated LOS: Convalescent Care Less Than 30 days Type of Care Needed: Skilled Rehab Potential: Good Prognosis: Good Additional Orders/Day of Discharge Day of Discharge: 11/21/22 Discharge Plan Admission Admit Date/Time: 11/19/22 21:21 Attending Provider: Bhargav Bryant Primary Care Provider: Mary Azevedo Consulting Providers: Madhavi Lee Discharge Orders/Prescriptions Prescriptions: New cephalexin 500 mg Capsule 500 mg PO Q8 Qty: 0 0RF Continued acetaminophen [Tylenol Extra Strength] 500 mg tablet 1,000 mg PO Q6H PRN (Reason: Pain) sertraline 100 mg tablet 100 mg PO DAILY lidocaine [Aspercreme (lidocaine)] 4 % adhesive patch,medicated 1 patch topical DAILY PRN (Reason: Pain) lisinopril 40 mg tablet 40 mg PO DAILY zinc oxide 20 % ointment 1 applic topical TID cholecalciferol (vitamin D3) 1,250 mcg (50,000 unit) capsule 1,250 mcg PO .every other week metformin 500 mg tablet 500 mg PO DAILY Qty: 30 6RF methimazole 5 mg tablet 2.5 mg PO DAILY Qty: 15 6RF Prolia 60 mg/mL syringe 60 mg subcut [id number] Qty: 1 1RF colestipol 1 gram tablet 1 g PO BID 60 Days Qty: 120 1RF (DME) blood sugar diagnostic Strip See Rx Instructions .ROUTE .MEDSUPPLY Rx Instructions: test three times a day (DME) blood-glucose meter Kit See Rx Instructions .ROUTE .MEDSUPPLY Rx Instructions: As directed lidocaine 5 % adhesive patch,medicated 1 patch topical DAILY Protocol: *Topical Application Instructions APPLICATION INSTRUCTIONS: back aspirin 81 mg tablet,chewable 81 mg PO DAILY@0800 gabapentin 100 mg capsule 100 mg PO TIDCM Glucerna 1.2 [place] 0.06-1.2 gram-kcal/mL liquid 120 ml PO 4X/DAY menthol-zinc oxide [Calmoseptine] 0.44-20.6 % ointment 1 applic topical TID Protocol: *Topical Application Instructions APPLICATION INSTRUCTIONS: apply to groin and perineal tid tramadol 50 mg Tablet 50 mg PO Q6H PRN PRN (Reason: Pain Score 4-10) 3 Days Qty: 12 0RF atenolol 50 mg tablet 50 mg PO DAILY Rx Instructions: Take 1 tablet by mouth once daily for blood pressure potassium chloride 20 mEq tablet extended release 20 meq PO DAILY Rx Instructions: Take 1 tablet by mouth once daily nitroglycerin 0.4 mg tablet, sublingual 0.4 mg sublingual Q5M PRN (Reason: Cardiac/Chest Pain) Qty: 25 3RF isosorbide mononitrate 60 mg tablet extended release 24 hr 60 mg PO DAILY Qty: 90 3RF Rx Instructions: Take 1 tablet by mouth once daily amlodipine 5 mg tablet 5 mg PO DAILY Qty: 90 3RF Hold Instructions: HYPOTENSION furosemide [Lasix] 40 mg tablet 40 mg PO BID Qty: 180 3RF Referrals / Follow Up: Mary Azevedo MD [Primary Care Provider] - Disposition Disposition (needs filled in before D/C Order can be placed): [facility] Facility
[2022-11-21] MEDS: 0.9% Saline Lock 10 ML Syringe IV (11:10)
[2022-11-21 11:30] LABS: Bedside Glucose 191 mg/dL (74-106)
[2022-11-21] MEDS: Cephalexin 500 MG Capsule PO (12:27)
[2022-11-21] MEDS: Insulin Lispro 100 UNIT/ML INSULN.PEN SC (12:27)
--- NOTE | 2022-11-21 12:58 | PCM.DC.SUM ---
Providers Date of Admission: 11/19/22 Primary Care Physician: Dr. Mary Azevedo MD Consultations 11/20/22 00:19 Consult: Gastroenterology Routine Consulting Provider: [facility] Reason for Consult: Chronic diarrhea EMERGENT Consult: No MD Notified: Yes Date Notified: 11/20/22 Time Notified: 05:56 Method of Notification: Text Consult: Onc/Wound/life insurance specialist Routine Comment: Reason for Consult:: Excoriation of sacral region Reason For Visit: DEBILITY Diagnosis Discharge Diagnosis (1) Chronic diarrhea: Status: Chronic Code(s): K52.9 - Noninfective gastroenteritis and colitis, unspecified Plan 1. Debility with inability to complete ADLs/chronic diarrhea which exacerbates her sacral decubitus ulcer ? We will obtain stool studies ? GI is consulted as she was supposed to see them in about 2 weeks ? PT/OT for discharge planning ? Magnesium was low and was replaced and is now 2.3 phosphorus was normal ? Consult wound care 2. DM 2 ? Last A1c was 6.6 we will hold her metformin ? Accu-Cheks ACHS ? We will adjust insulin as necessary 3. Hyperthyroidism ? Last TSH on the was 0.62 ? Continue with methimazole 4. Recent left radial fracture with a history of osteoporosis ? X-rays of the wrist show healing fractures in the distal radius and ulna ? She does follow with endocrinology and is currently on Prolia 5. Rest of her chronic medical conditions including CAD status post stent/ischemic cardiomyopathy, EF 20 to 25%/chronic diastolic CHF/hyperlipidemia/PAD/status post pacemaker, remained stable but complicates overall care and management Continue amlodipine, aspirin, atenolol, isosorbide DVT: Heparin Her orientation does wax and wane and so we will restart her home medications once they are verified Medications at Discharge Home Medications nitroglycerin 0.4 mg sublingual tablet 0.4 mg sublingual Q5M PRN Cardiac/Chest Pain #25 tabs 12/23/21 blood sugar diagnostic 12/30/21 blood-glucose meter 12/30/21 isosorbide mononitrate 60 mg tablet,extended release 24 hr 60 mg PO DAILY heart #90 tabs 02/07/22 acetaminophen 500 mg tablet (Tylenol Extra Strength) 1,000 mg PO Q6H PRN Pain 02/21/22 aspirin 81 mg chewable tablet 81 mg PO DAILY@0800 Heart health 05/12/22 gabapentin 100 mg capsule 100 mg PO TIDCM Neuropathy 05/12/22 lidocaine 5 % topical patch 1 patch topical DAILY Pain 05/12/22 menthol 0.44 %-zinc oxide 20.6 % topical ointment (Calmoseptine) 1 applic topical TID Skin protection 05/12/22 nutrition tx glu intol,lac-free,soy-fiber 0.06 gram-1.2 kcal/mL liquid (Glucerna 1.2 Norman) 120 ml PO 4X/DAY Supplement 05/12/22 tramadol 50 mg tablet 50 mg PO Q6H PRN PRN Pain Score 4-10 3 days #12 tabs 05/28/22 lidocaine 4 % topical patch (Aspercreme (lidocaine)) 1 patch topical DAILY PRN Pain 06/11/22 lisinopril 40 mg tablet 40 mg PO DAILY 06/11/22 zinc oxide 20 % topical ointment 1 applic topical TID 06/11/22 cholecalciferol (vitamin D3) 1,250 mcg (50,000 unit) capsule 1,250 mcg PO .every other week 07/24/22 sertraline 100 mg tablet 100 mg PO DAILY 08/06/22 colestipol 1 gram tablet 1 g PO BID 60 days #120 tabs 09/04/22 Prolia 60 mg/mL subcutaneous syringe (denosumab) 60 mg subcut [id number] #1 mL 11/06/22 metformin 500 mg tablet 500 mg PO DAILY #30 tabs 11/06/22 methimazole 5 mg tablet 2.5 mg PO DAILY #15 tabs 11/06/22 amlodipine 5 mg tablet 5 mg PO DAILY blood pressure #90 tabs 11/18/22 furosemide 40 mg tablet (Lasix) 40 mg PO BID Fluid retention- take 4 to 6 hours apart #180 tabs 11/18/22 atenolol 50 mg tablet 50 mg PO DAILY 11/20/22 potassium chloride 20 mEq tablet,extended release 20 meq PO DAILY 11/20/22 cephalexin 500 mg capsule 500 mg PO Q8 #0 caps 11/21/22 Hospital Course Operations None Procedures None Summary of Care Provided Minutes Spent on Discharge: 39 Hospital Course: Per HPI: LARRY MALDONADO, is a 82 F who presents with the above. Patient has past medical history of hyperthyroidism, type II DM, chronic diarrhea, chronic back pain from vertebral fracture, chronic iron deficiency anemia. She stated that she has had chronic diarrhea ongoing for more than 2 months.? She has frequent bowel movement more than 6 times a day.? This is worse after eating.? She has diarrhea soon after she eats.? She has associated abdominal cramps.? She denied any fever or chills or recent travel.? She is lost a lot of weight -states that she used to weigh 170s and currently is weighing 117 pounds.? She denies any night sweats or nausea.? She has had 1 episode of vomiting this week.? She has incontinence of urine also.? She lives alone and typically ambulates with a walker and lately has been having trouble ambulating. Patient stated that her daughter wants her to be placed in the detention as she is unable to take care of herself.? Her vitals in the ED showed blood pressure 147/49, heart rate 60, respiratory 15, temperature 96.3 F, oxygen sat 100% on room air.? WBC 9.2, hemoglobin 9.5, platelet count 272, sodium 143, potassium 4.5, chloride 110, bicarbonate 24, BUN 24, creatinine 0.92. X-ray of the wrist shows healing fractures of the distal radius and ulna. Hospital Course: 1.? Debility with inability to complete ADLs/chronic diarrhea which exacerbates her sacral decubitus ulcer/E. coli UTI ? We will obtain stool studies ? GI is consulted as she was supposed to see them in about 2 weeks ? PT/OT for discharge planning ? Magnesium was low and was replaced and is now 2.3 phosphorus was normal ? Consult wound care ? Given the fact that she has had increased weakness despite no dysuria or frequency, her urine cultures with 80-100,000 CFU's of E. coli that is pansensitive, we will start her on Keflex and discharge her to complete 4 more days of p.o. antibiotics. Plan for discharge to SNF today for therapy. She can resume all of her home medications on discharge 2.? DM 2 ? Last A1c was 6.6 we will hold her metformin ? Accu-Cheks ACHS ? We will adjust insulin as necessary 3.? Hyperthyroidism ? Last TSH on the was 0.62 ? Continue with methimazole 4.? Recent left radial fracture with a history of osteoporosis ? X-rays of the wrist show healing fractures in the distal radius and ulna ? She does follow with endocrinology and is currently on Prolia 5.? Rest of her chronic medical conditions including CAD status post stent/ischemic cardiomyopathy, EF 20 to 25%/chronic diastolic CHF/hyperlipidemia/PAD/status post pacemaker, remained stable but complicates overall care and management Continue amlodipine, aspirin, atenolol, isosorbide Physical Exam Narrative General: Alert, Oriented x3, Cooperative, No apparent distress HEENT: Atraumatic, PERRLA, EOMI, Normocephalic Oral: Moist Mucosa Neck: Supple, No JVD Lungs: Diminished, Normal air movement, No rhonchi, No wheeze, No rales Cardiovascular: Regular rate, Regular Rhythm, Normal S1, Normal S2, No murmurs Abdomen: Soft, Non Tender, Non-Distended, No Hepato-splenomegaly Extremities: No edema, Capillary Refill Less than 3 Seconds Skin: Sacral ulcer Musculoskeletal: No Tenderness to Palpation of Joints or Extremities Neurological: Cranial nerves II-XII grossly intact, Motor Exam 5/5 strength throughout, Sensory exam intact to light touch and pain Psych/Mental Status: Normal Affect, Appropriate Weight / BMI Weight Weight: 123 lb 7.342 oz Body Mass Index (BMI) 24.0 ABG / Lab / Microbiology Data Result Diagrams: 11/21/22 06:45 11/21/22 06:45 Laboratory: Laboratory Results - last 24 hr 11/20/22 16:23: POC Glucose 143 H 11/20/22 20:47: POC Glucose 196 H 11/21/22 06:45: WBC 5.6, RBC 3.66 L, Hgb 9.0 L, Hct 30.0 L, MCV 82.0, MCH 24.6 L, MCHC 30.0 L, RDW Std Deviation 47.2 H, RDW Coeff of Aubrie 15.8 H, Plt Count 226, MPV 11.7, Immature Gran % (Auto) 0.400, Neut % (Auto) 53.0, Lymph % (Auto) 33.8, [place] % (Auto) 9.0, Eos % (Auto) 3.1, Baso % (Auto) 0.7, Absolute Neuts (auto) 3.0, Absolute Lymphs (auto) 1.88, Nucleated RBC % 0 11/21/22 06:45: Sodium 140, Potassium 3.6, Chloride 107, Carbon Dioxide 24.0, Anion Gap 9, BUN 20 H, Creatinine 0.69, Estim Creat Clear Calc 38.34, Est GFR (MDRD) Af Amer 104, Est GFR (MDRD) Non-Af 86, BUN/Creatinine Ratio 28.9 H, Glucose 123 H, Calcium 8.9 11/21/22 06:54: POC Glucose 125 H 11/21/22 11:07: POC Glucose 191 H Microbiology: Microbiology 11/21/22 10:59 Nasal Secretion SARS-CoV-2 Antigen (Rapid) - Final 11/19/22 20:09 Urine, Clean Catch Urine Culture - Final Escherichia coli Meaningful Use Info Meaningful Use Diagnoses (Choose all that apply): None applicable Discharge Plan Admission Admit Date/Time: 11/19/22 21:21 Attending Provider: Bhargav Bryant Primary Care Provider: Mary Azevedo Consulting Providers: Madhavi Lee Discharge Orders/Prescriptions Prescriptions: New cephalexin 500 mg Capsule 500 mg PO Q8 Qty: 0 0RF Continued acetaminophen [Tylenol Extra Strength] 500 mg tablet 1,000 mg PO Q6H PRN (Reason: Pain) sertraline 100 mg tablet 100 mg PO DAILY lidocaine [Aspercreme (lidocaine)] 4 % adhesive patch,medicated 1 patch topical DAILY PRN (Reason: Pain) lisinopril 40 mg tablet 40 mg PO DAILY zinc oxide 20 % ointment 1 applic topical TID cholecalciferol (vitamin D3) 1,250 mcg (50,000 unit) capsule 1,250 mcg PO .every other week metformin 500 mg tablet 500 mg PO DAILY Qty: 30 6RF methimazole 5 mg tablet 2.5 mg PO DAILY Qty: 15 6RF Prolia 60 mg/mL syringe 60 mg subcut [id number] Qty: 1 1RF colestipol 1 gram tablet 1 g PO BID 60 Days Qty: 120 1RF (DME) blood sugar diagnostic Strip See Rx Instructions .ROUTE .MEDSUPPLY Rx Instructions: test three times a day (DME) blood-glucose meter Kit See Rx Instructions .ROUTE .MEDSUPPLY Rx Instructions: As directed lidocaine 5 % adhesive patch,medicated 1 patch topical DAILY Protocol: *Topical Application Instructions APPLICATION INSTRUCTIONS: back aspirin 81 mg tablet,chewable 81 mg PO DAILY@0800 gabapentin 100 mg capsule 100 mg PO TIDCM Glucerna 1.2 Norman 0.06-1.2 gram-kcal/mL liquid 120 ml PO 4X/DAY menthol-zinc oxide [Calmoseptine] 0.44-20.6 % ointment 1 applic topical TID Protocol: *Topical Application Instructions APPLICATION INSTRUCTIONS: apply to groin and perineal tid tramadol 50 mg Tablet 50 mg PO Q6H PRN PRN (Reason: Pain Score 4-10) 3 Days Qty: 12 0RF atenolol 50 mg tablet 50 mg PO DAILY Rx Instructions: Take 1 tablet by mouth once daily for blood pressure potassium chloride 20 mEq tablet extended release 20 meq PO DAILY Rx Instructions: Take 1 tablet by mouth once daily nitroglycerin 0.4 mg tablet, sublingual 0.4 mg sublingual Q5M PRN (Reason: Cardiac/Chest Pain) Qty: 25 3RF isosorbide mononitrate 60 mg tablet extended release 24 hr 60 mg PO DAILY Qty: 90 3RF Rx Instructions: Take 1 tablet by mouth once daily amlodipine 5 mg tablet 5 mg PO DAILY Qty: 90 3RF Hold Instructions: HYPOTENSION furosemide [Lasix] 40 mg tablet 40 mg PO BID Qty: 180 3RF Referrals / Follow Up: Mary Azevedo MD [Primary Care Provider] - Disposition Disposition (needs filled in before D/C Order can be placed): Nursing Home Facility Charges/Coding Visit Charges Inpatient E&M: 54269 Disch Hosp >30min
--- NOTE | 2022-11-21 13:21 | CASEMGMT ---
Social Work Return messaged from [facility] and [facility]. Both facilities can accept pt. SW updated pt and her sister who is in the room and pt choosing [facility]. Both facilities updated and precert will be started at this time. Pt aware that she will remain at hospital until precert is obtained. Plan: [facility], pending precert ANGELICA Yates
[2022-11-21 15:00] VITALS: BP 122/58; PULSE 60; RESP 18; TEMP 37.2; O2SAT 96
--- NOTE | 2022-11-21 15:12 | CASEMGMT ---
Social Work Precert has been obtained. Physician updated and pt is ready for discharge today. PASRR completed in [facility] and sent along with discharge orders and covid results to [facility] via [facility]. Transportation arranged with [facility] for 5:00 pickup via wheelchair van. SW met with pt and updated on discharge plan. Phone call to dgt in law Naima and updated. Naima agreeable and to contact pt dgt Ailyn who is still out of town. [facility] and bedside nurse notified of discharge time. Disposition: [facility], skilled level of care ANGELICA Yates
[2022-11-21 21:31] LABS: Bedside Glucose 123 mg/dL (74-106)
--- NOTE | 2022-12-03 13:59 | CM.ED ---
Charles from [facility] called and inquired as to the discharge status for patient. Patient discharged to the [facility]. Leonarda HANSON
== END 2022-11-21 17:18 | disposition skilled nursing facility (03) ==
LOC: ED 21:05 → MS3 21:56
PROVIDERS: Admitting Provider Internal Medicine; Emergency Provider Emergency Medicine; PCP Internal Medicine; Visit Provider Family Medicine
DX: K52.9 Noninfective gastroenteritis and colitis, unspecified (principal); E11.51 Type 2 diabetes mellitus with diabetic peripheral angiopathy without gangrene; I11.0 Hypertensive heart disease with heart failure; I50.32 Chronic diastolic (congestive) heart failure; Z79.82 Long term (current) use of aspirin; B96.20 Unspecified Escherichia coli [E. coli] as the cause of diseases classified elsewhere; E78.5 Hyperlipidemia, unspecified; Z60.2 Problems related to living alone; I25.5 Ischemic cardiomyopathy; R53.81 Other malaise; S52.609D Unspecified fracture of lower end of unspecified ulna, subsequent encounter for closed fracture with routine healing; S52.502D Unspecified fracture of the lower end of left radius, subsequent encounter for closed fracture with routine healing; Z79.84 Long term (current) use of oral hypoglycemic drugs; G89.29 Other chronic pain; N39.0 Urinary tract infection, site not specified; I25.10 Atherosclerotic heart disease of native coronary artery without angina pectoris; L89.159 Pressure ulcer of sacral region, unspecified stage; Z95.0 Presence of cardiac pacemaker; E05.90 Thyrotoxicosis, unspecified without thyrotoxic crisis or storm; D50.9 Iron deficiency anemia, unspecified; Z79.899 Other long term (current) drug therapy; R29.6 Repeated falls; X58.XXXD Exposure to other specified factors, subsequent encounter; K21.9 Gastro-esophageal reflux disease without esophagitis
CPT/HCPCS: 36415; 73110; 80048; 80053; 80076; 81001; 82962; 83036; 83735; 84100; 85025; 87040; 87077; 87086; 87088; 87177; 87186; 87209; 87426; 87506; 93005; 94668; 96360; 96361; 96372; 97110; 97162; 97166; 97535; 99221; 99252; 99283; J7120; A4216; G0378; G0463

== ENCOUNTER → 2022-11-24 | Outpatient (CLI) | payer MEDICARE, SELFPAY ==
[2022-11-24 15:24] VITALS: BP 102/48; PULSE 60; RESP 16; O2SAT 100; BMI 24.2
[2022-11-24] MEDS: DENOSUMAB 60 MG/ML SC (15:28)
== END | disposition home or self-care (01) ==
PROVIDERS: PCP Internal Medicine; Referring Provider Internal Medicine Endocrinology, Diabetes & Metabolism; Visit Provider Internal Medicine Endocrinology, Diabetes & Metabolism
DX: M81.0 Age-related osteoporosis without current pathological fracture (principal)
CPT/HCPCS: 96372; J0897

== ENCOUNTER → 2022-12-05 | Outpatient (CLI) | payer MEDICARE, SELFPAY ==
[2022-12-05 15:56] LABS: Hemoglobin 9.5 g/dL (12.0-15.0)
[2022-12-05 16:34] LABS: Erythrocyte Sedimentation Rate 33 mm/hr (0-30)
[2022-12-05 16:49] LABS: CRP < 2.90 mg/L (0.0-3.0); LDH 144 U/L (84-246)
[2022-12-08 15:07] LABS: Anti-Centromere B Ab <0.2 AI (0.0-0.9); Anti-Chromatin <0.2 AI (0.0-0.9); Anti-Jo <0.2 AI (0.0-0.9); Anti-Scleroderma-70 AB <0.2 AI (0.0-0.9); Endomysial Antibody IgA Negative (Negative); RNP Ab 0.3 AI (0.0-0.9); SJOGREN'S Anti-SS-A test < 0.2 AI (0.0-0.9); SJOGREN'S Anti-SS-B test < 0.2 AI (0.0-0.9); Smith Ab <0.2 AI (0.0-0.9)
[2022-12-08 19:20] LABS: Anti-dsDNA Ab <1 IU/mL (0-9); Immunoglobulin A 222 mg/dL (64-422); t-Transglutaminase IgA <2 U/mL (0-3)
[2022-12-13 15:07] LABS: Albumin 3.7 g/dL (2.9-4.4); Alpha-1-Globulins 0.3 g/dL (0.0-0.4); Cytoplasmic Ab (C-ANCA) <1:20 titer (Neg:<1:20); Gamma Globulin 0.6 g/dL (0.4-1.8); Immunoglobulin A 225 mg/dL (64-422); Immunoglobulin E 81 IU/mL (6-495); Immunoglobulin G 626 mg/dL (586-1602); Immunoglobulin M 56 mg/dL (26-217); PROEL- TOTAL PROTEIN 6.9 g/dL (6.0-8.5)
[2022-12-14 09:18] LABS: Perinuclear Ab (P-ANCA) <1:20 titer (Neg:<1:20)
== END | disposition home or self-care (01) ==
PROVIDERS: PCP Internal Medicine; Referring Provider Internal Medicine Gastroenterology; Visit Provider Internal Medicine Gastroenterology
DX: K52.9 Noninfective gastroenteritis and colitis, unspecified (principal)
CPT/HCPCS: 82784; 82785; 83516; 83615; 84165; 85018; 85652; 86140; 86225; 86235; 86255; 86256; 86334

== ENCOUNTER 2022-12-10 16:51 | Outpatient (CLI) | payer MEDICARE, SELFPAY ==
[2022-12-16 14:28] LABS: Pancreatic Elastase, Fecal 487 (>200)
[2022-12-19 08:27] LABS: Calprotectin, Stool <16 ug/g (0-120)
== END 2022-12-10 23:59 | disposition home or self-care (01) ==
PROVIDERS: PCP Internal Medicine; Visit Provider Internal Medicine Gastroenterology
DX: A04.72 Enterocolitis due to Clostridium difficile, not specified as recurrent (principal); K52.9 Noninfective gastroenteritis and colitis, unspecified; R19.5 Other fecal abnormalities
CPT/HCPCS: 82653; 83630; 83993; 87177; 87209; 87329; 87493; 87506

== ENCOUNTER 2022-12-21 19:56 | Emergency (ER) | payer MEDICARE, SELFPAY ==
[2022-12-21 19:58] VITALS: BP 122/49; PULSE 106; RESP 15; TEMP 36.7; O2SAT 99
[2022-12-21 20:07] VITALS: BMI 25.4
--- NOTE | 2022-12-21 20:12 | EKG12_ITS ---
Test Reason : CP Blood Pressure : / mmHG Vent. Rate : 100 BPM Atrial Rate : 100 BPM P-R Int : 162 ms QRS Dur : 142 ms QT Int : 394 ms P-R-T Axes : 075 -43 152 degrees QTc Int : 508 ms Normal sinus rhythm Left axis deviation Left bundle branch block Abnormal ECG Confirmed by JOSSY PEARSON, SADIE ([id number]), editor managing director JENIFER WALLACE ([id number]) on 12/22/2022 2:44:43 PM Referred By: GIAN Confirmed By:SADIE FENTON MD
--- NOTE | 2022-12-21 20:13 | EDS_ITS ---
HPI History of Present Illness Chief Complaint: Shortness of Breath Informant: patient and family Onset/Context/Timing Onset: Today Context: gradual and exertion Timing: Intermittent Current Severity: Mild Maximum Severity: Mild Worsened by: Nothing Relieved by: Nothing Associated Symptoms cough; Negative for fever or chills Chest Pain: Positive for None Narrative Narrative: 82-year-old female extensive past medical history currently being treated for C. difficile, history of anemia, CHF, CAD with a stent, diabetes and pacemaker. She has a cardiomyopathy with an EF of 25%. She is not on home O2. Recently was hospitalized and then placed in extended-care facility for several days but now she has been home. No leg pain or swelling. No hemoptysis. No melena. No chest pain. No fever. PE Risk Factors: Negative for Cancer, OCP + Smoking + > 35, Prior DVT or PE, Recent immobilization, Recent surgery or Recent travel Prior similar symptoms: Yes Recent Illness/Hospitalization: Yes PFSH PFSH Medical History Abdominal pain Abnormal results of thyroid function studies Anemia Anxiety and depression Atherosclerosis of coronary artery of [place] heart without angina pectoris Back pain Back pain due to injury Bladder disease Cardiology follow-up encounter Chronic back pain Chronic diarrhea Closed left hip fracture Compression fracture Dark stools Depression Diabetes Diarrhea Dietary restriction Essential hypertension [place] Fracture of left distal radius Frequent falls Gastroesophageal reflux disease History of CHF (congestive heart failure) History of echocardiogram History of hemorrhoids History of pulmonary embolus (PE) History of stress test Hyperlipidemia Hypertension Iron deficiency anemia Irritable bowel Ischemic cardiomyopathy Low back pain Lumbar compression fracture Lumbar spinal stenosis Memory deficit Myocardial infarct Non-smoker Nursing assistance required Orthopedic aftercare Osteoporosis Post-menopausal Pulmonary embolism Shortness of breath on exertion 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) Type II diabetes mellitus Vitamin D deficiency Wears dentures Wears glasses Wears hearing aid Home Medications nitroglycerin 0.4 mg sublingual tablet 0.4 mg sublingual Q5M PRN Cardiac/Chest Pain #25 tabs 12/23/21 [Rx Last Taken Unknown] blood sugar diagnostic 12/30/21 [History Last Taken Unknown] blood-glucose meter 12/30/21 [History Last Taken Unknown] isosorbide mononitrate 60 mg tablet,extended release 24 hr 60 mg PO DAILY heart #90 tabs 02/07/22 [Rx Last Taken Unknown] acetaminophen 500 mg tablet (Tylenol Extra Strength) 1,000 mg PO Q6H PRN Pain 02/21/22 [History Last Taken Unknown] aspirin 81 mg chewable tablet 81 mg PO DAILY@0800 Heart health 05/12/22 [History Last Taken Unknown] gabapentin 100 mg capsule 100 mg PO TIDCM Neuropathy 05/12/22 [History Last Taken Unknown] lidocaine 5 % topical patch 1 patch topical DAILY Pain 05/12/22 [History Last Taken Unknown] menthol 0.44 %-zinc oxide 20.6 % topical ointment (Calmoseptine) 1 applic topical TID Skin protection 05/12/22 [History Last Taken Unknown] nutrition tx glu intol,lac-free,soy-fiber 0.06 gram-1.2 kcal/mL liquid (Glucerna 1.2 Norman) 120 ml PO 4X/DAY Supplement 05/12/22 [History Last Taken Unknown] tramadol 50 mg tablet 50 mg PO Q6H PRN PRN Pain Score 4-10 3 days #12 tabs 05/28/22 [Rx Last Taken Unknown] lidocaine 4 % topical patch (Aspercreme (lidocaine)) 1 patch topical DAILY PRN Pain 06/11/22 [History Last Taken Unknown] lisinopril 40 mg tablet 40 mg PO DAILY 06/11/22 [History Last Taken Unknown] zinc oxide 20 % topical ointment 1 applic topical TID 06/11/22 [History Last Taken Unknown] cholecalciferol (vitamin D3) 1,250 mcg (50,000 unit) capsule 1,250 mcg PO .every other week 07/24/22 [History Last Taken Unknown] sertraline 100 mg tablet 100 mg PO DAILY 08/06/22 [History Last Taken Unknown] colestipol 1 gram tablet 1 g PO BID 60 days #120 tabs 09/04/22 [Rx Last Taken Unknown] Prolia 60 mg/mL subcutaneous syringe (denosumab) 60 mg subcut [id number] #1 mL 11/06/22 [Rx Last Taken Unknown] metformin 500 mg tablet 500 mg PO DAILY #30 tabs 11/06/22 [Rx Last Taken Unknown] methimazole 5 mg tablet 2.5 mg PO DAILY #15 tabs 11/06/22 [Rx Last Taken U nknown] amlodipine 5 mg tablet 5 mg PO DAILY blood pressure #90 tabs 11/18/22 [Rx Last Taken Unknown] furosemide 40 mg tablet (Lasix) 40 mg PO BID Fluid retention- take 4 to 6 hours apart #180 tabs 11/18/22 [Rx Last Taken Unknown] atenolol 50 mg tablet 50 mg PO DAILY 11/20/22 [History Last Taken Unknown] potassium chloride 20 mEq tablet,extended release 20 meq PO DAILY 11/20/22 [History Last Taken Unknown] cephalexin 500 mg capsule 500 mg PO Q8 #0 caps 11/21/22 [Rx Last Taken Unknown] vancomycin 125 mg capsule 125 mg PO Q6H #56 caps 12/12/22 [Rx Last Taken Unknown] Allergy/AdvReac Type Severity Reaction Status Date / Time latex Allergy Other Verified 12/21/22 20:02 Family History Father CVA (cerebral vascular accident) Mother Heart disease CAD (coronary artery disease) Sister CAD (coronary artery disease) Daughter CAD (coronary artery disease) Myocardial infarction Daughter Diabetes Surgical History H/O: hysterectomy History of back surgery History of cardiac catheterization History of carpal tunnel release History of coronary artery stent placement History of kyphoplasty History of permanent cardiac pacemaker placement (12/30/21) Hx of cholecystectomy Hx of knee surgery S/P hysterectomy Social History household members: none housing: house Smoking Status: Never smoker alcohol intake: never substance use type: does not use caffeine: No what type of physical activity do you participate in: none do you feel safe at home: Yes ROS ROS ED ROS Narrative Dyspnea. Diarrhea with C. difficile. Review of Systems ROS Unobtainable: Denies due to encephalopathy Constitutional Constitutional ED: Denies chills or fever(s) Eyes Eyes: Denies blurry vision ENT ENT ED: Denies ear pain Cardiovascular Cardiovascular: Denies chest pain or palpitations Respiratory/Chest Respiratory/Chest: Reports dyspnea; Denies cough Gastrointestinal Gastrointestinal: Reports diarrhea; Denies abdominal pain, constipation, melena, nausea or vomiting Genitourinary Genitourinary ED: Denies dysuria or hematuria Musculoskeletal Musculoskeletal: Denies arthralgias Integumentary Denies abscess Neurologic Neurologic: Denies headache(s) Psychiatric Psychiatric: Denies anxiety Endocrine Endocrinology: Denies cold intolerance Hematologic/Lymphatic Hematologic/Lymphatic: Denies easy bleeding Allergic/Immunologic Allergic/Immunologic ED: Denies mouth swelling or tongue swelling EXAM Physical Exam Narrative Exam Narrative: 82-year-old female no acute distress. Vital signs are stable. Afebrile. Does not look septic or toxic. She is pale family states that she is very fair skin. Pulse ox is 99% on room air no hypoxia. H EENT exam unremarkable. Moist with membranes. Neck nontender no JVD. Lungs clear to auscultation bilaterally. Heart tachycardic rate of 105 no murmur. Chest were nontender. Abdomen soft nontender. Normal bowel sounds no peritoneal signs. Moving all 4 extremities. Calves are nontender without edema or cords. Neurologically she is awake and alert. Answering questions following commands. Very benign exam. Const Vital Signs: 12/21/22 19:58 12/21/22 20:11 12/21/22 20:36 Temperature 98.1 F Temperature Source Temporal Pulse Rate 106 H Respiratory Rate 15 Respiratory Effort Short of Breath Blood Pressure 122/49 H Blood Pressure Mean 73 Pulse Ox 99 Oxygen Delivery Method Room Air Room Air Positive well nourished and well developed; Negative for obese, cachectic, c ontractures or unkempt General Appearance ED: well developed, NAD and pallor; Negative for unkempt, cachectic or contractures Nutritional Appearance: Negative for cachectic or obese HEENT Reports moist mucous membranes; Denies dry mucous membranes Negative for atraumatic, trauma or tenderness Mouth ED: No dry mucous membranes Mouth: No dry mucous membranes Eyes PERRL and EOMs intact bilaterally General Eye ED: Yes pale conjunctiva; Negative for scleral icterus Neck no lymphadenopathy, supple, no meningeal signs and no JVD General: Negative for tenderness Lymph Lymphatic: Negative for other Resp normal respiratory effort and clear to auscultation bilaterally Effort and Inspection: Negative for pain with movement Auscultation: Negative for rales, rhonchi or wheezes Cardio regular rhythm, S1 normal heart sound, S2 normal heart sound and no murmurs; Negative for regular rate Rate: tachycardic GI non-tender, non-distended and no masses Inspection: Negative for other Auscultation: normoactive bowel sounds Palpation: soft; Negative for tender or guarding Back/Spine no CVA tenderness General Back: Negative for CVA tenderness Extremity normal to inspection General Extremety ED: Negative for edema or tenderness General Extremity: Negative for edema Neuro oriented x3 and CN's II-XII intact bilaterally Sensorium / Orientation: alert, oriented to person, oriented to place and oriented to time Speech: speech normal Motor Exam: strength 5/5 throughout Psych mental status grossly normal Appearance: Negative for unkempt Attitude: No agitated Mood & Affect: Negative for depressed, anxious or tearful Thought Process: normal thought process Skin no wounds General Skin Exam: pallor; Negative for jaundice Lesions: no lesions Rashes: no rashes Trauma: Negative for abrasion MDM MDM MDM Narrative Medical decision making narrative: 82-year-old female complaining of dyspnea. Benign exam. Pulse ox 9 9% on room air. No hypoxia. She does not look septic or toxic. Does not look significant dehydrated. No signs of PE. She undergo cardiac work-up. She does have a history of CHF. Rule out CHF versus pneumonia versus other cardiac etiology. Repeat exam she is resting comfortably in bed at 9:50 PM. She is off oxygen and her pulse ox is 99%. Her heart rates in the 90s. Her pressure stable. Discussed all test results with her and her family. She has a lives alone and she has been doing well at home according to her and the family. We are going to ambulate her and see how she does walking. Patient did well walking. Off oxygen she did not have any significant shortness of breath. Her pulse ox stayed in the mid to high 90s. She and family are comfortable with her being discharged home. They will follow-up with her primary care physician and her named account executive. History & Record Review Additional record(s) reviewed:: Prior inpatient record, Prior outpatient record, Prior ED visit and Prior labs Lab Data Attestation: I reviewed the patient's lab results. Lab results narrative: CBC shows a white count 13.9. H&H of 8.1 and 27.3. Platelets 193. Electrolytes show a gap of 9 normal BUN of 14 creatinine 0.8. Glucose 261. Troponins elevated at 2213. Reviewed her old labs she is a little bit more anemic today at 8.1 she typically is running around nine . Her troponins have been elevated and much higher than this in the past even in the 4000 range. BNP was 1306. Chest x-ray shows no acute abnormality. No failure. No effusions. No infiltrate. Left-sided pacemaker. Labs: Laboratory Results - last 24 hr 12/21/22 12/21/22 12/21/22 20:32 20:32 20:32 WBC 13.9 H RBC 3.43 L Hgb 8.1 L Hct 27.3 L MCV 79.6 L MCH 23.6 L MCHC 29.7 L RDW Std Deviation 47.8 H RDW Coeff of Aubrie 16.6 H Plt Count 193 MPV 11.4 Immature Gran % (Auto) 0.400 Neut % (Auto) 81.8 H Lymph % (Auto) 6.7 L [place] % (Auto) 10.9 H Eos % (Auto) 0.1 Baso % (Auto) 0.1 Absolute Neuts (auto) 11.4 H Absolute Lymphs (auto) 0.93 Nucleated RBC % 0 Differential Comment SCANNED Diff Path Review May foll Sodium 137 Potassium 4.3 Chloride 105 Carbon Dioxide 23.0 Anion Gap 9 BUN 14 Creatinine 0.88 Estim Creat Clear Calc 44.51 Est GFR (MDRD) Af Amer 79 Est GFR (MDRD) Non-Af 65 BUN/Creatinine Ratio 15.9 Glucose 261 H Calcium 8.3 L Troponin I High Sens 2213 H* B-Natriuretic Peptide 1306.9 H Radiography Chest X-Ray - ED: 1 View, Read by ED Physician, Read by Radiologist, Heart, Lungs, Mediastinum, Bony Structures, No Acute Disease and Chronic Changes Diagnostic Testing: Clinical Impression(s) from Imaging Studies Chest X-Ray 12/21/22 20:35 IMPRESSION: There are no acute findings. Electronically Signed: Raghav Omalley MD at 20:55 EST Reading Location ID and State: [facility] / [place] , Service support , Rhythm Strip Rhythm Strip: paced Rate: 100 Ectopy: None EKG Initial EKG: Attestation: I personally reviewed and interpreted this EKG as follows: Interpretation: Paced Comments: Paced rhythm rate of 100. Left bundle branch block. No acute signs of NM or ischemia no significant change from an EKG done on 11/19/2022. Prior EKG tracings: available for review Prior: Unchanged Discharge Plan Triage Chief Complaint: Shortness of Breath ED Provider: Grzegorz Last Dx/Rx/DC Orders Clinical Impression: Acute dyspnea, CHF (congestive heart failure), Cardiomyopathy, Chronic anemia, History of diabetes mellitus Instructions: Anemia, ED Heart Failure, Congestive (CHF), ED Dyspnea Prescriptions: No Action acetaminophen [Tylenol Extra Strength] 500 mg tablet 1,000 mg PO Q6H PRN (Reason: Pain) sertraline 100 mg tablet 100 mg PO DAILY lidocaine [Aspercreme (lidocaine)] 4 % adhesive patch,medicated 1 patch topical DAILY PRN (Reason: Pain) lisinopril 40 mg tablet 40 mg PO DAILY zinc oxide 20 % ointment 1 applic topical TID cholecalciferol (vitamin D3) 1,250 mcg (50,000 unit) capsule 1,250 mcg PO .every other week metformin 500 mg tablet 500 mg PO DAILY Qty: 30 6RF methimazole 5 mg tablet 2.5 mg PO DAILY Qty: 15 6RF Prolia 60 mg/mL syringe 60 mg subcut [id number] Qty: 1 1RF colestipol 1 gram tablet 1 g PO BID 60 Days Qty: 120 1RF (DME) blood sugar diagnostic Strip See Rx Instructions .ROUTE .MEDSUPPLY Rx Instructions: test three times a day (DME) blood-glucose meter Kit See Rx Instructions .ROUTE .MEDSUPPLY Rx Instructions: As directed lidocaine 5 % adhesive patch,medicated 1 patch topical DAILY Protocol: *Topical Application Instructions APPLICATION INSTRUCTIONS: back aspirin 81 mg tablet,chewable 81 mg PO DAILY@0800 gabapentin 100 mg capsule 100 mg PO TIDCM Glucerna 1.2 Norman 0.06-1.2 gram-kcal/mL liquid 120 ml PO 4X/DAY menthol-zinc oxide [Calmoseptine] 0.44-20.6 % ointment 1 applic topical TID Protocol: *Topical Application Instructions APPLICATION INSTRUCTIONS: apply to groin and perineal tid tramadol 50 mg Tablet 50 mg PO Q6H PRN PRN (Reason: Pain Score 4-10) 3 Days Qty: 12 0RF atenolol 50 mg tablet 50 mg PO DAILY Rx Instructions: Take 1 tablet by mouth once daily for blood pressure potassium chloride 20 mEq tablet extended release 20 meq PO DAILY Rx Instructions: Take 1 tablet by mouth once daily cephalexin 500 mg Capsule 500 mg PO Q8 Qty: 0 0RF nitroglycerin 0.4 mg tablet, sublingual 0.4 mg sublingual Q5M PRN (Reason: Cardiac/Chest Pain) Qty: 25 3RF isosorbide mononitrate 60 mg tablet extended release 24 hr 60 mg PO DAILY Qty: 90 3RF Rx Instructions: Take 1 tablet by mouth once daily amlodipine 5 mg tablet 5 mg PO DAILY Qty: 90 3RF Hold Instructions: HYPOTENSION furosemide [Lasix] 40 mg tablet 40 mg PO BID Qty: 180 3RF vancomycin 125 mg capsule 125 mg PO Q6H Qty: 56 0RF Rx Instructions: \ Primary Care Provider: Mary Azevedo Referrals: Mary Azevedo MD [Primary Care Provider] - As soon as possible Guicho Billy MD [Med Staff - Active Staff] - As soon as possible Activity Restrictions/Additional Instructions: Call and follow-up with Dr. Azevedo and Dr. Guicho Billy as well as soon as possible. A lot of this is chronic from your congestive heart failure, poor contractility of your heart and anemia. Return Emergency Department if feeling worse. Disposition Disposition: Home, Self Care
--- NOTE | 2022-12-21 20:35 | RAD_ITS ---
STUDY: XR Chest 1 View 12/21/2022 8:35 PM REASON FOR EXAM: Female, 82 years old. CHEST PAIN chest pain COMPARISON: 05/11/2022 TECHNIQUE: XR Chest 1 View FINDINGS: There is no demonstrated pleural abnormality. There is a left sided pacemaker batterypack. Kyphoplasty changes. Normal heart size. Normal mediastinum. Normal twila. Prominent appearing increased interstitial lung markings. Normal visualized pulmonary arteries. There is atherosclerotic calcification of the aortic arch with tortuosity. There are diffuse degenerative changes of the visualized thoracic spine. There is degenerative osteoarthritis of the bilateral shoulders. There is no demonstrated abnormality of the visualized soft tissue structures of the upper abdomen. RAD/Chest 1 View (Portable) IMPRESSION: There are no acute findings. Electronically Signed: Raghav Omalley MD at 20:55 EST ,
[2022-12-21 20:42] LABS: Absolute Lymphocyte Count 0.93 X10^3/uL (0.83-4.51); Absolute Neutrophil Count 11.4 X10^3/uL (2.0-7.7); Basophil# 0.02 X10^3/uL; Basophil% 0.1 % (0-1); Eosinophil# 0.01 X10^3/uL; Eosinophils% 0.1 % (0-5); Hematocrit 27.3 % (37-47); Hemoglobin 8.1 g/dL (12.0-15.0); Lymphocyte # 0.93 X10^3/ul (0.83-4.51); Lymphocyte % 6.7 % (19-41); Mean Corp Hgb Conc 29.7 g/dL (32-36); Mean Corpuscular Hgb 23.6 pg (27.0-32.0); Mean Corpuscular Volume 79.6 fL (81-99); Mean Platelet Vol. 11.4 fl (6.2-12.0); Monocyte# 1.52 X10^3/uL; Monocyte% 10.9 % (0-10); NRBC Flagged by Analyzer 0 % (0-5); Neutrophil # 11.35 X10^3/uL (2.7-7.7); Neutrophil % 81.8 % (47-70); POSITIVE DIFFERENTIAL YES; Platelet Count 193 K/mm3 (150-450); RBC Distribution Width CV 16.6 % (11.6-14.6); RBC Distribution Width SD 47.8 fl (35.1-43.9); Red Blood Count 3.43 M/mm3 (4.2-5.4); White Blood Count 13.9 K/mm3 (4.4-11.0)
[2022-12-21 21:15] LABS: Anion Gap 9 (5-15); BUN 14 mg/dL (7-18); BUN/Creat Ratio 15.9 RATIO (10-20); Calcium,Total 8.3 mg/dL (8.5-10.1); Chloride 105 mmol/L (98-107); Creatinine, Serum 0.88 mg/dL (0.55-1.02); EST Glomerular Filtration Rate 65 mL/min (>60); Est Glom Filt Rate - Afr Amer 79 mL/min (>60); Estimated Creatinine Clearance 44.51 ml/min; Glucose 261 mg/dL (74-106); Potassium 4.3 mmol/L (3.5-5.1); Sodium Level 137 mmol/L (136-145); Troponin-I HS 2213 pg/mL (3.0-54.0)
[2022-12-21 21:29] LABS: Differential Indicated SCAN CRITERIA MET
[2022-12-21 21:33] LABS: Differential Comment SCANNED
[2022-12-21 21:40] VITALS: PULSE 96; RESP 36; O2SAT 98
[2022-12-21 21:54] LABS: BNP,B-Type NATRIURETIC PEPTIDE 1306.9 pg/mL (0-100)
[2022-12-22 13:19] LABS: Pathologist Review Reviewed
== END 2022-12-21 22:17 | disposition home or self-care (01) ==
PROVIDERS: Emergency Provider Emergency Medicine; PCP Internal Medicine; Visit Provider Emergency Medicine
DX: R06.02 Shortness of breath (principal); I11.0 Hypertensive heart disease with heart failure; I50.9 Heart failure, unspecified; E11.9 Type 2 diabetes mellitus without complications; D64.9 Anemia, unspecified; Z60.2 Problems related to living alone; E78.5 Hyperlipidemia, unspecified; I25.10 Atherosclerotic heart disease of native coronary artery without angina pectoris; Z95.5 Presence of coronary angioplasty implant and graft; Z95.0 Presence of cardiac pacemaker
CPT/HCPCS: 71045; 80048; 83880; 84484; 85025; 93005; 99283; A4216

== ENCOUNTER 2022-12-31 09:44 | Inpatient (IN) | payer MEDICARE, SELFPAY ==
[2022-12-31] VITALS (20 sets, daily range): BP systolic 107–153; BP diastolic 10–104; PULSE 54–142; RESP 14–31; TEMP 35.8–36.6; O2SAT 91–100; BMI 26.6; BMI 25.2
--- NOTE | 2022-12-31 09:42 | EKG12_ITS ---
Test Reason : SOB Blood Pressure : / mmHG Vent. Rate : 124 BPM Atrial Rate : 124 BPM P-R Int : 144 ms QRS Dur : 138 ms QT Int : 348 ms P-R-T Axes : 023 -35 124 degrees QTc Int : 499 ms Sinus tachycardia with Fusion complexes Left axis deviation Left bundle branch block Abnormal ECG Confirmed by TAYLOR PEARSON, DUNCAN ([id number]), newspaper photo editor JENIFER WALLACE ([id number]) on 01/02/2023 6:57:52 AM Referred By: Confirmed By:KAYLA VAZQUEZ MD
--- NOTE | 2022-12-31 09:56 | EX.ED.DYSGE1 ---
HPI History of Present Illness Chief Complaint: Shortness of Breath Informant: patient and EMS Onset/Context/Timing Onset: Today (Overnight) Narrative Narrative: Patient presents via EMS secondary to shortness of breath. Patient states she developed shortness of breath overnight. When she arrives with EMS she is on CPAP. EMS notes that they had a difficult time getting a pulse ox reading. They believe she was initially 86% on room air. #Not improved with a nonrebreather so she was placed on CPAP. They states she does not seem to be more comfortable with her breathing now. We continue to have poor prefers into her fingers and difficulty getting a good pulse ox reading. That being said, patient is sitting upright and alert. She does not appear to be in distress. She is answering questions appropriately. She reports some chest pain that she points to the left axilla. She denies recent cough or fever. [facility] Medical History Abdominal pain Abnormal results of thyroid function studies Anemia Anxiety and depression Atherosclerosis of coronary artery of [place] heart without angina pectoris Back pain Back pain due to injury Bladder disease Cardiology follow-up encounter Chronic back pain Chronic diarrhea Closed left hip fracture Compression fracture Dark stools Depression Diabetes Diarrhea Dietary restriction Essential hypertension [place] Fracture of left distal radius Frequent falls Gastroesophageal reflux disease History of CHF (congestive heart failure) History of echocardiogram History of hemorrhoids History of pulmonary embolus (PE) History of stress test Hyperlipidemia Hypertension Iron deficiency anemia Irritable bowel Ischemic cardiomyopathy Low back pain Lumbar compression fracture Lumbar spinal stenosis Memory deficit Myocardial infarct Non-smoker Nursing assistance required Orthopedic aftercare Osteoporosis Post-menopausal Pulmonary embolism Shortness of breath on exertion 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) Type II diabetes mellitus Vitamin D deficiency Wears dentures Wears glasses Wears hearing aid Home Medications nitroglycerin 0.4 mg sublingual tablet 0.4 mg sublingual Q5M PRN Cardiac/Chest Pain #25 tabs 12/23/21 [Rx Last Taken Unknown] blood sugar diagnostic 12/30/21 [History Last Taken Unknown] blood-glucose meter 12/30/21 [History Last Taken Unknown] isosorbide mononitrate 60 mg tablet,extended release 24 hr 60 mg PO DAILY heart #90 tabs 02/07/22 [Rx Last Taken Unknown] acetaminophen 500 mg tablet (Tylenol Extra Strength) 1,000 mg PO Q6H PRN Pain 02/21/22 [History Last Taken Unknown] aspirin 81 mg chewable tablet 81 mg PO DAILY@0800 Heart health 05/12/22 [History Last Taken Unknown] gabapentin 100 mg capsule 100 mg PO TIDCM Neuropathy 05/12/22 [History Last Taken Unknown] lidocaine 5 % topical patch 1 patch topical DAILY Pain 05/12/22 [History Last Taken Unknown] menthol 0.44 %-zinc oxide 20.6 % topical ointment (Calmoseptine) 1 applic topical TID Skin protection 05/12/22 [History Last Taken Unknown] nutrition tx glu intol,lac-free,soy-fiber 0.06 gram-1.2 kcal/mL liquid (Glucerna 1.2 [place]) 120 ml PO 4X/DAY Supplement 05/12/22 [History Last Taken Unknown] tramadol 50 mg tablet 50 mg PO Q6H PRN PRN Pain Score 4-10 3 days #12 tabs 05/28/22 [Rx Last Taken Unknown] lidocaine 4 % topical patch (Aspercreme (lidocaine)) 1 patch topical DAILY PRN Pain 06/11/22 [History Last Taken Unknown] lisinopril 40 mg tablet 40 mg PO DAILY 06/11/22 [History Last Taken Unknown] zinc oxide 20 % topical ointment 1 applic topical TID 06/11/22 [History Last Taken Unknown] cholecalciferol (vitamin D3) 1,250 mcg (50,000 unit) capsule 1,250 mcg PO .every other week 07/24/22 [History Last Taken Unknown] sertraline 100 mg tablet 100 mg PO DAILY 08/06/22 [History Last Taken Unknown] colestipol 1 gram tablet 1 g PO BID 60 days #120 tabs 09/04/22 [Rx Last Taken Unknown] Prolia 60 mg/mL subcutaneous syringe (denosumab) 60 mg subcut [id number] #1 mL 11/06/22 [Rx Last Taken Unknown] metformin 500 mg tablet 500 mg PO DAILY #30 tabs 11/06/22 [Rx Last Taken Unknown] methimazole 5 mg tablet 2.5 mg PO DAILY #15 tabs 11/06/22 [Rx Last Taken Unknown] amlodipine 5 mg tablet 5 mg PO DAILY blood pressure #90 tabs 11/18/22 [Rx Last Taken Unknown] furosemide 40 mg tablet (Lasix) 40 mg PO BID Fluid retention- take 4 to 6 hours apart #180 tabs 11/18/22 [Rx Last Taken Unknown] atenolol 50 mg tablet 50 mg PO DAILY 11/20/22 [History Last Taken Unknown] potassium chloride 20 mEq tablet,extended release 20 meq PO DAILY 11/20/22 [History Last Taken Unknown] cephalexin 500 mg capsule 500 mg PO Q8 #0 caps 11/21/22 [Rx Last Taken Unknown] vancomycin 125 mg capsule 125 mg PO Q6H #56 caps 12/12/22 [Rx Last Taken Unknown] Allergy/AdvReac Type Severity Reaction Status Date / Time latex Allergy Other Verified 12/21/22 20:02 Family History Father CVA (cerebral vascular accident) Mother Heart disease CAD (coronary artery disease) Sister CAD (coronary artery disease) Daughter CAD (coronary artery disease) Myocardial infarction Daughter Diabetes Surgical History H/O: hysterectomy History of back surgery History of cardiac catheterization History of carpal tunnel release History of coronary artery stent placement History of kyphoplasty History of permanent cardiac pacemaker placement (12/30/21) Hx of cholecystectomy Hx of knee surgery S/P hysterectomy Social History household members: none housing: house Smoking Status: Never smoker alcohol intake: never substance use type: does not use caffeine: No what type of physical activity do you participate in: none do you feel safe at home: Yes ROS ROS ED Constitutional Constitutional ED: Denies chills or fever(s) Eyes Eyes: Denies discharge from eye(s) ENT ENT ED: Denies discharge from eye(s), rhinorrhea or sore throat Cardiovascular Cardiovascular: Reports chest pain Respiratory/Chest Respiratory/Chest: Reports dyspnea; Denies cough Gastrointestinal Gastrointestinal: Denies abdominal pain, nausea or vomiting Genitourinary Genitourinary ED: Denies dysuria Musculoskeletal Musculoskeletal: Reports extremity pain; Denies back pain Integumentary Denies Abrasions or rash Neurologic Neurologic: Denies headache(s) or weakness Psychiatric Psychiatric: Denies anxiety or depression Allergic/Immunologic Allergic/Immunologic ED: Denies lip swelling or urticaria EXAM Physical Exam Const Vital Signs: 12/31/22 09:42 12/31/22 09:46 12/31/22 09:49 Temperature 96.5 F L 96.5 F L Temperature Source Temporal Temporal Pulse Rate 54 L 101 H Respiratory Rate 22 H 20 H Respiratory Effort Short of Breath Labored Accessory Muscle Use Respiratory Depth Deep Respiratory Pattern Tachypnea Blood Pressure 138/103 H 153/104 H Blood Pressure Mean 114 120 Pulse Ox 93 93 Oxygen Delivery Method CPAP CPAP CPAP Oxygen Flow Rate (L/min) Fraction of Inspired Oxygen (FIO2) 12/31/22 09:56 12/31/22 09:50 12/31/22 10:17 Temperature Temperature Source Pulse Rate 114 H 108 H Respiratory Rate 20 H 22 H Respiratory Effort Respiratory Depth Respiratory Pattern Tachypnea Blood Pressure 153/104 H Blood Pressure Mean 120 Pulse Ox 91 93 96 Oxygen Delivery Method CPAP Nasal Cannula Oxygen Flow Rate (L/min) Fraction of Inspired Oxygen (FIO2) 40 2 12/31/22 10:39 12/31/22 10:44 12/31/22 11:45 Temperature 97.4 F L 97.2 F L Temperature Source Temporal Temporal Pulse Rate 103 H 109 H 117 H Respiratory Rate 20 H 22 H 20 H Respiratory Effort Respiratory Depth Respiratory Pattern Blood Pressure 126/102 H 126/10 H 107/63 Blood Pressure Mean 110 48 77 Pulse Ox 100 92 100 Oxygen Delivery Method Nasal Cannula Nasal Cannula Nasal Cannula Oxygen Flow Rate (L/min) 2 2 3 Fraction of Inspired Oxygen (FIO2) 12/31/22 11:45 Temperature Temperature Source Pulse Rate 117 H Respiratory Rate 20 H Respiratory Effort Respiratory Depth Respiratory Pattern Blood Pressure 107/63 Blood Pressure Mean 77 Pulse Ox 100 Oxygen Delivery Method Nasal Cannula Oxygen Flow Rate (L/min) 3 Fraction of Inspired Oxygen (FIO2) Positive well nourished and well developed General Appearance ED: well developed HEENT Reports normocephalic and head/scalp atraumatic Eyes PERRL and EOMs intact bilaterally Neck supple Chest Wall inspection of chest normal and palpation of chest normal Resp normal respiratory effort Resp Narrative: Coarse breath sounds bilaterally. Cardio regular rhythm Rate: tachycardic GI non-tender Palpation: soft Extremity normal to inspection Neuro no sensory deficits noted Neuro Narrative: Patient is alert and answering questions appropriately. No focal neurodeficits. Sensorium / Orientation: alert Motor Exam: strength 5/5 throughout Psych mental status grossly normal Skin no rashes or lesions noted MDM MDM MDM Narrative Medical decision making narrative: Patient placed on cardiac technician. BiPAP placed on arrival, transition from CPAP that she had been wearing with EMS. ABG obtained due to difficulty obtaining good waveform and pulse ox. EKG obtained to evaluate for cardiac arrhythmia/ischemia. Chest x-ray obtained to evaluate for acute lung pathology, cardiac size, or mediastinal abnormality. Labwork obtained to evaluate for leukocytosis, anemia, and electrolyte derangement. Troponin obtained to evaluate for cardiac ischemia. D-dimer obtained to evaluate for possible blood clot. History & Record Review Discussion w/independent historian: EMS personnel, Patient and Family Additional record(s) reviewed:: Prior inpatient record, Prior outpatient record and Prior ED visit Lab Data Attestation: I reviewed the patient's lab results. Labs: Laboratory Results - last 24 hr 12/31/22 12/31/22 12/31/22 09:50 09:50 09:50 WBC 12.0 H RBC 3.60 L Hgb 8.0 L Hct 29.6 L MCV 82.2 MCH 22.2 L MCHC 27.0 L RDW Std Deviation 49.5 H RDW Coeff of Aubrie 16.5 H Plt Count 321 MPV 11.7 Immature Gran % (Auto) 0.700 Neut % (Auto) 74.3 H Lymph % (Auto) 15.5 L Jerome % (Auto) 5.7 Eos % (Auto) 3.4 Baso % (Auto) 0.4 Absolute Neuts (auto) 8.9 H Absolute Lymphs (auto) 1.86 Nucleated RBC % 0 D-Dimer Quant (PE/DVT) 1.15 H* Sodium 141 Potassium 4.4 Chloride 108 H Carbon Dioxide 26.0 Anion Gap 7 BUN 17 Creatinine 0.72 Estim Creat Clear Calc 41.01 Est GFR (MDRD) Af Amer 99 Est GFR (MDRD) Non-Af 82 BUN/Creatinine Ratio 23.5 H Glucose 228 H Calcium 9.7 Troponin I High Sens 188 H* B-Natriuretic Peptide 12/31/22 09:50 WBC RBC Hgb Hct MCV MCH MCHC RDW Std Deviation RDW Coeff of Aubrie Plt Count MPV Immature Gran % (Auto) Neut % (Auto) Lymph % (Auto) Jerome % (Auto) Eos % (Auto) Baso % (Auto) Absolute Neuts (auto) Absolute Lymphs (auto) Nucleated RBC % D-Dimer Quant (PE/DVT) Sodium Potassium Chloride Carbon Dioxide Anion Gap BUN Creatinine Estim Creat Clear Calc Est GFR (MDRD) Af Amer Est GFR (MDRD) Non-Af BUN/Creatinine Ratio Glucose Calcium Troponin I High Sens B-Natriuretic Peptide 1014.0 H ABG Data ABG results: ABG 12/31/22 10:07 Specimen Type ART Sample Site R Brach pH 7.45 Bicarbonate Actual 23.9 Total CO2 25 Base Excess 0 O2 Saturation 100 H O2 % 40 ABG pCO2 34.5 L ABG pO2 171 H Harshad Test Positive Respiration Rate 14 O2 Delivery Device BiPAP Radiography Chest X-Ray - ED: 1 View, Read by ED Physician and - (Chronic changes with mild fluid overload. Fluid noted in the fissure on the right.) Diagnostic Testing: Clinical Impression(s) from Imaging Studies Chest X-Ray 12/31/22 10:20 IMPRESSION: Chronic changes, no superimposed acute pulmonary process Electronically Signed: Zachary Blanton MD at 10:39 EDT , Chest CTA 12/31/22 10:39 IMPRESSION: Mild pulmonary edema with bilateral pleural effusions. No evidence of pulmonary embolism. Thoracolumbar compression fractures with kyphoplasty as above. Electronically Signed: Shelbi Hodge MD at 11:53 EDT , EKG Initial EKG: Attestation: I personally reviewed and interpreted this EKG as follows: Interpretation: Sinus Tachycardia (Sinus tach at 111 with left bundle branch block. Similar morphology to prior EKG.) Follow-up EKG: Attestation: I personally reviewed and interpreted this EKG as follows: Interpretation: Sinus Tachycardia (Sinus tach at 124 with left bundle branch block. No new ischemic change noted.) Differential Diagnosis Chest pain/SOB: pulmonary embolism Reason(s) PE less likely: Positive for Other (No PE noted on CTA chest.), ACS ACS: Positive for EKG without ischemia and other (Troponin elevated, however significantly lower than prior values. Patient has a chronicly elevated troponin.) and pneumonia Reason(s) pneumonia less likely: Positive for no infiltrate on CXR Management Discussion w/another healthcare provider: Hospitalist Treatment and Re-Evaluation :: ABG revealed a pulse ox in the high 90s with no significant derangements. She was taken off of BiPAP and placed on 2 L nasal cannula. CBC reveals a white count of 12.0 with a hemoglobin of 8. Her hemoglobin is stable when compared to prior values. Troponin is elevated at 188, however prior values were between 2000 and 4000. Earlier this month she was discharged to home with a troponin of 2000 given she has chronic elevation in her troponin. Her chemistry studies are otherwise unremarkable. Her BNP is 1014. Her D-dimer is elevated at 1.15. Chest x-ray per my interpretation reveals mild fluid overload with fluid in the fissure. CTA of the chest is performed. They do note mild pulmonary edema. No evidence of PE. Notified by nursing staff that the patient is complaining of increased shortness of breath. While her oxygen saturations are normal, she is placed back on BiPAP therapy for pressure support. Heart rate is tachycardic in the 130s and EKG is repeated. She is given a dose of metoprolol as she did not have her morning medications. She is also given 40 mg of IV Lasix. Discharge Plan Dx/Rx/DC Orders Clinical Impression: CHF (congestive heart failure), Elevated troponin Disposition Disposition: Acute Care [facility]
[2022-12-31 10:02] LABS: Absolute Lymphocyte Count 1.86 X10^3/uL (0.83-4.51); Absolute Neutrophil Count 8.9 X10^3/uL (2.0-7.7); Basophil# 0.05 X10^3/uL; Basophil% 0.4 % (0-1); Eosinophil# 0.41 X10^3/uL; Eosinophils% 3.4 % (0-5); Hematocrit 29.6 % (37-47); Lymphocyte # 1.86 X10^3/ul (0.83-4.51); Lymphocyte % 15.5 % (19-41); Mean Corpuscular Hgb 22.2 pg (27.0-32.0); Mean Corpuscular Volume 82.2 fL (81-99); Mean Platelet Vol. 11.7 fl (6.2-12.0); Monocyte# 0.69 X10^3/uL; Monocyte% 5.7 % (0-10); NRBC Flagged by Analyzer 0 % (0-5); Neutrophil # 8.92 X10^3/uL (2.7-7.7); Neutrophil % 74.3 % (47-70); Platelet Count 321 K/mm3 (150-450); RBC Distribution Width CV 16.5 % (11.6-14.6); RBC Distribution Width SD 49.5 fl (35.1-43.9)
[2022-12-31 10:14] LABS: D-Dimer Quantitative (DVT/PE) 1.15 FEU/ug/m (0.27-0.49)
[2022-12-31 10:16] LABS: Allen Test Positive; Base Excess 0 mmol/L (-2 to +2); Bicarbonate 23.9 mmol/L (22-26); Blood Gas Specimen Type ART; FI02 40; O2 Delivery Device BiPAP; PO2 171 mmHG (75-100); RR 14; SITE R Brach; SO2 100 % (95-99); Total Carbon Dioxide 25 mmol/L; pCO2 34.5 mmHg (35-45); pH 7.45 (7.35-7.45)
--- NOTE | 2022-12-31 10:20 | RAD_ITS ---
STUDY: X-RAY CHEST REASON FOR EXAM: Female, 82 years old. Shortness of breath and cough TECHNIQUE: Single AP portable view of the chest. COMPARISON: 12/21/2022 FINDINGS: EKG leads overlie the chest. Stable appearance of a left subclavian pacemaker Lungs are expanded with chronic interstitial changes, no superimposed acute pulmonary process. Normal size heart. Normal mediastinum and twila. Normal visualized pulmonary arteries. There is atherosclerotic calcification of the aortic arch with tortuosity. There are diffuse degenerative changes of the visualized thoracic spine. Normal visualized ribs, clavicles, and shoulders. There is no demonstrated abnormality of the visualized soft tissue structures of the upper abdomen. RAD/Chest 1 View (Portable) IMPRESSION: Chronic changes, no superimposed acute pulmonary process Electronically Signed: Zachary Blanton MD at 10:39 EDT ,
[2022-12-31 10:34] LABS: Anion Gap 7 (5-15); BUN 17 mg/dL (7-18); BUN/Creat Ratio 23.5 RATIO (10-20); Calcium,Total 9.7 mg/dL (8.5-10.1); Chloride 108 mmol/L (98-107); Creatinine, Serum 0.72 mg/dL (0.55-1.02); EST Glomerular Filtration Rate 82 mL/min (>60); Est Glom Filt Rate - Afr Amer 99 mL/min (>60); Estimated Creatinine Clearance 41.01 ml/min; Glucose 228 mg/dL (74-106); Potassium 4.4 mmol/L (3.5-5.1); Sodium Level 141 mmol/L (136-145); Troponin-I HS (w/2H Reflex) 188 pg/mL (3.0-54.0)
--- NOTE | 2022-12-31 10:39 | CT_ITS ---
HISTORY: dyspnea, elevated d-dimer. TECHNIQUE: CT angiogram of the chest was performed after the intravenous administration of 75 mL Isovue-370. Post-processing of the angiographic images was performed with multiplanar reformation and 3D reconstruction. Individualized dose optimization techniques were used for this CT. 1125 images. COMPARISON: XR same day, CTA 12/28/2021. FINDINGS: CENTRAL AIRWAYS: Patent. LUNGS: Diffuse septal thickening with groundglass opacities and mild lower lobe atelectasis. PLEURA: Mild bilateral pleural effusions. HEART/PERICARDIUM: Cardiomegaly with pacemaker. No pericardial effusion. PULMONARY ARTERIES: No filling defect. AORTA/VESSELS: No thoracic aortic aneurysm or dissection flap. Tortuous aorta with calcified plaque. MEDIASTINUM/LIANNE: Scattered small lymph nodes. Multinodular thyroid. OSSEOUS STRUCTURES: Subacute-chronic T11 compression fracture. Chronic T12 compression fracture with vertebroplasty. Chronic L1 compression fracture also with vertebroplasty, new from prior. UPPER ABDOMEN: Unremarkable. CT/CTA Chest W/WO Contrast IMPRESSION: Mild pulmonary edema with bilateral pleural effusions. No evidence of pulmonary embolism. Thoracolumbar compression fractures with kyphoplasty as above. Electronically Signed: Shelbi Hodge MD at 11:53 EDT ,
[2022-12-31 11:56] LABS: Reflex Troponin-HS? (from REC) Y
[2022-12-31] MEDS: Furosemide 40 MG/4 ML Vial IV (12:02)
--- NOTE | 2022-12-31 12:03 | EKG12_ITS ---
Test Reason : SOB Blood Pressure : / mmHG Vent. Rate : 111 BPM Atrial Rate : 111 BPM P-R Int : 154 ms QRS Dur : 140 ms QT Int : 376 ms P-R-T Axes : 044 -34 133 degrees QTc Int : 511 ms Sinus tachycardia Left axis deviation Left bundle branch block Abnormal ECG Confirmed by TAYLOR PEARSON, DUNCAN ([id number]), city editor JENIFER WALLACE ([id number]) on 01/02/2023 6:58:04 AM Referred By: Confirmed By:KAYLA VAZQUEZ MD
[2022-12-31] MEDS: Metoprolol Tartrate 5 MG/5 ML Vial IV (12:08)
--- NOTE | 2022-12-31 12:15 | ED.RN ---
PATIENT'S SON AND DAUGHTER AT BEDSIDE. INFORMED THEM THEY ARE THE ONLY ONES ALLOWED IN THE ROOM AT THIS TIME DUE TO POLICY.
--- NOTE | 2022-12-31 12:38 | ED.RN ---
PATIENT RESTING IN BED, AWAKE AND RR 20. PHYSICIAN AND RESPIRATORY AT BEDSIDE.
--- NOTE | 2022-12-31 12:51 | NURSING ---
DR DEVLIN FOR DR YAÑEZ
[2022-12-31 12:56] LABS: Troponin-I HS 217 pg/mL (3.0-54.0)
--- NOTE | 2022-12-31 13:10 | HP.PCM.HOS_ITS ---
HPI - General General Date of Admission: 12/31/22 Date of Service: 12/31/22 Chief Complaint: Shortness of breath HPI Narrative LARRY MALDONADO, is a 82 F who presented to the emergency department [facility] on 12/31/2022 with a chief complaint of shortness of breath. The patient states she was not feeling well prior to going to bed last night as she had a headache. She states she took some Tylenol and went to bed. She negated she woke up at about 4 AM and was feeling poorly again. She went to the bathroom and urinated. She states she urinated a lot and had some dysuria but that is chronic for her and not new. She also felt somewhat nauseated and had some dry heaving but no emesis. She went back and tried to lie down however she felt more short of breath and got up and went and sat in her living room however her shortness of breath worsened so she called her daughter who told her to call the squad. She asked her daughter if she could call the squad for her so she did and told her to make sure the front door was open. She was able to do all of this prior to the squad arrival. She does complain of associated cough but no fever or chills. She denies having any sick exposures. She denies any significant weight gain and has been compliant with her home medications. She has chronic diarrhea but no changes in her bowel habits. She did complain of another bout of nausea with pending emesis this morning after arrival to emergency department as well but feels better at the time of my exam. Evidently when the squad arrived she was found to be hypoxic however the waveform was poor so we are unclear exactly what her oxygen saturation has been prior to arrival to the emergency department. Vital signs on arrival to emergency department demonstrated a temperature of 96.5, heart rate 101, blood pressure 153/104 respiratory rate was anywhere from 20-2 and her oxygen saturation was actually 98% on room air however the patient looks to becoming more respiratory distress so she was placed on CPAP which seems to resolve her respiratory distress. At the time of my evaluation she was able to be weaned back to 2 L nasal cannula. She is not oxygen dependent at baseline. CBC showed a mild leukocytosis with a white count of 12, a chronic normocytic anemia with a stable hemoglobin at 8. She did have a mild left shift with a 74.3% neutrophilia. An ABG was obtained and pH was 7.45, oxygen saturation was 100% with a PO2 of 6171 and a PCO2 of 34.5 on BiPAP. Her chemistry panel showed normal electrolytes and renal function. Her glucose was elevated at 228. Troponin was obtained and found to be elevated at 188 however with review of previous troponins she has a chronic troponin elevation and cu rrently is low if she has been in a long time. Her BNP was elevated at 1014 however she had a higher BNP when she was seen approximately 10 days ago in the emergency department and had less respiratory issues and was able to be discharged home at that time. I obtained a procalcitonin that was unremarkable. UA is pending. Chest x-ray shows chronic changes with no superimposed acute, real pulmonary process. A D-dimer was obtained and found to be elevated so a CTA of her chest was performed and showed mild pulmonary edema with bilateral pleural effusions that were small and no evidence of pulmonary emboli or dissection. She did have evidence of thoracolumbar compression fractures with previous kyphoplasty. She was placed on CPAP in the emergency department and given IV Lasix and reques t for admission was made. [facility] Medical History Abdominal pain Abnormal results of thyroid function studies Anemia Anxiety and depression Atherosclerosis of coronary artery of [place] heart without angina pectoris Back pain Back pain due to injury Bladder disease Cardiology follow-up encounter Chronic back pain Chronic diarrhea Closed left hip fracture Compression fracture Dark stools Depression Diabetes Diarrhea Dietary restriction Essential hypertension [place] Fracture of left distal radius Frequent falls Gastroesophageal reflux disease History of CHF (congestive heart failure) History of echocardiogram History of hemorrhoids History of pulmonary embolus (PE) History of stress test Hyperlipidemia Hypertension Iron deficiency anemia Irritable bowel Ischemic cardiomyopathy Low back pain Lumbar compression fracture Lumbar spinal stenosis Memory deficit Myocardial infarct Non-smoker Nursing assistance required Orthopedic aftercare Osteoporosis Post-menopausal Pulmonary embolism Shortness of breath on exertion 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) Type II diabetes mellitus Vitamin D deficiency Wears dentures Wears glasses Wears hearing aid Home Medications nitroglycerin 0.4 mg sublingual tablet 0.4 mg sublingual Q5M PRN Cardiac/Chest Pain #25 tabs 12/23/21 [Rx Last Taken Unknown] blood sugar diagnostic 12/30/21 [History Last Taken Unknown] blood-glucose meter 12/30/21 [History Last Taken Unknown] isosorbide mononitrate 60 mg tablet,extended release 24 hr 60 mg PO DAILY heart #90 tabs 02/07/22 [Rx Last Taken Unknown] acetaminophen 500 mg tablet (Tylenol Extra Strength) 1,000 mg PO Q6H PRN Pain 02/21/22 [History Last Taken Unknown] aspirin 81 mg chewable tablet 81 mg PO DAILY@0800 Heart health 05/12/22 [History Last Taken Unknown] gabapentin 100 mg capsule 100 mg PO TIDCM Neuropathy 05/12/22 [History Last Taken Unknown] lidocaine 5 % topical patch 1 patch topical DAILY Pain 05/12/22 [History Last Taken Unknown] menthol 0.44 %-zinc oxide 20.6 % topical ointment (Calmoseptine) 1 applic topical TID Skin protection 05/12/22 [History Last Taken Unknown] nutrition tx glu intol,lac-free,soy-fiber 0.06 gram-1.2 kcal/mL liquid (Glucerna 1.2 [place]) 120 ml PO 4X/DAY Supplement 05/12/22 [History Last Taken Unknown] tramadol 50 mg tablet 50 mg PO Q6H PRN PRN Pain Score 4-10 3 days #12 tabs 05/28/22 [Rx Last Taken Unknown] lidocaine 4 % topical patch (Aspercreme (lidocaine)) 1 patch topical DAILY PRN Pain 06/11/22 [History Last Taken Unknown] lisinopril 40 mg tablet 40 mg PO DAILY 06/11/22 [History Last Taken Unknown] zinc oxide 20 % topical ointment 1 applic topical TID 06/11/22 [History Last Taken Unknown] cholecalciferol (vitamin D3) 1,250 mcg (50,000 unit) capsule 1,250 mcg PO .every other week 07/24/22 [History Last Taken Unknown] sertraline 100 mg tablet 100 mg PO DAILY 08/06/22 [History Last Taken Unknown] colestipol 1 gram tablet 1 g PO BID 60 days #120 tabs 09/04/22 [Rx Last Taken Unknown] Prolia 60 mg/mL subcutaneous syringe (denosumab) 60 mg subcut [id number] #1 mL 11/06/22 [Rx Last Taken 2 Months Ago ~11/02/22] metformin 500 mg tablet 500 mg PO DAILY #30 tabs 11/06/22 [Rx Last Taken Unknown] methimazole 5 mg tablet 2.5 mg PO DAILY #15 tabs 11/06/22 [Rx Last Taken Unknown] amlodipine 5 mg tablet 5 mg PO DAILY blood pressure #90 tabs 11/18/22 [Rx Last Taken Unknown] furosemide 40 mg tablet (Lasix) 40 mg PO BID Fluid retention- take 4 to 6 hours apart #180 tabs 11/18/22 [Rx Last Taken Unknown] atenolol 50 mg tablet 50 mg PO DAILY 11/20/22 [History Last Taken Unknown] potassium chloride 20 mEq tablet,extended release 20 meq PO DAILY 11/20/22 [History Last Taken Unknown] vancomycin 125 mg capsule 125 mg PO Q6H #56 caps 12/12/22 [Rx Last Taken Unknown] Allergy/AdvReac Type Severity Reaction Status Date / Time latex Allergy Other Verified 12/21/22 20:02 Family History Father CVA (cerebral vascular accident) Mother Heart disease CAD (coronary artery disease) Sister CAD (coronary artery disease) Daughter CAD (coronary artery disease) Myocardial infarction Daughter Diabetes Surgical History H/O: hysterectomy History of back surgery History of cardiac catheterization History of carpal tunnel release History of coronary artery stent placement History of kyphoplasty History of permanent cardiac pacemaker placement (12/30/21) Hx of cholecystectomy Hx of knee surgery S/P hysterectomy Social History household members: none housing: house Smoking Status: Never smoker alcohol intake: never substance use type: does not use caffeine: No what type of physical activity do you participate in: none do you feel safe at home: Yes ROS Constitutional Constitutional: Reports fatigue and weakness; Denies anorexia, change in weight, chills, fever(s), malaise, night sweats or other Eyes Eyes: Denies blurry vision, change in eye color, change in vision, discharge from eye(s), double vision, erythema, eye pain, loss of vision or other ENT HEENT: Denies abnormal hearing, dysphagia, ear pain, epistaxis, headache(s), hearing loss, nasal congestion, nasal discharge, post nasal drip, sinus pressure, sore throat or other Cardiovascular Cardiovascular: Reports chest pain; Denies claudication, dyspnea on exertion, edema, lightheadedness, orthopnea, palpitations, paroxysmal nocturnal dyspnea, rapid heart rate, syncope or other Respiratory/Chest Respiratory/Chest: Reports cough, shortness of breath at rest and shortness of breath with exertion; Denies dyspnea, excessive phlegm production, hemoptysis, productive cough, wheezing or other Gastrointestinal Gastrointestinal: Reports loose stools and nausea; Denies abdominal pain, coffee ground emesis, constipation, diarrhea, dyspepsia, hematemesis, hematochezia, melena, vomiting or other Genitourinary Genitourinary: Reports burning urination and urinary incontinence; Denies difficulty urinating, dysuria, hematuria, nocturia, urinary frequency, urinary hesitancy, urinary urgency or other Musculoskeletal Musculoskeletal: Reports back pain and joint pain; Denies arthralgias, joint stiffness, joint swelling, myalgias, neck pain or other Neurologic Neurologic: Denies abnormal gait, abnormal speech, confusion, disequilibrium, dizziness, focal weakness, headache(s), numbness, paresthesias, seizure-like activity, seizures, syncope, tingling, tremor(s) or other Psychiatric Psychiatric: Reports anxiety; Denies depression, homicidal ideation, suicidal ideation or other Endocrine Endocrinology: Denies change in body appearance, cold intolerance, excessive sweating, heat intolerance, polydipsia, polyuria or other Hematologic/Lymphatic Hematologic/Lymphatic: Denies anemia, easy bleeding, easy bruising, lymphadenopathy or other Vital Signs Vital Signs Vital Signs: 12/31/22 09:42 12/31/22 09:46 12/31/22 09:49 Temperature 96.5 F L 96.5 F L Temperature Source Temporal Temporal Pulse Rate 54 L 101 H Respiratory Rate 22 H 20 H Respiratory Effort Short of Breath Labored Accessory Muscle Use Respiratory Depth Deep Respiratory Pattern Tachypnea Blood Pressure 138/103 H 153/104 H Blood Pressure Mean 114 120 Pulse Ox 93 93 Oxygen Delivery Method CPAP CPAP CPAP Oxygen Flow Rate (L/min) Fraction of Inspired Oxygen (FIO2) 12/31/22 09:56 12/31/22 09:50 12/31/22 10:17 Temperature Temperature Source Pulse Rate 114 H 108 H Respiratory Rate 20 H 22 H Respiratory Effort Respiratory Depth Respiratory Pattern Tachypnea Blood Pressure 153/104 H Blood Pressure Mean 120 Pulse Ox 91 93 96 Oxygen Delivery Method CPAP Nasal Cannula Oxygen Flow Rate (L/min) Fraction of Inspired Oxygen (FIO2) 40 2 12/31/22 10:39 12/31/22 10:44 12/31/22 11:45 Temperature 97.4 F L 97.2 F L Temperature Source Temporal Temporal Pulse Rate 103 H 109 H 117 H Respiratory Rate 20 H 22 H 20 H Respiratory Effort Respiratory Depth Respiratory Pattern Blood Pressure 126/102 H 126/10 H 107/63 Blood Pressure Mean 110 48 77 Pulse Ox 100 92 100 Oxygen Delivery Method Nasal Cannula Nasal Cannula Nasal Cannula Oxygen Flow Rate (L/min) 2 2 3 Fraction of Inspired Oxygen (FIO2) 12/31/22 11:45 12/31/22 12:00 12/31/22 12:05 Temperature 97.8 F Temperature Source Temporal Pulse Rate 117 H 142 H 124 H Respiratory Rate 20 H 26 H 31 H Respiratory Effort Respiratory Depth Respiratory Pattern Tachypnea Blood Pressure 107/63 147/80 H Blood Pressure Mean 77 102 Pulse Ox 100 97 95 Oxygen Delivery Method Nasal Cannula Nasal Cannula Oxygen Flow Rate (L/min) 3 3 Fraction of Inspired Oxygen (FIO2) 40 12/31/22 12:36 Temperature Temperature Source Pulse Rate 86 Respiratory Rate 22 H Respiratory Effort Respiratory Depth Respiratory Pattern Blood Pressure 110/67 Blood Pressure Mean 81 Pulse Ox 100 Oxygen Delivery Method CPAP Oxygen Flow Rate (L/min) Fraction of Inspired Oxygen (FIO2) Weight Weight: 59.9 kg Body Mass Index (BMI) 26.6 Physical Exam Const alert, oriented x3, no apparent distress, average body habitus and well nourished Constitutional Narrative: Elderly white female sitting up in bed, currently on nasal cannula 2 L, appears comfortable nontoxic General Appearance: cooperative HEENT normocephalic, head/scalp atraumatic and moist oral mucous membranes; Negative for hearing grossly normal bilaterally HEENT Narrative: A dentulous, Mallampati 1, no thrush, mild hearing loss Eyes PERRL, EOMs intact bilaterally and conjunctivae normal Eyes Narrative: No scleral icterus Neck no lymphadenopathy, supple, No no JVD and no carotid bruits Neck Narrative: Mild JVD, trachea midline, no thyroid enlargement Resp normal respiratory effort, no retractions, no use of accessory muscles and No clear to auscultation bilaterally Resp Narrative: Few crackles at bases bilaterally mild conversational dyspnea but no dyspnea or tachypnea at rest Auscultation: crackles; Negative for rhonchi or wheezes Cardio regular rate, regular rhythm, S1 normal heart sound, S2 normal heart sound, no rub, no gallops and no clicks; Negative for no murmurs Cardio Narrative: Few ectopic beats, 2 out of 6 systolic murmur loudest at right upper sternal border GI normal to inspection, nondistended, normoactive bowel sounds, soft to palpation and non-tender Extremity Extremity Narrative: Trace bilateral lower extremity edema that is pitting, no cyanosis or clubbing Skin no wounds, skin turgor normal, no jaundice, no petechiae and no mottling Skin Narrative: rash in the perineum Neuro oriented x3, CN's II-XII intact bilaterally, moves all extremities and no focal motor deficits Neuro Narrative: Generalized weakness-proximal greater than distal, sensation is normal Speech: speech normal Psych affect normal Psych Narrative: Pleasant and appropriately interactive, quite animated with conversation Results Lab / Micro Data Result Diagrams: 12/31/22 09:50 12/31/22 09:50 Labs: Laboratory Results - last 24 hr 12/31/22 09:50: WBC 12.0 H, RBC 3.60 L, Hgb 8.0 L, Hct 29.6 L, MCV 82.2, MCH 22.2 L, MCHC 27.0 L, RDW Std Deviation 49.5 H, RDW Coeff of Aubrie 16.5 H, Plt Count 321, MPV 11.7, Immature Gran % (Auto) 0.700, Neut % (Auto) 74.3 H, Lymph % (Auto) 15.5 L, [place] % (Auto) 5.7, Eos % (Auto) 3.4, Baso % (Auto) 0.4, Absolute Neuts (auto) 8.9 H, Absolute Lymphs (auto) 1.86, Nucleated RBC % 0 12/31/22 09:50: D-Dimer Quant (PE/DVT) 1.15 H* 12/31/22 09:50: Sodium 141, Potassium 4.4, Chloride 108 H, Carbon Dioxide 26.0, Anion Gap 7, BUN 17, Creatinine 0.72, Estim Creat Clear Calc 41.01, Est GFR (MDRD) Af Amer 99, Est GFR (MDRD) Non-Af 82, BUN/Creatinine Ratio 23.5 H, Glucose 228 H, Calcium 9.7, Troponin I High Sens 188 H* 12/31/22 09:50: B-Natriuretic Peptide 1014.0 H 12/31/22 12:09: Troponin I High Sens 217 H* Micro: Microbiology 12/31/22 09:49 Nasal Secretion SARS-CoV-2 & FLU Antigen (Rapid) - Final ABG Data ABG results: ABG 12/31/22 10:07 Specimen Type ART Sample Site R Brach pH 7.45 Bicarbonate Actual 23.9 Total CO2 25 Base Excess 0 O2 Saturation 100 H O2 % 40 ABG pCO2 34.5 L ABG pO2 171 H Harshad Test Positive Respiration Rate 14 O2 Delivery Device BiPAP Radiology Impression Chest X-Ray 12/31/22 10:20 IMPRESSION: Chronic changes, no superimposed acute pulmonary process Electronically Signed: Zachary Blanton MD at 10:39 EDT , Chest CTA 12/31/22 10:39 IMPRESSION: Mild pulmonary edema with bilateral pleural effusions. No evidence of pulmonary embolism. Thoracolumbar compression fractures with kyphoplasty as above. Electronically Signed: Shelbi Hodge MD at 11:53 EDT , Assessment & Plan Assessment/Plan (1) CHF (congestive heart failure): (2) Oropharyngeal dysphagia: (3) Elevated troponin I level: (4) Shortness of breath: (5) Leukocytosis: PLAN: Plan Shortness of breath without hypoxia -Seems to be much improved at this time -Patient is on 2 L of oxygen at this point for comfort but oxygen saturations are stable -Wean as able -Suspect related to acute decompensated HFrEF -Rule out respiratory viral infection with other symptoms -COVID/flu rapid are negative -Chest x-ray does show some volume overload and small bilateral pleural effusions -CT of the chest is unremarkable for PE and patient does appear to be mildly volume overloaded on the CTA of her chest -Continue with diuresis Acute on chronic decompensated HFrEF secondary to ischemic cardiomyopathy -Lasix drip as ordered -Nitropaste -Fluid restriction at 1500 cc daily -2 g salt restriction -Daily weights -Most recent echo from 12/15/2021 demonstrated an EF of 25% with severe global LV dysfunction, mild left atrial enlargement, moderate mitral valve insufficiency, mild tricuspid valve insufficiency, trivial pericardial effusion and was unable to assess diastolic dysfunction -This was consistent with previous echocardiogram -Continue chronic home medications as ordered -Repeat BMP in a.m. to monitor renal function and potassium Leukocytosis -Etiology is unclear at this time -Check respiratory viral PCR -COVID and flu was negative Chronic anemia -Normocytic -Hemoglobin is stable DM-2 -Glucose was 228 on presentation -Patient with chronic anemia so A1c would be unhelpful at this time -Hold home oral medications -Treat with sliding scale -May be up as patient may have acute viral infection -It does not appear that her blood sugars have been dramatically elevated on previous admissions Chronic diarrhea -Patient is following with Dr. Bauer -Has her on vancomycin and colestipol -Continue both while hospitalized -Recommend ongoing outpatient follow-up with Dr. Bauer Oropharyngeal dysphagia -Patient's had previous swallow study that did demonstrate some oropharyngeal dysphagia -Patient does not want a feeding tube or further speech therapy evaluation -Monitor clinically Hypertension -Hold home amlodipine -Continue home atenolol-hold home isosorbide mononitrate -Hold home lisinopril -Nitropatch -Lasix drip -Monitor for ability to restart agents Hypothyroidism -Continue home methimazole -Continue home beta-natividad -Patient just had a TSH on 11/05/2022 and it was 0.62 History of tachybradycardia syndrome -Has been stable since pacemaker was placed -Continue beta-natividad -Outpatient follow-up with cardiology after discharge CAD/HPL/chronic troponin elevation -Continue home aspirin -PTCA/stent to mid first Diagonal 12/21/03; PTCA/stent to mid Diagonal 07/02/07 -Patient with chronic troponin elevation and improved compared to what her baseline appears to be Vitamin D deficiency -Restart cholecalciferol discharge 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
[2022-12-31 13:51] LABS: Procalcitonin < 0.04 ng/mL (0.00-0.09)
[2022-12-31] MEDS: Glucerna Shake 120 ML LIQUID PO ×2 (14:11→21:57)
[2022-12-31] MEDS: Acetaminophen 500 MG Tablet 1000 MG PO ×2 (14:12→21:57)
[2022-12-31] MEDS: Furosemide 500 MG in Empty Viaflex 50 mL 1 EACH CONT INF (14:12)
[2022-12-31] MEDS: Insulin Lispro 100 UNIT/ML INSULN.PEN SC ×2 (15:19→17:35)
[2022-12-31 15:35] LABS: Mucous, Urine 0 SEEN /hpf (<or=2+); Red Blood Cells-Urine 0 SEEN /hpf (0-5); Squamous Epithelial Cells - UA 0 SEEN /hpf (5-10)
[2022-12-31 15:40] LABS: Bedside Glucose 183 mg/dL (74-106)
[2022-12-31 15:51] LABS: Color, Urine Yellow (Yellow); Glucose, Dipstick 1000 mg/dl (Normal); Ketone-Dipstick 5 mg/dl (Negative); Leukocyte Esterase-Dipstick 100 /ul (Negative); Nitrite-Dipstick Positive (Negative); Occult Blood-Urine Negative /ul (Negative); Protein-Dipstick 15 mg/dl (Negative); Urine Bilirubin Dipstick Negative (Negative); Urine Clarity Clear (Clear); Urine Urobilinogen Normal (Normal)
[2022-12-31 16:19] LABS: Bacteria 1+ /hpf (None Seen); White Blood Cells 0-5 SEEN /hpf (0-5)
[2022-12-31] MEDS: Gabapentin 100 MG Capsule PO (17:35)
[2022-12-31] MEDS: Vancomycin 125 MG/5 ML Susp PO.SYRINGE PO ×2 (17:35→22:00)
[2022-12-31 18:16] LABS: Bedside Glucose 168 mg/dL (74-106)
[2022-12-31] MEDS: Nitroglycerin Oint 1 INCH PACKET TD (21:58)
[2022-12-31] MEDS: Menthol/Lanolin/Calamine/Znox 113 GM Tube 1 APPLIC TOPICAL (21:59)
[2022-12-31 22:25] LABS: Troponin-I HS 348 pg/mL (3.0-54.0)
[2022-12-31] MEDS: Colestipol 1 GM TABLET PO (23:02)
[2022-12-31 23:10] LABS: Bedside Glucose 133 mg/dL (74-106)
[2023-01-01] VITALS (9 sets, daily range): BP systolic 105–119; BP diastolic 54–61; PULSE 61–84; RESP 16–18; TEMP 36.6–36.9; O2SAT 85–100; BMI 25.3
--- NOTE | 2023-01-01 01:00 | NURSING ---
This nurse assume care of the patient at this time
[2023-01-01] MEDS: Menthol/Lanolin/Calamine/Znox 113 GM Tube 1 APPLIC TOPICAL ×3 (05:37→21:47)
[2023-01-01] MEDS: Glucerna Shake 120 ML LIQUID PO ×3 (05:37→21:47)
[2023-01-01] MEDS: Vancomycin 125 MG/5 ML Susp PO.SYRINGE PO ×4 (05:37→21:46)
[2023-01-01] MEDS: Acetaminophen 500 MG Tablet 1000 MG PO ×3 (05:37→21:47)
[2023-01-01] MEDS: Insulin Lispro 100 UNIT/ML INSULN.PEN SC ×2 (06:26→11:38)
[2023-01-01 06:40] LABS: Bedside Glucose 192 mg/dL (74-106)
[2023-01-01 07:47] LABS: Absolute Lymphocyte Count 1.49 X10^3/uL (0.83-4.51); Absolute Neutrophil Count 7.1 X10^3/uL (2.0-7.7); Basophil# 0.05 X10^3/uL; Basophil% 0.5 % (0-1); Eosinophil# 0.27 X10^3/uL; Eosinophils% 2.7 % (0-5); Hematocrit 25.4 % (37-47); Hemoglobin 7.4 g/dL (12.0-15.0); Lymphocyte # 1.49 X10^3/ul (0.83-4.51); Lymphocyte % 15.2 % (19-41); Mean Corp Hgb Conc 29.1 g/dL (32-36); Mean Corpuscular Hgb 22.8 pg (27.0-32.0); Mean Corpuscular Volume 78.4 fL (81-99); Monocyte# 0.88 X10^3/uL; NRBC Flagged by Analyzer 0 % (0-5); Neutrophil # 7.07 X10^3/uL (2.7-7.7); Platelet Count 311 K/mm3 (150-450); RBC Distribution Width CV 16.6 % (11.6-14.6); RBC Distribution Width SD 47.3 fl (35.1-43.9); Red Blood Count 3.24 M/mm3 (4.2-5.4); White Blood Count 9.8 K/mm3 (4.4-11.0)
[2023-01-01 08:11] LABS: AST(SGOT) 8 U/L (15-37); Alanine Aminotransfer ALT/SGPT 12 U/L (13-56); Albumin, Serum 3.2 g/dL (3.2-5.0); Alkaline Phosphatase 67 U/L (45-117); Anion Gap 6 (5-15); BUN 21 mg/dL (7-18); Calcium,Total 9.1 mg/dL (8.5-10.1); Chloride 104 mmol/L (98-107); Creatinine, Serum 0.78 mg/dL (0.55-1.02); EST Glomerular Filtration Rate 75 mL/min (>60); Est Glom Filt Rate - Afr Amer 91 mL/min (>60); Estimated Creatinine Clearance 31.15 ml/min; Globulin 3.1 g/dL (2.2-4.2); Glucose 169 mg/dL (74-106); Magnesium 1.7 mg/dL (1.6-2.6); Phosphorus 2.7 mg/dL (2.5-4.9); Potassium 3.9 mmol/L (3.5-5.1); Protein, Total 6.3 g/dL (6.4-8.2); Sodium Level 141 mmol/L (136-145)
[2023-01-01] MEDS: Sertraline 100 MG Tablet PO (08:41)
[2023-01-01] MEDS: Gabapentin 100 MG Capsule PO ×3 (08:41→17:59)
[2023-01-01] MEDS: Aspirin 81 MG TAB.CHEW PO (08:41)
[2023-01-01] MEDS: Atenolol 50 MG Tablet PO (08:41)
[2023-01-01] MEDS: Methimazole 5 MG Tablet 2.5 MG PO (08:42)
[2023-01-01] MEDS: Nitroglycerin Oint 1 INCH PACKET TD (08:44)
[2023-01-01] MEDS: 0.9% Saline Lock 10 ML Syringe IV ×2 (08:50→17:57)
[2023-01-01 09:13] LABS: Ferritin 43 ng/mL (8-252); Iron 12 ug/dL (50-170); Iron Binding Capacity,Total 357 ug/dL (250-450); PERCENT IRON SATURATION 3.4 % (15.0-55.0)
[2023-01-01] MEDS: Furosemide 40 MG Tablet PO ×2 (10:37→17:59)
[2023-01-01] MEDS: Meclizine 12.5 MG Tablet PO (10:37)
--- NOTE | 2023-01-01 11:20 | CASEMGMT ---
JUDSON ANDERSON DC Planning Assessment: Face to Face with patient for initial transition planning/care coordination assessment. Pt easily awoken and this RN JUSTIN introduced self and role at [facility], pt voiced understanding and is agreeable to participating in assessment.?Pt c/o headache and states she was given some medicine and is awaiting to begin working. Care providers, pharmacy,?and demographics verified. Admission dx: CHF PCP: Roberto Carlos Specialists: [facility] (endocrinology) Preferred Pharmacy: [facility] Insurance: [employer] [facility] Prescription Benefit:?yes Living Will/HPOA: yes/HPOA's are her daughters in the following order: Ailyn, Laury, and Gregorio. LNOK: Daughters as noted above and a son Joel Living Arrangements: pt lives alone in a single story apartment with no steps to enter. Pt states she is independent with ADLs but needs assistance with household tasks. States her daughter assists with laundry and getting groceries. States she primarily prepares microwaveable meals and rarely cooks. Transportation: Pt's son Joel transports pt to appointments as her daughters work and are less available. DME: built in shower bench, walk in shower, raised toilet seat, primarily uses walker with amb but also has a cane and a w/c, denies any medical alert or home O2. SNF: states she was in a facility in [place] but cannot recall the name, states [facility] which she [facility]. HHC: States she has been active with HHC but is unable to recall the provider. Pt provided permission for this RN CM to contact her daughter. JUDSON ANDERSON called pt's daughter Ailyn who states pt's insurance sends someone out to check her vital signs once or twice a week but is not familiar with the provider name. States may be someone from [place]. Ailyn expressed concern with pt's medication management as daughters set up pt's pill box but pt does not always remember to take her medications. States pt sits around a lot and is not very active. ? Plan: Pt expressed that she would like to return home at discharge as tomorrow is her birthday and her family is having a constitution party for her. Will continue to follow and assist with discharge planning as needs are determined. Becky Carmichael RN CM
[2023-01-01] MEDS: Colestipol 1 GM TABLET PO ×2 (11:37→22:51)
[2023-01-01] MEDS: Enoxaparin 40 MG/0.4 ML Syringe SC (11:37)
[2023-01-01 12:00] LABS: Bedside Glucose 247 mg/dL (74-106)
--- NOTE | 2023-01-01 14:10 | CASEMGMT ---
JUDSON ANDERSON Follow-up: Noted pt had been discharged from [facility] to the [facility] on previous admission. Call placed to Anayeli at the [facility] who states pt was with them from 11/21 thru 11/30/22 and was discharged with [facility] for SN and PT/OT services. Call placed to [facility] who states they had received the referral but had not admitted the pt or started services and stated there is not current availability until next week. Will continue to monitor and assist with DC needs based on therapy evaluations. Becky Carmichael RN CM
--- NOTE | 2023-01-01 15:00 | PCM.PN.HOSP ---
Reason for Visit Reason for Visit: Shortness of breath Subjective Subjective Shortness of breath is much improved and patient is on room air without any issues at this time. She is complaining of vertigo at this time. She states she has this at home intermittently and has taken a drug that starts with a M. I asked her if it was meclizine and she said yes. We will dose meclizine 12.5 mg x 1 dose. She also was found to have worsening anemia this morning despite diuresis. She has been having chronic diarrhea and follows with Dr. Bauer from gastroenterology. Per his last documentation which was about a month ago he had recommended possible EGD and colonoscopy depending on his work-up. Given the fact that she is having worsening anemia and ordered iron studies are consistent with iron deficiency I will go ahead and consult him for scopes. Guaiac was pending. Objective Data Objective Data Vital Signs: Vital Signs Temp Pulse Resp BP Pulse Ox O2 Del Method O2 Flow Rate 97.8 F 84 18 115/54 L 95 Room Air 2 01/01/23 08:34 01/01/23 08:34 01/01/23 08:34 01/01/23 08:34 01/01/23 14:45 01/01/23 08:34 01/01/23 07:05 FiO2 40 12/31/22 17:34 Oxygen Flow Rate (L/min) 2 Oxygen Delivery Method Room Air Weight: 58.8 kg Body Mass Index (BMI) 25.3 Intake & Output: Intake and Output for Last 24 Hours 12/30/22 12/31/22 01/01/23 23:59 23:59 23:59 Intake Total 700 / 700 698.65 / 698.65 Output Total 550 / 550 1450 / 1450 Balance 150 / 150 -751.35 / -751.35 Lab / Micro Data Result Diagrams: 01/01/23 07:28 01/01/23 07:28 Labs: Laboratory Results - last 24 hr 12/31/22 15:18: POC Glucose 183 H 12/31/22 15:25: Urine Color Yellow, Urine Clarity Clear, Urine pH 5.0, Ur Specific [place] 1.010, Urine Protein 15 H, Urine Glucose (UA) 1000 H, Urine Ketones 5 H, Urine Occult Blood Negative, Urine Nitrite Positive H, Urine Bilirubin Negative, Urine Urobilinogen Normal, Ur Leukocyte Esterase 100 H, Urine RBC 0 SEEN, Urine WBC 0-5 SEEN, Ur Squamous Epith Cells 0 SEEN, Urine Bacteria 1+, Urine Mucus 0 SEEN 12/31/22 17:34: POC Glucose 168 H 12/31/22 21:36: Troponin I High Sens 348 H* 12/31/22 22:04: POC Glucose 133 H 01/01/23 06:19: POC Glucose 192 H 01/01/23 07:28: WBC 9.8, RBC 3.24 L, Hgb 7.4 L, Hct 25.4 L, MCV 78.4 L, MCH 22.8 L, MCHC 29.1 L D, RDW Std Deviation 47.3 H, RDW Coeff of Aubrie 16.6 H, Plt Count 311, MPV 12.0, Immature Gran % (Auto) 0.600, Neut % (Auto) 72.0 H, Lymph % (Auto) 15.2 L, [place] % (Auto) 9.0, Eos % (Auto) 2.7, Baso % (Auto) 0.5, Absolute Neuts (auto) 7.1, Absolute Lymphs (auto) 1.49, Nucleated RBC % 0 01/01/23 07:28: Sodium 141, Potassium 3.9, Chloride 104, Carbon Dioxide 31.0, Anion Gap 6, BUN 21 H, Creatinine 0.78, Estim Creat Clear Calc 31.15, Est GFR (MDRD) Af Amer 91, Est GFR (MDRD) Non-Af 75, BUN/Creatinine Ratio 27.0 H, Glucose 169 H, Calcium 9.1, Phosphorus 2.7, Magnesium 1.7, Total Bilirubin 1.40 H, AST 8 L, ALT 12 L, Alkaline Phosphatase 67, Total Protein 6.3 L, Albumin 3.2, Globulin 3.1, Albumin/Globulin Ratio 1.0 01/01/23 07:28: Iron 12 L, TIBC 357, Iron Saturation 3.4 L, Ferritin 43 01/01/23 11:35: POC Glucose 247 H Micro: Microbiology 01/01/23 13:00 Stool Stool Occult Blood (JEFFERY) - Final Occult Blood Positive 12/31/22 15:45 Mucosa - Nose Respiratory Panel (PCR) - Final 12/31/22 09:49 Nasal Secretion SARS-CoV-2 & FLU Antigen (Rapid) - Final Physical Exam Const alert, oriented x3, average body habitus and well nourished Constitutional Narrative: Elderly white female lying in bed in left side-lying, complaining of dizziness, on room air, appears if she is not feeling well, nontoxic however General Appearance: cooperative HEENT normocephalic, head/scalp atraumatic and moist oral mucous membranes; Negative for hearing grossly normal bilaterally HEENT Narrative: Moderate hearing loss, Mallampati is 1, edentulous, no thrush Eyes PERRL and EOMs intact bilaterally Eyes Narrative: No scleral icterus, conjunctiva are pale bilaterally Neck no lymphadenopathy, supple, no JVD and no carotid bruits Neck Narrative: trachea midline, no thyroid enlargement Resp normal respiratory effort, no retractions, no use of accessory muscles and clear to auscultation bilaterally Auscultation: Negative for crackles, rhonchi or wheezes Cardio regular rate, regular rhythm, S1 normal heart sound, S2 normal heart sound, no rub, no gallops and no clicks; Negative for no murmurs Cardio Narrative: 2 out of 6 systolic murmur loudest at right upper sternal border GI normal to inspection, nondistended, normoactive bowel sounds, soft to palpation and non-tender Extremity no clubbing, cyanosis or edema Skin no wounds, skin turgor normal, no jaundice, no petechiae and no mottling Neuro oriented x3, CN's II-XII intact bilaterally, moves all extremities and no focal motor deficits Neuro Narrative: Generalized weakness-proximal greater than distal, sensation is normal Speech: speech normal Psych affect normal Psych Narrative: Affect is a little flatter today however eye contact is good during conversation and patient does not seem depressed Assessment & Plan Assessment/Plan (1) CHF (congestive heart failure): (2) Oropharyngeal dysphagia: (3) Elevated troponin I level: (4) Shortness of breath: (5) Leukocytosis: (6) Acute on chronic anemia: (7) Vertigo: PLAN: Plan Shortness of breath without hypoxia -Resolved -Patient now on room air -Suspect related to acute decompensated HFrEF upon presentation -Respiratory viral panel is unremarkable -COVID/flu rapid are negative -Discontinue Lasix drip and transition to home diuretics Acute on chronic decompensated HFrEF secondary to ischemic cardiomyopathy -Discontinue Lasix drip as ordered--> we will start home oral Lasix 40 mg p.o. twice daily -Discontinue Nitropaste -Continue fluid restriction at 1500 cc daily -Continue continue 2 g salt restriction -Daily weights -Most recent echo from 12/15/2021 demonstrated an EF of 25% with severe global LV dysfunction, mild left atrial enlargement, moderate mitral valve insufficiency, mild tricuspid valve insufficiency, trivial pericardial effusion and was unable to assess diastolic dysfunction -This was consistent with previous echocardiogram -Continue chronic home medications as ordered -Repeat BMP in a.m. to monitor renal function and potassium Leukocytosis -Resolved Acute on chronic microcytic anemia -It is microcytic this morning -Iron studies consistent with iron deficiency -Start IV iron x2 days and then start oral iron 3 times daily with vitamin C supplementation -Hemoglobin down to 7.4 this morning -Stool guaiac is positive -Consult GI for EGD/colonoscopy Vertigo -Patient indicates she is a chronic issue with this at home -Reports meclizine does work -Meclizine 12.5 mg given x1 dose DM-2 -Glucose 169 this morning -Recent A1c done on 11/19/2022 at 6.4 however this is probably a little bit of an under representation given her chronic anemia -Hold home oral medications -Treat with sliding scale -Consider Jardiance with reduced EF at discharge Chronic diarrhea -Patient is following with Dr. Bauer -Has her on vancomycin and colestipol -Continue both while hospitalized -Dr. Bauer is consulted with above acute on chronic anemia Oropharyngeal dysphagia -Patient's had previous swallow study that did demonstrate some oropharyngeal dysphagia -Patient does not want a feeding tube or further speech therapy evaluation -Monitor clinically Hypertension -Continue to hold home amlodipine/lisinopril/and isosorbide mononitrate as blood pressures are at goal with current regimen -Continue home atenolol -Discontinue Nitropaste -Restart home oral Lasix dosing -Monitor for ability to restart agents Hypothyroidism -Continue home methimazole -Continue home beta-natividad -Patient just had a TSH on 11/05/2022 and it was 0.62 History of tachybradycardia syndrome -Has been stable since pacemaker was placed -Continue beta-natividad -Outpatient follow-up with cardiology after discharge CAD/HPL/chronic troponin elevation -Continue home aspirin -PTCA/stent to mid first Diagonal 12/21/03; PTCA/stent to mid Diagonal 07/02/07 -Patient with chronic troponin elevation and improved compared to what her baseline appears to be Vitamin D deficiency -Restart cholecalciferol discharge 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
[2023-01-01 17:56] LABS: Bedside Glucose 159 mg/dL (74-106)
--- NOTE | 2023-01-01 18:53 | EX.PCM.CON.G ---
HPI Consult Data Date of Consult: 01/01/23 HPI Narrative Reason for Consultation: Anemia HPI Narrative: LARRY MALDONADO, is a 82 F with PMH anemia, anxiety/depression, bladder disease, DMII, hyperlipidemia, ischemic cardiomyopathy/myocardial infarct s/p cardiac pacemaker, DMII PSH cholecystectomy. She presented to the office for evaluation of postprandial diarrhea and weight loss. As per daughter she has a history of anemia from unknown cause. I started her on colestipol 1 g p.o. twice daily which she was taking on a daily basis. However we rechecked her stool and it was positive for C. difficile. EGD and colonoscopy 10.08.[address] Holloway for anemia and fecal occult +. EGD found gastritis. H.Pylori negative. Colonoscopy noting small mouthed diverticula; non-bleeding external/internal hemorrhoids. Colon appeared normal. Pathology without changes. CT abd/pel 04.07.22 noting focal wall thickening of gastric antrum, gastritis; atherosclerotic disease; stool throughout colon. Stool 04.10.22 occult, lactoferrin, enteric pathogen WNL. Cdifficile positive toxigenic A/B antigen Stool 05.10.22 C.Difficile positive for toxigenic A/B antigen. She was treated for this with vancomycin. Barium swallow 05.12.22 with mild-moderate oropharyngeal dysphagia. I was asked to see her at this time due to worsening anemia. She does take aspirin and as an patient along with a metal was new and she has been on vancomycin for the past several days for recent diagnosis of C. difficile. [facility] Medical History Abdominal pain Abnormal results of thyroid function studies Anemia Anxiety and depression Atherosclerosis of coronary artery of [place] heart without angina pectoris Back pain Back pain due to injury Bladder disease Cardiology follow-up encounter Chronic back pain Chronic diarrhea Closed left hip fracture Compression fracture Dark stools Depression Diabetes Diarrhea Dietary restriction Essential hypertension [place] Fracture of left distal radius Frequent falls Gastroesophageal reflux disease History of CHF (congestive heart failure) History of echocardiogram History of hemorrhoids History of pulmonary embolus (PE) History of stress test Hyperlipidemia Hypertension Iron deficiency anemia Irritable bowel Ischemic cardiomyopathy Low back pain Lumbar compression fracture Lumbar spinal stenosis Memory deficit Myocardial infarct Non-smoker Nursing assistance required Orthopedic aftercare Osteoporosis Post-menopausal Pulmonary embolism Shortness of breath on exertion 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) Type II diabetes mellitus Vitamin D deficiency Wears dentures Wears glasses Wears hearing aid Home Medications nitroglycerin 0.4 mg sublingual tablet 0.4 mg sublingual Q5M PRN Cardiac/Chest Pain #25 tabs 12/23/21 [Rx Last Taken Unknown] blood sugar diagnostic 12/30/21 [History Last Taken Unknown] blood-glucose meter 12/30/21 [History Last Taken Unknown] isosorbide mononitrate 60 mg tablet,extended release 24 hr 60 mg PO DAILY heart #90 tabs 02/07/22 [Rx Last Taken Unknown] acetaminophen 500 mg tablet (Tylenol Extra Strength) 1,000 mg PO Q6H PRN Pain 02/21/22 [History Last Taken Unknown] aspirin 81 mg chewable tablet 81 mg PO DAILY@0800 Heart health 05/12/22 [History Last Taken Unknown] gabapentin 100 mg capsule 100 mg PO TIDCM Neuropathy 05/12/22 [History Last Taken Unknown] lidocaine 5 % topical patch 1 patch topical DAILY Pain 05/12/22 [History Last Taken Unknown] menthol 0.44 %-zinc oxide 20.6 % topical ointment (Calmoseptine) 1 applic topical TID Skin protection 05/12/22 [History Last Taken Unknown] nutrition tx glu intol,lac-free,soy-fiber 0.06 gram-1.2 kcal/mL liquid (Glucerna 1.2 [place]) 120 ml PO 4X/DAY Supplement 05/12/22 [History Last Taken Unknown] tramadol 50 mg tablet 50 mg PO Q6H PRN PRN Pain Score 4-10 3 days #12 tabs 05/28/22 [Rx Last Taken Unknown] lidocaine 4 % topical patch (Aspercreme (lidocaine)) 1 patch topical DAILY PRN Pain 06/11/22 [History Last Taken Unknown] lisinopril 40 mg tablet 40 mg PO DAILY 06/11/22 [History Last Taken Unknown] zinc oxide 20 % topical ointment 1 applic topical TID 06/11/22 [History Last Taken Unknown] cholecalciferol (vitamin D3) 1,250 mcg (50,000 unit) capsule 1,250 mcg PO .every other week 07/24/22 [History Last Taken Unknown] sertraline 100 mg tablet 100 mg PO DAILY 08/06/22 [History Last Taken Unknown] colestipol 1 gram tablet 1 g PO BID 60 days #120 tabs 09/04/22 [Rx Last Taken Unknown] Prolia 60 mg/mL subcutaneous syringe (denosumab) 60 mg subcut [id number] #1 mL 11/06/22 [Rx Last Taken 2 Months Ago ~11/02/22] metformin 500 mg tablet 500 mg PO DAILY #30 tabs 11/06/22 [Rx Last Taken Unknown] methimazole 5 mg tablet 2.5 mg PO DAILY #15 tabs 11/06/22 [Rx Last Taken Unknown] amlodipine 5 mg tablet 5 mg PO DAILY blood pressure #90 tabs 11/18/22 [Rx Last Taken Unknown] furosemide 40 mg tablet (Lasix) 40 mg PO BID Fluid retention- take 4 to 6 hours apart #180 tabs 11/18/22 [Rx Last Taken Unknown] atenolol 50 mg tablet 50 mg PO DAILY 11/20/22 [History Last Taken Unknown] potassium chloride 20 mEq tablet,extended release 20 meq PO DAILY 11/20/22 [History Last Taken Unknown] vancomycin 125 mg capsule 125 mg PO Q6H #56 caps 12/12/22 [Rx Last Taken Unknown] Allergy/AdvReac Type Severity Reaction Status Date / Time latex Allergy Other Verified 12/21/22 20:02 Family History Father CVA (cerebral vascular accident) Mother Heart disease CAD (coronary artery disease) Sister CAD (coronary artery disease) Daughter CAD (coronary artery disease) Myocardial infarction Daughter Diabetes Surgical History H/O: hysterectomy History of back surgery History of cardiac catheterization History of carpal tunnel release History of coronary artery stent placement History of kyphoplasty History of permanent cardiac pacemaker placement (12/30/21) Hx of cholecystectomy Hx of knee surgery S/P hysterectomy Social History household members: none housing: house Smoking Status: Never smoker alcohol intake: never substance use type: does not use caffeine: No what type of physical activity do you participate in: none do you feel safe at home: Yes ROS Constitutional Constitutional: Reports fatigue and weakness; Denies anorexia, change in weight, chills, fever(s), malaise, night sweats or other Eyes Eyes: Denies blurry vision, change in eye color, change in vision, discharge from eye(s), double vision, erythema, eye pain, loss of vision or other ENT HEENT: Denies abnormal hearing, dysphagia, ear pain, epistaxis, headache(s), hearing loss, nasal congestion, nasal discharge, post nasal drip, sinus pressure, sore throat or other Cardiovascular Cardiovascular: Reports chest pain; Denies claudication, dyspnea on exertion, edema, lightheadedness, orthopnea, palpitations, paroxysmal nocturnal dyspnea, rapid heart rate, syncope or other Respiratory/Chest Respiratory/Chest: Reports cough, shortness of breath at rest and shortness of breath with exertion; Denies dyspnea, excessive phlegm production, hemoptysis, productive cough, wheezing or other Gastrointestinal Gastrointestinal: Reports loose stools and nausea; Denies abdominal pain, coffee ground emesis, constipation, diarrhea, dyspepsia, hematemesis, hematochezia, melena, vomiting or other Genitourinary Genitourinary: Reports burning urination and urinary incontinence; Denies difficulty urinating, dysuria, hematuria, nocturia, urinary frequency, urinary hesitancy, urinary urgency or other Musculoskeletal Musculoskeletal: Reports back pain and joint pain; Denies arthralgias, joint stiffness, joint swelling, myalgias, neck pain or other Neurologic Neurologic: Denies abnormal gait, abnormal speech, confusion, disequilibrium, dizziness, focal weakness, headache(s), numbness, paresthesias, seizure-like activity, seizures, syncope, tingling, tremor(s) or other Psychiatric Psychiatric: Reports anxiety; Denies depression, homicidal ideation, suicidal ideation or other Endocrine Endocrinology: Denies change in body appearance, cold intolerance, excessive sweating, heat intolerance, polydipsia, polyuria or other Hematologic/Lymphatic Hematologic/Lymphatic: Denies anemia, easy bleeding, easy bruising, lymphadenopathy or other Physical Exam Const alert, oriented x3, no apparent distress, average body habitus and well nourished General Appearance: cooperative HEENT normocephalic, head/scalp atraumatic and moist oral mucous membranes; Negative for hearing grossly normal bilaterally HEENT Narrative: Moderate hearing loss, Mallampati 2, no thrush Resp normal respiratory effort, no retractions, no use of accessory muscles and clear to auscultation bilaterally Auscultation: Negative for crackles, rhonchi or wheezes Cardio regular rate, regular rhythm, S1 normal heart sound, S2 normal heart sound, no rub, no gallops and no clicks; Negative for no murmurs Cardio Narrative: 2 out of 6 systolic murmur loudest at right upper sternal border GI normal to inspection, nondistended, normoactive bowel sounds, soft to palpation and non-tender Extremity no clubbing, cyanosis or edema Neuro oriented x3, CN's II-XII intact bilaterally, moves all extremities and no focal motor deficits Neuro Narrative: Generalized weakness-proximal greater than distal, sensation is normal Speech: speech normal Psych affect normal Psych Narrative: Very pleasant, properly interactive Lab / Micro Data Result Diagrams: 01/02/23 06:21 01/02/23 06:21 Labs: Laboratory Results - last 24 hr 01/01/23 21:46: POC Glucose 159 H 01/02/23 06:20: POC Glucose 154 H 01/02/23 06:21: WBC 8.8, RBC 3.07 L, Hgb 6.8 L, Hct 24.1 L, MCV 78.5 L, MCH 22.1 L, MCHC 28.2 L, RDW Std Deviation 48.2 H, RDW Coeff of [place]rie 17.0 H, Plt Count 324, MPV 12.5 H, Immature Gran % (Auto) 0.700, Neut % (Auto) 65.4, Lymph % (Auto) 20.0, [place] % (Auto) 9.1, Eos % (Auto) 4.1, Baso % (Auto) 0.7, Absolute Neuts (auto) 5.8, Absolute Lymphs (auto) 1.76, Nucleated RBC % 0.2 01/02/23 06:21: Sodium 139, Potassium 4.1, Chloride 101, Carbon Dioxide 29.0, Anion Gap 9, BUN 30 H, Creatinine 0.91, Estim Creat Clear Calc 33.65, Est GFR (MDRD) Af Amer 76, Est GFR (MDRD) Non-Af 63, BUN/Creatinine Ratio 33.0 H, Glucose 156 H, Calcium 8.5, Magnesium 1.9 01/02/23 09:20: Blood Type O POSITIVE, Antibody Screen NEGATIVE, Crossmatch See Detail 01/02/23 11:46: POC Glucose 110 H 01/02/23 15:19: POC Glucose 106 Assessment & Plan Assessment/Plan (1) Chronic diarrhea: (2) Acute on chronic anemia: PLAN: Plan 1. Anemia-recommend upper endoscopy and possibly colonoscopy. The patient and patient's family was explained alternatives, risk, benefits including outstanding bleeding, infection, sepsis, perforation, need for discharge and . Show an ASA of 3. 2. Chronic diarrhea, secondary to recent C. difficile colitis with likely post infectious diarrhea. Last TSH was 0.62 Will check magnesium and phosphorus Check Stool for enteric panel, ova and parasite Continue colestipol 3. Rest of her chronic medical conditions including CAD status post stent/ischemic cardiomyopathy, EF 20 to 25%/chronic diastolic CHF/hyperlipidemia/PAD/status post pacemaker, remained stable but complicates overall care and management Continue amlodipine, aspirin, atenolol, isosorbide Charges/Coding Visit Charges Inpatient E&M: 55182 Init Hosp L3
[2023-01-02] VITALS (20 sets, daily range): BP systolic 89–122; BP diastolic 48–87; PULSE 60–81; RESP 14–18; TEMP 36.2–36.8; O2SAT 88–100; BMI 25.4
[2023-01-02 00:01] LABS: Bedside Glucose 159 mg/dL (74-106)
[2023-01-02] MEDS: Menthol/Lanolin/Calamine/Znox 113 GM Tube 1 APPLIC TOPICAL ×3 (05:40→21:37)
[2023-01-02] MEDS: Vancomycin 125 MG/5 ML Susp PO.SYRINGE PO ×2 (05:41→18:12)
[2023-01-02] MEDS: Glucerna Shake 120 ML LIQUID PO ×2 (05:41→21:39)
[2023-01-02] MEDS: Acetaminophen 500 MG Tablet 1000 MG PO ×2 (05:41→21:38)
[2023-01-02] MEDS: Insulin Lispro 100 UNIT/ML INSULN.PEN SC (06:21)
[2023-01-02 06:45] LABS: Absolute Lymphocyte Count 1.76 X10^3/uL (0.83-4.51); Absolute Neutrophil Count 5.8 X10^3/uL (2.0-7.7); Basophil# 0.06 X10^3/uL; Basophil% 0.7 % (0-1); Eosinophil# 0.36 X10^3/uL; Eosinophils% 4.1 % (0-5); Hematocrit 24.1 % (37-47); Hemoglobin 6.8 g/dL (12.0-15.0); Lymphocyte # 1.76 X10^3/ul (0.83-4.51); Mean Corp Hgb Conc 28.2 g/dL (32-36); Mean Corpuscular Hgb 22.1 pg (27.0-32.0); Mean Corpuscular Volume 78.5 fL (81-99); Mean Platelet Vol. 12.5 fl (6.2-12.0); Monocyte% 9.1 % (0-10); NRBC Flagged by Analyzer 0.2 % (0-5); Neutrophil # 5.76 X10^3/uL (2.7-7.7); Neutrophil % 65.4 % (47-70); Platelet Count 324 K/mm3 (150-450); RBC Distribution Width SD 48.2 fl (35.1-43.9); Red Blood Count 3.07 M/mm3 (4.2-5.4); White Blood Count 8.8 K/mm3 (4.4-11.0)
[2023-01-02 07:00] LABS: Bedside Glucose 154 mg/dL (74-106)
[2023-01-02 07:16] LABS: Anion Gap 9 (5-15); BUN 30 mg/dL (7-18); Calcium,Total 8.5 mg/dL (8.5-10.1); Chloride 101 mmol/L (98-107); Creatinine, Serum 0.91 mg/dL (0.55-1.02); EST Glomerular Filtration Rate 63 mL/min (>60); Est Glom Filt Rate - Afr Amer 76 mL/min (>60); Estimated Creatinine Clearance 33.65 ml/min; Glucose 156 mg/dL (74-106); Magnesium 1.9 mg/dL (1.6-2.6); Potassium 4.1 mmol/L (3.5-5.1); Sodium Level 139 mmol/L (136-145)
[2023-01-02] MEDS: 0.9% Saline Lock 10 ML Syringe IV (10:30)
[2023-01-02 12:06] LABS: Bedside Glucose 110 mg/dL (74-106)
--- NOTE | 2023-01-02 14:17 | PN.HOSP_ITS ---
Reason for Visit Reason for Visit: Shortness of breath Subjective Subjective Patient doing well from a respiratory standpoint. Remains on room air. No complaints of shortness of breath. Vertigo has resolved. Unfortunately her hemoglobin dropped to 6.8 and she is guaiac positive with a microcytic anemia. I discussed with her transfusion and she agreed to 1 unit packed red blood cells. GI is consulted and pending input. I will make her n.p.o. for now with hopes of an EGD at least today. Objective Data Objective Data Vital Signs: Vital Signs Temp Pulse Resp BP Pulse Ox O2 Del Method O2 Flow Rate 98.3 F 66 14 106/53 L 95 Room Air 2 01/02/23 11:36 01/02/23 11:36 01/02/23 11:36 01/02/23 11:36 01/02/23 11:36 01/02/23 13:13 01/01/23 07:05 FiO2 40 12/31/22 17:34 Oxygen Flow Rate (L/min) 2 Oxygen Delivery Method Room Air Weight: 59.1 kg Body Mass Index (BMI) 25.4 Intake & Output: Intake and Output for Last 24 Hours 12/31/22 01/01/23 01/02/23 23:59 23:59 23:59 Intake Total 700 / 700 1538.65 / 1538.65 120 / 120 Output Total 550 / 550 1450 / 1450 Balance 150 / 150 88.65 / 88.65 120 / 120 Lab / Micro Data Result Diagrams: 01/02/23 06:21 01/02/23 06:21 Labs: Laboratory Results - last 24 hr 01/01/23 17:38: POC Glucose 159 H 01/01/23 21:46: POC Glucose 159 H 01/02/23 06:20: POC Glucose 154 H 01/02/23 06:21: WBC 8.8, RBC 3.07 L, Hgb 6.8 L, Hct 24.1 L, MCV 78.5 L, MCH 22.1 L, MCHC 28.2 L, RDW Std Deviation 48.2 H, RDW Coeff of Aubrie 17.0 H, Plt Count 324, MPV 12.5 H, Immature Gran % (Auto) 0.700, Neut % (Auto) 65.4, Lymph % (Auto) 20.0, [place] % (Auto) 9.1, Eos % (Auto) 4.1, Baso % (Auto) 0.7, Absolute Neuts (auto) 5.8, Absolute Lymphs (auto) 1.76, Nucleated RBC % 0.2 01/02/23 06:21: Sodium 139, Potassium 4.1, Chloride 101, Carbon Dioxide 29.0, Anion Gap 9, BUN 30 H, Creatinine 0.91, Estim Creat Clear Calc 33.65, Est GFR (MDRD) Af Amer 76, Est GFR (MDRD) Non-Af 63, BUN/Creatinine Ratio 33.0 H, Glucose 156 H, Calcium 8.5, Magnesium 1.9 01/02/23 09:20: Blood Type O POSITIVE, Antibody Screen NEGATIVE, Crossmatch See Detail 01/02/23 11:46: POC Glucose 110 H Micro: Microbiology 01/01/23 13:00 Stool Stool Occult Blood (JEFFERY) - Final Occult Blood Positive 12/31/22 15:45 Mucosa - Nose Respiratory Panel (PCR) - Final 12/31/22 09:49 Nasal Secretion SARS-CoV-2 & FLU Antigen (Rapid) - Final Physical Exam Const alert, oriented x3, no apparent distress, average body habitus and well nourished Constitutional Narrative: Elderly white female sleeping in bed but awakens to tactile stimulus, on room air, appears well, nontoxic appearing General Appearance: cooperative HEENT normocephalic, head/scalp atraumatic and moist oral mucous membranes; Negative for hearing grossly normal bilaterally HEENT Narrative: Moderate hearing loss, Mallampati 2, no thrush Resp normal respiratory effort, no retractions, no use of accessory muscles and clear to auscultation bilaterally Auscultation: Negative for crackles, rhonchi or wheezes Cardio regular rate, regular rhythm, S1 normal heart sound, S2 normal heart sound, no rub, no gallops and no clicks; Negative for no murmurs Cardio Narrative: 2 out of 6 systolic murmur loudest at right upper sternal border GI normal to inspection, nondistended, normoactive bowel sounds, soft to palpation and non-tender Extremity no clubbing, cyanosis or edema Neuro oriented x3, CN's II-XII intact bilaterally, moves all extremities and no focal motor deficits Neuro Narrative: Generalized weakness-proximal greater than distal, sensation is normal Speech: speech normal Psych affect normal Psych Narrative: Very pleasant, properly interactive Assessment & Plan Assessment/Plan (1) CHF (congestive heart failure): (2) Oropharyngeal dysphagia: (3) Elevated troponin I level: (4) Shortness of breath: (5) Leukocytosis: (6) Acute on chronic anemia: (7) Vertigo: PLAN: Plan Shortness of breath without hypoxia -Resolved -Patient has remained on room air -Suspect related to acute decompensated HFrEF upon presentation -Respiratory viral panel is unremarkable -COVID/flu rapid are negative -Continue home diuretics Acute on chronic decompensated HFrEF secondary to ischemic cardiomyopathy -Continue home oral Lasix 40 mg p.o. twice daily -Continue fluid restriction at 1500 cc daily -Continue continue 2 g salt restriction -Daily weights -Start Jardiance 10 mg daily -Most recent echo from 12/15/2021 demonstrated an EF of 25% with severe global LV dysfunction, mild left atrial enlargement, moderate mitral valve insufficiency, mild tricuspid valve insufficiency, trivial pericardial effusion and was unable to assess diastolic dysfunction -This was consistent with previous echocardiogram -Continue chronic home medications as ordered -Repeat BMP in a.m. to monitor renal function and potassium Acute on chronic microcytic anemia -Microcytic -Iron studies consistent with iron deficiency -Continue IV iron x2 days and then start oral iron 3 times daily with vitamin C supplementation -Start p.o. iron with vitamin C tomorrow -Hemoglobin down to 6.8 this morning -Stool guaiac is positive -With hemoglobin less than 7 will transfuse 1 unit of packed red blood cells -GI is consulted and scopes are pending -Repeat CBC in a.m. Vertigo -Resolved DM-2 -Glucose 169 this morning -Recent A1c done on 11/19/2022 at 6.4 however this is probably a little bit of an under representation given her chronic anemia -Hold home oral medications -Treat with sliding scale -Start Jardiance we will plan to discharge as long as it is covered by prescription coverage Chronic diarrhea -Patient is following with Dr. Bauer -Has her on vancomycin and colestipol -Continue both while hospitalized -Dr. Bauer is consulted with above acute on chronic anemia Oropharyngeal dysphagia -Patient's had previous swallow study that did demonstrate some oropharyngeal dysphagia -Patient does not want a feeding tube or further speech therapy evaluation -Monitor clinically Hypertension -Continue to hold home amlodipine/lisinopril/and isosorbide mononitrate as blood pressures are at goal with current regimen -Continue home atenolol/Lasix -Blood pressure remains in goal range without initiating home lisinopril/amlod ipine/or isosorbide mononitrate -Continue to hold at this point and treat with atenolol and home Lasix -Monitor for ability to restart agents Hypothyroidism -Continue home methimazole -Continue home beta-natividad -Patient just had a TSH on 11/05/2022 and it was 0.62 History of tachybradycardia syndrome -Has been stable since pacemaker was placed -Continue beta-natividad -Outpatient follow-up with cardiology after discharge CAD/HPL/chronic troponin elevation -Continue home aspirin -PTCA/stent to mid first Diagonal 12/21/03; PTCA/stent to mid Diagonal 07/02/07 -Patient with chronic troponin elevation and improved compared to what her baseline appears to be Vitamin D deficiency -Restart cholecalciferol discharge 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
--- NOTE | 2023-01-02 15:17 | CASEMGMT ---
RN CM in to discuss discharge planning with patient and daughter. Patient is interested in HHC. A list of HHC providers including quality and resource use data and consistent with the patient?s preferred geographical region, medical needs, and insurance network were provided from the [facility] [facility]. [facility] RN CM made referral and they are able to accept the patient with start of care for Thursday01/06/23. RN CM went back to updated patient but out of room for procedure. RN CM will attempt to update patient and daughter at later time.
[2023-01-02] MEDS: Lactated Ringers 1,000 ML 15 ML IV (15:35)
[2023-01-02 15:41] LABS: Bedside Glucose 106 mg/dL (74-106)
--- NOTE | 2023-01-02 16:55 | OP.EGD_ITS ---
Patient Name: Ashlee Boateng Procedure Date: 01/02/2023 4:28 PM Date of : 1940 Age: 83 Procedure: Upper GI endoscopy Indications: Melena Providers: Sumeet Bauer DO Medicines: Monitored Anesthesia Care Patient Profile: This is an 83 year old female. Refer to note in patient chart for documentation of history and physical. Patient has symptoms of acute epigastric abdominal pain and acute nausea. Complications: No immediate complications. Procedure: Pre-Anesthesia Assessment: - Prior to the procedure, a History and Physical was performed, and patient medications and allergies were reviewed. The risks and benefits of the procedure and the sedation options and risks were discussed with the patient. All questions were answered and informed consent was obtained. Patient identification and proposed procedure were verified by the physician in the pre-procedure area. Mental Status Examination: alert and oriented. Airway Examination: normal oropharyngeal airway and neck mobility. Respiratory Examination: clear to auscultation. CV Examination: normal. Prophylactic Antibiotics: The patient does not require prophylactic antibiotics. Prior Anticoagulants: The patient has taken Xarelto (rivaroxaban), last dose was day of procedure. ASA Grade Assessment: III - A patient with severe systemic disease. After reviewing the risks and benefits, the patient was deemed in satisfactory condition to undergo the procedure. The anesthesia plan was to use monitored anesthesia care (MAC). Immediately prior to administration of medications, the patient was re-assessed for adequacy to receive sedatives. The heart rate, respiratory rate, oxygen saturations, blood pressure, adequacy of pulmonary ventilation, and response to care were monitored throughout the procedure. The physical status of the patient was re-assessed after the procedure. After obtaining informed consent, the endoscope was passed under direct vision. Throughout the procedure, the patient's blood pressure, pulse, and oxygen saturations were monitored continuously. The gastroscope was introduced through the mouth, and advanced to the second part of duodenum. The upper GI endoscopy was accomplished without difficulty. The patient tolerated the procedure well. Scope In: 4:30:32 PM Scope Out: 4:49:20 PM Total Procedure Duration Time 0 hours 18 minutes 48 seconds Findings: The examined esophagus was normal. A medium-sized hiatal hernia was present. Many non-bleeding cratered gastric ulcers with no stigmata of bleeding were found in the gastric antrum. The largest lesion was 7 mm in largest dimension. Biopsies were taken with a cold forceps for histology. Verification of patient identification for the specimen was done. Estimated blood loss was minimal. A single 5 mm angiodysplastic lesion with bleeding was found in the area of the papilla. Area was successfully injected with 5 mL of a 1:10,000 solution of epinephrine for drug delivery. Coagulation for hemostasis using heater probe was successful. Estimated blood loss was minimal. Impression: - Normal esophagus. - Medium-sized hiatal hernia. - Non-bleeding gastric ulcers with no stigmata of bleeding. Biopsied. - A single bleeding angiodysplastic lesion in the duodenum. Injected. Treated with a heater probe. Recommendation: - Return patient to hospital conteh for ongoing care. - Clear liquid diet. - Continue present medications. Procedure Code(s): --- Professional --- 85216, 59, Esophagogastroduodenoscopy, flexible, transoral; with control of bleeding, any method 94781, 59, Esophagogastroduodenoscopy, flexible, transoral; with directed submucosal injection(s), any substance 23381, Esophagogastroduodenoscopy, flexible, transoral; with biopsy, single or multiple CPT copyright 2017 [employer]. All rights reserved. The codes documented in this report are preliminary and upon cutting machine fixer review may be revised to meet current compliance requirements. Sumeet Bauer DO 01/02/2023 4:55:13 PM This report has been signed electronically. Number of Addenda: 0 Note Initiated On: 01/02/2023 4:28 PM
--- NOTE | 2023-01-02 16:56 | OP.CCLET_ITS ---
01/02/2023 Mary Azevedo MD [address] [place] [address] [place] [address] Re : Upper GI endoscopy procedure for Ashlee Boateng Dear Dr. Azevedo This procedure was performed on Monday, January 02, 2023. My impressions and recommendations are as follows: Impressions : - Normal esophagus. - Medium-sized hiatal hernia. - Non-bleeding gastric ulcers with no stigmata of bleeding. Biopsied. - A single bleeding angiodysplastic lesion in the duodenum. Injected. Treated with a heater probe. Recommendations : - Return patient to hospital conteh for ongoing care. - Clear liquid diet. - Continue present medications. My findings are described in the full procedure note, which is enclosed. If I can be of further assistance, please feel free to contact me at . Sincerely, Sumeet Bauer, 01/02/2023 4:55:13 PM This report has been signed electronically.
[2023-01-02] MEDS: Ipratropium/Albuterol Sulfate 3 ML AMPUL.NEB INHALATION (17:27)
[2023-01-02] MEDS: Gabapentin 100 MG Capsule PO (18:12)
[2023-01-02] MEDS: Furosemide 40 MG Tablet PO (18:12)
[2023-01-02] MEDS: Pantoprazole Sodium 40 MG Tablet PO (21:38)
[2023-01-02] MEDS: Colestipol 1 GM TABLET PO (21:38)
[2023-01-02 23:11] LABS: Bedside Glucose 154 mg/dL (74-106)
[2023-01-03] VITALS: RESP 18; O2SAT 100
[2023-01-03] MEDS: Vancomycin 125 MG/5 ML Susp PO.SYRINGE PO ×3 (00:43→12:27)
[2023-01-03 01:17] VITALS: RESP 18; O2SAT 96
[2023-01-03 04:13] VITALS: BP 132/67; PULSE 72; RESP 16; TEMP 37.1; O2SAT 95
[2023-01-03 06:00] VITALS: BMI 24.0
[2023-01-03] MEDS: Glucerna Shake 120 ML LIQUID PO ×2 (06:33→13:28)
[2023-01-03] MEDS: Sucralfate 1 GM Tablet PO ×2 (06:34→12:27)
[2023-01-03] MEDS: Acetaminophen 500 MG Tablet 1000 MG PO ×2 (06:34→13:27)
[2023-01-03] MEDS: Menthol/Lanolin/Calamine/Znox 113 GM Tube 1 APPLIC TOPICAL ×2 (06:35→13:29)
[2023-01-03 07:15] LABS: Bedside Glucose 99 mg/dL (74-106)
[2023-01-03 08:14] VITALS: O2SAT 97
[2023-01-03 08:40] LABS: Absolute Neutrophil Count 7.5 X10^3/uL (2.0-7.7); Basophil# 0.07 X10^3/uL; Basophil% 0.7 % (0-1); Eosinophil# 0.25 X10^3/uL; Eosinophils% 2.5 % (0-5); Hematocrit 28.3 % (37-47); Hemoglobin 8.2 g/dL (12.0-15.0); Lymphocyte % 14.8 % (19-41); Mean Corpuscular Hgb 23.2 pg (27.0-32.0); Mean Corpuscular Volume 80.2 fL (81-99); Mean Platelet Vol. 12.5 fl (6.2-12.0); Monocyte# 0.76 X10^3/uL; Monocyte% 7.5 % (0-10); NRBC Flagged by Analyzer 0.3 % (0-5); Neutrophil # 7.47 X10^3/uL (2.7-7.7); Neutrophil % 73.7 % (47-70); Platelet Count 349 K/mm3 (150-450); RBC Distribution Width CV 17.1 % (11.6-14.6); Red Blood Count 3.53 M/mm3 (4.2-5.4); White Blood Count 10.1 K/mm3 (4.4-11.0)
[2023-01-03 08:43] VITALS: BP 126/59; PULSE 73; RESP 18; TEMP 36.8; O2SAT 96
[2023-01-03 08:53] LABS: Anion Gap 8 (5-15); BUN 23 mg/dL (7-18); BUN/Creat Ratio 32.7 RATIO (10-20); Calcium,Total 8.1 mg/dL (8.5-10.1); Chloride 106 mmol/L (98-107); EST Glomerular Filtration Rate 84 mL/min (>60); Est Glom Filt Rate - Afr Amer 102 mL/min (>60); Estimated Creatinine Clearance 30.62 ml/min; Glucose 92 mg/dL (74-106); Potassium 3.7 mmol/L (3.5-5.1); Sodium Level 143 mmol/L (136-145)
[2023-01-03] MEDS: Gabapentin 100 MG Capsule PO ×2 (08:59→12:27)
[2023-01-03] MEDS: Aspirin 81 MG TAB.CHEW PO (08:59)
[2023-01-03] MEDS: Pantoprazole Sodium 40 MG Tablet PO (09:00)
[2023-01-03] MEDS: Furosemide 40 MG Tablet PO (09:00)
[2023-01-03] MEDS: Atenolol 50 MG Tablet PO (09:00)
[2023-01-03] MEDS: Empagliflozin 10 MG Tablet PO (09:00)
[2023-01-03] MEDS: Methimazole 5 MG Tablet 2.5 MG PO (09:00)
[2023-01-03] MEDS: Sertraline 100 MG Tablet PO (09:00)
[2023-01-03] MEDS: Colestipol 1 GM TABLET PO (10:41)
[2023-01-03] MEDS: 0.9% Saline Lock 10 ML Syringe IV (10:50)
--- NOTE | 2023-01-03 10:59 | PCM.DC.SUM ---
Providers Date of Admission: 12/31/22 Date of Discharge: 01/03/23 Primary Care Physician: Dr. Mary Azevedo MD Consultations 01/01/23 13:28 Consult: Gastroenterology Routine Consulting Provider: Ra Lizettehsaan Reason for Consult: Fe defiency anemia EMERGENT Consult: No MD Notified: Yes Date Notified: 01/01/23 Time Notified: 13:28 Method of Notification: Text Reason For Visit: ACUTE DECOMPENSATED EFrEF Diagnosis Discharge Diagnosis (1) Chronic diarrhea: Status: Chronic Code(s): K52.9 - Noninfective gastroenteritis and colitis, unspecified (2) Acute on chronic anemia: Status: Chronic Code(s): D64.9 - Anemia, unspecified Medications at Discharge Home Medications nitroglycerin 0.4 mg sublingual tablet 0.4 mg sublingual Q5M PRN Cardiac/Chest Pain #25 tabs 12/23/21 blood sugar diagnostic 12/30/21 blood-glucose meter 12/30/21 isosorbide mononitrate 60 mg tablet,extended release 24 hr 60 mg PO DAILY heart #90 tabs 02/07/22 acetaminophen 500 mg tablet (Tylenol Extra Strength) 1,000 mg PO Q6H PRN Pain 02/21/22 aspirin 81 mg chewable tablet 81 mg PO DAILY@0800 Heart health 05/12/22 gabapentin 100 mg capsule 100 mg PO TIDCM Neuropathy 05/12/22 lidocaine 5 % topical patch 1 patch topical DAILY Pain 05/12/22 menthol 0.44 %-zinc oxide 20.6 % topical ointment (Calmoseptine) 1 applic topical TID Skin protection 05/12/22 nutrition tx glu intol,lac-free,soy-fiber 0.06 gram-1.2 kcal/mL liquid (Glucerna 1.2 Norman) 120 ml PO 4X/DAY Supplement 05/12/22 tramadol 50 mg tablet 50 mg PO Q6H PRN PRN Pain Score 4-10 3 days #12 tabs 05/28/22 lidocaine 4 % topical patch (Aspercreme (lidocaine)) 1 patch topical DAILY PRN Pain 06/11/22 lisinopril 40 mg tablet 40 mg PO DAILY blood pressure 06/11/22 zinc oxide 20 % topical ointment 1 applic topical TID rash 06/11/22 cholecalciferol (vitamin D3) 1,250 mcg (50,000 unit) capsule 1,250 mcg PO .every other week vitamin 07/24/22 sertraline 100 mg tablet 100 mg PO DAILY mental health 08/06/22 colestipol 1 gram tablet 1 g PO BID 60 days #120 tabs 09/04/22 Prolia 60 mg/mL subcutaneous syringe (denosumab) 60 mg subcut [id number] #1 mL 11/06/22 methimazole 5 mg tablet 2.5 mg PO DAILY #15 tabs 11/06/22 amlodipine 5 mg tablet 5 mg PO DAILY blood pressure #90 tabs 11/18/22 furosemide 40 mg tablet (Lasix) 40 mg PO BID Fluid retention- take 4 to 6 hours apart #180 tabs 11/18/22 atenolol 50 mg tablet 50 mg PO DAILY heart health 11/20/22 potassium chloride 20 mEq tablet,extended release 20 meq PO DAILY supplement 11/20/22 vancomycin 125 mg capsule 125 mg PO Q6H #56 caps 12/12/22 empagliflozin 10 mg tablet (Jardiance) 10 mg PO DAILY #30 tabs 01/03/23 ferrous sulfate 325 mg (65 mg iron) tablet 325 mg PO BID #60 tabs 01/03/23 pantoprazole 40 mg tablet,delayed release 40 mg PO BID #60 tabs 01/03/23 sucralfate 1 gram tablet 1 g PO TIDAC #90 tabs 01/03/23 Hospital Course Operations None Procedures EGD, EKG and - (Chest x-ray) Summary of Care Provided Minutes Spent on Discharge: 38 Hospital Course: LARRY MALDONADO, is a 82 F who presented to the emergency department [facility] on 12/31/2022 with a chief complaint of shortness of breath.? The patient stated she had not been feeling well prior to going to bed the night prior to admission as she had a headache.? She stated she took some Tylenol and went to bed.? She woke up at about 4 AM and was feeling poorly again.? She went to the bathroom and urinated.? She stated she urinated a lot and had some diarrhea but that is chronic for her and not new.? She also felt somewhat nauseated and had some dry heaving but no emesis.? She went back and tried to lie down however she felt more short of breath and got up and went and sat in her living room however her shortness of breath worsened so she called her daughter who told her to call the squad.? She asked her daughter if she could call the squad for her so she did and told her to make sure the front door was open.? She was able to do all of this prior to the squad arrival.? She did complain of associated cough but no fever or chills.? She denied having any sick exposures.? She denied any significant weight gain and had been compliant with her home medications.? She has chronic diarrhea but no changes in her bowel habits.? She did complain of another bout of nausea with pending emesis this morning after arrival to emergency department as well but felt better at the time of my exam.? Evidently, when the squad arrived she was found to be hypoxic however the waveform was poor so we are unclear exactly what her oxygen saturation has been prior to arrival to the emergency department. Vital signs on arrival to emergency department demonstrated a temperature of 96.5, heart rate 101, blood pressure 153/104 respiratory rate was anywhere from 20-2 and her oxygen saturation was actually 98% on room air however the patient looks to becoming more respiratory distress so she was placed on CPAP which seems to resolve her respiratory distress.? At the time of my evaluation, she was able to be weaned back to 2 L nasal cannula.? She is not oxygen dependent at baseline.? CBC showed a mild leukocytosis with a white count of 12, a chronic normocytic anemia with a stable hemoglobin at 8.? She did have a mild left shift with a 74.3% neutrophilia.? An ABG was obtained and pH was 7.45, oxygen saturation was 100% with a PO2 of 6171 and a PCO2 of 34.5 on BiPAP.? Her chemistry panel showed normal electrolytes and renal function.? Her glucose was elevated at 228.? Troponin was obtained and found to be elevated at 188 however with review of previous troponins she has a chronic troponin elevation and currently is low if she has been in a long time.? Her BNP was elevated at 1014 however she had a higher BNP when she was seen approximately 10 days ago in the emergency department and had less respiratory issues and was able to be discharged home at that time.? I obtained a procalcitonin that was unremarkable.? UA is pending.? Chest x-ray shows chronic changes with no superimposed acute, real pulmonary process.? A D-dimer was obtained and found to be elevated so a CTA of her chest was performed and showed mild pulmonary edema with bilateral pleural effusions that were small and no evidence of pulmonary emboli or dissection.? She did have evidence of thoracolumbar compression fractures with previous kyphoplasty. She was admitted to the PCU and placed on a Lasix drip. She diuresed quite well and was feeling dramatically better with regards to her breathing by morning of the following day. At that time she complained of some dizziness and we noted that her hemoglobin dropped from 8.0 on the day of presentation to 7.4 when it had previously been stable in the range of 8-10. She was treated with meclizine for her dizziness was resolved the vertiginous complaint and we obtained iron studies and a stool Hemoccult. Her iron studies were consistent with iron deficiency anemia and she was lastly started on IV iron as her iron saturation was extremely low. She got 2 doses of IV iron and then we transition to oral iron. Her stool Hemoccult was positive for blood and gastroenterology was consulted. She was taken for an EGD on 01/02/2023 at which time she was found to have a normal esophagus, medium size hiatal hernia, nonbleeding gastric ulcers with no stigmata of recent bleeding that were biopsied and a single bleeding angiodysplastic lesion in the duodenum that was injected and treated with heater probe. Her hemoglobin had also dropped to 6.8 on that morning so she was transfused 1 unit of packed red blood cells. She was started on a clear liquid diet and advance as tolerated. She did overall quite well and her hemoglobin stabilized and was 8.2 on the day of discharge. I would recommend a repeat CBC be done in about a week. We will continue her aspirin and she was started on Protonix 40 mg p.o. twice daily as well as Carafate. With her heart failure, we discontinued her metformin and placed her on Jardiance. No other medication changes were made other than starting oral iron. I suggested she take her oral iron with vitamin C to assist with absorption. I have asked her to follow-up with Dr. Bauer from gastroenterology within the next 2 weeks for ongoing plan and biopsy results, cardiology to be seen within the next 4 weeks, and her primary care physician within the next 2 weeks. She had home health care coming in the home pending and this will be resumed at the time of discharge. She was discharged home in stable condition on 01/03/2023. Diagnoses: Shortness of breath without hypoxia Acute on chronic decompensated HFrEF secondary to ischemic cardiomyopathy-acute component resolved Acute on chronic microcytic anemia Angiodysplastic lesion of the duodenum-bleeding and treated Gastric ulcers Vertigo-resolved DM-2 Chronic diarrhea Oral pharyngeal dysphagia Hypertension Hypothyroidism History of sick sinus syndrome status post pacemaker CAD HPL Chronic troponin elevation Vitamin D deficiency Chronic diabetic neuropathy Urinary incontinence Osteoporosis Depression Anxiety Physical Exam Const alert, oriented x3, no apparent distress, average body habitus and well nourished Constitutional Narrative: Elderly white female that he up in bed watching television, appears comfortable and nontoxic General Appearance: cooperative, comfortable, well kempt and well developed Orientation / Consciousness: awake, oriented to person, oriented to place and oriented to time Exam Limitations: no limitations HEENT normocephalic, head/scalp atraumatic and moist oral mucous membranes; Negative for hearing grossly normal bilaterally HEENT Narrative: Edentulous, Mallampati 1-2, no thrush, patient is markedly hard of hearing Eyes PERRL and EOMs intact bilaterally Eyes Narrative: No scleral icterus, conjunctiva are pale bilaterally Neck no lymphadenopathy, supple, no JVD and no carotid bruits Neck Narrative: trachea midline, no thyroid enlargement Resp normal respiratory effort, no retractions, no use of accessory muscles and clear to auscultation bilaterally Auscultation: Negative for crackles, rhonchi or wheezes Cardio regular rate, regular rhythm, S1 normal heart sound, S2 normal heart sound, no rub, no gallops and no clicks; Negative for no murmurs Cardio Narrative: 2 out of 6 systolic murmur loudest at right upper sternal border GI normal to inspection, nondistended, normoactive bowel sounds, soft to palpation and non-tender Extremity no clubbing, cyanosis or edema Skin no wounds, skin turgor normal, no jaundice, no petechiae and no mottling Neuro oriented x3, CN's II-XII intact bilaterally, moves all extremities and no focal motor deficits Neuro Narrative: Generalized weakness-proximal greater than distal, sensation is normal Speech: speech normal Psych affect normal Psych Narrative: Very pleasant, appropriately interactive Weight / BMI Weight Weight: 55.9 kg Body Mass Index (BMI) 24.0 ABG / Lab / Microbiology Data Result Diagrams: 01/03/23 06:30 01/03/23 06:30 Laboratory: Laboratory Results - last 24 hr 01/02/23 09:20: Blood Type O POSITIVE, Antibody Screen NEGATIVE, Crossmatch See Detail 01/02/23 11:46: POC Glucose 110 H 01/02/23 15:19: POC Glucose 106 01/02/23 21:36: POC Glucose 154 H 01/03/23 06:30: WBC 10.1, RBC 3.53 L, Hgb 8.2 L, Hct 28.3 L, MCV 80.2 L, MCH 23.2 L, MCHC 29.0 L, RDW Std Deviation 49.0 H, RDW Coeff of Aubrie 17.1 H, Plt Count 349, MPV 12.5 H, Immature Gran % (Auto) 0.800, Neut % (Auto) 73.7 H, Lymph % (Auto) 14.8 L, [place] % (Auto) 7.5, Eos % (Auto) 2.5, Baso % (Auto) 0.7, Absolute Neuts (auto) 7.5, Absolute Lymphs (auto) 1.50, Nucleated RBC % 0.3 01/03/23 06:30: Sodium 143, Potassium 3.7, Chloride 106, Carbon Dioxide 29.0, Anion Gap 8, BUN 23 H, Creatinine 0.70, Estim Creat Clear Calc 30.62, Est GFR (MDRD) Af Amer 102, Est GFR (MDRD) Non-Af 84, BUN/Creatinine Ratio 32.7 H, Glucose 92, Calcium 8.1 L 01/03/23 06:32: POC Glucose 99 Microbiology: Microbiology 01/01/23 13:00 Stool Stool Occult Blood (JEFFERY) - Final Occult Blood Positive 12/31/22 15:45 Mucosa - Nose Respiratory Panel (PCR) - Final 12/31/22 09:49 Nasal Secretion SARS-CoV-2 & FLU Antigen (Rapid) - Final D/C Instructions Discharge Diet: Low fat / Low cholesterol, 1800 Calorie Control Diet, 8 Cup Fluid Restriction and 2000 mg Sodium Diet Discharge Activity: Return to Normal Activity Meaningful Use Info Meaningful Use Diagnoses (Choose all that apply): CHF CHF CEDRICK/ARB ordered at discharge?: Yes Documented LVEF (%): 25 Discharge Plan Admission Admit Date/Time: 12/31/22 12:54 Primary Reason for Your Visit: Shortness of breath Attending Provider: Saida Kimbrough Primary Care Provider: Mary Azevedo Consulting Providers: Sumeet Bauer Instructions Additional Instructions / Restrictions: 1. You were admitted and treated for shortness of breath which was predominantly due to heart failure. This quickly resolved with water pills but your blood counts were noted to be low and Dr. Bauer was consulted for scopes. A scope of the esophagus was performed on 01/02/2023 and found to have a normal esophagus and but 2 nonbleeding gastric ulcers as well as a bleeding lesion in the duodenum was found and treated. He will be discharged with 2 medications for this including Protonix which will be 40 mg twice daily and Carafate which she will take 4 times a day. 2. Please call Dr. Bauer's office on Thursday and call to schedule a follow-up appointment for biopsy results and ongoing treatment. 3. Please call your foiling machine operator office and schedule an appointment to be seen within the next month. No changes to your heart medications were made 4. We did stop your metformin and change you to a medication called Jardiance (empagliflozin) as it will be good for your blood sugars as well as for your heart failure 5. We also started iron supplementation to help build your blood supply back up. Please take your iron tablets with a small glass of orange juice or another substance that has vitamin C as this will help iron absorption Discharge Orders/Prescriptions Prescriptions: New sucralfate 1 gram Tablet 1 g PO TIDAC Qty: 90 1RF pantoprazole 40 mg Tablet,Delayed Release (Dr/Ec) 40 mg PO BID Qty: 60 1RF Jardiance 10 mg Tablet 10 mg PO DAILY Qty: 30 1RF ferrous sulfate 325 mg (65 mg iron) tablet 325 mg PO BID Qty: 60 1RF Continued acetaminophen [Tylenol Extra Strength] 500 mg tablet 1,000 mg PO Q6H PRN (Reason: Pain) sertraline 100 mg tablet 100 mg PO DAILY lidocaine [Aspercreme (lidocaine)] 4 % adhesive patch,medicated 1 patch topical DAILY PRN (Reason: Pain) lisinopril 40 mg tablet 40 mg PO DAILY zinc oxide 20 % ointment 1 applic topical TID cholecalciferol (vitamin D3) 1,250 mcg (50,000 unit) capsule 1,250 mcg PO .every other week methimazole 5 mg tablet 2.5 mg PO DAILY Qty: 15 6RF Prolia 60 mg/mL syringe 60 mg subcut [id number] Qty: 1 1RF colestipol 1 gram tablet 1 g PO BID 60 Days Qty: 120 1RF (DME) blood sugar diagnostic Strip See Rx Instructions .ROUTE .MEDSUPPLY Rx Instructions: test three times a day (DME) blood-glucose meter Kit See Rx Instructions .ROUTE .MEDSUPPLY Rx Instructions: As directed lidocaine 5 % adhesive patch,medicated 1 patch topical DAILY Protocol: *Topical Application Instructions APPLICATION INSTRUCTIONS: back aspirin 81 mg tablet,chewable 81 mg PO DAILY@0800 gabapentin 100 mg capsule 100 mg PO TIDCM Glucerna 1.2 Norman 0.06-1.2 gram-kcal/mL liquid 120 ml PO 4X/DAY menthol-zinc oxide [Calmoseptine] 0.44-20.6 % ointment 1 applic topical TID Protocol: *Topical Application Instructions APPLICATION INSTRUCTIONS: apply to groin and perineal tid tramadol 50 mg Tablet 50 mg PO Q6H PRN PRN (Reason: Pain Score 4-10) 3 Days Qty: 12 0RF atenolol 50 mg tablet 50 mg PO DAILY Rx Instructions: Take 1 tablet by mouth once daily for blood pressure potassium chloride 20 mEq tablet extended release 20 meq PO DAILY Rx Instructions: Take 1 tablet by mouth once daily nitroglycerin 0.4 mg tablet, sublingual 0.4 mg sublingual Q5M PRN (Reason: Cardiac/Chest Pain) Qty: 25 3RF isosorbide mononitrate 60 mg tablet extended release 24 hr 60 mg PO DAILY Qty: 90 3RF Rx Instructions: Take 1 tablet by mouth once daily amlodipine 5 mg tablet 5 mg PO DAILY Qty: 90 3RF Hold Instructions: HYPOTENSION furosemide [Lasix] 40 mg tablet 40 mg PO BID Qty: 180 3RF vancomycin 125 mg capsule 125 mg PO Q6H Qty: 56 0RF Discontinued metformin 500 mg tablet 500 mg PO DAILY Qty: 30 6RF Referrals / Follow Up: Mary Azevedo MD [Primary Care Provider] - Within 1 Week Sumeet Bauer DO [[facility] Staff - Active Staff] - Within 2 Weeks Roof,Alejandro H CLINICAL APPLICATIONS SPECIALIST, CLINICAL APPLICATIONS SPECIALIST-C [Med Staff - Adv Practice Prof] - Within 1 Month Disposition Disposition (needs filled in before D/C Order can be placed): Home Health Service Charges/Coding Visit Charges Inpatient E&M: 49334 Disch Hosp >30min
--- NOTE | 2023-01-03 11:00 | PCM.PROGNOTE ---
Subjective Subjective Patient underwent an upper endoscopy yesterday was discovered to have an upper GI bleed. She has not had any bleeding overnight. She is doing well without any abdominal pain. Her diarrhea is about the same. Objective Data Objective Data Vital Signs: Vital Signs Temp Pulse Resp BP Pulse Ox O2 Del Method O2 Flow Rate 98.0 F 60 18 112/50 L 95 Room Air 2 01/03/23 15:13 01/03/23 15:13 01/03/23 15:13 01/03/23 15:13 01/03/23 15:13 01/03/23 15:13 01/03/23 00:00 FiO2 40 12/31/22 17:34 Oxygen Flow Rate (L/min) 2 Oxygen Delivery Method Room Air Weight: 123 lb 3.814 oz Body Mass Index (BMI) 24.0 Intake & Output: Intake and Output for Last 24 Hours 01/01/23 01/02/23 01/03/23 23:59 23:59 23:59 Intake Total 1538.65 / 1538.65 1040 / 1260 970 / 970 Output Total 1450 / 1450 700 / 700 Balance 88.65 / 88.65 340 / 560 970 / 970 Lab / Micro Data Result Diagrams: 01/03/23 06:30 01/03/23 06:30 Labs: Laboratory Results - last 24 hr 01/02/23 09:20: Blood Type O POSITIVE, Antibody Screen NEGATIVE, Crossmatch See Detail 01/02/23 21:36: POC Glucose 154 H 01/03/23 06:30: WBC 10.1, RBC 3.53 L, Hgb 8.2 L, Hct 28.3 L, MCV 80.2 L, MCH 23.2 L, MCHC 29.0 L, RDW Std Deviation 49.0 H, RDW Coeff of Aubrie 17.1 H, Plt Count 349, MPV 12.5 H, Immature Gran % (Auto) 0.800, Neut % (Auto) 73.7 H, Lymph % (Auto) 14.8 L, [place] % (Auto) 7.5, Eos % (Auto) 2.5, Baso % (Auto) 0.7, Absolute Neuts (auto) 7.5, Absolute Lymphs (auto) 1.50, Nucleated RBC % 0.3 01/03/23 06:30: Sodium 143, Potassium 3.7, Chloride 106, Carbon Dioxide 29.0, Anion Gap 8, BUN 23 H, Creatinine 0.70, Estim Creat Clear Calc 30.62, Est GFR (MDRD) Af Amer 102, Est GFR (MDRD) Non-Af 84, BUN/Creatinine Ratio 32.7 H, Glucose 92, Calcium 8.1 L 01/03/23 06:32: POC Glucose 99 01/03/23 12:26: POC Glucose 193 H Micro: Microbiology 01/01/23 13:00 Stool Stool Occult Blood (JEFFERY) - Final Occult Blood Positive 12/31/22 15:45 Mucosa - Nose Respiratory Panel (PCR) - Final 12/31/22 09:49 Nasal Secretion SARS-CoV-2 & FLU Antigen (Rapid) - Final Physical Exam Const alert, oriented x3, no apparent distress, average body habitus and well nourished General Appearance: cooperative HEENT normocephalic, head/scalp atraumatic and moist oral mucous membranes; Negative for hearing grossly normal bilaterally HEENT Narrative: Moderate hearing loss, Mallampati 2, no thrush Resp normal respiratory effort, no retractions, no use of accessory muscles and clear to auscultation bilaterally Auscultation: Negative for crackles, rhonchi or wheezes Cardio regular rate, regular rhythm, S1 normal heart sound, S2 normal heart sound, no rub, no gallops and no clicks; Negative for no murmurs Cardio Narrative: 2 out of 6 systolic murmur loudest at right upper sternal border GI normal to inspection, nondistended, normoactive bowel sounds, soft to palpation and non-tender Extremity no clubbing, cyanosis or edema Neuro oriented x3, CN's II-XII intact bilaterally, moves all extremities and no focal motor deficits Neuro Narrative: Generalized weakness-proximal greater than distal, sensation is normal Speech: speech normal Psych affect normal Psych Narrative: Very pleasant, properly interactive Assessment & Plan Assessment/Plan (1) Chronic diarrhea: (2) Acute on chronic anemia: PLAN: Plan 1. Anemia-source of acute blood loss anemia was in the second portion of the duodenum. Her hemoglobin seems to be holding stable. Recommend DC on Protonix 40 mg p.o. twice daily and colestipol 1 g p.o. 3 times daily. Follow-up in the clinic for repeat upper endoscopy in approximately 2 months. Follow H&H every q. 5 days until stable. 2. Chronic diarrhea, secondary to recent C. difficile colitis with likely post infectious diarrhea. Last TSH was 0.62 Will check magnesium and phosphorus Check Stool for enteric panel, ova and parasite Continue colestipol 3. Rest of her chronic medical conditions including CAD status post stent/ischemic cardiomyopathy, EF 20 to 25%/chronic diastolic CHF/hyperlipidemia/PAD/status post pacemaker, remained stable but complicates overall care and management Continue amlodipine, aspirin, atenolol, isosorbide Charges/Coding Visit Charges Inpatient E&M: 94853 Subs Hosp L3
[2023-01-03] MEDS: Insulin Lispro 100 UNIT/ML INSULN.PEN SC (12:27)
[2023-01-03 12:46] LABS: Bedside Glucose 193 mg/dL (74-106)
[2023-01-03 15:13] VITALS: BP 112/50; PULSE 60; RESP 18; TEMP 36.7; O2SAT 95
--- NOTE | 2023-01-03 18:50 | NURSING ---
AGREE WITH SN Mast DOCUMENTATION NWITH STUDENT DURING PATIENT INTERACTIONS
== END 2023-01-03 16:51 | disposition home health service (06) | DRG 291 ==
LOC: ED 12:56 → PCU 13:35
PROVIDERS: Internal Medicine Gastroenterology; Admitting Provider Internal Medicine; Emergency Provider Emergency Medicine; PCP Internal Medicine; Visit Provider Internal Medicine
PROC: 0DJ08ZZ Inspection of Upper Intestinal Tract, Via Natural or Artificial Opening Endoscopic (ICD-10-PCS; CPT 43235; principal; 2023-01-02 15:50)
DX: I11.0 Hypertensive heart disease with heart failure (principal); K31.811 Angiodysplasia of stomach and duodenum with bleeding; I50.23 Acute on chronic systolic (congestive) heart failure; D62 Acute posthemorrhagic anemia; E11.40 Type 2 diabetes mellitus with diabetic neuropathy, unspecified; D50.9 Iron deficiency anemia, unspecified; E03.9 Hypothyroidism, unspecified; E11.51 Type 2 diabetes mellitus with diabetic peripheral angiopathy without gangrene; E11.65 Type 2 diabetes mellitus with hyperglycemia; I25.10 Atherosclerotic heart disease of native coronary artery without angina pectoris; I25.5 Ischemic cardiomyopathy; E78.5 Hyperlipidemia, unspecified; K52.9 Noninfective gastroenteritis and colitis, unspecified; I08.1 Rheumatic disorders of both mitral and tricuspid valves; F41.9 Anxiety disorder, unspecified; R42 Dizziness and giddiness; R77.8 Other specified abnormalities of plasma proteins; R13.12 Dysphagia, oropharyngeal phase; R32 Unspecified urinary incontinence; K25.9 Gastric ulcer, unspecified as acute or chronic, without hemorrhage or perforation; G89.29 Other chronic pain; Z20.822 Contact with and (suspected) exposure to COVID-19; M81.0 Age-related osteoporosis without current pathological fracture; F32.A Depression, unspecified; Z66 Do not resuscitate; Z79.82 Long term (current) use of aspirin; Z79.84 Long term (current) use of oral hypoglycemic drugs; Z95.5 Presence of coronary angioplasty implant and graft; Z95.0 Presence of cardiac pacemaker
CPT/HCPCS: 36415; 36600; 71045; 71275; 80048; 80053; 81001; 82274; 82728; 82803; 82962; 83540; 83550; 83735; 83880; 84100; 84145; 84484; 85025; 85379; 86850; 86900; 86901; 86920; 86922; 87428; 87633; 93005; 94002; 94640; 94762; 97162; 97166; 97530; 97802; 97803; 99252; 99285; J7050; J7120; P9016; Q9967; A4216; G0463; J1940; J2916

== ENCOUNTER 2023-02-07 10:02 | Emergency (ER) | payer MEDICARE, SELFPAY ==
[2023-02-07 10:03] VITALS: BP 151/127; PULSE 94; RESP 18; TEMP 36.2; O2SAT 99; BMI 24.4
--- NOTE | 2023-02-07 10:23 | EDS_ITS ---
HPI History of Present Illness Chief Complaint: Wound Narrative Narrative: 83-year-old female past medical history of chronic dark stools, diabetes that is diet controlled reportedly presents with her daughter because of ulceration on her right buttocks and right thigh. She denies any fevers or chills, no nausea or vomiting, no drainage from her wounds. She states she had a home health nurse visit her and told her to come to the emergency department regarding these ulcerations on her skin. Additionally, she has had black stools for over a month. She had GI bleeding in the past. She currently does not take any blood thinners. She denies any chest pain or shortness of breath but states that she is generally weak at times. She presents for evaluation of the ulcerations and black stool. Daughter states that the patient has a DO NOT RESUSCITATE Comfort Care arrest order. [facility] Medical History Abdominal pain Abnormal results of thyroid function studies Anemia Anxiety and depression Atherosclerosis of coronary artery of [place] heart without angina pectoris Back pain Back pain due to injury Bladder disease Cardiology follow-up encounter CHF (congestive heart failure) Chronic back pain Chronic diarrhea Closed left hip fracture Compression fracture Dark stools Depression Diabetes Diarrhea Dietary restriction Elevated troponin I level Essential hypertension [place] Fracture of left distal radius Frequent falls Gastroesophageal reflux disease History of CHF (congestive heart failure) History of echocardiogram History of hemorrhoids History of pulmonary embolus (PE) History of stress test Hyperlipidemia Hypertension Iron deficiency anemia Irritable bowel Ischemic cardiomyopathy Low back pain Lumbar compression fracture Lumbar spinal stenosis Memory deficit Myocardial infarct Non-smoker Nursing assistance required Oropharyngeal dysphagia Orthopedic aftercare Osteoporosis Post-menopausal Pulmonary embolism Shortness of breath on exertion 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) Type II diabetes mellitus Vitamin D deficiency Wears dentures Wears glasses Wears hearing aid Home Medications nitroglycerin 0.4 mg sublingual tablet 0.4 mg sublingual Q5M PRN Cardiac/Chest Pain #25 tabs 12/23/21 [Rx Last Taken Unknown] blood sugar diagnostic 12/30/21 [History Last Taken Unknown] blood-glucose meter 12/30/21 [History Last Taken Unknown] isosorbide mononitrate 60 mg tablet,extended release 24 hr 60 mg PO DAILY heart #90 tabs 02/07/22 [Rx Last Taken Unknown] acetaminophen 500 mg tablet (Tylenol Extra Strength) 1,000 mg PO Q6H PRN Pain 02/21/22 [History Last Taken Unknown] aspirin 81 mg chewable tablet 81 mg PO DAILY@0800 Heart health 05/12/22 [History Last Taken Unknown] gabapentin 100 mg capsule 100 mg PO TIDCM Neuropathy 05/12/22 [History Last Taken Unknown] lidocaine 5 % topical patch 1 patch topical DAILY Pain 05/12/22 [History Last Taken Unknown] menthol 0.44 %-zinc oxide 20.6 % topical ointment (Calmoseptine) 1 applic topical TID Skin protection 05/12/22 [History Last Taken Unknown] nutrition tx glu intol,lac-free,soy-fiber 0.06 gram-1.2 kcal/mL liquid (Glucerna 1.2 [place]) 120 ml PO 4X/DAY Supplement 05/12/22 [History Last Taken Unknown] tramadol 50 mg tablet 50 mg PO Q6H PRN PRN Pain Score 4-10 3 days #12 tabs 05/28/22 [Rx Last Taken Unknown] lidocaine 4 % topical patch (Aspercreme (lidocaine)) 1 patch topical DAILY PRN Pain 06/11/22 [History Last Taken Unknown] lisinopril 40 mg tablet 40 mg PO DAILY blood pressure 06/11/22 [History Last Taken Unknown] zinc oxide 20 % topical ointment 1 applic topical TID rash 06/11/22 [History Last Taken Unknown] cholecalciferol (vitamin D3) 1,250 mcg (50,000 unit) capsule 1,250 mcg PO .every other week vitamin 07/24/22 [History Last Taken Unknown] sertraline 100 mg tablet 100 mg PO DAILY mental health 08/06/22 [History Last Taken Unknown] Prolia 60 mg/mL subcutaneous syringe (denosumab) 60 mg subcut [id number] #1 mL 0 11/06/22 [Rx Last Taken 2 Months Ago ~11/02/22] methimazole 5 mg tablet 2.5 mg PO DAILY #15 tabs 11/06/22 [Rx Last Taken Unknown] amlodipine 5 mg tablet 5 mg PO DAILY blood pressure #90 tabs 11/18/22 [Rx Last Taken Unknown] furosemide 40 mg tablet (Lasix) 40 mg PO BID Fluid retention- take 4 to 6 hours apart #180 tabs 11/18/22 [Rx Last Taken Unknown] atenolol 50 mg tablet 50 mg PO DAILY [facility] 11/20/22 [History Last Taken Unknown] vancomycin 125 mg capsule 125 mg PO Q6H #56 caps 12/12/22 [Rx Last Taken Unknown] colestipol 1 gram tablet 1 g PO BID #120 tabs 01/06/23 [Rx Last Taken Unknown] empagliflozin 10 mg tablet (Jardiance) 10 mg PO DAILY #90 tabs 01/20/23 [Rx Last Taken Unknown] potassium chloride 20 mEq tablet,extended release 20 meq PO DAILY supplement #90 tabs 01/23/23 [Rx Last Taken Unknown] ferrous sulfate 325 mg (65 mg iron) tablet 325 mg PO BID #60 tabs 02/03/23 [Rx Last Taken Unknown] pantoprazole 40 mg tablet,delayed release 40 mg PO BID #60 tabs 02/03/23 [Rx Last Taken Unknown] sucralfate 1 gram tablet 1 g PO TIDAC #90 tabs 02/03/23 [Rx Last Taken Unknown] amoxicillin 875 mg-potassium clavulanate 125 mg tablet 1 tab PO BID #20 tabs 02/07/23 [Rx Last Taken Unknown] Allergy/AdvReac Type Severity Reaction Status Date / Time latex Allergy Other Verified 02/07/23 10:06 Family History Father CVA (cerebral vascular accident) Mother Heart disease CAD (coronary artery disease) Sister CAD (coronary artery disease) Daughter CAD (coronary artery disease) Myocardial infarction Daughter Diabetes Surgical History H/O: hysterectomy History of back surgery History of cardiac catheterization History of carpal tunnel release History of coronary artery stent placement History of kyphoplasty History of permanent cardiac pacemaker placement (12/30/21) Hx of cholecystectomy Hx of knee surgery S/P hysterectomy Social History household members: none housing: house Smoking Status: Never smoker alcohol intake: never substance use type: does not use caffeine: No what type of physical activity do you participate in: none do you feel safe at home: Yes ROS ROS ED ROS Narrative Constitutional: No fever, no chills. HEENT: No sore throat. No neck pain. No loss of vision. No rhinorrhea. Cardiovascular: No chest pain. No palpitations. No pedal edema. Respiratory: No cough, no shortness of breath. Abdominal: No abdominal pain. No nausea. No vomiting. Genitourinary: No dysuria. No hematuria. Musculoskeletal: No myalgias. No arthralgias. Neurologic: No headaches. No dizziness. No lightheadedness. Skin: No rash. No change in color. Ulceration on right thigh is painful to touch, and on buttocks. Psychiatric: No depression. No anxiety. EXAM Physical Exam Narrative Exam Narrative: Afebrile. Vital signs noted. HEENT: Normocephalic. Atraumatic. PERRL, EOMI. Neck soft and supple. No point tenderness or step off. Cardiovascular: Regular rate and rhythm. No murmurs, rubs, or gallops appreciated. Respiratory: No tachypnea. Lungs clear to auscultation bilaterally. Gastrointestinal: Abdomen soft, nontender, with normoactive bowel sounds. No rebound or guarding. Neurological: Awake. Alert. Nonfocal, nonlateralizing. Skin: No rash. Normal color. No pallor. Positive ulceration right thigh with induration, no purulent drainage, mild tenderness to palpation. Also noted healing ulceration on right buttocks. She does have mild perirectal skin irritation and breakdown but no noted fluctuance. Musculoskeletal: No pedal edema. Full range of motion extremities. Const Vital Signs: 02/07/23 10:03 02/07/23 12:30 02/07/23 12:47 Temperature 97.2 F L Temperature Source Temporal Pulse Rate 94 78 Pulse Rate [Lying] 85 Pulse Rate [Sitting (for 1 minute prior to obtaining)] 92 Pulse Rate [Standing (for 1 minute prior to obtaining)] 72 Respiratory Rate 18 16 Blood Pressure 151/127 H 154/87 H Blood Pressure [Lying] 160/73 H Blood Pressure [Sitting (for 1 minute prior to obtaining)] 164/102 H Blood Pressure [Standing (for 1 minute prior to obtaining)] 197/142 H Blood Pressure Mean 135 109 Blood Pressure Mean [Lying] 102 Blood Pressure Mean [Sitting (for 1 minute prior to obtaining)] 122 Blood Pressure Mean [Standing (for 1 minute prior to obtaining)] 160 Pulse Ox 99 100 Oxygen Delivery Method Room Air Room Air MDM MDM MDM Narrative Medical decision making narrative: In review of her medication list, she is not on medication for diabetes except for Prolia. I do not feel that these are infected ulcerations, but given her past medical history of diabetes, she will most likely require antibiotics. Regarding her dark stool, this is more of a chronic problem and she has had intermittent GI bleeding. Given her report of weakness I will obtain a CBC to make sure she is not profoundly anemic requiring blood transfusion. Additionally, they report that the nurse thinks that there is a different kind of ulceration on her buttocks/backside. I do think that she has more skin breakdown of the perirectal area. It may be more of a decubitus type ulceration. Comprehensive work-up was pursued. Lactic acid will be obtained to help rule out sepsis, but she is not exhibiting any signs of SIRS criteria currently with the exception of slightly elevated pulse of 94. Her initial laboratory work was hemolyzed. In review of her CBC, she has a normal white count of 6.2, hemoglobin normal at 12.2. Platelet count normal at 221. In review of her BMP, she has an elevated BUN of 25, with a normal creatinine. Lactic acid is slightly elevated at 2.2 which I think may be secondary to something else besides sepsis including mild dehydration as she has slightly elevated chloride. Although her BUN is elevated and she reports black stool, she and her daughter state that this is chronic for her, and that she has followed up with gastroenterology in the past, and her black stools are intermittent. I do not feel that she needs to be admitted for a GI bleed. She was given her first dose of Augmentin here in the emergency department and prescription written for the next 10 days. She will follow-up with her primary care physician regarding her wound ulcer on her right thigh, and her buttocks. She may have a perianal decubitus ulceration that is beginning, but she reports no pain with defecation. I do not feel that CT imaging is indicated for this, and I do feel that she can be discharged safely home. She was also given instructions for evaluation by wound care center. Return instructions to the emergency department were reviewed. Patient and family are agreeable to the plan. Disposition is discharged home in stable condition. History & Record Review Discussion w/independent historian: Patient and Family Additional record(s) reviewed:: Prior ED visit and Prior labs Lab Data Attestation: I reviewed the patient's lab results. Labs: Laboratory Results - last 24 hr 02/07/23 02/07/23 02/07/23 10:45 10:45 10:45 WBC Cancelled Corrected WBC Cancelled RBC Cancelled Hgb Cancelled Hct Cancelled MCV Cancelled MCH Cancelled MCHC Cancelled RDW Std Deviation Cancelled RDW Coeff of Aubrie Cancelled Plt Count Cancelled MPV Cancelled Immature Gran % (Auto) Cancelled Neut % (Auto) Cancelled Lymph % (Auto) Cancelled [place] % (Auto) Cancelled Eos % (Auto) Cancelled Baso % (Auto) Cancelled Absolute Neuts (auto) Cancelled Absolute Lymphs (auto) Cancelled Total Counted Cancelled Neutrophils % (Manual) Cancelled Band Neutrophils % Cancelled Lymphocytes % (Manual) Cancelled Monocytes % (Manual) Cancelled Eosinophils % (Manual) Cancelled Basophils % (Manual) Cancelled Metamyelocytes % Cancelled Myelocytes % Cancelled Promyelocytes % Cancelled Blast Cells % Cancelled Plasma Cell % (Manual) Cancelled Other Cells % Cancelled Nucleated RBC % Cancelled Nucleated RBCs/100 WBC Cancelled Differential Comment Cancelled Diff Path Review Cancelled Hypersegmented Neuts Cancelled Atypical Lymphocytes Cancelled Reactive Lymphocytes Cancelled Smudge Cells Cancelled Toxic Granulation Cancelled Toxic Vacuolation Cancelled Dohle Bodies Cancelled Gala Rods Cancelled Platelet Estimate Cancelled Plt Morphology Comment Cancelled RBC Morphology Cancelled Polychromasia Cancelled Hypochromasia Cancelled Poikilocytosis Cancelled Basophilic Stippling Cancelled Anisocytosis Cancelled Microcytosis Cancelled Macrocytosis Cancelled Spherocytes Cancelled Sickle Cells Cancelled Target Cells Cancelled Tear Drop Cells Cancelled Ovalocytes Cancelled Stomatocytes Cancelled [place] Bodies Cancelled [place] Cells Cancelled Bite Cells Cancelled Crenated Cell Cancelled Acanthocytes (Spur) Cancelled Rouleaux Cancelled Schistocytes Cancelled Sodium Cancelled Potassium Cancelled Chloride Cancelled Carbon Dioxide Cancelled Anion Gap Cancelled BUN Cancelled Creatinine Cancelled Estim Creat Clear Calc Cancelled Est GFR (MDRD) Af Amer Cancelled Est GFR (MDRD) Non-Af Cancelled BUN/Creatinine Ratio Cancelled Glucose Cancelled Lactic Acid Cancelled Calcium Cancelled 02/07/23 02/07/23 02/07/23 11:47 11:47 12:05 WBC 6.2 Corrected WBC RBC 4.58 Hgb 12.2 Hct 41.0 MCV 89.5 MCH 26.6 L MCHC 29.8 L RDW Std Deviation 66.4 H RDW Coeff of Aubrie 20.5 H Plt Count 221 MPV 12.3 H Immature Gran % (Auto) 0.300 Neut % (Auto) 62.4 Lymph % (Auto) 25.2 [place] % (Auto) 6.1 Eos % (Auto) 5.2 H Baso % (Auto) 0.8 Absolute Neuts (auto) 3.9 Absolute Lymphs (auto) 1.56 Total Counted Neutrophils % (Manual) Band Neutrophils % Lymphocytes % (Manual) Monocytes % (Manual) Eosinophils % (Manual) Basophils % (Manual) Metamyelocytes % Myelocytes % Promyelocytes % Blast Cells % Plasma Cell % (Manual) Other Cells % Nucleated RBC % 0 Nucleated RBCs/100 WBC Differential Comment SCANNED Diff Path Review Hypersegmented Neuts Atypical Lymphocytes Reactive Lymphocytes Smudge Cells Toxic Granulation Toxic Vacuolation Dohle Bodies Gala Rods Platelet Estimate Plt Morphology Comment RBC Morphology Polychromasia Hypochromasia Poikilocytosis Basophilic Stippling Anisocytosis 2+ Microcytosis 1+ Macrocytosis 1+ Spherocytes Sickle Cells Target Cells Tear Drop Cells Ovalocytes Stomatocytes [place] Bodies [place] Cells Bite Cells Crenated Cell Acanthocytes (Spur) Rouleaux Schistocytes Sodium 139 Potassium 4.5 Chloride 111 H Carbon Dioxide 25.0 Anion Gap 3 L BUN 25 H Creatinine 0.57 Estim Creat Clear Calc 30.62 Est GFR (MDRD) Af Amer 130 Est GFR (MDRD) Non-Af 107 BUN/Creatinine Ratio 43.7 H Glucose 133 H Lactic Acid 2.2 H* Calcium 9.4 Discharge Plan Triage Chief Complaint: Wound ED Provider: Puneet Frye Dx/Rx/DC Orders Clinical Impression: Ulcer of right thigh, Decubitus ulcer of buttock, Decubitus ulcer of perianal region, Black stools Instructions: ED Pressure Injury, ED Wound Care Prescriptions: New amoxicillin-pot clavulanate 875-125 mg tablet 1 tab PO BID Qty: 20 0RF No Action acetaminophen [Tylenol Extra Strength] 500 mg tablet 1,000 mg PO Q6H PRN (Reason: Pain) sertraline 100 mg tablet 100 mg PO DAILY lidocaine [Aspercreme (lidocaine)] 4 % adhesive patch,medicated 1 patch topical DAILY PRN (Reason: Pain) lisinopril 40 mg tablet 40 mg PO DAILY zinc oxide 20 % ointment 1 applic topical TID cholecalciferol (vitamin D3) 1,250 mcg (50,000 unit) capsule 1,250 mcg PO .every other week methimazole 5 mg tablet 2.5 mg PO DAILY Qty: 15 6RF Prolia 60 mg/mL syringe 60 mg subcut [id number] Qty: 1 1RF Jardiance 10 mg tablet 10 mg PO DAILY Qty: 90 3RF (DME) blood sugar diagnostic Strip See Rx Instructions .ROUTE .MEDSUPPLY Rx Instructions: test three times a day (DME) blood-glucose meter Kit See Rx Instructions .ROUTE .MEDSUPPLY Rx Instructions: As directed lidocaine 5 % adhesive patch,medicated 1 patch topical DAILY Protocol: *Topical Application Instructions APPLICATION INSTRUCTIONS: back aspirin 81 mg tablet,chewable 81 mg PO DAILY@0800 gabapentin 100 mg capsule 100 mg PO TIDCM Glucerna 1.2 [place] 0.06-1.2 gram-kcal/mL liquid 120 ml PO 4X/DAY menthol-zinc oxide [Calmoseptine] 0.44-20.6 % ointment 1 applic topical TID Protocol: *Topical Application Instructions APPLICATION INSTRUCTIONS: apply to groin and perineal tid tramadol 50 mg Tablet 50 mg PO Q6H PRN PRN (Reason: Pain Score 4-10) 3 Days Qty: 12 0RF atenolol 50 mg tablet 50 mg PO DAILY Rx Instructions: Take 1 tablet by mouth once daily for blood pressure nitroglycerin 0.4 mg tablet, sublingual 0.4 mg sublingual Q5M PRN (Reason: Cardiac/Chest Pain) Qty: 25 3RF isosorbide mononitrate 60 mg tablet extended release 24 hr 60 mg PO DAILY Qty: 90 3RF Rx Instructions: Take 1 tablet by mouth once daily amlodipine 5 mg tablet 5 mg PO DAILY Qty: 90 3RF Hold Instructions: HYPOTENSION furosemide [Lasix] 40 mg tablet 40 mg PO BID Qty: 180 3RF vancomycin 125 mg capsule 125 mg PO Q6H Qty: 56 0RF colestipol 1 gram tablet 1 g PO BID Qty: 120 3RF potassium chloride 20 mEq tablet extended release 20 meq PO DAILY Qty: 90 2RF Rx Instructions: Take 1 tablet by mouth once daily ferrous sulfate 325 mg (65 mg iron) tablet 325 mg PO BID Qty: 60 1RF pantoprazole 40 mg tablet,delayed release (DR/EC) 40 mg PO BID Qty: 60 1RF sucralfate 1 gram tablet 1 g PO TIDAC Qty: 90 1RF Primary Care Provider: Mary Azevedo Referrals: Mary Azevedo MD [Primary Care Provider] - 2 Days Wound,Center [Non-Staff] - 3-5 Days Activity Restrictions/Additional Instructions: Take your antibiotics as prescribed. Follow-up with your primary care physician in the next few days for wound checks. You may need to be seen by the wound care center. Regarding her black stools, follow-up with gastroenterology as needed, but this may be a chronic problem for you as you described. Disposition Disposition: Home, Self Care
[2023-02-07 12:11] LABS: Anion Gap 3 (5-15); BUN 25 mg/dL (7-18); BUN/Creat Ratio 43.7 RATIO (10-20); Calcium,Total 9.4 mg/dL (8.5-10.1); Chloride 111 mmol/L (98-107); Creatinine, Serum 0.57 mg/dL (0.55-1.02); EST Glomerular Filtration Rate 107 mL/min (>60); Est Glom Filt Rate - Afr Amer 130 mL/min (>60); Estimated Creatinine Clearance 30.62 ml/min; Glucose 133 mg/dL (74-106); Potassium 4.5 mmol/L (3.5-5.1); Sodium Level 139 mmol/L (136-145)
[2023-02-07 12:14] LABS: Absolute Lymphocyte Count 1.56 X10^3/uL (0.83-4.51); Absolute Neutrophil Count 3.9 X10^3/uL (2.0-7.7); Basophil# 0.05 X10^3/uL; Basophil% 0.8 % (0-1); Eosinophil# 0.32 X10^3/uL; Eosinophils% 5.2 % (0-5); Hemoglobin 12.2 g/dL (12.0-15.0); Lymphocyte # 1.56 X10^3/ul (0.83-4.51); Lymphocyte % 25.2 % (19-41); Mean Corp Hgb Conc 29.8 g/dL (32-36); Mean Corpuscular Hgb 26.6 pg (27.0-32.0); Mean Corpuscular Volume 89.5 fL (81-99); Mean Platelet Vol. 12.3 fl (6.2-12.0); Monocyte# 0.38 X10^3/uL; Monocyte% 6.1 % (0-10); NRBC Flagged by Analyzer 0 % (0-5); Neutrophil # 3.86 X10^3/uL (2.7-7.7); Neutrophil % 62.4 % (47-70); POSITIVE MORPHOLOGY YES; Platelet Count 221 K/mm3 (150-450); RBC Distribution Width CV 20.5 % (11.6-14.6); RBC Distribution Width SD 66.4 fl (35.1-43.9); Red Blood Count 4.58 M/mm3 (4.2-5.4); White Blood Count 6.2 K/mm3 (4.4-11.0)
[2023-02-07 12:22] LABS: Differential Indicated SCAN CRITERIA MET
[2023-02-07 12:24] LABS: Lactic Acid 2.2 mmol/L (0.4-1.9)
[2023-02-07 12:30] VITALS: BP 160/73; BP 164/102; BP 197/142; PULSE 72; PULSE 85; PULSE 92
[2023-02-07 12:44] LABS: Anisocytosis 2+; Differential Comment SCANNED; Macrocytosis 1+; Microcytosis 1+
[2023-02-07] MEDS: 0.9% Normal Saline 1,000 ML 999 ML IV (12:46)
[2023-02-07 12:47] VITALS: BP 154/87; PULSE 78; RESP 16; O2SAT 100
[2023-02-07 14:00] VITALS: BP 148/82; PULSE 75; RESP 14; O2SAT 99
[2023-02-07] MEDS: Amox/Clavulanate 875 MG Tablet PO (14:31)
[2023-02-07 14:32] VITALS: BP 138/74; PULSE 78; RESP 16; TEMP 36.7; O2SAT 99
[2023-02-07 15:52] LABS: Reflex Lactate? Y
== END 2023-02-07 14:33 | disposition home or self-care (01) ==
PROVIDERS: Emergency Provider Emergency Medicine; PCP Internal Medicine; Visit Provider Emergency Medicine
DX: L97.119 Non-pressure chronic ulcer of right thigh with unspecified severity (principal); L89.310 Pressure ulcer of right buttock, unstageable; I11.0 Hypertensive heart disease with heart failure; I50.9 Heart failure, unspecified; E11.9 Type 2 diabetes mellitus without complications; E78.5 Hyperlipidemia, unspecified; I25.10 Atherosclerotic heart disease of native coronary artery without angina pectoris; K92.2 Gastrointestinal hemorrhage, unspecified; Z66 Do not resuscitate
CPT/HCPCS: 36415; 80048; 83605; 85025; 96360; 99284; J7030; A4216

== ENCOUNTER 2023-04-10 12:55 | Outpatient (RCR) | payer MEDICARE, SELFPAY ==
[2023-04-10 13:12] VITALS: BP 163/70; PULSE 71; RESP 18; TEMP 35.9; BMI 24.4
--- NOTE | 2023-04-16 09:27 | PCM.WC.HP ---
History of Present Illness Date of Service: 04/10/23 Chief Complaint: R thigh/buttock wound History of Wound: Patient is an 83-year-old female who presents today for evaluation and management of a wound on her right proximal posterior thigh near the gluteal fold. This wound has been present since January. She was evaluated in the emergency room on February 07, 2023 at which time the wound did not appear infected/fluctuant/indurated per ER note. At that time she also had a similar wound on the anterior aspect of her thigh which has since healed. She has also been referred to the wound care center but did not follow through with this. On 03/28/2023 she was seen at urgent care for the same wound at which point it was noted to have the appearance of a boil/abscess. She was prescribed a course of Keflex which she has not taken. She cannot think of an inciting factor for this wound. She does have frequent falls, but does not recall having fallen or otherwise injured this area. She does sit much of the day. Today, the wound appears erythematous, swollen/indurated/fluctuant, and with scab overlying. It is acutely tender to touch. 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 [facility] Medical History (Updated 04/16/23 @ 12:11 by NADIRA Vazquez) Abdominal pain Abnormal results of thyroid function studies Anemia Anxiety and depression Atherosclerosis of coronary artery of [place] heart without angina pectoris Back pain Back pain due to injury Bladder disease Boil of lower extremity Cardiology follow-up encounter CHF (congestive heart failure) Chronic back pain Chronic diarrhea Closed left hip fracture Compression fracture Dark stools Depression Diabetes Diarrhea Dietary restriction Elevated troponin I level Essential hypertension [place] Fracture of left distal radius Frequent falls Gastroesophageal reflux disease History of CHF (congestive heart failure) History of echocardiogram History of hemorrhoids History of pulmonary embolus (PE) History of stress test Hyperlipidemia Hypertension Iron deficiency anemia Irritable bowel Ischemic cardiomyopathy Low back pain Lumbar compression fracture Lumbar spinal stenosis Memory deficit Myocardial infarct Non-smoker Nursing assistance required Oropharyngeal dysphagia Orthopedic aftercare Osteoporosis Post-menopausal Pulmonary embolism Shortness of breath on exertion 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) Type II diabetes mellitus Ulcer of right lower extremity Vitamin D deficiency Wears dentures Wears glasses Wears hearing aid Home Medications nitroglycerin 0.4 mg sublingual tablet 0.4 mg sublingual Q5M PRN Cardiac/Chest Pain #25 tabs 12/23/21 [Rx Last Taken Unknown] blood sugar diagnostic 12/30/21 [History Last Taken Unknown] blood-glucose meter 12/30/21 [History Last Taken Unknown] acetaminophen 500 mg tablet (Tylenol Extra Strength) 1,000 mg PO Q6H PRN Pain 02/21/22 [History Last Taken Unknown] aspirin 81 mg chewable tablet 81 mg PO DAILY@0800 Heart health 05/12/22 [History Last Taken Unknown] gabapentin 100 mg capsule 100 mg PO TIDCM Neuropathy 05/12/22 [History Last Taken Unknown] lidocaine 5 % topical patch 1 patch topical DAILY Pain 05/12/22 [History Last Taken Unknown] menthol 0.44 %-zinc oxide 20.6 % topical ointment (Calmoseptine) 1 applic topical TID Skin protection 05/12/22 [History Last Taken Unknown] nutrition tx glu intol,lac-free,soy-fiber 0.06 gram-1.2 kcal/mL liquid (Glucerna 1.2 [place]) 120 ml PO 4X/DAY Supplement 05/12/22 [History Last Taken Unknown] tramadol 50 mg tablet 50 mg PO Q6H PRN PRN Pain Score 4-10 3 days #12 tabs 05/28/22 [Rx Last Taken Unknown] lidocaine 4 % topical patch (Aspercreme (lidocaine)) 1 patch topical DAILY PRN Pain 06/11/22 [History Last Taken Unknown] lisinopril 40 mg tablet 40 mg PO DAILY blood pressure 06/11/22 [History Last Taken Unknown] zinc oxide 20 % topical ointment 1 applic topical TID rash 06/11/22 [History Last Taken Unknown] cholecalciferol (vitamin D3) 1,250 mcg (50,000 unit) capsule 1,250 mcg PO .every other week vitamin 07/24/22 [History Last Taken Unknown] sertraline 100 mg tablet 100 mg PO DAILY mental health 08/06/22 [History Last Taken Unknown] Prolia 60 mg/mL subcutaneous syringe (denosumab) 60 mg subcut [id number] #1 mL 11/06/22 [Rx Last Taken 2 Months Ago ~11/02/22] methimazole 5 mg tablet 2.5 mg (1/2 x 5 mg) PO DAILY #15 tabs 11/06/22 [Rx Last Taken Unknown] amlodipine 5 mg tablet 5 mg PO DAILY blood pressure #90 tabs 11/18/22 [Rx Last Taken Unknown] furosemide 40 mg tablet (Lasix) 40 mg PO BID Fluid retention- take 4 to 6 hours apart #180 tabs 11/18/22 [Rx Last Taken Unknown] atenolol 50 mg tablet 50 mg PO DAILY heart health 11/20/22 [History Last Taken Unknown] colestipol 1 gram tablet 1 g PO BID #120 tabs 01/06/23 [Rx Last Taken Unknown] empagliflozin 10 mg tablet (Jardiance) 10 mg PO DAILY #90 tabs 01/20/23 [Rx Last Taken Unknown] potassium chloride 20 mEq tablet,extended release 20 meq PO DAILY supplement #90 tabs 01/23/23 [Rx Last Taken Unknown] isosorbide mononitrate 60 mg tablet,extended release 24 hr 60 mg PO DAILY heart #90 tabs 03/03/23 [Rx Last Taken Unknown] ferrous sulfate 325 mg (65 mg iron) tablet 325 mg PO BID #60 tabs 03/26/23 [Rx Last Taken Unknown] sucralfate 1 gram tablet 1 g PO TIDAC #90 tabs 03/26/23 [Rx Last Taken Unknown] Allergy/AdvReac Type Severity Reaction Status Date / Time latex Allergy Other Verified 03/28/23 11:27 Family History Father CVA (cerebral vascular accident) Mother Heart disease CAD (coronary artery disease) Sister CAD (coronary artery disease) Daughter CAD (coronary artery disease) Myocardial infarction Daughter Diabetes Surgical History H/O: hysterectomy History of back surgery History of cardiac catheterization History of carpal tunnel release History of coronary artery stent placement History of kyphoplasty History of permanent cardiac pacemaker placement (12/30/21) Hx of cholecystectomy Hx of knee surgery S/P hysterectomy Social History household members: none housing: house Smoking Status: Smoker, status unknown alcohol intake: never substance use type: does not use caffeine: No what type of physical activity do you participate in: none do you feel safe at home: Yes Vital Signs Vital Signs Vital Signs: Weight Weight: 125 lb Body Mass Index (BMI) 24.4 Physical Exam Const alert, oriented x3 and no apparent distress General Appearance: cooperative HEENT normocephalic, head/scalp atraumatic, hearing grossly normal bilaterally, external ears normal and external nose normal Eyes EOMs intact bilaterally General Eye: normal appearance of both eyes Resp normal respiratory effort, no retractions and no use of accessory muscles Effort and Inspection: able to speak in complete sentences; Negative for labored, stridor or audible wheezes Cardio regular rate and regular rhythm Extremity no clubbing, cyanosis or edema Extremity Narrative: Wound as noted below. Skin Wound Narrative: Wound to the proximal posterior R thigh near the gluteal fold. Swollen and fluctuant/indurated to palpation. The wound bed had significant amount of slough and adherent dried drainage. Acutely tender to palpation. Neuro oriented x3, CN's II-XII intact bilaterally and moves all extremities Speech: speech normal Psych Appearance: grossly normal Attitude: calm Speech: normal speech Mood & Affect: euthymic mood Debridement Note Debridement Note Wound debrided: R proximal posterior thigh Laterality: Right Type of Debridement: Excisional debridement Anesthesia Used: - (Local injection with 2% lidocaine solution) Depth: Down to and including healthy tissue and in the subcutaneous layer Percentage of wound debrided: 100 Instrument Used: 5mm curette, #10 blade and Forceps Tissue Removed: slough, nonviable tissue Severity: Fat Layer Exposed Amount of bleeding with debridement: Mild Bleeding Controlled with: Compression and gauze Patient tolerated procedure: Patient tolerated procedure well Debridement Free Text: Incision and Drainage was performed in addition to debridement. Post-Debridement Measurements and Additional Note: Post-Debridement Measurements/Treatment WC - Nurse 1 - General Ulcer Assessment Start: 04/10/23 12:58 Freq: Status: Active Protocol: YFN Activity Type Activity Date Activity User E-sign Co-sign Detail Recorded Client Recorded Date Recorded By Document 04/10/23 13:12 [id number] 04/10/23 13:38 KW 04/10/23 13:12 - Today's Visit Information Type of service Initial Visit Arrival Mode Walker Accompanied by daughter Patient Identification Verified (Name & Yes ) Patient Requires Transmission-Based No Precautions Finger Stick Blood Sugar(mg/dl) (if 6.4 indicated): Blood Sugar Stated by Patient Height and Weight Height 5 ft Weight 125 lb Weight in Pounds 125.0 lbs Body Mass Index (BMI) 24.4 BMI Classification Normal BSA - Siobhan 1.53 Vital Signs Temperature (97.8 F-99.1 F) 96.7 F L Temperature Source Temporal Pulse Rate (60-100) 71 Pulse Location Monitor Respiratory Rate (12-18) 18 Respiratory rate source Observation Oxygen Delivery Method Room Air Blood Pressure (90/60-120/80) 163/70 H Blood Pressure Mean 101 Source Monitor Position Semi-Fowlers Blood Pressure Location Right Arm History Since Last Visit- (Skip if this is Patient's initial visit) Left Footwear Regular Shoe Right Footwear Regular Shoe Pain Scale: 0-10 Numeric Is Patient Pain Free? No rt upper post thigh -Description Sharp -Intensity 6 -Duration (hours) Acute -Pain Behavior Facial Grimacing -Pain Aggravating Factors Sitting -Alleviating Factors/Interventions Medication, Turning/ Repositioning -Effectiveness of Alleviating Factor/ Completely Intervention effective Communication Assessment Preferred language M[place]ese Top Lift Compressor Required No Able to Read Yes Able to Write Yes Communication Tools None Caregiver Communication Skills No Impairment Impairment Right Hearing Abillity Hard of Hearing ,Use of Hearing Aid Left Hearing Abillity Hard of Hearing ,Use of Hearing Aid Visual Assistive Devices Glasses Teaching Assessment Preferences Verbal,Written Barriers to Learning None Readiness To Learn Excellent Willingness to Engage in Self Management High Activies Readiness to Engage in Self Management High Activities Anxiety Level Calm Cooperation Cooperative Perception Coherent Interest in Health Problem Asks Questions Education Importance Acknowledges Need Does Patient Smoke tobacco or other No substances Smoking Status Smoker, status unknown Functional Assessment Recent Decline in Ability to Perform Denies Any Declines Assistive Device With Patient Yes List Device(s) with Patient walker Culture/Sabianism/Diversity Specialist Cultural/Sabianism Needs that may affect No Treatment Plan Would you allow our hospital ironmolder to No meet you for the purpose of spiritual/ emotional support? Diversity Specialist to contact place of christian No Teaching: Wound Center welcome -Person Taught Patient,Family -Teaching Method Discussion -Response to teaching Teaching Completed WC - Nurse 1 - General Ulcer Measurement Start: 04/10/23 12:58 Freq: Status: Active Protocol: Activity Type Activity Date Activity User E-sign Co-sign Detail Recorded Client Recorded Date Recorded By Document 04/10/23 13:12 KW [id number] 04/10/23 13:38 KW 04/10/23 13:12 Wound Center Nurse 1 #1 Rt upper post thigh -Current Size (cm) - Length 1.2 -Current Size (cm) - Width 1.9 -Current Size (cm) - Depth 0.1 -Total Square Cm 2.28 -Date of Last Picture (Recall this 04/10/23 field) -Photo Taken Yes -Tunneling No -Undermining/Tunneling No -Circular Undermining No -Exudate Amt Small -Exudate Type Serosanguineous -Wound Margin Distinct, Outline Attached -Granulation Amt Small (1-33%) -Granulation Quality Red -Slough/Fibrin Yes -Necrosis Amt Medium (34-66%) -Necrotic Tissue Type Adherent Slough -Texture (Karen-wound Skin Appearance) Assessed -Moisture (Karen-wound Skin Appearance) Assessed,Dry/ Scaly -Color (Karen-wound Skin Appearance) Assessed, Erythema -Temperature (Karen-wound Skin No Abnormality Appearance) (Pt Warm) -Ulcer Cleansing Rinsed/ Irrigated with Saline -Anesthetic Used 5% Lidocaine Gel Lower Limb Edema Present NA WC - Nurse 2 - General Ulcer CM Notes Start: 04/10/23 12:58 Freq: Status: Active Protocol: Activity Type Activity Date Activity User E-sign Co-sign Detail Recorded Client Recorded Date Recorded By Document 04/10/23 14:03 MW [id number] 04/10/23 14:45 MW Edit Result 04/10/23 14:03 MW (1) [id number] 04/10/23 15:29 MW (1) #1 Rt upper post thigh - Injectable Lidocaine (%) => 2 - Lidocaine (ml) => 10 - I&D / Paring / Biopsy => I&D abscess - => single or simple 04/10/23 14:03 Wound Center Nurse 2 #1 Rt upper post thigh -Time 14:03 -Correct Patient Yes -Correct Side, Site, Position Yes -Correct Procedure Yes -Procedure Performed Yes -Type of Procedure Debridement -Clinical Debridement Subcutaneous -Tissue Removed Subcutaneous -Post Debridement (cm) - Length 1.5 -Post Debridement (cm) - Width 2.2 -Post Debridement (cm) - Depth 1.0 -Total Square (Post) (cm) 3.30 -Area of Debridement (cm) - Length 1.5 -Area of Debridement (cm) - Width 2.2 -Total Square (Area) (cm) 3.30 -Tunneling No -Undermining/Tunneling No -Circular Undermining No -Wound/Ulcer Outcome Not Healed -Ulcer Cleansing Rinsed/ Irrigated with Saline -Foul Odor after Cleansing No -Bioengineered Tissue No -Injectable Lidocaine (%) 2 -Lidocaine (ml) 10 -Bleeding Controlled with Pressure -Treatment Response Procedure Tolerated Well -Offloading No -Debridement - Subq, 1st 20sq cm Yes -I&D / Paring / Biopsy I&D abscess - single or simple Pain Scale: 0-10 Numeric Is Patient Pain Free? Yes - Nurse 3 - General Ulcer D/C NN Start: 04/10/23 12:58 Freq: Status: Active Protocol: Activity Type Activity Date Activity User E-sign Co-sign Detail Recorded Client Recorded Date Recorded By Document 04/10/23 15:03 [id number] 04/10/23 15:08 04/10/23 15:03 Wound Care Center Nurse 3 #1 Rt upper post thigh -Ulcer Cleansing Rinsed/ Irrigated with Saline -Foul Odor after Cleansing No -Primary Dressing Applied Mepilex Border, Nugauze, Plain 1/4in -Mepilex Border 1 -Nugauze, Plain 1/4in 1 Pain Scale: 0-10 Numeric Is Patient Pain Free? No Teaching: Wound Center Dressing Your Wound -Person Taught Patient,Family -Teaching Method Discussion, Demonstration -Response to teaching Verbalize understanding - Visit Discharge Discharge Condition Stable Ambulatory Status Ambulatory, Walker Transportation Private Auto Accompanied by daughter Medication Reconcilliation completed & No provided to patient/care provider Clinical Summary of Care Provided Yes Charges/Coding Visit Charges Office Visits / Consults: 97992 OV L3 New Procedures Integumentary 10xxx: [id number] Drainage of skin abscess 111xxx-113xx: [id number] Ailyn subq tissue 20 sq cm/< Assessment/Plan Assessment/Plan (1) Ulcer of right lower extremity: CODE(S): L97.919 - Non-pressure chronic ulcer of unspecified part of right lower leg with unspecified severity QUALIFIERS: Non-pressure ulcer stage: with fat layer exposed Qualified Code(s): L97.912 - Non-pressure chronic ulcer of unspecified part of right lower leg with fat layer exposed PLAN: Appeared to be abscess formation underlying the ulcer so I&D was performed today and subsequently packed with nugauze. Dakins-soaked gauze was applied to the wound bed and Mepelix dressing was applied over top. Patient's daughter and C will be helping with dressing changes and were instructed to change daily or more often as needed to keep clean and dry. No significant purulent drainage with I&D but cultures were obtained. It did appear infected. Though hesitant to prescribed antibiotics with patient's history of C. Diff, did prescribed a short course of doxycycline. We discussed the importance of offloading pressure to the area. Advised patient to obtain an egg-crate foam pad for the chair she sits in most often during the day and also encouraged her to change positions at least once every hour. She will return to clinic in 1 week or sooner as needed. We discussed red flag symptoms which would necessitate going to the ER.
--- NOTE | 2023-04-17 07:16 | PN.PCM_ITS ---
History of Present Illness Date of Service: 04/17/23 Chief Complaint: R thigh/buttock wound History of Wound: Patient is an 83-year-old female who presents today for evaluation and management of a wound on her right proximal posterior thigh near the gluteal fold. This wound has been present since January. She was evaluated in the emergency room on February 07, 2023 at which time the wound did not appear infected/fluctuant/indurated per ER note. At that time she also had a similar wound on the anterior aspect of her thigh which has since healed. She has also been referred to the wound care center but did not follow through with this. On 03/28/2023 she was seen at urgent care for the same wound at which point it was noted to have the appearance of a boil/abscess. She was prescribed a course of Keflex which she has not taken. She cannot think of an inciting factor for this wound. She does have frequent falls, but does not recall having fallen or otherwise injured this area. She does sit much of the day. Today, the wound appears erythematous, swollen/indurated/fluctuant, and with scab overlying. It is acutely tender to touch. 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 Objective Data Objective Data Vital Signs: Vital Signs Temp Pulse Resp BP O2 Del Method 96.7 F L 71 18 163/70 H Room Air 04/10/23 13:12 04/10/23 13:12 04/10/23 13:12 04/10/23 13:12 04/10/23 13:12 Oxygen Delivery Method Room Air Weight: 125 lb Body Mass Index (BMI) 24.4 Lab / Micro Data Micro: Microbiology 04/10/23 14:15 Wound Abcess - Leg, Right Gram Stain - Final 04/10/23 14:15 Wound Abcess - Leg, Right Wound Culture - Final Proteus mirabilis Enterococcus faecalis 04/10/23 14:15 Wound Abcess - Leg, Right Anaerobic Culture - Final No anaerobic bacteria isolated. Charges/Coding Procedures Integumentary 111xxx-113xx: [id number] Ailyn subq tissue 20 sq cm/< Physical Exam Const alert, oriented x3 and no apparent distress General Appearance: cooperative HEENT normocephalic, head/scalp atraumatic, hearing grossly normal bilaterally, external ears normal and external nose normal Eyes EOMs intact bilaterally General Eye: normal appearance of both eyes Resp normal respiratory effort, no retractions and no use of accessory muscles Effort and Inspection: able to speak in complete sentences; Negative for labored, stridor or audible wheezes Extremity no clubbing, cyanosis or edema Extremity Narrative: Wound as noted below. Skin Wound Narrative: Wound to the proximal posterior R thigh near the gluteal fold. Swollen and fluctuant/indurated to palpation. The wound bed had significant amount of slough and adherent dried drainage. Acutely tender to palpation. Neuro oriented x3, CN's II-XII intact bilaterally and moves all extremities Speech: speech normal Psych Appearance: grossly normal Attitude: calm Speech: normal speech Mood & Affect: euthymic mood Debridement Note Debridement Note Wound debrided: R proximal posterior thigh Laterality: Right Type of Debridement: Excisional debridement Anesthesia Used: - (Local injection with 2% lidocaine solution) Depth: Down to and including healthy tissue and in the subcutaneous layer Percentage of wound debrided: 100 Instrument Used: 5mm curette, #10 blade and Forceps Tissue Removed: slough, nonviable tissue Severity: Fat Layer Exposed Amount of bleeding with debridement: Mild Bleeding Controlled with: Compression and gauze Patient tolerated procedure: Patient tolerated procedure well Post-Debridement Measurements and Additional Note: Post-Debridement Measurements/Treatment - Nurse 1 - General Ulcer Assessment Start: 04/10/23 12:58 Freq: Status: Active Protocol: .[place] Activity Type Activity Date Activity User E-sign Co-sign Detail Recorded Client Recorded Date Recorded By Document 04/10/23 13:12 [id number] 04/10/23 13:38 04/10/23 13:12 - Today's Visit Information Type of service Initial Visit Arrival Mode Walker Accompanied by daughter Patient Identification Verified (Name & Yes ) Patient Requires Transmission-Based No Precautions Finger Stick Blood Sugar(mg/dl) (if 6.4 indicated): Blood Sugar Stated by Patient Height and Weight Height 5 ft Weight 125 lb Weight in Pounds 125.0 lbs Body Mass Index (BMI) 24.4 BMI Classification Normal BSA - Siobhan 1.53 Vital Signs Temperature (97.8 F-99.1 F) 96.7 F L Temperature Source Temporal Pulse Rate (60-100) 71 Pulse Location Monitor Respiratory Rate (12-18) 18 Respiratory rate source Observation Oxygen Delivery Method Room Air Blood Pressure (90/60-120/80) 163/70 H Blood Pressure Mean (mm Hg) 101 Source Monitor Position Semi-Fowlers Blood Pressure Location Right Arm History Since Last Visit- (Skip if this is Patient's initial visit) Left Footwear Regular Shoe Right Footwear Regular Shoe Pain Scale: 0-10 Numeric Is Patient Pain Free? No rt upper post thigh -Description Sharp -Intensity 6 -Duration (hours) Acute -Pain Behavior Facial Grimacing -Pain Aggravating Factors Sitting -Alleviating Factors/Interventions Medication, Turning/ Repositioning -Effectiveness of Alleviating Factor/ Completely Intervention effective Communication Assessment Preferred language [place]egalese Director Of Agriculture Required No Able to Read Yes Able to Write Yes Communication Tools None Caregiver Communication Skills No Impairment Impairment Right Hearing Abillity Hard of Hearing ,Use of Hearing Aid Left Hearing Abillity Hard of Hearing ,Use of Hearing Aid Visual Assistive Devices Glasses Teaching Assessment Preferences Verbal,Written Barriers to Learning None Readiness To Learn Excellent Willingness to Engage in Self Management High Activies Readiness to Engage in Self Management High Activities Anxiety Level Calm Cooperation Cooperative Perception Coherent Interest in Health Problem Asks Questions Education Importance Acknowledges Need Does Patient Smoke tobacco or other No substances Smoking Status Smoker, status unknown Functional Assessment Recent Decline in Ability to Perform Denies Any Declines Assistive Device With Patient Yes List Device(s) with Patient walker Culture/Anabaptism/Patient Support Associate Cultural/Anabaptism Needs that may affect No Treatment Plan Would you allow our hospital weatherization director to No meet you for the purpose of spiritual/ emotional support? Patient Support Associate to contact place of synagogue No Teaching: Wound Center ronald -Person Taught Patient,Family -Teaching Method Discussion -Response to teaching Teaching Completed - Nurse 1 - General Ulcer Measurement Start: 04/10/23 12:58 Freq: Status: Active Protocol: Activity Type Activity Date Activity User E-sign Co-sign Detail Recorded Client Recorded Date Recorded By Document 04/10/23 13:12 MALCOM [id number] 04/10/23 13:38 KW 04/10/23 13:12 Wound Center Nurse 1 #1 Rt upper post thigh -Current Size (cm) - Length 1.2 -Current Size (cm) - Width 1.9 -Current Size (cm) - Depth 0.1 -Total Square Cm 2.28 -Date of Last Picture (Recall this 04/10/23 field) -Photo Taken Yes -Tunneling No -Undermining/Tunneling No -Circular Undermining No -Exudate Amt Small -Exudate Type Serosanguineous -Wound Margin Distinct, Outline Attached -Granulation Amt Small (1-33%) -Granulation Quality Red -Slough/Fibrin Yes -Necrosis Amt Medium (34-66%) -Necrotic Tissue Type Adherent Slough -Texture (Karen-wound Skin Appearance) Assessed -Moisture (Karen-wound Skin Appearance) Assessed,Dry/ Scaly -Color (Karen-wound Skin Appearance) Assessed, Erythema -Temperature (Karen-wound Skin No Abnormality Appearance) (Pt Warm) -Ulcer Cleansing Rinsed/ Irrigated with Saline -Anesthetic Used 5% Lidocaine Gel Lower Limb Edema Present NA WC - Nurse 2 - General Ulcer CM Notes Start: 04/10/23 12:58 Freq: Status: Active Protocol: Activity Type Activity Date Activity User E-sign Co-sign Detail Recorded Client Recorded Date Recorded By Document 04/10/23 14:03 MW [id number] 04/10/23 14:45 MW Edit Result 04/10/23 14:03 MW (1) [id number] 04/10/23 15:29 MW (1) #1 Rt upper post thigh - Injectable Lidocaine (%) => 2 - Lidocaine (ml) => 10 - I&D / Paring / Biopsy => I&D abscess - => single or simple 04/10/23 14:03 Wound Center Nurse 2 #1 Rt upper post thigh -Time 14:03 -Correct Patient Yes -Correct Side, Site, Position Yes -Correct Procedure Yes -Procedure Performed Yes -Type of Procedure Debridement -Clinical Debridement Subcutaneous -Tissue Removed Subcutaneous -Post Debridement (cm) - Length 1.5 -Post Debridement (cm) - Width 2.2 -Post Debridement (cm) - Depth 1.0 -Total Square (Post) (cm) 3.30 -Area of Debridement (cm) - Length 1.5 -Area of Debridement (cm) - Width 2.2 -Total Square (Area) (cm) 3.30 -Tunneling No -Undermining/Tunneling No -Circular Undermining No -Wound/Ulcer Outcome Not Healed -Ulcer Cleansing Rinsed/ Irrigated with Saline -Foul Odor after Cleansing No -Bioengineered Tissue No -Injectable Lidocaine (%) 2 -Lidocaine (ml) 10 -Bleeding Controlled with Pressure -Treatment Response Procedure Tolerated Well -Offloading No -Debridement - Subq, 1st 20sq cm Yes -I&D / Paring / Biopsy I&D abscess - single or simple Pain Scale: 0-10 Numeric Is Patient Pain Free? Yes - Nurse 3 - General Ulcer D/C NN Start: 04/10/23 12:58 Freq: Status: Active Protocol: Activity Type Activity Date Activity User E-sign Co-sign Detail Recorded Client Recorded Date Recorded By Document 04/10/23 15:03 [id number] 04/10/23 15:08 04/10/23 15:03 Wound Care Center Nurse 3 #1 Rt upper post thigh -Ulcer Cleansing Rinsed/ Irrigated with Saline -Foul Odor after Cleansing No -Primary Dressing Applied Mepilex Border, Nugauze, Plain 1/4in -Mepilex Border 1 -Nugauze, Plain 1/4in 1 Pain Scale: 0-10 Numeric Is Patient Pain Free? No Teaching: Wound Center Dressing Your Wound -Person Taught Patient,Family -Teaching Method Discussion, Demonstration -Response to teaching Verbalize understanding WC - Visit Discharge Discharge Condition Stable Ambulatory Status Ambulatory, Walker Transportation Private Auto Accompanied by daughter Medication Reconcilliation completed & No provided to patient/care provider Clinical Summary of Care Provided Yes Assessment/Plan Assessment/Plan (1) Ulcer of right lower extremity: CODE(S): L97.919 - Non-pressure chronic ulcer of unspecified part of right lower leg with unspecified severity QUALIFIERS: Non-pressure ulcer stage: with fat layer exposed Qualified Code(s): L97.912 - Non-pressure chronic ulcer of unspecified part of right lower leg with fat layer exposed PLAN: Appeared to be abscess formation underlying the ulcer so I&D was performed today and subsequently packed with nugauze. Dakins-soaked gauze was applied to the wound bed and Mepelix dressing was applied over top. Patient's daughter and C will be helping with dressing changes and were instructed to change daily or more often as needed to keep clean and dry. No significant purulent drainage with I&D but cultures were obtained. It did appear infected. Though hesitant to prescribed antibiotics with patient's history of C. Diff, did prescribed a short course of doxycycline. We discussed the importance of offloading pressure to the area. Advised patient to obtain an egg-crate foam pad for the chair she sits in most often during the day and also encouraged her to change positions at least once every hour. She will return to clinic in 1 week or sooner as needed. We discussed red flag symptoms which would necessitate going to the ER.
== END 2023-04-17 23:59 | disposition home or self-care (01) ==
LOC: WC 12:55
PROVIDERS: PCP Internal Medicine; Referring Provider Internal Medicine; Visit Provider Physician Assistant
DX: E11.622 Type 2 diabetes mellitus with other skin ulcer (principal); L97.912 Non-pressure chronic ulcer of unspecified part of right lower leg with fat layer exposed; J44.9 Chronic obstructive pulmonary disease, unspecified; I50.9 Heart failure, unspecified; I11.0 Hypertensive heart disease with heart failure; D50.9 Iron deficiency anemia, unspecified; E78.5 Hyperlipidemia, unspecified; I25.10 Atherosclerotic heart disease of native coronary artery without angina pectoris; Z95.0 Presence of cardiac pacemaker; I25.5 Ischemic cardiomyopathy; Z87.891 Personal history of nicotine dependence
CPT/HCPCS: 10060; 11042; 87070; 87075; 87077; 87186; 87205; 99213; G0463

== ENCOUNTER 2023-04-24 14:14 | Outpatient (RCR) | payer MEDICARE, SELFPAY ==
[2023-04-18 00:17] VITALS: BP 163/70; PULSE 71; RESP 18; TEMP 35.9; BMI 24.4
[2023-04-24 14:20] VITALS: BP 149/85; PULSE 64; RESP 18; TEMP 36.6; BMI 24.4
--- NOTE | 2023-04-24 14:20 | PCM.WC.PN ---
History of Present Illness Date of Service: 04/24/23 Chief Complaint: R thigh/buttock wound History of Wound: Patient is an 83-year-old female who presents today for evaluation and management of a wound on her right proximal posterior thigh near the gluteal fold. This wound has been present since January. She was evaluated in the emergency room on February 07, 2023 at which time the wound did not appear infected/fluctuant/indurated per ER note. At that time she also had a similar wound on the anterior aspect of her thigh which has since healed. She has also been referred to the wound care center but did not follow through with this. On 03/28/2023 she was seen at urgent care for the same wound at which point it was noted to have the appearance of a boil/abscess. She was prescribed a course of Keflex which she has not taken. She cannot think of an inciting factor for this wound. She does have frequent falls, but does not recall having fallen or otherwise injured this area. She does sit much of the day. Today, the wound appears erythematous, swollen/indurated/fluctuant, and with scab overlying. It is acutely tender to touch. 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 Subjective Subjective Patient missed appointment last week. Since debridement and I&D 2 weeks ago patient reports that the wound is significantly smaller and much less tender/painful. She is sitting on a plush pillow to help with offloading and being conscientious to change position. Dressings are being changed by [facility] 1x/week and by her daughter on the other days. Objective Data Objective Data Vital Signs: Vital Signs Temp Pulse Resp BP 96.7 F L 71 18 163/70 H 04/18/23 00:17 04/18/23 00:17 04/18/23 00:17 04/18/23 00:17 Weight: 125 lb Body Mass Index (BMI) 24.4 Charges/Coding Visit Charges Office Visits / Consults: 17340 OV L3 New Physical Exam Const alert, oriented x3 and no apparent distress General Appearance: cooperative HEENT normocephalic, head/scalp atraumatic, hearing grossly normal bilaterally, external ears normal and external nose normal Eyes EOMs intact bilaterally General Eye: normal appearance of both eyes Resp normal respiratory effort, no retractions and no use of accessory muscles Effort and Inspection: able to speak in complete sentences; Negative for labored, stridor or audible wheezes Cardio regular rate and regular rhythm Extremity no clubbing, cyanosis or edema Extremity Narrative: Wound as noted below. Skin Wound Narrative: Wound to the proximal posterior R thigh near the gluteal fold. Neuro oriented x3, CN's II-XII intact bilaterally and moves all extremities Speech: speech normal Psych Appearance: grossly normal Attitude: calm Speech: normal speech Mood & Affect: euthymic mood Debridement Note Debridement Note Wound debrided: R proximal posterior thigh Laterality: Right Type of Debridement: Excisional debridement Anesthesia Used: 5% Lidocaine Gel Depth: Down to and including healthy tissue and in the subcutaneous layer Percentage of wound debrided: 100 Instrument Used: 5mm curette Tissue Removed: slough, nonviable tissue Severity: Fat Layer Exposed Amount of bleeding with debridement: Mild Bleeding Controlled with: Compression and gauze Patient tolerated procedure: Patient tolerated procedure well Post-Debridement Measurements and Additional Note: Post-Debridement Measurements/Treatment - Nurse 1 - General Ulcer Assessment Start: 04/10/23 12:58 Freq: Status: Active Protocol: YFN Activity Type Activity Date Activity User E-sign Co-sign Detail Recorded Client Recorded Date Recorded By Document 04/10/23 13:12 KW [id number] 04/10/23 13:38 KW 04/10/23 13:12 - Today's Visit Information Type of service Initial Visit Arrival Mode Walker Accompanied by daughter Patient Identification Verified (Name & Yes ) Patient Requires Transmission-Based No Precautions Finger Stick Blood Sugar(mg/dl) (if 6.4 indicated): Blood Sugar Stated by Patient Height and Weight Height 5 ft Weight 125 lb Weight in Pounds 125.0 lbs Body Mass Index (BMI) 24.4 BMI Classification Normal BSA - Siobhan 1.53 Vital Signs Temperature (97.8 F-99.1 F) 96.7 F L Temperature Source Temporal Pulse Rate (60-100) 71 Pulse Location Monitor Respiratory Rate (12-18) 18 Respiratory rate source Observation Oxygen Delivery Method Room Air Blood Pressure (90/60-120/80) 163/70 H Blood Pressure Mean 101 Source Monitor Position Semi-Fowlers Blood Pressure Location Right Arm History Since Last Visit- (Skip if this is Patient's initial visit) Left Footwear Regular Shoe Right Footwear Regular Shoe Pain Scale: 0-10 Numeric Is Patient Pain Free? No rt upper post thigh -Description Sharp -Intensity 6 -Duration (hours) Acute -Pain Behavior Facial Grimacing -Pain Aggravating Factors Sitting -Alleviating Factors/Interventions Medication, Turning/ Repositioning -Effectiveness of Alleviating Factor/ Completely Intervention effective Communication Assessment Preferred language [place] Etcher Hand Required No Able to Read Yes Able to Write Yes Communication Tools None Caregiver Communication Skills No Impairment Impairment Right Hearing Abillity Hard of Hearing ,Use of Hearing Aid Left Hearing Abillity Hard of Hearing ,Use of Hearing Aid Visual Assistive Devices Glasses Teaching Assessment Preferences Verbal,Written Barriers to Learning None Readiness To Learn Excellent Willingness to Engage in Self Management High Activies Readiness to Engage in Self Management High Activities Anxiety Level Calm Cooperation Cooperative Perception Coherent Interest in Health Problem Asks Questions Education Importance Acknowledges Need Does Patient Smoke tobacco or other No substances Smoking Status Smoker, status unknown Functional Assessment Recent Decline in Ability to Perform Denies Any Declines Assistive Device With Patient Yes List Device(s) with Patient walker Culture/Moravian/Rail Crew Member Cultural/Moravian Needs that may affect No Treatment Plan Would you allow our hospital installer molding and trim to No meet you for the purpose of spiritual/ emotional support? Rail Crew Member to contact place of jainism No Teaching: Wound Center ronald -Person Taught Patient,Family -Teaching Method Discussion -Response to teaching Teaching Completed WC - Nurse 1 - General Ulcer Measurement Start: 04/10/23 12:58 Freq: Status: Active Protocol: Activity Type Activity Date Activity User E-sign Co-sign Detail Recorded Client Recorded Date Recorded By Document 04/10/23 13:12 [id number] 04/10/23 13:38 KW 04/10/23 13:12 Wound Center Nurse 1 #1 Rt upper post thigh -Current Size (cm) - Length 1.2 -Current Size (cm) - Width 1.9 -Current Size (cm) - Depth 0.1 -Total Square Cm 2.28 -Date of Last Picture (Recall this 04/10/23 field) -Photo Taken Yes -Tunneling No -Undermining/Tunneling No -Circular Undermining No -Exudate Amt Small -Exudate Type Serosanguineous -Wound Margin Distinct, Outline Attached -Granulation Amt Small (1-33%) -Granulation Quality Red -Slough/Fibrin Yes -Necrosis Amt Medium (34-66%) -Necrotic Tissue Type Adherent Slough -Texture (Karen-wound Skin Appearance) Assessed -Moisture (Karen-wound Skin Appearance) Assessed,Dry/ Scaly -Color (Karen-wound Skin Appearance) Assessed, Erythema -Temperature (Karen-wound Skin No Abnormality Appearance) (Pt Warm) -Ulcer Cleansing Rinsed/ Irrigated with Saline -Anesthetic Used 5% Lidocaine Gel Lower Limb Edema Present NA WC - Nurse 2 - General Ulcer CM Notes Start: 04/10/23 12:58 Freq: Status: Active Protocol: Activity Type Activity Date Activity User E-sign Co-sign Detail Recorded Client Recorded Date Recorded By Document 04/10/23 14:03 MW [id number] 04/10/23 14:45 MW Edit Result 04/10/23 14:03 MW (1) [id number] 04/10/23 15:29 MW (1) #1 Rt upper post thigh - Injectable Lidocaine (%) => 2 - Lidocaine (ml) => 10 - I&D / Paring / Biopsy => I&D abscess - => single or simple 04/10/23 14:03 Wound Center Nurse 2 #1 Rt upper post thigh -Time 14:03 -Correct Patient Yes -Correct Side, Site, Position Yes -Correct Procedure Yes -Procedure Performed Yes -Type of Procedure Debridement -Clinical Debridement Subcutaneous -Tissue Removed Subcutaneous -Post Debridement (cm) - Length 1.5 -Post Debridement (cm) - Width 2.2 -Post Debridement (cm) - Depth 1.0 -Total Square (Post) (cm) 3.30 -Area of Debridement (cm) - Length 1.5 -Area of Debridement (cm) - Width 2.2 -Total Square (Area) (cm) 3.30 -Tunneling No -Undermining/Tunneling No -Circular Undermining No -Wound/Ulcer Outcome Not Healed -Ulcer Cleansing Rinsed/ Irrigated with Saline -Foul Odor after Cleansing No -Bioengineered Tissue No -Injectable Lidocaine (%) 2 -Lidocaine (ml) 10 -Bleeding Controlled with Pressure -Treatment Response Procedure Tolerated Well -Offloading No -Debridement - Subq, 1st 20sq cm Yes -I&D / Paring / Biopsy I&D abscess - single or simple Pain Scale: 0-10 Numeric Is Patient Pain Free? Yes WC - Nurse 3 - General Ulcer D/C NN Start: 04/10/23 12:58 Freq: Status: Active Protocol: Activity Type Activity Date Activity User E-sign Co-sign Detail Recorded Client Recorded Date Recorded By Document 04/10/23 15:03 MALCOM [id number] 04/10/23 15:08 MALCOM 04/10/23 15:03 Wound Care Center Nurse 3 #1 Rt upper post thigh -Ulcer Cleansing Rinsed/ Irrigated with Saline -Foul Odor after Cleansing No -Primary Dressing Applied Mepilex Border, Nugauze, Plain 1/4in -Mepilex Border 1 -Nugauze, Plain 1/4in 1 Pain Scale: 0-10 Numeric Is Patient Pain Free? No Teaching: Wound Center Dressing Your Wound -Person Taught Patient,Family -Teaching Method Discussion, Demonstration -Response to teaching Verbalize understanding WC - Visit Discharge Discharge Condition Stable Ambulatory Status Ambulatory, Walker Transportation Private Auto Accompanied by daughter Medication Reconcilliation completed & No provided to patient/care provider Clinical Summary of Care Provided Yes Assessment/Plan Assessment/Plan (1) Ulcer of right lower extremity: CODE(S): L97.919 - Non-pressure chronic ulcer of unspecified part of right lower leg with unspecified severity QUALIFIERS: Non-pressure ulcer stage: with fat layer exposed Qualified Code(s): L97.912 - Non-pressure chronic ulcer of unspecified part of right lower leg with fat layer exposed PLAN: Wound with significant improvement in appearance and size. Fluctuance, induration, erythema, and TTP all resolved. Will apply collagen hydrogel and continue to cover with foam dressing. Continue with offloading measures as discussed. She will return to clinic in 1 week or sooner as needed.
--- NOTE | 2023-05-01 07:20 | PCM.WC.PN ---
History of Present Illness Date of Service: 05/01/23 Chief Complaint: R thigh/buttock wound History of Wound: Patient is an 83-year-old female who presents today for evaluation and management of a wound on her right proximal posterior thigh near the gluteal fold. This wound has been present since January. She was evaluated in the emergency room on February 07, 2023 at which time the wound did not appear infected/fluctuant/indurated per ER note. At that time she also had a similar wound on the anterior aspect of her thigh which has since healed. She has also been referred to the wound care center but did not follow through with this. On 03/28/2023 she was seen at urgent care for the same wound at which point it was noted to have the appearance of a boil/abscess. She was prescribed a course of Keflex which she has not taken. She cannot think of an inciting factor for this wound. She does have frequent falls, but does not recall having fallen or otherwise injured this area. She does sit much of the day. Today, the wound appears erythematous, swollen/indurated/fluctuant, and with scab overlying. It is acutely tender to touch. 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 Objective Data Objective Data Vital Signs: Vital Signs Temp Pulse Resp BP 97.8 F 64 18 149/85 H 04/24/23 14:20 04/24/23 14:20 04/24/23 14:20 04/24/23 14:20 Weight: 125 lb Body Mass Index (BMI) 24.4 Physical Exam Const alert, oriented x3 and no apparent distress General Appearance: cooperative HEENT normocephalic, head/scalp atraumatic, hearing grossly normal bilaterally, external ears normal and external nose normal Eyes EOMs intact bilaterally General Eye: normal appearance of both eyes Resp normal respiratory effort, no retractions and no use of accessory muscles Effort and Inspection: able to speak in complete sentences; Negative for labored, stridor or audible wheezes Cardio regular rate and regular rhythm Extremity no clubbing, cyanosis or edema Extremity Narrative: Wound as noted below. Skin Wound Narrative: Wound to the proximal posterior R thigh near the gluteal fold. Neuro oriented x3, CN's II-XII intact bilaterally and moves all extremities Speech: speech normal Psych Appearance: grossly normal Attitude: calm Speech: normal speech Mood & Affect: euthymic mood Debridement Note Debridement Note Wound debrided: R proximal posterior thigh Laterality: Right Type of Debridement: Excisional debridement Anesthesia Used: 5% Lidocaine Gel Depth: Down to and including healthy tissue and in the subcutaneous layer Percentage of wound debrided: 100 Instrument Used: 5mm curette Tissue Removed: slough, nonviable tissue Severity: Fat Layer Exposed Amount of bleeding with debridement: Mild Bleeding Controlled with: Compression and gauze Patient tolerated procedure: Patient tolerated procedure well Post-Debridement Measurements and Additional Note: Post-Debridement Measurements/Treatment MIKIE - Nurse 1 - General Ulcer Assessment Start: 04/24/23 14:17 Freq: Status: Active Protocol: YFN Activity Type Activity Date Activity User E-sign Co-sign Detail Recorded Client Recorded Date Recorded By Document 04/24/23 14:20 AMANDA [id number] 04/24/23 14:22 PL 04/24/23 14:20 WC - Today's Visit Information Type of service Follow-up Visit (Physician/[employer]LE [employer]PER[employer]OR ) Arrival Mode Ambulatory Transfer Assistance None Patient Identification Verified (Name & Yes ) Patient Requires Transmission-Based No Precautions Height and Weight Body Mass Index (BMI) 24.4 BMI Classification Normal Vital Signs Temperature (97.8 F-99.1 F) 97.8 F Temperature Source Temporal Pulse Rate (60-100) 64 Respiratory Rate (12-18) 18 Blood Pressure (90/60-120/80) 149/85 H Blood Pressure Mean (mm Hg) 106 History Since Last Visit- (Skip if this is Patient's initial visit) Have you changed medications since your No last visit? Any new allergies or adverse reactions No Had a fall/change in ADL's that may No increase risk of falls Signs or symptoms of abuse and/or No neglect since last visit Have you been in the hospital since your No last visit? Has dressing in place as prescribed Yes Has compression in place as prescribed N/A Has offloadiing in place as prescribed N/A Pain Scale: 0-10 Numeric Is Patient Pain Free? Yes MIKIE - Nurse 2 - General Ulcer CM Notes Start: 04/24/23 14:17 Freq: Status: Active Protocol: Activity Type Activity Date Activity User E-sign Co-sign Detail Recorded Client Recorded Date Recorded By Document 04/24/23 15:00 PL [id number] 04/24/23 15:01 PL 04/24/23 15:00 Wound Center Nurse 2 #1 Rt upper post thigh -Time 14:25 -Procedure Performed No -Post Debridement (cm) - Length 0.6 -Post Debridement (cm) - Width 0.9 -Post Debridement (cm) - Depth 0.1 -Total Square (Post) (cm) 0.54 -Tunneling No -Undermining/Tunneling No -Circular Undermining No -Wound/Ulcer Outcome Not Healed Pain Scale: 0-10 Numeric Is Patient Pain Free? Yes WC - Nurse 3 - General Ulcer D/C NN Start: 04/24/23 14:17 Freq: Status: Active Protocol: Activity Type Activity Date Activity User E-sign Co-sign Detail Recorded Client Recorded Date Recorded By Document 04/24/23 15:00 PL [id number] 04/24/23 15:01 PL 04/24/23 15:00 Is Patient Pain Free? Yes Wound Care Center Nurse 3 #1 Rt upper post thigh -Ulcer Cleansing Rinsed/ Irrigated with Saline -Foul Odor after Cleansing No -Primary Dressing Applied C Hydrogel ($), Mepilex Border -Mepilex Border 1 WC - Visit Discharge Discharge Condition Stable Ambulatory Status Ambulatory Transportation Private Auto Assessment/Plan Assessment/Plan (1) Ulcer of right lower extremity: CODE(S): L97.919 - Non-pressure chronic ulcer of unspecified part of right lower leg with unspecified severity QUALIFIERS: Non-pressure ulcer stage: with fat layer exposed Qualified Code(s): L97.912 - Non-pressure chronic ulcer of unspecified part of right lower leg with fat layer exposed PLAN: Wound with significant improvement in appearance and size. Fluctuance, induration, erythema, and TTP all resolved. Will apply collagen hydrogel and continue to cover with foam dressing. Continue with offloading measures as discussed. She will return to clinic in 1 week or sooner as needed.
== END 2023-05-18 23:59 | disposition home or self-care (01) ==
LOC: WC 14:14
PROVIDERS: PCP Internal Medicine; Referring Provider Internal Medicine; Visit Provider Physician Assistant
DX: L97.912 Non-pressure chronic ulcer of unspecified part of right lower leg with fat layer exposed (principal); J44.9 Chronic obstructive pulmonary disease, unspecified; I50.9 Heart failure, unspecified; E11.9 Type 2 diabetes mellitus without complications; Z95.0 Presence of cardiac pacemaker; D50.9 Iron deficiency anemia, unspecified; Z95.5 Presence of coronary angioplasty implant and graft; I25.10 Atherosclerotic heart disease of native coronary artery without angina pectoris
CPT/HCPCS: 99213; G0463

== ENCOUNTER → 2023-05-18 | Outpatient (CLI) | payer MEDICARE, SELFPAY ==
[2023-05-18 17:43] LABS: Free T3 2.3 pg/mL (2.18-3.98); T4 Free Direct 0.89 ng/dL (0.76-1.46); Thyroid Stim Hormone (TSH) 0.27 uIU/mL (0.358-3.74)
[2023-05-18 17:48] LABS: Vitamin D,25 Hydroxy 25.7 ng/mL
== END | disposition home or self-care (01) ==
LOC: LAB 16:15
PROVIDERS: PCP Internal Medicine; Referring Provider Internal Medicine Endocrinology, Diabetes & Metabolism; Visit Provider Internal Medicine Endocrinology, Diabetes & Metabolism
DX: E78.5 Hyperlipidemia, unspecified (principal); E11.9 Type 2 diabetes mellitus without complications; E05.90 Thyrotoxicosis, unspecified without thyrotoxic crisis or storm; E55.9 Vitamin D deficiency, unspecified; M81.0 Age-related osteoporosis without current pathological fracture
CPT/HCPCS: 36415; 82306; 84439; 84443; 84481

== ENCOUNTER → 2023-05-29 | Outpatient (CLI) | payer MEDICARE, SELFPAY ==
[2023-05-29 16:16] LABS: Absolute Lymphocyte Count 1.59 X10^3/uL (0.83-4.51); Absolute Neutrophil Count 4.9 X10^3/uL (2.0-7.7); Basophil# 0.05 X10^3/uL; Basophil% 0.7 % (0-1); Eosinophil# 0.39 X10^3/uL; Eosinophils% 5.2 % (0-5); Hematocrit 37.7 % (37-47); Hemoglobin 12.3 g/dL (12.0-15.0); Lymphocyte # 1.59 X10^3/ul (0.83-4.51); Lymphocyte % 21.2 % (19-41); Mean Corp Hgb Conc 32.6 g/dL (32-36); Mean Corpuscular Hgb 30.4 pg (27.0-32.0); Mean Corpuscular Volume 93.3 fL (81-99); Mean Platelet Vol. 11.5 fl (6.2-12.0); Monocyte# 0.59 X10^3/uL; Monocyte% 7.9 % (0-10); NRBC Flagged by Analyzer 0 % (0-5); Neutrophil # 4.85 X10^3/uL (2.7-7.7); Neutrophil % 64.6 % (47-70); Platelet Count 223 K/mm3 (150-450); RBC Distribution Width CV 14.3 % (11.6-14.6); RBC Distribution Width SD 49.4 fl (35.1-43.9); Red Blood Count 4.04 M/mm3 (4.2-5.4); White Blood Count 7.5 K/mm3 (4.4-11.0)
[2023-05-29 16:31] LABS: ALB/GLOB Ratio 1.1 RATIO (0.9-2.4); AST(SGOT) 13 U/L (15-37); Alanine Aminotransfer ALT/SGPT 20 U/L (13-56); Albumin, Serum 3.6 g/dL (3.2-5.0); Alkaline Phosphatase 62 U/L (45-117); Anion Gap 6 (5-15); BUN 19 mg/dL (7-18); BUN/Creat Ratio 23.4 RATIO (10-20); Calcium,Total 9.1 mg/dL (8.5-10.1); Chloride 105 mmol/L (98-107); Creatinine, Serum 0.81 mg/dL (0.55-1.02); EST Glomerular Filtration Rate 72 mL/min (>60); Est Glom Filt Rate - Afr Amer 87 mL/min (>60); Globulin 3.3 g/dL (2.2-4.2); Glucose 157 mg/dL (74-106); Potassium 4.1 mmol/L (3.5-5.1); Protein, Total 6.9 g/dL (6.4-8.2); Sodium Level 139 mmol/L (136-145)
== END | disposition home or self-care (01) ==
LOC: BIMLAB 15:28
PROVIDERS: PCP Internal Medicine; Referring Provider Internal Medicine; Visit Provider Internal Medicine
DX: I10 Essential (primary) hypertension (principal); E78.5 Hyperlipidemia, unspecified
CPT/HCPCS: 36415; 80053; 85025

== ENCOUNTER 2023-06-02 06:09 | Observation (INO) | payer MEDICARE, SELFPAY ==
[2023-06-02] VITALS (13 sets, daily range): BP systolic 120–139; BP diastolic 58–107; PULSE 60–127; RESP 18–31; TEMP 36.1–37.2; O2SAT 92–98; BMI 29.5; BMI 23.8
--- NOTE | 2023-06-02 06:34 | RAD_ITS ---
EXAM: XR CHEST, 1 VIEW CLINICAL INDICATION: dyspnea TECHNIQUE: Frontal view of the chest. COMPARISON: Previous chest radiographs of 12/31/2022 and 12/21/2022. FINDINGS: LUNGS AND PLEURAL SPACES: No acute pulmonary infiltrates or pleural effusions. No pneumothorax. HEART: Heart size remains mildly enlarged with continued cephalization of pulmonary blood flow. Coronary artery stent material is present. MEDIASTINUM: Stable elongation and calcification of the thoracic aorta. BONES/JOINTS: Previous lower thoracic lymphoplasties are again demonstrated. SOFT TISSUES: Unremarkable. TUBES, LINES AND DEVICES: Cardiac pacemaker remains in place with the generator overlying and partially obscuring the left midlung. RAD/Chest 1 View (Portable) IMPRESSION: Cardiomegaly with pulmonary venous hypertension indicating a mild degree of cardiac decompensation. No pneumonia or pulmonary edema identified at this time. Electronically Signed: Ramesh Moscoso MD at 7:06 EDT ,
[2023-06-02] MEDS: dilTIAZem 25 MG/5 ML Vial 15 MG IV BOLUS ×2 (06:45→10:03)
[2023-06-02 06:46] LABS: Absolute Lymphocyte Count 2.19 X10^3/uL (0.83-4.51); Absolute Neutrophil Count 9.2 X10^3/uL (2.0-7.7); Basophil# 0.05 X10^3/uL; Basophil% 0.4 % (0-1); Eosinophil# 0.42 X10^3/uL; Eosinophils% 3.3 % (0-5); Hematocrit 41.3 % (37-47); Lymphocyte # 2.19 X10^3/ul (0.83-4.51); Lymphocyte % 17.4 % (19-41); Mean Corp Hgb Conc 31.5 g/dL (32-36); Mean Corpuscular Hgb 29.6 pg (27.0-32.0); Mean Corpuscular Volume 94.1 fL (81-99); Mean Platelet Vol. 11.1 fl (6.2-12.0); Monocyte# 0.71 X10^3/uL; Monocyte% 5.6 % (0-10); NRBC Flagged by Analyzer 0 % (0-5); Neutrophil # 9.19 X10^3/uL (2.7-7.7); Neutrophil % 72.9 % (47-70); Platelet Count 226 K/mm3 (150-450); RBC Distribution Width SD 48.4 fl (35.1-43.9); Red Blood Count 4.39 M/mm3 (4.2-5.4); White Blood Count 12.6 K/mm3 (4.4-11.0)
--- NOTE | 2023-06-02 07:01 | EKG12_ITS ---
Test Reason : Blood Pressure : / mmHG Vent. Rate : 110 BPM Atrial Rate : 000 BPM P-R Int : 000 ms QRS Dur : 142 ms QT Int : 326 ms P-R-T Axes : 000 -36 147 degrees QTc Int : 441 ms Atrial fibrillation with rapid ventricular response Left axis deviation Left bundle branch block Abnormal ECG Confirmed by RANJEET ORONA ([id number]), electronic news gathering editor PITA BLEDSOE ([id number]) on 06/06/2023 9:31:16 AM Referred By: Confirmed By:RANJEET ORONA
[2023-06-02 07:19] LABS: Anion Gap 6 (5-15); BUN 14 mg/dL (7-18); BUN/Creat Ratio 19.5 RATIO (10-20); Chloride 107 mmol/L (98-107); Creatinine, Serum 0.72 mg/dL (0.55-1.02); EST Glomerular Filtration Rate 82 mL/min (>60); Est Glom Filt Rate - Afr Amer 100 mL/min (>60); Estimated Creatinine Clearance 44.61 ml/min; Glucose 176 mg/dL (74-106); Magnesium 1.8 mg/dL (1.6-2.6); Potassium 3.7 mmol/L (3.5-5.1); Sodium Level 141 mmol/L (136-145); Thyroid Stim Hormone (TSH) 0.56 uIU/mL (0.358-3.74)
--- NOTE | 2023-06-02 07:19 | EX.ED.DYSGE1 ---
HPI <Dr. Uzair Monroe DO - Last Filed: 06/02/23 21:58> History of Present Illness Chief Complaint: Shortness of Breath Informant: patient and family Narrative Narrative: Patient is an 83-year-old female with past medical history of diastolic heart failure coronary artery disease diabetes hypertension and history of tachybradycardia syndrome status post pacemaker as well as atrial fibrillation. Patient states that she went to bed feeling normally and then awoke this morning to use the restroom and after doing so felt shortness of breath. She states that there is been no fevers or chills cough or congestion. She denies any chest pain with her symptoms. She states she does not need supplemental oxygen normally. However she cannot get her symptoms under control at home and with this EMS was called to bring the patient in for evaluation [facility] <Dr. Uzair Monroe DO - Last Filed: 06/02/23 21:58> [facility] Medical History Abdominal pain Abnormal results of thyroid function studies Anemia Anxiety and depression Atherosclerosis of coronary artery of [place] heart without angina pectoris Back pain Back pain due to injury Bladder disease Boil of lower extremity Cardiology follow-up encounter CHF (congestive heart failure) Chronic back pain Chronic diarrhea Closed left hip fracture Compression fracture Dark stools Depression Diabetes Diarrhea Dietary restriction Elevated troponin I level Essential hypertension [place] Fracture of left distal radius Frequent falls Gastroesophageal reflux disease History of CHF (congestive heart failure) History of echocardiogram History of hemorrhoids History of pulmonary embolus (PE) History of stress test Hyperlipidemia Hypertension Iron deficiency anemia Irritable bowel Ischemic cardiomyopathy Low back pain Lumbar compression fracture Lumbar spinal stenosis Memory deficit Myocardial infarct Non-smoker Nursing assistance required Oropharyngeal dysphagia Orthopedic aftercare Osteoporosis Post-menopausal Pulmonary embolism Shortness of breath on exertion 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) Type II diabetes mellitus Ulcer of right lower extremity Vitamin D deficiency Wears dentures Wears glasses Wears hearing aid Home Medications nitroglycerin 0.4 mg sublingual tablet 0.4 mg sublingual Q5M PRN Cardiac/Chest Pain #25 tabs 12/23/21 [Rx Last Taken Unknown] blood sugar diagnostic 12/30/21 [History Last Taken Unknown] blood-glucose meter 12/30/21 [History Last Taken Unknown] acetaminophen 500 mg tablet (Tylenol Extra Strength) 1,000 mg PO Q6H PRN Pain 02/21/22 [History Last Taken Unknown] gabapentin 100 mg capsule 100 mg PO TIDCM Neuropathy 05/12/22 [History Last Taken Unknown] lidocaine 5 % topical patch 1 patch topical DAILY Pain 05/12/22 [History Last Taken Unknown] menthol 0.44 %-zinc oxide 20.6 % topical ointment (Calmoseptine) 1 applic topical TID Skin protection 05/12/22 [History Last Taken Unknown] nutrition tx glu intol,lac-free,soy-fiber 0.06 gram-1.2 kcal/mL liquid (Glucerna 1.2 [place]) 120 ml PO 4X/DAY Supplement 05/12/22 [History Last Taken Unknown] tramadol 50 mg tablet 50 mg PO Q6H PRN PRN Pain Score 4-10 3 days #12 tabs 05/28/22 [Rx Last Taken Unknown] lidocaine 4 % topical patch (Aspercreme (lidocaine)) 1 patch topical DAILY PRN Pain 06/11/22 [History Last Taken Unknown] lisinopril 40 mg tablet 40 mg PO DAILY blood pressure 06/11/22 [History Last Taken Unknown] zinc oxide 20 % topical ointment 1 applic topical TID rash 06/11/22 [History Last Taken Unknown] sertraline 100 mg tablet 100 mg PO DAILY mental health 08/06/22 [History Last Taken Unknown] Prolia 60 mg/mL subcutaneous syringe (denosumab) 60 mg subcut [id number] #1 mL 11/06/22 [Rx Last Taken 2 Months Ago ~11/02/22] amlodipine 5 mg tablet 5 mg PO DAILY blood pressure #90 tabs 11/18/22 [Rx Last Taken Unknown] furosemide 40 mg tablet (Lasix) 40 mg PO BID Fluid retention- take 4 to 6 hours apart #180 tabs 11/18/22 [Rx Last Taken Unknown] atenolol 50 mg tablet 50 mg PO DAILY heart health 11/20/22 [History Last Taken Unknown] colestipol 1 gram tablet 1 g PO BID #120 tabs 01/06/23 [Rx Last Taken Unknown] empagliflozin 10 mg tablet (Jardiance) 10 mg PO DAILY #90 tabs 01/20/23 [Rx Last Taken Unknown] potassium chloride 20 mEq tablet,extended release 20 meq PO DAILY supplement #90 tabs 01/23/23 [Rx Last Taken Unknown] isosorbide mononitrate 60 mg tablet,extended release 24 hr 60 mg PO DAILY heart #90 tabs 03/03/23 [Rx Last Taken Unknown] cholecalciferol (vitamin D3) 1,250 mcg (50,000 unit) capsule 1,250 mcg PO QWEEK vitamin #12 caps 05/19/23 [Rx Last Taken 06/01/23] methimazole 5 mg tablet 2.5 mg (1/2 x 5 mg) PO DAILY #15 tabs 05/19/23 [Rx Last Taken Unknown] ferrous sulfate 325 mg (65 mg iron) tablet 325 mg PO BID #60 tabs 05/25/23 [Rx Last Taken Unknown] sucralfate 1 gram tablet 1 g PO TIDAC #90 tabs 05/25/23 [Rx Last Taken Unknown] metformin 500 mg tablet 500 mg PO DAILY diabetes 06/02/23 [History Last Taken 06/01/23] pantoprazole 40 mg tablet,delayed release 40 mg PO TID gerd 06/02/23 [History Last Taken Unknown] Allergy/AdvReac Type Severity Reaction Status Date / Time latex Allergy Other Verified 05/29/23 14:41 Family History Father CVA (cerebral vascular accident) Mother Heart disease CAD (coronary artery disease) Sister CAD (coronary artery disease) Daughter CAD (coronary artery disease) Myocardial infarction Daughter Diabetes Surgical History (Updated 06/02/23 @ 07:[address] Uzair Monroe DO) H/O: hysterectomy History of back surgery History of cardiac catheterization History of carpal tunnel release History of coronary artery stent placement History of kyphoplasty History of permanent cardiac pacemaker placement (12/30/21) Hx of cholecystectomy Hx of knee surgery S/P hysterectomy Social History household members: none housing: house Smoking Status: Smoker, status unknown alcohol intake: never substance use type: does not use caffeine: No what type of physical activity do you participate in: none do you feel safe at home: Yes ROS <Dr. Uzair Monroe DO - Last Filed: 06/02/23 21:58> ROS ED Constitutional Constitutional ED: Denies chills or fever(s) ENT ENT ED: Denies sore throat Cardiovascular Cardiovascular: Reports palpitations and racing heartbeat; Denies chest pain Respiratory/Chest Respiratory/Chest: Reports dyspnea; Denies cough Gastrointestinal Gastrointestinal: Denies abdominal pain, diarrhea, nausea or vomiting Genitourinary Genitourinary ED: Denies dysuria Musculoskeletal Musculoskeletal: Denies myalgias Integumentary Denies rash Neurologic Neurologic: Denies headache(s) Hematologic/Lymphatic Hematologic/Lymphatic: Reports easy bleeding and easy bruising EXAM <Dr. Uzair Monroe, DO - Last Filed: 06/02/23 21:58> Physical Exam Const Vital Signs: 06/02/23 06:10 06/02/23 06:27 06/02/23 06:48 Temperature 97 F L 97.0 F L Temperature Source Temporal Temporal Pulse Rate 116 H 122 H Respiratory Rate 22 H 31 H Respiratory Effort Short of Breath Respiratory Depth Shallow Respiratory Pattern Tachypnea Blood Pressure 133/107 H Blood Pressure Mean 115 Pulse Ox 96 97 Oxygen Delivery Method Room Air Nasal Cannula Room Air Oxygen Flow Rate (L/min) 2 06/02/23 07:07 06/02/23 09:01 06/02/23 09:01 Temperature 97.8 F Temperature Source Temporal Pulse Rate 81 127 H 123 H Respiratory Rate 18 Respiratory Effort Respiratory Depth Respiratory Pattern Blood Pressure 123/96 H Blood Pressure Mean 105 Pulse Ox 98 Oxygen Delivery Method Room Air Oxygen Flow Rate (L/min) 06/02/23 09:05 06/02/23 10:20 06/02/23 10:28 Temperature 97.5 F L 98.9 F Temperature Source Temporal Temporal Pulse Rate 116 H 95 105 H Respiratory Rate 18 20 H Respiratory Effort Respiratory Depth Respiratory Pattern Blood Pressure 123/96 H 139/68 H 123/96 H Blood Pressure Mean 105 91 105 Pulse Ox 98 95 98 Oxygen Delivery Method Room Air Room Air Room Air Oxygen Flow Rate (L/min) Positive well nourished and well developed General Appearance ED: well developed HEENT Reports moist mucous membranes HEENT Narrative: No tongue or lip swelling no oral lesions no airway edema or compromise Eyes PERRL and EOMs intact bilaterally Neck supple and no JVD Chest Wall palpation of chest normal Chest Narrative: No bony deformity or crepitus noted Resp clear to auscultation bilaterally Resp Narrative: Breath sounds are diminished throughout but overall clear to auscultation. Patient is tachypneic but has no nasal flaring retractions or accessory muscle use. Cardio Rate: other Other Details: Irregularly irregular rhythm with tachycardic rate consistent with atrial fibrillation with rapid ventricular response GI normal to inspection, nondistended, normoactive bowel sounds, non-tender, non-distended and no masses GI Narrative: No voluntary guarding or rigidity. No pulsatile mass or fluid wave. Auscultation: normoactive bowel sounds Palpation: soft Extremity Extremity Narrative: Trace pitting edema to the bilateral lower extremities that is equal and symmetric Negative Homans' sign bilaterally Neuro oriented x3, CN's II-XII intact bilaterally and no sensory deficits noted Sensorium / Orientation: alert Motor Exam: strength 5/5 throughout Psych mental status grossly normal Skin no rashes or lesions noted Skin Narrative: Skin is pale in color but capillary refill is less than 3 seconds <Dr. Prashanth Leon, DO - Last Filed: 06/02/23 16:11> Physical Exam Const Vital Signs: 06/02/23 06:10 06/02/23 06:27 06/02/23 06:48 Temperature 97 F L 97.0 F L Temperature Source Temporal Temporal Pulse Rate 116 H 122 H Respiratory Rate 22 H 31 H Respiratory Effort Short of Breath Respiratory Depth Shallow Respiratory Pattern Tachypnea Blood Pressure 133/107 H Blood Pressure Mean 115 Pulse Ox 96 97 Oxygen Delivery Method Room Air Nasal Cannula Room Air Oxygen Flow Rate (L/min) 2 06/02/23 07:07 06/02/23 09:01 06/02/23 09:01 Temperature 97.8 F Temperature Source Temporal Pulse Rate 81 127 H 123 H Respiratory Rate 18 Respiratory Effort Respiratory Depth Respiratory Pattern Blood Pressure 123/96 H Blood Pressure Mean 105 Pulse Ox 98 Oxygen Delivery Method Room Air Oxygen Flow Rate (L/min) 06/02/23 09:05 06/02/23 10:20 06/02/23 10:28 Temperature 97.5 F L 98.9 F Temperature Source Temporal Temporal Pulse Rate 116 H 95 105 H Respiratory Rate 18 20 H Respiratory Effort Respiratory Depth Respiratory Pattern Blood Pressure 123/96 H 139/68 H 123/96 H Blood Pressure Mean 105 91 105 Pulse Ox 98 95 98 Oxygen Delivery Method Room Air Room Air Room Air Oxygen Flow Rate (L/min) [facility] <Dr. Uzair Monroe, DO - Last Filed: 06/02/23 21:58> [facility] Narrative Medical decision making narrative: Patient presented to the ER hypertensive and tachycardic. EKG shows changes consistent with atrial fibrillation with rapid ventricular response. Patient does have a history of this but she also has a pacemaker in place. In theory the pacemaker should have been able to pace her out of the abnormal rhythm. However according to patient and chart review that the pacemaker has malfunction in the past. Therefore at this time the pacemaker will be interrogated to ensure it is functioning properly. However as she has no cough or fever and lungs are clear her shortness of breath is most likely related to the tachycardic rate and not pneumonia or congestive heart failure. Patient was given a bolus of Cardizem and the heart rate reduced to 80-90 and with this she reported resolution of her shortness of breath. Chest x-ray showed changes consistent with pulmonary hypertension but no acute infiltrate or pneumothorax or pleural effusion. Blood work showed that she is not anemic as she has been in the past going against need for blood transfusion. Her white count is slightly elevated and with concern that UTI could have stimulated her symptoms a urine sample will be ordered. At this time the patient is resting comfortably she has had resolution of her shortness of breath and her tachycardia and work-up does not reveal acute blood loss anemia or significant electrolyte derangement or signs of acute kidney injury. Therefore I feel that patient will be safe for discharge and can continue home medications to help control her symptoms. As she does not have chest pain or pleuritic chest pain I do not feel there is a need for a CTA of her chest History & Record Review Discussion w/independent historian: EMS personnel, Patient and Family Lab Data Attestation: I reviewed the patient's lab results. Labs: Laboratory Results - last 24 hr 06/02/23 06/02/23 06:20 08:30 WBC 12.6 H RBC 4.39 Hgb 13.0 Hct 41.3 MCV 94.1 MCH 29.6 MCHC 31.5 L RDW Std Deviation 48.4 H RDW Coeff of Aubrie 14.0 Plt Count 226 MPV 11.1 Immature Gran % (Auto) 0.400 Neut % (Auto) 72.9 H Lymph % (Auto) 17.4 L [place] % (Auto) 5.6 Eos % (Auto) 3.3 Baso % (Auto) 0.4 Absolute Neuts (auto) 9.2 H Absolute Lymphs (auto) 2.19 Nucleated RBC % 0 Sodium 141 Potassium 3.7 Chloride 107 Carbon Dioxide 28.0 Anion Gap 6 BUN 14 Creatinine 0.72 Estim Creat Clear Calc 44.61 Est GFR (MDRD) Af Amer 100 Est GFR (MDRD) Non-Af 82 BUN/Creatinine Ratio 19.5 Glucose 176 H Calcium 9.0 Magnesium 1.8 Troponin I High Sens 36 B-Natriuretic Peptide 1049.0 H TSH 0.56 Urine Color Yellow Urine Clarity Sl. Cloudy Urine pH 6.0 Ur Specific [place] 1.015 Urine Protein 30 H Urine Glucose (UA) Normal Urine Ketones Negative Urine Occult Blood 25 H Urine Nitrite Negative Urine Bilirubin Negative Urine Urobilinogen 1 H Ur Leukocyte Esterase 500 H Urine RBC 5-10 SEEN Urine WBC 5-10 SEEN Ur Squamous Epith Cells 0-5 SEEN Urine Bacteria 1+ Urine Mucus 0 SEEN Radiography Diagnostic Testing: Clinical Impression(s) from Imaging Studies Chest X-Ray 06/02/23 06:34 IMPRESSION: Cardiomegaly with pulmonary venous hypertension indicating a mild degree of cardiac decompensation. No pneumonia or pulmonary edema identified at this time. Electronically Signed: Ramesh Moscoso MD at 7:06 EDT , 1 view chest x-ray as interpreted by the emergency medicine physician reveals mild cardiomegaly but no infiltrate pneumothorax or pleural effusion <Dr. Prashanth Leon, DO - Last Filed: 06/02/23 16:11> [facility] Lab Data Labs: Laboratory Results - last 24 hr 06/02/23 06/02/23 06:20 08:30 WBC 12.6 H RBC 4.39 Hgb 13.0 Hct 41.3 MCV 94.1 MCH 29.6 MCHC 31.5 L RDW Std Deviation 48.4 H RDW Coeff of Aubrie 14.0 Plt Count 226 MPV 11.1 Immature Gran % (Auto) 0.400 Neut % (Auto) 72.9 H Lymph % (Auto) 17.4 L [place] % (Auto) 5.6 Eos % (Auto) 3.3 Baso % (Auto) 0.4 Absolute Neuts (auto) 9.2 H Absolute Lymphs (auto) 2.19 Nucleated RBC % 0 Sodium 141 Potassium 3.7 Chloride 107 Carbon Dioxide 28.0 Anion Gap 6 BUN 14 Creatinine 0.72 Estim Creat Clear Calc 44.61 Est GFR (MDRD) Af Amer 100 Est GFR (MDRD) Non-Af 82 BUN/Creatinine Ratio 19.5 Glucose 176 H Calcium 9.0 Magnesium 1.8 Troponin I High Sens 36 B-Natriuretic Peptide 1049.0 H TSH 0.56 Urine Color Yellow Urine Clarity Sl. Cloudy Urine pH 6.0 Ur Specific [place] 1.015 Urine Protein 30 H Urine Glucose (UA) Normal Urine Ketones Negative Urine Occult Blood 25 H Urine Nitrite Negative Urine Bilirubin Negative Urine Urobilinogen 1 H Ur Leukocyte Esterase 500 H Urine RBC 5-10 SEEN Urine WBC 5-10 SEEN Ur Squamous Epith Cells 0-5 SEEN Urine Bacteria 1+ Urine Mucus 0 SEEN Radiography Diagnostic Testing: Clinical Impression(s) from Imaging Studies Chest X-Ray 06/02/23 06:34 IMPRESSION: Cardiomegaly with pulmonary venous hypertension indicating a mild degree of cardiac decompensation. No pneumonia or pulmonary edema identified at this time. Electronically Signed: Ramesh Moscoso MD at 7:06 EDT , Treatment and Re-Evaluation :: Patient was signed out to me by Dr. Monroe at 7 AM Signed out with complaint of shortness of breath noted to have A-fib with RVR with aberrancy status post 15 mg IV diltiazem bolus and returned to a normal rate. Awaiting pacemaker interrogation. While in my care patient continued to be tachycardic repeat EKG showed A-fib with RVR with aberrancy. Patient was noted to have runs of NSVT this is likely A-fib with aberrancy. Pacemaker interrogation did report runs of NSVT. Patient given additional dose 15 mg diltiazem with improvement in rate. She is also given 40 mg of IV Lasix. Given multiple IV rate controlled medicines, her advanced age, history of A-fib with RVR, evidence of heart failure with admit the patient for diuresis and rate control. Discussed with hospitalist. Impression: A-fib with RVR, CHF exacerbation Disposition: Admit to telemetry Discharge Plan Dx/Rx/DC Orders Clinical Impression: Atrial fibrillation with RVR, Chronic diastolic heart failure, History of permanent cardiac pacemaker placement, Essential hypertension Disposition Disposition: Acute Care Hospital [facility] Discharge Date/Time: 06/02/23 10:29
[2023-06-02 08:37] LABS: Mucous, Urine 0 SEEN /hpf (<or=2+)
[2023-06-02 08:42] LABS: Color, Urine Yellow (Yellow); Glucose, Dipstick Normal (Normal); Ketone-Dipstick Negative (Negative); Leukocyte Esterase-Dipstick 500 /ul (Negative); Nitrite-Dipstick Negative (Negative); Occult Blood-Urine 25 /ul (Negative); Protein-Dipstick 30 mg/dl (Negative); Specific Gravity, Urine 1.015 (1.002-1.030); Urine Bilirubin Dipstick Negative (Negative); Urine Clarity Sl. Cloudy (Clear); Urine Urobilinogen 1 mg/dl (Normal)
--- NOTE | 2023-06-02 08:54 | EKG12_ITS ---
Test Reason : SOB Blood Pressure : / mmHG Vent. Rate : 137 BPM Atrial Rate : 000 BPM P-R Int : 000 ms QRS Dur : 138 ms QT Int : 338 ms P-R-T Axes : 000 -29 132 degrees QTc Int : 510 ms Atrial fibrillation with rapid ventricular response Left bundle branch block Abnormal ECG Confirmed by TAYLOR PEARSON, DUNCAN ([id number]), online editor PITA BLEDSOE ([id number]) on 07/08/2023 2:12:35 PM Referred By: Confirmed By:KAYLA VAZQUEZ MD
[2023-06-02 08:55] LABS: Bacteria 1+ /hpf (None Seen); Red Blood Cells-Urine 5-10 SEEN /hpf (0-5); Squamous Epithelial Cells - UA 0-5 SEEN /hpf (5-10); White Blood Cells 5-10 SEEN /hpf (0-5)
[2023-06-02] MEDS: Furosemide 40 MG/4 ML Vial IV (08:57)
[2023-06-02 09:19] LABS: Troponin-I HS 36 pg/mL (3.0-54.0)
[2023-06-02] MEDS: Ibuprofen 200 MG Tablet 400 MG PO (10:03)
[2023-06-02] MEDS: Ceftriaxone 1 GM/50 ML BAG IV (10:04)
--- NOTE | 2023-06-02 11:06 | ECHOD_ITS ---
Reason For Study: CHF Procedure This was a 2D Doppler, Color Flow transthoracic echocardiogram. Exam performed portable in patient room. Left Ventricle Normal LV size. Septal bounce. Severe global left ventricular systolic dysfunction. The estimated ejection fraction is 25 %. Stage 2 diastolic dysfunction. Right Ventricle ICD or pacer leads identified within the right ventricle. Normal RV size. Normal systolic function. Atria Normal left atrium. ICD or pacer leads identified within the right atrium. Normal right atrium. Mitral Valve The mitral valve chordae are thickened and/or calcified. Mild focal mitral valve thickening. Moderate mitral annular calcification. Moderate (2+) mitral valve insufficiency. Tricuspid Valve Normal tricuspid valve. Mild (1+) tricuspid valve insufficiency. Right ventricular systolic pressure estimated to be 45 mmHg. Aortic Valve Trisinus/trileaflet aortic valve. Mild focal aortic valve calcification. Pulmonic Valve Normal pulmonic valve. Mild (1+) pulmonic valve insufficiency. Great Vessels Normal aortic root. Pericardium/Pleural No pericardial effusion. MMode/2D Measurements & Calculations LVIDd: 4.5 cm IVSd: 1.1 cm Ao root diam: 2.8 cm LVIDs: 3.9 cm LVPWd: 1.1 cm RVDd: 3.4 cm FS: 13.7 % LAV(MOD-bp): 42.9 ml LVAd ap4: 33.5 cm2 SV(MOD-sp4): 25.9 ml LAV(MOD-bp) Indexed: 26.3 ml/m2 LVLd ap4: 7.7 cm LAV(MOD-sp2): 45.3 ml EDV(MOD-sp4): 117.4 ml LAV(MOD-sp4): 40.3 ml EDV(sp4-el): 123.9 ml LVAs ap4: 29.2 cm2 LVLs ap4: 7.5 cm ESV(MOD-sp4): 91.5 ml ESV(sp4-el): 96.0 ml EF(MOD-sp4): 22.1 % EF(sp4-el): 22.5 % SV(sp4-el): 27.9 ml LA A4 area: 16.5 cm2 LA dimension(2D): 4.2 cm RA A4 area: 15.4 cm2 Time Measurements MV dec time: 0.19 sec Doppler Measurements & Calculations MV E max robel: 117.6 cm/sec Lat Peak E' Robel: 6.3 cm/sec Med Peak E' Robel: 3.7 cm/sec MV A max robel: 105.0 cm/sec E/E' lat: 18.8 E/E' med: 31.8 MV E/A: 1.1 Ao V2 max: 97.0 cm/sec LV V1 max: 79.4 cm/sec PA V2 max: 91.2 cm/sec Ao max P.8 mmHg LV V1 max P.5 mmHg TR max robel: 324.8 cm/sec TR max P.2 mmHg ECHO/Echo Complete Interpretation Summary The estimated ejection fraction is 25 %. Severe global left ventricular systolic dysfunction. Moderate (2+) mitral valve insufficiency. Mild (1+) tricuspid valve insufficiency. Right ventricular systolic pressure estimated to be 45 mmHg. Ordering Physician: Tam Castaneda Referring Physician: GINGER LEE Performed By: Michelle Keith, FELIPE
[2023-06-02] MEDS: dilTIAZem CD 180 MG Capsule PO (11:39)
[2023-06-02 11:52] LABS: Bedside Glucose 176 mg/dL (74-106)
[2023-06-02] MEDS: Gabapentin 100 MG Capsule PO ×2 (11:57→16:22)
[2023-06-02] MEDS: Insulin Lispro 100 UNIT/ML INSULN.PEN SC ×3 (11:57→21:08)
[2023-06-02] MEDS: Glucerna Shake 120 ML LIQUID PO ×3 (13:24→21:12)
[2023-06-02] MEDS: Atenolol 50 MG Tablet PO (13:24)
[2023-06-02] MEDS: 0.9% Saline Lock 10 ML Syringe IV ×2 (13:27→21:09)
[2023-06-02] MEDS: Furosemide 20 MG/2 ML VIAL IV ×2 (13:27→21:08)
[2023-06-02] MEDS: Pantoprazole Sodium 40 MG Tablet PO (13:29)
--- NOTE | 2023-06-02 15:04 | NURSING ---
This RN showed Dr. Castaneda the 11:[address] Castaneda states it is not V.tach and he discussed with cardiology.
[2023-06-02] MEDS: Ferrous Sulfate 325 MG Tablet PO (16:17)
[2023-06-02] MEDS: Potassium Chloride Oral Tablet 20 MEQ PO (16:19)
[2023-06-02 16:48] LABS: Bedside Glucose 263 mg/dL (74-106)
--- NOTE | 2023-06-02 17:47 | PCM.HP.STD ---
HPI - General General Date of Admission: 06/02/23 Date of Service: 06/02/23 Chief Complaint: Shortness of breath HPI Narrative LARRY MALDONADO, is a 83 F who presents to the emergency room at [facility] with complaints of shortness of breath which started this morning, patient is a poor historian, she has baseline cognitive impairment according to her family which is worsened over the last year. Patient denies any fever, chills, or cough. On evaluation in the emergency room, patient was noted to be hypertensive and tachycardic, EKG showed changes consistent with atrial fibrillation with a rapid ventricular response with a rate of approximately 122 bpm, patient had a left bundle branch block. Emergency room physician had the patient's pacemaker interrogated, it revealed runs of nonsustained tachycardia which appeared to be V. tach-however the patient has a left bundle branch block pattern and this examiner believes that what was detected lower runs of atrial fibrillation with a wide-complex due to her left bundle branch block. Patient was given IV Cardizem to slow her rate down. Labs obtained in the emergency room revealed an elevated white blood cell count of 12.6, patient's beta natruretic peptide was elevated at 1049, patient's urinalysis was positive for leukocyte Estrace, 5-10 RBCs, and 5-10 WBCs. There was +1 bacteria noted. Chemistry profile was unremarkable. Troponin was normal. Patient had chest x-ray performed which showed evidence of vascular congestion indicating congestive heart failure. Patient will be admitted to PCU, her medications will be adjusted to limit her rate. Echocardiogram will be obtained. She will be placed on IV diuresis for CHF. Patient is not currently on any anticoagulants, it appears that the patient had an upper GI bleed in December of this year. I think patient would be high risk for complications due to full anticoagulation given this fact and the fact that she has cognitive impairment. [facility] Medical History Abdominal pain Abnormal results of thyroid function studies Anemia Anxiety and depression Atherosclerosis of coronary artery of [place] heart without angina pectoris Back pain Back pain due to injury Bladder disease Boil of lower extremity Cardiology follow-up encounter CHF (congestive heart failure) Chronic back pain Chronic diarrhea Closed left hip fracture Compression fracture Dark stools Depression Diabetes Diarrhea Dietary restriction Elevated troponin I level Essential hypertension [place] Fracture of left distal radius Frequent falls Gastroesophageal reflux disease History of CHF (congestive heart failure) History of echocardiogram History of hemorrhoids History of pulmonary embolus (PE) History of stress test Hyperlipidemia Hypertension Iron deficiency anemia Irritable bowel Ischemic cardiomyopathy Low back pain Lumbar compression fracture Lumbar spinal stenosis Memory deficit Myocardial infarct Non-smoker Nursing assistance required Oropharyngeal dysphagia Orthopedic aftercare Osteoporosis Post-menopausal Pulmonary embolism Shortness of breath on exertion 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) Type II diabetes mellitus Ulcer of right lower extremity Vitamin D deficiency Wears dentures Wears glasses Wears hearing aid Home Medications nitroglycerin 0.4 mg sublingual tablet 0.4 mg sublingual Q5M PRN Cardiac/Chest Pain #25 tabs 12/23/21 [Rx Last Taken Unknown] blood sugar diagnostic 12/30/21 [History Last Taken Unknown] blood-glucose meter 12/30/21 [History Last Taken Unknown] acetaminophen 500 mg tablet (Tylenol Extra Strength) 1,000 mg PO Q6H PRN Pain 02/21/22 [History Last Taken Unknown] gabapentin 100 mg capsule 100 mg PO TIDCM Neuropathy 05/12/22 [History Last Taken Unknown] lidocaine 5 % topical patch 1 patch topical DAILY Pain 05/12/22 [History Last Taken Unknown] menthol 0.44 %-zinc oxide 20.6 % topical ointment (Calmoseptine) 1 applic topical TID Skin protection 05/12/22 [History Last Taken Unknown] nutrition tx glu intol,lac-free,soy-fiber 0.06 gram-1.2 kcal/mL liquid (Glucerna 1.2 Norman) 120 ml PO 4X/DAY Supplement 05/12/22 [History Last Taken Unknown] tramadol 50 mg tablet 50 mg PO Q6H PRN PRN Pain Score 4-10 3 days #12 tabs 05/28/22 [Rx Last Taken Unknown] lidocaine 4 % topical patch (Aspercreme (lidocaine)) 1 patch topical DAILY PRN Pain 06/11/22 [History Last Taken Unknown] lisinopril 40 mg tablet 40 mg PO DAILY blood pressure 06/11/22 [History Last Taken Unknown] zinc oxide 20 % topical ointment 1 applic topical TID rash 06/11/22 [History Last Taken Unknown] sertraline 100 mg tablet 100 mg PO DAILY mental health 08/06/22 [History Last Taken Unknown] Prolia 60 mg/mL subcutaneous syringe (denosumab) 60 mg subcut [id number] #1 mL 11/06/22 [Rx Last Taken 2 Months Ago ~11/02/22] amlodipine 5 mg tablet 5 mg PO DAILY blood pressure #90 tabs 11/18/22 [Rx Last Taken Unknown] furosemide 40 mg tablet (Lasix) 40 mg PO BID Fluid retention- take 4 to 6 hours apart #180 tabs 11/18/22 [Rx Last Taken Unknown] atenolol 50 mg tablet 50 mg PO DAILY heart health 11/20/22 [History Last Taken Unknown] colestipol 1 gram tablet 1 g PO BID #120 tabs 01/06/23 [Rx Last Taken Unknown] empagliflozin 10 mg tablet (Jardiance) 10 mg PO DAILY #90 tabs 01/20/23 [Rx Last Taken Unknown] potassium chloride 20 mEq tablet,extended release 20 meq PO DAILY supplement #90 tabs 01/23/23 [Rx Last Taken Unknown] isosorbide mononitrate 60 mg tablet,extended release 24 hr 60 mg PO DAILY heart #90 tabs 03/03/23 [Rx Last Taken Unknown] cholecalciferol (vitamin D3) 1,250 mcg (50,000 unit) capsule 1,250 mcg PO QWEEK vitamin #12 caps 05/19/23 [Rx Last Taken 06/01/23] methimazole 5 mg tablet 2.5 mg (1/2 x 5 mg) PO DAILY #15 tabs 05/19/23 [Rx Last Taken Unknown] ferrous sulfate 325 mg (65 mg iron) tablet 325 mg PO BID #60 tabs 05/25/23 [Rx Last Taken Unknown] sucralfate 1 gram tablet 1 g PO TIDAC #90 tabs 05/25/23 [Rx Last Taken Unknown] metformin 500 mg tablet 500 mg PO DAILY diabetes 06/02/23 [History Last Taken 06/01/23] pantoprazole 40 mg tablet,delayed release 40 mg PO TID gerd 06/02/23 [History Last Taken Unknown] Allergy/AdvReac Type Severity Reaction Status Date / Time latex Allergy Other Verified 05/29/23 14:41 Family History Father CVA (cerebral vascular accident) Mother Heart disease CAD (coronary artery disease) Sister CAD (coronary artery disease) Daughter CAD (coronary artery disease) Myocardial infarction Daughter Diabetes Surgical History (Updated 06/02/23 @ 07:[address] Uzair Monroe, DO) H/O: hysterectomy History of back surgery History of cardiac catheterization History of carpal tunnel release History of coronary artery stent placement History of kyphoplasty History of permanent cardiac pacemaker placement (12/30/21) Hx of cholecystectomy Hx of knee surgery S/P hysterectomy Social History household members: none housing: house Smoking Status: Smoker, status unknown alcohol intake: never substance use type: does not use caffeine: No what type of physical activity do you participate in: none do you feel safe at home: Yes ROS ROS Narrative A reliable review of systems was not obtainable from the patient due to evidence of cognitive impairment. Vital Signs Vital Signs Vital Signs: 06/02/23 06:10 06/02/23 06:27 06/02/23 06:48 Temperature 97 F L 97.0 F L Temperature Source Temporal Temporal Pulse Rate 116 H 122 H Respiratory Rate 22 H 31 H Respiratory Effort Short of Breath Respiratory Depth Shallow Respiratory Pattern Tachypnea Blood Pressure 133/107 H Blood Pressure Mean 115 Blood Pressure Source Blood Pressure Position Blood Pressure Location Pulse Ox 96 97 Oxygen Delivery Method Room Air Nasal Cannula Room Air Oxygen Flow Rate (L/min) 2 06/02/23 07:07 06/02/23 09:01 06/02/23 09:01 Temperature 97.8 F Temperature Source Temporal Pulse Rate 81 127 H 123 H Respiratory Rate 18 Respiratory Effort Respiratory Depth Respiratory Pattern Blood Pressure 123/96 H Blood Pressure Mean 105 Blood Pressure Source Blood Pressure Position Blood Pressure Location Pulse Ox 98 Oxygen Delivery Method Room Air Oxygen Flow Rate (L/min) 06/02/23 09:05 06/02/23 10:20 06/02/23 10:28 Temperature 97.5 F L 98.9 F Temperature Source Temporal Temporal Pulse Rate 116 H 95 105 H Respiratory Rate 18 20 H Respiratory Effort Respiratory Depth Respiratory Pattern Blood Pressure 123/96 H 139/68 H 123/96 H Blood Pressure Mean 105 91 105 Blood Pressure Source Blood Pressure Position Blood Pressure Location Pulse Ox 98 95 98 Oxygen Delivery Method Room Air Room Air Room Air Oxygen Flow Rate (L/min) 06/02/23 10:47 06/02/23 11:03 06/02/23 15:05 Temperature 97.0 F L Temperature Source Temporal Pulse Rate 89 Respiratory Rate 18 Respiratory Effort Normal Non-Labored Normal Non-Labored Respiratory Depth Normal Normal Respiratory Pattern Normal Normal Blood Pressure 127/88 H Blood Pressure Mean 101 Blood Pressure Source Monitor Blood Pressure Position Semi-Fowlers Blood Pressure Location Left Arm Pulse Ox 98 Oxygen Delivery Method Room Air Room Air Room Air Oxygen Flow Rate (L/min) 06/02/23 16:04 06/02/23 13:15 06/02/23 16:34 Temperature 97.2 F L 97.1 F L Temperature Source Temporal Temporal Pulse Rate 77 76 Respiratory Rate 18 18 Respiratory Effort Respiratory Depth Respiratory Pattern Blood Pressure 131/58 H 120/79 Blood Pressure Mean 82 92 Blood Pressure Source Monitor Monitor Blood Pressure Position Semi-Fowlers Semi-Fowlers Blood Pressure Location Left Arm Left Arm Pulse Ox 94 95 94 Oxygen Delivery Method Room Air Room Air Room Air Oxygen Flow Rate (L/min) Weight Weight: 62.823 kg Body Mass Index (BMI) 23.8 Physical Exam Const alert, no apparent distress and average body habitus Constitutional Narrative: Patient is alert but shows signs of mild to moderate cognitive impairment. General Appearance: cooperative, well kempt and well developed Orientation / Consciousness: awake, oriented to person, oriented to place and oriented to time HEENT normocephalic, head/scalp atraumatic and moist oral mucous membranes Eyes PERRL, EOMs intact bilaterally and conjunctivae normal Neck supple, no JVD, thyroid normal and no carotid bruits General: trachea midline Resp normal respiratory effort, no retractions, no use of accessory muscles and clear to auscultation bilaterally Resp Narrative: Breath sounds are diminished bilaterally Auscultation: Negative for rales, rhonchi or wheezes Cardio S1 normal heart sound, S2 normal heart sound, no murmurs, no rub and no gallops Cardio Narrative: Heart rate and rhythm is irregular GI normal to inspection, nondistended, normoactive bowel sounds, soft to palpation, non-tender and non-distended Extremity no clubbing, cyanosis or edema Skin no rashes or lesions noted General Skin Exam: no breakdown Neuro CN's II-XII intact bilaterally, moves all extremities, no focal motor deficits and no sensory deficits noted Sensorium / Orientation: awake, alert, oriented to person and oriented to place Speech: speech normal Psych affect normal Results Lab / Micro Data 06/02/23 06:20 06/02/23 06:20 Labs: Laboratory Results - last 24 hr 06/02/23 06:20: WBC 12.6 H, RBC 4.39, Hgb 13.0, Hct 41.3, MCV 94.1, MCH 29.6, MCHC 31.5 L, RDW Std Deviation 48.4 H, RDW Coeff of Aubrie 14.0, Plt Count 226, MPV 11.1, Immature Gran % (Auto) 0.400, Neut % (Auto) 72.9 H, Lymph % (Auto) 17.4 L, Alfalfa % (Auto) 5.6, Eos % (Auto) 3.3, Baso % (Auto) 0.4, Absolute Neuts (auto) 9.2 H, Absolute Lymphs (auto) 2.19, Nucleated RBC % 0, Sodium 141, Potassium 3.7, Chloride 107, Carbon Dioxide 28.0, Anion Gap 6, BUN 14, Creatinine 0.72, Estim Creat Clear Calc 44.61, Est GFR (MDRD) Af Amer 100, Est GFR (MDRD) Non-Af 82, BUN/Creatinine Ratio 19.5, Glucose 176 H, Calcium 9.0, Magnesium 1.8, Troponin I High Sens 36, B-Natriuretic Peptide 1049.0 H, TSH 0.56 06/02/23 08:30: Urine Color Yellow, Urine Clarity Sl. Cloudy, Urine pH 6.0, Ur Specific [place] 1.015, Urine Protein 30 H, Urine Glucose (UA) Normal, Urine Ketones Negative, Urine Occult Blood 25 H, Urine Nitrite Negative, Urine Bilirubin Negative, Urine Urobilinogen 1 H, Ur Leukocyte Esterase 500 H, Urine RBC 5-10 SEEN, Urine WBC 5-10 SEEN, Ur Squamous Epith Cells 0-5 SEEN, Urine Bacteria 1+, Urine Mucus 0 SEEN 06/02/23 11:27: POC Glucose 176 H 06/02/23 16:16: POC Glucose 263 H Radiology Impression Chest X-Ray 06/02/23 06:34 IMPRESSION: Cardiomegaly with pulmonary venous hypertension indicating a mild degree of cardiac decompensation. No pneumonia or pulmonary edema identified at this time. Electronically Signed: Ramesh Moscoso MD at 7:06 EDT , Echocardiogram 06/02/23 11:06 Interpretation Summary The estimated ejection fraction is 25 %. Severe global left ventricular systolic dysfunction. Moderate (2+) mitral valve insufficiency. Mild (1+) tricuspid valve insufficiency. Right ventricular systolic pressure estimated to be 45 mmHg. Ordering Physician: Tam Castaneda Referring Physician: GINGER LEE Performed By: Michelle Keith RDCS Assessment & Plan Assessment/Plan (1) Atrial fibrillation with RVR: PLAN: Plan 1. Paroxysmal atrial fibrillation with RVR-patient will be admitted to PCU, I will start the patient on Cardizem CD and adjust her beta-natividad if necessary, due to the patient's cognitive impairment, I am really not sure she takes her medications as prescribed. I had cardiology look at the patient's pacemaker interrogation from today, they felt the episodes of wide-complex tachycardia was actually atrial fibrillation with the patient's underlying left bundle branch block. #2 acute on chronic systolic congestive heart failure-patient will be placed on IV Lasix, echocardiogram will be obtained #3 coronary artery disease-patient will remain on her current medications #4 cognitive impairment-etiology unclear, possibly secondary to underlying early dementia, complicates care, medical course, recovery, and prognosis #5 ischemic cardiomyopathy-complicates care, medical course, recovery, and prognosis #6 type 2 diabetes-patient's blood sugars will be monitored, sliding scale insulin will be administered as needed #7 essential hypertension-patient's blood pressure medications will be adjusted as needed Total clinical time spent by myself addressing the patient's medical issues, reviewing all of her data, and collaborating with patient's care team: 75 minutes Charges/Coding Visit Charges Inpatient E&M: 60992 Init Hosp L3
[2023-06-02] MEDS: Heparin Injection (Vial) 5,000 UNIT/ML VIAL 5000 UNIT SC (21:09)
[2023-06-02] MEDS: traMADol 50 MG Tablet PO (21:22)
[2023-06-02 21:43] LABS: Bedside Glucose 172 mg/dL (74-106)
[2023-06-03 03:00] VITALS: BP 144/69; PULSE 60; RESP 18; TEMP 36.5; O2SAT 99
[2023-06-03] MEDS: 0.9% Saline Lock 10 ML Syringe IV (05:02)
[2023-06-03] MEDS: Furosemide 20 MG/2 ML VIAL IV (05:02)
[2023-06-03 06:11] LABS: Anion Gap 3 (5-15); BUN 21 mg/dL (7-18); BUN/Creat Ratio 30.7 RATIO (10-20); Calcium,Total 8.7 mg/dL (8.5-10.1); Chloride 105 mmol/L (98-107); Creatinine, Serum 0.68 mg/dL (0.55-1.02); EST Glomerular Filtration Rate 87 mL/min (>60); Est Glom Filt Rate - Afr Amer 105 mL/min (>60); Estimated Creatinine Clearance 36.81 ml/min; Glucose 111 mg/dL (74-106); Potassium 3.5 mmol/L (3.5-5.1); Sodium Level 138 mmol/L (136-145)
[2023-06-03 06:55] LABS: Bedside Glucose 122 mg/dL (74-106)
[2023-06-03 06:56] VITALS: O2SAT 96
[2023-06-03 08:15] VITALS: BP 125/61; PULSE 60; RESP 16; TEMP 36.3; O2SAT 94
[2023-06-03] MEDS: Ferrous Sulfate 325 MG Tablet PO (08:18)
[2023-06-03] MEDS: metFORMIN HCl 500 MG Tablet PO (08:18)
[2023-06-03] MEDS: dilTIAZem CD 180 MG Capsule PO (08:19)
[2023-06-03] MEDS: Potassium Chloride Oral Tablet 20 MEQ PO (08:19)
[2023-06-03] MEDS: Heparin Injection (Vial) 5,000 UNIT/ML VIAL 5000 UNIT SC (08:19)
[2023-06-03] MEDS: Isosorbide Mononitrate 60 MG Tablet PO (08:19)
[2023-06-03] MEDS: Atenolol 50 MG Tablet PO (08:20)
[2023-06-03] MEDS: methIMAzole 5 MG TABLET 2.5 MG PO (08:20)
[2023-06-03] MEDS: Empagliflozin 10 MG Tablet PO (08:20)
[2023-06-03] MEDS: Famotidine 20 MG Tablet 40 MG PO (08:21)
[2023-06-03] MEDS: Sertraline 100 MG Tablet PO (08:21)
[2023-06-03] MEDS: Lisinopril 40 MG Tablet PO (08:21)
[2023-06-03] MEDS: Gabapentin 100 MG Capsule PO ×2 (08:24→11:09)
[2023-06-03] MEDS: Cephalexin 500 MG Capsule PO (10:56)
[2023-06-03] MEDS: Insulin Lispro 100 UNIT/ML INSULN.PEN SC (11:02)
[2023-06-03 11:25] LABS: Bedside Glucose 168 mg/dL (74-106)
--- NOTE | 2023-06-03 13:50 | PCM.DC ---
Discharge Instructions Diet Discharge Diet: No restrictions Activity Discharge Activity: Return to Normal Activity Weight Bearing Status: Full weight bearing Follow Up Care Test Results: Test results from this visit will be discussed in further detail at your follow-up appointment, if applicable. Discharge Plan Admission Admit Date/Time: 06/02/23 10:47 Primary Reason for Your Visit: a-fib, congestive heart failure Attending Provider: Tam Castaneda Primary Care Provider: Mary Azevedo Instructions Additional Instructions / Restrictions: Recommend you take Immodium 2 mg, two twice a day for loose stools Discharge Orders/Prescriptions Prescriptions: New acetaminophen 325 mg Tablet 650 mg PO Q6H PRN PRN (Reason: Pain 1-10 Or Fever >100.7) Qty: 0 0RF diltiazem HCl 180 mg Capsule,Extended Release 24hr 180 mg PO DAILY Qty: 30 0RF famotidine 20 mg Tablet 40 mg PO BID Qty: 60 0RF dicyclomine 20 mg tablet 20 mg PO BID Qty: 60 0RF Continued sertraline 100 mg tablet 100 mg PO DAILY lisinopril 40 mg tablet 40 mg PO DAILY Prolia 60 mg/mL syringe 60 mg subcut [id number] Qty: 1 1RF Jardiance 10 mg tablet 10 mg PO DAILY Qty: 90 3RF Glucerna 1.2 [place] 0.06-1.2 gram-kcal/mL liquid 120 ml PO 4X/DAY atenolol 50 mg tablet 50 mg PO DAILY Rx Instructions: Take 1 tablet by mouth once daily for blood pressure metformin 500 mg tablet 500 mg PO DAILY furosemide [Lasix] 40 mg tablet 40 mg PO BID Qty: 180 3RF isosorbide mononitrate 60 mg tablet extended release 24 hr 60 mg PO DAILY Qty: 90 3RF Rx Instructions: Take 1 tablet by mouth once daily methimazole 5 mg tablet 2.5 mg PO DAILY Qty: 15 6RF cholecalciferol (vitamin D3) 1,250 mcg (50,000 unit) capsule 1,250 mcg PO QWEEK Qty: 12 1RF ferrous sulfate 325 mg (65 mg iron) tablet 325 mg PO BID Qty: 60 1RF Changed potassium chloride 20 mEq tablet extended release 20 meq PO BIDCM Qty: 90 2RF Rx Instructions: Take 1 tablet by mouth once daily Discontinued acetaminophen [Tylenol Extra Strength] 500 mg tablet 1,000 mg PO Q6H PRN (Reason: Pain) lidocaine [Aspercreme (lidocaine)] 4 % adhesive patch,medicated 1 patch topical DAILY PRN (Reason: Pain) zinc oxide 20 % ointment 1 applic topical TID lidocaine 5 % adhesive patch,medicated 1 patch topical DAILY Protocol: *Topical Application Instructions APPLICATION INSTRUCTIONS: back gabapentin 100 mg capsule 100 mg PO TIDCM menthol-zinc oxide [Calmoseptine] 0.44-20.6 % ointment 1 applic topical TID Protocol: *Topical Application Instructions APPLICATION INSTRUCTIONS: apply to groin and perineal tid tramadol 50 mg Tablet 50 mg PO Q6H PRN PRN (Reason: Pain Score 4-10) 3 Days Qty: 12 0RF pantoprazole 40 mg tablet,delayed release (DR/EC) 40 mg PO TID nitroglycerin 0.4 mg tablet, sublingual 0.4 mg sublingual Q5M PRN (Reason: Cardiac/Chest Pain) Qty: 25 3RF amlodipine 5 mg tablet 5 mg PO DAILY Qty: 90 3RF Hold Instructions: HYPOTENSION colestipol 1 gram tablet 1 g PO BID Qty: 120 3RF sucralfate 1 gram tablet 1 g PO TIDAC Qty: 90 1RF No Action (DME) blood sugar diagnostic Strip See Rx Instructions .ROUTE .MEDSUPPLY Rx Instructions: test three times a day (DME) blood-glucose meter Kit See Rx Instructions .ROUTE .MEDSUPPLY Rx Instructions: As directed Referrals / Follow Up: Mary Azevedo MD [Primary Care Provider] - In 1 Week (bring in all your medicines with you) Sumeet Bauer DO [Med Staff - Active Staff] - Within 1 Month Disposition Disposition (needs filled in before D/C Order can be placed): Home, Self Care
[2023-06-03 14:34] VITALS: BP 94/65; PULSE 60; RESP 16; TEMP 36; O2SAT 98
--- NOTE | 2023-06-03 15:05 | CASEMGMT ---
JUDSON ANDERSON Face to Face with patient for initial transition planning/care coordination assessment. JUDSON ANDERSON introduced self and role at [facility]. Patient sitting in chair, alert and oriented, daughter at bedside. Patient willing to participate in assessment and is able to answer all questions appropriately. Care providers, pharmacy, and demographics verified. Patient wishes to discharge home and is interested in CCN. JUDSON ANDERSON made referral. Patient states he has no further needs or concerns at this time. CM to follow for discharge planning needs that may arise. PCP: Roberto Carlos Specialists: Friend, GI; , glass silverer Preferred Pharmacy: [facility] Insurance: [email or web address] Prescription Benefit: yes Living Will/HPOA: yes, daughter Ailyn Stack LNOK: daughters Living Arrangements: Patient lives alone in a single story apartment with no steps. Patient states she is independent at home. Transportation: daughter, son DME/HHC: Patient has shower chair, raised toilet, cane, walker, grab bars. Patient has had [facility] HHC in the past. JUDSON ANDERSON made referral to CCN. Disposition Plan: Patient to discharge home with CCN, family support, and follow-up plans in place. Sharyn TERESA, RN, CM
--- NOTE | 2023-06-03 15:32 | DS.PCM_ITS ---
Providers Date of Admission: 06/02/23 Date of Discharge: 06/03/23 Primary Care Physician: Dr. Mary Azevedo MD Reason For Visit: ATRIAL FIBRILLATION W/ RVR, CHF EXACERBATION Diagnosis Discharge Diagnosis (1) Atrial fibrillation with RVR: Status: Acute Code(s): I48.91 - Unspecified atrial fibrillation Plan 1. Paroxysmal atrial fibrillation with RVR-patient will be admitted to PCU, I will start the patient on Cardizem CD and adjust her beta-natividad if necessary, due to the patient's cognitive impairment, I am really not sure she takes her medications as prescribed. I had cardiology look at the patient's pacemaker interrogation from today, they felt the episodes of wide-complex tachycardia was actually atrial fibrillation with the patient's underlying left bundle branch block. #2 acute on chronic systolic congestive heart failure-patient will be placed on IV Lasix, echocardiogram will be obtained #3 coronary artery disease-patient will remain on her current medications #4 cognitive impairment-etiology unclear, mild in nature #5 ischemic cardiomyopathy-complicates care, medical course, recovery, and prognosis #6 type 2 diabetes-patient's blood sugars will be monitored, sliding scale insulin will be administered as needed #7 essential hypertension-patient's blood pressure medications will be adjusted as needed #8 hypothyroidism #9 moderate pulmonary hypertension Total clinical time spent by myself addressing the patient's medical issues, reviewing all of her data, and collaborating with patient's care team: 75 minutes Medications at Discharge Home Medications blood sugar diagnostic 12/30/21 blood-glucose meter 12/30/21 nutrition tx glu intol,lac-free,soy-fiber 0.06 gram-1.2 kcal/mL liquid (Glucerna 1.2 Norman) 120 ml PO 4X/DAY Supplement 05/12/22 lisinopril 40 mg tablet 40 mg PO DAILY blood pressure 06/11/22 sertraline 100 mg tablet 100 mg PO DAILY mental health 08/06/22 Prolia 60 mg/mL subcutaneous syringe (denosumab) 60 mg subcut [id number] #1 mL 11/06/22 furosemide 40 mg tablet (Lasix) 40 mg PO BID Fluid retention- take 4 to 6 hours apart #180 tabs 11/18/22 atenolol 50 mg tablet 50 mg PO DAILY heart health 11/20/22 empagliflozin 10 mg tablet (Jardiance) 10 mg PO DAILY heart health #90 tabs 01/20/23 isosorbide mononitrate 60 mg tablet,extended release 24 hr 60 mg PO DAILY heart #90 tabs 03/03/23 cholecalciferol (vitamin D3) 1,250 mcg (50,000 unit) capsule 1,250 mcg PO QWEEK vitamin #12 caps 05/19/23 methimazole 5 mg tablet 2.5 mg (1/2 x 5 mg) PO DAILY #15 tabs 05/19/23 ferrous sulfate 325 mg (65 mg iron) tablet 325 mg PO BID supplement #60 tabs 05/25/23 metformin 500 mg tablet 500 mg PO DAILY diabetes 06/02/23 acetaminophen 325 mg tablet 650 mg (2 x 325 mg) PO Q6H PRN PRN Pain 1-10 Or Fever >100.7 #0 tabs 06/03/23 dicyclomine 20 mg tablet 20 mg PO BID #60 tabs 06/03/23 diltiazem HCl 180 mg capsule,extended release 24 hr 180 mg PO DAILY #30 caps 06/03/23 famotidine 20 mg tablet 40 mg (2 x 20 mg) PO BID #60 tabs 06/03/23 potassium chloride 20 mEq tablet,extended release 20 meq PO BIDCM supplement #90 tabs 06/03/23 Hospital Course Operations None Procedures 2-D Echocardiogram Summary of Care Provided Minutes Spent on Discharge: 31 Hospital Course: This 83-year-old white female was seen in the emergency room at [facility] with complaints of shortness of breath which happened suddenly the morning she was seen in the emergency room. On evaluation in the emergency room, patient was noted to be hypertensive and tachycardic, EKG showed changes consistent with atrial fibrillation with a rapid ventricular response, patient had a pacemaker and this was interrogated showing evidence of possible nonsustained V. tach, it was felt however since the patient's baseline EKG showed a left bundle branch block, these episodes were actually atrial fibs with poorly controlled ventricular response. Patient was given IV Cardizem in the emergency room, labs were obtained, patient's white blood cell count was slightly elevated at 12.6, beta nitric peptide was elevated at 1049, patient's urinalysis was positive for leukocyte Estrace and she was given IV Rocephin in the emergency room. Patient's troponin was normal. Patient's chest x-ray showed evidence of vascular congestion indicating congestive heart failure. Patient was admitted to PCU, she was placed on telemetry and rate limiting medications were adjusted, shortly after her admission to PCU, her rhythm converted to a paced rhythm at approximately 60, patient was given IV Lasix for diuresis and she did not require any oxygen. Patient had an echocardiogram performed which showed an EF of 25% and a right ventricular systolic pressure 45 mm. On 06/03/23, patient was seen and examined: On examination she appeared in good health and spirits, she does not appear to be in any distress. Vital signs as documented. Skin warm and dry and without overt rashes. Neck without JVD, thyroid appears normal, trachea is midline, neck is supple. Lungs clear, normal air movement was noted. Heart exam notable for regular rhythm-paced, normal sounds and absence of murmurs, rubs or gallops. Abdomen unremarkable and without evidence of organomegaly, masses, or abdominal aortic enlargement, bowel sounds are present in all 4 quadrants, no abdominal tenderness was noted. Extremities nonedematous, no cyanosis was noted, no clubbing was noted. Neuro: Cranial nerves II through XII are grossly intact, no focal motor deficits were noted, sensation to light touch and pinprick is intact, motor exam 5/5 throughout. Psych: Patient is alert and oriented x3, she does not appear anxious or depressed, she does not appear agitated. On 06/03/2023, patient was felt to be stable for discharge home, I went over her medications with her daughter at the bedside prior to her discharge, I also called her pharmacy to update them on medication changes. Weight / BMI Weight Weight: 62.823 kg Body Mass Index (BMI) 23.8 ABG / Lab / Microbiology Data 06/02/23 06:20 06/03/23 05:19 Laboratory: Laboratory Results - last 24 hr 06/02/23 16:16: POC Glucose 263 H 06/02/23 21:06: POC Glucose 172 H 06/03/23 05:19: Sodium 138, Potassium 3.5, Chloride 105, Carbon Dioxide 30.0, Anion Gap 3 L, BUN 21 H, Creatinine 0.68, Estim Creat Clear Calc 36.81, Est GFR (MDRD) Af Amer 105, Est GFR (MDRD) Non-Af 87, BUN/Creatinine Ratio 30.7 H, Glucose 111 H, Calcium 8.7 06/03/23 06:38: POC Glucose 122 H 06/03/23 10:59: POC Glucose 168 H Microbiology: Microbiology 06/03/23 11:10 Stool C. 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 Gram negative reina D/C Instructions Discharge Diet: No restrictions Weight Bearing Status: Full weight bearing Meaningful Use Info Meaningful Use Diagnoses (Choose all that apply): CHF CHF CEDRICK/ARB ordered at discharge?: Yes Documented LVEF (%): 25 Discharge Plan Admission Admit Date/Time: 06/02/23 10:47 Primary Reason for Your Visit: a-fib, congestive heart failure Attending Provider: Tam Castaneda Primary Care Provider: Mary Azevedo Instructions Additional Instructions / Restrictions: Recommend you take Immodium 2 mg, two twice a day for loose stools Discharge Orders/Prescriptions Prescriptions: New acetaminophen 325 mg Tablet 650 mg PO Q6H PRN PRN (Reason: Pain 1-10 Or Fever >100.7) Qty: 0 0RF diltiazem HCl 180 mg Capsule,Extended Release 24hr 180 mg PO DAILY Qty: 30 0RF famotidine 20 mg Tablet 40 mg PO BID Qty: 60 0RF dicyclomine 20 mg tablet 20 mg PO BID Qty: 60 0RF Continued sertraline 100 mg tablet 100 mg PO DAILY lisinopril 40 mg tablet 40 mg PO DAILY Prolia 60 mg/mL syringe 60 mg subcut [id number] Qty: 1 1RF Jardiance 10 mg tablet 10 mg PO DAILY Qty: 90 3RF Glucerna 1.2 Norman 0.06-1.2 gram-kcal/mL liquid 120 ml PO 4X/DAY atenolol 50 mg tablet 50 mg PO DAILY Rx Instructions: Take 1 tablet by mouth once daily for blood pressure metformin 500 mg tablet 500 mg PO DAILY furosemide [Lasix] 40 mg tablet 40 mg PO BID Qty: 180 3RF isosorbide mononitrate 60 mg tablet extended release 24 hr 60 mg PO DAILY Qty: 90 3RF Rx Instructions: Take 1 tablet by mouth once daily methimazole 5 mg tablet 2.5 mg PO DAILY Qty: 15 6RF cholecalciferol (vitamin D3) 1,250 mcg (50,000 unit) capsule 1,250 mcg PO QWEEK Qty: 12 1RF ferrous sulfate 325 mg (65 mg iron) tablet 325 mg PO BID Qty: 60 1RF Changed potassium chloride 20 mEq tablet extended release 20 meq PO BIDCM Qty: 90 2RF Rx Instructions: Take 1 tablet by mouth once daily Discontinued acetaminophen [Tylenol Extra Strength] 500 mg tablet 1,000 mg PO Q6H PRN (Reason: Pain) lidocaine [Aspercreme (lidocaine)] 4 % adhesive patch,medicated 1 patch topical DAILY PRN (Reason: Pain) zinc oxide 20 % ointment 1 applic topical TID lidocaine 5 % adhesive patch,medicated 1 patch topical DAILY Protocol: *Topical Application Instructions APPLICATION INSTRUCTIONS: back gabapentin 100 mg capsule 100 mg PO TIDCM menthol-zinc oxide [Calmoseptine] 0.44-20.6 % ointment 1 applic topical TID Protocol: *Topical Application Instructions APPLICATION INSTRUCTIONS: apply to groin and perineal tid tramadol 50 mg Tablet 50 mg PO Q6H PRN PRN (Reason: Pain Score 4-10) 3 Days Qty: 12 0RF pantoprazole 40 mg tablet,delayed release (DR/EC) 40 mg PO TID nitroglycerin 0.4 mg tablet, sublingual 0.4 mg sublingual Q5M PRN (Reason: Cardiac/Chest Pain) Qty: 25 3RF amlodipine 5 mg tablet 5 mg PO DAILY Qty: 90 3RF Hold Instructions: HYPOTENSION colestipol 1 gram tablet 1 g PO BID Qty: 120 3RF sucralfate 1 gram tablet 1 g PO TIDAC Qty: 90 1RF No Action (DME) blood sugar diagnostic Strip See Rx Instructions .ROUTE .MEDSUPPLY Rx Instructions: test three times a day (DME) blood-glucose meter Kit See Rx Instructions .ROUTE .MEDSUPPLY Rx Instructions: As directed Referrals / Follow Up: Mary Azevedo MD [Primary Care Provider] - In 1 Week (bring in all your medicines with you) Sumeet Bauer DO [Med Staff - Active Staff] - Within 1 Month Disposition Disposition (needs filled in before D/C Order can be placed): Home, Self Care Charges/Coding Visit Charges Inpatient E&M: 00665 Disch Hosp >30min
== END 2023-06-03 15:56 | disposition home or self-care (01) ==
LOC: ED 06:39 → PCU 11:33
PROVIDERS: Emergency Medicine; Admitting Provider Internal Medicine; Emergency Provider Emergency Medicine; PCP Internal Medicine; Visit Provider Internal Medicine
DX: I48.0 Paroxysmal atrial fibrillation (principal); F03.90 Unspecified dementia, unspecified severity, without behavioral disturbance, psychotic disturbance, mood disturbance, and anxiety; I11.0 Hypertensive heart disease with heart failure; I50.23 Acute on chronic systolic (congestive) heart failure; I27.20 Pulmonary hypertension, unspecified; E11.9 Type 2 diabetes mellitus without complications; E03.9 Hypothyroidism, unspecified; I25.10 Atherosclerotic heart disease of native coronary artery without angina pectoris; I25.5 Ischemic cardiomyopathy; E78.5 Hyperlipidemia, unspecified; Z79.84 Long term (current) use of oral hypoglycemic drugs; Z79.899 Other long term (current) drug therapy; Z95.0 Presence of cardiac pacemaker; Z95.5 Presence of coronary angioplasty implant and graft
CPT/HCPCS: 36415; 71045; 80048; 81001; 82962; 83735; 83880; 84443; 84484; 85025; 87077; 87086; 87088; 87186; 87493; 93005; 93306; 96365; 96372; 96375; 96376; 97110; 97162; 97166; 97530; 97535; 99221; 99285; A4216; G0378; J1940

== ENCOUNTER 2023-06-10 15:45 | Emergency (ER) | payer MEDICARE, SELFPAY ==
[2023-06-10 15:47] VITALS: BP 119/103; PULSE 60; RESP 18; TEMP 36.1; O2SAT 100
[2023-06-10 16:06] VITALS: BP 127/67; PULSE 60; RESP 15; O2SAT 97
[2023-06-10 16:12] VITALS: BMI 22.6
--- NOTE | 2023-06-10 16:23 | ED.VIS.CHEST ---
HPI History of Present Illness Chief Complaint: Other, Pain/Inj Detail of Chief Complaint: Left anterior chest pain Informant: patient Onset/Context/Timing Onset: Yesterday Narrative Narrative: Patient presents with left anterior chest pain. She states that she noticed it when she was changing close yesterday. She is not sure if she strained a muscle. She did not fall or injure herself. She does not feel short of breath. [facility] Medical History Abdominal pain Abnormal results of thyroid function studies Anemia Anxiety and depression Atherosclerosis of coronary artery of [place] heart without angina pectoris Back pain Back pain due to injury Bladder disease Boil of lower extremity Cardiology follow-up encounter CHF (congestive heart failure) Chronic back pain Chronic diarrhea Closed left hip fracture Compression fracture Dark stools Depression Diabetes Diarrhea Dietary restriction Elevated troponin I level Essential hypertension [place] Fracture of left distal radius Frequent falls Gastroesophageal reflux disease History of CHF (congestive heart failure) History of echocardiogram History of hemorrhoids History of pulmonary embolus (PE) History of stress test Hyperlipidemia Hypertension Iron deficiency anemia Irritable bowel Ischemic cardiomyopathy Low back pain Lumbar compression fracture Lumbar spinal stenosis Memory deficit Myocardial infarct Non-smoker Nursing assistance required Oropharyngeal dysphagia Orthopedic aftercare Osteoporosis Post-menopausal Pulmonary embolism Shortness of breath on exertion 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) Type II diabetes mellitus Ulcer of right lower extremity Vitamin D deficiency Wears dentures Wears glasses Wears hearing aid Home Medications blood sugar diagnostic 12/30/21 [History Last Taken Unknown] blood-glucose meter 12/30/21 [History Last Taken Unknown] nutrition tx glu intol,lac-free,soy-fiber 0.06 gram-1.2 kcal/mL liquid (Glucerna 1.2 Norman) 120 ml PO 4X/DAY Supplement 05/12/22 [History Last Taken Unknown] lisinopril 40 mg tablet 40 mg PO DAILY blood pressure 06/11/22 [History Last Taken Unknown] sertraline 100 mg tablet 100 mg PO DAILY mental health 08/06/22 [History Last Taken Unknown] Prolia 60 mg/mL subcutaneous syringe (denosumab) 60 mg subcut [id number] #1 mL 11/06/22 [Rx Last Taken 2 Months Ago ~11/02/22] furosemide 40 mg tablet (Lasix) 40 mg PO BID Fluid retention- take 4 to 6 hours apart #180 tabs 11/18/22 [Rx Last Taken Unknown] atenolol 50 mg tablet 50 mg PO DAILY heart health 11/20/22 [History Last Taken Unknown] empagliflozin 10 mg tablet (Jardiance) 10 mg PO DAILY heart health #90 tabs 01/20/23 [Rx Last Taken Unknown] isosorbide mononitrate 60 mg tablet,extended release 24 hr 60 mg PO DAILY heart #90 tabs 03/03/23 [Rx Last Taken Unknown] cholecalciferol (vitamin D3) 1,250 mcg (50,000 unit) capsule 1,250 mcg PO QWEEK vitamin #12 caps 05/19/23 [Rx Last Taken 06/01/23] methimazole 5 mg tablet 2.5 mg (1/2 x 5 mg) PO DAILY #15 tabs 05/19/23 [Rx Last Taken Unknown] ferrous sulfate 325 mg (65 mg iron) tablet 325 mg PO BID supplement #60 tabs 05/25/23 [Rx Last Taken Unknown] metformin 500 mg tablet 500 mg PO DAILY diabetes 06/02/23 [History Last Taken 06/01/23] acetaminophen 325 mg tablet 650 mg (2 x 325 mg) PO Q6H PRN PRN Pain 1-10 Or Fever >100.7 #0 tabs 06/03/23 [Rx Last Taken Unknown] dicyclomine 20 mg tablet 20 mg PO BID #60 tabs 06/03/23 [Rx Last Taken Unknown] diltiazem HCl 180 mg capsule,extended release 24 hr 180 mg PO DAILY #30 caps 06/03/23 [Rx Last Taken Unknown] famotidine 20 mg tablet 40 mg (2 x 20 mg) PO BID #60 tabs 06/03/23 [Rx Last Taken Unknown] potassium chloride 20 mEq tablet,extended release 20 meq PO BIDCM supplement #90 tabs 06/03/23 [Rx Last Taken Unknown] lidocaine 5 % topical patch (Lidoderm) 2 patch topical DAILY #15 ea 06/10/23 [Rx Last Taken Unknown] Allergy/AdvReac Type Severity Reaction Status Date / Time latex Allergy Other Verified 06/10/23 15:49 Family History Father CVA (cerebral vascular accident) Mother Heart disease CAD (coronary artery disease) Sister CAD (coronary artery disease) Daughter CAD (coronary artery disease) Myocardial infarction Daughter Diabetes Surgical History H/O: hysterectomy History of back surgery History of cardiac catheterization History of carpal tunnel release History of coronary artery stent placement History of kyphoplasty History of permanent cardiac pacemaker placement (12/30/21) Hx of cholecystectomy Hx of knee surgery S/P hysterectomy Social History household members: none housing: house Smoking Status: Smoker, status unknown alcohol intake: never substance use type: does not use caffeine: No what type of physical activity do you participate in: none do you feel safe at home: Yes ROS ROS ED Constitutional Constitutional ED: Denies chills or fever(s) Eyes Eyes: Denies change in vision or discharge from eye(s) ENT ENT ED: Denies discharge from eye(s), rhinorrhea or sore throat Cardiovascular Cardiovascular: Reports chest pain; Denies palpitations Respiratory/Chest Respiratory/Chest: Denies cough or dyspnea Gastrointestinal Gastrointestinal: Denies abdominal pain, nausea or vomiting Genitourinary Genitourinary ED: Denies dysuria Musculoskeletal Musculoskeletal: Denies back pain or extremity pain Integumentary Denies Abrasions or rash Neurologic Neurologic: Denies headache(s) or weakness Psychiatric Psychiatric: Denies anxiety or depression Allergic/Immunologic Allergic/Immunologic ED: Denies lip swelling or urticaria EXAM Physical Exam Const Vital Signs: 06/10/23 15:47 06/10/23 16:06 06/10/23 16:06 Temperature 97 F L Temperature Source Temporal Pulse Rate 60 60 Respiratory Rate 18 15 Respiratory Effort Normal Respiratory Pattern Normal Blood Pressure 119/103 H 127/67 H Blood Pressure Mean 108 87 Pulse Ox 100 97 Oxygen Delivery Method Room Air Room Air Positive well nourished and well developed General Appearance ED: well developed HEENT Reports normocephalic and head/scalp atraumatic Eyes PERRL and EOMs intact bilaterally Neck supple Chest Wall inspection of chest normal Chest Narrative: Left anterior lower chest wall tenderness to palpation. No ecchymosis or erythema. Resp normal respiratory effort and clear to auscultation bilaterally Cardio regular rate and regular rhythm GI normal to inspection, nondistended, normoactive bowel sounds Palpation: soft Extremity normal to inspection Neuro oriented x3 and no sensory deficits noted Sensorium / Orientation: alert Motor Exam: strength 5/5 throughout Psych mental status grossly normal Skin no rashes or lesions noted Heart Score History: Slightly/Non-Suspicious ECG: Normal Age: >/= 65 years Risk Factors: >/= 3 Risk Factors or History of CAD Troponin: </= Normal Limit Score: 4 MDM MDM MDM Narrative Medical decision making narrative: Patient given ibuprofen and Lidoderm patch to the chest wall. Patient is placed on patient monitor. Labwork obtained to evaluate for leukocytosis, anemia, and electrolyte derangement. EKG obtained to evaluate for cardiac arrhythmia/ischemia. Chest x-ray obtained to evaluate for acute lung pathology, cardiac size, or mediastinal abnormality. History & Record Review Discussion w/independent historian: Patient and Family Additional record(s) reviewed:: Prior ED visit and Prior labs Lab Data Attestation: I reviewed the patient's lab results. Labs: Laboratory Results - last 24 hr 06/10/23 16:35 WBC 12.3 H RBC 4.53 Hgb 13.3 Hct 41.9 MCV 92.5 MCH 29.4 MCHC 31.7 L RDW Std Deviation 47.9 H RDW Coeff of Aubrie 14.0 Plt Count 279 MPV 10.7 Immature Gran % (Auto) 1.100 H Neut % (Auto) 65.0 Lymph % (Auto) 19.8 [place] % (Auto) 9.6 Eos % (Auto) 2.6 Baso % (Auto) 1.9 H Absolute Neuts (auto) 8.0 H Absolute Lymphs (auto) 2.43 Nucleated RBC % 0 Sodium 137 Potassium 4.1 Chloride 103 Carbon Dioxide 27.0 Anion Gap 7 BUN 30 H Creatinine 0.95 Estim Creat Clear Calc 38.75 Est GFR (MDRD) Af Amer 72 Est GFR (MDRD) Non-Af 60 BUN/Creatinine Ratio 31.5 H Glucose 168 H Calcium 9.8 Troponin I High Sens 21 Radiography Chest X-Ray - ED: 1 View, Read by ED Physician and Chronic Changes Diagnostic Testing: Clinical Impression(s) from Imaging Studies Chest X-Ray 06/10/23 16:45 IMPRESSION: Cardiomegaly without radiographic evidence of acute cardiopulmonary disease. Electronically Signed: Jacoby Gallardo MD at 17:19 EDT Reading Location ID and State: [facility] / [place] Tel , Service support , EKG Initial EKG: Attestation: I personally reviewed and interpreted this EKG as follows: Interpretation: - (Paced rhythm at 60 bpm. Left bundle branch block. No acute ischemia.) Treatment and Re-Evaluation :: CBC with a white count 12.3 with normal differential. Hemoglobin is normal at 13.3. Chemistry studies reveal a BUN of 30. Normal creatinine and potassium. Troponin is normal at 21. Portable chest x-ray per my interpretation feels chronic changes with no acute findings. EKG is paced with no acute ischemia. On repeat evaluation patient does feel improved. I will write her prescription for Lidoderm patches. I do believe she has chest wall strain given her exam findings and story. Discharge Plan Triage Chief Complaint: Other, Pain/Inj ED Provider: Nighat Velasco Dx/Rx/DC Orders Clinical Impression: Strain of chest wall Instructions: ED Chest Wall Strain Prescriptions: New lidocaine [Lidoderm] 5 % adhesive patch,medicated 2 patch topical DAILY Qty: 15 0RF Rx Instructions: leave on most painful area for up to 12 hrs No Action sertraline 100 mg tablet 100 mg PO DAILY lisinopril 40 mg tablet 40 mg PO DAILY Prolia 60 mg/mL syringe 60 mg subcut [id number] Qty: 1 1RF Jardiance 10 mg tablet 10 mg PO DAILY Qty: 90 3RF (DME) blood sugar diagnostic Strip See Rx Instructions .ROUTE .MEDSUPPLY Rx Instructions: test three times a day (DME) blood-glucose meter Kit See Rx Instructions .ROUTE .MEDSUPPLY Rx Instructions: As directed Glucerna 1.2 [place] 0.06-1.2 gram-kcal/mL liquid 120 ml PO 4X/DAY atenolol 50 mg tablet 50 mg PO DAILY Rx Instructions: Take 1 tablet by mouth once daily for blood pressure metformin 500 mg tablet 500 mg PO DAILY acetaminophen 325 mg Tablet 650 mg PO Q6H PRN PRN (Reason: Pain 1-10 Or Fever >100.7) Qty: 0 0RF diltiazem HCl 180 mg Capsule,Extended Release 24hr 180 mg PO DAILY Qty: 30 0RF famotidine 20 mg Tablet 40 mg PO BID Qty: 60 0RF dicyclomine 20 mg tablet 20 mg PO BID Qty: 60 0RF potassium chloride 20 mEq tablet extended release 20 meq PO BIDCM Qty: 90 2RF Rx Instructions: Take 1 tablet by mouth once daily furosemide [Lasix] 40 mg tablet 40 mg PO BID Qty: 180 3RF isosorbide mononitrate 60 mg tablet extended release 24 hr 60 mg PO DAILY Qty: 90 3RF Rx Instructions: Take 1 tablet by mouth once daily methimazole 5 mg tablet 2.5 mg PO DAILY Qty: 15 6RF cholecalciferol (vitamin D3) 1,250 mcg (50,000 unit) capsule 1,250 mcg PO QWEEK Qty: 12 1RF ferrous sulfate 325 mg (65 mg iron) tablet 325 mg PO BID Qty: 60 1RF Primary Care Provider: Mary Azevedo Referrals: Mary Azevedo MD [Primary Care Provider] - 1-2 Weeks Disposition Disposition: Home, Self Care
[2023-06-10] MEDS: Ibuprofen 200 MG Tablet 400 MG PO (16:36)
[2023-06-10] MEDS: Lidocaine 5% Patch 1 PATCH TOPICAL (16:37)
--- NOTE | 2023-06-10 16:45 | RAD_ITS ---
INDICATION: chest pain EXAMINATION/TECHNIQUE: X-RAY - portable upright AP chest x-ray COMPARISON: 06/02/2023 FINDINGS: LINES/DEVICES: Stable transvenous pacemaker. LUNGS: No consolidation, edema or effusion. No pneumothorax. MEDIASTINUM AND CARDIOVASCULAR STRUCTURES: Stable mild cardiomegaly. BONES AND SOFT TISSUES: No acute changes. RAD/Chest 1 View (Portable) IMPRESSION: Cardiomegaly without radiographic evidence of acute cardiopulmonary disease. Electronically Signed: Jacoby Gallardo MD at 17:19 EDT ,
[2023-06-10 17:00] LABS: Absolute Lymphocyte Count 2.43 X10^3/uL (0.83-4.51); Basophil# 0.23 X10^3/uL; Basophil% 1.9 % (0-1); Eosinophil# 0.32 X10^3/uL; Eosinophils% 2.6 % (0-5); Hematocrit 41.9 % (37-47); Hemoglobin 13.3 g/dL (12.0-15.0); Lymphocyte # 2.43 X10^3/ul (0.83-4.51); Lymphocyte % 19.8 % (19-41); Mean Corp Hgb Conc 31.7 g/dL (32-36); Mean Corpuscular Hgb 29.4 pg (27.0-32.0); Mean Corpuscular Volume 92.5 fL (81-99); Mean Platelet Vol. 10.7 fl (6.2-12.0); Monocyte# 1.17 X10^3/uL; Monocyte% 9.6 % (0-10); NRBC Flagged by Analyzer 0 % (0-5); Neutrophil # 7.97 X10^3/uL (2.7-7.7); Platelet Count 279 K/mm3 (150-450); RBC Distribution Width SD 47.9 fl (35.1-43.9); Red Blood Count 4.53 M/mm3 (4.2-5.4); White Blood Count 12.3 K/mm3 (4.4-11.0)
[2023-06-10 17:10] LABS: Anion Gap 7 (5-15); BUN 30 mg/dL (7-18); BUN/Creat Ratio 31.5 RATIO (10-20); Calcium,Total 9.8 mg/dL (8.5-10.1); Chloride 103 mmol/L (98-107); Creatinine, Serum 0.95 mg/dL (0.55-1.02); EST Glomerular Filtration Rate 60 mL/min (>60); Est Glom Filt Rate - Afr Amer 72 mL/min (>60); Estimated Creatinine Clearance 38.75 ml/min; Glucose 168 mg/dL (74-106); Potassium 4.1 mmol/L (3.5-5.1); Sodium Level 137 mmol/L (136-145); Troponin-I HS 21 pg/mL (3.0-54.0)
== END 2023-06-10 18:15 | disposition home or self-care (01) ==
PROVIDERS: Emergency Provider Emergency Medicine; PCP Internal Medicine; Visit Provider Emergency Medicine
DX: S29.011A Strain of muscle and tendon of front wall of thorax, initial encounter (principal); I11.0 Hypertensive heart disease with heart failure; I50.9 Heart failure, unspecified; E11.9 Type 2 diabetes mellitus without complications; E78.5 Hyperlipidemia, unspecified; I25.10 Atherosclerotic heart disease of native coronary artery without angina pectoris; R07.89 Other chest pain; X58.XXXA Exposure to other specified factors, initial encounter
CPT/HCPCS: 71045; 80048; 84484; 85025; 93005; 99283; A4216

== ENCOUNTER 2023-06-16 15:38 | Emergency (ER) | payer MEDICARE, SELFPAY ==
[2023-06-16 15:41] VITALS: BP 81/41; PULSE 68; RESP 18; TEMP 36.6; O2SAT 94; BMI 22.3
[2023-06-16 15:46] VITALS: BP 104/87
--- NOTE | 2023-06-16 16:00 | ED.VIS.FALL ---
HPI HPI - Fall History of Present Illness Chief Complaint: Fall Informant: patient Narrative Narrative: Patient states she rolled off her couch and was in a position that she really could not get up. She denies hurting herself. Patient states she rolled off her couch about 10:00 this morning. She had talked to her daughter. She was going to check in on her after work. But it sounds like the patient did not state that she was stuck. She had visiting nurse show up and enter the house. They got her up off the floor. Patient has had diarrhea in the meantime so they called EMS and she was transported in here. Patient states she has had diarrhea for about 5 or 6 months. This is ongoing. She sees Dr. Bauer. She was started on some unknown medication for this. It might be dicyclomine but she does not know. But the diarrhea continues. Is not any worse or better than it has been. She did not want to come to the hospital. She states she feels fine. She just needed help getting up. She did not hurt herself never hit her head. [facility] Medical History Abdominal pain Abnormal results of thyroid function studies Anemia Anxiety and depression Atherosclerosis of coronary artery of [place] heart without angina pectoris Back pain Back pain due to injury Bladder disease Boil of lower extremity Cardiology follow-up encounter CHF (congestive heart failure) Chronic back pain Chronic diarrhea Closed left hip fracture Compression fracture Dark stools Depression Diabetes Diarrhea Dietary restriction Elevated troponin I level Essential hypertension Fall Falls Fracture of left distal radius Frequent falls Gastroesophageal reflux disease History of CHF (congestive heart failure) History of echocardiogram History of hemorrhoids History of pulmonary embolus (PE) History of stress test Hyperlipidemia Hypertension Iron deficiency anemia Irritable bowel Ischemic cardiomyopathy Low back pain Lumbar compression fracture Lumbar spinal stenosis Memory deficit Myocardial infarct Non-smoker Nursing assistance required Oropharyngeal dysphagia Orthopedic aftercare Osteoporosis Post-menopausal Pulmonary embolism Shortness of breath on exertion 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) Type II diabetes mellitus Ulcer of right lower extremity Vitamin D deficiency Wears dentures Wears glasses Wears hearing aid Home Medications blood sugar diagnostic 12/30/21 [History Last Taken Unknown] blood-glucose meter 12/30/21 [History Last Taken Unknown] nutrition tx glu intol,lac-free,soy-fiber 0.06 gram-1.2 kcal/mL liquid (Glucerna 1.2 [place]) 120 ml PO 4X/DAY Supplement 05/12/22 [History Last Taken Unknown] lisinopril 40 mg tablet 40 mg PO DAILY blood pressure 06/11/22 [History Last Taken Unknown] sertraline 100 mg tablet 100 mg PO DAILY mental health 08/06/22 [History Last Taken Unknown] Prolia 60 mg/mL subcutaneous syringe (denosumab) 60 mg subcut [id number] #1 mL 11/06/22 [Rx Last Taken 2 Months Ago ~11/02/22] furosemide 40 mg tablet (Lasix) 40 mg PO BID Fluid retention- take 4 to 6 hours apart #180 tabs 11/18/22 [Rx Last Taken Unknown] atenolol 50 mg tablet 50 mg PO DAILY heart health 11/20/22 [History Last Taken Unknown] empagliflozin 10 mg tablet (Jardiance) 10 mg PO DAILY heart health #90 tabs 01/20/23 [Rx Last Taken Unknown] isosorbide mononitrate 60 mg tablet,extended release 24 hr 60 mg PO DAILY heart #90 tabs 03/03/23 [Rx Last Taken Unknown] cholecalciferol (vitamin D3) 1,250 mcg (50,000 unit) capsule 1,250 mcg PO QWEEK vitamin #12 caps 05/19/23 [Rx Last Taken 06/01/23] methimazole 5 mg tablet 2.5 mg (1/2 x 5 mg) PO DAILY #15 tabs 05/19/23 [Rx Last Taken Unknown] ferrous sulfate 325 mg (65 mg iron) tablet 325 mg PO BID supplement #60 tabs 05/25/23 [Rx Last Taken Unknown] metformin 500 mg tablet 500 mg PO DAILY diabetes 06/02/23 [History Last Taken 06/01/23] acetaminophen 325 mg tablet 650 mg (2 x 325 mg) PO Q6H PRN PRN Pain 1-10 Or Fever >100.7 #0 tabs 06/03/23 [Rx Last Taken Unknown] dicyclomine 20 mg tablet 20 mg PO BID #60 tabs 06/03/23 [Rx Last Taken Unknown] diltiazem HCl 180 mg capsule,extended release 24 hr 180 mg PO DAILY #30 caps 06/03/23 [Rx Last Taken Unknown] famotidine 20 mg tablet 40 mg (2 x 20 mg) PO BID #60 tabs 06/03/23 [Rx Last Taken Unknown] potassium chloride 20 mEq tablet,extended release 20 meq PO BIDCM supplement #90 tabs 06/03/23 [Rx Last Taken Unknown] lidocaine 5 % topical patch (Lidoderm) 2 patch topical DAILY #15 ea 06/10/23 [Rx Last Taken Unknown] Allergy/AdvReac Type Severity Reaction Status Date / Time latex Allergy Other Verified 06/10/23 15:49 Family History Father CVA (cerebral vascular accident) Mother Heart disease CAD (coronary artery disease) Sister CAD (coronary artery disease) Daughter CAD (coronary artery disease) Myocardial infarction Daughter Diabetes Surgical History H/O: hysterectomy History of back surgery History of cardiac catheterization History of carpal tunnel release History of coronary artery stent placement History of kyphoplasty History of permanent cardiac pacemaker placement (12/30/21) Hx of cholecystectomy Hx of knee surgery S/P hysterectomy Social History household members: none housing: house Smoking Status: Unknown if ever smoked alcohol intake: never substance use type: does not use caffeine: No what type of physical activity do you participate in: none do you feel safe at home: Yes ROS ROS ED ROS Narrative A complete review of systems was performed and is negative except as documented in the history of present illness. Some specific details below. Constitutional: No recent fevers or chills. No malaise. EYE: No visual complaints or pain. ENT: No difficulty swallowing. No swelling. Denies hitting her head. Denies headache. CV: No chest pain or palpitations. She states she had some pain about a week ago but was given a Lidoderm patch and that helped. It took some time to find out that the medicine she was given was this patch. Respiratory: No dyspnea. No hemoptysis. No difficulty taking breaths. GI: No nausea or vomiting. No abdominal pain. She states she is eating and drinking well. She does admit to frequent soft stools but this is not new or different. : No frequency dysuria or hematuria. Musculoskeletal: No recent trauma. Although she rolled off the couch she states she did not hurt herself. She has no pains. Skin: No rash. Nondiaphoretic. Neuro: No weakness or numbness. Endocrine: No polyuria or polydipsia. EXAM Physical Exam Narrative Exam Narrative: CONSTITUTIONAL: Patient is nontoxic in appearance. The patient looks comfortable. When I see her she did have some stool cleaned up off her lower extremities already. HEENT: No notable trauma. I see no contusions or abrasions. Mucous membranes moist. No sinus tenderness. No indication of pain with swallowing. EYES: No conjunctival injection. No proptosis. CARDIOVASCULAR: Regular rate. Regular rhythm. No notable murmur. No JVD. Pulses are normal. RESPIRATORY: No respiratory distress. Breathing is unlabored. No wheezes. No rhonchi. No rales. No pain with a deep breath. GASTROINTESTINAL: Not distended. Bowel sounds are normal. No tenderness. No guarding. No rebound. No palpable mass. No bruit. GENITOURINARY: No tenderness over the bladder. No CVA tenderness. MUSCULOSKELETAL: Atraumatic. No peripheral edema. No cord. No tenderness along the deep venous system. No asymmetry. She can move her arms without pain. I rotated did axial loading of her hips. Motion of her knees is normal. I see no sign of injury. NEUROLOGICAL: Patient is alert and appropriate. No focal deficit noted. Patient is a very bad informant for details of her medical history but I do not think this is based on confusion. I think this is just a poor understanding of chronic medical conditions and disease. SKIN: No noted rashes. No diaphoresis. No abrasions. No contusions. No sign of pressure damage. PSYCHIATRIC: Patient is calm. Mood is appropriate. Const Vital Signs: 06/16/23 15:41 06/16/23 15:46 06/16/23 15:51 Temperature 97.8 F Temperature Source Temporal Pulse Rate 68 Respiratory Rate 18 Respiratory Effort Normal Non-Labored Blood Pressure 81/41 L 104/87 H Blood Pressure Mean 54 92 Pulse Ox 94 Oxygen Delivery Method Room Air Room Air 06/16/23 18:17 Temperature Temperature Source Pulse Rate 72 Respiratory Rate 16 Respiratory Effort Blood Pressure 155/66 H Blood Pressure Mean 95 Pulse Ox 93 Oxygen Delivery Method Room Air MDM MDM MDM Narrative Medical decision making narrative: Patient CBC shows mild elevation of white count which is nonspecific and may be stress response after being on the ground. Patient's electrolytes show no marked abnormalities. Minimal dehydration. She was given a little bit of fluids here. Liver function test normal. Urine is clean. We walked the patient. She actually does very well. She would like to go home. I can force admission. There is no sign of acute illness. Lab Data Attestation: I reviewed the patient's lab results. Labs: Laboratory Results - last 24 hr 06/16/23 06/16/23 16:06 16:07 WBC 14.1 H RBC 4.62 Hgb 13.5 Hct 42.9 MCV 92.9 MCH 29.2 MCHC 31.5 L RDW Std Deviation 45.9 H RDW Coeff of Aubrie 13.5 Plt Count 236 MPV 11.2 Immature Gran % (Auto) 0.900 Neut % (Auto) 80.0 H Lymph % (Auto) 11.6 L [place] % (Auto) 5.8 Eos % (Auto) 1.2 Baso % (Auto) 0.5 Absolute Neuts (auto) 11.2 H Absolute Lymphs (auto) 1.63 Nucleated RBC % 0 Sodium 140 Potassium 3.6 Chloride 108 H Carbon Dioxide 25.0 Anion Gap 7 BUN 20 H Creatinine 0.70 Estim Creat Clear Calc 36.81 Est GFR (MDRD) Af Amer 103 Est GFR (MDRD) Non-Af 85 BUN/Creatinine Ratio 28.7 H Glucose 153 H Calcium 9.0 Total Bilirubin 0.70 AST 16 ALT 18 Alkaline Phosphatase 88 Total Creatine Kinase 152 Total Protein 6.9 Albumin 3.6 Globulin 3.3 Albumin/Globulin Ratio 1.1 Urine Color Yellow Urine Clarity Clear Urine pH 5.0 Ur Specific [place] 1.015 Urine Protein Negative Urine Glucose (UA) 100 H Urine Ketones Negative Urine Occult Blood Negative Urine Nitrite Negative Urine Bilirubin Negative Urine Urobilinogen Normal Ur Leukocyte Esterase Negative Urine RBC 0 SEEN Urine WBC 0 SEEN Ur Squamous Epith Cells 0 SEEN Amorphous Sediment R Urine Bacteria RARE Urine Mucus 0 SEEN EKG Initial EKG: Comments: My independent her potation the patient's EKG done for a fall at home shows paced and bundle branch block. Baseline variation. Diffuse ST changes but similar to 10 June of this year. Discharge Plan Triage Chief Complaint: Fall ED Provider: Edy Magallon Dx/Rx/DC Orders Clinical Impression: Fall at home, Chronic diarrhea Instructions: ED Fall Prevention Prescriptions: No Action sertraline 100 mg tablet 100 mg PO DAILY lisinopril 40 mg tablet 40 mg PO DAILY Prolia 60 mg/mL syringe 60 mg subcut [id number] Qty: 1 1RF Jardiance 10 mg tablet 10 mg PO DAILY Qty: 90 3RF (DME) blood sugar diagnostic Strip See Rx Instructions .ROUTE .MEDSUPPLY Rx Instructions: test three times a day (DME) blood-glucose meter Kit See Rx Instructions .ROUTE .MEDSUPPLY Rx Instructions: As directed Glucerna 1.2 [place] 0.06-1.2 gram-kcal/mL liquid 120 ml PO 4X/DAY atenolol 50 mg tablet 50 mg PO DAILY Rx Instructions: Take 1 tablet by mouth once daily for blood pressure lidocaine [Lidoderm] 5 % adhesive patch,medicated 2 patch topical DAILY Qty: 15 0RF Rx Instructions: leave on most painful area for up to 12 hrs metformin 500 mg tablet 500 mg PO DAILY acetaminophen 325 mg Tablet 650 mg PO Q6H PRN PRN (Reason: Pain 1-10 Or Fever >100.7) Qty: 0 0RF diltiazem HCl 180 mg Capsule,Extended Release 24hr 180 mg PO DAILY Qty: 30 0RF famotidine 20 mg Tablet 40 mg PO BID Qty: 60 0RF dicyclomine 20 mg tablet 20 mg PO BID Qty: 60 0RF potassium chloride 20 mEq tablet extended release 20 meq PO BIDCM Qty: 90 2RF Rx Instructions: Take 1 tablet by mouth once daily furosemide [Lasix] 40 mg tablet 40 mg PO BID Qty: 180 3RF isosorbide mononitrate 60 mg tablet extended release 24 hr 60 mg PO DAILY Qty: 90 3RF Rx Instructions: Take 1 tablet by mouth once daily methimazole 5 mg tablet 2.5 mg PO DAILY Qty: 15 6RF cholecalciferol (vitamin D3) 1,250 mcg (50,000 unit) capsule 1,250 mcg PO QWEEK Qty: 12 1RF ferrous sulfate 325 mg (65 mg iron) tablet 325 mg PO BID Qty: 60 1RF Primary Care Provider: Mary Azevedo Referrals: Mary Azevedo MD [Primary Care Provider] - 3-5 Days Disposition Disposition: Home, Self Care
[2023-06-16 16:26] LABS: Mucous, Urine 0 SEEN /hpf (<or=2+); Red Blood Cells-Urine 0 SEEN /hpf (0-5); Squamous Epithelial Cells - UA 0 SEEN /hpf (5-10); White Blood Cells 0 SEEN /hpf (0-5)
[2023-06-16 16:27] LABS: Absolute Lymphocyte Count 1.63 X10^3/uL (0.83-4.51); Absolute Neutrophil Count 11.2 X10^3/uL (2.0-7.7); Basophil# 0.07 X10^3/uL; Basophil% 0.5 % (0-1); Eosinophil# 0.17 X10^3/uL; Eosinophils% 1.2 % (0-5); Hematocrit 42.9 % (37-47); Hemoglobin 13.5 g/dL (12.0-15.0); Lymphocyte # 1.63 X10^3/ul (0.83-4.51); Lymphocyte % 11.6 % (19-41); Mean Corp Hgb Conc 31.5 g/dL (32-36); Mean Corpuscular Hgb 29.2 pg (27.0-32.0); Mean Corpuscular Volume 92.9 fL (81-99); Mean Platelet Vol. 11.2 fl (6.2-12.0); Monocyte# 0.82 X10^3/uL; Monocyte% 5.8 % (0-10); NRBC Flagged by Analyzer 0 % (0-5); Neutrophil # 11.24 X10^3/uL (2.7-7.7); Platelet Count 236 K/mm3 (150-450); RBC Distribution Width CV 13.5 % (11.6-14.6); RBC Distribution Width SD 45.9 fl (35.1-43.9); Red Blood Count 4.62 M/mm3 (4.2-5.4); White Blood Count 14.1 K/mm3 (4.4-11.0)
[2023-06-16 16:40] LABS: Color, Urine Yellow (Yellow); Glucose, Dipstick 100 mg/dl (Normal); Ketone-Dipstick Negative (Negative); Leukocyte Esterase-Dipstick Negative /ul (Negative); Nitrite-Dipstick Negative (Negative); Occult Blood-Urine Negative /ul (Negative); Protein-Dipstick Negative (Negative); Specific Gravity, Urine 1.015 (1.002-1.030); Urine Bilirubin Dipstick Negative (Negative); Urine Clarity Clear (Clear); Urine Urobilinogen Normal (Normal)
[2023-06-16 16:50] LABS: ALB/GLOB Ratio 1.1 RATIO (0.9-2.4); AST(SGOT) 16 U/L (15-37); Alanine Aminotransfer ALT/SGPT 18 U/L (13-56); Albumin, Serum 3.6 g/dL (3.2-5.0); Alkaline Phosphatase 88 U/L (45-117); Anion Gap 7 (5-15); BUN 20 mg/dL (7-18); BUN/Creat Ratio 28.7 RATIO (10-20); CPK Total, Creatine Kinase 152 U/L (26-192); Chloride 108 mmol/L (98-107); EST Glomerular Filtration Rate 85 mL/min (>60); Est Glom Filt Rate - Afr Amer 103 mL/min (>60); Estimated Creatinine Clearance 36.81 ml/min; Globulin 3.3 g/dL (2.2-4.2); Glucose 153 mg/dL (74-106); Potassium 3.6 mmol/L (3.5-5.1); Protein, Total 6.9 g/dL (6.4-8.2); Sodium Level 140 mmol/L (136-145)
[2023-06-16 16:54] LABS: Amorphous Sediment R; Bacteria RARE /hpf (None Seen)
[2023-06-16 18:17] VITALS: BP 155/66; PULSE 72; RESP 16; O2SAT 93
[2023-06-16 19:14] VITALS: PULSE 66; RESP 19; O2SAT 96
== END 2023-06-16 19:15 | disposition home or self-care (01) ==
PROVIDERS: Emergency Provider Emergency Medicine; PCP Internal Medicine; Visit Provider Emergency Medicine
DX: I11.0 Hypertensive heart disease with heart failure (principal); I50.9 Heart failure, unspecified; E11.9 Type 2 diabetes mellitus without complications; E86.0 Dehydration; I25.10 Atherosclerotic heart disease of native coronary artery without angina pectoris; E78.5 Hyperlipidemia, unspecified; K52.9 Noninfective gastroenteritis and colitis, unspecified; W08.XXXA Fall from other furniture, initial encounter
CPT/HCPCS: 80053; 81001; 82550; 85025; 93005; 99285; J7030; A4216

== ENCOUNTER 2023-06-26 17:24 | Inpatient (IN) | payer MEDICARE, SELFPAY ==
[2023-06-26 17:24] VITALS: BP 149/73; PULSE 61; RESP 18; TEMP 36.2; O2SAT 100
[2023-06-26 18:26] VITALS: PULSE 61; RESP 20; O2SAT 99; BMI 24.0
--- NOTE | 2023-06-26 19:06 | CT_ITS ---
EXAM: CT brain without IV contrast. HISTORY: ams TECHNIQUE: No intravenous contrast. A radiation dose optimization technique was used for this scan. COMPARISON: Head CT December 29, 2021. LIMITATIONS: None. BRAIN: Mild involutional change. Mild low attenuation bilaterally within the deep white matter, likely secondary to chronic microvascular ischemia. VENTRICLES: No hydrocephalus. EXTRA-AXIAL SPACES: No acute hemorrhage. CALVARIUM/SKULL BASE: No acute fracture. FACE/SINUSES: No significant abnormality. SOFT TISSUES: Normal. OTHER: None. CONCLUSION: No acute intracranial abnormality. Electronically Signed: Marck Umana MD at 21:37 EDT , CT/Brain/Head without Contrast IMPRESSION: undefined
--- NOTE | 2023-06-26 19:06 | EKG12_ITS ---
Test Reason : Blood Pressure : / mmHG Vent. Rate : 062 BPM Atrial Rate : 062 BPM P-R Int : 172 ms QRS Dur : 152 ms QT Int : 510 ms P-R-T Axes : 032 -36 130 degrees QTc Int : 517 ms Normal sinus rhythm Left axis deviation Left bundle branch block Abnormal ECG Confirmed by RANJEET ORONA ([id number]), news video editor PITA BLEDSOE ([id number]) on 07/02/2023 10:22:41 AM Referred By: GIA/AMANDA Confirmed By:RANJEET ORONA
[2023-06-26 19:35] LABS: Absolute Lymphocyte Count 2.13 X10^3/uL (0.83-4.51); Absolute Neutrophil Count 5.7 X10^3/uL (2.0-7.7); Basophil# 0.06 X10^3/uL; Basophil% 0.7 % (0-1); Eosinophil# 0.38 X10^3/uL; Eosinophils% 4.2 % (0-5); Hematocrit 39.7 % (37-47); Hemoglobin 12.2 g/dL (12.0-15.0); Lymphocyte # 2.13 X10^3/ul (0.83-4.51); Lymphocyte % 23.6 % (19-41); Mean Corp Hgb Conc 30.7 g/dL (32-36); Mean Corpuscular Volume 94.5 fL (81-99); Mean Platelet Vol. 10.9 fl (6.2-12.0); Monocyte# 0.75 X10^3/uL; Monocyte% 8.3 % (0-10); NRBC Flagged by Analyzer 0 % (0-5); Neutrophil # 5.67 X10^3/uL (2.7-7.7); Neutrophil % 62.6 % (47-70); Platelet Count 234 K/mm3 (150-450); RBC Distribution Width CV 13.8 % (11.6-14.6); RBC Distribution Width SD 47.7 fl (35.1-43.9)
[2023-06-26 19:53] LABS: ALB/GLOB Ratio 1.1 RATIO (0.9-2.4); AST(SGOT) 8 U/L (15-37); Alanine Aminotransfer ALT/SGPT 12 U/L (13-56); Albumin, Serum 3.4 g/dL (3.2-5.0); Alkaline Phosphatase 88 U/L (45-117); Anion Gap 7 (5-15); BUN 16 mg/dL (7-18); BUN/Creat Ratio 20.4 RATIO (10-20); Calcium,Total 8.8 mg/dL (8.5-10.1); Chloride 106 mmol/L (98-107); Creatinine, Serum 0.78 mg/dL (0.55-1.02); EST Glomerular Filtration Rate 74 mL/min (>60); Est Glom Filt Rate - Afr Amer 90 mL/min (>60); Estimated Creatinine Clearance 36.81 ml/min; Globulin 3.2 g/dL (2.2-4.2); Glucose 187 mg/dL (74-106); Potassium 3.8 mmol/L (3.5-5.1); Protein, Total 6.6 g/dL (6.4-8.2); Sodium Level 138 mmol/L (136-145); Troponin-I HS 29 pg/mL (3.0-54.0)
--- NOTE | 2023-06-26 20:14 | RAD_ITS ---
INDICATION: weakness EXAMINATION: Frontal view of the chest COMPARISON: Chest x-ray June 10, 2023. FINDINGS: Frontal view of the chest was obtained. A pacing device projects over the left mid hemithorax. The cardiac silhouette is mildly enlarged. No confluent airspace disease. No pneumothorax. Multilevel vertebroplasty. RAD/Chest 1 View (Portable) IMPRESSION: No acute pulmonary disease. Electronically Signed: Marck Umana MD at 20:33 EDT ,
--- NOTE | 2023-06-26 21:20 | EX.ED.DYSGE1 ---
HPI History of Present Illness Chief Complaint: General Illness Narrative Narrative: 83-year-old female with increasing weakness and confusion. Per family the patient was found a couple of days ago outside wandering. She actually went to the wrong house and urinated on the floor of her neighbors house and. She also took off all of her clothes. She was found by the neighbors and taken back to her place. Patient lives alone. Her family states she had a couple of falls recently but not in the last week. They do have concern that she is not able to take care of herself anymore and she appears to be confused. It is presumed that the patient has some dementia setting in. Her primary care provider has not done any testing for dementia. The patient's family states that they were referred to neurology due to the increasing confusion. Apparently this was never followed up with and now the patient is worse. [facility] Medical History Abdominal pain Abnormal results of thyroid function studies Anemia Anxiety and depression Atherosclerosis of coronary artery of [place] heart without angina pectoris Back pain Back pain due to injury Bladder disease Boil of lower extremity Cardiology follow-up encounter CHF (congestive heart failure) Chronic back pain Chronic diarrhea Closed left hip fracture Compression fracture Dark stools Depression Diabetes Diarrhea Dietary restriction Elevated troponin I level Essential hypertension [place] Fracture of left distal radius Frequent falls Gastroesophageal reflux disease History of CHF (congestive heart failure) History of echocardiogram History of hemorrhoids History of pulmonary embolus (PE) History of stress test Hyperlipidemia Hypertension Iron deficiency anemia Irritable bowel Ischemic cardiomyopathy Low back pain Lumbar compression fracture Lumbar spinal stenosis Memory deficit Myocardial infarct Non-smoker Nursing assistance required Oropharyngeal dysphagia Orthopedic aftercare Osteoporosis Post-menopausal Pulmonary embolism Shortness of breath on exertion 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) Type II diabetes mellitus Ulcer of right lower extremity Vitamin D deficiency Wears dentures Wears glasses Wears hearing aid Home Medications blood sugar diagnostic 12/30/21 [History Last Taken Unknown] blood-glucose meter 12/30/21 [History Last Taken Unknown] nutrition tx glu intol,lac-free,soy-fiber 0.06 gram-1.2 kcal/mL liquid (Glucerna 1.2 [place]) 120 ml PO 4X/DAY Supplement 05/12/22 [History Last Taken Unknown] lisinopril 40 mg tablet 40 mg PO DAILY blood pressure 06/11/22 [History Last Taken Unknown] sertraline 100 mg tablet 100 mg PO DAILY mental health 08/06/22 [History Last Taken Unknown] Prolia 60 mg/mL subcutaneous syringe (denosumab) 60 mg subcut [id number] #1 mL 11/06/22 [Rx Last Taken 2 Months Ago ~11/02/22] furosemide 40 mg tablet (Lasix) 40 mg PO BID Fluid retention- take 4 to 6 hours apart #180 tabs 11/18/22 [Rx Last Taken Unknown] atenolol 50 mg tablet 50 mg PO DAILY heart health 11/20/22 [History Last Taken Unknown] empagliflozin 10 mg tablet (Jardiance) 10 mg PO DAILY heart health #90 tabs 01/20/23 [Rx Last Taken Unknown] isosorbide mononitrate 60 mg tablet,extended release 24 hr 60 mg PO DAILY heart #90 tabs 03/03/23 [Rx Last Taken Unknown] cholecalciferol (vitamin D3) 1,250 mcg (50,000 unit) capsule 1,250 mcg PO QWEEK vitamin #12 caps 05/19/23 [Rx Last Taken 06/01/23] methimazole 5 mg tablet 2.5 mg (1/2 x 5 mg) PO DAILY #15 tabs 05/19/23 [Rx Last Taken Unknown] ferrous sulfate 325 mg (65 mg iron) tablet 325 mg PO BID supplement #60 tabs 05/25/23 [Rx Last Taken Unknown] metformin 500 mg tablet 500 mg PO DAILY diabetes 06/02/23 [History Last Taken 06/01/23] acetaminophen 325 mg tablet 650 mg (2 x 325 mg) PO Q6H PRN PRN Pain 1-10 Or Fever >100.7 #0 tabs 06/03/23 [Rx Last Taken Unknown] dicyclomine 20 mg tablet 20 mg PO BID #60 tabs 06/03/23 [Rx Last Taken Unknown] diltiazem HCl 180 mg capsule,extended release 24 hr 180 mg PO DAILY #30 caps 06/03/23 [Rx Last Taken Unknown] famotidine 20 mg tablet 40 mg (2 x 20 mg) PO BID #60 tabs 06/03/23 [Rx Last Taken Unknown] potassium chloride 20 mEq tablet,extended release 20 meq PO BIDCM supplement #90 tabs 06/03/23 [Rx Last Taken Unknown] lidocaine 5 % topical patch (Lidoderm) 2 patch topical DAILY #15 ea 06/10/23 [Rx Last Taken Unknown] Allergy/AdvReac Type Severity Reaction Status Date / Time latex Allergy Other Verified 06/10/23 15:49 Family History Father CVA (cerebral vascular accident) Mother Heart disease CAD (coronary artery disease) Sister CAD (coronary artery disease) Daughter CAD (coronary artery disease) Myocardial infarction Daughter Diabetes Surgical History H/O: hysterectomy History of back surgery History of cardiac catheterization History of carpal tunnel release History of coronary artery stent placement History of kyphoplasty History of permanent cardiac pacemaker placement (12/30/21) Hx of cholecystectomy Hx of knee surgery S/P hysterectomy Social History household members: none housing: house Smoking Status: Unknown if ever smoked alcohol intake: never substance use type: does not use caffeine: No what type of physical activity do you participate in: none do you feel safe at home: Yes ROS ROS ED Review of Systems ROS Unobtainable: due to mental status EXAM Physical Exam Const Vital Signs: 06/26/23 17:24 06/26/23 18:26 06/26/23 18:26 Temperature 97.2 F L Temperature Source Temporal Pulse Rate 61 61 Respiratory Rate 18 20 H Respiratory Pattern Normal Blood Pressure 149/73 H Blood Pressure Mean 98 Pulse Ox 100 99 Oxygen Delivery Method Room Air Room Air General Appearance ED: NAD; Negative for pallor Eyes PERRL and EOMs intact bilaterally Chest Wall inspection of chest normal Resp normal respiratory effort and clear to auscultation bilaterally Auscultation: Negative for rales, rhonchi or wheezes Cardio regular rate and regular rhythm GI normal to inspection, nondistended, normoactive bowel sounds Neuro CN's II-XII intact bilaterally Sensorium / Orientation: alert Motor Exam: general weakness Skin no rashes or lesions noted and no wounds General Skin Exam: Negative for jaundice or pallor MDM MDM MDM Narrative Medical decision making narrative: Patient with increasing weakness and confusion. Differential includes dementia, electrolyte abnormalities, dehydration, UTI, pneumonia, intracranial injury. CBC will be obtained to assess white blood cell count, hemoglobin, platelets. CMP to assess liver function, renal function, electrolytes. High-sensitivity troponin to assess for ischemia. EKG to assess for dysrhythmia. CBC and CMP unremarkable. High-sensitivity troponin is 29. Chest x-ray on my interpretation shows no acute process. EKG paced rhythm at 60 bpm on my interpretation. Chest x-ray on my interpretation shows no acute process. CT brain: Chronic changes. Spoke to the hospitalist for admission. Urinalysis pending. Impression: 1. Debility 2. History of falls 3. Confusion 4. Failure to thrive Lab Data Attestation: I reviewed the patient's lab results. Labs: Laboratory Results - last 24 hr 06/26/23 19:25 WBC 9.0 RBC 4.20 Hgb 12.2 Hct 39.7 MCV 94.5 MCH 29.0 MCHC 30.7 L RDW Std Deviation 47.7 H RDW Coeff of Aubrie 13.8 Plt Count 234 MPV 10.9 Immature Gran % (Auto) 0.600 Neut % (Auto) 62.6 Lymph % (Auto) 23.6 [place] % (Auto) 8.3 Eos % (Auto) 4.2 Baso % (Auto) 0.7 Absolute Neuts (auto) 5.7 Absolute Lymphs (auto) 2.13 Nucleated RBC % 0 Sodium 138 Potassium 3.8 Chloride 106 Carbon Dioxide 25.0 Anion Gap 7 BUN 16 Creatinine 0.78 Estim Creat Clear Calc 36.81 Est GFR (MDRD) Af Amer 90 Est GFR (MDRD) Non-Af 74 BUN/Creatinine Ratio 20.4 H Glucose 187 H Calcium 8.8 Total Bilirubin 0.40 AST 8 L ALT 12 L Alkaline Phosphatase 88 Troponin I High Sens 29 Total Protein 6.6 Albumin 3.4 Globulin 3.2 Albumin/Globulin Ratio 1.1 Radiography Diagnostic Testing: Clinical Impression(s) from Imaging Studies Brain CT 06/26/23 19:06 IMPRESSION: undefined Chest X-Ray 06/26/23 20:14 IMPRESSION: No acute pulmonary disease. Electronically Signed: Marck Umana MD at 20:33 EDT , Discharge Plan Triage Chief Complaint: General Illness ED Provider: Hiren Pickett Dx/Rx/DC Orders Prescriptions: No Action sertraline 100 mg tablet 100 mg PO DAILY lisinopril 40 mg tablet 40 mg PO DAILY Prolia 60 mg/mL syringe 60 mg subcut [id number] Qty: 1 1RF Jardiance 10 mg tablet 10 mg PO DAILY Qty: 90 3RF (DME) blood sugar diagnostic Strip See Rx Instructions .ROUTE .MEDSUPPLY Rx Instructions: test three times a day (DME) blood-glucose meter Kit See Rx Instructions .ROUTE .MEDSUPPLY Rx Instructions: As directed Glucerna 1.2 [place] 0.06-1.2 gram-kcal/mL liquid 120 ml PO 4X/DAY atenolol 50 mg tablet 50 mg PO DAILY Rx Instructions: Take 1 tablet by mouth once daily for blood pressure lidocaine [Lidoderm] 5 % adhesive patch,medicated 2 patch topical DAILY Qty: 15 0RF Rx Instructions: leave on most painful area for up to 12 hrs metformin 500 mg tablet 500 mg PO DAILY acetaminophen 325 mg Tablet 650 mg PO Q6H PRN PRN (Reason: Pain 1-10 Or Fever >100.7) Qty: 0 0RF diltiazem HCl 180 mg Capsule,Extended Release 24hr 180 mg PO DAILY Qty: 30 0RF famotidine 20 mg Tablet 40 mg PO BID Qty: 60 0RF dicyclomine 20 mg tablet 20 mg PO BID Qty: 60 0RF potassium chloride 20 mEq tablet extended release 20 meq PO BIDCM Qty: 90 2RF Rx Instructions: Take 1 tablet by mouth once daily furosemide [Lasix] 40 mg tablet 40 mg PO BID Qty: 180 3RF isosorbide mononitrate 60 mg tablet extended release 24 hr 60 mg PO DAILY Qty: 90 3RF Rx Instructions: Take 1 tablet by mouth once daily methimazole 5 mg tablet 2.5 mg PO DAILY Qty: 15 6RF cholecalciferol (vitamin D3) 1,250 mcg (50,000 unit) capsule 1,250 mcg PO QWEEK Qty: 12 1RF ferrous sulfate 325 mg (65 mg iron) tablet 325 mg PO BID Qty: 60 1RF Primary Care Provider: Mary Azevedo Referrals: Mary Azevedo MD [Primary Care Provider] -
--- NOTE | 2023-06-26 22:36 | HP.PCM.HOS_ITS ---
HPI - General General Date of Admission: 06/26/23 Date of Service: 06/26/23 Chief Complaint: ? Worsening dementia. HPI Narrative The patient is an 83 y/o F w/ PMHx: Anxiety and Depression, Chronic anemia/Fe deficiency anemia, CAD s/p PCI, HFrEF/Ischemic cardiomyopathy, Hx C-difficile colitis, GERD, Hx VTE (DVT, PE), Frequent fall history, Hx Tachy-Elijah syndrome, Diabetes mellitus type II, PAF, Hyperthyroidism, Anxiety and Depression who presents to the [facility] ED on 06/26/23 with already chart reported history of underlying memory impairment however she has reportedly had increased weakness and confusion found by the family couple days prior outside wandering around and reportedly actually also went to the wrong house urinated on the floor and took off all her close currently living alone with several falls noted in her history with recent upcoming referral to neurology for worsening dementia but from family they are not sure when this is set up for and potentially may have been missed prompting family to bring patient to the ED for skilled placement. From the scaption with pace and then family she has been having chronic expressive aphasia as well as dysarthria in addition to delusions with hallucinations for quite a long time and family does report that she has had a significant fall history and they are unsure if she had imaging following these falls but current CT upon presentation with notable acute or old findings, no evidence of prior strokes. Work-up in the ED included T97.2, heart rate 61, BP 149/73, respirato ry rate 18, 100% on room air, CBC with WC 9.0, Hgb 12.2, platelet 234 without marked shift, CMP with glucose 187 otherwise unremarkable, troponin 29, chest x- ray with no acute cardiopulmonary findings with pacer device present, CT of the brain with no acute intracranial findings. [facility] Medical History (Updated 06/26/23 @ 23:[address] Ysabel Ruiz MD) Anemia Anxiety and depression Atherosclerosis of coronary artery of [place] heart without angina pectoris Back pain due to injury CHF (congestive heart failure) Chronic diarrhea Compression fracture Diabetes Essential hypertension Falls Fracture of left distal radius Frequent falls Gastroesophageal reflux disease History of CHF (congestive heart failure) History of hemorrhoids History of pulmonary embolus (PE) Hyperlipidemia Hypertension Iron deficiency anemia Irritable bowel Ischemic cardiomyopathy Lumbar compression fracture Lumbar spinal stenosis Memory deficit Myocardial infarct Non-smoker Oropharyngeal dysphagia Orthopedic aftercare Osteoporosis Post-menopausal Pulmonary embolism Shortness of breath on exertion Tachy-elijah 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) Type II diabetes mellitus Vitamin D deficiency Wears dentures Wears glasses Wears hearing aid Home Medications blood sugar diagnostic 12/30/21 [History Last Taken Unknown] blood-glucose meter 12/30/21 [History Last Taken Unknown] nutrition tx glu intol,lac-free,soy-fiber 0.06 gram-1.2 kcal/mL liquid (Glucerna 1.2 [place]) 120 ml PO 4X/DAY Supplement 05/12/22 [History Last Taken Unknown] lisinopril 40 mg tablet 40 mg PO DAILY blood pressure 06/11/22 [History Last Taken Unknown] sertraline 100 mg tablet 100 mg PO DAILY mental health 08/06/22 [History Last Taken Unknown] Prolia 60 mg/mL subcutaneous syringe (denosumab) 60 mg subcut [id number] #1 mL 11/06/22 [Rx Last Taken 2 Months Ago ~11/02/22] furosemide 40 mg tablet (Lasix) 40 mg PO BID Fluid retention- take 4 to 6 hours apart #180 tabs 11/18/22 [Rx Last Taken Unknown] atenolol 50 mg tablet 50 mg PO DAILY heart health 11/20/22 [History Last Taken Unknown] empagliflozin 10 mg tablet (Jardiance) 10 mg PO DAILY heart health #90 tabs 01/20/23 [Rx Last Taken Unknown] isosorbide mononitrate 60 mg tablet,extended release 24 hr 60 mg PO DAILY heart #90 tabs 03/03/23 [Rx Last Taken Unknown] cholecalciferol (vitamin D3) 1,250 mcg (50,000 unit) capsule 1,250 mcg PO QWEEK vitamin #12 caps 05/19/23 [Rx Last Taken 06/01/23] methimazole 5 mg tablet 2.5 mg (1/2 x 5 mg) PO DAILY #15 tabs 05/19/23 [Rx Last Taken Unknown] ferrous sulfate 325 mg (65 mg iron) tablet 325 mg PO BID supplement #60 tabs 05/25/23 [Rx Last Taken Unknown] metformin 500 mg tablet 500 mg PO DAILY diabetes 06/02/23 [History Last Taken 06/01/23] acetaminophen 325 mg tablet 650 mg (2 x 325 mg) PO Q6H PRN PRN Pain 1-10 Or Fever >100.7 #0 tabs 06/03/23 [Rx Last Taken Unknown] dicyclomine 20 mg tablet 20 mg PO BID #60 tabs 06/03/23 [Rx Last Taken Unknown] diltiazem HCl 180 mg capsule,extended release 24 hr 180 mg PO DAILY #30 caps 06/03/23 [Rx Last Taken Unknown] famotidine 20 mg tablet 40 mg (2 x 20 mg) PO BID #60 tabs 06/03/23 [Rx Last Taken Unknown] potassium chloride 20 mEq tablet,extended release 20 meq PO BIDCM supplement #90 tabs 06/03/23 [Rx Last Taken Unknown] lidocaine 5 % topical patch (Lidoderm) 2 patch topical DAILY #15 ea 06/10/23 [Rx Last Taken Unknown] Allergy/AdvReac Type Severity Reaction Status Date / Time latex Allergy Other Verified 06/10/23 15:49 Family History Father CVA (cerebral vascular accident) Mother Heart disease CAD (coronary artery disease) Sister CAD (coronary artery disease) Daughter CAD (coronary artery disease) Myocardial infarction Daughter Diabetes Surgical History H/O: hysterectomy History of back surgery History of cardiac catheterization History of carpal tunnel release History of coronary artery stent placement History of kyphoplasty History of permanent cardiac pacemaker placement (12/30/21) Hx of cholecystectomy Hx of knee surgery S/P hysterectomy Social History (Updated 06/26/23 @ 23:[address] Ysabel Ruiz MD) household members: none housing: house Smoking Status: Never smoker alcohol intake: never substance use type: does not use caffeine: No what type of physical activity do you participate in: none do you feel safe at home: Yes ROS ROS Narrative Admission Review of Systems: CONSTITUTIONAL: No weight loss, fever, chills, + weakness or fatigue. HEENT: Eyes: No visual loss, blurred vision, double vision or yellow sclerae. Ears, Nose, Throat: No hearing loss, sneezing, congestion, runny nose or sore throat. SKIN: + Occasional abrasion, staged ecchymoses, notable fold groin intertrigo. CARDIOVASCULAR: No chest pain, chest pressure or chest discomfort, palpitations, edema, orthopnea, syncopal events. RESPIRATORY: No shortness of breath, cough or sputum, wheezing, hemoptysis. GASTROINTESTINAL: + anorexia, chronic diarrhea and abdominal discomfort with IBS/bloating. No nausea, vomiting, melena, BRBPR. GENITOURINARY: + Mild suprapubic discomfort with urinary frequency. No dysuria, furgency or retention. NEUROLOGICAL: + Chronic memory impairment, frequent falls, chronic dysphagia and from discussion and examination appearance of expressive aphasia. No headache, dizziness, syncope, paralysis, ataxia, numbness or tingling in the extremities, focal weakness, change in bowel or bladder control, seizure. MUSCULOSKELETAL: + muscle, back pain, joint pain or stiffness. HEMATOLOGIC: + Easy bleeding or bruising. LYMPHATICS: No enlarged nodes. No history of splenectomy. PSYCHIATRIC: + history of depression or anxiety. ENDOCRINOLOGIC: No reports of sweating, cold or heat intolerance. No polyuria or polydipsia. ALLERGIES: No history of asthma, hives, eczema or rhinitis. Vital Signs Vital Signs Vital Signs: 06/26/23 17:24 06/26/23 18:26 06/26/23 18:26 Temperature 97.2 F L Temperature Source Temporal Pulse Rate 61 61 Respiratory Rate 18 20 H Respiratory Pattern Normal Blood Pressure 149/73 H Blood Pressure Mean 98 Pulse Ox 100 99 Oxygen Delivery Method Room Air Room Air Weight Weight: 140 lb 3.424 oz Body Mass Index (BMI) 24.0 Physical Exam Narrative Physical Examination: General: Awake, alert, oriented to self, place and some recent events but has significant underlying appearance of dementia which has been worsening, labile mood during evaluation which she says has been chronic Skin: Normal color, normal turgor, no icterus, no cyanosis except for very staged occasional ecchymoses likely with recent falls and notable groin fold intertrigo. HEENT: AT/NC, EOMI, PERRLA, mildly dry MM, no carotid bruits or JVD noted. Lungs: Diminished, greater bases, appropriate effort, no rales, ronchi or wheezing. Heart: Regular rate and rhythm; no gallop, rub audible. Abdomen: Soft, NTTP, ND, hyperactive BS, no HSM. Extremities: No cyanosis, clubbing, or edema. Neurological: Patient awake, alert, oriented as noted, cognitive function decreased baseline with underlying dementia which has been progressing, currently appears intact; pupils equally reactive to light and accommodation, cranial nerves grossly normal although patient does have of note chronic appearance of expressive aphasia despite CT with no prior evidence of stroke but this is ongoing and unchanged as well as chronic dysphagia per report, moving all 4 extremities, no obvious focal deficit, strength moderately to severely global decreased Psychiatric: Affect appears anxious, intermittently tearful, underlying depressi on and anxiety evident with history on medications. Results Lab / Micro Data 06/26/23 19:25 06/26/23 19:25 Labs: Laboratory Results - last 24 hr 06/26/23 19:25: WBC 9.0, RBC 4.20, Hgb 12.2, Hct 39.7, MCV 94.5, MCH 29.0, MCHC 30.7 L, RDW Std Deviation 47.7 H, RDW Coeff of Aubrie 13.8, Plt Count 234, MPV 10.9, Immature Gran % (Auto) 0.600, Neut % (Auto) 62.6, Lymph % (Auto) 23.6, Mon o % (Auto) 8.3, Eos % (Auto) 4.2, Baso % (Auto) 0.7, Absolute Neuts (auto) 5.7, Absolute Lymphs (auto) 2.13, Nucleated RBC % 0, Sodium 138, Potassium 3.8, Chloride 106, Carbon Dioxide 25.0, Anion Gap 7, BUN 16, Creatinine 0.78, Estim Creat Clear Calc 36.81, Est GFR (MDRD) Af Amer 90, Est GFR (MDRD) Non-Af 74, BUN/Creatinine Ratio 20.4 H, Glucose 187 H, Calcium 8.8, Total Bilirubin 0.40, AST 8 L, ALT 12 L, Alkaline Phosphatase 88, Troponin I High Sens 29, Total Protein 6.6, Albumin 3.4, Globulin 3.2, Albumin/Globulin Ratio 1.[address] 06/26/23 19:06 IMPRESSION: undefined Chest X-Ray 06/26/23 20:14 IMPRESSION: No acute pulmonary disease. Electronically Signed: Marck Umana MD at 20:33 EDT , Assessment & Plan Assessment/Plan (1) Adult failure to thrive: PLAN: Plan The patient is an 83 y/o F w/ PMHx: Anxiety and Depression, Chronic anemia/Fe deficiency anemia, CAD s/p PCI, HFrEF/Ischemic cardiomyopathy, Hx C-difficile colitis, GERD, Hx VTE (DVT, PE), Frequent fall history, Hx Tachy-Elijah syndrome, Diabetes mellitus type II, PAF, Hyperthyroidism, Anxiety and Depression who presents to the [facility] ED on 06/26/23 with already chart reported history of underly ing memory impairment however she has reportedly had increased weakness and confusion found by the family couple days prior outside wandering around and reportedly actually also went to the wrong house urinated on the floor and took off all her close currently living alone with several falls noted in her history. #1. Adult FTT, Worsening Memory impairment, dementia with unclear behavioral disturbance history unsafe to be living alone at home: We will admit to medical surgical floor given patient is significantly unsafe to be in home environment by herself, maintain on fall and aspiration precautions, given significant cardiac history with reduced EF we will very judiciously hydrate only if necessary, no concerning lab findings but will obtain UA to be cautious w/ procalcitonin also requested, PT/OT/CM consulted for discharge planning as needs SNF placement, possibly in dementia unit. #2. Acute Intertrigo: Will initiate and maintain on nystatin topical regimen, encourage groin fold care and cleaning. #3. Chronic anemia/iron deficiency anemia: Admission hemoglobin 12.2, prior bas liseth more recently since January 28 to , stable, continue to trend, continue iron supplementation. #4. HFrEF/Ischemic cardiomyopathy: 06/02/2023 echocardiogram with EF 25%, severe global LV systolic dysfunction, moderate MVI, mild TVI, RVSP 45 mmHg. We will continue aspirin, not on statin therapy, continue atenolol as well as lisinopril and Lasix regimen with very judicious hydration and only if necessary given significantly reduced EF. #5. Hyperthyroidism: We will continue patient home methimazole regimen, will obtain TSH and free T4 given presentation history. #6. Hypertension: Continue home regimen including lisinopril, isosorbide, Lasix, diltiazem, atenolol with hold parameters as needed, PRN hydralazine. #7. CAD: Status post PCI, will continue aspirin, metoprolol, lisinopril, not on statin therapy, defer to outpatient. #8. Diabetes mellitus type II: Hold oral home regimen, ADA diet, accu checks w/ ISS. #9. Hyperlipidemia: Not on statin therapy, defer to outpatient. #10. Anxiety and depression: We will continue patient home sertraline regimen but from discussion with patient and very labile mood do think patient can strongly benefit from ongoing evaluation and counseling and potential medication addition/alteration. 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 #12. Hx VTE: s/p DVT, PE prior, not chronically anticoagulated, high fall risk noted in chart. #13. GERD: We will continue patient on famotidine regimen. #14. DVT Prophylaxis: Lovenox. #15. CODE status: Patient's daughter present, discussed CODE status at length with both daughter and patient including difference between FULL code, DNR-CCA and DNR-CC status. Following discussions about the differences in these status, requested DNR-CCA, no intubation status. Advanced Care Planning Face to Face Time: 16 minutes. Charges/Coding Visit Charges Inpatient E&M: 18807 Init Hosp L2 Procedures Hospitalists Procedures: 14837 Advncd Care Plan 30 Min
[2023-06-26 23:43] LABS: Magnesium 2.1 mg/dL (1.6-2.6); Phosphorus 2.8 mg/dL (2.5-4.9)
[2023-06-26 23:56] VITALS: BMI 27.2
[2023-06-27 00:26] VITALS: BP 135/61; PULSE 62; RESP 16; TEMP 36.6; O2SAT 100
[2023-06-27 00:53] VITALS: BP 149/73; PULSE 61; RESP 18; TEMP 36.2; O2SAT 100
[2023-06-27 04:55] VITALS: BP 136/60; PULSE 60; RESP 16; TEMP 36.4; O2SAT 99
[2023-06-27 06:14] LABS: Mucous, Urine 0 SEEN /hpf (<or=2+)
[2023-06-27] MEDS: Miconazole Nitrate 43 GM Bottle 1 APPLIC TOPICAL ×3 (06:23→22:23)
[2023-06-27 06:28] LABS: Color, Urine Yellow (Yellow); Glucose, Dipstick 1000 mg/dl (Normal); Ketone-Dipstick Negative (Negative); Leukocyte Esterase-Dipstick 500 /ul (Negative); Nitrite-Dipstick Negative (Negative); Occult Blood-Urine 10 /ul (Negative); Protein-Dipstick 15 mg/dl (Negative); Specific Gravity, Urine 1.015 (1.002-1.030); Urine Bilirubin Dipstick Negative (Negative); Urine Clarity Clear (Clear); Urine Urobilinogen Normal (Normal)
[2023-06-27 06:39] LABS: Bacteria 2+ /hpf (None Seen); Red Blood Cells-Urine 0-5 SEEN /hpf (0-5); Squamous Epithelial Cells - UA 0-5 SEEN /hpf (5-10); White Blood Cells 50-100 SEEN /hpf (0-5)
[2023-06-27 06:46] LABS: Bedside Glucose 136 mg/dL (74-106)
--- NOTE | 2023-06-27 07:38 | PN.HOSP_ITS ---
Reason for Visit Reason for Visit: Diagnoses Adult failure to thrive (06/26/23) Subjective Subjective Follow-up for failure to thrive, chronic diarrhea Objective Data Objective Data Vital Signs: Vital Signs Temp Pulse Resp BP Pulse Ox O2 Del Method 97.6 F L 60 16 136/60 H 99 Room Air 06/27/23 04:55 06/27/23 04:55 06/27/23 04:55 06/27/23 04:55 06/27/23 04:55 06/27/23 04:55 Oxygen Delivery Method Room Air Weight: 134 lb 14.766 oz Body Mass Index (BMI) 27.2 Intake & Output: Intake and Output for Last 24 Hours 06/25/23 06/26/23 06/27/23 23:59 23:59 23:59 Intake Total 150 / 150 Output Total 350 / 350 Balance -200 / -200 Lab / Micro Data 06/27/23 06:45 06/27/23 06:45 Labs: Laboratory Results - last 24 hr 06/26/23 19:25: WBC 9.0, RBC 4.20, Hgb 12.2, Hct 39.7, MCV 94.5, MCH 29.0, MCHC 30.7 L, RDW Std Deviation 47.7 H, RDW Coeff of Aubrie 13.8, Plt Count 234, MPV 10.9, Immature Gran % (Auto) 0.600, Neut % (Auto) 62.6, Lymph % (Auto) 23.6, [place] % (Auto) 8.3, Eos % (Auto) 4.2, Baso % (Auto) 0.7, Absolute Neuts (auto) 5.7, Absolute Lymphs (auto) 2.13, Nucleated RBC % 0, Sodium 138, Potassium 3.8, Chloride 106, Carbon Dioxide 25.0, Anion Gap 7, BUN 16, Creatinine 0.78, Estim Creat Clear Calc 36.81, Est GFR (MDRD) Af Amer 90, Est GFR (MDRD) Non-Af 74, BUN/Creatinine Ratio 20.4 H, Glucose 187 H, Calcium 8.8, Phosphorus 2.8, Magnesium 2.1, Total Bilirubin 0.40, AST 8 L, ALT 12 L, Alkaline Phosphatase 88, Troponin I High Sens 29, Total Protein 6.6, Albumin 3.4, Globulin 3.2, Albumin/Globulin Ratio 1.1 06/27/23 04:55: Urine Color Yellow, Urine Clarity Clear, Urine pH 6.0, Ur Specific [place] 1.015, Urine Protein 15 H, Urine Glucose (UA) 1000 H, Urine Ketones Negative, Urine Occult Blood 10 H, Urine Nitrite Negative, Urine Bilirubin Negative, Urine Urobilinogen Normal, Ur Leukocyte Esterase 500 H, Urine RBC 0-5 SEEN, Urine WBC 50-100 SEEN, Ur Squamous Epith Cells 0-5 SEEN, Urine Bacteria 2+, Urine Mucus 0 SEEN 06/27/23 06:22: POC Glucose 136 H Radiography Diagnostic Testing: Radiology Impression Brain CT 06/26/23 19:06 IMPRESSION: undefined Chest X-Ray 06/26/23 20:14 IMPRESSION: No acute pulmonary disease. Electronically Signed: Marck Umana MD at 20:33 EDT , Physical Exam Narrative Seen and examined. Patient states she has chronic diarrhea and whenever she eats, liquid stool comes out. This is for years. No abdominal pain nausea or vomiting. Family stated that for last couple days, the patient was wandering around and went to the wrong house, urinated on the floor and took off all her clothes. Physical exam General: Alert, Oriented x3, Cooperative HEENT: Atraumatic, PERRLA, EOMI, Normocephalic Oral: Oral mucosa moist. No Gingival or Mucosal Lesions/ Ulcerations Neck: Supple, No JVD, Negative Carotid Bruits Lungs: Air entry diminished in bilateral lung bases. No crepitation/rhonchi Cardiovascular: Regular rate, Regular Rhythm, Normal S1, Normal S2, No murmurs Abdomen: Bowel Sounds Present, Soft, Non Tender, Non-Distended. Liquid stool in diaper : No renal angle tenderness. No suprapubic tenderness. Extremities: No edema, Capillary Refill Less than 3 Seconds Skin: No rashes, No breakdown Musculoskeletal: No Tenderness to Palpation of Joints or Extremities. Muscle strength 5/5 at hip and knee joints. Neurological: Cranial nerves II-XII grossly intact, DTR 2+/4. No acute focal neurological deficit. Psych/Mental Status: Sometimes hallucination and delusion. Dementia. Assessment & Plan Assessment/Plan (1) Adult failure to thrive: PLAN: Plan The patient is an 83 y/o F WHO IS ADMITTED TO on 06/26/23 for advanced dementia complicated with delusion and hallucination and behavioral abnormality, chronic expressive aphasia and dysarthria and recurrent fall. She herself denies fall unsteady gait or loss of equilibrium. #1. Debility due to advanced dementia with behavioral abnormality, hallucination and delusion, failure to thrive and recurrent fall: Patient is being admitted to [facility] floor. Fall prevention. She herself denies burning micturition or neuro intact symptoms. LE 500. WBC 5200 cells, 2+ bacteria. Nitrite negative. Last urine culture 06/02/2023 shows Citrobacter and Proteus mirabilis 80,000-100,000 suggestive of either contamination or colonization. 2. Chronic diarrhea: C. difficile was negative on 06/03/2023. Giardia stool antigen ordered. #3. Chronic anemia/iron deficiency anemia: Admission hemoglobin 12.2, prior baseline more recently since January 28 to , stable, continue to trend, continue iron supplementation. #4. HFrEF/Ischemic cardiomyopathy: 06/02/2023 echocardiogram with EF 25%, severe global LV systolic dysfunction, moderate MVI, mild TVI, RVSP 45 mmHg. We will continue aspirin, not on statin therapy, continue atenolol as well as lisinopril and Lasix regimen with very judicious hydration and only if necessary given significantly reduced EF. #5. Hyperthyroidism: We will continue patient home methimazole regimen, will obtain TSH and free T4 given presentation history. #6. Hypertension: Continue home regimen including lisinopril, isosorbide, Lasix, diltiazem, atenolol with hold parameters as needed, PRN hydralazine. #7. CAD: Status post PCI,continue aspirin, metoprolol, lisinopril, not on statin therapy, defer to outpatient. #8. Diabetes mellitus type II: Hold oral home regimen, ADA diet, accu checks w/ ISS. #9. Hyperlipidemia: Not on statin therapy, defer to outpatient. #10. Anxiety and depression and acute Intertrigo:on nystatin topical regimen and nursing care.continue patient home sertraline. 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 #12. Hx VTE: s/p DVT, PE prior, not chronically anticoagulated, high fall risk noted in chart. #13. GERD: We will continue patient on famotidine regimen. #14. DVT Prophylaxis: Lovenox. #15. CODE status: Patient's daughter present, discussed CODE status at length with both daughter and patient including difference between FULL code, DNR-CCA and DNR-CC status. Following discussions about the differences in these status, requested DNR-CCA, no intubation status. Charges/Coding Visit Charges Inpatient E&M: 11824 Subs Hosp L2
[2023-06-27 07:56] LABS: Absolute Lymphocyte Count 1.89 X10^3/uL (0.83-4.51); Absolute Neutrophil Count 4.6 X10^3/uL (2.0-7.7); Basophil# 0.06 X10^3/uL; Basophil% 0.8 % (0-1); Eosinophil# 0.44 X10^3/uL; Eosinophils% 5.7 % (0-5); Hematocrit 36.7 % (37-47); Hemoglobin 11.5 g/dL (12.0-15.0); Lymphocyte # 1.89 X10^3/ul (0.83-4.51); Lymphocyte % 24.7 % (19-41); Mean Corp Hgb Conc 31.3 g/dL (32-36); Mean Corpuscular Hgb 29.4 pg (27.0-32.0); Mean Corpuscular Volume 93.9 fL (81-99); Monocyte# 0.62 X10^3/uL; Monocyte% 8.1 % (0-10); NRBC Flagged by Analyzer 0 % (0-5); Neutrophil # 4.61 X10^3/uL (2.7-7.7); Neutrophil % 60.2 % (47-70); Platelet Count 222 K/mm3 (150-450); RBC Distribution Width CV 13.9 % (11.6-14.6); RBC Distribution Width SD 46.9 fl (35.1-43.9); Red Blood Count 3.91 M/mm3 (4.2-5.4); White Blood Count 7.7 K/mm3 (4.4-11.0)
[2023-06-27 08:25] LABS: AST(SGOT) 12 U/L (15-37); Alanine Aminotransfer ALT/SGPT 14 U/L (13-56); Albumin, Serum 3.1 g/dL (3.2-5.0); Alkaline Phosphatase 84 U/L (45-117); Anion Gap 5 (5-15); BUN 17 mg/dL (7-18); BUN/Creat Ratio 22.3 RATIO (10-20); Calcium,Total 8.6 mg/dL (8.5-10.1); Chloride 107 mmol/L (98-107); Creatinine, Serum 0.76 mg/dL (0.55-1.02); EST Glomerular Filtration Rate 77 mL/min (>60); Est Glom Filt Rate - Afr Amer 93 mL/min (>60); Estimated Creatinine Clearance 41.18 ml/min; Globulin 3.1 g/dL (2.2-4.2); Glucose 131 mg/dL (74-106); Potassium 3.5 mmol/L (3.5-5.1); Protein, Total 6.2 g/dL (6.4-8.2); Sodium Level 138 mmol/L (136-145); T4 Free Direct 0.82 ng/dL (0.76-1.46); Thyroid Stim Hormone (TSH) 0.58 uIU/mL (0.358-3.74)
[2023-06-27 08:46] LABS: Procalcitonin < 0.04 ng/mL (0.00-0.09)
[2023-06-27] MEDS: Aspirin 81 MG TAB.CHEW PO (09:10)
[2023-06-27] MEDS: Ferrous Sulfate 325 MG Tablet PO ×2 (09:10→18:13)
[2023-06-27] MEDS: Multivitamins,Ther W-Minerals Tablet 1 TABLET PO (09:11)
[2023-06-27] MEDS: Potassium Chloride Oral Tablet 20 MEQ PO ×2 (09:11→18:13)
[2023-06-27] MEDS: Dicyclomine 10 MG Capsule 20 MG PO ×2 (09:12→22:20)
[2023-06-27] MEDS: Isosorbide Mononitrate 60 MG Tablet PO (09:12)
[2023-06-27] MEDS: Furosemide 40 MG Tablet PO ×2 (09:12→18:13)
[2023-06-27] MEDS: dilTIAZem CD 180 MG Capsule PO (09:12)
[2023-06-27] MEDS: Enoxaparin 40 MG/0.4 ML Syringe SC (09:13)
[2023-06-27] MEDS: Sertraline 100 MG Tablet PO (09:13)
[2023-06-27] MEDS: Atenolol 50 MG Tablet PO (09:13)
[2023-06-27] MEDS: Lisinopril 40 MG Tablet PO (09:13)
[2023-06-27] MEDS: Famotidine 20 MG Tablet 40 MG PO ×2 (09:13→22:21)
[2023-06-27] MEDS: Lidocaine 5% Patch 2 PATCH TOPICAL (09:14)
[2023-06-27] MEDS: Glucerna Shake 120 ML LIQUID PO ×4 (09:15→22:26)
[2023-06-27 10:55] VITALS: BP 142/68; PULSE 60; RESP 18; TEMP 36.6; O2SAT 94
[2023-06-27 11:47] LABS: Bedside Glucose 234 mg/dL (74-106)
[2023-06-27] MEDS: Menthol/Lanolin/Calamine/Znox 113 GM Tube 1 APPLIC TOPICAL ×3 (12:49→22:24)
--- NOTE | 2023-06-27 14:44 | CASEMGMT ---
Social Work SW met with patient and patient's daughters and introduced self and role as [facility] SW. Patient agreeable to speak to SW with family present. SW reviewed recommendations for SNF, patient and patient's daughter report patient is agreeable to SNF. SW provided a list of SNF providers including quality and resource use data and consistent with the patient?s preferred geographic region, medical needs, and insurance network was created in [employer]. Patient's daughter reports the patient will be evicted from her current home due to dementia symptoms and will eventually need to discuss group home living options. Patient's daughter explained they have been in contact with [facility] to start services, unsure of progress towards services. Patient's preferences are [facility] and second choice is [facility]. Patient's daughter also voiced interest in [facility] but is unsure if they are an option due to patient having a previous bill. SW informed patient and patient's daughters of referral process; patient and patient's daughters voiced understanding. [facility]. Plan: SNF once medically ready, pending acceptance and precert Lindsey MANCERA, ASHLEY
[2023-06-27 17:04] LABS: Bedside Glucose 165 mg/dL (74-106)
--- NOTE | 2023-06-27 17:29 | CASEMGMT ---
JUDSON ANDERSON NOTE: JUDSON ANDERSON spoke w/Alvaro @ [facility] who states pt has been discharged from [facility]. Minh TERESA RN, CM
[2023-06-27] MEDS: methIMAzole 5 MG TABLET 2.5 MG PO (18:10)
[2023-06-27] MEDS: Insulin Lispro 100 UNIT/ML INSULN.PEN SC (18:12)
[2023-06-27 22:11] VITALS: BP 145/51; PULSE 65; RESP 18; TEMP 37.2; O2SAT 98
[2023-06-27] MEDS: 0.9% Saline Lock 10 ML Syringe IV (22:20)
[2023-06-27 23:01] LABS: Bedside Glucose 144 mg/dL (74-106)
[2023-06-28 06:12] VITALS: BP 133/57; PULSE 64; RESP 18; TEMP 36.8; O2SAT 99
[2023-06-28] MEDS: Miconazole Nitrate 43 GM Bottle 1 APPLIC TOPICAL ×3 (06:15→22:06)
--- NOTE | 2023-06-28 07:55 | PN.HOSP_ITS ---
Reason for Visit Reason for Visit: Diagnoses Adult failure to thrive (06/26/23) Objective Data Objective Data Vital Signs: Vital Signs Temp Pulse Resp BP Pulse Ox O2 Del Method 98.3 F 64 18 133/57 H 99 Room Air 06/28/23 06:12 06/28/23 06:12 06/28/23 06:12 06/28/23 06:12 06/28/23 06:12 06/28/23 06:12 Oxygen Delivery Method Room Air Weight: 134 lb 14.766 oz Body Mass Index (BMI) 27.2 Intake & Output: Intake and Output for Last 24 Hours 06/26/23 06/27/23 06/28/23 23:59 23:59 23:59 Intake Total 600 / 600 200 / 200 Output Total 350 / 350 Balance 250 / 250 200 / 200 Lab / Micro Data 06/27/23 06:45 06/27/23 06:45 Labs: Laboratory Results - last 24 hr 06/27/23 06:45: WBC 7.7, RBC 3.91 L, Hgb 11.5 L, Hct 36.7 L, MCV 93.9, MCH 29.4, MCHC 31.3 L, RDW Std Deviation 46.9 H, RDW Coeff of Aubrie 13.9, Plt Count 222, MPV 11.0, Immature Gran % (Auto) 0.500, Neut % (Auto) 60.2, Lymph % (Auto) 24.7, [place] % (Auto) 8.1, Eos % (Auto) 5.7 H, Baso % (Auto) 0.8, Absolute Neuts (auto) 4.6, Absolute Lymphs (auto) 1.89, Nucleated RBC % 0, Sodium 138, Potassium 3.5, Chloride 107, Carbon Dioxide 26.0, Anion Gap 5, BUN 17, Creatinine 0.76, Estim Creat Clear Calc 41.18, Est GFR (MDRD) Af Amer 93, Est GFR (MDRD) Non-Af 77, BUN/Creatinine Ratio 22.3 H, Glucose 131 H, Calcium 8.6, Total Bilirubin 0.40, AST 12 L, ALT 14, Alkaline Phosphatase 84, Total Protein 6.2 L, Albumin 3.1 L, Globulin 3.1, Albumin/Globulin Ratio 1.0, Procalcitonin < 0.04, TSH 0.58, Free T4 0.82 06/27/23 11:27: POC Glucose 234 H 06/27/23 16:43: POC Glucose 165 H 06/27/23 22:19: POC Glucose 144 H Physical Exam Narrative Seen and examined. Her daughter present. Patient states she has chronic diarrhea and whenever she eats, liquid stool comes out. This is for years. No abdominal pain nausea or vomiting. Physical exam General: Alert, Oriented x3, Cooperative HEENT: Atraumatic, PERRLA, EOMI, Normocephalic Oral: Oral mucosa moist. No Gingival or Mucosal Lesions/ Ulcerations Neck: Supple, No JVD, Negative Carotid Bruits Lungs: Air entry diminished in bilateral lung bases. No crepitation/rhonchi Cardiovascular: Regular rate, Regular Rhythm, Normal S1, Normal S2, No murmurs Abdomen: Bowel Sounds Present, Soft, Non Tender, Non-Distended. Liquid stool in diaper : No renal angle tenderness. No suprapubic tenderness. Extremities: No edema, Capillary Refill Less than 3 Seconds Skin: No rashes, No breakdown Musculoskeletal: No Tenderness to Palpation of Joints or Extremities. Muscle strength 5/5 at hip and knee joints. Neurological: Cranial nerves II-XII grossly intact, DTR 2+/4. No acute focal neurological deficit. Psych/Mental Status: Sometimes hallucination and delusion. Dementia and amnesia Assessment & Plan Assessment/Plan (1) Adult failure to thrive: PLAN: Plan The patient is an 83 y/o F WHO IS ADMITTED TO on 06/26/23 for advanced dementia complicated with delusion and hallucination and behavioral abnormality, chronic expressive aphasia and dysarthria and recurrent fall. She herself denies fall unsteady gait or loss of equilibrium. #1. Debility due to advanced dementia with behavioral abnormality, hallucination and delusion, failure to thrive and recurrent fall: [facility] Fall prevention. She herself denies burning micturition or neuro intact symptoms. LE 500. WBC 5200 cells, 2+ bacteria. Nitrite negative. Last urine culture 06/02/2023 shows Citrobacter and Proteus mirabilis 80,000-100,000 suggestive of either contamination or colonization. 06/28: Repeat urine culture shows GNR lactose vice chair [phone] colonies. With neurological symptoms of delusion, and previous Citrobacter/Proteus mirabilis, decided to treat, started on IV ceftriaxone 1 g daily for 3 days although it might be colonization. Possible symptomatic acute cystitis 2. Chronic diarrhea: C. difficile was negative on 06/03/2023. Giardia stool antigen ordered. #3. Chronic anemia/iron deficiency anemia: Admission hemoglobin 12.2, prior baseline more recently since January 28 to , stable, continue to trend, continue iron supplementation. #4. HFrEF/Ischemic cardiomyopathy: 06/02/2023 echocardiogram with EF 25%, severe global LV systolic dysfunction, moderate MVI, mild TVI, RVSP 45 mmHg. We will continue aspirin, not on statin therapy, continue atenolol as well as lisinopril and Lasix regimen with very judicious hydration and only if necessary given significantly reduced EF. #5. Hyperthyroidism: We will continue patient home methimazole regimen, will obtain TSH and free T4 given presentation history. #6. Hypertension: Continue home regimen including lisinopril, isosorbide, Lasix, diltiazem, atenolol with hold parameters as needed, PRN hydralazine. #7. CAD: Status post PCI,continue aspirin, metoprolol, lisinopril, not on statin therapy, defer to outpatient. #8. Diabetes mellitus type II: Hold oral home regimen, ADA diet, accu checks w/ ISS. #9. Hyperlipidemia: Not on statin therapy, defer to outpatient. #10. Anxiety and depression and acute Intertrigo:on nystatin topical regimen and nursing care.continue patient home sertraline. 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 #12. Hx VTE: s/p DVT, PE prior, not chronically anticoagulated, high fall risk noted in chart. #13. GERD: We will continue patient on famotidine regimen. #14. DVT Prophylaxis: Lovenox. #15. CODE status: Patient's daughter present, discussed CODE status at length with both daughter and patient including difference between FULL code, DNR-CCA and DNR-CC status. Following discussions about the differences in these status, requested DNR-CCA, no intubation status. Charges/Coding Visit Charges Inpatient E&M: 39097 Subs Hosp L2
[2023-06-28 08:09] VITALS: O2SAT 94
[2023-06-28] MEDS: Ferrous Sulfate 325 MG Tablet PO (09:59)
[2023-06-28] MEDS: Potassium Chloride Oral Tablet 20 MEQ PO (09:59)
[2023-06-28] MEDS: Aspirin 81 MG TAB.CHEW PO (09:59)
[2023-06-28] MEDS: Multivitamins,Ther W-Minerals Tablet 1 TABLET PO (10:00)
[2023-06-28] MEDS: Dicyclomine 10 MG Capsule 20 MG PO ×2 (10:00→22:05)
[2023-06-28] MEDS: Menthol/Lanolin/Calamine/Znox 113 GM Tube 1 APPLIC TOPICAL ×3 (10:01→22:07)
[2023-06-28] MEDS: dilTIAZem CD 180 MG Capsule PO (10:01)
[2023-06-28] MEDS: Glucerna Shake 120 ML LIQUID PO ×3 (10:01→22:06)
[2023-06-28] MEDS: Famotidine 20 MG Tablet 40 MG PO ×2 (10:02→22:05)
[2023-06-28] MEDS: methIMAzole 5 MG TABLET 2.5 MG PO (10:03)
[2023-06-28] MEDS: Lisinopril 40 MG Tablet PO (10:03)
[2023-06-28] MEDS: Furosemide 40 MG Tablet PO (10:03)
[2023-06-28] MEDS: Atenolol 50 MG Tablet PO (10:04)
[2023-06-28] MEDS: Sertraline 100 MG Tablet PO (10:04)
[2023-06-28 10:44] VITALS: BP 156/71; PULSE 61; RESP 18; TEMP 36.7; O2SAT 99
[2023-06-28 11:57] LABS: Bedside Glucose 125 mg/dL (74-106)
[2023-06-28] MEDS: Isosorbide Mononitrate 60 MG Tablet PO (13:52)
[2023-06-28] MEDS: Enoxaparin 40 MG/0.4 ML Syringe SC (13:52)
[2023-06-28] MEDS: Ceftriaxone 1 GM/50 ML BAG IV (13:53)
[2023-06-28 16:30] VITALS: BP 131/71; PULSE 66; RESP 18; TEMP 36.7; O2SAT 95
[2023-06-28 19:53] LABS: Bedside Glucose 119 mg/dL (74-106)
[2023-06-28 22:01] VITALS: BP 158/67; PULSE 61; RESP 17; TEMP 36.8; O2SAT 96
[2023-06-28] MEDS: Insulin Lispro 100 UNIT/ML INSULN.PEN SC (22:06)
[2023-06-28 22:58] LABS: Bedside Glucose 159 mg/dL (74-106)
[2023-06-29 03:31] VITALS: BP 131/90; PULSE 60; RESP 16; TEMP 36.7; O2SAT 99
[2023-06-29 06:00] VITALS: BMI 26.4
[2023-06-29] MEDS: Miconazole Nitrate 43 GM Bottle 1 APPLIC TOPICAL ×3 (06:18→21:54)
[2023-06-29] MEDS: Insulin Lispro 100 UNIT/ML INSULN.PEN SC ×3 (06:18→16:49)
[2023-06-29] MEDS: 0.9% Saline Lock 10 ML Syringe IV (06:23)
[2023-06-29 06:41] LABS: Bedside Glucose 150 mg/dL (74-106)
--- NOTE | 2023-06-29 07:33 | PN.HOSP_ITS ---
Reason for Visit Reason for Visit: Diagnoses Adult failure to thrive (06/26/23) Subjective Subjective No new events. Objective Data Objective Data Vital Signs: Vital Signs Temp Pulse Resp BP Pulse Ox O2 Del Method 36.7 C 60 16 131/90 H 99 Room Air 06/29/23 03:31 06/29/23 03:31 06/29/23 03:31 06/29/23 03:31 06/29/23 03:31 06/29/23 03:31 Oxygen Delivery Method Room Air Weight: 59.5 kg Body Mass Index (BMI) 26.4 Intake & Output: Intake and Output for Last 24 Hours 06/27/23 06/28/23 06/29/23 23:59 23:59 23:59 Intake Total 600 / 600 625 / 625 Output Total 350 / 350 Balance 250 / 250 625 / 625 Lab / Micro Data 06/27/23 06:45 06/27/23 06:45 Labs: Laboratory Results - last 24 hr 06/28/23 06:15: POC Glucose 125 H 06/28/23 16:59: POC Glucose 119 H 06/28/23 22:04: POC Glucose 159 H 06/29/23 06:16: POC Glucose 150 H Micro: Microbiology 06/27/23 04:55 Urine, Clean Catch Urine Culture - Preliminary GNR lactose location and measurement technician Physical Exam Const alert and no apparent distress Resp normal respiratory effort, no retractions, no use of accessory muscles and clear to auscultation bilaterally Cardio regular rate, regular rhythm, S1 normal heart sound and S2 normal heart sound GI normal to inspection, nondistended, normoactive bowel sounds, soft to palpation, non-tender and non-distended Assessment & Plan Assessment/Plan (1) Adult failure to thrive: PLAN: Debility due to advanced dementia with behavioral abnormality, hallucination and delusion, failure to thrive and recurrent fall She herself denies burning micturition or neuro intact symptoms. LE 500. WBC 5200 cells, 2+ bacteria. Nitrite negative. Last urine culture 06/02/2023 shows Citrobacter and Proteus mirabilis 80,000-100,000 suggestive of either contamination or colonization. 06/28: Repeat urine culture shows GNR lactose location and measurement technician [phone] colonies. With neurological symptoms of delusion, and previous Citrobacter/Proteus mirabilis, decided to treat, started on IV ceftriaxone 1 g daily for 3 days although it might be colonization. Possible symptomatic acute cystitis (2) UTI (urinary tract infection): QUALIFIERS: Hematuria presence: without hematuria Urinary tract infection type: acute cystitis Qualified Code(s): N30.00 - Acute cystitis without hematuria PLAN: Stevens sensitve E. coli Change abx to nitrofurantoin. PLAN: Plan Chronic conditions: * Chronic diarrhea: C. difficile was negative on 06/03/2023. Giardia stool antigen ordered. * Chronic anemia/iron deficiency anemia: stable * HFrEF/Ischemic cardiomyopathy: 06/02/2023 echocardiogram with EF 25%, severe global LV systolic dysfunction, moderate MVI, mild TVI, RVSP 45 mmHg. Con tinue aspirin, not on statin therapy, continue atenolol as well as lisinopril and Lasix regimen with very judicious hydration and only if necessary given significantly reduced EF. * Hyperthyroidism: We will continue patient home methimazole regimen, TSH FT4 WNL * Hypertension: stable. Continue lisinopril, isosorbide, Lasix, diltiazem, atenolol with hold parameters as needed, PRN hydralazine. * CAD: Status post PCI,continue aspirin, metoprolol, lisinopril, not on statin therapy, defer to outpatient. * Diabetes mellitus type II: stable. Hold oral home regimen, ADA diet, accu checks w/ ISS. * Hyperlipidemia: Not on statin therapy, defer to outpatient. * Anxiety and depression: continue sertraline. * History of tacky-bradycardia syndrome: Status post pacemaker placement. * Hx VTE: s/p DVT, PE prior, not chronically anticoagulated, high fall risk noted in chart. * GERD: continue H2B DVT Prophylaxis: Lovenox. CODE status: DNRCCA, no intubation. Disposition: to SNF pending insurance authorization. [facility] patient's dtr at bedside. Charges/Coding Visit Charges Inpatient E&M: 54902 Subs Hosp L2
[2023-06-29] MEDS: Ferrous Sulfate 325 MG Tablet PO ×2 (08:14→16:49)
[2023-06-29] MEDS: Enoxaparin 40 MG/0.4 ML Syringe SC (08:14)
[2023-06-29] MEDS: Glucerna Shake 120 ML LIQUID PO ×3 (08:14→21:54)
[2023-06-29] MEDS: Potassium Chloride Oral Tablet 20 MEQ PO ×2 (08:14→16:48)
[2023-06-29 08:15] VITALS: BP 152/50; PULSE 61; RESP 18; TEMP 36.8; O2SAT 98
[2023-06-29] MEDS: Furosemide 40 MG Tablet PO ×2 (08:15→16:49)
[2023-06-29] MEDS: Atenolol 50 MG Tablet PO (08:15)
[2023-06-29] MEDS: methIMAzole 5 MG TABLET 2.5 MG PO (08:15)
[2023-06-29] MEDS: Famotidine 20 MG Tablet 40 MG PO ×2 (08:15→21:55)
[2023-06-29] MEDS: Isosorbide Mononitrate 60 MG Tablet PO (08:16)
[2023-06-29] MEDS: Lisinopril 40 MG Tablet PO (08:16)
[2023-06-29] MEDS: Sertraline 100 MG Tablet PO (08:16)
[2023-06-29] MEDS: dilTIAZem CD 180 MG Capsule PO (08:16)
[2023-06-29] MEDS: Menthol/Lanolin/Calamine/Znox 113 GM Tube 1 APPLIC TOPICAL ×3 (08:17→21:54)
[2023-06-29] MEDS: Multivitamins,Ther W-Minerals Tablet 1 TABLET PO (08:17)
[2023-06-29] MEDS: Aspirin 81 MG TAB.CHEW PO (08:17)
[2023-06-29] MEDS: Dicyclomine 10 MG Capsule 20 MG PO ×2 (08:17→21:53)
[2023-06-29 08:40] VITALS: O2SAT 98
--- NOTE | 2023-06-29 10:03 | CASEMGMT ---
Addendum entered by Daisha Hoskins 06/29/23 11:19: Social Work [facility] is able to accept pt and precert to start at this time. Pt dgt Ailyn updated and agreeable. Plan: [facility], pending ANGELICA Youngblood Original Note: Social Work SW met with pt and dgt Ailyn and introduced self and role of SW. SW updated Ailyn that [facility] is not able to accept as they do not have a dementia unit. Dgt agreeable to referral to [facility]. DC construction management assistant updated and referral to be sent to [facility]. Plan: [facility], pending acceptance and ANGELICA Barnhart
--- NOTE | 2023-06-29 10:09 | CASEMGMT ---
Discharge Planning Updates sent to [place] via [facility]. Frances Bagley, Discharge Planning Asst.
--- NOTE | 2023-06-29 10:17 | CASEMGMT ---
Discharge Planning Patient has been accepted by [facility]. Asked for precert to be started. SW updated. Frances Bagley, Discharge Planning Asst.
[2023-06-29] MEDS: Ceftriaxone 1 GM/50 ML BAG IV (10:58)
[2023-06-29 12:10] LABS: Bedside Glucose 171 mg/dL (74-106)
[2023-06-29 15:23] VITALS: BP 106/38; PULSE 59; RESP 16; TEMP 36.8; O2SAT 95
[2023-06-29 16:50] VITALS: BP 125/47
[2023-06-29 17:11] LABS: Bedside Glucose 232 mg/dL (74-106)
[2023-06-29] MEDS: Nitrofurantoin Macrocrystals 100 MG Capsule PO (21:55)
[2023-06-29] MEDS: MELATONIN 3 MG TABLET PO (22:04)
[2023-06-29] MEDS: Acetaminophen 325 MG Tablet 650 MG PO (22:05)
[2023-06-29 22:07] VITALS: BP 153/62; PULSE 60; RESP 16; TEMP 36.8; O2SAT 99
[2023-06-29 22:32] LABS: Bedside Glucose 133 mg/dL (74-106)
[2023-06-30 06:00] VITALS: BMI 27.1
[2023-06-30] MEDS: Miconazole Nitrate 43 GM Bottle 1 APPLIC TOPICAL ×3 (06:00→20:45)
[2023-06-30 06:06] VITALS: BP 151/54; PULSE 60; RESP 16; TEMP 36.9; O2SAT 98
[2023-06-30 06:26] LABS: Bedside Glucose 126 mg/dL (74-106)
--- NOTE | 2023-06-30 07:34 | PCM.PN.HOSP ---
Reason for Visit Reason for Visit: Diagnoses Acute cystitis without hematuria (06/26/23) Adult failure to thrive (06/26/23) Subjective Subjective No new complaints. Objective Data Objective Data Vital Signs: Vital Signs Temp Pulse Resp BP Pulse Ox O2 Del Method 36.9 C 60 16 151/54 H 98 Room Air 06/30/23 06:06 06/30/23 06:06 06/30/23 06:06 06/30/23 06:06 06/30/23 06:06 06/30/23 06:06 Oxygen Delivery Method Room Air Weight: 61 kg Body Mass Index (BMI) 27.1 Intake & Output: Intake and Output for Last 24 Hours 06/28/23 06/29/23 06/30/23 23:59 23:59 23:59 Intake Total 625 / 625 820 / 820 Balance 625 / 625 820 / 820 Lab / Micro Data 06/27/23 06:45 06/27/23 06:45 Labs: Laboratory Results - last 24 hr 06/29/23 11:29: POC Glucose 171 H 06/29/23 16:45: POC Glucose 232 H 06/29/23 22:11: POC Glucose 133 H 06/30/23 05:59: POC Glucose 126 H Micro: Microbiology 06/27/23 04:55 Urine, Clean Catch Urine Culture - Final Escherichia coli Physical Exam Const alert and no apparent distress HEENT head/scalp atraumatic and moist oral mucous membranes Resp normal respiratory effort, no retractions, no use of accessory muscles and clear to auscultation bilaterally Cardio regular rate, regular rhythm, S1 normal heart sound and S2 normal heart sound Assessment & Plan Assessment/Plan (1) Adult failure to thrive: PLAN: Debility due to advanced dementia with behavioral abnormality, hallucination and delusion, failure to thrive and recurrent fall She herself denies burning micturition or neuro intact symptoms. LE 500. WBC 5200 cells, 2+ bacteria. Nitrite negative. Last urine culture 06/02/2023 shows Citrobacter and Proteus mirabilis 80,000-100,000 suggestive of either contamination or colonization. 06/28: Repeat urine culture shows GNR lactose machine brush maker [phone] colonies. With neurological symptoms of delusion, and previous Citrobacter/Proteus mirabilis, decided to treat, started on IV ceftriaxone 1 g daily for 3 days although it might be colonization. Possible symptomatic acute cystitis (2) UTI (urinary tract infection): QUALIFIERS: Hematuria presence: without hematuria Urinary tract infection type: acute cystitis Qualified Code(s): N30.00 - Acute cystitis without hematuria PLAN: Stevens sensitve E. coli Change abx to nitrofurantoin. PLAN: Plan Chronic conditions: Chronic diarrhea: C. difficile was negative on 06/03/2023. Giardia stool antigen ordered. Chronic anemia/iron deficiency anemia: stable HFrEF/Ischemic cardiomyopathy: 06/02/2023 echocardiogram with EF 25%, severe global LV systolic dysfunction, moderate MVI, mild TVI, RVSP 45 mmHg. Continue aspirin, not on statin therapy, continue atenolol as well as lisinopril and Lasix regimen with very judicious hydration and only if necessary given significantly reduced EF. Hyperthyroidism: We will continue patient home methimazole regimen, TSH FT4 WNL Hypertension: stable. Continue lisinopril, isosorbide, Lasix, diltiazem, atenolol with hold parameters as needed, PRN hydralazine. CAD: Status post PCI,continue aspirin, metoprolol, lisinopril, not on statin therapy, defer to outpatient. Diabetes mellitus type II: stable. Hold oral home regimen, ADA diet, accu checks w/ ISS. Hyperlipidemia: Not on statin therapy, defer to outpatient. Anxiety and depression: continue sertraline. 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 GERD: continue H2B DVT Prophylaxis: Lovenox. CODE status: DNRCCA, no intubation. Disposition: to SNF pending insurance authorization. [facility] patient's dtr at bedside. Charges/Coding Visit Charges Inpatient E&M: 81064 [facility] Hosp L1
[2023-06-30 09:17] VITALS: BP 154/48; PULSE 60; RESP 18; TEMP 36.5; O2SAT 98
[2023-06-30] MEDS: Lisinopril 40 MG Tablet PO (09:20)
[2023-06-30] MEDS: Potassium Chloride Oral Tablet 20 MEQ PO ×2 (09:20→19:34)
[2023-06-30] MEDS: Aspirin 81 MG TAB.CHEW PO (09:20)
[2023-06-30] MEDS: Multivitamins,Ther W-Minerals Tablet 1 TABLET PO (09:21)
[2023-06-30] MEDS: Isosorbide Mononitrate 60 MG Tablet PO (09:21)
[2023-06-30] MEDS: Famotidine 20 MG Tablet 40 MG PO ×2 (09:21→20:41)
[2023-06-30] MEDS: Dicyclomine 10 MG Capsule 20 MG PO ×2 (09:21→20:44)
[2023-06-30] MEDS: Nitrofurantoin Macrocrystals 100 MG Capsule PO ×2 (09:21→21:00)
[2023-06-30] MEDS: Ferrous Sulfate 325 MG Tablet PO ×2 (09:21→19:34)
[2023-06-30] MEDS: methIMAzole 5 MG TABLET 2.5 MG PO (09:21)
[2023-06-30] MEDS: Enoxaparin 40 MG/0.4 ML Syringe SC (09:21)
[2023-06-30] MEDS: Sertraline 100 MG Tablet PO (09:21)
[2023-06-30] MEDS: Furosemide 40 MG Tablet PO ×2 (09:22→19:34)
[2023-06-30] MEDS: dilTIAZem CD 180 MG Capsule PO (09:22)
[2023-06-30] MEDS: Atenolol 50 MG Tablet PO (09:22)
[2023-06-30] MEDS: Menthol/Lanolin/Calamine/Znox 113 GM Tube 1 APPLIC TOPICAL ×3 (09:23→20:45)
[2023-06-30] MEDS: Glucerna Shake 120 ML LIQUID PO ×3 (09:25→20:47)
[2023-06-30 09:26] VITALS: BP 141/66
[2023-06-30] MEDS: Insulin Lispro 100 UNIT/ML INSULN.PEN SC ×2 (11:45→20:58)
[2023-06-30 12:01] LABS: Bedside Glucose 288 mg/dL (74-106)
--- NOTE | 2023-06-30 12:38 | CASEMGMT ---
Discharge Planning Auth received by [facility]. SW updated. Frances Bagley, Discharge Planning Asst.
--- NOTE | 2023-06-30 14:59 | PCM.TXEXTCAR ---
Diet Diet Order/Speech Therapy: 06/26/23 23:55 Diet: Consistent Carb - Calorie Controlled Food consistency:: Regular Liquid Consistency:: Regular/Thin How many daily calories?: 1800 calorie Routine Orders/Code Status Routine Lab Work: CBC and BMP Code Status: DNRCC-A (no intubation) Therapies Weight Bearing: Full weight bearing Physical Therapy: Eval and Treat Occupational Therapy: Eval and Treat Problem/Diagnosis (1) Adult failure to thrive: Status: Acute Code(s): R62.7 - Adult failure to thrive Plan: Debility due to advanced dementia with behavioral abnormality, hallucination and delusion, failure to thrive and recurrent fall She herself denies burning micturition or neuro intact symptoms. LE 500. WBC 5200 cells, 2+ bacteria. Nitrite negative. Last urine culture 06/02/2023 shows Citrobacter and Proteus mirabilis 80,000-100,000 suggestive of either contamination or colonization. 06/28: Repeat urine culture shows GNR lactose cannon fire direction specialist [phone] colonies. With neurological symptoms of delusion, and previous Citrobacter/Proteus mirabilis, decided to treat, started on IV ceftriaxone 1 g daily for 3 days although it might be colonization. Possible symptomatic acute cystitis (2) UTI (urinary tract infection): Status: Resolved Code(s): N39.0 - Urinary tract infection, site not specified Plan: Stevens sensitve E. coli Change abx to nitrofurantoin. Plan Chronic conditions: Chronic diarrhea: C. difficile was negative on 06/03/2023. Giardia stool antigen ordered. Chronic anemia/iron deficiency anemia: stable HFrEF/Ischemic cardiomyopathy: 06/02/2023 echocardiogram with EF 25%, severe global LV systolic dysfunction, moderate MVI, mild TVI, RVSP 45 mmHg. Continue aspirin, not on statin therapy, continue atenolol as well as lisinopril and Lasix regimen with very judicious hydration and only if necessary given significantly reduced EF. Hyperthyroidism: We will continue patient home methimazole regimen, TSH FT4 WNL Hypertension: stable. Continue lisinopril, isosorbide, Lasix, diltiazem, atenolol with hold parameters as needed, PRN hydralazine. CAD: Status post PCI,continue aspirin, metoprolol, lisinopril, not on statin therapy, defer to outpatient. Diabetes mellitus type II: stable. Hold oral home regimen, ADA diet, accu checks w/ ISS. Hyperlipidemia: Not on statin therapy, defer to outpatient. Anxiety and depression: continue sertraline. 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 GERD: continue H2B DVT Prophylaxis: Lovenox. CODE status: DNRCCA, no intubation. Disposition: to SNF pending insurance authorization. [facility] patient's dtr at bedside. Allergies/Procedures Done in Hospital Allergies latex Allergy (Verified 06/10/23 15:49) Other RASH ON HANDS WHEN SHE USED LATEX GLOVES WHEN WORKED AT [employer]ISON 17 YRS AGO Procedures: None Type of Care/Length of Stay Estimated LOS: Convalescent Care Less Than 30 days Type of Care Needed: Skilled Rehab Potential: Fair Prognosis: Good Additional Orders/Day of Discharge Day of Discharge: 06/30/23 Dietary and Speech Recommendations Dietitian Recommendations/Changes: Continue with Consistent Carbohydrate - Calorie Controlled 1800kcal diet with Glucerna 120mL 4x/day with medpass to help maintain oral intakes. Will continue to monitor oral intakes and modify interventions as needed. Discharge Plan Admission Admit Date/Time: 06/26/23 22:38 Primary Reason for Your Visit: debility. UTI Attending Provider: Quinton Aragon Primary Care Provider: Mary Azevedo Consulting Providers: Ysabel Ruiz; Arnold Rosairo Discharge Orders/Prescriptions Prescriptions: New loperamide 2 mg Capsule 2 mg PO Q2H PRN PRN (Reason: Diarrhea) Qty: 0 0RF miconazole nitrate [Desenex] 2 % Powder 1 applic topical TID Qty: 0 0RF Protocol: *Topical Application Instructions APPLICATION INSTRUCTIONS: to affected regions aspirin 81 mg Tablet,Chewable 81 mg PO BREAKFAST Qty: 0 0RF nitrofurantoin monohyd/m-cryst 100 mg Capsule 100 mg PO BID Qty: 0 0RF menthol-zinc oxide [Calmoseptine] 0.44-20.6 % Ointment 1 applic topical 4X/DAY Qty: 0 0RF Protocol: *Topical Application Instructions APPLICATION INSTRUCTIONS: apply to affected region insulin lispro [Humalog KwikPen Insulin] 100 unit/mL Insulin Pen See Protocol subcut ACHS Qty: 0 0RF Protocol: 3. Sliding Scale Insulin Med Dosing Condition: 150-189 mg/dl = 1 unit Condition: 190-229 mg/dl = 2 units Condition: 230-269 mg/dl = 3 units Condition: 270-309 mg/dl = 4 units Condition: 310-349 mg/dl = 5 units Condition: 350-399 mg/dl = 6 units Condition: 400-449 mg/dl = 7 units Condition: Greater than 449 call physician Protocol Text: - Use for Total Daily Dose of Insulin 37-55 units - Obsese, infected, or steroid patients MEDIUM DOSING ALGORITHIM Continued sertraline 100 mg tablet 100 mg PO DAILY lisinopril 40 mg tablet 40 mg PO DAILY Prolia 60 mg/mL syringe 60 mg subcut [id number] Qty: 1 1RF Jardiance 10 mg tablet 10 mg PO DAILY Qty: 90 3RF (DME) blood sugar diagnostic Strip See Rx Instructions .ROUTE .MEDSUPPLY Rx Instructions: test three times a day (DME) blood-glucose meter Kit See Rx Instructions .ROUTE .MEDSUPPLY Rx Instructions: As directed Glucerna 1.2 [place] 0.06-1.2 gram-kcal/mL liquid 120 ml PO 4X/DAY atenolol 50 mg tablet 50 mg PO DAILY Rx Instructions: Take 1 tablet by mouth once daily for blood pressure lidocaine [Lidoderm] 5 % adhesive patch,medicated 2 patch topical DAILY Qty: 15 0RF Rx Instructions: leave on most painful area for up to 12 hrs metformin 500 mg tablet 500 mg PO DAILY acetaminophen 325 mg Tablet 650 mg PO Q6H PRN PRN (Reason: Pain 1-10 Or Fever >100.7) Qty: 0 0RF diltiazem HCl 180 mg Capsule,Extended Release 24hr 180 mg PO DAILY Qty: 30 0RF famotidine 20 mg Tablet 40 mg PO BID Qty: 60 0RF dicyclomine 20 mg tablet 20 mg PO BID Qty: 60 0RF potassium chloride 20 mEq tablet extended release 20 meq PO BIDCM Qty: 90 2RF Rx Instructions: Take 1 tablet by mouth once daily furosemide [Lasix] 40 mg tablet 40 mg PO BID Qty: 180 3RF isosorbide mononitrate 60 mg tablet extended release 24 hr 60 mg PO DAILY Qty: 90 3RF Rx Instructions: Take 1 tablet by mouth once daily methimazole 5 mg tablet 2.5 mg PO DAILY Qty: 15 6RF cholecalciferol (vitamin D3) 1,250 mcg (50,000 unit) capsule 1,250 mcg PO QWEEK Qty: 12 1RF ferrous sulfate 325 mg (65 mg iron) tablet 325 mg PO BID Qty: 60 1RF Referrals / Follow Up: Mary Azevedo MD [Primary Care Provider] - Within 2 Weeks Disposition Disposition (needs filled in before D/C Order can be placed): [facility] (2) UTI (urinary tract infection) Qualifiers: Urinary tract infection type: acute cystitis Hematuria presence: without hematuria Qualified Code(s): N30.00 - Acute cystitis without hematuria
--- NOTE | 2023-06-30 15:07 | DS.PCM_ITS ---
Providers Date of Admission: 06/26/23 Primary Care Physician: Dr. Mary Azevedo MD Reason For Visit: ADULT FTT, FALLS, DEMENTIA LIVING ALONE. Diagnosis Discharge Diagnosis (1) Adult failure to thrive: Status: Acute Code(s): R62.7 - Adult failure to thrive Plan: Debility due to advanced dementia with behavioral abnormality, hallucination and delusion, failure to thrive and recurrent fall She herself denies burning micturition or neuro intact symptoms. LE 500. WBC 5200 cells, 2+ bacteria. Nitrite negative. Last urine culture 06/02/2023 shows Citrobacter and Proteus mirabilis 80,000-100,000 suggestive of either contamination or colonization. 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 With neurological symptoms of delusion, and previous Citrobacter/Proteus mirab ilis, decided to treat, started on IV ceftriaxone 1 g daily for 3 days although it might be colonization. Possible symptomatic acute cystitis (2) UTI (urinary tract infection): Status: Resolved Code(s): N39.0 - Urinary tract infection, site not specified Qualifiers: Urinary tract infection type: acute cystitis Hematuria presence: without hematuria Qualified Code(s): N30.00 - Acute cystitis without hematuria Plan: Stevnes sensitve E. coli Change abx to nitrofurantoin. Plan Chronic conditions: * Chronic diarrhea: C. difficile was negative on 06/03/2023. Giardia stool antigen ordered. * Chronic anemia/iron deficiency anemia: stable * HFrEF/Ischemic cardiomyopathy: 06/02/2023 echocardiogram with EF 25%, severe global LV systolic dysfunction, moderate MVI, mild TVI, RVSP 45 mmHg. Continue aspirin, not on statin therapy, continue atenolol as well as lisinop ril and Lasix regimen with very judicious hydration and only if necessary given significantly reduced EF. * Hyperthyroidism: We will continue patient home methimazole regimen, TSH FT4 WNL * Hypertension: stable. Continue lisinopril, isosorbide, Lasix, diltiazem, atenolol with hold parameters as needed, PRN hydralazine. * CAD: Status post PCI,continue aspirin, metoprolol, lisinopril, not on statin therapy, defer to outpatient. * Diabetes mellitus type II: stable. Hold oral home regimen, ADA diet, accu checks w/ ISS. * Hyperlipidemia: Not on statin therapy, defer to outpatient. * Anxiety and depression: continue sertraline. * History of tacky-bradycardia syndrome: Status post pacemaker placement. * Hx VTE: s/p DVT, PE prior, not chronically anticoagulated, high fall risk noted in chart. * GERD: continue H2B DVT Prophylaxis: Lovenox. CODE status: DNRCCA, no intubation. Disposition: to SNF DW patient's dtr at bedside. Medications at Discharge Home Medications blood sugar diagnostic 12/30/21 blood-glucose meter 12/30/21 nutrition tx glu intol,lac-free,soy-fiber 0.06 gram-1.2 kcal/mL liquid (Glucerna 1.2 Norman) 120 ml PO 4X/DAY Supplement 05/12/22 lisinopril 40 mg tablet 40 mg PO DAILY blood pressure 06/11/22 sertraline 100 mg tablet 100 mg PO DAILY mental health 08/06/22 Prolia 60 mg/mL subcutaneous syringe (denosumab) 60 mg subcut [id number] #1 mL 11/06/22 furosemide 40 mg tablet (Lasix) 40 mg PO BID Fluid retention- take 4 to 6 hours apart #180 tabs 11/18/22 atenolol 50 mg tablet 50 mg PO DAILY heart health 11/20/22 empagliflozin 10 mg tablet (Jardiance) 10 mg PO DAILY heart health #90 tabs 01/20/23 isosorbide mononitrate 60 mg tablet,extended release 24 hr 60 mg PO DAILY heart #90 tabs 03/03/23 cholecalciferol (vitamin D3) 1,250 mcg (50,000 unit) capsule 1,250 mcg PO QWEEK vitamin #12 caps 05/19/23 methimazole 5 mg tablet 2.5 mg (1/2 x 5 mg) PO DAILY #15 tabs 05/19/23 ferrous sulfate 325 mg (65 mg iron) tablet 325 mg PO BID supplement #60 tabs 05/25/23 metformin 500 mg tablet 500 mg PO DAILY diabetes 06/02/23 acetaminophen 325 mg tablet 650 mg (2 x 325 mg) PO Q6H PRN PRN Pain 1-10 Or Fever >100.7 #0 tabs 06/03/23 dicyclomine 20 mg tablet 20 mg PO BID #60 tabs 06/03/23 diltiazem HCl 180 mg capsule,extended release 24 hr 180 mg PO DAILY #30 caps 06/03/23 famotidine 20 mg tablet 40 mg (2 x 20 mg) PO BID #60 tabs 06/03/23 potassium chloride 20 mEq tablet,extended release 20 meq PO BIDCM supplement #90 tabs 06/03/23 lidocaine 5 % topical patch (Lidoderm) 2 patch topical DAILY #15 ea 06/10/23 aspirin 81 mg chewable tablet 81 mg PO BREAKFAST #0 tabs 06/30/23 insulin lispro 100 unit/mL subcutaneous pen (Humalog KwikPen (U-100) Insulin) See Protocol subcut ACHS #0 mL 06/30/23 loperamide 2 mg capsule 2 mg PO Q2H PRN PRN Diarrhea #0 caps 06/30/23 menthol 0.44 %-zinc oxide 20.6 % topical ointment (Calmoseptine) 1 applic topical 4X/DAY #0 grams 06/30/23 miconazole nitrate 2 % topical powder (Desenex) 1 applic topical TID #0 grams 06/30/23 nitrofurantoin monohydrate/macrocrystals 100 mg capsule 100 mg PO BID #0 caps 06/30/23 Hospital Course Operations None Procedures None Summary of Care Provided Minutes Spent on Discharge: 35 Hospital Course: 83-year-old female with dementia presents with increased weakness and confusion. Patient was found to have UTI. Urine culture showed pansensitive E. coli is sensitive to Macrobid. Patient will continue with Macrobid through the . Patient was seen by therapy and recommended additional therapy services. Patient will be discharged to [facility] in stable condition. Weight / BMI Weight Weight: 61 kg Body Mass Index (BMI) 27.1 ABG / Lab / Microbiology Data 06/27/23 06:45 06/27/23 06:45 Laboratory: Laboratory Results - last 24 hr 06/29/23 16:45: POC Glucose 232 H 06/29/23 22:11: POC Glucose 133 H 06/30/23 05:59: POC Glucose 126 H 06/30/23 11:37: POC Glucose 288 H Microbiology: Microbiology 06/27/23 04:55 Urine, Clean Catch Urine Culture - Final Escherichia coli Meaningful Use Info Meaningful Use Diagnoses (Choose all that apply): None applicable Discharge Plan Admission Admit Date/Time: 06/26/23 22:38 Primary Reason for Your Visit: debility. UTI Attending Provider: Quinton Aragon Primary Care Provider: Mary Azevedo Consulting Providers: Ysabel Ruiz; Arnold Rosario Discharge Orders/Prescriptions Prescriptions: New loperamide 2 mg Capsule 2 mg PO Q2H PRN PRN (Reason: Diarrhea) Qty: 0 0RF miconazole nitrate [Desenex] 2 % Powder 1 applic topical TID Qty: 0 0RF Protocol: *Topical Application Instructions APPLICATION INSTRUCTIONS: to affected regions aspirin 81 mg Tablet,Chewable 81 mg PO BREAKFAST Qty: 0 0RF nitrofurantoin monohyd/m-cryst 100 mg Capsule 100 mg PO BID Qty: 0 0RF menthol-zinc oxide [Calmoseptine] 0.44-20.6 % Ointment 1 applic topical 4X/DAY Qty: 0 0RF Protocol: *Topical Application Instructions APPLICATION INSTRUCTIONS: apply to affected region insulin lispro [Humalog KwikPen Insulin] 100 unit/mL Insulin Pen See Protocol subcut ACHS Qty: 0 0RF Protocol: 3. Sliding Scale Insulin Med Dosing Condition: 150-189 mg/dl = 1 unit Condition: 190-229 mg/dl = 2 units Condition: 230-269 mg/dl = 3 units Condition: 270-309 mg/dl = 4 units Condition: 310-349 mg/dl = 5 units Condition: 350-399 mg/dl = 6 units Condition: 400-449 mg/dl = 7 units Condition: Greater than 449 call physician Protocol Text: - Use for Total Daily Dose of Insulin 37-55 units - Obsese, infected, or steroid patients MEDIUM DOSING ALGORITHIM Continued sertraline 100 mg tablet 100 mg PO DAILY lisinopril 40 mg tablet 40 mg PO DAILY Prolia 60 mg/mL syringe 60 mg subcut [id number] Qty: 1 1RF Jardiance 10 mg tablet 10 mg PO DAILY Qty: 90 3RF (DME) blood sugar diagnostic Strip See Rx Instructions .ROUTE .MEDSUPPLY Rx Instructions: test three times a day (DME) blood-glucose meter Kit See Rx Instructions .ROUTE .MEDSUPPLY Rx Instructions: As directed Glucerna 1.2 Norman 0.06-1.2 gram-kcal/mL liquid 120 ml PO 4X/DAY atenolol 50 mg tablet 50 mg PO DAILY Rx Instructions: Take 1 tablet by mouth once daily for blood pressure lidocaine [Lidoderm] 5 % adhesive patch,medicated 2 patch topical DAILY Qty: 15 0RF Rx Instructions: leave on most painful area for up to 12 hrs metformin 500 mg tablet 500 mg PO DAILY acetaminophen 325 mg Tablet 650 mg PO Q6H PRN PRN (Reason: Pain 1-10 Or Fever >100.7) Qty: 0 0RF diltiazem HCl 180 mg Capsule,Extended Release 24hr 180 mg PO DAILY Qty: 30 0RF famotidine 20 mg Tablet 40 mg PO BID Qty: 60 0RF dicyclomine 20 mg tablet 20 mg PO BID Qty: 60 0RF potassium chloride 20 mEq tablet extended release 20 meq PO BIDCM Qty: 90 2RF Rx Instructions: Take 1 tablet by mouth once daily furosemide [Lasix] 40 mg tablet 40 mg PO BID Qty: 180 3RF isosorbide mononitrate 60 mg tablet extended release 24 hr 60 mg PO DAILY Qty: 90 3RF Rx Instructions: Take 1 tablet by mouth once daily methimazole 5 mg tablet 2.5 mg PO DAILY Qty: 15 6RF cholecalciferol (vitamin D3) 1,250 mcg (50,000 unit) capsule 1,250 mcg PO QWEEK Qty: 12 1RF ferrous sulfate 325 mg (65 mg iron) tablet 325 mg PO BID Qty: 60 1RF Referrals / Follow Up: Mary Azevedo MD [Primary Care Provider] - Within 2 Weeks Disposition Disposition (needs filled in before D/C Order can be placed): Detention Facility Charges/Coding Visit Charges Inpatient E&M: 21175 Disch Hosp >30min
[2023-06-30 15:39] VITALS: BP 95/78; PULSE 71; RESP 16; TEMP 36.3; O2SAT 95
--- NOTE | 2023-06-30 15:39 | CASEMGMT ---
Discharge Planning Discharge orders, signed med list, and transport time sent to [facility] via [facility]. [facility] will transport patient by cot at 5p. Patients daughter, SW, and nursing updated. Frances Bagley, Discharge Planning Asst.
--- NOTE | 2023-06-30 15:52 | CASEMGMT ---
Social Work Discharged skilled level of care to [facility] today. Collaboration with discharge senior planning analyst Frances, who notified daughter of discharge arrangements. [id number] convalescent exemption form completed for a less than 30 day convalescent stay at the SNF. No other services requested or indicated. -VALENTIN Porras
[2023-06-30 17:06] LABS: Bedside Glucose 117 mg/dL (74-106)
[2023-06-30 19:36] VITALS: BP 124/100
--- NOTE | 2023-06-30 19:49 | NURSING ---
Attempted to call report to Dc, phone range for 2 minutes and there was no answer. Primary HS RN aware.
[2023-06-30 21:05] VITALS: BP 156/62; PULSE 60; RESP 16; TEMP 36.1; O2SAT 100
[2023-06-30 21:22] LABS: Bedside Glucose 177 mg/dL (74-106)
--- NOTE | 2023-07-01 00:06 | NURSING ---
called report to nurse gurpreet Porter. consumer attorney notified family Ailyn of transport time.
== END 2023-07-01 00:01 | disposition skilled nursing facility (03) | DRG 884 ==
LOC: ED 22:04 → MS3 23:07
PROVIDERS: Internal Medicine; Admitting Provider Family Medicine; Emergency Provider Student in an Organized Health Care Education/Training Program; PCP Internal Medicine
DX: F03.92 Unspecified dementia, unspecified severity, with psychotic disturbance (principal); R47.01 Aphasia; N30.00 Acute cystitis without hematuria; I50.22 Chronic systolic (congestive) heart failure; R62.7 Adult failure to thrive; I11.0 Hypertensive heart disease with heart failure; D50.9 Iron deficiency anemia, unspecified; E11.9 Type 2 diabetes mellitus without complications; B96.20 Unspecified Escherichia coli [E. coli] as the cause of diseases classified elsewhere; I48.0 Paroxysmal atrial fibrillation; Z79.4 Long term (current) use of insulin; F32.A Depression, unspecified; E05.90 Thyrotoxicosis, unspecified without thyrotoxic crisis or storm; E78.5 Hyperlipidemia, unspecified; K21.9 Gastro-esophageal reflux disease without esophagitis; I25.5 Ischemic cardiomyopathy; I25.10 Atherosclerotic heart disease of native coronary artery without angina pectoris; M54.50 Low back pain, unspecified; K52.9 Noninfective gastroenteritis and colitis, unspecified; F41.9 Anxiety disorder, unspecified; L30.4 Erythema intertrigo; R13.10 Dysphagia, unspecified; R47.1 Dysarthria and anarthria; R29.6 Repeated falls; G89.29 Other chronic pain; R53.81 Other malaise; Z68.27 Body mass index [BMI] 27.0-27.9, adult; Z66 Do not resuscitate; Z79.84 Long term (current) use of oral hypoglycemic drugs; Z79.82 Long term (current) use of aspirin; Z79.899 Other long term (current) drug therapy; Z95.5 Presence of coronary angioplasty implant and graft; Z95.0 Presence of cardiac pacemaker
CPT/HCPCS: 36415; 70450; 71045; 80053; 81001; 82962; 83735; 84100; 84145; 84439; 84443; 84484; 85025; 87077; 87086; 87088; 87186; 92523; 92526; 93005; 94668; 97110; 97129; 97162; 97165; 97530; 97535; 97802; 99252; 99284; A4216; G0463

== ENCOUNTER 2023-09-21 05:23 | Emergency (ER) | payer MEDICARE, MEDICAID, SELFPAY ==
[2023-09-21 05:24] VITALS: BP 147/90; PULSE 97; RESP 18; TEMP 36.1; BMI 21.4
--- NOTE | 2023-09-21 05:43 | RAD_ITS ---
INDICATION: pain EXAMINATION/TECHNIQUE: X-RAY - LEFT XR Forearm 2 Views COMPARISON: Left wrist x-rays from 11/19/2022. FINDINGS: SOFT TISSUES: Vascular calcifications are present. BONES/JOINTS: No acute fracture or dislocation. Chronic fractures of the distal radius and ulna. No significant degenerative changes. No erosive changes. RAD/Forearm 2 Views IMPRESSION: 1. No acute abnormality. 2. Chronic fractures of the distal radius and ulna. Electronically Signed: Master Burt DO at 6:37 EST ,
--- NOTE | 2023-09-21 06:03 | EX.ED.DYSGE1 ---
HPI History of Present Illness Chief Complaint: Chest Pain Informant: patient, family, EMS and SNF Narrative Narrative: 83-year-old female arriving by EMS with chief complaint of chest pain. Per EMS patient was complaining of chest pain radiating to the left arm. They noted a rash underneath the breast on the left. They also stated that the patient was complaining of abdominal pain. The patient's mental status which is altered by dementia makes it very difficult to obtain accurate history. She is currently pointing to her forearm stating that something was in her arm at 1 point but now its not and its been years. No reported trauma. No recent IVs. Patient points to the area around of her pacemaker on the left chest and states that that is tender. She does so after being prompted with what kind count of chest pain are you having by family. She tells me she is unsure if she is having abdominal pain. Family states she has not had a bowel movement but has not really had anything to eat over the past couple weeks. No reported fevers. Patient has known coronary artery disease. The last visit with cardiology in August and a conservative approach to her cardiac care was agreed upon. I confirmed this with the patient's daughter maulik. [facility] Medical History Anemia Anxiety and depression Atherosclerosis of coronary artery of [place] heart without angina pectoris Back pain due to injury CHF (congestive heart failure) Chronic diarrhea Compression fracture Diabetes Essential hypertension Falls Fracture of left distal radius Frequent falls Gastroesophageal reflux disease History of CHF (congestive heart failure) History of hemorrhoids History of pulmonary embolus (PE) Hyperlipidemia Hypertension Iron deficiency anemia Irritable bowel Ischemic cardiomyopathy Lumbar compression fracture Lumbar spinal stenosis Memory deficit Myocardial infarct Non-smoker Oropharyngeal dysphagia Orthopedic aftercare Osteoporosis Post-menopausal Pulmonary embolism Shortness of breath on exertion 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) Type II diabetes mellitus Vitamin D deficiency Wears dentures Wears glasses Wears hearing aid Home Medications blood sugar diagnostic 12/30/21 [History Last Taken Unknown] blood-glucose meter 12/30/21 [History Last Taken Unknown] nutrition tx glu intol,lac-free,soy-fiber 0.06 gram-1.2 kcal/mL liquid (Glucerna 1.2 Norman) 120 ml PO 4X/DAY Supplement 05/12/22 [History Last Taken Unknown] lisinopril 40 mg tablet 40 mg PO DAILY blood pressure 06/11/22 [History Last Taken Unknown] sertraline 100 mg tablet 100 mg PO DAILY mental health 08/06/22 [History Last Taken Unknown] Prolia 60 mg/mL subcutaneous syringe (denosumab) 60 mg subcut [id number] #1 mL 11/06/22 [Rx Last Taken 2 Months Ago ~11/02/22] atenolol 50 mg tablet 50 mg PO DAILY heart health 11/20/22 [History Last Taken Unknown] empagliflozin 10 mg tablet (Jardiance) 10 mg PO DAILY heart health #90 tabs 01/20/23 [Rx Last Taken Unknown] isosorbide mononitrate 60 mg tablet,extended release 24 hr 60 mg PO DAILY heart #90 tabs 03/03/23 [Rx Last Taken Unknown] cholecalciferol (vitamin D3) 1,250 mcg (50,000 unit) capsule 1,250 mcg PO QWEEK vitamin #12 caps 05/19/23 [Rx Last Taken 06/01/23] methimazole 5 mg tablet 2.5 mg (1/2 x 5 mg) PO DAILY #15 tabs 05/19/23 [Rx Last Taken Unknown] ferrous sulfate 325 mg (65 mg iron) tablet 325 mg PO BID supplement #60 tabs 05/25/23 [Rx Last Taken Unknown] metformin 500 mg tablet 500 mg PO DAILY diabetes 06/02/23 [History Last Taken 06/01/23] acetaminophen 325 mg tablet 650 mg (2 x 325 mg) PO Q6H PRN PRN Pain 1-10 Or Fever >100.7 #0 tabs 06/03/23 [Rx Last Taken Unknown] dicyclomine 20 mg tablet 20 mg PO BID #60 tabs 06/03/23 [Rx Last Taken Unknown] diltiazem HCl 180 mg capsule,extended release 24 hr 180 mg PO DAILY #30 caps 06/03/23 [Rx Last Taken Unknown] famotidine 20 mg tablet 40 mg (2 x 20 mg) PO BID #60 tabs 06/03/23 [Rx Last Taken Unknown] lidocaine 5 % topical patch (Lidoderm) 2 patch topical DAILY #15 ea 06/10/23 [Rx Last Taken Unknown] aspirin 81 mg chewable tablet 81 mg PO BREAKFAST #0 tabs 06/30/23 [Rx Last Taken Unknown] insulin lispro 100 unit/mL subcutaneous pen (Humalog KwikPen (U-100) Insulin) See Protocol subcut ACHS #0 mL 06/30/23 [Rx Last Taken Unknown] loperamide 2 mg capsule 2 mg PO Q2H PRN PRN Diarrhea #0 caps 06/30/23 [Rx Last Taken Unknown] menthol 0.44 %-zinc oxide 20.6 % topical ointment (Calmoseptine) 1 applic topical 4X/DAY #0 grams 06/30/23 [Rx Last Taken Unknown] miconazole nitrate 2 % topical powder (Desenex) 1 applic topical TID #0 grams 06/30/23 [Rx Last Taken Unknown] furosemide 40 mg tablet (Lasix) 40 mg PO DAILY 09/21/23 [History Last Taken Unknown] nystatin 100,000 unit/gram topical powder (Klayesta) 1 applic topical TID #60 grams 09/21/23 [Rx Last Taken Unknown] potassium chloride 20 mEq tablet,extended release 20 meq PO DAILY supplement 09/21/23 [History Last Taken Unknown] Allergy/AdvReac Type Severity Reaction Status Date / Time latex Allergy Other Verified 09/21/23 05:30 Family History Father CVA (cerebral vascular accident) Mother Heart disease CAD (coronary artery disease) Sister CAD (coronary artery disease) Daughter CAD (coronary artery disease) Myocardial infarction Daughter Diabetes Surgical History H/O: hysterectomy History of back surgery History of cardiac catheterization History of carpal tunnel release History of coronary artery stent placement History of kyphoplasty History of permanent cardiac pacemaker placement (12/30/21) Hx of cholecystectomy Hx of knee surgery S/P hysterectomy Social History household members: none housing: house Smoking Status: Never smoker alcohol intake: never substance use type: does not use caffeine: No what type of physical activity do you participate in: none do you feel safe at home: Yes ROS ROS ED Review of Systems ROS Unobtainable: due to mental status Constitutional Constitutional ED: Denies chills or weight loss Eyes Eyes: Denies change in vision or diplopia ENT ENT ED: Denies ear pain, rhinorrhea or sore throat Cardiovascular Cardiovascular: Reports chest pain; Denies orthopnea, palpitations or racing heartbeat Respiratory/Chest Respiratory/Chest: Denies cough, dyspnea or orthopnea Gastrointestinal Gastrointestinal: Denies abdominal pain, diarrhea, nausea or vomiting Genitourinary Genitourinary ED: Denies dysuria, hematuria or urinary frequency Musculoskeletal Musculoskeletal: Reports other Details: Left forearm pain ; Denies arthralgias or myalgias Integumentary Reports rash; Denies abscess Neurologic Neurologic: Denies headache(s) or weakness Psychiatric Psychiatric: Denies anxiety, depression, suicidal ideation or suicidal thoughts Endocrine Endocrinology: Denies polydipsia, polyphagia or polyuria Allergic/Immunologic Allergic/Immunologic ED: Denies mouth swelling, tongue swelling or urticaria EXAM Physical Exam Const Vital Signs: 09/21/23 05:24 09/21/23 06:42 09/21/23 07:00 Temperature 96.9 F L Temperature Source Temporal Pulse Rate 97 97 96 Respiratory Rate 18 18 16 Blood Pressure 147/90 H 147/124 H 115/81 H Blood Pressure Mean 109 131 92 Pulse Ox 93 93 Oxygen Delivery Method Room Air Room Air Room Air Positive well nourished and well developed General Appearance ED: well developed HEENT Reports normocephalic, head/scalp atraumatic and moist mucous membranes Eyes PERRL and EOMs intact bilaterally Neck no lymphadenopathy, supple and no JVD Chest Wall Chest Narrative: Pacemaker left upper chest. Well-healed incision. No surrounding erythema. Patient does not complain of tenderness in the area. There are changes underneath the left breast of erythema and tenderness with moist tacky skin consistent with a skin candidiasis. The right breast demonstrates the moisture and tach Jimmy but no significant erythema at this time. Resp normal respiratory effort and clear to auscultation bilaterally Cardio regular rate, regular rhythm and no murmurs GI normal to inspection, nondistended, normoactive bowel sounds and non-tender Palpation: soft Back/Spine no CVA tenderness and normal ROM Extremity normal to inspection Extremity Narrative: Patient is pointing to the forearm flexor musculature as the area that hurts. It reproduces, rashes, deformity, tenderness, phlebitis. General Extremety ED: Negative for edema General Extremity: Negative for edema Neuro CN's II-XII intact bilaterally Sensorium / Orientation: alert and orientation impaired Motor Exam: strength 5/5 throughout Psych mental status grossly normal Mood & Affect: Negative for depressed or tearful Skin no wounds MDM MDM MDM Narrative Medical decision making narrative: My independent interpretation of the chest x-ray is no acute process. My independent interpretation of the plain films of the left forearm is chronic fractures of the distal radius and ulna. No acute findings. Basic blood work showed hemoglobin 11.9. Creatinine 2.98 with a BUN of 96. This is a significant change about the patient's baseline. CO2 19 sodium 142 glucose 121. History is no old overt infection. No bacteria seen 10-25 white cells but negative nitrates. Patient received a liter of IV fluids. I spoke with the patient and daughter regarding the above findings. Daughter tells me that hospice is already involved in her care. They need to become more involved in her care so that if they are not wanting emergency department/hospital visits they can discuss ways to avoid them. I well prescribe some nystatin powder for the candidal rash. History & Record Review Discussion w/independent historian: Patient and Family Lab Data Attestation: I reviewed the patient's lab results. Labs: Laboratory Results - last 24 hr 09/21/23 09/21/23 06:40 07:30 WBC 8.4 RBC 4.02 L Hgb 11.9 L Hct 36.9 L MCV 91.8 MCH 29.6 MCHC 32.2 RDW Std Deviation 53.3 H RDW Coeff of Aubrie 16.0 H Plt Count 198 MPV 11.3 Immature Gran % (Auto) 0.700 Neut % (Auto) 63.7 Lymph % (Auto) 22.3 Collin % (Auto) 9.8 Eos % (Auto) 2.8 Baso % (Auto) 0.7 Absolute Neuts (auto) 5.3 Absolute Lymphs (auto) 1.86 Nucleated RBC % 0 Sodium 142 Potassium 4.6 Chloride 115 H Carbon Dioxide 19.0 L Anion Gap 8 BUN 96 H Creatinine 2.98 H Estim Creat Clear Calc 10.27 Est GFR (MDRD) Af Amer 19 L Est GFR (MDRD) Non-Af 16 L BUN/Creatinine Ratio 32.2 H Glucose 121 H Calcium 9.5 Total Bilirubin 1.00 Direct Bilirubin 0.23 AST 17 ALT 18 Alkaline Phosphatase 67 Total Protein 7.1 Albumin 3.7 Globulin 3.4 Lipase 36 Urine Color Yellow Urine Clarity Sl. Cloudy Urine pH 5.0 Ur Specific [place] 1.015 Urine Protein 30 H Urine Glucose (UA) Normal Urine Ketones 5 H Urine Occult Blood 10 H Urine Nitrite Negative Urine Bilirubin 1 H Urine Urobilinogen Normal Ur Leukocyte Esterase 500 H Urine RBC 0 SEEN Urine WBC 10-25 SEEN Ur Squamous Epith Cells 0-5 SEEN Amorphous Sediment 1+ Urine Bacteria 0 SEEN Urine Mucus 0 SEEN Radiography Diagnostic Testing: Clinical Impression(s) from Imaging Studies Forearm X-Ray 09/21/23 05:43 IMPRESSION: 1. No acute abnormality. 2. Chronic fractures of the distal radius and ulna. Electronically Signed: Master Burt DO at 6:37 EST , Chest X-Ray 09/21/23 06:20 IMPRESSION: No evidence of acute cardiopulmonary disease. Electronically Signed: Master Burt DO at 6:34 EST , EKG Initial EKG: Attestation: I personally reviewed and interpreted this EKG as follows: Comments: Normal sinus rhythm with a left bundle branch block Discharge Plan Triage Chief Complaint: Chest Pain ED Provider: Trung Patiño Dx/Rx/DC Orders Clinical Impression: Acute dehydration, Left forearm pain, Candidiasis of skin, Acute renal failure, Chest pain Instructions: ED Aure Skin Infection (Adult) Prescriptions: New nystatin [Klayesta] 100,000 unit/gram powder 1 applic topical TID Qty: 60 0RF No Action sertraline 100 mg tablet 100 mg PO DAILY lisinopril 40 mg tablet 40 mg PO DAILY Prolia 60 mg/mL syringe 60 mg subcut [id number] Qty: 1 1RF Jardiance 10 mg tablet 10 mg PO DAILY Qty: 90 3RF (DME) blood sugar diagnostic Strip See Rx Instructions .ROUTE .MEDSUPPLY Rx Instructions: test three times a day (DME) blood-glucose meter Kit See Rx Instructions .ROUTE .MEDSUPPLY Rx Instructions: As directed Glucerna 1.2 Norman 0.06-1.2 gram-kcal/mL liquid 120 ml PO 4X/DAY atenolol 50 mg tablet 50 mg PO DAILY Rx Instructions: Take 1 tablet by mouth once daily for blood pressure lidocaine [Lidoderm] 5 % adhesive patch,medicated 2 patch topical DAILY Qty: 15 0RF Rx Instructions: leave on most painful area for up to 12 hrs furosemide [Lasix] 40 mg tablet 40 mg PO DAILY potassium chloride 20 mEq tablet extended release 20 meq PO DAILY Rx Instructions: Take 1 tablet by mouth once daily metformin 500 mg tablet 500 mg PO DAILY acetaminophen 325 mg Tablet 650 mg PO Q6H PRN PRN (Reason: Pain 1-10 Or Fever >100.7) Qty: 0 0RF diltiazem HCl 180 mg Capsule,Extended Release 24hr 180 mg PO DAILY Qty: 30 0RF famotidine 20 mg Tablet 40 mg PO BID Qty: 60 0RF dicyclomine 20 mg tablet 20 mg PO BID Qty: 60 0RF loperamide 2 mg Capsule 2 mg PO Q2H PRN PRN (Reason: Diarrhea) Qty: 0 0RF miconazole nitrate [Desenex] 2 % Powder 1 applic topical TID Qty: 0 0RF Protocol: *Topical Application Instructions APPLICATION INSTRUCTIONS: to affected regions aspirin 81 mg Tablet,Chewable 81 mg PO BREAKFAST Qty: 0 0RF menthol-zinc oxide [Calmoseptine] 0.44-20.6 % Ointment 1 applic topical 4X/DAY Qty: 0 0RF Protocol: *Topical Application Instructions APPLICATION INSTRUCTIONS: apply to affected region insulin lispro [Humalog KwikPen Insulin] 100 unit/mL Insulin Pen See Protocol subcut ACHS Qty: 0 0RF Protocol: 3. Sliding Scale Insulin Med Dosing Condition: 150-189 mg/dl = 1 unit Condition: 190-229 mg/dl = 2 units Condition: 230-269 mg/dl = 3 units Condition: 270-309 mg/dl = 4 units Condition: 310-349 mg/dl = 5 units Condition: 350-399 mg/dl = 6 units Condition: 400-449 mg/dl = 7 units Condition: Greater than 449 call physician Protocol Text: - Use for Total Daily Dose of Insulin 37-55 units - Obsese, infected, or steroid patients MEDIUM DOSING ALGORITHIM isosorbide mononitrate 60 mg tablet extended release 24 hr 60 mg PO DAILY Qty: 90 3RF Rx Instructions: Take 1 tablet by mouth once daily methimazole 5 mg tablet 2.5 mg PO DAILY Qty: 15 6RF cholecalciferol (vitamin D3) 1,250 mcg (50,000 unit) capsule 1,250 mcg PO QWEEK Qty: 12 1RF ferrous sulfate 325 mg (65 mg iron) tablet 325 mg PO BID Qty: 60 1RF Primary Care Provider: Mary Azevedo Referrals: Mary Azevedo MD [Primary Care Provider] - Activity Restrictions/Additional Instructions: Please continue to involve hospice/palliative care in the sharing of information regarding today's visit. As noted due to the significant decrease in oral intake you are having an increase in your BUN and your kidneys not functioning like they should. This will most likely worsen. As discussed, this becomes end-of-life care. The skin under each breast is starting to have changes consistent with skin candidiasis. Keeping the area dry by placing a towel/washcloth underneath each breast will help keep the area dry. I have prescribed a nystatin powder to assist in the fungal infection. Disposition Disposition: Home, Self Care
--- NOTE | 2023-09-21 06:20 | RAD_ITS ---
INDICATION: chest pain EXAMINATION/TECHNIQUE: X-RAY - XR Chest 1 View COMPARISON: 06/26/2023. FINDINGS: LINES/DEVICES: Cardiac pacer and leads are stable. LUNGS: No consolidation or evidence of an effusion. No evidence of edema or a pneumothorax. MEDIASTINUM AND CARDIOVASCULAR STRUCTURES: Cardiac silhouette is normal in size and contour. Mediastinum is unremarkable. BONES AND SOFT TISSUES: No acute abnormality. RAD/Chest 1 View (Portable) IMPRESSION: No evidence of acute cardiopulmonary disease. Electronically Signed: Master Burt DO at 6:34 EST ,
[2023-09-21 06:42] VITALS: BP 147/124; PULSE 97; RESP 18; O2SAT 93
--- NOTE | 2023-09-21 06:43 | ED.RN ---
RED EXCORIATED SKIN NOTED UNDER LEFT BREAST.
[2023-09-21 06:45] LABS: Bacteria 0 SEEN /hpf (None Seen); Mucous, Urine 0 SEEN /hpf (<or=2+); Red Blood Cells-Urine 0 SEEN /hpf (0-5)
[2023-09-21 07:00] VITALS: BP 115/81; PULSE 96; RESP 16; O2SAT 93
[2023-09-21 07:17] LABS: Color, Urine Yellow (Yellow); Glucose, Dipstick Normal (Normal); Ketone-Dipstick 5 mg/dl (Negative); Leukocyte Esterase-Dipstick 500 /ul (Negative); Nitrite-Dipstick Negative (Negative); Occult Blood-Urine 10 /ul (Negative); Protein-Dipstick 30 mg/dl (Negative); Specific Gravity, Urine 1.015 (1.002-1.030); Urine Clarity Sl. Cloudy (Clear); Urine Urobilinogen Normal (Normal)
[2023-09-21 07:23] LABS: Urine Bilirubin Dipstick 1 mg/dL (Negative)
[2023-09-21] MEDS: 0.9% Normal Saline (1000mL) 1,000 ML 999 ML IV (07:24)
[2023-09-21 07:25] LABS: Amorphous Sediment 1+; Squamous Epithelial Cells - UA 0-5 SEEN /hpf (5-10); White Blood Cells 10-25 SEEN /hpf (0-5)
[2023-09-21 07:36] LABS: Absolute Lymphocyte Count 1.86 X10^3/uL (0.83-4.51); Absolute Neutrophil Count 5.3 X10^3/uL (2.0-7.7); Basophil# 0.06 X10^3/uL; Basophil% 0.7 % (0-1); Eosinophil# 0.23 X10^3/uL; Eosinophils% 2.8 % (0-5); Hematocrit 36.9 % (37-47); Hemoglobin 11.9 g/dL (12.0-15.0); Lymphocyte # 1.86 X10^3/ul (0.83-4.51); Lymphocyte % 22.3 % (19-41); Mean Corp Hgb Conc 32.2 g/dL (32-36); Mean Corpuscular Hgb 29.6 pg (27.0-32.0); Mean Corpuscular Volume 91.8 fL (81-99); Mean Platelet Vol. 11.3 fl (6.2-12.0); Monocyte# 0.82 X10^3/uL; Monocyte% 9.8 % (0-10); NRBC Flagged by Analyzer 0 % (0-5); Neutrophil # 5.32 X10^3/uL (2.7-7.7); Neutrophil % 63.7 % (47-70); Platelet Count 198 K/mm3 (150-450); RBC Distribution Width SD 53.3 fl (35.1-43.9); Red Blood Count 4.02 M/mm3 (4.2-5.4); White Blood Count 8.4 K/mm3 (4.4-11.0)
[2023-09-21 08:00] VITALS: BP 118/83; PULSE 95; RESP 14; O2SAT 94
[2023-09-21 08:04] LABS: AST(SGOT) 17 U/L (15-37); Alanine Aminotransfer ALT/SGPT 18 U/L (13-56); Albumin, Serum 3.7 g/dL (3.2-5.0); Alkaline Phosphatase 67 U/L (45-117); Anion Gap 8 (5-15); BUN 96 mg/dL (7-18); BUN/Creat Ratio 32.2 RATIO (10-20); Bilirubin, Direct 0.23 mg/dL (0.00-0.30); Calcium,Total 9.5 mg/dL (8.5-10.1); Chloride 115 mmol/L (98-107); Creatinine, Serum 2.98 mg/dL (0.55-1.02); EST Glomerular Filtration Rate 16 mL/min (>60); Est Glom Filt Rate - Afr Amer 19 mL/min (>60); Estimated Creatinine Clearance 10.27 ml/min; Globulin 3.4 g/dL (2.2-4.2); Glucose 121 mg/dL (74-106); Lipase 36 U/L (13-75); Potassium 4.6 mmol/L (3.5-5.1); Protein, Total 7.1 g/dL (6.4-8.2); Sodium Level 142 mmol/L (136-145)
[2023-09-21 08:45] VITALS: BP 114/82; PULSE 97; RESP 18; TEMP 36.6; O2SAT 93
[2023-09-21 09:00] VITALS: BP 114/78; PULSE 98; RESP 16; TEMP 37; O2SAT 93
== END 2023-09-21 09:36 | disposition home or self-care (01) ==
PROVIDERS: Emergency Provider Emergency Medicine; PCP Internal Medicine; Visit Provider Emergency Medicine
DX: B37.2 Candidiasis of skin and nail (principal); N17.9 Acute kidney failure, unspecified; I11.0 Hypertensive heart disease with heart failure; I50.9 Heart failure, unspecified; E11.9 Type 2 diabetes mellitus without complications; S52.502A Unspecified fracture of the lower end of left radius, initial encounter for closed fracture; R07.9 Chest pain, unspecified; I25.10 Atherosclerotic heart disease of native coronary artery without angina pectoris; E78.5 Hyperlipidemia, unspecified; Z95.0 Presence of cardiac pacemaker; S52.202A Unspecified fracture of shaft of left ulna, initial encounter for closed fracture; X58.XXXA Exposure to other specified factors, initial encounter
CPT/HCPCS: 71045; 73090; 80048; 80076; 81001; 83690; 85025; 93005; 96360; 99285; J7030; A4216